=== PATIENT | female | born 1950 | race Caucasian/White ===

== ENCOUNTER 2017-09-17 12:07 | Inpatient (IN) | payer MEDICARE, SELFPAY ==
[2017-09-17 12:10] VITALS: BP 160/91; PULSE 78; PULSE 80; RESP 17; RESP 18; TEMP 36.9; O2SAT 97; O2SAT 98; BMI 29.1
--- NOTE | 2017-09-17 12:27 | ED.DCSUM_ITS ---
- ER Visit Summary Date of Service: 09/17/17 Chief Complaint: Abdominal pain with nausea vomiting History of Present Illness: The patient is a 67 F history of pancreatitis and hypertension. States the last 4-5 days she has had nausea vomiting decreased oral intake. With epigastric abdominal pain. Mild dysuria. No fever. No diarrhea constipation. No melena. She denies any prior abdominal surgeries. Physical Examination: Older female no acute distress. Vital signs are stable afebrile. Pulse ox 90% on room air no signs of hypoxia. HEENT exam shows dry mucous members. Neck nontender no lymphadenopathy. Lungs clear to auscultation bilaterally. Heart regular rate and rhythm no murmur. Abdomen is soft and nondistended. Normal bowel sounds no peritoneal signs. Mild epigastric tenderness. No pulsatile mass. No hernias or masses. No signs of obstruction. Positive bowel sounds. Extremities moves all 4. Neurovascular intact. Back exam nontender. Neurologically she is awake alert without focal motor deficits. Test Results: CBC normal. BMP normal. Liver enzymes are slightly elevated lipase elevated at 3306 consistent with acute pancreatitis. Urine shows 25-50 white cells 1+ bacteria culture was sent. Here ultrasound is a fatty liver but no gallstones or sludge no signs of dilatation. Emergency Department Course and Treatment: Patient will screening labs obtained. She has had multiple CAT scans in the past I do not think that is necessary at this time. She will be treated with IV fluids for dehydration. Zofran for nausea and morphine for pain. Treatment Plan: Patient doing well repeat exam 1525. She will be given additional dose of morphine and be admitted for acute pancreatitis. I spoke to the hospitalist will be evaluated for admission. Disposition: Admission Impression: `Acute abdominal pain with nausea and vomiting urinary to acute and recurrent pancreatitis Dehydration This note was generated with [employer] dictation software. It may contain incorrect words, spelling, and punctuation that were not noted in review of the chart prior to signing ED Disposition - Plan for ED Patient: Chief Complaint: Abd Pain Referrals: Moreno Johnson MD [STAFF PHYSICIAN] -
[2017-09-17] MEDS: Morphine 4 MG/ML Syringe IV (12:50)
[2017-09-17] MEDS: 0.9% Normal Saline 1,000 ML 1000 ML IV (12:50)
[2017-09-17] MEDS: Ondansetron 4 MG/2 ML Vial IV (12:51)
[2017-09-17 13:04] LABS: Absolute Lymphocyte Count 0.42 X10^3/ul (0.83-4.51); Absolute Neutrophil Count 6.8 X10^3/uL (2.0-7.7); Basophil# 0.01 X10^3/uL; Basophil% 0.1 % (0-1); Differential Indicated SCAN CRITERIA MET; Eosinophil# 0.06 X10^3/uL; Eosinophils% 0.8 % (0-5); Hemoglobin 15.7 g/dl (12.0-15.0); Lymphocyte # 0.42 X10^3/ul (4.0); Lymphocyte % 5.4 % (19-41); Mean Corp Hgb Conc 33.4 g/gl (32-36); Mean Corpuscular Hgb 32.8 pg (27.0-32.0); Mean Corpuscular Volume 98.1 fL (81-99); Mean Platelet Vol. 8.8 fl (6.2-12.0); Monocyte# 0.56 X10^3/uL; Monocyte% 7.1 % (0-10); Neutrophil # 6.76 X10^3/uL (2.7-7.7); Neutrophil % 86.2 % (47-70); POSITIVE COUNT NO; POSITIVE DIFFERENTIAL YES; POSITIVE MORPHOLOGY NO; Platelet Count 217 K/mm3 (150-450); RBC Distribution Width CV 14.8 % (11.6-14.6); RBC Distribution Width SD 53.5 fl (35.1-43.9); Red Blood Count 4.79 M/mm3 (4.2-5.4); White Blood Count 7.8 K/mm3 (4.4-11.0)
[2017-09-17 13:22] LABS: AST(SGOT) 129 U/L (15-37); Alanine Aminotransfer ALT/SGPT 87 U/L (13-56); Albumin, Serum 3.5 g/dL (3.2-5.0); Alkaline Phosphatase 248 U/L (45-117); Anion Gap 15 (5-15); BUN 10 mg/dL (7-18); BUN/Creat Ratio 18.6 RATIO (10-20); Calcium,Total 8.9 mg/dL (8.5-10.1); Chloride 100 mmol/L (98-107); Creatinine, Serum 0.54 mg/dL (0.55-1.02); EST Glomerular Filtration Rate 120 mL/min (>60); Est Glom Filt Rate - Afr Amer 145 mL/min (>60); Estimated Creatinine Clearance 47.78 ml/min; Globulin 4.1 g/dL (2.2-4.2); Glucose 90 mg/dL (74-106); Lipase 3306 U/L (73-393); Potassium 4.6 mmol/L (3.5-5.1); Protein, Total 7.6 g/dL (6.4-8.2); Sodium Level 136 mmol/L (136-145)
[2017-09-17 13:35] VITALS: BP 140/72; PULSE 71; RESP 16; O2SAT 95
--- NOTE | 2017-09-17 13:37 | CASEMGMT ---
Social Work Note In to complete initial assessment as pt is an anticipated admission. Introduced self and role at [facility]. Pt known to SW from past admissions. Pt reports to live alone in a two-story home with 22 steps to second floor. States that she mainly lives off of the second floor and slides down the steps due to her back pain. DME consists of a cane which she uses at baseline. Pt states that she has had severe back pain for 4-5 days. Pt has been to [facility] in the past and admits that it helped her to regain strength and she would consider returning if needed. Pt mentions little income and inquire if she has applied for Medicaid. Pt states that she has not, but only makes $323/month through social security. Pt agreeable to submit a Medicaid application and inform that if she completes prior to discharge staff could fax in to [facility] for her. Pt expresses understanding. Denies substance use, although since pt is known to SW from past admissions there is a hx of ETOH abuse. Pt does report symptoms of depression, but denies any diagnoses. Educate to behavioral health through [facility] and pt is agreeable to consult and meeting with them on this admission. Pt claims that she does not have a PCP as her last two had left the [facility]. She has made two appointments with Dr. Watson, but has cancelled them as she has been too painful to transport herself there. Provide the pt with a Medicaid application and list of accepting area PCPs. Pt thanks SW and SW on accepting unit to follow for psychosocial needs. Donna Pardo, SACK LIFTER, RED HAT ENGINEER
[2017-09-17 13:54] LABS: Mucous, Urine 0 SEEN /hpf (<or=2+)
[2017-09-17 13:58] LABS: Color, Urine Yellow (Yellow); Glucose, Dipstick Normal (Normal); Leukocyte Esterase-Dipstick 500 /ul (Negative); Nitrite-Dipstick Negative (Negative); Occult Blood-Urine 10 /ul (Negative); Protein-Dipstick 30 mg/dl (Negative); Specific Gravity, Urine 1.025 (1.002-1.030); Urine Bilirubin Dipstick 1 mg/dL (Negative); Urine Clarity Sl. Cloudy (Clear); Urine Urobilinogen 1 mg/dl (Normal)
[2017-09-17 13:59] LABS: Ketone-Dipstick 150 mg/dl (Negative)
[2017-09-17 14:04] LABS: Bacteria 1+ /hpf (None Seen); Red Blood Cells-Urine 0-5 SEEN /hpf (0-5); Squamous Epithelial Cells - UA 0-5 SEEN /hpf (5-10); White Blood Cells 25-50 SEEN /hpf (0-5)
--- NOTE | 2017-09-17 15:43 | US_ITS ---
STUDY: ABDOMINAL ULTRASOUND - RIGHT UPPER QUADRANT REASON FOR VISIT: Female, 67 years old. Pain. Elevated liver function tests. Abdominal pain. Elevated liver function tests. TECHNIQUE: Ultrasound evaluation of the right upper quadrant was performed with real-time and static worthy-scale imaging. TECHNICAL QUALITY: Adequate. COMPARISON: Ultrasound May 21, 2017. CT May 24, 2017. FINDINGS: Liver: The liver measures 18.7 cm. There is increased echogenicity consistent with fatty infiltration. The bile ducts are within normal limits. There is hepatic color flow. The direction of portal flow is hepatopetal. There is a 1.1 cm cyst in the right lobe. Gallbladder: Normal distended gallbladder. The gallbladder wall measures 2 mm. There is a negative sonographic Anaya's sign. There is no pericholecystic fluid. There are no gallstones. Common Bile Duct (C.B.D.): The common bile duct measures 4 mm. Pancreas: Normal size of the head, body and tail of the pancreas. There is normal echogenicity of the pancreas. There is no demonstrated pancreatic mass or cyst. Right Kidney: Normal size of the right kidney. The right kidney measures 10.3 cm. Normal renal cortex. The right cortex measures 1.3 cm. There is no demonstrated renal mass or cyst. There is no right hydronephrosis. US/Gallbladder IMPRESSION: Fatty infiltration of the liver. No gallstones or biliary dilatation. Electronically Signed: Anil Villatoro MD at 16:58 EDT , Service support ,
[2017-09-17 16:23] VITALS: BP 135/69; PULSE 57; RESP 16; O2SAT 95
[2017-09-17 16:37] VITALS: BP 137/71; PULSE 80; RESP 16; O2SAT 96
[2017-09-17] MEDS: morphine 8 MG/ML Syringe 6 MG IV (16:50)
[2017-09-17 16:56] VITALS: BMI 29.1
--- NOTE | 2017-09-17 17:23 | PCM.HP.STD ---
Problem List (1) Rheumatoid arthritis Status: Chronic (2) Psoriasis Status: Chronic (3) Chronic back pain Status: Chronic Comment: osteoarthritis (4) Magnesium deficiency Status: Chronic (5) Acute pancreatitis Status: Acute (6) Bipolar disorder Status: Chronic (7) Hypothyroidism Status: Chronic History of Present Illness Date of Admission: 09/17/17 Chief Complaint: abdominal pain The patient is a 67 year old F presents with a several day history of abdominal pain. Was not getting better and so presented to the emergency room. Patient had a lipase greater than 3000. Patient said that her symptoms are similar to her previous bouts of pancreatitis. Patient denies any alcohol use and says that her last drink of alcohol was 2 or 3 years ago. It was recommended the patient follow up with gastroenterology in regards to her pancreatitis. This is recommended when I see the patient back in March, patient states that she does not know if she seen a doughnut machine operator helper but thinks that she probably has not. Patient wants to know why she has pancreatitis but does not know if she seen a doughnut machine operator helper or not. [] Past Medical History Past Medical History (Chronic Problems): Chronic Problems Rheumatoid arthritis (Chronic) Psoriasis (Chronic) Chronic back pain (Chronic) osteoarthritis Magnesium deficiency (Chronic) Alcohol intoxication (Chronic) Drug overdose (Chronic) Delusional disorder (Chronic) Bipolar disorder (Chronic) Hypothyroidism (Chronic) Chronic alcohol use (Chronic) Depression with H/o suicidal attempt (Chronic) Allergies nickel [Nickel] Allergy (Verified 09/17/17 12:09) Rash Neuromuscular Blockers, Steroidal [Steroidal Neuromuscular Blockers] Adverse Reaction (Verified 09/17/17 17:07) ACTED WEIRD prochlorperazine edisylate [From Compazine] Adverse Reaction (Verified 09/17/17 12:09) disoriented prochlorperazine maleate [From Compazine] Adverse Reaction (Verified 09/17/17 17:07) DISORIENTED Home Medications: Ambulatory Orders Medication Instructions Recorded Levothyroxine [Synthroid] 75 mcg PO DAILY 01/31/17 Atenolol [Tenormin (beta rené)] 100 mg PO DAILY 05/20/17 Chlordiazepoxide [Librium] 25 mg PO TID PRN PRN #20 cap 05/27/17 Surgical History: no surgical history Psychiatric History: No pertinent psych hx MOTION PICTURE CAMERA OPERATOR History: No pertinent MOTION PICTURE CAMERA OPERATOR history Smoking Status: Current every day smoker Tobacco Use: Cigarettes - *Family History Maternal History Items: Unknown, No pertinent history Paternal History Items: Unknown Review of Systems Constitutional: Reports: Anorexia, Fever. Denies: Night Sweats Eyes: Denies: Blurred vision, Double vision HEENT: Reports: - - tinnitus. Denies: Difficulty Hearing Cardiovascular: Denies: Chest Pain, Chest Pressure Respiratory: Denies: Cough, Shortness of Breath, Shortness of breath at rest Gastrointestinal: Reports: Abdominal Pain, Nausea, Vomiting - with eating solid food. Genitourinary: Denies: Dysuria Musculoskeletal: Denies: Joint Pain, Joint Tenderness Skin: Denies: Rash, Wounds Neurological: Denies: Numbness, Tingling, Focal weakness Psychiatric: Denies: Anxiety, Depression Hematologic/ Lymphatic: Denies: Easy Bruising, Easy Bleeding, Hx of blood clot VTE Information - Inpt Only VTE Present on Admission: No VTE Pharm Prophylaxis ordered?: Yes - Physical Exam General: Alert, Cooperative, No apparent distress HEENT: Atraumatic, Normocephalic Neck: No Nodes, Thyroid Normal Size and Texture Lungs: Clear to auscultation, Normal air movement, No rhonchi, No wheeze Cardiovascular: Regular rate, Regular Rhythm, Normal S1, Normal S2, No murmurs Abdomen: Bowel Sounds Present, Soft, Non-Distended, Tender - But not much abdominal pain with distraction., Pain seems to be more diffuse and really epigastric. Extremities: No edema, No Calf Tenderness Skin: No rashes, No breakdown Psych/Mental Status: Normal Affect, Appropriate Vital Signs Temp Pulse Resp BP Pulse Ox 36.9 C 80 16 137/71 H 96 09/17/17 12:10 09/17/17 16:37 09/17/17 16:37 09/17/17 16:37 09/17/17 16:37 Oxygen Delivery Method Room Air Weight: 79.379 kg Body Mass Index (BMI) 29.1 Finger Stick Blood Glucose 103 Laboratory Tests Past 24 Hrs 09/17/17 09/17/17 09/17/17 12:52 12:52 13:50 WBC 7.8 RBC 4.79 Hgb 15.7 H Hct 47.0 MCV 98.1 MCH 32.8 H MCHC 33.4 RDW 14.8 H RDW Differential 53.5 H Plt Count 217 MPV 8.8 Immature Gran % (Auto) 0.400 Neut % (Auto) 86.2 H Lymph % (Auto) 5.4 L [place] % (Auto) 7.1 Eos % (Auto) 0.8 Baso % (Auto) 0.1 Absolute Neuts (auto) 6.8 Absolute Lymphs (auto) 0.42 L Total Counted Not Reportable Sodium 136 Potassium 4.6 Chloride 100 Carbon Dioxide 21.0 Anion Gap 15 BUN 10 Creatinine 0.54 L Estim Creat Clear Calc 47.78 Est GFR (MDRD) Af Amer 145 Est GFR (MDRD) Non-Af 120 BUN/Creatinine Ratio 18.6 Glucose 90 Calcium 8.9 Total Bilirubin 1.10 H Direct Bilirubin 0.40 H AST 129 H ALT 87 H Alkaline Phosphatase 248 H Total Protein 7.6 Albumin 3.5 Globulin 4.1 Lipase 3306 H Urine Color Yellow Urine Clarity Sl. Cloudy Urine pH 6.0 Ur Specific [place] 1.025 Urine Protein 30 H Urine Glucose (UA) Normal Urine Ketones 150 H Urine Occult Blood 10 H Urine Nitrite Negative Urine Bilirubin 1 H Urine Urobilinogen 1 H Ur Leukocyte Esterase 500 H Urine RBC 0-5 SEEN Urine WBC 25-50 SEEN Ur Squamous Epith Cells 0-5 SEEN Urine Bacteria 1+ Urine Mucus 0 SEEN Assessment/Plan 1. Acute pancreatitis Ultrasound was negative for any gallstones. Patient denies any alcohol the past 2 or 3 years and patient's last documented positive alcohol level was in 2014. Patient has a reported diagnosis of multiple autoimmune diseases, such as rheumatoid arthritis and psoriasis. The patient has had a positive NAIN but it did not specify the titer but negative anti-CCP and RF Patient was recommended to follow-up with gastroenterology when I had seen her in March 2017. Seems the patient has not actually seen gastroenterology stating that it is difficult her for her to go to doctors even though that was 6 months ago. If still continue to recommend that she follow gastroenterology for further evaluation and see if she has some anatomic derangements causing this pancreatitis or even possibly an autoimmune process. 2. Dysphagia She underwent upper endoscopy back in January 2017 that showed showed some gastritis. No other abnormality was noted and patient was negative for H. pylori. Patient endorsing that she still having issues regards to solid food. 3. Rheumatoid arthritis, psoriasis. Recommend patient follow-up with rheumatology as outpatient. 4. DVT proph: LMWH. Code Visit Inpatient E&M: 80365 Init Hosp L2
--- NOTE | 2017-09-17 17:34 | HP.PCM_ITS ---
Problem List (1) Rheumatoid arthritis Status: Chronic (2) Psoriasis Status: Chronic (3) Chronic back pain Status: Chronic Comment: osteoarthritis (4) Magnesium deficiency Status: Chronic (5) Acute pancreatitis Status: Acute (6) Bipolar disorder Status: Chronic (7) Hypothyroidism Status: Chronic History of Present Illness Date of Admission: 09/17/17 Chief Complaint: abdominal pain The patient is a 67 year old F presents with a several day history of abdominal pain. Was not getting better and so presented to the emergency room. Patient had a lipase greater than 3000. Patient said that her symptoms are similar to her previous bouts of pancreatitis. Patient denies any alcohol use and says that her last drink of alcohol was 2 or 3 years ago. It was recommended the patient follow up with gastroenterology in regards to her pancreatitis. This is recommended when I see the patient back in March, patient states that she does not know if she seen a protective signal repairer helper but thinks that she probably has not. Patient wants to know why she has pancreatitis but does not know if she seen a protective signal repairer helper or not. [] Past Medical History Past Medical History (Chronic Problems): Chronic Problems Rheumatoid arthritis (Chronic) Psoriasis (Chronic) Chronic back pain (Chronic) osteoarthritis Magnesium deficiency (Chronic) Alcohol intoxication (Chronic) Drug overdose (Chronic) Delusional disorder (Chronic) Bipolar disorder (Chronic) Hypothyroidism (Chronic) Chronic alcohol use (Chronic) Depression with H/o suicidal attempt (Chronic) Allergies nickel [Nickel] Allergy (Verified 09/17/17 12:09) Rash Neuromuscular Blockers, Steroidal [Steroidal Neuromuscular Blockers] Adverse Reaction (Verified 09/17/17 17:07) ACTED WEIRD prochlorperazine edisylate [From Compazine] Adverse Reaction (Verified 09/17/17 12:09) disoriented prochlorperazine maleate [From Compazine] Adverse Reaction (Verified 09/17/17 17 :07) DISORIENTED Home Medications: Ambulatory Orders Medication Instructions Recorded Levothyroxine [Synthroid] 75 mcg PO DAILY 01/31/17 Atenolol [Tenormin (beta rené)] 100 mg PO DAILY 05/20/17 Chlordiazepoxide [Librium] 25 mg PO TID PRN PRN #20 cap 05/27/17 Surgical History: no surgical history Psychiatric History: No pertinent psych hx RESIDENTIAL TREATMENT STAFF History: No pertinent RESIDENTIAL TREATMENT STAFF history Smoking Status: Current every day smoker Tobacco Use: Cigarettes - *Family History Maternal History Items: Unknown, No pertinent history Paternal History Items: Unknown Review of Systems Constitutional: Reports: Anorexia, Fever. Denies: Night Sweats Eyes: Denies: Blurred vision, Double vision HEENT: Reports: - - tinnitus. Denies: Difficulty Hearing Cardiovascular: Denies: Chest Pain, Chest Pressure Respiratory: Denies: Cough, Shortness of Breath, Shortness of breath at rest Gastrointestinal: Reports: Abdominal Pain, Nausea, Vomiting - with eating solid food. Genitourinary: Denies: Dysuria Musculoskeletal: Denies: Joint Pain, Joint Tenderness Skin: Denies: Rash, Wounds Neurological: Denies: Numbness, Tingling, Focal weakness Psychiatric: Denies: Anxiety, Depression Hematologic/ Lymphatic: Denies: Easy Bruising, Easy Bleeding, Hx of blood clot VTE Information - Inpt Only VTE Present on Admission: No VTE Pharm Prophylaxis ordered?: Yes - Physical Exam General: Alert, Cooperative, No apparent distress HEENT: Atraumatic, Normocephalic Neck: No Nodes, Thyroid Normal Size and Texture Lungs: Clear to auscultation, Normal air movement, No rhonchi, No wheeze Cardiovascular: Regular rate, Regular Rhythm, Normal S1, Normal S2, No murmurs Abdomen: Bowel Sounds Present, Soft, Non-Distended, Tender - But not much abdominal pain with distraction., Pain seems to be more diffuse and really epigastric. Extremities: No edema, No Calf Tenderness Skin: No rashes, No breakdown Psych/Mental Status: Normal Affect, Appropriate Vital Signs Temp Pulse Resp BP Pulse Ox 36.9 C 80 16 137/71 H 96 09/17/17 12:10 09/17/17 16:37 09/17/17 16:37 09/17/17 16:37 09/17/17 16:37 Oxygen Delivery Method Room Air Weight: 79.379 kg Body Mass Index (BMI) 29.1 Finger Stick Blood Glucose 103 Laboratory Tests Past 24 Hrs 09/17/17 09/17/17 09/17/17 12:52 12:52 13:50 WBC 7.8 RBC 4.79 Hgb 15.7 H Hct 47.0 MCV 98.1 MCH 32.8 H MCHC 33.4 RDW 14.8 H RDW Differential 53.5 H Plt Count 217 MPV 8.8 Immature Gran % (Auto) 0.400 Neut % (Auto) 86.2 H Lymph % (Auto) 5.4 L [place] % (Auto) 7.1 Eos % (Auto) 0.8 Baso % (Auto) 0.1 Absolute Neuts (auto) 6.8 Absolute Lymphs (auto) 0.42 L Total Counted Not Reportable Sodium 136 Potassium 4.6 Chloride 100 Carbon Dioxide 21.0 Anion Gap 15 BUN 10 Creatinine 0.54 L Estim Creat Clear Calc 47.78 Est GFR (MDRD) Af Amer 145 Est GFR (MDRD) Non-Af 120 BUN/Creatinine Ratio 18.6 Glucose 90 Calcium 8.9 Total Bilirubin 1.10 H Direct Bilirubin 0.40 H AST 129 H ALT 87 H Alkaline Phosphatase 248 H Total Protein 7.6 Albumin 3.5 Globulin 4.1 Lipase 3306 H Urine Color Yellow Urine Clarity Sl. Cloudy Urine pH 6.0 Ur Specific [place] 1.025 Urine Protein 30 H Urine Glucose (UA) Normal Urine Ketones 150 H Urine Occult Blood 10 H Urine Nitrite Negative Urine Bilirubin 1 H Urine Urobilinogen 1 H Ur Leukocyte Esterase 500 H Urine RBC 0-5 SEEN Urine WBC 25-50 SEEN Ur Squamous Epith Cells 0-5 SEEN Urine Bacteria 1+ Urine Mucus 0 SEEN Assessment/Plan 1. Acute pancreatitis * Ultrasound was negative for any gallstones. * Patient denies any alcohol the past 2 or 3 years and patient's last documented positive alcohol level was in 2014. * Patient has a reported diagnosis of multiple autoimmune diseases, such as rheumatoid arthritis and psoriasis. The patient has had a positive NAIN but it did not specify the titer but negative anti-CCP and RF * Patient was recommended to follow-up with gastroenterology when I had seen her in March 2017. Seems the patient has not actually seen gastroenterology stating that it is difficult her for her to go to doctors even though that was 6 months ago. If still continue to recommend that she follow gastroenterology for further evaluation and see if she has some anatomic derangements causing this pancreatitis or even possibly an autoimmune process. 2. Dysphagia * She underwent upper endoscopy back in January 2017 that showed showed some gastritis. No other abnormality was noted and patient was negative for H. pylori. * Patient endorsing that she still having issues regards to solid food. 3. Rheumatoid arthritis, psoriasis. * Recommend patient follow-up with rheumatology as outpatient. 4. DVT proph: LMWH. Code Visit Inpatient E&M: 44250 Init Hosp L2
[2017-09-17 18:41] VITALS: BMI 25.5
[2017-09-17 18:42] VITALS: BP 125/59; PULSE 72; RESP 16; TEMP 36.8; O2SAT 98
[2017-09-17] MEDS: 0.9% Normal Saline 1,000 ML 150 ML IV (20:35)
[2017-09-17] MEDS: chlordiazePOXIDE 25 MG Capsule PO (23:01)
[2017-09-17] MEDS: HYDROcodone Bitartrate/Apap 5/325 Tablet PO (23:19)
[2017-09-17 23:29] VITALS: BP 123/71; PULSE 70; RESP 17; TEMP 36.5; O2SAT 97
[2017-09-18] MEDS: 0.9% Normal Saline 1,000 ML 150 ML IV ×4 (01:38→21:57)
[2017-09-18 03:06] VITALS: BP 140/74; PULSE 71; RESP 17; TEMP 36.1; O2SAT 96
[2017-09-18] MEDS: Morphine 2 MG/ML Syringe IV ×4 (03:13→21:59)
[2017-09-18] MEDS: Levothyroxine 75 MCG Tablet PO (05:25)
[2017-09-18] MEDS: HYDROcodone Bitartrate/Apap 5/325 Tablet PO ×3 (06:10→19:44)
[2017-09-18] MEDS: chlordiazePOXIDE 25 MG Capsule PO ×2 (06:12→15:16)
[2017-09-18 06:32] LABS: ALB/GLOB Ratio 0.8 RATIO (0.9-2.4); AST(SGOT) 72 U/L (15-37); Alanine Aminotransfer ALT/SGPT 61 U/L (13-56); Albumin, Serum 2.7 g/dL (3.2-5.0); Alkaline Phosphatase 180 U/L (45-117); Anion Gap 12 (5-15); BUN 8 mg/dL (7-18); BUN/Creat Ratio 16.4 RATIO (10-20); Calcium,Total 7.7 mg/dL (8.5-10.1); Chloride 105 mmol/L (98-107); Creatinine, Serum 0.49 mg/dL (0.55-1.02); EST Glomerular Filtration Rate 134 mL/min (>60); Est Glom Filt Rate - Afr Amer 162 mL/min (>60); Estimated Creatinine Clearance 47.78 ml/min; Globulin 3.6 g/dL (2.2-4.2); Glucose 88 mg/dL (74-106); Lipase 1275 U/L (73-393); Protein, Total 6.3 g/dL (6.4-8.2); Sodium Level 139 mmol/L (136-145)
[2017-09-18 08:00] VITALS: BP 135/85; PULSE 70; RESP 16; TEMP 36.5; O2SAT 96
[2017-09-18] MEDS: Atenolol 100 MG Tablet PO (08:09)
[2017-09-18] MEDS: Enoxaparin 40 MG/0.4 ML Syringe SC (08:09)
--- NOTE | 2017-09-18 09:46 | CASEMGMT ---
Social Work Note SW met with pt to follow up with discharge planning. Health Tech Kirsten Pardo, PROFESSIONAL SKATEBOARDER, SNUFF PACKING MACHINE OPERATOR saw pt in ED for initial assessment. SW confirmed with pt that she is agreeable for behavior health referral and pt is. SW asked pt if she had completed the medicaid application that was provided to her and pt states she hasn't yet. SW states that if she would like this worker to assist her with completing it to let staff know and if she does complete it to let staff know and this worker will fax in the application to [facility]. Pt was receptive to this and states understanding. Pt denied needing assistance to complete application at this time. SAM placed call to [facility] Behavior[facility] and gave referral to Pantera who states that he will see pt today. Pt's plan is to return home at discharge. Plan: Behavioral Health to see pt today. Pt return home at discharge Jeanette Wright PROFESSIONAL SKATEBOARDER, SNUFF PACKING MACHINE OPERATOR
[2017-09-18] MEDS: 0.9% NaCl Peripheral Flush Adult/Peds IV ×2 (11:09→15:17)
--- NOTE | 2017-09-18 13:23 | PCM.PROGNOTE ---
Subjective: Patient seen and examined. Tolerating clear liquid diet. Denies nausea, emesis. States abdominal pain is improved. Denies other complaints. - Physical Exam General: Alert, Oriented x3, Cooperative, No apparent distress HEENT: Atraumatic, PERRLA, EOMI, Normocephalic Neck: Supple, No JVD, Negative Carotid Bruits Lungs: Clear to auscultation, Normal air movement Cardiovascular: Regular rate, Regular Rhythm, Normal S1, Normal S2, No murmurs Abdomen: Bowel Sounds Present, Soft, Non-Distended, Tender Extremities: No clubbing, No cyanosis, No edema, Capillary Refill Less than 3 Seconds Skin: No rashes, No breakdown Musculoskeletal: No Tenderness to Palpation of Joints or Extremities Neurological: Cranial nerves II-XII grossly intact, Neuro grossly intact Psych/Mental Status: Normal Affect, Appropriate Vital Signs Temp Pulse Resp BP Pulse Ox 97.7 F L 70 16 135/85 H 96 09/18/17 08:00 09/18/17 08:00 09/18/17 08:00 09/18/17 08:00 09/18/17 08:00 Oxygen Delivery Method Room Air Weight: 69.717 kg Body Mass Index (BMI) 25.5 Intake and Output for Last 24 Hours 09/16/17 09/17/17 09/18/17 23:59 23:59 23:59 Intake Total 1105 / 1105 1958 / 1958 Output Total 400 / 400 Balance 1105 / 1105 1558 / 1558 Laboratory Tests Past 24 Hrs 09/18/17 05:05 Sodium 139 Potassium 4.0 Chloride 105 Carbon Dioxide 22.0 Anion Gap 12 BUN 8 Creatinine 0.49 L Estim Creat Clear Calc 47.78 Est GFR (MDRD) Af Amer 162 Est GFR (MDRD) Non-Af 134 BUN/Creatinine Ratio 16.4 Glucose 88 Calcium 7.7 L Total Bilirubin 0.70 AST 72 H ALT 61 H Alkaline Phosphatase 180 H Total Protein 6.3 L Albumin 2.7 L Globulin 3.6 Albumin/Globulin Ratio 0.8 L Lipase 1275 H Medical Necessity - Tobacco Use Smoking Status: Current every day smoker Tobacco Use: Cigarettes Assessment/Plan 1. 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 Gallbladder ultrasound on admission showed fatty infiltration of liver. No gallstones or biliary dilatation. CT of abdomen previously May 2017 showed acute pancreatitis, no other abnormality. Patient denies recent alcohol use and states she has not drank alcohol since she was a kid. However, she was admitted May 2017 for alcohol withdrawal, alcoholic encephalopathy and acute recurrent pancreatitis. No alcohol level was drawn on admission. Patient was recommended to follow-up with gastroenterology at previous discharge and has failed to follow-up. She states it is difficult for her to get to appointments. Check IgG subclass 4. Discussed with patient importance of outpatient follow-up with gastroenterology to establish the etiology of recurrent pancreatitis. Continue clear liquid diet. IV fluids. Lipase reduced to 1275 from 3306 on admission. Trend lipase. AST/ALT trending down. Alkaline phosphatase trending down. Continue to monitor. Continue as needed morphine for pain and Zofran as needed for nausea. 2. Dysphasia, chronic-patient states this has been ongoing. Upper endoscopy in January 2017 showed gastritis. No other abnormality. Negative for H. pylori. Patient states she continues to feel like food is getting stuck. Consult speech therapy. 3. History of chronic alcohol use-denies recent use. Behavioral health to assess patient today. No alcohol level drawn on admission. 4. Tobacco dependence-encourage smoking cessation. 5. Hypertension-stable, continue home atenolol regimen. 6. Hypothyroidism-continue Synthroid. 7. Rheumatoid arthritis/psoriasis-previously on prednisone/methotrexate regimen. Fails to follow-up with timber management technician. Recommend continued outpatient follow-up. 8. Depression/bipolar disorder-history of suicidal attempt. Not on home regimen. Behavioral health to assess patient today. DVT prophylaxis-Lovenox subcu. Discharge planning: Patient wishes to be discharged to shelter facility. CM involved. This patient was seen by CLAUDIA Roblero under the supervision of Dr. Ruggiero.
--- NOTE | 2017-09-18 13:44 | PN_ITS ---
Subjective: Patient seen and examined. Tolerating clear liquid diet. Denies nausea, emesis. States abdominal pain is improved. Denies other complaints. - Physical Exam General: Alert, Oriented x3, Cooperative, No apparent distress HEENT: Atraumatic, PERRLA, EOMI, Normocephalic Neck: Supple, No JVD, Negative Carotid Bruits Lungs: Clear to auscultation, Normal air movement Cardiovascular: Regular rate, Regular Rhythm, Normal S1, Normal S2, No murmurs Abdomen: Bowel Sounds Present, Soft, Non-Distended, Tender Extremities: No clubbing, No cyanosis, No edema, Capillary Refill Less than 3 Seconds Skin: No rashes, No breakdown Musculoskeletal: No Tenderness to Palpation of Joints or Extremities Neurological: Cranial nerves II-XII grossly intact, Neuro grossly intact Psych/Mental Status: Normal Affect, Appropriate Vital Signs Temp Pulse Resp BP Pulse Ox 97.7 F L 70 16 135/85 H 96 09/18/17 08:00 09/18/17 08:00 09/18/17 08:00 09/18/17 08:00 09/18/17 08:00 Oxygen Delivery Method Room Air Weight: 69.717 kg Body Mass Index (BMI) 25.5 Intake and Output for Last 24 Hours 09/16/17 09/17/17 09/18/17 23:59 23:59 23:59 Intake Total 1105 / 1105 1958 / 1958 Output Total 400 / 400 Balance 1105 / 1105 1558 / 1558 Laboratory Tests Past 24 Hrs 09/18/17 05:05 Sodium 139 Potassium 4.0 Chloride 105 Carbon Dioxide 22.0 Anion Gap 12 BUN 8 Creatinine 0.49 L Estim Creat Clear Calc 47.78 Est GFR (MDRD) Af Amer 162 Est GFR (MDRD) Non-Af 134 BUN/Creatinine Ratio 16.4 Glucose 88 Calcium 7.7 L Total Bilirubin 0.70 AST 72 H ALT 61 H Alkaline Phosphatase 180 H Total Protein 6.3 L Albumin 2.7 L Globulin 3.6 Albumin/Globulin Ratio 0.8 L Lipase 1275 H Medical Necessity - Tobacco Use Smoking Status: Current every day smoker Tobacco Use: Cigarettes Assessment/Plan 1. 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 Gallbladder ultrasound on admission showed fatty infiltration of liver. No gallstones or biliary dilatation. CT of abdomen previously May 2017 showed acute pancreatitis, no other abnormality. Patient denies recent alcohol use and states she has not drank alcohol since she was a kid. However, she was admitted May 2017 for alcohol withdrawal , alcoholic encephalopathy and acute recurrent pancreatitis. No alcohol level was drawn on admission. Patient was recommended to follow-up with gastroenterology at previous discharge and has failed to follow-up. She states it is difficult for her to get to appointments. Check IgG subclass 4. Discussed with patient importance of outpatient follow-up with gastroenterology to establish the etiology of recurrent pancreatitis. Continue clear liquid diet. IV fluids. Lipase reduced to 1275 from 3306 on admission. Trend lipase. AST/ALT trending down. Alkaline phosphatase trending down. Continue to monitor. Continue as needed morphine for pain and Zofran as needed for nausea. 2. Dysphasia, chronic-patient states this has been ongoing. Upper endoscopy in January 2017 showed gastritis. No other abnormality. Negative for H. pylori. Patient states she continues to feel like food is getting stuck. Consult speech therapy. 3. History of chronic alcohol use-denies recent use. Behavioral health to assess patient today. No alcohol level drawn on admission. 4. Tobacco dependence-encourage smoking cessation. 5. Hypertension-stable, continue home atenolol regimen. 6. Hypothyroidism-continue Synthroid. 7. Rheumatoid arthritis/psoriasis-previously on prednisone/methotrexate regimen. 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 Recommend continued outpatient follow-up. 8. Depression/bipolar disorder-history of suicidal attempt. Not on home regimen. Behavioral health to assess patient today. DVT prophylaxis-Lovenox subcu. Discharge planning: Patient wishes to be discharged to [facility] facility. CM involved. This patient was seen by CLAUDIA Roblero under the supervision of Dr. Ruggiero.
--- NOTE | 2017-09-18 14:30 | BH.NOTE ---
BH: Inpatient Note - Notes Behavioral Health Inpatient Note: 09/18/17 14:30 Referral to [facility] due to depressive symptoms. Met with pt in her room. Alert and oriented. Pleasant and cooperative. Denies any suicidal ideations, plan, or intent. Denies any HI or psychosis. Hx of Alcohol abuse however pt denies any recent alcohol use. Not currently linked with providers. Hx of treatment at [facility] with last appointment 4 years ago. 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 She has a folder with educational pamphlets on auto-immune conditions, journal articles on effects of nickel on women, and information on appropriate levels of nickel in the water. She discussed how her father was allergic to nickel and she believes that some of her chronic medical conditions are the result of her nickel allergy (with the belief she has consumed nickel through the water). She has verbalized this to all of her providers. She reports that it is frustrating that her symptoms aren't improving. In her papers she also has information on conversion reactions. We talked about this for several minutes. Admits to isolating at home and dwelling and ruminating on somatic concerns which ultimately increase her depression, anxiety, and make her medical symptoms worse. SHows some insights however is reluctant to follow-up with outpatient appointments. Primary obstacles are reported to be mobility and pain. Reports that she has trouble getting to outpatient appointments on a consistent basis. We discussed outpatient options. Gave her referrals to [facility] and [facility] which are minutes from her house. Gave her [facility] resources which she could periodically attend to decrease isolation. Recommended decreasing isolation which would improve mood and decrease rumination on somatic issues. Will talk with social work as [facility] could be helpful.
[2017-09-18 15:07] VITALS: BP 132/73; PULSE 69; RESP 16; TEMP 37.2; O2SAT 96
[2017-09-18 15:35] LABS: Mucous, Urine 0 SEEN /hpf (<or=2+); Red Blood Cells-Urine 0 SEEN /hpf (0-5); Squamous Epithelial Cells - UA 0 SEEN /hpf (5-10); White Blood Cells 0 SEEN /hpf (0-5)
[2017-09-18 15:39] LABS: Color, Urine Yellow (Yellow); Glucose, Dipstick Normal (Normal); Ketone-Dipstick 50 mg/dl (Negative); Leukocyte Esterase-Dipstick Negative /ul (Negative); Nitrite-Dipstick Positive (Negative); Occult Blood-Urine Negative /ul (Negative); Protein-Dipstick Negative (Negative); Specific Gravity, Urine 1.015 (1.002-1.030); Urine Bilirubin Dipstick Negative (Negative); Urine Clarity Clear (Clear); Urine Urobilinogen 1 mg/dl (Normal)
[2017-09-18 15:52] LABS: Bacteria 2+ /hpf (None Seen)
[2017-09-18 21:48] VITALS: BP 156/82; PULSE 79; RESP 14; TEMP 36.5; O2SAT 100
[2017-09-19] MEDS: chlordiazePOXIDE 25 MG Capsule PO ×3 (00:14→15:23)
[2017-09-19] MEDS: Temazepam 15 MG Capsule PO (00:14)
[2017-09-19] MEDS: 0.9% Normal Saline 1,000 ML 150 ML IV ×2 (04:30→11:22)
[2017-09-19 05:03] VITALS: BP 166/92; PULSE 84; RESP 18; TEMP 36.4; O2SAT 97
[2017-09-19] MEDS: Morphine 2 MG/ML Syringe IV (05:04)
[2017-09-19] MEDS: 0.9% NaCl Peripheral Flush Adult/Peds IV (05:05)
[2017-09-19] MEDS: Levothyroxine 75 MCG Tablet PO (05:10)
[2017-09-19 07:28] LABS: ALB/GLOB Ratio 0.7 RATIO (0.9-2.4); AST(SGOT) 73 U/L (15-37); Alanine Aminotransfer ALT/SGPT 53 U/L (13-56); Albumin, Serum 2.3 g/dL (3.2-5.0); Alkaline Phosphatase 202 U/L (45-117); Anion Gap 8 (5-15); BUN 3 mg/dL (7-18); BUN/Creat Ratio 10.2 RATIO (10-20); Calcium,Total 7.9 mg/dL (8.5-10.1); Chloride 112 mmol/L (98-107); Creatinine, Serum 0.29 mg/dL (0.55-1.02); EST Glomerular Filtration Rate 240 mL/min (>60); Est Glom Filt Rate - Afr Amer 290 mL/min (>60); Estimated Creatinine Clearance 47.78 ml/min; Globulin 3.3 g/dL (2.2-4.2); Glucose 90 mg/dL (74-106); Lipase 814 U/L (73-393); Potassium 3.6 mmol/L (3.5-5.1); Protein, Total 5.6 g/dL (6.4-8.2); Sodium Level 143 mmol/L (136-145)
[2017-09-19 08:00] VITALS: BP 157/83; PULSE 78; RESP 16; TEMP 36.6; O2SAT 95
[2017-09-19] MEDS: HYDROcodone Bitartrate/Apap 5/325 Tablet PO ×3 (08:03→21:20)
[2017-09-19] MEDS: Atenolol 100 MG Tablet PO (08:04)
[2017-09-19] MEDS: Enoxaparin 40 MG/0.4 ML Syringe SC (08:05)
--- NOTE | 2017-09-19 10:30 | CASEMGMT ---
Addendum entered by Jeanette Wrigth 09/19/17 10:53: SW placed call to Tish and per Tish she would have a bed in TCU for tomorrow. SW informed pt that pt will be ready for discharge tomorrow. Tish states that she will have to check pt's information and will get back with this worker. Tish states though that if everything checks out with pt, she will be able to come to TCU tomorrow. SW informed pt of this. Plan: TCU Tomorrow Original Note: Social Work Note SW met with pt to discuss discharge planning. Pt states that she can't go home at this time and is asking about placement. Pt states that she has been at [facility] before but states that she doesn't want to go back there. SW informed pt of other facilities located in [place]. Pt states that she would like to try the TCU in the hospital. SW states that this worker will have to check with bed availability and will let pt know. SW placed call to Cee in TCU and left a message. SW attempted to call Tish but this worker got a busy tone. SW will continue to try to get a hold of either Cee or Tish to ask about bed availability. Careers Adviser will continue to follow to assist with discharge planning. Plan: TCU pending acceptance Jeanette Wright REGIONAL DRIVER, OPEN SOAPER TENDER
--- NOTE | 2017-09-19 11:21 | PCM.PROGNOTE ---
Subjective: Patient seen and examined. Complains of generalized abdominal pain. States oral pain medication does not work for her and that IV morphine as the only thing that helps her pain. She is tolerating diet without nausea, emesis. She is agreeable to TCU at discharge. - Physical Exam General: Alert, Oriented x3, Cooperative, No apparent distress HEENT: Atraumatic, PERRLA, EOMI, Normocephalic Neck: Supple, No JVD, Negative Carotid Bruits Lungs: Clear to auscultation, Normal air movement Cardiovascular: Regular rate, Regular Rhythm, Normal S1, Normal S2, No murmurs Abdomen: Bowel Sounds Present, Soft, Non-Distended, Tender - Generalized TTP. Extremities: No clubbing, No cyanosis, No edema, Capillary Refill Less than 3 Seconds Skin: No rashes, No breakdown Musculoskeletal: No Tenderness to Palpation of Joints or Extremities Neurological: Cranial nerves II-XII grossly intact, Neuro grossly intact Psych/Mental Status: Anxious, Depressed Vital Signs Temp Pulse Resp BP Pulse Ox 97.9 F 78 16 157/83 H 95 09/19/17 08:00 09/19/17 08:00 09/19/17 08:00 09/19/17 08:00 09/19/17 08:00 Oxygen Delivery Method Room Air Weight: 69.717 kg Body Mass Index (BMI) 25.5 Intake and Output for Last 24 Hours 09/17/17 09/18/17 09/19/17 23:59 23:59 23:59 Intake Total 1105 / 1105 2673 / 2673 3250 / 3250 Output Total 630 / 630 300 / 300 Balance 1105 / 1105 2043 / 2043 2950 / 2950 Laboratory Tests Past 24 Hrs 09/18/17 09/19/17 09/19/17 15:25 05:10 05:10 Sodium 143 Potassium 3.6 Chloride 112 H Carbon Dioxide 23.0 Anion Gap 8 BUN 3 L Creatinine 0.29 L Estim Creat Clear Calc 47.78 Est GFR (MDRD) Af Amer 290 Est GFR (MDRD) Non-Af 240 BUN/Creatinine Ratio 10.2 Glucose 90 Calcium 7.9 L Total Bilirubin 0.50 AST 73 H ALT 53 Alkaline Phosphatase 202 H Total Protein 5.6 L Albumin 2.3 L Globulin 3.3 Albumin/Globulin Ratio 0.7 L Lipase 814 H Urine Color Yellow Urine Clarity Clear Urine pH 6.0 Ur Specific [place] 1.015 Urine Protein Negative Urine Glucose (UA) Normal Urine Ketones 50 H Urine Occult Blood Negative Urine Nitrite Positive H Urine Bilirubin Negative Urine Urobilinogen 1 H Ur Leukocyte Esterase Negative Urine RBC 0 SEEN Urine WBC 0 SEEN Ur Squamous Epith Cells 0 SEEN Urine Bacteria 2+ Urine Mucus 0 SEEN IgG Total Pending IgG1 Pending IgG2 Pending IgG3 Pending IgG4 Pending Medical Necessity - Tobacco Use Smoking Status: Current every day smoker Tobacco Use: Cigarettes Assessment/Plan 1. 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 Suspect alcoholic pancreatitis given improvement and liver profile. Gallbladder ultrasound on admission showed fatty infiltration of liver. No gallstones or biliary dilatation. CT of abdomen previously May 2017 showed acute pancreatitis, no other abnormality. Patient denies recent alcohol use and states she has not drank alcohol since she was a kid. However, she was admitted May 2017 for alcohol withdrawal, alcoholic encephalopathy and acute recurrent pancreatitis. No alcohol level was drawn on admission. Patient was recommended to follow-up with gastroenterology at previous discharge and has failed to follow-up. She states it is difficult for her to get to appointments. IgG subclass 4 pending. Discussed with patient importance of outpatient follow-up with gastroenterology to establish the etiology of recurrent pancreatitis. Patient tolerating low-fat diet. Lipase reduced to 814 from 3306 on admission. Continue as needed pain regimen and anti-emetics. Behavioral health assessed patient due to depression. She denied recent alcohol use to them as well. 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 2. Dysphasia, chronic-patient states this has been ongoing. Upper endoscopy in January 2017 showed gastritis. No other abnormality. Negative for H. pylori. Patient states she continues to feel like food is getting stuck. Speech therapy evaluation pending. 3. History of chronic alcohol use/alcoholic hepatitis-denies recent use. AST 129/ALT 87 on admission. ALT now within normal limits. AST 73. Suspect patient is continuing to use alcohol. 4. Tobacco dependence-encourage smoking cessation. 5. Hypertension-stable, continue home atenolol regimen. 6. Hypothyroidism-continue Synthroid. Check TSH. 7. Rheumatoid arthritis/psoriasis-previously on prednisone/methotrexate regimen. 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 Recommend continued outpatient follow-up. 8. Depression/bipolar disorder-history of suicidal attempt. Not on home regimen. Behavioral health assessed patient. She was given referrals for [facility] and [facility] as well as [facility]. Continue outpatient follow-up. DVT prophylaxis-Lovenox subcu. Discharge planning: TCU at discharge pending qualifying stay. DC tomorrow. This patient was seen by CLAUDIA Roblero under the supervision of Dr. Ruggiero.
--- NOTE | 2017-09-19 11:32 | PN_ITS ---
Subjective: Patient seen and examined. Complains of generalized abdominal pain. States oral pain medication does not work for her and that IV morphine as the only thing that helps her pain. She is tolerating diet without nausea, emesis. She is agreeable to TCU at discharge. - Physical Exam General: Alert, Oriented x3, Cooperative, No apparent distress HEENT: Atraumatic, PERRLA, EOMI, Normocephalic Neck: Supple, No JVD, Negative Carotid Bruits Lungs: Clear to auscultation, Normal air movement Cardiovascular: Regular rate, Regular Rhythm, Normal S1, Normal S2, No murmurs Abdomen: Bowel Sounds Present, Soft, Non-Distended, Tender - Generalized TTP. Extremities: No clubbing, No cyanosis, No edema, Capillary Refill Less than 3 Seconds Skin: No rashes, No breakdown Musculoskeletal: No Tenderness to Palpation of Joints or Extremities Neurological: Cranial nerves II-XII grossly intact, Neuro grossly intact Psych/Mental Status: Anxious, Depressed Vital Signs Temp Pulse Resp BP Pulse Ox 97.9 F 78 16 157/83 H 95 09/19/17 08:00 09/19/17 08:00 09/19/17 08:00 09/19/17 08:00 09/19/17 08:00 Oxygen Delivery Method Room Air Weight: 69.717 kg Body Mass Index (BMI) 25.5 Intake and Output for Last 24 Hours 09/17/17 09/18/17 09/19/17 23:59 23:59 23:59 Intake Total 1105 / 1105 2673 / 2673 3250 / 3250 Output Total 630 / 630 300 / 300 Balance 1105 / 1105 2043 / 2043 2950 / 2950 Laboratory Tests Past 24 Hrs 09/18/17 09/19/17 09/19/17 15:25 05:10 05:10 Sodium 143 Potassium 3.6 Chloride 112 H Carbon Dioxide 23.0 Anion Gap 8 BUN 3 L Creatinine 0.29 L Estim Creat Clear Calc 47.78 Est GFR (MDRD) Af Amer 290 Est GFR (MDRD) Non-Af 240 BUN/Creatinine Ratio 10.2 Glucose 90 Calcium 7.9 L Total Bilirubin 0.50 AST 73 H ALT 53 Alkaline Phosphatase 202 H Total Protein 5.6 L Albumin 2.3 L Globulin 3.3 Albumin/Globulin Ratio 0.7 L Lipase 814 H Urine Color Yellow Urine Clarity Clear Urine pH 6.0 Ur Specific [place] 1.015 Urine Protein Negative Urine Glucose (UA) Normal Urine Ketones 50 H Urine Occult Blood Negative Urine Nitrite Positive H Urine Bilirubin Negative Urine Urobilinogen 1 H Ur Leukocyte Esterase Negative Urine RBC 0 SEEN Urine WBC 0 SEEN Ur Squamous Epith Cells 0 SEEN Urine Bacteria 2+ Urine Mucus 0 SEEN IgG Total Pending IgG1 Pending IgG2 Pending IgG3 Pending IgG4 Pending Medical Necessity - Tobacco Use Smoking Status: Current every day smoker Tobacco Use: Cigarettes Assessment/Plan 1. 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 Suspect alcoholic pancreatitis given improvement and liver profile. Gallbladder ultrasound on admission showed fatty infiltration of liver. No gallstones or biliary dilatation. CT of abdomen previously May 2017 showed acute pancreatitis, no other abnormality. Patient denies recent alcohol use and states she has not drank alcohol since she was a kid. However, she was admitted May 2017 for alcohol withdrawal, alcoholic encephalopathy and acute recurrent pancreatitis. No alcohol level was drawn on admission. Patient was recommended to follow-up with gastroenterology at previous discharge and has failed to follow-up. She states it is difficult for her to get to appointments. IgG subclass 4 pending. Discussed with patient importance of outpatient follow-up with gastroenterology to establish the etiology of recurrent pancreatitis. Patient tolerating low-fat diet. Lipase reduced to 814 from 3306 on admission. Continue as needed pain regimen and anti -emetics. Behavioral health assessed patient due to depression. She denied recent alcohol use to them as well. 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 2. Dysphasia, chronic-patient states this has been ongoing. Upper endoscopy in January 2017 showed gastritis. No other abnormality. Negative for H. pylori. Patient states she continues to feel like food is getting stuck. Speech therapy evaluation pending. 3. History of chronic alcohol use/alcoholic hepatitis-denies recent use. AST 129/ALT 87 on admission. ALT now within normal limits. AST 73. Suspect patient is continuing to use alcohol. 4. Tobacco dependence-encourage smoking cessation. 5. Hypertension-stable, continue home atenolol regimen. 6. Hypothyroidism-continue Synthroid. Check TSH. 7. Rheumatoid arthritis/psoriasis-previously on prednisone/methotrexate regimen. 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 Recommend continued outpatient follow-up. 8. Depression/bipolar disorder-history of suicidal attempt. Not on home regimen. Behavioral health assessed patient. She was given referrals for [facility] and [facility] as well as [facility]. Continue outpatient follow- up. DVT prophylaxis-Lovenox subcu. Discharge planning: TCU at discharge pending qualifying stay. DC tomorrow. This patient was seen by CLAUDIA Roblero under the supervision of Dr. Ruggiero.
[2017-09-19 12:13] LABS: Thyroid Stim Hormone (TSH) 4.15 uIU/mL (0.358-3.74)
--- NOTE | 2017-09-19 12:21 | CASEMGMT ---
Addendum entered by Jeanette Wright 09/19/17 12:39: SW asked pt if there was anyone that she wanted this worker to call and notify of discharge plans. Per pt she is unsure at this time if she wants this worker to notify anyone. Pt's brother is listed as next of kin but pt unsure if she wants him notified. SAM put note on green sheet to have staff check with pt before discharges to TCU tomorrow if she wants anybody to be notified of discharge. Plan: TCU tomorrow Jeanette BEAR, FLOOR PLAN ADJUSTER Original Note: Social Work Note Tish with inpatient rehab/TCU called this worker to ask this worker if pt has been at a SNF in the past 30 days. This worker states that this worker is unsure. SAM states that this worker does know that in the past pt was at [facility] but unsure when her last day was at [facility]. SAM informed Tish that this worker will find out and let her know. SAM met with pt to ask when her last day was at [facility]. Per pt she is unsure. SAM asked pt if this worker could call [facility] and get the date that she was last at their facility and pt gave approval. SAM called [facility]. Per [facility] pt's discharge date was June 20, 2017. SAM called Tish back and informed her of this. Per Tish she is able to take pt tomorrow in TCU. Green sheet on pt's chart. Plan: TCU tomorrow Jeanette BEAR, FLOOR PLAN ADJUSTER
[2017-09-19 15:54] VITALS: BP 156/91; PULSE 75; RESP 16; TEMP 36.4; O2SAT 93
[2017-09-19 21:14] VITALS: BP 150/83; PULSE 79; RESP 20; TEMP 36.6; O2SAT 97
[2017-09-19] MEDS: Ondansetron 4 MG/2 ML Vial IV (21:19)
[2017-09-20] MEDS: chlordiazePOXIDE 25 MG Capsule PO ×2 (00:19→10:03)
[2017-09-20] MEDS: 0.9% Normal Saline 1,000 ML 75 ML IV (00:20)
[2017-09-20 03:31] VITALS: BP 156/82; PULSE 78; RESP 16; TEMP 36.6; O2SAT 92
[2017-09-20] MEDS: HYDROcodone Bitartrate/Apap 5/325 Tablet PO ×2 (03:47→10:03)
[2017-09-20] MEDS: Levothyroxine 75 MCG Tablet PO (06:27)
[2017-09-20] MEDS: Ondansetron 4 MG/2 ML Vial IV ×2 (06:27→10:03)
[2017-09-20 07:44] LABS: ALB/GLOB Ratio 0.7 RATIO (0.9-2.4); AST(SGOT) 110 U/L (15-37); Alanine Aminotransfer ALT/SGPT 71 U/L (13-56); Albumin, Serum 2.3 g/dL (3.2-5.0); Alkaline Phosphatase 208 U/L (45-117); Anion Gap 7 (5-15); BUN 4 mg/dL (7-18); BUN/Creat Ratio 10.9 RATIO (10-20); Calcium,Total 8.3 mg/dL (8.5-10.1); Chloride 113 mmol/L (98-107); Creatinine, Serum 0.37 mg/dL (0.55-1.02); EST Glomerular Filtration Rate 186 mL/min (>60); Est Glom Filt Rate - Afr Amer 225 mL/min (>60); Estimated Creatinine Clearance 47.78 ml/min; Globulin 3.1 g/dL (2.2-4.2); Glucose 130 mg/dL (74-106); Lipase 507 U/L (73-393); Potassium 3.3 mmol/L (3.5-5.1); Protein, Total 5.4 g/dL (6.4-8.2); Sodium Level 144 mmol/L (136-145)
[2017-09-20 07:54] VITALS: BP 153/91; PULSE 70; RESP 18; TEMP 36.5; O2SAT 95
--- NOTE | 2017-09-20 08:56 | TREXTCA.CO_ITS ---
- Diet 09/19/17 08:05 Diet: Cardiac/Low Cholesterol Food consistency:: Soft Liquid Consistency:: Regular/Thin Is pt able to select menu?: Yes - Routine Orders/Code Status Suppository Type: Dulcolax 10mg Suppository Frequency: Daily PRN Routine Lab Work: BMP, - - In 3 days and then Q week Code Status: Full Code - Therapies Weight Bearing: Full weight bearing Physical Therapy: Eval and Treat Occupational Therapy: Eval and Treat Speech Therapy: Eval and Treat - Allergies/Procedures Done in Hospital Allergies/Adverse Reactions: Allergies nickel [Nickel] Allergy (Verified 09/17/17 12:09) Rash Neuromuscular Blockers, Steroidal [Steroidal Neuromuscular Blockers] Adverse Reaction (Verified 09/17/17 17:07) ACTED WEIRD prochlorperazine edisylate [From Compazine] Adverse Reaction (Verified 09/17/17 12:09) disoriented prochlorperazine maleate [From Compazine] Adverse Reaction (Verified 09/17/17 17 :07) DISORIENTED Procedures: None - Type of Care/Length of Stay Estimated LOS: Convalescent Care Less Than 30 days Type of Care Needed: Skilled Rehab Potential: Good Prognosis: Good - Additional Orders/Day of Discharge H&P will serve as current which was dated: 09/17/17 Day of Discharge: 09/20/17 - Dietary and Speech Recommendations Dietitian Recommendations/Changes: Rec adv diet as tolerated to low fat, no gastric stimulant. Will provide Ensure Clear w/ medpass. - Follow Up Care Primary Care Physician: Moreno Johnson MD [STAFF PHYSICIAN] - Please follow up with your Primary Care Physician in: 1-2 Weeks Please Follow Up With: Joe Mendieta MD - Gastroenterology When: 1-2 Weeks Please Follow Up With: Bottom Presser When: 2-4 Weeks
--- NOTE | 2017-09-20 08:58 | PCM.DC.SUM ---
<Donna Carrington - Last Filed: 09/20/17 09:07> Discharge Date and Diagnosis Date of Admission: 09/17/17 Date of Discharge: 09/20/17 - Primary Discharge Diagnosis 1. Acute recurrent pancreatitis-suspected alcoholic pancreatitis. - Secondary Discharge Diagnosis Chronic Problems Rheumatoid arthritis (Chronic) Psoriasis (Chronic) Chronic back pain (Chronic) osteoarthritis Magnesium deficiency (Chronic) Alcohol intoxication (Chronic) Drug overdose (Chronic) Delusional disorder (Chronic) Bipolar disorder (Chronic) Hypothyroidism (Chronic) Chronic alcohol use (Chronic) Depression with H/o suicidal attempt (Chronic) Hospital Course and Treatment Imaging Results: Diagnostic Data Gallbladder Ultrasound 09/17/17 15:43 IMPRESSION: Fatty infiltration of the liver. No gallstones or biliary dilatation. Electronically Signed: Anil Villatoro MD at 16:58 EDT , Service support , Operations: None Procedures: None Summary of Care Provided: Patient is a 67-year-old female admitted 09/17/17 due to abdominal pain. She has a past medical history of chronic alcohol use, rheumatoid arthritis, psoriasis, depression, bipolar, hypertension, hypothyroidism, tobacco dependence. 1. 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 Suspect alcoholic pancreatitis given improvement and liver profile. Gallbladder ultrasound on admission showed fatty infiltration of liver. No gallstones or biliary dilatation. CT of abdomen previously May 2017 showed acute pancreatitis, no other abnormality. Patient denies recent alcohol use and states she has not drank alcohol since she was a kid. However, she was admitted May 2017 for alcohol withdrawal, alcoholic encephalopathy and acute recurrent pancreatitis. No alcohol level was drawn on admission. Patient was recommended to follow-up with gastroenterology at previous discharge and has failed to follow-up. She states it is difficult for her to get to appointments. IgG subclass 4 pending to assess for autoimmune pancreatitis. Discussed with patient importance of outpatient follow-up with gastroenterology to establish the etiology of recurrent pancreatitis. Patient tolerating low-fat diet. Lipase reduced to 507 from 3306 on admission. Behavioral health assessed patient due to depression. She denied recent alcohol use to them as well. She told behavioral health that she has conversion reactions and a severe allergy to nickel which she believes is the cause of some of her chronic medical conditions. Recommend patient follow-up with gastroenterology in 1-2 weeks. 2. Dysphasia, chronic-patient states this has been ongoing. Upper endoscopy in January 2017 showed gastritis. No other abnormality. Negative for H. pylori. Patient states she continues to feel like food is getting stuck. Speech therapy evaluated patient and did not recommend any further testing. Patient was noted to do well on regular textures and thin liquids. She can continue working with speech therapy at [facility]. 3. History of chronic alcohol use/alcoholic hepatitis-denies recent use. AST 129/ALT 87 on admission. AST/ALT significantly improved. Suspect patient is continuing to use alcohol. 4. Tobacco dependence-encourage smoking cessation. 5. Hypertension-stable, continue home atenolol regimen. 6. Hypothyroidism-continue Synthroid. TSH 4.15. Free T4 pending at discharge. Further monitoring and adjustment by primary care physician. 7. Rheumatoid arthritis/psoriasis-previously on prednisone/methotrexate regimen. Fails to follow-up with power station operator. Recommend continued outpatient follow-up. 8. Depression/bipolar disorder-history of suicidal attempt. Not on home regimen. Behavioral health assessed patient. She was [email or web address] well as [facility]. Continue outpatient follow-up. General: Alert, Oriented x3, Cooperative, No apparent distress HEENT: Atraumatic, PERRLA, EOMI, Normocephalic Neck: Supple, No JVD, Negative Carotid Bruits Lungs: Clear to auscultation, Normal air movement Cardiovascular: Regular rate, Regular Rhythm, Normal S1, Normal S2, No murmurs Abdomen: Bowel Sounds Present, Soft, Non-Distended, Tender - Generalized TTP. Extremities: No clubbing, No cyanosis, No edema, Capillary Refill Less than 3 Seconds Skin: No rashes, No breakdown Musculoskeletal: No Tenderness to Palpation of Joints or Extremities Neurological: Cranial nerves II-XII grossly intact, Neuro grossly intact Psych/Mental Status: Anxious, Depressed Patient seen and examined prior to discharge. Physical assessment as noted above. Patient is stable for discharge to transitional care unit. This patient was seen by CLAUDIA Roblero under the supervision of Dr. Paul. Home Medications: Medications to take at Discharge Levothyroxine [Synthroid] 75 mcg PO DAILY 01/31/17 Atenolol [Tenormin (beta rené)] 100 mg PO DAILY 05/20/17 Chlordiazepoxide [Librium] 25 mg PO TID PRN PRN #20 cap 05/27/17 Hydrocodone Bitart/Apap 5-325 [[place] 5/325] 1 - 2 tablet PO Q6H PRN PRN 5 Days tablet 09/20/17 Ondansetron HCl [Zofran] 4 mg PO Q6H PRN PRN #10 tab 09/20/17 Following Prescrptions Were Given to Patient: Ondansetron HCl [Zofran] 4 mg PO Q6H PRN PRN #10 tab PRN Reason: Nausea Primary Care Physician: Moreno Johnson MD [STAFF PHYSICIAN] - Please follow up with your Primary Care Physician in: 1-2 Weeks Please Follow Up With: Joe Mendieta MD - Gastroenterology When: 1-2 Weeks Please Follow Up With: Senior Java J2Ee Developer When: 2-4 Weeks Disposition: Alf facility Minutes spent on discharge:: 35 Patient Condition:: Stable Medical Necessity - Tobacco Use Smoking Status: Current every day smoker Tobacco Use: Cigarettes Meaningful Use Info Meaningful Use Diagnoses (Choose all that apply): None applicable <Moreno Paul - Last Filed: 09/20/17 09:23> Discharge Date and Diagnosis - Secondary Discharge Diagnosis Chronic Problems Rheumatoid arthritis (Chronic) Psoriasis (Chronic) Chronic back pain (Chronic) osteoarthritis Magnesium deficiency (Chronic) Alcohol intoxication (Chronic) Drug overdose (Chronic) Delusional disorder (Chronic) Bipolar disorder (Chronic) Hypothyroidism (Chronic) Chronic alcohol use (Chronic) Depression with H/o suicidal attempt (Chronic) Hospital Course and Treatment Summary of Care Provided: The patient is a 67 year old F comorbidities including hypothyroidism, rheumatoid arthritis, psoriasis with history of recurrent pancreatitis presented with acute exacerbation. Patient was placed on a monitored bed treated per protocol condition did improve. Patient was also found to be profoundly deconditioned requested for PT OT as well as geriatric social worker to assist with discharge planning [facility] approval was obtained Hospital course as detailed above by Donna Carrington Patient was seen and examined on the day of admission she was stable at the time of discharge Total time spent on discharge process 35 minutes. Code Visit Inpatient E&M: [id number] Disch Hosp
[2017-09-20] MEDS: Enoxaparin 40 MG/0.4 ML Syringe SC (09:02)
[2017-09-20] MEDS: Atenolol 100 MG Tablet PO (09:02)
--- NOTE | 2017-09-20 09:07 | DS.PCM_ITS ---
<Donna Carrington - Last Filed: 09/20/17 09:07> Discharge Date and Diagnosis Date of Admission: 09/17/17 Date of Discharge: 09/20/17 - Primary Discharge Diagnosis 1. Acute recurrent pancreatitis-suspected alcoholic pancreatitis. - Secondary Discharge Diagnosis Chronic Problems Rheumatoid arthritis (Chronic) Psoriasis (Chronic) Chronic back pain (Chronic) osteoarthritis Magnesium deficiency (Chronic) Alcohol intoxication (Chronic) Drug overdose (Chronic) Delusional disorder (Chronic) Bipolar disorder (Chronic) Hypothyroidism (Chronic) Chronic alcohol use (Chronic) Depression with H/o suicidal attempt (Chronic) Hospital Course and Treatment Imaging Results: Diagnostic Data Gallbladder Ultrasound 09/17/17 15:43 IMPRESSION: Fatty infiltration of the liver. No gallstones or biliary dilatation. Electronically Signed: Anil Villatoro MD at 16:58 EDT , Service support , Operations: None Procedures: None Summary of Care Provided: Patient is a 67-year-old female admitted 09/17/17 due to abdominal pain. She has a past medical history of chronic alcohol use, rheumatoid arthritis, psoriasis, depression, bipolar, hypertension, hypothyroidism, tobacco dependence. 1. 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 Suspect alcoholic pancreatitis given improvement and liver profile. Gallbladder ultrasound on admission showed fatty infiltration of liver. No gallstones or biliary dilatation. CT of abdomen previously May 2017 showed acute pancreatitis, no other abnormality. Patient denies recent alcohol use and states she has not drank alcohol since she was a kid. However, she was admitted May 2017 for alcohol withdrawal, alcoholic encephalopathy and acute recurrent pancreatitis. No alcohol level was drawn on admission. Patient was recommended to follow-up with gastroenterology at previous discharge and has failed to follow-up. She states it is difficult for her to get to appointments. IgG subclass 4 pending to assess for autoimmune pancreatitis. Discussed with patient importance of outpatient follow-up with gastroenterology to establish the etiology of recurrent pancreatitis. Patient tolerating low-fat diet. Lipase reduced to 507 from 3306 on admission. Behavioral health assessed patient due to depression. She denied recent alcohol use to them as well. She told behavioral health that she has conversion reactions and a severe allergy to nickel which she believes is the cause of some of her chronic medical conditions. Recommend patient follow-up with gastroenterology in 1-2 weeks. 2. Dysphasia, chronic-patient states this has been ongoing. Upper endoscopy in January 2017 showed gastritis. No other abnormality. Negative for H. pylori. Patient states she continues to feel like food is getting stuck. Speech therapy evaluated patient and did not recommend any further testing. Patient was noted to do well on regular textures and thin liquids. She can continue working with speech therapy at [facility]. 3. History of chronic alcohol use/alcoholic hepatitis-denies recent use. AST 129/ALT 87 on admission. AST/ALT significantly improved. Suspect patient is continuing to use alcohol. 4. Tobacco dependence-encourage smoking cessation. 5. Hypertension-stable, continue home atenolol regimen. 6. Hypothyroidism-continue Synthroid. TSH 4.15. Free T4 pending at discharge. Further monitoring and adjustment by primary care physician. 7. Rheumatoid arthritis/psoriasis-previously on prednisone/methotrexate regimen. Fails to follow-up with grounds and nursery specialist. Recommend continued outpatient follow-up. 8. Depression/bipolar disorder-history of suicidal attempt. Not on home regimen. Behavioral health assessed patient. [facility] was [facility] well [facility]. Continue outpatient follow- up. General: Alert, Oriented x3, Cooperative, No apparent distress HEENT: Atraumatic, PERRLA, EOMI, Normocephalic Neck: Supple, No JVD, Negative Carotid Bruits Lungs: Clear to auscultation, Normal air movement Cardiovascular: Regular rate, Regular Rhythm, Normal S1, Normal S2, No murmurs Abdomen: Bowel Sounds Present, Soft, Non-Distended, Tender - Generalized TTP. Extremities: No clubbing, No cyanosis, No edema, Capillary Refill Less than 3 Seconds Skin: No rashes, No breakdown Musculoskeletal: No Tenderness to Palpation of Joints or Extremities Neurological: Cranial nerves II-XII grossly intact, Neuro grossly intact Psych/Mental Status: Anxious, Depressed Patient seen and examined prior to discharge. Physical assessment as noted above. Patient is stable for discharge to transitional care unit. This patient was seen by CLAUDIA Roblero under the supervision of Dr. Paul. Home Medications: Medications to take at Discharge Levothyroxine [Synthroid] 75 mcg PO DAILY 01/31/17 Atenolol [Tenormin (beta rené)] 100 mg PO DAILY 05/20/17 Chlordiazepoxide [Librium] 25 mg PO TID PRN PRN #20 cap 05/27/17 Hydrocodone Bitart/Apap 5-325 [[place] 5/325] 1 - 2 tablet PO Q6H PRN PRN 5 Days tablet 09/20/17 Ondansetron HCl [Zofran] 4 mg PO Q6H PRN PRN #10 tab 09/20/17 Following Prescrptions Were Given to Patient: Ondansetron HCl [Zofran] 4 mg PO Q6H PRN PRN #10 tab PRN Reason: Nausea Primary Care Physician: Moreno Johnson MD [STAFF PHYSICIAN] - Please follow up with your Primary Care Physician in: 1-2 Weeks Please Follow Up With: Joe Mendieta MD - Gastroenterology When: 1-2 Weeks Please Follow Up With: Silk Screen Painter When: 2-4 Weeks Disposition: Half-Way facility Minutes spent on discharge:: 35 Patient Condition:: Stable Medical Necessity - Tobacco Use Smoking Status: Current every day smoker Tobacco Use: Cigarettes Meaningful Use Info Meaningful Use Diagnoses (Choose all that apply): None applicable <Moreno Paul - Last Filed: 09/20/17 09:23> Discharge Date and Diagnosis - Secondary Discharge Diagnosis Chronic Problems Rheumatoid arthritis (Chronic) Psoriasis (Chronic) Chronic back pain (Chronic) osteoarthritis Magnesium deficiency (Chronic) Alcohol intoxication (Chronic) Drug overdose (Chronic) Delusional disorder (Chronic) Bipolar disorder (Chronic) Hypothyroidism (Chronic) Chronic alcohol use (Chronic) Depression with H/o suicidal attempt (Chronic) Hospital Course and Treatment Summary of Care Provided: The patient is a 67 year old F comorbidities including hypothyroidism, rheumatoid arthritis, psoriasis with history of recurrent pancreatitis presented with acute exacerbation. Patient was placed on a monitored bed treated per protocol condition did improve. Patient was also found to be profoundly deconditioned requested for PT OT as well as 7th grade social studies teacher to assist with discharge planning patient was discharged to half-way facility once insurance approval was obtained Hospital course as detailed above by Donna Carrington Patient was seen and examined on the day of admission she was stable at the time of discharge Total time spent on discharge process 35 minutes. Code Visit Inpatient E&M: [id number] Disch Hosp
--- NOTE | 2017-09-20 11:13 | NURSING ---
Call placed to [facility] in TCU to give report, Nurse stated she would call this nurse back shortly to obtain report
--- NOTE | 2017-09-20 12:00 | CASEMGMT ---
Addendum entered and electronically signed by Perlita Rhodes 09/23/17 14:07: Have tried to reach the patient's brother, but no answer, only a generic answering machine. Handoff to oncology social work on TCU today, patient can be updated. -EM Dia, FLASK CARRIER Original Note: Social Work Unit - [facility]3 Patient to discharged to [facility] TCU today. Met with patient prior to discharge, following up whether patient wanted to have brother Chidi Law called. Patient took some time to think about this, then verbalized that would be okay to tell her brother of the discharge to TCU, but that does not really want the brother to come and visit. Will attempt to reach the brother. Plan: Discharge to [facility] TCU for skilled level of care. -EM Dia, FLASK CARRIER
[2017-09-20 14:44] LABS: T4 Free Direct 1.03 ng/dL (0.76-1.46)
[2017-09-22 12:07] LABS: IgG, Quant 567 mg/dL (700-1600); Immunoglobulin G, Subclass 1 291 mg/dL (248-810); Immunoglobulin G, Subclass 2 276 mg/dL (130-555); Immunoglobulin G, Subclass 3 61 mg/dL (15-102)
[2017-09-22 15:15] LABS: Immunoglobulin G, Subclass 4 85 mg/dL (2-96)
== END 2017-09-20 12:00 | disposition skilled nursing facility (03) | DRG 440 ==
LOC: ED 17:24 → MS3 17:35
PROVIDERS: Nurse Practitioner Family; Emergency Provider Emergency Medicine; Visit Provider Internal Medicine
DX: K85.20 Alcohol induced acute pancreatitis without necrosis or infection (principal); E83.42 Hypomagnesemia; K86.0 Alcohol-induced chronic pancreatitis; E86.0 Dehydration; F10.10 Alcohol abuse, uncomplicated; Y90.9 Presence of alcohol in blood, level not specified; F17.210 Nicotine dependence, cigarettes, uncomplicated; F31.9 Bipolar disorder, unspecified; F22 Delusional disorders; E03.9 Hypothyroidism, unspecified; I10 Essential (primary) hypertension; M06.9 Rheumatoid arthritis, unspecified; L40.9 Psoriasis, unspecified; R47.02 Dysphasia; K76.0 Fatty (change of) liver, not elsewhere classified; M19.90 Unspecified osteoarthritis, unspecified site; M54.9 Dorsalgia, unspecified; G89.29 Other chronic pain; Z87.19 Personal history of other diseases of the digestive system; Z91.5 Personal history of self-harm; Z86.59 Personal history of other mental and behavioral disorders; Z79.899 Other long term (current) drug therapy
CPT/HCPCS: 36415; 76705; 80048; 80053; 80076; 81001; 82784; 82787; 83690; 84439; 84443; 85025; 92526; 97110; 97116; 97161; 97166; 97530; 97802; 99284; J7030; A4216; J2405

== ENCOUNTER 2017-09-20 12:12 | Inpatient (IN) | payer MEDICARE, SELFPAY ==
[2017-09-20 13:00] VITALS: BP 143/84; PULSE 68; RESP 16; TEMP 31.8; O2SAT 94
--- NOTE | 2017-09-20 13:00 | NURSING ---
PT admitted to room 10 from [place] via wheelchair, oriented to room and call light system explained.
[2017-09-20 13:36] VITALS: BMI 26.7
[2017-09-20 13:44] VITALS: BMI 26.8
[2017-09-20] MEDS: HYDROcodone Bitartrate/Apap 5/325 Tablet PO ×2 (14:51→22:38)
[2017-09-20 15:38] VITALS: BP 159/84; PULSE 72; RESP 16; TEMP 36.9; O2SAT 96
--- NOTE | 2017-09-20 21:45 | PCM.HP.STD ---
Problem List (1) Abdominal pain Status: Acute (2) Nausea & vomiting Status: Acute (3) Alcohol abuse Status: Chronic (4) Hypertension Status: Chronic (5) Hypomagnesemia Status: Chronic (6) Hypothyroidism Status: Chronic (7) Anxiety Status: Chronic (8) Rheumatoid arthritis Status: Chronic (9) Psoriasis Status: Chronic (10) Acute pancreatitis Status: Acute (11) Drug overdose Status: Chronic (12) Delusional disorder Status: Chronic (13) Bipolar disorder Status: Chronic History of Present Illness Date of Admission: 09/20/17 Chief Complaint: Here for rehabilitation, strengthening, prior to discharge home alone. The patient is a 67 year old Female with below past medical history presented to [facility] Emergency Department 09/17/2017 with abdominal pain, nausea & vomiting. Nausea & vomiting, decreased oral intake x 4-5 days. Epigastric pain. CBCD okay, BMP okay, Lipase enzymes normal. Lipase 3306, UA 25 - 50 WBC, 1+ bacteria, urine cultured. Ultrasound showed fatty liver, no gallstones, no sludge. IV fluids, Zofran, Morphine. 09/17/2017 Admit to Hospital, pain control, IV fluids. Last positive alcohol level 2014. Positive NAIN, Negative Anti-CCP, Negative RF. EGD 01/2017 showed gastritis. 09/18/2017 Morphine PRN pain. Consulted speech therapy for dysphagia. Behavioral Health for alcohol abuse. Prednisone, MTX for rheumatoid arthritis in the past, not compliant with Rheumatology follow up. 09/19/2017 Pancreatitis secondary to alcohol versus autoimmune pancreatitis. Behavioral health suspects depression. Speech Therapy for dysphagia. Encourage smoking cessation. 09/20/2017 Speech Therapy recommends no additional testing. Recommend Behavioral Health for mental health issues. 09/20/2017 Admit to TCU for rehabilitation, strengthening, prior to discharge home alone. Past Medical History Past Medical History (Chronic Problems): Chronic Problems Alcohol abuse (Chronic) Hypertension (Chronic) Hypomagnesemia (Chronic) Hypothyroidism (Chronic) Anxiety (Chronic) Rheumatoid arthritis (Chronic) Psoriasis (Chronic) Chronic back pain (Chronic) osteoarthritis Magnesium deficiency (Chronic) Alcohol intoxication (Chronic) Drug overdose (Chronic) Delusional disorder (Chronic) Bipolar disorder (Chronic) Hypothyroidism (Chronic) Chronic alcohol use (Chronic) Depression with H/o suicidal attempt (Chronic) Allergies nickel [Nickel] Allergy (Verified 09/17/17 12:09) Rash Neuromuscular Blockers, Steroidal [Steroidal Neuromuscular Blockers] Adverse Reaction (Verified 09/17/17 17:07) ACTED WEIRD prochlorperazine edisylate [From Compazine] Adverse Reaction (Verified 09/17/17 12:09) disoriented prochlorperazine maleate [From Compazine] Adverse Reaction (Verified 09/17/17 17:07) DISORIENTED Home Medications: Ambulatory Orders Medication Instructions Recorded Levothyroxine [Synthroid] 75 mcg PO DAILY 01/31/17 Atenolol [Tenormin (beta rené)] 100 mg PO DAILY 05/20/17 Chlordiazepoxide [Librium] 25 mg PO TID PRN PRN #20 cap 05/27/17 Hydrocodone Bitart/Apap 5-325 1 - 2 tablet PO Q6H PRN PRN 5 Days 09/20/17 [[place] 5/325] tablet Ondansetron HCl [Zofran] 4 mg PO Q6H PRN PRN #10 tablet 09/20/17 Surgical History: no surgical history Psychiatric History: Anxiety, Bipolar, Depression, - - Alcohol Abuse. REHABILITATION COUNSELLOR History: No pertinent REHABILITATION COUNSELLOR history Lives: Alone Smoking Status: Current every day smoker Tobacco Use: Cigarettes Alcohol: Heavy - Suspected. Drugs: None - *Family History Maternal History Items: Unknown, No pertinent history Paternal History Items: Unknown Review of Systems Constitutional: Denies: Chills, Fever, Weight Change HEENT: Denies: Head Aches, Sinus Congestion, Sinus Drainage Cardiovascular: Denies: Chest Pain, Palpitations Respiratory: Denies: Cough, Shortness of breath at rest, Sputum production Gastrointestinal: Denies: Abdominal Pain, Nausea, Vomiting Genitourinary: Denies: Dysuria Musculoskeletal: Denies: Joint Pain, Joint Tenderness Skin: Denies: Rash, Wounds Neurological: Denies: Numbness, Tingling, Focal weakness Psychiatric: Denies: Anxiety, Depression, Homicidal Ideations, Suicidal Ideations Hematologic/ Lymphatic: Denies: Easy Bruising, Easy Bleeding VTE Information - Inpt Only VTE Present on Admission: No VTE Mechan Device Prophylaxis: Knee High NGUYEN Hose VTE Pharm Prophylaxis ordered?: Yes Patient Problems: Active and Suspected Problems Abdominal pain (Acute) Nausea & vomiting (Acute) - Physical Exam General: Alert, Oriented x3, Cooperative HEENT: Atraumatic, PERRLA, EOMI, Normocephalic Neck: Supple, No JVD, Negative Carotid Bruits Lungs: Clear to auscultation, Normal air movement Cardiovascular: Regular rate, No murmurs Abdomen: Bowel Sounds Present, Soft, Non Tender Extremities: No edema, Capillary Refill Less than 3 Seconds Skin: No rashes, No breakdown Musculoskeletal: No Tenderness to Palpation of Joints or Extremities Neurological: Cranial nerves II-XII grossly intact Psych/Mental Status: Normal Affect, Appropriate Vital Signs Temp Pulse Resp BP Pulse Ox 98.4 F 72 16 159/84 H 96 09/20/17 15:38 09/20/17 15:38 09/20/17 15:38 09/20/17 15:38 09/20/17 15:38 Oxygen Delivery Method Room Air Weight: 73 kg Body Mass Index (BMI) 26.7 Finger Stick Blood Glucose 103 Intake and Output for Last 24 Hours 09/18/17 09/19/17 09/20/17 23:59 23:59 23:59 Intake Total 180 / 180 Balance 180 / 180 Assessment/Plan Active and Suspected Problems Abdominal pain (Acute) Nausea & vomiting (Acute) 67 year old female with below past medical history significant for bipolar disorder, alcohol abuse, hospitalized for abdominal pain secondary to acute pancreatitis, alcohol abuse suspected, admitted to TCU with debility, here for rehabilitation, strengthening, prior to discharge home alone. Debility - PT/OT. Dysphagia - ST. Pain - Bigelow 5/325MG 1-2 tablets Q6 PRN moderate to severe pain. Bowel - Miralax 17GM daily, Senna/colace 2 tablets BID, Dulcolax 10MG PO daily PRN. Pneumonia vaccination - Administer Prevnar 13 and/or Pneumovax 23. DVT prophylaxis - Lovenox 40MG SC daily. Hypertension - Atenolol 100MG daily. Anxiety - Librium 25MG TID PRN. Hypothyroidism - Levothyroxine 75MCG daily. Nausea - Zofran ODT 4MG Q6H PRN. Bipolar disorder/Depression/Delusional disorder/Alcohol Abuse - Behavioral Health, consider psychiatry referral or close follow up with family doctor.
--- NOTE | 2017-09-20 21:57 | HP.PCM_ITS ---
Problem List (1) Abdominal pain Status: Acute (2) Nausea & vomiting Status: Acute (3) Alcohol abuse Status: Chronic (4) Hypertension Status: Chronic (5) Hypomagnesemia Status: Chronic (6) Hypothyroidism Status: Chronic (7) Anxiety Status: Chronic (8) Rheumatoid arthritis Status: Chronic (9) Psoriasis Status: Chronic (10) Acute pancreatitis Status: Acute (11) Drug overdose Status: Chronic (12) Delusional disorder Status: Chronic (13) Bipolar disorder Status: Chronic History of Present Illness Date of Admission: 09/20/17 Chief Complaint: Here for rehabilitation, strengthening, prior to discharge home alone. The patient is a 67 year old Female with below past medical history presented to [facility] Emergency Department 09/17/2017 with abdominal pain, nausea & vomiting. Nausea & vomiting, decreased oral intake x 4-5 days. Epigastric pain. CBCD okay, BMP okay, Lipase enzymes normal. Lipase 3306, UA 25 - 50 WBC, 1+ bacteria, urine cultured. Ultrasound showed fatty liver, no gallstones, no sludge. IV fluids, Zofran, Morphine. 09/17/2017 Admit to Hospital, pain control, IV fluids. Last positive alcohol level 2014. Positive NAIN, Negative Anti-CCP, Negative RF. EGD 01/2017 showed gastritis. 09/18/2017 Morphine PRN pain. Consulted speech therapy for dysphagia. Behavioral Health for alcohol abuse. Prednisone, MTX for rheumatoid arthritis in the past, not compliant with Rheumatology follow up. 09/19/2017 Pancreatitis secondary to alcohol versus autoimmune pancreatitis. Behavioral health suspects depression. Speech Therapy for dysphagia. Encourage smoking cessation. 09/20/2017 Speech Therapy recommends no additional testing. Recommend Behavioral Health for mental health issues. 09/20/2017 Admit to TCU for rehabilitation, strengthening, prior to discharge home alone. Past Medical History Past Medical History (Chronic Problems): Chronic Problems Alcohol abuse (Chronic) Hypertension (Chronic) Hypomagnesemia (Chronic) Hypothyroidism (Chronic) Anxiety (Chronic) Rheumatoid arthritis (Chronic) Psoriasis (Chronic) Chronic back pain (Chronic) osteoarthritis Magnesium deficiency (Chronic) Alcohol intoxication (Chronic) Drug overdose (Chronic) Delusional disorder (Chronic) Bipolar disorder (Chronic) Hypothyroidism (Chronic) Chronic alcohol use (Chronic) Depression with H/o suicidal attempt (Chronic) Allergies nickel [Nickel] Allergy (Verified 09/17/17 12:09) Rash Neuromuscular Blockers, Steroidal [Steroidal Neuromuscular Blockers] Adverse Reaction (Verified 09/17/17 17:07) ACTED WEIRD prochlorperazine edisylate [From Compazine] Adverse Reaction (Verified 09/17/17 12:09) disoriented prochlorperazine maleate [From Compazine] Adverse Reaction (Verified 09/17/17 17 :07) DISORIENTED Home Medications: Ambulatory Orders Medication Instructions Recorded Levothyroxine [Synthroid] 75 mcg PO DAILY 01/31/17 Atenolol [Tenormin (beta rené)] 100 mg PO DAILY 05/20/17 Chlordiazepoxide [Librium] 25 mg PO TID PRN PRN #20 cap 05/27/17 Hydrocodone Bitart/Apap 5-325 1 - 2 tablet PO Q6H PRN PRN 5 Days 09/20/17 [[place] 5/325] tablet Ondansetron HCl [Zofran] 4 mg PO Q6H PRN PRN #10 tablet 09/20/17 Surgical History: no surgical history Psychiatric History: Anxiety, Bipolar, Depression, - - Alcohol Abuse. 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 Drugs: None - *Family History Maternal History Items: Unknown, No pertinent history Paternal History Items: Unknown Review of Systems Constitutional: Denies: Chills, Fever, Weight Change HEENT: Denies: Head Aches, Sinus Congestion, Sinus Drainage Cardiovascular: Denies: Chest Pain, Palpitations Respiratory: Denies: Cough, Shortness of breath at rest, Sputum production Gastrointestinal: Denies: Abdominal Pain, Nausea, Vomiting Genitourinary: Denies: Dysuria Musculoskeletal: Denies: Joint Pain, Joint Tenderness Skin: Denies: Rash, Wounds Neurological: Denies: Numbness, Tingling, Focal weakness Psychiatric: Denies: Anxiety, Depression, Homicidal Ideations, Suicidal Ideations Hematologic/ Lymphatic: Denies: Easy Bruising, Easy Bleeding VTE Information - Inpt Only VTE Present on Admission: No VTE Mechan Device Prophylaxis: Knee High NGUYEN Hose VTE Pharm Prophylaxis ordered?: Yes Patient Problems: Active and Suspected Problems Abdominal pain (Acute) Nausea & vomiting (Acute) - Physical Exam General: Alert, Oriented x3, Cooperative HEENT: Atraumatic, PERRLA, EOMI, Normocephalic Neck: Supple, No JVD, Negative Carotid Bruits Lungs: Clear to auscultation, Normal air movement Cardiovascular: Regular rate, No murmurs Abdomen: Bowel Sounds Present, Soft, Non Tender Extremities: No edema, Capillary Refill Less than 3 Seconds Skin: No rashes, No breakdown Musculoskeletal: No Tenderness to Palpation of Joints or Extremities Neurological: Cranial nerves II-XII grossly intact Psych/Mental Status: Normal Affect, Appropriate Vital Signs Temp Pulse Resp BP Pulse Ox 98.4 F 72 16 159/84 H 96 09/20/17 15:38 09/20/17 15:38 09/20/17 15:38 09/20/17 15:38 09/20/17 15:38 Oxygen Delivery Method Room Air Weight: 73 kg Body Mass Index (BMI) 26.7 Finger Stick Blood Glucose 103 Intake and Output for Last 24 Hours 09/18/17 09/19/17 09/20/17 23:59 23:59 23:59 Intake Total 180 / 180 Balance 180 / 180 Assessment/Plan Active and Suspected Problems Abdominal pain (Acute) Nausea & vomiting (Acute) 67 year old female with below past medical history significant for bipolar disorder, alcohol abuse, hospitalized for abdominal pain secondary to acute pancreatitis, alcohol abuse suspected, admitted to TCU with debility, here for rehabilitation, strengthening, prior to discharge home alone. * Debility - PT/OT. * Dysphagia - ST. * Pain - [place] 5/325MG 1-2 tablets Q6 PRN moderate to severe pain. * Bowel - Miralax 17GM daily, Senna/colace 2 tablets BID, Dulcolax 10MG PO daily PRN. * Pneumonia vaccination - Administer Prevnar 13 and/or Pneumovax 23. * DVT prophylaxis - Lovenox 40MG SC daily. * Hypertension - Atenolol 100MG daily. * Anxiety - Librium 25MG TID PRN. * Hypothyroidism - Levothyroxine 75MCG daily. * Nausea - Zofran ODT 4MG Q6H PRN. * Bipolar disorder/Depression/Delusional disorder/Alcohol Abuse - Behavioral Health, consider psychiatry referral or close follow up with family doctor.
[2017-09-21] MEDS: Enoxaparin 40 MG/0.4 ML Syringe SC (06:01)
[2017-09-21] MEDS: Levothyroxine 75 MCG Tablet PO (06:01)
[2017-09-21] MEDS: Atenolol 100 MG Tablet PO (06:01)
[2017-09-21] MEDS: Senna/Docusate Sodium 1 Tablet 2 TABLET PO (06:02)
[2017-09-21] MEDS: Polyethylene Glycol 3350 17 GM PACKET PO (06:04)
[2017-09-21] MEDS: HYDROcodone Bitartrate/Apap 5/325 Tablet PO ×2 (06:32→15:57)
[2017-09-21] MEDS: Ondansetron ODT 4 MG Tablet PO ×2 (06:34→15:57)
[2017-09-21 07:30] LABS: Absolute Lymphocyte Count 0.73 X10^3/ul (0.83-4.51); Absolute Neutrophil Count 3.7 X10^3/uL (2.0-7.7); Eosinophil# 0.13 X10^3/uL; Eosinophils% 2.6 % (0-5); Hematocrit 40.5 % (37-47); Hemoglobin 13.2 g/dl (12.0-15.0); Lymphocyte # 0.73 X10^3/ul (4.0); Lymphocyte % 14.7 % (19-41); Mean Corp Hgb Conc 32.6 g/gl (32-36); Mean Corpuscular Hgb 32.4 pg (27.0-32.0); Mean Corpuscular Volume 99.3 fL (81-99); Monocyte# 0.44 X10^3/uL; Monocyte% 8.9 % (0-10); Neutrophil # 3.66 X10^3/uL (2.7-7.7); Neutrophil % 73.6 % (47-70); Platelet Count 184 K/mm3 (150-450); RBC Distribution Width CV 14.7 % (11.6-14.6); RBC Distribution Width SD 53.5 fl (35.1-43.9); Red Blood Count 4.08 M/mm3 (4.2-5.4)
[2017-09-21 07:32] LABS: POSITIVE COUNT NO; POSITIVE DIFFERENTIAL NO; POSITIVE MORPHOLOGY NO
[2017-09-21 07:44] LABS: Anion Gap 7 (5-15); BUN 5 mg/dL (7-18); BUN/Creat Ratio 9.9 RATIO (10-20); Chloride 108 mmol/L (98-107); EST Glomerular Filtration Rate 128 mL/min (>60); Est Glom Filt Rate - Afr Amer 155 mL/min (>60); Estimated Creatinine Clearance 47.78 ml/min; Glucose 185 mg/dL (74-106); Potassium 3.6 mmol/L (3.5-5.1); Sodium Level 141 mmol/L (136-145)
[2017-09-21 10:00] VITALS: O2SAT 94
[2017-09-21] MEDS: Tuberculin,Purif.prot.deriv. 50 TU/ML Vial 5 ML ID (11:14)
--- NOTE | 2017-09-21 11:45 | PCM.PN.RX ---
<Hal Galvez - Last Filed: 09/21/17 11:45> Progress Note - Pharmacy Subjective: TCU Admission Objective: Allergies nickel [Nickel] Allergy (Verified 09/17/17 12:09) Rash Neuromuscular Blockers, Steroidal [Steroidal Neuromuscular Blockers] Adverse Reaction (Verified 09/17/17 17:07) ACTED WEIRD prochlorperazine edisylate [From Compazine] Adverse Reaction (Verified 09/17/17 12:09) disoriented prochlorperazine maleate [From Compazine] Adverse Reaction (Verified 09/17/17 17:07) DISORIENTED Home Medications Medication Instructions Recorded Levothyroxine [Synthroid] 75 mcg PO DAILY 01/31/17 Atenolol [Tenormin (beta terry)] 100 mg PO DAILY 05/20/17 Chlordiazepoxide [Librium] 25 mg PO TID PRN PRN #20 cap 05/27/17 Hydrocodone Bitart/Apap 5-325 1 - 2 tablet PO Q6H PRN PRN 5 Days 09/20/17 [[place] 5/325] tablet Ondansetron HCl [Zofran] 4 mg PO Q6H PRN PRN #10 tablet 09/20/17 Current Medications Generic Name Dose Route Start Last Admin Trade Name Freq PRN Reason Stop Dose Admin Hydrocodone Bitart/Acetaminophen 1 - 2 tablet 09/20/17 13:13 09/21/17 06:32 [place] 5mg-325mg PO 2 tablet Q6H PRN PRN Administration Moderate-severe pain Atenolol 100 mg 09/21/17 06:00 09/21/17 06:01 Tenormin (Beta Terry) PO 100 mg DAILY [facility] Administration Bisacodyl 10 mg 09/20/17 22:03 Dulcolax PO DAILY PRN Constipation Chlordiazepoxide 25 mg 09/20/17 13:13 Librium PO TID PRN PRN ANXIETY Enoxaparin Sodium 40 mg 09/21/17 06:00 09/21/17 06:01 Lovenox SC 40 mg DAILY@0600 JAYLON Administration Levothyroxine Sodium 75 mcg 09/21/17 06:00 09/21/17 06:01 Synthroid PO 75 mcg DAILY JAYLON Administration Nutritional Formula (Lactose Free) 120 ml 09/20/17 17:00 09/21/17 06:00 Ensure Enlive PO 120 ml 4X/DAY JAYLON Administration Ondansetron HCl 4 mg 09/20/17 13:16 09/21/17 06:34 Zofran Odt PO 4 mg Q6H PRN Administration Nausea Polyethylene Glycol 17 gm 09/21/17 06:00 09/21/17 06:04 Miralax PO 17 gm DAILY JAYLON Administration Senna/Docusate Sodium 2 tablet 09/21/17 06:00 09/21/17 06:02 Senokot-S, Emely-Colace PO 2 tablet BID JAYLON Administration Tuberculin PPD 5 tu 09/28/17 10:00 Tubersol, Aplisol, Ppd ID 09/28/17 10:01 X1 ONE Problem List Abdominal pain (Acute) Nausea & vomiting (Acute) Alcohol abuse (Chronic) Hypertension (Chronic) Hypomagnesemia (Chronic) Hypothyroidism (Chronic) Anxiety (Chronic) Vital Signs Temp Pulse Resp BP Pulse Ox 98.4 F 72 16 159/84 H 96 09/20/17 15:38 09/20/17 15:38 09/20/17 15:38 09/20/17 15:38 09/20/17 15:38 Oxygen Delivery Method Room Air Weight: 73 kg Body Mass Index (BMI) 26.7 Finger Stick Blood Glucose 103 Sodium 141 mmol/L (136-145) 09/21/17 06:57 Potassium 3.6 mmol/L (3.5-5.1) 09/21/17 06:57 Chloride 108 mmol/L (98-107) H 09/21/17 06:57 Carbon Dioxide 26.0 mmol/L (21.0-32.0) 09/21/17 06:57 Anion Gap 7 (5-15) 09/21/17 06:57 BUN 5 mg/dL (7-18) L 09/21/17 06:57 Creatinine 0.50 mg/dL (0.55-1.02) L 09/21/17 06:57 Est GFR (MDRD) Af Amer 155 mL/min (>60) 09/21/17 06:57 Est GFR (MDRD) Non-Af 128 mL/min (>60) 09/21/17 06:57 BUN/Creatinine Ratio 9.9 RATIO (10-20) L 09/21/17 06:57 Glucose 185 mg/dL (74-106) H 09/21/17 06:57 Assessment/Plan: 1) Pain Hydrocodone/APAP for moderate-severe pain. Continue to monitor daily pain scores, prn medication use. 2) HTN Atenolol daily. BP/HR within goal ranges. Continue to monitor BP/HR. 3) DVT PPx Enoxaparin daily. Continue to monitor s/s bleeding/clot. 4) GI Ondansetron prn. Continue to monitor prn medication use, for s/s GI distress. 5) Hypothyroidism Levothyroxine daily. Continue to monitor s/s hyper/hypothyroidism. Psychotropic Medications: 6) Anxiety Chlordiazepoxide for anxiety. Continue to monitor prn medication use, for s/s anxiety. Unnecessary Medications: None Bowel Regimen: 7) Senna/s, PEG, prn bisacodyl. Continue to monitor prn medication use, for constipation/diarrhea. Date of Note:: 09/21/17 - Provider Comments Provider responsibility: Provider responsible to enter orders to implement recommendations <Brant Howard Chi - Last Filed: 09/21/17 13:31> Progress Note - Pharmacy Subjective: [] Objective: Allergies nickel [Nickel] Allergy (Verified 09/17/17 12:09) Rash Neuromuscular Blockers, Steroidal [Steroidal Neuromuscular Blockers] Adverse Reaction (Verified 09/17/17 17:07) ACTED WEIRD prochlorperazine edisylate [From Compazine] Adverse Reaction (Verified 09/17/17 12:09) disoriented prochlorperazine maleate [From Compazine] Adverse Reaction (Verified 09/17/17 17:07) DISORIENTED Home Medications Medication Instructions Recorded Levothyroxine [Synthroid] 75 mcg PO DAILY 01/31/17 Atenolol [Tenormin (beta terry)] 100 mg PO DAILY 05/20/17 Chlordiazepoxide [Librium] 25 mg PO TID PRN PRN #20 cap 05/27/17 Hydrocodone Bitart/Apap 5-325 1 - 2 tablet PO Q6H PRN PRN 5 Days 09/20/17 [[place] 5/325] tablet Ondansetron HCl [Zofran] 4 mg PO Q6H PRN PRN #10 tablet 09/20/17 Current Medications Generic Name Dose Route Start Last Admin Trade Name Freq PRN Reason Stop Dose Admin Hydrocodone Bitart/Acetaminophen 1 - 2 tablet 09/20/17 13:13 09/21/17 06:32 [place] 5mg-325mg PO 2 tablet Q6H PRN PRN Administration Moderate-severe pain Atenolol 100 mg 09/21/17 06:00 09/21/17 06:01 Tenormin (Beta Terry) PO 100 mg DAILY JAYLON Administration Bisacodyl 10 mg 09/20/17 22:03 Dulcolax PO DAILY PRN Constipation Chlordiazepoxide 25 mg 09/20/17 13:13 Librium PO TID PRN PRN ANXIETY Enoxaparin Sodium 40 mg 09/21/17 06:00 09/21/17 06:01 Lovenox SC 40 mg DAILY@0600 [facility] Administration Levothyroxine Sodium 75 mcg 09/21/17 06:00 09/21/17 06:01 Synthroid PO 75 mcg DAILY JAYLON Administration Nutritional Formula (Lactose Free) 120 ml 09/20/17 17:00 09/21/17 11:52 Ensure Enlive PO 120 ml 4X/DAY JAYLON Administration Ondansetron HCl 4 mg 09/20/17 13:16 09/21/17 06:34 Zofran Odt PO 4 mg Q6H PRN Administration Nausea Polyethylene Glycol 17 gm 09/21/17 06:00 09/21/17 06:04 Miralax PO 17 gm DAILY JAYLON Administration Senna/Docusate Sodium 2 tablet 09/21/17 06:00 09/21/17 06:02 Senokot-S, Emely-Colace PO 2 tablet BID JAYLON Administration Tuberculin PPD 5 tu 09/28/17 10:00 Tubersol, Aplisol, Ppd ID 09/28/17 10:01 X1 ONE Problem List Abdominal pain (Acute) Nausea & vomiting (Acute) Alcohol abuse (Chronic) Hypertension (Chronic) Hypomagnesemia (Chronic) Hypothyroidism (Chronic) Anxiety (Chronic) Vital Signs Temp Pulse Resp BP Pulse Ox 98.4 F 72 16 159/84 H 96 09/20/17 15:38 09/20/17 15:38 09/20/17 15:38 09/20/17 15:38 09/20/17 15:38 Oxygen Delivery Method Room Air Weight: 73 kg Body Mass Index (BMI) 26.7 Finger Stick Blood Glucose 103 Sodium 141 mmol/L (136-145) 09/21/17 06:57 Potassium 3.6 mmol/L (3.5-5.1) 09/21/17 06:57 Chloride 108 mmol/L (98-107) H 09/21/17 06:57 Carbon Dioxide 26.0 mmol/L (21.0-32.0) 09/21/17 06:57 Anion Gap 7 (5-15) 09/21/17 06:57 BUN 5 mg/dL (7-18) L 09/21/17 06:57 Creatinine 0.50 mg/dL (0.55-1.02) L 09/21/17 06:57 Est GFR (MDRD) Af Amer 155 mL/min (>60) 09/21/17 06:57 Est GFR (MDRD) Non-Af 128 mL/min (>60) 09/21/17 06:57 BUN/Creatinine Ratio 9.9 RATIO (10-20) L 09/21/17 06:57 Glucose 185 mg/dL (74-106) H 09/21/17 06:57 Assessment/Plan: Psychotropic Medications: Unnecessary Medications: Bowel Regimen: - Provider Comments Provider responsibility: Provider responsible to enter orders to implement recommendations Provider Comments to Recommendations by Pharmacy: Agree
--- NOTE | 2017-09-21 11:49 | PHA.CONS_ITS ---
<Hal Galvez - Last Filed: 09/21/17 11:45> Progress Note - Pharmacy Subjective: TCU Admission Objective: Allergies nickel [Nickel] Allergy (Verified 09/17/17 12:09) Rash Neuromuscular Blockers, Steroidal [Steroidal Neuromuscular Blockers] Adverse Reaction (Verified 09/17/17 17:07) ACTED WEIRD prochlorperazine edisylate [From Compazine] Adverse Reaction (Verified 09/17/17 12:09) disoriented prochlorperazine maleate [From Compazine] Adverse Reaction (Verified 09/17/17 17 :07) DISORIENTED Home Medications Medication Instructions Recorded Levothyroxine [Synthroid] 75 mcg PO DAILY 01/31/17 Atenolol [Tenormin (beta terry)] 100 mg PO DAILY 05/20/17 Chlordiazepoxide [Librium] 25 mg PO TID PRN PRN #20 cap 05/27/17 Hydrocodone Bitart/Apap 5-325 1 - 2 tablet PO Q6H PRN PRN 5 Days 09/20/17 [[place] 5/325] tablet Ondansetron HCl [Zofran] 4 mg PO Q6H PRN PRN #10 tablet 09/20/17 Current Medications Generic Name Dose Route Start Last Admin Trade Name Freq PRN Reason Stop Dose Admin Hydrocodone Bitart/Acetaminophen 1 - 2 tablet 09/20/17 13:13 09/21/17 06:32 [place] 5mg-325mg PO 2 tablet Q6H PRN PRN Administration Moderate-severe pain Atenolol 100 mg 09/21/17 06:00 09/21/17 06:01 Tenormin (Beta Terry) PO 100 mg DAILY [facility] Administration Bisacodyl 10 mg 09/20/17 22:03 Dulcolax PO DAILY PRN Constipation Chlordiazepoxide 25 mg 09/20/17 13:13 Librium PO TID PRN PRN ANXIETY Enoxaparin Sodium 40 mg 09/21/17 06:00 09/21/17 06:01 Lovenox SC 40 mg DAILY@0600 JAYLON Administration Levothyroxine Sodium 75 mcg 09/21/17 06:00 09/21/17 06:01 Synthroid PO 75 mcg DAILY JAYLON Administration Nutritional Formula (Lactose Free) 120 ml 09/20/17 17:00 09/21/17 06:00 Ensure Enlive PO 120 ml 4X/DAY JAYLON Administration Ondansetron HCl 4 mg 09/20/17 13:16 09/21/17 06:34 Zofran Odt PO 4 mg Q6H PRN Administration Nausea Polyethylene Glycol 17 gm 09/21/17 06:00 09/21/17 06:04 Miralax PO 17 gm DAILY JAYLON Administration Senna/Docusate Sodium 2 tablet 09/21/17 06:00 09/21/17 06:02 Senokot-S, Emely-Colace PO 2 tablet BID JAYLON Administration Tuberculin PPD 5 tu 09/28/17 10:00 Tubersol, Aplisol, Ppd ID 09/28/17 10:01 X1 ONE Problem List Abdominal pain (Acute) Nausea & vomiting (Acute) Alcohol abuse (Chronic) Hypertension (Chronic) Hypomagnesemia (Chronic) Hypothyroidism (Chronic) Anxiety (Chronic) Vital Signs Temp Pulse Resp BP Pulse Ox 98.4 F 72 16 159/84 H 96 09/20/17 15:38 09/20/17 15:38 09/20/17 15:38 09/20/17 15:38 09/20/17 15:38 Oxygen Delivery Method Room Air Weight: 73 kg Body Mass Index (BMI) 26.7 Finger Stick Blood Glucose 103 Sodium 141 mmol/L (136-145) 09/21/17 06:57 Potassium 3.6 mmol/L (3.5-5.1) 09/21/17 06:57 Chloride 108 mmol/L (98-107) H 09/21/17 06:57 Carbon Dioxide 26.0 mmol/L (21.0-32.0) 09/21/17 06:57 Anion Gap 7 (5-15) 09/21/17 06:57 BUN 5 mg/dL (7-18) L 09/21/17 06:57 Creatinine 0.50 mg/dL (0.55-1.02) L 09/21/17 06:57 Est GFR (MDRD) Af Amer 155 mL/min (>60) 09/21/17 06:57 Est GFR (MDRD) Non-Af 128 mL/min (>60) 09/21/17 06:57 BUN/Creatinine Ratio 9.9 RATIO (10-20) L 09/21/17 06:57 Glucose 185 mg/dL (74-106) H 09/21/17 06:57 Assessment/Plan: 1) Pain Hydrocodone/APAP for moderate-severe pain. Continue to monitor daily pain scores, prn medication use. 2) HTN Atenolol daily. BP/HR within goal ranges. Continue to monitor BP/HR. 3) DVT PPx Enoxaparin daily. Continue to monitor s/s bleeding/clot. 4) GI Ondansetron prn. Continue to monitor prn medication use, for s/s GI distress. 5) Hypothyroidism Levothyroxine daily. Continue to monitor s/s hyper/hypothyroidism. Psychotropic Medications: 6) Anxiety Chlordiazepoxide for anxiety. Continue to monitor prn medication use, for s/ s anxiety. Unnecessary Medications: None Bowel Regimen: 7) Senna/s, PEG, prn bisacodyl. Continue to monitor prn medication use, for constipation/diarrhea. Date of Note:: 09/21/17 - Provider Comments Provider responsibility: Provider responsible to enter orders to implement recommendations <Brant Howard Chi - Last Filed: 09/21/17 13:31> Progress Note - Pharmacy Subjective: [] Objective: Allergies nickel [Nickel] Allergy (Verified 09/17/17 12:09) Rash Neuromuscular Blockers, Steroidal [Steroidal Neuromuscular Blockers] Adverse Reaction (Verified 09/17/17 17:07) ACTED WEIRD prochlorperazine edisylate [From Compazine] Adverse Reaction (Verified 09/17/17 12:09) disoriented prochlorperazine maleate [From Compazine] Adverse Reaction (Verified 09/17/17 17 :07) DISORIENTED Home Medications Medication Instructions Recorded Levothyroxine [Synthroid] 75 mcg PO DAILY 01/31/17 Atenolol [Tenormin (beta terry)] 100 mg PO DAILY 05/20/17 Chlordiazepoxide [Librium] 25 mg PO TID PRN PRN #20 cap 05/27/17 Hydrocodone Bitart/Apap 5-325 1 - 2 tablet PO Q6H PRN PRN 5 Days 09/20/17 [[place] 5/325] tablet Ondansetron HCl [Zofran] 4 mg PO Q6H PRN PRN #10 tablet 09/20/17 Current Medications Generic Name Dose Route Start Last Admin Trade Name Freq PRN Reason Stop Dose Admin Hydrocodone Bitart/Acetaminophen 1 - 2 tablet 09/20/17 13:13 09/21/17 06:32 [place] 5mg-325mg PO 2 tablet Q6H PRN PRN Administration Moderate-severe pain Atenolol 100 mg 09/21/17 06:00 09/21/17 06:01 Tenormin (Beta Terry) PO 100 mg DAILY JAYLON Administration Bisacodyl 10 mg 09/20/17 22:03 Dulcolax PO DAILY PRN Constipation Chlordiazepoxide 25 mg 09/20/17 13:13 Librium PO TID PRN PRN ANXIETY Enoxaparin Sodium 40 mg 09/21/17 06:00 09/21/17 06:01 Lovenox SC 40 mg DAILY@0600 [facility] Administration Levothyroxine Sodium 75 mcg 09/21/17 06:00 09/21/17 06:01 Synthroid PO 75 mcg DAILY JAYLON Administration Nutritional Formula (Lactose Free) 120 ml 09/20/17 17:00 09/21/17 11:52 Ensure Enlive PO 120 ml 4X/DAY JAYLON Administration Ondansetron HCl 4 mg 09/20/17 13:16 09/21/17 06:34 Zofran Odt PO 4 mg Q6H PRN Administration Nausea Polyethylene Glycol 17 gm 09/21/17 06:00 09/21/17 06:04 Miralax PO 17 gm DAILY JAYLON Administration Senna/Docusate Sodium 2 tablet 09/21/17 06:00 09/21/17 06:02 Senokot-S, Emely-Colace PO 2 tablet BID JAYLON Administration Tuberculin PPD 5 tu 09/28/17 10:00 Tubersol, Aplisol, Ppd ID 09/28/17 10:01 X1 ONE Problem List Abdominal pain (Acute) Nausea & vomiting (Acute) Alcohol abuse (Chronic) Hypertension (Chronic) Hypomagnesemia (Chronic) Hypothyroidism (Chronic) Anxiety (Chronic) Vital Signs Temp Pulse Resp BP Pulse Ox 98.4 F 72 16 159/84 H 96 09/20/17 15:38 09/20/17 15:38 09/20/17 15:38 09/20/17 15:38 09/20/17 15:38 Oxygen Delivery Method Room Air Weight: 73 kg Body Mass Index (BMI) 26.7 Finger Stick Blood Glucose 103 Sodium 141 mmol/L (136-145) 09/21/17 06:57 Potassium 3.6 mmol/L (3.5-5.1) 09/21/17 06:57 Chloride 108 mmol/L (98-107) H 09/21/17 06:57 Carbon Dioxide 26.0 mmol/L (21.0-32.0) 09/21/17 06:57 Anion Gap 7 (5-15) 09/21/17 06:57 BUN 5 mg/dL (7-18) L 09/21/17 06:57 Creatinine 0.50 mg/dL (0.55-1.02) L 09/21/17 06:57 Est GFR (MDRD) Af Amer 155 mL/min (>60) 09/21/17 06:57 Est GFR (MDRD) Non-Af 128 mL/min (>60) 09/21/17 06:57 BUN/Creatinine Ratio 9.9 RATIO (10-20) L 09/21/17 06:57 Glucose 185 mg/dL (74-106) H 09/21/17 06:57 Assessment/Plan: Psychotropic Medications: Unnecessary Medications: Bowel Regimen: - Provider Comments Provider responsibility: Provider responsible to enter orders to implement recommendations Provider Comments to Recommendations by Pharmacy: Agree
--- NOTE | 2017-09-21 13:30 | NURSING ---
Dr. Howard reviewed AM labs, NNO
[2017-09-21 16:00] VITALS: BP 159/89; PULSE 87; RESP 20; TEMP 37.1; O2SAT 93
[2017-09-22] MEDS: HYDROcodone Bitartrate/Apap 5/325 Tablet PO ×4 (00:16→21:11)
[2017-09-22] MEDS: Ondansetron ODT 4 MG Tablet PO ×4 (00:17→19:50)
[2017-09-22] MEDS: Enoxaparin 40 MG/0.4 ML Syringe SC (06:12)
[2017-09-22] MEDS: Atenolol 100 MG Tablet PO (06:13)
[2017-09-22] MEDS: Levothyroxine 75 MCG Tablet PO (06:13)
[2017-09-22 15:36] VITALS: BP 136/80; PULSE 72; RESP 18; TEMP 36.9; O2SAT 97
[2017-09-22] MEDS: Mag Hydrox/Al Hydrox/Simeth 30 ML UDC 15 ML PO (19:52)
[2017-09-23] MEDS: Atenolol 100 MG Tablet PO (04:42)
[2017-09-23] MEDS: Levothyroxine 75 MCG Tablet PO (04:42)
[2017-09-23] MEDS: Enoxaparin 40 MG/0.4 ML Syringe SC (04:42)
[2017-09-23] MEDS: Ondansetron ODT 4 MG Tablet PO ×3 (04:45→23:04)
[2017-09-23] MEDS: HYDROcodone Bitartrate/Apap 5/325 Tablet PO ×3 (06:51→23:14)
[2017-09-23 16:00] VITALS: BP 156/76; PULSE 69; RESP 20; TEMP 36.9; O2SAT 96
[2017-09-24] MEDS: HYDROcodone Bitartrate/Apap 5/325 Tablet PO ×3 (05:35→23:14)
[2017-09-24] MEDS: Ondansetron ODT 4 MG Tablet PO (05:36)
[2017-09-24] MEDS: Levothyroxine 75 MCG Tablet PO (05:36)
[2017-09-24] MEDS: Atenolol 100 MG Tablet PO (05:37)
[2017-09-24] MEDS: Enoxaparin 40 MG/0.4 ML Syringe SC (05:37)
--- NOTE | 2017-09-24 08:35 | NURSING ---
DR QUESADA NOTIFIED OF PT C/O LEG PAIN REQUESTING ARUN SKINNER. ORDER OBTAINED.
--- NOTE | 2017-09-24 09:50 | CASEMGMT ---
Plan of care meeting held. Resident present, no support person present at this time. No discharge date set at this time. Resident to continue with further care and treatment on the Transitional Care Unit. Resident plans to discharge home alone at time of discharge. Support given. Will continue to follow. Deborah ELLIS, [employer] SALES ASSOCIATE
[2017-09-24 15:49] VITALS: BP 135/66; PULSE 70; RESP 16; TEMP 36.7; O2SAT 97
--- NOTE | 2017-09-24 16:06 | CASEMGMT ---
Brief interview for mental status (BIMS) and resident mood interview (PHQ-9) completed on this day. BIMS score 15/15. PHQ-9 score 12/03
[2017-09-25] MEDS: Levothyroxine 75 MCG Tablet PO (06:27)
[2017-09-25] MEDS: Enoxaparin 40 MG/0.4 ML Syringe SC (06:27)
[2017-09-25] MEDS: Atenolol 100 MG Tablet PO (06:27)
[2017-09-25] MEDS: HYDROcodone Bitartrate/Apap 5/325 Tablet PO ×3 (06:50→21:32)
[2017-09-25 09:37] VITALS: PULSE 63; RESP 18; O2SAT 96
[2017-09-25] MEDS: Ondansetron ODT 4 MG Tablet PO ×2 (11:46→23:21)
[2017-09-25 16:00] VITALS: BP 124/81; PULSE 70; RESP 20; TEMP 36.8; O2SAT 97
--- NOTE | 2017-09-25 23:00 | NURSING ---
Pt found up and transferring in room without calling for assistance. Pt educated on the importance of calling out for assistance for pt safety. This nurse informed pt an alarm will be applied if pt is seen self transferring again. Pt AOx3 and verbalized understanding. Will continue to monitor.
[2017-09-25] MEDS: Mag Hydrox/Al Hydrox/Simeth 30 ML UDC 15 ML PO (23:54)
[2017-09-26] MEDS: HYDROcodone Bitartrate/Apap 5/325 Tablet PO ×4 (03:32→22:57)
[2017-09-26] MEDS: Atenolol 100 MG Tablet PO (04:02)
[2017-09-26] MEDS: Levothyroxine 75 MCG Tablet PO (04:02)
[2017-09-26] MEDS: Enoxaparin 40 MG/0.4 ML Syringe SC (04:03)
--- NOTE | 2017-09-26 06:54 | NURSING ---
This nurse walked by pt room to see pt standing, call light not activated. Pt informed this nurse she has to go to the bathroom. This nurse assisted pt to restroom and reminded pt she needs to call out for assistance. Pt stated, Well, I have called out before and people just leave me sitting back here and I almost pee my pants. This nurse informed pt for her safety, an alarm will be applied in order to allow staff to know when pt transfers without calling for assistance. Pt very angrily state, I am reporting you. This nurse asked pt if she would like to speech with unit coordinator, pt declined at this time. Will continue to monitor and asses.
[2017-09-26 10:00] VITALS: PULSE 67; RESP 18; O2SAT 95
[2017-09-26 15:04] VITALS: BP 109/66; PULSE 68; RESP 16; TEMP 36.2; O2SAT 95
[2017-09-26] MEDS: Ondansetron ODT 4 MG Tablet PO ×2 (16:16→23:36)
[2017-09-27] MEDS: Enoxaparin 40 MG/0.4 ML Syringe SC (05:19)
[2017-09-27] MEDS: Levothyroxine 75 MCG Tablet PO (05:19)
[2017-09-27] MEDS: Atenolol 100 MG Tablet PO (05:24)
[2017-09-27 05:25] VITALS: BP 137/84; PULSE 72; RESP 15; O2SAT 95
[2017-09-27] MEDS: HYDROcodone Bitartrate/Apap 5/325 Tablet PO ×3 (05:29→18:20)
[2017-09-27] MEDS: Ondansetron ODT 4 MG Tablet PO ×3 (05:36→20:52)
[2017-09-27 10:00] VITALS: PULSE 74; RESP 18; O2SAT 94
[2017-09-27 13:42] VITALS: BP 137/78; PULSE 67; RESP 18; TEMP 36.6; O2SAT 97
[2017-09-27] MEDS: chlordiazePOXIDE 25 MG Capsule PO (20:08)
[2017-09-28] MEDS: chlordiazePOXIDE 25 MG Capsule PO ×3 (00:27→20:57)
[2017-09-28] MEDS: HYDROcodone Bitartrate/Apap 5/325 Tablet PO ×4 (00:27→18:43)
[2017-09-28 06:14] LABS: Absolute Lymphocyte Count 0.86 X10^3/ul (0.83-4.51); Absolute Neutrophil Count 4.2 X10^3/uL (2.0-7.7); Basophil# 0.04 X10^3/uL; Basophil% 0.7 % (0-1); Eosinophil# 0.26 X10^3/uL; Eosinophils% 4.3 % (0-5); Hematocrit 40.4 % (37-47); Hemoglobin 13.1 g/dl (12.0-15.0); Lymphocyte # 0.86 X10^3/ul (4.0); Lymphocyte % 14.3 % (19-41); Mean Corp Hgb Conc 32.4 g/gl (32-36); Mean Corpuscular Volume 101.8 fL (81-99); Mean Platelet Vol. 9.2 fl (6.2-12.0); Neutrophil # 4.23 X10^3/uL (2.7-7.7); Platelet Count 330 K/mm3 (150-450); RBC Distribution Width CV 14.4 % (11.6-14.6); RBC Distribution Width SD 53.1 fl (35.1-43.9); Red Blood Count 3.97 M/mm3 (4.2-5.4)
[2017-09-28 06:15] LABS: POSITIVE COUNT NO; POSITIVE DIFFERENTIAL NO; POSITIVE MORPHOLOGY NO
[2017-09-28 06:20] LABS: Anion Gap 7 (5-15); BUN 9 mg/dL (7-18); BUN/Creat Ratio 17.6 RATIO (10-20); Calcium,Total 8.9 mg/dL (8.5-10.1); Chloride 106 mmol/L (98-107); Creatinine, Serum 0.51 mg/dL (0.55-1.02); EST Glomerular Filtration Rate 126 mL/min (>60); Est Glom Filt Rate - Afr Amer 153 mL/min (>60); Estimated Creatinine Clearance 47.78 ml/min; Glucose 118 mg/dL (74-106); Potassium 3.9 mmol/L (3.5-5.1); Sodium Level 141 mmol/L (136-145)
[2017-09-28] MEDS: Enoxaparin 40 MG/0.4 ML Syringe SC (06:30)
[2017-09-28] MEDS: Ondansetron ODT 4 MG Tablet PO ×2 (06:30→18:44)
[2017-09-28] MEDS: Levothyroxine 75 MCG Tablet PO (06:31)
[2017-09-28] MEDS: Atenolol 100 MG Tablet PO (06:31)
[2017-09-28] MEDS: Tuberculin,Purif.prot.deriv. 50 TU/ML Vial 5 ML ID (10:22)
--- NOTE | 2017-09-28 12:26 | MDS.RN ---
Pain interview for magali 09/27/17 was completed on 09/25/17
[2017-09-28 14:01] VITALS: BP 133/63; PULSE 57; RESP 18; TEMP 36.7; O2SAT 95
[2017-09-28 20:04] VITALS: PULSE 81; RESP 17; O2SAT 97
--- NOTE | 2017-09-28 21:00 | NURSING ---
This nurse into pts room d/t pt requesting a tranquilizer. Pt was resting in bed watching TV. This nurse explained to pts we do not give those. Pt explained she was given a medication last HS 09/27 that she needs now to keep her sane. This nurse asked pt if she was anxious, SOB or having pain. Pt denied all but stated I am just pissed because the nurse told me I could have it all along and nobody gave it to me! Pt was unsure the name of the medication but states she was given it a couple times last HS. This nurse asked pt if it was Libirum. Pt stated Yes that is what I need! This nurse explained to pt it was for anxiety and that she had previously denied being anxious. Pt was demanding medication and becoming very rude with this nurse. Medication was administered per pts request. This nurse left the room and pt was resting in bed with call light in reach.
[2017-09-29] MEDS: Levothyroxine 75 MCG Tablet PO (06:20)
[2017-09-29] MEDS: Enoxaparin 40 MG/0.4 ML Syringe SC (06:20)
[2017-09-29] MEDS: Atenolol 100 MG Tablet PO (06:20)
[2017-09-29] MEDS: HYDROcodone Bitartrate/Apap 5/325 Tablet PO ×3 (06:23→23:07)
[2017-09-29 15:56] VITALS: BP 135/67; PULSE 59; RESP 18; TEMP 36.9
[2017-09-29 19:36] VITALS: PULSE 78; RESP 18; O2SAT 96
[2017-09-30] MEDS: HYDROcodone Bitartrate/Apap 5/325 Tablet PO ×3 (06:59→20:00)
[2017-09-30] MEDS: Levothyroxine 75 MCG Tablet PO (07:00)
[2017-09-30] MEDS: Enoxaparin 40 MG/0.4 ML Syringe SC (07:01)
[2017-09-30] MEDS: Atenolol 100 MG Tablet PO (07:01)
--- NOTE | 2017-09-30 12:17 | CASEMGMT ---
Social Work Spoke with resident in room. This social services manager communicating to resident that discharge date has been set for 10/03/17. Resident is agreeable to discharge date and plans to discharge home alone. This social services manager communicating that no further services are being recommended by therapy. Resident reporting to have no transportation home and is agreeable to this social services manager contacting [facility] Transportation services as the services is free for resident and resident is currently no using any assistive device. Resident reporting no further needs or any concerns on returning home. Support given. Telephone call to [facility] Transportation, [place], Transportation set up for 10/03/17 @ 11:30am. Notified resident and nursing staff. Nursing staff to have resident to main entrance at 11:30am on 10/03/17. Proposed discharge date: 10/03/17 PLAN: Discharge home alone. Deborah ELLIS, SYSTEMS ARCHITECT
--- NOTE | 2017-09-30 14:45 | MDS.RN ---
Information for the mds was obtained from review of the clinical record, interview of resident, staff, and direct observation of resident's care.
[2017-09-30 16:00] VITALS: BP 134/72; PULSE 70; RESP 20; TEMP 37.4; O2SAT 96
--- NOTE | 2017-09-30 21:14 | DCINST_ITS ---
- Discharge Diagnoses Current Active Problems: Current Active and Chronic Problems Abdominal pain (Acute) Nausea & vomiting (Acute) Alcohol abuse (Chronic) Hypertension (Chronic) Hypomagnesemia (Chronic) Hypothyroidism (Chronic) Anxiety (Chronic) You will use the following diet at home:: No restrictions, Regular Your food should be the consistency of: Regular Your liquids should be the consistency of: Regular/Thin Discharge Activity: Return to Normal Activity, May Shower, Use Walker Weight Bearing Status: Weight bearing as tolerated Call your doctor if you observe: Fever of 101 or Higher, Inability to urinate, Inability to have a bowel movement, Shortness of breath, Chest pain, Uncontrolled pain Allergies/Adverse Reactions: Allergies nickel [Nickel] Allergy (Verified 09/17/17 12:09) Rash Neuromuscular Blockers, Steroidal [Steroidal Neuromuscular Blockers] Adverse Reaction (Verified 09/17/17 17:07) ACTED WEIRD prochlorperazine edisylate [From Compazine] Adverse Reaction (Verified 09/17/17 12:09) disoriented prochlorperazine maleate [From Compazine] Adverse Reaction (Verified 09/17/17 17 :07) DISORIENTED Medications to take at Discharge Levothyroxine [Synthroid] 75 mcg PO DAILY 01/31/17 Atenolol [Tenormin (beta rené)] 100 mg PO DAILY 05/20/17 Chlordiazepoxide [Librium] 25 mg PO TID PRN PRN #20 cap 05/27/17 Hydrocodone Bitart/Apap 5-325 [[place] 5/325] 1 tablet PO Q6H PRN PRN 5 Days #20 tablet 09/30/17 The following prescriptions were given: Hydrocodone Bitart/Apap 5-325 [[place] 5/325] 1 tablet PO Q6H PRN PRN 5 Days #20 tablet PRN Reason: Moderate-severe pain Primary Care Physician: Brant Howard Chi, MD [COURTESY STAFF PHYSICIAN] - Please follow up with your Primary Care Physician in: 1 week. Proposed Discharge Date: 10/03/17
--- NOTE | 2017-09-30 21:14 | PCM.DC.SUM ---
Discharge Date and Diagnosis - Problem List Patient Problems: Active and Suspected Problems Abdominal pain (Acute) Nausea & vomiting (Acute) Date of Admission: 09/20/17 Date of Discharge: 10/03/17 - Primary Discharge Diagnosis Active and Suspected Problems Abdominal pain (Acute) Nausea & vomiting (Acute) - Secondary Discharge Diagnosis Chronic Problems Alcohol abuse (Chronic) Hypertension (Chronic) Hypomagnesemia (Chronic) Hypothyroidism (Chronic) Anxiety (Chronic) Rheumatoid arthritis (Chronic) Psoriasis (Chronic) Chronic back pain (Chronic) osteoarthritis Magnesium deficiency (Chronic) Alcohol intoxication (Chronic) Drug overdose (Chronic) Delusional disorder (Chronic) Bipolar disorder (Chronic) Hypothyroidism (Chronic) Chronic alcohol use (Chronic) Depression with H/o suicidal attempt (Chronic) Hospital Course and Treatment Imaging Results: 09/20/17 13:05 Diet: Cardiac/Low Cholesterol Food consistency:: Soft Liquid Consistency:: Regular/Thin Diet Comments: no gastric stimulant Operations: None Procedures: None Summary of Care Provided: The patient is a 67 year old Female with below past medical history significant for bipolar disorder, alcohol abuse, hospitalized for abdominal pain secondary to acute pancreatitis, alcohol abuse suspected, admitted to TCU with debility, here for rehabilitation, strengthening, prior to discharge home alone. [] Discharge home alone. Discharge Diet: No Restrictions Discharge Activity: Return to Normal Activity, May Shower, Use Walker Weight Bearing Status: Weight bearing as tolerated Call your doctor if you observe: Fever of 101 or Higher, Inability to urinate, Inability to have a bowel movement, Shortness of breath, Chest pain, Uncontrolled pain Home Medications: Medications to take at Discharge Levothyroxine [Synthroid] 75 mcg PO DAILY 01/31/17 Atenolol [Tenormin (beta rené)] 100 mg PO DAILY 05/20/17 Chlordiazepoxide [Librium] 25 mg PO TID PRN PRN #20 cap 05/27/17 Hydrocodone Bitart/Apap 5-325 [[place] 5/325] 1 tablet PO Q6H PRN PRN 5 Days #20 tablet 09/30/17 Following Prescrptions Were Given to Patient: Hydrocodone Bitart/Apap 5-325 [[place] 5/325] 1 tablet PO Q6H PRN PRN 5 Days #20 tablet PRN Reason: Moderate-severe pain Primary Care Physician: Brant Howard Chi, MD [COURTESY STAFF PHYSICIAN] - Please follow up with your Primary Care Physician in: 1 week. Disposition: Home Minutes spent on discharge:: 30 Patient Condition:: Good Medical Necessity - Tobacco Use Smoking Status: Current every day smoker Tobacco Use: Cigarettes Meaningful Use Info Meaningful Use Diagnoses (Choose all that apply): None applicable
[2017-09-30 22:54] VITALS: PULSE 67; O2SAT 97
[2017-10-01] MEDS: Enoxaparin 40 MG/0.4 ML Syringe SC (06:14)
[2017-10-01] MEDS: Atenolol 100 MG Tablet PO (06:14)
[2017-10-01] MEDS: Levothyroxine 75 MCG Tablet PO (06:14)
[2017-10-01] MEDS: HYDROcodone Bitartrate/Apap 5/325 Tablet PO ×3 (06:17→19:30)
[2017-10-01 06:19] VITALS: BP 137/77; PULSE 76
[2017-10-01 16:00] VITALS: BP 127/64; PULSE 67; RESP 20; TEMP 36.6; O2SAT 95
[2017-10-01 19:35] VITALS: PULSE 78; O2SAT 97
[2017-10-02 05:45] VITALS: BP 148/67; PULSE 71
[2017-10-02] MEDS: Atenolol 100 MG Tablet PO (05:45)
[2017-10-02] MEDS: Enoxaparin 40 MG/0.4 ML Syringe SC (05:45)
[2017-10-02] MEDS: Levothyroxine 75 MCG Tablet PO (05:45)
[2017-10-02] MEDS: HYDROcodone Bitartrate/Apap 5/325 Tablet PO ×2 (05:51→16:27)
[2017-10-02] MEDS: Triamcinolone Acetonide 40 MG/ML Vial 80 MG IM (09:32)
[2017-10-02 16:00] VITALS: BP 141/62; PULSE 68; RESP 16; TEMP 36; O2SAT 95
[2017-10-03] MEDS: HYDROcodone Bitartrate/Apap 5/325 Tablet PO (02:28)
[2017-10-03] MEDS: Enoxaparin 40 MG/0.4 ML Syringe SC (06:14)
[2017-10-03] MEDS: Atenolol 100 MG Tablet PO (06:14)
[2017-10-03] MEDS: Levothyroxine 75 MCG Tablet PO (06:14)
[2017-10-03 09:42] VITALS: BP 141/58; PULSE 65; RESP 20; TEMP 36.7; O2SAT 95
--- NOTE | 2017-10-03 12:15 | CASEMGMT ---
Social Work Nursing reporting to this certified social workers in health care that resident is now not wanting to discharge home on this day. This certified social workers in health care meeting with resident and nursing in room. Nursing has checked with Dr. Howard and Dr. Howard is reporting that there is no medical reason for resident to continue with stay. Resident is reporting to have limited support within the community and to have no way to picking up prescriptions. This certified social workers in health care asking resident if it would be okay if prescriptions are sent to the retail pharmacy at [facility] so resident can case picker the prescriptions when discharged as the pharmacy is within the same facility. Resident agreeable. Resident voicing to be concerned about discharging home and if resident would become sick or . This certified social workers in health care educating resident that resident is able to then contact 911 or go to the emergency room or contact primary physician. Resident voicing understanding and stating concern that the emergency room would not admit resident then. This certified social workers in health care explaining that if there is a reason for a medical admission then the emergency room will admit, but if there is no medical reason for admission then resident would need to follow up with primary physician. Resident voicing frustration but is agreeable to discharge home on this day. Resident transportation changed to 12:30. Resident walking around the room and reporting to be able to move around without help. This certified social workers in health care also completing a suicide assessment with resident, resident reporting to not be suicidal and to have no suicidal ideations. Support given. Resident planning to still discharge on this day. Proposed discharge date: 10/03/17 PLAN: Discharge home to home alone. Note: Also spoke with resident about pursuing counseling or possibly the behavioral health program, resident declining both at this time. Deborah ELLIS, RESTORATIVE AIDE
== END 2017-10-03 11:45 | disposition home or self-care (01) | DRG 947 ==
PROVIDERS: Admitting Provider Family Medicine Geriatric Medicine; Visit Provider Family Medicine Geriatric Medicine
DX: R53.81 Other malaise (principal); K85.90 Acute pancreatitis without necrosis or infection, unspecified; F31.9 Bipolar disorder, unspecified; I10 Essential (primary) hypertension; E03.9 Hypothyroidism, unspecified; M06.9 Rheumatoid arthritis, unspecified; F41.9 Anxiety disorder, unspecified; L40.8 Other psoriasis; F22 Delusional disorders; F10.10 Alcohol abuse, uncomplicated; Z79.899 Other long term (current) drug therapy; Z23 Encounter for immunization; F17.210 Nicotine dependence, cigarettes, uncomplicated; M19.90 Unspecified osteoarthritis, unspecified site
CPT/HCPCS: 36415; 80048; 85025; 97110; 97116; 97161; 97166; 97530; 97535; 90670

== ENCOUNTER → 2017-10-08 12:32 | Outpatient (CLI) | payer MEDICARE, SELFPAY ==
--- NOTE | 2017-10-08 12:49 | RAD_ITS ---
STUDY: X-RAY - LEFT KNEE REASON FOR EXAM: Pain. TECHNIQUE: 4 view(s) of the knee. COMPARISON: None. FINDINGS: Normal visualized distal femur. Normal visualized proximal tibia and fibula. Normal proximal tibiofibular articulation. Normal medial femorotibial compartment. Normal lateral femorotibial compartment. Normal patellofemoral articulation. The soft tissue structures are unremarkable. RAD/Knee 4 or More Views IMPRESSION: Normal x-ray examination of the left knee. Electronically Signed: Babar Bellamy MD at 13:29 EDT Tel , Service support ,
--- NOTE | 2017-10-08 12:50 | RAD_ITS ---
STUDY: X-RAY - RIGHT KNEE REASON FOR EXAM: Pain. TECHNIQUE: 4 view(s) of the knee. COMPARISON: None. FINDINGS: Normal visualized distal femur. Normal visualized proximal tibia and fibula. Normal proximal tibiofibular articulation. There is a subchondral cyst of the medial tibial plateau measuring 1.2 cm in length without substantial joint space narrowing of the medial femorotibial compartment. Normal lateral femorotibial compartment. Normal patellofemoral articulation. The soft tissue structures are unremarkable. RAD/Knee 4 or More Views IMPRESSION: Subchondral cyst of the right tibial plateau. Otherwise, unremarkable x-ray examination of the right knee. Electronically Signed: Baabr Bellamy MD at 13:30 EDT Tel , Service support ,
--- NOTE | 2017-10-08 13:00 | RAD_ITS ---
STUDY: X-RAY - LUMBAR SPINE REASON FOR EXAM: Female, 67 years old. Pain. TECHNIQUE: 3 view(s) of the lumbar spine were obtained. COMPARISON: CT abdomen and pelvis May 24, 2017. FINDINGS: Normal lumbar lordosis. There is a 6.5 degree levoscoliosis of the lumbar spine centered at L3. There is a normal alignment of the vertebrae. There is stable minor multilevel endplate spondylosis of the lumbar vertebrae. Normal disc space heights. There is no demonstrated osseous destructive lesion or fracture. There are degenerative changes of the bilateral facet articulations. The soft tissue structures are unremarkable. RAD/Lumbar Spine 2 or 3 Views IMPRESSION: Stable degenerative changes of the lumbar spine, primarily involving the facet articulations. Electronically Signed: Ilia Guzmán MD at 19:45 EDT , Service support ,
== END ==
PROVIDERS: Visit Provider Family Medicine Geriatric Medicine
DX: M47.896 Other spondylosis, lumbar region (principal); M41.86 Other forms of scoliosis, lumbar region; M25.861 Other specified joint disorders, right knee; M25.562 Pain in left knee; E55.9 Vitamin D deficiency, unspecified; I10 Essential (primary) hypertension; Z13.89 Encounter for screening for other disorder
CPT/HCPCS: 72100; 73564

== ENCOUNTER → 2017-10-15 15:32 | Outpatient (CLI) | payer SELFPAY ==
--- NOTE | 2017-10-15 15:34 | CT_ITS ---
STUDY: LOW DOSE CT LUNG CANCER SCREENING REASON FOR EXAM: Female, 67 years old. History of tobacco abuse. RADIATION DOSAGE (If Supplied By Facility): CTDIvol = ( 2.01 ) mGy, DLP = ( 67.96 ) mGycm TECHNIQUE: No contrast was administered. Low dose technique was utilized (average mAS-38 and kVp 120). 1.25 mm axial source images with a slice interval of 1.25-mm were reconstructed in lung windows. 2.5 mm axial source images with a slice interval of 2.5-mm were reconstructed in lung windows. 5.0 mm axial source images with a slice interval of 5.0-mm were reconstructed in soft tissue windows. Nodule measured using lung windows on PACS and/or independent workstation with automated measurement of minimum and maximum diameter. Nodule measurement reported as average diameter rounded to the nearest whole number. Growth is defined as an increase ins size of greater than 1.5 mm. COMPARISON: None. NODULES: No suspicious nodules are seen. Aorta: Atherosclerotic plaque formation of the aortic arch. Coronary arteries: Unremarkable Other chest and abdominal findings: Mild degree of increased markings at the lung apices suggestive of mild scarring. CT/Low Dose CT Lung Screening IMPRESSION: Lung-RADS category 2 - Continue annual screening with LDCT in 12 months. IMPORTANT NOTES FOR USE: ACR Lung-RADS Version 1.0 Assessment Categories Release Date: October 04, 2013 Category: Coded 0-4 bases on nodule(s) with highest degree of suspicion. Negative screen is defined as categories 1 and 2; a positive screen is defined as categories 3 and 4. Category 3 and 4A nodules that are unchanged on interval CT should be coded as category 2, and individuals returned to screening in 12 months. Category 4X: Category 3 or 4 nodules with additional imaging findings that increase the suspicion of lung cancer, such as spiculation, GGN that doubles in size in 1 year, enlarged lymph notes, etc. Category Modifiers: S (significant finding unrelated to lung cancer) and C (prior history of treated lung cancer) may be added to the 0-4 Lung-RADS Electronically Signed: Edison Varela MD at 15:30 EDT Tel [phone], Service support ,
== END ==
PROVIDERS: Family Provider Family Medicine Geriatric Medicine; PCP Family Medicine Geriatric Medicine; Visit Provider Family Medicine Geriatric Medicine
DX: Z12.2 Encounter for screening for malignant neoplasm of respiratory organs (principal); Z87.891 Personal history of nicotine dependence
CPT/HCPCS: G0297

== ENCOUNTER 2017-10-21 16:37 | Inpatient (IN) | payer MEDICARE, SELFPAY ==
[2017-10-21 16:38] VITALS: BP 138/85; PULSE 89; RESP 16; TEMP 36.5; O2SAT 96; BMI 29.9
--- NOTE | 2017-10-21 17:30 | ED.VISSUMM ---
- ER Visit Summary Date of Service: 10/21/17 Chief Complaint: Nausea History of Present Illness: The patient is a 67 F with nausea, vomiting, and abdominal pain for 4 years. She is also requesting a refill of her Synthroid. She reports pain all over and is out of her pain medication. It is hard for her to get around her house. She has a history of alcohol abuse, bipolar disorder, anxiety, suicidality, hypothyroidism, hypertension, rheumatoid arthritis, and pancreatitis among other chronic medical conditions. Physical Examination: Afebrile and vital signs unremarkable. Patient is alert and oriented and in no acute distress. HEENT exam unremarkable. Skin normal in color without jaundice. No rashes. Heart regular. Lungs clear. Abdomen soft and nontender. Good range of motion for all joints. Good strength and sensation grossly. Test Results: Labs pending Emergency Department Course and Treatment: Patient has chronic pain and chronic nausea and vomiting. She is requesting refills of her pain medication and thyroid medication. Her symptoms have been going on for years. I did treat her with Zofran and IV fluids. She received 1 dose of [place]. Patient has a history of mental health disease, but she is not suicidal, homicidal. She is able to take care of herself and does not meet criteria for involuntary admission. CBC unremarkable. CMP shows a sodium of 133, chloride 97, CO2 20, anion gap 16, BUN 20, alk phos 118, ALT 67, AST 53. Lipase 2966. Patient presents with pancreatitis. She has similar symptoms to prior episodes. Hospitalist was contacted for admission. Treatment Plan: As above Disposition: Admission Impression: 1. Pancreatitis This note was generated with [employer] dictation software. It may contain incorrect words, spelling, and punctuation that were not noted in review of the chart prior to signing ED Disposition - Plan for ED Patient: Chief Complaint: Weakness Referrals: Brant Howard Chi, MD [Primary Care Provider] -
--- NOTE | 2017-10-21 17:33 | ED.DCSUM_ITS ---
- ER Visit Summary Date of Service: 10/21/17 Chief Complaint: Nausea History of Present Illness: The patient is a 67 F with nausea, vomiting, and abdominal pain for 4 years. She is also requesting a refill of her Synthroid. She reports pain all over and is out of her pain medication. It is hard for her to get around her house. She has a history of alcohol abuse, bipolar disorder, anxiety, suicidality, hypothyroidism, hypertension, rheumatoid arthritis, and pancreatitis among other chronic medical conditions. Physical Examination: Afebrile and vital signs unremarkable. Patient is alert and oriented and in no acute distress. HEENT exam unremarkable. Skin normal in color without jaundice. No rashes. Heart regular. Lungs clear. Abdomen soft and nontender. Good range of motion for all joints. Good strength and sensation grossly. Test Results: Labs pending Emergency Department Course and Treatment: Patient has chronic pain and chronic nausea and vomiting. She is requesting refills of her pain medication and thyroid medication. Her symptoms have been going on for years. I did treat her with Zofran and IV fluids. She received 1 dose of [place]. Patient has a history of mental health disease, but she is not suicidal, homicidal. She is able to take care of herself and does not meet criteria for involuntary admission. CBC unremarkable. CMP shows a sodium of 133, chloride 97, CO2 20, anion gap 16 , BUN 20, alk phos 118, ALT 67, AST 53. Lipase 2966. Patient presents with pancreatitis. She has similar symptoms to prior episodes. Hospitalist was contacted for admission. Treatment Plan: As above Disposition: Admission Impression: 1. Pancreatitis This note was generated with [employer] dictation software. It may contain incorrect words, spelling, and punctuation that were not noted in review of the chart prior to signing ED Disposition - Plan for ED Patient: Chief Complaint: Weakness Referrals: Brant Howard Chi, MD [Primary Care Provider] -
[2017-10-21] MEDS: Ondansetron ODT 4 MG Tablet PO (17:55)
[2017-10-21] MEDS: HYDROcodone Bitartrate/Apap 5/325 Tablet PO (17:55)
[2017-10-21] MEDS: 0.9% Normal Saline 1,000 ML 1000 ML IV (17:55)
[2017-10-21 17:57] LABS: Absolute Lymphocyte Count 0.85 X10^3/ul (0.83-4.51); Absolute Neutrophil Count 8.3 X10^3/uL (2.0-7.7); Basophil# 0.01 X10^3/uL; Basophil% 0.1 % (0-1); Eosinophil# 0.04 X10^3/uL; Eosinophils% 0.4 % (0-5); Hematocrit 44.4 % (37-47); Hemoglobin 14.7 g/dl (12.0-15.0); Lymphocyte # 0.85 X10^3/ul (4.0); Lymphocyte % 8.6 % (19-41); Mean Corp Hgb Conc 33.1 g/gl (32-36); Mean Corpuscular Hgb 32.6 pg (27.0-32.0); Mean Corpuscular Volume 98.4 fL (81-99); Mean Platelet Vol. 8.7 fl (6.2-12.0); Monocyte# 0.61 X10^3/uL; Monocyte% 6.1 % (0-10); Neutrophil # 8.33 X10^3/uL (2.7-7.7); Platelet Count 210 K/mm3 (150-450); RBC Distribution Width CV 14.1 % (11.6-14.6); RBC Distribution Width SD 50.2 fl (35.1-43.9); Red Blood Count 4.51 M/mm3 (4.2-5.4); White Blood Count 9.9 K/mm3 (4.4-11.0)
[2017-10-21 18:01] LABS: POSITIVE COUNT NO; POSITIVE DIFFERENTIAL NO; POSITIVE MORPHOLOGY NO
[2017-10-21 18:19] LABS: AST(SGOT) 53 U/L (15-37); Alanine Aminotransfer ALT/SGPT 67 U/L (13-56); Alkaline Phosphatase 118 U/L (45-117); Anion Gap 16 (5-15); BUN 20 mg/dL (7-18); BUN/Creat Ratio 25.2 RATIO (10-20); Calcium,Total 9.1 mg/dL (8.5-10.1); Chloride 97 mmol/L (98-107); EST Glomerular Filtration Rate 76 mL/min (>60); Est Glom Filt Rate - Afr Amer 92 mL/min (>60); Estimated Creatinine Clearance 59.72 ml/min; Globulin 4.2 g/dL (2.2-4.2); Glucose 196 mg/dL (74-106); Lipase 2966 U/L (73-393); Potassium 4.4 mmol/L (3.5-5.1); Protein, Total 8.2 g/dL (6.4-8.2); Sodium Level 133 mmol/L (136-145)
[2017-10-21 18:47] VITALS: BP 142/72; PULSE 77; RESP 18; O2SAT 96
--- NOTE | 2017-10-21 19:38 | PCM.HP.STD ---
Problem List (1) Pancreatitis Status: Acute (2) Fibromyalgia Status: Chronic (3) Dysphagia Status: Chronic (4) Hypertension Status: Chronic (5) Anxiety Status: Chronic (6) Rheumatoid arthritis Status: Chronic (7) Psoriasis Status: Chronic (8) Bipolar disorder Status: Chronic (9) Hypothyroidism Status: Chronic History of Present Illness Date of Admission: 10/21/17 Chief Complaint: pain The patient is a 67 year old F resents to the emergency room with chronic pain. Patient complains of pain in her joints and muscles and just weakness and trouble getting around. Patient complains of trouble swallowing and states that it a nightmare when she drinks liquids. Patient just came with a battery of complaints and in the workup they did do a lipase that was over 1999. Patient incidentally does complain of some abdominal pain when asked but it was not her primary complaint presenting to the hospital. Patient is being admitted for pancreatitis. Patient denies any alcohol use but is not forthcoming as the last time that she drink alcohol. [] Past Medical History Past Medical History (Chronic Problems): Chronic Problems Alcohol abuse (Chronic) Hypertension (Chronic) Hypomagnesemia (Chronic) Hypothyroidism (Chronic) Anxiety (Chronic) Fibromyalgia (Chronic) Dysphagia (Chronic) Rheumatoid arthritis (Chronic) Psoriasis (Chronic) Chronic back pain (Chronic) osteoarthritis Magnesium deficiency (Chronic) Alcohol intoxication (Chronic) Drug overdose (Chronic) Delusional disorder (Chronic) Bipolar disorder (Chronic) Hypothyroidism (Chronic) Chronic alcohol use (Chronic) Depression with H/o suicidal attempt (Chronic) Allergies nickel [Nickel] Allergy (Verified 10/21/17 16:42) Rash Neuromuscular Blockers, Steroidal [Steroidal Neuromuscular Blockers] Adverse Reaction (Verified 10/21/17 16:42) ACTED WEIRD prochlorperazine edisylate [From Compazine] Adverse Reaction (Verified 10/21/17 16:42) disoriented prochlorperazine maleate [From Compazine] Adverse Reaction (Verified 10/21/17 16:42) DISORIENTED Home Medications: Ambulatory Orders Medication Instructions Recorded Levothyroxine [Synthroid] 75 mcg PO DAILY 01/31/17 Atenolol [Tenormin (beta rené)] 100 mg PO DAILY 05/20/17 Surgical History: no surgical history Psychiatric History: Anxiety, Bipolar, Depression, - - Alcohol Abuse. MOLD TECHNICIAN History: No pertinent MOLD TECHNICIAN history Smoking Status: Light Smoker (<10/day) Tobacco Use: Cigarettes Alcohol: None Drugs: None - *Family History Maternal History Items: Unknown, No pertinent history Paternal History Items: Unknown Review of Systems Constitutional: Reports: Anorexia. Denies: Chills, Fever Eyes: Denies: Blurred vision, Double vision HEENT: Denies: Head Aches, Sinus Congestion, Sinus Drainage Cardiovascular: Denies: Chest Pain, Palpitations Respiratory: Reports: Cough, Shortness of Breath Gastrointestinal: Reports: Abdominal Pain, Diarrhea, Nausea. Denies: Vomiting Genitourinary: Denies: Dysuria, Incontinence Musculoskeletal: Reports: Joint Pain, Joint Tenderness, Leg Pain, Muscle pain, Neck Pain, Shoulder Pain. Denies: Arm Pain Skin: Reports: Dryness, Lesions Neurological: Reports: Numbness - Is complaining of paresthesias on the plantar aspect of her feet as well as the palmar aspect of her left hand.. Denies: Focal weakness, Tingling Psychiatric: Denies: Anxiety, Depression Endocrine: Reports: Heat/ Cold Intolerance. Denies: Change in Body Habitus Hematologic/ Lymphatic: Denies: Easy Bruising, Easy Bleeding, Hx of blood clot VTE Information - Inpt Only VTE Present on Admission: No VTE Pharm Prophylaxis ordered?: Yes Patient Problems: Active and Suspected Problems Pancreatitis (Acute) - Physical Exam General: Alert, Cooperative, No apparent distress HEENT: Atraumatic, Normocephalic Oral: Moist Mucosa, No Gingival or Mucosal Lesions/ Ulcerations Neck: No Nodes, Thyroid Normal Size and Texture Lungs: Clear to auscultation, Normal air movement, No rhonchi, No wheeze, - - Poor inspiratory effort Cardiovascular: Regular rate, Regular Rhythm, Normal S1, Normal S2 Abdomen: Bowel Sounds Present, Soft, Non-Distended, Tender - Most prominent in the right upper quadrant. Extremities: No edema, No Calf Tenderness Skin: No rashes, - - Some superficial excoriations on her arms. Musculoskeletal: No Muscle Wasting, - - Diffuse generalized mild myalgias Neurological: Facial Droop, Sensory exam intact to light touch and pain Vital Signs Temp Pulse Resp BP Pulse Ox 36.5 C L 77 18 142/72 H 96 10/21/17 16:38 10/21/17 18:47 10/21/17 18:47 10/21/17 18:47 10/21/17 18:47 Oxygen Delivery Method Room Air Weight: 81.647 kg Body Mass Index (BMI) 29.9 Finger Stick Blood Glucose 103 Laboratory Tests Past 24 Hrs 10/21/17 10/21/17 17:45 17:45 WBC 9.9 RBC 4.51 Hgb 14.7 Hct 44.4 MCV 98.4 MCH 32.6 H MCHC 33.1 RDW 14.1 RDW Differential 50.2 H Plt Count 210 MPV 8.7 Immature Gran % (Auto) 0.800 Neut % (Auto) 84.0 H Lymph % (Auto) 8.6 L [place] % (Auto) 6.1 Eos % (Auto) 0.4 Baso % (Auto) 0.1 Absolute Neuts (auto) 8.3 H Absolute Lymphs (auto) 0.85 Total Counted Not Reportable Sodium 133 L Potassium 4.4 Chloride 97 L Carbon Dioxide 20.0 L Anion Gap 16 H BUN 20 H Creatinine 0.80 Estim Creat Clear Calc 59.72 Est GFR (MDRD) Af Amer 92 Est GFR (MDRD) Non-Af 76 BUN/Creatinine Ratio 25.2 H Glucose 196 H Calcium 9.1 Total Bilirubin 0.80 AST 53 H ALT 67 H Alkaline Phosphatase 118 H Total Protein 8.2 Albumin 4.0 Globulin 4.2 Albumin/Globulin Ratio 1.0 Lipase 2966 H Assessment/Plan Active and Suspected Problems Pancreatitis (Acute) 1. Acute pancreatitis Patient has had an extensive workup here with ultrasounds, CAT scans, IgG4 levels, which have all been unremarkable. I do not feel it necessary to recheck those at this time given the fact that they have been continuously negative on several occasions. However, I would reconsider that if patient's condition does get worse. I have recommended the patient on several occasions when I seen her in the past to follow-up with a manager radio for further evaluation of her recurrent pancreatitis. Patient has repeatedly said that she will but each time which comes back she said that she is not able to get out and see a gastro-enterologist. This is been at least since March 2017. While patient is here, she will receive IV fluids and pain medication. Reevaluate lipase in the morning. Patient will be on a clear liquid diet for now. Patient's primary complaints are coming to the hospital actually did not focus on her abdomen but resistant for generalized myalgias. 2. Dysphagia Patient states that she has trouble swallowing but denies vomiting fever water back up when she eats or drinks. Patient has had cookie swallows, upper GIs which have been normal. Patient is okay with allowing speech therapy to evaluate her. Thus far, there is been no organic etiology identified for her dysphagia. 3. Rheumatoid arthritis I question this diagnosis as patient's previously had negative rheumatoid factor and negative anti-CCP levels. Patient had been seeing garment supervisor in town but states that she did not show up for an appointment and has not been able to get reestablished. I recommend the patient to get established with a garment supervisor for further evaluation. Patient states she has autoimmune diseases by reading a book on them. 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 She also states that her alopecia is an autoimmune process. I asked the patient if she had alopecia universalis, and she looked at me as though she never heard that word before. And on evaluation patient still does have her eyebrows and eyelashes. I told patient that she likely does not have alopecia universalis, but rather just alopecia. Back in 2014 patient did have an abnormal NAIN level. I did not see any additional follow-up studies for that but patient to follow-up with rheumatology to see if that would warrant further evaluation. I am unclear as to what the titer was for it, as it just gave a positive test. 4. Diabetes mellitus type 2 Patient is on no medications for this We will check micro-blood sugars and put her on a moderate dose sliding scale Check an A1c level 5. DVT prophylaxis with Lovenox 6. Bipolar disorder and underlying psychiatric issues, comp getting care. Patient is very perseverating on having an autoimmune disease but a question if there is such a disease process that may be going on. Would recommend patient following up with psychiatry as outpatient. Code Visit Inpatient E&M: 96291 Init Hosp L3
--- NOTE | 2017-10-21 19:50 | HP.PCM_ITS ---
Problem List (1) Pancreatitis Status: Acute (2) Fibromyalgia Status: Chronic (3) Dysphagia Status: Chronic (4) Hypertension Status: Chronic (5) Anxiety Status: Chronic (6) Rheumatoid arthritis Status: Chronic (7) Psoriasis Status: Chronic (8) Bipolar disorder Status: Chronic (9) Hypothyroidism Status: Chronic History of Present Illness Date of Admission: 10/21/17 Chief Complaint: pain The patient is a 67 year old F resents to the emergency room with chronic pain. Patient complains of pain in her joints and muscles and just weakness and trouble getting around. Patient complains of trouble swallowing and states that it a nightmare when she drinks liquids. Patient just came with a battery of complaints and in the workup they did do a lipase that was over 1999. Patient incidentally does complain of some abdominal pain when asked but it was not her primary complaint presenting to the hospital. Patient is being admitted for pancreatitis. Patient denies any alcohol use but is not forthcoming as the last time that she drink alcohol. [] Past Medical History Past Medical History (Chronic Problems): Chronic Problems Alcohol abuse (Chronic) Hypertension (Chronic) Hypomagnesemia (Chronic) Hypothyroidism (Chronic) Anxiety (Chronic) Fibromyalgia (Chronic) Dysphagia (Chronic) Rheumatoid arthritis (Chronic) Psoriasis (Chronic) Chronic back pain (Chronic) osteoarthritis Magnesium deficiency (Chronic) Alcohol intoxication (Chronic) Drug overdose (Chronic) Delusional disorder (Chronic) Bipolar disorder (Chronic) Hypothyroidism (Chronic) Chronic alcohol use (Chronic) Depression with H/o suicidal attempt (Chronic) Allergies nickel [Nickel] Allergy (Verified 10/21/17 16:42) Rash Neuromuscular Blockers, Steroidal [Steroidal Neuromuscular Blockers] Adverse Reaction (Verified 10/21/17 16:42) ACTED WEIRD prochlorperazine edisylate [From Compazine] Adverse Reaction (Verified 10/21/17 16:42) disoriented prochlorperazine maleate [From Compazine] Adverse Reaction (Verified 10/21/17 16 :42) DISORIENTED Home Medications: Ambulatory Orders Medication Instructions Recorded Levothyroxine [Synthroid] 75 mcg PO DAILY 01/31/17 Atenolol [Tenormin (beta rené)] 100 mg PO DAILY 05/20/17 Surgical History: no surgical history Psychiatric History: Anxiety, Bipolar, Depression, - - Alcohol Abuse. SUPERVISOR GRINDING History: No pertinent SUPERVISOR GRINDING history Smoking Status: Light Smoker (<10/day) Tobacco Use: Cigarettes Alcohol: None Drugs: None - *Family History Maternal History Items: Unknown, No pertinent history Paternal History Items: Unknown Review of Systems Constitutional: Reports: Anorexia. Denies: Chills, Fever Eyes: Denies: Blurred vision, Double vision HEENT: Denies: Head Aches, Sinus Congestion, Sinus Drainage Cardiovascular: Denies: Chest Pain, Palpitations Respiratory: Reports: Cough, Shortness of Breath Gastrointestinal: Reports: Abdominal Pain, Diarrhea, Nausea. Denies: Vomiting Genitourinary: Denies: Dysuria, Incontinence Musculoskeletal: Reports: Joint Pain, Joint Tenderness, Leg Pain, Muscle pain, Neck Pain, Shoulder Pain. Denies: Arm Pain Skin: Reports: Dryness, Lesions Neurological: Reports: Numbness - Is complaining of paresthesias on the plantar aspect of her feet as well as the palmar aspect of her left hand.. Denies: Focal weakness, Tingling Psychiatric: Denies: Anxiety, Depression Endocrine: Reports: Heat/ Cold Intolerance. Denies: Change in Body Habitus Hematologic/ Lymphatic: Denies: Easy Bruising, Easy Bleeding, Hx of blood clot VTE Information - Inpt Only VTE Present on Admission: No VTE Pharm Prophylaxis ordered?: Yes Patient Problems: Active and Suspected Problems Pancreatitis (Acute) - Physical Exam General: Alert, Cooperative, No apparent distress HEENT: Atraumatic, Normocephalic Oral: Moist Mucosa, No Gingival or Mucosal Lesions/ Ulcerations Neck: No Nodes, Thyroid Normal Size and Texture Lungs: Clear to auscultation, Normal air movement, No rhonchi, No wheeze, - - Poor inspiratory effort Cardiovascular: Regular rate, Regular Rhythm, Normal S1, Normal S2 Abdomen: Bowel Sounds Present, Soft, Non-Distended, Tender - Most prominent in the right upper quadrant. Extremities: No edema, No Calf Tenderness Skin: No rashes, - - Some superficial excoriations on her arms. Musculoskeletal: No Muscle Wasting, - - Diffuse generalized mild myalgias Neurological: Facial Droop, Sensory exam intact to light touch and pain Vital Signs Temp Pulse Resp BP Pulse Ox 36.5 C L 77 18 142/72 H 96 10/21/17 16:38 10/21/17 18:47 10/21/17 18:47 10/21/17 18:47 10/21/17 18:47 Oxygen Delivery Method Room Air Weight: 81.647 kg Body Mass Index (BMI) 29.9 Finger Stick Blood Glucose 103 Laboratory Tests Past 24 Hrs 10/21/17 10/21/17 17:45 17:45 WBC 9.9 RBC 4.51 Hgb 14.7 Hct 44.4 MCV 98.4 MCH 32.6 H MCHC 33.1 RDW 14.1 RDW Differential 50.2 H Plt Count 210 MPV 8.7 Immature Gran % (Auto) 0.800 Neut % (Auto) 84.0 H Lymph % (Auto) 8.6 L [place] % (Auto) 6.1 Eos % (Auto) 0.4 Baso % (Auto) 0.1 Absolute Neuts (auto) 8.3 H Absolute Lymphs (auto) 0.85 Total Counted Not Reportable Sodium 133 L Potassium 4.4 Chloride 97 L Carbon Dioxide 20.0 L Anion Gap 16 H BUN 20 H Creatinine 0.80 Estim Creat Clear Calc 59.72 Est GFR (MDRD) Af Amer 92 Est GFR (MDRD) Non-Af 76 BUN/Creatinine Ratio 25.2 H Glucose 196 H Calcium 9.1 Total Bilirubin 0.80 AST 53 H ALT 67 H Alkaline Phosphatase 118 H Total Protein 8.2 Albumin 4.0 Globulin 4.2 Albumin/Globulin Ratio 1.0 Lipase 2966 H Assessment/Plan Active and Suspected Problems Pancreatitis (Acute) 1. Acute pancreatitis * Patient has had an extensive workup here with ultrasounds, CAT scans, IgG4 levels, which have all been unremarkable. * I do not feel it necessary to recheck those at this time given the fact that they have been continuously negative on several occasions. However, I would reconsider that if patient's condition does get worse. * I have recommended the patient on several occasions when I seen her in the past to follow-up with a sales assistants and salespersons for further evaluation of her recurrent pancreatitis. Patient has repeatedly said that she will but each time which comes back she said that she is not able to get out and see a gastro- enterologist. This is been at least since March 2017. * While patient is here, she will receive IV fluids and pain medication. * Reevaluate lipase in the morning. * Patient will be on a clear liquid diet for now. * Patient's primary complaints are coming to the hospital actually did not focus on her abdomen but resistant for generalized myalgias. 2. Dysphagia * Patient states that she has trouble swallowing but denies vomiting fever water back up when she eats or drinks. * Patient has had cookie swallows, upper GIs which have been normal. * Patient is okay with allowing speech therapy to evaluate her. * Thus far, there is been no organic etiology identified for her dysphagia. 3. Rheumatoid arthritis * I question this diagnosis as patient's previously had negative rheumatoid factor and negative anti-CCP levels. * Patient had been seeing audit spec in town but states that she did not show up for an appointment and has not been able to get reestablished. I recommend the patient to get established with a audit spec for further evaluation. * Patient states she has autoimmune diseases by reading a book on them. 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 She also states that her alopecia is an autoimmune process. I asked the patient if she had alopecia universalis, and she looked at me as though she never heard that word before. And on evaluation patient still does have her eyebrows and eyelashes. I told patient that she likely does not have alopecia universalis, but rather just alopecia. * Back in 2014 patient did have an abnormal NAIN level. I did not see any additional follow-up studies for that but patient to follow-up with rheumatology to see if that would warrant further evaluation. I am unclear as to what the titer was for it, as it just gave a positive test. 4. Diabetes mellitus type 2 * Patient is on no medications for this * We will check micro-blood sugars and put her on a moderate dose sliding scale * Check an A1c level 5. DVT prophylaxis with Lovenox 6. Bipolar disorder and underlying psychiatric issues, comp getting care. Patient is very perseverating on having an autoimmune disease but a question if there is such a disease process that may be going on. Would recommend patient following up with psychiatry as outpatient. Code Visit Inpatient E&M: [id number] Init Hosp L3
[2017-10-21 20:05] VITALS: BMI 24.6
[2017-10-21 20:09] VITALS: BMI 24.7
[2017-10-21 20:28] VITALS: BP 132/87; PULSE 76; RESP 18; TEMP 37; O2SAT 97
[2017-10-21 20:29] VITALS: RESP 18; O2SAT 97
[2017-10-21] MEDS: 0.9% Normal Saline 1,000 ML 150 ML IV (21:17)
[2017-10-21] MEDS: Famotidine 20 MG Tablet PO (21:20)
[2017-10-21 21:26] LABS: Bedside Glucose 144 mg/dL (70-110)
[2017-10-21] MEDS: Ondansetron 4 MG/2 ML Vial IV (21:57)
[2017-10-21] MEDS: Morphine 4 MG/ML Syringe IV (23:53)
[2017-10-22 02:48] VITALS: BP 148/74; PULSE 84; RESP 18; TEMP 36.4; O2SAT 96
[2017-10-22] MEDS: Ondansetron 4 MG/2 ML Vial IV ×2 (04:02→23:37)
[2017-10-22] MEDS: 0.9% Normal Saline 1,000 ML 150 ML IV ×2 (04:02→10:12)
[2017-10-22] MEDS: Levothyroxine 75 MCG Tablet PO (05:05)
--- NOTE | 2017-10-22 06:01 | NURSING ---
Pt wiped and had some blood on tissue Say I started to have vaginal bleeding. Melody RN is aware.
[2017-10-22] MEDS: Morphine 4 MG/ML Syringe IV ×3 (06:08→21:09)
[2017-10-22 06:40] LABS: Bedside Glucose 132 mg/dL (70-110)
[2017-10-22 06:47] LABS: Absolute Lymphocyte Count 0.56 X10^3/ul (0.83-4.51); Absolute Neutrophil Count 5.8 X10^3/uL (2.0-7.7); Basophil# 0.02 X10^3/uL; Basophil% 0.3 % (0-1); Eosinophil# 0.07 X10^3/uL; Hematocrit 38.1 % (37-47); Hemoglobin 12.4 g/dl (12.0-15.0); Lymphocyte # 0.56 X10^3/ul (4.0); Lymphocyte % 8.1 % (19-41); Mean Corp Hgb Conc 32.5 g/gl (32-36); Mean Corpuscular Hgb 32.5 pg (27.0-32.0); Mean Platelet Vol. 8.5 fl (6.2-12.0); Monocyte# 0.42 X10^3/uL; Monocyte% 6.1 % (0-10); Neutrophil # 5.78 X10^3/uL (2.7-7.7); Neutrophil % 83.8 % (47-70); Platelet Count 176 K/mm3 (150-450); RBC Distribution Width CV 13.9 % (11.6-14.6); RBC Distribution Width SD 49.3 fl (35.1-43.9); Red Blood Count 3.81 M/mm3 (4.2-5.4); White Blood Count 6.9 K/mm3 (4.4-11.0)
[2017-10-22 06:50] LABS: International Normalized Ratio 1.1
[2017-10-22 06:51] LABS: Differential Indicated SCAN CRITERIA MET; POSITIVE COUNT NO; POSITIVE DIFFERENTIAL YES; POSITIVE MORPHOLOGY NO
[2017-10-22 06:56] LABS: Differential Comment SCANNED
[2017-10-22 07:39] LABS: ALB/GLOB Ratio 1.1 RATIO (0.9-2.4); AST(SGOT) 33 U/L (15-37); Alanine Aminotransfer ALT/SGPT 44 U/L (13-56); Albumin, Serum 3.1 g/dL (3.2-5.0); Alkaline Phosphatase 90 U/L (45-117); Anion Gap 10 (5-15); BUN 10 mg/dL (7-18); BUN/Creat Ratio 23.8 RATIO (10-20); Calcium,Total 7.8 mg/dL (8.5-10.1); Chloride 106 mmol/L (98-107); Cholesterol 154 mg/dL (200); Creatinine, Serum 0.42 mg/dL (0.55-1.02); EST Glomerular Filtration Rate 159 mL/min (>60); Est Glom Filt Rate - Afr Amer 192 mL/min (>60); Estimated Creatinine Clearance 47.78 ml/min; Globulin 2.8 g/dL (2.2-4.2); Glucose 117 mg/dL (74-106); High Density Lipoprotein 62 mg/dL; Lipase 1656 U/L (73-393); Magnesium 1.7 mg/dL (1.6-2.6); Phosphorus 1.3 mg/dL (2.5-4.9); Potassium 3.6 mmol/L (3.5-5.1); Protein, Total 5.9 g/dL (6.4-8.2); Sodium Level 138 mmol/L (136-145); Triglycerides 118 mg/dL; Very Low Density Lipoprotein 24 mg/dL (5-40)
[2017-10-22 08:37] VITALS: BP 138/81; PULSE 78; RESP 16; TEMP 36.6; O2SAT 97
[2017-10-22] MEDS: Enoxaparin 40 MG/0.4 ML Syringe SC (08:43)
[2017-10-22] MEDS: Atenolol 100 MG Tablet PO (08:43)
[2017-10-22] MEDS: Famotidine 20 MG Tablet PO ×2 (08:43→21:09)
[2017-10-22 09:38] LABS: Hemoglobin A1c 6.1 % (4.2-6.3)
--- NOTE | 2017-10-22 09:51 | CASEMGMT ---
Social Work Note SW in to see pt briefly as pt states that she is feeling sick and doesn't want to talk much at this time. Pt states that she has to go home at discharge to mow the lawn. It should be noted that pt recently discharged from TCU on 09/30/2017. SW will continue to follow along to assist with discharge planning. Plan: BHUMI Wright [employer], CURRICULUM MANAGER
[2017-10-22 11:14] LABS: Color, Urine Yellow (Yellow); Glucose, Dipstick Normal (Normal); Ketone-Dipstick 50 mg/dl (Negative); Leukocyte Esterase-Dipstick 25 /ul (Negative); Nitrite-Dipstick Negative (Negative); Occult Blood-Urine 250 /ul (Negative); Protein-Dipstick Negative (Negative); Urine Bilirubin Dipstick Negative (Negative); Urine Clarity Clear (Clear); Urine Urobilinogen Normal (Normal)
--- NOTE | 2017-10-22 11:49 | NURSING ---
DURING MORNING ROUNDS/HANDOFF WITH NIGHTSHIFT PT ROLLING EYES AND MAKING FACES WHEN FIRE MANAGEMENT TECHNICIAN NURSE STATES THAT PT IS DOING WELL. PT W/MULTIPLE COMPLAINTS WHEN ASKED WHY SHE'S MAKING FACES. PT STATES I'M SO WEAK FROM NOT BEING ABLE TO EAT FOR MONTHS CAUSE OF MY SWALLOWING DIFFICULTIES. DID THEY TELL YOU I'M BLEEDING. I'M BLEEDING VAGINALLY. WHAT'S THIS ON MY LEG? I ITCH EVERYWHERE FROM MY PSORIASIS. ECT, ECT.. PT INFORMED SPEECH THERAPY IS FOLLOWING FOR SWALLOWING DIFF, PT/OT FOR STRENGTH, DR GALINDO NOTIFIED OF BLEEDING- URINE SAMPLE COLLECTED. NO WOUND NOTED ON LEG, SMALL MOLE? PRESENT. DISCUSSED PT MULTIPLE COMPLAINTS W/DR GALINDO-HE STATES HE CANNOT ADDRESS ANYTHING BUT THE PANCREATIS AT THIS TIME, ENCOURAGED PT TO FOLLOW UP WITH PCP AT D/C.
[2017-10-22 11:53] LABS: Vitamin B12 322 pg/mL (211-911)
[2017-10-22] MEDS: traMADol 50 MG Tablet PO (12:14)
[2017-10-22 12:25] LABS: Bedside Glucose 159 mg/dL (70-110)
--- NOTE | 2017-10-22 13:28 | PCM.PROGNOTE ---
Subjective: Chief complaint: Follow-up after admission for acute on chronic pancreatitis and hypophosphatemia. Patient seen and examined. No acute events overnight. She is still complaining of abdominal pain/discomfort with distention. No more nausea vomiting. She has lots of complaints regarding joint pains and body aches that has been going on for long time. Denied chest pain or shortness of breath. Her vital signs are stable. - Physical Exam General: Alert, Oriented x3, Cooperative, No apparent distress HEENT: Atraumatic, PERRLA, EOMI Oral: Moist Mucosa, No Gingival or Mucosal Lesions/ Ulcerations Neck: Supple, No JVD, Negative Carotid Bruits, Trachea Midline, Thyroid Normal Size and Texture Lungs: Clear to auscultation, No rhonchi, No wheeze, No rales, Diminished Cardiovascular: Regular rate, Regular Rhythm, Normal S1, Normal S2, PMI Normal Abdomen: Bowel Sounds Present, Soft, No Hepato-splenomegaly, Distended, Tender - Minimal superficial tenderness. Extremities: No clubbing, No cyanosis, No edema Skin: No rashes, No breakdown Lymphatic: No Cervical, Supraclavicular, or Inguinal Adenopathy Neurological: Cranial nerves II-XII grossly intact, Motor Exam 5/5 strength throughout Psych/Mental Status: Normal Affect, Appropriate, Alert and oriented to time, place, person, mood and affect Vital Signs Temp Pulse Resp BP Pulse Ox 97.8 F 78 16 138/81 H 97 10/22/17 08:37 10/22/17 08:37 10/22/17 08:37 10/22/17 08:37 10/22/17 08:37 Oxygen Delivery Method Room Air Weight: 150 lb 8.012 oz Body Mass Index (BMI) 24.6 Intake and Output for Last 24 Hours 10/20/17 10/21/17 10/22/17 23:59 23:59 23:59 Intake Total 354 / 354 2779 / 2779 Output Total 300 / 300 200 / 200 Balance 54 / 54 2579 / 2579 Laboratory Tests Past 24 Hrs 10/22/17 10/22/17 10/22/17 06:20 06:20 06:20 WBC 6.9 RBC 3.81 L Hgb 12.4 Hct 38.1 MCV 100.0 H MCH 32.5 H MCHC 32.5 RDW 13.9 RDW Differential 49.3 H Plt Count 176 MPV 8.5 Immature Gran % (Auto) 0.700 Neut % (Auto) 83.8 H Lymph % (Auto) 8.1 L [place] % (Auto) 6.1 Eos % (Auto) 1.0 Baso % (Auto) 0.3 Absolute Neuts (auto) 5.8 Absolute Lymphs (auto) 0.56 L Total Counted Not Reportable Differential Comment SCANNED PT INR Sodium 138 Potassium 3.6 Chloride 106 Carbon Dioxide 22.0 Anion Gap 10 BUN 10 Creatinine 0.42 L Estim Creat Clear Calc 47.78 Est GFR (MDRD) Af Amer 192 Est GFR (MDRD) Non-Af 159 BUN/Creatinine Ratio 23.8 H Glucose 117 H Hemoglobin A1c 6.1 Calcium 7.8 L Phosphorus 1.3 L Magnesium 1.7 Total Bilirubin 0.70 AST 33 ALT 44 Alkaline Phosphatase 90 Total Protein 5.9 L Albumin 3.1 L Globulin 2.8 Albumin/Globulin Ratio 1.1 Triglycerides 118 Cholesterol 154 LDL Cholesterol 68 VLDL Cholesterol 24 HDL Cholesterol 62 Lipase 1656 H Vitamin B12 RBC Folate Hemolysate RBC Folate Hematocrit Urine Color Urine Clarity Urine pH Ur Specific [place] Urine Protein Urine Glucose (UA) Urine Ketones Urine Occult Blood Urine Nitrite Urine Bilirubin Urine Urobilinogen Ur Leukocyte Esterase 10/22/17 10/22/17 10/22/17 06:20 06:20 06:20 WBC RBC Hgb Hct MCV MCH MCHC RDW RDW Differential Plt Count MPV Immature Gran % (Auto) Neut % (Auto) Lymph % (Auto) [place] % (Auto) Eos % (Auto) Baso % (Auto) Absolute Neuts (auto) Absolute Lymphs (auto) Total Counted Differential Comment PT 14.0 INR 1.1 Sodium Potassium Chloride Carbon Dioxide Anion Gap BUN Creatinine Estim Creat Clear Calc Est GFR (MDRD) Af Amer Est GFR (MDRD) Non-Af BUN/Creatinine Ratio Glucose Hemoglobin A1c Calcium Phosphorus Magnesium Total Bilirubin AST ALT Alkaline Phosphatase Total Protein Albumin Globulin Albumin/Globulin Ratio Triglycerides Cholesterol LDL Cholesterol VLDL Cholesterol HDL Cholesterol Lipase Vitamin B12 322 RBC Folate Hemolysate Pending RBC Folate Pending Hematocrit Pending Urine Color Urine Clarity Urine pH Ur Specific [place] Urine Protein Urine Glucose (UA) Urine Ketones Urine Occult Blood Urine Nitrite Urine Bilirubin Urine Urobilinogen Ur Leukocyte Esterase 10/22/17 10:25 WBC RBC Hgb Hct MCV MCH MCHC RDW RDW Differential Plt Count MPV Immature Gran % (Auto) Neut % (Auto) Lymph % (Auto) [place] % (Auto) Eos % (Auto) Baso % (Auto) Absolute Neuts (auto) Absolute Lymphs (auto) Total Counted Differential Comment PT INR Sodium Potassium Chloride Carbon Dioxide Anion Gap BUN Creatinine Estim Creat Clear Calc Est GFR (MDRD) Af Amer Est GFR (MDRD) Non-Af BUN/Creatinine Ratio Glucose Hemoglobin A1c Calcium Phosphorus Magnesium Total Bilirubin AST ALT Alkaline Phosphatase Total Protein Albumin Globulin Albumin/Globulin Ratio Triglycerides Cholesterol LDL Cholesterol VLDL Cholesterol HDL Cholesterol Lipase Vitamin B12 RBC Folate Hemolysate RBC Folate Hematocrit Urine Color Yellow Urine Clarity Clear Urine pH 6.0 Ur Specific [place] 1.010 Urine Protein Negative Urine Glucose (UA) Normal Urine Ketones 50 H Urine Occult Blood 250 H Urine Nitrite Negative Urine Bilirubin Negative Urine Urobilinogen Normal Ur Leukocyte Esterase 25 H POC Glucose 10/22/17 10/22/17 10/21/17 12:00 06:37 21:11 POC Glucose 159 H 132 H 144 H Medical Necessity - Tobacco Use Smoking Status: Light Smoker (<10/day) Tobacco Use: Cigarettes Assessment/Plan This is a 67 years old female patient presented to the emergency room because of abdominal pain, nausea and vomiting that has been going on for long time as well as pain all over her body and she was found to have elevated pancreatic lipase in context of history of recurrent pancreatitis and she was admitted for acute on chronic pancreatitis. 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 Her lipase is chronically elevated, most recently was 507 on September,, admission lipase was 2966, came down to 1656 today. Her liver transaminases and alkaline phosphatase were very minimally elevated and they are back to normal today. She had an ultrasound abdomen that was done on September 17, 2017 for elevated LFT and that revealed no evidence of gallstones or biliary dilatation, normal CBD diameter, revealed fatty liver. Her vital signs are stable. She is on clear liquids. She reported minimal improvement of her symptoms, still having some abdominal pain and distention. Plan: Continue same treatment, advance diet to full liquid diet if tolerated, repeat lipase tomorrow morning. #2 dysphagia: Again, this is chronic complaint. She had videofluoroscopic swallowing study as well as modified barium swallow that on August, and both were normal. She had upper EGD on January, that revealed mild antral gastritis and irregular gastroesophageal junction, no other findings. Speech therapy consulted, she is on clear liquids, plan to advance diet as tolerated. #3 hyperglycemia: Without history of diabetes. Hemoglobin A1c is 6.1. Sugar has been around 130s-150s. She is on sliding scale. #4 hypophosphatemia: Replace phosphorus with IV sodium phosphate, repeat phosphorus tomorrow morning. #5 questionable diagnosis of rheumatoid arthritis: She has been following up with rheumatology as outpatient, informed that she does have rheumatoid arthritis although his workup was negative. Recommended to follow-up with rheumatology. #6 hypertension: Blood pressure stable, continue current medications. #7 hypothyroidism: Continue levothyroxine. #8 anxiety/depression: She is not on any medications. Denied suicidal thoughts or ideations. #9 DVT prophylaxis: Subcu Lovenox. This note was generated with [employer] dictation software. It may contain incorrect words, spelling, and punctuation that were not noted in checking the note before signing. Code Visit Inpatient E&M: 85734 Subs Hosp L2
[2017-10-22 13:53] VITALS: BP 125/79; PULSE 82; RESP 16; TEMP 36.7; O2SAT 95
[2017-10-22 17:35] LABS: Bedside Glucose 151 mg/dL (70-110)
[2017-10-22] MEDS: 0.9% Normal Saline 1,000 ML 100 ML IV (18:56)
[2017-10-22 21:06] VITALS: BP 153/88; PULSE 77; RESP 16; TEMP 36.8; O2SAT 96
[2017-10-22] MEDS: 0.9% NaCl Peripheral Flush Adult/Peds IV ×2 (21:11→23:37)
[2017-10-22 23:35] LABS: Bedside Glucose 141 mg/dL (70-110)
[2017-10-23] MEDS: traMADol 50 MG Tablet PO ×2 (01:03→09:11)
[2017-10-23 03:27] VITALS: BP 158/94; PULSE 78; RESP 18; TEMP 36.6; O2SAT 96
[2017-10-23] MEDS: Morphine 4 MG/ML Syringe IV (03:43)
[2017-10-23] MEDS: 0.9% NaCl Peripheral Flush Adult/Peds IV (03:43)
[2017-10-23] MEDS: Levothyroxine 75 MCG Tablet PO (05:21)
[2017-10-23] MEDS: 0.9% Normal Saline 1,000 ML 100 ML IV (05:21)
[2017-10-23 06:13] LABS: Lipase 709 U/L (73-393)
[2017-10-23 06:26] LABS: Phosphorus 1.9 mg/dL (2.5-4.9)
[2017-10-23 06:35] LABS: Bedside Glucose 138 mg/dL (70-110)
[2017-10-23] MEDS: Enoxaparin 40 MG/0.4 ML Syringe SC (09:18)
[2017-10-23] MEDS: Famotidine 20 MG Tablet PO (09:18)
[2017-10-23] MEDS: Atenolol 100 MG Tablet PO (09:18)
--- NOTE | 2017-10-23 09:21 | NURSING ---
attempted to call Dr. Webber's office as requested by Dr. Newby- office closed 10-22,, Dr. Newby informed.
--- NOTE | 2017-10-23 09:29 | NURSING ---
message left for ST requesting their recommendations as asked by Dr. Newby
[2017-10-23 09:30] VITALS: BP 159/92; PULSE 78; RESP 18; TEMP 36.1; O2SAT 98
--- NOTE | 2017-10-23 11:15 | PCM.PROGNOTE ---
Subjective: Chief complaint: Follow-up after admission for acute on chronic pancreatitis and hypophosphatemia. Patient seen and examined. No acute events overnight. She has multiple complaints. She complains of generalized body aches and pains. She complains of skin rash and she thinks that she does have psoriasis. Still complaining of abdominal pain although she has been reportedly eating and drinking. She complains of difficulty swallowing and this has been going on for some time. She had swallowing studies and upper EGD last year and was unremarkable. Her vital signs are stable - Physical Exam General: Alert, Oriented x3, Cooperative, No apparent distress HEENT: Atraumatic, PERRLA, EOMI Oral: Moist Mucosa, No Gingival or Mucosal Lesions/ Ulcerations Neck: Supple, No JVD, Negative Carotid Bruits, Trachea Midline, Thyroid Normal Size and Texture Lungs: Clear to auscultation, Normal air movement, No rhonchi, No wheeze, No rales Cardiovascular: Regular rate, Regular Rhythm, Normal S1, Normal S2 Abdomen: Bowel Sounds Present, Soft, Non Tender, Non-Distended, No Hepato-splenomegaly Extremities: No clubbing, No cyanosis, No edema Skin: No rashes, No breakdown Lymphatic: No Cervical, Supraclavicular, or Inguinal Adenopathy Neurological: Cranial nerves II-XII grossly intact, Motor Exam 5/5 strength throughout Psych/Mental Status: Flat Affect Vital Signs Temp Pulse Resp BP Pulse Ox 97.8 F 78 18 158/94 H 96 10/23/17 03:27 10/23/17 03:27 10/23/17 03:27 10/23/17 03:27 10/23/17 03:27 Oxygen Delivery Method Room Air Weight: 150 lb 8.012 oz Body Mass Index (BMI) 24.6 Intake and Output for Last 24 Hours 10/21/17 10/22/17 10/23/17 23:59 23:59 23:59 Intake Total 354 / 354 3942 / 3942 1506 / 1506 Output Total 300 / 300 300 / 300 575 / 575 Balance 54 / 54 3642 / 3642 931 / 931 Laboratory Tests Past 24 Hrs 10/22/17 10/22/17 10/23/17 06:20 10:25 05:28 Phosphorus Lipase 709 H Vitamin B12 322 Urine Color Yellow Urine Clarity Clear Urine pH 6.0 Ur Specific [place] 1.010 Urine Protein Negative Urine Glucose (UA) Normal Urine Ketones 50 H Urine Occult Blood 250 H Urine Nitrite Negative Urine Bilirubin Negative Urine Urobilinogen Normal Ur Leukocyte Esterase 25 H 10/23/17 05:28 Phosphorus 1.9 L Lipase Vitamin B12 Urine Color Urine Clarity Urine pH Ur Specific [place] Urine Protein Urine Glucose (UA) Urine Ketones Urine Occult Blood Urine Nitrite Urine Bilirubin Urine Urobilinogen Ur Leukocyte Esterase POC Glucose 10/23/17 10/22/17 10/22/17 06:31 23:29 17:08 POC Glucose 138 H 141 H 151 H 10/22/17 12:00 POC Glucose 159 H Medical Necessity - Tobacco Use Smoking Status: Light Smoker (<10/day) Tobacco Use: Cigarettes Assessment/Plan This is a 67 years old female patient presented to the emergency room because of abdominal pain, nausea and vomiting that has been going on for long time as well as pain all over her body and she was found to have elevated pancreatic lipase in context of history of recurrent pancreatitis and she was admitted for acute on chronic pancreatitis. #1 acute on chronic pancreatitis: She is on IV fluids, IV morphine as needed for pain and IV antiemetics. Her lipase came down to around 700. She has been tolerating clear liquids. Vital signs are stable. 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 She had an ultrasound abdomen that was done on September 17, 2017 for elevated LFT and that revealed no evidence of gallstones or biliary dilatation, normal CBD diameter, revealed fatty liver. Plan: Advance diet as tolerated,, possible DC home today. #2 dysphagia: Again, this is chronic complaint. She had videofluoroscopic swallowing study as well as modified barium swallow that on August, and both were normal. She had upper EGD on January, that revealed mild antral gastritis and irregular gastroesophageal junction, no other findings. Speech therapy consulted, she is on clear liquids, plan to advance diet as tolerated. #3 hyperglycemia: Without history of diabetes. Hemoglobin A1c is 6.1. Sugar has been around 130s-150s. She is on sliding scale. #4 hypophosphatemia: Replace phosphorus with IV sodium phosphate, today's phosphorus is 1.9. Plan to give him another dose of IV sodium phosphate. #5 questionable diagnosis of rheumatoid arthritis: She has been following up with rheumatology as outpatient, informed that she does have rheumatoid arthritis although his workup was negative. Recommended to follow-up with rheumatology. #6 hypertension: Blood pressure stable, continue current medications. #7 hypothyroidism: Continue levothyroxine. #8 anxiety/depression: She is not on any medications. Denied suicidal thoughts or ideations. #9 DVT prophylaxis: Subcu Lovenox. This note was generated with [employer] dictation software. It may contain incorrect words, spelling, and punctuation that were not noted in checking the note before signing.
[2017-10-23 12:10] LABS: Bedside Glucose 150 mg/dL (70-110)
--- NOTE | 2017-10-23 12:38 | CASEMGMT ---
Social Work Note Dr. Ren had mentioned to this worker earlier that pt needed a new psychiatrist.SW in to see pt to confirm discharge plans. Pt confirms that her plan is to return home at discharge. SW asked pt if she would be interested in additional counseling resources or resources about psychiatrist. It should be noted that pt was admitted into hospital last month and per [facility] notes, he provided pt with counseling resources including [facility] and [facility]. SW asked pt if she had followed up with counseling and pt states no, I wish people would stop throwing that stuff in my face. SW offered support to pt and offered to provide pt with additional counseling resources and list of local psychiatrist. Pt denied. SW explained [facility] to pt and asked if she would be interested in referral. Pt denied [facility] referral. Pt denied additional needs or concerns. SW provided pt with business cards and to let this worker know if she has additional issues or concerns. Pt states understanding. Plan: Discharge home Jeanette Wright [employer], [employer]
[2017-10-23] MEDS: Ondansetron 8 MG Tablet PO (13:05)
--- NOTE | 2017-10-23 14:25 | DCINST_ITS ---
- Discharge Diagnoses Current Active Problems: Current Active and Chronic Problems Fibromyalgia (Chronic) Dysphagia (Chronic) You will use the following diet at home:: Regular Your food should be the consistency of: Regular Discharge Activity: Return to Normal Activity Weight Bearing Status: Weight bearing as tolerated Allergies/Adverse Reactions: Allergies nickel [Nickel] Allergy (Verified 10/21/17 16:42) Rash Neuromuscular Blockers, Steroidal [Steroidal Neuromuscular Blockers] Adverse Reaction (Verified 10/21/17 16:42) ACTED WEIRD prochlorperazine edisylate [From Compazine] Adverse Reaction (Verified 10/21/17 16:42) disoriented prochlorperazine maleate [From Compazine] Adverse Reaction (Verified 10/21/17 16 :42) DISORIENTED Medications to take at Discharge Atenolol [Tenormin (beta rené)] 100 mg PO DAILY 05/20/17 Calcium (Elemental) [Os-Herb 500] 500 mg PO DAILY 10/21/17 Pantoprazole Sodium [Protonix] 40 mg PO DAILY 10/21/17 Levothyroxine [Synthroid] 75 mcg PO DAILY #30 tab 10/23/17 traMADol [Ultram] 50 mg PO TID PRN PRN #20 tab 10/23/17 The following prescriptions were given: Levothyroxine [Synthroid] 75 mcg PO DAILY #30 tab traMADol [Ultram] 50 mg PO TID PRN PRN #20 tab PRN Reason: Moderate Pain (4-5/10) Primary Care Physician: Brant Howard Chi, MD [Primary Care Provider] - Please follow up with your Primary Care Physician in: 1 week. Please Follow Up With: Shea Garcia MD When: please call the office. Please Follow Up With: Karin Mcintosh MD When: tomorrow.
[2017-10-23] MEDS: Na Biphos/Potassium Phosphate PACKET 1 PACKET PO (15:02)
[2017-10-23 15:14] VITALS: BP 139/70; PULSE 74; RESP 18; TEMP 37.1; O2SAT 98
--- NOTE | 2017-10-23 15:28 | DS.PCM_ITS ---
Discharge Date and Diagnosis Date of Admission: 10/21/17 Date of Discharge: 10/23/17 - Primary Discharge Diagnosis #1 acute on chronic pancreatitis. #2 dysphagia, no organic disease identified, patient had swallowing studies and upper EGD that was unremarkable. She was seen by speech therapy and she passed swallow evaluation and recommended regular diet. #3 questionable diagnosis of rheumatoid arthritis. - Secondary Discharge Diagnosis Chronic Problems Alcohol abuse (Chronic) Hypertension (Chronic) Hypothyroidism (Chronic) Anxiety (Chronic) Fibromyalgia (Chronic) Dysphagia (Chronic) Rheumatoid arthritis (Chronic) Psoriasis (Chronic) Chronic back pain (Chronic) osteoarthritis Delusional disorder (Chronic) Bipolar disorder (Chronic) Chronic alcohol use (Chronic) Depression with H/o suicidal attempt (Chronic) Hospital Course and Treatment Operations: None Summary of Care Provided: The patient is a 67 year old F admitted because of multiple complaints including abdominal pain, nausea vomiting, joint pains, arm pains, leg pains, dysphagia and she was found to have elevated pancreatic lipase in context of history of recurrent chronic pancreatitis. Lipase on admission was 2966. She has history of chronic alcoholic versus autoimmune pancreatitis with frequent admissions. She was treated with IV fluids, kept on clear liquids for 1 day and her lipase came down 709 on the day of discharge. LFT on admission showed revealed minimally elevated liver transaminases and alkaline phosphatase which came down to normal next day on repeat LFTs. She had recent ultrasound abdomen last month that revealed normal gallbladder without gallstones. Other routine blood work was unremarkable. Vital signs remained stable throughout admission. In spite of clinical and laboratory improvement, patient continued to complain of multiple complaints. She mentioned that she cannot swallow. She was seen by speech therapy and she passed swallowing evaluation and recommended regular diet with precautions. She complains that she cannot walk but she has been ambulating with nursing staff. She was seen by PT OT and she did ambulate very well. She continued to complain of multiple pains and achiness all over her body that has been going on for many years. She thinks that she has some form of autoimmune disease that was not diagnosed. She has been seeing rheumatology as outpatient and was diagnosed with rheumatoid arthritis according to the patient, no documents available. She is not on any treatment for rheumatoid arthritis. She thinks that she have psoriasis of the I did not see any psoriatic plaques on her skin. She was making many excuses to stay in the hospital and I tried to explain to her that she needs to follow up with her automobile body repairer helper regarding her complaints. According to her and apparently, she did not go for her appointments with her automobile body repairer helper. We tried to contact her automobile body repairer helper office to take an appointment for her but they were unavailable for that next 3-4 days. She was started on regular diet and she tolerated it. Patient was discharged home in a stable medical condition, discharged on tramadol as needed for pain, continued on her chronic home medications without any changes, nursing staff took an appointment for the patient with Dr. Mcintosh for pain management tomorrow, also appointment with her PCP taking and information given to the patient. Recommended follow-up with PCP in 1 week. Discharge Activity: Return to Normal Activity Weight Bearing Status: Weight bearing as tolerated Home Medications: Medications to take at Discharge Atenolol [Tenormin (beta rené)] 100 mg PO DAILY 05/20/17 Calcium (Elemental) [Os-Herb 500] 500 mg PO DAILY 10/21/17 Pantoprazole Sodium [Protonix] 40 mg PO DAILY 10/21/17 Levothyroxine [Synthroid] 75 mcg PO DAILY #30 tab 10/23/17 traMADol [Ultram] 50 mg PO TID PRN PRN #20 tab 10/23/17 Following Prescrptions Were Given to Patient: Levothyroxine [Synthroid] 75 mcg PO DAILY #30 tab traMADol [Ultram] 50 mg PO TID PRN PRN #20 tab PRN Reason: Moderate Pain (4-5/10) Primary Care Physician: Brant Howard Chi, MD [Primary Care Provider] - Please follow up with your Primary Care Physician in: 1 week. Please Follow Up With: Brant Howard Chi, MD When: please call the office. Please Follow Up With: Karin Mcintosh MD When: tomorrow. Please Follow Up With: Shea Garcia MD Disposition: Home Minutes spent on discharge:: 32 Patient Condition:: Stable Medical Necessity - Tobacco Use Smoking Status: Light Smoker (<10/day) Tobacco Use: Cigarettes Meaningful Use Info Meaningful Use Diagnoses (Choose all that apply): None applicable Code Visit Inpatient E&M: 36897 Disch Hosp
[2017-10-23 20:07] LABS: Folate, Hemolysate Test 444.1 ng/mL (Not Estab.); Folate, RBC (Hct) Test 36.8 % (34.0-46.6)
[2017-10-24 09:20] LABS: Folates, RBC Test 1207 ng/mL (>498)
--- NOTE | 2017-10-24 15:34 | CASEMGMT ---
RN CM Discharge Follow-up Phone Call: YINAKate: 10 Strata: 3 Call Date: 10/24/17 Discharge Date: 10/23/17 Time of Call: 1534 Duration: 1 min Admitting Diagnosis: Pancreatitis RN CM attempted to complete follow-up phone call after recent hospitalization. No answer and unable to leave message at this time. Patient had follow-up appts scheduled prior to discharge with Dr. Howard on 10/[address] Mcintosh 10/24. RN CM will attempt another call at later time.
== END 2017-10-23 15:07 | disposition home or self-care (01) | DRG 440 ==
LOC: ED 18:46 → MS3 19:40
PROVIDERS: Emergency Provider Emergency Medicine; Family Provider Family Medicine Geriatric Medicine; PCP Family Medicine Geriatric Medicine; Visit Provider Hospitalist
DX: K85.90 Acute pancreatitis without necrosis or infection, unspecified (principal); K86.1 Other chronic pancreatitis; R13.10 Dysphagia, unspecified; M06.9 Rheumatoid arthritis, unspecified; R73.9 Hyperglycemia, unspecified; E83.42 Hypomagnesemia; Y90.9 Presence of alcohol in blood, level not specified; E87.6 Hypokalemia; E83.39 Other disorders of phosphorus metabolism; F17.210 Nicotine dependence, cigarettes, uncomplicated; E03.9 Hypothyroidism, unspecified; F41.9 Anxiety disorder, unspecified; I10 Essential (primary) hypertension; F10.10 Alcohol abuse, uncomplicated; M79.7 Fibromyalgia; F31.9 Bipolar disorder, unspecified; F22 Delusional disorders; L40.9 Psoriasis, unspecified; M47.9 Spondylosis, unspecified; G89.29 Other chronic pain; Z79.899 Other long term (current) drug therapy
CPT/HCPCS: 36415; 80053; 80061; 81002; 82607; 82747; 82962; 83036; 83690; 83735; 84100; 85014; 85025; 85610; 92526; 97162; 97165; 97530; 97802; 99282; 99406; J7030; J7040; J7050; A4216; J2405

== ENCOUNTER → 2017-11-04 13:58 | Outpatient (CLI) | payer MEDICARE, SELFPAY ==
--- NOTE | 2017-11-04 14:01 | BD_ITS ---
STUDY: DUAL ENERGY X-RAY ABSORPTIOMETRY / DXA REASON FOR EXAM: Female, 67 years old. The patient is postmenopausal. Loss of height. TECHNIQUE: Bone Mineral Density (BMD) measurements of lumbar spine and bilateral hips were obtained. COMPARISON: Comparison is made with prior study dated June 14, 1999. FINDINGS: Lumbar Spine (L1-L4): g/cm2 (0.972) / T-score (-1.7) / Z-score (-0.1) Findings are suggestive of osteopenia with a moderate fracture risk. Left Femur Total: g/cm2 (0.722) / T-score (-2.3) / Z-score (-0.8) Left Femoral Neck: g/cm2 (0.661) / T-score (-2.7) / Z-score (-1.0) Right Femur Total: g/cm2 (0.748) / T-score (-2.1) / Z-score (-0.6) Right Femoral Neck: g/cm2 (0.657) / T-score (-2.7) / Z-score (-1.1) The T-Scores on the most recent prior examination were: Lumbar Spine (L1-L4): There has been improvement of bone density since the previous examination. Left Femur Total: . Right Femur Total: which represents a worsening of 4.6%. BD/Dexa Bone Density Study IMPRESSION: The patient is considered osteoporotic as outlined below according to World Job Organization (WHO) criteria with a high fracture risk. There has been worsening of bone density since the previous examination. Reference Information: The T-score is the number of standard deviations above or below the standard which is normal for young adults at their peak bone mineral density. The World Health Organization (WHO) interprets the T-scores as follows: Above -1 Normal bone density Between -1 and -2.5 Osteopenia Equal to / or below -2.5 Osteoporosis As a practical clinical guideline, osteopenia may be graded as follows: Mild -1 through -1.5 Moderate -1.6 through -2.0 Severe -2.1 through -2.4 The Z-score is the number of standard deviations above or below age-matched controls. A Z-score of less than -1.5 would be considered abnormal. References: 1. NIH Osteoporosis and Related Bone Diseases http://www.osteo.org 2. International Society for Clinical Densitometry http://www.iscd.org 3. National Osteoporosis Foundation http://www.nof.org Electronically Signed: Edison Varela MD at 15:19 EDT Tel [phone], Service support ,
--- NOTE | 2017-11-04 14:01 | BI_ITS ---
MAMMOGRAPHY - BILATERAL SCREENING REASON FOR EXAM: Female, 67 years old. Routine annual screening examination. PERTINENT HISTORY: Non-contributory. TECHNIQUE: Digital bilateral breast guy (3D mammographic acquisition) in the CC and MLO projections. 2-D mediolateral oblique (MLO) and craniocaudad (CC) views of both breasts were obtained. CAD: Full Field Digital Mammography with Computer Added Detection was performed. COMPARISON: Comparison is made with prior outside examination dated September 15, 2015. FINDINGS: Breast Composition: The breasts are heterogeneously dense, which may obscure small masses. There are no dominant masses or suspicious calcifications. No other significant abnormalities are identified. There has been no significant change since the prior study. BI/SCREENING MAMM (CAD), BILAT IMPRESSION: Stable bilateral screening mammogram. Yearly follow-up mammogram recommended. (A) ASSESSMENT CATEGORY: BIRADS Category 1: Negative. A letter regarding these results will be sent to the patient by the facility within 30 days. Approximately 10% of breast cancers are not detected by mammography. A normal mammogram should not delay biopsy of a clinically suspicious abnormality. [id number] Electronically Signed: Edison Varela MD at 15:53 EDT Tel [phone], Service support ,
== END ==
PROVIDERS: Family Provider Family Medicine Geriatric Medicine; PCP Family Medicine Geriatric Medicine; Visit Provider Family Medicine Geriatric Medicine
DX: M81.0 Age-related osteoporosis without current pathological fracture (principal); Z78.0 Asymptomatic menopausal state; Z12.31 Encounter for screening mammogram for malignant neoplasm of breast
CPT/HCPCS: 77063; 77067; 77080

== ENCOUNTER → 2017-12-03 14:01 | Outpatient (CLI) | payer SELFPAY ==
--- NOTE | 2017-12-03 15:00 | RAD_ITS ---
STUDY: X-RAY - PELVIS REASON FOR EXAM: Female, 67 years old. Inflammatory polyarthropathy. TECHNIQUE: One view of the pelvis was obtained. COMPARISON: Acute abdominal series, December 04, 2013. FINDINGS: There is a non-specific bowel gas pattern. Normal visualized soft tissue structures. Normal bilateral iliac wings, sacroiliac joints and visualized sacrum. Normal visualized bilateral superior and inferior pubic rami. Normal pubic symphysis. Normal ischial tuberosities. Normal visualized right femoral head. Normal right acetabulum. Normal right hip joint. Normal visualized left femoral head. Normal left acetabulum. Normal left hip joint. RAD/Pelvis 1 or 2 Views IMPRESSION: Normal x-ray examination of the pelvis. Electronically Signed: Cesario Sauer DO at 15:14 EDT Tel [phone], Service support ,
[2017-12-03 15:54] LABS: Absolute Lymphocyte Count 0.69 X10^3/ul (0.83-4.51); Basophil# 0.02 X10^3/uL; Basophil% 0.3 % (0-1); Eosinophil# 0.12 X10^3/uL; Eosinophils% 1.9 % (0-5); Hematocrit 44.4 % (37-47); Hemoglobin 14.4 g/dl (12.0-15.0); Lymphocyte # 0.69 X10^3/ul (4.0); Lymphocyte % 10.9 % (19-41); Mean Corp Hgb Conc 32.4 g/gl (32-36); Mean Corpuscular Hgb 33.8 pg (27.0-32.0); Mean Corpuscular Volume 104.2 fL (81-99); Monocyte# 0.46 X10^3/uL; Monocyte% 7.3 % (0-10); Neutrophil # 4.99 X10^3/uL (2.7-7.7); Neutrophil % 79.1 % (47-70); Platelet Count 208 K/mm3 (150-450); RBC Distribution Width CV 15.2 % (11.6-14.6); RBC Distribution Width SD 58.2 fl (35.1-43.9); Red Blood Count 4.26 M/mm3 (4.2-5.4); White Blood Count 6.3 K/mm3 (4.4-11.0)
[2017-12-03 15:59] LABS: POSITIVE COUNT NO; POSITIVE DIFFERENTIAL NO; POSITIVE MORPHOLOGY NO
[2017-12-03 16:06] LABS: ALB/GLOB Ratio 0.9 RATIO (0.9-2.4); AST(SGOT) 120 U/L (15-37); Alanine Aminotransfer ALT/SGPT 127 U/L (13-56); Albumin, Serum 3.4 g/dL (3.2-5.0); Alkaline Phosphatase 152 U/L (45-117); Anion Gap 8 (5-15); BUN 7 mg/dL (7-18); BUN/Creat Ratio 11.5 RATIO (10-20); CRP 8.74 mg/L (0.0-3.0); Calcium,Total 8.9 mg/dL (8.5-10.1); Chloride 102 mmol/L (98-107); Creatinine, Serum 0.61 mg/dL (0.55-1.02); EST Glomerular Filtration Rate 104 mL/min (>60); Est Glom Filt Rate - Afr Amer 125 mL/min (>60); Globulin 3.9 g/dL (2.2-4.2); Glucose 115 mg/dL (74-106); Potassium 3.6 mmol/L (3.5-5.1); Protein, Total 7.3 g/dL (6.4-8.2); Rheumatoid Factor < 10.0 IU/mL (<15); Sodium Level 141 mmol/L (136-145)
[2017-12-03 16:07] LABS: Erythrocyte Sedimentation Rate 13 mm/hr (0-30)
[2017-12-05 14:51] LABS: ANTINUCLEAR ANTIBODIES DIRECT Positive (Negative)
[2017-12-11 15:56] LABS: HEPATITIS B SURFACE AG Negative (Negative); HLA B27 Negative (.); Hep B Surface Antibodies Non Reactive (.); Hep C Antibodies 0.4 s/co ratio (0.0-0.9)
[2017-12-11 15:57] LABS: CCP IgG Antibodies 14 units (0-19)
== END ==
PROVIDERS: Family Provider Family Medicine Geriatric Medicine; PCP Family Medicine Geriatric Medicine; Visit Provider Internal Medicine Rheumatology
DX: M06.4 Inflammatory polyarthropathy (principal); M79.7 Fibromyalgia; M21.40 Flat foot [pes planus] (acquired), unspecified foot; I10 Essential (primary) hypertension; E03.9 Hypothyroidism, unspecified; F41.9 Anxiety disorder, unspecified; S22.000A Wedge compression fracture of unspecified thoracic vertebra, initial encounter for closed fracture; S32.000A Wedge compression fracture of unspecified lumbar vertebra, initial encounter for closed fracture; E78.01 Familial hypercholesterolemia; F32.89 Other specified depressive episodes; Z87.19 Personal history of other diseases of the digestive system
CPT/HCPCS: 36415; 72170; 80053; 81374; 85025; 85652; 86038; 86140; 86200; 86431; 86706; 86803; 87340

== ENCOUNTER 2018-01-30 19:31 | Inpatient (IN) | payer MEDICARE, SELFPAY ==
[2018-01-30 19:32] VITALS: BP 156/93; PULSE 91; RESP 16; TEMP 36.5; O2SAT 96; BMI 24.2
[2018-01-30] MEDS: 0.9% Normal Saline 1,000 ML 1000 ML IV (20:08)
[2018-01-30] MEDS: Ondansetron 4 MG/2 ML Vial IV ×2 (20:08→22:36)
[2018-01-30] MEDS: Morphine 4 MG/ML Syringe IV (20:08)
[2018-01-30 20:12] LABS: Mucous, Urine 0 SEEN /hpf (<or=2+); Red Blood Cells-Urine 0 SEEN /hpf (0-5); Squamous Epithelial Cells - UA 0 SEEN /hpf (5-10)
[2018-01-30 20:12] LABS: Absolute Lymphocyte Count 0.69 X10^3/ul (0.83-4.51); Absolute Neutrophil Count 8.3 X10^3/uL (2.0-7.7); Basophil# 0.02 X10^3/uL; Basophil% 0.2 % (0-1); Eosinophil# 0.08 X10^3/uL; Eosinophils% 0.8 % (0-5); Hematocrit 49.9 % (37-47); Hemoglobin 17.3 g/dl (12.0-15.0); Lymphocyte # 0.69 X10^3/ul (4.0); Mean Corp Hgb Conc 34.7 g/gl (32-36); Mean Corpuscular Hgb 33.7 pg (27.0-32.0); Mean Corpuscular Volume 97.1 fL (81-99); Mean Platelet Vol. 8.7 fl (6.2-12.0); Monocyte# 0.58 X10^3/uL; Monocyte% 5.9 % (0-10); Neutrophil % 84.9 % (47-70); Platelet Count 230 K/mm3 (150-450); RBC Distribution Width CV 12.7 % (11.6-14.6); Red Blood Count 5.14 M/mm3 (4.2-5.4); White Blood Count 9.8 K/mm3 (4.4-11.0)
[2018-01-30 20:22] LABS: POSITIVE COUNT NO; POSITIVE DIFFERENTIAL NO; POSITIVE MORPHOLOGY NO
--- NOTE | 2018-01-30 20:23 | ED.VISSUMM ---
- ER Visit Summary Date of Service: 01/30/18 Chief Complaint: Abdominal pain and back History of Present Illness: The patient is a 67 F with history of recurrent pancreatitis who presents with multiple complaints. The patient does have a history of alcohol abuse. She has a questionable history of rheumatoid arthritis. She admits to increasing diffuse joint pain. She states when this happens, she tries to drink to help the pain. She states after drinking, she began to have midepigastric pain into her back. She was nauseated without vomiting. She denies any fevers or chills. She cannot control her symptoms at home. The patient has had multiple admissions for pancreatitis. Physical Examination: Vital signs reviewed General: Well-nourished, well-developed Head: Normocephalic, atraumatic Eyes: Pupils equal and reactive, extraocular muscles intact Neck, supple, no lymphadenopathy Heart: Regular rate and rhythm Respiratory: No distress, clear bilaterally Abdomen: Soft, tender in the midepigastric area without rebound or guarding, nondistended, no peritoneal signs Back: Nontender Extremities: Nontender, no edema, no cords Skin: Normal color no rash Neuro: Alert and oriented, no focal or lateralizing deficits Test Results: [] Emergency Department Course and Treatment: The patient has a history of recurrent pancreatitis. She describes the pain as being similar. She is also had some mild dysuria. IV was established. Patient's pain was treated and she was feeling improved. Screening labs do show some contraction of the blood lines. There was no significant leukocytosis. Patient's lipase is almost 4000. Her urine also shows evidence of acute cystitis. I do feel the patient likely has acute pancreatitis likely from recurrent alcohol abuse. She has no evidence of DTs at this time. Her urine was cultured. She is started on Rocephin. At this time, I do for the patient is can require admission. Patient was discussed with the hospitalist. Treatment Plan: [] Disposition: Admission Impression: 1. Acute pancreatitis 2. Acute cystitis This note was generated with [employer] software. It may contain incorrect words, spelling, and punctuation that were not noted in review of the chart prior to signing ED Disposition - Plan for ED Patient: Chief Complaint: General Illness
[2018-01-30 20:27] LABS: Color, Urine Amber (Yellow); Glucose, Dipstick Normal (Normal); Leukocyte Esterase-Dipstick 500 /ul (Negative); Nitrite-Dipstick Negative (Negative); Occult Blood-Urine 25 /ul (Negative); Protein-Dipstick 30 mg/dl (Negative); Urine Clarity Cloudy (Clear); Urine Urobilinogen Normal (Normal)
[2018-01-30 20:30] LABS: Urine Bilirubin Dipstick 1 mg/dL (Negative)
[2018-01-30 20:31] LABS: Ketone-Dipstick 150 mg/dl (Negative)
[2018-01-30 20:46] LABS: ALB/GLOB Ratio 0.8 RATIO (0.9-2.4); AST(SGOT) 85 U/L (15-37); Alanine Aminotransfer ALT/SGPT 83 U/L (13-56); Albumin, Serum 3.5 g/dL (3.2-5.0); Alkaline Phosphatase 172 U/L (45-117); Anion Gap 18 (5-15); BUN 9 mg/dL (7-18); BUN/Creat Ratio 15.9 RATIO (10-20); Calcium,Total 10.9 mg/dL (8.5-10.1); Chloride 92 mmol/L (98-107); Creatinine, Serum 0.57 mg/dL (0.55-1.02); EST Glomerular Filtration Rate 112 mL/min (>60); Est Glom Filt Rate - Afr Amer 136 mL/min (>60); Estimated Creatinine Clearance 47.78 ml/min; Globulin 4.2 g/dL (2.2-4.2); Glucose 97 mg/dL (74-106); Lipase 3896 U/L (73-393); Potassium 3.6 mmol/L (3.5-5.1); Protein, Total 7.7 g/dL (6.4-8.2); Sodium Level 136 mmol/L (136-145)
[2018-01-30 20:50] LABS: Bacteria 3+ /hpf (None Seen); Transitional Epithelial - Ur 0-5 SEEN /hpf (0-5); White Blood Cells 10-25 SEEN /hpf (0-5)
[2018-01-30] MEDS: Ceftriaxone 1 GM/50 ML BAG IV (21:27)
[2018-01-30 21:29] VITALS: BP 166/80; PULSE 74; RESP 16; O2SAT 96
[2018-01-30 22:20] VITALS: BMI 24.1
--- NOTE | 2018-01-30 22:20 | PCM.HP.STD ---
Problem List (1) Acute recurrent pancreatitis Status: Acute (2) Alcohol abuse Status: Chronic (3) Hypertension Status: Chronic (4) Hypothyroidism Status: Chronic (5) Anxiety Status: Chronic (6) Fibromyalgia Status: Chronic (7) Dysphagia Status: Chronic (8) Rheumatoid arthritis Status: Chronic (9) Psoriasis Status: Chronic (10) Chronic back pain Status: Chronic Comment: osteoarthritis (11) Acute pancreatitis Status: Acute (12) Delusional disorder Status: Chronic (13) Bipolar disorder Status: Chronic (14) Chronic alcohol use Status: Chronic (15) Depression with H/o suicidal attempt Status: Chronic History of Present Illness Date of Admission: 01/30/18 Chief Complaint: Abdominal pain for about 2 days The patient is a 67 year old F with history of recurrent alcoholic pancreatitis and multiple admissions, rheumatoid arthritis was brought into ER by EMS for severe abdominal pain. Patient has history of alcohol use and dependence and she still drinks. She did not tell exactly when was the last drink and was hesitant in admitting heavy alcohol use. Complaining of severe epigastric pain rated with radiation to back along with nausea and vomiting. She had vomiting, clear content about 2 times today. Denies fever or chills. She has chronic pain in lower extremities, lumbosacral spine secondary to osteopenia and rheumatoid arthritis [] Past Medical History Past Medical History (Chronic Problems): Chronic Problems Alcohol abuse (Chronic) Hypertension (Chronic) Hypothyroidism (Chronic) Anxiety (Chronic) Fibromyalgia (Chronic) Dysphagia (Chronic) Rheumatoid arthritis (Chronic) Psoriasis (Chronic) Chronic back pain (Chronic) osteoarthritis Delusional disorder (Chronic) Bipolar disorder (Chronic) Chronic alcohol use (Chronic) Depression with H/o suicidal attempt (Chronic) Allergies nickel [Nickel] Allergy (Verified 01/30/18 19:38) Rash prochlorperazine edisylate [From Compazine] Adverse Reaction (Verified 01/30/18 19:38) disoriented prochlorperazine maleate [From Compazine] Adverse Reaction (Verified 01/30/18 19:38) DISORIENTED Home Medications: Ambulatory Orders Medication Instructions Recorded Atenolol [Tenormin (beta rené)] 100 mg PO DAILY 05/20/17 Levothyroxine [Synthroid] 75 mcg PO DAILY #30 tab 10/23/17 traMADol [Ultram] 50 mg PO TID PRN PRN #20 tab 10/23/17 Surgical History: no surgical history Psychiatric History: Anxiety, Bipolar, Depression, - - Alcohol Abuse. [employer] History: No pertinent [employer] history Smoking Status: Current every day smoker - *Family History Maternal History Items: Unknown, No pertinent history Paternal History Items: Unknown Review of Systems Constitutional: Reports: Anorexia, Weakness, Fatigue. Denies: Chills, Fever, Weight Change HEENT: Denies: Head Aches, Sinus Congestion, Sinus Drainage Cardiovascular: Denies: Chest Pain, Palpitations Respiratory: Denies: Cough, Shortness of breath at rest, Sputum production Gastrointestinal: Reports: Abdominal Pain, Nausea, Vomiting. Denies: Hematemesis, Hematochezia, Melena Genitourinary: Reports: Frequency, Urgency. Denies: Dysuria Musculoskeletal: Reports: Back Pain, Joint Pain, Joint Tenderness, Muscle pain Skin: Denies: Rash, Wounds Neurological: Denies: Numbness, Tingling, Focal weakness Psychiatric: Denies: Anxiety, Depression, Homicidal Ideations, Suicidal Ideations Hematologic/ Lymphatic: Denies: Easy Bruising, Easy Bleeding VTE Information - Inpt Only VTE Present on Admission: No VTE Mechan Device Prophylaxis: None VTE Pharm Prophylaxis ordered?: Yes Patient Problems: Active and Suspected Problems Acute recurrent pancreatitis (Acute) - Physical Exam General: Alert, Oriented x3, Cooperative HEENT: Atraumatic, PERRLA, EOMI, Normocephalic Oral: Dry Mucosa Neck: Supple, No JVD, Negative Carotid Bruits Lungs: Clear to auscultation, Normal air movement Cardiovascular: Regular rate, Regular Rhythm, Normal S1, Normal S2, No murmurs Abdomen: Bowel Sounds Present, Soft, Non-Distended, Tender - Tenderness present over upper abdomen predominantly in epigastrium. No tenderness over lumbar spine. Extremities: No edema, Capillary Refill Less than 3 Seconds Skin: No rashes, No breakdown Musculoskeletal: Muscle Wasting, Tenderness Neurological: Cranial nerves II-XII grossly intact Psych/Mental Status: Normal Affect, Appropriate Vital Signs Temp Pulse Resp BP Pulse Ox 97.7 F L 74 16 166/80 H 96 01/30/18 19:32 01/30/18 21:29 01/30/18 21:29 01/30/18 21:29 01/30/18 21:29 Oxygen Delivery Method Room Air Assessment/Plan All Active Problems Acute recurrent pancreatitis (Acute) Acute pancreatitis (Acute) The patient is a 67 year old F with history of recurrent alcoholic pancreatitis and multiple admissions, rheumatoid arthritis was brought into ER by EMS for severe abdominal pain. Patient has history of alcohol use and dependence and she still drinks. She did not tell exactly when was the last drink and was hesitant in admitting heavy alcohol use. Complaining of severe epigastric pain rated with radiation to back along with nausea and vomiting. She had vomiting, clear content about 2 times today. Denies fever or chills. She has chronic pain in lower extremities, lumbosacral spine secondary to osteopenia and rheumatoid arthritis 1. Acute on recurrent alcoholic pancreatitis: Patient thinks that she has autoimmune disease and has autoimmune book near her. She claims that she did not drink heavy amounts of alcohol. Lipase is very high, 3896. Anion gap 18. K3.6. On IV fluid normal saline 250 mL/h after patient received 1 L of normal saline bolus. Monitor intake and output. Monitor electrolytes. Repeat lipase tomorrow a.m. IgG subclass ordered. GGT ordered. Alcohol level is normal. 2. Dysphagia most probably psychogenic: Patient had swallowing studies and upper EGD that was unremarkable during previous admission in October 2017 for pancreatitis. She still thinks she is having difficulty in swallowing throat level. 3. Recent history of UTI: Patient said she was recently had Funk catheterization and complained of increased frequency and urgency, dark urine with redness: UA suggestive of WBC 10-25 cells, RBC 0, LV positive, nitrite negative. Urine culture ordered. 4. 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 Transaminases are elevated. Follow LFT. Vitamin B12, folic acid and thiamine ordered. On thiamine and multivitamin. 5 Rheumatological/musculoskeletal disorder: She has rheumatoid arthritis, psoriasis, chronic back pain secondary to degenerative changes of lumbar spine/osteoarthritis, and osteopenia: PT and OT ordered. Pain control. Patient follows binding cutter. Other chronic disorder include hypertension, hypothyroidism, anxiety and depression, fibromyalgia, bipolar disorder and chronic alcohol use: Multiple comorbidities complicates the present care and expect difficult and delay recovery. Home medication reconciliation done. Patient was counseled for cessation of alcohol. Last blood work in October 22, 2017 shows vitamin B12 322, free T4 and TSH within normal limit in September 2017. Laboratory Results 01/30/18 19:52: Urine Color Lola, Urine Clarity Cloudy, Urine pH 6.0, Ur Specific Hooper 1.020, Urine Protein 30 H, Urine Glucose (UA) Normal, Urine Ketones 150 H, Urine Occult Blood 25 H, Urine Nitrite Negative, Urine Bilirubin 1 H, Urine Urobilinogen Normal, Ur Leukocyte Esterase 500 H, Urine RBC 0 SEEN, Urine WBC 10-25 SEEN, Ur Squamous Epith Cells 0 SEEN, Ur Transition Epith Cell 0-5 SEEN, Urine Bacteria 3+, Urine Mucus 0 SEEN 01/30/18 20:00: WBC 9.8, RBC 5.14, Hgb 17.3 H, Hct 49.9 H, MCV 97.1, MCH 33.7 H, MCHC 34.7, RDW 12.7, RDW Differential 45.0 H, Plt Count 230, MPV 8.7, Immature Gran % (Auto) 1.200 H, Neut % (Auto) 84.9 H, Lymph % (Auto) 7.0 L, [place] % (Auto) 5.9, Eos % (Auto) 0.8, Baso % (Auto) 0.2, Absolute Neuts (auto) 8.3 H, Absolute Lymphs (auto) 0.69 L, Total Counted Not Reportable 01/30/18 20:00: Sodium 136, Potassium 3.6, Chloride 92 L, Carbon Dioxide 26.0, Anion Gap 18 H, BUN 9, Creatinine 0.57, Estim Creat Clear Calc 47.78, Est GFR (MDRD) Af Amer 136, Est GFR (MDRD) Non-Af 112, BUN/Creatinine Ratio 15.9, Glucose 97, Calcium 10.9 H, Total Bilirubin 0.70, AST 85 H, ALT 83 H, Alkaline Phosphatase 172 H, Total Protein 7.7, Albumin 3.5, Globulin 4.2, Albumin/Globulin Ratio 0.8 L, Lipase 3896 H 01/30/18 20:00: Ethyl Alcohol 3.0 Code Visit Inpatient E&M: 99504 Init Hosp L3
[2018-01-30 22:21] VITALS: BP 160/94; PULSE 74; RESP 18; TEMP 36.7; O2SAT 99
[2018-01-30 22:28] VITALS: BMI 24.1
[2018-01-30] MEDS: Morphine 2 MG/ML Syringe IV (22:36)
[2018-01-30] MEDS: 0.9% Normal Saline 1,000 ML 250 ML IV (22:36)
[2018-01-30] MEDS: Cyanocobalamin (B12) 1,000 MCG/ML Vial 1000 MCG IM (22:47)
[2018-01-30] MEDS: Enoxaparin 40 MG/0.4 ML Syringe SC (22:48)
[2018-01-30 22:54] LABS: AST(SGOT) 84 U/L (15-37); Alanine Aminotransfer ALT/SGPT 81 U/L (13-56); Albumin, Serum 3.5 g/dL (3.2-5.0); Alkaline Phosphatase 166 U/L (45-117); Bilirubin, Direct 0.26 mg/dL (0.00-0.30); Globulin 4.3 g/dL (2.2-4.2); Protein, Total 7.8 g/dL (6.4-8.2)
[2018-01-31] VITALS (9 sets, daily range): BP systolic 137–156; BP diastolic 75–92; PULSE 70–76; RESP 12–16; TEMP 36.6–37.3; O2SAT 96–98
[2018-01-31] MEDS: 0.9% Normal Saline 1,000 ML 250 ML IV (03:09)
[2018-01-31] MEDS: Morphine 2 MG/ML Syringe IV ×5 (04:00→20:42)
[2018-01-31] MEDS: Ondansetron 4 MG/2 ML Vial IV ×3 (06:38→20:45)
[2018-01-31 07:21] LABS: Absolute Lymphocyte Count 0.74 X10^3/ul (0.83-4.51); Absolute Neutrophil Count 5.1 X10^3/uL (2.0-7.7); Basophil# 0.01 X10^3/uL; Basophil% 0.2 % (0-1); Eosinophils% 1.5 % (0-5); Hematocrit 43.6 % (37-47); Hemoglobin 14.4 g/dl (12.0-15.0); Lymphocyte # 0.74 X10^3/ul (4.0); Lymphocyte % 11.2 % (19-41); Mean Corpuscular Hgb 33.4 pg (27.0-32.0); Mean Corpuscular Volume 101.2 fL (81-99); Mean Platelet Vol. 8.8 fl (6.2-12.0); Monocyte# 0.57 X10^3/uL; Monocyte% 8.6 % (0-10); Neutrophil # 5.12 X10^3/uL (2.7-7.7); Neutrophil % 77.6 % (47-70); Platelet Count 199 K/mm3 (150-450); RBC Distribution Width CV 12.7 % (11.6-14.6); RBC Distribution Width SD 46.2 fl (35.1-43.9); Red Blood Count 4.31 M/mm3 (4.2-5.4); White Blood Count 6.6 K/mm3 (4.4-11.0)
[2018-01-31 07:29] LABS: POSITIVE COUNT NO; POSITIVE DIFFERENTIAL NO; POSITIVE MORPHOLOGY NO
[2018-01-31 08:10] LABS: Anion Gap 13 (5-15); BUN 9 mg/dL (7-18); BUN/Creat Ratio 20.2 RATIO (10-20); Calcium,Total 8.6 mg/dL (8.5-10.1); Chloride 101 mmol/L (98-107); Creatinine, Serum 0.44 mg/dL (0.55-1.02); EST Glomerular Filtration Rate 148 mL/min (>60); Est Glom Filt Rate - Afr Amer 180 mL/min (>60); Estimated Creatinine Clearance 47.78 ml/min; GGTP 347 U/L (5-55); Glucose 72 mg/dL (74-106); Lipase 1388 U/L (73-393); Potassium 3.6 mmol/L (3.5-5.1); Sodium Level 141 mmol/L (136-145); T4 Free Direct 0.98 ng/dL (0.76-1.46)
--- NOTE | 2018-01-31 09:39 | CASEMGMT ---
Social Work Assessment Referral Date: 01/31 Date of Assessment: 01/31 Reason for Consult: Hx of ETOH Abuse Informant: Self-Referral Personal Status: Pt reports to live alone in a two-story home with primary living in the upstairs. Pt denies issues with the flight of stairs to the second level and states that she has a handrail. Denies falls. Reports to have a walker and cane and primarily uses a cane to ambulate. Pt reports that she is able to manage her care well. Claims to have two brothers that live locally, but that she does not see very often. Pt reports to make approximately $323/month. Claims she has been working with [facility] to apply for Medicaid. Offer to assist with application or provide with phone number to call to do application via phone and pt declines. States that she has applied and just need to provide paperwork to [facility]. Claims she recently got a cell phone through [facility]. She also is established with [employer] and [employer]. Denies further needs at this time and anticipates discharge home. Substance Use Hx: Alcohol: Yes Tobacco: Yes Pt reports smoking 1 ppd. States that she used to have a drinking problem, but denies now. Pt is presently receiving CIWA scoring however. Does report drinking 1 glass of vodka mixed with water yesterday to help with this pain in my stomach. Denies drinking daily. Mental Health Hx: Pt denies mental health diagnoses and begins to become agitated with discussion regarding physicians putting anything in her chart. States that she is not depressed or anxious. She has gone to a counselor at the [facility] and reports a poor experience with the counselor after her first visit. Educate to other counseling services and [facility] that may be closer to where she lives. Pt declines to have SW setup an appointment, but is receptive to receiving information. Pt denies symptoms of depression or anxiety. Denies SI or HI. Resources: JF: Medicaid (pending completion), Cell[employer]Phone Other: [email or web address] Intervention: Initial assessment complete. Education and information provided on counseling resources. Will await PT/OT evaluations to determine discharge needs. Plan: Anticipate home with no needs. Donna Pardo, ORAL HYGIENIST, LSWj
[2018-01-31] MEDS: Enoxaparin 40 MG/0.4 ML Syringe SC (10:30)
--- NOTE | 2018-01-31 13:24 | PCM.PROGNOTE ---
<Fernie Lyles - Last Filed: 01/31/18 13:24> Patient Problems: Active and Suspected Problems Acute recurrent pancreatitis (Acute) Subjective: Pt complains that she has been wrongly labelled an alcoholic and that the pancreatitis is autoimmune, however she does admit yesterday she drank vodka to try to help her stomach pain. She continues to have pain across the whole upper abdominal region, with pain radiating into her back. She is NPO. She has nausea but no further vomiting. No fever or chills. No BM activity. Has not eaten much in the last few days. Thinks her pancreatitis is from nickel in her drinking water. She states she has difficulty swallowing and wants a speech eval. - Physical Exam General: Alert, Oriented x3, Cooperative HEENT: Atraumatic, PERRLA, EOMI, Normocephalic Neck: Supple, No JVD, Negative Carotid Bruits Lungs: Clear to auscultation, Normal air movement Cardiovascular: Regular rate, No murmurs Abdomen: Bowel Sounds Present, Soft, Tender - diffuse, no guarding Extremities: No edema, Capillary Refill Less than 3 Seconds Skin: No rashes, No breakdown Musculoskeletal: No Tenderness to Palpation of Joints or Extremities Neurological: Cranial nerves II-XII grossly intact Psych/Mental Status: Normal Affect, Appropriate, Alert and oriented to time, place, person, mood and affect Vital Signs Temp Pulse Resp BP Pulse Ox 98.1 F 75 16 137/76 H 98 01/31/18 11:15 01/31/18 11:15 01/31/18 11:15 01/31/18 11:15 01/31/18 11:15 Oxygen Delivery Method Room Air Weight: 145 lb 1.027 oz Body Mass Index (BMI) 24.1 Intake and Output for Last 24 Hours 01/29/18 01/30/18 01/31/18 23:59 23:59 23:59 Intake Total 2644 / 2644 Output Total 300 / 300 Balance 2344 / 2344 Laboratory Tests Past 24 Hrs 01/31/18 01/31/18 01/31/18 06:35 06:35 06:35 WBC 6.6 RBC 4.31 Hgb 14.4 Hct 43.6 MCV 101.2 H MCH 33.4 H MCHC 33.0 RDW 12.7 RDW Differential 46.2 H Plt Count 199 MPV 8.8 Immature Gran % (Auto) 0.900 Neut % (Auto) 77.6 H Lymph % (Auto) 11.2 L [place] % (Auto) 8.6 Eos % (Auto) 1.5 Baso % (Auto) 0.2 Absolute Neuts (auto) 5.1 Absolute Lymphs (auto) 0.74 L Total Counted Not Reportable Sodium 141 Potassium 3.6 Chloride 101 Carbon Dioxide 27.0 Anion Gap 13 BUN 9 Creatinine 0.44 L Estim Creat Clear Calc 47.78 Est GFR (MDRD) Af Amer 180 Est GFR (MDRD) Non-Af 148 BUN/Creatinine Ratio 20.2 H Glucose 72 L Calcium 8.6 GGT 347 H Lipase 1388 H Whole Bld Vitamin B1 Vitamin B12 Folate 18.90 TSH 2.80 Free T4 0.98 IgG Total Pending IgG1 Pending IgG2 Pending IgG3 Pending IgG4 Pending 01/31/18 01/31/18 06:35 06:35 WBC RBC Hgb Hct MCV MCH MCHC RDW RDW Differential Plt Count MPV Immature Gran % (Auto) Neut % (Auto) Lymph % (Auto) [place] % (Auto) Eos % (Auto) Baso % (Auto) Absolute Neuts (auto) Absolute Lymphs (auto) Total Counted Sodium Potassium Chloride Carbon Dioxide Anion Gap BUN Creatinine Estim Creat Clear Calc Est GFR (MDRD) Af Amer Est GFR (MDRD) Non-Af BUN/Creatinine Ratio Glucose Calcium GGT Lipase Whole Bld Vitamin B1 Pending Vitamin B12 Pending Folate TSH Free T4 IgG Total IgG1 IgG2 IgG3 IgG4 Medical Necessity - Tobacco Use Smoking Status: Current every day smoker Assessment/Plan All Active Problems Acute recurrent pancreatitis (Acute) Acute pancreatitis (Acute) 1. Acute recurrent alcoholic pancreatitis - continue NPO, IV fluids, supportive care. Lipase down. GGT, ALT, AST up, chronic. Tbili normal. TSH, folate, t4 normal. IgG panel pending. Protonix drip. MVI, thiamine continued. b12 pending. She has previously been treated for DT's during acute pancreatitis episodes. Will monitor for withdrawal. 2. Asymptomatic bacteriuria noted. No fever or leukocytosis. 3. RA - only on tramadol. no longer on methotrexate or prednisone. States Dr. Tam kicked her out of practice. 4. HTN - atenolol, mildly elevated possibly 2/2 pain 5. Hypothyroidism - continue synthroid. 6. Nicotine abuse - does not want patch currently 7. Depression/Bipolar - not on home meds still, referred at last discharge for behavioral health services. 8. Dysphagia - speech eval when diet advanced. DVT ppx: lovenox DC planning: required SNF in past, will monitor for improvement and development of withdrawal symptoms This patient was seen by Fernie Lyles PA-C under the supervision of Doctor Keyonna. <Alejandra Newby E - Last Filed: 01/31/18 14:19> - Physical Exam Vital Signs Temp Pulse Resp BP Pulse Ox 98.1 F 75 16 137/76 H 98 01/31/18 11:15 01/31/18 11:15 01/31/18 11:15 01/31/18 11:15 01/31/18 11:15 Oxygen Delivery Method Room Air Weight: 145 lb 1.027 oz Body Mass Index (BMI) 24.1 Intake and Output for Last 24 Hours 01/29/18 01/30/18 01/31/18 23:59 23:59 23:59 Intake Total 2644 / 2644 Output Total 300 / 300 Balance 2344 / 2344 Laboratory Tests Past 24 Hrs 01/31/18 01/31/18 01/31/18 06:35 06:35 06:35 WBC 6.6 RBC 4.31 Hgb 14.4 Hct 43.6 MCV 101.2 H MCH 33.4 H MCHC 33.0 RDW 12.7 RDW Differential 46.2 H Plt Count 199 MPV 8.8 Immature Gran % (Auto) 0.900 Neut % (Auto) 77.6 H Lymph % (Auto) 11.2 L [place] % (Auto) 8.6 Eos % (Auto) 1.5 Baso % (Auto) 0.2 Absolute Neuts (auto) 5.1 Absolute Lymphs (auto) 0.74 L Total Counted Not Reportable Sodium 141 Potassium 3.6 Chloride 101 Carbon Dioxide 27.0 Anion Gap 13 BUN 9 Creatinine 0.44 L Estim Creat Clear Calc 47.78 Est GFR (MDRD) Af Amer 180 Est GFR (MDRD) Non-Af 148 BUN/Creatinine Ratio 20.2 H Glucose 72 L Calcium 8.6 GGT 347 H Lipase 1388 H Whole Bld Vitamin B1 Vitamin B12 Folate 18.90 TSH 2.80 Free T4 0.98 IgG Total Pending IgG1 Pending IgG2 Pending IgG3 Pending IgG4 Pending 01/31/18 01/31/18 06:35 06:35 WBC RBC Hgb Hct MCV MCH MCHC RDW RDW Differential Plt Count MPV Immature Gran % (Auto) Neut % (Auto) Lymph % (Auto) [place] % (Auto) Eos % (Auto) Baso % (Auto) Absolute Neuts (auto) Absolute Lymphs (auto) Total Counted Sodium Potassium Chloride Carbon Dioxide Anion Gap BUN Creatinine Estim Creat Clear Calc Est GFR (MDRD) Af Amer Est GFR (MDRD) Non-Af BUN/Creatinine Ratio Glucose Calcium GGT Lipase Whole Bld Vitamin B1 Pending Vitamin B12 Pending Folate TSH Free T4 IgG Total IgG1 IgG2 IgG3 IgG4 Assessment/Plan Hospitalist note: I am seeing this patient in conjunction with Fernie Lyles. I independently seen and examined the patient. Progress note above and laboratory data and and I agree with the above treatment plan. Patient was admitted because of abdominal and back pain. She was found to have elevated pancreatic lipase consistent with acute on chronic pancreatitis. She does have a history of chronic pancreatitis. This patient is known to me from the previous admissions. She complains of difficulty swallowing and this complaint has been going on for at least 5 years. She had extensive workup for this dysphagia including barium swallow, video fluoroscopic swallowing evaluation and upper EGD that were unremarkable. She still complaining of abdominal pain. Her vital signs are stable. - Physical Exam General: Alert, Oriented x3, Cooperative, No apparent distress. HEENT: Atraumatic, PERRLA, EOMI. Neck: Supple, No JVD, Negative Carotid Bruits, Trachea Midline, Thyroid Normal. Lungs: Clear to auscultation, Normal air movement, No rhonchi, No wheeze, No rales. Cardiovascular: Regular rate, Regular Rhythm, Normal S1, Normal S2, PMI Normal. Abdomen: Bowel Sounds Present, Soft, Tender, no guarding or rigidity, Non-Distended, No Hepato-splenomegaly. Extremities: No clubbing, No cyanosis, No edema Skin: No rashes, No breakdown Neurological: Neuro grossly intact Vital Signs are stable. Assessment and plan: #1 acute on chronic pancreatitis: Patient thinks that she has also been pancreatitis but admitted that she drank vodka yesterday. Her admission lipase was 3896. Her LFT revealed chronically elevated liver transaminases as well as alkaline phosphatase and are at her baseline. Today, lipase came down to 1388. Other routine blood work was unremarkable. She is noted fluids and IV pain medications. Plan to keep same treatment, keep on n.p.o., repeat lipase tomorrow morning. #2 asymptomatic bacteriuria: Urine culture revealed E. coli. She is a symptomatic. Her previous urine cultures showed the same. She is afebrile, no leukocytosis. At this time, no indication for treatment. #3 chronic dysphagia: This could be psychogenic. Patient had extensive workup for this dysphagia with swallowing, videofluoroscopic swallowing evaluation as well as upper EGD and all of them came back unremarkable. She mentioned that she has not been eating for 5 years which is obviously untrue. Plan to have speech therapy see her. #4 other chronic medical problems: Stable, continue current medications as above. This note was generated with [employer] dictation software. It may contain incorrect words, spelling, and punctuation that were not noted in checking the note before signing. Code Visit Inpatient E&M: 14903 Subs Hosp L2
[2018-01-31] MEDS: 0.9% NaCl Peripheral Flush Adult/Peds IV ×2 (20:46→23:11)
[2018-01-31] MEDS: proMETHazine 25 MG/ML Syringe 12.5 MG IV (23:00)
[2018-02-01] MEDS: 0.9% NaCl Peripheral Flush Adult/Peds IV ×3 (02:16→07:23)
[2018-02-01] MEDS: Morphine 2 MG/ML Syringe IV ×3 (02:16→16:59)
[2018-02-01] MEDS: Ondansetron 4 MG/2 ML Vial IV ×2 (04:54→18:52)
[2018-02-01 06:39] LABS: Lipase 475 U/L (73-393)
[2018-02-01 07:20] VITALS: BP 143/67; PULSE 79; RESP 16; TEMP 37.2; O2SAT 99
[2018-02-01 08:10] VITALS: O2SAT 98
[2018-02-01] MEDS: Enoxaparin 40 MG/0.4 ML Syringe SC (09:20)
[2018-02-01] MEDS: Levothyroxine 75 MCG Tablet PO (09:27)
[2018-02-01] MEDS: Atenolol 100 MG Tablet PO (09:27)
[2018-02-01] MEDS: 0.9% NaCl IVPB Med Flush (250 mL) 15 ML IV (09:30)
[2018-02-01] MEDS: Pantoprazole Sodium 40 MG Tablet PO ×2 (10:19→20:59)
[2018-02-01] MEDS: oxyCODONE 5 MG Tablet PO ×3 (10:19→20:50)
[2018-02-01] MEDS: 0.9% Normal Saline 1,000 ML 100 ML IV ×2 (10:21→20:53)
[2018-02-01 11:43] VITALS: BP 157/94; PULSE 66; RESP 16; TEMP 36.5; O2SAT 97
--- NOTE | 2018-02-01 12:29 | PCM.PROGNOTE ---
<Fernie Lyles - Last Filed: 02/01/18 12:29> Patient Problems: Active and Suspected Problems Acute recurrent pancreatitis (Acute) Subjective: Pt states abdominal pain unchanged. Mild nausea, no vomiting. Tolerating clears. No BM. No fever or chills. No abd distention. - Physical Exam General: Alert, Oriented x3, Cooperative HEENT: Atraumatic, PERRLA, EOMI, Normocephalic Neck: Supple, No JVD, Negative Carotid Bruits Lungs: Clear to auscultation, Normal air movement Cardiovascular: Regular rate, No murmurs Abdomen: Bowel Sounds Present, Soft, Non Tender, Tender - diffusely Extremities: No edema, Capillary Refill Less than 3 Seconds Skin: No rashes, No breakdown Musculoskeletal: No Tenderness to Palpation of Joints or Extremities Neurological: Cranial nerves II-XII grossly intact Psych/Mental Status: Normal Affect, Appropriate, Alert and oriented to time, place, person, mood and affect Vital Signs Temp Pulse Resp BP Pulse Ox 97.7 F L 66 16 157/94 H 97 02/01/18 11:43 02/01/18 11:43 02/01/18 11:43 02/01/18 11:43 02/01/18 11:43 Oxygen Delivery Method Room Air Weight: 145 lb 1.027 oz Body Mass Index (BMI) 24.1 Intake and Output for Last 24 Hours 01/30/18 01/31/18 02/01/18 23:59 23:59 23:59 Intake Total 3307 / 3307 1478 / 1478 Output Total 300 / 300 200 / 200 Balance 3007 / 3007 1278 / 1278 Laboratory Tests Past 24 Hrs 02/01/18 05:03 Lipase 475 H Medical Necessity - Tobacco Use Smoking Status: Current every day smoker Assessment/Plan All Active Problems Acute recurrent pancreatitis (Acute) Acute pancreatitis (Acute) 1. Acute recurrent alcoholic pancreatitis - improved. Clears started. Protonix to PO. Plan to further advance in AM. 2. Asymptomatic bacteriuria noted. No fever or leukocytosis. 3. RA - only on tramadol. no longer on methotrexate or prednisone. States Dr. Tam kicked her out of practice. 4. HTN - atenolol, mildly elevated possibly 2/2 pain 5. Hypothyroidism - continue synthroid. 6. Nicotine abuse - does not want patch currently 7. Depression/Bipolar - not on home meds still, referred at last discharge for behavioral health services. 8. Dysphagia - unchanged from prior admissions. Speech thearpy. DVT ppx: lovenox DC planning: required SNF in past, will monitor for improvement and development of withdrawal symptoms This patient was seen by Fernie Lyles PA-C under the supervision of Doctor Keyonna. <Alejandra Newby E - Last Filed: 02/01/18 14:42> - Physical Exam Vital Signs Temp Pulse Resp BP Pulse Ox 98.3 F 66 16 152/87 H 98 02/01/18 14:13 02/01/18 14:13 02/01/18 14:13 02/01/18 14:13 02/01/18 14:13 Oxygen Delivery Method Room Air Weight: 145 lb 1.027 oz Body Mass Index (BMI) 24.1 Intake and Output for Last 24 Hours 01/30/18 01/31/18 02/01/18 23:59 23:59 23:59 Intake Total 3307 / 3307 1478 / 1478 Output Total 300 / 300 200 / 200 Balance 3007 / 3007 1278 / 1278 Laboratory Tests Past 24 Hrs 02/01/18 05:03 Lipase 475 H Assessment/Plan Hospitalist note: I am seeing this patient in conjunction with Fernie Lyles. I independently seen and examined the patient. Progress note above and laboratory data and and I agree with the above treatment plan. Patient states that abdominal pain is unchanged although she is comfortable, not tachycardic. Her lipase is trending down. She has mild nausea, no vomiting,. Denies fever chills. Her vital signs are stable. - Physical Exam General: Alert, Oriented x3, Cooperative, No apparent distress. HEENT: Atraumatic, PERRLA, EOMI. Neck: Supple, No JVD, Negative Carotid Bruits, Trachea Midline, Thyroid Normal. Lungs: Clear to auscultation, Normal air movement, No rhonchi, No wheeze, No rales. Cardiovascular: Regular rate, Regular Rhythm, Normal S1, Normal S2, PMI Normal. Abdomen: Bowel Sounds Present, Soft, Tender, no guarding or rigidity, Non-Distended, No Hepato-splenomegaly. Extremities: No clubbing, No cyanosis, No edema Skin: No rashes, No breakdown Neurological: Neuro grossly intact Vital Signs are stable. Assessment and plan: #1 acute on chronic pancreatitis: This is attributed to acute on chronic alcoholic pancreatitis. Lipase is trending down, today it is down to 475. Patient still symptomatic, started on clear liquids. Her LFT revealed chronically elevated liver transaminases as well as alkaline phosphatase and are at her baseline. Plan to continue clear liquids, advance diet as tolerated, possible DC home tomorrow morning. #2 asymptomatic bacteriuria: Urine culture revealed E. coli. She is a symptomatic. Her previous urine cultures showed the same. She is afebrile, no leukocytosis. At this time, no indication for treatment. #3 chronic dysphagia: This could be psychogenic. Patient had extensive workup for this dysphagia with swallowing, videofluoroscopic swallowing evaluation as well as upper EGD and all of them came back unremarkable. She mentioned that she has not been eating for 5 years which is obviously untrue. Speech therapy eval and treatment. #4 other chronic medical problems: Stable, continue current medications as above. This note was generated with [employer] dictation software. It may contain incorrect words, spelling, and punctuation that were not noted in checking the note before signing. Code Visit Inpatient E&M: 51363 Subs Hosp L2
[2018-02-01 14:13] VITALS: BP 152/87; PULSE 66; RESP 16; TEMP 36.8; O2SAT 98
[2018-02-01] MEDS: Acetaminophen 325 MG Tablet 650 MG PO (18:55)
[2018-02-01] MEDS: proMETHazine 25 MG/ML Syringe 12.5 MG IV (20:51)
[2018-02-01 21:01] VITALS: BP 189/86; PULSE 66; RESP 16; TEMP 36.8; O2SAT 99
[2018-02-01 21:06] VITALS: BP 189/86; PULSE 66; RESP 16; TEMP 36.8; O2SAT 99
[2018-02-02] VITALS (8 sets, daily range): BP systolic 151–170; BP diastolic 80–89; PULSE 63–74; RESP 18; TEMP 36.7–36.9; O2SAT 96–99
[2018-02-02] MEDS: 0.9% NaCl Peripheral Flush Adult/Peds IV ×2 (00:51→11:49)
[2018-02-02] MEDS: Morphine 2 MG/ML Syringe IV (00:51)
[2018-02-02] MEDS: oxyCODONE 5 MG Tablet PO ×5 (03:33→20:21)
[2018-02-02] MEDS: Levothyroxine 75 MCG Tablet PO (05:39)
[2018-02-02] MEDS: Ondansetron 4 MG/2 ML Vial IV ×3 (05:46→23:06)
[2018-02-02] MEDS: 0.9% Normal Saline 1,000 ML 100 ML IV ×2 (05:46→23:41)
[2018-02-02] MEDS: Enoxaparin 40 MG/0.4 ML Syringe SC (08:57)
[2018-02-02] MEDS: Thiamine Hydrochloride 100 MG Tablet PO (08:57)
[2018-02-02] MEDS: Folic Acid 1 MG Tablet PO (08:57)
[2018-02-02] MEDS: Pantoprazole Sodium 40 MG Tablet PO ×2 (08:58→20:22)
[2018-02-02] MEDS: Atenolol 100 MG Tablet PO (08:58)
[2018-02-02 09:30] LABS: Vitamin B12 > 2000 pg/mL (211-911)
[2018-02-02] MEDS: Morphine 4 MG/ML Syringe IV ×2 (09:52→22:35)
--- NOTE | 2018-02-02 10:01 | PCM.PN.HOSP ---
Patient Problems: Active and Suspected Problems Acute recurrent pancreatitis (Acute) Subjective: Patient seen and examined. She has been admitted and managed for acute pancreatitis thought to be alcohol induced. However patient tells me that she does not drink any alcohol and thinks that this may be due to autoimmune diseases. Patient still complains of abdominal pain and generalized pain this morning. She also complains of problems with her swallowing and states that the she thinks food gets stuck in her throat. This has been going on for a long time and she has had a modified barium swallow done previously which showed normal swallowing. She denies any nausea vomiting was able to tolerate fluids yesterday though she states she felt like it got stuck in her throat. She denies having any history of gallbladder issues but states that she recently had a gallbladder scan done when she last was admitted for acute pancreatitis in September. 12 point Review of systems is otherwise negative today. Labs and vitals reviewed. Vitals/I&O's: Vital Signs Temp Pulse Resp BP Pulse Ox 98.3 F 66 18 169/89 H 97 02/02/18 04:00 02/02/18 04:00 02/02/18 04:00 02/02/18 04:00 02/02/18 07:21 Oxygen Delivery Method Room Air Weight: 145 lb 1.027 oz Body Mass Index (BMI) 24.1 Intake and Output for Last 24 Hours 01/31/18 02/01/18 02/02/18 23:59 23:59 23:59 Intake Total 3307 / 3307 2309 / 2309 1854 / 1854 Output Total 300 / 300 200 / 200 300 / 300 Balance 3007 / 3007 2109 / 2109 1554 / 1554 General: Alert, Oriented x3, Cooperative, - - anxious HEENT: Atraumatic, PERRLA, EOMI, Normocephalic Oral: Moist Mucosa Neck: Supple, No JVD, Negative Carotid Bruits Lungs: Clear to auscultation, Normal air movement, No rhonchi, No wheeze Cardiovascular: Regular rate, Regular Rhythm, Normal S1, Normal S2, No murmurs Abdomen: Bowel Sounds Present, Soft, - - marked RUQ tenderness, with positive Anaya's sign. Mild generalised tenderness, with no guarding or rebound tenderness Extremities: No clubbing, No cyanosis, No edema, Capillary Refill Less than 3 Seconds Skin: No rashes, No breakdown Musculoskeletal: No Tenderness to Palpation of Joints or Extremities Lymphatic: No Cervical, Supraclavicular, or Inguinal Adenopathy Neurological: Cranial nerves II-XII grossly intact, Motor Exam 5/5 strength throughout Psych/Mental Status: Normal Affect, Appropriate, Alert and oriented to time, place, person, mood and affect Laboratory Results 01/31/18 06:35: Vitamin B12 > 2000 H Current Medications Acetaminophen (Tylenol) 650 mg PO Q6H PRN PRN PRN Reason: Mild Pain (scale 0-3)/T>100.7 Last Admin: 02/01/18 18:55 Dose: 650 mg Al Hydroxide/Mg Hydroxide (Mylanta Ii) 30 ml PO Q6H PRN PRN PRN Reason: Gastric burning Atenolol (Tenormin (Beta Terry)) 100 mg PO DAILY [facility] Last Admin: 02/02/18 08:58 Dose: 100 mg Bisacodyl (Dulcolax) 10 mg RECTAL DAILY PRN PRN PRN Reason: Constipation Enoxaparin Sodium (Lovenox) 40 mg SC DAILY@1000 [facility] Last Admin: 02/02/18 08:57 Dose: 40 mg Folic Acid (Folic Acid) 1 mg PO DAILY@0800 [facility] Last Admin: 02/02/18 08:57 Dose: 1 mg Sodium Chloride () 250 mls @ 15 mls/hr IV .[id number] PRN PRN Reason: SALINE FLUSH Last Admin: 02/01/18 09:30 Dose: 15 mls/hr Multivitamins 10 ml/ Sodium (Chloride) 1,010 mls @ 100 mls/hr IV DAILY [facility] Last Admin: 02/02/18 09:01 Dose: 100 mls/hr Sodium Chloride () 1,000 mls @ 100 mls/hr IV .Q10H [facility] Last Admin: 02/02/18 05:46 Dose: 100 mls/hr Levothyroxine Sodium (Synthroid) 75 mcg PO DAILY@0600 [facility] Last Admin: 02/02/18 05:39 Dose: 75 mcg Magnesium Hydroxide (Milk Of Magnesia) 30 ml PO DAILY PRN PRN PRN Reason: Constipation Morphine Sulfate () 1 - 2 mg IV Q4H PRN PRN PRN Reason: SEVERE PAIN (6-10/10) Last Admin: 02/02/18 09:52 Dose: 2 mg Ondansetron HCl (Zofran) 4 mg IV Q6H PRN PRN PRN Reason: NAUSEA Last Admin: 02/02/18 05:46 Dose: 4 mg Oxycodone HCl (Oxyir) 5 mg PO Q4H PRN PRN PRN Reason: Moderate Pain (pain scale 4-5) Last Admin: 02/02/18 07:31 Dose: 5 mg Pantoprazole Sodium (Protonix) 40 mg PO BID JAYLON Last Admin: 02/02/18 08:58 Dose: 40 mg Promethazine HCl (Phenergan) 12.5 mg IV Q6H PRN PRN PRN Reason: NAUSEA/VOMITING Last Admin: 02/01/18 20:51 Dose: 12.5 mg Sodium Chloride () 5 - 30 ml IV UD PRN PRN Reason: SALINE FLUSH Last Admin: 02/02/18 00:51 Dose: 10 ml Thiamine HCl (Vitamin B1) 100 mg PO DAILYCM JAYLON Last Admin: 02/02/18 08:57 Dose: 100 mg Zolpidem Tartrate (Ambien (Generic)) 5 mg PO QHS PRN PRN PRN Reason: INSOMNIA Medical Necessity - Tobacco Use Smoking Status: Current every day smoker Assessment/Plan All Active Problems Acute recurrent pancreatitis (Acute) Acute pancreatitis (Acute) 1. Acute pancreatitis, aetiology is unclear at this time Pancreatitis was thought to be due to alcohol and patient has a history of recurrent admissions for this. Patient however denies that she is taking any alcohol though I really doubt this. She claims that it may be due to autoimmune disease that she has rheumatoid arthritis. It is documented that she has a history of alcohol dependence but was unable to tell exactly when her last drink was on admission and was systems and admitting heavy alcohol use. lipase was 3896 on admission. ALcohol level was WNL on admission calcium was slightly elevated on admission at 10.9; came down to 8.6 triglycerides checked in October when she last had acute pancreatitis; was not elevated Still has right upper quadrant pain and Anaya sign was positive. Had a right upper quadrant ultrasound in September 2017 which was negative for any cholelithiasis or cholecystitis. Tolerated clear liquids states she has problems with swallowing. Abdominal pain does not get worse with fluid intake in light of positive Anaya's sign, will order Gallbladder USG to assess. IgG ordered to assess for autoimmune pancreatitis. Is pending. 2. Oropharyngeal dysphagia She has a feeling of something getting stuck in her throat when she swallows. She had modified barium swallow and EGD in October 2017 and this was negative. Will continue monitoring. To follow-up with gastroenterology upon discharge. speech therapy on board 3. Chronic alcoholic liver disease: Is chronically elevated liver transaminases as well as alkaline phosphatase is and restart her baseline. Has right upper quadrant tenderness. Getting right upper quadrant ultrasound to assess. 4. Asymptomatic bacteriuria: stable. Urine culture grew E. coli, but this is chronic. No antibiotics as she is stable 5. Hypertension: poorly controlled. on atenolol 100mg daily. will add on PO amlodipine 5mg daily and adjust as necessary 6. Hypothyroidism: on synthroid 7. Rheumatoid arthritis: On tramadol. No longer on methotrexate or prednisone. She told me that she follows up with Dr. Garcia but according to previous notes, she was kicked out of Dr. Garcia's practice. She likely has some element of fibromyalgia as well as complains of generalized pain and is very tender on touching her anywhere on her body. 8. Depression and bipolar disorder: Was referred to behavioral health service but it is to follow-up. Encouraged to follow-up upon discharge. 8. DVT prophylaxis: Lovenox 9. GI prophylaxis: PPI This note was generated with [employer] dictation software. It may contain incorrect words, spelling, and punctuation that were not noted in checking the note before signing. Code Visit Inpatient E&M: 31211 [facility] Hosp L3
[2018-02-02] MEDS: amLODIPine 5 MG Tablet PO (11:49)
--- NOTE | 2018-02-02 14:42 | CHAPLAIN ---
Type of Pastoral Visit _x__ Initial Visit ___ Follow-up Visit ___ On-call Visit ___ General Patient Visit ___ Spiritual Assessment ___ Family Conference ___ Bereavement ___ Rapid Response ___ Code Blue ___ Other (describe below) Pastoral Care Referral From _x__ Patient ___ Family ___ Nurse ___ Physician ___ Court Manager ___ Community Health Specialist ___ Other (describe below) Sacrament/Intervention _x__ Active listening ___ Anointing ___ Taoist ___ Bereavement ___ Communion ___ Litzy exploration ___ ___ Life review ___ Prayer ___ Reconciliation ___ Sacrament of Sick _x__ Supportive presence ___ Wedding ___ Other (describe below) Pastoral Comments
[2018-02-02] MEDS: Acetaminophen 325 MG Tablet 650 MG PO (15:06)
[2018-02-03 02:20] VITALS: BP 169/103; PULSE 79; RESP 18; TEMP 36.3; O2SAT 100
[2018-02-03 02:30] VITALS: BP 169/103; PULSE 79; RESP 18; TEMP 36.3; O2SAT 100
[2018-02-03] MEDS: Morphine 4 MG/ML Syringe IV (02:33)
[2018-02-03] MEDS: Levothyroxine 75 MCG Tablet PO (04:30)
[2018-02-03] MEDS: proMETHazine 25 MG/ML Syringe 12.5 MG IV (04:31)
[2018-02-03 05:07] LABS: IgG, Quant 605 mg/dL (700-1600); Immunoglobulin G, Subclass 1 263 mg/dL (248-810); Immunoglobulin G, Subclass 2 276 mg/dL (130-555); Immunoglobulin G, Subclass 3 76 mg/dL (15-102)
[2018-02-03 06:23] LABS: Absolute Lymphocyte Count 0.44 X10^3/ul (0.83-4.51); Absolute Neutrophil Count 4.2 X10^3/uL (2.0-7.7); Basophil# 0.01 X10^3/uL; Basophil% 0.2 % (0-1); Eosinophil# 0.13 X10^3/uL; Eosinophils% 2.4 % (0-5); Hematocrit 44.1 % (37-47); Hemoglobin 14.5 g/dl (12.0-15.0); Lymphocyte # 0.44 X10^3/ul (4.0); Lymphocyte % 8.1 % (19-41); Mean Corp Hgb Conc 32.9 g/gl (32-36); Mean Corpuscular Hgb 32.9 pg (27.0-32.0); Neutrophil # 4.24 X10^3/uL (2.7-7.7); Neutrophil % 77.7 % (47-70); Platelet Count 161 K/mm3 (150-450); RBC Distribution Width CV 12.8 % (11.6-14.6); RBC Distribution Width SD 46.7 fl (35.1-43.9); Red Blood Count 4.41 M/mm3 (4.2-5.4); White Blood Count 5.5 K/mm3 (4.4-11.0)
[2018-02-03 06:28] LABS: Differential Indicated SCAN CRITERIA MET; POSITIVE COUNT NO; POSITIVE DIFFERENTIAL YES; POSITIVE MORPHOLOGY NO
[2018-02-03 06:35] LABS: ALB/GLOB Ratio 0.7 RATIO (0.9-2.4); AST(SGOT) 43 U/L (15-37); Alanine Aminotransfer ALT/SGPT 48 U/L (13-56); Albumin, Serum 2.6 g/dL (3.2-5.0); Alkaline Phosphatase 144 U/L (45-117); Anion Gap 11 (5-15); BUN 3 mg/dL (7-18); BUN/Creat Ratio 5.4 RATIO (10-20); Calcium,Total 7.6 mg/dL (8.5-10.1); Chloride 105 mmol/L (98-107); Creatinine, Serum 0.56 mg/dL (0.55-1.02); EST Glomerular Filtration Rate 115 mL/min (>60); Est Glom Filt Rate - Afr Amer 139 mL/min (>60); Estimated Creatinine Clearance 47.78 ml/min; Globulin 3.7 g/dL (2.2-4.2); Glucose 162 mg/dL (74-106); Potassium 2.9 mmol/L (3.5-5.1); Protein, Total 6.3 g/dL (6.4-8.2); Sodium Level 144 mmol/L (136-145)
[2018-02-03] MEDS: Acetaminophen 325 MG Tablet 650 MG PO ×2 (07:57→13:59)
[2018-02-03] MEDS: Ondansetron 4 MG/2 ML Vial IV ×2 (07:58→18:44)
[2018-02-03] MEDS: oxyCODONE 5 MG Tablet PO ×4 (07:58→22:46)
[2018-02-03] MEDS: Thiamine Hydrochloride 100 MG Tablet PO (07:59)
[2018-02-03] MEDS: Folic Acid 1 MG Tablet PO (07:59)
[2018-02-03] MEDS: Multivitamins,Therapeutic Tablet 1 TABLET PO (07:59)
[2018-02-03] MEDS: Atenolol 100 MG Tablet PO (08:08)
[2018-02-03] MEDS: Pantoprazole Sodium 40 MG Tablet PO ×2 (08:08→20:24)
[2018-02-03] MEDS: Enoxaparin 40 MG/0.4 ML Syringe SC (08:09)
[2018-02-03] MEDS: amLODIPine 10 MG Tablet PO (08:12)
[2018-02-03 08:20] VITALS: BP 147/69; PULSE 67; RESP 18; TEMP 36.7; O2SAT 98
[2018-02-03] MEDS: 0.9% Normal Saline 1,000 ML 100 ML IV (09:37)
[2018-02-03 10:09] LABS: Immunoglobulin G, Subclass 4 75 mg/dL (2-96)
--- NOTE | 2018-02-03 11:29 | PCM.PN.HOSP ---
Patient Problems: Active and Suspected Problems Acute recurrent pancreatitis (Acute) Subjective: Patient seen and examined. She was lying comfortably in bed at time of review. However as an assented patient started complaining that she was in so much pain and pain was generalized and was due to oh to she was able to tolerate clear liquids and soft diet yesterday. Patient states she has generalized abdominal pain, back pain, shoulder pain, extremity pain and headache. She was reading a book about autoimmune conditions as she said she was sure that her pancreatitis was caused by autoimmune problems. Patient denied any fever or chills, any cough, any shortness of breath, any diarrhea vomiting. 12 point Review of systems is otherwise negative. Vitals/I&O's: Vital Signs Temp Pulse Resp BP Pulse Ox 98.0 F 67 18 147/69 H 98 02/03/18 08:20 02/03/18 08:20 02/03/18 08:20 02/03/18 08:20 02/03/18 08:20 Oxygen Delivery Method Room Air Weight: 145 lb 1.027 oz Body Mass Index (BMI) 24.1 Intake and Output for Last 24 Hours 02/01/18 02/02/18 02/03/18 23:59 23:59 23:59 Intake Total 2309 / 2309 1854 / 1854 2592 / 2592 Output Total 200 / 200 300 / 300 1250 / 1250 Balance 2109 / 2109 1554 / 1554 1342 / 1342 General: Alert, Oriented x3, Cooperative, No apparent distress HEENT: Atraumatic, PERRLA, EOMI, Normocephalic Oral: Moist Mucosa Neck: Supple, No JVD, Negative Carotid Bruits Lungs: Clear to auscultation, Normal air movement, No rhonchi, No wheeze, No rales Cardiovascular: Regular rate, Regular Rhythm, Normal S1, Normal S2, No murmurs Abdomen: Bowel Sounds Present, Soft, Non Tender, Non-Distended, No Hepato-splenomegaly Extremities: No clubbing, No cyanosis, No edema, Capillary Refill Less than 3 Seconds Skin: No rashes, No breakdown Musculoskeletal: No Tenderness to Palpation of Joints or Extremities Lymphatic: No Cervical, Supraclavicular, or Inguinal Adenopathy Neurological: Cranial nerves II-XII grossly intact, Motor Exam 5/5 strength throughout Psych/Mental Status: Normal Affect, Appropriate, Alert and oriented to time, place, person, mood and affect Laboratory Results 01/31/18 06:35: IgG Total 605 L, IgG1 263, IgG2 276, IgG3 76, IgG4 75 02/03/18 05:28: WBC 5.5, RBC 4.41, Hgb 14.5, Hct 44.1, MCV 100.0 H, MCH 32.9 H, MCHC 32.9, RDW 12.8, RDW Differential 46.7 H, Plt Count 161, MPV 9.0, Immature Gran % (Auto) 0.600, Neut % (Auto) 77.7 H, Lymph % (Auto) 8.1 L, Terry % (Auto) 11.0 H, Eos % (Auto) 2.4, Baso % (Auto) 0.2, Absolute Neuts (auto) 4.2, Absolute Lymphs (auto) 0.44 L, Total Counted Not Reportable 02/03/18 05:28: Sodium 144, Potassium 2.9 L, Chloride 105, Carbon Dioxide 28.0, Anion Gap 11, BUN 3 L, Creatinine 0.56, Estim Creat Clear Calc 47.78, Est GFR (MDRD) Af Amer 139, Est GFR (MDRD) Non-Af 115, BUN/Creatinine Ratio 5.4 L, Glucose 162 H, Calcium 7.6 L, Total Bilirubin 0.60, AST 43 H, ALT 48, Alkaline Phosphatase 144 H, Total Protein 6.3 L, Albumin 2.6 L, Globulin 3.7, Albumin/Globulin Ratio 0.7 L Current Medications Acetaminophen (Tylenol) 650 mg PO Q6H PRN PRN PRN Reason: Mild Pain (scale 0-3)/T>100.7 Last Admin: 02/03/18 07:57 Dose: 650 mg Al Hydroxide/Mg Hydroxide (Mylanta Ii) 30 ml PO Q6H PRN PRN PRN Reason: Gastric burning Amlodipine Besylate (Norvasc) 10 mg PO DAILY [facility] Last Admin: 02/03/18 08:12 Dose: 10 mg Atenolol (Tenormin (Beta Terry)) 100 mg PO DAILY [facility] Last Admin: 02/03/18 08:08 Dose: 100 mg Bisacodyl (Dulcolax) 10 mg RECTAL DAILY PRN PRN PRN Reason: Constipation Enoxaparin Sodium (Lovenox) 40 mg SC DAILY@1000 [facility] Last Admin: 02/03/18 08:09 Dose: 40 mg Folic Acid (Folic Acid) 1 mg PO DAILY@0800 [facility] Last Admin: 02/03/18 07:59 Dose: 1 mg Sodium Chloride () 250 mls @ 15 mls/hr IV .[id number] PRN PRN Reason: SALINE FLUSH Last Admin: 02/01/18 09:30 Dose: 15 mls/hr Levothyroxine Sodium (Synthroid) 75 mcg PO DAILY@0600 [facility] Last Admin: 02/03/18 04:30 Dose: 75 mcg Magnesium Hydroxide (Milk Of Magnesia) 30 ml PO DAILY PRN PRN PRN Reason: Constipation Morphine Sulfate () 1 - 2 mg IV Q4H PRN PRN PRN Reason: SEVERE PAIN (6-10/10) Last Admin: 02/03/18 02:33 Dose: 2 mg [facility]ivitamins ([facility]ivitamin) [facility] Last Admin: 02/03/18 07:59 Dose: 1 tablet Ondansetron HCl (Zofran) 4 mg IV Q6H PRN PRN PRN Reason: NAUSEA Last Admin: 02/03/18 07:58 Dose: 4 mg Oxycodone HCl (Oxyir) 5 mg PO Q4H PRN PRN PRN Reason: Moderate Pain (pain scale 4-5) Last Admin: 02/03/18 07:58 Dose: 5 mg Pantoprazole Sodium (Protonix) 40 mg PO BID [facility] Last Admin: 02/03/18 08:08 Dose: 40 mg Promethazine HCl (Phenergan) 12.5 mg IV Q6H PRN PRN PRN Reason: NAUSEA/VOMITING Last Admin: 02/03/18 04:31 Dose: 12.5 mg Sodium Chloride () 5 - 30 ml IV UD PRN PRN Reason: SALINE FLUSH Last Admin: 02/02/18 11:49 Dose: 20 ml Thiamine HCl (Vitamin B1) [facility] Last Admin: 02/03/18 07:59 Dose: 100 mg Zolpidem Tartrate (Ambien (Generic)) 5 mg PO QHS PRN PRN PRN Reason: INSOMNIA Medical Necessity - Tobacco Use Smoking Status: Current every day smoker Assessment/Plan All Active Problems Acute recurrent pancreatitis (Acute) Acute pancreatitis (Acute) 1. Acute pancreatitis, aetiology is unclear at this time Patient still denies she drinks alcohol though it has been documented numerous times that she does drink. Right upper quadrant ultrasound done was negative for any gallstones. IgG checked was low and therefore another cause of her pancreatitis. Tolerated clear liquids and soft diet. Patient ready for discharge. However patient refuses to go home today and states she wants to stay 1 more day because she thinks her autoimmune condition that is causing her pancreatitis. Patient counseled extensively that there is nothing else has been done for her in the hospital. Per discussion with nurse, it turns out that patient is a very frequent flyer she always malingers and does not want to go home. Patient states is uncomfortable about going home because she is scared that something will happen to her today if she goes home 2. Oropharyngeal dysphagia She says she has a feeling of something getting stuck in her throat when she swallows. She had modified barium swallow and EGD in October 2017 and this was negative. Will continue monitoring. To follow-up with gastroenterology upon discharge. speech therapy on board 3. Chronic alcoholic liver disease: Stable. RUQ USG showed fatty infiltration of the liver. Is chronically elevated liver transaminases as well as alkaline phosphatase is and is at her baseline. 4. Asymptomatic bacteriuria: stable. Urine culture grew E. coli, but this is chronic. No antibiotics as she is stable 5. Hypertension: poorly controlled. on atenolol 100mg daily. Amlodipine 10 mg daily added. 6. Hypothyroidism: on synthroid 7. Rheumatoid arthritis: On tramadol. No longer on methotrexate or prednisone. She told me that she follows up with Dr. Garcia but according to previous notes, she was kicked out of Dr. Garcia's practice. 8. Depression and bipolar disorder: Was referred to behavioral health service but is yet to follow-up. Encouraged to follow-up upon discharge. 9. DVT prophylaxis: Lovenox 10. GI prophylaxis: PPI Disposition: Patient refuses to go home today. Will discharge home tomorrow. This note was generated with [employer] dictation software. It may contain incorrect words, spelling, and punctuation that were not noted in checking the note before signing. Code Visit Inpatient E&M: 48048 Subs Hosp L2
--- NOTE | 2018-02-03 11:37 | PN_ITS ---
Patient Problems: Active and Suspected Problems Acute recurrent pancreatitis (Acute) Subjective: Patient seen and examined. She was lying comfortably in bed at time of review. However as an assented patient started complaining that she was in so much pain and pain was generalized and was due to oh to she was able to tolerate clear liquids and soft diet yesterday. Patient states she has generalized abdominal pain, back pain, shoulder pain, extremity pain and headache. She was reading a book about autoimmune conditions as she said she was sure that her pancreatitis was caused by autoimmune problems. Patient denied any fever or chills, any cough, any shortness of breath, any diarrhea vomiting. 12 point Review of systems is otherwise negative. Vitals/I&O's: Vital Signs Temp Pulse Resp BP Pulse Ox 98.0 F 67 18 147/69 H 98 02/03/18 08:20 02/03/18 08:20 02/03/18 08:20 02/03/18 08:20 02/03/18 08:20 Oxygen Delivery Method Room Air Weight: 145 lb 1.027 oz Body Mass Index (BMI) 24.1 Intake and Output for Last 24 Hours 02/01/18 02/02/18 02/03/18 23:59 23:59 23:59 Intake Total 2309 / 2309 1854 / 1854 2592 / 2592 Output Total 200 / 200 300 / 300 1250 / 1250 Balance 2109 / 2109 1554 / 1554 1342 / 1342 General: Alert, Oriented x3, Cooperative, No apparent distress HEENT: Atraumatic, PERRLA, EOMI, Normocephalic Oral: Moist Mucosa Neck: Supple, No JVD, Negative Carotid Bruits Lungs: Clear to auscultation, Normal air movement, No rhonchi, No wheeze, No rales Cardiovascular: Regular rate, Regular Rhythm, Normal S1, Normal S2, No murmurs Abdomen: Bowel Sounds Present, Soft, Non Tender, Non-Distended, No Hepato- splenomegaly Extremities: No clubbing, No cyanosis, No edema, Capillary Refill Less than 3 Seconds Skin: No rashes, No breakdown Musculoskeletal: No Tenderness to Palpation of Joints or Extremities Lymphatic: No Cervical, Supraclavicular, or Inguinal Adenopathy Neurological: Cranial nerves II-XII grossly intact, Motor Exam 5/5 strength throughout Psych/Mental Status: Normal Affect, Appropriate, Alert and oriented to time, place, person, mood and affect Laboratory Results 01/31/18 06:35: IgG Total 605 L, IgG1 263, IgG2 276, IgG3 76, IgG4 75 02/03/18 05:28: WBC 5.5, RBC 4.41, Hgb 14.5, Hct 44.1, MCV 100.0 H, MCH 32.9 H, MCHC 32.9, RDW 12.8, RDW Differential 46.7 H, Plt Count 161, MPV 9.0, Immature Gran % (Auto) 0.600, Neut % (Auto) 77.7 H, Lymph % (Auto) 8.1 L, Door % (Auto) 11.0 H, Eos % (Auto) 2.4, Baso % (Auto) 0.2, Absolute Neuts (auto) 4.2, Absolute Lymphs (auto) 0.44 L, Total Counted Not Reportable 02/03/18 05:28: Sodium 144, Potassium 2.9 L, Chloride 105, Carbon Dioxide 28.0, Anion Gap 11, BUN 3 L, Creatinine 0.56, Estim Creat Clear Calc 47.78, Est GFR ( MDRD) Af Amer 139, Est GFR (MDRD) Non-Af 115, BUN/Creatinine Ratio 5.4 L, Glucose 162 H, Calcium 7.6 L, Total Bilirubin 0.60, AST 43 H, ALT 48, Alkaline Phosphatase 144 H, Total Protein 6.3 L, Albumin 2.6 L, Globulin 3.7, Albumin/ Globulin Ratio 0.7 L Current Medications Acetaminophen (Tylenol) 650 mg PO Q6H PRN PRN PRN Reason: Mild Pain (scale 0-3)/T>100.7 Last Admin: 02/03/18 07:57 Dose: 650 mg Al Hydroxide/Mg Hydroxide (Mylanta Ii) 30 ml PO Q6H PRN PRN PRN Reason: Gastric burning Amlodipine Besylate (Norvasc) 10 mg PO DAILY [facility] Last Admin: 02/03/18 08:12 Dose: 10 mg Atenolol (Tenormin (Beta Terry)) 100 mg PO DAILY [facility] Last Admin: 02/03/18 08:08 Dose: 100 mg Bisacodyl (Dulcolax) 10 mg RECTAL DAILY PRN PRN PRN Reason: Constipation Enoxaparin Sodium (Lovenox) 40 mg SC DAILY@1000 [facility] Last Admin: 02/03/18 08:09 Dose: 40 mg Folic Acid (Folic Acid) 1 mg PO DAILY@0800 [facility] Last Admin: 02/03/18 07:59 Dose: 1 mg Sodium Chloride () 250 mls @ 15 mls/hr IV .[id number] PRN PRN Reason: SALINE FLUSH Last Admin: 02/01/18 09:30 Dose: 15 mls/hr Levothyroxine Sodium (Synthroid) 75 mcg PO DAILY@0600 [facility] Last Admin: 02/03/18 04:30 Dose: 75 mcg Magnesium Hydroxide (Milk Of Magnesia) 30 ml PO DAILY PRN PRN PRN Reason: Constipation Morphine Sulfate () 1 - 2 mg IV Q4H PRN PRN PRN Reason: SEVERE PAIN (6-10/10) Last Admin: 02/03/18 02:33 Dose: 2 mg [facility]it[facility]amin) [facility] Last Admin: 02/03/18 07:59 Dose: 1 tablet Ondansetron HCl (Zofran) 4 mg IV Q6H PRN PRN PRN Reason: NAUSEA Last Admin: 02/03/18 07:58 Dose: 4 mg Oxycodone HCl (Oxyir) 5 mg PO Q4H PRN PRN PRN Reason: Moderate Pain (pain scale 4-5) Last Admin: 02/03/18 07:58 Dose: 5 mg Pantoprazole Sodium (Protonix) 40 mg PO BID [facility] Last Admin: 02/03/18 08:08 Dose: 40 mg Promethazine HCl (Phenergan) 12.5 mg IV Q6H PRN PRN PRN Reason: NAUSEA/VOMITING Last Admin: 02/03/18 04:31 Dose: 12.5 mg Sodium Chloride () 5 - 30 ml IV UD PRN PRN Reason: SALINE FLUSH Last Admin: 02/02/18 11:49 Dose: 20 ml Thiamine HCl (Vitamin B1) [facility] Last Admin: 02/03/18 07:59 Dose: 100 mg Zolpidem Tartrate (Ambien (Generic)) 5 mg PO QHS PRN PRN PRN Reason: INSOMNIA Medical Necessity - Tobacco Use Smoking Status: Current every day smoker Assessment/Plan All Active Problems Acute recurrent pancreatitis (Acute) Acute pancreatitis (Acute) 1. Acute pancreatitis, aetiology is unclear at this time * Patient still denies she drinks alcohol though it has been documented numerous times that she does drink. * Right upper quadrant ultrasound done was negative for any gallstones. IgG checked was low and therefore another cause of her pancreatitis. Tolerated clear liquids and soft diet. * Patient ready for discharge. However patient refuses to go home today and states she wants to stay 1 more day because she thinks her autoimmune condition that is causing her pancreatitis. * Patient counseled extensively that there is nothing else has been done for her in the hospital. Per discussion with nurse, it turns out that patient is a very frequent flyer she always malingers and does not want to go home. Patient states is uncomfortable about going home because she is scared that something will happen to her today if she goes home * * 2. Oropharyngeal dysphagia * She says she has a feeling of something getting stuck in her throat when she swallows. She had modified barium swallow and EGD in October 2017 and this was negative. * Will continue monitoring. To follow-up with gastroenterology upon discharge. * speech therapy on board * 3. Chronic alcoholic liver disease: * Stable. RUQ USG showed fatty infiltration of the liver. * Is chronically elevated liver transaminases as well as alkaline phosphatase is and is at her baseline. * 4. Asymptomatic bacteriuria: stable. Urine culture grew E. coli, but this is chronic. No antibiotics as she is stable 5. Hypertension: poorly controlled. on atenolol 100mg daily. Amlodipine 10 mg daily added. 6. Hypothyroidism: on synthroid 7. Rheumatoid arthritis: * On tramadol. No longer on methotrexate or prednisone. She told me that she follows up with Dr. Garcia but according to previous notes, she was kicked out of Dr. Garcia's practice. * 8. Depression and bipolar disorder: Was referred to behavioral health service but is yet to follow-up. Encouraged to follow-up upon discharge. 9. DVT prophylaxis: Lovenox 10. GI prophylaxis: PPI Disposition: Patient refuses to go home today. Will discharge home tomorrow. This note was generated with [employer] software. It may contain incorrect words, spelling, and punctuation that were not noted in checking the note before signing. * Code Visit Inpatient E&M: 04212 Subs Hosp L2
--- NOTE | 2018-02-03 13:53 | CHAPLAIN ---
Type of Pastoral Visit ___ Initial Visit _x__ Follow-up Visit ___ On-call Visit ___ General Patient Visit ___ Spiritual Assessment ___ Family Conference ___ Bereavement ___ Rapid Response ___ Code Blue ___ Other (describe below) Pastoral Care Referral From _x__ Patient ___ Family ___ Nurse ___ Physician ___ Water Vessel Captain ___ Veneer Gluer ___ Other (describe below) Sacrament/Intervention _x__ Active listening ___ Anointing ___ Restorationist ___ Bereavement ___ Communion _x__ Litzy exploration ___ _x__ Life review _x__ Prayer ___ Reconciliation ___ Sacrament of Sick _x__ Supportive presence ___ Wedding ___ Other (describe below) Pastoral Comments follow up with patient; pt said that she was so glad that she had someone to talk to and indicates that she does not have people in her life that do that; pt indicates that people don't believe her when she talks about her illness or needs; pt said that she feels bad about her mother dying years ago and wishes she could tell her now about how she feels; pt said she would like to go to a advent but talks herself out of it; pt welcomed prayer
[2018-02-03 14:20] VITALS: BP 114/76; PULSE 70; RESP 18; TEMP 36.7; O2SAT 97
[2018-02-03 17:14] LABS: Vitamin B1, Thiamine 233.4 nmol/L (66.5-200.0)
[2018-02-03] MEDS: 0.9% NaCl Peripheral Flush Adult/Peds IV (18:44)
[2018-02-03 20:20] VITALS: BP 132/78; PULSE 74; RESP 18; TEMP 36.8; O2SAT 97
[2018-02-04 02:19] VITALS: BP 151/94; PULSE 72; RESP 18; TEMP 37.2; O2SAT 99
[2018-02-04] MEDS: Levothyroxine 75 MCG Tablet PO (06:02)
[2018-02-04 08:13] VITALS: BP 127/55; PULSE 66; RESP 16; TEMP 36.8; O2SAT 99
[2018-02-04 08:24] LABS: Anion Gap 8 (5-15); BUN 5 mg/dL (7-18); Calcium,Total 7.9 mg/dL (8.5-10.1); Chloride 109 mmol/L (98-107); Creatinine, Serum 0.62 mg/dL (0.55-1.02); EST Glomerular Filtration Rate 101 mL/min (>60); Est Glom Filt Rate - Afr Amer 122 mL/min (>60); Glucose 151 mg/dL (74-106); Potassium 3.7 mmol/L (3.5-5.1); Sodium Level 143 mmol/L (136-145)
[2018-02-04] MEDS: oxyCODONE 5 MG Tablet PO (08:29)
[2018-02-04] MEDS: Thiamine Hydrochloride 100 MG Tablet PO (08:29)
[2018-02-04] MEDS: Multivitamins,Therapeutic Tablet 1 TABLET PO (08:29)
[2018-02-04] MEDS: Folic Acid 1 MG Tablet PO (08:29)
--- NOTE | 2018-02-04 09:34 | PCM.DC ---
- Discharge Diagnoses Current Active Problems: Current Active and Chronic Problems Acute recurrent pancreatitis (Acute) You will use the following diet at home:: Cardiac Your food should be the consistency of: Regular Your liquids should be the consistency of: Regular/Thin Discharge Activity: Return to Normal Activity Weight Bearing Status: Weight bearing as tolerated Call your doctor if you observe: Shortness of breath, Dizziness, - - abdominal pain Instructions: Discharge Instructions for Acute Pancreatitis Allergies/Adverse Reactions: Allergies nickel [Nickel] Allergy (Verified 01/30/18 19:38) Rash prochlorperazine edisylate [From Compazine] Adverse Reaction (Verified 01/30/18 19:38) disoriented prochlorperazine maleate [From Compazine] Adverse Reaction (Verified 01/30/18 19:38) DISORIENTED Medications to take at Discharge Atenolol [Tenormin (beta rené)] 100 mg PO DAILY 05/20/17 Levothyroxine [Synthroid] 75 mcg PO DAILY #30 tab 10/23/17 traMADol [Ultram] 50 mg PO TID PRN PRN #20 tab 10/23/17 Primary Care Physician: Brant Howard Chi, MD [Primary Care Provider] - Please follow up with your Primary Care Physician in: one week Test Results: Test results from this visit will be discussed in further detail at your follow-up appointment, if applicable. Proposed Discharge Date: 02/04/18
--- NOTE | 2018-02-04 09:38 | PCM.DC.SUM ---
Discharge Date and Diagnosis - Problem List Patient Problems: Active and Suspected Problems Acute recurrent pancreatitis (Acute) Date of Admission: 01/30/18 Date of Discharge: 02/04/18 - Primary Discharge Diagnosis Active and Suspected Problems Acute recurrent pancreatitis (Acute) - Secondary Discharge Diagnosis Chronic Problems Alcohol abuse (Chronic) Hypertension (Chronic) Hypothyroidism (Chronic) Anxiety (Chronic) Fibromyalgia (Chronic) Dysphagia (Chronic) Rheumatoid arthritis (Chronic) Psoriasis (Chronic) Chronic back pain (Chronic) osteoarthritis Delusional disorder (Chronic) Bipolar disorder (Chronic) Chronic alcohol use (Chronic) Depression with H/o suicidal attempt (Chronic) Hospital Course and Treatment Imaging Results: Laboratory Tests 01/30/18 01/30/18 01/30/18 19:52 20:00 20:00 WBC 9.8 RBC 5.14 Hgb 17.3 H Hct 49.9 H MCV 97.1 MCH 33.7 H MCHC 34.7 RDW 12.7 RDW Differential 45.0 H Plt Count 230 MPV 8.7 Immature Gran % (Auto) 1.200 H Neut % (Auto) 84.9 H Lymph % (Auto) 7.0 L [place] % (Auto) 5.9 Eos % (Auto) 0.8 Baso % (Auto) 0.2 Absolute Neuts (auto) 8.3 H Absolute Lymphs (auto) 0.69 L Total Counted Not Reportable Sodium 136 Potassium 3.6 Chloride 92 L Carbon Dioxide 26.0 Anion Gap 18 H BUN 9 Creatinine 0.57 Estim Creat Clear Calc 47.78 Est GFR (MDRD) Af Amer 136 Est GFR (MDRD) Non-Af 112 BUN/Creatinine Ratio 15.9 Glucose 97 Calcium 10.9 H Total Bilirubin 0.70 Direct Bilirubin GGT AST 85 H ALT 83 H Alkaline Phosphatase 172 H Total Protein 7.7 Albumin 3.5 Globulin 4.2 Albumin/Globulin Ratio 0.8 L Lipase 3896 H Whole Bld Vitamin B1 Vitamin B12 Folate TSH Free T4 Urine Color [place] Urine Clarity Cloudy Urine pH 6.0 Ur Specific [place] 1.020 Urine Protein 30 H Urine Glucose (UA) Normal Urine Ketones 150 H Urine Occult Blood 25 H Urine Nitrite Negative Urine Bilirubin 1 H Urine Urobilinogen Normal Ur Leukocyte Esterase 500 H Urine RBC 0 SEEN Urine WBC 10-25 SEEN Ur Squamous Epith Cells 0 SEEN Ur Transition Epith Cell 0-5 SEEN Urine Bacteria 3+ Urine Mucus 0 SEEN Ethyl Alcohol IgG Total IgG1 IgG2 IgG3 IgG4 08/24/18 08/24/18 08/25/18 20:00 20:00 06:35 WBC RBC Hgb Hct MCV MCH MCHC RDW RDW Differential Plt Count MPV Immature Gran % (Auto) Neut % (Auto) Lymph % (Auto) [place] % (Auto) Eos % (Auto) Baso % (Auto) Absolute Neuts (auto) Absolute Lymphs (auto) Total Counted Sodium Potassium Chloride Carbon Dioxide Anion Gap BUN Creatinine Estim Creat Clear Calc Est GFR (MDRD) Af Amer Est GFR (MDRD) Non-Af BUN/Creatinine Ratio Glucose Calcium Total Bilirubin 0.70 Direct Bilirubin 0.26 GGT AST 84 H ALT 81 H Alkaline Phosphatase 166 H Total Protein 7.8 Albumin 3.5 Globulin 4.3 H Albumin/Globulin Ratio Lipase Whole Bld Vitamin B1 Vitamin B12 Folate TSH Free T4 Urine Color Urine Clarity Urine pH Ur Specific [place] Urine Protein Urine Glucose (UA) Urine Ketones Urine Occult Blood Urine Nitrite Urine Bilirubin Urine Urobilinogen Ur Leukocyte Esterase Urine RBC Urine WBC Ur Squamous Epith Cells Ur Transition Epith Cell Urine Bacteria Urine Mucus Ethyl Alcohol 3.0 IgG Total 605 L IgG1 263 IgG2 276 IgG3 76 IgG4 75 01/31/18 01/31/18 01/31/18 06:35 06:35 06:35 WBC 6.6 RBC 4.31 Hgb 14.4 Hct 43.6 MCV 101.2 H MCH 33.4 H MCHC 33.0 RDW 12.7 RDW Differential 46.2 H Plt Count 199 MPV 8.8 Immature Gran % (Auto) 0.900 Neut % (Auto) 77.6 H Lymph % (Auto) 11.2 L [place] % (Auto) 8.6 Eos % (Auto) 1.5 Baso % (Auto) 0.2 Absolute Neuts (auto) 5.1 Absolute Lymphs (auto) 0.74 L Total Counted Not Reportable Sodium 141 Potassium 3.6 Chloride 101 Carbon Dioxide 27.0 Anion Gap 13 BUN 9 Creatinine 0.44 L Estim Creat Clear Calc 47.78 Est GFR (MDRD) Af Amer 180 Est GFR (MDRD) Non-Af 148 BUN/Creatinine Ratio 20.2 H Glucose 72 L Calcium 8.6 Total Bilirubin Direct Bilirubin GGT 347 H AST ALT Alkaline Phosphatase Total Protein Albumin Globulin Albumin/Globulin Ratio Lipase 1388 H Whole Bld Vitamin B1 Vitamin B12 > 2000 H Folate 18.90 TSH 2.80 Free T4 0.98 Urine Color Urine Clarity Urine pH Ur Specific [place] Urine Protein Urine Glucose (UA) Urine Ketones Urine Occult Blood Urine Nitrite Urine Bilirubin Urine Urobilinogen Ur Leukocyte Esterase Urine RBC Urine WBC Ur Squamous Epith Cells Ur Transition Epith Cell Urine Bacteria Urine Mucus Ethyl Alcohol IgG Total IgG1 IgG2 IgG3 IgG4 01/31/18 02/01/18 02/03/18 06:35 05:03 05:28 WBC 5.5 RBC 4.41 Hgb 14.5 Hct 44.1 MCV 100.0 H MCH 32.9 H MCHC 32.9 RDW 12.8 RDW Differential 46.7 H Plt Count 161 MPV 9.0 Immature Gran % (Auto) 0.600 Neut % (Auto) 77.7 H Lymph % (Auto) 8.1 L [place] % (Auto) 11.0 H Eos % (Auto) 2.4 Baso % (Auto) 0.2 Absolute Neuts (auto) 4.2 Absolute Lymphs (auto) 0.44 L Total Counted Not Reportable Sodium Potassium Chloride Carbon Dioxide Anion Gap BUN Creatinine Estim Creat Clear Calc Est GFR (MDRD) Af Amer Est GFR (MDRD) Non-Af BUN/Creatinine Ratio Glucose Calcium Total Bilirubin Direct Bilirubin GGT AST ALT Alkaline Phosphatase Total Protein Albumin Globulin Albumin/Globulin Ratio Lipase 475 H Whole Bld Vitamin B1 233.4 H Vitamin B12 Folate TSH Free T4 Urine Color Urine Clarity Urine pH Ur Specific [place] Urine Protein Urine Glucose (UA) Urine Ketones Urine Occult Blood Urine Nitrite Urine Bilirubin Urine Urobilinogen Ur Leukocyte Esterase Urine RBC Urine WBC Ur Squamous Epith Cells Ur Transition Epith Cell Urine Bacteria Urine Mucus Ethyl Alcohol IgG Total IgG1 IgG2 IgG3 IgG4 02/03/18 02/04/18 05:28 07:30 WBC RBC Hgb Hct MCV MCH MCHC RDW RDW Differential Plt Count MPV Immature Gran % (Auto) Neut % (Auto) Lymph % (Auto) [place] % (Auto) Eos % (Auto) Baso % (Auto) Absolute Neuts (auto) Absolute Lymphs (auto) Total Counted Sodium 144 143 Potassium 2.9 L 3.7 Chloride 105 109 H Carbon Dioxide 28.0 26.0 Anion Gap 11 8 BUN 3 L 5 L Creatinine 0.56 0.62 Estim Creat Clear Calc 47.78 47.10 Est GFR (MDRD) Af Amer 139 122 Est GFR (MDRD) Non-Af 115 101 BUN/Creatinine Ratio 5.4 L 8.0 L Glucose 162 H 151 H Calcium 7.6 L 7.9 L Total Bilirubin 0.60 Direct Bilirubin GGT AST 43 H ALT 48 Alkaline Phosphatase 144 H Total Protein 6.3 L Albumin 2.6 L Globulin 3.7 Albumin/Globulin Ratio 0.7 L Lipase Whole Bld Vitamin B1 Vitamin B12 Folate TSH Free T4 Urine Color Urine Clarity Urine pH Ur Specific [place] Urine Protein Urine Glucose (UA) Urine Ketones Urine Occult Blood Urine Nitrite Urine Bilirubin Urine Urobilinogen Ur Leukocyte Esterase Urine RBC Urine WBC Ur Squamous Epith Cells Ur Transition Epith Cell Urine Bacteria Urine Mucus Ethyl Alcohol IgG Total IgG1 IgG2 IgG3 IgG4 Diagnostic Data Gallbladder Ultrasound 02/02/18 09:36 IMPRESSION: Mild hepatomegaly. Diffuse fatty infiltration of the liver. Electronically Signed: Edison Varela MD at 11:24 EDT Tel [phone], Service support , Operations: None Procedures: None Summary of Care Provided: The patient is a 67 year old F with history of recurrent alcoholic pancreatitis with multiple admissions, rheumatoid arthritis, hypertension and hypothyroidism. She was admitted via the ED on 01/30/18 with a complaint of severe abdominal pain. She couldnt tell when her last drink was, and actually denied alcohol use. Lipase was severely elevated at 3896. She was admitted and managed for acute pancreatitis, likely alcohol induced. Alchohol level was <3. She was started on IV fluids and pain meds. Lipase trended down to 475. Patient however Complain of Generalized Pain Especially Abdominal Pain and Had Right Upper Quadrant Tenderness with Positive Anaya Sign. Right Upper Quadrant Ultrasound Done Was Negative for Gallstones or Cholecystitis. She Had Had Previous Gallbladder Ultrasound Done in September for Similar Presentation Which Was Also Negative. Patient Insisted That She Thought Her Autoimmune Conditions Was Was Causing Her Pancreatitis. Serum IgG Was Therefore Checked to Assess for Autoimmune Pancreatitis but It Was Negative and not elevated. Patient had hypokalemia during admission which resolved with potassium supplementation. Patient remained stable and was discharged home on 02/04/2018. Patient requested for community territory development manager as she said she lives alone and want someone to be calling if she needs help. She did not want to go to a senior living and also refused home health. Discussed with sample case porter and she was set up a community territory development manager for patient. Patient seen and examined prior to discharge. She had no complaints and felt better. She however says that she was worried about going home because she did not have anyone to call. As stated above, community territory development manager with [facility] been set up for patient by sample case porter. She denies any fever chills, any cough or chest pain, shortness of breath, abdominal pain, any diarrhea vomiting. Review of systems otherwise negative. Labs and vitals reviewed. Home medications reviewed and reconciled. o/e: vitals: Vital Signs Height 5 ft 5 in Weight: 145 lb 1.027 oz Weight in Pounds 145.1 lbs Pulse Ox 99 Temperature 98.2 F Pulse Rate 66 Respiratory Rate 16 Blood Pressure [BP] 149/76 Blood Pressure 127/55 Blood Pressure Position [BP] Semi-Fowlers Blood Pressure Position Left Lateral General: Alert, Oriented x3, Cooperative, No apparent distress HEENT: Atraumatic, PERRLA, EOMI, Normocephalic Oral: Moist Mucosa Neck: Supple, No JVD, Negative Carotid Bruits Lungs: Clear to auscultation, Normal air movement, No rhonchi, No wheeze, No rales Cardiovascular: Regular rate, Regular Rhythm, Normal S1, Normal S2, No murmurs Abdomen: Bowel Sounds Present, Soft, Non Tender, Non-Distended, No Hepato-splenomegaly Extremities: No clubbing, No cyanosis, No edema, Capillary Refill Less than 3 Seconds Skin: No rashes, No breakdown Musculoskeletal: No Tenderness to Palpation of Joints or Extremities Lymphatic: No Cervical, Supraclavicular, or Inguinal Adenopathy Neurological: Cranial nerves II-XII grossly intact, Motor Exam 5/5 strength throughout Psych/Mental Status: Normal Affect, Appropriate, Alert and oriented to time, place, person, mood and affect Plan as stated above. She is to follow up with her PCP in one week. [] Discharge Diet: 2000 mg Sodium Diet Discharge Activity: Return to Normal Activity Weight Bearing Status: Weight bearing as tolerated Call your doctor if you observe: Shortness of breath, Dizziness, - - abdominal pain Home Medications: Medications to take at Discharge Atenolol [Tenormin (beta rené)] 100 mg PO DAILY 05/20/17 Levothyroxine [Synthroid] 75 mcg PO DAILY #30 tab 10/23/17 traMADol [Ultram] 50 mg PO TID PRN PRN #20 tab 10/23/17 Primary Care Physician: Brant Howard Chi, MD [Primary Care Provider] - Please follow up with your Primary Care Physician in: one week Patient Instructions: Discharge Instructions for Acute Pancreatitis Disposition: Home Minutes spent on discharge:: 35 Patient Condition:: Stable Medical Necessity - Tobacco Use Smoking Status: Current every day smoker Meaningful Use Info Meaningful Use Diagnoses (Choose all that apply): None applicable Code Visit Inpatient E&M: 73430 Disch Hosp
[2018-02-04] MEDS: amLODIPine 10 MG Tablet PO (10:17)
[2018-02-04] MEDS: Atenolol 100 MG Tablet PO (10:18)
[2018-02-04] MEDS: Pantoprazole Sodium 40 MG Tablet PO (10:18)
--- NOTE | 2018-02-06 14:23 | CASEMGMT ---
LEYDA KAY Discharge F/U Phone Call LACE: 14 Strata: 4 Discharge date: 02/04/18 Call date: 02/06/18 Call time: 1423 Attempted to reach pt without success at this time, unable to leave a message at this time. SStaten LEYDA CM Admission dx: Pancreatitis
== END 2018-02-04 10:33 | disposition home or self-care (01) | DRG 439 ==
LOC: ED 20:13 → MS3 21:33
PROVIDERS: Hospitalist; Admitting Provider Internal Medicine; Emergency Provider Emergency Medicine; Family Provider Family Medicine Geriatric Medicine; PCP Family Medicine Geriatric Medicine; Visit Provider Student in an Organized Health Care Education/Training Program
DX: K85.90 Acute pancreatitis without necrosis or infection, unspecified (principal); N30.00 Acute cystitis without hematuria; E03.9 Hypothyroidism, unspecified; I10 Essential (primary) hypertension; F31.9 Bipolar disorder, unspecified; M79.7 Fibromyalgia; F17.200 Nicotine dependence, unspecified, uncomplicated; F10.10 Alcohol abuse, uncomplicated; L40.9 Psoriasis, unspecified; G89.29 Other chronic pain; M54.9 Dorsalgia, unspecified; M19.90 Unspecified osteoarthritis, unspecified site; F22 Delusional disorders; Z87.440 Personal history of urinary (tract) infections; F41.9 Anxiety disorder, unspecified; M06.9 Rheumatoid arthritis, unspecified
CPT/HCPCS: 36415; 76705; 80048; 80053; 80076; 80320; 81001; 82607; 82746; 82784; 82787; 82977; 83690; 84425; 84439; 84443; 85025; 87086; 87088; 87186; 92526; 97110; 97116; 97162; 97165; 97530; 99285; 99406; J7030; J7050; A4216; G0480; J2405; J3420; J3490

== ENCOUNTER 2018-09-03 07:13 | Inpatient (IN) | payer MEDICARE, SELFPAY ==
[2018-09-03] VITALS (23 sets, daily range): BP systolic 137–201; BP diastolic 63–116; PULSE 89–121; RESP 15–25; TEMP 36.8–37.2; O2SAT 97–100; BMI 23.8; BMI 23.3; BMI 23.4
--- NOTE | 2018-09-03 07:22 | EKG12_ITS ---
Test Reason : NAUSEA/VOMITING Blood Pressure : / mmHG Vent. Rate : 113 BPM Atrial Rate : 113 BPM P-R Int : 146 ms QRS Dur : 068 ms QT Int : 378 ms P-R-T Axes : 056 017 035 degrees QTc Int : 518 ms Sinus tachycardia Possible Left atrial enlargement Nonspecific ST and T wave abnormality Abnormal ECG Confirmed by ANETTE LORENZ, ROBIN ([id number]), newspaper copy editor LACIE DOUGLASS ([id number]) on 09/07/2018 2:11:34 PM Referred By: UG Confirmed By:ROBIN CHEEMA MD
[2018-09-03] MEDS: 0.9% Normal Saline 1,000 ML 1000 ML IV (07:38)
[2018-09-03] MEDS: Ondansetron 4 MG/2 ML Vial IV (07:38)
--- NOTE | 2018-09-03 07:48 | RAD_ITS ---
STUDY: X-RAY CHEST REASON FOR EXAM: Female, 68 years old. Dyspnea. TECHNIQUE: AP and lateral views of the chest. COMPARISON: Comparison is made with prior examination dated May 20, 2017. FINDINGS: EKG electrodes are seen. There is elevation of the right hemidiaphragm. Scattered calcified granulomas. The lungs are clear. There is no demonstrated pleural abnormality. Normal size heart. Normal mediastinum and miguel angel. Normal visualized pulmonary arteries. There is atherosclerotic tortuosity of the aortic arch and descending thoracic aorta. There is demineralization of the osseous structures. Normal visualized ribs, clavicles, and shoulders. There is no demonstrated abnormality of the visualized soft tissue structures of the upper abdomen. RAD/Chest PA and Lateral IMPRESSION: Normal x-ray examination of the chest. Electronically Signed: Edison Varela, at 8:28 EDT , Service support ,
[2018-09-03 07:55] LABS: Absolute Lymphocyte Count 1.69 X10^3/ul (0.83-4.51); Absolute Neutrophil Count 10.3 X10^3/uL (2.0-7.7); Basophil# 0.03 X10^3/uL; Basophil% 0.2 % (0-1); Eosinophil# 0.01 X10^3/uL; Eosinophils% 0.1 % (0-5); Hematocrit 52.9 % (37-47); Hemoglobin 17.3 g/dl (12.0-15.0); Lymphocyte # 1.69 X10^3/ul (4.0); Lymphocyte % 13.4 % (19-41); Mean Corp Hgb Conc 32.7 g/gl (32-36); Mean Corpuscular Volume 107.1 fL (81-99); Mean Platelet Vol. 9.4 fl (6.2-12.0); Monocyte# 0.53 X10^3/uL; Monocyte% 4.2 % (0-10); Neutrophil # 10.25 X10^3/uL (2.7-7.7); Neutrophil % 81.1 % (47-70); Platelet Count 213 K/mm3 (150-450); RBC Distribution Width CV 13.6 % (11.6-14.6); RBC Distribution Width SD 52.9 fl (35.1-43.9); Red Blood Count 4.94 M/mm3 (4.2-5.4); White Blood Count 12.6 K/mm3 (4.4-11.0)
[2018-09-03 07:57] LABS: Differential Indicated SCAN CRITERIA MET; POSITIVE COUNT NO; POSITIVE DIFFERENTIAL NO; POSITIVE MORPHOLOGY YES
--- NOTE | 2018-09-03 08:13 | ED.DCSUM_ITS ---
History of Present Illness Chief Complaint: Nausea/Vomiting/Diarrhea Informant: Patient Onset: Days Context: - - Onset 2 days ago. She denies diarrhea. She does not always answer question asked and answers are not related to what was asked or even prior question. She Timing: - - Uncertain Quality: Patient not able to qualitate or quantitate Location: Hurts all over Current Severity: Severe Maximum Severity: Severe Worsened by: Uncertain Relieved by: Nothing Associated Symptoms: Nausea and vomiting Narrative: Patient is an elderly woman who states the main reason she is here is hurting all over. Triage documents nausea, vomiting and diarrhea. She denies diarrhea. 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 Review of old records indicates patient attributes wearing a metal anchor call bracelet as the cause of her heavy metal toxicity. Patient not forthcoming with her drinking history. She minimizes. She denies recent alcohol use; however, I believe I smell alcohol on her breath. Patient is not a good informant. What she will admit to is body aches, nausea and vomiting and discoloration of her skin. Prior similar symptoms: Yes Recent Illness/Hospitalization: No - Past Medical History (1) Acute recurrent pancreatitis Status: Chronic (2) Alcohol abuse Status: Chronic (3) Anxiety Status: Chronic (4) Bipolar disorder Status: Chronic (5) Chronic back pain Status: Chronic Comment: osteoarthritis (6) Delusional disorder Status: Chronic (7) Fibromyalgia Status: Chronic (8) Hypertension Status: Chronic (9) Hypothyroidism Status: Chronic (10) Psoriasis Status: Chronic (11) Rheumatoid arthritis Status: Chronic Past Medical History - Allergies and Home Meds Allergies/Adverse Reactions: Allergies nickel [Nickel] Allergy (Verified 09/03/18 07:23) Rash prochlorperazine edisylate [From Compazine] Adverse Reaction (Verified 09/03/18 07:23) disoriented prochlorperazine maleate [From Compazine] Adverse Reaction (Verified 09/03/18 07:23) DISORIENTED Primary Care Physician: Care Physician,No Primary [Primary Care Provider] - Prior records reviewed: Yes - Because of her heavy metal toxicity Surgical History: no surgical history Lives: Alone Smoking Status: Current every day smoker Alcohol: Heavy - Family History Maternal Family History: Reports: Unknown, No pertinent history Paternal Family History: Reports: Unknown Review of Systems ROS: Unable to Obtain Gastrointestinal: Reports: Nausea, Vomiting Musculoskeletal: Reports: Myalgias, Arthralgias Skin: Reports: Rash Physical Exam Vital Signs/Narrative: Vital Signs Temp Pulse Resp BP Pulse Ox 09/03/18 07:14 98.2 F 114 H 25 H 158/70 H 100 Inital Vital Signs reviewed: Yes General: Well nourished, Well developed, Unkempt Head: Normocephalic, Atraumatic Eyes: Perrl, EOMI. Negative for: Pale conjunctiva, Scleral icterus ENT: No rhinorrhea, TM's clear, Dry mucous membranes Neck: Supple, Nontender Cardiovascular: Regular rhythm, Normal S1, Normal S2, Tachycardia Respiratory: CTA bilaterally, - - Patient is tachypneic and appears short of breath. Abdomen: No masses, Tender - Tenderness left upper quadrant., Guarding, Hypoactive bowel sounds. Negative for: Rebound tenderness, Hepatomegaly, Splenomegaly, Mass, Pulsatile mass Back: Nontender, Normal Inspection Extremities: Nontender, No edema Skin: Cyanosis - Acrocyanosis, No Trauma, -. Negative for: Jaundice, Pallor Neurological: Cranial nerves II-XII grossly intact, Normal Strength, Normal Sensation, Normal DTR - 3+ upper and lower extremity and symmetric with no clonus or Babinski sign., Confused - Patient thought content is not normal., Disoriented - Time only. Negative for: Alert, Oriented x3 Psychological: - - Affect is restricted Diagnostic/Tx/Re-eval Impressions Chest X-Ray 09/03/18 07:48 IMPRESSION: Normal x-ray examination of the chest. Electronically Signed: Edison Varela, at 8:28 EDT , Service support , 09/03/18 07:48 Chest PA and Lateral [RAD] Stat 09/03/18 09:30 Abdomen/Pelvis W IV Cont ONLY [CT] Stat Laboratory Results 09/03/18 09/03/18 09/03/18 07:40 07:40 07:40 WBC 12.6 H RBC 4.94 Hgb 17.3 H Hct 52.9 H MCV 107.1 H MCH 35.0 H MCHC 32.7 RDW 13.6 RDW Differential 52.9 H Plt Count 213 MPV 9.4 Immature Gran % (Auto) 1.000 H Neut % (Auto) 81.1 H Lymph % (Auto) 13.4 L [place] % (Auto) 4.2 Eos % (Auto) 0.1 Baso % (Auto) 0.2 Absolute Neuts (auto) 10.3 H Absolute Lymphs (auto) 1.69 Total Counted Not Reportable Specimen Type Sample Site pH Bicarbonate Actual POC Total CO2 Base Excess O2 Saturation ABG pCO2 ABG pO2 Gm Test O2 Delivery Device Blood Gas Notified Whom Blood Gas Notified Time Sodium 135 L Potassium 4.3 Chloride 99 Carbon Dioxide 9.0 L* Anion Gap 27 H BUN 17 Creatinine 0.88 Estim Creat Clear Calc 53.53 Est GFR (MDRD) Af Amer 82 Est GFR (MDRD) Non-Af 67 BUN/Creatinine Ratio 19.3 Glucose 129 H Lactic Acid Calcium 8.7 Total Bilirubin 0.60 AST 225 H ALT 135 H Alkaline Phosphatase 201 H Total Protein 8.3 H Albumin 4.1 Globulin 4.2 Albumin/Globulin Ratio 1.0 Lipase 3452 H Urine Color Urine Clarity Urine pH Ur Specific [place] Urine Protein Urine Glucose (UA) Urine Ketones Urine Occult Blood Urine Nitrite Urine Bilirubin Urine Urobilinogen Ur Leukocyte Esterase Urine RBC Urine WBC Ur Squamous Epith Cells Ur Transition Epith Cell Amorphous Sediment Urine Bacteria Hyaline Casts Urine Mucus Ethyl Alcohol 111.0 Acetone Level 09/03/18 09/03/18 09/03/18 07:40 08:10 08:45 WBC RBC Hgb Hct MCV MCH MCHC RDW RDW Differential Plt Count MPV Immature Gran % (Auto) Neut % (Auto) Lymph % (Auto) [place] % (Auto) Eos % (Auto) Baso % (Auto) Absolute Neuts (auto) Absolute Lymphs (auto) Total Counted Specimen Type Sample Site pH Bicarbonate Actual POC Total CO2 Base Excess O2 Saturation ABG pCO2 ABG pO2 Gm Test O2 Delivery Device Blood Gas Notified Whom Blood Gas Notified Time Sodium Potassium Chloride Carbon Dioxide Anion Gap BUN Creatinine Estim Creat Clear Calc Est GFR (MDRD) Af Amer Est GFR (MDRD) Non-Af BUN/Creatinine Ratio Glucose Lactic Acid 6.4 H* Calcium Total Bilirubin AST ALT Alkaline Phosphatase Total Protein Albumin Globulin Albumin/Globulin Ratio Lipase Urine Color Yellow Urine Clarity Clear Urine pH 5.0 Ur Specific [place] 1.025 Urine Protein 30 H Urine Glucose (UA) Normal Urine Ketones 150 H Urine Occult Blood 10 H Urine Nitrite Negative Urine Bilirubin Negative Urine Urobilinogen Normal Ur Leukocyte Esterase Negative Urine RBC 0 SEEN Urine WBC 0-5 SEEN Ur Squamous Epith Cells 0-5 SEEN Ur Transition Epith Cell 0-5 SEEN Amorphous Sediment 1+ Urine Bacteria 1+ Hyaline Casts 0-5 SEEN Urine Mucus 1+ Ethyl Alcohol Acetone Level SMALL H 09/03/18 09:05 WBC RBC Hgb Hct MCV MCH MCHC RDW RDW Differential Plt Count MPV Immature Gran % (Auto) Neut % (Auto) Lymph % (Auto) [place] % (Auto) Eos % (Auto) Baso % (Auto) Absolute Neuts (auto) Absolute Lymphs (auto) Total Counted Specimen Type ART Sample Site R Radial pH 7.05 L* Bicarbonate Actual 4.7 L POC Total CO2 5 Base Excess -26 L O2 Saturation 95 ABG pCO2 17.0 L* ABG pO2 106 H Gm Test POS O2 Delivery Device Room Air Blood Gas Notified Whom ED Blood Gas Notified Time 900 Sodium Potassium Chloride Carbon Dioxide Anion Gap BUN Creatinine Estim Creat Clear Calc Est GFR (MDRD) Af Amer Est GFR (MDRD) Non-Af BUN/Creatinine Ratio Glucose Lactic Acid Calcium Total Bilirubin AST ALT Alkaline Phosphatase Total Protein Albumin Globulin Albumin/Globulin Ratio Lipase Urine Color Urine Clarity Urine pH Ur Specific [place] Urine Protein Urine Glucose (UA) Urine Ketones Urine Occult Blood Urine Nitrite Urine Bilirubin Urine Urobilinogen Ur Leukocyte Esterase Urine RBC Urine WBC Ur Squamous Epith Cells Ur Transition Epith Cell Amorphous Sediment Urine Bacteria Hyaline Casts Urine Mucus Ethyl Alcohol Acetone Level - Medical Decision Making Patient presents with complaint of body aches. Clinically she appears ill. She has mottling, acrocyanosis and delayed capillary refill.. Concern patient has shock. Patient is not a good informant. There is concern for pancreatitis and she has left upper quadrant pain with nausea and vomiting. Will obtain appropriate blood work to look for metabolic cause of her change in mental status, infectious. Chest x-ray was normal. UA reveals bacteria without evidence of pyuria. Culture was sent. This was secondary to a cath specimen. Funk was placed for accurate I's and O's. Patient initially ordered 2 L of normal saline. Once blood gas and electric panel returned IV fluid changed to lactated Ringer's per Dr. Kong Silva suggestion. He was informed the patient's history physical. Agrees with admission ICU. Spoke with hospitalist, Dr. Sandhya Ruggiero who requested CT of the abdomen prior to transport to ICU. Discussed administration of antibiotics. Since the cause of her illness is unknown at this time antibiotics were held. - Critical Care Time Critical care time (excluding procedures): 30-74 minutes - 42 minutes, Discussing w/Patient &/or Family/Book Coverer, Discussing w/Consultants, Arranging Admission or Transfer, Performing Direct Patient Care at Bedside ED Disposition - Plan for ED Patient: Disposition: Acute Care [facility] Diagnosis: Shock, unspecified, Acute pancreatitis, Bacteria in urine, Lactic acidosis, Leukocytosis, Alcohol intoxication in active alcoholic with complication, Bipolar disorder, Hypertension, Delusional disorder Referrals: Care Physician,No Primary [Primary Care Provider] -
[2018-09-03 08:17] LABS: Red Blood Cells-Urine 0 SEEN /hpf (0-5)
--- NOTE | 2018-09-03 08:17 | ED.RN ---
PT WITH ODOR OF ALCOHOL, DENIES DRINKING TODAY. STATES LAST DRINK YESTERDAY, VERY SMALL AMOUNT TO GET MY PAIN UNDER CONTROL.
[2018-09-03 08:21] LABS: Color, Urine Yellow (Yellow); Glucose, Dipstick Normal (Normal); Leukocyte Esterase-Dipstick Negative /ul (Negative); Nitrite-Dipstick Negative (Negative); Occult Blood-Urine 10 /ul (Negative); Protein-Dipstick 30 mg/dl (Negative); Specific Gravity, Urine 1.025 (1.002-1.030); Urine Bilirubin Dipstick Negative (Negative); Urine Clarity Clear (Clear); Urine Urobilinogen Normal (Normal)
[2018-09-03 08:23] LABS: AST(SGOT) 225 U/L (15-37); Alanine Aminotransfer ALT/SGPT 135 U/L (13-56); Albumin, Serum 4.1 g/dL (3.2-5.0); Alkaline Phosphatase 201 U/L (45-117); Anion Gap 27 (5-15); BUN 17 mg/dL (7-18); BUN/Creat Ratio 19.3 RATIO (10-20); Calcium,Total 8.7 mg/dL (8.5-10.1); Chloride 99 mmol/L (98-107); Creatinine, Serum 0.88 mg/dL (0.55-1.02); EST Glomerular Filtration Rate 67 mL/min (>60); Est Glom Filt Rate - Afr Amer 82 mL/min (>60); Estimated Creatinine Clearance 53.53 ml/min; Globulin 4.2 g/dL (2.2-4.2); Glucose 129 mg/dL (74-106); Lipase 3452 U/L (73-393); Potassium 4.3 mmol/L (3.5-5.1); Protein, Total 8.3 g/dL (6.4-8.2); Sodium Level 135 mmol/L (136-145)
[2018-09-03 08:24] LABS: Lactic Acid 6.4 mmol/L (0.4-2.0)
--- NOTE | 2018-09-03 08:26 | ED.RN ---
LACTIC 6.4 CALLED FROM THE LAB. CO2 9 DR SINCLAIR AWARE
[2018-09-03 08:31] LABS: Ketone-Dipstick 150 mg/dl (Negative)
[2018-09-03 08:35] LABS: Amorphous Sediment 1+; Bacteria 1+ /hpf (None Seen); Hyaline Cast 0-5 SEEN /lpf (0-5); Mucous, Urine 1+ /hpf (<or=2+); Squamous Epithelial Cells - UA 0-5 SEEN /hpf (5-10); Transitional Epithelial - Ur 0-5 SEEN /hpf (0-5); White Blood Cells 0-5 SEEN /hpf (0-5)
[2018-09-03] MEDS: 0.9% Normal Saline 1,000 ML 999 ML IV (09:09)
[2018-09-03] MEDS: LORazepam 2 MG/ML Syringe 1 MG IV (09:13)
[2018-09-03 09:16] LABS: Allen Test POS; Base Excess -26 mmol/L (-2 to +2); Bicarbonate 4.7 mmol/L (22-26); Blood Gas Specimen Type ART; O2 Delivery Device Room Air; PO2 106 mmHG (75-100); SITE R Radial; SO2 95 % (95-99); Time Given 900; Total Carbon Dioxide 5 mmol/L; pH 7.05 (7.35-7.45)
--- NOTE | 2018-09-03 09:25 | NURSING ---
DR JUAN SINCLAIR
--- NOTE | 2018-09-03 09:30 | CT_ITS ---
We are attempting to reach Gerry Lowe MD to discuss findings. An addendum with communication details will be sent when the communication is complete. STUDY: CT ABDOMEN AND PELVIS WITH CONTRAST REASON FOR EXAM: Female, 68 years old. Abdominal pain. Cirrhosis. Elevated white blood count. RADIATION DOSAGE (If Supplied By Facility): CTDIvol = ( 15.79 ) mGy, DLP = ( 472.14 ) mGycm TECHNIQUE: Transaxial images were obtained from the dome of the diaphragm to the symphysis pubis without oral contrast. 100mL IV Isovue 300 was administered. Sagittal and coronal images were reconstructed. Individualized dose optimization techniques were used for this CT. COMPARISON: May 24, 2017. FINDINGS: The visualized lung bases are unremarkable. The visualized portions of the heart are within normal limits. There is wall thickening of the distal esophagus with esophagitis versus varices. There is hepatomegaly with diffuse hepatic enlargement. Normal gallbladder and extrahepatic biliary system. Normal spleen. There is focal calcification in the pancreatic head consistent with stone in the distal common duct versus chronic pancreatitis. Normal bilateral adrenal glands. Normal right kidney. Normal left kidney. Normal visualized stomach. Normal small intestine. Normal colon. There is non-visualization of the appendix. There is atherosclerotic calcification of the abdominal aorta, without a demonstrated aneurysm. Normal inferior vena cava. Normal retroperitoneum. Normal urinary bladder. Normal visualized uterus. There is no free fluid in the abdomen or pelvis. Normal abdominal wall. Normal osseous structures. CT/Abdomen/Pelvis W IV Cont ONLY IMPRESSION: Distal common bile duct stone versus chronic pancreatitis. There is no biliary dilatation. Consider ultrasound and/or MRCP for further imaging evaluation. Wall thickening of the distal esophagus with esophagitis versus varices. Hepatomegaly. Electronically Signed: Anil Villatoro MD at 10:54 EDT , Service support ,
--- NOTE | 2018-09-03 09:45 | NURSING ---
ICU 3 LACTIC ACIDOSIS, PANCREATITIS, ALCOHOLISM SEMENTI
--- NOTE | 2018-09-03 09:53 | CPS ---
Critical blood gas results gave to at 0910. Sandra
--- NOTE | 2018-09-03 10:11 | CON.PCM_ITS ---
Reason for Consult Date of Consultation: 09/03/18 Reason for Consultation: Pancreatitis/severe metabolic acidosis/lactic acidemia History of Present Illness: The patient is a 68-year-old female, with a history as outlined below, who presented to the emergency department on September 03 with complaints of abdominal pain, nausea and vomiting. The patient reports a myriad of comorbid conditions including multiple sclerosis, psoriatic arthritis, rheumatoid arthritis, hypothyroidism and fibromyalgia. She is an active smoker 1 pack of cigarettes daily. In addition, she does currently consume alcohol on what I presume to be a daily basis. She reports that her last alcoholic beverage was this morning and consisted of vodka and water. She states that she was using the alcohol in an attempt to alleviate her abdominal pain. The patient states that she follows with Dr. Garcia of rheumatology for her aforementioned autoimmune disorders. On presentation to the emergency department, the patient was noted to be tachycardic but hemodynamically stable. She was maintaining appropriate oxygen saturations on room air. Laboratory evaluation revealed a mildly elevated white blood cell count to 13,000. She did have macrocytic blood indices and appeared to be significantly hemoconcentrated. Chemistry profile revealed a sodium of 135, bicarbonate of 9.0 and an elevated anion gap to 27. Serum lactate was increased to 6.4. AST was increased to 225, ALT was increased to 135 and alkaline phosphatase was increased to 201. Lipase was elevated to 3452. TSH was within normal limits. Alcohol level was elevated to 111. The patient did have a small acetone level. Plain film chest x-ray revealed no acute cardiopulmonary process. CT abdomen/pelvis with contrast revealed a distal common bile duct stone versus chronic pancreatitis. There was no biliary dilation. There was wall thickening of the distal esophagus with esophagitis versus varices. The patient received supplemental IV fluid hydration and was subsequently admitted to the medical intensive care unit for ongoing management. Past Medical History Past Medical History (Chronic Problems): Chronic Problems Alcohol abuse (Chronic) pt denies but, ETOH is 111 at admission Hypertension (Chronic) Hypothyroidism (Chronic) Anxiety (Chronic) Fibromyalgia (Chronic) Dysphagia (Chronic) Rheumatoid arthritis (Chronic) never confirmed.....RA is negative.....tells me that she has psoriatic arthritis Psoriasis (Chronic) Chronic back pain (Chronic) osteoarthritis Delusional disorder (Chronic) Bipolar disorder (Chronic) Depression with H/o suicidal attempt (Chronic) Allergies nickel [Nickel] Allergy (Verified 09/03/18 07:23) Rash prochlorperazine edisylate [From Compazine] Adverse Reaction (Verified 09/03/18 07:23) disoriented prochlorperazine maleate [From Compazine] Adverse Reaction (Verified 09/03/18 07:23) DISORIENTED Home Medications: Ambulatory Orders Medication Instructions Recorded Atenolol [Tenormin (beta rené)] 100 mg PO DAILY 05/20/17 Levothyroxine [Synthroid] 75 mcg PO DAILY #30 tab 10/23/17 traMADol [Ultram] 50 mg PO TID PRN PRN #20 tab 10/23/17 Surgical History: no surgical history Lives: Alone Smoking Status: Current every day smoker Alcohol: Heavy - *Family History Maternal History Items: Unknown, No pertinent history Paternal History Items: Unknown Review of Systems Constitutional: Reports: Malaise, Weakness, Fatigue Eyes: Denies: Blurred vision, Double vision HEENT: Denies: Head Aches, Sinus Congestion, Sinus Drainage Cardiovascular: Denies: Chest Pain, Palpitations Respiratory: Denies: Cough, Shortness of breath at rest, Sputum production Gastrointestinal: Reports: Abdominal Pain, Nausea, Vomiting Genitourinary: Denies: Dysuria Musculoskeletal: Denies: Joint Pain, Joint Tenderness Skin: Denies: Rash, Wounds Neurological: Denies: Numbness, Tingling, Focal weakness Psychiatric: Denies: Anxiety, Depression, Homicidal Ideations, Suicidal Ideations Hematologic/ Lymphatic: Reports: Anemia Patient Problems: Active and Suspected Problems Shock, unspecified (Acute) Lactic acidosis (Acute) Alcohol intoxication in active alcoholic with complication (Acute) Alcoholic ketosis (Acute) Metabolic acidosis (Acute) Dehydration (Acute) Abnormal LFTs (Acute) Objective: The patient's most recent lab work, culture data and imaging studies have all been personally reviewed. Blood and urine cultures are currently pending. - Physical Exam General: Alert, Cooperative, No apparent distress HEENT: Atraumatic, PERRLA, Normocephalic Oral: No Gingival or Mucosal Lesions/ Ulcerations, Dry Mucosa Neck: Supple, No Nodes, Trachea Midline Lungs: No rhonchi, No wheeze, No rales, Diminished Cardiovascular: Normal S1, Normal S2, No murmurs, Tachycardic Abdomen: Bowel Sounds Present, Soft, Non-Distended, - - Diffuse tenderness to palpation without rebound, guarding or rigidity. Extremities: No clubbing, No cyanosis, No edema Skin: No breakdown Musculoskeletal: No Muscle Wasting Lymphatic: No Cervical, Supraclavicular, or Inguinal Adenopathy Neurological: Cranial nerves II-XII grossly intact, Neuro grossly intact Psych/Mental Status: Anxious Vital Signs Temp Pulse Resp BP Pulse Ox 36.8 C 117 H 24 H 161/68 H 99 09/03/18 07:14 09/03/18 09:13 09/03/18 09:13 09/03/18 09:13 09/03/18 09:13 Oxygen Delivery Method Room Air Weight: 143 lb 1.28 oz Body Mass Index (BMI) 23.8 Finger Stick Blood Glucose 103 Laboratory Tests Past 24 Hrs 09/03/18 09/03/18 09/03/18 07:40 07:40 07:40 WBC 12.6 H RBC 4.94 Hgb 17.3 H Hct 52.9 H MCV 107.1 H MCH 35.0 H MCHC 32.7 RDW 13.6 RDW Differential 52.9 H Plt Count 213 MPV 9.4 Immature Gran % (Auto) 1.000 H Neut % (Auto) 81.1 H Lymph % (Auto) 13.4 L [place] % (Auto) 4.2 Eos % (Auto) 0.1 Baso % (Auto) 0.2 Absolute Neuts (auto) 10.3 H Absolute Lymphs (auto) 1.69 Total Counted Not Reportable Specimen Type Sample Site pH Bicarbonate Actual POC Total CO2 Base Excess O2 Saturation ABG pCO2 ABG pO2 Gm Test O2 Delivery Device Blood Gas Notified Whom Blood Gas Notified Time Sodium 135 L Potassium 4.3 Chloride 99 Carbon Dioxide 9.0 L* Anion Gap 27 H BUN 17 Creatinine 0.88 Estim Creat Clear Calc 53.53 Est GFR (MDRD) Af Amer 82 Est GFR (MDRD) Non-Af 67 BUN/Creatinine Ratio 19.3 Glucose 129 H Lactic Acid Calcium 8.7 Total Bilirubin 0.60 AST 225 H ALT 135 H Alkaline Phosphatase 201 H Total Protein 8.3 H Albumin 4.1 Globulin 4.2 Albumin/Globulin Ratio 1.0 Lipase 3452 H Urine Color Urine Clarity Urine pH Ur Specific [place] Urine Protein Urine Glucose (UA) Urine Ketones Urine Occult Blood Urine Nitrite Urine Bilirubin Urine Urobilinogen Ur Leukocyte Esterase Urine RBC Urine WBC Ur Squamous Epith Cells Ur Transition Epith Cell Amorphous Sediment Urine Bacteria Hyaline Casts Urine Mucus Ethyl Alcohol 111.0 Acetone Level 09/03/18 09/03/18 09/03/18 07:40 08:10 08:45 WBC RBC Hgb Hct MCV MCH MCHC RDW RDW Differential Plt Count MPV Immature Gran % (Auto) Neut % (Auto) Lymph % (Auto) [place] % (Auto) Eos % (Auto) Baso % (Auto) Absolute Neuts (auto) Absolute Lymphs (auto) Total Counted Specimen Type Sample Site pH Bicarbonate Actual POC Total CO2 Base Excess O2 Saturation ABG pCO2 ABG pO2 Gm Test O2 Delivery Device Blood Gas Notified Whom Blood Gas Notified Time Sodium Potassium Chloride Carbon Dioxide Anion Gap BUN Creatinine Estim Creat Clear Calc Est GFR (MDRD) Af Amer Est GFR (MDRD) Non-Af BUN/Creatinine Ratio Glucose Lactic Acid 6.4 H* Calcium Total Bilirubin AST ALT Alkaline Phosphatase Total Protein Albumin Globulin Albumin/Globulin Ratio Lipase Urine Color Yellow Urine Clarity Clear Urine pH 5.0 Ur Specific [place] 1.025 Urine Protein 30 H Urine Glucose (UA) Normal Urine Ketones 150 H Urine Occult Blood 10 H Urine Nitrite Negative Urine Bilirubin Negative Urine Urobilinogen Normal Ur Leukocyte Esterase Negative Urine RBC 0 SEEN Urine WBC 0-5 SEEN Ur Squamous Epith Cells 0-5 SEEN Ur Transition Epith Cell 0-5 SEEN Amorphous Sediment 1+ Urine Bacteria 1+ Hyaline Casts 0-5 SEEN Urine Mucus 1+ Ethyl Alcohol Acetone Level SMALL H 09/03/18 09:05 WBC RBC Hgb Hct MCV MCH MCHC RDW RDW Differential Plt Count MPV Immature Gran % (Auto) Neut % (Auto) Lymph % (Auto) [place] % (Auto) Eos % (Auto) Baso % (Auto) Absolute Neuts (auto) Absolute Lymphs (auto) Total Counted Specimen Type ART Sample Site R Radial pH 7.05 L* Bicarbonate Actual 4.7 L POC Total CO2 5 Base Excess -26 L O2 Saturation 95 ABG pCO2 17.0 L* ABG pO2 106 H Gm Test POS O2 Delivery Device Room Air Blood Gas Notified Whom ED Blood Gas Notified Time 900 Sodium Potassium Chloride Carbon Dioxide Anion Gap BUN Creatinine Estim Creat Clear Calc Est GFR (MDRD) Af Amer Est GFR (MDRD) Non-Af BUN/Creatinine Ratio Glucose Lactic Acid Calcium Total Bilirubin AST ALT Alkaline Phosphatase Total Protein Albumin Globulin Albumin/Globulin Ratio Lipase Urine Color Urine Clarity Urine pH Ur Specific [place] Urine Protein Urine Glucose (UA) Urine Ketones Urine Occult Blood Urine Nitrite Urine Bilirubin Urine Urobilinogen Ur Leukocyte Esterase Urine RBC Urine WBC Ur Squamous Epith Cells Ur Transition Epith Cell Amorphous Sediment Urine Bacteria Hyaline Casts Urine Mucus Ethyl Alcohol Acetone Level Clinical Impression(s) from Imaging Studies Chest X-Ray 09/03/18 07:48 IMPRESSION: Normal x-ray examination of the chest. Electronically Signed: Edison Nichole, at 8:28 EDT , Service support , Clinical Impression(s) from Imaging Studies Chest X-Ray 09/03/18 07:48 IMPRESSION: Normal x-ray examination of the chest. Electronically Signed: Edison Nichole, at 8:28 EDT , Service support , Abdomen/Pelvis CT 09/03/18 09:30 IMPRESSION: Distal common bile duct stone versus chronic pancreatitis. There is no biliary dilatation. Consider ultrasound and/or MRCP for further imaging evaluation. Wall thickening of the distal esophagus with esophagitis versus varices. Hepatomegaly. Electronically Signed: Anil Villatoro MD at 10:54 EDT , Service support , ADDENDUM: 09/03/18 1121 IMPRESSION: Distal common bile duct stone versus chronic pancreatitis. There is no biliary dilatation. Consider ultrasound and/or MRCP for further imaging evaluation. Wall thickening of the distal esophagus with esophagitis versus varices. Hepatomegaly. N.B. : The above information has been verbally conveyed by Anil Villatoro MD to Kristal [id number], on 09/03/2018 11:14:43 (ET). Electronically Signed: Anil Villatoro MD at 10:54 EDT , Service support , Assessment/Plan Active and Suspected Problems Shock, unspecified (Acute) Lactic acidosis (Acute) Alcohol intoxication in active alcoholic with complication (Acute) Alcoholic ketosis (Acute) Metabolic acidosis (Acute) Dehydration (Acute) Abnormal LFTs (Acute) RECOMMENDATIONS: 1. Continue supplemental IV fluid hydration and n.p.o. status. 2. Await MRCP results. 3. Monitor for any signs of alcohol withdrawal. 4. Initiate thiamine and folate repletion. 5. Continue PPI therapy as ordered. IMPRESSIONS: 1. Acute pancreatitis/elevated transaminase levels Potentially related to impacted common bile duct stone versus alcoholic pancreatitis. MRCP is currently pending. Surgery has been consulted. Continue to monitor lipase and hepatic function profile. Continue IV fluid hydration. Patient to remain n.p.o. for now. 2. Anion gap metabolic acidosis Likely multifactorial in etiology with lactic acidemia and alcoholic/starvation ketosis contributing. Continue supplemental IV fluid hydration as noted above. Recheck serum lactate level. 3. Acute alcohol intoxication/suspected alcohol dependency/chronic tobacco dependency The patient has a suspected long-standing history of alcohol dependency. She will need to be monitored closely for signs of alcohol withdrawal. Continue CIWA protocol. Start thiamine and folate repletion. Nicotine replacement therapy can be offered to the patient while admitted to the hospital. 4. Acute kidney injury Most likely prerenal in etiology. Anticipate improvement with volume expansion. Continue to monitor urine output. No current indication for renal replacement therapy. 5. Bipolar disorder/hypothyroidism/self-reported rheumatoid and psoriatic arthritis Complicates care, management, recovery and prognosis. Check TSH and continue home Synthroid regimen. This note was generated with [employer] software. It may contain incorrect words, spelling, and punctuation that were not noted in checking the note before signing. Code Visit Inpatient E&M: 19242 Init Hosp L3
[2018-09-03 10:58] LABS: Thyroid Stim Hormone (TSH) 1.09 uIU/mL (0.358-3.74)
--- NOTE | 2018-09-03 11:35 | EKG12_ITS ---
Test Reason : Blood Pressure : / mmHG Vent. Rate : 101 BPM Atrial Rate : 101 BPM P-R Int : 158 ms QRS Dur : 080 ms QT Int : 384 ms P-R-T Axes : 057 021 036 degrees QTc Int : 497 ms Sinus tachycardia Otherwise normal ECG When compared with ECG of 03-SEP-2018 07:46, MANUAL COMPARISON REQUIRED, DATA IS UNCONFIRMED Confirmed by LISSETT LORENZ, XIAO ([id number]), sound editor LACIE DOUGLASS ([id number]) on 09/14/2018 1:30:36 PM Referred By: JUAN Confirmed By:XIAO GALEANA MD
[2018-09-03 11:44] LABS: Reflex Lactate? Y
[2018-09-03] MEDS: Lactated Ringers 1,000 ML 250 ML IV ×3 (12:07→21:18)
--- NOTE | 2018-09-03 12:12 | PCM.HP.STD ---
Problem List (1) Alcohol intoxication in active alcoholic with complication Status: Acute (2) Lactic acidosis Status: Acute (3) Shock, unspecified Status: Acute (4) Bipolar disorder Status: Chronic (5) Delusional disorder Status: Chronic (6) Hypertension Status: Chronic (7) Acute recurrent pancreatitis Status: Acute (8) Alcohol abuse Status: Chronic Comment: pt denies but, ETOH is 111 at admission (9) Anxiety Status: Chronic (10) Chronic back pain Status: Chronic Comment: osteoarthritis (11) Depression with H/o suicidal attempt Status: Chronic (12) Dysphagia Status: Chronic (13) Fibromyalgia Status: Chronic (14) Hypothyroidism Status: Chronic (15) Psoriasis Status: Chronic (16) Rheumatoid arthritis Status: Chronic Comment: never confirmed.....RA is negative.....tells me that she has psoriatic arthritis (17) Alcoholic ketosis Status: Acute (18) Metabolic acidosis Status: Acute (19) Dehydration Status: Acute (20) Abnormal LFTs Status: Acute History of Present Illness Date of Admission: 09/03/18 Chief Complaint: N/V x 1 week with total body pain The patient is a 68 year old F with a history of bipolar disorder, psoriatic arthritis, recurrent pancreatitis, hypertension, hypothyroidism, fibromyalgia, dysphagia, psoriasis, delusional disorder, depression and alcohol abuse who0 presented to the ED at [facility] on 09/03/2018 complaining of nausea/vomiting/total body pain for 1 week. She is a poor historian. She tells me she vomits usually twice a day and she has not been able to eat. She denied diarrhea to me. He lives by herself and she denies alcohol abuse. She tells me she has 1 vodka diluted with water once a week. Despite having nausea/vomiting/abdominal pain she has an alcohol level of 111. No signs of presentation to the emergency department were temp 98.2, pulse rate 114, blood pressure 158/70, respiratory rate 25 and she was 100% saturated on room air. Labs showed an elevated white blood cell count at 12.6 with 81% neutrophils. Hemoglobin was 17.3 and the MCV was 107.1. Platelets were within normal limits. An ABG done on room air shows a pH of 7.05, PCO2 of 17 and a PO2 of 106. CMP showed a low sodium at 135 and a very low serum bicarb at 9.0 with an anion gap of 27. BUN was 17 and creatinine was 0.88. Creatinine in January 2018 was 0.56. Lactic acid is 6.4. AST and ALT were elevated at 225 and 135 respectively. Total bili was within normal limits and the alkaline [place] is mildly elevated at 201. Amylase is 3452 and the TSH is within normal limits. A UA showed 0-5 WBCs per high-power field with positive ketones and 0-5 hyaline casts. X-ray showed no infiltrates, pleural effusions or pulmonary vascular congestion. CT scan of the abdomen and pelvis showed possible distal common bile duct stone versus chronic pancreatitis. There was no biliary dilatation however she does have elevated transaminases. There is wall thickening of the distal esophagus either secondary to esophagitis versus varices. There was also hepatomegaly noted. 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 She has had an IgG4 in the past and it was negative. An NAIN was positive but she has not had a double-stranded DNA. Rheumatoid factor was negative. Anti-CCP was within normal limits. She has never had antithyroid antibodies at this institution. She is being admitted to the intensive care unit with severe metabolic acidosis secondary to dehydration and alcoholic ketosis. No indication for antibiotics at this time. Past Medical History Past Medical History (Chronic Problems): Chronic Problems Alcohol abuse (Chronic) pt denies but, ETOH is 111 at admission Hypertension (Chronic) Hypothyroidism (Chronic) Anxiety (Chronic) Fibromyalgia (Chronic) Dysphagia (Chronic) Rheumatoid arthritis (Chronic) never confirmed.....RA is negative.....tells me that she has psoriatic arthritis Psoriasis (Chronic) Chronic back pain (Chronic) osteoarthritis Delusional disorder (Chronic) Bipolar disorder (Chronic) Depression with H/o suicidal attempt (Chronic) Allergies nickel [Nickel] Allergy (Verified 09/03/18 07:23) Rash prochlorperazine edisylate [From Compazine] Adverse Reaction (Verified 09/03/18 07:23) disoriented prochlorperazine maleate [From Compazine] Adverse Reaction (Verified 09/03/18 07:23) DISORIENTED Home Medications: Ambulatory Orders Medication Instructions Recorded Atenolol [Tenormin (beta rené)] 100 mg PO DAILY 05/20/17 Levothyroxine [Synthroid] 75 mcg PO DAILY #30 tab 10/23/17 traMADol [Ultram] 50 mg PO TID PRN PRN #20 tab 10/23/17 Surgical History: no surgical history Psychiatric History: Bipolar, Depression Lives: Alone Smoking Status: Current every day smoker Tobacco Use: Cigarettes Alcohol: Heavy - pt denies Drugs: - - *Family History Maternal History Items: Unknown, No pertinent history Paternal History Items: Unknown, No pertinent history Review of Systems Constitutional: Reports: Anorexia, Malaise, Weakness. Denies: Chills, Fever, Weight Change HEENT: Denies: Head Aches, Sinus Congestion, Sinus Drainage Cardiovascular: Reports: Light Headedness. Denies: Chest Pain, Palpitations Respiratory: Denies: Cough, Shortness of breath at rest, Sputum production Gastrointestinal: Reports: Abdominal Pain, Nausea, Vomiting Genitourinary: Denies: Dysuria Gynecological: Denies: Breast symptoms, Vaginal discharge Musculoskeletal: Reports: Arm Pain, Back Pain, Joint Tenderness, Leg Pain, Neck Pain. Denies: Joint Pain Skin: Reports: - - mild psoriasis. Denies: Rash, Wounds Neurological: Denies: Focal weakness, Numbness, Tingling, Seizures Psychiatric: Reports: Anxiety, Depression. Denies: Homicidal Ideations, Suicidal Ideations Endocrine: Reports: Change in Body Habitus - denies weight loss Hematologic/ Lymphatic: Denies: Easy Bruising, Easy Bleeding VTE Information - Inpt Only VTE Present on Admission: No VTE Mechan Device Prophylaxis: SCD's, Knee High NGUYEN Hose VTE Pharm Prophylaxis ordered?: Yes Patient Problems: Active and Suspected Problems Shock, unspecified (Acute) Lactic acidosis (Acute) Alcohol intoxication in active alcoholic with complication (Acute) Alcoholic ketosis (Acute) Metabolic acidosis (Acute) Dehydration (Acute) Abnormal LFTs (Acute) - Physical Exam General: Alert, Oriented x3, Cooperative, - - she is moaning and c/o total body pain HEENT: Atraumatic, PERRLA, Normocephalic Oral: No Gingival or Mucosal Lesions/ Ulcerations, Dry Mucosa Neck: Supple, No JVD, No Nodes, Trachea Midline Lungs: Clear to auscultation, Diminished Cardiovascular: Regular Rhythm, Normal S1, Normal S2, No murmurs, No rub noted, No Gallop, Tachycardic Abdomen: Soft, Non-Distended, Hypoactive Bowel Sounds, Tender - diffusely....she moans but she does not guard when I palpate the abdomen, even with deep palpation Extremities: No clubbing, No cyanosis, No edema, Peripheral Pulses Normal Skin: No breakdown, - - mild psoriasis on the extremities Musculoskeletal: Arthritic Changes Neurological: Cranial nerves II-XII grossly intact, Neuro grossly intact Psych/Mental Status: Restless Vital Signs Temp Pulse Resp BP Pulse Ox 98.2 F 117 H 24 H 161/68 H 99 09/03/18 07:14 09/03/18 09:13 09/03/18 09:13 09/03/18 09:13 09/03/18 09:13 Oxygen Delivery Method Room Air Weight: 140 lb 10.479 oz Body Mass Index (BMI) 23.3 Finger Stick Blood Glucose 103 Laboratory Tests Past 24 Hrs 09/03/18 09/03/18 09/03/18 07:40 07:40 07:40 WBC 12.6 H RBC 4.94 Hgb 17.3 H Hct 52.9 H MCV 107.1 H MCH 35.0 H MCHC 32.7 RDW 13.6 RDW Differential 52.9 H Plt Count 213 MPV 9.4 Immature Gran % (Auto) 1.000 H Neut % (Auto) 81.1 H Lymph % (Auto) 13.4 L [place] % (Auto) 4.2 Eos % (Auto) 0.1 Baso % (Auto) 0.2 Absolute Neuts (auto) 10.3 H Absolute Lymphs (auto) 1.69 Total Counted Not Reportable Specimen Type Sample Site pH Bicarbonate Actual POC Total CO2 Base Excess O2 Saturation ABG pCO2 ABG pO2 Gm Test O2 Delivery Device Blood Gas Notified Whom Blood Gas Notified Time Sodium 135 L Potassium 4.3 Chloride 99 Carbon Dioxide 9.0 L* Anion Gap 27 H BUN 17 Creatinine 0.88 Estim Creat Clear Calc 53.53 Est GFR (MDRD) Af Amer 82 Est GFR (MDRD) Non-Af 67 BUN/Creatinine Ratio 19.3 Glucose 129 H Lactic Acid Calcium 8.7 Total Bilirubin 0.60 AST 225 H ALT 135 H Alkaline Phosphatase 201 H Total Protein 8.3 H Albumin 4.1 Globulin 4.2 Albumin/Globulin Ratio 1.0 Lipase 3452 H TSH Urine Color Urine Clarity Urine pH Ur Specific [place] Urine Protein Urine Glucose (UA) Urine Ketones Urine Occult Blood Urine Nitrite Urine Bilirubin Urine Urobilinogen Ur Leukocyte Esterase Urine RBC Urine WBC Ur Squamous Epith Cells Ur Transition Epith Cell Amorphous Sediment Urine Bacteria Hyaline Casts Urine Mucus Ethyl Alcohol 111.0 Acetone Level MRSA (PCR) 09/03/18 09/03/18 09/03/18 07:40 07:40 08:10 WBC RBC Hgb Hct MCV MCH MCHC RDW RDW Differential Plt Count MPV Immature Gran % (Auto) Neut % (Auto) Lymph % (Auto) [place] % (Auto) Eos % (Auto) Baso % (Auto) Absolute Neuts (auto) Absolute Lymphs (auto) Total Counted Specimen Type Sample Site pH Bicarbonate Actual POC Total CO2 Base Excess O2 Saturation ABG pCO2 ABG pO2 Gm Test O2 Delivery Device Blood Gas Notified Whom Blood Gas Notified Time Sodium Potassium Chloride Carbon Dioxide Anion Gap BUN Creatinine Estim Creat Clear Calc Est GFR (MDRD) Af Amer Est GFR (MDRD) Non-Af BUN/Creatinine Ratio Glucose Lactic Acid 6.4 H* Calcium Total Bilirubin AST ALT Alkaline Phosphatase Total Protein Albumin Globulin Albumin/Globulin Ratio Lipase TSH 1.09 Urine Color Yellow Urine Clarity Clear Urine pH 5.0 Ur Specific [place] 1.025 Urine Protein 30 H Urine Glucose (UA) Normal Urine Ketones 150 H Urine Occult Blood 10 H Urine Nitrite Negative Urine Bilirubin Negative Urine Urobilinogen Normal Ur Leukocyte Esterase Negative Urine RBC 0 SEEN Urine WBC 0-5 SEEN Ur Squamous Epith Cells 0-5 SEEN Ur Transition Epith Cell 0-5 SEEN Amorphous Sediment 1+ Urine Bacteria 1+ Hyaline Casts 0-5 SEEN Urine Mucus 1+ Ethyl Alcohol Acetone Level MRSA (PCR) 09/03/18 09/03/18 09/03/18 08:45 09:05 11:50 WBC RBC Hgb Hct MCV MCH MCHC RDW RDW Differential Plt Count MPV Immature Gran % (Auto) Neut % (Auto) Lymph % (Auto) [place] % (Auto) Eos % (Auto) Baso % (Auto) Absolute Neuts (auto) Absolute Lymphs (auto) Total Counted Specimen Type ART Sample Site R Radial pH 7.05 L* Bicarbonate Actual 4.7 L POC Total CO2 5 Base Excess -26 L O2 Saturation 95 ABG pCO2 17.0 L* ABG pO2 106 H Gm Test POS O2 Delivery Device Room Air Blood Gas Notified Whom ED Blood Gas Notified Time 900 Sodium Potassium Chloride Carbon Dioxide Anion Gap BUN Creatinine Estim Creat Clear Calc Est GFR (MDRD) Af Amer Est GFR (MDRD) Non-Af BUN/Creatinine Ratio Glucose Lactic Acid Calcium Total Bilirubin AST ALT Alkaline Phosphatase Total Protein Albumin Globulin Albumin/Globulin Ratio Lipase TSH Urine Color Urine Clarity Urine pH Ur Specific [place] Urine Protein Urine Glucose (UA) Urine Ketones Urine Occult Blood Urine Nitrite Urine Bilirubin Urine Urobilinogen Ur Leukocyte Esterase Urine RBC Urine WBC Ur Squamous Epith Cells Ur Transition Epith Cell Amorphous Sediment Urine Bacteria Hyaline Casts Urine Mucus Ethyl Alcohol Acetone Level SMALL H MRSA (PCR) Pending Assessment/Plan All Active Problems Acute recurrent pancreatitis (Acute) Shock, unspecified (Acute) Lactic acidosis (Acute) Alcohol intoxication in active alcoholic with complication (Acute) Alcoholic ketosis (Acute) Metabolic acidosis (Acute) Dehydration (Acute) Abnormal LFTs (Acute) Impressions 1. acute recurrent pancreatitis with N/V/ abdominal pain 2. Alcoholic ketosis 3. Severe metabolic acidosis 4. Possible common bile duct stone 5. Abnormal LFTs - primarily transaminitis 6. History of psoriatic arthritis 7. Hypothyroidism 8. Reported history of rheumatoid arthritis however rheumatoid factor and CCP are both negative 9. Bipolar disorder 10. History of delusional disorder 11. History of alcoholism-patient denies 12. Acute renal failure secondary to severe dehydration 13. Hyponatremia Admit to ICU Hydrate with LR at 250 cc/h Consult Dr. Alba regarding possible common bile duct stone Consult Dr. Silva to participate in management [facility] MRCP Repeat lab at 1600 Check [id number] DNA because she had a positive NAIN in the past Antithyroid antibodies Obtain Dr. Garcia's progress notes Recheck lab in the a.m. Protonix for GI prophylaxis N.p.o.
[2018-09-03] MEDS: Morphine 2 MG/ML Syringe IV ×3 (12:26→21:34)
[2018-09-03] MEDS: Metoprolol Tartrate 5 MG/5 ML Vial IV ×2 (12:27→17:13)
[2018-09-03] MEDS: Enoxaparin 40 MG/0.4 ML Syringe SC (12:27)
[2018-09-03 12:39] LABS: International Normalized Ratio 1.2; Partial Thromboplast Time 25.1 Seconds (24.1-36.2); Prothrombin Time (Protime)PT. 14.7 SECONDS (11.7-14.9)
[2018-09-03] MEDS: 0.9% NaCl IVPB Med Flush (250 mL) 15 ML IV (12:40)
[2018-09-03 12:41] LABS: Bedside Glucose 178 mg/dL (70-110)
--- NOTE | 2018-09-03 12:41 | MRI_ITS ---
STUDY: MRI ABDOMEN WITHOUT CONTRAST REASON FOR EXAM: Female, 68 years old. Evaluate for common bile duct stones. TECHNIQUE: Standardized fat and water weighted pulse sequences were obtained in all 3 orthogonal planes. Several images are limited by patient motion. COMPARISON: CT of the abdomen and pelvis dated May 24, 2017 and September 03, 2017. FINDINGS: The visualized lung bases are unremarkable. The visualized portions of the heart are within normal limits. There are well circumscribed areas of abnormal T2 hyperintensity in the liver probably representing small cysts. The largest measures approximately 7.5 mm in greatest dimension. Normal gallbladder and extrahepatic biliary system. Cystic duct: Cystic duct was not well visualized. Intrahepatic ducts: Intrahepatic ducts were not well visualized. Common hepatic duct: Normal with no demonstrated fixed filling defect, dilation or stricture. Common bile duct: Normal with no demonstrated fixed filling defect, dilation or stricture. Pancreatic duct: Pancreatic duct was not well visualized. Normal spleen. Normal pancreas. Normal bilateral adrenal glands. Normal right kidney. Normal left kidney. Normal visualized stomach. There is no obvious dilated bowel. The colon is not distended There is non-visualization of the appendix. Normal abdominal aorta. Normal inferior vena cava. Normal retroperitoneum. Normal abdominal wall. Normal osseous structures. MRI/MRCP Abdomen without Contrast IMPRESSION: No MR evidence for choledocholithiasis. Electronically Signed: Viky Marie MD at 9:47 EDT , Service support ,
[2018-09-03 12:53] LABS: Amylase 93 U/L (25-115); Magnesium 1.9 mg/dL (1.6-2.6); Phosphorus 3.5 mg/dL (2.5-4.9); Triglycerides 276 mg/dL
--- NOTE | 2018-09-03 12:55 | CASEMGMT ---
LEYDA CM Assessment Presentation: NV x 1 week, ETOH abuse. ETHO level 111, acetone small Pt unable to participate in assessment @ this time. PCP: No PCP- will need to clarify and if pt does not have PCP-will need list of providers prior to dc. 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 Graham. 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 Referral made. SAM RuelasN RN ACM
[2018-09-03 12:58] LABS: Lactic Acid 2.1 mmol/L (0.4-2.0)
[2018-09-03] MEDS: LORazepam 2 MG/ML Syringe IV (13:34)
[2018-09-03 13:46] LABS: M R Staph aureus DNA By PCR Negative (Negative); Probe Check PASS; Specimen Processing Control PASS
[2018-09-03] MEDS: 0.9% NaCl Peripheral Flush Adult/Peds IV ×2 (13:58→17:14)
--- NOTE | 2018-09-03 14:01 | NURSING ---
Pt to MRI via [facility]
--- NOTE | 2018-09-03 15:27 | PCM.CONS.GEN ---
Problem List (1) Acute recurrent pancreatitis Status: Acute Reason for Consult Date of Consultation: 09/03/18 Reason for Consultation: Pancreatitis History of Present Illness: The patient is a 68 year old F here with recurrent pancreatitis. Patient does have alcoholism and history of pancreatitis. Patient is complaining of diffuse abdominal pain but she says it is better than when she first came to the hospital. She was having some nausea and vomiting. She denies any fevers or chills. Past Medical History Past Medical History (Chronic Problems): Chronic Problems Alcohol abuse (Chronic) pt denies but, ETOH is 111 at admission Hypertension (Chronic) Hypothyroidism (Chronic) Anxiety (Chronic) Fibromyalgia (Chronic) Dysphagia (Chronic) Rheumatoid arthritis (Chronic) never confirmed.....RA is negative.....tells me that she has psoriatic arthritis Psoriasis (Chronic) Chronic back pain (Chronic) osteoarthritis Delusional disorder (Chronic) Bipolar disorder (Chronic) Depression with H/o suicidal attempt (Chronic) Allergies nickel [Nickel] Allergy (Verified 09/03/18 07:23) Rash prochlorperazine edisylate [From Compazine] Adverse Reaction (Verified 09/03/18 07:23) disoriented prochlorperazine maleate [From Compazine] Adverse Reaction (Verified 09/03/18 07:23) DISORIENTED Home Medications: Ambulatory Orders Medication Instructions Recorded Atenolol [Tenormin (beta rené)] 100 mg PO DAILY 05/20/17 Levothyroxine [Synthroid] 75 mcg PO DAILY #30 tab 10/23/17 traMADol [Ultram] 50 mg PO TID PRN PRN #20 tab 10/23/17 Surgical History: no surgical history Lives: Alone Smoking Status: Current every day smoker Tobacco Use: Cigarettes Alcohol: Heavy Drugs: - - *Family History Maternal History Items: Unknown, No pertinent history Paternal History Items: Unknown Review of Systems Constitutional: Denies: Chills, Fever HEENT: Denies: Difficulty Swallowing Cardiovascular: Denies: Chest Pain Respiratory: Denies: Cough Gastrointestinal: Reports: Abdominal Pain, Nausea, Vomiting. Denies: Hematemesis, Hematochezia Genitourinary: Denies: Dysuria Skin: Denies: Jaundice Hematologic/ Lymphatic: Denies: Anemia Patient Problems: Active and Suspected Problems Shock, unspecified (Acute) Lactic acidosis (Acute) Alcohol intoxication in active alcoholic with complication (Acute) Alcoholic ketosis (Acute) Metabolic acidosis (Acute) Dehydration (Acute) Abnormal LFTs (Acute) - Physical Exam General: Alert, Oriented x3 HEENT: Atraumatic Neck: Supple Lungs: Normal air movement Cardiovascular: Regular Rhythm, Tachycardic Abdomen: Soft, Non-Distended, Tender - Mild diffuse tenderness with no guarding or rebound Extremities: No clubbing Skin: No rashes Neurological: Cranial nerves II-XII grossly intact Psych/Mental Status: Normal Affect Vital Signs Temp Pulse Resp BP Pulse Ox 98.8 F 102 H 22 H 140/77 H 100 09/03/18 14:00 09/03/18 15:07 09/03/18 15:00 09/03/18 15:00 09/03/18 15:00 Oxygen Delivery Method Room Air Weight: 140 lb 10.479 oz Body Mass Index (BMI) 23.3 Finger Stick Blood Glucose 103 Intake and Output for Last 24 Hours 09/01/18 09/02/18 09/03/18 23:59 23:59 23:59 Output Total 400 / 400 Balance -400 / -400 Laboratory Tests Past 24 Hrs 09/03/18 09/03/18 09/03/18 07:40 07:40 07:40 WBC 12.6 H RBC 4.94 Hgb 17.3 H Hct 52.9 H MCV 107.1 H MCH 35.0 H MCHC 32.7 RDW 13.6 RDW Differential 52.9 H Plt Count 213 MPV 9.4 Immature Gran % (Auto) 1.000 H Neut % (Auto) 81.1 H Lymph % (Auto) 13.4 L [place] % (Auto) 4.2 Eos % (Auto) 0.1 Baso % (Auto) 0.2 Absolute Neuts (auto) 10.3 H Absolute Lymphs (auto) 1.69 Total Counted Not Reportable PT INR APTT Specimen Type Sample Site pH Bicarbonate Actual POC Total CO2 Base Excess O2 Saturation ABG pCO2 ABG pO2 Gm Test O2 Delivery Device Blood Gas Notified Whom Blood Gas Notified Time Sodium 135 L Potassium 4.3 Chloride 99 Carbon Dioxide 9.0 L* Anion Gap 27 H BUN 17 Creatinine 0.88 Estim Creat Clear Calc 53.53 Est GFR (MDRD) Af Amer 82 Est GFR (MDRD) Non-Af 67 BUN/Creatinine Ratio 19.3 Glucose 129 H Lactic Acid Calcium 8.7 Phosphorus Magnesium Total Bilirubin 0.60 AST 225 H ALT 135 H Alkaline Phosphatase 201 H Total Protein 8.3 H Albumin 4.1 Globulin 4.2 Albumin/Globulin Ratio 1.0 Triglycerides Amylase Lipase 3452 H Folate TSH Urine Color Urine Clarity Urine pH Ur Specific [place] Urine Protein Urine Glucose (UA) Urine Ketones Urine Occult Blood Urine Nitrite Urine Bilirubin Urine Urobilinogen Ur Leukocyte Esterase Urine RBC Urine WBC Ur Squamous Epith Cells Ur Transition Epith Cell Amorphous Sediment Urine Bacteria Hyaline Casts Urine Mucus Ethyl Alcohol 111.0 Acetone Level Double Strand DNA Ab Thyroglobulin Antibody Thyroid Peroxidase Ab MRSA (PCR) 09/03/18 09/03/18 09/03/18 07:40 07:40 08:10 WBC RBC Hgb Hct MCV MCH MCHC RDW RDW Differential Plt Count MPV Immature Gran % (Auto) Neut % (Auto) Lymph % (Auto) [place] % (Auto) Eos % (Auto) Baso % (Auto) Absolute Neuts (auto) Absolute Lymphs (auto) Total Counted PT INR APTT Specimen Type Sample Site pH Bicarbonate Actual POC Total CO2 Base Excess O2 Saturation ABG pCO2 ABG pO2 Gm Test O2 Delivery Device Blood Gas Notified Whom Blood Gas Notified Time Sodium Potassium Chloride Carbon Dioxide Anion Gap BUN Creatinine Estim Creat Clear Calc Est GFR (MDRD) Af Amer Est GFR (MDRD) Non-Af BUN/Creatinine Ratio Glucose Lactic Acid 6.4 H* Calcium Phosphorus Magnesium Total Bilirubin AST ALT Alkaline Phosphatase Total Protein Albumin Globulin Albumin/Globulin Ratio Triglycerides Amylase Lipase Folate TSH 1.09 Urine Color Yellow Urine Clarity Clear Urine pH 5.0 Ur Specific [place] 1.025 Urine Protein 30 H Urine Glucose (UA) Normal Urine Ketones 150 H Urine Occult Blood 10 H Urine Nitrite Negative Urine Bilirubin Negative Urine Urobilinogen Normal Ur Leukocyte Esterase Negative Urine RBC 0 SEEN Urine WBC 0-5 SEEN Ur Squamous Epith Cells 0-5 SEEN Ur Transition Epith Cell 0-5 SEEN Amorphous Sediment 1+ Urine Bacteria 1+ Hyaline Casts 0-5 SEEN Urine Mucus 1+ Ethyl Alcohol Acetone Level Double Strand DNA Ab Thyroglobulin Antibody Thyroid Peroxidase Ab MRSA (PCR) 09/03/18 09/03/18 09/03/18 08:45 09:05 11:50 WBC RBC Hgb Hct MCV MCH MCHC RDW RDW Differential Plt Count MPV Immature Gran % (Auto) Neut % (Auto) Lymph % (Auto) [place] % (Auto) Eos % (Auto) Baso % (Auto) Absolute Neuts (auto) Absolute Lymphs (auto) Total Counted PT INR APTT Specimen Type ART Sample Site R Radial pH 7.05 L* Bicarbonate Actual 4.7 L POC Total CO2 5 Base Excess -26 L O2 Saturation 95 ABG pCO2 17.0 L* ABG pO2 106 H Gm Test POS O2 Delivery Device Room Air Blood Gas Notified Whom ED Blood Gas Notified Time 900 Sodium Potassium Chloride Carbon Dioxide Anion Gap BUN Creatinine Estim Creat Clear Calc Est GFR (MDRD) Af Amer Est GFR (MDRD) Non-Af BUN/Creatinine Ratio Glucose Lactic Acid Calcium Phosphorus Magnesium Total Bilirubin AST ALT Alkaline Phosphatase Total Protein Albumin Globulin Albumin/Globulin Ratio Triglycerides Amylase Lipase Folate TSH Urine Color Urine Clarity Urine pH Ur Specific [place] Urine Protein Urine Glucose (UA) Urine Ketones Urine Occult Blood Urine Nitrite Urine Bilirubin Urine Urobilinogen Ur Leukocyte Esterase Urine RBC Urine WBC Ur Squamous Epith Cells Ur Transition Epith Cell Amorphous Sediment Urine Bacteria Hyaline Casts Urine Mucus Ethyl Alcohol Acetone Level SMALL H Double Strand DNA Ab Thyroglobulin Antibody Thyroid Peroxidase Ab MRSA (PCR) Negative 09/03/18 09/03/18 09/03/18 12:15 12:15 12:15 WBC RBC Hgb Hct MCV MCH MCHC RDW RDW Differential Plt Count MPV Immature Gran % (Auto) Neut % (Auto) Lymph % (Auto) [place] % (Auto) Eos % (Auto) Baso % (Auto) Absolute Neuts (auto) Absolute Lymphs (auto) Total Counted PT 14.7 INR 1.2 APTT 25.1 Specimen Type Sample Site pH Bicarbonate Actual POC Total CO2 Base Excess O2 Saturation ABG pCO2 ABG pO2 Gm Test O2 Delivery Device Blood Gas Notified Whom Blood Gas Notified Time Sodium Potassium Chloride Carbon Dioxide Anion Gap BUN Creatinine Estim Creat Clear Calc Est GFR (MDRD) Af Amer Est GFR (MDRD) Non-Af BUN/Creatinine Ratio Glucose Lactic Acid 2.1 H Calcium Phosphorus 3.5 Magnesium 1.9 Total Bilirubin AST ALT Alkaline Phosphatase Total Protein Albumin Globulin Albumin/Globulin Ratio Triglycerides 276 H Amylase 93 Lipase Folate 18.10 TSH Urine Color Urine Clarity Urine pH Ur Specific [place] Urine Protein Urine Glucose (UA) Urine Ketones Urine Occult Blood Urine Nitrite Urine Bilirubin Urine Urobilinogen Ur Leukocyte Esterase Urine RBC Urine WBC Ur Squamous Epith Cells Ur Transition Epith Cell Amorphous Sediment Urine Bacteria Hyaline Casts Urine Mucus Ethyl Alcohol Acetone Level Double Strand DNA Ab Thyroglobulin Antibody Thyroid Peroxidase Ab MRSA (PCR) 09/03/18 09/03/18 12:55 12:55 WBC RBC Hgb Hct MCV MCH MCHC RDW RDW Differential Plt Count MPV Immature Gran % (Auto) Neut % (Auto) Lymph % (Auto) [place] % (Auto) Eos % (Auto) Baso % (Auto) Absolute Neuts (auto) Absolute Lymphs (auto) Total Counted PT INR APTT Specimen Type Sample Site pH Bicarbonate Actual POC Total CO2 Base Excess O2 Saturation ABG pCO2 ABG pO2 Gm Test O2 Delivery Device Blood Gas Notified Whom Blood Gas Notified Time Sodium Potassium Chloride Carbon Dioxide Anion Gap BUN Creatinine Estim Creat Clear Calc Est GFR (MDRD) Af Amer Est GFR (MDRD) Non-Af BUN/Creatinine Ratio Glucose Lactic Acid Calcium Phosphorus Magnesium Total Bilirubin AST ALT Alkaline Phosphatase Total Protein Albumin Globulin Albumin/Globulin Ratio Triglycerides Amylase Lipase Folate TSH Urine Color Urine Clarity Urine pH Ur Specific [place] Urine Protein Urine Glucose (UA) Urine Ketones Urine Occult Blood Urine Nitrite Urine Bilirubin Urine Urobilinogen Ur Leukocyte Esterase Urine RBC Urine WBC Ur Squamous Epith Cells Ur Transition Epith Cell Amorphous Sediment Urine Bacteria Hyaline Casts Urine Mucus Ethyl Alcohol Acetone Level Double Strand DNA Ab Pending Thyroglobulin Antibody Pending Thyroid Peroxidase Ab Pending MRSA (PCR) POC Glucose 09/03/18 12:39 POC Glucose 178 H Clinical Impression(s) from Imaging Studies Chest X-Ray 09/03/18 07:48 IMPRESSION: Normal x-ray examination of the chest. Electronically Signed: Edison Varela, at 8:28 EDT , Service support , Abdomen/Pelvis CT 09/03/18 09:30 IMPRESSION: Distal common bile duct stone versus chronic pancreatitis. There is no biliary dilatation. Consider ultrasound and/or MRCP for further imaging evaluation. Wall thickening of the distal esophagus with esophagitis versus varices. Hepatomegaly. Electronically Signed: Anil Villatoro MD at 10:54 EDT , Service support , Assessment/Plan All Active Problems Acute recurrent pancreatitis (Acute) Shock, unspecified (Acute) Lactic acidosis (Acute) Alcohol intoxication in active alcoholic with complication (Acute) Alcoholic ketosis (Acute) Metabolic acidosis (Acute) Dehydration (Acute) Abnormal LFTs (Acute) 68-year-old female with pancreatitis 1. Patient likely has alcoholic pancreatitis. Patient has no gallstones on an ultrasound that was done this past January. She had a CT scan which showed no common bile duct dilation but there was a possible stone in the distal common bile duct versus calcification from chronic pancreatitis. Patient is getting an MRCP currently. Given the fact that she has no gallstones in her gallbladder I believe that it is on she has gallstone pancreatitis. I will recheck LFTs in the morning and check MRCP results. Continue n.p.o. until patient's abdominal pain resolves. IV hydration and resuscitation. Telly Alba MD Pager: [facility] [address] [place] [address], [address] [place] [address] Office:
--- NOTE | 2018-09-03 15:31 | CON.PCM_ITS ---
Problem List (1) Acute recurrent pancreatitis Status: Acute Reason for Consult Date of Consultation: 09/03/18 Reason for Consultation: Pancreatitis History of Present Illness: The patient is a 68 year old F here with recurrent pancreatitis. Patient does have alcoholism and history of pancreatitis. Patient is complaining of diffuse abdominal pain but she says it is better than when she first came to the hospital. She was having some nausea and vomiting. She denies any fevers or chills. Past Medical History Past Medical History (Chronic Problems): Chronic Problems Alcohol abuse (Chronic) pt denies but, ETOH is 111 at admission Hypertension (Chronic) Hypothyroidism (Chronic) Anxiety (Chronic) Fibromyalgia (Chronic) Dysphagia (Chronic) Rheumatoid arthritis (Chronic) never confirmed.....RA is negative.....tells me that she has psoriatic arthritis Psoriasis (Chronic) Chronic back pain (Chronic) osteoarthritis Delusional disorder (Chronic) Bipolar disorder (Chronic) Depression with H/o suicidal attempt (Chronic) Allergies nickel [Nickel] Allergy (Verified 09/03/18 07:23) Rash prochlorperazine edisylate [From Compazine] Adverse Reaction (Verified 09/03/18 07:23) disoriented prochlorperazine maleate [From Compazine] Adverse Reaction (Verified 09/03/18 07:23) DISORIENTED Home Medications: Ambulatory Orders Medication Instructions Recorded Atenolol [Tenormin (beta rené)] 100 mg PO DAILY 05/20/17 Levothyroxine [Synthroid] 75 mcg PO DAILY #30 tab 10/23/17 traMADol [Ultram] 50 mg PO TID PRN PRN #20 tab 10/23/17 Surgical History: no surgical history Lives: Alone Smoking Status: Current every day smoker Tobacco Use: Cigarettes Alcohol: Heavy Drugs: - - *Family History Maternal History Items: Unknown, No pertinent history Paternal History Items: Unknown Review of Systems Constitutional: Denies: Chills, Fever HEENT: Denies: Difficulty Swallowing Cardiovascular: Denies: Chest Pain Respiratory: Denies: Cough Gastrointestinal: Reports: Abdominal Pain, Nausea, Vomiting. Denies: Hematemesis, Hematochezia Genitourinary: Denies: Dysuria Skin: Denies: Jaundice Hematologic/ Lymphatic: Denies: Anemia Patient Problems: Active and Suspected Problems Shock, unspecified (Acute) Lactic acidosis (Acute) Alcohol intoxication in active alcoholic with complication (Acute) Alcoholic ketosis (Acute) Metabolic acidosis (Acute) Dehydration (Acute) Abnormal LFTs (Acute) - Physical Exam General: Alert, Oriented x3 HEENT: Atraumatic Neck: Supple Lungs: Normal air movement Cardiovascular: Regular Rhythm, Tachycardic Abdomen: Soft, Non-Distended, Tender - Mild diffuse tenderness with no guarding or rebound Extremities: No clubbing Skin: No rashes Neurological: Cranial nerves II-XII grossly intact Psych/Mental Status: Normal Affect Vital Signs Temp Pulse Resp BP Pulse Ox 98.8 F 102 H 22 H 140/77 H 100 09/03/18 14:00 09/03/18 15:07 09/03/18 15:00 09/03/18 15:00 09/03/18 15:00 Oxygen Delivery Method Room Air Weight: 140 lb 10.479 oz Body Mass Index (BMI) 23.3 Finger Stick Blood Glucose 103 Intake and Output for Last 24 Hours 09/01/18 09/02/18 09/03/18 23:59 23:59 23:59 Output Total 400 / 400 Balance -400 / -400 Laboratory Tests Past 24 Hrs 09/03/18 09/03/18 09/03/18 07:40 07:40 07:40 WBC 12.6 H RBC 4.94 Hgb 17.3 H Hct 52.9 H MCV 107.1 H MCH 35.0 H MCHC 32.7 RDW 13.6 RDW Differential 52.9 H Plt Count 213 MPV 9.4 Immature Gran % (Auto) 1.000 H Neut % (Auto) 81.1 H Lymph % (Auto) 13.4 L [place] % (Auto) 4.2 Eos % (Auto) 0.1 Baso % (Auto) 0.2 Absolute Neuts (auto) 10.3 H Absolute Lymphs (auto) 1.69 Total Counted Not Reportable PT INR APTT Specimen Type Sample Site pH Bicarbonate Actual POC Total CO2 Base Excess O2 Saturation ABG pCO2 ABG pO2 Gm Test O2 Delivery Device Blood Gas Notified Whom Blood Gas Notified Time Sodium 135 L Potassium 4.3 Chloride 99 Carbon Dioxide 9.0 L* Anion Gap 27 H BUN 17 Creatinine 0.88 Estim Creat Clear Calc 53.53 Est GFR (MDRD) Af Amer 82 Est GFR (MDRD) Non-Af 67 BUN/Creatinine Ratio 19.3 Glucose 129 H Lactic Acid Calcium 8.7 Phosphorus Magnesium Total Bilirubin 0.60 AST 225 H ALT 135 H Alkaline Phosphatase 201 H Total Protein 8.3 H Albumin 4.1 Globulin 4.2 Albumin/Globulin Ratio 1.0 Triglycerides Amylase Lipase 3452 H Folate TSH Urine Color Urine Clarity Urine pH Ur Specific [place] Urine Protein Urine Glucose (UA) Urine Ketones Urine Occult Blood Urine Nitrite Urine Bilirubin Urine Urobilinogen Ur Leukocyte Esterase Urine RBC Urine WBC Ur Squamous Epith Cells Ur Transition Epith Cell Amorphous Sediment Urine Bacteria Hyaline Casts Urine Mucus Ethyl Alcohol 111.0 Acetone Level Double Strand DNA Ab Thyroglobulin Antibody Thyroid Peroxidase Ab MRSA (PCR) 09/03/18 09/03/18 09/03/18 07:40 07:40 08:10 WBC RBC Hgb Hct MCV MCH MCHC RDW RDW Differential Plt Count MPV Immature Gran % (Auto) Neut % (Auto) Lymph % (Auto) [place] % (Auto) Eos % (Auto) Baso % (Auto) Absolute Neuts (auto) Absolute Lymphs (auto) Total Counted PT INR APTT Specimen Type Sample Site pH Bicarbonate Actual POC Total CO2 Base Excess O2 Saturation ABG pCO2 ABG pO2 Gm Test O2 Delivery Device Blood Gas Notified Whom Blood Gas Notified Time Sodium Potassium Chloride Carbon Dioxide Anion Gap BUN Creatinine Estim Creat Clear Calc Est GFR (MDRD) Af Amer Est GFR (MDRD) Non-Af BUN/Creatinine Ratio Glucose Lactic Acid 6.4 H* Calcium Phosphorus Magnesium Total Bilirubin AST ALT Alkaline Phosphatase Total Protein Albumin Globulin Albumin/Globulin Ratio Triglycerides Amylase Lipase Folate TSH 1.09 Urine Color Yellow Urine Clarity Clear Urine pH 5.0 Ur Specific [place] 1.025 Urine Protein 30 H Urine Glucose (UA) Normal Urine Ketones 150 H Urine Occult Blood 10 H Urine Nitrite Negative Urine Bilirubin Negative Urine Urobilinogen Normal Ur Leukocyte Esterase Negative Urine RBC 0 SEEN Urine WBC 0-5 SEEN Ur Squamous Epith Cells 0-5 SEEN Ur Transition Epith Cell 0-5 SEEN Amorphous Sediment 1+ Urine Bacteria 1+ Hyaline Casts 0-5 SEEN Urine Mucus 1+ Ethyl Alcohol Acetone Level Double Strand DNA Ab Thyroglobulin Antibody Thyroid Peroxidase Ab MRSA (PCR) 09/03/18 09/03/18 09/03/18 08:45 09:05 11:50 WBC RBC Hgb Hct MCV MCH MCHC RDW RDW Differential Plt Count MPV Immature Gran % (Auto) Neut % (Auto) Lymph % (Auto) [place] % (Auto) Eos % (Auto) Baso % (Auto) Absolute Neuts (auto) Absolute Lymphs (auto) Total Counted PT INR APTT Specimen Type ART Sample Site R Radial pH 7.05 L* Bicarbonate Actual 4.7 L POC Total CO2 5 Base Excess -26 L O2 Saturation 95 ABG pCO2 17.0 L* ABG pO2 106 H Gm Test POS O2 Delivery Device Room Air Blood Gas Notified Whom ED Blood Gas Notified Time 900 Sodium Potassium Chloride Carbon Dioxide Anion Gap BUN Creatinine Estim Creat Clear Calc Est GFR (MDRD) Af Amer Est GFR (MDRD) Non-Af BUN/Creatinine Ratio Glucose Lactic Acid Calcium Phosphorus Magnesium Total Bilirubin AST ALT Alkaline Phosphatase Total Protein Albumin Globulin Albumin/Globulin Ratio Triglycerides Amylase Lipase Folate TSH Urine Color Urine Clarity Urine pH Ur Specific [place] Urine Protein Urine Glucose (UA) Urine Ketones Urine Occult Blood Urine Nitrite Urine Bilirubin Urine Urobilinogen Ur Leukocyte Esterase Urine RBC Urine WBC Ur Squamous Epith Cells Ur Transition Epith Cell Amorphous Sediment Urine Bacteria Hyaline Casts Urine Mucus Ethyl Alcohol Acetone Level SMALL H Double Strand DNA Ab Thyroglobulin Antibody Thyroid Peroxidase Ab MRSA (PCR) Negative 09/03/18 09/03/18 09/03/18 12:15 12:15 12:15 WBC RBC Hgb Hct MCV MCH MCHC RDW RDW Differential Plt Count MPV Immature Gran % (Auto) Neut % (Auto) Lymph % (Auto) [place] % (Auto) Eos % (Auto) Baso % (Auto) Absolute Neuts (auto) Absolute Lymphs (auto) Total Counted PT 14.7 INR 1.2 APTT 25.1 Specimen Type Sample Site pH Bicarbonate Actual POC Total CO2 Base Excess O2 Saturation ABG pCO2 ABG pO2 Gm Test O2 Delivery Device Blood Gas Notified Whom Blood Gas Notified Time Sodium Potassium Chloride Carbon Dioxide Anion Gap BUN Creatinine Estim Creat Clear Calc Est GFR (MDRD) Af Amer Est GFR (MDRD) Non-Af BUN/Creatinine Ratio Glucose Lactic Acid 2.1 H Calcium Phosphorus 3.5 Magnesium 1.9 Total Bilirubin AST ALT Alkaline Phosphatase Total Protein Albumin Globulin Albumin/Globulin Ratio Triglycerides 276 H Amylase 93 Lipase Folate 18.10 TSH Urine Color Urine Clarity Urine pH Ur Specific [place] Urine Protein Urine Glucose (UA) Urine Ketones Urine Occult Blood Urine Nitrite Urine Bilirubin Urine Urobilinogen Ur Leukocyte Esterase Urine RBC Urine WBC Ur Squamous Epith Cells Ur Transition Epith Cell Amorphous Sediment Urine Bacteria Hyaline Casts Urine Mucus Ethyl Alcohol Acetone Level Double Strand DNA Ab Thyroglobulin Antibody Thyroid Peroxidase Ab MRSA (PCR) 09/03/18 09/03/18 12:55 12:55 WBC RBC Hgb Hct MCV MCH MCHC RDW RDW Differential Plt Count MPV Immature Gran % (Auto) Neut % (Auto) Lymph % (Auto) [place] % (Auto) Eos % (Auto) Baso % (Auto) Absolute Neuts (auto) Absolute Lymphs (auto) Total Counted PT INR APTT Specimen Type Sample Site pH Bicarbonate Actual POC Total CO2 Base Excess O2 Saturation ABG pCO2 ABG pO2 Gm Test O2 Delivery Device Blood Gas Notified Whom Blood Gas Notified Time Sodium Potassium Chloride Carbon Dioxide Anion Gap BUN Creatinine Estim Creat Clear Calc Est GFR (MDRD) Af Amer Est GFR (MDRD) Non-Af BUN/Creatinine Ratio Glucose Lactic Acid Calcium Phosphorus Magnesium Total Bilirubin AST ALT Alkaline Phosphatase Total Protein Albumin Globulin Albumin/Globulin Ratio Triglycerides Amylase Lipase Folate TSH Urine Color Urine Clarity Urine pH Ur Specific [place] Urine Protein Urine Glucose (UA) Urine Ketones Urine Occult Blood Urine Nitrite Urine Bilirubin Urine Urobilinogen Ur Leukocyte Esterase Urine RBC Urine WBC Ur Squamous Epith Cells Ur Transition Epith Cell Amorphous Sediment Urine Bacteria Hyaline Casts Urine Mucus Ethyl Alcohol Acetone Level Double Strand DNA Ab Pending Thyroglobulin Antibody Pending Thyroid Peroxidase Ab Pending MRSA (PCR) POC Glucose 09/03/18 12:39 POC Glucose 178 H Clinical Impression(s) from Imaging Studies Chest X-Ray 09/03/18 07:48 IMPRESSION: Normal x-ray examination of the chest. Electronically Signed: Edison Varela, at 8:28 EDT , Service support , Abdomen/Pelvis CT 09/03/18 09:30 IMPRESSION: Distal common bile duct stone versus chronic pancreatitis. There is no biliary dilatation. Consider ultrasound and/or MRCP for further imaging evaluation. Wall thickening of the distal esophagus with esophagitis versus varices. Hepatomegaly. Electronically Signed: Anil Villatoro MD at 10:54 EDT , Service support , Assessment/Plan All Active Problems Acute recurrent pancreatitis (Acute) Shock, unspecified (Acute) Lactic acidosis (Acute) Alcohol intoxication in active alcoholic with complication (Acute) Alcoholic ketosis (Acute) Metabolic acidosis (Acute) Dehydration (Acute) Abnormal LFTs (Acute) 68-year-old female with pancreatitis 1. Patient likely has alcoholic pancreatitis. Patient has no gallstones on an ultrasound that was done this past January. She had a CT scan which showed no common bile duct dilation but there was a possible stone in the distal common bile duct versus calcification from chronic pancreatitis. Patient is getting an MRCP currently. Given the fact that she has no gallstones in her gallbladder I believe that it is on she has gallstone pancreatitis. I will recheck LFTs in the morning and check MRCP results. Continue n.p.o. until patient's abdominal pain resolves. IV hydration and resuscitation. Telly Alba MD Pager: [facility] [address] [place] [address], [address] [place] [address] Office:
[2018-09-03 15:54] LABS: Amphetamine Urine VISTA NEGATIVE (<1000 ng/mL); Barbiturate Urine VISTA NEGATIVE (< 200 ng/mL); Benzodiazepine Urine VISTA NEGATIVE (< 200 ng/mL); Cocaine Urine VISTA NEGATIVE (< 300 ng/mL); Ecstacy Urine VISTA NEGATIVE (< 500 ng/mL); Methadone Urine VISTA NEGATIVE (< 300 ng/mL); PCP Urine VISTA NEGATIVE (< 25 ng/mL); THC Urine VISTA NEGATIVE (< 50 ng/mL); Vista UDS pH Range 5
[2018-09-03 16:25] LABS: Hematocrit 45.1 % (37-47); Hemoglobin 14.6 g/dl (12.0-15.0); Mean Corp Hgb Conc 32.4 g/gl (32-36); Mean Corpuscular Hgb 34.3 pg (27.0-32.0); Mean Corpuscular Volume 105.9 fL (81-99); Mean Platelet Vol. 9.3 fl (6.2-12.0); Platelet Count 160 K/mm3 (150-450); RBC Distribution Width CV 13.6 % (11.6-14.6); RBC Distribution Width SD 52.3 fl (35.1-43.9); Red Blood Count 4.26 M/mm3 (4.2-5.4); Scan Indicated on CBC? Y/N NO; White Blood Count 10.3 K/mm3 (4.4-11.0)
[2018-09-03 16:53] LABS: Anion Gap 18 (5-15); BUN 13 mg/dL (7-18); BUN/Creat Ratio 16.9 RATIO (10-20); Calcium,Total 7.8 mg/dL (8.5-10.1); Chloride 109 mmol/L (98-107); Creatinine, Serum 0.77 mg/dL (0.55-1.02); EST Glomerular Filtration Rate 79 mL/min (>60); Est Glom Filt Rate - Afr Amer 95 mL/min (>60); Glucose 215 mg/dL (74-106); Potassium 5.3 mmol/L (3.5-5.1); Sodium Level 137 mmol/L (136-145)
[2018-09-03 17:30] LABS: Bedside Glucose 215 mg/dL (70-110)
[2018-09-04] VITALS (29 sets, daily range): BP systolic 124–195; BP diastolic 53–135; PULSE 75–96; RESP 15–21; TEMP 36.6–36.9; O2SAT 95–100
[2018-09-04] MEDS: 0.9% NaCl Peripheral Flush Adult/Peds IV ×2 (00:07→05:40)
[2018-09-04] MEDS: Metoprolol Tartrate 5 MG/5 ML Vial IV ×5 (00:07→23:02)
[2018-09-04 00:21] LABS: Bedside Glucose 218 mg/dL (70-110)
[2018-09-04] MEDS: Morphine 2 MG/ML Syringe IV ×5 (00:39→23:28)
[2018-09-04] MEDS: Lactated Ringers 1,000 ML 250 ML IV ×5 (03:04→20:22)
[2018-09-04] MEDS: LORazepam 2 MG/ML Syringe IV (03:08)
[2018-09-04 04:53] LABS: Absolute Lymphocyte Count 0.41 X10^3/ul (0.83-4.51); Basophil# 0.01 X10^3/uL; Basophil% 0.2 % (0-1); Eosinophil# 0.01 X10^3/uL; Eosinophils% 0.2 % (0-5); Hematocrit 39.2 % (37-47); Hemoglobin 12.7 g/dl (12.0-15.0); Lymphocyte # 0.41 X10^3/ul (4.0); Lymphocyte % 6.8 % (19-41); Mean Corp Hgb Conc 32.4 g/gl (32-36); Mean Corpuscular Volume 104.8 fL (81-99); Mean Platelet Vol. 8.8 fl (6.2-12.0); Monocyte# 0.59 X10^3/uL; Monocyte% 9.7 % (0-10); Neutrophil # 5.02 X10^3/uL (2.7-7.7); Neutrophil % 82.6 % (47-70); Platelet Count 133 K/mm3 (150-450); RBC Distribution Width CV 12.9 % (11.6-14.6); Red Blood Count 3.74 M/mm3 (4.2-5.4); White Blood Count 6.1 K/mm3 (4.4-11.0)
[2018-09-04 04:59] LABS: International Normalized Ratio 1.1
[2018-09-04 05:03] LABS: Differential Indicated SCAN CRITERIA MET; POSITIVE COUNT NO; POSITIVE DIFFERENTIAL YES; POSITIVE MORPHOLOGY NO
[2018-09-04 05:35] LABS: AST(SGOT) 67 U/L (15-37); Alanine Aminotransfer ALT/SGPT 65 U/L (13-56); Alkaline Phosphatase 119 U/L (45-117); Anion Gap 11 (5-15); BUN 9 mg/dL (7-18); BUN/Creat Ratio 14.2 RATIO (10-20); Calcium,Total 8.5 mg/dL (8.5-10.1); Chloride 109 mmol/L (98-107); Cholesterol 161 mg/dL (200); Creatinine, Serum 0.64 mg/dL (0.55-1.02); EST Glomerular Filtration Rate 98 mL/min (>60); Est Glom Filt Rate - Afr Amer 119 mL/min (>60); Glucose 167 mg/dL (74-106); High Density Lipoprotein 64 mg/dL; Lipase 1352 U/L (73-393); Magnesium 1.5 mg/dL (1.6-2.6); Potassium 3.8 mmol/L (3.5-5.1); Sodium Level 141 mmol/L (136-145); Triglycerides 211 mg/dL; Very Low Density Lipoprotein 42 mg/dL (5-40)
[2018-09-04 05:51] LABS: Bedside Glucose 170 mg/dL (70-110)
--- NOTE | 2018-09-04 06:25 | PCM.PN.INT ---
Subjective: The patient was seen and examined at the bedside this morning. Events from the last 24 hours have been reviewed. The patient is currently afebrile, hemodynamically stable and maintaining appropriate oxygen saturations on room air. Chemistry profile has improved this morning. Magnesium is low at 1.5. AST and ALT are improving. Lipase is downtrending. The patient continues to report the presence of abdominal pain. MRCP was completed yesterday. Objective: The patient's most recent lab work, culture data and imaging studies have all been personally reviewed. Blood and urine cultures are pending. CT abdomen revealed a possible distal common bile duct stone versus chronic pancreatitis. There was wall thickening in the distal esophagus concerning for esophagitis versus varices. General: Alert, Cooperative, No apparent distress HEENT: Atraumatic, PERRLA, Normocephalic Oral: No Gingival or Mucosal Lesions/ Ulcerations Neck: Supple, No Nodes, Trachea Midline Lungs: No rhonchi, No wheeze, No rales, Diminished Cardiovascular: Regular rate, Regular Rhythm, Normal S1, Normal S2, No murmurs Abdomen: Bowel Sounds Present, Soft, Non Tender Extremities: No clubbing, No cyanosis, No edema Skin: No breakdown Musculoskeletal: No Tenderness to Palpation of Joints or Extremities Lymphatic: No Cervical, Supraclavicular, or Inguinal Adenopathy Neurological: Neuro grossly intact Psych/Mental Status: Restless Vital Signs Temp Pulse Resp BP Pulse Ox 36.9 C 84 17 144/63 H 99 09/04/18 04:00 09/04/18 06:00 09/04/18 06:00 09/04/18 06:00 09/04/18 06:00 Oxygen Delivery Method Room Air Weight: 142 lb 13.753 oz Body Mass Index (BMI) 23.3 Finger Stick Blood Glucose 103 Intake and Output for Last 24 Hours 09/02/18 09/03/18 09/04/18 23:59 23:59 23:59 Intake Total 2563.8 / 2563.8 1272 / 1272 Output Total 1600 / 1600 650 / 650 Balance 963.8 / 963.8 622 / 622 Labs (Last 48 Hours) 09/03/18 09/03/18 09/03/18 07:40 07:40 07:40 WBC 12.6 H RBC 4.94 Hgb 17.3 H Hct 52.9 H MCV 107.1 H MCH 35.0 H MCHC 32.7 RDW 13.6 RDW Differential 52.9 H Plt Count 213 MPV 9.4 Immature Gran % (Auto) 1.000 H Neut % (Auto) 81.1 H Lymph % (Auto) 13.4 L [place] % (Auto) 4.2 Eos % (Auto) 0.1 Baso % (Auto) 0.2 Absolute Neuts (auto) 10.3 H Absolute Lymphs (auto) 1.69 Total Counted Not Reportable PT INR APTT Specimen Type Sample Site pH Bicarbonate Actual POC Total CO2 Base Excess O2 Saturation ABG pCO2 ABG pO2 Gm Test O2 Delivery Device Blood Gas Notified Whom Blood Gas Notified Time Sodium 135 L Potassium 4.3 Chloride 99 Carbon Dioxide 9.0 L* Anion Gap 27 H BUN 17 Creatinine 0.88 Estim Creat Clear Calc 53.53 Est GFR (MDRD) Af Amer 82 Est GFR (MDRD) Non-Af 67 BUN/Creatinine Ratio 19.3 Glucose 129 H Lactic Acid Calcium 8.7 Phosphorus Magnesium Total Bilirubin 0.60 AST 225 H ALT 135 H Alkaline Phosphatase 201 H Total Protein 8.3 H Albumin 4.1 Globulin 4.2 Albumin/Globulin Ratio 1.0 Triglycerides Cholesterol LDL Cholesterol VLDL Cholesterol HDL Cholesterol Amylase Lipase 3452 H Folate TSH Urine Color Urine Clarity Urine pH Ur Specific [place] Urine Protein Urine Glucose (UA) Urine Ketones Urine Occult Blood Urine Nitrite Urine Bilirubin Urine Urobilinogen Ur Leukocyte Esterase Urine RBC Urine WBC Ur Squamous Epith Cells Ur Transition Epith Cell Amorphous Sediment Urine Bacteria Hyaline Casts Urine Mucus Urine Opiates Screen Urine Methadone Screen Ur Barbiturates Screen Ur Phencyclidine Scrn Ur Amphetamines Screen U Methamphetamin-MDMA U Benzodiazepines Scrn Urine Cocaine Screen U Cannabinoids Screen Ur Drug Screen Comment Ethyl Alcohol 111.0 Acetone Level Double Strand DNA Ab Thyroglobulin Antibody Thyroid Peroxidase Ab MRSA (PCR) POC Glucose 09/03/18 09/03/18 09/03/18 07:40 07:40 08:10 WBC RBC Hgb Hct MCV MCH MCHC RDW RDW Differential Plt Count MPV Immature Gran % (Auto) Neut % (Auto) Lymph % (Auto) [place] % (Auto) Eos % (Auto) Baso % (Auto) Absolute Neuts (auto) Absolute Lymphs (auto) Total Counted PT INR APTT Specimen Type Sample Site pH Bicarbonate Actual POC Total CO2 Base Excess O2 Saturation ABG pCO2 ABG pO2 Gm Test O2 Delivery Device Blood Gas Notified Whom Blood Gas Notified Time Sodium Potassium Chloride Carbon Dioxide Anion Gap BUN Creatinine Estim Creat Clear Calc Est GFR (MDRD) Af Amer Est GFR (MDRD) Non-Af BUN/Creatinine Ratio Glucose Lactic Acid 6.4 H* Calcium Phosphorus Magnesium Total Bilirubin AST ALT Alkaline Phosphatase Total Protein Albumin Globulin Albumin/Globulin Ratio Triglycerides Cholesterol LDL Cholesterol VLDL Cholesterol HDL Cholesterol Amylase Lipase Folate TSH 1.09 Urine Color Yellow Urine Clarity Clear Urine pH 5.0 Ur Specific [place] 1.025 Urine Protein 30 H Urine Glucose (UA) Normal Urine Ketones 150 H Urine Occult Blood 10 H Urine Nitrite Negative Urine Bilirubin Negative Urine Urobilinogen Normal Ur Leukocyte Esterase Negative Urine RBC 0 SEEN Urine WBC 0-5 SEEN Ur Squamous Epith Cells 0-5 SEEN Ur Transition Epith Cell 0-5 SEEN Amorphous Sediment 1+ Urine Bacteria 1+ Hyaline Casts 0-5 SEEN Urine Mucus 1+ Urine Opiates Screen Urine Methadone Screen Ur Barbiturates Screen Ur Phencyclidine Scrn Ur Amphetamines Screen U Methamphetamin-MDMA U Benzodiazepines Scrn Urine Cocaine Screen U Cannabinoids Screen Ur Drug Screen Comment Ethyl Alcohol Acetone Level Double Strand DNA Ab Thyroglobulin Antibody Thyroid Peroxidase Ab MRSA (PCR) POC Glucose 09/03/18 09/03/18 09/03/18 08:45 09:05 11:50 WBC RBC Hgb Hct MCV MCH MCHC RDW RDW Differential Plt Count MPV Immature Gran % (Auto) Neut % (Auto) Lymph % (Auto) [place] % (Auto) Eos % (Auto) Baso % (Auto) Absolute Neuts (auto) Absolute Lymphs (auto) Total Counted PT INR APTT Specimen Type ART Sample Site R Radial pH 7.05 L* Bicarbonate Actual 4.7 L POC Total CO2 5 Base Excess -26 L O2 Saturation 95 ABG pCO2 17.0 L* ABG pO2 106 H Gm Test POS O2 Delivery Device Room Air Blood Gas Notified Whom ED Blood Gas Notified Time 900 Sodium Potassium Chloride Carbon Dioxide Anion Gap BUN Creatinine Estim Creat Clear Calc Est GFR (MDRD) Af Amer Est GFR (MDRD) Non-Af BUN/Creatinine Ratio Glucose Lactic Acid Calcium Phosphorus Magnesium Total Bilirubin AST ALT Alkaline Phosphatase Total Protein Albumin Globulin Albumin/Globulin Ratio Triglycerides Cholesterol LDL Cholesterol VLDL Cholesterol HDL Cholesterol Amylase Lipase Folate TSH Urine Color Urine Clarity Urine pH Ur Specific [place] Urine Protein Urine Glucose (UA) Urine Ketones Urine Occult Blood Urine Nitrite Urine Bilirubin Urine Urobilinogen Ur Leukocyte Esterase Urine RBC Urine WBC Ur Squamous Epith Cells Ur Transition Epith Cell Amorphous Sediment Urine Bacteria Hyaline Casts Urine Mucus Urine Opiates Screen Urine Methadone Screen Ur Barbiturates Screen Ur Phencyclidine Scrn Ur Amphetamines Screen U Methamphetamin-MDMA U Benzodiazepines Scrn Urine Cocaine Screen U Cannabinoids Screen Ur Drug Screen Comment Ethyl Alcohol Acetone Level SMALL H Double Strand DNA Ab Thyroglobulin Antibody Thyroid Peroxidase Ab MRSA (PCR) Negative POC Glucose 09/03/18 09/03/18 09/03/18 12:15 12:15 12:15 WBC RBC Hgb Hct MCV MCH MCHC RDW RDW Differential Plt Count MPV Immature Gran % (Auto) Neut % (Auto) Lymph % (Auto) [place] % (Auto) Eos % (Auto) Baso % (Auto) Absolute Neuts (auto) Absolute Lymphs (auto) Total Counted PT 14.7 INR 1.2 APTT 25.1 Specimen Type Sample Site pH Bicarbonate Actual POC Total CO2 Base Excess O2 Saturation ABG pCO2 ABG pO2 Gm Test O2 Delivery Device Blood Gas Notified Whom Blood Gas Notified Time Sodium Potassium Chloride Carbon Dioxide Anion Gap BUN Creatinine Estim Creat Clear Calc Est GFR (MDRD) Af Amer Est GFR (MDRD) Non-Af BUN/Creatinine Ratio Glucose Lactic Acid 2.1 H Calcium Phosphorus 3.5 Magnesium 1.9 Total Bilirubin AST ALT Alkaline Phosphatase Total Protein Albumin Globulin Albumin/Globulin Ratio Triglycerides 276 H Cholesterol LDL Cholesterol VLDL Cholesterol HDL Cholesterol Amylase 93 Lipase Folate 18.10 TSH Urine Color Urine Clarity Urine pH Ur Specific [place] Urine Protein Urine Glucose (UA) Urine Ketones Urine Occult Blood Urine Nitrite Urine Bilirubin Urine Urobilinogen Ur Leukocyte Esterase Urine RBC Urine WBC Ur Squamous Epith Cells Ur Transition Epith Cell Amorphous Sediment Urine Bacteria Hyaline Casts Urine Mucus Urine Opiates Screen Urine Methadone Screen Ur Barbiturates Screen Ur Phencyclidine Scrn Ur Amphetamines Screen U Methamphetamin-MDMA U Benzodiazepines Scrn Urine Cocaine Screen U Cannabinoids Screen Ur Drug Screen Comment Ethyl Alcohol Acetone Level Double Strand DNA Ab Thyroglobulin Antibody Thyroid Peroxidase Ab MRSA (PCR) POC Glucose 09/03/18 09/03/18 09/03/18 12:39 12:55 12:55 WBC RBC Hgb Hct MCV MCH MCHC RDW RDW Differential Plt Count MPV Immature Gran % (Auto) Neut % (Auto) Lymph % (Auto) [place] % (Auto) Eos % (Auto) Baso % (Auto) Absolute Neuts (auto) Absolute Lymphs (auto) Total Counted PT INR APTT Specimen Type Sample Site pH Bicarbonate Actual POC Total CO2 Base Excess O2 Saturation ABG pCO2 ABG pO2 Gm Test O2 Delivery Device Blood Gas Notified Whom Blood Gas Notified Time Sodium Potassium Chloride Carbon Dioxide Anion Gap BUN Creatinine Estim Creat Clear Calc Est GFR (MDRD) Af Amer Est GFR (MDRD) Non-Af BUN/Creatinine Ratio Glucose Lactic Acid Calcium Phosphorus Magnesium Total Bilirubin AST ALT Alkaline Phosphatase Total Protein Albumin Globulin Albumin/Globulin Ratio Triglycerides Cholesterol LDL Cholesterol VLDL Cholesterol HDL Cholesterol Amylase Lipase Folate TSH Urine Color Urine Clarity Urine pH Ur Specific [place] Urine Protein Urine Glucose (UA) Urine Ketones Urine Occult Blood Urine Nitrite Urine Bilirubin Urine Urobilinogen Ur Leukocyte Esterase Urine RBC Urine WBC Ur Squamous Epith Cells Ur Transition Epith Cell Amorphous Sediment Urine Bacteria Hyaline Casts Urine Mucus Urine Opiates Screen Urine Methadone Screen Ur Barbiturates Screen Ur Phencyclidine Scrn Ur Amphetamines Screen U Methamphetamin-MDMA U Benzodiazepines Scrn Urine Cocaine Screen U Cannabinoids Screen Ur Drug Screen Comment Ethyl Alcohol Acetone Level Double Strand DNA Ab Pending Thyroglobulin Antibody Pending Thyroid Peroxidase Ab Pending MRSA (PCR) POC Glucose 178 H 09/03/18 09/03/18 09/03/18 15:25 16:10 16:10 WBC 10.3 RBC 4.26 Hgb 14.6 Hct 45.1 MCV 105.9 H MCH 34.3 H MCHC 32.4 RDW 13.6 RDW Differential 52.3 H Plt Count 160 MPV 9.3 Immature Gran % (Auto) Neut % (Auto) Lymph % (Auto) [place] % (Auto) Eos % (Auto) Baso % (Auto) Absolute Neuts (auto) Absolute Lymphs (auto) Total Counted PT INR APTT Specimen Type Sample Site pH Bicarbonate Actual POC Total CO2 Base Excess O2 Saturation ABG pCO2 ABG pO2 Gm Test O2 Delivery Device Blood Gas Notified Whom Blood Gas Notified Time Sodium 137 Potassium 5.3 H Chloride 109 H Carbon Dioxide 10.0 L Anion Gap 18 H BUN 13 Creatinine 0.77 Estim Creat Clear Calc 47.10 Est GFR (MDRD) Af Amer 95 Est GFR (MDRD) Non-Af 79 BUN/Creatinine Ratio 16.9 Glucose 215 H Lactic Acid Calcium 7.8 L Phosphorus Magnesium Total Bilirubin AST ALT Alkaline Phosphatase Total Protein Albumin Globulin Albumin/Globulin Ratio Triglycerides Cholesterol LDL Cholesterol VLDL Cholesterol HDL Cholesterol Amylase Lipase Folate TSH Urine Color Urine Clarity Urine pH Ur Specific [place] Urine Protein Urine Glucose (UA) Urine Ketones Urine Occult Blood Urine Nitrite Urine Bilirubin Urine Urobilinogen Ur Leukocyte Esterase Urine RBC Urine WBC Ur Squamous Epith Cells Ur Transition Epith Cell Amorphous Sediment Urine Bacteria Hyaline Casts Urine Mucus Urine Opiates Screen POSITIVE H Urine Methadone Screen NEGATIVE Ur [place] Screen NEGATIVE Ur Phencyclidine Scrn NEGATIVE Ur Amphetamines Screen NEGATIVE U Methamphetamin-MDMA NEGATIVE U Benzodiazepines Scrn NEGATIVE Urine Cocaine Screen NEGATIVE U Cannabinoids Screen NEGATIVE Ur Drug Screen Comment Ethyl Alcohol Acetone Level Double Strand DNA Ab Thyroglobulin Antibody Thyroid Peroxidase Ab MRSA (PCR) POC Glucose 09/03/18 09/04/18 09/04/18 17:25 00:05 04:25 WBC 6.1 RBC 3.74 L Hgb 12.7 Hct 39.2 MCV 104.8 H MCH 34.0 H MCHC 32.4 RDW 12.9 RDW Differential 48.0 H Plt Count 133 L MPV 8.8 Immature Gran % (Auto) 0.500 Neut % (Auto) 82.6 H Lymph % (Auto) 6.8 L [place] % (Auto) 9.7 Eos % (Auto) 0.2 Baso % (Auto) 0.2 Absolute Neuts (auto) 5.0 Absolute Lymphs (auto) 0.41 L Total Counted Not Reportable PT INR APTT Specimen Type Sample Site pH Bicarbonate Actual POC Total CO2 Base Excess O2 Saturation ABG pCO2 ABG pO2 Gm Test O2 Delivery Device Blood Gas Notified Whom Blood Gas Notified Time Sodium Potassium Chloride Carbon Dioxide Anion Gap BUN Creatinine Estim Creat Clear Calc Est GFR (MDRD) Af Amer Est GFR (MDRD) Non-Af BUN/Creatinine Ratio Glucose Lactic Acid Calcium Phosphorus Magnesium Total Bilirubin AST ALT Alkaline Phosphatase Total Protein Albumin Globulin Albumin/Globulin Ratio Triglycerides Cholesterol LDL Cholesterol VLDL Cholesterol HDL Cholesterol Amylase Lipase Folate TSH Urine Color Urine Clarity Urine pH Ur Specific [place] Urine Protein Urine Glucose (UA) Urine Ketones Urine Occult Blood Urine Nitrite Urine Bilirubin Urine Urobilinogen Ur Leukocyte Esterase Urine RBC Urine WBC Ur Squamous Epith Cells Ur Transition Epith Cell Amorphous Sediment Urine Bacteria Hyaline Casts Urine Mucus Urine Opiates Screen Urine Methadone Screen Ur [place] Screen Ur Phencyclidine Scrn Ur Amphetamines Screen U Methamphetamin-MDMA U Benzodiazepines Scrn Urine Cocaine Screen U Cannabinoids Screen Ur Drug Screen Comment Ethyl Alcohol Acetone Level Double Strand DNA Ab Thyroglobulin Antibody Thyroid Peroxidase Ab MRSA (PCR) POC Glucose 215 H 218 H 09/04/18 09/04/18 09/04/18 04:25 04:25 05:45 WBC RBC Hgb Hct MCV MCH MCHC RDW RDW Differential Plt Count MPV Immature Gran % (Auto) Neut % (Auto) Lymph % (Auto) [place] % (Auto) Eos % (Auto) Baso % (Auto) Absolute Neuts (auto) Absolute Lymphs (auto) Total Counted PT 14.0 INR 1.1 APTT Specimen Type Sample Site pH Bicarbonate Actual POC Total CO2 Base Excess O2 Saturation ABG pCO2 ABG pO2 Gm Test O2 Delivery Device Blood Gas Notified Whom Blood Gas Notified Time Sodium 141 Potassium 3.8 Chloride 109 H Carbon Dioxide 21.0 Anion Gap 11 BUN 9 Creatinine 0.64 Estim Creat Clear Calc 47.10 Est GFR (MDRD) Af Amer 119 Est GFR (MDRD) Non-Af 98 BUN/Creatinine Ratio 14.2 Glucose 167 H Lactic Acid Calcium 8.5 Phosphorus Magnesium 1.5 L Total Bilirubin 0.80 AST 67 H ALT 65 H Alkaline Phosphatase 119 H Total Protein 6.0 L Albumin 3.0 L Globulin 3.0 Albumin/Globulin Ratio 1.0 Triglycerides 211 H Cholesterol 161 LDL Cholesterol 55 VLDL Cholesterol 42 H HDL Cholesterol 64 Amylase Lipase 1352 H Folate TSH Urine Color Urine Clarity Urine pH Ur Specific [place] Urine Protein Urine Glucose (UA) Urine Ketones Urine Occult Blood Urine Nitrite Urine Bilirubin Urine Urobilinogen Ur Leukocyte Esterase Urine RBC Urine WBC Ur Squamous Epith Cells Ur Transition Epith Cell Amorphous Sediment Urine Bacteria Hyaline Casts Urine Mucus Urine Opiates Screen Urine Methadone Screen Ur [place]bit[place] Screen Ur Phencyclidine Scrn Ur Amphetamines Screen U Methamphetamin-MDMA U Benzodiazepines Scrn Urine Cocaine Screen U Cannabinoids Screen Ur Drug Screen Comment Ethyl Alcohol Acetone Level Double Strand DNA Ab Thyroglobulin Antibody Thyroid Peroxidase Ab MRSA (PCR) POC Glucose 170 H Clinical Impression(s) from Imaging Studies Chest X-Ray 09/03/18 07:48 IMPRESSION: Normal x-ray examination of the chest. Electronically Signed: Edison Varela, at 8:28 EDT , Service support , Abdomen/Pelvis CT 09/03/18 09:30 IMPRESSION: Distal common bile duct stone versus chronic pancreatitis. There is no biliary dilatation. Consider ultrasound and/or MRCP for further imaging evaluation. Wall thickening of the distal esophagus with esophagitis versus varices. Hepatomegaly. Electronically Signed: Anil Villatoro MD at 10:54 EDT , Service support , ADDENDUM: 09/03/18 1121 IMPRESSION: Distal common bile duct stone versus chronic pancreatitis. There is no biliary dilatation. Consider ultrasound and/or MRCP for further imaging evaluation. Wall thickening of the distal esophagus with esophagitis versus varices. Hepatomegaly. N.B. : The above information has been verbally conveyed by Anil Villatoro MD to Kristal Comer302LEYDA Santos, on 09/03/2018 11:14:43 (ET). Electronically Signed: Anil Villatoro MD at 10:54 EDT , Service support , ADDENDUM: 09/03/18 1525 IMPRESSION: Distal common bile duct stone versus chronic pancreatitis. There is no biliary dilatation. Consider ultrasound and/or MRCP for further imaging evaluation. Wall thickening of the distal esophagus with esophagitis versus varices. Hepatomegaly. N.B. : The above information has been verbally conveyed by Anil Villatoro MD to Kristal Comer302LEYDA Santos, on 09/03/2018 11:14:43 (ET). Electronically Signed: Anil Villatoro MD at 10:54 EDT , Service support , Medical Necessity - Tobacco Use Smoking Status: Current every day smoker Tobacco Use: Cigarettes Assessment/Plan All Active Problems Acute recurrent pancreatitis (Acute) Shock, unspecified (Acute) Lactic acidosis (Acute) Alcohol intoxication in active alcoholic with complication (Acute) Alcoholic ketosis (Acute) Metabolic acidosis (Acute) Dehydration (Acute) Abnormal LFTs (Acute) RECOMMENDATIONS: 1. Okay to advance diet from my perspective. 2. Discontinue supplemental IV fluids. 3. Monitor for any signs of alcohol withdrawal. 4. Continue thiamine and folate. 5. Continue PPI therapy as ordered. 6. The patient is medically stable for transfer out of the intensive care unit. IMPRESSIONS: 1. Acute pancreatitis/elevated transaminase levels Most likely secondary to alcoholic pancreatitis. MRCP revealed no evidence of a stone. Liver function and lipase levels are improving. We will plan to advance the patient's diet today and discontinue her supplemental IV fluids. Alcohol cessation is strongly recommended. 2. Anion gap metabolic acidosis Resolved. Likely multifactorial in etiology with lactic acidemia and alcoholic/starvation ketosis contributing. Monitor electrolytes closely over concerns for potential refeeding syndrome. 3. Acute alcohol intoxication/suspected alcohol dependency/chronic tobacco dependency The patient has a suspected long-standing history of alcohol dependency. She will need to be monitored closely for signs of alcohol withdrawal. Continue CIWA protocol. Continue thiamine and folate repletion. Nicotine replacement therapy can be offered to the patient while admitted to the hospital. 4. Acute kidney injury Resolved. Most likely prerenal in etiology. Continue to monitor urine output. No current indication for renal replacement therapy. 5. Bipolar disorder/hypothyroidism/self-reported rheumatoid and psoriatic arthritis Complicates care, management, recovery and prognosis. Okay to continue home medications. This note was generated with [employer] dictation software. It may contain incorrect words, spelling, and punctuation that were not noted in checking the note before signing. DISPOSITION: Given the patient's lack of ongoing ICU or pulmonary needs, will sign off. Please call with any additional questions. Code Visit Inpatient E&M: 64175 Subs Hosp L3
--- NOTE | 2018-09-04 06:28 | PN_ITS ---
Subjective: The patient was seen and examined at the bedside this morning. Events from the last 24 hours have been reviewed. The patient is currently afebrile, hemodynamically stable and maintaining appropriate oxygen saturations on room air. Chemistry profile has improved this morning. Magnesium is low at 1.5. AST and ALT are improving. Lipase is downtrending. The patient continues to report the presence of abdominal pain. MRCP was completed yesterday. Objective: The patient's most recent lab work, culture data and imaging studies have all been personally reviewed. Blood and urine cultures are pending. CT abdomen revealed a possible distal common bile duct stone versus chronic pancreatitis. There was wall thickening in the distal esophagus concerning for esophagitis versus varices. General: Alert, Cooperative, No apparent distress HEENT: Atraumatic, PERRLA, Normocephalic Oral: No Gingival or Mucosal Lesions/ Ulcerations Neck: Supple, No Nodes, Trachea Midline Lungs: No rhonchi, No wheeze, No rales, Diminished Cardiovascular: Regular rate, Regular Rhythm, Normal S1, Normal S2, No murmurs Abdomen: Bowel Sounds Present, Soft, Non Tender Extremities: No clubbing, No cyanosis, No edema Skin: No breakdown Musculoskeletal: No Tenderness to Palpation of Joints or Extremities Lymphatic: No Cervical, Supraclavicular, or Inguinal Adenopathy Neurological: Neuro grossly intact Psych/Mental Status: Restless Vital Signs Temp Pulse Resp BP Pulse Ox 36.9 C 84 17 144/63 H 99 09/04/18 04:00 09/04/18 06:00 09/04/18 06:00 09/04/18 06:00 09/04/18 06:00 Oxygen Delivery Method Room Air Weight: 142 lb 13.753 oz Body Mass Index (BMI) 23.3 Finger Stick Blood Glucose 103 Intake and Output for Last 24 Hours 09/02/18 09/03/18 09/04/18 23:59 23:59 23:59 Intake Total 2563.8 / 2563.8 1272 / 1272 Output Total 1600 / 1600 650 / 650 Balance 963.8 / 963.8 622 / 622 Labs (Last 48 Hours) 09/03/18 09/03/18 09/03/18 07:40 07:40 07:40 WBC 12.6 H RBC 4.94 Hgb 17.3 H Hct 52.9 H MCV 107.1 H MCH 35.0 H MCHC 32.7 RDW 13.6 RDW Differential 52.9 H Plt Count 213 MPV 9.4 Immature Gran % (Auto) 1.000 H Neut % (Auto) 81.1 H Lymph % (Auto) 13.4 L [place] % (Auto) 4.2 Eos % (Auto) 0.1 Baso % (Auto) 0.2 Absolute Neuts (auto) 10.3 H Absolute Lymphs (auto) 1.69 Total Counted Not Reportable PT INR APTT Specimen Type Sample Site pH Bicarbonate Actual POC Total CO2 Base Excess O2 Saturation ABG pCO2 ABG pO2 Gm Test O2 Delivery Device Blood Gas Notified Whom Blood Gas Notified Time Sodium 135 L Potassium 4.3 Chloride 99 Carbon Dioxide 9.0 L* Anion Gap 27 H BUN 17 Creatinine 0.88 Estim Creat Clear Calc 53.53 Est GFR (MDRD) Af Amer 82 Est GFR (MDRD) Non-Af 67 BUN/Creatinine Ratio 19.3 Glucose 129 H Lactic Acid Calcium 8.7 Phosphorus Magnesium Total Bilirubin 0.60 AST 225 H ALT 135 H Alkaline Phosphatase 201 H Total Protein 8.3 H Albumin 4.1 Globulin 4.2 Albumin/Globulin Ratio 1.0 Triglycerides Cholesterol LDL Cholesterol VLDL Cholesterol HDL Cholesterol Amylase Lipase 3452 H Folate TSH Urine Color Urine Clarity Urine pH Ur Specific [place] Urine Protein Urine Glucose (UA) Urine Ketones Urine Occult Blood Urine Nitrite Urine Bilirubin Urine Urobilinogen Ur Leukocyte Esterase Urine RBC Urine WBC Ur Squamous Epith Cells Ur Transition Epith Cell Amorphous Sediment Urine Bacteria Hyaline Casts Urine Mucus Urine Opiates Screen Urine Methadone Screen Ur Barbiturates Screen Ur Phencyclidine Scrn Ur Amphetamines Screen U Methamphetamin-MDMA U Benzodiazepines Scrn Urine Cocaine Screen U Cannabinoids Screen Ur Drug Screen Comment Ethyl Alcohol 111.0 Acetone Level Double Strand DNA Ab Thyroglobulin Antibody Thyroid Peroxidase Ab MRSA (PCR) POC Glucose 09/03/18 09/03/18 09/03/18 07:40 07:40 08:10 WBC RBC Hgb Hct MCV MCH MCHC RDW RDW Differential Plt Count MPV Immature Gran % (Auto) Neut % (Auto) Lymph % (Auto) [place] % (Auto) Eos % (Auto) Baso % (Auto) Absolute Neuts (auto) Absolute Lymphs (auto) Total Counted PT INR APTT Specimen Type Sample Site pH Bicarbonate Actual POC Total CO2 Base Excess O2 Saturation ABG pCO2 ABG pO2 Gm Test O2 Delivery Device Blood Gas Notified Whom Blood Gas Notified Time Sodium Potassium Chloride Carbon Dioxide Anion Gap BUN Creatinine Estim Creat Clear Calc Est GFR (MDRD) Af Amer Est GFR (MDRD) Non-Af BUN/Creatinine Ratio Glucose Lactic Acid 6.4 H* Calcium Phosphorus Magnesium Total Bilirubin AST ALT Alkaline Phosphatase Total Protein Albumin Globulin Albumin/Globulin Ratio Triglycerides Cholesterol LDL Cholesterol VLDL Cholesterol HDL Cholesterol Amylase Lipase Folate TSH 1.09 Urine Color Yellow Urine Clarity Clear Urine pH 5.0 Ur Specific [place] 1.025 Urine Protein 30 H Urine Glucose (UA) Normal Urine Ketones 150 H Urine Occult Blood 10 H Urine Nitrite Negative Urine Bilirubin Negative Urine Urobilinogen Normal Ur Leukocyte Esterase Negative Urine RBC 0 SEEN Urine WBC 0-5 SEEN Ur Squamous Epith Cells 0-5 SEEN Ur Transition Epith Cell 0-5 SEEN Amorphous Sediment 1+ Urine Bacteria 1+ Hyaline Casts 0-5 SEEN Urine Mucus 1+ Urine Opiates Screen Urine Methadone Screen Ur Barbiturates Screen Ur Phencyclidine Scrn Ur Amphetamines Screen U Methamphetamin-MDMA U Benzodiazepines Scrn Urine Cocaine Screen U Cannabinoids Screen Ur Drug Screen Comment Ethyl Alcohol Acetone Level Double Strand DNA Ab Thyroglobulin Antibody Thyroid Peroxidase Ab MRSA (PCR) POC Glucose 09/03/18 09/03/18 09/03/18 08:45 09:05 11:50 WBC RBC Hgb Hct MCV MCH MCHC RDW RDW Differential Plt Count MPV Immature Gran % (Auto) Neut % (Auto) Lymph % (Auto) [place] % (Auto) Eos % (Auto) Baso % (Auto) Absolute Neuts (auto) Absolute Lymphs (auto) Total Counted PT INR APTT Specimen Type ART Sample Site R Radial pH 7.05 L* Bicarbonate Actual 4.7 L POC Total CO2 5 Base Excess -26 L O2 Saturation 95 ABG pCO2 17.0 L* ABG pO2 106 H Gm Test POS O2 Delivery Device Room Air Blood Gas Notified Whom ED Blood Gas Notified Time 900 Sodium Potassium Chloride Carbon Dioxide Anion Gap BUN Creatinine Estim Creat Clear Calc Est GFR (MDRD) Af Amer Est GFR (MDRD) Non-Af BUN/Creatinine Ratio Glucose Lactic Acid Calcium Phosphorus Magnesium Total Bilirubin AST ALT Alkaline Phosphatase Total Protein Albumin Globulin Albumin/Globulin Ratio Triglycerides Cholesterol LDL Cholesterol VLDL Cholesterol HDL Cholesterol Amylase Lipase Folate TSH Urine Color Urine Clarity Urine pH Ur Specific [place] Urine Protein Urine Glucose (UA) Urine Ketones Urine Occult Blood Urine Nitrite Urine Bilirubin Urine Urobilinogen Ur Leukocyte Esterase Urine RBC Urine WBC Ur Squamous Epith Cells Ur Transition Epith Cell Amorphous Sediment Urine Bacteria Hyaline Casts Urine Mucus Urine Opiates Screen Urine Methadone Screen Ur Barbiturates Screen Ur Phencyclidine Scrn Ur Amphetamines Screen U Methamphetamin-MDMA U Benzodiazepines Scrn Urine Cocaine Screen U Cannabinoids Screen Ur Drug Screen Comment Ethyl Alcohol Acetone Level SMALL H Double Strand DNA Ab Thyroglobulin Antibody Thyroid Peroxidase Ab MRSA (PCR) Negative POC Glucose 09/03/18 09/03/18 09/03/18 12:15 12:15 12:15 WBC RBC Hgb Hct MCV MCH MCHC RDW RDW Differential Plt Count MPV Immature Gran % (Auto) Neut % (Auto) Lymph % (Auto) [place] % (Auto) Eos % (Auto) Baso % (Auto) Absolute Neuts (auto) Absolute Lymphs (auto) Total Counted PT 14.7 INR 1.2 APTT 25.1 Specimen Type Sample Site pH Bicarbonate Actual POC Total CO2 Base Excess O2 Saturation ABG pCO2 ABG pO2 Gm Test O2 Delivery Device Blood Gas Notified Whom Blood Gas Notified Time Sodium Potassium Chloride Carbon Dioxide Anion Gap BUN Creatinine Estim Creat Clear Calc Est GFR (MDRD) Af Amer Est GFR (MDRD) Non-Af BUN/Creatinine Ratio Glucose Lactic Acid 2.1 H Calcium Phosphorus 3.5 Magnesium 1.9 Total Bilirubin AST ALT Alkaline Phosphatase Total Protein Albumin Globulin Albumin/Globulin Ratio Triglycerides 276 H Cholesterol LDL Cholesterol VLDL Cholesterol HDL Cholesterol Amylase 93 Lipase Folate 18.10 TSH Urine Color Urine Clarity Urine pH Ur Specific [place] Urine Protein Urine Glucose (UA) Urine Ketones Urine Occult Blood Urine Nitrite Urine Bilirubin Urine Urobilinogen Ur Leukocyte Esterase Urine RBC Urine WBC Ur Squamous Epith Cells Ur Transition Epith Cell Amorphous Sediment Urine Bacteria Hyaline Casts Urine Mucus Urine Opiates Screen Urine Methadone Screen Ur Barbiturates Screen Ur Phencyclidine Scrn Ur Amphetamines Screen U Methamphetamin-MDMA U Benzodiazepines Scrn Urine Cocaine Screen U Cannabinoids Screen Ur Drug Screen Comment Ethyl Alcohol Acetone Level Double Strand DNA Ab Thyroglobulin Antibody Thyroid Peroxidase Ab MRSA (PCR) POC Glucose 09/03/18 09/03/18 09/03/18 12:39 12:55 12:55 WBC RBC Hgb Hct MCV MCH MCHC RDW RDW Differential Plt Count MPV Immature Gran % (Auto) Neut % (Auto) Lymph % (Auto) [place] % (Auto) Eos % (Auto) Baso % (Auto) Absolute Neuts (auto) Absolute Lymphs (auto) Total Counted PT INR APTT Specimen Type Sample Site pH Bicarbonate Actual POC Total CO2 Base Excess O2 Saturation ABG pCO2 ABG pO2 Gm Test O2 Delivery Device Blood Gas Notified Whom Blood Gas Notified Time Sodium Potassium Chloride Carbon Dioxide Anion Gap BUN Creatinine Estim Creat Clear Calc Est GFR (MDRD) Af Amer Est GFR (MDRD) Non-Af BUN/Creatinine Ratio Glucose Lactic Acid Calcium Phosphorus Magnesium Total Bilirubin AST ALT Alkaline Phosphatase Total Protein Albumin Globulin Albumin/Globulin Ratio Triglycerides Cholesterol LDL Cholesterol VLDL Cholesterol HDL Cholesterol Amylase Lipase Folate TSH Urine Color Urine Clarity Urine pH Ur Specific [place] Urine Protein Urine Glucose (UA) Urine Ketones Urine Occult Blood Urine Nitrite Urine Bilirubin Urine Urobilinogen Ur Leukocyte Esterase Urine RBC Urine WBC Ur Squamous Epith Cells Ur Transition Epith Cell Amorphous Sediment Urine Bacteria Hyaline Casts Urine Mucus Urine Opiates Screen Urine Methadone Screen Ur Barbiturates Screen Ur Phencyclidine Scrn Ur Amphetamines Screen U Methamphetamin-MDMA U Benzodiazepines Scrn Urine Cocaine Screen U Cannabinoids Screen Ur Drug Screen Comment Ethyl Alcohol Acetone Level Double Strand DNA Ab Pending Thyroglobulin Antibody Pending Thyroid Peroxidase Ab Pending MRSA (PCR) POC Glucose 178 H 09/03/18 09/03/18 09/03/18 15:25 16:10 16:10 WBC 10.3 RBC 4.26 Hgb 14.6 Hct 45.1 MCV 105.9 H MCH 34.3 H MCHC 32.4 RDW 13.6 RDW Differential 52.3 H Plt Count 160 MPV 9.3 Immature Gran % (Auto) Neut % (Auto) Lymph % (Auto) [place] % (Auto) Eos % (Auto) Baso % (Auto) Absolute Neuts (auto) Absolute Lymphs (auto) Total Counted PT INR APTT Specimen Type Sample Site pH Bicarbonate Actual POC Total CO2 Base Excess O2 Saturation ABG pCO2 ABG pO2 Gm Test O2 Delivery Device Blood Gas Notified Whom Blood Gas Notified Time Sodium 137 Potassium 5.3 H Chloride 109 H Carbon Dioxide 10.0 L Anion Gap 18 H BUN 13 Creatinine 0.77 Estim Creat Clear Calc 47.10 Est GFR (MDRD) Af Amer 95 Est GFR (MDRD) Non-Af 79 BUN/Creatinine Ratio 16.9 Glucose 215 H Lactic Acid Calcium 7.8 L Phosphorus Magnesium Total Bilirubin AST ALT Alkaline Phosphatase Total Protein Albumin Globulin Albumin/Globulin Ratio Triglycerides Cholesterol LDL Cholesterol VLDL Cholesterol HDL Cholesterol Amylase Lipase Folate TSH Urine Color Urine Clarity Urine pH Ur Specific [place] Urine Protein Urine Glucose (UA) Urine Ketones Urine Occult Blood Urine Nitrite Urine Bilirubin Urine Urobilinogen Ur Leukocyte Esterase Urine RBC Urine WBC Ur Squamous Epith Cells Ur Transition Epith Cell Amorphous Sediment Urine Bacteria Hyaline Casts Urine Mucus Urine Opiates Screen POSITIVE H Urine Methadone Screen NEGATIVE Ur Barbiturates Screen NEGATIVE Ur Phencyclidine Scrn NEGATIVE Ur Amphetamines Screen NEGATIVE U Methamphetamin-MDMA NEGATIVE U Benzodiazepines Scrn NEGATIVE Urine Cocaine Screen NEGATIVE U Cannabinoids Screen NEGATIVE Ur Drug Screen Comment Ethyl Alcohol Acetone Level Double Strand DNA Ab Thyroglobulin Antibody Thyroid Peroxidase Ab MRSA (PCR) POC Glucose 09/03/18 09/04/18 09/04/18 17:25 00:05 04:25 WBC 6.1 RBC 3.74 L Hgb 12.7 Hct 39.2 MCV 104.8 H MCH 34.0 H MCHC 32.4 RDW 12.9 RDW Differential 48.0 H Plt Count 133 L MPV 8.8 Immature Gran % (Auto) 0.500 Neut % (Auto) 82.6 H Lymph % (Auto) 6.8 L [place] % (Auto) 9.7 Eos % (Auto) 0.2 Baso % (Auto) 0.2 Absolute Neuts (auto) 5.0 Absolute Lymphs (auto) 0.41 L Total Counted Not Reportable PT INR APTT Specimen Type Sample Site pH Bicarbonate Actual POC Total CO2 Base Excess O2 Saturation ABG pCO2 ABG pO2 Gm Test O2 Delivery Device Blood Gas Notified Whom Blood Gas Notified Time Sodium Potassium Chloride Carbon Dioxide Anion Gap BUN Creatinine Estim Creat Clear Calc Est GFR (MDRD) Af Amer Est GFR (MDRD) Non-Af BUN/Creatinine Ratio Glucose Lactic Acid Calcium Phosphorus Magnesium Total Bilirubin AST ALT Alkaline Phosphatase Total Protein Albumin Globulin Albumin/Globulin Ratio Triglycerides Cholesterol LDL Cholesterol VLDL Cholesterol HDL Cholesterol Amylase Lipase Folate TSH Urine Color Urine Clarity Urine pH Ur Specific [place] Urine Protein Urine Glucose (UA) Urine Ketones Urine Occult Blood Urine Nitrite Urine Bilirubin Urine Urobilinogen Ur Leukocyte Esterase Urine RBC Urine WBC Ur Squamous Epith Cells Ur Transition Epith Cell Amorphous Sediment Urine Bacteria Hyaline Casts Urine Mucus Urine Opiates Screen Urine Methadone Screen Ur Barbiturates Screen Ur Phencyclidine Scrn Ur Amphetamines Screen U Methamphetamin-MDMA U Benzodiazepines Scrn Urine Cocaine Screen U Cannabinoids Screen Ur Drug Screen Comment Ethyl Alcohol Acetone Level Double Strand DNA Ab Thyroglobulin Antibody Thyroid Peroxidase Ab MRSA (PCR) POC Glucose 215 H 218 H 09/04/18 09/04/18 09/04/18 04:25 04:25 05:45 WBC RBC Hgb Hct MCV MCH MCHC RDW RDW Differential Plt Count MPV Immature Gran % (Auto) Neut % (Auto) Lymph % (Auto) [place] % (Auto) Eos % (Auto) Baso % (Auto) Absolute Neuts (auto) Absolute Lymphs (auto) Total Counted PT 14.0 INR 1.1 APTT Specimen Type Sample Site pH Bicarbonate Actual POC Total CO2 Base Excess O2 Saturation ABG pCO2 ABG pO2 Gm Test O2 Delivery Device Blood Gas Notified Whom Blood Gas Notified Time Sodium 141 Potassium 3.8 Chloride 109 H Carbon Dioxide 21.0 Anion Gap 11 BUN 9 Creatinine 0.64 Estim Creat Clear Calc 47.10 Est GFR (MDRD) Af Amer 119 Est GFR (MDRD) Non-Af 98 BUN/Creatinine Ratio 14.2 Glucose 167 H Lactic Acid Calcium 8.5 Phosphorus Magnesium 1.5 L Total Bilirubin 0.80 AST 67 H ALT 65 H Alkaline Phosphatase 119 H Total Protein 6.0 L Albumin 3.0 L Globulin 3.0 Albumin/Globulin Ratio 1.0 Triglycerides 211 H Cholesterol 161 LDL Cholesterol 55 VLDL Cholesterol 42 H HDL Cholesterol 64 Amylase Lipase 1352 H Folate TSH Urine Color Urine Clarity Urine pH Ur Specific [place] Urine Protein Urine Glucose (UA) Urine Ketones Urine Occult Blood Urine Nitrite Urine Bilirubin Urine Urobilinogen Ur Leukocyte Esterase Urine RBC Urine WBC Ur Squamous Epith Cells Ur Transition Epith Cell Amorphous Sediment Urine Bacteria Hyaline Casts Urine Mucus Urine Opiates Screen Urine Methadone Screen Ur Barbiturates Screen Ur Phencyclidine Scrn Ur Amphetamines Screen U Methamphetamin-MDMA U Benzodiazepines Scrn Urine Cocaine Screen U Cannabinoids Screen Ur Drug Screen Comment Ethyl Alcohol Acetone Level Double Strand DNA Ab Thyroglobulin Antibody Thyroid Peroxidase Ab MRSA (PCR) POC Glucose 170 H Clinical Impression(s) from Imaging Studies Chest X-Ray 09/03/18 07:48 IMPRESSION: Normal x-ray examination of the chest. Electronically Signed: Edison Varela, at 8:28 EDT , Service support , Abdomen/Pelvis CT 09/03/18 09:30 IMPRESSION: Distal common bile duct stone versus chronic pancreatitis. There is no biliary dilatation. Consider ultrasound and/or MRCP for further imaging evaluation. Wall thickening of the distal esophagus with esophagitis versus varices. Hepatomegaly. Electronically Signed: Anil Villatoro MD at 10:54 EDT , Service support , ADDENDUM: 09/03/18 1121 IMPRESSION: Distal common bile duct stone versus chronic pancreatitis. There is no biliary dilatation. Consider ultrasound and/or MRCP for further imaging evaluation. Wall thickening of the distal esophagus with esophagitis versus varices. Hepatomegaly. N.B. : The above information has been verbally conveyed by Anil Villatoro MD to Kristal Comer302LEYDA Santos, on 09/03/2018 11:14:43 (ET). Electronically Signed: Anil Villatoro MD at 10:54 EDT , Service support , ADDENDUM: 09/03/18 1525 IMPRESSION: Distal common bile duct stone versus chronic pancreatitis. There is no biliary dilatation. Consider ultrasound and/or MRCP for further imaging evaluation. Wall thickening of the distal esophagus with esophagitis versus varices. Hepatomegaly. N.B. : The above information has been verbally conveyed by Anil Villatoro MD to Kristal Comer302LEYDA Santos, on 09/03/2018 11:14:43 (ET). Electronically Signed: Anil Villatoro MD at 10:54 EDT , Service support , Medical Necessity - Tobacco Use Smoking Status: Current every day smoker Tobacco Use: Cigarettes Assessment/Plan All Active Problems Acute recurrent pancreatitis (Acute) Shock, unspecified (Acute) Lactic acidosis (Acute) Alcohol intoxication in active alcoholic with complication (Acute) Alcoholic ketosis (Acute) Metabolic acidosis (Acute) Dehydration (Acute) Abnormal LFTs (Acute) RECOMMENDATIONS: 1. Okay to advance diet from my perspective. 2. Discontinue supplemental IV fluids. 3. Monitor for any signs of alcohol withdrawal. 4. Continue thiamine and folate. 5. Continue PPI therapy as ordered. 6. The patient is medically stable for transfer out of the intensive care unit. IMPRESSIONS: 1. Acute pancreatitis/elevated transaminase levels Most likely secondary to alcoholic pancreatitis. MRCP revealed no evidence of a stone. Liver function and lipase levels are improving. We will plan to advance the patient's diet today and discontinue her supplemental IV fluids. Alcohol cessation is strongly recommended. 2. Anion gap metabolic acidosis Resolved. Likely multifactorial in etiology with lactic acidemia and alcoholic/starvation ketosis contributing. Monitor electrolytes closely over concerns for potential refeeding syndrome. 3. Acute alcohol intoxication/suspected alcohol dependency/chronic tobacco d ependency The patient has a suspected long-standing history of alcohol dependency. She will need to be monitored closely for signs of alcohol withdrawal. Continue CIWA protocol. Continue thiamine and folate repletion. Nicotine replacement therapy can be offered to the patient while admitted to the hospital. 4. Acute kidney injury Resolved. Most likely prerenal in etiology. Continue to monitor urine output. No current indication for renal replacement therapy. 5. Bipolar disorder/hypothyroidism/self-reported rheumatoid and psoriatic a rthritis Complicates care, management, recovery and prognosis. Okay to continue home medications. This note was generated with [employer] dictation software. It may contain incorrect words, spelling, and punctuation that were not noted in checking the note before signing. DISPOSITION: Given the patient's lack of ongoing ICU or pulmonary needs, will sign off. Please call with any additional questions. Code Visit Inpatient E&M: [id number] [facility] L3
--- NOTE | 2018-09-04 07:38 | PN.SURG_ITS ---
Patient Problems: Active and Suspected Problems Shock, unspecified (Acute) Lactic acidosis (Acute) Alcohol intoxication in active alcoholic with complication (Acute) Alcoholic ketosis (Acute) Metabolic acidosis (Acute) Dehydration (Acute) Abnormal LFTs (Acute) Subjective: Patient had no nausea or vomiting overnight. She is not complaining of any abdominal pain this morning. - Physical Exam General: Alert, Cooperative Neck: No JVD Lungs: Normal air movement Abdomen: Soft, Non Tender, Non-Distended Vital Signs Temp Pulse Resp BP Pulse Ox 98.5 F 84 17 144/63 H 99 09/04/18 04:00 09/04/18 06:00 09/04/18 06:00 09/04/18 06:00 09/04/18 06:00 Oxygen Delivery Method Room Air Weight: 142 lb 13.753 oz Body Mass Index (BMI) 23.3 Finger Stick Blood Glucose 103 Intake and Output for Last 24 Hours 09/02/18 09/03/18 09/04/18 23:59 23:59 23:59 Intake Total 2563.8 / 2563.8 1272 / 1272 Output Total 1600 / 1600 650 / 650 Balance 963.8 / 963.8 622 / 622 Laboratory Tests Past 24 Hrs 09/03/18 09/03/18 09/03/18 07:40 07:40 07:40 WBC 12.6 H RBC 4.94 Hgb 17.3 H Hct 52.9 H MCV 107.1 H MCH 35.0 H MCHC 32.7 RDW 13.6 RDW Differential 52.9 H Plt Count 213 MPV 9.4 Immature Gran % (Auto) 1.000 H Neut % (Auto) 81.1 H Lymph % (Auto) 13.4 L [place] % (Auto) 4.2 Eos % (Auto) 0.1 Baso % (Auto) 0.2 Absolute Neuts (auto) 10.3 H Absolute Lymphs (auto) 1.69 Total Counted Not Reportable PT INR APTT Specimen Type Sample Site pH Bicarbonate Actual POC Total CO2 Base Excess O2 Saturation ABG pCO2 ABG pO2 Gm Test O2 Delivery Device Blood Gas Notified Whom Blood Gas Notified Time Sodium 135 L Potassium 4.3 Chloride 99 Carbon Dioxide 9.0 L* Anion Gap 27 H BUN 17 Creatinine 0.88 Estim Creat Clear Calc 53.53 Est GFR (MDRD) Af Amer 82 Est GFR (MDRD) Non-Af 67 BUN/Creatinine Ratio 19.3 Glucose 129 H Lactic Acid Calcium 8.7 Phosphorus Magnesium Total Bilirubin 0.60 AST 225 H ALT 135 H Alkaline Phosphatase 201 H Total Protein 8.3 H Albumin 4.1 Globulin 4.2 Albumin/Globulin Ratio 1.0 Triglycerides Cholesterol LDL Cholesterol VLDL Cholesterol HDL Cholesterol Amylase Lipase 3452 H Folate TSH Urine Color Urine Clarity Urine pH Ur Specific [place] Urine Protein Urine Glucose (UA) Urine Ketones Urine Occult Blood Urine Nitrite Urine Bilirubin Urine Urobilinogen Ur Leukocyte Esterase Urine RBC Urine WBC Ur Squamous Epith Cells Ur Transition Epith Cell Amorphous Sediment Urine Bacteria Hyaline Casts Urine Mucus Urine Opiates Screen Urine Methadone Screen Ur Barbiturates Screen Ur Phencyclidine Scrn Ur Amphetamines Screen U Methamphetamin-MDMA U Benzodiazepines Scrn Urine Cocaine Screen U Cannabinoids Screen Ur Drug Screen Comment Ethyl Alcohol 111.0 Acetone Level Double Strand DNA Ab Thyroglobulin Antibody Thyroid Peroxidase Ab MRSA (PCR) 09/03/18 09/03/18 09/03/18 07:40 07:40 08:10 WBC RBC Hgb Hct MCV MCH MCHC RDW RDW Differential Plt Count MPV Immature Gran % (Auto) Neut % (Auto) Lymph % (Auto) [place] % (Auto) Eos % (Auto) Baso % (Auto) Absolute Neuts (auto) Absolute Lymphs (auto) Total Counted PT INR APTT Specimen Type Sample Site pH Bicarbonate Actual POC Total CO2 Base Excess O2 Saturation ABG pCO2 ABG pO2 Gm Test O2 Delivery Device Blood Gas Notified Whom Blood Gas Notified Time Sodium Potassium Chloride Carbon Dioxide Anion Gap BUN Creatinine Estim Creat Clear Calc Est GFR (MDRD) Af Amer Est GFR (MDRD) Non-Af BUN/Creatinine Ratio Glucose Lactic Acid 6.4 H* Calcium Phosphorus Magnesium Total Bilirubin AST ALT Alkaline Phosphatase Total Protein Albumin Globulin Albumin/Globulin Ratio Triglycerides Cholesterol LDL Cholesterol VLDL Cholesterol HDL Cholesterol Amylase Lipase Folate TSH 1.09 Urine Color Yellow Urine Clarity Clear Urine pH 5.0 Ur Specific [place]es 1.025 Urine Protein 30 H Urine Glucose (UA) Normal Urine Ketones 150 H Urine Occult Blood 10 H Urine Nitrite Negative Urine Bilirubin Negative Urine Urobilinogen Normal Ur Leukocyte Esterase Negative Urine RBC 0 SEEN Urine WBC 0-5 SEEN Ur Squamous Epith Cells 0-5 SEEN Ur Transition Epith Cell 0-5 SEEN Amorphous Sediment 1+ Urine Bacteria 1+ Hyaline Casts 0-5 SEEN Urine Mucus 1+ Urine Opiates Screen Urine Methadone Screen Ur Barbiturates Screen Ur Phencyclidine Scrn Ur Amphetamines Screen U Methamphetamin-MDMA U Benzodiazepines Scrn Urine Cocaine Screen U Cannabinoids Screen Ur Drug Screen Comment Ethyl Alcohol Acetone Level Double Strand DNA Ab Thyroglobulin Antibody Thyroid Peroxidase Ab MRSA (PCR) 09/03/18 09/03/18 09/03/18 08:45 09:05 11:50 WBC RBC Hgb Hct MCV MCH MCHC RDW RDW Differential Plt Count MPV Immature Gran % (Auto) Neut % (Auto) Lymph % (Auto) [place] % (Auto) Eos % (Auto) Baso % (Auto) Absolute Neuts (auto) Absolute Lymphs (auto) Total Counted PT INR APTT Specimen Type ART Sample Site R Radial pH 7.05 L* Bicarbonate Actual 4.7 L POC Total CO2 5 Base Excess -26 L O2 Saturation 95 ABG pCO2 17.0 L* ABG pO2 106 H Gm Test POS O2 Delivery Device Room Air Blood Gas Notified Whom ED Blood Gas Notified Time 900 Sodium Potassium Chloride Carbon Dioxide Anion Gap BUN Creatinine Estim Creat Clear Calc Est GFR (MDRD) Af Amer Est GFR (MDRD) Non-Af BUN/Creatinine Ratio Glucose Lactic Acid Calcium Phosphorus Magnesium Total Bilirubin AST ALT Alkaline Phosphatase Total Protein Albumin Globulin Albumin/Globulin Ratio Triglycerides Cholesterol LDL Cholesterol VLDL Cholesterol HDL Cholesterol Amylase Lipase Folate TSH Urine Color Urine Clarity Urine pH Ur Specific Orestes Urine Protein Urine Glucose (UA) Urine Ketones Urine Occult Blood Urine Nitrite Urine Bilirubin Urine Urobilinogen Ur Leukocyte Esterase Urine RBC Urine WBC Ur Squamous Epith Cells Ur Transition Epith Cell Amorphous Sediment Urine Bacteria Hyaline Casts Urine Mucus Urine Opiates Screen Urine Methadone Screen Ur Barbiturates Screen Ur Phencyclidine Scrn Ur Amphetamines Screen U Methamphetamin-MDMA U Benzodiazepines Scrn Urine Cocaine Screen U Cannabinoids Screen Ur Drug Screen Comment Ethyl Alcohol Acetone Level SMALL H Double Strand DNA Ab Thyroglobulin Antibody Thyroid Peroxidase Ab MRSA (PCR) Negative 09/03/18 09/03/18 09/03/18 12:15 12:15 12:15 WBC RBC Hgb Hct MCV MCH MCHC RDW RDW Differential Plt Count MPV Immature Gran % (Auto) Neut % (Auto) Lymph % (Auto) [place] % (Auto) Eos % (Auto) Baso % (Auto) Absolute Neuts (auto) Absolute Lymphs (auto) Total Counted PT 14.7 INR 1.2 APTT 25.1 Specimen Type Sample Site pH Bicarbonate Actual POC Total CO2 Base Excess O2 Saturation ABG pCO2 ABG pO2 Gm Test O2 Delivery Device Blood Gas Notified Whom Blood Gas Notified Time Sodium Potassium Chloride Carbon Dioxide Anion Gap BUN Creatinine Estim Creat Clear Calc Est GFR (MDRD) Af Amer Est GFR (MDRD) Non-Af BUN/Creatinine Ratio Glucose Lactic Acid 2.1 H Calcium Phosphorus 3.5 Magnesium 1.9 Total Bilirubin AST ALT Alkaline Phosphatase Total Protein Albumin Globulin Albumin/Globulin Ratio Triglycerides 276 H Cholesterol LDL Cholesterol VLDL Cholesterol HDL Cholesterol Amylase 93 Lipase Folate 18.10 TSH Urine Color Urine Clarity Urine pH Ur Specific [place] Urine Protein Urine Glucose (UA) Urine Ketones Urine Occult Blood Urine Nitrite Urine Bilirubin Urine Urobilinogen Ur Leukocyte Esterase Urine RBC Urine WBC Ur Squamous Epith Cells Ur Transition Epith Cell Amorphous Sediment Urine Bacteria Hyaline Casts Urine Mucus Urine Opiates Screen Urine Methadone Screen Ur Barbiturates Screen Ur Phencyclidine Scrn Ur Amphetamines Screen U Methamphetamin-MDMA U Benzodiazepines Scrn Urine Cocaine Screen U Cannabinoids Screen Ur Drug Screen Comment Ethyl Alcohol Acetone Level Double Strand DNA Ab Thyroglobulin Antibody Thyroid Peroxidase Ab MRSA (PCR) 09/03/18 09/03/18 09/03/18 12:55 12:55 15:25 WBC RBC Hgb Hct MCV MCH MCHC RDW RDW Differential Plt Count MPV Immature Gran % (Auto) Neut % (Auto) Lymph % (Auto) [place] % (Auto) Eos % (Auto) Baso % (Auto) Absolute Neuts (auto) Absolute Lymphs (auto) Total Counted PT INR APTT Specimen Type Sample Site pH Bicarbonate Actual POC Total CO2 Base Excess O2 Saturation ABG pCO2 ABG pO2 Gm Test O2 Delivery Device Blood Gas Notified Whom Blood Gas Notified Time Sodium Potassium Chloride Carbon Dioxide Anion Gap BUN Creatinine Estim Creat Clear Calc Est GFR (MDRD) Af Amer Est GFR (MDRD) Non-Af BUN/Creatinine Ratio Glucose Lactic Acid Calcium Phosphorus Magnesium Total Bilirubin AST ALT Alkaline Phosphatase Total Protein Albumin Globulin Albumin/Globulin Ratio Triglycerides Cholesterol LDL Cholesterol VLDL Cholesterol HDL Cholesterol Amylase Lipase Folate TSH Urine Color Urine Clarity Urine pH Ur Specific [place]restes Urine Protein Urine Glucose (UA) Urine Ketones Urine Occult Blood Urine Nitrite Urine Bilirubin Urine Urobilinogen Ur Leukocyte Esterase Urine RBC Urine WBC Ur Squamous Epith Cells Ur Transition Epith Cell Amorphous Sediment Urine Bacteria Hyaline Casts Urine Mucus Urine Opiates Screen POSITIVE H Urine Methadone Screen NEGATIVE Ur Barbiturates Screen NEGATIVE Ur Phencyclidine Scrn NEGATIVE Ur Amphetamines Screen NEGATIVE U Methamphetamin-MDMA NEGATIVE U Benzodiazepines Scrn NEGATIVE Urine Cocaine Screen NEGATIVE U Cannabinoids Screen NEGATIVE Ur Drug Screen Comment Ethyl Alcohol Acetone Level Double Strand DNA Ab Pending Thyroglobulin Antibody Pending Thyroid Peroxidase Ab Pending MRSA (PCR) 09/03/18 09/03/18 09/04/18 16:10 16:10 04:25 WBC 10.3 6.1 RBC 4.26 3.74 L Hgb 14.6 12.7 Hct 45.1 39.2 MCV 105.9 H 104.8 H MCH 34.3 H 34.0 H MCHC 32.4 32.4 RDW 13.6 12.9 RDW Differential 52.3 H 48.0 H Plt Count 160 133 L MPV 9.3 8.8 Immature Gran % (Auto) 0.500 Neut % (Auto) 82.6 H Lymph % (Auto) 6.8 L [place] % (Auto) 9.7 Eos % (Auto) 0.2 Baso % (Auto) 0.2 Absolute Neuts (auto) 5.0 Absolute Lymphs (auto) 0.41 L Total Counted Not Reportable PT INR APTT Specimen Type Sample Site pH Bicarbonate Actual POC Total CO2 Base Excess O2 Saturation ABG pCO2 ABG pO2 Gm Test O2 Delivery Device Blood Gas Notified Whom Blood Gas Notified Time Sodium 137 Potassium 5.3 H Chloride 109 H Carbon Dioxide 10.0 L Anion Gap 18 H BUN 13 Creatinine 0.77 Estim Creat Clear Calc 47.10 Est GFR (MDRD) Af Amer 95 Est GFR (MDRD) Non-Af 79 BUN/Creatinine Ratio 16.9 Glucose 215 H Lactic Acid Calcium 7.8 L Phosphorus Magnesium Total Bilirubin AST ALT Alkaline Phosphatase Total Protein Albumin Globulin Albumin/Globulin Ratio Triglycerides Cholesterol LDL Cholesterol VLDL Cholesterol HDL Cholesterol Amylase Lipase Folate TSH Urine Color Urine Clarity Urine pH Ur Specific [place] Urine Protein Urine Glucose (UA) Urine Ketones Urine Occult Blood Urine Nitrite Urine Bilirubin Urine Urobilinogen Ur Leukocyte Esterase Urine RBC Urine WBC Ur Squamous Epith Cells Ur Transition Epith Cell Amorphous Sediment Urine Bacteria Hyaline Casts Urine Mucus Urine Opiates Screen Urine Methadone Screen Ur Barbiturates Screen Ur Phencyclidine Scrn Ur Amphetamines Screen U Methamphetamin-MDMA U Benzodiazepines Scrn Urine Cocaine Screen U Cannabinoids Screen Ur Drug Screen Comment Ethyl Alcohol Acetone Level Double Strand DNA Ab Thyroglobulin Antibody Thyroid Peroxidase Ab MRSA (PCR) 09/04/18 09/04/18 04:25 04:25 WBC RBC Hgb Hct MCV MCH MCHC RDW RDW Differential Plt Count MPV Immature Gran % (Auto) Neut % (Auto) Lymph % (Auto) [place] % (Auto) Eos % (Auto) Baso % (Auto) Absolute Neuts (auto) Absolute Lymphs (auto) Total Counted PT 14.0 INR 1.1 APTT Specimen Type Sample Site pH Bicarbonate Actual POC Total CO2 Base Excess O2 Saturation ABG pCO2 ABG pO2 Gm Test O2 Delivery Device Blood Gas Notified Whom Blood Gas Notified Time Sodium 141 Potassium 3.8 Chloride 109 H Carbon Dioxide 21.0 Anion Gap 11 BUN 9 Creatinine 0.64 Estim Creat Clear Calc 47.10 Est GFR (MDRD) Af Amer 119 Est GFR (MDRD) Non-Af 98 BUN/Creatinine Ratio 14.2 Glucose 167 H Lactic Acid Calcium 8.5 Phosphorus Magnesium 1.5 L Total Bilirubin 0.80 AST 67 H ALT 65 H Alkaline Phosphatase 119 H Total Protein 6.0 L Albumin 3.0 L Globulin 3.0 Albumin/Globulin Ratio 1.0 Triglycerides 211 H Cholesterol 161 LDL Cholesterol 55 VLDL Cholesterol 42 H HDL Cholesterol 64 Amylase Lipase 1352 H Folate TSH Urine Color Urine Clarity Urine pH Ur Specific [place] Urine Protein Urine Glucose (UA) Urine Ketones Urine Occult Blood Urine Nitrite Urine Bilirubin Urine Urobilinogen Ur Leukocyte Esterase Urine RBC Urine WBC Ur Squamous Epith Cells Ur Transition Epith Cell Amorphous Sediment Urine Bacteria Hyaline Casts Urine Mucus Urine Opiates Screen Urine Methadone Screen Ur Barbiturates Screen Ur Phencyclidine Scrn Ur Amphetamines Screen U Methamphetamin-MDMA U Benzodiazepines Scrn Urine Cocaine Screen U Cannabinoids Screen Ur Drug Screen Comment Ethyl Alcohol Acetone Level Double Strand DNA Ab Thyroglobulin Antibody Thyroid Peroxidase Ab MRSA (PCR) POC Glucose 09/04/18 09/04/18 09/03/18 05:45 00:05 17:25 POC Glucose 170 H 218 H 215 H 09/03/18 12:39 POC Glucose 178 H Medical Necessity - Tobacco Use Smoking Status: Current every day smoker Tobacco Use: Cigarettes Assessment/Plan All Active Problems Acute recurrent pancreatitis (Acute) Shock, unspecified (Acute) Lactic acidosis (Acute) Alcohol intoxication in active alcoholic with complication (Acute) Alcoholic ketosis (Acute) Metabolic acidosis (Acute) Dehydration (Acute) Abnormal LFTs (Acute) 68-year-old female with pancreatitis 1. Patient's labs have improved this morning. Her LFTs are better and her lipase is decreased. When I palpated her abdomen she did not complain of any sharp pain. I think at this time she is okay to start a diet and see how that goes. I do not believe she has any indication for ERCP at this point. MRCP read is pending. No indication for cholecystectomy as she has no gallstones in her gallbladder. Telly Alba MD Pager: [facility] [address] [place] [address], [address] [place] [address] Office:
[2018-09-04] MEDS: Enoxaparin 40 MG/0.4 ML Syringe SC (07:43)
--- NOTE | 2018-09-04 09:34 | CASEMGMT ---
SW received a referral for ETOH and mental health. SAM reviewed patient's chart and noted SW has been involved with patient during past visits to [facility]. It appears she has continuously denied mental health issues or ETOH abuse despite what doctors tell her. SAM met with patient. Introduced self and role at [facility]. SAM asked patient about being self pay. She said she went to Social Security and it turns out she will have to pay back pay since she didn't sign up when she was 63. SAM asked her if she has applied for Medicaid. She said she has been too sick. SAM asked if she would like to complete a Medicaid application while at [facility]. She said she would. SAM told her that someone would be able to help her with application. SAM asked her how she is doing with her Depression/Anxiety. She said she doesn't have either Depression or Anxiety. She just said she has fear about caring for herself at home and getting up her many steps. SAM asked if she thought she would need a senior living at discharge. She said she thinks she will be fine going home, she just needs to get stronger. SAM/LEYDA CM will follow for d/c planning SAM also asked her how she is doing with her drinking alcohol. She said she doesn't drink much. SAM asked her how often? She wasn't specific so SW asked her how many days a week she drinks. She said 2 days a week. SAM asked her what and how much. She drinks cut Vodka'. She said 2 ounces of Vodka and 2 ounces of water. She said she had to do something for the pain. SAM told her alcohol is not going to help the pain, and per physicians alcohol is the reason she is having this stomach pain. She said she doesn't understand why they say that. She said she has been reading about Autoimmune Disorders. She thinks that is what is causing all of her problems. She said her mom had Pancreatitis and she never drank. SAM told her someone will follow up with her for Medicaid application. Zoe ALVAREZ MSW
[2018-09-04 16:08] LABS: Thyroid Peroxidase AB 7 IU/mL (0-34)
[2018-09-04 16:16] LABS: Anti-dsDNA Ab 15 IU/mL (0-9)
--- NOTE | 2018-09-04 18:13 | PCM.PROGNOTE ---
Patient Problems: Active and Suspected Problems Shock, unspecified (Acute) Lactic acidosis (Acute) Alcohol intoxication in active alcoholic with complication (Acute) Alcoholic ketosis (Acute) Metabolic acidosis (Acute) Dehydration (Acute) Abnormal LFTs (Acute) Subjective: All events of the past 24 H have been reviewed. She is afebrile and vital signs are stable Alll lab was reviewed. The lipase is decreasing. WBC is normal today but with a left shift. Mag is low and has been supplemented. MRCP with no evidence od choledocholithiasis......reviewed Dr. Alba's note.......no indication for ERCP at this time and no indication for cholecystectomy since there are no stones in the GB. She received Ativan this AM at about 3 AM. She is on a CIWA protocol. She denies nausea and abdominal pain today. Tells me that she does not drink....I pointed out that she was legally drunk when the blood alcohol was drawn in the ED and she tells me it must be a mistake. She denies any hx of BPD or other psychiatric diagnoses. - Physical Exam General: Alert, Cooperative, No apparent distress HEENT: Atraumatic, PERRLA, EOMI, Normocephalic Oral: Moist Mucosa, No Gingival or Mucosal Lesions/ Ulcerations Neck: Supple, No JVD, No Nodes Lungs: Clear to auscultation, Diminished Cardiovascular: Regular rate, Regular Rhythm, Normal S1, Normal S2, No rub noted, No Gallop Abdomen: Bowel Sounds Present, Soft, Non Tender, Non-Distended, - - no guarding with palpation Extremities: No cyanosis, No edema, No Calf Tenderness Skin: No rashes, No breakdown Neurological: Cranial nerves II-XII grossly intact, Neuro grossly intact Psych/Mental Status: Delusions Vital Signs Temp Pulse Resp BP Pulse Ox 97.9 F 82 19 H 152/71 H 98 09/04/18 15:00 09/04/18 17:18 09/04/18 17:00 09/04/18 17:18 09/04/18 17:00 Oxygen Delivery Method Room Air Weight: 142 lb 13.753 oz Body Mass Index (BMI) 23.3 Finger Stick Blood Glucose 103 Intake and Output for Last 24 Hours 09/02/18 09/03/18 09/04/18 23:59 23:59 23:59 Intake Total 2563.8 / 2563.8 2795 / 2795 Output Total 1600 / 1600 1350 / 1350 Balance 963.8 / 963.8 1445 / 1445 Microbiology Past 72 Hours 09/03/18 08:10 Urine Culture - Preliminary Urine, Clean Catch Culture exhibits no growth. Laboratory Tests Past 24 Hrs 09/03/18 09/04/18 09/04/18 12:55 04:25 04:25 WBC 6.1 RBC 3.74 L Hgb 12.7 Hct 39.2 MCV 104.8 H MCH 34.0 H MCHC 32.4 RDW 12.9 RDW Differential 48.0 H Plt Count 133 L MPV 8.8 Immature Gran % (Auto) 0.500 Neut % (Auto) 82.6 H Lymph % (Auto) 6.8 L [place] % (Auto) 9.7 Eos % (Auto) 0.2 Baso % (Auto) 0.2 Absolute Neuts (auto) 5.0 Absolute Lymphs (auto) 0.41 L Total Counted Not Reportable PT 14.0 INR 1.1 Sodium Potassium Chloride Carbon Dioxide Anion Gap BUN Creatinine Estim Creat Clear Calc Est GFR (MDRD) Af Amer Est GFR (MDRD) Non-Af BUN/Creatinine Ratio Glucose Calcium Magnesium Total Bilirubin AST ALT Alkaline Phosphatase Total Protein Albumin Globulin Albumin/Globulin Ratio Triglycerides Cholesterol LDL Cholesterol VLDL Cholesterol HDL Cholesterol Lipase Double Strand DNA Ab 15 H 09/04/18 04:25 WBC RBC Hgb Hct MCV MCH MCHC RDW RDW Differential Plt Count MPV Immature Gran % (Auto) Neut % (Auto) Lymph % (Auto) [place] % (Auto) Eos % (Auto) Baso % (Auto) Absolute Neuts (auto) Absolute Lymphs (auto) Total Counted PT INR Sodium 141 Potassium 3.8 Chloride 109 H Carbon Dioxide 21.0 Anion Gap 11 BUN 9 Creatinine 0.64 Estim Creat Clear Calc 47.10 Est GFR (MDRD) Af Amer 119 Est GFR (MDRD) Non-Af 98 BUN/Creatinine Ratio 14.2 Glucose 167 H Calcium 8.5 Magnesium 1.5 L Total Bilirubin 0.80 AST 67 H ALT 65 H Alkaline Phosphatase 119 H Total Protein 6.0 L Albumin 3.0 L Globulin 3.0 Albumin/Globulin Ratio 1.0 Triglycerides 211 H Cholesterol 161 LDL Cholesterol 55 VLDL Cholesterol 42 H HDL Cholesterol 64 Lipase 1352 H Double Strand DNA Ab POC Glucose 09/04/18 09/04/18 05:45 00:05 POC Glucose 170 H 218 H Medical Necessity - Tobacco Use Smoking Status: Current every day smoker Tobacco Use: Cigarettes Assessment/Plan All Active Problems Acute recurrent pancreatitis (Acute) Shock, unspecified (Acute) Lactic acidosis (Acute) Alcohol intoxication in active alcoholic with complication (Acute) Alcoholic ketosis (Acute) Metabolic acidosis (Acute) Dehydration (Acute) Abnormal LFTs (Acute) Impressions 1. acute recurrent pancreatitis with N/V/ abdominal pain - due to alcohol abuse. Do evidence choledocholithiasis on MRCP 2. Alcoholic ketosis 3. Severe metabolic acidosis - resolved 4. Possible common bile duct stone - ruled out on the MRCP 5. Abnormal LFTs - primarily transaminitis 6. History of psoriatic arthritis? 7. Hypothyroidism 8. Reported history of rheumatoid arthritis however rheumatoid factor and CCP are both negative 9. Bipolar disorder 10. History of delusional disorder 11. History of alcoholism-patient denies 12. Acute renal failure secondary to severe dehydration 13. Hyponatremia 14. + NAIN with a + anti double stranded DNA - suspect she may have lupus Started on clears by Dr. Wasserman recheck the lab in the AM continue the SSI Start Seroquel 25 BID Get records from the counselling center Check a HGBA1C Decrease the IV fluids Continue CIWA Code Visit Inpatient E&M: 33180 Subs Hosp L3
[2018-09-04 19:20] LABS: Bedside Glucose 133 mg/dL (70-110)
[2018-09-04] MEDS: QUEtiapine 25 MG Tablet PO (23:02)
[2018-09-05] VITALS (18 sets, daily range): BP systolic 145–175; BP diastolic 58–96; PULSE 69–105; RESP 14–21; TEMP 36.6–37.4; O2SAT 93–98
[2018-09-05] MEDS: LORazepam 2 MG/ML Syringe IV ×2 (00:03→03:39)
[2018-09-05 00:16] LABS: Bedside Glucose 138 mg/dL (70-110)
[2018-09-05 05:30] LABS: Anion Gap 8 (5-15); BUN 3 mg/dL (7-18); BUN/Creat Ratio 8.3 RATIO (10-20); Calcium,Total 8.6 mg/dL (8.5-10.1); Chloride 104 mmol/L (98-107); Creatinine, Serum 0.36 mg/dL (0.55-1.02); EST Glomerular Filtration Rate 188 mL/min (>60); Est Glom Filt Rate - Afr Amer 227 mL/min (>60); Glucose 132 mg/dL (74-106); Lipase 633 U/L (73-393); Magnesium 1.5 mg/dL (1.6-2.6); Phosphorus 0.5 mg/dL (2.5-4.9); Potassium 2.8 mmol/L (3.5-5.1); Sodium Level 142 mmol/L (136-145)
[2018-09-05] MEDS: Lactated Ringers 1,000 ML 100 ML IV (05:42)
[2018-09-05] MEDS: Metoprolol Tartrate 5 MG/5 ML Vial IV ×2 (06:20→12:10)
[2018-09-05] MEDS: 0.9% NaCl Peripheral Flush Adult/Peds IV ×4 (06:21→23:21)
[2018-09-05 07:06] LABS: Hemoglobin A1c 5.8 % (4.2-6.3)
[2018-09-05 07:11] LABS: Bedside Glucose 143 mg/dL (70-110)
--- NOTE | 2018-09-05 07:56 | PCM.PN.SRG ---
Patient Problems: Active and Suspected Problems Shock, unspecified (Acute) Lactic acidosis (Acute) Alcohol intoxication in active alcoholic with complication (Acute) Alcoholic ketosis (Acute) Metabolic acidosis (Acute) Dehydration (Acute) Abnormal LFTs (Acute) Subjective: Patient does report she has some nausea yesterday. She did not advance beyond clear liquids. She is complaining of some epigastric pain but she is also complaining of back pain and chest pain today. - Physical Exam General: Non-Cooperative HEENT: Atraumatic Lungs: Normal air movement Abdomen: Soft, Non-Distended, Tender - Mild abdominal tenderness, diffuse Vital Signs Temp Pulse Resp BP Pulse Ox 99.3 F H 79 18 154/77 H 97 09/05/18 06:52 09/05/18 06:52 09/05/18 06:52 09/05/18 06:52 09/05/18 06:52 Oxygen Delivery Method Room Air Weight: 142 lb 3.17 oz Body Mass Index (BMI) 23.3 Finger Stick Blood Glucose 103 Intake and Output for Last 24 Hours 09/03/18 09/04/18 09/05/18 23:59 23:59 23:59 Intake Total 2563.8 / 2563.8 4337 / 4337 1963 / 1963 Output Total 1600 / 1600 2150 / 2150 1200 / 1200 Balance 963.8 / 963.8 2187 / 2187 763 / 763 Microbiology Past 72 Hours 09/03/18 08:10 Urine Culture - Preliminary Urine, Clean Catch Culture exhibits no growth. Laboratory Tests Past 24 Hrs 09/03/18 09/05/18 09/05/18 12:55 04:35 04:35 Sodium 142 Potassium 2.8 L Chloride 104 Carbon Dioxide 30.0 Anion Gap 8 BUN 3 L Creatinine 0.36 L Estim Creat Clear Calc 47.10 Est GFR (MDRD) Af Amer 227 Est GFR (MDRD) Non-Af 188 BUN/Creatinine Ratio 8.3 L Glucose 132 H Hemoglobin A1c 5.8 Calcium 8.6 Phosphorus 0.5 L* Magnesium 1.5 L Lipase 633 H Double Strand DNA Ab 15 H POC Glucose 09/05/18 09/05/18 09/04/18 06:58 00:13 19:15 POC Glucose 143 H 138 H 133 H Medical Necessity - Tobacco Use Smoking Status: Current every day smoker Tobacco Use: Cigarettes Assessment/Plan All Active Problems Acute recurrent pancreatitis (Acute) Shock, unspecified (Acute) Lactic acidosis (Acute) Alcohol intoxication in active alcoholic with complication (Acute) Alcoholic ketosis (Acute) Metabolic acidosis (Acute) Dehydration (Acute) Abnormal LFTs (Acute) 68-year-old female with acute on chronic pancreatitis, likely alcoholic 1. Patient's lipase continues to down trend. She has several electrolyte abnormalities which the primary team will correct. Advance diet as tolerated once her abdominal pain improves. No indication for surgery at this time. Telly Alba MD Pager: [facility] [address] [place] [address], [address] [place] [address] Office:
[2018-09-05] MEDS: Morphine 2 MG/ML Syringe IV ×2 (09:37→13:25)
[2018-09-05] MEDS: Enoxaparin 40 MG/0.4 ML Syringe SC (09:44)
[2018-09-05] MEDS: QUEtiapine 25 MG Tablet PO ×2 (10:25→21:14)
[2018-09-05 12:20] LABS: Bedside Glucose 135 mg/dL (70-110)
--- NOTE | 2018-09-05 12:51 | NURSING ---
Student nurse charting reviewed.
[2018-09-05] MEDS: Magnesium Sulfate 4gm/100mL 4 GM/100 ML IV.SOLN. IV (16:15)
--- NOTE | 2018-09-05 16:24 | PCM.PROGNOTE ---
Patient Problems: Active and Suspected Problems Shock, unspecified (Acute) Lactic acidosis (Acute) Alcohol intoxication in active alcoholic with complication (Acute) Alcoholic ketosis (Acute) Metabolic acidosis (Acute) Dehydration (Acute) Abnormal LFTs (Acute) Subjective: All events of the past 24 hours of been reviewed. Afebrile since admission Blood pressures are stable however the systolic blood pressure is consistently elevated. Telemetry-normal sinus rhythm with brief periods of sinus tachycardia on the monitor, no significant ventricular ectopy, no atrial fibrillation Pulse ox is 97% on room air. Poor fluid intake. All lab was personally reviewed. Potassium is low at 2.8, magnesium is low at 1.5 and the phosphorus is very low at 0.5. Lipase continues to decrease and this a.m. was 633. Blood sugars are well controlled. she is c/o back pain and abdominal pain. Mild nausea but no emesis. Denies CP, SOB, palpitations. Continues to deny that she drinks Alcohol and also denies any hx of psychiatric illness. Spoke with the SW and she thinks she will be going home. She was seen by physical therapy but did not ambulate because she said she was tired. She required minimal assistance to stay seated at the edge of the bed and maintain erect posture. Additional therapy was recommended. She last received intravenous Ativan at 3:39 AM today. She was given morphine sulfate for pain at 1:25 PM. Objective: - Physical Exam General: Alert, Cooperative, No apparent distress HEENT: Atraumatic, PERRLA, EOMI, Normocephalic Oral: Moist Mucosa, No Gingival or Mucosal Lesions/ Ulcerations Neck: Supple, No JVD, No Nodes Lungs: Clear to auscultation, Diminished, lying almost flat in bed without SOB Cardiovascular: Regular rate, Regular Rhythm, Normal S1, Normal S2, No rub noted, No Gallop, no murmur Abdomen: Bowel Sounds Present, Soft, c/o diffuse tenderness but, no guarding with palpation, Non-Distended, Extremities: No cyanosis, No edema, No Calf Tenderness Skin: No rashes, No breakdown Neurological: Cranial nerves II-XII grossly intact, Neuro grossly intact Psych/Mental Status: Delusions When I told her the test for autoimmune pancreatitis was negative she said I don't believe that. - Physical Exam Vital Signs Temp Pulse Resp BP Pulse Ox 98.7 F 69 18 152/89 H 97 09/05/18 12:05 09/05/18 15:19 09/05/18 12:05 09/05/18 12:05 09/05/18 12:05 Oxygen Delivery Method Room Air Weight: 142 lb 3.17 oz Body Mass Index (BMI) 23.3 Finger Stick Blood Glucose 103 Intake and Output for Last 24 Hours 09/03/18 09/04/18 09/05/18 23:59 23:59 23:59 Intake Total 2563.8 / 2563.8 4337 / 4337 3070 / 3070 Output Total 1600 / 1600 2150 / 2150 1200 / 1200 Balance 963.8 / 963.8 2187 / 2187 1870 / 1870 Microbiology Past 72 Hours 09/03/18 08:40 Blood Culture - Preliminary Blood Culture (Wb) - Anticubital Right No growth in 48 hours. 09/03/18 08:35 Blood Culture - Preliminary Blood Culture (Wb) - Anticubital Left No growth in 48 hours. 09/03/18 08:10 Urine Culture - Final Urine, Clean Catch Culture exhibits no growth. Laboratory Tests Past 24 Hrs 09/05/18 09/05/18 04:35 04:35 Sodium 142 Potassium 2.8 L Chloride 104 Carbon Dioxide 30.0 Anion Gap 8 BUN 3 L Creatinine 0.36 L Estim Creat Clear Calc 47.10 Est GFR (MDRD) Af Amer 227 Est GFR (MDRD) Non-Af 188 BUN/Creatinine Ratio 8.3 L Glucose 132 H Hemoglobin A1c 5.8 Calcium 8.6 Phosphorus 0.5 L* Magnesium 1.5 L Lipase 633 H POC Glucose 09/05/18 09/05/18 09/05/18 12:09 06:58 00:13 POC Glucose 135 H 143 H 138 H 09/04/18 19:15 POC Glucose 133 H Medical Necessity - Tobacco Use Smoking Status: Current every day smoker Tobacco Use: Cigarettes Assessment/Plan All Active Problems Acute recurrent pancreatitis (Acute) Shock, unspecified (Acute) Lactic acidosis (Acute) Alcohol intoxication in active alcoholic with complication (Acute) Alcoholic ketosis (Acute) Metabolic acidosis (Acute) Dehydration (Acute) Abnormal LFTs (Acute) Impressions 1. acute recurrent pancreatitis with N/V/ abdominal pain - due to alcohol abuse. Do evidence choledocholithiasis on MRCP 2. Alcoholic ketosis 3. Severe metabolic acidosis - resolved 4. Possible common bile duct stone - ruled out on the MRCP 5. Abnormal LFTs - primarily transaminitis 6. History of psoriatic arthritis? 7. Hypothyroidism 8. Reported history of rheumatoid arthritis however rheumatoid factor and CCP are both negative...Dr. 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 Bipolar disorder 10. History of delusional disorder 11. History of alcoholism-patient denies 12. Acute renal failure secondary to severe dehydration 13. Hyponatremia 14. + NAIN with a + anti double stranded DNA - suspect she may have lupus 15. Multiple electrolyte abnormalities including hyponatremia, hypokalemia, hypomagnesemia and hypophosphatemia Continue Seroquel 25 mg p.o. twice daily Discontinue morphine sulfate Toradol 15 mg IV every 6 hours as needed pain-do not exceed 8 doses Supplement potassium, phosphorus and magnesium Recheck lab in the a.m. Advance the diet to full liquids and if she tolerates will transition her to all oral medications Continue intravenous fluids and supplementation of thiamine and folic acid May need SNF at discharge for strengthening Reviewed Dr. Garcia's records......Last visit was in January. she inconsistently follows up. Was give a RX for Prdnisone 10 mg #30 with 1 RF and instructed to take 10 mg every day for 3-5 days for flares. Code Visit Inpatient E&M: 87053 Subs Hosp L2
[2018-09-05] MEDS: Ketorolac 15 MG/ML Vial IV ×2 (17:15→23:21)
[2018-09-05 17:26] LABS: Bedside Glucose 162 mg/dL (70-110)
[2018-09-05] MEDS: Atenolol 50 MG Tablet PO (21:14)
[2018-09-05] MEDS: Insulin Lispro 100 UNIT/ML INSULN.PEN SC (21:14)
[2018-09-05 21:56] LABS: Bedside Glucose 170 mg/dL (70-110)
[2018-09-06] VITALS (14 sets, daily range): BP systolic 152–187; BP diastolic 76–110; PULSE 64–85; RESP 16–18; TEMP 36.4–36.9; O2SAT 97–98
[2018-09-06] MEDS: traMADol 50 MG Tablet PO ×2 (00:59→20:09)
[2018-09-06] MEDS: Levothyroxine 75 MCG Tablet PO (03:37)
[2018-09-06] MEDS: 0.9% NaCl Peripheral Flush Adult/Peds IV ×3 (05:14→18:57)
[2018-09-06] MEDS: Ketorolac 15 MG/ML Vial IV ×3 (05:14→18:55)
[2018-09-06 06:22] LABS: ALB/GLOB Ratio 0.9 RATIO (0.9-2.4); AST(SGOT) 103 U/L (15-37); Alanine Aminotransfer ALT/SGPT 64 U/L (13-56); Albumin, Serum 2.7 g/dL (3.2-5.0); Alkaline Phosphatase 147 U/L (45-117); Anion Gap 6 (5-15); BUN 4 mg/dL (7-18); BUN/Creat Ratio 11.5 RATIO (10-20); Chloride 105 mmol/L (98-107); Creatinine, Serum 0.35 mg/dL (0.55-1.02); EST Glomerular Filtration Rate 197 mL/min (>60); Est Glom Filt Rate - Afr Amer 239 mL/min (>60); Globulin 3.1 g/dL (2.2-4.2); Glucose 132 mg/dL (74-106); Lipase 635 U/L (73-393); Magnesium 2.2 mg/dL (1.6-2.6); Phosphorus 2.8 mg/dL (2.5-4.9); Potassium 3.7 mmol/L (3.5-5.1); Protein, Total 5.8 g/dL (6.4-8.2); Sodium Level 139 mmol/L (136-145)
[2018-09-06 07:05] LABS: Bedside Glucose 138 mg/dL (70-110)
[2018-09-06] MEDS: Enoxaparin 40 MG/0.4 ML Syringe SC (10:26)
[2018-09-06] MEDS: QUEtiapine 25 MG Tablet PO ×2 (10:27→21:42)
[2018-09-06] MEDS: Atenolol 50 MG Tablet PO ×2 (10:27→20:10)
[2018-09-06] MEDS: Insulin Lispro 100 UNIT/ML INSULN.PEN SC ×3 (11:03→21:42)
[2018-09-06 11:25] LABS: Bedside Glucose 193 mg/dL (70-110)
--- NOTE | 2018-09-06 14:23 | PN_ITS ---
Patient Problems: Active and Suspected Problems Shock, unspecified (Acute) Lactic acidosis (Acute) Alcohol intoxication in active alcoholic with complication (Acute) Alcoholic ketosis (Acute) Metabolic acidosis (Acute) Dehydration (Acute) Abnormal LFTs (Acute) Subjective: KEESHA is a 68-year-old female who was admitted to the hospital with acute pancreatitis secondary to alcohol. CT scan of the abdomen and pelvis reported a possible common bile duct but MRCP did not reveal evidence of choledocholithiasis. She had does have a history of bipolar disorder and alcoholism but denies both. She lives by herself. She has had an IgG subclass for in the past which was negative. Has been diagnosed with inflammatory polyarthropathy by Dr. Avery.. RA and CCP are negative but the NAIN and the [id number] DNA are positive. She has been on a nonsteroidal anti- inflammatory drug and was given a prescription in January for prednisone 10 mg and instructed to take 1 p.o. daily for 3-5 days for flares. She had 1 refill. She was placed on Seroquel 25 mg twice daily since admission which has limited the amount of Ativan we have had give her. She was mildly tremulous on 09/05/2018. All events of the past 24 hours of been reviewed. Afebrile since admission Blood pressures are stable but systolic is consistently elevated........ occasional sinus tachycardia but primarily in normal sinus rhythm with a normal rate Pulse ox on room air is 90%. Diet was advanced on 09/05/2018 and her intake is improved. She took 625 on 09/05/2018 and has had 680 so far today. All lab was personally reviewed. BMP is unremarkable. Fasting glucose is 132. Bilirubin is within normal limits but the AST and ALT are mildly elevated at 103 and 64 respectively. The alkaline phosphatase is 147. Lipase today is 635. Phosphorus and magnesium are normal today following supplementation. Potassium is 3.7. Blood sugars have been elevated but the hemoglobin A1c is 5.8. She denies nausea today and denies abdominal pain. She has had no emesis. Denies hallucinations. Her only complaint is that she feels weak and tired. Gerri velasco needs a lot of encouragement to participate in physical therapy. She refused to ambulate. Objective: - Physical Exam General: Alert, Cooperative, No apparent distress HEENT: Atraumatic, PERRLA, EOMI, Normocephalic Oral: Moist Mucosa, No Gingival or Mucosal Lesions/ Ulcerations Neck: Supple, No JVD, No Nodes Lungs: Clear to auscultation, Diminished, lying almost flat in bed without SOB Cardiovascular: Regular rate, Regular Rhythm, Normal S1, Normal S2, No rub noted, No Gallop, no murmur Abdomen: Bowel Sounds Present, Soft, nontender to palpation today, no guarding with palpation, Non-Distended, Extremities: No cyanosis, No edema, No Calf Tenderness Skin: No rashes, No breakdown Neurological: Cranial nerves II-XII grossly intact, Neuro grossly intact Psych/Mental Status: She is pleasant but continues to deny that she drinks vodka daily and also continues to deny that she has any mental health issues. She continues to insist that the pancreatitis is autoimmune - Physical Exam Vital Signs Temp Pulse Resp BP Pulse Ox 98.0 F 64 16 172/77 H 98 09/06/18 09:49 09/06/18 10:59 09/06/18 09:49 09/06/18 11:54 09/06/18 09:49 Oxygen Delivery Method Room Air Weight: 143 lb 15.39 oz Body Mass Index (BMI) 23.3 Finger Stick Blood Glucose 103 Intake and Output for Last 24 Hours 09/04/18 09/05/18 09/06/18 23:59 23:59 23:59 Intake Total 4337 / 4337 5355 / 5355 2004 Output Total 2150 / 2150 1200 / 1200 Balance 2187 / 2187 4155 / 4155 2004 Microbiology Past 72 Hours 09/03/18 08:40 Blood Culture - Preliminary Blood Culture (Wb) - Anticubital Right No growth in 48 hours. 09/03/18 08:35 Blood Culture - Preliminary Blood Culture (Wb) - Anticubital Left No growth in 48 hours. 09/03/18 08:10 Urine Culture - Final Urine, Clean Catch Culture exhibits no growth. Laboratory Tests Past 24 Hrs 09/06/18 05:42 Sodium 139 Potassium 3.7 Chloride 105 Carbon Dioxide 28.0 Anion Gap 6 BUN 4 L Creatinine 0.35 L Estim Creat Clear Calc 47.10 Est GFR (MDRD) Af Amer 239 Est GFR (MDRD) Non-Af 197 BUN/Creatinine Ratio 11.5 Glucose 132 H Calcium 8.0 L Phosphorus 2.8 Magnesium 2.2 Total Bilirubin 0.90 AST 103 H ALT 64 H Alkaline Phosphatase 147 H Total Protein 5.8 L Albumin 2.7 L Globulin 3.1 Albumin/Globulin Ratio 0.9 Lipase 635 H POC Glucose 09/06/18 09/06/18 09/05/18 11:02 06:52 21:07 POC Glucose 193 H 138 H 170 H 09/05/18 17:20 POC Glucose 162 H Medical Necessity - Tobacco Use Smoking Status: Current every day smoker Tobacco Use: Cigarettes Assessment/Plan All Active Problems Acute recurrent pancreatitis (Acute) Shock, unspecified (Acute) Lactic acidosis (Acute) Alcohol intoxication in active alcoholic with complication (Acute) Alcoholic ketosis (Acute) Metabolic acidosis (Acute) Dehydration (Acute) Abnormal LFTs (Acute) Impressions 1. acute recurrent pancreatitis with N/V/ abdominal pain - due to alcohol abuse. Do evidence choledocholithiasis on MRCP 2. Alcoholic ketosis 3. Severe metabolic acidosis - resolved 4. Possible common bile duct stone - ruled out on the MRCP 5. Abnormal LFTs - primarily transaminitis 6. History of psoriatic arthritis? 7. Hypothyroidism 8. Reported history of rheumatoid arthritis however rheumatoid factor and CCP are both negative...Dr. 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 Bipolar disorder 10. History of delusional disorder 11. History of alcoholism-patient denies 12. Acute renal failure secondary to severe dehydration 13. Hyponatremia 14. + NAIN with a + anti double stranded DNA - suspect she may have lupus 15. Multiple electrolyte abnormalities including hyponatremia, hypokalemia, hypomagnesemia and hypophosphatemia Continue Seroquel 25 mg p.o. twice daily - would continue this at DC Continue Toradol and with and 8 IV doses are completed if the hemoglobin is stable and she continues to deny abdominal pain will transition to Mobic Will need SNF at discharge Continue to try and encourage her to do PT/OT Advance diet to low-fat in the a.m. Code Visit Inpatient E&M: 35514 Subs Hosp L2
[2018-09-06 18:20] LABS: Bedside Glucose 206 mg/dL (70-110)
[2018-09-06 22:31] LABS: Bedside Glucose 164 mg/dL (70-110)
[2018-09-07] VITALS (15 sets, daily range): BP systolic 147–188; BP diastolic 83–99; PULSE 61–79; RESP 14–18; TEMP 36.6–37.1; O2SAT 94–99
[2018-09-07] MEDS: Levothyroxine 75 MCG Tablet PO (04:38)
[2018-09-07 06:51] LABS: Bedside Glucose 167 mg/dL (70-110)
[2018-09-07] MEDS: Ketorolac 15 MG/ML Vial IV ×3 (08:26→21:32)
[2018-09-07] MEDS: 0.9% NaCl Peripheral Flush Adult/Peds IV ×6 (08:28→22:17)
[2018-09-07] MEDS: Atenolol 50 MG Tablet PO ×2 (09:22→21:31)
[2018-09-07] MEDS: QUEtiapine 25 MG Tablet PO ×2 (09:22→21:31)
[2018-09-07] MEDS: Enoxaparin 40 MG/0.4 ML Syringe SC (09:24)
[2018-09-07] MEDS: Insulin Lispro 100 UNIT/ML INSULN.PEN SC ×3 (09:31→16:27)
[2018-09-07] MEDS: Pantoprazole Sodium 40 MG Tablet PO (09:51)
[2018-09-07] MEDS: traMADol 50 MG Tablet PO (10:47)
[2018-09-07 11:25] LABS: Bedside Glucose 153 mg/dL (70-110)
[2018-09-07] MEDS: Thiamine Hydrochloride 100 MG Tablet PO (11:47)
[2018-09-07 12:13] LABS: Thyroglobulin Antibody < 1.0 IU/mL (0.0-0.9)
--- NOTE | 2018-09-07 12:16 | CASEMGMT ---
Per physician patient said she can't go to a retirement or have home health because she cannot afford it. SW spoke with patient and let her know that her Medicare will pay 100% for 20 days in a SNF and it will also pay 100% for home health. She said she is not sure what she wants to do. SW told her SW will check back with her. Zoe ALVAREZ MSW
--- NOTE | 2018-09-07 14:37 | PN_ITS ---
Patient Problems: Active and Suspected Problems Shock, unspecified (Acute) Lactic acidosis (Acute) Alcohol intoxication in active alcoholic with complication (Acute) Alcoholic ketosis (Acute) Metabolic acidosis (Acute) Dehydration (Acute) Abnormal LFTs (Acute) Subjective: Patient seen and examined. She complains of feeling weak this morning. Nausea and vomiting have resolved. Abdominal pain has also resolved. She complains of decreased appetite but states this is the norm for her. Review of systems otherwise negative. Patient states she does not want to go to a long-term facility or get home health care because she cannot afford it. Vitals/I&O's: Vital Signs Temp Pulse Resp BP Pulse Ox 98.6 F 76 14 147/86 H 95 09/07/18 12:43 09/07/18 12:43 09/07/18 12:43 09/07/18 12:43 09/07/18 12:43 Oxygen Delivery Method Room Air Weight: 143 lb 8.335 oz Body Mass Index (BMI) 23.3 Finger Stick Blood Glucose 103 Intake and Output for Last 24 Hours 09/05/18 09/06/18 09/07/18 23:59 23:59 23:59 Intake Total 5355 / 5355 3404 / 3404 1420 / 1420 Output Total 1200 / 1200 Balance 4155 / 4155 3404 / 3404 1420 / 1420 General: Alert, Oriented x3, Cooperative, No apparent distress HEENT: Atraumatic, PERRLA, EOMI, Normocephalic Oral: Moist Mucosa Neck: Supple, No JVD, Negative Carotid Bruits Lungs: Clear to auscultation, Normal air movement, No rhonchi, No wheeze, No rales Cardiovascular: Regular rate, Regular Rhythm, Normal S1, Normal S2, No murmurs Abdomen: Bowel Sounds Present, Soft, Non Tender, Non-Distended, No Hepato- splenomegaly Extremities: No clubbing, No cyanosis, No edema, Capillary Refill Less than 3 Seconds Skin: No rashes, No breakdown Musculoskeletal: No Tenderness to Palpation of Joints or Extremities Lymphatic: No Cervical, Supraclavicular, or Inguinal Adenopathy Neurological: Cranial nerves II-XII grossly intact, Neuro grossly intact, Motor Exam 5/5 strength throughout Psych/Mental Status: Normal Affect, Appropriate, Alert and oriented to time, place, person, mood and affect Microbiology Past 72 Hours 09/03/18 08:40 Blood Culture (Wb) - Anticubital Right Blood Culture - Preliminary No growth in 48 hours. 09/03/18 08:35 Blood Culture (Wb) - Anticubital Left Blood Culture - Preliminary No growth in 48 hours. 09/03/18 08:10 Urine, Clean Catch Urine Culture - Final Culture exhibits no growth. Laboratory Results 09/03/18 12:55: Thyroglobulin Antibody < 1.0, Thyroid Peroxidase Ab 7 09/06/18 17:44: POC Glucose 206 H 09/06/18 21:39: POC Glucose 164 H 09/07/18 06:46: POC Glucose 167 H 09/07/18 11:15: POC Glucose 153 H Current Medications Atenolol (Tenormin (Beta Terry)) 50 mg PO BID [facility] Last Admin: 09/07/18 09:22 Dose: 50 mg Enoxaparin Sodium (Lovenox) 40 mg SC DAILY@1000 [facility] Last Admin: 09/07/18 09:24 Dose: 40 mg Folic Acid (Folic Acid) 1 mg PO DAILY@0800 [facility] Sodium Chloride () 250 mls @ 15 mls/hr IV .[id number] PRN PRN Reason: SALINE FLUSH Last Admin: 09/03/18 12:40 Dose: 15 mls/hr Potassium Chloride 20 meq/ (Lactated Ringer's) 1,010 mls @ 100 mls/hr IV .[id number] [facility] Last Admin: 09/07/18 08:09 Dose: 100 mls/hr Insulin Human Lispro (Humalog Kwikpen (Bkc)) 0 unit SC ACHS [facility]; Protocol Last Admin: 09/07/18 11:16 Dose: 1 u Ketorolac Tromethamine (Toradol) 15 mg IV Q6H PRN PRN PRN Reason: pain >4 Last Admin: 09/07/18 08:26 Dose: 15 mg Labetalol HCl (Trandate) 20 mg IV Q4H PRN PRN PRN Reason: BLOOD PRESSURE ELEVATION Last Admin: 09/07/18 11:16 Dose: 20 mg Levothyroxine Sodium (Synthroid) 75 mcg PO DAILY@0600 [facility] Last Admin: 09/07/18 04:38 Dose: 75 mcg Lorazepam (Ativan) 2 mg PO Q2H PRN PRN; Protocol PRN Reason: CIWA score > 8 but <15 Lorazepam (Ativan) 2 mg PO UD PRN; Protocol PRN Reason: CIWA score >/=15. Magnesium Hydroxide (Milk Of Magnesia) 30 ml PO DAILY PRN PRN PRN Reason: Constipation Pantoprazole Sodium (Protonix) 40 mg PO DAILY [facility] Last Admin: 09/07/18 09:51 Dose: 40 mg [facility]assium [facility] ([facility] Last Admin: 09/07/18 08:07 Dose: 20 meq Quetiapine Fumarate (Seroquel) 25 mg PO BID [facility] Last Admin: 09/07/18 09:22 Dose: 25 mg Sodium Chloride () 5 - 15 ml IV UD PRN PRN Reason: SALINE FLUSH Last Admin: 09/07/18 11:16 Dose: 10 ml Thiamine HCl (Vitamin B1) 100 mg PO DAILY@0800 [facility] Last Admin: 09/07/18 11:47 Dose: 100 mg Tramadol HCl (Ultram) 50 mg PO TID PRN PRN PRN Reason: MODERATE PAIN (4-5/10) Last Admin: 09/07/18 10:47 Dose: 50 mg Medical Necessity - Tobacco Use Smoking Status: Current every day smoker Tobacco Use: Cigarettes Assessment/Plan All Active Problems Acute recurrent pancreatitis (Acute) Shock, unspecified (Acute) Lactic acidosis (Acute) Alcohol intoxication in active alcoholic with complication (Acute) Alcoholic ketosis (Acute) Metabolic acidosis (Acute) Dehydration (Acute) Abnormal LFTs (Acute) 1. Acute recurrent pancreatitis * resolved. Feels much better now * MRCP which showed no evidence of choledocholithiasis. * still has decreased appetite, but this is chronic * stable. Encourage oral intake. * 2. 3 metabolic acidosis: Resolved. Bicarb up to 28 now. 3. Inflammatory polyarthropathy: Follows up with Dr. Garcia. Continue current medications. 4. AK I due to dehydration: Resolved. Creatinine down to 0.35. 5. Hyponatremia: Resolved. 6. Hypothyroidism: On Synthroid. 7. Hypertension: On atenolol. 8. History of bipolar disorder and delusional disorder: Stable. 9. History of alcohol abuse: On thiamine and Multivite. DVT prophylaxis: SCDs. Disposition: Patient recommended for SNF. However she says she cannot afford and also cannot afford home health aide. Was to be discharged home when she is ready. Plan is to discharge home tomorrow. Code Visit Inpatient E&M: 74881 Subs Hosp L2
[2018-09-07 17:30] LABS: Bedside Glucose 161 mg/dL (70-110)
[2018-09-07 22:41] LABS: Bedside Glucose 145 mg/dL (70-110)
[2018-09-08] VITALS (7 sets, daily range): BP systolic 148–158; BP diastolic 72–79; PULSE 58–80; RESP 16; TEMP 36.7–37; O2SAT 98–99
[2018-09-08] MEDS: Levothyroxine 75 MCG Tablet PO (04:02)
[2018-09-08] MEDS: traMADol 50 MG Tablet PO ×2 (04:02→13:52)
[2018-09-08 06:44] LABS: Absolute Lymphocyte Count 0.71 X10^3/ul (0.83-4.51); Absolute Neutrophil Count 3.6 X10^3/uL (2.0-7.7); Basophil# 0.02 X10^3/uL; Basophil% 0.4 % (0-1); Eosinophil# 0.11 X10^3/uL; Eosinophils% 2.2 % (0-5); Hematocrit 41.3 % (37-47); Hemoglobin 13.5 g/dl (12.0-15.0); Lymphocyte # 0.71 X10^3/ul (4.0); Lymphocyte % 14.3 % (19-41); Mean Corp Hgb Conc 32.7 g/gl (32-36); Mean Corpuscular Hgb 33.7 pg (27.0-32.0); Mean Platelet Vol. 9.5 fl (6.2-12.0); Monocyte# 0.49 X10^3/uL; Monocyte% 9.9 % (0-10); Neutrophil # 3.59 X10^3/uL (2.7-7.7); Neutrophil % 72.4 % (47-70); Platelet Count 162 K/mm3 (150-450); RBC Distribution Width CV 13.1 % (11.6-14.6); RBC Distribution Width SD 49.7 fl (35.1-43.9); Red Blood Count 4.01 M/mm3 (4.2-5.4)
[2018-09-08 06:47] LABS: POSITIVE COUNT NO; POSITIVE DIFFERENTIAL NO; POSITIVE MORPHOLOGY NO
[2018-09-08 06:58] LABS: Anion Gap 8 (5-15); BUN 6 mg/dL (7-18); BUN/Creat Ratio 12.8 RATIO (10-20); Calcium,Total 9.1 mg/dL (8.5-10.1); Chloride 106 mmol/L (98-107); Creatinine, Serum 0.47 mg/dL (0.55-1.02); EST Glomerular Filtration Rate 140 mL/min (>60); Est Glom Filt Rate - Afr Amer 169 mL/min (>60); Glucose 159 mg/dL (74-106); Potassium 4.7 mmol/L (3.5-5.1); Sodium Level 141 mmol/L (136-145)
[2018-09-08 07:01] LABS: Bedside Glucose 149 mg/dL (70-110)
[2018-09-08] MEDS: Folic Acid 1 MG Tablet PO (08:30)
[2018-09-08] MEDS: Thiamine Hydrochloride 100 MG Tablet PO (08:30)
[2018-09-08] MEDS: Enoxaparin 40 MG/0.4 ML Syringe SC (08:31)
[2018-09-08] MEDS: Pantoprazole Sodium 40 MG Tablet PO (08:31)
[2018-09-08] MEDS: QUEtiapine 25 MG Tablet PO (08:31)
[2018-09-08] MEDS: Atenolol 50 MG Tablet PO (08:31)
--- NOTE | 2018-09-08 11:01 | PCM.TXEXTCAR ---
- Diet 09/06/18 20:46 Diet: Cardiac/Low Cholesterol Food consistency:: Mechanical Soft/Ground Liquid Consistency:: Regular/Thin Is pt able to select menu?: Yes Diet Comments: no caffeine - Routine Orders/Code Status Enema Type: Fleetz Enema Frequency: Daily PRN Suppository Type: Dulcolax 10mg Suppository Frequency: Daily PRN O2 Frequency: PRN Keep PO Greater than or Equal to (%): 92 Code Status: Full Code - Therapies Weight Bearing: Weight bearing as tolerated Physical Therapy: Eval and Treat Occupational Therapy: Eval and Treat - Allergies/Procedures Done in Hospital Allergies/Adverse Reactions: Allergies nickel [Nickel] Allergy (Verified 09/03/18 07:23) Rash prochlorperazine edisylate [From Compazine] Adverse Reaction (Verified 09/03/18 07:23) disoriented prochlorperazine maleate [From Compazine] Adverse Reaction (Verified 09/03/18 07:23) DISORIENTED Procedures: None - Type of Care/Length of Stay Estimated LOS: Convalescent Care Less Than 30 days Type of Care Needed: Skilled Rehab Potential: Fair Prognosis: Fair - Additional Orders/Day of Discharge Day of Discharge: 09/08/18 - Dietary and Speech Recommendations Dietitian Recommendations/Changes: Rec adv diet as tolerated to Cardiac with po supplements as needed - Follow Up Care Primary Care Physician: Care Physician,No Primary [Primary Care Provider] - Please Follow Up With: Johan Ponce MD - [phone] When: pls follow up to establish PCP relationship Please Follow Up With: Shea Garcia MD When: 1-2 weeks
--- NOTE | 2018-09-08 11:08 | CASEMGMT ---
Patient is reluctant to go home. She feels too weak. RN RAHUL gave her a list of SNF's. She asked if she could go to TCU. SAM spoke with Cee and she would have a bed for patient. SAM let physician, RN, and patient know this information. Plan: [facility] TCU under skilled level of care. Zoe ALVAREZ MSW
[2018-09-08] MEDS: Insulin Lispro 100 UNIT/ML INSULN.PEN SC (11:32)
--- NOTE | 2018-09-08 11:47 | PHA.DC.MR ---
Pharmacy Service has performed discharge medication reconciliation for this patient upon transfer to [facility]. The patient's discharge medication list was reviewed for discrepancies and discrepancies were resolved. Home Medications Atenolol [Tenormin (beta rené)] 100 mg PO DAILY 05/20/17 Levothyroxine [Synthroid] 75 mcg PO DAILY #30 tab 10/23/17 traMADol [Ultram] 50 mg PO TID PRN PRN #20 tab 10/23/17
[2018-09-08 11:50] LABS: Bedside Glucose 199 mg/dL (70-110)
--- NOTE | 2018-09-08 14:39 | PCM.DC.SUM ---
Discharge Date and Diagnosis Date of Admission: 09/03/18 Date of Discharge: 09/08/18 - Primary Discharge Diagnosis acute recurrent pancreatitis alcoholic ketosis and severe anion metabolic acidosis abnormal LFTs hyponatremia - Secondary Discharge Diagnosis Chronic Problems Alcohol abuse (Chronic) pt denies but, ETOH is 111 at admission Hypertension (Chronic) Hypothyroidism (Chronic) Anxiety (Chronic) Fibromyalgia (Chronic) Dysphagia (Chronic) Rheumatoid arthritis (Chronic) never confirmed.....RA is negative.....tells me that she has psoriatic arthritis Psoriasis (Chronic) Chronic back pain (Chronic) osteoarthritis Delusional disorder (Chronic) Bipolar disorder (Chronic) Depression with H/o suicidal attempt (Chronic) Hospital Course and Treatment Imaging Results: Diagnostic Data Chest X-Ray 09/03/18 07:48 IMPRESSION: Normal x-ray examination of the chest. Electronically Signed: Edison Varela, at 8:28 EDT , Service support , Abdomen/Pelvis CT 09/03/18 09:30 IMPRESSION: Distal common bile duct stone versus chronic pancreatitis. There is no biliary dilatation. Consider ultrasound and/or MRCP for further imaging evaluation. Wall thickening of the distal esophagus with esophagitis versus varices. Hepatomegaly. Electronically Signed: Anil Villatoro MD at 10:54 EDT , Service support , ADDENDUM: 09/03/18 1121 IMPRESSION: Distal common bile duct stone versus chronic pancreatitis. There is no biliary dilatation. Consider ultrasound and/or MRCP for further imaging evaluation. Wall thickening of the distal esophagus with esophagitis versus varices. Hepatomegaly. N.B. : The above information has been verbally conveyed by Anil Villatoro MD to Kristal [id number], on 09/03/2018 11:14:43 (ET). Electronically Signed: Anil Villatoro MD at 10:54 EDT , Service support , ADDENDUM: 09/03/18 1525 IMPRESSION: Distal common bile duct stone versus chronic pancreatitis. There is no biliary dilatation. Consider ultrasound and/or MRCP for further imaging evaluation. Wall thickening of the distal esophagus with esophagitis versus varices. Hepatomegaly. N.B. : The above information has been verbally conveyed by Anil Villatoro MD to Kristal [id number], RN, on 09/03/2018 11:14:43 (ET). Electronically Signed: Anil Villatoro MD at 10:54 EDT , Service support , MRCP 09/03/18 12:41 IMPRESSION: No MR evidence for choledocholithiasis. Electronically Signed: Vkiy Marie MD at 9:47 EDT , Service support , Operations: None Procedures: None Summary of Care Provided: The patient is a 68 year old F with a past medical history as listed. She was admitted through the ED on September 03, 2018 with a complaint of abdominal pain, nausea and vomiting. She had also been drinking alcohol on a daily basis and her last drink was the morning of admission. She stated that she drank alcohol to relieve her abdominal pain and had been following up with Dr. Garcia of rheumatology for her numerous rheumatologic and autoimmune disorders. In the ED, she was tachycardic but otherwise hemodynamically stable. White cell count was elevated at 13,000 and chemistry showed sodium of 135 with bicarb of 9 and anion gap of 27. Lactic acid was also 6.4 and AST was elevated to 25 and ALT to 135 with ALP of 201. Lipase was 3452 and alcohol level is 111. CT of the abdomen and pelvis showed a distal common bile duct stone versus chronic pancreatitis with wall thickening of the distal esophagus and esophagitis versus varices. She was admitted and managed for acute pancreatitis likely due to alcohol and also possibly due to common bile duct stone. She was also managed for DARREL likely pre-renal and severe metabolic acidosis due to alcoholic ketosis as well as dehydration. She was started on IVF for hydration. General surgery was consulted o/a of suspicion for choledocholithiasis, but MRCP done was negative for choledocholithiasis. Lipase trended down and patient was started on a diet which she tolerated. Patient was also started on seroquel for agitation. Hospital stay was further complicated by hypokalemia, hypomagnesemia and low phosphorus which were corrected and resolved. Bicarb trended up to 28 and elevated anion gap resolved. AK also resolving creatinine trended down to 0.35. Patient remained stable and was initially refusing detention facility. However she later consented to detention discharge to the TCU on 09/08/2018. Seroquel was discontinued on account of her corrected QT being 518. 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 Patient seen and examined prior to discharge. She had no complaints but says she did not think she would take care of herself at home and was now willing to go to a intermediate. Review of systems otherwise negative. Labs and vitals reviewed. Home medication reviewed and reconciled. o/e: Vital Signs Height 5 ft 5 in Weight: 142 lb 10.225 oz Weight in Pounds 142.6 lbs Pulse Ox 99 Temperature 98.6 F Pulse Rate 74 Respiratory Rate 16 Blood Pressure [BP] 158/72 Blood Pressure 155/79 Blood Pressure Position [BP] Semi-Fowlers Blood Pressure Position Supine [] General: Alert, Oriented x3, Cooperative, No apparent distress HEENT: Atraumatic, PERRLA, EOMI, Normocephalic Oral: Moist Mucosa Neck: Supple, No JVD, Negative Carotid Bruits Lungs: Clear to auscultation, Normal air movement, No rhonchi, No wheeze, No rales Cardiovascular: Regular rate, Regular Rhythm, Normal S1, Normal S2, No murmurs Abdomen: Bowel Sounds Present, Soft, Non Tender, Non-Distended, No Hepato-splenomegaly Extremities: No clubbing, No cyanosis, No edema, Capillary Refill Less than 3 Seconds Skin: No rashes, No breakdown Musculoskeletal: No Tenderness to Palpation of Joints or Extremities Lymphatic: No Cervical, Supraclavicular, or Inguinal Adenopathy Neurological: Cranial nerves II-XII grossly intact, Neuro grossly intact, Motor Exam 5/5 strength throughout Psych/Mental Status: Normal Affect, Appropriate, Alert and oriented to time, place, person, mood and affect Plan as described above. - Physical Exam Vital Signs Temp Pulse Resp BP Pulse Ox 98.6 F 74 16 155/79 H 99 09/08/18 08:20 09/08/18 11:00 09/08/18 08:20 09/08/18 08:20 09/08/18 08:20 Oxygen Delivery Method Room Air Weight: 142 lb 10.225 oz Body Mass Index (BMI) 23.3 Finger Stick Blood Glucose 103 Intake and Output for Last 24 Hours 09/06/18 09/07/18 09/08/18 23:59 23:59 23:59 Intake Total 3404 / 3404 2884 / 2884 615 / 615 Balance 3404 / 3404 2884 / 2884 615 / 615 Microbiology Past 72 Hours 09/03/18 08:40 Blood Culture - Final Blood Culture (Wb) - Anticubital Right No growth in 5 days. 09/03/18 08:35 Blood Culture - Final Blood Culture (Wb) - Anticubital Left No growth in 5 days. Laboratory Tests Past 24 Hrs 09/08/18 09/08/18 05:30 05:30 WBC 5.0 RBC 4.01 L Hgb 13.5 Hct 41.3 MCV 103.0 H MCH 33.7 H MCHC 32.7 RDW 13.1 RDW Differential 49.7 H Plt Count 162 MPV 9.5 Immature Gran % (Auto) 0.800 Neut % (Auto) 72.4 H Lymph % (Auto) 14.3 L Brule % (Auto) 9.9 Eos % (Auto) 2.2 Baso % (Auto) 0.4 Absolute Neuts (auto) 3.6 Absolute Lymphs (auto) 0.71 L Total Counted Not Reportable Sodium 141 Potassium 4.7 Chloride 106 Carbon Dioxide 27.0 Anion Gap 8 BUN 6 L Creatinine 0.47 L Estim Creat Clear Calc 47.10 Est GFR (MDRD) Af Amer 169 Est GFR (MDRD) Non-Af 140 BUN/Creatinine Ratio 12.8 Glucose 159 H Calcium 9.1 POC Glucose 09/08/18 09/08/18 09/07/18 11:28 06:53 21:28 POC Glucose 199 H 149 H 145 H 09/07/18 16:26 POC Glucose 161 H Discharge Diet: Low fat/ Low Cholesterol Discharge Activity: Return to Normal Activity Weight Bearing Status: Weight bearing as tolerated Call your doctor if you observe: Fever of 101 or Higher, Swelling in the ankles Home Medications: Medications to take at Discharge Atenolol [Tenormin (beta rené)] 100 mg PO DAILY 05/20/17 Levothyroxine [Synthroid] 75 mcg PO DAILY #30 tab 10/23/17 traMADol [Ultram] 50 mg PO TID PRN PRN #20 tab 10/23/17 Primary Care Physician: Care Physician,No Primary [Primary Care Provider] - Please Follow Up With: Johan Ponce MD - [phone] When: pls follow up to establish PCP relationship Please Follow Up With: Shea Garcia MD When: 1-2 weeks Disposition: [facility] facility Minutes spent on discharge:: 40 Patient Condition:: Stable Medical Necessity - Tobacco Use Smoking Status: Current every day smoker Tobacco Use: Cigarettes Meaningful Use Info Meaningful Use Diagnoses (Choose all that apply): None applicable Code Visit Inpatient E&M: 48176 Disch Hosp
--- NOTE | 2018-09-08 14:43 | DS.PCM_ITS ---
Discharge Date and Diagnosis Date of Admission: 09/03/18 Date of Discharge: 09/08/18 - Primary Discharge Diagnosis acute recurrent pancreatitis alcoholic ketosis and severe anion metabolic acidosis abnormal LFTs hyponatremia - Secondary Discharge Diagnosis Chronic Problems Alcohol abuse (Chronic) pt denies but, ETOH is 111 at admission Hypertension (Chronic) Hypothyroidism (Chronic) Anxiety (Chronic) Fibromyalgia (Chronic) Dysphagia (Chronic) Rheumatoid arthritis (Chronic) never confirmed.....RA is negative.....tells me that she has psoriatic arthritis Psoriasis (Chronic) Chronic back pain (Chronic) osteoarthritis Delusional disorder (Chronic) Bipolar disorder (Chronic) Depression with H/o suicidal attempt (Chronic) Hospital Course and Treatment Imaging Results: Diagnostic Data Chest X-Ray 09/03/18 07:48 IMPRESSION: Normal x-ray examination of the chest. Electronically Signed: Edison Varela, at 8:28 EDT , Service support , Abdomen/Pelvis CT 09/03/18 09:30 IMPRESSION: Distal common bile duct stone versus chronic pancreatitis. There is no biliary dilatation. Consider ultrasound and/or MRCP for further imaging evaluation. Wall thickening of the distal esophagus with esophagitis versus varices. Hepatomegaly. Electronically Signed: Anil Villatoro MD at 10:54 EDT , Service support , ADDENDUM: 09/03/18 1121 IMPRESSION: Distal common bile duct stone versus chronic pancreatitis. There is no biliary dilatation. Consider ultrasound and/or MRCP for further imaging evaluation. Wall thickening of the distal esophagus with esophagitis versus varices. Hepatomegaly. N.B. : The above information has been verbally conveyed by Anil Villatoro MD to Kristal [id number], on 09/03/2018 11:14:43 (ET). Electronically Signed: Anil Villatoro MD at 10:54 EDT , Service support , ADDENDUM: 09/03/18 1525 IMPRESSION: Distal common bile duct stone versus chronic pancreatitis. There is no biliary dilatation. Consider ultrasound and/or MRCP for further imaging evaluation. Wall thickening of the distal esophagus with esophagitis versus varices. Hepatomegaly. N.B. : The above information has been verbally conveyed by Anil Villatoro MD to Kristal [id number], RN, on 09/03/2018 11:14:43 (ET). Electronically Signed: Anil Villatoro MD at 10:54 EDT , Service support , MRCP 09/03/18 12:41 IMPRESSION: No MR evidence for choledocholithiasis. Electronically Signed: Viky Marie MD at 9:47 EDT , Service support , Operations: None Procedures: None Summary of Care Provided: The patient is a 68 year old F with a past medical history as listed. She was admitted through the ED on September 03, 2018 with a complaint of abdominal pain, nausea and vomiting. She had also been drinking alcohol on a daily basis and her last drink was the morning of admission. She stated that she drank alcohol to relieve her abdominal pain and had been following up with Dr. Garcia of heumatology for her numerous rheumatologic and autoimmune disorders. In the ED, she was tachycardic but otherwise hemodynamically stable. White cell count was elevated at 13,000 and chemistry showed sodium of 135 with bicarb of 9 and anion gap of 27. Lactic acid was also 6.4 and AST was elevated to 25 and ALT to 135 with ALP of 201. Lipase was 3452 and alcohol level is 111. CT of the abdomen and pelvis showed a distal common bile duct stone versus chronic pancreatitis with wall thickening of the distal esophagus and esophagitis versus varices. She was admitted and managed for acute pancreatitis likely due to alcohol and also possibly due to common bile duct stone. She was also managed for DARREL likely pre-renal and severe metabolic acidosis due to alcoholic ketosis as well as dehydration. She was started on IVF for hydration. General surgery was consulted o/a of suspicion for choledocholithiasis, but MRCP done was negative for choledocholithiasis. Lipase trended down and patient was started on a diet which she tolerated. Patient was also started on seroquel for agitation. Hospital stay was further complicated by hypokalemia, hypomagnesemia and low phosphorus which were corrected and resolved. Bicarb trended up to 28 and elevated anion gap resolved. AK also resolving creatinine trended down to 0.35. Patient remained stable and was initially refusing senior care facility. However she later consented to senior care discharge to the TCU on 09/08/2018. Seroquel was discontinued on account of her corrected QT being 518. She is follow-up with her primary care doctor and [employer]iz[employer] administrator. Patient seen and examined prior to discharge. She had no complaints but says she did not think she would take care of herself at home and was now willing to go to a shelter. Review of systems otherwise negative. Labs and vitals reviewed. Home medication reviewed and reconciled. o/e: Vital Signs Height 5 ft 5 in Weight: 142 lb 10.225 oz Weight in Pounds 142.6 lbs Pulse Ox 99 Temperature 98.6 F Pulse Rate 74 Respiratory Rate 16 Blood Pressure [BP] 158/72 Blood Pressure 155/79 Blood Pressure Position [BP] Semi-Fowlers Blood Pressure Position Supine [] General: Alert, Oriented x3, Cooperative, No apparent distress HEENT: Atraumatic, PERRLA, EOMI, Normocephalic Oral: Moist Mucosa Neck: Supple, No JVD, Negative Carotid Bruits Lungs: Clear to auscultation, Normal air movement, No rhonchi, No wheeze, No rales Cardiovascular: Regular rate, Regular Rhythm, Normal S1, Normal S2, No murmurs Abdomen: Bowel Sounds Present, Soft, Non Tender, Non-Distended, No Hepato-sple nomegaly Extremities: No clubbing, No cyanosis, No edema, Capillary Refill Less than 3 Seconds Skin: No rashes, No breakdown Musculoskeletal: No Tenderness to Palpation of Joints or Extremities Lymphatic: No Cervical, Supraclavicular, or Inguinal Adenopathy Neurological: Cranial nerves II-XII grossly intact, Neuro grossly intact, Motor Exam 5/5 strength throughout Psych/Mental Status: Normal Affect, Appropriate, Alert and oriented to time, place, person, mood and affect Plan as described above. - Physical Exam Vital Signs Temp Pulse Resp BP Pulse Ox 98.6 F 74 16 155/79 H 99 09/08/18 08:20 09/08/18 11:00 09/08/18 08:20 09/08/18 08:20 09/08/18 08:20 Oxygen Delivery Method Room Air Weight: 142 lb 10.225 oz Body Mass Index (BMI) 23.3 Finger Stick Blood Glucose 103 Intake and Output for Last 24 Hours 09/06/18 09/07/18 09/08/18 23:59 23:59 23:59 Intake Total 3404 / 3404 2884 / 2884 615 / 615 Balance 3404 / 3404 2884 / 2884 615 / 615 Microbiology Past 72 Hours 09/03/18 08:40 Blood Culture - Final Blood Culture (Wb) - Anticubital Right No growth in 5 days. 09/03/18 08:35 Blood Culture - Final Blood Culture (Wb) - Anticubital Left No growth in 5 days. Laboratory Tests Past 24 Hrs 09/08/18 09/08/18 05:30 05:30 WBC 5.0 RBC 4.01 L Hgb 13.5 Hct 41.3 MCV 103.0 H MCH 33.7 H MCHC 32.7 RDW 13.1 RDW Differential 49.7 H Plt Count 162 MPV 9.5 Immature Gran % (Auto) 0.800 Neut % (Auto) 72.4 H Lymph % (Auto) 14.3 L [place] % (Auto) 9.9 Eos % (Auto) 2.2 Baso % (Auto) 0.4 Absolute Neuts (auto) 3.6 Absolute Lymphs (auto) 0.71 L Total Counted Not Reportable Sodium 141 Potassium 4.7 Chloride 106 Carbon Dioxide 27.0 Anion Gap 8 BUN 6 L Creatinine 0.47 L Estim Creat Clear Calc 47.10 Est GFR (MDRD) Af Amer 169 Est GFR (MDRD) Non-Af 140 BUN/Creatinine Ratio 12.8 Glucose 159 H Calcium 9.1 POC Glucose 09/08/18 09/08/18 09/07/18 11:28 06:53 21:28 POC Glucose 199 H 149 H 145 H 09/07/18 16:26 POC Glucose 161 H Discharge Diet: Low fat/ Low Cholesterol Discharge Activity: Return to Normal Activity Weight Bearing Status: Weight bearing as tolerated Call your doctor if you observe: Fever of 101 or Higher, Swelling in the ankles Home Medications: Medications to take at Discharge Atenolol [Tenormin (beta rené)] 100 mg PO DAILY 05/20/17 Levothyroxine [Synthroid] 75 mcg PO DAILY #30 tab 10/23/17 traMADol [Ultram] 50 mg PO TID PRN PRN #20 tab 10/23/17 Primary Care Physician: Care Physician,No Primary [Primary Care Provider] - Please Follow Up With: Johan Ponce MD - [phone] When: pls follow up to establish PCP relationship Please Follow Up With: Shea Garcia MD When: 1-2 weeks Disposition: Assisted facility Minutes spent on discharge:: 40 Patient Condition:: Stable Medical Necessity - Tobacco Use Smoking Status: Current every day smoker Tobacco Use: Cigarettes Meaningful Use Info Meaningful Use Diagnoses (Choose all that apply): None applicable Code Visit Inpatient E&M: 61381 Disch Hosp
== END 2018-09-08 14:02 | disposition skilled nursing facility (03) | DRG 439 ==
LOC: ED 09:50 → ICU 15:43 → PCU 09-05 06:43
PROVIDERS: Internal Medicine Critical Care Medicine; Admitting Provider Internal Medicine; Emergency Provider Emergency Medicine; Visit Provider Student in an Organized Health Care Education/Training Program
DX: K85.90 Acute pancreatitis without necrosis or infection, unspecified (principal); E87.1 Hypo-osmolality and hyponatremia; E87.2 Acidosis; N17.9 Acute kidney failure, unspecified; E03.9 Hypothyroidism, unspecified; E86.0 Dehydration; F10.129 Alcohol abuse with intoxication, unspecified; Y90.5 Blood alcohol level of 100-119 mg/100 ml; M06.4 Inflammatory polyarthropathy; F31.9 Bipolar disorder, unspecified; F22 Delusional disorders; E88.89 Other specified metabolic disorders; R94.5 Abnormal results of liver function studies; G89.29 Other chronic pain; M54.9 Dorsalgia, unspecified; I10 Essential (primary) hypertension; F17.210 Nicotine dependence, cigarettes, uncomplicated
CPT/HCPCS: 36415; 36600; 71046; 74177; 74181; 80048; 80053; 80061; 80307; 80320; 81001; 82009; 82150; 82746; 82803; 82962; 83036; 83605; 83690; 83735; 84100; 84443; 84478; 85025; 85027; 85610; 85730; 86225; 86376; 86800; 87040; 87086; 87641; 93005; 97110; 97162; 97166; 97530; 99285; 99406; J7030; J7040; J7050; J7120; P9612; Q9967; A4216; G0480; J2405; J3490

== ENCOUNTER 2018-09-08 14:05 | Inpatient (IN) | payer MEDICARE, SELFPAY ==
[2018-09-03 11:39] VITALS: BMI 23.3
--- NOTE | 2018-09-08 14:51 | NURSING ---
Pt admitted to room 10 from PCU via wheelchair, oriented to room and call light system explained.
[2018-09-08 15:00] VITALS: BP 135/75; PULSE 76; RESP 20; TEMP 36.8; O2SAT 95
[2018-09-08 15:04] VITALS: BP 135/75; PULSE 76; RESP 20; TEMP 36.8; O2SAT 95
[2018-09-08 15:06] VITALS: BMI 23.4
[2018-09-08 15:12] VITALS: PULSE 76; RESP 18; O2SAT 95
--- NOTE | 2018-09-08 20:03 | PCM.HP.STD ---
Problem List (1) Alcoholic pancreatitis Status: Acute (2) Shock, unspecified Status: Acute (3) Lactic acidosis Status: Acute (4) Alcohol abuse Status: Chronic Comment: pt denies but, ETOH is 111 at admission (5) Hypertension Status: Chronic (6) Hypothyroidism Status: Chronic (7) Anxiety Status: Chronic (8) Fibromyalgia Status: Chronic (9) Psoriasis Status: Chronic (10) Delusional disorder Status: Chronic (11) Bipolar disorder Status: Chronic History of Present Illness Date of Admission: 09/08/18 Chief Complaint: Here for rehabilitation, strengthening, prior to discharge home alone. The patient is a 68 year old Female with below past medical history presented to [facility] Emergency Department 09/03/2018 with nausea, vomiting, diarrhea, body aches. 09/03/2018 EKG sinus tachycardia, possible left atrial enlargement, nonspecific ST&T wave abnormality. 09/03/2018 Chest X-ray normal. 09/03/2018 CT abdomen/pelvis showed common bile duct stone versus chronic pancreatitis, esophagitis versus varices, hepatomegaly. Symptoms x 2 days, Hurts all over, Poor historian. Alcohol breath, body aches. Alcohol level high, lactic acid high, Lipase high, LFT 's high. Urine culture sent. Lactated Ringer's 2 Liters IV bolus. Admit to ICU. 09/03/2018 Admit to ICU. LR for hydration. CIWA for alcohol withdrawal. Dr. Alba consulted for possible common bile duct stone. 09/03/2018 MRCP NEGATIVE for choledocholithiasis. 09/03/2018 Dr. Alba recommended IV fluid resuscitation. Lipase improved from admission. Patient tolerated diet. Seroquel given for agitation, later discontinued for prolonged QT. Hypokalemia, Hypomagnesemia, Hypophosphatemia corrected in hospital. Patient at first refused long term facility placement, but later agreed. 09/08/2018 Admit to TCU with debility, here for rehabilitation, strengthening, prior to discharge home. This is her second admission to TCU. Past Medical History Past Medical History (Chronic Problems): Chronic Problems Alcohol abuse (Chronic) pt denies but, ETOH is 111 at admission Hypertension (Chronic) Hypothyroidism (Chronic) Anxiety (Chronic) Fibromyalgia (Chronic) Dysphagia (Chronic) Rheumatoid arthritis (Chronic) never confirmed.....RA is negative.....tells me that she has psoriatic arthritis Psoriasis (Chronic) Chronic back pain (Chronic) osteoarthritis Delusional disorder (Chronic) Bipolar disorder (Chronic) Depression with H/o suicidal attempt (Chronic) Allergies nickel [Nickel] Allergy (Verified 09/03/18 07:23) Rash prochlorperazine edisylate [From Compazine] Adverse Reaction (Verified 09/03/18 07:23) disoriented prochlorperazine maleate [From Compazine] Adverse Reaction (Verified 09/03/18 07:23) DISORIENTED Home Medications: Ambulatory Orders Medication Instructions Recorded Atenolol [Tenormin (beta rené)] 100 mg PO DAILY 05/20/17 Levothyroxine [Synthroid] 75 mcg PO DAILY #30 tab 10/23/17 traMADol [Ultram] 50 mg PO TID PRN PRN #20 tab 10/23/17 Surgical History: no surgical history Psychiatric History: Anxiety, Bipolar, Depression 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 Lives: Alone Smoking Status: Current every day smoker Tobacco Use: Cigarettes Alcohol: Heavy Drugs: None - *Family History Maternal History Items: Unknown, No pertinent history Paternal History Items: Unknown Review of Systems Constitutional: Denies: Chills, Fever, Weight Change HEENT: Denies: Head Aches, Sinus Congestion, Sinus Drainage Cardiovascular: Denies: Chest Pain, Palpitations Respiratory: Denies: Cough, Shortness of breath at rest, Sputum production Gastrointestinal: Denies: Abdominal Pain, Nausea, Vomiting Genitourinary: Denies: Dysuria Musculoskeletal: Denies: Joint Pain, Joint Tenderness Skin: Denies: Rash, Wounds Neurological: Denies: Numbness, Tingling, Focal weakness Psychiatric: Denies: Anxiety, Depression, Homicidal Ideations, Suicidal Ideations Hematologic/ Lymphatic: Denies: Easy Bruising, Easy Bleeding VTE Information - Inpt Only VTE Present on Admission: No VTE Mechan Device Prophylaxis: Knee High NGUYEN Hose VTE Pharm Prophylaxis ordered?: Yes Patient Problems: Active and Suspected Problems Alcoholic pancreatitis (Acute) - Physical Exam General: Alert, Oriented x3, Cooperative HEENT: Atraumatic, PERRLA, EOMI, Normocephalic Neck: Supple, No JVD, Negative Carotid Bruits Lungs: Clear to auscultation, Normal air movement Cardiovascular: Regular rate, No murmurs Abdomen: Bowel Sounds Present, Soft, Non Tender Extremities: No edema, Capillary Refill Less than 3 Seconds Skin: No rashes, No breakdown Musculoskeletal: No Tenderness to Palpation of Joints or Extremities Neurological: Cranial nerves II-XII grossly intact Psych/Mental Status: Normal Affect, Appropriate Vital Signs Temp Pulse Resp BP Pulse Ox 98.2 F 76 18 135/75 H 95 09/08/18 15:04 09/08/18 15:12 09/08/18 15:12 09/08/18 15:04 09/08/18 15:12 Oxygen Delivery Method Room Air Weight: 64 kg Body Mass Index (BMI) 23.4 Finger Stick Blood Glucose 103 Assessment/Plan All Active Problems Acute recurrent pancreatitis (Acute) Shock, unspecified (Acute) Lactic acidosis (Acute) Alcohol intoxication in active alcoholic with complication (Acute) Alcoholic ketosis (Acute) Metabolic acidosis (Acute) Dehydration (Acute) Abnormal LFTs (Acute) Alcoholic pancreatitis (Acute) 68 year old female with below past medical history hospitalized for acute pancreatitis secondary to alcohol, choledocholithiasis ruled out, admitted to TCU with debility, here for rehabilitation, strengthening, prior to discharge home alone. Debility - PT/OT. Dysphagia - ST. Pain - Tylenol 1000MG Q8H PRN mild pain, Tramadol 50MG TID PRN moderate pain. Bowel - Miralax 17GM daily, Senna/colace 1 tablet BID, Dulcolax 10MG daily PRN. Pneumonia vaccination - Administer Prevnar 13 and/or Pneumovax 23 as necessary. DVT prophylaxis - Lovenox 40MG SC daily. Hypertension - Atenolol 100MG daily. Hypothyroidism - Levothyroxine 75MCG daily. Skin irritation - Calmoseptine TID bilateral buttocks. Alcohol use disorder - recommend 180 for alcohol cessation. Delusional disorder - Resident as delusion about having rheumatologic disorder and/or autoimmune disorder. She would benefit from cognitive behavioral therapy. Bipolar disorder/Depression/Anxiety - She would benefit from intense psychiatric care, but she would likely refuse, and psychiatric care in [facility] is often challenging to find.
--- NOTE | 2018-09-08 20:10 | HP.PCM_ITS ---
Problem List (1) Alcoholic pancreatitis Status: Acute (2) Shock, unspecified Status: Acute (3) Lactic acidosis Status: Acute (4) Alcohol abuse Status: Chronic Comment: pt denies but, ETOH is 111 at admission (5) Hypertension Status: Chronic (6) Hypothyroidism Status: Chronic (7) Anxiety Status: Chronic (8) Fibromyalgia Status: Chronic (9) Psoriasis Status: Chronic (10) Delusional disorder Status: Chronic (11) Bipolar disorder Status: Chronic History of Present Illness Date of Admission: 09/08/18 Chief Complaint: Here for rehabilitation, strengthening, prior to discharge home alone. The patient is a 68 year old Female with below past medical history presented to [facility] Emergency Department 09/03/2018 with nausea, vomiting, diarrhea, body aches. 09/03/2018 EKG sinus tachycardia, possible left atrial enlargement, nonspecific ST&T wave abnormality. 09/03/2018 Chest X-ray normal. 09/03/2018 CT abdomen/pelvis showed common bile duct stone versus chronic pancreatitis, esophagitis versus varices, hepatomegaly. Symptoms x 2 days, Hurts all over, Poor historian. Alcohol breath, body aches. Alcohol level high, lactic acid high, Lipase high, LFT 's high. Urine culture sent. Lactated Ringer's 2 Liters IV bolus. Admit to ICU. 09/03/2018 Admit to ICU. LR for hydration. CIWA for alcohol withdrawal. Dr. Alba consulted for possible common bile duct stone. 09/03/2018 MRCP NEGATIVE for choledocholithiasis. 09/03/2018 Dr. Alba recommended IV fluid resuscitation. Lipase improved from admission. Patient tolerated diet. Seroquel given for agitation, later discontinued for prolonged QT. Hypokalemia, Hypomagnesemia, Hypophosphatemia corrected in hospital. Patient at first refused senior living facility placement, but later agreed. 09/08/2018 Admit to TCU with debility, here for rehabilitation, strengthening, prior to discharge home. This is her second admission to TCU. Past Medical History Past Medical History (Chronic Problems): Chronic Problems Alcohol abuse (Chronic) pt denies but, ETOH is 111 at admission Hypertension (Chronic) Hypothyroidism (Chronic) Anxiety (Chronic) Fibromyalgia (Chronic) Dysphagia (Chronic) Rheumatoid arthritis (Chronic) never confirmed.....RA is negative.....tells me that she has psoriatic arthritis Psoriasis (Chronic) Chronic back pain (Chronic) osteoarthritis Delusional disorder (Chronic) Bipolar disorder (Chronic) Depression with H/o suicidal attempt (Chronic) Allergies nickel [Nickel] Allergy (Verified 09/03/18 07:23) Rash prochlorperazine edisylate [From Compazine] Adverse Reaction (Verified 09/03/18 07:23) disoriented prochlorperazine maleate [From Compazine] Adverse Reaction (Verified 09/03/18 07:23) DISORIENTED Home Medications: Ambulatory Orders Medication Instructions Recorded Atenolol [Tenormin (beta rené)] 100 mg PO DAILY 05/20/17 Levothyroxine [Synthroid] 75 mcg PO DAILY #30 tab 10/23/17 traMADol [Ultram] 50 mg PO TID PRN PRN #20 tab 10/23/17 Surgical History: no surgical history Psychiatric History: Anxiety, Bipolar, Depression CAT SCAN TECH History: No pertinent CAT SCAN TECH history Lives: Alone Smoking Status: Current every day smoker Tobacco Use: Cigarettes Alcohol: Heavy Drugs: None - *Family History Maternal History Items: Unknown, No pertinent history Paternal History Items: Unknown Review of Systems Constitutional: Denies: Chills, Fever, Weight Change HEENT: Denies: Head Aches, Sinus Congestion, Sinus Drainage Cardiovascular: Denies: Chest Pain, Palpitations Respiratory: Denies: Cough, Shortness of breath at rest, Sputum production Gastrointestinal: Denies: Abdominal Pain, Nausea, Vomiting Genitourinary: Denies: Dysuria Musculoskeletal: Denies: Joint Pain, Joint Tenderness Skin: Denies: Rash, Wounds Neurological: Denies: Numbness, Tingling, Focal weakness Psychiatric: Denies: Anxiety, Depression, Homicidal Ideations, Suicidal Ideations Hematologic/ Lymphatic: Denies: Easy Bruising, Easy Bleeding VTE Information - Inpt Only VTE Present on Admission: No VTE Mechan Device Prophylaxis: Knee High NGUYEN Hose VTE Pharm Prophylaxis ordered?: Yes Patient Problems: Active and Suspected Problems Alcoholic pancreatitis (Acute) - Physical Exam General: Alert, Oriented x3, Cooperative HEENT: Atraumatic, PERRLA, EOMI, Normocephalic Neck: Supple, No JVD, Negative Carotid Bruits Lungs: Clear to auscultation, Normal air movement Cardiovascular: Regular rate, No murmurs Abdomen: Bowel Sounds Present, Soft, Non Tender Extremities: No edema, Capillary Refill Less than 3 Seconds Skin: No rashes, No breakdown Musculoskeletal: No Tenderness to Palpation of Joints or Extremities Neurological: Cranial nerves II-XII grossly intact Psych/Mental Status: Normal Affect, Appropriate Vital Signs Temp Pulse Resp BP Pulse Ox 98.2 F 76 18 135/75 H 95 09/08/18 15:04 09/08/18 15:12 09/08/18 15:12 09/08/18 15:04 09/08/18 15:12 Oxygen Delivery Method Room Air Weight: 64 kg Body Mass Index (BMI) 23.4 Finger Stick Blood Glucose 103 Assessment/Plan All Active Problems Acute recurrent pancreatitis (Acute) Shock, unspecified (Acute) Lactic acidosis (Acute) Alcohol intoxication in active alcoholic with complication (Acute) Alcoholic ketosis (Acute) Metabolic acidosis (Acute) Dehydration (Acute) Abnormal LFTs (Acute) Alcoholic pancreatitis (Acute) 68 year old female with below past medical history hospitalized for acute pancreatitis secondary to alcohol, choledocholithiasis ruled out, admitted to TCU with debility, here for rehabilitation, strengthening, prior to discharge home alone. * Debility - PT/OT. * Dysphagia - ST. * Pain - Tylenol 1000MG Q8H PRN mild pain, Tramadol 50MG TID PRN moderate pain. * Bowel - Miralax 17GM daily, Senna/colace 1 tablet BID, Dulcolax 10MG daily PRN. * Pneumonia vaccination - Administer Prevnar 13 and/or Pneumovax 23 as necessary. * DVT prophylaxis - Lovenox 40MG SC daily. * Hypertension - Atenolol 100MG daily. * Hypothyroidism - Levothyroxine 75MCG daily. * Skin irritation - Calmoseptine TID bilateral buttocks. * Alcohol use disorder - recommend 180 for alcohol cessation. * Delusional disorder - Resident as delusion about having rheumatologic disorder and/or autoimmune disorder. She would benefit from cognitive behavioral therapy. * Bipolar disorder/Depression/Anxiety - She would benefit from intense psychiatric care, but she would likely refuse, and psychiatric care in [facility] is often challenging to find.
[2018-09-08] MEDS: traMADol 50 MG Tablet PO (21:13)
[2018-09-08] MEDS: Menthol/Lanolin/Calamine/Znox 113 GM Tube 1 APPLIC TOPICAL (21:14)
--- NOTE | 2018-09-08 23:43 | NURSING ---
Addendum entered by Sarah Ceja 09/09/18 00:06: Per BLOCK TESTER pt found self-transferring in room, personal alarm applied. Original Note: BLOCK TESTER informed RN at 2100 pt walked out to nurses station without calling for assistance, self transferring. Pt's only wearing hospital gown with buttocks exposed refusing to return to room with BLOCK TESTER until pt spoke with RN. RN directly to address pt's concerns. Pt requesting pain medication. Pt provided medication and assisted back to room. RN educated pt on importance of calling for assistance with transfer pt yelled at RN, This thing doesn't work, holding up the call light. When pt pushed the red, nurse button on the call light, the yellow light on the display for the call system was activated. RN informed pt the light was activated on the wall showing a call has been placed. As pt held the call light up to ear, she disagreed with RN saying, NO! It does not work. No one is answering. Meanwhile, BLOCK TESTER entered room and asked if help was needed. RN informed pt the call for help was placed, as the aide walked by the room, the light was seen and help arrived. Pt continued to disagree. BLOCK TESTER went to the nurses' station and answered the call, via telecom to provide pt with the satisfaction the call light is working properly. Pt continued to complain about the call system and informed RN is was not working before. RN informed pt it is working now, the call system was test by pt, BLOCK TESTER and RN. RN reminded pt, pt needs to call for assistance with transfers, or further safety interventions will be implemented, personal alarm. Will continue to monitor and asses.
[2018-09-09] MEDS: Senna/Docusate Sodium 1 Tablet PO (05:45)
[2018-09-09] MEDS: Atenolol 100 MG Tablet PO (05:45)
[2018-09-09] MEDS: Menthol/Lanolin/Calamine/Znox 113 GM Tube 1 APPLIC TOPICAL ×3 (05:45→19:58)
[2018-09-09] MEDS: Enoxaparin 40 MG/0.4 ML Syringe SC (05:45)
[2018-09-09] MEDS: Levothyroxine 75 MCG Tablet PO (05:45)
[2018-09-09] MEDS: traMADol 50 MG Tablet PO ×3 (05:45→16:05)
[2018-09-09 06:27] LABS: Absolute Lymphocyte Count 0.69 X10^3/ul (0.83-4.51); Absolute Neutrophil Count 5.2 X10^3/uL (2.0-7.7); Basophil# 0.02 X10^3/uL; Basophil% 0.3 % (0-1); Eosinophil# 0.13 X10^3/uL; Eosinophils% 1.9 % (0-5); Hematocrit 40.3 % (37-47); Hemoglobin 13.2 g/dl (12.0-15.0); Lymphocyte # 0.69 X10^3/ul (4.0); Lymphocyte % 10.1 % (19-41); Mean Corp Hgb Conc 32.8 g/gl (32-36); Mean Corpuscular Hgb 33.5 pg (27.0-32.0); Mean Corpuscular Volume 102.3 fL (81-99); Mean Platelet Vol. 9.4 fl (6.2-12.0); Monocyte# 0.71 X10^3/uL; Monocyte% 10.3 % (0-10); Neutrophil # 5.24 X10^3/uL (2.7-7.7); Neutrophil % 76.4 % (47-70); Platelet Count 224 K/mm3 (150-450); RBC Distribution Width CV 12.8 % (11.6-14.6); RBC Distribution Width SD 47.2 fl (35.1-43.9); Red Blood Count 3.94 M/mm3 (4.2-5.4); White Blood Count 6.9 K/mm3 (4.4-11.0)
[2018-09-09 06:31] LABS: Anion Gap 6 (5-15); BUN 10 mg/dL (7-18); Calcium,Total 8.9 mg/dL (8.5-10.1); Chloride 103 mmol/L (98-107); Creatinine, Serum 0.48 mg/dL (0.55-1.02); EST Glomerular Filtration Rate 137 mL/min (>60); Est Glom Filt Rate - Afr Amer 166 mL/min (>60); Glucose 147 mg/dL (74-106); Potassium 3.9 mmol/L (3.5-5.1); Sodium Level 136 mmol/L (136-145)
[2018-09-09 06:35] LABS: POSITIVE COUNT NO; POSITIVE DIFFERENTIAL NO; POSITIVE MORPHOLOGY NO
[2018-09-09 10:59] VITALS: PULSE 85; RESP 18; O2SAT 97
[2018-09-09] MEDS: Tuberculin,Purif.prot.deriv. 50 TU/ML Vial 5 ML ID (13:24)
[2018-09-09 15:08] VITALS: BP 119/69; PULSE 75; RESP 24; TEMP 36.2; O2SAT 98
--- NOTE | 2018-09-09 18:35 | NURSING ---
pt requesting antihistamine for runny nose and watering eyes. new order for claritin daily, ok to give dose now.
[2018-09-09] MEDS: Loratadine 10 MG Tablet PO (19:57)
[2018-09-10] MEDS: Loratadine 10 MG Tablet PO (06:22)
[2018-09-10] MEDS: Enoxaparin 40 MG/0.4 ML Syringe SC (06:22)
[2018-09-10] MEDS: Menthol/Lanolin/Calamine/Znox 113 GM Tube 1 APPLIC TOPICAL ×3 (06:22→20:40)
[2018-09-10] MEDS: Atenolol 100 MG Tablet PO (06:23)
[2018-09-10] MEDS: Levothyroxine 75 MCG Tablet PO (06:23)
[2018-09-10 06:24] VITALS: BP 140/62; PULSE 63
[2018-09-10] MEDS: traMADol 50 MG Tablet PO ×3 (06:29→20:59)
--- NOTE | 2018-09-10 10:25 | PCM.PN.RX ---
<Hal Galvez D - Last Filed: 09/10/18 10:25> Progress Note - Pharmacy Subjective: TCU Admission Objective: Allergies nickel [Nickel] Allergy (Verified 09/03/18 07:23) Rash prochlorperazine edisylate [From Compazine] Adverse Reaction (Verified 09/03/18 07:23) disoriented prochlorperazine maleate [From Compazine] Adverse Reaction (Verified 09/03/18 07:23) DISORIENTED Current Medications Generic Name Dose Route Start Last Admin Trade Name Freq PRN Reason Stop Dose Admin Acetaminophen 1,000 mg 09/08/18 20:19 Tylenol PO Q8H PRN PRN MILD PAIN (1-3/10) Atenolol 100 mg 09/09/18 06:00 09/10/18 06:23 Tenormin (Beta Terry) PO 100 mg DAILY JAYLON Administration Bisacodyl 10 mg 09/08/18 15:00 Dulcolax PO DAILY PRN constipation Calamine/Phenol 1 applic 09/08/18 22:00 09/10/18 06:22 Calmoseptine Ointment TOPICAL 1 applicatio TID JAYLON Administration Protocol Enoxaparin Sodium 40 mg 09/09/18 06:00 09/10/18 06:22 Lovenox SC 40 mg DAILY@0600 [facility] Administration Levothyroxine Sodium 75 mcg 09/09/18 06:00 09/10/18 06:23 Synthroid PO 75 mcg DAILY JAYLON Administration Loratadine 10 mg 09/09/18 19:00 09/10/18 06:22 Claritin PO 10 mg DAILY JAYLON Administration Nutritional Formula (Lactose Free) 120 ml 09/09/18 17:00 09/10/18 06:22 Ensure Enlive PO 120 ml 4X/DAY [facility] Administration Polyethylene Glycol 17 gm 09/09/18 06:00 09/10/18 06:23 Miralax PO Not Given DAILY [facility] Senna/Docusate Sodium 1 tablet 09/09/18 06:00 09/10/18 06:23 Senokot-S, Emely-Colace PO Not Given BID [facility] Tramadol HCl 50 mg 09/08/18 14:53 09/10/18 06:29 Ultram PO 50 mg TID PRN PRN Administration MODERATE PAIN (4-5/10) Tuberculin PPD 5 tu 09/16/18 10:00 Tubersol, Aplisol, Ppd ID 09/16/18 10:01 X1 ONE Problem List Alcoholic pancreatitis (Acute) Vital Signs Temp Pulse Resp BP Pulse Ox 97.1 F L 63 24 H 140/62 H 98 09/09/18 15:08 09/10/18 06:24 09/09/18 15:08 09/10/18 06:24 09/09/18 15:08 Oxygen Delivery Method Room Air Weight: 64 kg Body Mass Index (BMI) 23.4 Finger Stick Blood Glucose 103 Sodium 136 mmol/L (136-145) 09/09/18 05:30 Potassium 3.9 mmol/L (3.5-5.1) 09/09/18 05:30 Chloride 103 mmol/L (98-107) 09/09/18 05:30 Carbon Dioxide 27.0 mmol/L (21.0-32.0) 09/09/18 05:30 Anion Gap 6 (5-15) 09/09/18 05:30 BUN 10 mg/dL (7-18) 09/09/18 05:30 Creatinine 0.48 mg/dL (0.55-1.02) L 09/09/18 05:30 Est GFR (MDRD) Af Amer 166 mL/min (>60) 09/09/18 05:30 Est GFR (MDRD) Non-Af 137 mL/min (>60) 09/09/18 05:30 BUN/Creatinine Ratio 21.0 RATIO (10-20) H 09/09/18 05:30 Glucose 147 mg/dL (74-106) H 09/09/18 05:30 Assessment/Plan: 1) Pain APAP for mild pain, tramadol for moderate pain. Continue to monitor daily pain scores, prn medication use. 2) HTN Atenolol. Continue to monitor BP/HR. 3) Hypothyroidism Levothyroxine. Continue to monitor s/s hyper/hypothyroidism. 4) DVT PPx Enoxaparin. Continue to monitor for bleeding/clot. Psychotropic Medications: None Unnecessary Medications: None Bowel Regimen: 5) Senna/s, PEG, prn bisacodyl. Continue to monitor prn medication use, for constipation/diarrhea. Date of Note:: 09/10/18 - Provider Comments Provider responsibility: Provider responsible to enter orders to implement recommendations <Brant Howard Chi - Last Filed: 09/10/18 20:08> Progress Note - Pharmacy Subjective: [] Objective: Allergies nickel [Nickel] Allergy (Verified 09/03/18 07:23) Rash prochlorperazine edisylate [From Compazine] Adverse Reaction (Verified 09/03/18 07:23) disoriented prochlorperazine maleate [From Compazine] Adverse Reaction (Verified 09/03/18 07:23) DISORIENTED Current Medications Generic Name Dose Route Start Last Admin Trade Name Freq PRN Reason Stop Dose Admin Acetaminophen 1,000 mg 09/08/18 20:19 09/10/18 11:31 Tylenol PO 1,000 mg Q8H PRN PRN Administration MILD PAIN (1-3/10) Atenolol 100 mg 09/09/18 06:00 09/10/18 06:23 Tenormin (Beta Terry) PO 100 mg DAILY JAYLON Administration Bisacodyl 10 mg 09/08/18 15:00 Dulcolax PO DAILY PRN constipation Calamine/Phenol 1 applic 09/08/18 22:00 09/10/18 11:32 Calmoseptine Ointment TOPICAL 1 applicatio TID JAYLON Administration Protocol Enoxaparin Sodium 40 mg 09/09/18 06:00 09/10/18 06:22 Lovenox SC 40 mg DAILY@0600 JAYLON Administration Levothyroxine Sodium 75 mcg 09/09/18 06:00 09/10/18 06:23 Synthroid PO 75 mcg DAILY JAYLON Administration Loratadine 10 mg 09/09/18 19:00 09/10/18 06:22 Claritin PO 10 mg DAILY JAYLON Administration Nutritional Formula (Lactose Free) 120 ml 09/09/18 17:00 09/10/18 17:05 Ensure Enlive PO Not Given 4X/DAY [facility] Polyethylene Glycol 17 gm 09/09/18 06:00 09/10/18 06:23 Miralax PO Not Given DAILY [facility] Senna/Docusate Sodium 1 tablet 09/09/18 06:00 09/10/18 17:06 Senokot-S, Emely-Colace PO Not Given BID [facility] Tramadol HCl 50 mg 09/08/18 14:53 09/10/18 12:43 Ultram PO 50 mg TID PRN PRN Administration MODERATE PAIN (4-5/10) Tuberculin PPD 5 tu 09/16/18 10:00 Tubersol, Aplisol, Ppd ID 09/16/18 10:01 X1 ONE Problem List Alcoholic pancreatitis (Acute) Vital Signs Temp Pulse Resp BP Pulse Ox 97.5 F L 59 L 18 127/64 H 97 09/10/18 15:45 09/10/18 15:45 09/10/18 15:45 09/10/18 15:45 09/10/18 15:45 Oxygen Delivery Method Room Air Weight: 64 kg Body Mass Index (BMI) 23.4 Finger Stick Blood Glucose 103 Sodium 136 mmol/L (136-145) 09/09/18 05:30 Potassium 3.9 mmol/L (3.5-5.1) 09/09/18 05:30 Chloride 103 mmol/L (98-107) 09/09/18 05:30 Carbon Dioxide 27.0 mmol/L (21.0-32.0) 09/09/18 05:30 Anion Gap 6 (5-15) 09/09/18 05:30 BUN 10 mg/dL (7-18) 09/09/18 05:30 Creatinine 0.48 mg/dL (0.55-1.02) L 09/09/18 05:30 Est GFR (MDRD) Af Amer 166 mL/min (>60) 09/09/18 05:30 Est GFR (MDRD) Non-Af 137 mL/min (>60) 09/09/18 05:30 BUN/Creatinine Ratio 21.0 RATIO (10-20) H 09/09/18 05:30 Glucose 147 mg/dL (74-106) H 09/09/18 05:30 Assessment/Plan: Psychotropic Medications: Unnecessary Medications: Bowel Regimen: - Provider Comments Provider responsibility: Provider responsible to enter orders to implement recommendations Provider Comments to Recommendations by Pharmacy: Agree
--- NOTE | 2018-09-10 10:29 | PHA.CONS_ITS ---
<Hal Galvez D - Last Filed: 09/10/18 10:25> Progress Note - Pharmacy Subjective: TCU Admission Objective: Allergies nickel [Nickel] Allergy (Verified 09/03/18 07:23) Rash prochlorperazine edisylate [From Compazine] Adverse Reaction (Verified 09/03/18 07:23) disoriented prochlorperazine maleate [From Compazine] Adverse Reaction (Verified 09/03/18 07:23) DISORIENTED Current Medications Generic Name Dose Route Start Last Admin Trade Name Freq PRN Reason Stop Dose Admin Acetaminophen 1,000 mg 09/08/18 20:19 Tylenol PO Q8H PRN PRN MILD PAIN (1-3/10) Atenolol 100 mg 09/09/18 06:00 09/10/18 06:23 Tenormin (Beta Terry) PO 100 mg DAILY JAYLON Administration Bisacodyl 10 mg 09/08/18 15:00 Dulcolax PO DAILY PRN constipation Calamine/Phenol 1 applic 09/08/18 22:00 09/10/18 06:22 Calmoseptine Ointment TOPICAL 1 applicatio TID JAYLON Administration Protocol Enoxaparin Sodium 40 mg 09/09/18 06:00 09/10/18 06:22 Lovenox SC 40 mg DAILY@0600 [facility] Administration Levothyroxine Sodium 75 mcg 09/09/18 06:00 09/10/18 06:23 Synthroid PO 75 mcg DAILY JAYLON Administration Loratadine 10 mg 09/09/18 19:00 09/10/18 06:22 Claritin PO 10 mg DAILY JAYLON Administration Nutritional Formula (Lactose Free) 120 ml 09/09/18 17:00 09/10/18 06:22 Ensure Enlive PO 120 ml 4X/DAY [facility] Administration Polyethylene Glycol 17 gm 09/09/18 06:00 09/10/18 06:23 Miralax PO Not Given DAILY [facility] Senna/Docusate Sodium 1 tablet 09/09/18 06:00 09/10/18 06:23 Senokot-S, Emely-Colace PO Not Given BID [facility] Tramadol HCl 50 mg 09/08/18 14:53 09/10/18 06:29 Ultram PO 50 mg TID PRN PRN Administration MODERATE PAIN (4-5/10) Tuberculin PPD 5 tu 09/16/18 10:00 Tubersol, Aplisol, Ppd ID 09/16/18 10:01 X1 ONE Problem List Alcoholic pancreatitis (Acute) Vital Signs Temp Pulse Resp BP Pulse Ox 97.1 F L 63 24 H 140/62 H 98 09/09/18 15:08 09/10/18 06:24 09/09/18 15:08 09/10/18 06:24 09/09/18 15:08 Oxygen Delivery Method Room Air Weight: 64 kg Body Mass Index (BMI) 23.4 Finger Stick Blood Glucose 103 Sodium 136 mmol/L (136-145) 09/09/18 05:30 Potassium 3.9 mmol/L (3.5-5.1) 09/09/18 05:30 Chloride 103 mmol/L (98-107) 09/09/18 05:30 Carbon Dioxide 27.0 mmol/L (21.0-32.0) 09/09/18 05:30 Anion Gap 6 (5-15) 09/09/18 05:30 BUN 10 mg/dL (7-18) 09/09/18 05:30 Creatinine 0.48 mg/dL (0.55-1.02) L 09/09/18 05:30 Est GFR (MDRD) Af Amer 166 mL/min (>60) 09/09/18 05:30 Est GFR (MDRD) Non-Af 137 mL/min (>60) 09/09/18 05:30 BUN/Creatinine Ratio 21.0 RATIO (10-20) H 09/09/18 05:30 Glucose 147 mg/dL (74-106) H 09/09/18 05:30 Assessment/Plan: 1) Pain APAP for mild pain, tramadol for moderate pain. Continue to monitor daily pain scores, prn medication use. 2) HTN Atenolol. Continue to monitor BP/HR. 3) Hypothyroidism Levothyroxine. Continue to monitor s/s hyper/hypothyroidism. 4) DVT PPx Enoxaparin. Continue to monitor for bleeding/clot. Psychotropic Medications: None Unnecessary Medications: None Bowel Regimen: 5) Senna/s, PEG, prn bisacodyl. Continue to monitor prn medication use, for constipation/diarrhea. Date of Note:: 09/10/18 - Provider Comments Provider responsibility: Provider responsible to enter orders to implement recommendations <Brant Howard Chi - Last Filed: 09/10/18 20:08> Progress Note - Pharmacy Subjective: [] Objective: Allergies nickel [Nickel] Allergy (Verified 09/03/18 07:23) Rash prochlorperazine edisylate [From Compazine] Adverse Reaction (Verified 09/03/18 07:23) disoriented prochlorperazine maleate [From Compazine] Adverse Reaction (Verified 09/03/18 07:23) DISORIENTED Current Medications Generic Name Dose Route Start Last Admin Trade Name Freq PRN Reason Stop Dose Admin Acetaminophen 1,000 mg 09/08/18 20:19 09/10/18 11:31 Tylenol PO 1,000 mg Q8H PRN PRN Administration MILD PAIN (1-3/10) Atenolol 100 mg 09/09/18 06:00 09/10/18 06:23 Tenormin (Beta Terry) PO 100 mg DAILY JAYLON Administration Bisacodyl 10 mg 09/08/18 15:00 Dulcolax PO DAILY PRN constipation Calamine/Phenol 1 applic 09/08/18 22:00 09/10/18 11:32 Calmoseptine Ointment TOPICAL 1 applicatio TID JAYLON Administration Protocol Enoxaparin Sodium 40 mg 09/09/18 06:00 09/10/18 06:22 Lovenox SC 40 mg DAILY@0600 JAYLON Administration Levothyroxine Sodium 75 mcg 09/09/18 06:00 09/10/18 06:23 Synthroid PO 75 mcg DAILY JAYLON Administration Loratadine 10 mg 09/09/18 19:00 09/10/18 06:22 Claritin PO 10 mg DAILY JAYLON Administration Nutritional Formula (Lactose Free) 120 ml 09/09/18 17:00 09/10/18 17:05 Ensure Enlive PO Not Given 4X/DAY [facility] Polyethylene Glycol 17 gm 09/09/18 06:00 09/10/18 06:23 Miralax PO Not Given DAILY [facility] Senna/Docusate Sodium 1 tablet 09/09/18 06:00 09/10/18 17:06 Senokot-S, Emely-Colace PO Not Given BID [facility] Tramadol HCl 50 mg 09/08/18 14:53 09/10/18 12:43 Ultram PO 50 mg TID PRN PRN Administration MODERATE PAIN (4-5/10) Tuberculin PPD 5 tu 09/16/18 10:00 Tubersol, Aplisol, Ppd ID 09/16/18 10:01 X1 ONE Problem List Alcoholic pancreatitis (Acute) Vital Signs Temp Pulse Resp BP Pulse Ox 97.5 F L 59 L 18 127/64 H 97 09/10/18 15:45 09/10/18 15:45 09/10/18 15:45 09/10/18 15:45 09/10/18 15:45 Oxygen Delivery Method Room Air Weight: 64 kg Body Mass Index (BMI) 23.4 Finger Stick Blood Glucose 103 Sodium 136 mmol/L (136-145) 09/09/18 05:30 Potassium 3.9 mmol/L (3.5-5.1) 09/09/18 05:30 Chloride 103 mmol/L (98-107) 09/09/18 05:30 Carbon Dioxide 27.0 mmol/L (21.0-32.0) 09/09/18 05:30 Anion Gap 6 (5-15) 09/09/18 05:30 BUN 10 mg/dL (7-18) 09/09/18 05:30 Creatinine 0.48 mg/dL (0.55-1.02) L 09/09/18 05:30 Est GFR (MDRD) Af Amer 166 mL/min (>60) 09/09/18 05:30 Est GFR (MDRD) Non-Af 137 mL/min (>60) 09/09/18 05:30 BUN/Creatinine Ratio 21.0 RATIO (10-20) H 09/09/18 05:30 Glucose 147 mg/dL (74-106) H 09/09/18 05:30 Assessment/Plan: Psychotropic Medications: Unnecessary Medications: Bowel Regimen: - Provider Comments Provider responsibility: Provider responsible to enter orders to implement recommendations Provider Comments to Recommendations by Pharmacy: Agree
[2018-09-10] MEDS: Acetaminophen 500 MG Tablet 1000 MG PO (11:31)
--- NOTE | 2018-09-10 15:39 | CHAPLAIN ---
Type of Pastoral Visit _x__ Initial Visit ___ Follow-up Visit ___ On-call Visit ___ General Patient Visit ___ Spiritual Assessment ___ Family Conference ___ Bereavement ___ Rapid Response ___ Code Blue ___ Other (describe below) Pastoral Care Referral From _x__ Patient ___ Family ___ Nurse ___ Physician ___ Materials And Processes Manager ___ Field Service Representative ___ Other (describe below) Sacrament/Intervention _x__ Active listening ___ Anointing ___ Shinto ___ Bereavement ___ Communion _x__ Litzy exploration ___ _x__ Life review _x__ Prayer ___ Reconciliation ___ Sacrament of Sick _x__ Supportive presence ___ Wedding ___ Other (describe below) Pastoral Comments
[2018-09-10 15:45] VITALS: BP 127/64; PULSE 59; RESP 18; TEMP 36.4; O2SAT 97
[2018-09-11] MEDS: Senna/Docusate Sodium 1 Tablet PO (04:39)
[2018-09-11] MEDS: Menthol/Lanolin/Calamine/Znox 113 GM Tube 1 APPLIC TOPICAL ×3 (04:39→21:23)
[2018-09-11] MEDS: Loratadine 10 MG Tablet PO (04:39)
[2018-09-11] MEDS: Levothyroxine 75 MCG Tablet PO (04:39)
[2018-09-11] MEDS: Atenolol 100 MG Tablet PO (04:39)
[2018-09-11] MEDS: Enoxaparin 40 MG/0.4 ML Syringe SC (04:39)
[2018-09-11] MEDS: traMADol 50 MG Tablet PO ×3 (04:42→18:15)
--- NOTE | 2018-09-11 08:15 | PCA ---
Patient applied Peggy to arms and face, explained to pt that the peggy ointment was for her bottom area pt stated that she knew she wanted to see if it would help with her psoriasis
--- NOTE | 2018-09-11 11:39 | NURSING ---
PT COMPLAINED OF NAUSEA. REPORTED TO LEYDA CHOWDHURY
[2018-09-11 16:00] VITALS: BP 130/65; PULSE 60; RESP 16; TEMP 36.6; O2SAT 97
[2018-09-11] MEDS: Ondansetron ODT 4 MG Tablet PO (16:42)
[2018-09-12] MEDS: Senna/Docusate Sodium 1 Tablet PO (06:08)
[2018-09-12] MEDS: Atenolol 100 MG Tablet PO (06:08)
[2018-09-12] MEDS: Loratadine 10 MG Tablet PO (06:09)
[2018-09-12] MEDS: Enoxaparin 40 MG/0.4 ML Syringe SC (06:09)
[2018-09-12] MEDS: Menthol/Lanolin/Calamine/Znox 113 GM Tube 1 APPLIC TOPICAL ×3 (06:09→20:09)
[2018-09-12] MEDS: Levothyroxine 75 MCG Tablet PO (06:12)
[2018-09-12] MEDS: traMADol 50 MG Tablet PO ×3 (06:54→20:07)
[2018-09-12 14:51] VITALS: BP 112/70; PULSE 68; RESP 16; TEMP 36.4; O2SAT 100
[2018-09-13 05:30] VITALS: BP 127/74; PULSE 64
[2018-09-13] MEDS: Menthol/Lanolin/Calamine/Znox 113 GM Tube 1 APPLIC TOPICAL ×3 (05:33→19:58)
[2018-09-13] MEDS: Atenolol 100 MG Tablet PO (05:34)
[2018-09-13] MEDS: Levothyroxine 75 MCG Tablet PO (05:34)
[2018-09-13] MEDS: Senna/Docusate Sodium 1 Tablet PO (05:34)
[2018-09-13] MEDS: Enoxaparin 40 MG/0.4 ML Syringe SC (05:34)
[2018-09-13] MEDS: Loratadine 10 MG Tablet PO (05:34)
[2018-09-13] MEDS: traMADol 50 MG Tablet PO ×3 (05:38→18:50)
[2018-09-13 14:42] VITALS: BP 152/76; PULSE 63; RESP 16; TEMP 36.5; O2SAT 97
[2018-09-13 20:00] VITALS: PULSE 79; O2SAT 97
[2018-09-13] MEDS: Acetaminophen 500 MG Tablet 1000 MG PO (20:04)
[2018-09-14 04:56] VITALS: BP 119/71; PULSE 64
[2018-09-14] MEDS: Menthol/Lanolin/Calamine/Znox 113 GM Tube 1 APPLIC TOPICAL ×3 (04:57→20:45)
[2018-09-14] MEDS: Loratadine 10 MG Tablet PO (04:58)
[2018-09-14] MEDS: Enoxaparin 40 MG/0.4 ML Syringe SC (04:58)
[2018-09-14] MEDS: Levothyroxine 75 MCG Tablet PO (04:58)
[2018-09-14] MEDS: Atenolol 100 MG Tablet PO (04:59)
[2018-09-14] MEDS: traMADol 50 MG Tablet PO ×3 (08:14→20:53)
[2018-09-14 15:54] VITALS: BP 132/72; PULSE 67; RESP 18; TEMP 36.8; O2SAT 97
[2018-09-15] MEDS: Loratadine 10 MG Tablet PO (05:01)
[2018-09-15] MEDS: Menthol/Lanolin/Calamine/Znox 113 GM Tube 1 APPLIC TOPICAL ×3 (05:02→20:18)
[2018-09-15] MEDS: Atenolol 100 MG Tablet PO (05:02)
[2018-09-15] MEDS: Levothyroxine 75 MCG Tablet PO (05:02)
[2018-09-15] MEDS: Enoxaparin 40 MG/0.4 ML Syringe SC (05:02)
[2018-09-15 05:04] VITALS: BP 151/85; PULSE 72; RESP 18
[2018-09-15] MEDS: traMADol 50 MG Tablet PO ×3 (05:07→21:36)
[2018-09-15 10:03] VITALS: PULSE 65; RESP 18; O2SAT 98
--- NOTE | 2018-09-15 12:05 | CASEMGMT ---
BIMS and PHQ9 INTERVIEWS COMPLETED TODAY FOR MDS ASSESSMENT. RHONDA Salazar
[2018-09-15 15:26] VITALS: BP 125/64; PULSE 51; RESP 18; TEMP 36.8; O2SAT 97
[2018-09-16] MEDS: Loratadine 10 MG Tablet PO (06:10)
[2018-09-16] MEDS: Levothyroxine 75 MCG Tablet PO (06:10)
[2018-09-16] MEDS: traMADol 50 MG Tablet PO ×3 (06:10→21:23)
[2018-09-16] MEDS: Enoxaparin 40 MG/0.4 ML Syringe SC (06:10)
[2018-09-16] MEDS: Menthol/Lanolin/Calamine/Znox 113 GM Tube 1 APPLIC TOPICAL ×3 (06:10→20:27)
[2018-09-16] MEDS: Atenolol 100 MG Tablet PO (06:10)
[2018-09-16 06:28] LABS: Absolute Lymphocyte Count 0.66 X10^3/ul (0.83-4.51); Absolute Neutrophil Count 5.9 X10^3/uL (2.0-7.7); Basophil# 0.04 X10^3/uL; Basophil% 0.5 % (0-1); Eosinophil# 0.12 X10^3/uL; Eosinophils% 1.6 % (0-5); Hematocrit 42.5 % (37-47); Hemoglobin 13.8 g/dl (12.0-15.0); Lymphocyte # 0.66 X10^3/ul (4.0); Lymphocyte % 8.9 % (19-41); Mean Corp Hgb Conc 32.5 g/gl (32-36); Mean Corpuscular Hgb 33.7 pg (27.0-32.0); Mean Corpuscular Volume 103.7 fL (81-99); Mean Platelet Vol. 10.2 fl (6.2-12.0); Monocyte# 0.58 X10^3/uL; Monocyte% 7.8 % (0-10); Neutrophil # 5.89 X10^3/uL (2.7-7.7); Neutrophil % 79.2 % (47-70); Platelet Count 352 K/mm3 (150-450); RBC Distribution Width CV 12.3 % (11.6-14.6); RBC Distribution Width SD 45.4 fl (35.1-43.9); White Blood Count 7.4 K/mm3 (4.4-11.0)
[2018-09-16 06:31] LABS: POSITIVE COUNT YES; POSITIVE DIFFERENTIAL NO; POSITIVE MORPHOLOGY YES
[2018-09-16 06:34] LABS: Anion Gap 7 (5-15); BUN 16 mg/dL (7-18); BUN/Creat Ratio 25.6 RATIO (10-20); Calcium,Total 9.3 mg/dL (8.5-10.1); Chloride 105 mmol/L (98-107); Creatinine, Serum 0.63 mg/dL (0.55-1.02); EST Glomerular Filtration Rate 100 mL/min (>60); Est Glom Filt Rate - Afr Amer 121 mL/min (>60); Glucose 142 mg/dL (74-106); Potassium 4.6 mmol/L (3.5-5.1); Sodium Level 139 mmol/L (136-145)
--- NOTE | 2018-09-16 09:51 | CASEMGMT ---
Social Work Plan of care meeting held with pt present. Pt is receiving PT/OT and progressing well. D/C date has been established for this weekend. Pt will need transportation home and would like to use hospital van. D/C date will be dependent on this. Pt has no other d/c needs. SW will inquired with transportation and meet with pt to set d/c date. RHONDA Salazar
[2018-09-16] MEDS: Tuberculin,Purif.prot.deriv. 50 TU/ML Vial 5 ML ID (11:25)
[2018-09-16 12:18] LABS: Pathologist Review Reviewed
--- NOTE | 2018-09-16 13:28 | CASEMGMT ---
Social Work Spoke with pt about discharge. D/C set for Wednesday 09/20. Pt stating that she does not have transportation home. SW provided option to pt that hospital van can take pt home but they do not run on Friday or Friday. Pt can return home on Friday with pt van if she chooses. If pt would like to d/c on Friday, she may and staff could contact a taxi for transportation. Pt choosing to be d/c on Monday 09/18 with transportation arranged with the hospital van. Phone call to transportation and Van to pick pt up at the front entrance at 2:30 on 09/18 and take to her residence. Therapy is no recommending continued therapy at this time. Plan: Return home alone 09/18/18 RHONDA Salazar
[2018-09-16 15:48] VITALS: BP 138/78; PULSE 71; RESP 18; TEMP 36.4; O2SAT 98
[2018-09-16] MEDS: Senna/Docusate Sodium 1 Tablet PO (17:09)
[2018-09-16 20:29] VITALS: PULSE 61; O2SAT 98
--- NOTE | 2018-09-16 20:44 | DCINST_ITS ---
- Discharge Diagnoses Current Active Problems: Current Active and Chronic Problems Alcoholic pancreatitis (Acute) You will use the following diet at home:: No restrictions, Regular Your food should be the consistency of: Regular Your liquids should be the consistency of: Regular/Thin Discharge Activity: Return to Normal Activity, May Shower, Use Walker Weight Bearing Status: Weight bearing as tolerated Call your doctor if you observe: Fever of 101 or Higher, Inability to urinate, Inability to have a bowel movement, Shortness of breath, Chest pain, Uncontrolled pain Allergies/Adverse Reactions: Allergies nickel [Nickel] Allergy (Verified 09/03/18 07:23) Rash prochlorperazine edisylate [From Compazine] Adverse Reaction (Verified 09/03/18 07:23) disoriented prochlorperazine maleate [From Compazine] Adverse Reaction (Verified 09/03/18 07:23) DISORIENTED Medications to take at Discharge Atenolol [Tenormin (beta rené)] 100 mg PO DAILY 05/20/17 Levothyroxine [Synthroid] 75 mcg PO DAILY #30 tab 10/23/17 Acetaminophen [Tylenol] 1,000 mg PO Q8H PRN PRN tablet 09/16/18 Loratadine [Claritin] 10 mg PO DAILY tablet 09/16/18 Menthol/Lanolin/Calamine/Znox [Calmoseptine Ointment] 1 applic TOPICAL TID tube 09/16/18 traMADol [Ultram] 50 mg PO TID PRN PRN #20 tab 09/16/18 The following prescriptions were given: traMADol [Ultram] 50 mg PO TID PRN PRN #20 tab PRN Reason: Moderate Pain (4-5/10) Primary Care Physician: Johan Ponce MD [STAFF PHYSICIAN] - Please follow up with your Primary Care Physician in: 1 week. Test Results: Test results from this visit will be discussed in further detail at your follow- up appointment, if applicable. Please Follow Up With: Dr. Garcia When: 1-2 weeks Please Follow Up With: /Dr Mcintosh When: after discharge Proposed Discharge Date: 09/18/18
--- NOTE | 2018-09-16 20:47 | DS.PCM_ITS ---
Discharge Date and Diagnosis - Problem List Patient Problems: Active and Suspected Problems Alcoholic pancreatitis (Acute) Date of Admission: 09/08/18 Date of Discharge: 09/18/18 - Primary Discharge Diagnosis Active and Suspected Problems Alcoholic pancreatitis (Acute) - Secondary Discharge Diagnosis Chronic Problems Alcohol abuse (Chronic) pt denies but, ETOH is 111 at admission Hypertension (Chronic) Hypothyroidism (Chronic) Anxiety (Chronic) Fibromyalgia (Chronic) Dysphagia (Chronic) Rheumatoid arthritis (Chronic) never confirmed.....RA is negative.....tells me that she has psoriatic arthritis Psoriasis (Chronic) Chronic back pain (Chronic) osteoarthritis Delusional disorder (Chronic) Bipolar disorder (Chronic) Depression with H/o suicidal attempt (Chronic) Hospital Course and Treatment Imaging Results: 09/08/18 14:56 Diet: Cardiac/Low Cholesterol Food consistency:: Mechanical Soft/Ground Liquid Consistency:: Regular/Thin Type of Dietary Supplement:: Ensure Complete Is pt able to select menu?: Yes Labs (Last 48 Hours) 09/16/18 09/16/18 05:14 05:14 WBC 7.4 RBC 4.10 L Hgb 13.8 Hct 42.5 MCV 103.7 H MCH 33.7 H MCHC 32.5 RDW 12.3 RDW Differential 45.4 H Plt Count 352 MPV 10.2 Immature Gran % (Auto) 2.000 H Neut % (Auto) 79.2 H Lymph % (Auto) 8.9 L Greenlee % (Auto) 7.8 Eos % (Auto) 1.6 Baso % (Auto) 0.5 Absolute Neuts (auto) 5.9 Absolute Lymphs (auto) 0.66 L Total Counted Not Reportable Diff Path Review Reviewed Sodium 139 Potassium 4.6 Chloride 105 Carbon Dioxide 27.0 Anion Gap 7 BUN 16 Creatinine 0.63 Estim Creat Clear Calc 47.10 Est GFR (MDRD) Af Amer 121 Est GFR (MDRD) Non-Af 100 BUN/Creatinine Ratio 25.6 H Glucose 142 H Calcium 9.3 Consultations 09/08/18 19:36 Consult: Onc/Wound/substation engineer Routine Comment: Reason for Consult:: nonblanchable redness to right gluteal fold on admission Operations: None Procedures: None Summary of Care Provided: The patient is a 68 year old Female with below past medical history hospitalized for acute pancreatitis secondary to alcohol, choledocholithiasis ruled out, admitted to TCU with debility, here for rehabilitation, strengthening, prior to discharge home alone. Resident suffers from alcohol use disorder, post traumatic stress disorder, hypochondriasis, somatization disorder, and borderline personality disorder, cannot rule out late onset schizophrenia. Discharge home alone. Patient Problems: Active and Suspected Problems Alcoholic pancreatitis (Acute) - Physical Exam Vital Signs Temp Pulse Resp BP Pulse Ox 97.6 F L 71 18 138/78 H 98 09/16/18 15:48 09/16/18 15:48 09/16/18 15:48 09/16/18 15:48 09/16/18 15:48 Oxygen Delivery Method Room Air Weight: 64.609 kg Body Mass Index (BMI) 23.4 Finger Stick Blood Glucose 103 Intake and Output for Last 24 Hours 09/14/18 09/15/18 09/16/18 23:59 23:59 23:59 Intake Total 600 / 600 1400 / 1400 720 / 720 Balance 600 / 600 1400 / 1400 720 / 720 Laboratory Tests Past 24 Hrs 09/16/18 09/16/18 05:14 05:14 WBC 7.4 RBC 4.10 L Hgb 13.8 Hct 42.5 MCV 103.7 H MCH 33.7 H MCHC 32.5 RDW 12.3 RDW Differential 45.4 H Plt Count 352 MPV 10.2 Immature Gran % (Auto) 2.000 H Neut % (Auto) 79.2 H Lymph % (Auto) 8.9 L Greenlee % (Auto) 7.8 Eos % (Auto) 1.6 Baso % (Auto) 0.5 Absolute Neuts (auto) 5.9 Absolute Lymphs (auto) 0.66 L Total Counted Not Reportable Diff Path Review Reviewed Sodium 139 Potassium 4.6 Chloride 105 Carbon Dioxide 27.0 Anion Gap 7 BUN 16 Creatinine 0.63 Estim Creat Clear Calc 47.10 Est GFR (MDRD) Af Amer 121 Est GFR (MDRD) Non-Af 100 BUN/Creatinine Ratio 25.6 H Glucose 142 H Calcium 9.3 Discharge Diet: No Restrictions Discharge Activity: Return to Normal Activity, May Shower, Use Walker Weight Bearing Status: Weight bearing as tolerated Call your doctor if you observe: Fever of 101 or Higher, Inability to urinate, Inability to have a bowel movement, Shortness of breath, Chest pain, Uncontrol led pain Home Medications: Medications to take at Discharge Atenolol [Tenormin (beta rené)] 100 mg PO DAILY 05/20/17 Levothyroxine [Synthroid] 75 mcg PO DAILY #30 tab 10/23/17 Acetaminophen [Tylenol] 1,000 mg PO Q8H PRN PRN tablet 09/16/18 Loratadine [Claritin] 10 mg PO DAILY tablet 09/16/18 Menthol/Lanolin/Calamine/Znox [Calmoseptine Ointment] 1 applic TOPICAL TID tube 09/16/18 traMADol [Ultram] 50 mg PO TID PRN PRN #20 tab 09/16/18 Following Prescrptions Were Given to Patient: traMADol [Ultram] 50 mg PO TID PRN PRN #20 tab PRN Reason: Moderate Pain (4-5/10) Primary Care Physician: Johan Ponce MD [STAFF PHYSICIAN] - Please follow up with your Primary Care Physician in: 1 week. Please Follow Up With: Dr. Garcia When: 1-2 weeks Please Follow Up With: /Dr Mcintosh When: after discharge Disposition: Home Minutes spent on discharge:: 30 Patient Condition:: Stable Medical Necessity - Tobacco Use Smoking Status: Current every day smoker Tobacco Use: Cigarettes Meaningful Use Info Meaningful Use Diagnoses (Choose all that apply): None applicable
[2018-09-17] MEDS: Enoxaparin 40 MG/0.4 ML Syringe SC (05:39)
[2018-09-17] MEDS: Loratadine 10 MG Tablet PO (05:39)
[2018-09-17] MEDS: Senna/Docusate Sodium 1 Tablet PO (05:39)
[2018-09-17] MEDS: Levothyroxine 75 MCG Tablet PO (05:39)
[2018-09-17] MEDS: Atenolol 100 MG Tablet PO (05:39)
[2018-09-17] MEDS: Menthol/Lanolin/Calamine/Znox 113 GM Tube 1 APPLIC TOPICAL ×3 (05:39→19:46)
[2018-09-17 05:41] VITALS: BP 137/69; PULSE 58
[2018-09-17] MEDS: Polyethylene Glycol 3350 17 GM PACKET PO (05:41)
[2018-09-17] MEDS: Acetaminophen 500 MG Tablet 1000 MG PO (05:48)
[2018-09-17] MEDS: traMADol 50 MG Tablet PO ×3 (06:09→19:45)
--- NOTE | 2018-09-17 09:38 | MDS.RN ---
Information for the mds was obtained from review of the clinical record, interview of resident, staff, and direct observation of resident's care.
--- NOTE | 2018-09-17 14:15 | CASEMGMT ---
Social Work SW met with pt and confirmed d/c home tomorrow 09/18/18. [facility] at front entrance at 2:30 and transport home. Pt expressing understanding. Nursing informed of d/c time and to have pt at front entrance at 2:30. No further SW needs. RHONDA Salazar
[2018-09-17 15:18] VITALS: BP 124/69; PULSE 68; RESP 18; TEMP 36.3; O2SAT 98
[2018-09-18] MEDS: Senna/Docusate Sodium 1 Tablet PO (05:02)
[2018-09-18] MEDS: Polyethylene Glycol 3350 17 GM PACKET PO (05:03)
[2018-09-18] MEDS: Enoxaparin 40 MG/0.4 ML Syringe SC (05:03)
[2018-09-18] MEDS: Atenolol 100 MG Tablet PO (05:03)
[2018-09-18] MEDS: Loratadine 10 MG Tablet PO (05:03)
[2018-09-18] MEDS: Levothyroxine 75 MCG Tablet PO (05:03)
[2018-09-18] MEDS: Menthol/Lanolin/Calamine/Znox 113 GM Tube 1 APPLIC TOPICAL (05:05)
[2018-09-18 05:10] VITALS: BP 136/83; PULSE 70; RESP 18
[2018-09-18] MEDS: traMADol 50 MG Tablet PO ×2 (05:12→11:42)
--- NOTE | 2018-09-18 14:23 | PCM.TCUNOT ---
Subjective: Resident complaining of bilateral knee pain, right worse than left. She is concerned that with right knee pain, she will be unable to climb 38 steps into her apartment. She does have antalgic gait. After informed consent, right knee prepped and draped in sterile manner, anesthesia with vapocoolant, right knee injected with Kenalog 40MG, Lidocaine 1% 1ML using suprapatellar approach, no immediate complications. Vitals/I&O's: Vital Signs Temp Pulse Resp BP Pulse Ox 97.4 F L 70 18 136/83 H 98 09/17/18 15:18 09/18/18 05:10 09/18/18 05:10 09/18/18 05:10 09/17/18 15:18 Oxygen Delivery Method Room Air Weight: 64.609 kg Body Mass Index (BMI) 23.4 Finger Stick Blood Glucose 103 Intake and Output for Last 24 Hours 09/16/18 09/17/18 09/18/18 23:59 23:59 23:59 Intake Total 960 / 960 960 / 960 280 / 280 Balance 960 / 960 960 / 960 280 / 280 Past Medical History Past Medical History (Chronic Problems): Chronic Problems Alcohol abuse (Chronic) pt denies but, ETOH is 111 at admission Hypertension (Chronic) Hypothyroidism (Chronic) Anxiety (Chronic) Fibromyalgia (Chronic) Dysphagia (Chronic) Rheumatoid arthritis (Chronic) never confirmed.....RA is negative.....tells me that she has psoriatic arthritis Psoriasis (Chronic) Chronic back pain (Chronic) osteoarthritis Delusional disorder (Chronic) Bipolar disorder (Chronic) Depression with H/o suicidal attempt (Chronic) Allergies nickel [Nickel] Allergy (Verified 09/03/18 07:23) Rash prochlorperazine edisylate [From Compazine] Adverse Reaction (Verified 09/03/18 07:23) disoriented prochlorperazine maleate [From Compazine] Adverse Reaction (Verified 09/03/18 07:23) DISORIENTED Home Medications: Ambulatory Orders Medication Instructions Recorded Atenolol [Tenormin (beta rené)] 100 mg PO DAILY 05/20/17 Levothyroxine [Synthroid] 75 mcg PO DAILY #30 tab 10/23/17 Acetaminophen [Tylenol] 1,000 mg PO Q8H PRN PRN tablet 09/16/18 Loratadine [Claritin] 10 mg PO DAILY tablet 09/16/18 Menthol/Lanolin/Calamine/Znox 1 applic TOPICAL TID tube 09/16/18 [Calmoseptine Ointment] traMADol [Ultram] 50 mg PO TID PRN PRN #20 tab 09/16/18 Surgical History: no surgical history Psychiatric History: Anxiety, Bipolar, Depression BLAST SETTER History: No pertinent BLAST SETTER history Lives: Alone Smoking Status: Current every day smoker Tobacco Use: Cigarettes Alcohol: Heavy Drugs: None - *Family History Maternal History Items: Unknown, No pertinent history Paternal History Items: Unknown Capacity - Capacity Assessment Tool Can the patient make a choice & communicate that choice?: Yes Can the patient understand benefits, risks and alternatives?: Yes Can the patient make a logical, rational choice?: Yes Is the choice the patient makes consistent w/ their values?: Yes Is there an impending, emergent risk to the patient?: No Does the patient have an Advance Directive?: No Is there a Surrogate Available?: No i.e. HCPOA: No i.e. close relative (spouse, child, parent, sibling)?: No Review of Systems Constitutional: Denies: Chills, Fever, Weight Change HEENT: Denies: Head Aches, Sinus Congestion, Sinus Drainage Cardiovascular: Denies: Chest Pain, Palpitations Respiratory: Denies: Cough, Shortness of breath at rest, Sputum production Gastrointestinal: Denies: Abdominal Pain, Nausea, Vomiting Genitourinary: Denies: Dysuria Musculoskeletal: Reports: Joint Pain - Right knee pain., Joint Tenderness - Right knee pain. Skin: Denies: Rash, Wounds Neurological: Denies: Numbness, Tingling, Focal weakness Psychiatric: Denies: Anxiety, Depression, Homicidal Ideations, Suicidal Ideations Hematologic/ Lymphatic: Denies: Easy Bruising, Easy Bleeding Patient Problems: Active and Suspected Problems Alcoholic pancreatitis (Acute) - Physical Exam General: Alert, Oriented x3, Cooperative HEENT: Atraumatic, PERRLA, EOMI, Normocephalic Neck: Supple, No JVD, Negative Carotid Bruits Lungs: Clear to auscultation, Normal air movement Cardiovascular: Regular rate, No murmurs Abdomen: Bowel Sounds Present, Soft, Non Tender Extremities: No edema, Capillary Refill Less than 3 Seconds Skin: No rashes, No breakdown Musculoskeletal: - - Right knee pain. Neurological: Cranial nerves II-XII grossly intact Psych/Mental Status: Normal Affect, Appropriate Vital Signs Temp Pulse Resp BP Pulse Ox 97.4 F L 70 18 136/83 H 98 09/17/18 15:18 09/18/18 05:10 09/18/18 05:10 09/18/18 05:10 09/17/18 15:18 Oxygen Delivery Method Room Air Weight: 64.609 kg Body Mass Index (BMI) 23.4 Finger Stick Blood Glucose 103 Intake and Output for Last 24 Hours 09/16/18 09/17/18 09/18/18 23:59 23:59 23:59 Intake Total 960 / 960 960 / 960 280 / 280 Balance 960 / 960 960 / 960 280 / 280 Assessment/Plan All Active Problems Acute recurrent pancreatitis (Acute) Shock, unspecified (Acute) Lactic acidosis (Acute) Alcohol intoxication in active alcoholic with complication (Acute) Alcoholic ketosis (Acute) Metabolic acidosis (Acute) Dehydration (Acute) Abnormal LFTs (Acute) Alcoholic pancreatitis (Acute) 68 year old female with below past medical history hospitalized for acute pancreatitis secondary to alcohol, choledocholithiasis ruled out, admitted to TCU with debility, here for rehabilitation, strengthening, prior to discharge home alone. Osteoarthritis right knee - Steroid injection as documented above, patient tolerated procedure, no immediate complications.
--- NOTE | 2018-09-18 14:26 | PN_ITS ---
Subjective: Resident complaining of bilateral knee pain, right worse than left. She is concerned that with right knee pain, she will be unable to climb 38 steps into her apartment. She does have antalgic gait. After informed consent, right knee prepped and draped in sterile manner, anesthesia with vapocoolant, right knee injected with Kenalog 40MG, Lidocaine 1% 1ML using suprapatellar approach, no immediate complications. Vitals/I&O's: Vital Signs Temp Pulse Resp BP Pulse Ox 97.4 F L 70 18 136/83 H 98 09/17/18 15:18 09/18/18 05:10 09/18/18 05:10 09/18/18 05:10 09/17/18 15:18 Oxygen Delivery Method Room Air Weight: 64.609 kg Body Mass Index (BMI) 23.4 Finger Stick Blood Glucose 103 Intake and Output for Last 24 Hours 09/16/18 09/17/18 09/18/18 23:59 23:59 23:59 Intake Total 960 / 960 960 / 960 280 / 280 Balance 960 / 960 960 / 960 280 / 280 Past Medical History Past Medical History (Chronic Problems): Chronic Problems Alcohol abuse (Chronic) pt denies but, ETOH is 111 at admission Hypertension (Chronic) Hypothyroidism (Chronic) Anxiety (Chronic) Fibromyalgia (Chronic) Dysphagia (Chronic) Rheumatoid arthritis (Chronic) never confirmed.....RA is negative.....tells me that she has psoriatic ar thritis Psoriasis (Chronic) Chronic back pain (Chronic) osteoarthritis Delusional disorder (Chronic) Bipolar disorder (Chronic) Depression with H/o suicidal attempt (Chronic) Allergies nickel [Nickel] Allergy (Verified 09/03/18 07:23) Rash prochlorperazine edisylate [From Compazine] Adverse Reaction (Verified 09/03/18 07:23) disoriented prochlorperazine maleate [From Compazine] Adverse Reaction (Verified 09/03/18 07:23) DISORIENTED Home Medications: Ambulatory Orders Medication Instructions Recorded Atenolol [Tenormin (beta rené)] 100 mg PO DAILY 05/20/17 Levothyroxine [Synthroid] 75 mcg PO DAILY #30 tab 10/23/17 Acetaminophen [Tylenol] 1,000 mg PO Q8H PRN PRN tablet 09/16/18 Loratadine [Claritin] 10 mg PO DAILY tablet 09/16/18 Menthol/Lanolin/Calamine/Znox 1 applic TOPICAL TID tube 09/16/18 [Calmoseptine Ointment] traMADol [Ultram] 50 mg PO TID PRN PRN #20 tab 09/16/18 Surgical History: no surgical history Psychiatric History: Anxiety, Bipolar, Depression 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: No pertinent HAND SIGN WRITER history Lives: Alone Smoking Status: Current every day smoker Tobacco Use: Cigarettes Alcohol: Heavy Drugs: None - *Family History Maternal History Items: Unknown, No pertinent history Paternal History Items: Unknown Capacity - Capacity Assessment Tool Can the patient make a choice & communicate that choice?: Yes Can the patient understand benefits, risks and alternatives?: Yes Can the patient make a logical, rational choice?: Yes Is the choice the patient makes consistent w/ their values?: Yes Is there an impending, emergent risk to the patient?: No Does the patient have an Advance Directive?: No Is there a Surrogate Available?: No i.e. HCPOA: No i.e. close relative (spouse, child, parent, sibling)?: No Review of Systems Constitutional: Denies: Chills, Fever, Weight Change HEENT: Denies: Head Aches, Sinus Congestion, Sinus Drainage Cardiovascular: Denies: Chest Pain, Palpitations Respiratory: Denies: Cough, Shortness of breath at rest, Sputum production Gastrointestinal: Denies: Abdominal Pain, Nausea, Vomiting Genitourinary: Denies: Dysuria Musculoskeletal: Reports: Joint Pain - Right knee pain., Joint Tenderness - Right knee pain. Skin: Denies: Rash, Wounds Neurological: Denies: Numbness, Tingling, Focal weakness Psychiatric: Denies: Anxiety, Depression, Homicidal Ideations, Suicidal Ideations Hematologic/ Lymphatic: Denies: Easy Bruising, Easy Bleeding Patient Problems: Active and Suspected Problems Alcoholic pancreatitis (Acute) - Physical Exam General: Alert, Oriented x3, Cooperative HEENT: Atraumatic, PERRLA, EOMI, Normocephalic Neck: Supple, No JVD, Negative Carotid Bruits Lungs: Clear to auscultation, Normal air movement Cardiovascular: Regular rate, No murmurs Abdomen: Bowel Sounds Present, Soft, Non Tender Extremities: No edema, Capillary Refill Less than 3 Seconds Skin: No rashes, No breakdown Musculoskeletal: - - Right knee pain. Neurological: Cranial nerves II-XII grossly intact Psych/Mental Status: Normal Affect, Appropriate Vital Signs Temp Pulse Resp BP Pulse Ox 97.4 F L 70 18 136/83 H 98 09/17/18 15:18 09/18/18 05:10 09/18/18 05:10 09/18/18 05:10 09/17/18 15:18 Oxygen Delivery Method Room Air Weight: 64.609 kg Body Mass Index (BMI) 23.4 Finger Stick Blood Glucose 103 Intake and Output for Last 24 Hours 09/16/18 09/17/18 09/18/18 23:59 23:59 23:59 Intake Total 960 / 960 960 / 960 280 / 280 Balance 960 / 960 960 / 960 280 / 280 Assessment/Plan All Active Problems Acute recurrent pancreatitis (Acute) Shock, unspecified (Acute) Lactic acidosis (Acute) Alcohol intoxication in active alcoholic with complication (Acute) Alcoholic ketosis (Acute) Metabolic acidosis (Acute) Dehydration (Acute) Abnormal LFTs (Acute) Alcoholic pancreatitis (Acute) 68 year old female with below past medical history hospitalized for acute pancreatitis secondary to alcohol, choledocholithiasis ruled out, admitted to TCU with debility, here for rehabilitation, strengthening, prior to discharge home alone. * Osteoarthritis right knee - Steroid injection as documented above, patient tolerated procedure, no immediate complications.
[2018-09-18 14:54] VITALS: BP 148/74; PULSE 74; RESP 18; TEMP 36.8; O2SAT 95
== END 2018-09-18 14:25 | disposition home or self-care (01) | DRG 947 ==
PROVIDERS: Admitting Provider Family Medicine Geriatric Medicine; Referring Provider Family Medicine Geriatric Medicine; Visit Provider Family Medicine Geriatric Medicine
DX: R53.81 Other malaise (principal); K85.20 Alcohol induced acute pancreatitis without necrosis or infection; E03.9 Hypothyroidism, unspecified; F31.9 Bipolar disorder, unspecified; F41.9 Anxiety disorder, unspecified; F22 Delusional disorders; I10 Essential (primary) hypertension; M79.7 Fibromyalgia; L40.9 Psoriasis, unspecified; M19.90 Unspecified osteoarthritis, unspecified site; G89.29 Other chronic pain; F17.210 Nicotine dependence, cigarettes, uncomplicated; F10.20 Alcohol dependence, uncomplicated
CPT/HCPCS: 36415; 80048; 85025; 97110; 97116; 97163; 97166; 97530; 97535; 97802

== ENCOUNTER → 2018-11-03 17:13 | Outpatient (CLI) | payer SELFPAY ==
[2018-09-08 15:06] VITALS: BMI 23.4
[2018-11-03 20:19] LABS: Amphetamine Urine VISTA NEGATIVE (<1000 ng/mL); Barbiturate Urine VISTA NEGATIVE (< 200 ng/mL); Benzodiazepine Urine VISTA NEGATIVE (< 200 ng/mL); Cocaine Urine VISTA NEGATIVE (< 300 ng/mL); Ecstacy Urine VISTA NEGATIVE (< 500 ng/mL); Methadone Urine VISTA NEGATIVE (< 300 ng/mL); PCP Urine VISTA NEGATIVE (< 25 ng/mL); THC Urine VISTA NEGATIVE (< 50 ng/mL); Vista UDS pH Range 5
== END ==
PROVIDERS: Referring Provider Anesthesiology Pain Medicine; Visit Provider Anesthesiology Pain Medicine
DX: F11.20 Opioid dependence, uncomplicated (principal)
CPT/HCPCS: 80307

== ENCOUNTER 2018-12-30 22:19 | Emergency (ER) | payer MEDICARE, SELFPAY ==
[2018-09-08 15:06] VITALS: BMI 23.4
[2018-12-30 22:20] VITALS: BP 136/85; PULSE 115; RESP 16; TEMP 36.7; O2SAT 99; BMI 22.4
[2018-12-30 22:25] VITALS: BP 136/85; PULSE 116; RESP 16; O2SAT 99
--- NOTE | 2018-12-30 22:41 | ED.DCSUM_ITS ---
History of Present Illness Chief Complaint: Other, Pain/Inj Informant: Patient Narrative: Stated she has chronic pain takes tramadol for this. Is been worse over the last few days. No specific injury. She takes tramadol. She sees pain management. She states she has intermittent nausea. She has not drank alcohol today but does do this intermittently. History of frequent chronic pancreatitis and alcohol usage. Patient stated the main reason she came in was because of her chronic pain in all of her joints. She stated that she has chronic difficulty swallowing foods and has not been eating much lately. She has been drinking her calories though. She is out of food shakes however. Requesting a food shake. Denies any other symptoms - Past Medical History (1) Abnormal LFTs Status: Acute (2) Acute recurrent pancreatitis Status: Acute (3) Alcohol intoxication in active alcoholic with complication Status: Acute (4) Alcoholic ketosis Status: Acute (5) Alcoholic pancreatitis Status: Acute (6) Dehydration Status: Acute (7) Lactic acidosis Status: Acute (8) Metabolic acidosis Status: Acute (9) Shock, unspecified Status: Acute (10) Alcohol abuse Status: Chronic Comment: pt denies but, ETOH is 111 at admission (11) Anxiety Status: Chronic (12) Bipolar disorder Status: Chronic (13) Chronic back pain Status: Chronic Comment: osteoarthritis (14) Delusional disorder Status: Chronic (15) Depression with H/o suicidal attempt Status: Chronic (16) Dysphagia Status: Chronic (17) Fibromyalgia Status: Chronic (18) Hypertension Status: Chronic (19) Hypothyroidism Status: Chronic (20) Psoriasis Status: Chronic (21) Rheumatoid arthritis Status: Chronic Comment: never confirmed.....RA is negative.....tells me that she has psoriatic arthritis Past Medical History - Allergies and Home Meds Allergies/Adverse Reactions: Allergies nickel [Nickel] Allergy (Verified 12/30/18 22:25) Rash prochlorperazine edisylate [From Compazine] Adverse Reaction (Verified 12/30/18 22:25) disoriented prochlorperazine maleate [From Compazine] Adverse Reaction (Verified 12/30/18 22:25) DISORIENTED Primary Care Physician: Care Physician,No Primary [Primary Care Provider] - Prior records reviewed: Yes Past Medical History: - - See problem list Surgical History: no surgical history Smoking Status: Current every day smoker Alcohol: Occasional Drugs: None - Family History Maternal Family History: Reports: Unknown, No pertinent history Paternal Family History: Reports: Unknown Review of Systems General: Denies: Chills, Fever, Sweats Eyes: Denies: Visual changes - bilaterally, Diplopia ENT: Denies: Rhinorrhea, Sore throat Cardiovascular: Denies: Chest pain, Palpitations Respiratory: Denies: Dyspnea, Cough, Dyspnea on exertion Gastrointestinal: Reports: Nausea. Denies: Abdominal pain, Vomiting, Diarrhea, Melena, Hematochezia Genitourinary: Denies: Dysuria, Hematuria, Frequency Musculoskeletal: Reports: Arthralgias. Denies: Back pain, Extremity Pain Skin: Denies: Rash, Wounds Neurological: Denies: Headache, Weakness, Numbness Physical Exam Vital Signs/Narrative: Vital Signs Temp Pulse Resp BP Pulse Ox 12/30/18 22:25 116 H 16 136/85 H 99 12/30/18 22:20 98.1 F 115 H 16 136/85 H 99 General: Well nourished, Well developed, No Acute Distress Head: Normocephalic, Atraumatic Eyes: Perrl, EOMI ENT: Moist mucous membranes, No rhinorrhea Neck: Supple, Nontender Cardiovascular: Regular rhythm, No murmurs, Tachycardia. Negative for: Regular rate Respiratory: No distress, CTA bilaterally, Chest nontender Abdomen: Soft, Nontender, Nondistended, Normal bowel sounds Back: Nontender, Normal Inspection Extremities: Nontender, No edema Skin: Normal color, No rash Neurological: Alert, Oriented x3, Cranial nerves II-XII grossly intact, Normal Strength, Normal Sensation Psychological: Normal affect, Normal Mood Diagnostic/Tx/Re-eval - Medical Decision Making She given injection of Toradol for her chronic pain. She has tramadol at home. Given oral dissolving Zofran and a prescription for this for home. Passed an oral challenge with yogurt at her request. At this time I do not feel she needs lab work or imaging. These are chronic issues for the patient. She does not appear dehydrated. She has a slight tachycardia. She will continue drinking fl uids at home. ED Disposition - Plan for ED Patient: Disposition: Home or Assisted Living Diagnosis: Arthralgia, Nausea Instructions: ED Chronic Pain Prescriptions: Ondansetron [Zofran Odt] 4 mg PO Q8H PRN PRN #10 tab PRN Reason: Nausea Prescription Printed Referrals: Doctor,Your [STAFF PHYSICIAN] -
[2018-12-30] MEDS: Ondansetron ODT 4 MG Tablet 8 MG PO (22:53)
[2018-12-30] MEDS: Ketorolac 15 MG/ML Vial IM (22:53)
[2018-12-30 22:55] VITALS: BP 128/68; PULSE 107; RESP 18; O2SAT 100
[2018-12-31 00:03] VITALS: BP 124/82
--- NOTE | 2018-12-31 00:04 | ED.RN ---
PT wheelchair to lobby with DENTAL ASSISTANT TEACHER to await cab ride home. Pt encouraged to make appts with PCP and pain mgmt .
== END 2018-12-31 00:04 | disposition home or self-care (01) ==
PROVIDERS: Emergency Provider Emergency Medicine
DX: M25.50 Pain in unspecified joint (principal); G89.29 Other chronic pain; R11.0 Nausea; R13.10 Dysphagia, unspecified; I10 Essential (primary) hypertension; E03.9 Hypothyroidism, unspecified; M06.9 Rheumatoid arthritis, unspecified; L40.9 Psoriasis, unspecified; M79.7 Fibromyalgia; F17.200 Nicotine dependence, unspecified, uncomplicated; Z79.899 Other long term (current) drug therapy
CPT/HCPCS: 96372; 99284

== ENCOUNTER 2019-02-04 07:42 | Emergency (ER) | payer SELFPAY ==
[2019-02-04 07:44] VITALS: BP 147/80; PULSE 85; RESP 14; TEMP 37.3; O2SAT 98; BMI 21.3
--- NOTE | 2019-02-04 07:54 | CT_ITS ---
STUDY: CT ABDOMEN AND PELVIS WITHOUT CONTRAST REASON FOR EXAM: Female, 69 years old. Abdominal pain. History of ethanol abuse and cirrhosis. RADIATION DOSAGE (If Supplied By Facility): CTDIvol = ( 6.05 ) mGy, DLP = ( 318.85 ) mGycm TECHNIQUE: Transaxial images were obtained from the dome of the diaphragm to the symphysis pubis without oral contrast, and without intravenous contrast. Sagittal and coronal images were reconstructed. Individualized dose optimization techniques were used for this CT. COMPARISON: Comparison is made with prior study dated September 03, 2018. FINDINGS: The visualized lung bases are unremarkable. Coronary artery calcification. There is decreased attenuation of the liver consistent with steatosis. Hepatomegaly. Normal gallbladder and extrahepatic biliary system. Normal spleen. Stable punctate calcification in the head of the pancreas. This may represent either focal pancreatic calcification versus a calculus in the distal portion of the common bile duct. Normal pancreas. Normal bilateral adrenal glands. Normal right kidney. Normal left kidney. Normal visualized stomach. Normal small intestine. Normal colon. The appendix is visualized and appears normal. There is diffuse atherosclerotic calcification of the abdominal aorta, without a demonstrated aneurysm. Normal inferior vena cava. Normal retroperitoneum. Normal urinary bladder. Normal abdominal wall. Normal osseous structures. CT/Abdomen/Pelvis without Cont IMPRESSION: Hepatomegaly. Diffuse fatty infiltration of the liver. Stable punctate calcification in the region of the head of the pancreas. Electronically Signed: Edison Varlea, at 8:54 EDT , Service support ,
--- NOTE | 2019-02-04 08:04 | ED.DCSUM_ITS ---
History of Present Illness Chief Complaint: Abd Pain Informant: Patient Onset: Month(s), - Current Severity: Mild Narrative: Patient presents complaining of lower abdominal pain that she is had intermittent for years she is had an extensive prior outpatient evaluation she recalls having EGDs other studies that were all unremarkable she also has lumbar back pain diffuse musculoskeletal pain, she is seen by [place] [facility] is usually on Ultram she is been out of her Ultram for about a month. Indicates the abdominal pain recurred to its usual nature typical and always she is having some diarrhea she is able to eat no fever no cough and again normal bowel bladder habits except for diarrhea no antibiotics no tainted food or exposure to sick individuals Past Medical History - Allergies and Home Meds Allergies/Adverse Reactions: Allergies nickel [Nickel] Allergy (Verified 12/30/18 22:25) Rash prochlorperazine edisylate [From Compazine] Adverse Reaction (Verified 12/30/18 22:25) disoriented prochlorperazine maleate [From Compazine] Adverse Reaction (Verified 12/30/18 22:25) DISORIENTED Primary Care Physician: Care Physician,No Primary [Primary Care Provider] - Past Medical History: - - Chronic abdominal pain lumbar back pain related to fall with lumbar spine fracture diffuse muscular skeletal pain Surgical History: no surgical history Smoking Status: Current every day smoker - Family History Maternal Family History: Reports: Unknown, No pertinent history Paternal Family History: Reports: Unknown Review of Systems General: Denies: Chills, Fever, Sweats Eyes: Denies: Visual changes - bilaterally, Diplopia ENT: Denies: Rhinorrhea, Sore throat Cardiovascular: Denies: Chest pain, Palpitations Respiratory: Denies: Dyspnea, Cough, Dyspnea on exertion Gastrointestinal: Denies: Abdominal pain, Nausea, Vomiting, Diarrhea, Melena, Hematochezia Genitourinary: Denies: Dysuria, Hematuria, Frequency Musculoskeletal: Denies: Back pain, Extremity Pain Skin: Denies: Rash, Wounds Neurological: Denies: Headache, Weakness, Numbness Physical Exam Vital Signs/Narrative: Vital Signs Temp Pulse Resp BP Pulse Ox 02/04/19 07:44 99.1 F 85 14 147/80 H 98 General: Well nourished, Well developed, No Acute Distress Head: Normocephalic, Atraumatic Eyes: Perrl, EOMI ENT: Moist mucous membranes, No rhinorrhea Neck: Supple, Nontender Cardiovascular: Regular rate, Regular rhythm, No murmurs Respiratory: No distress, CTA bilaterally, Chest nontender Abdomen: Soft, Nontender, Nondistended, Normal bowel sounds, - - Is soft and nontender no rebound guarding organomegaly she complains of pain primarily suprapubic area Back: Nontender, Normal Inspection Extremities: Nontender, No edema Skin: Normal color, No rash Neurological: Alert, Oriented x3, Cranial nerves II-XII grossly intact, Normal Strength, Normal Sensation Psychological: Normal affect, Normal Mood Diagnostic/Tx/Re-eval - Medical Decision Making Given her age and her complaints and all the above screening labs IV fluids UA CT Patient screening labs are generally unremarkable see those reports except her liver enzymes are slightly elevated to an AST of 107, she is had elevation of liver enzymes in the past, UA does show signs of UTI urine culture sent she was given first dose of Keflex in addition her abdominal CT today shows nothing acute see that report, she has had prior scans prior ultrasounds it also showed nothing acute given all the above she is improved with fluids this is a chronic recurring process for her I explained her the exact etiology remains unclear she is follow with her outpatient providers she needs to obtain her pain management from her pain management physicians stay in a bland diet use [id number] medications to control her symptoms and follow-up by following all of the instructions she is been given by her outpatient providers and calling to make appointments with the outpatient providers as soon as possible but she also recognize need to complete her antibiotic course for the UTI and have her outpatient providers check results of urine culture return for change in symptoms, she agrees and understands Home stable Final impression Urinary tract infection Acute recurrent abdominal pain, abnormal liver enzymes, history of chronic pain ED Disposition - Plan for ED Patient: Diagnosis: Abdominal pain, Abnormal LFTs, UTI (urinary tract infection) Instructions: ABDOMINAL PAIN, Unknown Cause, (Female), Bladder Infection, Female (Adult) Prescriptions: Cephalexin [Keflex] 500 mg PO Q6 #40 cap Prescription Printed Referrals: Care Physician,No Primary [Primary Care Provider] - Additional Instructions: Follow-up with all of your outpatient providers for further management and to obtain further pain management
[2019-02-04] MEDS: Ondansetron 4 MG/2 ML Vial IV (08:13)
[2019-02-04] MEDS: morphine 8 MG/ML Syringe IV (08:13)
[2019-02-04 08:14] LABS: Absolute Lymphocyte Count 0.66 X10^3/uL (0.83-4.51); Absolute Neutrophil Count 5.9 X10^3/uL (2.0-7.7); Basophil# 0.04 X10^3/uL; Basophil% 0.6 % (0-1); Eosinophil# 0.02 X10^3/uL; Eosinophils% 0.3 % (0-5); Hematocrit 44.7 % (37-47); Hemoglobin 15.4 g/dL (12.0-15.0); Lymphocyte # 0.66 X10^3/ul (4.0); Lymphocyte % 9.1 % (19-41); Mean Corp Hgb Conc 34.5 g/dL (32-36); Mean Corpuscular Hgb 34.2 pg (27.0-32.0); Mean Corpuscular Volume 99.3 fL (81-99); Mean Platelet Vol. 8.7 fl (6.2-12.0); Monocyte# 0.56 X10^3/uL; Monocyte% 7.7 % (0-10); NRBC Flagged by Analyzer 0 % (0-5); Neutrophil # 5.94 X10^3/uL (2.7-7.7); Neutrophil % 81.6 % (47-70); Platelet Count 301 K/mm3 (150-450); RBC Distribution Width CV 12.8 % (11.6-14.6); RBC Distribution Width SD 46.5 fl (35.1-43.9); White Blood Count 7.3 K/mm3 (4.4-11.0)
[2019-02-04] MEDS: 0.9% Normal Saline 1,000 ML 125 ML IV (08:14)
[2019-02-04 08:29] LABS: AST(SGOT) 176 U/L (15-37); Alanine Aminotransfer ALT/SGPT 72 U/L (13-56); Albumin, Serum 2.7 g/dL (3.2-5.0); Alkaline Phosphatase 260 U/L (45-117); Anion Gap 14 (5-15); BUN 2 mg/dL (7-18); BUN/Creat Ratio 2.9 RATIO (10-20); Calcium,Total 7.6 mg/dL (8.5-10.1); Chloride 92 mmol/L (98-107); Creatinine, Serum 0.69 mg/dL (0.55-1.02); EST Glomerular Filtration Rate 90 mL/min (>60); Est Glom Filt Rate - Afr Amer 108 mL/min (>60); Globulin 3.7 g/dL (2.2-4.2); Glucose 140 mg/dL (74-106); Lipase 66 U/L (73-393); Protein, Total 6.4 g/dL (6.4-8.2); Sodium Level 139 mmol/L (136-145)
--- NOTE | 2019-02-04 09:18 | PCA ---
pt unable to give urine sample at this time.
[2019-02-04 09:55] VITALS: BP 145/70; PULSE 77; O2SAT 95
[2019-02-04 12:10] VITALS: BP 117/66; PULSE 80; RESP 16; O2SAT 97
[2019-02-04 12:10] LABS: Mucous, Urine 0 SEEN /hpf (<or=2+); Red Blood Cells-Urine 0 SEEN /hpf (0-5)
[2019-02-04 12:12] LABS: Color, Urine Yellow (Yellow); Glucose, Dipstick Normal (Normal); Ketone-Dipstick 5 mg/dl (Negative); Leukocyte Esterase-Dipstick 500 /ul (Negative); Nitrite-Dipstick Positive (Negative); Occult Blood-Urine 10 /ul (Negative); Protein-Dipstick Negative (Negative); Specific Gravity, Urine 1.005 (1.002-1.030); Urine Bilirubin Dipstick Negative (Negative); Urine Clarity Sl. Cloudy (Clear); Urine Urobilinogen 1 mg/dl (Normal)
[2019-02-04 12:20] LABS: Bacteria 3+ /hpf (None Seen); Squamous Epithelial Cells - UA 0-5 SEEN /hpf (5-10); White Blood Cells 10-25 SEEN /hpf (0-5)
--- NOTE | 2019-02-04 12:23 | ED.RN ---
pt steady gait to bathroom in room. no assistance needed. Unable to urinate at this time, straight cath inserted and results sent to lab.
[2019-02-04] MEDS: 0.9% Normal Saline 1,000 ML 999 ML IV (12:27)
[2019-02-04] MEDS: Cephalexin 250 MG Capsule 500 MG PO (13:42)
[2019-02-04 13:43] VITALS: BP 120/82; PULSE 70; RESP 16; O2SAT 97
== END 2019-02-04 14:25 | disposition home or self-care (01) ==
PROVIDERS: Emergency Provider Emergency Medicine
DX: N39.0 Urinary tract infection, site not specified (principal); R10.30 Lower abdominal pain, unspecified; R74.8 Abnormal levels of other serum enzymes; G89.29 Other chronic pain; F17.200 Nicotine dependence, unspecified, uncomplicated
CPT/HCPCS: 74176; 80048; 80076; 81001; 83690; 85025; 87086; 87088; 87186; 96361; 96374; 96375; 99285; J7030; P9612; A4216; J2405

== ENCOUNTER 2019-02-12 17:18 | Inpatient (IN) | payer MEDICARE, SELFPAY ==
[2019-02-12] VITALS (7 sets, daily range): BP systolic 121–148; BP diastolic 64–98; PULSE 102–117; RESP 14–18; TEMP 36.6–37.2; O2SAT 97–99; BMI 21.8; BMI 21.7
--- NOTE | 2019-02-12 17:23 | EKG12_ITS ---
Test Reason : ABD PAIN Blood Pressure : / mmHG Vent. Rate : 106 BPM Atrial Rate : 106 BPM P-R Int : 154 ms QRS Dur : 070 ms QT Int : 382 ms P-R-T Axes : 049 019 029 degrees QTc Int : 507 ms Sinus tachycardia with Premature atrial complexes Low voltage QRS Borderline ECG Confirmed by SEEMA PARKS ([id number]), development editor SARITHA COLON ([id number]) on 02/15/2019 2:21:41 PM Referred By: Joe Fernandez Confirmed By:SEEMA PARKS
--- NOTE | 2019-02-12 17:25 | ED.DCSUM_ITS ---
History of Present Illness Chief Complaint: Abd Pain Informant: Patient Onset: Weeks Context: Gradual Onset Timing: Continuous Current Severity: Moderate Maximum Severity: Moderate Narrative: The patient presents to the emergency department with nausea, vomiting, diffuse pain so and myalgias. The patient was actually seen here about a week ago. At that point, she had a CT of abdomen pelvis which was unremarkable. Lab work was unremarkable. Her pain was addressed. There was question of urinary tract infection. She was discharged home. The patient is in pain management, but states that she has not been able to go because of her chronic pain. She states she is been treating her pain with alcohol. She states over the past few days, her pain is worsened. She describes it as diffuse and in all joints. She states that she is been nauseated and has had decreased oral intake. She denies any fevers or chills. She denies any other systemic complaints. Prior similar symptoms: Yes Recent Illness/Hospitalization: Yes Past Medical History - Allergies and Home Meds Allergies/Adverse Reactions: Allergies nickel [Nickel] Allergy (Verified 02/12/19 17:24) Rash prochlorperazine edisylate [From Compazine] Adverse Reaction (Verified 02/12/19 17:24) disoriented prochlorperazine maleate [From Compazine] Adverse Reaction (Verified 02/12/19 17:24) DISORIENTED Primary Care Physician: Care Physician,No Primary [Primary Care Provider] - Prior records reviewed: Yes Surgical History: no surgical history Smoking Status: Current every day smoker - Family History Maternal Family History: Reports: Unknown, No pertinent history Paternal Family History: Reports: Unknown Review of Systems General: Reports: Chills. Denies: Fever, Sweats Eyes: Denies: Visual changes - bilaterally, Diplopia ENT: Denies: Rhinorrhea, Sore throat Cardiovascular: Denies: Chest pain, Palpitations Respiratory: Denies: Dyspnea, Cough, Dyspnea on exertion Gastrointestinal: Reports: Abdominal pain, Nausea, Vomiting. Denies: Diarrhea, Melena, Hematochezia Genitourinary: Denies: Dysuria, Hematuria, Frequency Musculoskeletal: Reports: Myalgias, Arthralgias. Denies: Back pain, Extremity Pain Skin: Denies: Rash, Wounds Neurological: Denies: Headache, Weakness, Numbness Physical Exam Vital Signs/Narrative: Vital Signs Temp Pulse Resp BP Pulse Ox 09/06/19 17:18 98.0 F 117 H 14 148/98 H 98 Inital Vital Signs reviewed: Yes General: Well nourished, Well developed, No Acute Distress Head: Normocephalic, Atraumatic Eyes: Perrl, EOMI ENT: Moist mucous membranes, No rhinorrhea Neck: Supple, Nontender Cardiovascular: Regular rate, Regular rhythm, No murmurs Respiratory: No distress, CTA bilaterally, Chest nontender Abdomen: Soft, Nontender, Nondistended, Normal bowel sounds Back: Nontender, Normal Inspection Extremities: Nontender, No edema Skin: Normal color, No rash Neurological: Alert, Oriented x3, Cranial nerves II-XII grossly intact, Normal Strength, Normal Sensation Psychological: Normal affect, Normal Mood Diagnostic/Tx/Re-eval Clinical Impression(s) from Imaging Studies Abdomen/Pelvis CT 02/12/19 18:21 IMPRESSION: 1. Prominent liver with diffuse fatty infiltration. 2. No acute intra-abdominal process or major interval change. Electronically Signed: Cesario Sauer DO at 19:09 EDT Tel [phone], Service support , Abnormal Lab Results 02/12/19 02/12/19 02/12/19 17:46 17:46 17:46 WBC 7.9 RBC 4.51 Hgb 15.3 H Hct 44.4 MCV 98.4 MCH 33.9 H MCHC 34.5 RDW Std Deviation 47.8 H RDW Coeff of Jonathan 13.3 Plt Count 178 MPV 8.4 Immature Gran % (Auto) 1.000 H Neut % (Auto) 77.6 H Lymph % (Auto) 10.5 L [place] % (Auto) 10.1 H Eos % (Auto) 0.3 Baso % (Auto) 0.5 Absolute Neuts (auto) 6.2 Absolute Lymphs (auto) 0.83 Nucleated RBC % 0 Sodium 139 Potassium 3.2 L Chloride 101 Carbon Dioxide 25.0 Anion Gap 13 BUN 3 L Creatinine 0.54 L Estim Creat Clear Calc 48.30 Est GFR (MDRD) Af Amer 143 Est GFR (MDRD) Non-Af 118 BUN/Creatinine Ratio 5.6 L Glucose 159 H Calcium 8.5 Total Bilirubin 1.40 H AST 450 H ALT 147 H Alkaline Phosphatase 287 H Total Protein 6.7 Albumin 2.8 L Globulin 3.9 Albumin/Globulin Ratio 0.7 L Lipase 747 H Ethyl Alcohol 7.0 - Rhythm Strip Rhythm Strip: Sinus Tach Rate: 105 Ectopy: None - EKG Initial EKG Interpretation: No Acute Injury Pattern, Sinus Tachycardia Prior: Unchanged - Medical Decision Making The patient presents with abdominal pain, nausea, and vomiting. She does have a history of alcohol abuse, fatty liver, and recurrent pancreatitis. She does admit to drinking alcohol over the past 2 days to help deal with her chronic pain. Patient was tachycardic on arrival. EKG was obtained. It demonstrated sinus tachycardia without any acute ischemic change. It was unchanged from prior. Patient was given fluids and analgesics. She was also given antiemetics. She did have some improvement of her pain. Labs do show evidence of pancreatitis and elevation of her liver functions. I did want to rule out an obstructive process. The patient underwent CT imaging which showed no dilation of her biliary tree. My suspicion is that this is likely alcoholic hepatitis and pancreatitis from her history of alcohol abuse. Given her persistent nausea and pain, I do feel that she would benefit from hospital admission. The patient was discussed with the hospitalist. Impression 1. Acute pancreatitis 2. Nausea and vomiting ED Disposition - Plan for ED Patient: Referrals: Care Physician,No Primary [Primary Care Provider] -
[2019-02-12] MEDS: Morphine 4 MG/ML Syringe IV ×2 (17:49→19:44)
[2019-02-12] MEDS: 0.9% Normal Saline 1,000 ML 1000 ML IV (17:49)
[2019-02-12] MEDS: Ondansetron 4 MG/2 ML Vial IV ×3 (17:49→21:51)
[2019-02-12 18:00] LABS: Absolute Lymphocyte Count 0.83 X10^3/uL (0.83-4.51); Absolute Neutrophil Count 6.2 X10^3/uL (2.0-7.7); Basophil# 0.04 X10^3/uL; Basophil% 0.5 % (0-1); Eosinophil# 0.02 X10^3/uL; Eosinophils% 0.3 % (0-5); Hematocrit 44.4 % (37-47); Hemoglobin 15.3 g/dL (12.0-15.0); Lymphocyte # 0.83 X10^3/ul (4.0); Lymphocyte % 10.5 % (19-41); Mean Corp Hgb Conc 34.5 g/dL (32-36); Mean Corpuscular Hgb 33.9 pg (27.0-32.0); Mean Corpuscular Volume 98.4 fL (81-99); Mean Platelet Vol. 8.4 fl (6.2-12.0); Monocyte% 10.1 % (0-10); NRBC Flagged by Analyzer 0 % (0-5); Neutrophil # 6.15 X10^3/uL (2.7-7.7); Neutrophil % 77.6 % (47-70); Platelet Count 178 K/mm3 (150-450); RBC Distribution Width CV 13.3 % (11.6-14.6); RBC Distribution Width SD 47.8 fl (35.1-43.9); Red Blood Count 4.51 M/mm3 (4.2-5.4); White Blood Count 7.9 K/mm3 (4.4-11.0)
[2019-02-12 18:18] LABS: ALB/GLOB Ratio 0.7 RATIO (0.9-2.4); AST(SGOT) 450 U/L (15-37); Alanine Aminotransfer ALT/SGPT 147 U/L (13-56); Albumin, Serum 2.8 g/dL (3.2-5.0); Alkaline Phosphatase 287 U/L (45-117); Anion Gap 13 (5-15); BUN 3 mg/dL (7-18); BUN/Creat Ratio 5.6 RATIO (10-20); Calcium,Total 8.5 mg/dL (8.5-10.1); Chloride 101 mmol/L (98-107); Creatinine, Serum 0.54 mg/dL (0.55-1.02); EST Glomerular Filtration Rate 118 mL/min (>60); Est Glom Filt Rate - Afr Amer 143 mL/min (>60); Globulin 3.9 g/dL (2.2-4.2); Glucose 159 mg/dL (74-106); Lipase 747 U/L (73-393); Potassium 3.2 mmol/L (3.5-5.1); Protein, Total 6.7 g/dL (6.4-8.2); Sodium Level 139 mmol/L (136-145)
--- NOTE | 2019-02-12 18:21 | CT_ITS ---
STUDY: CT ABDOMEN AND PELVIS WITH CONTRAST REASON FOR EXAM: Female, 69 years old. Generalized pain. Lower back pain. RADIATION DOSAGE (If Supplied By Facility): CTDIvol = ( 8.79 ) mGy, DLP = ( 395.46 ) mGycm TECHNIQUE: Transaxial images were obtained from the dome of the diaphragm to the symphysis pubis without oral contrast. 100 IV Isovue 300 was administered. Sagittal and coronal images were reconstructed. Individualized dose optimization techniques were used for this CT. COMPARISON: February 04, 2019. FINDINGS: The visualized lung bases are unremarkable. The visualized portions of the heart are within normal limits. Diffuse fatty infiltration mildly enlarged liver with elevation of the right hemidiaphragm. No enhancing mass. Normal gallbladder and extrahepatic biliary system. Normal spleen. Normal pancreas. Small calcification within the uncinate process. Normal bilateral adrenal glands. Normal right kidney. Normal left kidney. Abnormal bilateral ureters. Normal visualized stomach. Normal small intestine. Normal colon. The appendix is visualized and appears normal. There is diffuse atherosclerotic calcification of the abdominal aorta, without a demonstrated aneurysm. Normal inferior vena cava. Normal retroperitoneum. Urinary bladder is incompletely distended. There is uniform wall thickening without mass or filling defect. The uterus and ovaries. There is no pelvic lymphadenopathy. No free air or free fluid is seen within the peritoneal cavity. Normal abdominal wall. Normal osseous structures. CT/Abdomen/Pelvis W IV Cont ONLY IMPRESSION: 1. Prominent liver with diffuse fatty infiltration. 2. No acute intra-abdominal process or major interval change. Electronically Signed: Cesario Sauer DO at 19:09 EDT Tel [phone], Service support ,
[2019-02-12] MEDS: 0.9% Normal Saline 1,000 ML 999 ML IV (19:42)
--- NOTE | 2019-02-12 19:48 | HP.PCM_ITS ---
Problem List (1) Alcoholic pancreatitis Status: Acute History of Present Illness Date of Admission: 02/12/19 Chief Complaint: abdominal pain The patient is a 69 year old F with a significant history of a previous alcoholic pancreatitis; alcoholism; and chronic pain who presented to emergency department with 2-day history of progressively worsening abdominal pain. He describes the pain as her abdomen going to explode. She states that her pain is dull. She denies any ameliorating or aggravating factors to her pain while at home. She was given morphine at the emergency department. She reported that the morphine at the emergency department helped her pain.Associated with her symptoms is nausea and vomiting. The patient is on Ultram for chronic pain. She sees pain management, Dr. Mcintosh for chronic pain. Because patient ran out of her pain medication she was ordered to alcohol. Reportedly she drank vodka. She reported that Vodka is not the strong type. Also, she reports generalized pain and pain with swallowing. She reported that her pain with swallowing has been going on for about 3 to 4 years. Past Medical History Past Medical History (Chronic Problems): Chronic Problems Alcohol abuse (Chronic) pt denies but, ETOH is 111 at admission Hypertension (Chronic) Hypothyroidism (Chronic) Anxiety (Chronic) Fibromyalgia (Chronic) Dysphagia (Chronic) Rheumatoid arthritis (Chronic) never confirmed.....RA is negative.....tells me that she has psoriatic arthritis Psoriasis (Chronic) Chronic back pain (Chronic) osteoarthritis Delusional disorder (Chronic) Bipolar disorder (Chronic) Depression with H/o suicidal attempt (Chronic) Allergies nickel [Nickel] Allergy (Verified 02/12/19 17:24) Rash prochlorperazine edisylate [From Compazine] Adverse Reaction (Verified 02/12/19 17:24) disoriented prochlorperazine maleate [From Compazine] Adverse Reaction (Verified 02/12/19 17:24) DISORIENTED Home Medications: Ambulatory Orders Medication Instructions Recorded Atenolol [Tenormin (beta rené)] 100 mg PO DAILY 05/20/17 Levothyroxine [Synthroid] 75 mcg PO DAILY #30 tab 10/23/17 Surgical History: tonsillectomy Psychiatric History: Anxiety, Bipolar, Depression RESPIRATORY CARE SPECIALIST History: No pertinent RESPIRATORY CARE SPECIALIST history Lives: Alone Smoking Status: Current every day smoker Tobacco Use: Cigarettes Alcohol: Heavy - *Family History Maternal History Items: - - Reports autoimmune disease. Paternal History Items: - - Reports that her father from aspiration pneumonia at age 92. And her grandfather from pneumonia at age 32. Review of Systems Constitutional: Denies: Chills, Fever, Weight Change HEENT: Denies: Head Aches, Sinus Congestion, Sinus Drainage Cardiovascular: Denies: Chest Pain, Palpitations Respiratory: Denies: Cough, Shortness of breath at rest, Sputum production Gastrointestinal: Reports: Abdominal Pain, Nausea, Vomiting Genitourinary: Denies: Dysuria Musculoskeletal: Reports: Back Pain, Joint Pain Skin: Denies: Rash, Wounds Neurological: Denies: Numbness, Tingling, Focal weakness Psychiatric: Denies: Anxiety, Depression, Homicidal Ideations, Suicidal Ideations Hematologic/ Lymphatic: Denies: Easy Bruising, Easy Bleeding VTE Information - Inpt Only VTE Present on Admission: No VTE Mechan Device Prophylaxis: None VTE Pharm Prophylaxis ordered?: Yes - Physical Exam General: Alert, Oriented x3, Cooperative HEENT: Atraumatic, PERRLA, EOMI, Normocephalic Neck: Supple, No JVD, Negative Carotid Bruits Lungs: Clear to auscultation, Normal air movement Cardiovascular: No murmurs, Tachycardic Abdomen: Bowel Sounds Present, Soft, Non Tender Extremities: Capillary Refill Less than 3 Seconds, Edema - 3+ bilateral feet Skin: No rashes, No breakdown Musculoskeletal: No Tenderness to Palpation of Joints or Extremities Neurological: Cranial nerves II-XII grossly intact Psych/Mental Status: Normal Affect, - - Excessive talkativeness with tangential answers Vital Signs Temp Pulse Resp BP Pulse Ox 98.0 F 102 H 17 121/64 H 99 02/12/19 17:18 02/12/19 19:45 02/12/19 19:45 02/12/19 19:45 02/12/19 19:45 Oxygen Delivery Method Room Air Weight: 61.4 kg Body Mass Index (BMI) 21.8 Finger Stick Blood Glucose 103 Intake and Output for Last 24 Hours 02/10/19 02/11/19 02/12/19 23:59 23:59 23:59 Intake Total 1000 / 1000 Balance 1000 / 1000 Laboratory Tests Past 24 Hrs 02/12/19 02/12/19 02/12/19 17:46 17:46 17:46 WBC 7.9 RBC 4.51 Hgb 15.3 H Hct 44.4 MCV 98.4 MCH 33.9 H MCHC 34.5 RDW Std Deviation 47.8 H RDW Coeff of Jonathan 13.3 Plt Count 178 MPV 8.4 Immature Gran % (Auto) 1.000 H Neut % (Auto) 77.6 H Lymph % (Auto) 10.5 L [place] % (Auto) 10.1 H Eos % (Auto) 0.3 Baso % (Auto) 0.5 Absolute Neuts (auto) 6.2 Absolute Lymphs (auto) 0.83 Nucleated RBC % 0 Sodium 139 Potassium 3.2 L Chloride 101 Carbon Dioxide 25.0 Anion Gap 13 BUN 3 L Creatinine 0.54 L Estim Creat Clear Calc 48.30 Est GFR (MDRD) Af Amer 143 Est GFR (MDRD) Non-Af 118 BUN/Creatinine Ratio 5.6 L Glucose 159 H Calcium 8.5 Total Bilirubin 1.40 H AST 450 H ALT 147 H Alkaline Phosphatase 287 H Total Protein 6.7 Albumin 2.8 L Globulin 3.9 Albumin/Globulin Ratio 0.7 L Lipase 747 H Ethyl Alcohol 7.0 Assessment/Plan All Active Problems Acute recurrent pancreatitis (Acute) Abnormal LFTs (Acute) Alcoholic pancreatitis (Acute) The patient is a 69 year old F with a significant history of a previous alcoholic pancreatitis; alcoholism; and chronic pain who presented to emergency department with 2-day history of progressively worsening abdominal pain and found to have elevated liver enzymes and lipase consistent with pancreatitis likely secondary to alcoholism. Acute recurrent pancreatitis Etiology likely from alcoholism. Patient has had MRCP and right upper quadrant ultrasound in the past none of which was remarkable for stone. Review of past records shows ultrasound gallbladder was remarkable for fatty infiltration of the liver. 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 Patient received normal saline bolus in the emergency department. We will continue patient on lactated Ringer's. Lactated Ringer's at a rate of only 100 mL's per hour since patient has bilateral feet edema. We will start patient on clear liquid diet. Hypokalemia On presentation potassium was 3.2. Discussed emergency department to give patient some potassium supplement. We will check magnesium level Etiology could be from vomiting or from alcoholism. Alcohol dependence Will put patient on CIWA protocol with Ativan as needed; thiamine; multivitamins and folic acid. Counselled Hypothyroidism Synthroid continued Hypertension On presentation her blood pressure was not within goal Atenolol continued Trend blood pressure and adjust blood pressure medication Tobacco abuse Counseled Declined nicotine patch Odynophagia Since patient stated her symptoms have been going for 3 to 4 years; recommend on discharge patient follows up with GI. DVT prophylaxis Subcutaneous Lovenox. Code Visit Inpatient E&M: 48113 Init Hosp L3
[2019-02-12 21:26] LABS: Magnesium 1.1 mg/dL (1.6-2.6)
[2019-02-12] MEDS: Lactated Ringers 1,000 ML 100 ML IV (21:48)
[2019-02-12] MEDS: MELATONIN 3 MG TABLET PO (22:32)
[2019-02-12] MEDS: Morphine 2 MG/ML Syringe IV (23:56)
[2019-02-13] VITALS (7 sets, daily range): BP systolic 82–125; BP diastolic 59–69; PULSE 73–94; RESP 18; TEMP 36.8–36.9; O2SAT 95–99
[2019-02-13] MEDS: Magnesium Sulfate 4gm/100mL 4 GM/100 ML IV.SOLN. IV (04:35)
[2019-02-13] MEDS: Morphine 2 MG/ML Syringe IV ×5 (04:41→22:16)
[2019-02-13] MEDS: Levothyroxine 75 MCG Tablet PO (06:31)
[2019-02-13 06:39] LABS: Anion Gap 8 (5-15); BUN 2 mg/dL (7-18); BUN/Creat Ratio 4.4 RATIO (10-20); Calcium,Total 7.6 mg/dL (8.5-10.1); Chloride 108 mmol/L (98-107); Creatinine, Serum 0.45 mg/dL (0.55-1.02); EST Glomerular Filtration Rate 146 mL/min (>60); Est Glom Filt Rate - Afr Amer 176 mL/min (>60); Estimated Creatinine Clearance 46.43 ml/min; Glucose 137 mg/dL (74-106); Potassium 3.7 mmol/L (3.5-5.1); Sodium Level 143 mmol/L (136-145)
[2019-02-13] MEDS: Lactated Ringers 1,000 ML 100 ML IV (07:27)
[2019-02-13] MEDS: Ondansetron 4 MG/2 ML Vial IV ×2 (07:36→18:35)
[2019-02-13] MEDS: 0.9% NaCl Peripheral Flush Adult/Peds IV ×5 (07:36→22:16)
[2019-02-13] MEDS: Folic Acid 1 MG Tablet PO (08:48)
[2019-02-13] MEDS: Multivitamins,Ther W-Minerals Tablet 1 TABLET PO (08:49)
[2019-02-13] MEDS: Thiamine Hydrochloride 100 MG Tablet PO ×2 (08:49→17:53)
[2019-02-13] MEDS: Enoxaparin 40 MG/0.4 ML Syringe SC (08:49)
[2019-02-13] MEDS: Atenolol 100 MG Tablet PO (08:51)
[2019-02-13 13:26] LABS: Lipase 250 U/L (73-393)
[2019-02-13] MEDS: 0.9% Normal Saline 1,000 ML 175 ML IV ×2 (15:07→20:31)
--- NOTE | 2019-02-13 16:57 | NURSING ---
PT RESTING QUIETLY W/EYES CLOSED
--- NOTE | 2019-02-13 17:17 | PCM.PROGNOTE ---
Subjective: Patient was seen and examined today, she still is complaining of generalized abdominal pain, repeat lipase today was normal. Over the years, patient has been at this hospital multiple times for acute recurrent pancreatitis felt to be secondary to her drinking. Patient admits to vodka use-she states she had one drink due to the fact she had no pain medication. - Physical Exam General: Alert, Oriented x3, Cooperative, No apparent distress, Well developed HEENT: Atraumatic, PERRLA, EOMI, Normocephalic Oral: Moist Mucosa Neck: Supple, Trachea Midline, Thyroid Normal Size and Texture Lungs: Clear to auscultation, Normal air movement, No rhonchi, No wheeze, No rales Cardiovascular: Regular rate, Regular Rhythm, Normal S1, Normal S2, No murmurs Abdomen: Bowel Sounds Present, Soft, Non-Distended, Tender - There is mild generalized tenderness to palpation of the abdomen Extremities: No edema, Capillary Refill Less than 3 Seconds Skin: No rashes, No breakdown Neurological: Cranial nerves II-XII grossly intact, Neuro grossly intact, Sensory exam intact to light touch and pain Psych/Mental Status: Normal Affect, Appropriate, Alert and oriented to time, place, person, mood and affect Vital Signs Temp Pulse Resp BP Pulse Ox 98.4 F 73 18 109/67 99 02/13/19 15:00 02/13/19 15:00 02/13/19 15:00 02/13/19 15:00 02/13/19 15:00 Oxygen Delivery Method Room Air Weight: 60 kg Body Mass Index (BMI) 21.7 Finger Stick Blood Glucose 103 Intake and Output for Last 24 Hours 02/11/19 02/12/19 02/13/19 23:59 23:59 23:59 Intake Total 1999 2601.67 / 2601.67 Balance 1999 2601.67 / 2601.67 Laboratory Tests Past 24 Hrs 02/12/19 02/12/19 02/12/19 17:46 17:46 17:46 WBC 7.9 RBC 4.51 Hgb 15.3 H Hct 44.4 MCV 98.4 MCH 33.9 H MCHC 34.5 RDW Std Deviation 47.8 H RDW Coeff of Jonathan 13.3 Plt Count 178 MPV 8.4 Immature Gran % (Auto) 1.000 H Neut % (Auto) 77.6 H Lymph % (Auto) 10.5 L [place] % (Auto) 10.1 H Eos % (Auto) 0.3 Baso % (Auto) 0.5 Absolute Neuts (auto) 6.2 Absolute Lymphs (auto) 0.83 Nucleated RBC % 0 Sodium 139 Potassium 3.2 L Chloride 101 Carbon Dioxide 25.0 Anion Gap 13 BUN 3 L Creatinine 0.54 L Estim Creat Clear Calc 48.30 Est GFR (MDRD) Af Amer 143 Est GFR (MDRD) Non-Af 118 BUN/Creatinine Ratio 5.6 L Glucose 159 H Calcium 8.5 Magnesium Total Bilirubin 1.40 H AST 450 H ALT 147 H Alkaline Phosphatase 287 H Total Protein 6.7 Albumin 2.8 L Globulin 3.9 Albumin/Globulin Ratio 0.7 L Lipase 747 H Ethyl Alcohol 7.0 02/12/19 02/13/19 02/13/19 17:46 06:10 06:10 WBC RBC Hgb Hct MCV MCH MCHC RDW Std Deviation RDW Coeff of Jonathan Plt Count MPV Immature Gran % (Auto) Neut % (Auto) Lymph % (Auto) [place] % (Auto) Eos % (Auto) Baso % (Auto) Absolute Neuts (auto) Absolute Lymphs (auto) Nucleated RBC % Sodium 143 Potassium 3.7 Chloride 108 H Carbon Dioxide 27.0 Anion Gap 8 BUN 2 L Creatinine 0.45 L Estim Creat Clear Calc 46.43 Est GFR (MDRD) Af Amer 176 Est GFR (MDRD) Non-Af 146 BUN/Creatinine Ratio 4.4 L Glucose 137 H Calcium 7.6 L Magnesium 1.1 L Total Bilirubin AST ALT Alkaline Phosphatase Total Protein Albumin Globulin Albumin/Globulin Ratio Lipase 250 Ethyl Alcohol Medical Necessity - Tobacco Use Smoking Status: Current every day smoker Tobacco Use: Cigarettes Assessment/Plan All Active Problems Acute recurrent pancreatitis (Acute) Abnormal LFTs (Acute) Alcoholic pancreatitis (Acute) #1 acute recurrent pancreatitis-secondary to alcohol use, patient again was cautioned not to intake any alcohol, she will remain on a clear liquid diet and vigorous IV fluid administration. #2 chronic alcoholism #3 chronic pain syndrome #4 osteoarthritis #5 bipolar disorder #6 hypertension #7 hypokalemia-corrected at this time #8 elevated liver enzymes-possibly secondary to alcohol intake-recheck [facility] tomorrow Code Visit Inpatient E&M: 69660 Subs Hosp L2
--- NOTE | 2019-02-13 17:25 | CASEMGMT ---
Addendum entered by Deborah Rosas 02/13/19 20:48: Was able to broach topic of patient concern about being weak. Patient stating to be able to move around the room on own and later stating to have no physical concerns with returning to home but to be concerned with pain. Encouraged patient to set up appointment with Dr. Mcintosh as Dr. Mcintosh is to assist patient in managing pain. Original Note: Social Work Consult: Patient states no help at home, no PCP, ran out of home meds, ETOH abuse. Informant: Dr. Nelson Chief Complaint: I am not ready to go home. I am weak. Marital/Social History: Single Living Situation: Lives alone in a 2 story home with 18 steps between floors and 3 steps to enter the home. Support/Resources: Dr. Mcintosh as pain management. Patient stating to have missed an appointment in December and needs to set up another one. Patient stating intention to call to set up another Dr. Mcintosh appointment. Patient denies having any support in the community. Patient stating decline home health services due to 'my house is a mess I would be embarrassed. Patient with history of SNF stay on the Transitional Care Unit. Patient stating to have needed food within the home and to have no concerns with obtaining medications. Education and Employment: Retired and voicing no concerns with comprehension or understanding. Mental Health Treatment/History: Patient denies any mental health history. Patient stating I might be pissed off, but not depressed or anxious. Patient later stating to have some anxiety when patient has pain. Patient denies any SI or HI currently or history of. DME: Walker and railing on steps. Patient does not utilize walker at home and reports to be independent with all ADL's prior to hospital stay. Transportation: Patient has vehicle and is able to drive self when I feel well. Patient stating to have limited transportation options when patient is not feeling well. Abuse Issues: Patient denies. Substance Abuse: Patient denies any substance abuse history. I only had a shot of Vodka for the pain. Patient denies alcohol consumption on a daily or weekly basis. Assessment: Met with patient in room. Introduced self as well as social science analyst role, patient agreeable to meeting with this social science analyst. This social science analyst broaching transportation options for patient when patient is not feeling well. Patient interested in information about vouchers through [employer]. This social science analyst providing patient with information on how to apply for transportation assistance through [employer]. Patient thanking this social science analyst for information. When this social science analyst broached topic of medications, help at home, PCP, and alcohol abuse patient denies needing any assistance or having an issue with any. Patient only interested in transportation information. Did attempt to speak with patient multiple times on referral topics, patient denies any issues. Support provided. PLAN: Discharge to home. KIM Fuentes
[2019-02-13] MEDS: Calcium Carbonate 500 MG Tablet 1000 MG PO (18:35)
[2019-02-13] MEDS: MELATONIN 3 MG TABLET PO (22:21)
[2019-02-14] MEDS: 0.9% Normal Saline 1,000 ML 175 ML IV ×2 (02:15→07:55)
[2019-02-14 02:20] VITALS: BP 133/74; PULSE 75; RESP 20; TEMP 36.6; O2SAT 94
[2019-02-14] MEDS: DiphenhydrAMINE 25 MG Capsule PO ×2 (02:20→20:48)
[2019-02-14] MEDS: Morphine 2 MG/ML Syringe IV (02:28)
[2019-02-14] MEDS: 0.9% NaCl Peripheral Flush Adult/Peds IV (02:28)
[2019-02-14] MEDS: Ondansetron 4 MG/2 ML Vial IV (02:28)
[2019-02-14 06:20] LABS: ALB/GLOB Ratio 0.6 RATIO (0.9-2.4); AST(SGOT) 156 U/L (15-37); Alanine Aminotransfer ALT/SGPT 76 U/L (13-56); Albumin, Serum 1.8 g/dL (3.2-5.0); Alkaline Phosphatase 163 U/L (45-117); Anion Gap 7 (5-15); BUN 1 mg/dL (7-18); BUN/Creat Ratio 2.6 RATIO (10-20); Calcium,Total 7.3 mg/dL (8.5-10.1); Chloride 114 mmol/L (98-107); Creatinine, Serum 0.38 mg/dL (0.55-1.02); EST Glomerular Filtration Rate 179 mL/min (>60); Est Glom Filt Rate - Afr Amer 216 mL/min (>60); Estimated Creatinine Clearance 46.43 ml/min; Globulin 2.8 g/dL (2.2-4.2); Glucose 101 mg/dL (74-106); Magnesium 1.6 mg/dL (1.6-2.6); Potassium 3.5 mmol/L (3.5-5.1); Protein, Total 4.6 g/dL (6.4-8.2); Sodium Level 145 mmol/L (136-145)
[2019-02-14] MEDS: Levothyroxine 75 MCG Tablet PO (06:21)
[2019-02-14 07:15] VITALS: O2SAT 94
[2019-02-14] MEDS: Folic Acid 1 MG Tablet PO (08:14)
[2019-02-14] MEDS: Multivitamins,Ther W-Minerals Tablet 1 TABLET PO (08:14)
[2019-02-14] MEDS: Thiamine Hydrochloride 100 MG Tablet PO ×2 (08:14→17:04)
[2019-02-14 08:20] VITALS: BP 134/73; PULSE 79; RESP 18; TEMP 36.6; O2SAT 95
[2019-02-14] MEDS: traMADol 50 MG Tablet 100 MG PO ×3 (10:18→23:57)
[2019-02-14] MEDS: Atenolol 100 MG Tablet PO (10:20)
[2019-02-14] MEDS: Enoxaparin 40 MG/0.4 ML Syringe SC (10:20)
[2019-02-14] MEDS: 0.9% Normal Saline 1,000 ML 120 ML IV ×2 (12:38→17:30)
--- NOTE | 2019-02-14 16:10 | PN_ITS ---
Subjective: Patient was seen and examined today, she states she still has some generalized abdominal pain but she states she is too weak to go home, she states she cannot walk up her stairs at home. Patient's liver enzymes are improved today, I did not repeat her lipase. I placed the patient on Ultram for pain today-she requested to take this medication for pain rather than request other narcotics. Currently has some IV morphine ordered for severe pain. Objective: General: Alert, Oriented x3, Cooperative, No apparent distress, Well developed HEENT: Atraumatic, PERRLA, EOMI, Normocephalic Oral: Moist Mucosa Neck: Supple, Trachea Midline, Thyroid Normal Size and Texture Lungs: Clear to auscultation, Normal air movement, No rhonchi, No wheeze, No rales Cardiovascular: Regular rate, Regular Rhythm, Normal S1, Normal S2, No murmurs Abdomen: Bowel Sounds Present, Soft, Non-Distended, Tender - There is mild generalized tenderness to palpation of the abdomen Extremities: No edema, Capillary Refill Less than 3 Seconds Skin: No rashes, No breakdown Neurological: Cranial nerves II-XII grossly intact, Neuro grossly intact, Sensory exam intact to light touch and pain Psych/Mental Status: Patient has flat affect, she does not appear anxious - Physical Exam Vital Signs Temp Pulse Resp BP Pulse Ox 97.9 F 79 18 134/73 H 95 02/14/19 08:20 02/14/19 08:20 02/14/19 08:20 02/14/19 08:20 02/14/19 08:20 Oxygen Delivery Method Room Air Weight: 60 kg Body Mass Index (BMI) 21.7 Finger Stick Blood Glucose 103 Intake and Output for Last 24 Hours 02/12/19 02/13/19 02/14/19 23:59 23:59 23:59 Intake Total 1999 3886.67 / 4186.67 4311.67 / 4311.67 Output Total 250 / 250 Balance 1999 3886.67 / 3936.67 4061.67 / 4061.67 Laboratory Tests Past 24 Hrs 02/14/19 05:33 Sodium 145 Potassium 3.5 Chloride 114 H Carbon Dioxide 24.0 Anion Gap 7 BUN 1 L Creatinine 0.38 L Estim Creat Clear Calc 46.43 Est GFR (MDRD) Af Amer 216 Est GFR (MDRD) Non-Af 179 BUN/Creatinine Ratio 2.6 L Glucose 101 Calcium 7.3 L Magnesium 1.6 Total Bilirubin 0.90 AST 156 H ALT 76 H Alkaline Phosphatase 163 H Total Protein 4.6 L Albumin 1.8 L Globulin 2.8 Albumin/Globulin Ratio 0.6 L Medical Necessity - Tobacco Use Smoking Status: Current every day smoker Tobacco Use: Cigarettes Assessment/Plan All Active Problems Acute recurrent pancreatitis (Acute) Abnormal LFTs (Acute) Alcoholic pancreatitis (Acute) #1 acute recurrent pancreatitis-secondary to alcohol use, her diet will be advanced as tolerated #2 chronic alcoholism #3 chronic pain syndrome #4 osteoarthritis #5 bipolar disorder-I am not sure that this is not causing some of the patient's problems with her ADLs. #6 hypertension #7 hypokalemia-corrected at this time #8 elevated liver enzymes-possibly secondary to alcohol intake #9 generalized debility-patient will is being seen by PT and OT, she may need placement in a nursing home facility for short-term rehab Code Visit Inpatient E&M: 75680 Subs Hosp L2
[2019-02-14] MEDS: Calcium Carbonate 500 MG Tablet 1000 MG PO (17:03)
[2019-02-14 17:04] VITALS: BP 128/70; PULSE 70; RESP 18; TEMP 36.9; O2SAT 96
[2019-02-14 20:20] VITALS: BP 140/74; PULSE 75; RESP 18; TEMP 36.3; O2SAT 96
[2019-02-14] MEDS: MELATONIN 3 MG TABLET PO (23:57)
[2019-02-15] VITALS: BP 158/88; PULSE 82; RESP 18; TEMP 36.7; O2SAT 94
[2019-02-15] MEDS: 0.9% Normal Saline 1,000 ML 120 ML IV ×2 (01:53→10:22)
[2019-02-15 02:05] VITALS: BP 147/93; PULSE 78; RESP 20; TEMP 36.8; O2SAT 92
[2019-02-15] MEDS: Levothyroxine 75 MCG Tablet PO (06:42)
[2019-02-15] MEDS: Ondansetron 4 MG/2 ML Vial IV (06:42)
[2019-02-15] MEDS: traMADol 50 MG Tablet 100 MG PO (06:43)
[2019-02-15 07:30] VITALS: BP 125/95; PULSE 81; RESP 18; TEMP 37.1; O2SAT 92
[2019-02-15 07:33] VITALS: BP 125/95; PULSE 81; RESP 18; TEMP 37.1; O2SAT 92
[2019-02-15] MEDS: Thiamine Hydrochloride 100 MG Tablet PO (08:08)
[2019-02-15] MEDS: Folic Acid 1 MG Tablet PO (08:08)
[2019-02-15] MEDS: Atenolol 100 MG Tablet PO (08:09)
[2019-02-15] MEDS: Ensure Clear 120 ML Liquid PO (08:10)
[2019-02-15] MEDS: Enoxaparin 40 MG/0.4 ML Syringe SC (10:19)
--- NOTE | 2019-02-15 10:19 | PCM.PROGNOTE ---
Subjective: The patient is a 69-year-old female with a history of alcohol dependence, alcoholic pancreatitis, chronic pain in pain management, hypertension, hypothyroidism, fibromyalgia, dysphagia, rheumatoid arthritis-never confirmed, RA is negative, psoriasis, Polar disorder and depression with history of suicide attempt who presented to the emergency on 02/12/2019 complaining of severe abdominal pain. She had been seen 1 week prior in the emergency room with the same complaint. She had been out of [facility]. She was diagnosed with a urinary tract infection and was discharged from the ER with a prescription for Keflex for 10 days. Urine culture grew a pansensitive E. coli. At presentation to the emergency department on 02/12/2019 the vital signs were temperature 98 ?F, pulse rate 117, blood pressure 148/98, respiratory rate 14 and she was 98% saturated on room air. White blood cell count was normal at 7.9 and hemoglobin and platelets were also normal. Potassium was mildly decreased at 3.2 and the BUN was 3 with a creatinine of 0.54. Magnesium was low at 1.1 and the total bilirubin was 1.4. AST was 450 with an ALT of 147 and this is indicative of alcoholic hepatitis. the AST on 02/04 was 176 with an ALT of 72. Alkaline phosphatase was 287. Lipase was 747 and a repeat less than 24 hours later was normal at 250. PT in August 2018 was 14.0. A noncontrasted CT of the abdomen and pelvis showed hepatomegaly and diffuse fatty infiltration of the liver. There were stable punctate calcifications in the region of the head of the pancreas likely secondary to history of alcoholic pancreatitis. She was admitted to the hospital with a diagnosis of acute recurrent pancreatitis, hypokalemia and hypomagnesemia. All events of the past 24 hours of been reviewed. She has been afebrile since admission. Blood pressure is well controlled and the heart rate is within normal limits. She is 92% saturated on room air. Oral intake on 02/14/2019 was 1320. All lab was personally reviewed. She had no labs drawn on the but the CMP on 02/14/2019 showed a potassium of 3.5 and the LFTs have trended down with an AST of 156 and an ALT of 76. Alkaline phosphatase is 163 and the bilirubin is within normal limits. She was seen by physical therapy today and ambulated 400 FWW Has been taking Tramadol 100 mg about every 6 hours. the last dose of MS was > 24 hours ago - Physical Exam Vital Signs Temp Pulse Resp BP Pulse Ox 98.7 F 81 18 125/95 H 92 02/15/19 07:33 02/15/19 07:33 02/15/19 07:33 02/15/19 07:33 02/15/19 07:33 Oxygen Delivery Method Room Air Weight: 132 lb 4.438 oz Body Mass Index (BMI) 21.7 Finger Stick Blood Glucose 103 Intake and Output for Last 24 Hours 02/13/19 02/14/19 02/15/19 23:59 23:59 23:59 Intake Total 3886.67 / 4186.67 5995.67 / 6232.67 1685 / 1685 Output Total 250 / 250 Balance 3886.67 / 3936.67 5745.67 / 5982.67 1685 / 1685 Medical Necessity - Tobacco Use Smoking Status: Current every day smoker Tobacco Use: Cigarettes Assessment/Plan All Active Problems Acute recurrent pancreatitis (Acute) Abnormal LFTs (Acute) Alcoholic pancreatitis (Acute)
[2019-02-15 10:24] VITALS: PULSE 72
--- NOTE | 2019-02-15 11:12 | PCM.DC ---
You will use the following diet at home:: Other - low fat. No alcohol. Your food should be the consistency of: Regular Your liquids should be the consistency of: Regular/Thin Discharge Activity: Return to Normal Activity Call your doctor if you observe: Fever of 101 or Higher, Fainting spells, Chest pain, Calf discomfort Additional Instructions: 1. No alcohol. 2. You signed a contract with Dr. Mcintosh that states you will NOT get pain medications from ANY other physician. I am not giving you any pain medication. You will have to follow up with Dr. Mcintosh for pain medication. 3. You will need to follow up with Dr. Garcia to manage the autoimmune disorder you have. 4. Follow up at the [facility] for your routine medical care OR find a PCP to follow up with. 5. You have a hx of bipolar disorder and you are not on any medication at the present time. I think it would be a good idea to follow up with the counselling center. Allergies/Adverse Reactions: Allergies nickel [Nickel] Allergy (Verified 02/12/19 17:24) Rash prochlorperazine edisylate [From Compazine] Adverse Reaction (Verified 02/12/19 17:24) disoriented prochlorperazine maleate [From Compazine] Adverse Reaction (Verified 02/12/19 17:24) DISORIENTED Medications to take at Discharge Atenolol [Tenormin (beta rené)] 100 mg PO DAILY 05/20/17 Levothyroxine [Synthroid] 75 mcg PO DAILY #30 tab 10/23/17 traMADol [Ultram] 1 tab PO TID 02/14/19 Primary Care Physician: Care Physician,No Primary [Primary Care Provider] - Test Results: Test results from this visit will be discussed in further detail at your follow-up appointment, if applicable. Please Follow Up With: [facility] When: in 1 week Please Follow Up With: Karin Mcintosh MD When: EMILIE for a prescription for pain medications Please Follow Up With: Shea Garcia MD When: EMILIE for autoimmune disorder Proposed Discharge Date: 02/15/19
--- NOTE | 2019-02-15 11:23 | PCM.DC.SUM ---
Discharge Date and Diagnosis - Problem List Patient Problems: Active and Suspected Problems Alcoholic hepatitis (Acute) Date of Admission: 02/12/19 Date of Discharge: 02/15/19 - Primary Discharge Diagnosis Active and Suspected Problems Alcoholic hepatitis (Acute) Acute pancreatitis-ruled out Hypomagnesemia-resolved with supplementation Hypokalemia-resolved with supplementation Recent UTI due to E. Coli - resolved - Secondary Discharge Diagnosis Chronic Problems Hepatic steatosis (Chronic)- due to alcohol abuse with chronic elevation of LFT's but a normal PT Alcohol abuse (Chronic) - pt denies but alcohol levels elevated in the past Hypertension (Chronic) Hypothyroidism (Chronic) Anxiety (Chronic) Fibromyalgia (Chronic) Dysphagia (Chronic) Rheumatoid arthritis (Chronic) never confirmed.....RA is negative.Has seen Dr. Garcia in the past Psoriasis (Chronic) Chronic back pain (Chronic) osteoarthritis Delusional disorder (Chronic) Bipolar disorder (Chronic) Depression with H/o suicidal attempt (Chronic) Tobacco dependence Hospital Course and Treatment Imaging Results: Clinical Impression(s) from Imaging Studies Abdomen/Pelvis CT 02/12/19 18:21 IMPRESSION: 1. Prominent liver with diffuse fatty infiltration. 2. No acute intra-abdominal process or major interval change. Electronically Signed: Cesario Sauer DO at 19:09 EDT Tel [phone], Service support , none Operations: None Procedures: None Summary of Care Provided: The patient is a 69-year-old female with a history of alcohol dependence, alcoholic pancreatitis, chronic pain (has seen pain management, hypertension, hypothyroidism, fibromyalgia, dysphagia, rheumatoid arthritis-never confirmed, RA is negative, psoriasis, Polar disorder and depression with history of suicide attempt who presented to the emergency on 02/12/2019 complaining of severe abdominal pain. She had been seen 1 week prior in the emergency room with the same complaint. She had been out of [facility]. She was diagnosed with a urinary tract infection and was discharged from the ER with a prescription for Keflex for 10 days. Urine culture grew a pansensitive E. coli. At presentation to the emergency department on 02/12/2019 the vital signs were temperature 98 ?F, pulse rate 117, blood pressure 148/98, respiratory rate 14 and she was 98% saturated on room air. White blood cell count was normal at 7.9 and hemoglobin and platelets were also normal. Potassium was mildly decreased at 3.2 and the BUN was 3 with a creatinine of 0.54. Magnesium was low at 1.1 and the total bilirubin was 1.4. AST was 450 with an ALT of 147 and this is indicative of alcoholic hepatitis. the AST on 02/04 was 176 with an ALT of 72. Alkaline phosphatase was 287. Lipase was 747 and a repeat less than 24 hours later was normal at 250. PT in August 2018 was 14.0. A noncontrasted CT of the abdomen and pelvis showed hepatomegaly and diffuse fatty infiltration of the liver. There were stable punctate calcifications in the region of the head of the pancreas likely secondary to history of alcoholic pancreatitis. She was admitted to the hospital with a diagnosis of acute recurrent pancreatitis, hypokalemia and hypomagnesemia. Potassium and magnesium were supplemented and on recheck were within normal limits. She has been afebrile and she has good oral intake. LFT's have been improved ....not drinking in the hospital. CT of the abd shows severe hepatic steatosis. I know this pt from previous admissions and she always denies alcohol consumption but has had elevated ETOH levels on Tox screens in the past. This did fall off after 2014 but, the ETOH in August was 111. she has a known hx of BPD but does not follow up with the counselling center and she is on no psychiatric medications. She has seen Dr. Mcintosh for pain but, has not seen him in several months....she tells me she is in too much pain to go to his office. She comes to the ED expecting to get pain medication. She tells me that she has an autoimmune disorder and has seen Dr. Garcia in the past but, she is not currently seeing a temperature regulator and is on no medication for a connective tissue disease. She was discharged on 02/15/19 and was told if she needs pain medications she will have to follow up with Dr. Mcintosh as she signed a contract with Dr. Mcintosh stating she would only get pain medication from him. She was instructed to discontinue any alcohol consumption. I also suggested she follow up with Dr. Garcia and with the counselling ctr. She has no PCP and she follows at the [facility]. the SW in the ED was contacted and will work on a plan of care for the pt when she comes back to the ED c/o abd pain. PHYSICAL EXAM: GENERAL: alert, oriented X 3, Cooperative, NAD ORAL: moist mucosa, no mucosal lesions NECK: No JVD, supple, trachea midline LUNGS: CTA, symmetric chest expansion HEART: RRR, Normal S1 and S2, no rub, no gallop ABDOMEN: soft, mild generalized complaint of tenderness with palpation of the abdomen but no guarding, ND, BS present EXTREMITIES: no edema, no cyanosis, no calf tenderness SKIN: No rashes, no breakdown NEUROLOGIC: no focal neurologic deficits PSYCH: Flat affect, does not appear anxious, she does not appear depressed and she is at baseline This note was generated with [employer] dictation software. It may contain incorrect words, spelling, and punctuation that were not noted in checking the note before signing. Patient Problems: Active and Suspected Problems Alcoholic hepatitis (Acute) - Physical Exam Vital Signs Temp Pulse Resp BP Pulse Ox 98.7 F 72 18 125/95 H 92 02/15/19 07:33 02/15/19 10:24 02/15/19 07:33 02/15/19 07:33 02/15/19 07:33 Oxygen Delivery Method Room Air Weight: 132 lb 4.438 oz Body Mass Index (BMI) 21.7 Finger Stick Blood Glucose 103 Intake and Output for Last 24 Hours 02/13/19 02/14/19 02/15/19 23:59 23:59 23:59 Intake Total 3886.67 / 4186.67 5995.67 / 6232.67 2236 / 2236 Output Total 250 / 250 Balance 3886.67 / 3936.67 5745.67 / 5982.67 2236 Discharge Activity: Return to Normal Activity Call your doctor if you observe: Fever of 101 or Higher, Fainting spells, Chest pain, Calf discomfort Home Medications: Medications to take at Discharge Atenolol [Tenormin (beta rené)] 100 mg PO DAILY 05/20/17 Levothyroxine [Synthroid] 75 mcg PO DAILY #30 tab 10/23/17 traMADol [Ultram] 1 tab PO TID 02/14/19 Primary Care Physician: Care Physician,No Primary [Primary Care Provider] - [facility] When: in 1 week Please Follow Up With: Karin Mcintosh MD When: EMILIE for a prescription for pain medications Please Follow Up With: Shea Garcia MD When: EMILIE for autoimmune disorder Disposition: Home Minutes spent on discharge:: 30 Patient Condition:: Stable Medical Necessity - Tobacco Use Smoking Status: Current every day smoker Tobacco Use: Cigarettes Meaningful Use Info Meaningful Use Diagnoses (Choose all that apply): None applicable Code Visit Inpatient E&M: 17988 Disch Hosp
--- NOTE | 2019-02-15 12:41 | NURSING ---
Pt given d/c information but states that she will not be following up because she has no way to get to appointments and that she cannot get up stairs on transit. Pt notified that Dr. Mcintosh is here in hospital and she could possibly call to schedule ride with hospital van. Also, pt given information from previous shift/ s.w. on other transportation options that are in [place] and affordable.
--- NOTE | 2019-02-15 14:22 | NURSING ---
Addendum entered by Dilcia Choe 02/15/19 14:25: Pt easily agitated and verbally aggressive at times. She told MENTAL HEALTH THERAPIST that was in room assisting her prepare for d/c, to go fuck yourself. (Pt had also been educated on need for appointment at counseling center per Dr. darling/c instructions. Pt nodded head.) Original Note: Pt bed alarm sounded and pt was in bathroom. She states that she must have her walker to get back to bed- however, has been ambulating independently around unit. Pt verbally agitated that she cannot receive prescription for ultram- as she has signed contract with Dr. Mcintosh that no prescriptions are to be given by any other physician. Notified pt that she must go to appointments that have been set up for her during this stay- which includes Dr. Mcintosh's office tomorrow. Understanding verbalized by pt. Information given on transportation- pt placed in bag to take home. hospital van to transport pt back home at 1430
--- NOTE | 2019-02-16 13:38 | CASEMGMT ---
LEYDA DC PHONE CALL DC DATE: 02/15/19 DC Disposition: Home Diagnosis on Discharge: Alcoholic hepatitis LACE/STRATA: 14 Attempted call to phone. No answer and no message machine with name identifier. Tyree KING RN ACM
== END 2019-02-15 14:25 | disposition home or self-care (01) | DRG 433 ==
LOC: ED 18:04 → MS3 21:25
PROVIDERS: Internal Medicine; Admitting Provider Hospitalist; Emergency Provider Emergency Medicine; Referring Provider Hospitalist; Visit Provider Internal Medicine
DX: K70.10 Alcoholic hepatitis without ascites (principal); K86.0 Alcohol-induced chronic pancreatitis; F10.20 Alcohol dependence, uncomplicated; Y90.9 Presence of alcohol in blood, level not specified; E83.42 Hypomagnesemia; E87.6 Hypokalemia; K76.0 Fatty (change of) liver, not elsewhere classified; I10 Essential (primary) hypertension; E03.9 Hypothyroidism, unspecified; M79.7 Fibromyalgia; F41.9 Anxiety disorder, unspecified; M06.9 Rheumatoid arthritis, unspecified; L40.50 Arthropathic psoriasis, unspecified; M19.90 Unspecified osteoarthritis, unspecified site; F22 Delusional disorders; F31.9 Bipolar disorder, unspecified; R13.10 Dysphagia, unspecified; G89.4 Chronic pain syndrome; F17.210 Nicotine dependence, cigarettes, uncomplicated; Z91.5 Personal history of self-harm; Z79.890 Hormone replacement therapy; Z79.899 Other long term (current) drug therapy
CPT/HCPCS: 36415; 74160; 74177; 80048; 80053; 80320; 83690; 83735; 85025; 92526; 92610; 93005; 97110; 97116; 97162; 97165; 97530; 97802; 99285; 99406; J7030; J7120; A4216; G0480; J2405

== ENCOUNTER 2019-02-21 12:58 | Emergency (ER) | payer SELFPAY ==
[2019-02-12 20:52] VITALS: BMI 21.7
[2019-02-21 12:59] VITALS: BP 138/78; PULSE 105; RESP 16; TEMP 36.9; O2SAT 98; BMI 21.3
[2019-02-21] MEDS: traMADol 50 MG Tablet PO (14:07)
[2019-02-21 14:10] VITALS: BP 142/68; PULSE 103; RESP 16; O2SAT 96
[2019-02-21 14:15] LABS: Hematocrit 37.4 % (37-47); Hemoglobin 12.4 g/dL (12.0-15.0); Mean Corp Hgb Conc 33.2 g/dL (32-36); Mean Corpuscular Hgb 33.9 pg (27.0-32.0); Mean Corpuscular Volume 102.2 fL (81-99); Mean Platelet Vol. 8.7 fl (6.2-12.0); Platelet Count 318 K/mm3 (150-450); RBC Distribution Width CV 14.7 % (11.6-14.6); RBC Distribution Width SD 54.9 fl (35.1-43.9); Red Blood Count 3.66 M/mm3 (4.2-5.4)
[2019-02-21 14:28] LABS: Anion Gap 7 (5-15); BUN 3 mg/dL (7-18); BUN/Creat Ratio 4.8 RATIO (10-20); Calcium,Total 8.2 mg/dL (8.5-10.1); Chloride 103 mmol/L (98-107); Creatinine, Serum 0.63 mg/dL (0.55-1.02); EST Glomerular Filtration Rate 99 mL/min (>60); Est Glom Filt Rate - Afr Amer 120 mL/min (>60); Glucose 222 mg/dL (74-106); Potassium 3.2 mmol/L (3.5-5.1); Sodium Level 142 mmol/L (136-145)
[2019-02-21] MEDS: Ondansetron 4 MG/2 ML Vial IV (14:52)
--- NOTE | 2019-02-21 15:11 | ED.VISSUMM ---
- ER Visit Summary Date of Service: 02/21/19 Chief Complaint: Possible blood with stool History of Present Illness: The patient is a 69 F history of chronic pain and compression fractures of her spine. Patient states that she has had rectal bleeding intermittently mild since yesterday. She is on no blood thinners. She denies being lightheaded or dizzy. Physical Examination: Older female no acute distress vital signs are stable afebrile. Initial blood pressure 130/78. H EENT exam unremarkable. Moist week's membranes. Lungs clear to auscultation. Heart regular rhythm rate about 100 no murmur. Abdomen soft nontender normal bowel sounds no peritoneal signs. Remedies moves all 4. Neurologically awake alert. Test Results: CBC shows a white count of 9. Hemoglobin 12.4 which is her baseline. Electrolytes unremarkable potassium 3.2. We will go to 22. Normal gap and creatinine. Emergency Department Course and Treatment: She was given 1 Ultram for chronic pain. She and I discussed her test results along with her son in the room. There is nothing that she needs to be admitted for. She has had prior colonoscopy and upper endoscopy. She is able to swallow at this time. She will be given a referral to a local primary care physician for outpatient follow-up and possible colonoscopy. Treatment Plan: Discharge with outpatient follow-up Disposition: Discharge Impression: Rectal bleeding This note was generated with [employer] dictation software. It may contain incorrect words, spelling, and punctuation that were not noted in review of the chart prior to signing ED Disposition - Plan for ED Patient: Referrals: Moreno Johnson MD [Primary Care Provider] -
--- NOTE | 2019-02-21 15:13 | ED.DEP ---
ED Disposition - Plan for ED Patient: Disposition: Home or Assisted Living Instructions: RECTAL BLEED, Stable Referrals: Nguyễn Prakash MD [STAFF PHYSICIAN] - As soon as possible Additional Instructions: Outpatient follow-up and will need referral for possible colonoscopy for rectal bleeding.
[2019-02-21 15:35] VITALS: BP 147/83; PULSE 84; RESP 16; O2SAT 99
--- NOTE | 2019-02-21 15:35 | ED.RN ---
upon entering room with discharge instructions pt refusing to leave. Dr. Serrano called back into the room. Dr Serrano educated the patient on why she is being discharged and to follow up with pain management and new PCP. Pt stating she is just going to go back home and call 911 when pain medication wears off. Pt assisted into wheelchair and family member is driving her home.
== END 2019-02-21 15:37 | disposition home or self-care (01) ==
PROVIDERS: Emergency Provider Emergency Medicine; Family Provider Internal Medicine; PCP Internal Medicine
DX: K62.5 Hemorrhage of anus and rectum (principal); G89.29 Other chronic pain; Z72.0 Tobacco use
CPT/HCPCS: 80048; 85027; 96374; 99285; A4216; J2405

== ENCOUNTER 2019-04-13 14:32 | Inpatient (IN) | payer MEDICARE, SELFPAY ==
[2019-04-13] VITALS (10 sets, daily range): BP systolic 124–136; BP diastolic 71–82; PULSE 81–118; RESP 16–18; TEMP 36.6–37.1; O2SAT 98–100; BMI 21.3
--- NOTE | 2019-04-13 14:53 | ED.DCSUM_ITS ---
History of Present Illness Chief Complaint: Nausea/Vomiting Informant: Patient Onset: Yesterday Context: Onset with activity, Gradual Onset Timing: Intermittent Current Severity: Moderate Maximum Severity: Moderate Narrative: Patient presents with multiple symptoms. She has a history of autoimmune pancreatitis. However, she still does drink alcohol. She states over the past 2 days, she is had diffuse myalgias, nausea, vomiting, and midepigastric pain. She denies any hematemesis. She denies any fevers or chills. She states she is been under to keep her pain medication down. She states that she has not been drinking. She does get bouts of this from time to time. She denies any other systemic symptoms. Prior similar symptoms: No Recent Illness/Hospitalization: No Past Medical History - Allergies and Home Meds Allergies/Adverse Reactions: Allergies nickel [Nickel] Allergy (Verified 04/13/19 14:33) Rash prochlorperazine edisylate [From Compazine] Adverse Reaction (Verified 04/13/19 14:33) disoriented prochlorperazine maleate [From Compazine] Adverse Reaction (Verified 04/13/19 14:33) DISORIENTED Primary Care Physician: Brant Howard Chi, MD [Primary Care Provider] - Prior records reviewed: Yes Past Medical History: - Surgical History: tonsillectomy Smoking Status: Current every day smoker - Family History Maternal Family History: Reports: - - Reports autoimmune disease. Paternal Family History: Reports: - - Reports that her father from aspiration pneumonia at age 92. And her grandfather from pneumonia at age 32. Review of Systems General: Denies: Chills, Fever, Sweats Eyes: Denies: Visual changes - bilaterally, Diplopia ENT: Denies: Rhinorrhea, Sore throat Cardiovascular: Denies: Chest pain, Palpitations Respiratory: Reports: -. Denies: Dyspnea, Cough, Dyspnea on exertion Gastrointestinal: Reports: Abdominal pain, Nausea, Vomiting. Denies: Diarrhea, Melena, Hematochezia Genitourinary: Denies: Dysuria, Hematuria, Frequency Musculoskeletal: Reports: Myalgias, Arthralgias. Denies: Back pain, Extremity Pain Skin: Denies: Rash, Wounds Neurological: Denies: Headache, Weakness, Numbness Physical Exam Vital Signs/Narrative: Vital Signs Temp Pulse Resp BP Pulse Ox 04/13/19 14:34 98.7 F 118 H 16 124/78 H 100 Inital Vital Signs reviewed: Yes General: Well nourished, Well developed, No Acute Distress Head: Normocephalic, Atraumatic Eyes: Perrl, EOMI ENT: Moist mucous membranes, No rhinorrhea Neck: Supple, Nontender Cardiovascular: Regular rate, Regular rhythm, No murmurs Respiratory: No distress, CTA bilaterally, Chest nontender Abdomen: Soft, Nondistended, Normal bowel sounds, Tender. Negative for: Guarding, Rebound tenderness Back: Nontender, Normal Inspection Extremities: Nontender, No edema Skin: Normal color, No rash Neurological: Alert, Oriented x3, Cranial nerves II-XII grossly intact, Normal Strength, Normal Sensation Psychological: Normal affect, Normal Mood Diagnostic/Tx/Re-eval Abnormal Lab Results 04/13/19 04/13/19 15:00 15:00 WBC 7.3 RBC 3.92 L Hgb 13.5 Hct 39.7 MCV 101.3 H MCH 34.4 H MCHC 34.0 RDW Std Deviation 47.4 H RDW Coeff of Jonathan 12.5 Plt Count 197 MPV 8.9 Immature Gran % (Auto) 0.300 Neut % (Auto) 81.3 H Lymph % (Auto) 8.7 L [place] % (Auto) 8.6 Eos % (Auto) 0.7 Baso % (Auto) 0.4 Absolute Neuts (auto) 5.9 Absolute Lymphs (auto) 0.63 L Nucleated RBC % 0 Sodium 137 Potassium 2.6 L* Chloride 97 L Carbon Dioxide 28.0 Anion Gap 12 BUN 5 L Creatinine 0.72 Estim Creat Clear Calc 46.43 Est GFR (MDRD) Af Amer 104 Est GFR (MDRD) Non-Af 86 BUN/Creatinine Ratio 7.0 L Glucose 178 H Calcium 8.3 L Total Bilirubin 1.10 H AST 161 H ALT 53 Alkaline Phosphatase 187 H Total Protein 7.0 Albumin 3.0 L Globulin 4.0 Albumin/Globulin Ratio 0.8 L Lipase 41 L - Rhythm Strip Rhythm Strip: Sinus Rhythm Rate: 90 Ectopy: None - EKG Initial EKG Interpretation: Sinus Rhythm, No Acute Injury Pattern, - - Prolonged QT with QTC 530. Sinus rhythm at 80. No acute ischemia. - Medical Decision Making The patient presents with nausea and vomiting. IV was established. She was given nausea medication and fluids. Screening labs do show rather significant hypokalemia. EKG was obtained which shows a prolonged QT. The patient is still nauseated and unable to tolerate oral potassium. She is given IV replacement. Given her prolonged QT and hypokalemia, I do feel that she is going to benefit from observation. The patient was discussed with the hospitalist. Impression 1. Nausea and vomiting 2. Hypokalemia 3. Prolonged QT ED Disposition - Plan for ED Patient: Referrals: Brant Howard Chi, MD [Primary Care Provider] -
[2019-04-13] MEDS: 0.9% Normal Saline 1,000 ML 1000 ML IV (14:56)
[2019-04-13] MEDS: Ondansetron 4 MG/2 ML Vial IV ×2 (14:56→22:22)
[2019-04-13] MEDS: Morphine 4 MG/ML Syringe IV (14:56)
[2019-04-13 15:06] LABS: Absolute Lymphocyte Count 0.63 X10^3/uL (0.83-4.51); Absolute Neutrophil Count 5.9 X10^3/uL (2.0-7.7); Basophil# 0.03 X10^3/uL; Basophil% 0.4 % (0-1); Eosinophil# 0.05 X10^3/uL; Eosinophils% 0.7 % (0-5); Hematocrit 39.7 % (37-47); Hemoglobin 13.5 g/dL (12.0-15.0); Lymphocyte # 0.63 X10^3/ul (4.0); Lymphocyte % 8.7 % (19-41); Mean Corpuscular Hgb 34.4 pg (27.0-32.0); Mean Corpuscular Volume 101.3 fL (81-99); Mean Platelet Vol. 8.9 fl (6.2-12.0); Monocyte# 0.62 X10^3/uL; Monocyte% 8.6 % (0-10); NRBC Flagged by Analyzer 0 % (0-5); Neutrophil % 81.3 % (47-70); Platelet Count 197 K/mm3 (150-450); RBC Distribution Width CV 12.5 % (11.6-14.6); RBC Distribution Width SD 47.4 fl (35.1-43.9); Red Blood Count 3.92 M/mm3 (4.2-5.4); White Blood Count 7.3 K/mm3 (4.4-11.0)
--- NOTE | 2019-04-13 15:25 | EKG12_ITS ---
Test Reason : NAUSEA/VOMITING Blood Pressure : / mmHG Vent. Rate : 080 BPM Atrial Rate : 080 BPM P-R Int : 162 ms QRS Dur : 076 ms QT Int : 460 ms P-R-T Axes : 051 039 027 degrees QTc Int : 530 ms Normal sinus rhythm Abnormal ECG Confirmed by LISSETT LORENZ, XIAO ([id number]), metropolitan editor SARITHA COLON ([id number]) on 04/20/2019 2:07:58 PM Referred By: JENNIFER Confirmed By:XIAO GALEANA MD
--- NOTE | 2019-04-13 15:25 | ED.RN ---
potassium 2.6 called from the lab. dr burch aware
[2019-04-13 15:26] LABS: ALB/GLOB Ratio 0.8 RATIO (0.9-2.4); AST(SGOT) 161 U/L (15-37); Alanine Aminotransfer ALT/SGPT 53 U/L (13-56); Alkaline Phosphatase 187 U/L (45-117); Anion Gap 12 (5-15); BUN 5 mg/dL (7-18); Calcium,Total 8.3 mg/dL (8.5-10.1); Chloride 97 mmol/L (98-107); Creatinine, Serum 0.72 mg/dL (0.55-1.02); EST Glomerular Filtration Rate 86 mL/min (>60); Est Glom Filt Rate - Afr Amer 104 mL/min (>60); Estimated Creatinine Clearance 46.43 ml/min; Glucose 178 mg/dL (74-106); Lipase 41 U/L (73-393); Potassium 2.6 mmol/L (3.5-5.1); Sodium Level 137 mmol/L (136-145)
--- NOTE | 2019-04-13 15:53 | PCM.HP.STD ---
Problem List (1) Gastroenteritis Status: Acute (2) Hypokalemia Status: Acute (3) Alcohol abuse Status: Chronic (4) Hypertension Status: Chronic Qualifiers: Hypertension type: essential hypertension Qualified Code(s): I10 - Essential (primary) hypertension (5) Hypothyroidism Status: Chronic Qualifiers: Hypothyroidism type: unspecified Qualified Code(s): E03.9 - Hypothyroidism, unspecified (6) Anxiety Status: Chronic (7) Fibromyalgia Status: Chronic (8) Chronic back pain Status: Chronic Qualifiers: Back pain location: back pain in unspecified location Back pain laterality: unspecified Qualified Code(s): M54.9 - Dorsalgia, unspecified; G89.29 - Other chronic pain Comment: osteoarthritis (9) Bipolar disorder Status: Chronic Qualifiers: Active/Remission status: remission status unspecified Qualified Code(s): F31.9 - Bipolar disorder, unspecified (10) Depression with H/o suicidal attempt Status: Chronic History of Present Illness Date of Admission: 04/13/19 Chief Complaint: Malaise, N/V The patient is a 69 y/o F w/ PMHx: Chronic Pain Syndrome (Back pain) following w/ Dr. Mcintosh, Fibromyalgia, HTN, HLD, Hypothyroidism, EtOH Abuse (Denies), Hx Pancreatitis, Anxiety and Depression w/ Prior Suicide Attempt who presents to the [facility] ED on 04/13/19 with history of ongoing nausea with occasional emesis with inability to made appropriate oral intake over the last 24 to 48 hours with mild generalized abdominal cramping discomfort rated 3-5 out of 10 with no related diarrhea or loose stools. Patient denies any recent ill contacts with similar symptoms. She denies any fevers or chills. Patient is known as an alcoholic and currently denying any alcohol intake despite known history therefore unclear last intake but ED physician did note shot of liquor on day of ED presentation. Work-up in the ED included T 98.7, heart rate initially 118 with improvement 83, BP 124/70, respiratory rate 16, 100% on room air, CBC with WBC 7.3, hemoglobin 13.5, platelet 197 with mild left shift, CMP with potassium 2.6, chloride 97, BUN/creatinine 5/0.72, glucose 178, total bilirubin 1.16, AST/ALT 161/53, alk phos 187, lipase 41, ethyl alcohol less than 3, EKG with sinus rhythm with prolonged QT with QTC 530 with no evidence of acute ischemia. In the ED patient ministered morphine, oral potassium as well as IV potassium supplementation, Phenergan, normal saline and Zofran. Past Medical History Past Medical History (Chronic Problems): Chronic Problems Hepatic steatosis (Chronic) Alcohol abuse (Chronic) Hypertension (Chronic) Hypothyroidism (Chronic) Anxiety (Chronic) Fibromyalgia (Chronic) Dysphagia (Chronic) Rheumatoid arthritis (Chronic) never confirmed.....RA is negative.....tells me that she has psoriatic arthritis Psoriasis (Chronic) Chronic back pain (Chronic) osteoarthritis Delusional disorder (Chronic) Bipolar disorder (Chronic) Depression with H/o suicidal attempt (Chronic) Allergies nickel [Nickel] Allergy (Verified 04/13/19 14:33) Rash prochlorperazine edisylate [From Compazine] Adverse Reaction (Verified 04/13/19 14:33) disoriented prochlorperazine maleate [From Compazine] Adverse Reaction (Verified 04/13/19 14:33) DISORIENTED Home Medications: Ambulatory Orders Medication Instructions Recorded Atenolol [Tenormin (beta rené)] 100 mg PO DAILY 05/20/17 Levothyroxine [Synthroid] 75 mcg PO DAILY #30 tab 10/23/17 Surgical History: tonsillectomy Psychiatric History: Anxiety, Bipolar, Depression 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 Tobacco Use: Cigarettes Alcohol: Heavy Drugs: None - *Family History Maternal History Items: - - Reports autoimmune disease. Paternal History Items: - - Reports that her father from aspiration pneumonia at age 92. And her grandfather from pneumonia at age 32. She also notes that her father had exposure to nickel and had some diseases related but cannot give this information. Denied any history of heart disease, diabetes or cancer. Review of Systems Constitutional: Reports: Anorexia, Malaise, Weakness, Fatigue. Denies: Chills, Fever, Weight Change HEENT: Denies: Head Aches, Sinus Congestion, Sinus Drainage Cardiovascular: Denies: Chest Pain, Palpitations Respiratory: Denies: Cough, Shortness of breath at rest, Sputum production Gastrointestinal: Reports: Abdominal Pain, Nausea, Vomiting Genitourinary: Denies: Dysuria Musculoskeletal: Reports: Back Pain, Joint Pain. Denies: Joint Tenderness Skin: Denies: Rash, Wounds Neurological: Denies: Numbness, Tingling, Focal weakness Psychiatric: Reports: Anxiety, Depression. Denies: Homicidal Ideations, Suicidal Ideations Hematologic/ Lymphatic: Reports: Easy Bruising, Easy Bleeding VTE Information - Inpt Only VTE Present on Admission: No VTE Mechan Device Prophylaxis: SCD's VTE Pharm Prophylaxis ordered?: Yes Patient Problems: Active and Suspected Problems Gastroenteritis (Acute) Subjective: Patient seated upright in ED bed, no acute distress apparent but does states she has still has some generalized abdominal discomfort and nausea. Objective: Physical Examination: General: awake, alert, oriented x 3 and cooperative, seated upright in the ED bed, no obvious distress but states she still has some nausea. Skin: normal color, turgor, no icterus, cyanosis. HEENT: AT/NC, EOMI, PERRLA, mildly dry MM, no carotid bruits or JVD noted. Lungs: CTA bilaterally, moderate effort, mild decrease BL bases, no rales, ronchi or wheezing. Heart: Improved, currently regular rate and rhythm; no gallop, rub audible. Abdomen: soft, with distraction nontender to palpation diffusely however when focused notes generalized discomfort with no rebound or guarding, ND, normal BS, + HM. Extremities: no cyanosis, clubbing, or edema. Neurological: patient awake, alert, oriented x 3; cognitive function intact; pupils equally reactive to light and accomodation; cranial nerves II-XII grossly normal, moving all 4 extremities, no focal deficits, strength moderately global decrease secondary to acute complaints. Psychiatric: affect appears mildly flat, no acute evidence of depressive or anxiety feelings. - Physical Exam Vitals/I&O's: Vital Signs Temp Pulse Resp BP Pulse Ox 98.7 F 118 H 16 124/78 H 100 04/13/19 14:34 04/13/19 14:34 04/13/19 14:34 04/13/19 14:34 04/13/19 14:34 Oxygen Delivery Method Room Air Weight: 128 lb 1.417 oz Body Mass Index (BMI) 21.3 Finger Stick Blood Glucose 103 Laboratory Results 04/13/19 15:00: WBC 7.3, RBC 3.92 L, Hgb 13.5, Hct 39.7, MCV 101.3 H, MCH 34.4 H, MCHC 34.0, RDW Std Deviation 47.4 H, RDW Coeff of Jonathan 12.5, Plt Count 197, MPV 8.9, Immature Gran % (Auto) 0.300, Neut % (Auto) 81.3 H, Lymph % (Auto) 8.7 L, [place] % (Auto) 8.6, Eos % (Auto) 0.7, Baso % (Auto) 0.4, Absolute Neuts (auto) 5.9, Absolute Lymphs (auto) 0.63 L, Nucleated RBC % 0 04/13/19 15:00: Sodium 137, Potassium 2.6 L*, Chloride 97 L, Carbon Dioxide 28.0, Anion Gap 12, BUN 5 L, Creatinine 0.72, Estim Creat Clear Calc 46.43, Est GFR (MDRD) Af Amer 104, Est GFR (MDRD) Non-Af 86, BUN/Creatinine Ratio 7.0 L, Glucose 178 H, Calcium 8.3 L, Total Bilirubin 1.10 H, AST 161 H, ALT 53, Alkaline Phosphatase 187 H, Total Protein 7.0, Albumin 3.0 L, Globulin 4.0, Albumin/Globulin Ratio 0.8 L, Lipase 41 L Current Medications Potassium Chloride () 10 meq in 100 mls @ 100 mls/hr IV BOLUS Q1H JAYLON Stop: 04/13/19 17:29 Assessment/Plan All Active Problems Gastroenteritis (Acute) Hypomagnesemia (Resolved) Alcoholic hepatitis (Acute) Hypokalemia (Acute) Acute recurrent pancreatitis (Ruled-out) Abnormal LFTs (Acute) Alcoholic pancreatitis (Ruled-out) The patient is a 69 y/o F w/ PMHx: Chronic Pain Syndrome following w/ Dr. Mcintosh, Fibromyalgia, HTN, HLD, Hypothyroidism, EtOH Abuse (Denies), Hx Pancreatitis, Anxiety and Depression w/ Prior Suicide Attempt who presents to the [facility] ED on 04/13/19 with history of ongoing nausea with occasional emesis with inability to made appropriate oral intake over the last 24 to 48 hours with mild generalized abdominal cramping discomfort rated 3-5 out of 10 with no related diarrhea or loose stools. Patient denies any recent ill contacts with similar symptoms. (1) N/V, ? Gastroenteritis: Unclear specific etiology, will continue aggressive hydration, repeat AM CBC. Will not start antibiotics at this time given unclear source pending stool studies as may be viral gastroenteritis. Anti-emetics, pain regimen PRN. (2) Prolonged QTC: Admission EKG with prolonged QTC of 530, no acute evidence of ischemia, suspect likely secondary to acute electrolyte disturbances however patient does have history of hypothyroidism with pending TSH and free T4, will maintain on telemetry, repeat EKG in a.m. Given nausea and emesis presentation will cautiously use antiemetics. (3) Hypokalemia: Admission K+ 2.6, supplementation given, repeat level in AM. Magnesium level and phosphorus levels pending given alcohol abuse history. (4) Hyperglycemia: Admission glucose 178, likely stress response and underlying history of alcohol abuse contributing, will obtain hemoglobin A1c to be cautious, continue to trend. (5) EtOH Abuse with chronically elevated liver enzymes: Per prior admissions patient is a known alcoholic but currently denying and frequently does deny. Alcohol level upon ED presentation negative. Will maintain on CIWA protocol, MVI, thiamine and folic acid. CM consulted for substance abuse. Admission AST/ALT 151/53, similar to prior, trend. Pending magnesium and phosphorus levels. Lipase 41 of note as hx of pancreatitis. (6) Hypothyroidism: Continue home synthroid regimen, TSH and FT4 pending given prolonged QTC. (7) Tobacco Abuse: Encouraged cessation, inpatient consultation per RT, NR if desired. (8) Severe protein calorie malnutrition: Evidenced per habitus with muscle and fat loss obvious, nutrition consulted. (9) Chronic pain syndrome (back pain), fibromyalgia: Following with Dr. Rizo, encourage continued outpatient follow-up. (10) Hypertension: We will continue home atenolol therapy, PRN IV hydralazine. (11) Hyperlipidemia: Not on regimen, defer given presentation and chronically elevated LFTs. (12) GERD: PPI. (13) DVT prophylaxis: SCDs, Lovenox. Code Visit Inpatient E&M: 29369 Init Hosp L3
[2019-04-13] MEDS: Potassium Chloride 10mEq/100mL 10 MEQ/100 ML IV.SOLN. 100 MEQ IV BOLUS ×2 (15:54→17:06)
--- NOTE | 2019-04-13 15:57 | CM.ED ---
Social Work Consult: No transportation, not able to get prescriptions Informant: Guido Crawford RN Chief Complaint: My care broke down. I am not able to get my medications. I am not able to get to the doctors. Living Situation: Alone in a 2-story home with 3 steps to enter and 18 steps to negotiate between floors. Patient primarily lives on second floor. Patient stating it is a duplex. Marital/Social History: Single PCP: Dr. Howard Specialist: Was following Dr. Mcintosh for pain management but stating that last appointment was in December and patient missed that appointment due to no transportation. Support/Resources: Patient denies any active support. Patient stating to use the [employer] for meals and to have a friend that brings patient groceries sometimes. ADL's: Patient stating to be independent for all ADL's and to ambulate independently. DME: Walker, patient stating It is too big. Education/Employment: Retired. Voicing no concerns with comprehension or understanding. Mental Health Treatment/History: Patient initially denies any mental health diagnosis. Patient later stating to be diagnosed with Bi-polar and to be anxious at times. Patient denies any history of counseling. Patient stating to have been pink slipped once and transferred to an inpatient psychiatric facility that per patient stated that patient does not have any mental illness. Patient denies any medication management for mental health. Patient denies any SI or HI thoughts or history of. Abuse Issues: Patient denies. Substance Abuse: Patient denies any substance abuse history. When asked if patient consumes alcohol. Patient stating I only drink when I am in pain. It helps. Patient stating to drink one or two when in pain. Patient not specific on how much alcohol patient consumes. Assessment: Met with patient in room. Patient familiar to this social media intern. Patient with similar concerns when this social media intern saw patient last in 2018. At the visit in Feb. this social media intern provided patient with information on [employer] and taxi voucher program along with transportation options in [place]. Patient stating to have not had a chance to go to [employer]. This social media intern providing patient with application for transportation assistance through [employer]. Patient thanking this social media intern and stating I will fill this out. Patient stating to be able to ask the friend that brings patient groceries for a ride to [employer] to drop off application. Patient provided with information on needed supportive documentation for application as well. Patient stating that transportation is why patient has not been able to get prescriptions or get to doctors appointments. Patient stating in Feb. that car was working. Patient now stating that car is broke down and that most days patient does not feel like going out. Patient declining in home services due to my house being a mess. Patient stating to have had to move in a hurry and to still have boxes and stuff everywhere. Patient stating someone would think I am a hoarder. Patient educated on the [employer] and possible support for patient. Patient voicing understanding and open to this social media intern making referral to [facility] as this could assist patient in setting up community programs/supports that patient needs. This social media intern educating patient that the first steps is allowing others to help and then maybe patient will be able to work towards setting up the home how patient would like to have the home. Patient thanking this social media intern and aware that social work services will continue to be available to patient throughout patient stay at [facility]. Referral made to the [employer]. Juliano BEAR, KIM
[2019-04-13] MEDS: proMETHazine 25 MG/ML Syringe 6.25 MG IV (16:01)
--- NOTE | 2019-04-13 16:21 | ED.RN ---
pt was unable to swallow kdur. aware.
[2019-04-13 16:38] LABS: Magnesium 1.3 mg/dL (1.6-2.6)
[2019-04-13 16:56] LABS: Alcohol, Blood (Medical)-Serum < 3.0 mg/dL
[2019-04-13 18:15] LABS: Phosphorus 1.5 mg/dL (2.5-4.9); T4 Free Direct 1.09 ng/dL (0.76-1.46); Thyroid Stim Hormone (TSH) 6.35 uIU/mL (0.358-3.74)
[2019-04-13 18:21] LABS: Hemoglobin A1c 5.3 % (4.2-6.3)
[2019-04-13] MEDS: Folic Acid 1 MG Tablet PO (18:24)
[2019-04-13] MEDS: Magnesium Sulfate 4gm/100mL 4 GM/100 ML IV.SOLN. IV (18:24)
[2019-04-13] MEDS: Thiamine Hydrochloride 100 MG Tablet PO (18:24)
[2019-04-13] MEDS: 0.9% Saline Lock 10 ML Syringe IV (22:25)
[2019-04-13] MEDS: 0.9% Normal Saline 1,000 ML 125 ML IV (22:29)
[2019-04-14] VITALS (12 sets, daily range): BP systolic 109–142; BP diastolic 61–76; PULSE 69–82; RESP 12–18; TEMP 36.6–36.7; O2SAT 96–100
[2019-04-14 00:05] LABS: Mucous, Urine 0 SEEN /hpf (<or=2+)
[2019-04-14 00:07] LABS: Color, Urine Yellow (Yellow); Glucose, Dipstick Normal (Normal); Ketone-Dipstick Negative (Negative); Leukocyte Esterase-Dipstick 500 /ul (Negative); Nitrite-Dipstick Positive (Negative); Occult Blood-Urine 10 /ul (Negative); Protein-Dipstick 15 mg/dl (Negative); Urine Bilirubin Dipstick Negative (Negative); Urine Clarity Cloudy (Clear); Urine Urobilinogen 4 mg/dl (Normal); Urine pH 6.5 (5.0 - 8.0)
[2019-04-14 00:17] LABS: Bacteria 3+ /hpf (None Seen); Red Blood Cells-Urine 0-5 SEEN /hpf (0-5); Squamous Epithelial Cells - UA 0-5 SEEN /hpf (5-10); White Blood Cells 25-50 SEEN /hpf (0-5)
[2019-04-14 00:28] LABS: Amphetamine Urine VISTA NEGATIVE (<1000 ng/mL); Barbiturate Urine VISTA NEGATIVE (< 200 ng/mL); Benzodiazepine Urine VISTA NEGATIVE (< 200 ng/mL); Cocaine Urine VISTA NEGATIVE (< 300 ng/mL); Ecstacy Urine VISTA NEGATIVE (< 500 ng/mL); Methadone Urine VISTA NEGATIVE (< 300 ng/mL); PCP Urine VISTA NEGATIVE (< 25 ng/mL); THC Urine VISTA NEGATIVE (< 50 ng/mL); Vista UDS pH Range 7
[2019-04-14] MEDS: Acetaminophen 325 MG Tablet 650 MG PO ×3 (02:16→17:01)
[2019-04-14 05:46] LABS: Absolute Lymphocyte Count 0.94 X10^3/uL (0.83-4.51); Absolute Neutrophil Count 4.2 X10^3/uL (2.0-7.7); Basophil# 0.03 X10^3/uL; Basophil% 0.5 % (0-1); Eosinophil# 0.14 X10^3/uL; Eosinophils% 2.5 % (0-5); Hemoglobin 11.2 g/dL (12.0-15.0); Lymphocyte # 0.94 X10^3/ul (4.0); Lymphocyte % 16.7 % (19-41); Mean Corp Hgb Conc 32.9 g/dL (32-36); Mean Corpuscular Hgb 34.8 pg (27.0-32.0); Mean Corpuscular Volume 105.6 fL (81-99); Mean Platelet Vol. 9.3 fl (6.2-12.0); Monocyte# 0.26 X10^3/uL; Monocyte% 4.6 % (0-10); NRBC Flagged by Analyzer 0 % (0-5); Neutrophil # 4.21 X10^3/uL (2.7-7.7); Platelet Count 151 K/mm3 (150-450); RBC Distribution Width CV 12.3 % (11.6-14.6); RBC Distribution Width SD 48.4 fl (35.1-43.9); Red Blood Count 3.22 M/mm3 (4.2-5.4); White Blood Count 5.6 K/mm3 (4.4-11.0)
--- NOTE | 2019-04-14 05:55 | EKG12_ITS ---
Test Reason : AM EKG Blood Pressure : / mmHG Vent. Rate : 076 BPM Atrial Rate : 076 BPM P-R Int : 162 ms QRS Dur : 082 ms QT Int : 452 ms P-R-T Axes : 059 035 029 degrees QTc Int : 508 ms Normal sinus rhythm Prolonged QT Abnormal ECG When compared with ECG of 13-APR-2019 15:44, MANUAL COMPARISON REQUIRED, DATA IS UNCONFIRMED Confirmed by LISSETT LORENZ, XIAO ([id number]), editor map SARITHA COLON ([id number]) on 04/20/2019 3:19:47 PM Referred By: KINA Confirmed By:XIAO GALEANA MD
[2019-04-14] MEDS: 0.9% Normal Saline 1,000 ML 125 ML IV ×3 (06:14→22:03)
[2019-04-14] MEDS: Levothyroxine 75 MCG Tablet PO (06:14)
[2019-04-14 06:21] LABS: ALB/GLOB Ratio 0.8 RATIO (0.9-2.4); AST(SGOT) 145 U/L (15-37); Alanine Aminotransfer ALT/SGPT 41 U/L (13-56); Albumin, Serum 2.2 g/dL (3.2-5.0); Alkaline Phosphatase 139 U/L (45-117); Anion Gap 9 (5-15); BUN 3 mg/dL (7-18); BUN/Creat Ratio 6.6 RATIO (10-20); Calcium,Total 6.9 mg/dL (8.5-10.1); Chloride 107 mmol/L (98-107); Creatinine, Serum 0.45 mg/dL (0.55-1.02); EST Glomerular Filtration Rate 144 mL/min (>60); Est Glom Filt Rate - Afr Amer 175 mL/min (>60); Estimated Creatinine Clearance 46.43 ml/min; Globulin 2.9 g/dL (2.2-4.2); Glucose 120 mg/dL (74-106); Magnesium 2.5 mg/dL (1.6-2.6); Potassium 2.9 mmol/L (3.5-5.1); Protein, Total 5.1 g/dL (6.4-8.2); Sodium Level 143 mmol/L (136-145)
[2019-04-14] MEDS: 0.9% Saline Lock 10 ML Syringe IV ×2 (06:21→11:34)
[2019-04-14] MEDS: Ondansetron 4 MG/2 ML Vial IV (06:22)
[2019-04-14 07:44] LABS: Phosphorus 1.3 mg/dL (2.5-4.9)
[2019-04-14] MEDS: Multivitamins,Ther W-Minerals Tablet 1 TABLET PO (08:14)
[2019-04-14] MEDS: Thiamine Hydrochloride 100 MG Tablet PO ×2 (08:14→17:02)
[2019-04-14] MEDS: Folic Acid 1 MG Tablet PO (08:14)
[2019-04-14] MEDS: Atenolol 100 MG Tablet PO (08:14)
[2019-04-14] MEDS: Enoxaparin 40 MG/0.4 ML Syringe SC (08:18)
[2019-04-14] MEDS: Potassium Chloride 10mEq/100mL 10 MEQ/100 ML IV.SOLN. 100 MEQ IV BOLUS ×3 (08:50→10:33)
--- NOTE | 2019-04-14 10:58 | PCM.PN.HOSP ---
Patient Problems: Active and Suspected Problems Gastroenteritis (Acute) Subjective: Patient seen and examined. She was admitted with a complaint of nausea and vomiting. On admission she was found to be severely hypokalemic with potassium of 2.6 and prolonged QTC of 530. Potassium was replaced. She feels much better today. She still has mild nausea but vomiting has resolved and she is able to keep fluids down. Review of symptoms otherwise negative. Labs and vitals reviewed. Potassium is up to 2.9 this morning. Phosphorus still low at 1.3 magnesium is up to 2.5. Vitals/I&O's: Vital Signs Temp Pulse Resp BP Pulse Ox 98.0 F 75 16 142/74 H 96 04/14/19 09:15 04/14/19 09:15 04/14/19 09:15 04/14/19 09:15 04/14/19 09:15 Oxygen Delivery Method Room Air Weight: 130 lb 3.2 oz Body Mass Index (BMI) 21.3 Finger Stick Blood Glucose 103 Intake and Output for Last 24 Hours 04/12/19 04/13/19 04/14/19 23:59 23:59 23:59 Intake Total 1400 / 1460 1440.42 / 1440.42 Balance 1400 / 1460 1440.42 / 1440.42 General: Alert, Oriented x3, Cooperative, No apparent distress HEENT: Atraumatic, PERRLA, EOMI, Normocephalic Oral: Moist Mucosa Neck: Supple, No JVD, Negative Carotid Bruits Lungs: Clear to auscultation, Normal air movement, No rhonchi, No wheeze, No rales Cardiovascular: Regular rate, Regular Rhythm, Normal S1, Normal S2, No murmurs Abdomen: Bowel Sounds Present, Soft, Non Tender, Non-Distended, No Hepato-splenomegaly Extremities: No clubbing, No cyanosis, No edema, Capillary Refill Less than 3 Seconds Skin: No rashes, No breakdown Musculoskeletal: No Tenderness to Palpation of Joints or Extremities Lymphatic: No Cervical, Supraclavicular, or Inguinal Adenopathy Neurological: Cranial nerves II-XII grossly intact, Neuro grossly intact, Motor Exam 5/5 strength throughout Psych/Mental Status: Normal Affect, Appropriate, Alert and oriented to time, place, person, mood and affect Laboratory Results 04/13/19 15:00: WBC 7.3, RBC 3.92 L, Hgb 13.5, Hct 39.7, MCV 101.3 H, MCH 34.4 H, MCHC 34.0, RDW Std Deviation 47.4 H, RDW Coeff of Jonathan 12.5, Plt Count 197, MPV 8.9, Immature Gran % (Auto) 0.300, Neut % (Auto) 81.3 H, Lymph % (Auto) 8.7 L, [place] % (Auto) 8.6, Eos % (Auto) 0.7, Baso % (Auto) 0.4, Absolute Neuts (auto) 5.9, Absolute Lymphs (auto) 0.63 L, Nucleated RBC % 0 04/13/19 15:00: Sodium 137, Potassium 2.6 L*, Chloride 97 L, Carbon Dioxide 28.0, Anion Gap 12, BUN 5 L, Creatinine 0.72, Estim Creat Clear Calc 46.43, Est GFR (MDRD) Af Amer 104, Est GFR (MDRD) Non-Af 86, BUN/Creatinine Ratio 7.0 L, Glucose 178 H, Calcium 8.3 L, Total Bilirubin 1.10 H, AST 161 H, ALT 53, Alkaline Phosphatase 187 H, Total Protein 7.0, Albumin 3.0 L, Globulin 4.0, Albumin/Globulin Ratio 0.8 L, Lipase 41 L 04/13/19 15:00: Magnesium 1.3 L 04/13/19 15:00: Phosphorus 1.5 L, TSH 6.35 H, Free T4 1.09 04/13/19 15:00: Hemoglobin A1c 5.3 04/13/19 16:09: Ethyl Alcohol < 3.0 04/13/19 23:55: Urine Color Yellow, Urine Clarity Cloudy, Urine pH 6.5, Ur Specific [place] 1.010, Urine Protein 15 H, Urine Glucose (UA) Normal, Urine Ketones Negative, Urine Occult Blood 10 H, Urine Nitrite Positive H, Urine Bilirubin Negative, Urine Urobilinogen 4 H, Ur Leukocyte Esterase 500 H, Urine RBC 0-5 SEEN, Urine WBC 25-50 SEEN, Ur Squamous Epith Cells 0-5 SEEN, Urine Bacteria 3+, Urine Mucus 0 SEEN 04/13/19 23:55: Urine Opiates Screen POSITIVE H, Urine Methadone Screen NEGATIVE, Ur Barbiturates Screen NEGATIVE, Ur Phencyclidine Scrn NEGATIVE, Ur Amphetamines Screen NEGATIVE, U Methamphetamin-MDMA NEGATIVE, U Benzodiazepines Scrn NEGATIVE, Urine Cocaine Screen NEGATIVE, U Cannabinoids Screen NEGATIVE, Ur Drug Screen Comment 04/14/19 05:19: WBC 5.6, RBC 3.22 L, Hgb 11.2 L, Hct 34.0 L, MCV 105.6 H, MCH 34.8 H, MCHC 32.9, RDW Std Deviation 48.4 H, RDW Coeff of Jonathan 12.3, Plt Count 151, MPV 9.3, Immature Gran % (Auto) 0.700, Neut % (Auto) 75.0 H, Lymph % (Auto) 16.7 L, [place] % (Auto) 4.6, Eos % (Auto) 2.5, Baso % (Auto) 0.5, Absolute Neuts (auto) 4.2, Absolute Lymphs (auto) 0.94, Nucleated RBC % 0 04/14/19 05:19: Sodium 143, Potassium 2.9 L, Chloride 107, Carbon Dioxide 27.0, Anion Gap 9, BUN 3 L, Creatinine 0.45 L, Estim Creat Clear Calc 46.43, Est GFR (MDRD) Af Amer 175, Est GFR (MDRD) Non-Af 144, BUN/Creatinine Ratio 6.6 L, Glucose 120 H, Calcium 6.9 L, Magnesium 2.5, Total Bilirubin 0.70, AST 145 H, ALT 41, Alkaline Phosphatase 139 H, Total Protein 5.1 L, Albumin 2.2 L, Globulin 2.9, Albumin/Globulin Ratio 0.8 L 04/14/19 05:19: Phosphorus 1.3 L Current Medications Acetaminophen (Tylenol) 650 mg PO Q6H PRN PRN PRN Reason: Non-cardiac pain (mod-severe) Last Admin: 04/14/19 08:49 Dose: 650 mg Documented by: Al Hydroxide/Mg Hydroxide (Mylanta Ii) 15 - 30 ml PO Q4H PRN PRN PRN Reason: INDIGESTION Albuterol Sulfate (Ventolin Aerosols) 2.5 mg INHALATION Q2H PRN PRN PRN Reason: dyspnea, wheezing Atenolol (Tenormin (Beta Terry)) 100 mg PO DAILY [facility] Last Admin: 04/14/19 08:14 Dose: 100 mg Documented by: Dextrose (D50w Syringe) 0 gm IV X1 PRN; Protocol PRN Reason: Hypoglycemia Enoxaparin Sodium (Lovenox) 40 mg SC DAILY@1000 [facility] Last Admin: 04/14/19 08:18 Dose: 40 mg Documented by: Folic Acid (Folic Acid) 1 mg PO DAILY@0800 [facility] Stop: 04/15/19 08:01 Last Admin: 04/14/19 08:14 Dose: 1 mg Documented by: Glucagon () 1 mg IM .X1 PRN PRN Reason: Hypoglycemia Hydralazine HCl (Apresoline Iv) 10 mg IV Q4H PRN PRN PRN Reason: SBP > 160 Sodium Chloride () 1,000 mls @ 125 mls/hr IV .Q8H [facility] Last Admin: 04/14/19 06:14 Dose: 125 mls/hr Documented by: Levothyroxine Sodium (Synthroid) 75 mcg PO DAILY@0600 [facility] Last Admin: 04/14/19 06:14 Dose: 75 mcg Documented by: Lorazepam (Ativan) 2 mg PO Q2H PRN PRN; Protocol PRN Reason: CIWA score > 8 but <15 Lorazepam (Ativan) 2 mg PO UD PRN; Protocol PRN Reason: CIWA score >/=15. Lorazepam (Ativan) 2 mg IV Q2H PRN PRN; Protocol PRN Reason: CIWA score > 8 but <15 Lorazepam (Ativan) 2 mg IV UD PRN; Protocol PRN Reason: CIWA score >/=15. Magnesium Hydroxide (Milk Of Magnesia) 30 ml PO DAILY PRN PRN Reason: Constipation Melatonin (Melatonin) 3 mg PO QHS PRN PRN PRN Reason: INSOMNIA Multivitamins/Minerals (Multivitamin With Minerals) 1 tablet PO DAILYCM [facility] Last Admin: 04/14/19 08:14 Dose: 1 tablet Documented by: Ondansetron HCl (Zofran) 4 mg IV Q8H PRN PRN PRN Reason: NAUSEA/VOMITING Last Admin: 04/14/19 06:22 Dose: 4 mg Documented by: Prochlorperazine Edisylate (Compazine Iv) 5 mg IV Q4H PRN PRN PRN Reason: Breakthrough Nausea/Vomiting Sodium Chloride () 10 - 40 ml IV UD PRN PRN Reason: SALINE FLUSH Last Admin: 04/14/19 06:21 Dose: 10 ml Documented by: Thiamine HCl (Vitamin B1) 100 mg PO BIDCM [facility] Stop: 04/16/19 08:01 Last Admin: 04/14/19 08:14 Dose: 100 mg Documented by: STROKE Vital Signs/Narrative: Vital Signs Temp Pulse Resp BP Pulse Ox 04/14/19 09:15 98.0 F 75 16 142/74 H 96 04/14/19 07:45 98 04/14/19 07:00 73 Medical Necessity - Tobacco Use Smoking Status: Current every day smoker Tobacco Use: Cigarettes Assessment/Plan All Active Problems Gastroenteritis (Acute) Hypomagnesemia (Resolved) Alcoholic hepatitis (Acute) Hypokalemia (Acute) Acute recurrent pancreatitis (Ruled-out) Abnormal LFTs (Acute) Alcoholic pancreatitis (Ruled-out) 1. Hypokalemia, likely due to nausea and vomiting potassiumw as 2.6 on admission, now 2.9 nausea and vomiting have improved will replace and monitor. hypomagnesemia has resolved. 2. gastroenteritis: resolved. Nausea and vomiting has improved significantly. Continue hydration wiht IVf and monitor 3. Prolonged QTC: admitting EKG showed QTc of 530. likely due to electrolyte abnormalities. WIll recheck after electrolytes are all corrected 4. Hypophosphatemia: phosphorous is still low at 1.3 today. Will replace. 5. chronic alcohol abuse: liver enzymes mildly elevated. On thiamine, folic acid and multivites. On alcohol withdrawal protocol 6. Hypothyroidism: TSH is 6.35 and free T4 is 1.09. This is more indicated for subclinical hypothyroidism picture. Patient counseled to be compliant with her medication. 7. Chronic pain syndrome and fibromyalgia: Follow-up with Dr. Sawyer on outpatient basis 8. GERD: PPI 9. Hypertension: Fairly controlled. On atenolol. IV hydralazine PRN. DVT prophylaxis: lovenox Code Visit Inpatient E&M: 48209 Subs Hosp L2
[2019-04-14] MEDS: proCHLORPERazine 10 MG/2 ML Vial 5 MG IV (11:34)
[2019-04-14 12:08] LABS: Potassium 4.4 mmol/L (3.5-5.1)
--- NOTE | 2019-04-14 12:39 | CHAPLAIN ---
Type of Pastoral Visit _x__ Initial Visit ___ Follow-up Visit ___ On-call Visit ___ General Patient Visit ___ Spiritual Assessment ___ Family Conference ___ Bereavement ___ Rapid Response ___ Code Blue ___ Other (describe below) Pastoral Care Referral From _x__ Patient ___ Family ___ Nurse ___ Physician ___ Rn Traveling ___ Engine Repair Supervisor ___ Other (describe below) Sacrament/Intervention _x__ Active listening ___ Anointing ___ Yarsanism ___ Bereavement ___ Communion ___ Litzy exploration ___ ___ Life review _x__ Prayer ___ Reconciliation ___ Sacrament of Sick ___ Supportive presence ___ Wedding ___ Other (describe below) Pastoral Comments patient states at opening of visit that I am really not feeling well and soon after stated I'm not going to be much for conversation; pt has been seen before on prior admissions; pt in the past has been fairly talkative and asks questions about litzy and life; pt welcomed a prayer and would accept future visits; pt states I hope they keep me here
[2019-04-14] MEDS: Na Biphos/Potassium Phosphate PACKET 1 PACKET PO (14:12)
[2019-04-15] VITALS (11 sets, daily range): BP systolic 113–139; BP diastolic 68–79; PULSE 73–88; RESP 16–19; TEMP 36.6–36.9; O2SAT 96–100
[2019-04-15] MEDS: Acetaminophen 325 MG Tablet 650 MG PO ×3 (02:18→16:36)
[2019-04-15] MEDS: 0.9% Normal Saline 1,000 ML 125 ML IV ×3 (05:58→21:39)
[2019-04-15] MEDS: Na Biphos/Potassium Phosphate PACKET 1 PACKET PO ×3 (05:59→21:35)
[2019-04-15] MEDS: Levothyroxine 75 MCG Tablet PO (05:59)
[2019-04-15 07:03] LABS: Absolute Lymphocyte Count 0.71 X10^3/uL (0.83-4.51); Absolute Neutrophil Count 4.6 X10^3/uL (2.0-7.7); Basophil# 0.04 X10^3/uL; Basophil% 0.7 % (0-1); Eosinophil# 0.15 X10^3/uL; Eosinophils% 2.4 % (0-5); Hematocrit 34.6 % (37-47); Hemoglobin 11.2 g/dL (12.0-15.0); Lymphocyte # 0.71 X10^3/ul (4.0); Lymphocyte % 11.6 % (19-41); Mean Corp Hgb Conc 32.4 g/dL (32-36); Mean Corpuscular Hgb 34.7 pg (27.0-32.0); Mean Corpuscular Volume 107.1 fL (81-99); Mean Platelet Vol. 9.7 fl (6.2-12.0); Monocyte# 0.54 X10^3/uL; Monocyte% 8.8 % (0-10); NRBC Flagged by Analyzer 0 % (0-5); Neutrophil # 4.64 X10^3/uL (2.7-7.7); Neutrophil % 75.5 % (47-70); Platelet Count 158 K/mm3 (150-450); RBC Distribution Width CV 12.4 % (11.6-14.6); RBC Distribution Width SD 48.9 fl (35.1-43.9); Red Blood Count 3.23 M/mm3 (4.2-5.4); White Blood Count 6.1 K/mm3 (4.4-11.0)
[2019-04-15 07:44] LABS: Anion Gap 10 (5-15); BUN 1 mg/dL (7-18); Calcium,Total 6.2 mg/dL (8.5-10.1); Chloride 111 mmol/L (98-107); Creatinine, Serum 0.51 mg/dL (0.55-1.02); EST Glomerular Filtration Rate 126 mL/min (>60); Est Glom Filt Rate - Afr Amer 153 mL/min (>60); Estimated Creatinine Clearance 46.43 ml/min; Glucose 181 mg/dL (74-106); Potassium 3.6 mmol/L (3.5-5.1); Sodium Level 143 mmol/L (136-145)
[2019-04-15] MEDS: Thiamine Hydrochloride 100 MG Tablet PO ×2 (08:57→16:36)
[2019-04-15] MEDS: Multivitamins,Ther W-Minerals Tablet 1 TABLET PO (08:58)
[2019-04-15] MEDS: Folic Acid 1 MG Tablet PO (08:58)
[2019-04-15] MEDS: Enoxaparin 40 MG/0.4 ML Syringe SC (08:58)
[2019-04-15] MEDS: Atenolol 100 MG Tablet PO (08:58)
[2019-04-15] MEDS: Ondansetron 4 MG/2 ML Vial IV ×2 (08:59→23:59)
[2019-04-15] MEDS: 0.9% Saline Lock 10 ML Syringe IV (09:00)
--- NOTE | 2019-04-15 09:27 | CASEMGMT ---
SAM met with patient, introduced self and role at [facility]. SAM spoke with patient about resources ED SAM Deborah gave her in February and the other day. She said she could not possibly go home right now. She said she is too weak from not being able to feed herself for days. She would not be able to make it up her steps. She said she has been to TCU before and wants to go there. SAM told her SW can check to see if they have any beds available. SAM asked if she has applied for Medicaid. She said she has not as she has felt so terrible. She said she would have not a way of getting it turned into [facility]. SAM reminded her of the transportation resources that were given to her recently. SAM assisted her in completing a Medicaid application and faxed it to [facility]. SAM called Cee and she would have a bed for patient in TCU. SAM notified patient. Plan: [facility] TCU Zoe BEAR
--- NOTE | 2019-04-15 11:02 | CASEMGMT ---
Aquiles from [facility] aware that pt now to go to TCU at discharge, voices understanding. Jeanie RN CM
--- NOTE | 2019-04-15 12:16 | PCM.PROGNOTE ---
<Donna Carrington - Last Filed: 04/15/19 12:43> Patient Problems: Active and Suspected Problems Gastroenteritis (Acute) Subjective: Patient seen and examined. Requesting to go to transitional care unit at discharge as she reports feeling generally weak. Continues to complain of difficulty swallowing and intermittent vomiting following meals. Patient also talks about having too many metals in her system and she feels this is the cause of her many medical problems. - Physical Exam Vitals/I&O's: Vital Signs Temp Pulse Resp BP Pulse Ox 97.8 F 77 18 139/79 H 100 04/15/19 08:50 04/15/19 08:50 04/15/19 08:50 04/15/19 08:50 04/15/19 08:50 Oxygen Flow Rate (L/min) 2 Oxygen Delivery Method Room Air Weight: 130 lb 3.21 oz Body Mass Index (BMI) 21.3 Finger Stick Blood Glucose 103 Intake and Output for Last 24 Hours 04/13/19 04/14/19 04/15/19 23:59 23:59 23:59 Intake Total 1400 / 1460 4817.09 / 4817.09 987.92 / 987.92 Balance 1400 / 1460 4817.09 / 4817.09 987.92 / 987.92 General: Alert, Oriented x3, Cooperative HEENT: Atraumatic, PERRLA, EOMI, Normocephalic Neck: Supple, No JVD, Negative Carotid Bruits Lungs: Clear to auscultation, Normal air movement Cardiovascular: Regular rate, Regular Rhythm, Normal S1, Normal S2, No murmurs Abdomen: Bowel Sounds Present, Soft, Non Tender, Non-Distended Extremities: No clubbing, No cyanosis, No edema, Capillary Refill Less than 3 Seconds Skin: No rashes, No breakdown Musculoskeletal: No Tenderness to Palpation of Joints or Extremities Neurological: Cranial nerves II-XII grossly intact, Neuro grossly intact Psych/Mental Status: Normal Affect, Appropriate Laboratory Results 04/15/19 06:40: WBC 6.1, RBC 3.23 L, Hgb 11.2 L, Hct 34.6 L, MCV 107.1 H, MCH 34.7 H, MCHC 32.4, RDW Std Deviation 48.9 H, RDW Coeff of Jonathan 12.4, Plt Count 158, MPV 9.7, Immature Gran % (Auto) 1.000 H, Neut % (Auto) 75.5 H, Lymph % (Auto) 11.6 L, [place] % (Auto) 8.8, Eos % (Auto) 2.4, Baso % (Auto) 0.7, Absolute Neuts (auto) 4.6, Absolute Lymphs (auto) 0.71 L, Nucleated RBC % 0 04/15/19 06:40: Sodium 143, Potassium 3.6, Chloride 111 H, Carbon Dioxide 22.0, Anion Gap 10, BUN 1 L, Creatinine 0.51 L, Estim Creat Clear Calc 46.43, Est GFR (MDRD) Af Amer 153, Est GFR (MDRD) Non-Af 126, BUN/Creatinine Ratio 2.0 L, Glucose 181 H, Calcium 6.2 L* Current Medications Acetaminophen (Tylenol) 650 mg PO Q6H PRN PRN PRN Reason: Non-cardiac pain (mod-severe) Last Admin: 04/15/19 08:57 Dose: 650 mg Documented by: Al Hydroxide/Mg Hydroxide (Mylanta Ii) 15 - 30 ml PO Q4H PRN PRN PRN Reason: INDIGESTION Albuterol Sulfate (Ventolin Aerosols) 2.5 mg INHALATION Q2H PRN PRN PRN Reason: dyspnea, wheezing Atenolol (Tenormin (Beta Terry)) 100 mg PO DAILY [facility] Last Admin: 04/15/19 08:58 Dose: 100 mg Documented by: Dextrose (D50w Syringe) 0 gm IV X1 PRN; Protocol PRN Reason: Hypoglycemia Enoxaparin Sodium (Lovenox) 40 mg SC DAILY@1000 [facility] Last Admin: 04/15/19 08:58 Dose: 40 mg Documented by: Glucagon () 1 mg IM .X1 PRN PRN Reason: Hypoglycemia Hydralazine HCl (Apresoline Iv) 10 mg IV Q4H PRN PRN PRN Reason: SBP > 160 Sodium Chloride () 1,000 mls @ 125 mls/hr IV .Q8H [facility] Last Admin: 04/15/19 05:58 Dose: 125 mls/hr Documented by: Levothyroxine Sodium (Synthroid) 75 mcg PO DAILY@0600 [facility] Last Admin: 04/15/19 05:59 Dose: 75 mcg Documented by: Lorazepam (Ativan) 2 mg PO Q2H PRN PRN; Protocol PRN Reason: CIWA score > 8 but <15 Lorazepam (Ativan) 2 mg PO UD PRN; Protocol PRN Reason: CIWA score >/=15. Lorazepam (Ativan) 2 mg IV Q2H PRN PRN; Protocol PRN Reason: CIWA score > 8 but <15 Lorazepam (Ativan) 2 mg IV UD PRN; Protocol PRN Reason: CIWA score >/=15. Magnesium Hydroxide (Milk Of Magnesia) 30 ml PO DAILY PRN PRN Reason: Constipation Melatonin (Melatonin) 3 mg PO QHS PRN PRN PRN Reason: INSOMNIA [facility]ivitamins/Minerals ([facility]) [facility] Last Admin: 04/15/19 08:58 Dose: 1 tablet Documented by: Ondansetron HCl (Zofran) 4 mg IV Q8H PRN PRN PRN Reason: NAUSEA/VOMITING Last Admin: 04/15/19 08:59 Dose: 4 mg Documented by: Potassium Phos/Sodium Phos (Neutra-Phos Packet) 1 packet PO TID [facility] Stop: 04/16/19 06:01 Last Admin: 04/15/19 05:59 Dose: 1 packet Documented by: Prochlorperazine Edisylate (Compazine Iv) 5 mg IV Q4H PRN PRN PRN Reason: Breakthrough Nausea/Vomiting Last Admin: 04/14/19 11:34 Dose: 5 mg Documented by: Sodium Chloride () 10 - 40 ml IV UD PRN PRN Reason: SALINE FLUSH Last Admin: 04/15/19 09:00 Dose: 10 ml Documented by: Thiamine HCl ([facility]itamin B1) [facility] Stop: 04/16/19 08:01 Last Admin: 04/15/19 08:57 Dose: 100 mg Documented by: Medical Necessity - Tobacco Use Smoking Status: Current every day smoker Tobacco Use: Cigarettes Assessment/Plan All Active Problems Gastroenteritis (Acute) Hypomagnesemia (Resolved) Alcoholic hepatitis (Acute) Hypokalemia (Acute) Acute recurrent pancreatitis (Ruled-out) Abnormal LFTs (Acute) Alcoholic pancreatitis (Ruled-out) 1. Acute gastroenteritis, suspected viral- resolved. PRN antiemetic regimen. 2. Hypokalemia, secondary to #1-resolved. 3. Prolonged QTC-secondary to electrolyte disturbances. Improved. 4. History of recurrent alcoholic pancreatitis, chronically elevated liver enzymes-currently stable. 5. Dysphagia- unchanged from prior admissions. Speech therapy following. Patient has had prior MBS and endoscopy in the past without evidence of aspiration or dysphagia etiology. Continue recommendations per speech therapy. 6. Chronic pain syndrome/fibromyalgia-not on regimen. Follows with Dr. Mcintosh, pain management. Previously followed with Dr. Tam, patient reports she was kicked out of her practice. 7. HTN -continue home atenolol regimen. 8. Hypothyroidism- continue Synthroid. 9. Nicotine abuse-declines replacement patch. Encourage cessation. 10. Depression/Bipolar- not on home meds still, referred for behavioral health services at prior discharges. 11. Severe protein calorie malnutrition-nutrition consult. 12. GERD- continue PPI. DVT prophylaxis- Lovenox sc Discharge planning: Plan for TCU tomorrow. This patient was seen by CLAUDIA Roblero under the supervision of Dr. Humphrey. <Caridad Humphrey - Last Filed: 04/15/19 15:16> - Physical Exam Vitals/I&O's: Vital Signs Temp Pulse Resp BP Pulse Ox 97.8 F 77 18 139/79 H 99 04/15/19 08:50 04/15/19 12:18 04/15/19 12:18 04/15/19 08:50 04/15/19 12:18 Oxygen Flow Rate (L/min) 2 Oxygen Delivery Method Room Air Weight: 130 lb 3.21 oz Body Mass Index (BMI) 21.3 Finger Stick Blood Glucose 103 Intake and Output for Last 24 Hours 04/13/19 04/14/19 04/15/19 23:59 23:59 23:59 Intake Total 1400 / 1460 4817.09 / 4817.09 2928.75 / 2928.75 Balance 1400 / 1460 4817.09 / 4817.09 2928.75 / 2928.75 Laboratory Results 04/15/19 06:40: WBC 6.1, RBC 3.23 L, Hgb 11.2 L, Hct 34.6 L, MCV 107.1 H, MCH 34.7 H, MCHC 32.4, RDW Std Deviation 48.9 H, RDW Coeff of Jonathan 12.4, Plt Count 158, MPV 9.7, Immature Gran % (Auto) 1.000 H, Neut % (Auto) 75.5 H, Lymph % (Auto) 11.6 L, [place] % (Auto) 8.8, Eos % (Auto) 2.4, Baso % (Auto) 0.7, Absolute Neuts (auto) 4.6, Absolute Lymphs (auto) 0.71 L, Nucleated RBC % 0 04/15/19 06:40: Sodium 143, Potassium 3.6, Chloride 111 H, Carbon Dioxide 22.0, Anion Gap 10, BUN 1 L, Creatinine 0.51 L, Estim Creat Clear Calc 46.43, Est GFR (MDRD) Af Amer 153, Est GFR (MDRD) Non-Af 126, BUN/Creatinine Ratio 2.0 L, Glucose 181 H, Calcium 6.2 L* Current Medications Acetaminophen (Tylenol) 650 mg PO Q6H PRN PRN PRN Reason: Non-cardiac pain (mod-severe) Last Admin: 04/15/19 08:57 Dose: 650 mg Documented by: Al Hydroxide/Mg Hydroxide (Mylanta Ii) 15 - 30 ml PO Q4H PRN PRN PRN Reason: INDIGESTION Albuterol Sulfate (Ventolin Aerosols) 2.5 mg INHALATION Q2H PRN PRN PRN Reason: dyspnea, wheezing Atenolol (Tenormin (Beta Terry)) 100 mg PO DAILY [facility] Last Admin: 04/15/19 08:58 Dose: 100 mg Documented by: Dextrose (D50w Syringe) 0 gm IV X1 PRN; Protocol PRN Reason: Hypoglycemia Enoxaparin Sodium (Lovenox) 40 mg SC DAILY@1000 [facility] Last Admin: 04/15/19 08:58 Dose: 40 mg Documented by: Glucagon () 1 mg IM .X1 PRN PRN Reason: Hypoglycemia Hydralazine HCl (Apresoline Iv) 10 mg IV Q4H PRN PRN PRN Reason: SBP > 160 Sodium Chloride () 1,000 mls @ 125 mls/hr IV .Q8H [facility] Last Admin: 04/15/19 13:56 Dose: 125 mls/hr Documented by: Levothyroxine Sodium (Synthroid) 75 mcg PO DAILY@0600 [facility] Last Admin: 04/15/19 05:59 Dose: 75 mcg Documented by: Lorazepam (Ativan) 2 mg PO Q2H PRN PRN; Protocol PRN Reason: CIWA score > 8 but <15 Lorazepam (Ativan) 2 mg PO UD PRN; Protocol PRN Reason: CIWA score >/=15. Lorazepam (Ativan) 2 mg IV Q2H PRN PRN; Protocol PRN Reason: CIWA score > 8 but <15 Lorazepam (Ativan) 2 mg IV UD PRN; Protocol PRN Reason: CIWA score >/=15. Magnesium Hydroxide (Milk Of Magnesia) 30 ml PO DAILY PRN PRN Reason: Constipation Melatonin (Melatonin) 3 mg PO QHS PRN PRN PRN Reason: INSOMNIA Multivitamins/Minerals ([facility]) [facility] Last Admin: 04/15/19 08:58 Dose: 1 tablet Documented by: Ondansetron HCl (Zofran) 4 mg IV Q8H PRN PRN PRN Reason: NAUSEA/VOMITING Last Admin: 04/15/19 08:59 Dose: 4 mg Documented by: Potassium Phos/Sodium Phos (Neutra-Phos Packet) 1 packet PO TID [facility] Stop: 04/16/19 06:01 Last Admin: 04/15/19 13:54 Dose: 1 packet Documented by: Prochlorperazine Edisylate (Compazine Iv) 5 mg IV Q4H PRN PRN PRN Reason: Breakthrough Nausea/Vomiting Last Admin: 04/14/19 11:34 Dose: 5 mg Documented by: Sodium Chloride () 10 - 40 ml IV UD PRN PRN Reason: SALINE FLUSH Last Admin: 04/15/19 09:00 Dose: 10 ml Documented by: Thiamine HCl (Vitamin B1) [facility] Stop: 04/16/19 08:01 Last Admin: 04/15/19 08:57 Dose: 100 mg Documented by: Assessment/Plan Patient seen by Donna TAYLOR under my supervision Patient seen and examined. She complains of throat pain, and later said pain actually is down in her esophagus, at the junction of her esophagus going into her stomach, and she thinks she needs to see an ENT doctor. Patient said due to the pain she has difficulty swallowing; she has been followed by speech therapy. She also complains of diarrhea and states is due to the IV potassium because she feels that she loses control of her bowels as soon as she receives IV potassium. Review of systems otherwise negative. Patient states she feels very tired and thinks she has to go to TCU for some rehab before she goes on. o/e: Vital Signs Height 5 ft 5.5 in Weight: 130 lb 3.21 oz Weight in Pounds 130.2 lbs Pulse Ox 99 Temperature 97.8 F Pulse Rate 77 Respiratory Rate 18 Blood Pressure 139/79 Blood Pressure Position Semi-Fowlers General: Alert, Oriented x3, Cooperative, No apparent distress HEENT: Atraumatic, PERRLA, EOMI, Normocephalic Oral: Moist Mucosa Neck: Supple, No JVD, Negative Carotid Bruits Lungs: Clear to auscultation, Normal air movement, No rhonchi, No wheeze, No rales Cardiovascular: Regular rate, Regular Rhythm, Normal S1, Normal S2, No murmurs Abdomen: Bowel Sounds Present, Soft, Non Tender, Non-Distended, No Hepato-splenomegaly Extremities: No clubbing, No cyanosis, No edema, Capillary Refill Less than 3 Seconds Skin: No rashes, No breakdown Musculoskeletal: No Tenderness to Palpation of Joints or Extremities Lymphatic: No Cervical, Supraclavicular, or Inguinal Adenopathy Neurological: Cranial nerves II-XII grossly intact, Neuro grossly intact, Motor Exam 5/5 strength throughout Psych/Mental Status: Normal Affect, Appropriate, Alert and oriented to time, place, person, mood and affect Plan is to replace calcium with IV calcium gluconate, as her calcium level was 6.2 today; corrected for albumin, it was 7.6mg/dl. Speech therapy following; she has had modified barium swallow in the past, which was negative. She has also had endoscopies, which were negative. Hypokalemia has resolved. Gastroenteritis is also resolving. Will likely discharge to TCU tomorrow. Rest of management is as per Donna Carrington NP-Oralia's which I have reviewed and endorsed. Code Visit Inpatient E&M: 45045 Subs Hosp L2
[2019-04-15 15:39] LABS: Magnesium 1.7 mg/dL (1.6-2.6); Phosphorus 1.5 mg/dL (2.5-4.9)
[2019-04-15] MEDS: traMADol 50 MG Tablet PO (18:10)
[2019-04-16] VITALS (7 sets, daily range): BP systolic 139–145; BP diastolic 66–86; PULSE 68–98; RESP 18; TEMP 36.7–37.3; O2SAT 95–100
[2019-04-16] MEDS: traMADol 50 MG Tablet PO ×2 (02:56→11:18)
[2019-04-16] MEDS: 0.9% Normal Saline 1,000 ML 125 ML IV (05:45)
[2019-04-16] MEDS: Na Biphos/Potassium Phosphate PACKET 1 PACKET PO (05:46)
[2019-04-16] MEDS: Levothyroxine 75 MCG Tablet PO (05:46)
[2019-04-16 07:25] LABS: Anion Gap 8 (5-15); BUN < 1 mg/dL (7-18); Calcium,Total 6.6 mg/dL (8.5-10.1); Chloride 110 mmol/L (98-107); Creatinine, Serum 0.36 mg/dL (0.55-1.02); EST Glomerular Filtration Rate 192 mL/min (>60); Est Glom Filt Rate - Afr Amer 232 mL/min (>60); Estimated Creatinine Clearance 46.43 ml/min; Glucose 100 mg/dL (74-106); Magnesium 1.9 mg/dL (1.6-2.6); Potassium 3.4 mmol/L (3.5-5.1); Sodium Level 141 mmol/L (136-145)
[2019-04-16 07:37] LABS: Phosphorus 1.8 mg/dL (2.5-4.9)
[2019-04-16] MEDS: Atenolol 100 MG Tablet PO (09:15)
[2019-04-16] MEDS: Thiamine Hydrochloride 100 MG Tablet PO (09:15)
[2019-04-16] MEDS: Multivitamins,Ther W-Minerals Tablet 1 TABLET PO (09:15)
[2019-04-16] MEDS: Acetaminophen 325 MG Tablet 650 MG PO (09:15)
[2019-04-16] MEDS: Enoxaparin 40 MG/0.4 ML Syringe SC (09:17)
--- NOTE | 2019-04-16 11:07 | PCM.EXTCARCO ---
- Diet 04/16/19 08:45 Diet: Regular Diet Food consistency:: Mechanical Soft/Ground Liquid Consistency:: Regular/Thin Type of Dietary Supplement:: Ensure Complete Is pt able to select menu?: Yes - Routine Orders/Code Status Enema Type: Fleetz Enema Frequency: Daily PRN Suppository Type: Dulcolax 10mg Suppository Frequency: Daily PRN Routine Lab Work: - - BMP in 3 days then weekly - Suggestions for Active Care Change Position every (hours): 2 Times a day to sit in chair: 3 - Therapies Physical Therapy: Eval and Treat Occupational Therapy: Eval and Treat Speech Therapy: Eval and Treat - Problem/Diagnosis (1) Gastroenteritis Status: Acute Current Visit: Yes (2) Hypokalemia Status: Acute Current Visit: Yes (3) Alcohol abuse Status: Chronic Current Visit: No (4) Anxiety Status: Chronic Current Visit: No (5) Bipolar disorder Status: Chronic Current Visit: No (6) Dysphagia Status: Chronic Current Visit: No (7) Hypertension Status: Chronic Current Visit: No (8) Hypothyroidism Status: Chronic Current Visit: No (9) Alcoholic pancreatitis Status: Chronic Current Visit: No - Allergies/Procedures Done in Hospital Allergies/Adverse Reactions: Allergies nickel [Nickel] Allergy (Verified 04/13/19 17:28) Rash/autoimmune reactions prochlorperazine edisylate [From Compazine] Adverse Reaction (Verified 04/13/19 14:33) disoriented prochlorperazine maleate [From Compazine] Adverse Reaction (Verified 04/13/19 14:33) DISORIENTED Procedures: None - Type of Care/Length of Stay Estimated LOS: Convalescent Care Less Than 30 days Type of Care Needed: Skilled Rehab Potential: Fair Prognosis: Fair - Additional Orders/Day of Discharge H&P will serve as current which was dated: 04/13/19 Day of Discharge: 04/16/19 - Dietary and Speech Recommendations Dietitian Recommendations/Changes: Suggest Regular diet w/ modifications per ST as pt medically able. Will continue to provide ONS Ensure Clear at meals. - Follow Up Care Primary Care Physician: Brant Howard Chi, MD [Primary Care Provider] - Please follow up with your Primary Care Physician in: 1 Week
--- NOTE | 2019-04-16 11:11 | PCM.DC.SUM ---
<Donna Carrington - Last Filed: 04/16/19 11:20> Discharge Date and Diagnosis Date of Admission: 04/13/19 Date of Discharge: 04/16/19 - Primary Discharge Diagnosis Active and Suspected Problems 1. Acute gastroenteritis, suspected viral 2. Hypokalemia, secondary to #1 3. Prolonged QTC-secondary to electrolyte disturbances. 4. History of recurrent alcoholic pancreatitis, chronically elevated liver enzymes 5. Dysphagia 6. Chronic pain syndrome/fibromyalgia 7. HTN 8. Hypothyroidism 9. Nicotine abuse 10. Depression/Bipolar 11. Severe protein calorie malnutrition 12. GERD 13. Hypocalcemia 14. Asymptomatic bacteriuria, suspected contaminant - Secondary Discharge Diagnosis Chronic Problems Hepatic steatosis (Chronic) Alcoholic pancreatitis (Chronic) Alcohol abuse (Chronic) Hypertension (Chronic) Hypothyroidism (Chronic) Anxiety (Chronic) Fibromyalgia (Chronic) Dysphagia (Chronic) Rheumatoid arthritis (Chronic) never confirmed.....RA is negative.....tells me that she has psoriatic arthritis Psoriasis (Chronic) Chronic back pain (Chronic) osteoarthritis Delusional disorder (Chronic) Bipolar disorder (Chronic) Depression with H/o suicidal attempt (Chronic) Hospital Course and Treatment Operations: None Procedures: None Summary of Care Provided: The patient is a 69 year old F admitted 04/13/2019 due to nausea, vomiting and malaise. 1. Acute gastroenteritis, suspected viral-enteric bacteriology and C. difficile negative. Diarrhea resolved. As needed Imodium. 2. Hypokalemia, secondary to #1-resolved. 3. Prolonged QTC-secondary to electrolyte disturbances. Improved. 4. History of recurrent alcoholic pancreatitis, chronically elevated liver enzymes-currently stable. 5. Dysphagia- unchanged from prior admissions. Speech therapy following. Patient has had prior MBS and endoscopy in the past without evidence of aspiration or dysphagia etiology. Continue recommendations per speech therapy. 6. Chronic pain syndrome/fibromyalgia-not on regimen. Follows with Dr. Mcintosh, pain management. Previously followed with Dr. Tam, patient reports she was kicked out of her practice. 7. HTN -continue home atenolol regimen. 8. Hypothyroidism- continue Synthroid. 9. Nicotine abuse-declines replacement patch. Encourage cessation. 10. Depression/Bipolar- not on home meds still, referred for behavioral health services at prior discharges. 11. Severe protein calorie malnutrition-nutrition consult. 12. GERD- continue PPI. 13. Hypocalcemia-IV calcium gluconate x2. Discharge on calcium carbonate twice daily. Repeat BMP in 3 days. 14. Asymptomatic yldjdahv-lpeuf-hibwv urine on admission demonstrated bacteria however patient asymptomatic, afebrile and no leukocytosis. General: Alert, Oriented x3, Cooperative HEENT: Atraumatic, PERRLA, EOMI, Normocephalic Neck: Supple, No JVD, Negative Carotid Bruits Lungs: Clear to auscultation, Normal air movement Cardiovascular: Regular rate, Regular Rhythm, Normal S1, Normal S2, No murmurs Abdomen: Bowel Sounds Present, Soft, Non Tender, Non-Distended Extremities: No clubbing, No cyanosis, No edema, Capillary Refill Less than 3 Seconds Skin: No rashes, No breakdown Musculoskeletal: No Tenderness to Palpation of Joints or Extremities Neurological: Cranial nerves II-XII grossly intact, Neuro grossly intact Psych/Mental Status: Normal Affect, Appropriate Patient seen and examined prior to discharge. Physical assessment as noted above. Patient is stable for discharge with follow up recommendations as noted above. This patient was seen by CLAUDIA Roblero under the supervision of Dr. Humphrey. - Physical Exam Vitals/I&O's: Vital Signs Temp Pulse Resp BP Pulse Ox 98.0 F 98 18 139/66 H 98 04/16/19 09:00 04/16/19 09:00 04/16/19 09:00 04/16/19 09:00 04/16/19 09:00 Oxygen Flow Rate (L/min) 2 Oxygen Delivery Method Room Air Weight: 130 lb 3.21 oz Body Mass Index (BMI) 21.3 Finger Stick Blood Glucose 103 Intake and Output for Last 24 Hours 04/14/19 04/15/19 04/16/19 23:59 23:59 23:59 Intake Total 4817.09 / 4817.09 5227.33 / 5227.33 1100 / 1100 Balance 4817. / 4817.09 5227.33 / 5227.33 1100 / 1100 Microbiology Past 72 Hours 04/15/19 20:15 Stool Enteric Bacteriology - Final 04/15/19 14:05 Stool C. difficile DNA Amplification - Final Laboratory Results 04/15/19 06:40: Phosphorus 1.5 L, Magnesium 1.7 04/16/19 05:56: Sodium 141, Potassium 3.4 L, Chloride 110 H, Carbon Dioxide 23.0, Anion Gap 8, BUN < 1 L, Creatinine 0.36 L, Estim Creat Clear Calc 46.43, Est GFR (MDRD) Af Amer 232, Est GFR (MDRD) Non-Af 192, BUN/Creatinine Ratio TNP, Glucose 100, Calcium 6.6 L, Magnesium 1.9 04/16/19 05:56: Phosphorus 1.8 L Current Medications Acetaminophen (Tylenol) 650 mg PO Q6H PRN PRN PRN Reason: Non-cardiac pain (mod-severe) Last Admin: 04/16/19 09:15 Dose: 325 mg Documented by: Al Hydroxide/Mg Hydroxide (Mylanta Ii) 15 - 30 ml PO Q4H PRN PRN PRN Reason: INDIGESTION Albuterol Sulfate (Ventolin Aerosols) 2.5 mg INHALATION Q2H PRN PRN PRN Reason: dyspnea, wheezing Atenolol (Tenormin (Beta Terry)) 100 mg PO DAILY [facility] Last Admin: 04/16/19 09:15 Dose: 100 mg Documented by: Dextrose (D50w Syringe) 0 gm IV X1 PRN; Protocol PRN Reason: Hypoglycemia Enoxaparin Sodium (Lovenox) 40 mg SC DAILY@1000 [facility] Last Admin: 04/16/19 09:17 Dose: 40 mg Documented by: Glucagon () 1 mg IM .X1 PRN PRN Reason: Hypoglycemia Hydralazine HCl (Apresoline Iv) 10 mg IV Q4H PRN PRN PRN Reason: SBP > 160 Sodium Chloride () 1,000 mls @ 125 mls/hr IV .Q8H [facility] Last Admin: 04/16/19 05:45 Dose: 125 mls/hr Documented by: Calcium Gluconate 2 gm/ (Dextrose) 120 mls @ 60 mls/hr IV X1 ONE Stop: 04/16/19 11:29 Levothyroxine Sodium (Synthroid) 75 mcg PO DAILY@0600 [facility] Last Admin: 04/16/19 05:46 Dose: 75 mcg Documented by: Loperamide HCl (Imodium) 2 mg PO Q4H PRN PRN PRN Reason: Diarrhea Lorazepam (Ativan) 2 mg PO Q2H PRN PRN; Protocol PRN Reason: CIWA score > 8 but <15 Lorazepam (Ativan) 2 mg PO UD PRN; Protocol PRN Reason: CIWA score >/=15. Lorazepam (Ativan) 2 mg IV Q2H PRN PRN; Protocol PRN Reason: CIWA score > 8 but <15 Lorazepam (Ativan) 2 mg IV UD PRN; Protocol PRN Reason: CIWA score >/=15. Magnesium Hydroxide (Milk Of Magnesia) 30 ml PO DAILY PRN PRN Reason: Constipation Melatonin (Melatonin) 3 mg PO QHS PRN PRN PRN Reason: INSOMNIA Multivitamins/Minerals (Multivitamin With Minerals) 1 tablet PO DAILYCM JAYLON Last Admin: 04/16/19 09:15 Dose: 1 tablet Documented by: Ondansetron HCl (Zofran) 4 mg IV Q8H PRN PRN PRN Reason: NAUSEA/VOMITING Last Admin: 04/15/19 23:59 Dose: 4 mg Documented by: Prochlorperazine Edisylate (Compazine Iv) 5 mg IV Q4H PRN PRN PRN Reason: Breakthrough Nausea/Vomiting Last Admin: 04/14/19 11:34 Dose: 5 mg Documented by: Sodium Chloride () 10 - 40 ml IV UD PRN PRN Reason: SALINE FLUSH Last Admin: 04/15/19 09:00 Dose: 10 ml Documented by: Tramadol HCl (Ultram) 50 mg PO TID PRN PRN PRN Reason: Pain Score 6-10/10 Last Admin: 04/16/19 02:56 Dose: 50 mg Documented by: Home Medications: Medications to take at Discharge Atenolol [Tenormin (beta terry)] 100 mg PO DAILY 05/20/17 Levothyroxine [Synthroid] 75 mcg PO DAILY #30 tab 10/23/17 Calcium Carbonate [Tums] 500 mg PO BIDCM tab 04/16/19 Loperamide [Imodium] 2 mg PO Q4H PRN PRN cap 04/16/19 Primary Care Physician: Brant Howard Chi, MD [Primary Care Provider] - Please follow up with your Primary Care Physician in: 1 Week Disposition: Intermediate facility Minutes spent on discharge:: 35 Patient Condition:: Stable Medical Necessity - Tobacco Use Smoking Status: Current every day smoker Tobacco Use: Cigarettes Meaningful Use Info Meaningful Use Diagnoses (Choose all that apply): None applicable <Caridad Humphrey - Last Filed: 04/16/19 15:32> Discharge Date and Diagnosis - Secondary Discharge Diagnosis Chronic Problems Hepatic steatosis (Chronic) Alcoholic pancreatitis (Chronic) Alcohol abuse (Chronic) Hypertension (Chronic) Hypothyroidism (Chronic) Anxiety (Chronic) Fibromyalgia (Chronic) Dysphagia (Chronic) Rheumatoid arthritis (Chronic) never confirmed.....RA is negative.....tells me that she has psoriatic arthritis Psoriasis (Chronic) Chronic back pain (Chronic) osteoarthritis Delusional disorder (Chronic) Bipolar disorder (Chronic) Depression with H/o suicidal attempt (Chronic) Hospital Course and Treatment Summary of Care Provided: Patient seen by Donna TAYLOR under my supervision The patient is a 69 year old F with an extensive past medical history as listed who was admitted through the ED on 04/13/2019 with a complaint of ongoing nausea and vomiting with poor oral intake as well as generalized abdominal cramping. She had no assisted fever or chills and denied any contacts with similar symptoms. On admission she was found to be hypokalemic with potassium of 2.6, phosphorus was also low and magnesium was also low. She was admitted and managed for acute gastroenteritis and hypokalemia with hypophosphatemia and hypomagnesemia. Electrolytes was successfully replaced and she was hydrated with IV fluids. CT was checked and was negative. EKG also showed prolonged corrected QT of 4 on 513 admission. Patient remained stable and symptoms resolved. She was evaluated by physical therapy and was thought to be too weak to go home so was sent to the TCU at discharge. Of note, patient also had hypocalcemia during admission and this was successfully replaced. She is follow-up with her primary care doctor within 1 week. She is seen and examined prior to discharge. She felt better today and had no complaints. Review of systems otherwise negative. Labs and vitals reviewed. Home medication reviewed and reconciled. o/e: Vital Signs Height 5 ft 5.5 in Weight: 130 lb 3.21 oz Weight in Pounds 130.2 lbs Pulse Ox 95 Temperature 99.2 F Pulse Rate 68 Respiratory Rate 18 Blood Pressure 144/86 Blood Pressure Position Semi-Fowlers [] General: Alert, Oriented x3, Cooperative HEENT: Atraumatic, PERRLA, EOMI, Normocephalic Neck: Supple, No JVD, Negative Carotid Bruits Lungs: Clear to auscultation, Normal air movement Cardiovascular: Regular rate, Regular Rhythm, Normal S1, Normal S2, No murmurs Abdomen: Bowel Sounds Present, Soft, Non Tender, Non-Distended Extremities: No clubbing, No cyanosis, No edema, Capillary Refill Less than 3 Seconds Skin: No rashes, No breakdown Musculoskeletal: No Tenderness to Palpation of Joints or Extremities Neurological: Cranial nerves II-XII grossly intact, Neuro grossly intact Psych/Mental Status: Normal Affect, Appropriate Plan as above Rest as per Donna Carrington BUILDING PERFORMANCE CONSULTANT-c's note, which I have reviewed and endorsed - Physical Exam Vitals/I&O's: Vital Signs Temp Pulse Resp BP Pulse Ox 99.2 F H 68 18 144/86 H 95 04/16/19 13:43 04/16/19 13:43 04/16/19 13:43 04/16/19 13:43 04/16/19 13:43 Oxygen Flow Rate (L/min) 2 Oxygen Delivery Method Room Air Weight: 130 lb 3.21 oz Body Mass Index (BMI) 21.3 Finger Stick Blood Glucose 103 Intake and Output for Last 24 Hours 04/14/19 04/15/19 04/16/19 23:59 23:59 23:59 Intake Total 4817.09 / 4817.09 5227.33 / 5227.33 1932.5 / 1932.5 Balance 4817.09 / 4817.09 5227.33 / 5227.33 1932.5 / 1932.5 Microbiology Past 72 Hours 04/15/19 20:15 Stool Enteric Bacteriology - Final 04/15/19 14:05 Stool C. difficile DNA Amplification - Final Laboratory Results 04/15/19 06:40: Phosphorus 1.5 L, Magnesium 1.7 04/16/19 05:56: Sodium 141, Potassium 3.4 L, Chloride 110 H, Carbon Dioxide 23.0, Anion Gap 8, BUN < 1 L, Creatinine 0.36 L, Estim Creat Clear Calc 46.43, Est GFR (MDRD) Af Amer 232, Est GFR (MDRD) Non-Af 192, BUN/Creatinine Ratio TNP, Glucose 100, Calcium 6.6 L, Magnesium 1.9 04/16/19 05:56: Phosphorus 1.8 L Code Visit Inpatient E&M: 42763 Disch Hosp
--- NOTE | 2019-04-16 13:45 | NURSING ---
This nurse gave report to Seven CRABTREE in TCU. This nurse asked Seven if he wanted to have IV site left in, Seven Rn said yes to keep it in.
--- NOTE | 2019-04-19 09:14 | CCN.REFER ---
LM with TCU SW to contact [facility] when patient is being dc'd from TCU.
--- NOTE | 2019-05-13 10:57 | CCN.REFER ---
Patient continues to decline CCN visit. Requesting this RN to call back after 05/18/19.
--- NOTE | 2019-05-21 11:33 | CCN.REFER ---
Patient declines CCN after a couple of talks on the phone. Declines anyone coming in to home.
== END 2019-04-16 14:44 | disposition skilled nursing facility (03) | DRG 391 ==
LOC: ED 16:02 → PCU 16:15
PROVIDERS: Hospitalist; Nurse Practitioner Family; Admitting Provider Family Medicine; Emergency Provider Emergency Medicine; Family Provider Family Medicine Geriatric Medicine; PCP Family Medicine Geriatric Medicine; Visit Provider Student in an Organized Health Care Education/Training Program
DX: A08.4 Viral intestinal infection, unspecified (principal); E43 Unspecified severe protein-calorie malnutrition; E87.6 Hypokalemia; F10.10 Alcohol abuse, uncomplicated; E03.9 Hypothyroidism, unspecified; R94.31 Abnormal electrocardiogram [ECG] [EKG]; G89.4 Chronic pain syndrome; Z23 Encounter for immunization; M79.7 Fibromyalgia; I10 Essential (primary) hypertension; F17.210 Nicotine dependence, cigarettes, uncomplicated; E83.39 Other disorders of phosphorus metabolism; R13.10 Dysphagia, unspecified; E83.51 Hypocalcemia; K21.9 Gastro-esophageal reflux disease without esophagitis; R82.71 Bacteriuria; F41.9 Anxiety disorder, unspecified; M19.90 Unspecified osteoarthritis, unspecified site; F31.9 Bipolar disorder, unspecified; M54.9 Dorsalgia, unspecified; F22 Delusional disorders; Z68.21 Body mass index [BMI] 21.0-21.9, adult; K76.0 Fatty (change of) liver, not elsewhere classified
CPT/HCPCS: 36415; 80048; 80053; 80307; 80320; 81001; 83036; 83690; 83735; 84100; 84132; 84439; 84443; 85025; 87493; 87506; 92507; 92526; 92610; 93005; 97116; 97162; 97166; 97530; 97802; 99283; 99406; G0008; J7030; 90686; A4216; G0480; J0610; J2405

== ENCOUNTER 2019-04-16 14:58 | Inpatient (IN) | payer MEDICARE, SELFPAY ==
[2019-04-13 17:23] VITALS: BMI 21.3
[2019-04-16 15:16] VITALS: BP 148/80; PULSE 72; RESP 18; TEMP 37.2; O2SAT 99
--- NOTE | 2019-04-16 15:53 | PCM.HP.STD ---
Problem List (1) Debility Status: Acute (2) Nausea & vomiting Status: Acute (3) Autoimmune pancreatitis Status: Chronic (4) Alcohol dependence Status: Chronic (5) Prolonged QT interval Status: Acute (6) Psoriatic arthritis Status: Chronic (7) Gastroenteritis Status: Acute (8) Hepatic steatosis Status: Chronic (9) Hypokalemia Status: Acute (10) Hypertension Status: Chronic Qualifiers: (11) Hypothyroidism Status: Chronic Qualifiers: (12) Fibromyalgia Status: Chronic (13) Chronic back pain Status: Chronic Qualifiers: Comment: osteoarthritis History of Present Illness Date of Admission: 04/16/19 Chief Complaint: Here for rehabilitation, strengthening, prior to discharge home alone. The patient is a 69 year old Female with below past medical history presented to [facility] 04/13/2019 with nausea, vomiting. Nausea, vomiting x 2 days, intermittent, drinks alcohol, but denies. Myalgia, nausea/vomiting, mid epigastric pain. Unable to keep medications down. IV fluids, nausea medication, severe hypokalemia. EKG showed prolonged QT. IV potassium given. 04/13/2019 Admit to Hospital. IV fluids for viral gastroenteritis. Monitor for prolonged QT. [facility] protocol for Alcohol withdrawal. 04/14/2019 Potassium improved to 2.9. Nausea/vomiting improved. IV fluid hydration. Replace phosphorous. 04/15/2019 Replace calcium, calcium improved. 04/16/2019 Admit to TCU with debility, here for rehabilitation, strengthening, prior to discharge home alone. Past Medical History Past Medical History (Chronic Problems): Chronic Problems Autoimmune pancreatitis (Chronic) Alcohol dependence (Chronic) Psoriatic arthritis (Chronic) Hepatic steatosis (Chronic) Alcoholic pancreatitis (Chronic) Alcohol abuse (Chronic) Hypertension (Chronic) Hypothyroidism (Chronic) Anxiety (Chronic) Fibromyalgia (Chronic) Dysphagia (Chronic) Rheumatoid arthritis (Chronic) never confirmed.....RA is negative.....tells me that she has psoriatic arthritis Psoriasis (Chronic) Chronic back pain (Chronic) osteoarthritis Delusional disorder (Chronic) Bipolar disorder (Chronic) Depression with H/o suicidal attempt (Chronic) Allergies nickel [Nickel] Allergy (Verified 04/13/19 17:28) Rash/autoimmune reactions prochlorperazine edisylate [From Compazine] Adverse Reaction (Verified 04/13/19 14:33) disoriented prochlorperazine maleate [From Compazine] Adverse Reaction (Verified 04/13/19 14:33) DISORIENTED Home Medications: Ambulatory Orders Medication Instructions Recorded Atenolol [Tenormin (beta terry)] 100 mg PO DAILY 05/20/17 Levothyroxine [Synthroid] 75 mcg PO DAILY #30 tab 10/23/17 Acetaminophen [Tylenol] 650 mg PO Q4H PRN PRN 04/16/19 Calcium Carbonate [Tums] 500 mg PO BIDCM 04/16/19 Loperamide [Imodium] 2 mg PO Q4H PRN PRN cap 04/16/19 Surgical History: tonsillectomy Psychiatric History: Anxiety, Bipolar, Depression, - - Delusional disorder. BAGMAN/WOMAN History: No pertinent BAGMAN/WOMAN history Lives: Alone Smoking Status: Current every day smoker Tobacco Use: Cigarettes Alcohol: Heavy Drugs: None - *Family History Maternal History Items: - - Reports autoimmune disease. Paternal History Items: - - Reports that her father from aspiration pneumonia at age 92. And her grandfather from pneumonia at age 32. She also notes that her father had exposure to nickel and had some diseases related but cannot give this information. Denied any history of heart disease, diabetes or cancer. Review of Systems Constitutional: Denies: Chills, Fever, Weight Change HEENT: Denies: Head Aches, Sinus Congestion, Sinus Drainage Cardiovascular: Denies: Chest Pain, Palpitations Respiratory: Denies: Cough, Shortness of breath at rest, Sputum production Gastrointestinal: Denies: Abdominal Pain, Nausea, Vomiting Genitourinary: Denies: Dysuria Musculoskeletal: Denies: Joint Pain, Joint Tenderness Skin: Denies: Rash, Wounds Neurological: Denies: Numbness, Tingling, Focal weakness Psychiatric: Denies: Anxiety, Depression, Homicidal Ideations, Suicidal Ideations Hematologic/ Lymphatic: Denies: Easy Bruising, Easy Bleeding VTE Information - Inpt Only VTE Present on Admission: No VTE Mechan Device Prophylaxis: Knee High NGUYEN Hose VTE Pharm Prophylaxis ordered?: No Reason prophylaxis not ordered:: Treatment Not Indicated Patient Problems: Active and Suspected Problems Debility (Acute) Nausea & vomiting (Acute) Prolonged QT interval (Acute) - Physical Exam Vitals/I&O's: Body Mass Index (BMI) 21.3 Finger Stick Blood Glucose 103 General: Alert, Oriented x3, Cooperative HEENT: Atraumatic, PERRLA, EOMI, Normocephalic Neck: Supple, No JVD, Negative Carotid Bruits Lungs: Clear to auscultation, Normal air movement Cardiovascular: Regular rate, No murmurs Abdomen: Bowel Sounds Present, Soft, Non Tender Extremities: No edema, Capillary Refill Less than 3 Seconds Skin: No rashes, No breakdown Musculoskeletal: No Tenderness to Palpation of Joints or Extremities Neurological: Cranial nerves II-XII grossly intact Psych/Mental Status: Normal Affect, Appropriate Current Medications Acetaminophen (Tylenol) 650 mg PO Q4H PRN PRN PRN Reason: Pain Score 1-10/10 Atenolol (Tenormin (Beta Terry)) 100 mg PO DAILY JAYLON Calcium Carbonate (Tums) 500 mg PO BIDCM JAYLON Levothyroxine Sodium (Synthroid) 75 mcg PO DAILY JAYLON Loperamide HCl (Imodium) 2 mg PO Q4H PRN PRN PRN Reason: Diarrhea Tuberculin PPD (Tubersol, Aplisol, Ppd) 5 tu ID X1 ONE Stop: 04/17/19 10:01 Tuberculin PPD (Tubersol, Aplisol, Ppd) 5 tu ID X1 ONE Stop: 04/24/19 10:01 Assessment/Plan All Active Problems Debility (Acute) Nausea & vomiting (Acute) Prolonged QT interval (Acute) Gastroenteritis (Acute) Hypomagnesemia (Resolved) Alcoholic hepatitis (Acute) Hypokalemia (Acute) Acute recurrent pancreatitis (Ruled-out) Abnormal LFTs (Acute) 69 year old female with below past medical history hospitalized for nausea, vomiting, dehydration, complicated by prolonged QT, Hypokalemia, Hypophosphatemia, Hypocalcemia, admitted to TCU with debility, here for rehabilitation, strengthening, prior to discharge home alone. Debility - PT/OT. Pain - Tylenol 650MG Q4H PRN pain (1-3), Tramadol 50MG q6H PRN pain (4-10) Bowel - Hold, resident having diarrhea. Adult immunization - Administer Prevnar 13, Pneumovax 23, Fluzone as necessary. DVT prophylaxis - Not necessary. Hypertension - Atenolol 100MG daily. Hypocalcemia - Calcium 500MG BID. Hypothyroidism Levothyroxine 75MCG daily. Diarrhea - Imodium 2MG Q4H PRN.
--- NOTE | 2019-04-16 16:06 | NURSING ---
Pt admit to room 10 via w/c from PCU , vitals and assessment complete, consent paper signed, no c/o of pain only indigestion, Tums given, denies further needs
[2019-04-16] MEDS: Calcium Carbonate 500 MG Tablet PO (16:36)
[2019-04-16 17:00] VITALS: BP 148/80; PULSE 72; RESP 18; TEMP 37.2; O2SAT 99; BMI 23.4
[2019-04-16 18:00] VITALS: BMI 23.4
[2019-04-16 18:45] VITALS: PULSE 72; RESP 16
--- NOTE | 2019-04-16 20:54 | PCA ---
Patient continues to remove personal alarm and self transferring. Patient told this PUTAWAY DRIVER and Tere PUTAWAY DRIVER to leave the room. Patient up in room dressing in personal clothing. Refuses any assistance. RN's notified
[2019-04-17] MEDS: traMADol 50 MG Tablet PO ×4 (00:09→21:37)
--- NOTE | 2019-04-17 00:12 | NURSING ---
Addendum entered by Monae Odell 04/17/19 05:15: Pt self transferring numerous times throughout the night. Educated on importance to call staff for assistance. Pt stating I can do it just fine, I do not need your help. Pt refusing to have PA reapplied. This nurse tried to educate pt on asking for assistance at least until therapy says its ok for pt to transfer by herself. Pt still refusing. resting in recliner with call light in reach. Original Note: Pt bed alarm sounding. This nurse promptly into room. This nurse observed pt turn alarm off and throw it on the floor. This nurse asked pt if there was anything she needed assistance with. Pt questioning why she was on the unit and who the doctor was running this [facility] establishment. This nurse explained she was here for therapy before returning home. This nurse explained Dr. Howard would be the physician why she was here. Pt getting irritated and stating Jorgito shelley ninfa that [facility] because I did not want to come here! Pt going on and rambling about different things and not staying on one subject. Pt complaint of pain to her back. This nurse explained that she could have some pain medications if she would like. Pt requesting Ultram and stating pain was a 10/10. Pt questioning this nurse if it was really Ultram she was receiving. This nurse showed the packaging to pt and that it said Ultram on it. Pt thanked this nurse several times and denied any further needs. Pt refused to have alarm reapplied. Resting in bed with call light in reach.
[2019-04-17] MEDS: Atenolol 100 MG Tablet PO (05:08)
[2019-04-17] MEDS: Levothyroxine 75 MCG Tablet PO (05:08)
[2019-04-17] MEDS: Menthol/Lanolin/Calamine/Znox 113 GM Tube 1 APPLIC TOPICAL ×2 (05:14→20:06)
[2019-04-17 06:48] LABS: Absolute Lymphocyte Count 0.66 X10^3/uL (0.83-4.51); Absolute Neutrophil Count 5.7 X10^3/uL (2.0-7.7); Basophil# 0.07 X10^3/uL; Basophil% 0.9 % (0-1); Eosinophil# 0.14 X10^3/uL; Eosinophils% 1.9 % (0-5); Hematocrit 35.1 % (37-47); Hemoglobin 11.5 g/dL (12.0-15.0); Lymphocyte # 0.66 X10^3/ul (4.0); Lymphocyte % 8.9 % (19-41); Mean Corp Hgb Conc 32.8 g/dL (32-36); Mean Corpuscular Volume 106.7 fL (81-99); Mean Platelet Vol. 8.9 fl (6.2-12.0); Monocyte# 0.79 X10^3/uL; Monocyte% 10.6 % (0-10); NRBC Flagged by Analyzer 0 % (0-5); Neutrophil # 5.67 X10^3/uL (2.7-7.7); Neutrophil % 76.1 % (47-70); Platelet Count 251 K/mm3 (150-450); RBC Distribution Width CV 12.5 % (11.6-14.6); RBC Distribution Width SD 48.8 fl (35.1-43.9); Red Blood Count 3.29 M/mm3 (4.2-5.4); White Blood Count 7.5 K/mm3 (4.4-11.0)
[2019-04-17 07:13] LABS: Anion Gap 7 (5-15); BUN 2 mg/dL (7-18); BUN/Creat Ratio 4.9 RATIO (10-20); Calcium,Total 7.6 mg/dL (8.5-10.1); Chloride 107 mmol/L (98-107); Creatinine, Serum 0.41 mg/dL (0.55-1.02); EST Glomerular Filtration Rate 162 mL/min (>60); Est Glom Filt Rate - Afr Amer 197 mL/min (>60); Estimated Creatinine Clearance 46.43 ml/min; Glucose 122 mg/dL (74-106); Potassium 3.9 mmol/L (3.5-5.1); Sodium Level 140 mmol/L (136-145)
--- NOTE | 2019-04-17 07:50 | PHA.CONS_ITS ---
<Hal Galvez D - Last Filed: 04/17/19 07:50> Progress Note - Pharmacy Subjective: TCU Admission Objective: Allergies nickel [Nickel] Allergy (Verified 04/13/19 17:28) Rash/autoimmune reactions prochlorperazine edisylate [From Compazine] Adverse Reaction (Verified 04/13/19 14:33) disoriented prochlorperazine maleate [From Compazine] Adverse Reaction (Verified 04/13/19 14:33) DISORIENTED Current Medications Generic Name Dose Route Start Last Admin Trade Name Freq PRN Reason Stop Dose Admin Acetaminophen 650 mg 04/16/19 15:38 Tylenol PO Q4H PRN PRN Pain Score 1-3/10 Atenolol 100 mg 04/17/19 06:00 04/17/19 05:08 Tenormin (Beta Terry) PO 100 mg DAILY JAYLON Administration Calamine/Phenol 1 applic 04/17/19 06:00 04/17/19 05:14 Calmoseptine Ointment TOPICAL 1 applicatio BID [facility] Administration Protocol Calcium Carbonate 500 mg 04/16/19 17:00 04/16/19 16:36 Tums PO 500 mg BIDCM JAYLON Administration Levothyroxine Sodium 75 mcg 04/17/19 06:00 04/17/19 05:08 Synthroid PO 75 mcg DAILY JAYLON Administration Loperamide HCl 2 mg 04/16/19 15:38 Imodium PO Q4H PRN PRN Diarrhea Tramadol HCl 50 mg 04/16/19 16:17 04/17/19 00:09 Ultram PO 50 mg Q6H PRN PRN Administration Pain Score 4-10/10 Tuberculin PPD 5 04/17/19 10:00 Tubersol, Aplisol, Ppd ID 04/17/19 10:01 X1 ONE Tuberculin PPD 5 04/24/19 10:00 Tubersol, Aplisol, Ppd ID 04/24/19 10:01 X1 ONE Problem List Debility (Acute) Nausea & vomiting (Acute) Autoimmune pancreatitis (Chronic) Alcohol dependence (Chronic) Prolonged QT interval (Acute) Psoriatic arthritis (Chronic) Vital Signs Temp Pulse Resp BP Pulse Ox 99 F 72 16 148/80 H 99 04/16/19 17:00 04/16/19 18:45 04/16/19 18:45 04/16/19 17:00 04/16/19 17:00 Oxygen Delivery Method Room Air Weight: 64.818 kg Body Mass Index (BMI) 23.4 Finger Stick Blood Glucose 103 Sodium 140 mmol/L (136-145) 04/17/19 06:40 Potassium 3.9 mmol/L (3.5-5.1) 04/17/19 06:40 Chloride 107 mmol/L (98-107) 04/17/19 06:40 Carbon Dioxide 26.0 mmol/L (21.0-32.0) 04/17/19 06:40 Anion Gap 7 (5-15) 04/17/19 06:40 BUN 2 mg/dL (7-18) L 04/17/19 06:40 Creatinine 0.41 mg/dL (0.55-1.02) L 04/17/19 06:40 Est GFR (MDRD) Af Amer 197 mL/min (>60) 04/17/19 06:40 Est GFR (MDRD) Non-Af 162 mL/min (>60) 04/17/19 06:40 BUN/Creatinine Ratio 4.9 RATIO (10-20) L 04/17/19 06:40 Glucose 122 mg/dL (74-106) H 04/17/19 06:40 Assessment/Plan: 1) Pain APAP for pain score 1-3, tramadol for pain score 4-10. Continue to monitor daily pain scores, prn medication use. 2) Hypothyroidism Levothyroxine. Continue to monitor for s/s hyper/hypothyroidism. 3) HTN Atenolol. Continue to monitor BP/HR. 4) Hypocalcemia Tums. Continue to monitor calcium levels. Psychotropic Medications: None Unnecessary Medications: None Bowel Regimen: 5) Loperamide prn for diarrhea. Continue to monitor prn medication use, for constipation/diarrhea. Date of Note:: 04/17/19 - Provider Comments Provider responsibility: Provider responsible to enter orders to implement recommendations <Brant Howard Chi - Last Filed: 04/17/19 10:17> Progress Note - Pharmacy Subjective: [] Objective: Allergies nickel [Nickel] Allergy (Verified 04/13/19 17:28) Rash/autoimmune reactions prochlorperazine edisylate [From Compazine] Adverse Reaction (Verified 04/13/19 14:33) disoriented prochlorperazine maleate [From Compazine] Adverse Reaction (Verified 04/13/19 14:33) DISORIENTED Current Medications Generic Name Dose Route Start Last Admin Trade Name Freq PRN Reason Stop Dose Admin Acetaminophen 650 mg 04/16/19 15:38 Tylenol PO Q4H PRN PRN Pain Score 1-3/10 Atenolol 100 mg 04/17/19 06:00 04/17/19 05:08 Tenormin (Beta Terry) PO 100 mg DAILY [facility] Administration Calamine/Phenol 1 applic 04/17/19 06:00 04/17/19 05:14 Calmoseptine Ointment TOPICAL 1 applicatio BID [facility] Administration Protocol Calcium Carbonate 500 mg 04/16/19 17:00 04/17/19 08:16 Tums PO 500 mg BIDCM [facility] Administration Levothyroxine Sodium 75 mcg 04/17/19 06:00 04/17/19 05:08 Synthroid PO 75 mcg DAILY JAYLON Administration Loperamide HCl 2 mg 04/16/19 15:38 Imodium PO Q4H PRN PRN Diarrhea Tramadol HCl 50 mg 04/16/19 16:17 04/17/19 08:53 Ultram PO 50 mg Q6H PRN PRN Administration Pain Score 4-10/10 Tuberculin PPD 5 tu 04/24/19 10:00 Tubersol, Aplisol, Ppd ID 04/24/19 10:01 X1 ONE Problem List Debility (Acute) Nausea & vomiting (Acute) Autoimmune pancreatitis (Chronic) Alcohol dependence (Chronic) Prolonged QT interval (Acute) Psoriatic arthritis (Chronic) Vital Signs Temp Pulse Resp BP Pulse Ox 99 F 72 16 148/80 H 99 04/16/19 17:00 04/16/19 18:45 04/16/19 18:45 04/16/19 17:00 04/16/19 17:00 Oxygen Delivery Method Room Air Weight: 64.818 kg Body Mass Index (BMI) 23.4 Finger Stick Blood Glucose 103 Sodium 140 mmol/L (136-145) 04/17/19 06:40 Potassium 3.9 mmol/L (3.5-5.1) 04/17/19 06:40 Chloride 107 mmol/L (98-107) 04/17/19 06:40 Carbon Dioxide 26.0 mmol/L (21.0-32.0) 04/17/19 06:40 Anion Gap 7 (5-15) 04/17/19 06:40 BUN 2 mg/dL (7-18) L 04/17/19 06:40 Creatinine 0.41 mg/dL (0.55-1.02) L 04/17/19 06:40 Est GFR (MDRD) Af Amer 197 mL/min (>60) 04/17/19 06:40 Est GFR (MDRD) Non-Af 162 mL/min (>60) 04/17/19 06:40 BUN/Creatinine Ratio 4.9 RATIO (10-20) L 04/17/19 06:40 Glucose 122 mg/dL (74-106) H 04/17/19 06:40 Assessment/Plan: Psychotropic Medications: Unnecessary Medications: Bowel Regimen: - Provider Comments Provider responsibility: Provider responsible to enter orders to implement recommendations Provider Comments to Recommendations by Pharmacy: Agree
[2019-04-17] MEDS: Calcium Carbonate 500 MG Tablet PO ×2 (08:16→17:37)
[2019-04-17] MEDS: Tuberculin,Purif.prot.deriv. 50 TU/ML Vial 5 ML ID (10:43)
--- NOTE | 2019-04-17 11:13 | NURSING ---
Addendum entered by Sushila Ma 04/17/19 15:00: Pt up ambulating in halls with steady gait and wheeled walker. Original Note: Patient up in room with all alarms off. Patient removed pad alarms from chair and bed. Patient removed fall risk wristband and through it in the trash can.
[2019-04-17] MEDS: Loratadine 10 MG Tablet PO (12:42)
[2019-04-17] MEDS: Ondansetron ODT 4 MG Tablet 8 MG PO ×2 (14:58→23:19)
[2019-04-17 15:11] VITALS: BP 140/58; PULSE 78; RESP 17; TEMP 36.6; O2SAT 97
[2019-04-18] MEDS: Loratadine 10 MG Tablet PO (05:24)
[2019-04-18] MEDS: Atenolol 100 MG Tablet PO (05:24)
[2019-04-18] MEDS: Levothyroxine 75 MCG Tablet PO (05:24)
[2019-04-18] MEDS: Menthol/Lanolin/Calamine/Znox 113 GM Tube 1 APPLIC TOPICAL ×2 (05:25→19:54)
[2019-04-18] MEDS: traMADol 50 MG Tablet PO ×3 (06:47→19:53)
[2019-04-18] MEDS: Calcium Carbonate 500 MG Tablet PO ×2 (07:54→16:54)
[2019-04-18] MEDS: Ondansetron ODT 4 MG Tablet 8 MG PO ×2 (09:14→19:53)
[2019-04-18 09:58] VITALS: PULSE 66; RESP 18
[2019-04-18 15:19] VITALS: BP 136/66; PULSE 54; RESP 16; TEMP 36.7; O2SAT 96
[2019-04-19] MEDS: traMADol 50 MG Tablet PO ×4 (02:11→22:22)
[2019-04-19] MEDS: Atenolol 100 MG Tablet PO (04:01)
[2019-04-19] MEDS: Loratadine 10 MG Tablet PO (04:01)
[2019-04-19] MEDS: Levothyroxine 75 MCG Tablet PO (04:01)
[2019-04-19] MEDS: Menthol/Lanolin/Calamine/Znox 113 GM Tube 1 APPLIC TOPICAL ×2 (04:03→20:34)
[2019-04-19] MEDS: Ondansetron ODT 4 MG Tablet 8 MG PO ×2 (04:03→12:03)
[2019-04-19] MEDS: Calcium Carbonate 500 MG Tablet PO ×2 (08:14→16:15)
[2019-04-19 15:26] VITALS: BP 121/50; PULSE 51; RESP 18; TEMP 36.9; O2SAT 95
[2019-04-19] MEDS: Acetaminophen 325 MG Tablet 650 MG PO (20:36)
[2019-04-20] MEDS: Menthol/Lanolin/Calamine/Znox 113 GM Tube 1 APPLIC TOPICAL ×2 (05:59→19:54)
[2019-04-20] MEDS: Atenolol 100 MG Tablet PO (06:01)
[2019-04-20] MEDS: Levothyroxine 75 MCG Tablet PO (06:01)
[2019-04-20] MEDS: Loratadine 10 MG Tablet PO (06:01)
[2019-04-20] MEDS: traMADol 50 MG Tablet PO ×3 (06:04→19:57)
[2019-04-20] MEDS: Calcium Carbonate 500 MG Tablet PO ×2 (08:32→16:58)
--- NOTE | 2019-04-20 13:12 | MDS.RN ---
Resident informed of care plan meeting scheduled 04/21/19, resident states she does not want any family notified of meeting.
--- NOTE | 2019-04-20 13:55 | NURSING ---
THIS NURSE FOUND PT WALKING AROUND UNIT. PT NON COMPLAINT WITH CALL BOLANOS. EXPLAINED TO PT ABOUT CALLING FOR HELP BEFORE GETTING UP. PT UNDER STOOD. PT ALSO TAKES ALARM OFF.
[2019-04-20 15:15] VITALS: BP 109/43; PULSE 96; RESP 19; TEMP 37.2; O2SAT 59
--- NOTE | 2019-04-20 15:24 | CASEMGMT ---
Social Work Spoke with Sarah ARTHUR C.M. to follow up on Medicaid application. Received pending #[id number]. Will discuss patient's discharge plans in the care plan meeting tomorrow. Will notify SANDHYA if pt discharges to a SNF. Will continue to follow. CHEMA AdhikariW
[2019-04-20] MEDS: Acetaminophen 325 MG Tablet 650 MG PO (16:58)
--- NOTE | 2019-04-20 18:44 | NURSING ---
AID CAME TO THIS NURSE AND STATED PT WAS PUTTING CALMOSEPTINE ON HER FACE. THIS NURSE WENT TO ROOM AND SEEN PT HAD PUT STAN UNDER EYES. TOOK CALMOSEPTINE AND LOCKED IT UP. HAD PT WASH CALMOSEPTINE OFF FACE. PT STATED SHE WANTED SOME THING PEPPERMINT FOR UNDER HER EYES. REPORTED TO LEYDA AMADOR
[2019-04-21] MEDS: Atenolol 100 MG Tablet PO (06:27)
[2019-04-21] MEDS: Loratadine 10 MG Tablet PO (06:27)
[2019-04-21] MEDS: Levothyroxine 75 MCG Tablet PO (06:27)
[2019-04-21] MEDS: Menthol/Lanolin/Calamine/Znox 113 GM Tube 1 APPLIC TOPICAL (06:28)
[2019-04-21] MEDS: traMADol 50 MG Tablet PO ×3 (06:35→23:35)
--- NOTE | 2019-04-21 07:04 | PCA ---
[facility] asked patient if she would like to shower since today is her shower day, patient stated i sponge bathed 2 days ago, smelled herself and said that she still smells good per patient, refused shower
--- NOTE | 2019-04-21 10:42 | CASEMGMT ---
Social Work IDT met with patient for care plan meeting. Discussed patient's progress in therapy. Pt is supervision to SBA for all ADLs, walking 160ft with FWW and completed 20 smaller steps with two handrails. Patient has 18 steps to enter her home and 18 steps to the bedroom and bathroom with one handrail. Pt concerned with returning home as she gets fatigued while walking and completing steps, only has one handrail and has carpets throughout so cannot use walker. Therapy will continue to work on endurance, trialing full steps and a cane. Explained Medicare insurance and that pt has Medicaid pending number. Offered referrals to [employer] if pt returns home or transfer to SNF under Medicaid. Provided pt with SNF list. Pt expressed some frustrations and became emotional. IDT provided supportive listening. SW offered continued support, but when SW visited pt yesterday she did not want to talk. Pt will notify SW if needs to talk. Will continue to follow. Brenda Eastman, CHEMA ELECTRICAL ENGINEERING MANAGER
[2019-04-21 12:33] VITALS: PULSE 60; RESP 16; O2SAT 95
[2019-04-21 15:20] VITALS: BP 113/59; PULSE 58; RESP 20; TEMP 37; O2SAT 99
[2019-04-21] MEDS: Ondansetron ODT 4 MG Tablet 8 MG PO (16:46)
[2019-04-21] MEDS: Calcium Carbonate 500 MG Tablet PO (17:01)
--- NOTE | 2019-04-21 22:12 | PCA ---
This GRINDER SET UP OPERATOR UNIVERSAL asked patient if she would like to shower tonight. Patient stated no, the shower is scary then smelled under her arms and stated it's not smelly yet. CLIENT PROGRAM MANAGERBiju Nichols was notified. This GRINDER SET UP OPERATOR UNIVERSAL talked to therapy and they stated they would try to work with her in the morning and encourage her to preform hygiene.
[2019-04-22] MEDS: Ondansetron ODT 4 MG Tablet 8 MG PO ×2 (05:41→14:46)
[2019-04-22] MEDS: traMADol 50 MG Tablet PO ×3 (05:41→21:33)
[2019-04-22] MEDS: Levothyroxine 75 MCG Tablet PO (05:41)
[2019-04-22] MEDS: Atenolol 100 MG Tablet PO (05:41)
[2019-04-22] MEDS: Loratadine 10 MG Tablet PO (05:41)
--- NOTE | 2019-04-22 06:02 | NURSING ---
During pt rounds pt noted to be walking in room without any device. Educated pt on importance of using walker and calling for assistance. Pt stating Ill try to remember next time
--- NOTE | 2019-04-22 08:20 | NURSING ---
pt has been up AD JULISA on unit d/t refusal of following safety protocol. Pt is suppose to be using walker per therapy recommendations and at times does not follow instruction or recommendations. Will continue to encourage pt to call for assistance for safety reasons.
[2019-04-22] MEDS: Calcium Carbonate 500 MG Tablet PO ×2 (08:22→17:18)
--- NOTE | 2019-04-22 14:22 | MDS.RN ---
Pain interview for magali 04/23/19 completed.l
[2019-04-22 15:20] VITALS: BP 117/52; PULSE 60; RESP 16; TEMP 36.1; O2SAT 97
--- NOTE | 2019-04-22 19:41 | NURSING ---
Addendum entered by Monae Odell 04/23/19 05:26: Pt walking in room without walker or staff. This nurse gave pt walker to use and educated on importance of using it. Pt assisted back to bed with call light in reach. Addendum entered by Monae Odell 04/22/19 21:34: Pt walking in the halls with walker. Did not call for assistance. Refusing to have staff walk beside her. Original Note: Pt walking in room without device or staff assistance. Pt educated on calling for assistance to get up and the importance of using walker. Pt refusing alarm. Pt assisted back to bed with call light in reach.
[2019-04-23] MEDS: Ondansetron ODT 4 MG Tablet 8 MG PO (05:23)
[2019-04-23] MEDS: traMADol 50 MG Tablet PO ×3 (05:24→21:13)
[2019-04-23] MEDS: Loratadine 10 MG Tablet PO (05:24)
[2019-04-23] MEDS: Levothyroxine 75 MCG Tablet PO (05:24)
[2019-04-23] MEDS: Atenolol 100 MG Tablet PO (05:24)
[2019-04-23] MEDS: Calcium Carbonate 500 MG Tablet PO ×2 (09:57→17:27)
--- NOTE | 2019-04-23 12:21 | CASEMGMT ---
Brief interview for mental status (BIMS) and resident mood assessment (PHQ-9) completed on this day. Juliano BEAR, KMI
[2019-04-23] MEDS: Acetaminophen 325 MG Tablet 650 MG PO (13:51)
[2019-04-23 15:22] VITALS: BP 125/42; PULSE 61; RESP 22; TEMP 36.8; O2SAT 98
--- NOTE | 2019-04-23 18:53 | NURSING ---
pt up many times throughout day without assistance, refuses alarm, does not call for help
[2019-04-24] MEDS: Loratadine 10 MG Tablet PO (05:11)
[2019-04-24] MEDS: Atenolol 100 MG Tablet PO (05:11)
[2019-04-24] MEDS: Levothyroxine 75 MCG Tablet PO (05:11)
--- NOTE | 2019-04-24 06:43 | NURSING ---
Pt continues to self transfer, does not use call light, and refuses alarms. Educated pt on importance of using call light.
[2019-04-24] MEDS: Acetaminophen 325 MG Tablet 650 MG PO ×2 (07:30→21:14)
[2019-04-24 07:36] LABS: Absolute Lymphocyte Count 0.89 X10^3/uL (0.83-4.51); Absolute Neutrophil Count 9.1 X10^3/uL (2.0-7.7); Basophil# 0.09 X10^3/uL; Basophil% 0.8 % (0-1); Eosinophil# 0.21 X10^3/uL; Eosinophils% 1.8 % (0-5); Hematocrit 38.1 % (37-47); Hemoglobin 12.3 g/dL (12.0-15.0); Lymphocyte # 0.89 X10^3/ul (4.0); Lymphocyte % 7.8 % (19-41); Mean Corp Hgb Conc 32.3 g/dL (32-36); Mean Corpuscular Volume 105.2 fL (81-99); Mean Platelet Vol. 9.7 fl (6.2-12.0); Monocyte# 0.87 X10^3/uL; Monocyte% 7.7 % (0-10); NRBC Flagged by Analyzer 0 % (0-5); Neutrophil # 9.14 X10^3/uL (2.7-7.7); Neutrophil % 80.5 % (47-70); Platelet Count 311 K/mm3 (150-450); RBC Distribution Width CV 12.6 % (11.6-14.6); RBC Distribution Width SD 49.3 fl (35.1-43.9); Red Blood Count 3.62 M/mm3 (4.2-5.4); White Blood Count 11.4 K/mm3 (4.4-11.0)
[2019-04-24 07:59] LABS: Anion Gap 6 (5-15); BUN 13 mg/dL (7-18); BUN/Creat Ratio 23.4 RATIO (10-20); Calcium,Total 9.2 mg/dL (8.5-10.1); Chloride 105 mmol/L (98-107); Creatinine, Serum 0.56 mg/dL (0.55-1.02); EST Glomerular Filtration Rate 115 mL/min (>60); Est Glom Filt Rate - Afr Amer 139 mL/min (>60); Estimated Creatinine Clearance 46.43 ml/min; Glucose 111 mg/dL (74-106); Potassium 4.3 mmol/L (3.5-5.1); Sodium Level 139 mmol/L (136-145)
[2019-04-24] MEDS: Calcium Carbonate 500 MG Tablet PO ×2 (08:00→17:00)
[2019-04-24] MEDS: traMADol 50 MG Tablet PO ×3 (08:43→22:39)
--- NOTE | 2019-04-24 08:46 | NURSING ---
Patient requested pain medication Ultram per PT, when arriving to patients room she was sleeping. Patient aroused from sleep by sound of cart and states I have pain all over valued at 10/10.
[2019-04-24 10:00] VITALS: PULSE 60; RESP 16; O2SAT 97
[2019-04-24] MEDS: Tuberculin,Purif.prot.deriv. 50 TU/ML Vial 5 ML ID (10:07)
--- NOTE | 2019-04-24 10:38 | NURSING ---
Patient states she has 10/10 pain all over her body. Patient ambulates without difficulty. Patient was sleeping without difficulty before I entered the room. Patient medicated with Ultram at 0843 but stated that it did not work because she ate before I gave it to her.
[2019-04-24 16:00] VITALS: BP 115/64; PULSE 61; RESP 19; TEMP 36.8; O2SAT 99
--- NOTE | 2019-04-24 18:17 | NURSING ---
Re assessment of pain level completed. Patient states well I haven't really thought about my pain. I replied back Oh, that's great you are not in pain. She replied No, I am in pain it is a 6/10.
[2019-04-24] MEDS: Menthol/Lanolin/Calamine/Znox 113 GM Tube 1 APPLIC TOPICAL (21:16)
--- NOTE | 2019-04-24 21:17 | PCA ---
Patient refused all PM care tonight and help with transferring in room and on the unit. Patient was provided with clean gown and towels tonight.
--- NOTE | 2019-04-25 03:30 | NURSING ---
Pt up walking in riggins w/walker;helps self to jell-o from fridge and denies other needs at this time.
[2019-04-25] MEDS: traMADol 50 MG Tablet PO ×3 (05:52→20:43)
[2019-04-25] MEDS: Menthol/Lanolin/Calamine/Znox 113 GM Tube 1 APPLIC TOPICAL ×2 (05:54→20:39)
[2019-04-25] MEDS: Loratadine 10 MG Tablet PO (05:54)
[2019-04-25] MEDS: Atenolol 100 MG Tablet PO (05:55)
[2019-04-25] MEDS: Levothyroxine 75 MCG Tablet PO (05:55)
[2019-04-25 06:00] VITALS: BP 114/56; PULSE 60; RESP 12; TEMP 37.3; O2SAT 95
[2019-04-25] MEDS: Calcium Carbonate 500 MG Tablet PO ×2 (07:46→17:29)
--- NOTE | 2019-04-25 11:06 | PCA ---
Patient is non compliant with personal alarm, an does not call to ask for assistance on getting in and out of bed, going to the bathroom, and walking the room/halls
[2019-04-25] MEDS: Acetaminophen 325 MG Tablet 650 MG PO (14:20)
[2019-04-25 15:39] VITALS: BP 153/69; PULSE 60; RESP 20; TEMP 37.6; O2SAT 98
--- NOTE | 2019-04-25 22:17 | PCA ---
Patient refused all pm care tonight and is non compliant with calling out for help. Patient has been self transferring on the unit and in room.
[2019-04-26] MEDS: Levothyroxine 75 MCG Tablet PO (05:47)
[2019-04-26] MEDS: Loratadine 10 MG Tablet PO (05:47)
[2019-04-26] MEDS: Atenolol 100 MG Tablet PO (05:47)
[2019-04-26] MEDS: Menthol/Lanolin/Calamine/Znox 113 GM Tube 1 APPLIC TOPICAL (05:47)
[2019-04-26 05:49] VITALS: BP 131/51; PULSE 64; O2SAT 96
[2019-04-26] MEDS: traMADol 50 MG Tablet PO ×3 (05:52→18:47)
[2019-04-26] MEDS: Ondansetron ODT 4 MG Tablet 8 MG PO (05:53)
[2019-04-26] MEDS: Calcium Carbonate 500 MG Tablet PO ×2 (09:37→17:01)
[2019-04-26] MEDS: Acetaminophen 325 MG Tablet 650 MG PO (12:45)
[2019-04-26 16:00] VITALS: BP 135/73; PULSE 81; RESP 16; TEMP 37; O2SAT 95
[2019-04-26 16:38] VITALS: PULSE 57; RESP 18; O2SAT 95
--- NOTE | 2019-04-26 17:06 | CHAPLAIN ---
Type of Pastoral Visit ___ Initial Visit _x__ Follow-up Visit ___ On-call Visit ___ General Patient Visit ___ Spiritual Assessment ___ Family Conference ___ Bereavement ___ Rapid Response ___ Code Blue ___ Other (describe below) Pastoral Care Referral From _x__ Patient ___ Family ___ Nurse ___ Physician ___ Brake Reliner ___ Tank Car Inspector ___ Other (describe below) Sacrament/Intervention _x__ Active listening ___ Anointing ___ Anglican ___ Bereavement ___ Communion ___ Litzy exploration ___ ___ Life review ___ Prayer ___ Reconciliation ___ Sacrament of Sick _x__ Supportive presence ___ Wedding ___ Other (describe below) Pastoral Comments
--- NOTE | 2019-04-26 19:54 | NURSING ---
Pt walking in room without walker or staff assistance. Pt refusing to use the walker stating I am doing just fine without it right now I'll use it when I needed it. Pt educated on importance of walker and having staff assist with transfer. Pt stating numerous times I'll try to remember next time Pt assisted back to bed with call light in reach. Refusing PA.
[2019-04-27] MEDS: traMADol 50 MG Tablet PO ×3 (00:57→19:03)
[2019-04-27] MEDS: Levothyroxine 75 MCG Tablet PO (05:35)
[2019-04-27] MEDS: Loratadine 10 MG Tablet PO (05:36)
[2019-04-27] MEDS: Atenolol 100 MG Tablet PO (05:36)
[2019-04-27] MEDS: Calcium Carbonate 500 MG Tablet PO ×2 (08:27→17:07)
--- NOTE | 2019-04-27 12:17 | NURSING ---
pt up to nurses station, asking if anything was due. I already had my tums This mortgage or loan underwriter asked pt what was she needing, if she was nauseated. Stated No, I am having pain in my joints, I need something to get it started, I just finished eating Pt able to ambulate with walker, no grimacing or any signs of limping
[2019-04-27 15:04] VITALS: BP 107/51; PULSE 69; RESP 18; TEMP 37; O2SAT 97
--- NOTE | 2019-04-27 21:30 | PCA ---
Patient has been non compliant with call ayoub, refused all help with transferring when patient was seen by this BUTTON BREAKER self transferring on the unit and within room. Patient refused all PM care tonight. Patient states I will wash myself when asked if PM care could be provided. Patient was provided with clean linens and gown tonight.
[2019-04-28] MEDS: Loratadine 10 MG Tablet PO (05:32)
[2019-04-28] MEDS: traMADol 50 MG Tablet PO ×3 (05:32→18:25)
[2019-04-28] MEDS: Atenolol 100 MG Tablet PO (05:32)
[2019-04-28] MEDS: Levothyroxine 75 MCG Tablet PO (05:32)
--- NOTE | 2019-04-28 06:52 | MDS.RN ---
Information for the mds was obtained from review of the clinical record, interview of resident, staff, and direct observation of resident's care.
[2019-04-28] MEDS: Calcium Carbonate 500 MG Tablet PO ×2 (08:05→17:10)
--- NOTE | 2019-04-28 08:09 | NURSING ---
Pt started to get up out of bed without assistance. This nurse assisted pt to bathroom and back to bed with assist of wheeled walker.
[2019-04-28] MEDS: Acetaminophen 325 MG Tablet 650 MG PO ×2 (08:12→17:12)
[2019-04-28 15:05] VITALS: BP 125/63; PULSE 62; RESP 18; TEMP 36.7; O2SAT 96
--- NOTE | 2019-04-28 17:42 | NURSING ---
1700-pt walked out with walker to get more tea when asked how was going to use walker and hold tea pt stated, carefully back to room and again remind pt to not be up unassisted per tcu protocols
[2019-04-29] MEDS: traMADol 50 MG Tablet PO ×4 (01:06→23:01)
[2019-04-29] MEDS: Levothyroxine 75 MCG Tablet PO (06:59)
[2019-04-29] MEDS: Loratadine 10 MG Tablet PO (06:59)
[2019-04-29] MEDS: Atenolol 100 MG Tablet PO (06:59)
[2019-04-29] MEDS: Calcium Carbonate 500 MG Tablet PO ×2 (09:08→16:43)
[2019-04-29] MEDS: Ondansetron ODT 4 MG Tablet 8 MG PO (09:11)
[2019-04-29 09:15] VITALS: PULSE 64; RESP 18; O2SAT 97
[2019-04-29] MEDS: Acetaminophen 325 MG Tablet 650 MG PO (13:53)
[2019-04-29 15:10] VITALS: BP 127/63; PULSE 66; RESP 18; TEMP 36.8; O2SAT 98
--- NOTE | 2019-04-29 23:26 | NURSING ---
Pt walking in halls with walker but noncompliant with having staff walking with her. Pt noted numerous times walking in room without walker or staff assistance.
[2019-04-30] MEDS: Levothyroxine 75 MCG Tablet PO (05:29)
[2019-04-30] MEDS: Loratadine 10 MG Tablet PO (05:29)
[2019-04-30] MEDS: traMADol 50 MG Tablet PO ×3 (05:29→19:35)
[2019-04-30] MEDS: Atenolol 100 MG Tablet PO (05:29)
[2019-04-30] MEDS: Calcium Carbonate 500 MG Tablet PO ×2 (09:02→16:57)
[2019-04-30 15:26] VITALS: BP 135/66; PULSE 67; RESP 20; TEMP 36.7; O2SAT 96
--- NOTE | 2019-04-30 22:30 | NURSING ---
2200- pt continues to ambulate independently and refuses/removes bed/chair alarm. pt reminded to call staff. call light within reach.
[2019-05-01] MEDS: traMADol 50 MG Tablet PO ×4 (03:27→23:08)
[2019-05-01] MEDS: Atenolol 100 MG Tablet PO (05:49)
[2019-05-01] MEDS: Loratadine 10 MG Tablet PO (05:49)
[2019-05-01] MEDS: Levothyroxine 75 MCG Tablet PO (05:49)
[2019-05-01 07:27] LABS: Absolute Lymphocyte Count 1.16 X10^3/uL (0.83-4.51); Basophil# 0.09 X10^3/uL; Basophil% 0.8 % (0-1); Eosinophil# 0.38 X10^3/uL; Eosinophils% 3.3 % (0-5); Hematocrit 39.8 % (37-47); Hemoglobin 12.8 g/dL (12.0-15.0); Lymphocyte # 1.16 X10^3/ul (4.0); Lymphocyte % 10.1 % (19-41); Mean Corp Hgb Conc 32.2 g/dL (32-36); Mean Corpuscular Hgb 33.9 pg (27.0-32.0); Mean Corpuscular Volume 105.3 fL (81-99); Monocyte# 0.66 X10^3/uL; Monocyte% 5.7 % (0-10); NRBC Flagged by Analyzer 0 % (0-5); Neutrophil # 9.02 X10^3/uL (2.7-7.7); Neutrophil % 78.1 % (47-70); Platelet Count 349 K/mm3 (150-450); RBC Distribution Width CV 12.3 % (11.6-14.6); RBC Distribution Width SD 48.2 fl (35.1-43.9); Red Blood Count 3.78 M/mm3 (4.2-5.4); White Blood Count 11.5 K/mm3 (4.4-11.0)
[2019-05-01 08:16] LABS: Anion Gap 7 (5-15); BUN 14 mg/dL (7-18); BUN/Creat Ratio 25.5 RATIO (10-20); Calcium,Total 9.3 mg/dL (8.5-10.1); Chloride 104 mmol/L (98-107); Creatinine, Serum 0.55 mg/dL (0.55-1.02); EST Glomerular Filtration Rate 116 mL/min (>60); Est Glom Filt Rate - Afr Amer 140 mL/min (>60); Estimated Creatinine Clearance 46.43 ml/min; Glucose 155 mg/dL (74-106); Potassium 4.3 mmol/L (3.5-5.1); Sodium Level 138 mmol/L (136-145)
[2019-05-01] MEDS: Calcium Carbonate 500 MG Tablet PO ×2 (09:07→17:07)
[2019-05-01 16:00] VITALS: BP 156/63; PULSE 60; RESP 20; TEMP 36.7; O2SAT 96
[2019-05-01] MEDS: Acetaminophen 325 MG Tablet 650 MG PO (19:57)
[2019-05-02] MEDS: Levothyroxine 75 MCG Tablet PO (05:58)
[2019-05-02] MEDS: traMADol 50 MG Tablet PO ×3 (05:58→18:35)
[2019-05-02] MEDS: Loratadine 10 MG Tablet PO (05:58)
[2019-05-02] MEDS: Atenolol 100 MG Tablet PO (05:58)
[2019-05-02] MEDS: Calcium Carbonate 500 MG Tablet PO ×2 (09:43→16:59)
[2019-05-02 15:01] VITALS: BP 134/72; PULSE 72; RESP 18; TEMP 36.7; O2SAT 98
[2019-05-03] MEDS: Ondansetron ODT 4 MG Tablet 8 MG PO (00:36)
[2019-05-03] MEDS: traMADol 50 MG Tablet PO ×4 (00:37→21:36)
[2019-05-03] MEDS: Loratadine 10 MG Tablet PO (05:41)
[2019-05-03] MEDS: Levothyroxine 75 MCG Tablet PO (05:41)
[2019-05-03] MEDS: Atenolol 100 MG Tablet PO (05:41)
[2019-05-03] MEDS: Calcium Carbonate 500 MG Tablet PO ×2 (08:41→17:22)
--- NOTE | 2019-05-03 11:44 | CASEMGMT ---
Social Work Spoke with patient about discharge plans as day 21 is 05/06 and pt has [facility] secondary. Pt would like to transfer to a SNF under [facility]. Provided pt with list of facilities to chose facilities for SW to refer to. Offered assistance with filling out the requested information from [facility] to complete [facility] process - pt denied. Pt will notify SW with facilities. Brenda Eastman, PASTORAL ASSISTANT RING SPINNER
[2019-05-03] MEDS: Acetaminophen 325 MG Tablet 650 MG PO (13:12)
--- NOTE | 2019-05-03 13:14 | NURSING ---
PT UP WALKING TO COFFEE MACHINE AND BACK TO ROOM. NON COMPLIMENT WITH CALL BOLANOS.
[2019-05-03 15:22] VITALS: BP 106/58; PULSE 60; RESP 18; TEMP 35.9; O2SAT 96
[2019-05-04] MEDS: Levothyroxine 75 MCG Tablet PO (05:28)
[2019-05-04] MEDS: Loratadine 10 MG Tablet PO (05:29)
[2019-05-04] MEDS: Atenolol 100 MG Tablet PO (05:29)
[2019-05-04] MEDS: Calcium Carbonate 500 MG Tablet PO ×2 (08:19→16:52)
[2019-05-04] MEDS: traMADol 50 MG Tablet PO ×3 (08:45→21:32)
--- NOTE | 2019-05-04 09:47 | NURSING ---
This nurse entered patients room at 0815 and she was a sleep. Patient awakened for scheduled Tums. Patient then when back to sleep. Shortly after, physical therapy went in to do her morning therapy and reported to me that she was stating she was in too much pain to perform her therapy. The PT told me that she was asking for pain medication. I went into to medicate the patient at 0845 and she was not cooperating with me assessing her pain stating what is the point it doesn't matter anyway. This nurse explained that I needed to properly asses her pain to provide her with her pain medication. She then said well I guess it is a 7/10. This nurse administered Ultram and explained I would be back to reassess her pain. This nurse reassessed her pain at 0930 and the patient was lying in her bed. When asking her pain level she stated I guess it is a 5. Assessment documented.
[2019-05-04] MEDS: Ondansetron ODT 4 MG Tablet 8 MG PO (11:22)
--- NOTE | 2019-05-04 11:45 | CASEMGMT ---
Addendum entered by Brenda Eastman 05/04/19 16:58: Patient changed her mind and decided to DC home alone. Pt denies DME or HHC needs. Notified [facility]. Pt stated her friend can pick her up. PLAN: DC home alone 05/06 with no needs. Original Note: Social Work Spoke with patient about discharge plans. Pt requested [facility] to refer. Referrals made. Will continue to follow. Brenda Eastman, CHEMA HEADW
[2019-05-04 15:44] VITALS: BP 121/56; PULSE 65; RESP 18; TEMP 37.1; O2SAT 96
--- NOTE | 2019-05-04 20:53 | DCINST_ITS ---
- Discharge Diagnoses Current Active Problems: Current Active and Chronic Problems Debility (Acute) Nausea & vomiting (Acute) Autoimmune pancreatitis (Chronic) Alcohol dependence (Chronic) Prolonged QT interval (Acute) Psoriatic arthritis (Chronic) You will use the following diet at home:: No restrictions, Regular Your food should be the consistency of: Regular Your liquids should be the consistency of: Regular/Thin Discharge Activity: Return to Normal Activity, May Shower, Use Walker Weight Bearing Status: Weight bearing as tolerated Call your doctor if you observe: Fever of 101 or Higher, Inability to urinate, Inability to have a bowel movement, Shortness of breath, Chest pain, Uncontrolled pain Allergies/Adverse Reactions: Allergies nickel [Nickel] Allergy (Verified 04/13/19 17:28) Rash/autoimmune reactions prochlorperazine edisylate [From Compazine] Adverse Reaction (Verified 04/13/19 14:33) disoriented prochlorperazine maleate [From Compazine] Adverse Reaction (Verified 04/13/19 14:33) DISORIENTED Medications to take at Discharge Acetaminophen [Tylenol] 650 mg PO Q4H PRN PRN 04/16/19 Atenolol [Tenormin (beta rené)] 100 mg PO DAILY #30 tab 05/04/19 Levothyroxine [Synthroid] 75 mcg PO DAILY #30 tab 05/04/19 Loratadine [Claritin] 10 mg PO DAILY #30 tab 05/04/19 Menthol/Lanolin/Calamine/Znox [Calmoseptine Ointment] 1 applic TOPICAL 0600,2200 PRN tube 05/04/19 Mineral Oil/Petrolatum,White [Eucerin] 1 applic TOPICAL QHS jar 05/04/19 Ondansetron [Zofran Odt] 8 mg PO Q8H PRN PRN #90 tab 05/04/19 traMADol [Ultram] 50 mg PO Q6H PRN PRN #28 tablet 05/04/19 The following prescriptions were given: Loratadine [Claritin] 10 mg PO DAILY #30 tab Transmission Status: Pending to [facility] Levothyroxine [Synthroid] 75 mcg PO DAILY #30 tab Transmission Status: Pending to [facility] Atenolol [Tenormin (beta rené)] 100 mg PO DAILY #30 tab Transmission Status: Pending to [facility] traMADol [Ultram] 50 mg PO Q6H PRN PRN #28 tablet PRN Reason: Pain Score 4-10/10 Transmission Status: Sent to [facility] Ondansetron [Zofran Odt] 8 mg PO Q8H PRN PRN #90 tab PRN Reason: Nausea Transmission Status: Pending to [facility] Primary Care Physician: Brant Howard Chi, MD [Primary Care Provider] - Please follow up with your Primary Care Physician in: 1 week. Test Results: Test results from this visit will be discussed in further detail at your follow- up appointment, if applicable. Proposed Discharge Date: 05/06/19
--- NOTE | 2019-05-04 20:54 | PCM.DC.SUM ---
Discharge Date and Diagnosis - Problem List Patient Problems: Active and Suspected Problems Debility (Acute) Nausea & vomiting (Acute) Prolonged QT interval (Acute) Date of Admission: 04/16/19 Date of Discharge: 05/06/19 - Primary Discharge Diagnosis Active and Suspected Problems Debility (Acute) Nausea & vomiting (Acute) Prolonged QT interval (Acute) - Secondary Discharge Diagnosis Chronic Problems Autoimmune pancreatitis (Chronic) Alcohol dependence (Chronic) Psoriatic arthritis (Chronic) Hepatic steatosis (Chronic) Alcoholic pancreatitis (Chronic) Alcohol abuse (Chronic) Hypertension (Chronic) Hypothyroidism (Chronic) Anxiety (Chronic) Fibromyalgia (Chronic) Dysphagia (Chronic) Rheumatoid arthritis (Chronic) never confirmed.....RA is negative.....tells me that she has psoriatic arthritis Psoriasis (Chronic) Chronic back pain (Chronic) osteoarthritis Delusional disorder (Chronic) Bipolar disorder (Chronic) Depression with H/o suicidal attempt (Chronic) Hospital Course and Treatment Imaging Results: 04/16/19 15:37 Diet: Regular Diet Food consistency:: Mechanical Soft/Ground Liquid Consistency:: Regular/Thin Type of Dietary Supplement:: Ensure Complete Operations: None Procedures: None Summary of Care Provided: The patient is a 69 year old Fmale with below past medical history hospitalized for nausea, vomiting, dehydration, complicated by prolonged QT, Hypokalemia, Hypophosphatemia, Hypocalcemia, admitted to TCU with debility, here for rehabilitation, strengthening, prior to discharge home alone. Discharge home alone. Patient Problems: Active and Suspected Problems Debility (Acute) Nausea & vomiting (Acute) Prolonged QT interval (Acute) - Physical Exam Vitals/I&O's: Vital Signs Temp Pulse Resp BP Pulse Ox 98.7 F 65 18 121/56 H 96 05/04/19 15:44 05/04/19 15:44 05/04/19 15:44 05/04/19 15:44 05/04/19 15:44 Oxygen Delivery Method Room Air Weight: 60.356 kg Body Mass Index (BMI) 23.4 Finger Stick Blood Glucose 103 Intake and Output for Last 24 Hours 05/02/19 05/03/19 05/04/19 23:59 23:59 23:59 Intake Total 840 / 840 600 / 600 480 / 480 Balance 840 / 840 600 / 600 480 / 480 Current Medications Acetaminophen (Tylenol) 650 mg PO Q4H PRN PRN PRN Reason: Pain Score 1-3/10 Last Admin: 05/03/19 13:12 Dose: 650 mg Documented by: Atenolol (Tenormin (Beta Terry)) 100 mg PO DAILY [facility] Last Admin: 05/04/19 05:29 Dose: 100 mg Documented by: Calamine/Phenol (Calmoseptine Ointment) 1 applic TOPICAL 0600,2200 PRN; Protocol PRN Reason: redness Calcium Carbonate (Tums) 500 mg PO BIDCM [facility] Last Admin: 05/04/19 16:52 Dose: 500 mg Documented by: Calcium Carbonate (Tums) 500 - 1,000 mg PO Q4H PRN PRN PRN Reason: INDIGESTION Levothyroxine Sodium (Synthroid) 75 mcg PO DAILY [facility] Last Admin: 05/04/19 05:28 Dose: 75 mcg Documented by: Loperamide HCl (Imodium) 2 mg PO Q4H PRN PRN PRN Reason: Diarrhea Loratadine (Claritin) 10 mg PO DAILY [facility] Last Admin: 05/04/19 05:29 Dose: 10 mg Documented by: Multi-Ingredient Cream (Eucerin) 1 applic TOPICAL QHS [facility]; Protocol Last Admin: 05/03/19 19:38 Dose: 1 applicatio Documented by: Ondansetron HCl (Zofran Odt) 8 mg PO Q8H PRN PRN PRN Reason: NAUSEA Last Admin: 05/04/19 11:22 Dose: 8 mg Documented by: Tramadol HCl (Ultram) 50 mg PO Q6H PRN PRN PRN Reason: Pain Score 4-10/10 Last Admin: 05/04/19 15:04 Dose: 50 mg Documented by: Discharge Diet: No Restrictions Discharge Activity: Return to Normal Activity, May Shower, Use Walker Weight Bearing Status: Weight bearing as tolerated Call your doctor if you observe: Fever of 101 or Higher, Inability to urinate, Inability to have a bowel movement, Shortness of breath, Chest pain, Uncontrolled pain Home Medications: Medications to take at Discharge Acetaminophen [Tylenol] 650 mg PO Q4H PRN PRN 04/16/19 Atenolol [Tenormin (beta terry)] 100 mg PO DAILY #30 tab 05/04/19 Levothyroxine [Synthroid] 75 mcg PO DAILY #30 tab 05/04/19 Loratadine [Claritin] 10 mg PO DAILY #30 tab 05/04/19 Menthol/Lanolin/Calamine/Znox [Calmoseptine Ointment] 1 applic TOPICAL 0600,2200 PRN tube 05/04/19 Mineral Oil/Petrolatum,White [Eucerin] 1 applic TOPICAL QHS jar 05/04/19 Ondansetron [Zofran Odt] 8 mg PO Q8H PRN PRN #90 tab 05/04/19 traMADol [Ultram] 50 mg PO Q6H PRN PRN #28 tablet 05/04/19 Following Prescrptions Were Given to Patient: Loratadine [Claritin] 10 mg PO DAILY #30 tab Transmission Status: Pending to [facility]30 Levothyroxine [Synthroid] 75 mcg PO DAILY #30 tab Transmission Status: Pending to [facility]30 Atenolol [Tenormin (beta terry)] 100 mg PO DAILY #30 tab Transmission Status: Pending to [facility] #30 traMADol [Ultram] 50 mg PO Q6H PRN PRN #28 tablet PRN Reason: Pain Score 4-10/10 Transmission Status: Sent to [facility]30 Ondansetron [Zofran Odt] 8 mg PO Q8H PRN PRN #90 tab PRN Reason: Nausea Transmission Status: Pending to [facility] Primary Care Physician: Brant Howard Chi, MD [Primary Care Provider] - Please follow up with your Primary Care Physician in: 1 week. Disposition: Home Minutes spent on discharge:: 30 Patient Condition:: Stable Medical Necessity - Tobacco Use Smoking Status: Current every day smoker Tobacco Use: Cigarettes Meaningful Use Info Meaningful Use Diagnoses (Choose all that apply): None applicable
[2019-05-05] MEDS: Loratadine 10 MG Tablet PO (04:26)
[2019-05-05] MEDS: Levothyroxine 75 MCG Tablet PO (04:26)
[2019-05-05] MEDS: Atenolol 100 MG Tablet PO (04:26)
[2019-05-05] MEDS: traMADol 50 MG Tablet PO ×3 (04:26→18:07)
--- NOTE | 2019-05-05 07:46 | MDS.RN ---
Pain interview for magali 05/06/19 completed.
[2019-05-05] MEDS: Calcium Carbonate 500 MG Tablet PO ×2 (08:18→16:58)
[2019-05-05 08:45] VITALS: PULSE 78; RESP 16; O2SAT 98
[2019-05-05 15:13] VITALS: BP 126/67; PULSE 63; RESP 20; TEMP 37.1; O2SAT 100
--- NOTE | 2019-05-05 16:59 | CASEMGMT ---
Social Work BIMS and PHQ-9 completed for MDS assessment. Brenda Eastman, CAFE OPERATOR SECTION HAND
[2019-05-06] MEDS: traMADol 50 MG Tablet PO ×2 (00:07→06:27)
[2019-05-06] MEDS: Atenolol 100 MG Tablet PO (06:29)
[2019-05-06] MEDS: Loratadine 10 MG Tablet PO (06:29)
[2019-05-06] MEDS: Levothyroxine 75 MCG Tablet PO (06:29)
[2019-05-06] MEDS: Calcium Carbonate 500 MG Tablet PO (08:43)
[2019-05-06 12:42] VITALS: BP 130/70; PULSE 60; RESP 18; TEMP 36.7; O2SAT 98
--- NOTE | 2019-05-21 11:32 | CCN.REFER ---
Patient asked CCN to call after 05/19 to discuss CCN. T/C to patient today - declining CCN and declines to take phone number. States home is too cluttered for anyone to come into it.
== END 2019-05-06 10:45 | disposition home or self-care (01) | DRG 641 ==
LOC: TCU 15:06
PROVIDERS: Admitting Provider Family Medicine Geriatric Medicine; Family Provider Family Medicine Geriatric Medicine; PCP Family Medicine Geriatric Medicine; Referring Provider Family Medicine Geriatric Medicine; Visit Provider Family Medicine Geriatric Medicine
DX: E87.6 Hypokalemia (principal); K86.1 Other chronic pancreatitis; E83.51 Hypocalcemia; R94.31 Abnormal electrocardiogram [ECG] [EKG]; Z23 Encounter for immunization; E03.9 Hypothyroidism, unspecified; I10 Essential (primary) hypertension; F10.20 Alcohol dependence, uncomplicated; M79.7 Fibromyalgia; M19.90 Unspecified osteoarthritis, unspecified site; L40.9 Psoriasis, unspecified; F17.210 Nicotine dependence, cigarettes, uncomplicated; K70.10 Alcoholic hepatitis without ascites; F31.9 Bipolar disorder, unspecified; R53.81 Other malaise; Z79.899 Other long term (current) drug therapy
CPT/HCPCS: 36415; 80048; 85025; 90732; 92610; 97110; 97116; 97162; 97166; 97530; 97535; 97802; 99406; G0009

== ENCOUNTER → 2019-05-18 14:36 | Outpatient (CLI) | payer MEDICARE, SELFPAY ==
[2019-05-18 17:25] LABS: Absolute Lymphocyte Count 1.31 X10^3/uL (0.83-4.51); Absolute Neutrophil Count 9.1 X10^3/uL (2.0-7.7); Basophil# 0.06 X10^3/uL; Basophil% 0.5 % (0-1); Eosinophil# 0.43 X10^3/uL; Eosinophils% 3.6 % (0-5); Hematocrit 46.2 % (37-47); Hemoglobin 14.5 g/dL (12.0-15.0); Lymphocyte # 1.31 X10^3/ul (4.0); Lymphocyte % 11.1 % (19-41); Mean Corp Hgb Conc 31.4 g/dL (32-36); Mean Corpuscular Hgb 32.8 pg (27.0-32.0); Mean Corpuscular Volume 104.5 fL (81-99); Mean Platelet Vol. 9.7 fl (6.2-12.0); Monocyte# 0.85 X10^3/uL; Monocyte% 7.2 % (0-10); NRBC Flagged by Analyzer 0 % (0-5); Neutrophil # 9.09 X10^3/uL (2.7-7.7); Neutrophil % 76.8 % (47-70); Platelet Count 340 K/mm3 (150-450); RBC Distribution Width CV 12.3 % (11.6-14.6); RBC Distribution Width SD 47.7 fl (35.1-43.9); Red Blood Count 4.42 M/mm3 (4.2-5.4); White Blood Count 11.8 K/mm3 (4.4-11.0)
[2019-05-18 17:37] LABS: ALB/GLOB Ratio 0.8 RATIO (0.9-2.4); AST(SGOT) 48 U/L (15-37); Alanine Aminotransfer ALT/SGPT 47 U/L (13-56); Albumin, Serum 3.7 g/dL (3.2-5.0); Alkaline Phosphatase 118 U/L (45-117); Anion Gap 7 (5-15); BUN 18 mg/dL (7-18); BUN/Creat Ratio 24.6 RATIO (10-20); Calcium,Total 9.4 mg/dL (8.5-10.1); Chloride 99 mmol/L (98-107); Creatinine, Serum 0.73 mg/dL (0.55-1.02); EST Glomerular Filtration Rate 83 mL/min (>60); Est Glom Filt Rate - Afr Amer 101 mL/min (>60); Globulin 4.5 g/dL (2.2-4.2); Glucose 233 mg/dL (74-106); Potassium 4.3 mmol/L (3.5-5.1); Protein, Total 8.2 g/dL (6.4-8.2); Sodium Level 136 mmol/L (136-145); Thyroid Stim Hormone (TSH) 4.19 uIU/mL (0.358-3.74)
[2019-05-19 10:47] LABS: Hepatitis C Antibody Non-Reactive (Nonreactive); Vitamin D,25 Hydroxy 16.6 ng/mL (29.95-100.01)
== END ==
LOC: POLAB3 14:37
PROVIDERS: Family Provider Family Medicine Geriatric Medicine; PCP Family Medicine Geriatric Medicine; Visit Provider Family Medicine Geriatric Medicine
DX: E55.9 Vitamin D deficiency, unspecified (principal); I10 Essential (primary) hypertension; Z13.89 Encounter for screening for other disorder
CPT/HCPCS: 36415; 80053; 82306; 84443; 85025; 86803

== ENCOUNTER 2019-06-08 11:12 | Inpatient (IN) | payer MEDICARE, SELFPAY ==
[2019-06-08 11:15] VITALS: BP 151/81; PULSE 118; RESP 16; TEMP 36.7; O2SAT 99; BMI 22.5
--- NOTE | 2019-06-08 11:26 | EKG12_ITS ---
Test Reason : DYSRHYTHMIA Blood Pressure : / mmHG Vent. Rate : 117 BPM Atrial Rate : 117 BPM P-R Int : 152 ms QRS Dur : 080 ms QT Int : 348 ms P-R-T Axes : 064 044 051 degrees QTc Int : 485 ms Sinus tachycardia Otherwise normal ECG Confirmed by SEEMA PARKS ([id number]), sports editor SARITHA COLON ([id number]) on 06/10/2019 10:57:07 AM Referred By: Moreno Paul Confirmed By:SEEMA PARKS
[2019-06-08] MEDS: Morphine 4 MG/ML Syringe IV ×4 (11:56→21:58)
[2019-06-08] MEDS: 0.9% Normal Saline 1,000 ML 1000 ML IV (11:56)
[2019-06-08] MEDS: Ondansetron 4 MG/2 ML Vial IV ×2 (11:56→15:41)
[2019-06-08 12:00] LABS: Absolute Lymphocyte Count 0.51 X10^3/uL (0.83-4.51); Basophil# 0.04 X10^3/uL; Basophil% 0.4 % (0-1); Eosinophil# 0.04 X10^3/uL; Eosinophils% 0.4 % (0-5); Hematocrit 48.3 % (37-47); Hemoglobin 15.5 g/dL (12.0-15.0); Lymphocyte # 0.51 X10^3/ul (4.0); Lymphocyte % 4.5 % (19-41); Mean Corp Hgb Conc 32.1 g/dL (32-36); Mean Corpuscular Hgb 32.6 pg (27.0-32.0); Mean Corpuscular Volume 101.7 fL (81-99); Mean Platelet Vol. 9.1 fl (6.2-12.0); Monocyte% 6.2 % (0-10); NRBC Flagged by Analyzer 0 % (0-5); Neutrophil # 9.96 X10^3/uL (2.7-7.7); Neutrophil % 87.6 % (47-70); POSITIVE DIFFERENTIAL YES; Platelet Count 149 K/mm3 (150-450); RBC Distribution Width SD 49.7 fl (35.1-43.9); Red Blood Count 4.75 M/mm3 (4.2-5.4); White Blood Count 11.4 K/mm3 (4.4-11.0)
[2019-06-08 12:06] LABS: Differential Indicated SCAN CRITERIA MET
[2019-06-08 12:15] LABS: ALB/GLOB Ratio 1.1 RATIO (0.9-2.4); AST(SGOT) 229 U/L (15-37); Alanine Aminotransfer ALT/SGPT 136 U/L (13-56); Albumin, Serum 4.5 g/dL (3.2-5.0); Alkaline Phosphatase 170 U/L (45-117); Anion Gap 29 (5-15); BUN 11 mg/dL (7-18); BUN/Creat Ratio 11.1 RATIO (10-20); Chloride 97 mmol/L (98-107); EST Glomerular Filtration Rate 58 mL/min (>60); Est Glom Filt Rate - Afr Amer 71 mL/min (>60); Estimated Creatinine Clearance 46.43 ml/min; Globulin 4.2 g/dL (2.2-4.2); Glucose 112 mg/dL (74-106); Lipase 1730 U/L (73-393); Magnesium 2.1 mg/dL (1.6-2.6); Potassium 3.7 mmol/L (3.5-5.1); Protein, Total 8.7 g/dL (6.4-8.2); Sodium Level 137 mmol/L (136-145)
--- NOTE | 2019-06-08 12:29 | ED.VISSUMM ---
- ER Visit Summary Date of Service: 06/08/19 Chief Complaint: [Pain all over as well as nausea and vomiting] History of Present Illness: The patient is a 69 F [presents to the emergency department 2-day history of vomiting frequently. Patient complains of diffuse abdominal discomfort. She describes diffuse body pain and feels like her arthritis is also flared up. Patient denies drinking alcohol recently. She does have a history of autoimmune disorders as well as history of pancreatitis, anxiety, bipolar disorder, hypothyroidism, and hypertension. Patient denies any fevers at home. She denies chest pain or shortness of breath. She denies dysuria.] Physical Examination: [HEENT-PERRLA, EOMI. Cranial nerves II through XII grossly intact. TMs clear. Mucous membranes moist. No adenopathy. Cardiovascular-regular rate and rhythm without murmur or ectopy Lungs-clear to auscultation, chest wall stable without crepitus or subcu emphysema Abdomen-normoactive bowel sounds, soft. Patient has tenderness diffusely over the epigastric region. There is no rebound, rigidity, or peritoneal signs. Extremities-intact ?4, normal range of motion, normal pulses, atraumatic] Test Results: [CBC with differential obtained showed a white count of 7.4, hemoglobin 15, hematocrit 48, plates 149. Chemistries unremarkable patient CO2 was low at 11.. LFTs showed an elevated alk phos of 170, ALT 136, AST 229, and lipase of 1730. Troponin was less than 0.015. EKG obtained on arrival showed a sinus rhythm with a ventricular rate of 117 bpm.] Emergency Department Course and Treatment: [Patient was ordered normal saline was medicated with morphine and Zofran. Treatment Plan: [Admit for symptom management.] Disposition: [Admit] Impression: [Acute pancreatitis Dehydration Generalized weakness and difficulty caring for self.] This note was generated with [employer] dictation software. It may contain incorrect words, spelling, and punctuation that were not noted in review of the chart prior to signing ED Disposition - Plan for ED Patient: Referrals: Brant Howard Chi, MD [Primary Care Provider] -
--- NOTE | 2019-06-08 12:44 | HP.PCM_ITS ---
Problem List (1) Abnormal LFTs Status: Chronic (2) Alcoholic hepatitis Status: Acute Qualifiers: Ascites presence: without ascites Qualified Code(s): K70.10 - Alcoholic hepatitis without ascites (3) Debility Status: Chronic (4) Gastroenteritis Status: Resolved (5) Hypokalemia Status: Resolved (6) Nausea & vomiting Status: Acute (7) Prolonged QT interval Status: Resolved (8) Alcohol abuse Status: Chronic (9) Alcohol dependence Status: Chronic (10) Alcoholic pancreatitis Status: Acute Qualifiers: Chronicity: acute (11) Anxiety Status: Chronic (12) Autoimmune pancreatitis Status: Chronic (13) Bipolar disorder Status: Chronic Qualifiers: Active/Remission status: remission status unspecified Qualified Code(s): F31.9 - Bipolar disorder, unspecified (14) Chronic back pain Status: Chronic Qualifiers: Comment: osteoarthritis (15) Delusional disorder Status: Chronic (16) Depression with H/o suicidal attempt Status: Chronic (17) Dysphagia Status: Chronic (18) Fibromyalgia Status: Chronic (19) Hepatic steatosis Status: Chronic (20) Hypertension Status: Chronic Qualifiers: (21) Hypothyroidism Status: Chronic Qualifiers: (22) Psoriasis Status: Chronic (23) Psoriatic arthritis Status: Chronic (24) Rheumatoid arthritis Status: Chronic Comment: never confirmed.....RA is negative.....tells me that she has psoriatic arthritis (25) Hypomagnesemia Status: Resolved (26) Acute recurrent pancreatitis Status: Chronic (27) Alcohol intoxication in active alcoholic with complication Status: Inactive (28) Alcoholic ketosis Status: Inactive (29) Dehydration Status: Inactive (30) Lactic acidosis Status: Inactive (31) Metabolic acidosis Status: Inactive (32) Shock, unspecified Status: Inactive History of Present Illness Date of Admission: 06/08/19 Chief Complaint: Abdominal pain The patient is a 69 year old F with past medical history significant for recurrent pancreatitis secondary to autoimmune pancreatitis, worsened by chronic alcohol use who presented with abdominal pain.. Patient also did complain of generalized aches she also did experience nausea and some vomiting. On further questioning patient was not forthcoming with that she had recently drank alcohol. Her lipase levels were however noted to be markedly elevated on subsequent evaluation and assessment of acute on chronic recurrent pancreatitis made admitted to regular nursing floor for further management Past Medical History Past Medical History (Chronic Problems): Chronic Problems Debility (Chronic) Autoimmune pancreatitis (Chronic) Alcohol dependence (Chronic) Psoriatic arthritis (Chronic) Hepatic steatosis (Chronic) Acute recurrent pancreatitis (Chronic) Abnormal LFTs (Chronic) Alcohol abuse (Chronic) Hypertension (Chronic) Hypothyroidism (Chronic) Anxiety (Chronic) Fibromyalgia (Chronic) Dysphagia (Chronic) Rheumatoid arthritis (Chronic) never confirmed.....RA is negative.....tells me that she has psoriatic arthritis Psoriasis (Chronic) Chronic back pain (Chronic) osteoarthritis Delusional disorder (Chronic) Bipolar disorder (Chronic) Depression with H/o suicidal attempt (Chronic) Allergies nickel [Nickel] Allergy (Verified 06/08/19 11:18) Rash/autoimmune reactions prochlorperazine edisylate [From Compazine] Adverse Reaction (Verified 06/08/19 11:18) disoriented prochlorperazine maleate [From Compazine] Adverse Reaction (Verified 06/08/19 11:18) DISORIENTED Home Medications: Ambulatory Orders Medication Instructions Recorded Acetaminophen [Tylenol] 650 mg PO Q4H PRN PRN 04/16/19 Atenolol [Tenormin (beta rené)] 100 mg PO DAILY #30 tab 05/04/19 Levothyroxine [Synthroid] 75 mcg PO DAILY #30 tab 05/04/19 Ondansetron [Zofran Odt] 8 mg PO Q8H PRN PRN #90 tab 05/04/19 Loratadine [Claritin] 10 mg PO PRN PRN 06/08/19 Surgical History: tonsillectomy Psychiatric History: Anxiety, Bipolar, Depression, - - Delusional disorder. 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 Paternal History Items: - - Reports that her father from aspiration pneumonia at age 92. And her grandfather from pneumonia at age 32. She also notes that her father had exposure to nickel and had some diseases related but cannot give this information. Denied any history of heart disease, diabetes or cancer. Review of Systems Constitutional: Reports: Malaise, Fatigue. Denies: Anorexia, Chills, Fever, Night Sweats, Weight Change HEENT: Denies: Head Aches, Sinus Congestion, Sinus Drainage Cardiovascular: Denies: Chest Pain, Orthopnea, Palpitations, Paroxysmal Noc. Dyspnea Respiratory: Denies: Cough, Shortness of breath at rest, Shortness of breath upon exertion, Sputum production Gastrointestinal: Reports: Abdominal Pain, Nausea, Vomiting. Denies: Hematemesis, Hematochezia, Melena Genitourinary: Denies: Dysuria, Frequency, Hematuria, Urgency Musculoskeletal: Denies: Joint Pain, Joint Tenderness Skin: Denies: Rash Neurological: Denies: Focal weakness, Numbness, Tingling Psychiatric: Denies: Homicidal Ideations, Suicidal Ideations Hematologic/ Lymphatic: Denies: Easy Bruising, Easy Bleeding VTE Information - Inpt Only VTE Present on Admission: No VTE Mechan Device Prophylaxis: None VTE Pharm Prophylaxis ordered?: Yes - Physical Exam Vitals/I&O's: Vital Signs Temp Pulse Resp BP Pulse Ox 98.1 F 118 H 16 151/81 H 99 06/08/19 11:15 06/08/19 11:15 06/08/19 11:15 06/08/19 11:15 06/08/19 11:15 Oxygen Delivery Method Room Air Weight: 61.4 kg Body Mass Index (BMI) 22.5 Finger Stick Blood Glucose 103 Laboratory Results 06/08/19 11:37: WBC 11.4 H, RBC 4.75, Hgb 15.5 H, Hct 48.3 H, MCV 101.7 H, MCH 32.6 H, MCHC 32.1, RDW Std Deviation 49.7 H, RDW Coeff of Jonathan 13.0, Plt Count 149 L, MPV 9.1, Immature Gran % (Auto) 0.900, Neut % (Auto) 87.6 H, Lymph % (Auto) 4.5 L, [place] % (Auto) 6.2, Eos % (Auto) 0.4, Baso % (Auto) 0.4, Absolute Neuts (auto) 10.0 H, Absolute Lymphs (auto) 0.51 L, Nucleated RBC % 0, Differential Comment COMMENT 06/08/19 11:37: Sodium 137, Potassium 3.7, Chloride 97 L, Carbon Dioxide 11.0 L, Anion Gap 29 H, BUN 11, Creatinine 1.00, Estim Creat Clear Calc 46.43, Est GFR (MDRD) Af Amer 71, Est GFR (MDRD) Non-Af 58 L, BUN/Creatinine Ratio 11.1, Glucose 112 H, Calcium 9.0, Magnesium 2.1, Total Bilirubin 1.10 H, AST 229 H, ALT 136 H, Alkaline Phosphatase 170 H, Troponin I < 0.015, Total Protein 8.7 H, Albumin 4.5, Globulin 4.2, Albumin/Globulin Ratio 1.1, Lipase 1730 H 06/08/19 12:31: Urine Color Pending, Urine Clarity Pending, Urine pH Pending, Ur Specific [place] Pending, Urine Protein Pending, Urine Glucose (UA) Pending, Urine Ketones Pending, Urine Occult Blood Pending, Urine Nitrite Pending, Urine Bilirubin Pending, Urine Urobilinogen Pending, Ur Leukocyte Esterase Pending, Urine RBC Pending, Urine WBC Pending, Ur Squamous Epith Cells Pending, Urine Bacteria Pending, Urine Mucus Pending 06/08/19 12:31: Ethyl Alcohol Pending Assessment/Plan All Active Problems Nausea & vomiting (Acute) Prolonged QT interval (Resolved) Gastroenteritis (Resolved) Hypomagnesemia (Resolved) Alcoholic hepatitis (Acute) Hypokalemia (Resolved) Alcoholic pancreatitis (Acute) Patient is a 69-year-old lady presented with abdominal pain diagnosed with acute pancreatitis 1. Acute recurrent pancreatitis secondary to autoimmune otitis worsened by chronic alcohol use Patient admitted to regular nursing floor managed with bowel rest pain meds antinausea medications as well as PPI 2. Chronic alcohol use ?Patient denies recent use 3. Inflammatory polyarthropathy ~patient is managed by rheumatology as outpatient 4. Hypothyroidism ~patient is on levothyroxine home dose continued 5. Hypertension ~ blood pressure controlled, home medications continued with dose adjustment as needed 6. Tobacco dependence ~counseled on cessation, offered nicotine patch for tobacco cravings 7. DVT prophylaxis ~ on enoxaparin Advance planning; did discuss with the patient regarding advanced directives as well as CODE STATUS. Did explain the various scenarios involved ( FULL CODE, DNR CCA, DNR CCA with no intubation, and DNR CC and what each meant) patient elected a full code with intubation and CPR if warranted. Order was placed. Time spent on discussion 16 minutes. Code Visit Inpatient E&M: 79125 Subs Hosp L3 Procedures: 45615 Advncd Care Plan 30 Min
[2019-06-08 12:45] LABS: Bacteria 0 SEEN /hpf (None Seen); Mucous, Urine 0 SEEN /hpf (<or=2+); Red Blood Cells-Urine 0 SEEN /hpf (0-5); Squamous Epithelial Cells - UA 0 SEEN /hpf (5-10); White Blood Cells 0 SEEN /hpf (0-5)
[2019-06-08 12:47] LABS: Color, Urine Yellow (Yellow); Glucose, Dipstick Normal (Normal); Leukocyte Esterase-Dipstick Negative /ul (Negative); Nitrite-Dipstick Negative (Negative); Occult Blood-Urine Negative /ul (Negative); Protein-Dipstick 30 mg/dl (Negative); Specific Gravity, Urine 1.025 (1.002-1.030); Urine Bilirubin Dipstick Negative (Negative); Urine Clarity Sl. Cloudy (Clear); Urine Urobilinogen Normal (Normal)
[2019-06-08 12:51] LABS: Ketone-Dipstick 150 mg/dl (Negative)
[2019-06-08 12:59] VITALS: BP 141/81; PULSE 94; RESP 14; O2SAT 97
[2019-06-08 13:07] LABS: Alcohol, Blood (Medical)-Serum < 3.0 mg/dL
[2019-06-08 14:26] VITALS: BMI 21.0
[2019-06-08 14:30] VITALS: BP 173/98; PULSE 123; RESP 18; TEMP 37.1; O2SAT 96
[2019-06-08 14:32] VITALS: BMI 21.1
[2019-06-08] MEDS: Dext 5%-0.45% NS 1,000 ML 150 ML IV ×2 (14:32→21:22)
[2019-06-08] MEDS: BENZOCAINE/MENTHOL 1 LOZENGE MUCOUS MEM ×3 (15:41→21:57)
[2019-06-08] MEDS: 0.9% Saline Lock 10 ML Syringe IV ×3 (15:41→21:58)
[2019-06-08 16:05] VITALS: O2SAT 95
[2019-06-08 20:02] VITALS: BP 152/66; PULSE 98; RESP 18; TEMP 37.2; O2SAT 100
[2019-06-09] MEDS: BENZOCAINE/MENTHOL 1 LOZENGE MUCOUS MEM ×3 (02:04→20:21)
[2019-06-09] MEDS: Ondansetron 4 MG/2 ML Vial IV (02:07)
[2019-06-09] MEDS: 0.9% Saline Lock 10 ML Syringe IV ×2 (02:07→04:09)
[2019-06-09 02:10] VITALS: BP 151/67; PULSE 99; RESP 18; TEMP 36.6; O2SAT 100
[2019-06-09] MEDS: Dext 5%-0.45% NS 1,000 ML 150 ML IV ×4 (04:05→23:37)
[2019-06-09] MEDS: Morphine 4 MG/ML Syringe IV ×2 (04:08→10:52)
[2019-06-09 07:02] LABS: Absolute Lymphocyte Count 0.47 X10^3/uL (0.83-4.51); Absolute Neutrophil Count 4.1 X10^3/uL (2.0-7.7); Basophil# 0.02 X10^3/uL; Basophil% 0.4 % (0-1); Eosinophil# 0.06 X10^3/uL; Eosinophils% 1.2 % (0-5); Hematocrit 38.2 % (37-47); Hemoglobin 12.7 g/dL (12.0-15.0); Lymphocyte # 0.47 X10^3/ul (4.0); Lymphocyte % 9.4 % (19-41); Mean Corp Hgb Conc 33.2 g/dL (32-36); Mean Corpuscular Hgb 32.3 pg (27.0-32.0); Mean Corpuscular Volume 97.2 fL (81-99); Mean Platelet Vol. 9.1 fl (6.2-12.0); Monocyte# 0.35 X10^3/uL; NRBC Flagged by Analyzer 0 % (0-5); Neutrophil # 4.05 X10^3/uL (2.7-7.7); Neutrophil % 81.4 % (47-70); POSITIVE DIFFERENTIAL YES; Platelet Count 107 K/mm3 (150-450); RBC Distribution Width CV 12.7 % (11.6-14.6); RBC Distribution Width SD 46.2 fl (35.1-43.9); Red Blood Count 3.93 M/mm3 (4.2-5.4)
[2019-06-09 07:07] LABS: Anion Gap 7 (5-15); BUN 6 mg/dL (7-18); Calcium,Total 8.2 mg/dL (8.5-10.1); Chloride 107 mmol/L (98-107); Creatinine, Serum 0.86 mg/dL (0.55-1.02); EST Glomerular Filtration Rate 69 mL/min (>60); Est Glom Filt Rate - Afr Amer 84 mL/min (>60); Estimated Creatinine Clearance 53.99 ml/min; Glucose 209 mg/dL (74-106); Potassium 3.1 mmol/L (3.5-5.1); Sodium Level 138 mmol/L (136-145)
[2019-06-09 07:14] LABS: Differential Indicated SCAN CRITERIA MET
[2019-06-09 07:58] LABS: Differential Comment SCANNED
[2019-06-09 08:10] VITALS: BP 128/65; PULSE 84; RESP 16; TEMP 36.9; O2SAT 99
--- NOTE | 2019-06-09 08:17 | PN_ITS ---
Reason for Visit: Follow-up acute pancreatitis Subjective: Patient is a 69-year-old lady presented with abdominal pain diagnosed with acute pancreatitis Objective: GENERAL: cooperative HEENT: Atraumatic; EYES; Anicteric, Normal Conjunctiva NECK; supple, normal thyroid, RESPIRATORY: Diminished to auscultation CARDIOVASCULAR: Regular S1 S2, GI: Epigastric tenderness : No Renal angle tenderness; EXTREMITIES: No edema, no clubbing, MUSCULOSKELETAL: no muscle waisting NEURO: Awake; no lateralizing signs. SKIN: No Rash PSYCH; Flat affect Vitals/I&O's: Vital Signs Temp Pulse Resp BP Pulse Ox 97.8 F 99 18 151/67 H 100 06/09/19 02:10 06/09/19 02:10 06/09/19 02:10 06/09/19 02:10 06/09/19 02:10 Oxygen Delivery Method Room Air Weight: 57.425 kg Body Mass Index (BMI) 21.0 Finger Stick Blood Glucose 103 Intake and Output for Last 24 Hours 06/07/19 06/08/19 06/09/19 23:59 23:59 23:59 Intake Total 1999 / 1999 1000.0 / 1000.0 Output Total 360 / 510 400 / 400 Balance 1640 / 1490 600.0 / 600.0 Laboratory Results 06/08/19 11:37: WBC 11.4 H, RBC 4.75, Hgb 15.5 H, Hct 48.3 H, MCV 101.7 H, MCH 32.6 H, MCHC 32.1, RDW Std Deviation 49.7 H, RDW Coeff of Jonathan 13.0, Plt Count 149 L, MPV 9.1, Immature Gran % (Auto) 0.900, Neut % (Auto) 87.6 H, Lymph % (Auto) 4.5 L, [place] % (Auto) 6.2, Eos % (Auto) 0.4, Baso % (Auto) 0.4, Absolute Neuts (auto) 10.0 H, Absolute Lymphs (auto) 0.51 L, Nucleated RBC % 0, Differential Comment COMMENT 06/08/19 11:37: Sodium 137, Potassium 3.7, Chloride 97 L, Carbon Dioxide 11.0 L, Anion Gap 29 H, BUN 11, Creatinine 1.00, Estim Creat Clear Calc 46.43, Est GFR (MDRD) Af Amer 71, Est GFR (MDRD) Non-Af 58 L, BUN/Creatinine Ratio 11.1, Glucose 112 H, Calcium 9.0, Magnesium 2.1, Total Bilirubin 1.10 H, AST 229 H, ALT 136 H, Alkaline Phosphatase 170 H, Troponin I < 0.015, Total Protein 8.7 H, Albumin 4.5, Globulin 4.2, Albumin/Globulin Ratio 1.1, Lipase 1730 H 06/08/19 12:31: Urine Color Yellow, Urine Clarity Sl. Cloudy, Urine pH 5.0, Ur Specific [place] 1.025, Urine Protein 30 H, Urine Glucose (UA) Normal, Urine Ketones 150 H, Urine Occult Blood Negative, Urine Nitrite Negative, Urine Bilirubin Negative, Urine Urobilinogen Normal, Ur Leukocyte Esterase Negative, Urine RBC 0 SEEN, Urine WBC 0 SEEN, Ur Squamous Epith Cells 0 SEEN, Urine Bacteria 0 SEEN, Urine Mucus 0 SEEN 06/08/19 12:31: Ethyl Alcohol < 3.0 06/09/19 06:35: Sodium 138, Potassium 3.1 L, Chloride 107, Carbon Dioxide 24.0, Anion Gap 7, BUN 6 L, Creatinine 0.86, Estim Creat Clear Calc 53.99, Est GFR (MDRD) Af Amer 84, Est GFR (MDRD) Non-Af 69, BUN/Creatinine Ratio 7.0 L, Glucose 209 H, Calcium 8.2 L 06/09/19 06:35: WBC 5.0, RBC 3.93 L, Hgb 12.7, Hct 38.2, MCV 97.2, MCH 32.3 H, MCHC 33.2, RDW Std Deviation 46.2 H, RDW Coeff of Jonathan 12.7, Plt Count 107 L, MPV 9.1, Immature Gran % (Auto) 0.600, Neut % (Auto) 81.4 H, Lymph % (Auto) 9.4 L, [place] % (Auto) 7.0, Eos % (Auto) 1.2, Baso % (Auto) 0.4, Absolute Neuts (auto) 4.1, Absolute Lymphs (auto) 0.47 L, Nucleated RBC % 0, Differential Comment SCANNED Current Medications Acetaminophen (Tylenol) 650 mg PO Q6H PRN PRN PRN Reason: Pain Score 1-3/Temp > 100.7 F Al Hydroxide/Mg Hydroxide (Mylanta Ii) 30 ml PO Q6H PRN PRN PRN Reason: Gastric Burning Albuterol Sulfate (Ventolin Aerosols) 2.5 mg INHALATION Q2H PRN PRN PRN Reason: Shortness of Breath/Wheezing Atenolol (Tenormin (Beta Terry)) 100 mg PO DAILY [facility] Enoxaparin Sodium (Lovenox) 40 mg SC DAILY [facility] Glucagon () 1 mg IM .X1 PRN PRN Reason: Hypoglycemia Dextrose/Sodium Chloride () 1,000 mls @ 150 mls/hr IV .Q6H40M [facility] Last Admin: 06/09/19 04:05 Dose: 150 mls/hr Documented by: Dextrose (Dextrose 10%-Water) 250 mls @ 999 mls/hr IV .Q16M PRN; Protocol PRN Reason: HYPOGLYCEMIA Levothyroxine Sodium (Synthroid) 75 mcg PO DAILY@0600 [facility] Last Admin: 06/09/19 05:04 Dose: Not Given Documented by: Loratadine (Claritin) 10 mg PO DAILY PRN PRN PRN Reason: ALLERGIES Magnesium Hydroxide (Milk Of Magnesia) 30 ml PO DAILY PRN PRN PRN Reason: Constipation Melatonin (Melatonin) 3 mg PO QHS PRN PRN PRN Reason: INSOMNIA Morphine Sulfate () 4 mg IV Q3H PRN PRN PRN Reason: Pain Score 6-10/10 Last Admin: 06/09/19 04:08 Dose: 4 mg Documented by: Nitroglycerin (Nitrostat) 0.4 mg SUBLINGUAL Q5M PRN PRN Reason: CARDIAC/CHEST PAIN Ondansetron HCl (Zofran) 4 mg IV Q8H PRN PRN PRN Reason: NAUSEA/VOMITING Last Admin: 06/09/19 02:07 Dose: 4 mg Documented by: Oxycodone HCl (Oxyir) 10 mg PO Q4H PRN PRN PRN Reason: Pain Score 4-5/10 Sodium Chloride () 10 - 40 ml IV UD PRN PRN Reason: SALINE FLUSH Last Admin: 06/09/19 04:09 Dose: 10 ml Documented by: Throat Lozenges (Cepacol Sore Throat Lozenge) 1 lozenge MUCOUS MEM Q2H PRN PRN PRN Reason: Sore throat or cough Last Admin: 01/01/20 05:03 Dose: 1 lozenge Documented by: Medical Necessity - Tobacco Use Smoking Status: Current every day smoker Tobacco Use: Cigarettes Assessment/Plan All Active Problems Nausea & vomiting (Acute) Prolonged QT interval (Resolved) Gastroenteritis (Resolved) Hypomagnesemia (Resolved) Alcoholic hepatitis (Acute) Hypokalemia (Resolved) Alcoholic pancreatitis (Acute) Patient is a 69-year-old lady presented with abdominal pain diagnosed with acute pancreatitis 1. 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 Started on clear liquid with plans to advance as tolerated 2. Chronic alcohol use ?Patient denies recent use 3. Inflammatory polyarthropathy ~patient is managed by rheumatology as outpatient 4. Hypothyroidism ~patient is on levothyroxine home dose continued 5. Hypertension ~ blood pressure controlled, home medications continued with dose adjustment as needed 6. Tobacco dependence ~counseled on cessation, offered nicotine patch for tobacco cravings 7. DVT prophylaxis ~ on enoxaparin Code Visit Inpatient E&M: 64666 Subs Hosp L2
[2019-06-09] MEDS: Levothyroxine 75 MCG Tablet PO (08:44)
[2019-06-09] MEDS: Atenolol 100 MG Tablet PO (08:47)
[2019-06-09] MEDS: Enoxaparin 40 MG/0.4 ML Syringe SC (08:47)
[2019-06-09] MEDS: Pantoprazole Sodium 40 MG Tablet PO (08:47)
[2019-06-09 11:33] VITALS: O2SAT 100
[2019-06-09 14:10] VITALS: BP 104/57; PULSE 73; RESP 16; TEMP 36.2; O2SAT 99
[2019-06-09] MEDS: oxyCODONE 5 MG Tablet 10 MG PO ×3 (14:39→23:40)
[2019-06-09 20:10] VITALS: BP 120/75; PULSE 75; RESP 18; TEMP 36.8; O2SAT 99
[2019-06-10 03:10] VITALS: BP 120/63; PULSE 75; RESP 18; TEMP 36.6; O2SAT 100
[2019-06-10] MEDS: BENZOCAINE/MENTHOL 1 LOZENGE MUCOUS MEM ×4 (03:18→23:11)
[2019-06-10] MEDS: oxyCODONE 5 MG Tablet 10 MG PO ×4 (05:05→23:08)
[2019-06-10] MEDS: Levothyroxine 75 MCG Tablet PO (05:05)
[2019-06-10 05:50] LABS: Absolute Lymphocyte Count 0.54 X10^3/uL (0.83-4.51); Absolute Neutrophil Count 3.5 X10^3/uL (2.0-7.7); Basophil# 0.01 X10^3/uL; Basophil% 0.2 % (0-1); Eosinophils% 2.2 % (0-5); Hematocrit 36.3 % (37-47); Hemoglobin 11.9 g/dL (12.0-15.0); Lymphocyte # 0.54 X10^3/ul (4.0); Mean Corp Hgb Conc 32.8 g/dL (32-36); Mean Corpuscular Hgb 31.6 pg (27.0-32.0); Mean Corpuscular Volume 96.5 fL (81-99); Mean Platelet Vol. 9.3 fl (6.2-12.0); Monocyte# 0.36 X10^3/uL; NRBC Flagged by Analyzer 0 % (0-5); Neutrophil # 3.45 X10^3/uL (2.7-7.7); Neutrophil % 76.9 % (47-70); POSITIVE COUNT YES; POSITIVE DIFFERENTIAL YES; Platelet Count 89 K/mm3 (150-450); RBC Distribution Width CV 12.9 % (11.6-14.6); Red Blood Count 3.76 M/mm3 (4.2-5.4); White Blood Count 4.5 K/mm3 (4.4-11.0)
[2019-06-10 06:06] LABS: Anion Gap 7 (5-15); BUN 3 mg/dL (7-18); BUN/Creat Ratio 4.9 RATIO (10-20); Calcium,Total 8.1 mg/dL (8.5-10.1); Chloride 108 mmol/L (98-107); Creatinine, Serum 0.62 mg/dL (0.55-1.02); EST Glomerular Filtration Rate 101 mL/min (>60); Est Glom Filt Rate - Afr Amer 123 mL/min (>60); Estimated Creatinine Clearance 46.43 ml/min; Glucose 176 mg/dL (74-106); Potassium 2.8 mmol/L (3.5-5.1); Sodium Level 142 mmol/L (136-145)
[2019-06-10 06:20] LABS: Differential Indicated SCAN CRITERIA MET
[2019-06-10] MEDS: Dext 5%-0.45% NS 1,000 ML 150 ML IV (06:20)
[2019-06-10 08:07] VITALS: O2SAT 99
--- NOTE | 2019-06-10 08:56 | PN_ITS ---
Reason for Visit: Follow-up acute pancreatitis Subjective: Patient seen still complains of abdominal discomfort. Diagnostic data reviewed significant for potassium of 2.9 repletion initiated. Patient also complains of falling all over requested for PT OT eval and social work job titles to assist with discharge planning Objective: GENERAL: cooperative HEENT: Atraumatic; EYES; Anicteric, Normal Conjunctiva NECK; supple, normal thyroid, RESPIRATORY: Diminished to auscultation CARDIOVASCULAR: Regular S1 S2, GI: Epigastric tenderness : No Renal angle tenderness; EXTREMITIES: No edema, no clubbing, MUSCULOSKELETAL: no muscle waisting NEURO: Awake; no lateralizing signs. SKIN: No Rash PSYCH; Flat affect Vitals/I&O's: Vital Signs Temp Pulse Resp BP Pulse Ox 97.9 F 75 18 120/63 99 06/10/19 03:10 06/10/19 03:10 06/10/19 03:10 06/10/19 03:10 06/10/19 08:07 Oxygen Delivery Method Room Air Weight: 57.425 kg Body Mass Index (BMI) 21.0 Finger Stick Blood Glucose 103 Intake and Output for Last 24 Hours 06/08/19 06/09/19 06/10/19 23:59 23:59 23:59 Intake Total 1999 / 1999 4125.0 / 4125.0 1150 / 1150 Output Total 360 / 510 1050 / 1050 500 / 500 Balance 1640 / 1490 3075.0 / 3075.0 650 / 650 Laboratory Results 06/10/19 05:25: Sodium 142, Potassium 2.8 L, Chloride 108 H, Carbon Dioxide 27.0, Anion Gap 7, BUN 3 L, Creatinine 0.62, Estim Creat Clear Calc 46.43, Est GFR (MDRD) Af Amer 123, Est GFR (MDRD) Non-Af 101, BUN/Creatinine Ratio 4.9 L, Glucose 176 H, Calcium 8.1 L 06/10/19 05:25: WBC 4.5, RBC 3.76 L, Hgb 11.9 L, Hct 36.3 L, MCV 96.5, MCH 31.6, MCHC 32.8, RDW Std Deviation 46.0 H, RDW Coeff of Jonathan 12.9, Plt Count 89 L, MPV 9.3, Immature Gran % (Auto) 0.700, Neut % (Auto) 76.9 H, Lymph % (Auto) 12.0 L, [place] % (Auto) 8.0, Eos % (Auto) 2.2, Baso % (Auto) 0.2, Absolute Neuts (auto) 3.5, Absolute Lymphs (auto) 0.54 L, Nucleated RBC % 0 Current Medications Acetaminophen (Tylenol) 650 mg PO Q6H PRN PRN PRN Reason: Pain Score 1-3/Temp > 100.7 F Al Hydroxide/Mg Hydroxide (Mylanta Ii) 30 ml PO Q6H PRN PRN PRN Reason: Gastric Burning Albuterol Sulfate (Ventolin Aerosols) 2.5 mg INHALATION Q2H PRN PRN PRN Reason: Shortness of Breath/Wheezing Atenolol (Tenormin (Beta Terry)) 100 mg PO DAILY [facility] Last Admin: 06/09/19 08:47 Dose: 100 mg Documented by: Enoxaparin Sodium (Lovenox) 40 mg SC DAILY [facility] Last Admin: 06/09/19 08:47 Dose: 40 mg Documented by: Glucagon () 1 mg IM .X1 PRN PRN Reason: Hypoglycemia Potassium Chloride 10 meq/ N/A 100 mls @ 100 mls/hr IV Q1H [facility] Stop: 06/10/19 12:59 Levothyroxine Sodium (Synthroid) 75 mcg PO DAILY@0600 [facility] Last Admin: 06/10/19 05:05 Dose: 75 mcg Documented by: Loratadine (Claritin) 10 mg PO DAILY PRN PRN PRN Reason: ALLERGIES Magnesium Hydroxide (Milk Of Magnesia) 30 ml PO DAILY PRN PRN PRN Reason: Constipation Melatonin (Melatonin) 3 mg PO QHS PRN PRN PRN Reason: INSOMNIA Morphine Sulfate () 4 mg IV Q3H PRN PRN PRN Reason: Pain Score 6-10/10 Last Admin: 06/09/19 10:52 Dose: 4 mg Documented by: Nitroglycerin (Nitrostat) 0.4 mg SUBLINGUAL Q5M PRN PRN Reason: CARDIAC/CHEST PAIN Ondansetron HCl (Zofran) 4 mg IV Q8H PRN PRN PRN Reason: NAUSEA/VOMITING Last Admin: 06/09/19 02:07 Dose: 4 mg Documented by: Oxycodone HCl (Oxyir) 10 mg PO Q4H PRN PRN PRN Reason: Pain Score 4-5/10 Last Admin: 06/10/19 05:05 Dose: 10 mg Documented by: Pantoprazole Sodium (Protonix) 40 mg PO DAILY [facility] Last Admin: 06/09/19 08:47 Dose: 40 mg Documented by: Potassium Chloride (K-Dur) 20 meq PO BIDCM [facility] Sodium Chloride () 10 - 40 ml IV UD PRN PRN Reason: SALINE FLUSH Last Admin: 06/09/19 04:09 Dose: 10 ml Documented by: Throat Lozenges (Cepacol Sore Throat Lozenge) 1 lozenge MUCOUS MEM Q2H PRN PRN PRN Reason: Sore throat or cough Last Admin: 06/10/19 03:18 Dose: 1 lozenge Documented by: STROKE Vital Signs/Narrative: Vital Signs Pulse Ox 06/10/19 08:07 99 Medical Necessity - Tobacco Use Smoking Status: Current every day smoker Tobacco Use: Cigarettes Assessment/Plan All Active Problems Nausea & vomiting (Acute) Prolonged QT interval (Resolved) Gastroenteritis (Resolved) Hypomagnesemia (Resolved) Alcoholic hepatitis (Acute) Hypokalemia (Resolved) Alcoholic pancreatitis (Acute) Patient is a 69-year-old lady presented with abdominal pain diagnosed with acute pancreatitis 1. 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 Started on clear liquid with plans to advance as tolerated ?06/10/2019 patient diet advanced to full liquids 2. Chronic alcohol use ?Patient denies recent use 3. Inflammatory polyarthropathy ~patient is managed by rheumatology as outpatient 4. Hypothyroidism ~patient is on levothyroxine home dose continued 5. Hypertension ~ blood pressure controlled, home medications continued with dose adjustment as needed 6. Tobacco dependence ~counseled on cessation, offered nicotine patch for tobacco cravings 7. DVT prophylaxis ~ on enoxaparin 8. Physical deconditioning ?Requested for PT OT eval and social work job titles to assist with discharge planning 9. Hypokalemia corrected per protocol Code Visit Inpatient E&M: 81150 Subs Hosp L2
[2019-06-10 09:10] VITALS: BP 125/65; PULSE 84; RESP 18; TEMP 36.6; O2SAT 100
[2019-06-10] MEDS: Morphine 4 MG/ML Syringe IV ×2 (09:38→14:31)
[2019-06-10] MEDS: Ondansetron 4 MG/2 ML Vial IV (09:38)
[2019-06-10] MEDS: Pantoprazole Sodium 40 MG Tablet PO (09:43)
[2019-06-10] MEDS: Enoxaparin 40 MG/0.4 ML Syringe SC (09:43)
[2019-06-10] MEDS: Atenolol 100 MG Tablet PO (09:43)
--- NOTE | 2019-06-10 14:02 | CASEMGMT ---
Social Work Note SAM reviewed chart. Pt was in TCU from 04/16/2019/05/06/2019, used all 20 days of Medicare Days. In Feb 2019 pt was provided information on community action and taxi voucher program and transportation options in [place]. On 04/13/2019 pt was provided application for transportation through [employer]. On 04/15/2019 medicaid application was completed and faxed to [facility]. SW met with pt to confirm discharge plans. SW familiar with pt from previous visits to [facility]. SW introduced self and role at [facility]. Pt is alert and orientated x3. Pt states that she will need to go to SNF at discharge and asked about returning to TCU. SW informed pt that if medically cleared she could discharge to SNF tomorrow and at this time, there are no beds available on TCU. Pt states she doesn't feel ready for discharge tomorrow. SW informed pt that it is up to physician when pt is discharged but if a SNF is what the pt wants to do then the SNF needs to be lined up before the weekend. SW informed pt that she used 20 days of Medicare so whichever facility she goes to she will be in her copay days. SW explained that Medicare will pay for 80% and then there is a 20% copay. SW asked pt about medicaid application. Pt states she has been unable to get to [facility] to submit documentation. Pt states that her car is still broken down and she has no close family or friends. Pt did mention that she has two brothers but they are not close. SW mentioned to pt again that multiple times she has been provided transportation resources and she needs to utilize them. Pt states I am to weak to even get in to a taxi. SW asked if pt could reach out to her brothers for assistance with documents and pt states she didn't know and that she didn't really want to. SW informed pt that she may have to reach out for help of she is not able to do things on her own. SW explained that if her medicaid becomes active then her medicaid will pay the copay of being in a SNF. SW asked pt about choices for SNF. SW provided pt with list of SNF that accept pt's insurance and again reiterated that pt will have a copay until medicaid becomes active. Pt states that her first choice is [facility] and second choice is [facility]. SW informed pt that this worker will send referrals and give her an update. Pt states understanding. Pt denied wanting any additional resources for transportation and denied wanting an alcohol use resources. SW placed a call to Bernice at [facility] and faxed referral. Plan: SNF pending acceptance Jeanette Wright MSW, ROLL SHOP SUPERVISOR
--- NOTE | 2019-06-10 15:17 | CHAPLAIN ---
Type of Pastoral Visit _x__ Initial Visit ___ Follow-up Visit ___ On-call Visit ___ General Patient Visit ___ Spiritual Assessment ___ Family Conference ___ Bereavement ___ Rapid Response ___ Code Blue ___ Other (describe below) Pastoral Care Referral From _x__ Patient ___ Family ___ Nurse ___ Physician ___ Staffing Recruiter ___ Fiber Technician ___ Other (describe below) Sacrament/Intervention _x__ Active listening ___ Anointing ___ Zoroastrian ___ Bereavement ___ Communion _x__ Litzy exploration ___ _x__ Life review _x__ Prayer ___ Reconciliation ___ Sacrament of Sick _x__ Supportive presence ___ Wedding ___ Other (describe below) Pastoral Comments repeat patient; pt welcomes visit and prayer support
[2019-06-10 15:45] VITALS: BP 100/59; PULSE 65; RESP 18; TEMP 36.8; O2SAT 99
--- NOTE | 2019-06-10 16:38 | CASEMGMT ---
Social Work Note SAM received message from Bernice at [facility] stating they are able to accept pt tomorrow. Bernice states that as long as pt is aware of the copay costs if she doesn't get approved SNF and also knows that pt will not be able to smoke or drink while at [facility]. Bernice also states pt will not be able to be on Humira. SAM reviewed pt's medication list and no Humira is listed on pt's medication list. SW to update pt tomorrow. Plan: [facility] tomorrow if medically cleared Jeanette Wright JUNIOR SYSTEMS ANALYST, COLLEGE PRESIDENT
[2019-06-10 20:04] VITALS: BP 119/63; PULSE 76; RESP 18; TEMP 37; O2SAT 99
[2019-06-10] MEDS: MELATONIN 3 MG TABLET PO (23:11)
[2019-06-11 02:14] VITALS: BP 118/60; PULSE 64; RESP 18; TEMP 36.9; O2SAT 98
[2019-06-11] MEDS: 0.9% Saline Lock 10 ML Syringe IV ×2 (02:23→06:18)
[2019-06-11] MEDS: Morphine 4 MG/ML Syringe IV (02:23)
--- NOTE | 2019-06-11 05:00 | NURSING ---
Walked into room and it smelled like urine. Pt had removed her attends and had attempted to throw it in the trash can. Pt would not let Shira CALIX assist her nor would she allow Stone CRABTREE to help. Pt insisted on cleaning herself up, placing her attends (which she did incorrectly and did not fasten), and putting on a new gown. She did use the wipes I provided to wipe her bottom, part of her legs & chest. She allowed me to wipe her back. Bed exit back in place.
[2019-06-11] MEDS: Levothyroxine 75 MCG Tablet PO (06:08)
[2019-06-11] MEDS: oxyCODONE 5 MG Tablet 10 MG PO ×2 (06:15→10:18)
[2019-06-11] MEDS: BENZOCAINE/MENTHOL 1 LOZENGE MUCOUS MEM (06:15)
[2019-06-11] MEDS: Ondansetron 4 MG/2 ML Vial IV (06:15)
[2019-06-11 07:03] LABS: Absolute Neutrophil Count 3.2 X10^3/uL (2.0-7.7); Basophil# 0.02 X10^3/uL; Basophil% 0.4 % (0-1); Eosinophil# 0.16 X10^3/uL; Eosinophils% 3.5 % (0-5); Hematocrit 36.7 % (37-47); Lymphocyte % 17.4 % (19-41); Mean Corp Hgb Conc 32.7 g/dL (32-36); Mean Corpuscular Hgb 31.5 pg (27.0-32.0); Mean Corpuscular Volume 96.3 fL (81-99); Mean Platelet Vol. 9.4 fl (6.2-12.0); Monocyte# 0.42 X10^3/uL; Monocyte% 9.2 % (0-10); NRBC Flagged by Analyzer 0 % (0-5); Neutrophil # 3.16 X10^3/uL (2.7-7.7); Neutrophil % 68.8 % (47-70); Platelet Count 103 K/mm3 (150-450); RBC Distribution Width SD 45.4 fl (35.1-43.9); Red Blood Count 3.81 M/mm3 (4.2-5.4); White Blood Count 4.6 K/mm3 (4.4-11.0)
[2019-06-11 07:25] LABS: Anion Gap 4 (5-15); BUN 4 mg/dL (7-18); BUN/Creat Ratio 8.7 RATIO (10-20); Chloride 109 mmol/L (98-107); Creatinine, Serum 0.46 mg/dL (0.55-1.02); EST Glomerular Filtration Rate 142 mL/min (>60); Est Glom Filt Rate - Afr Amer 172 mL/min (>60); Estimated Creatinine Clearance 46.43 ml/min; Glucose 160 mg/dL (74-106); Potassium 3.4 mmol/L (3.5-5.1); Sodium Level 141 mmol/L (136-145)
--- NOTE | 2019-06-11 09:08 | PCM.TXEXTCAR ---
- Diet 06/09/19 08:21 Diet: Full Liquid Type of Dietary Supplement:: Ensure Complete Is pt able to select menu?: Yes - Routine Orders/Code Status Code Status: Full Code - Therapies Physical Therapy: Eval and Treat Occupational Therapy: Eval and Treat - Problem/Diagnosis (1) Abnormal LFTs Status: Chronic Current Visit: No (2) Alcoholic hepatitis Status: Acute Current Visit: No (3) Debility Status: Chronic Current Visit: No (4) Nausea & vomiting Status: Acute Current Visit: No (5) Alcohol abuse Status: Chronic Current Visit: No (6) Alcohol dependence Status: Chronic Current Visit: No (7) Alcoholic pancreatitis Status: Acute Current Visit: No (8) Anxiety Status: Chronic Current Visit: No (9) Autoimmune pancreatitis Status: Chronic Current Visit: No (10) Bipolar disorder Status: Chronic Current Visit: No (11) Chronic back pain Status: Chronic Comment: osteoarthritis Current Visit: No (12) Delusional disorder Status: Chronic Current Visit: No (13) Depression with H/o suicidal attempt Status: Chronic Current Visit: No (14) Dysphagia Status: Chronic Current Visit: No (15) Fibromyalgia Status: Chronic Current Visit: No (16) Hepatic steatosis Status: Chronic Current Visit: No (17) Hypertension Status: Chronic Current Visit: No (18) Hypothyroidism Status: Chronic Current Visit: No (19) Psoriasis Status: Chronic Current Visit: No (20) Psoriatic arthritis Status: Chronic Current Visit: No (21) Rheumatoid arthritis Status: Chronic Comment: never confirmed.....RA is negative.....tells me that she has psoriatic arthritis Current Visit: No (22) Acute recurrent pancreatitis Status: Chronic Current Visit: No - Allergies/Procedures Done in Hospital Allergies/Adverse Reactions: Allergies nickel [Nickel] Allergy (Verified 06/08/19 11:18) Rash/autoimmune reactions prochlorperazine edisylate [From Compazine] Adverse Reaction (Verified 06/08/19 11:18) disoriented prochlorperazine maleate [From Compazine] Adverse Reaction (Verified 06/08/19 11:18) DISORIENTED - Type of Care/Length of Stay Estimated LOS: Convalescent Care Less Than 30 days Type of Care Needed: Skilled Rehab Potential: Fair Prognosis: Fair - Additional Orders/Day of Discharge Day of Discharge: 06/11/19 - Dietary and Speech Recommendations Dietitian Recommendations/Changes: Rec diet advanced as pt medically able to Regular. Will promote PO intake w/ Ensure Enlive 120 ml at meals and Magic Cup at lunch and dinner. - Follow Up Care Primary Care Physician: Brant Howard Chi, MD [Primary Care Provider] - Please follow up with your Primary Care Physician in: in 1-2 weeks
--- NOTE | 2019-06-11 09:11 | DS.PCM_ITS ---
Discharge Date and Diagnosis Date of Admission: 06/08/19 Date of Discharge: 06/11/19 - Primary Discharge Diagnosis Acute recurrent pancreatitis - Secondary Discharge Diagnosis Chronic Problems Debility (Chronic) Autoimmune pancreatitis (Chronic) Alcohol dependence (Chronic) Psoriatic arthritis (Chronic) Hepatic steatosis (Chronic) Acute recurrent pancreatitis (Chronic) Abnormal LFTs (Chronic) Alcohol abuse (Chronic) Hypertension (Chronic) Hypothyroidism (Chronic) Anxiety (Chronic) Fibromyalgia (Chronic) Dysphagia (Chronic) Rheumatoid arthritis (Chronic) never confirmed.....RA is negative.....tells me that she has psoriatic arthritis Psoriasis (Chronic) Chronic back pain (Chronic) osteoarthritis Delusional disorder (Chronic) Bipolar disorder (Chronic) Depression with H/o suicidal attempt (Chronic) Hospital Course and Treatment Operations: None Summary of Care Provided: Patient is a 69-year-old lady presented with abdominal pain diagnosed with acute pancreatitis 1. 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 Started on clear liquid with plans to advance as tolerated ?06/10/2019 patient diet advanced to full liquids ?06/11/2019 patient stable for discharge 2. Chronic alcohol use ?Patient denies recent use 3. Inflammatory polyarthropathy ~patient is managed by rheumatology as outpatient 4. Hypothyroidism ~patient is on levothyroxine home dose continued 5. Hypertension ~ blood pressure controlled, home medications continued with dose adjustment as needed 6. Tobacco dependence ~counseled on cessation, offered nicotine patch for tobacco cravings 7. DVT prophylaxis ~ on enoxaparin 8. Physical deconditioning ?Requested for PT OT eval and social worker assistant to assist with discharge planning ?06/11/2019: Patient was discharged to [facility] facility 9. Hypokalemia corrected per protocol Objective: GENERAL: cooperative HEENT: Atraumatic; EYES; Anicteric, Normal Conjunctiva NECK; supple, normal thyroid, RESPIRATORY: Diminished to auscultation CARDIOVASCULAR: Regular S1 S2, GI: Epigastric tenderness : No Renal angle tenderness; EXTREMITIES: No edema, no clubbing, MUSCULOSKELETAL: no muscle waisting NEURO: Awake; no lateralizing signs. SKIN: No Rash PSYCH; Flat affect - Physical Exam Vitals/I&O's: Vital Signs Temp Pulse Resp BP Pulse Ox 98.5 F 64 18 118/60 98 06/11/19 02:14 06/11/19 02:14 06/11/19 02:14 06/11/19 02:14 06/11/19 02:14 Oxygen Delivery Method Room Air Weight: 57.425 kg Body Mass Index (BMI) 21.0 Finger Stick Blood Glucose 103 Intake and Output for Last 24 Hours 06/09/19 06/10/19 06/11/19 23:59 23:59 23:59 Intake Total 4125.0 / 4125.0 3530 / 3530 300 / 300 Output Total 1050 / 1050 1950 / 1950 Balance 3075.0 / 3075.0 1580 / 1580 300 / 300 Laboratory Results 06/11/19 06:47: WBC 4.6, RBC 3.81 L, Hgb 12.0, Hct 36.7 L, MCV 96.3, MCH 31.5, MCHC 32.7, RDW Std Deviation 45.4 H, RDW Coeff of Jonathan 13.0, Plt Count 103 L, MPV 9.4, Immature Gran % (Auto) 0.700, Neut % (Auto) 68.8, Lymph % (Auto) 17.4 L, [place] % (Auto) 9.2, Eos % (Auto) 3.5, Baso % (Auto) 0.4, Absolute Neuts (auto) 3.2, Absolute Lymphs (auto) 0.80 L, Nucleated RBC % 0 06/11/19 06:47: Sodium 141, Potassium 3.4 L, Chloride 109 H, Carbon Dioxide 28.0, Anion Gap 4 L, BUN 4 L, Creatinine 0.46 L, Estim Creat Clear Calc 46.43, Est GFR (MDRD) Af Amer 172, Est GFR (MDRD) Non-Af 142, BUN/Creatinine Ratio 8.7 L, Glucose 160 H, Calcium 9.0 Current Medications Acetaminophen (Tylenol) 650 mg PO Q6H PRN PRN PRN Reason: Pain Score 1-3/Temp > 100.7 F Al Hydroxide/Mg Hydroxide (Mylanta Ii) 30 ml PO Q6H PRN PRN PRN Reason: Gastric Burning Albuterol Sulfate (Ventolin Aerosols) 2.5 mg INHALATION Q2H PRN PRN PRN Reason: Shortness of Breath/Wheezing Atenolol (Tenormin (Beta Terry)) 100 mg PO DAILY [facility] Last Admin: 06/10/19 09:43 Dose: 100 mg Documented by: Enoxaparin Sodium (Lovenox) 40 mg SC DAILY [facility] Last Admin: 06/10/19 09:43 Dose: 40 mg Documented by: Glucagon () 1 mg IM .X1 PRN PRN Reason: Hypoglycemia Levothyroxine Sodium (Synthroid) 75 mcg PO DAILY@0600 [facility] Last Admin: 06/11/19 06:08 Dose: 75 mcg Documented by: Loratadine (Claritin) 10 mg PO DAILY PRN PRN PRN Reason: ALLERGIES Magnesium Hydroxide (Milk Of Magnesia) 30 ml PO DAILY PRN PRN PRN Reason: Constipation Melatonin (Melatonin) 3 mg PO QHS PRN PRN PRN Reason: INSOMNIA Last Admin: 06/10/19 23:11 Dose: 3 mg Documented by: Morphine Sulfate () 4 mg IV Q3H PRN PRN PRN Reason: Pain Score 6-10/10 Last Admin: 06/11/19 02:23 Dose: 4 mg Documented by: Nitroglycerin (Nitrostat) 0.4 mg SUBLINGUAL Q5M PRN PRN Reason: CARDIAC/CHEST PAIN Ondansetron HCl (Zofran) 4 mg IV Q8H PRN PRN PRN Reason: NAUSEA/VOMITING Last Admin: 06/11/19 06:15 Dose: 4 mg Documented by: Oxycodone HCl (Oxyir) 10 mg PO Q4H PRN PRN PRN Reason: Pain Score 4-5/10 Last Admin: 06/11/19 06:15 Dose: 10 mg Documented by: Pantoprazole Sodium (Protonix) 40 mg PO DAILY [facility] Last Admin: 06/10/19 09:43 Dose: 40 mg Documented by: Potassium Chloride (K-Dur) 20 meq PO BIDCM [facility] Last Admin: 06/10/19 15:48 Dose: 20 meq Documented by: Sodium Chloride () 10 - 40 ml IV UD PRN PRN Reason: SALINE FLUSH Last Admin: 06/11/19 06:18 Dose: 10 ml Documented by: Throat Lozenges (Cepacol Sore Throat Lozenge) 1 lozenge MUCOUS MEM Q2H PRN PRN PRN Reason: Sore throat or cough Last Admin: 06/11/19 06:15 Dose: 1 lozenge Documented by: Discharge Diet: No Restrictions Discharge Activity: Return to Normal Activity, May not drive while taking narcotic pain medications. Home Medications: Medications to take at Discharge Acetaminophen [Tylenol] 650 mg PO Q4H PRN PRN 04/16/19 Atenolol [Tenormin (beta terry)] 100 mg PO DAILY #30 tab 05/04/19 Levothyroxine [Synthroid] 75 mcg PO DAILY #30 tab 05/04/19 Ondansetron [Zofran Odt] 8 mg PO Q8H PRN PRN #90 tab 05/04/19 Loratadine [Claritin] 10 mg PO PRN PRN 06/08/19 Mag Hydrox/Al Hydrox/Simeth [Mylanta II] 30 ml PO Q6H PRN PRN udc 06/11/19 Magnesium Hydroxide [Milk Of Magnesia] 30 ml PO DAILY PRN PRN udc 06/11/19 Melatonin 3 mg PO QHS PRN PRN tab 06/11/19 Pantoprazole Sodium [Protonix] 40 mg PO DAILY tab 06/11/19 Potassium Chloride [K-Dur] 20 meq PO BIDCM tab 06/11/19 Primary Care Physician: Brant Howard Chi, MD [Primary Care Provider] - Please follow up with your Primary Care Physician in: in 1-2 weeks Disposition: Long Term facility Minutes spent on discharge:: 40 Patient Condition:: Stable Medical Necessity - Tobacco Use Smoking Status: Current every day smoker Tobacco Use: Cigarettes Meaningful Use Info Meaningful Use Diagnoses (Choose all that apply): None applicable Code Visit Inpatient E&M: 11636 Disch Hosp
--- NOTE | 2019-06-11 09:49 | CASEMGMT ---
Social Work Pt ready for discharge. SW met with pt in room and introduced self. Pt informed that she has been discharged and [facility] is able to accept. Pt hesitant stating she does not know what she should do. SW spent time with pt discussing d/c plan and options that have been discussed. At end of conversation pt is agreeable to go to [facility] today. Transportation set up with [facility] Wheel[facility] van for 10:30 seed cone picker. Pt was notified and agreeable. Nursing made aware. 7000 form completed in [employer] system and faxed, along with orders, to [facility]. VM left with Bernice at [facility] of time of d/c. Pt had completed [facility] form and asked SW to take care of it. Phone call to Bee in [facility] and form placed in interoffice mail for [facility]. No further d/c needs at this time. RHONDA Salazar
[2019-06-11 10:06] VITALS: BP 136/69; PULSE 81; RESP 16; TEMP 36.6; O2SAT 97
--- NOTE | 2019-06-11 16:56 | CASEMGMT ---
Social Work Received phone call from Bernice at [facility] inquiring about patient and information provided to pt on copay at SNF. Explained information from SW notes and previous interaction with pt from prior stay that yes copay information was provided to py. Explained pt had not followed through with [facility] providing information to get Medicaid. Bernice stated at this present time pt actively walking out of [facility] Brenda Eastman, [employer] HEADW
== END 2019-06-11 10:25 | disposition skilled nursing facility (03) | DRG 439 ==
LOC: ED 11:55 → MS3 13:24
PROVIDERS: Admitting Provider Internal Medicine; Emergency Provider Emergency Medicine; Family Provider Family Medicine Geriatric Medicine; PCP Family Medicine Geriatric Medicine; Referring Provider Internal Medicine; Visit Provider Internal Medicine
DX: K85.90 Acute pancreatitis without necrosis or infection, unspecified (principal); N30.00 Acute cystitis without hematuria; K86.1 Other chronic pancreatitis; B96.20 Unspecified Escherichia coli [E. coli] as the cause of diseases classified elsewhere; K70.10 Alcoholic hepatitis without ascites; F10.20 Alcohol dependence, uncomplicated; Y90.9 Presence of alcohol in blood, level not specified; D89.89 Other specified disorders involving the immune mechanism, not elsewhere classified; M06.4 Inflammatory polyarthropathy; E03.9 Hypothyroidism, unspecified; I10 Essential (primary) hypertension; E87.6 Hypokalemia; R54 Age-related physical debility; L40.50 Arthropathic psoriasis, unspecified; K76.0 Fatty (change of) liver, not elsewhere classified; M79.7 Fibromyalgia; F41.9 Anxiety disorder, unspecified; F22 Delusional disorders; F31.9 Bipolar disorder, unspecified; M19.90 Unspecified osteoarthritis, unspecified site; G89.29 Other chronic pain; R13.10 Dysphagia, unspecified; F17.210 Nicotine dependence, cigarettes, uncomplicated; Z91.5 Personal history of self-harm; Z79.890 Hormone replacement therapy; Z79.899 Other long term (current) drug therapy
CPT/HCPCS: 36415; 80048; 80053; 80320; 81001; 83690; 83735; 84484; 85025; 87086; 87088; 87186; 93005; 97116; 97162; 97166; 97530; 97802; 99251; 99285; 99406; J7040; A4216; G0463; G0480; J2405; J7799

== ENCOUNTER 2019-06-19 01:50 | Emergency (ER) | payer MEDICARE, SELFPAY ==
[2019-06-19 01:51] VITALS: BP 162/91; PULSE 115; RESP 18; TEMP 36.6; O2SAT 99; BMI 21.6
[2019-06-19 02:04] VITALS: RESP 16
--- NOTE | 2019-06-19 02:05 | ED.VIS.GEN ---
History of Present Illness Chief Complaint: Other, Pain/Inj Informant: Patient Narrative: Stated she is having exacerbation of chronic joint pain. She stated over the last 6 years she has had chronic pains in her joints. She has seen rheumatology in the past but she stated no longer sees rheumatology. She was in pain management but has not gone back since December of last year. She was on tramadol which helped with her joint pain. 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 She is denying any symptoms of this currently. She stated she thinks this might be a lupus flareup but has been diagnosed with lupus. She thinks it might be rheumatoid arthritis or psoriatic arthritis or fibromyalgia. She stated she is unsure if she has any of these definitively. Looking at her summary report she does have a diagnosis of fibromyalgia and psoriatic arthritis. She claimed to have rheumatoid in the past but had a negative NAIN study. Patient is nontoxic with no other symptoms. She did states she drank 1 shot of alcohol tonight to try to calm her symptoms - Past Medical History (1) Alcoholic hepatitis Status: Acute (2) Alcoholic pancreatitis Status: Acute (3) Nausea & vomiting Status: Acute (4) Abnormal LFTs Status: Chronic (5) Acute recurrent pancreatitis Status: Chronic (6) Alcohol abuse Status: Chronic (7) Alcohol dependence Status: Chronic (8) Anxiety Status: Chronic (9) Autoimmune pancreatitis Status: Chronic (10) Bipolar disorder Status: Chronic (11) Chronic back pain Status: Chronic Comment: osteoarthritis (12) Debility Status: Chronic (13) Delusional disorder Status: Chronic (14) Depression with H/o suicidal attempt Status: Chronic (15) Dysphagia Status: Chronic (16) Fibromyalgia Status: Chronic (17) Hepatic steatosis Status: Chronic (18) Hypertension Status: Chronic (19) Hypothyroidism Status: Chronic (20) Psoriasis Status: Chronic (21) Psoriatic arthritis Status: Chronic (22) Rheumatoid arthritis Status: Chronic Comment: never confirmed.....RA is negative.....tells me that she has psoriatic arthritis (23) Gastroenteritis Status: Resolved (24) Hypokalemia Status: Resolved (25) Hypomagnesemia Status: Resolved (26) Prolonged QT interval Status: Resolved (27) Alcohol intoxication in active alcoholic with complication Status: Inactive (28) Alcoholic ketosis Status: Inactive (29) Dehydration Status: Inactive (30) Lactic acidosis Status: Inactive (31) Metabolic acidosis Status: Inactive (32) Shock, unspecified Status: Inactive Past Medical History - Allergies and Home Meds Allergies/Adverse Reactions: Allergies nickel [Nickel] Allergy (Verified 06/19/19 01:54) Rash/autoimmune reactions prochlorperazine edisylate [From Compazine] Adverse Reaction (Verified 06/19/19 01:54) disoriented prochlorperazine maleate [From Compazine] Adverse Reaction (Verified 06/19/19 01:54) DISORIENTED Primary Care Physician: Brant Howard Chi, MD [Primary Care Provider] - Prior records reviewed: Yes Past Medical History: - - See problem list Surgical History: tonsillectomy Smoking Status: Current every day smoker Alcohol: Heavy Drugs: None - Family History Maternal Family History: Reports: - - Reports autoimmune disease. Paternal Family History: Reports: - - Reports that her father from aspiration pneumonia at age 92. And her grandfather from pneumonia at age 32. She also notes that her father had exposure to nickel and had some diseases related but cannot give this information. Denied any history of heart disease, diabetes or cancer. Review of Systems General: Denies: Chills, Fever, Sweats Eyes: Denies: Visual changes - bilaterally, Diplopia ENT: Denies: Rhinorrhea, Sore throat Cardiovascular: Denies: Chest pain, Palpitations Respiratory: Denies: Dyspnea, Cough, Dyspnea on exertion Gastrointestinal: Denies: Abdominal pain, Nausea, Vomiting, Diarrhea, Melena, Hematochezia Genitourinary: Denies: Dysuria, Hematuria, Frequency Musculoskeletal: Reports: Arthralgias Skin: Denies: Rash, Wounds Neurological: Denies: Headache, Weakness, Numbness Physical Exam Vital Signs/Narrative: Vital Signs Temp Pulse Resp BP Pulse Ox 06/19/19 01:51 97.9 F 115 H 18 162/91 H 99 General: Well nourished, Well developed, No Acute Distress Head: Normocephalic, Atraumatic Eyes: Perrl, EOMI ENT: Moist mucous membranes, No rhinorrhea Neck: Supple, Nontender Cardiovascular: Regular rate, Regular rhythm, No murmurs Respiratory: No distress, CTA bilaterally, Chest nontender Abdomen: Soft, Nontender, Nondistended, Normal bowel sounds Back: Nontender, Normal Inspection Extremities: Nontender, No edema Skin: - - Psoriasis plaques on her bilateral distal upper arm. Negative for: Normal color, No rash Neurological: Alert, Oriented x3, Cranial nerves II-XII grossly intact, Normal Strength, Normal Sensation Psychological: Normal affect, Normal Mood Diagnostic/Tx/Re-eval - Medical Decision Making Given injection of Toradol for joint pain. I do not think she has an acute emergent cause of her symptoms. This appears to be chronic pain related. She will be given a short course of tramadol and she will follow-up with her doctors ED Disposition - Plan for ED Patient: Disposition: Home or Assisted Living Diagnosis: Arthralgia Instructions: Arthralgia Prescriptions: traMADol [Ultram] 50 mg PO Q4H PRN PRN 3 Days #10 tab PRN Reason: Pain Prescription Printed Referrals: Brant Howard Chi, MD [Primary Care Provider] -
[2019-06-19] MEDS: Ketorolac 15 MG/ML Vial IM (02:12)
--- NOTE | 2019-06-19 03:43 | ED.RN ---
0300 DOCTOR NOTIFIED THAT PATIENT WANTS TO SPEAK TO HIM REGARDING HER PAIN THAT SHE STILL HAS, SHE STATES SHE CANNOT LEAVE BECAUSE SE HAS PAIN ALL OVER, RINGING IN HER EARS AND NAUSEA. PATIENT ASKED WHY SHE DID NOT TELL ANY CAREGIVERS OF THE OTHER SYMPTOMS SHE IS HAVING AND SHE REFUSES TO ANSWER STATING I'M IN PAIN. PRIOR TO THIS RN ENTERING THE ROOM PT WAS SITTING UP INDEPENDENTLY AT THE EDGE OF THE BED THROWING PENNIES AT THE WINDOW ON THE DOOR TO GET NURSES ATTENTION INSTEAD OF USING A CALL LIGHT ATTACHED AND WITHIN REACH ON HER BEDRAIL.
[2019-06-19] MEDS: traMADol 50 MG Tablet PO (03:54)
--- NOTE | 2019-06-19 03:57 | ED.RN ---
PT WAS GIVEN ORAL PAIN MEDICATION SINCE THE IM INJECTION DID NOT WORK FOR HER. PT WAS INFORMED SHE IS ALLOWED TO STAY IN THE ER ROOM UNTIL 0700 OK PER DRILLER OPERATOR SALLY 2 THEN SHE MUST GO OUT TO THE WAITING ROOM TO WAIT FOR HER RIDE. PT RESPONDS BY SAYING SHE NEEDS HELP SITTING UP THOUGH SHE SAT HERSELF UP ON THE END OF THE BED TO THROW PENNIES AT THE WINDOW LESS THAN AN HOUR PRIOR. THIS RN HELPED HER TO A SEATED POSITION
--- NOTE | 2019-06-19 05:41 | ED.RN ---
PT CALLED THIS RN INTO HER ROOM. PT STATES SHE THREW UP 1.5 HOURS AGO IN THE SINK. PT HAD GOTTEN HERSELF OUT OF BED AND STEPPED OVER TO THE SINK TO VOMIT THEN WENT BACK INTO BED. PT STATES SHE IS STILL IN PAIN. PT INFORMED PER MD ORDERS SHE IS NOT GETTING ANYTHING ELSE FOR PAIN AND THAT SHE IS DISCHARGED PER MD INSTRUCTIONS. PT INFORMED THAT PER CHARGE NURSE SHE CAN STAY IN THE ED BED AND CALL FOR A RIDE AT 0700 A COURTESY. PT STATES SHE DOES NOT HAVE A RIDE. PT INFORMED AGAIN SHE WILL BE DISCHARGED TO THE WAITING ROOM AND NEED TO START MAKING ATTEMPTS TO CALL FOR A RIDE SHE HAS NOT YET DONE SO.
--- NOTE | 2019-06-19 07:36 | ED.RN ---
pt refused to leave this morning when told it was time to go to the waiting room. this rn got the graphics intern [email or web address]. both rns discussed with the patient that she was discharged by 0300 and it was a courtesy to let her stay. pt was helped into wheelchair by both rns and wheeled to the waiting room. wheelchair placed in locked position next to phone in waiting room so she could call for a ride. this rn dialed the numbers for her and handed her the ringing phone while pt was seted in the locked chair
== END 2019-06-19 07:38 | disposition home or self-care (01) ==
PROVIDERS: Emergency Provider Emergency Medicine; Family Provider Family Medicine Geriatric Medicine; PCP Family Medicine Geriatric Medicine
DX: M25.50 Pain in unspecified joint (principal); G89.29 Other chronic pain; M79.7 Fibromyalgia; E03.9 Hypothyroidism, unspecified; F10.20 Alcohol dependence, uncomplicated; F17.200 Nicotine dependence, unspecified, uncomplicated
CPT/HCPCS: 96372; 99283

== ENCOUNTER 2019-11-20 10:13 | Emergency (ER) | payer SELFPAY ==
[2019-11-20 10:15] VITALS: BP 151/92; PULSE 101; RESP 18; TEMP 36.6; O2SAT 99; BMI 21.8
--- NOTE | 2019-11-20 10:49 | ED.VIS.GEN ---
History of Present Illness <Candelario Serrano - Last Filed: 11/20/19 12:34> Informant: Patient Onset: Month(s) - 3 months Context: Gradual Onset Timing: Continuous - aching Quality: aching Location: entire body Current Severity: Severe Maximum Severity: Severe Worsened by: movement Relieved by: nothing Associated Symptoms: pain Narrative: 69-year-old female history of alcohol abuse autoimmune pancreatitis bipolar disorder and psoriatic arthritis presents to the emergency department generalized entire body pain for the last several months. Patient has not been going to her physician because of the pandemic from coronavirus and has been off all of her medicines for several months. She has entire body pain she used to be on tramadol but is out of it. No falls injuries or traumas. No fevers chest pain or shortness of breath. No cough or congestion. She is not lightheaded or dizzy. No numbness tingling or weakness. No vomiting or diarrhea. Prior similar symptoms: Yes Recent Illness/Hospitalization: No <Telly Ellis - Last Filed: 11/20/19 12:37> Chief Complaint: Weakness Past Medical History <Candelario Serrano - Last Filed: 11/20/19 12:34> Prior records reviewed: Yes Past Medical History: - - Alcohol abuse, alcoholic hepatitis, autoimmune pancreatitis, bipolar disorder, hypothyroidism Surgical History: tonsillectomy Lives: Alone Smoking Status: Current some day smoker Alcohol: Heavy Drugs: None - Family History Maternal Family History: Reports: - - Reports autoimmune disease. Paternal Family History: Reports: - - Reports that her father from aspiration pneumonia at age 92. And her grandfather from pneumonia at age 32. She also notes that her father had exposure to nickel and had some diseases related but cannot give this information. Denied any history of heart disease, diabetes or cancer. <Telly Ellis - Last Filed: 11/20/19 12:37> - Allergies and Home Meds Allergies/Adverse Reactions: Allergies nickel [Nickel] Allergy (Verified 11/20/19 10:14) Rash/autoimmune reactions prochlorperazine edisylate [From Compazine] Adverse Reaction (Verified 11/20/19 10:14) disoriented prochlorperazine maleate [From Compazine] Adverse Reaction (Verified 11/20/19 10:14) DISORIENTED CADMIUM Allergy (Uncoded 11/20/19 10:20) Rash AUTOIMMUNE RESPONSE Primary Care Physician: Brant Howard Chi, MD [Primary Care Provider] - Review of Systems All systems negative except as indicated General: Denies: Chills, Fever, Sweats Eyes: Denies: Visual changes - bilaterally, Diplopia ENT: Denies: Rhinorrhea, Sore throat Cardiovascular: Denies: Chest pain, Palpitations Respiratory: Denies: Dyspnea, Cough, Dyspnea on exertion Gastrointestinal: Denies: Abdominal pain, Nausea, Vomiting, Diarrhea, Melena, Hematochezia Genitourinary: Denies: Dysuria, Hematuria, Frequency Musculoskeletal: Reports: Myalgias, Arthralgias. Denies: Back pain, Swelling, Extremity Pain Skin: Denies: Rash, Wounds Neurological: Denies: Headache, Weakness, Numbness <Telly Ellis - Last Filed: 11/20/19 12:37> Physical Exam Vital Signs/Narrative: Vital Signs Temp Pulse Resp BP Pulse Ox 11/20/19 12:29 83 18 150/79 H 98 11/20/19 10:15 97.9 F 101 H 18 151/92 H 99 <Candelario Serrano - Last Filed: 11/20/19 12:34> Vital Signs/Narrative: Vital Signs Temp Pulse Resp BP Pulse Ox 11/20/19 10:15 97.9 F 101 H 18 151/92 H 99 Inital Vital Signs reviewed: Yes General: Well nourished, Well developed, No Acute Distress Head: Normocephalic, Atraumatic Eyes: Perrl, EOMI ENT: Moist mucous membranes, No rhinorrhea Neck: Supple, Nontender Cardiovascular: Regular rate, Regular rhythm, No murmurs Respiratory: No distress, CTA bilaterally, Chest nontender Abdomen: Soft, Nontender, Nondistended, Normal bowel sounds Back: Nontender, Normal Inspection Extremities: Nontender, No edema, - - Patient moves all 4 extremities without difficulty. She has no bony tenderness of either feet, ankles, knees or hips. Both shoulders and elbows are nontender on palpation. 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 Skin: Normal color, No rash Neurological: Alert, Oriented x3, Cranial nerves II-XII grossly intact, Normal Strength, Normal Sensation Psychological: Normal affect, Normal Mood <Telly Ellis - Last Filed: 11/20/19 12:37> Diagnostic/Tx/Re-eval - Medical Decision Making Older female complain generalized weakness. She denies nausea, vomiting, diarrhea or fever. Says she just feels weak all over. Physical exam is an older female no acute distress. Vital signs stable afebrile. Resting comfortably in bed. HEENT exam unremarkable. Atraumatic. Moist mucous membranes. Neck nontender. Lungs clear to auscultation bilaterally. Heart regular rate and rhythm no murmur. Abdomen soft nontender. Patient is moving all 4 extremities. Calves are nontender. She has normal range of motion. Back nontender. Neurologically she is awake and alert with no focal motor deficits. Patient has unremarkable exam. Unremarkable labs. Nurses will ambulate her she does well she will be discharged home. Impression: 1. Generalized weakness uncertain etiology 2. History of alcohol excessive use <Candelario Serrano - Last Filed: 11/20/19 12:34> ED Disposition <Candelario Serrano - Last Filed: 11/20/19 12:34> <Telly Ellis - Last Filed: 11/20/19 12:37> - Plan for ED Patient: Disposition: Home or Assisted Living Diagnosis: Generalized weakness, Alcohol abuse, uncomplicated, Chronic pain disorder Instructions: ED Weakness [facility] Referrals: Brant Howard Chi, MD [Primary Care Provider] - As soon as possible
[2019-11-20 11:13] LABS: Anion Gap 14 (5-15); BUN 22 mg/dL (7-18); Calcium,Total 9.9 mg/dL (8.5-10.1); Chloride 99 mmol/L (98-107); Creatinine, Serum 0.79 mg/dL (0.55-1.02); EST Glomerular Filtration Rate 77 mL/min (>60); Est Glom Filt Rate - Afr Amer 93 mL/min (>60); Glucose 170 mg/dL (74-106); Potassium 3.7 mmol/L (3.5-5.1); Sodium Level 134 mmol/L (136-145)
[2019-11-20 11:31] LABS: Absolute Lymphocyte Count 0.47 X10^3/uL (0.83-4.51); Absolute Neutrophil Count 6.8 X10^3/uL (2.0-7.7); Basophil# 0.04 X10^3/uL; Basophil% 0.5 % (0-1); Eosinophil# 0.07 X10^3/uL; Eosinophils% 0.9 % (0-5); Hemoglobin 15.1 g/dL (12.0-15.0); Lymphocyte # 0.47 X10^3/ul (4.0); Lymphocyte % 5.8 % (19-41); Mean Corp Hgb Conc 32.8 g/dL (32-36); Mean Corpuscular Hgb 32.6 pg (27.0-32.0); Mean Corpuscular Volume 99.4 fL (81-99); Mean Platelet Vol. 9.1 fl (6.2-12.0); Monocyte# 0.63 X10^3/uL; Monocyte% 7.8 % (0-10); NRBC Flagged by Analyzer 0 % (0-5); Neutrophil # 6.83 X10^3/uL (2.7-7.7); Neutrophil % 84.4 % (47-70); POSITIVE DIFFERENTIAL YES; Platelet Count 141 K/mm3 (150-450); RBC Distribution Width CV 12.9 % (11.6-14.6); RBC Distribution Width SD 46.6 fl (35.1-43.9); Red Blood Count 4.63 M/mm3 (4.2-5.4); White Blood Count 8.1 K/mm3 (4.4-11.0)
[2019-11-20 11:32] LABS: Differential Indicated SCAN CRITERIA MET
[2019-11-20] MEDS: traMADol 50 MG Tablet PO (12:03)
[2019-11-20 12:29] VITALS: BP 150/79; PULSE 83; RESP 18; O2SAT 98
[2019-11-20 13:57] VITALS: BP 148/81; PULSE 90; RESP 17; O2SAT 96
[2019-11-20 16:28] VITALS: RESP 20
--- NOTE | 2019-11-20 16:29 | ED.RN ---
pt reports not being able to bear weight or walk. dr khan and dmitri ruelas made aware. meghan from social work asked to consult with pt about community resources. pt reports living by herself and is afraid of falling. no bruises are noted on her upper body at this time. pt states that she is to weak to even be able to stand. attempted a test walk with one person assist and walker. pt was able to successfully bare weight on her legs. pt then stated that she was unable to walk forward. when pt needed to use the bedside commode, pt was able to stand and transfer herself under her own strength. social work was able to contact family. pt states she is unable to find anyone to help her at home. pt did state that she has two individuals that come by her place and bring her groceries and help with empting her bedside commode at home. states she doesn't have their phone number and there is no one she can contact. upon d/c from department pt was assisted to wheelchair using her own strenght and then requested to use a phone to contact someone to help her at home.
--- NOTE | 2019-11-20 16:30 | CM.ED ---
Social Work Consult: Resources Informant: LEYDA Smyth Chief Complaint: Patient reports to be weak and unable to care for self at home. Marital/Social History: Single Living Situation: Lives alone in a 2-story home with bathroom on the second floor and 18 steps to enter. Support/Resources: Limited. Patient states to have no one. Patient stating that patient family has disowned me. Education/Employment: Retired. Reports no concerns with comprehension or understanding. Advanced Care Planning: Denies having any advanced directives or wanting information on advanced directives. Mental Health treatment/History: Bi-polar, Anxiety, Depression. Denies any medication for mental health states I don't have mental health. Patient states to only have autoimmune disease and that the mentioned mental health diagnosis's are what they think I have. Patient states I must sound paranoid. Patient denies any history of inpatient psychiatric treatment. Patient states to have seen a psychiatrist when I was young but no active counseling or psychiatric care. Abuse Issues: Denies Triggers/Stressors: not being able to care for self. Substance Abuse/Use: Denies any substance abuse/use. This 7th grade social studies teacher broached topic of alcohol abuse. Patient denies to have any issues. Risk to Self/others: Patient denies any suicidal or homicidal thoughts/intents. Mental Status Exam: A&Ox3 General Appearance: Clean, Calm. Mood: Pleasant. Frustrated with not having any help in the home. Assessment: Met with patient in room introduced self as well as 7th grade social studies teacher role. Patient agreeable to speaking with this 7th grade social studies teacher. Patient states to be weak and to not be able to go home. Patient states that ER doctor has cleared patient to discharge to home but that patient does not feel that patient is able to discharge to home as patient states to be bed bound. This 7th grade social studies teacher inquires as to how long patient has been bed bound. Patient states 4-5 years. This 7th grade social studies teacher inquires as to how patient has been caring for self over the past few years. Patient states I have help. Patient states to not have help at home now, but then states to have someone living at home with patient that helps patient with food. Patient contradicting self multiple times throughout assessment states to have help and then to not and then to have no way home and then to have a way home. Patient states to want to go to a [facility] and then to not want to go to a [facility]. Patient oriented to x3 and is able to demonstrated forward thinking. Patient presents with poor judgement. Patient presents as well kept and states to have a place to live. Patient is agreeable to this 7th grade social studies teacher calling patient brothChidi mercado listed on chart but states He has disowned me. Patient appears to be indecisive on what patient wants at this time. Patient is aware that patient is discharged from the ED at this time. This 7th grade social studies teacher inquires if patient would like this 7th grade social studies teacher to make a referral to [facility] as patient states to have limited support at home. Patient states to be agreeable to referral to [facility] and is aware that it can take time to get set up with help in the home if patient qualifies. Telephone call to patient brothChidi mercado. Chidi confirming to have not spoken to patient for sometime. Chidi states to have been overwhelmed with patient as patient would call multiple times a day and even during the night to tell Chidi that patient is weak and unable to care for self. Chidi stating that patient has said this for years but that patient has been able to care for self from what Chidi new prior to last time Chidi spoke to patient a few months ago. Chidi states that patient has an issue with alcohol and has since patient was 15-16 years old. Chidi stating to believe that the alcohol is the cause for patient behavior. Nursing staff and this 7th grade social studies teacher meeting with patient multiple times. Patient finally states to have a number to call for a ride and for someone to take care of patient. Patient states to be able to go home. Patient escorted out to the waiting room by RN and given phone to call for ride. Patient ride then came to pick patient up. Referral made to [facility] via faxing referral form. Juliano BEAR, KIM
== END 2019-11-20 16:36 | disposition home or self-care (01) ==
PROVIDERS: Emergency Provider Physician Assistant Medical; PCP Family Medicine Geriatric Medicine
DX: R53.1 Weakness (principal); F10.10 Alcohol abuse, uncomplicated; Y90.9 Presence of alcohol in blood, level not specified; G89.29 Other chronic pain; F17.200 Nicotine dependence, unspecified, uncomplicated
CPT/HCPCS: 80048; 85025; 99285

== ENCOUNTER 2019-12-02 13:26 | Emergency (ER) | payer SELFPAY ==
[2019-12-02 13:27] VITALS: BP 105/78; PULSE 105; RESP 16; TEMP 36.8; O2SAT 97; BMI 19.3
--- NOTE | 2019-12-02 14:20 | ED.VIS.GEN ---
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 Howard pain management she has been on Ultram she indicates she is had trouble seeing her physicians through the coronavirus issues so she is does not have any more Ultram she has no one to follow-up with and she came to the emergency department. She is had no fever no cough no exposures to coronavirus no abdominal pain diffuse joint pain she is having is chronic something she has daily Past Medical History - Allergies and Home Meds Allergies/Adverse Reactions: Allergies nickel [Nickel] Allergy (Verified 12/02/19 13:27) Rash/autoimmune reactions prochlorperazine edisylate [From Compazine] Adverse Reaction (Verified 12/02/19 13:27) disoriented prochlorperazine maleate [From Compazine] Adverse Reaction (Verified 12/02/19 13:27) DISORIENTED CADMIUM Allergy (Uncoded 12/02/19 13:27) Rash AUTOIMMUNE RESPONSE Primary Care Physician: Brant Howard Chi, MD [Primary Care Provider] - Past Medical History: - - Diffuse joint pain history of stroke arthritis autoimmune disorder that causes arthritic pain pancreatitis bipolar disorder and prior alcohol abuse Surgical History: tonsillectomy Smoking Status: Current some day smoker - Family History Maternal Family History: Reports: - - Reports autoimmune disease. Paternal Family History: Reports: - - Reports that her father from aspiration pneumonia at age 92. And her grandfather from pneumonia at age 32. She also notes that her father had exposure to nickel and had some diseases related but cannot give this information. Denied any history of heart disease, diabetes or cancer. Review of Systems General: Reports: - - Complaint is generalized whole body pain but she points to her knees her wrists her shoulders and her hips. Denies: Chills, Fever, Sweats Eyes: Denies: Visual changes - bilaterally, Diplopia ENT: Denies: Rhinorrhea, Sore throat Cardiovascular: Denies: Chest pain, Palpitations Respiratory: Denies: Dyspnea, Cough, Dyspnea on exertion Gastrointestinal: Denies: Abdominal pain, Nausea, Vomiting, Diarrhea, Melena, Hematochezia Genitourinary: Denies: Dysuria, Hematuria, Frequency Musculoskeletal: Denies: Back pain, Extremity Pain Skin: Denies: Rash, Wounds Neurological: Denies: Headache, Weakness, Numbness Physical Exam Vital Signs/Narrative: Vital Signs Temp Pulse Resp BP Pulse Ox 12/02/19 13:27 98.3 F 105 H 16 105/78 97 General: Well nourished, Well developed, No Acute Distress Head: Normocephalic, Atraumatic Eyes: Perrl, EOMI ENT: Moist mucous membranes, No rhinorrhea Neck: Supple, Nontender Cardiovascular: Regular rate, Regular rhythm, No murmurs Respiratory: No distress, CTA bilaterally, Chest nontender Abdomen: Soft, Nontender, Nondistended, Normal bowel sounds Back: Nontender, Normal Inspection Extremities: No edema, - - She is able to move all of her major joints but she complains of joint pain here there is no obvious areas of effusion or swelling or trauma she is awake and alert her neurologic status is generally unremarkable she just complained that she feels stiff and painful all over Skin: Normal color, No rash Neurological: Alert, Oriented x3, Cranial nerves II-XII grossly intact, Normal Strength, Normal Sensation Psychological: Normal affect, Normal Mood Diagnostic/Tx/Re-eval - Medical Decision Making I had a long conversation with the patient we discussed her management, she indicates she cannot see her physicians for ongoing Ultram refills she is having trouble even getting to the office because of the coronavirus issues and transportation issues, she has been seen in the emergency room for this process before she is been seen by marriage and family social worker to see if we can assist her with all the above, At this time I have asked social service to see her again to see if we can arrange for her to have transportation services help with arranging appointments keeping appointments medication management will contact her outpatient providers as well and make them aware of the above Her disposition will be pending social service evaluation Social service has seen the patient they have seen her multiple times, I spoke with Dr. Lee guido who reports that he has not seen the patient in some time she generally does not follow-up with him and does not believe that he currently can help with all of her chronic conditions and complaints given that she does not follow-up and believe she should be referred to a provider that she will actually follow-up with ambulatory services representative has seen the patient again they have made referrals to Adult Protective Services, the agency for aging and other community agencies that might be able to provide her help related to her chronic condition transportation, with regards to her pain management that seems to be a major complicating factor is when she is able to obtain the Ultram her symptoms are markedly improved she is able to function, however she has not followed up with either her primary care physicians or her pain management physicians to continue her pain management regimen I have explained to her that the emergency department cannot then be a substitute for pain management by her outpatient providers per regulations [facility] and multiple other regulators that her pain management must be assumed by outpatient providers, she understands she was given 1 Ultram tablet while she is here and marriage and family social worker will again outlined for her the social service plan and then we will arrange for her discharge home Home stable pending social service evaluation Impression final diffuse whole body arthritic pain acute recurrent history of psoriatic arthritis, history of chronic pain syndrome ED Disposition - Plan for ED Patient: Diagnosis: Psoriatic arthritis Instructions: ED Chronic Pain Referrals: Brant Howard Chi, MD [Primary Care Provider] - Additional Instructions: Follow-up with Adult Protective Services, [facility] marriage and family social worker, agency on aging, [facility]
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
[2019-12-02] MEDS: traMADol 50 MG Tablet 100 MG PO (15:20)
[2019-12-02 15:55] VITALS: RESP 16
== END 2019-12-02 15:56 | disposition home or self-care (01) ==
PROVIDERS: Emergency Provider Emergency Medicine; PCP Family Medicine Geriatric Medicine
DX: L40.50 Arthropathic psoriasis, unspecified (principal); G89.4 Chronic pain syndrome; F17.200 Nicotine dependence, unspecified, uncomplicated; Z86.73 Personal history of transient ischemic attack (TIA), and cerebral infarction without residual deficits
CPT/HCPCS: 99284

== ENCOUNTER 2020-02-05 10:29 | Inpatient (IN) | payer MEDICARE, SELFPAY ==
[2020-02-05] VITALS (20 sets, daily range): BP systolic 80–150; BP diastolic 36–91; PULSE 98–140; RESP 14–30; TEMP 36.3–37.4; O2SAT 96–100; BMI 23.3; BMI 21.9; BMI 22.0
--- NOTE | 2020-02-05 10:45 | EKG12_ITS ---
Test Reason : Blood Pressure : / mmHG Vent. Rate : 124 BPM Atrial Rate : 124 BPM P-R Int : 132 ms QRS Dur : 062 ms QT Int : 342 ms P-R-T Axes : 080 056 065 degrees QTc Int : 491 ms Sinus tachycardia Possible Left atrial enlargement Septal infarct , age undetermined , cannot be excluded Abnormal ECG Confirmed by ANETTE LORENZ, RBOIN ([id number]), video news editor LACIE DOUGLASS ([id number]) on 02/07/2020 2:01:14 PM Referred By: HECTOR Confirmed By:ROBIN CHEEMA MD
--- NOTE | 2020-02-05 10:47 | CT_ITS ---
STUDY: CT CERVICAL SPINE WITHOUT CONTRAST REASON FOR EXAM: Female, 70 years old. FELL LAST NIGHT, HX-ALCOHOL ABUSE, HTN RADIATION DOSAGE (If Supplied By Facility): CTDIvol = ( 14.55 ) mGy, DLP = ( 587.04 ) mGycm TECHNIQUE: High resolution transaxial imaging was performed without contrast material. Sagittal and coronal images were reconstructed. Individualized dose optimization techniques were used for this CT. COMPARISON: None FINDINGS: Normal craniovertebral junction. Normal anterior atlantoaxial articulation. Normal odontoid process. Normal cervical lordosis. Normal vertebral bodies and posterior osseous elements. C2-3: Normal endplates. Normal disc height and morphology. Normal central canal and intervertebral neuroforamina. C3-4: Normal endplates. Normal disc height and morphology. Normal central canal and intervertebral neuroforamina. C4-5: Moderate left facet hypertrophy. Mild broad disc osteophyte complex and bilateral vertebral hypertrophy produces mild spinal stenosis and mild left neural foraminal stenosis. C5-6: Normal endplates. Normal disc height and morphology. Normal central canal and intervertebral neuroforamina. C6-7: Normal endplates. Normal disc height and morphology. Normal central canal and intervertebral neuroforamina. C7-T1: Normal endplates. Normal disc height and morphology. Normal central canal and intervertebral neuroforamina. Normal visualized soft tissue structures. CT/Spine Cervical without Contras IMPRESSION: No acute fracture or subluxation. Electronically Signed: Reynaldo Gill MD at 12:11 EDT Tel , Service support ,
--- NOTE | 2020-02-05 10:47 | CT_ITS ---
STUDY: CT BRAIN WITHOUT CONTRAST REASON FOR EXAM: Female, 70 years old. FELL LAST NIGHT, HX-ALCOHOL ABUSE, HTN RADIATION DOSAGE (If Supplied By Facility): CTDIvol = ( 44.99 ) mGy, DLP = ( 779.24 ) mGycm TECHNIQUE: Transaxial CT imaging of the brain was performed without administration of intravenous contrast material. Individualized dose optimization techniques were used for this CT. COMPARISON: 11/19/2013 FINDINGS: Normal soft tissue structures. Normal calvarium. There is moderate cerebral atrophy with widening of the extra-axial spaces and ventricular dilatation. There are areas of decreased attenuation within the white matter tracts of the supratentorial brain, consistent with microvascular disease changes. Normal basal ganglia and thalami. Normal brainstem. Normal cerebellum. There is no intracranial hemorrhage. There are no findings of an acute ischemic infarction. Normal visualized paranasal sinuses. CT/Brain/Head without Contrast IMPRESSION: Chronic involutional changes of the brain. Electronically Signed: Reynaldo Gill MD at 12:13 EDT Tel , Service support ,
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
--- NOTE | 2020-02-05 10:55 | RAD_ITS ---
STUDY: X-RAY - PELVIS AND LEFT HIP REASON FOR EXAM: Female, 70 years old. FALL, PAIN TECHNIQUE: 3 views of the pelvis and hip. COMPARISON: 12/03/2017 FINDINGS: There is a non-specific bowel gas pattern. Normal visualized soft tissue structures. Normal bilateral iliac wings, sacroiliac joints and visualized sacrum. Normal bilateral superior and inferior pubic rami. Normal pubic symphysis. Normal bilateral ischial tuberosities. Acute impacted fracture of the transcervical femoral neck. Normal acetabulum. Normal hip joint. RAD/HIP, UNI W/ Pelvis 2-3 Views IMPRESSION: Acute impacted fracture the transcervical femoral neck. Electronically Signed: Reynaldo Gill MD at 12:01 EDT Tel , Service support ,
[2020-02-05 11:08] LABS: Hematocrit 37.9 % (37-47); Hemoglobin 12.5 g/dL (12.0-15.0); Mean Corpuscular Hgb 33.4 pg (27.0-32.0); Mean Corpuscular Volume 101.3 fL (81-99); Mean Platelet Vol. 8.3 fl (6.2-12.0); Platelet Count 216 K/mm3 (150-450); RBC Distribution Width CV 16.9 % (11.6-14.6); RBC Distribution Width SD 61.6 fl (35.1-43.9); Red Blood Count 3.74 M/mm3 (4.2-5.4); White Blood Count 17.1 K/mm3 (4.4-11.0)
[2020-02-05] MEDS: 0.9% Normal Saline 1,000 ML 1000 ML IV (11:08)
--- NOTE | 2020-02-05 11:17 | RAD_ITS ---
STUDY: X-RAY CHEST REASON FOR EXAM: Female, 70 years old. FALL, PAIN TECHNIQUE: Single AP portable view of the chest. COMPARISON: 09/03/2018 FINDINGS: The lungs are clear and expanded. Elevated right hemidiaphragm which is unchanged. Normal size heart. Normal mediastinum and miguel angel. Normal visualized pulmonary arteries. Normal visualized aortic arch and descending thoracic aorta. Normal visualized thoracic spine. Normal visualized ribs, clavicles, and shoulders. There is no demonstrated abnormality of the visualized soft tissue structures of the upper abdomen. RAD/Chest 1 View (Portable) IMPRESSION: No active disease. Electronically Signed: Reynaldo Gill MD at 12:00 EDT Tel , Service support ,
[2020-02-05 11:18] LABS: International Normalized Ratio 1.2; Prothrombin Time (Protime)PT. 14.2 SECONDS (11.7-14.9)
[2020-02-05 11:33] LABS: ALB/GLOB Ratio 0.6 RATIO (0.9-2.4); AST(SGOT) 70 U/L (15-37); Alanine Aminotransfer ALT/SGPT 27 U/L (13-56); Albumin, Serum 2.8 g/dL (3.2-5.0); Alkaline Phosphatase 273 U/L (45-117); Anion Gap 8 (5-15); BUN 6 mg/dL (7-18); Calcium,Total 8.2 mg/dL (8.5-10.1); Chloride 99 mmol/L (98-107); EST Glomerular Filtration Rate 104 mL/min (>60); Est Glom Filt Rate - Afr Amer 126 mL/min (>60); Globulin 4.4 g/dL (2.2-4.2); Glucose 150 mg/dL (74-106); Lactic Acid 3.9 mmol/L (0.4-1.9); Lipase 262 U/L (73-393); Potassium 4.2 mmol/L (3.5-5.1); Protein, Total 7.2 g/dL (6.4-8.2); Sodium Level 137 mmol/L (136-145)
[2020-02-05 11:34] LABS: CPK Total, Creatine Kinase 168 U/L (26-192)
[2020-02-05] MEDS: Morphine 4 MG/ML Syringe IV ×3 (12:20→20:17)
[2020-02-05 12:26] LABS: Mucous, Urine 0 SEEN /hpf (<or=2+); Red Blood Cells-Urine 0 SEEN /hpf (0-5)
[2020-02-05 12:35] LABS: Color, Urine Yellow (Yellow); Glucose, Dipstick Normal (Normal); Ketone-Dipstick 50 mg/dl (Negative); Leukocyte Esterase-Dipstick 500 /ul (Negative); Nitrite-Dipstick Positive (Negative); Occult Blood-Urine 25 /ul (Negative); Protein-Dipstick 15 mg/dl (Negative); Specific Gravity, Urine 1.005 (1.002-1.030); Urine Clarity Cloudy (Clear); Urine Urobilinogen 8 mg/dl (Normal)
[2020-02-05 12:42] LABS: Urine Bilirubin Dipstick 1 mg/dL (Negative)
[2020-02-05 12:44] LABS: Bacteria 4+ /hpf (None Seen); Squamous Epithelial Cells - UA 0-5 SEEN /hpf (5-10); White Blood Cells 10-25 SEEN /hpf (0-5)
[2020-02-05 12:53] LABS: Amphetamine Urine VISTA NEGATIVE (<1000 ng/mL); Barbiturate Urine VISTA NEGATIVE (< 200 ng/mL); Benzodiazepine Urine VISTA NEGATIVE (< 200 ng/mL); Cocaine Urine VISTA NEGATIVE (< 300 ng/mL); Ecstacy Urine VISTA NEGATIVE (< 500 ng/mL); Methadone Urine VISTA NEGATIVE (< 300 ng/mL); PCP Urine VISTA NEGATIVE (< 25 ng/mL); THC Urine VISTA NEGATIVE (< 50 ng/mL); Vista UDS pH Range 6
--- NOTE | 2020-02-05 12:58 | HP.PCM_ITS ---
History of Present Illness Date of Admission: 02/05/20 Chief Complaint: mechanical fall The patient is a 70 year old F with an extensive past medical history as outlined. She also has a history of alcohol dependence. She was admitted through the ED on 02/05/2020 after being brought in by the emergency squad. Patient states he lives alone and has not been able to take care of herself very well because of pain from her arthritis. She states that she holds things and so is not able to even move around her house very well. She has been drinking alcohol to medicate herself for the pain. The night before admission, patient states she fell on the floor in her bedroom and could not get herself up off the ground. She denied any lightheadedness or dizziness prior to the fall and says she just felt weak and fell. A friend came to check on her in the morning and found her on the floor and so called the squad. She denies losing consciousness when she fell though she thinks she hit her head. She denied any nausea, vomiting, fever or chills, chest pain, diarrhea vomiting. She did admit to frequent urination and thinks that she has a urine infection. On reviewing the ED, vitals showed temperature of 98 Fahrenheit with blood pressure 134/81, pulse rate of 119 and respiratory rate of 30. She was saturating at 100% on room air. Chemistry showed sodium of 137 potassium 4.2, lactic acid of 3.9 and glucose of 150. Total bilirubin was 1.8 and total CPK was 168. Initial troponin was 0.164. CBC showed WBC of 17.1 with hemoglobin of 12.5 and platelets of 216. CT of the brain showed only chronic involutional changes. UA showed 4+ bacteria with 500 leukocyte esterase and 10-[address] showed no evidence of acute fracture or subluxation. Chest x-ray showed no acute cardiopulmonary process. X-ray of the hip and pelvis showed acute impacted fracture of the left transcervical femoral neck. She has been admitted to be managed for severe sepsis due to UTI, non-STEMI and fracture of the left femoral neck due to mechanical fall. [] Past Medical History Past Medical History (Chronic Problems): Chronic Problems Debility (Chronic) Autoimmune pancreatitis (Chronic) Alcohol dependence (Chronic) Psoriatic arthritis (Chronic) Hepatic steatosis (Chronic) Acute recurrent pancreatitis (Chronic) Abnormal LFTs (Chronic) Alcohol abuse (Chronic) Hypertension (Chronic) Hypothyroidism (Chronic) Anxiety (Chronic) Fibromyalgia (Chronic) Dysphagia (Chronic) Rheumatoid arthritis (Chronic) never confirmed.....RA is negative.....tells me that she has psoriatic arthritis Psoriasis (Chronic) Chronic back pain (Chronic) osteoarthritis Delusional disorder (Chronic) Bipolar disorder (Chronic) Depression with H/o suicidal attempt (Chronic) Allergies nickel [Nickel] Allergy (Verified 12/02/19 13:27) Rash/autoimmune reactions prochlorperazine edisylate [From Compazine] Adverse Reaction (Verified 12/02/19 13:27) disoriented prochlorperazine maleate [From Compazine] Adverse Reaction (Verified 12/02/19 13:27) DISORIENTED CADMIUM Allergy (Uncoded 12/02/19 13:27) Rash AUTOIMMUNE RESPONSE Home Medications: Ambulatory Orders Medication Instructions Recorded NK 02/05/20 Surgical History: tonsillectomy Psychiatric History: Anxiety, Bipolar, Depression, - - Delusional disorder. 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 Paternal History Items: - - Reports that her father from aspiration pneumonia at age 92. And her grandfather from pneumonia at age 32. She also notes that her father had exposure to nickel and had some diseases related but cannot give this information. Denied any history of heart disease, diabetes or cancer. Review of Systems Constitutional: Reports: Malaise, Weakness. Denies: Anorexia, Chills, Fever, Fatigue Eyes: Denies: Blurred vision HEENT: Denies: Head Aches, Sinus Congestion, Sinus Drainage Cardiovascular: Denies: Chest Pain, Palpitations Respiratory: Denies: Cough, Shortness of breath at rest, Sputum production Gastrointestinal: Denies: Abdominal Pain, Nausea, Vomiting Genitourinary: Reports: Frequency, Urgency. Denies: Dysuria, Incontinence, Nocturia Musculoskeletal: Reports: Joint Pain, Joint Tenderness Skin: Denies: Rash, Wounds Neurological: Denies: Numbness, Tingling, Focal weakness Psychiatric: Denies: Anxiety, Depression, Homicidal Ideations, Suicidal Ideations Hematologic/ Lymphatic: Denies: Easy Bruising, Easy Bleeding VTE Information - Inpt Only VTE Present on Admission: No VTE Pharm Prophylaxis ordered?: Yes Patient Problems: Active and Suspected Problems Fracture of femoral neck, left, closed (Acute) Severe sepsis (Acute) UTI (urinary tract infection) (Acute) Elevated troponin (Acute) Abnormal cardiac enzyme level (Acute) Preop cardiovascular exam (Acute) - Physical Exam Vitals/I&O's: Vital Signs Temp Pulse Resp BP Pulse Ox 98.0 F 119 H 30 H 134/81 H 100 02/05/20 10:30 02/05/20 12:15 02/05/20 12:15 02/05/20 12:15 02/05/20 12:15 Oxygen Delivery Method Room Air Weight: 144 lb 13.499 oz Body Mass Index (BMI) 23.3 Finger Stick Blood Glucose 103 General: Alert, Oriented x3, Cooperative, - - patient looks very unkempt HEENT: Atraumatic, PERRLA, EOMI, Normocephalic Oral: Dry Mucosa Neck: Supple, No JVD, Negative Carotid Bruits Lungs: Clear to auscultation, Normal air movement, No rhonchi, No wheeze Cardiovascular: Normal S1, Normal S2, No murmurs, Tachycardic Abdomen: Bowel Sounds Present, Soft, Non Tender, Non-Distended, No Hepato- splenomegaly Extremities: No clubbing, No cyanosis, No edema, Capillary Refill Less than 3 Seconds Skin: No rashes, No breakdown Musculoskeletal: - - LLE has bruising over the left hip, and leg is slightly externally rotated but not shortnened, tender to touch. Lymphatic: No Cervical, Supraclavicular, or Inguinal Adenopathy Neurological: Cranial nerves II-XII grossly intact, Neuro grossly intact, Motor Exam 5/5 strength throughout Psych/Mental Status: Normal Affect, Appropriate, Alert and oriented to time, place, person, mood and affect Laboratory Results 02/05/20 10:53: WBC 17.1 H, RBC 3.74 L, Hgb 12.5, Hct 37.9, MCV 101.3 H, MCH 33.4 H, MCHC 33.0, RDW Std Deviation 61.6 H, RDW Coeff of Jonathan 16.9 H, Plt Count 216, MPV 8.3 02/05/20 10:53: PT 14.2, INR 1.2 02/05/20 10:53: Sodium 137, Potassium 4.2, Chloride 99, Carbon Dioxide 30.0, Anion Gap 8, BUN 6 L, Creatinine 0.60, Estim Creat Clear Calc 47.60, Est GFR (MDRD) Af Amer 126, Est GFR (MDRD) Non-Af 104, BUN/Creatinine Ratio 10.0, Glucose 150 H, Calcium 8.2 L, Total Bilirubin 1.80 H, AST 70 H, ALT 27, Alkaline Phosphatase 273 H, Troponin I 0.164 H, Total Protein 7.2, Albumin 2.8 L, Globulin 4.4 H, Albumin/Globulin Ratio 0.6 L, Lipase 262 02/05/20 10:53: Ethyl Alcohol 8.0 02/05/20 10:53: Total Creatine Kinase 168 02/05/20 10:53: Lactic Acid 3.9 H* 02/05/20 12:00: Urine Color Yellow, Urine Clarity Cloudy, Urine pH 7.0, Ur Specific [place] 1.005, Urine Protein 15 H, Urine Glucose (UA) Normal, Urine Ketones 50 H, Urine Occult Blood 25 H, Urine Nitrite Positive H, Urine Bilirubin 1 H, Urine Urobilinogen 8 H, Ur Leukocyte Esterase 500 H, Urine RBC 0 SEEN, Urine WBC 10-25 SEEN, Ur Squamous Epith Cells 0-5 SEEN, Urine Bacteria 4+, Urine Mucus 0 SEEN 02/05/20 12:00: Urine Opiates Screen NEGATIVE, Urine Methadone Screen NEGATIVE, Ur Barbiturates Screen NEGATIVE, Ur Phencyclidine Scrn NEGATIVE, Ur Amphetamines Screen NEGATIVE, U Methamphetamin-MDMA NEGATIVE, U Benzodiazepines Scrn NEGATIVE, Urine Cocaine Screen NEGATIVE, U Cannabinoids Screen NEGATIVE, Ur Drug Screen Comment Diagnostic Data Brain CT 02/05/20 10:47 IMPRESSION: Chronic involutional changes of the brain. Electronically Signed: Reynaldo Gill MD at 12:13 EDT Tel , Service support , Cervical Spine CT 02/05/20 10:47 IMPRESSION: No acute fracture or subluxation. Electronically Signed: Reynaldo Gill MD at 12:11 EDT Tel , Service support , Hip/Pelvis X-Ray 02/05/20 10:55 IMPRESSION: Acute impacted fracture the transcervical femoral neck. Electronically Signed: Reynaldo Gill MD at 12:01 EDT Tel , Service support , Chest X-Ray 02/05/20 11:17 IMPRESSION: No active disease. Electronically Signed: Reynaldo Gill MD at 12:00 EDT Tel , Service support , Current Medications Ceftriaxone Sodium (Rocephin) 1 gm in 50 mls @ 100 mls/hr IV X1 ONE Stop: 02/05/20 13:21 Assessment/Plan All Active Problems Nausea & vomiting (Acute) Prolonged QT interval (Resolved) Fracture of femoral neck, left, closed (Acute) Severe sepsis (Acute) UTI (urinary tract infection) (Acute) Elevated troponin (Acute) Abnormal cardiac enzyme level (Acute) Preop cardiovascular exam (Acute) Gastroenteritis (Resolved) Hypomagnesemia (Resolved) Alcoholic hepatitis (Acute) Hypokalemia (Resolved) Alcoholic pancreatitis (Acute) 70 y/o admitted via the ED with a complaint of mechanical fall # Severe sepsis due to UTI * SIRS criteria is 3/4 (tachycardia, tachypnea, and elevated wbc) as well as lactic acid of 3.9 * UA showed evidence of UTI with 4+ bacteria * blood and urine culture ordered. * given IV ceftriaxone in the ED * will give IV zosyn * Hydrate with IV fluids per sepsis protocol * Consult critical care. * # UTI: As under severe sepsis #Elevated troponins * initial troponin is 0.164. * Will cycle troponin. Sublingual nitroglycerin PRN. P.o. aspirin 81 mg daily. * Consult cardiology. Patient will need preop cardiacevaluation before surgery. * Order 2D echo. * Give high intensity statin. * Case discussed with Dr. Alonso. He reviewed patient and felt his cardiac enzyme level may be elevated in a type II fashion from supply demand mismatch related to her ongoing sepsis. EKG showed no acute ST changes. A quick look hand-held bedside echogram done by cardiology demonstrated overall preserved left ventricular size, wall motion and systolic function. Therefore from a cardiovascular standpoint she will continue to be monitored and to continue on aspirin and low-dose beta-rené. # Acute fracture of the left hip due to mechanical fall * Left hip x-ray showed acute impacted fracture of the transcervical femoral neck * Orthopedic surgery consulted. * Fall precautions. PT OT consults. * IV morphine as needed for pain and p.o. [place]. * NSQIP score for patient showed a 13.4% risk of serious complication, and 15.3% risk of any complication, and a 1.6% risk of cardiac complications. * patient is high risk for surgery, in light of her severe sepsis due to UTI. * discussed with Dr Marie; if patient improves with treatment, ie fluids and IV antibiotics, ortho will plan for surgery at 1pm on 02/06/2020 unless patient deteriorates. Patient will be high risk for surgery due to the severe sepsis; patient counseled about this. #lactic acidosis: Severe sepsis. Will trend with IV fluid hydration. # History of alchol abuse: will put on alcohol withdrawal protocol with ativan. # DVT prophylaxis: Lovenox CODE STATUS: Full code * Patient counseled extensively about different types of CODE STATUS including full code, DNR CCA and DNR CCA. Patient elects to be full code. * Total [id number] time 17 minutes. total critical care time: 50 mins Inpatient E&M: 44657 Init Hosp L3 Procedures: 04459 Advncd Care Plan 30 Min - [id number]
[2020-02-05] MEDS: 0.9% Normal Saline 1,000 ML 999 ML IV ×3 (13:40→22:25)
[2020-02-05] MEDS: Ceftriaxone 1 GM/50 ML BAG IV (13:40)
[2020-02-05 14:34] LABS: Probe Check PASS; Specimen Processing Control PASS
--- NOTE | 2020-02-05 14:51 | ECHOCS_ITS ---
Reason For Study: Elevated Troponins Procedure This was a 2D Doppler, Color Flow transthoracic echocardiogram. Technically difficult study. Patient was scanned leaning to the right due to discomfort from left hip fracture. Patient was unable to lay supine. The study was technically difficult. Contrast injection was performed. Exam performed portable in ICU/CCU. Left Ventricle Normal LV size. Left ventricular systolic function is normal. The estimated ejection fraction is 70 %. No regional wall motion abnormalities noted. Right Ventricle Normal RV size. Normal systolic function. Atria Normal left atrium. Normal right atrium. No doppler evidence for ASD. Mitral Valve There is no mitral annular calcification. Normal mitral valve. Mild (1+) mitral valve insufficiency. Tricuspid Valve Normal tricuspid valve. Trivial tricuspid valve insufficiency. Unable to estimate RV systolic pressure/pulmonary artery pressure due to technically difficult study. Aortic Valve Trisinus/trileaflet aortic valve. Normal aortic valve. Pulmonic Valve The pulmonic valve is not well visualized. Great Vessels Normal sized aortic root. Pericardium/Pleural No pericardial effusion. Medication Diluted definity 2ml given slow IV push to enhance endocardial definition. MMode/2D Measurements & Calculations LVIDd: 4.4 cm IVSd: 1.2 cm Ao root diam: 2.9 cm LVIDs: 2.7 cm LVPWd: 1.0 cm FS: 38.3 % LAV(MOD-bp): 47.7 ml LA A4 area: 16.6 cm2 RA A4 area: 12.3 cm2 LAV(MOD-bp) Indexed: 28.3 ml/m2 LAV(MOD-sp2): 47.4 ml LAV(MOD-sp4): 38.3 ml Time Measurements MV dec time: 0.15 sec Doppler Measurements & Calculations MV E max cade: 130.3 cm/sec MV V2 max: 133.6 cm/sec MV P1/2t max cade: 134.4 cm/sec MV A max cade: 47.5 cm/sec MV max P.1 mmHg MV P1/2t: 48.3 msec MV E/A: 2.7 MV V2 mean: 61.4 cm/sec MV dec slope: 814.2 cm/sec2 MV mean P.0 mmHg MV V2 VTI: 22.2 cm MVA(P1/2t): 4.6 cm2 Ao V2 max: 122.3 cm/sec LV V1 max: 118.8 cm/sec MR max cade: 489.2 cm/sec Ao max P.0 mmHg LV V1 max P.6 mmHg MR max P.7 mmHg PA V2 max: 78.0 cm/sec Interpretation Summary The study was technically difficult. Contrast injection was performed. Left ventricular systolic function is normal. The estimated ejection fraction is 70 %. Mild (1+) mitral valve insufficiency. Trivial tricuspid valve insufficiency. Unable to estimate RV systolic pressure/pulmonary artery pressure due to technically difficult study. Transmitral diastolic flow velocities suggest diastolic dysfunction (pseudonormal pattern). Ordering Physician: Caridad Humphrey Referring Physician: Brant Howard Chi Performed By: Dashawn Gonzáles RCS
--- NOTE | 2020-02-05 15:13 | CON.PCM_ITS ---
Problem List (1) Abnormal cardiac enzyme level Status: Acute (2) UTI (urinary tract infection) Status: Acute (3) Severe sepsis Status: Acute (4) Fracture of femoral neck, left, closed Status: Acute (5) Preop cardiovascular exam Status: Acute Reason for Consult Date of Consultation: 02/05/20 History of Present Illness: The patient is a 70 year old white female who denies any past cardiovascular history who is referred for preoperative evaluation based upon concerns of an indeterminate troponin I level in the setting of alcohol use, a fall, a hip fracture, and a UTI/urosepsis scenario. She states she has been using alcohol at home to treat her underlying arthritic condition and associated pain. She reportedly fell. She was found by her neighbors after being supine for period of time. She was brought to the hospital for further evaluation. She denies any chest discomfort or difficulty breathing. She has not sensed any abnormal heartbeat/rhythm sensations. She states she has not had any near- syncope or syncope. She has denied orthopnea, PND, and peripheral pitting e tamiko. She does admit to alcohol intake. She admits to longstanding tobacco intake. She was noted to have an indeterminate troponin I level. Her ECG demonstrated sinus rhythm/sinus tachycardia with possible left atrial enlargement and septal [place] pattern of indeterminate age which could not be excluded. Her chest x-ray was reported as no acute cardiopulmonary disease process. She was noted to have an abnormal UA, elevated WBC, and an elevated lactic acid level. Her radiologic findings suggested a left hip fracture. She was subsequently placed in the ICU for further evaluation and care. She underwent COVID-19 testing which was reported as nonreactive/negative. [] Past Medical History Allergies/Adverse Reactions: Allergies nickel [Nickel] Allergy (Verified 12/02/19 13:27) Rash/autoimmune reactions prochlorperazine edisylate [From Compazine] Adverse Reaction (Verified 12/02/19 13:27) disoriented prochlorperazine maleate [From Compazine] Adverse Reaction (Verified 12/02/19 13:27) DISORIENTED CADMIUM Allergy (Uncoded 12/02/19 13:27) Rash AUTOIMMUNE RESPONSE Home Medications: Ambulatory Orders Medication Instructions Recorded NK 02/05/20 Past Medical History (Chronic Problems): Chronic Problems Debility (Chronic) Autoimmune pancreatitis (Chronic) Alcohol dependence (Chronic) Psoriatic arthritis (Chronic) Hepatic steatosis (Chronic) Acute recurrent pancreatitis (Chronic) Abnormal LFTs (Chronic) Alcohol abuse (Chronic) Hypertension (Chronic) Hypothyroidism (Chronic) Anxiety (Chronic) Fibromyalgia (Chronic) Dysphagia (Chronic) Rheumatoid arthritis (Chronic) never confirmed.....RA is negative.....tells me that she has psoriatic arthritis Psoriasis (Chronic) Chronic back pain (Chronic) osteoarthritis Delusional disorder (Chronic) Bipolar disorder (Chronic) Depression with H/o suicidal attempt (Chronic) Surgical History: tonsillectomy Psychiatric History: Anxiety, Bipolar, Depression, - - Delusional disorder. 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 Paternal History Items: - - Reports that her father from aspiration pneumonia at age 92. And her grandfather from pneumonia at age 32. She also notes that her father had exposure to nickel and had some diseases related but cannot give this information. Denied any history of heart disease, diabetes or cancer. Lives: Alone Smoking Status: Current some day smoker Alcohol: Heavy Drugs: None Review of Systems - Review of Systems General: Denies: Fever, Night Sweats, Fatigue Cardiovascular: Denies: Chest Discomfort, Shortness of Breath, Orthopnea, PND, Peripheral Edema, Palpitations, Lightheadedness, Dizziness, Near Syncope, Syncope Respiratory: Denies: Cough, Sputum Production, Hemoptysis Gastrointestinal: Denies: Hematemesis, Hematochezia, Melena Genitourinary: Denies: Dysuria, Hematuria Muscoloskeletal: Reports: Joint Pain Skin: Denies: Rash Subjectve: This is a thin 70-year-old white female who appears to be resting comfortably at the moment in no acute distress. Objective: Vital Signs Temp Pulse Resp BP Pulse Ox 99.4 F H 123 H 16 118/87 H 97 02/05/20 12:59 02/05/20 12:59 02/05/20 12:59 02/05/20 12:59 02/05/20 12:59 Oxygen Delivery Method Room Air Weight: 132 lb 3.2 oz Body Mass Index (BMI) 21.9 Finger Stick Blood Glucose 103 Intake and Output for Last 24 Hours 02/03/20 02/04/20 02/05/20 23:59 23:59 23:59 Intake Total 1000 / 1000 Balance 1000 / 1000 General: Awake, Alert, Oriented x 3, Cooperative, No Acute Distress HEENT: Atraumatic, Normocephalic, PERRL, EOMI, Sclera Non Icteric Neck: Supple, Good ROM, No JVD Lungs: Clear to auscultation Cardiovascular: Regular Rhythm, Normal S1, Normal S2 Vascular: No Carotid Bruits Abdomen: Bowel Sounds Present, Soft, Non Tender Extremities: No edema Neurological: No Focal Motor or Sensory Deficit Psych/Mental Status: Appropriate 02/05/20 10:53: WBC 17.1 H, RBC 3.74 L, Hgb 12.5, Hct 37.9, MCV 101.3 H, MCH 33.4 H, MCHC 33.0, Plt Count 216, MPV 8.3 02/05/20 10:53: PT 14.2, INR 1.2 02/05/20 10:53: Sodium 137, Potassium 4.2, Chloride 99, Carbon Dioxide 30.0, Anion Gap 8, BUN 6 L, Creatinine 0.60, Est GFR (MDRD) Af Amer 126, Est GFR (MDRD) Non-Af 104, BUN/Creatinine Ratio 10.0, Glucose 150 H, Calcium 8.2 L, Total Bilirubin 1.80 H, Troponin I 0.164 H 02/05/20 10:53: Lactic Acid 3.9 H* 02/05/20 12:00: Urine Color Yellow, Urine Clarity Cloudy, Urine pH 7.0, Ur Specific [place] 1.005, Urine Protein 15 H, Urine Glucose (UA) Normal, Urine Ketones 50 H, Urine Occult Blood 25 H, Urine Nitrite Positive H, Urine Bilirubin 1 H, Urine Urobilinogen 8 H, Ur Leukocyte Esterase 500 H, Urine RBC 0 SEEN, Urine WBC 10-25 SEEN Rhythm: Sinus rhythm EKG: As noted above ECHO: Hand-held quick look bedside echocardiogram: Formed in the supine position: Based upon the 2D echocardiographic images obtained there appears to be grossly normal left ventricular size, wall motion, and systolic function. CXR: Preliminary evaluation: No acute cardiopulmonary disease process appreciated: Please see official report Assessment/Plan 1. Abnormal cardiac enzyme level The patient does have an abnormal cardiac enzyme level. She does not present with symptoms considered classic for an acute coronary syndrome. Her cardiac enzyme level may be elevated in a type II fashion from a supply demand mismatch versus being related to her other ongoing medical issue which could be her sepsis syndrome. At the moment she appears without any acute cardiovascular symptoms. She will continue to be monitored. Her cardiac enzymes and ECG will be followed. She will be treated medically with agents such as aspirin, nitrates as needed, and beta-blockers. Depending upon her clinical course she may eventually need additional noninvasive and/or invasive evaluation. 2. UTI/sepsis The patient has been diagnosed with a UTI and a sepsis syndrome based upon her clinical scenario and her objective findings. She is undergoing evaluation care per internal medicine. She has been placed on antibiotic therapy. 3. Left hip fracture She does have a left hip fracture. She will continue evaluation care per credit intern al medicine and orthopedic surgery. 4. Preoperative cardiovascular evaluation The present time the patient does not complain of any acute cardiovascular symptoms. She appears to be hemodynamically stable. Her cardiac enzymes are indeterminant and again it is not clear that this is related to an acute coronary syndrome versus related to a type II event being brought out by noncardiovascular issues such as her sepsis syndrome. Her ECG is demonstrated no acute cardiovascular findings. Her quick look hand-held bedside echocardiogram appeared to demonstrate overall preserved left ventricular size, wall motion, and systolic function. From a cardiovascular standpoint she will continue to be monitored as described above. She will continue medical therapy as described above. Depending upon her clinical course she may need additional cardiovascular evaluation in the future. In the interim she is in need of a hip fracture repair. Thus barring an acute change in her cardiovascular status, etc., it does not appear she requires additional cardiovascular diagnostic studies/intervention prior to proceeding with her orthopedic surgery. The timing of her orthopedic surgery may depend up on her noncardiac issues such as her sepsis syndrome. At the time of her surgery she have continued cardiac monitoring with respect to monitoring her heart rate, blood pressure, and cardiac rhythm. An attempt should be made to avoid significant fluctuations in her vital signs. Also an attempt should be made to avoid excess IV volume overload. Her H&H to be followed as if she were to become anemic she may need additional PRBCs. The patient's case has been discussed and reviewed with Dr. Humphrey. This note was generated using a voice recognition system and there may be incorrect words, spelling or punctuation that were not noted when reviewing the office note prior to saving.
[2020-02-05 15:15] LABS: Reflex Lactate? Y
[2020-02-05 16:02] LABS: Lactic Acid 2.2 mmol/L (0.4-1.9)
--- NOTE | 2020-02-05 16:42 | CASEMGMT ---
Social Work Consult: Discharge Planning Informant: Self-Referral PCP: Dr. Howard. Living Arrangements: Patient lives at home alone in an upstairs apartment with 20-25 steps to enter. Marital/Social History: Single. Own person. DME: Walker. Support/Resources: Patient with history of APS referral and PASSPORT referral. Patient denies any involvement with either service or any community services. Patient reports that Valentin picks up patient food from a food pantry. Mental Health Treatment/History: Patient denies any mental health history. Per chart patient with history of Depression, Anxiety, Bi-polar and suicide attempt. Patient denies any suicidal thoughts/plans/intents. Substance Abuse/Use: Patient denies alcohol abuse. Patient does states to have taken a half of a shot when laying on the floor due to the pain. Patient states to have taken a shot of vodka cut vodka, only 42 proof. Patient again denies any history of alcohol abuse/use. Patient noted to have history of alcohol abuse on chart. Met with patient in room. Introduced self and social service liaison role. Patient remembering this social service liaison from prior interactions. Patient reports to have had a fall and to have been on the floor for the past few days until patient friend, Valentin Navas found patient. Patient state to fall often at home. Patient states when patient was on the floor to have been kept company by my mice. Patient state I can't get rid of them when speaking about the mice. Patient states to have be unable to clean home and that stuff is everywhere. Patient state that when patient friend found patient on the floor I didn't want to come to the hospital. Patient state now to be glad that I did. Patient denies having a medical alert system. This social service liaison broached topic of correction placement for patient after medically cleared. Patient putting fingers in ears and states I don't want to think about it. This social service liaison voicing understanding and acknowledging with patient that patient has had a long past few days. Patient is open to continued social service liaison support and aware that social work will continue to follow for discharge planning with probable recommendation for correction placement. Active support and listening provided. Social Work to continue to follow. Juliano BEAR, KIM
[2020-02-05] MEDS: 0.9% Saline Lock 10 ML Syringe IV (16:59)
[2020-02-05] MEDS: LORazepam 1 MG Tablet 0.5 MG PO (18:11)
[2020-02-06] VITALS (33 sets, daily range): BP systolic 100–158; BP diastolic 40–96; PULSE 78–114; RESP 14–24; TEMP 36.1–37.9; O2SAT 91–100; BMI 22.1
[2020-02-06] MEDS: LORazepam 1 MG Tablet 0.5 MG PO ×5 (01:44→22:31)
[2020-02-06 04:42] LABS: Absolute Neutrophil Count 8.9 X10^3/uL (2.0-7.7); Basophil# 0.04 X10^3/uL; Basophil% 0.4 % (0-1); Eosinophil# 0.14 X10^3/uL; Eosinophils% 1.3 % (0-5); Hematocrit 30.4 % (37-47); Hemoglobin 9.7 g/dL (12.0-15.0); Lymphocyte % 6.7 % (19-41); Mean Corp Hgb Conc 31.9 g/dL (32-36); Mean Corpuscular Hgb 33.3 pg (27.0-32.0); Mean Corpuscular Volume 104.5 fL (81-99); Mean Platelet Vol. 8.8 fl (6.2-12.0); Monocyte# 0.56 X10^3/uL; Monocyte% 5.4 % (0-10); NRBC Flagged by Analyzer 0 % (0-5); Neutrophil # 8.88 X10^3/uL (2.7-7.7); Neutrophil % 85.5 % (47-70); POSITIVE MORPHOLOGY YES; Platelet Count 152 K/mm3 (150-450); RBC Distribution Width CV 17.3 % (11.6-14.6); RBC Distribution Width SD 65.4 fl (35.1-43.9); Red Blood Count 2.91 M/mm3 (4.2-5.4); White Blood Count 10.4 K/mm3 (4.4-11.0)
[2020-02-06 04:49] LABS: Differential Indicated SCAN CRITERIA MET
[2020-02-06 05:06] LABS: Anion Gap 3 (5-15); BUN 9 mg/dL (7-18); BUN/Creat Ratio 21.9 RATIO (10-20); Calcium,Total 7.3 mg/dL (8.5-10.1); Chloride 110 mmol/L (98-107); Cholesterol 143 mg/dL (200); Creatinine, Serum 0.41 mg/dL (0.55-1.02); EST Glomerular Filtration Rate 162 mL/min (>60); Est Glom Filt Rate - Afr Amer 196 mL/min (>60); Estimated Creatinine Clearance 45.76 ml/min; Glucose 107 mg/dL (74-106); High Density Lipoprotein 46 mg/dL; Potassium 3.7 mmol/L (3.5-5.1); Sodium Level 142 mmol/L (136-145); Triglycerides 113 mg/dL; Very Low Density Lipoprotein 23 mg/dL (5-40)
[2020-02-06 05:07] LABS: Differential Comment SCANNED
[2020-02-06 05:09] LABS: Anisocytosis 1+; Macrocytosis 1+
[2020-02-06 05:12] LABS: Hypochromasia RARE
--- NOTE | 2020-02-06 05:55 | EKG12_ITS ---
Test Reason : AM EKG Blood Pressure : / mmHG Vent. Rate : 111 BPM Atrial Rate : 111 BPM P-R Int : 148 ms QRS Dur : 058 ms QT Int : 378 ms P-R-T Axes : 064 025 020 degrees QTc Int : 514 ms Sinus tachycardia Low voltage QRS (Limb Leads) Confirmed by ANETTE LORENZ, ROBIN ([id number]), news videotape editor LACIE DOUGLASS ([id number]) on 02/10/2020 11:40:20 AM Referred By: GEMMA Confirmed By:ROBIN CHEEMA MD
--- NOTE | 2020-02-06 06:09 | PCM.CON.CC ---
Reason for Consult Date of Consultation: 02/06/20 Reason for Consultation: Severe sepsis History of Present Illness: The patient is a 70-year-old female, with a history as outlined below, who presented to the emergency department on February 04 after being found on the floor by a family friend. The patient had apparently fell the day prior and was unable to get up. The patient is a relatively poor historian. She has a history of alcoholism and drinks vodka daily. In addition, she reports that she smokes on average 1 pack of cigarettes per day. She denies any hematuria or dysuria. She is currently without complaints of shortness of breath. On presentation to the emergency department, the patient was noted to be afebrile but was hypertensive. She was hemodynamically stable and maintaining appropriate oxygen saturations on room air. Initial laboratory evaluation revealed an elevated white blood cell count to 17,000. Coagulation profile was within normal limits. Chemistry profile was unremarkable. Initial lactate was elevated at 3.9. Total bili was increased to 1.8 with an elevated AST of 70. Troponin was elevated at 0.164. Urinalysis was positive for nitrites and leukocyte esterase. 4+ urine bacteria was noted. Toxicology screen was negative. Alcohol level was only noted to be 8.0. Coronavirus PCR was negative. Head CT revealed chronic involutional changes of the brain. CT C-spine was unremarkable. Hip/pelvis plain film revealed an acute impacted fracture involving the transcervical femoral neck. Both cardiology and orthopedic surgery were consulted. The patient was placed on antimicrobials and admitted to the medical intensive care unit for management of her severe sepsis and femoral neck fracture. Overnight, the patient was volume resuscitated and, as of this morning, remains hemodynamically stable on room air. Cardiology did feel that the patient's troponin leak was secondary to demand ischemia in the setting of severe sepsis. Past Medical History Past Medical History (Chronic Problems): Chronic Problems Debility (Chronic) Autoimmune pancreatitis (Chronic) Alcohol dependence (Chronic) Psoriatic arthritis (Chronic) Hepatic steatosis (Chronic) Acute recurrent pancreatitis (Chronic) Abnormal LFTs (Chronic) Alcohol abuse (Chronic) Hypertension (Chronic) Hypothyroidism (Chronic) Anxiety (Chronic) Fibromyalgia (Chronic) Dysphagia (Chronic) Rheumatoid arthritis (Chronic) never confirmed.....RA is negative.....tells me that she has psoriatic arthritis Psoriasis (Chronic) Chronic back pain (Chronic) osteoarthritis Delusional disorder (Chronic) Bipolar disorder (Chronic) Depression with H/o suicidal attempt (Chronic) Allergies nickel [Nickel] Allergy (Verified 12/02/19 13:27) Rash/autoimmune reactions prochlorperazine edisylate [From Compazine] Adverse Reaction (Verified 12/02/19 13:27) disoriented prochlorperazine maleate [From Compazine] Adverse Reaction (Verified 12/02/19 13:27) DISORIENTED CADMIUM Allergy (Uncoded 12/02/19 13:27) Rash AUTOIMMUNE RESPONSE Home Medications: Ambulatory Orders Medication Instructions Recorded NK 02/05/20 Surgical History: tonsillectomy Psychiatric History: Anxiety, Bipolar, Depression, - - Delusional disorder. 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 Paternal History Items: - - Reports that her father from aspiration pneumonia at age 92. And her grandfather from pneumonia at age 32. She also notes that her father had exposure to nickel and had some diseases related but cannot give this information. Denied any history of heart disease, diabetes or cancer. Review of Systems Constitutional: Denies: Chills, Fever Eyes: Denies: Blurred vision, Double vision HEENT: Denies: Head Aches, Sinus Congestion, Sinus Drainage Cardiovascular: Denies: Chest Pain, Palpitations Respiratory: Denies: Cough, Shortness of breath at rest, Sputum production Gastrointestinal: Denies: Abdominal Pain, Nausea, Vomiting Genitourinary: Denies: Dysuria Musculoskeletal: Reports: Joint Pain Skin: Denies: Rash, Wounds Neurological: Denies: Numbness, Tingling, Focal weakness Psychiatric: Denies: Anxiety, Depression, Homicidal Ideations, Suicidal Ideations Hematologic/ Lymphatic: Reports: Anemia Patient Problems: Active and Suspected Problems Fracture of femoral neck, left, closed (Acute) Severe sepsis (Acute) UTI (urinary tract infection) (Acute) Elevated troponin (Acute) Abnormal cardiac enzyme level (Acute) Preop cardiovascular exam (Acute) Objective: The patient's most recent lab work, culture data and imaging studies have all been personally reviewed. Coronavirus PCR was negative on February 04. Blood and urine cultures are pending. - Physical Exam Vitals/I&O's: Vital Signs Temp Pulse Resp BP Pulse Ox 98.7 F 113 H 15 133/51 H 91 02/06/20 04:00 02/06/20 05:00 02/06/20 05:00 02/06/20 05:00 02/06/20 05:00 Oxygen Delivery Method Room Air Weight: 132 lb 11.492 oz Body Mass Index (BMI) 21.9 Finger Stick Blood Glucose 103 Intake and Output for Last 24 Hours 02/04/20 02/05/20 02/06/20 23:59 23:59 23:59 Intake Total 4674.75 / 4674.75 151.5 / 151.5 Output Total 446 / 446 325 / 325 Balance 4228.75 / 4228.75 -173.5 / -173.5 General: Alert, No apparent distress, - - Somewhat slow to respond to questioning. HEENT: Atraumatic, Normocephalic Oral: Dry Mucosa Neck: Supple, No Nodes, Trachea Midline Lungs: No rhonchi, No wheeze, No rales, Diminished Cardiovascular: Normal S1, Normal S2, Tachycardic Abdomen: Bowel Sounds Present, Soft, Non Tender Extremities: No clubbing, No cyanosis, No edema Skin: No breakdown Musculoskeletal: - - Ecchymoses over left hip Lymphatic: No Cervical, Supraclavicular, or Inguinal Adenopathy Neurological: Cranial nerves II-XII grossly intact, Neuro grossly intact Psych/Mental Status: Flat Affect Labs (Last 48 Hours) 02/05/20 02/05/20 02/05/20 10:53 10:53 10:53 WBC 17.1 H RBC 3.74 L Hgb 12.5 Hct 37.9 MCV 101.3 H MCH 33.4 H MCHC 33.0 RDW Std Deviation 61.6 H RDW Coeff of Jonathan 16.9 H Plt Count 216 MPV 8.3 Immature Gran % (Auto) Neut % (Auto) Lymph % (Auto) [place] % (Auto) Eos % (Auto) Baso % (Auto) Absolute Neuts (auto) Absolute Lymphs (auto) Nucleated RBC % Differential Comment Hypochromasia Anisocytosis Macrocytosis PT 14.2 INR 1.2 Sodium 137 Potassium 4.2 Chloride 99 Carbon Dioxide 30.0 Anion Gap 8 BUN 6 L Creatinine 0.60 Estim Creat Clear Calc 47.60 Est GFR (MDRD) Af Amer 126 Est GFR (MDRD) Non-Af 104 BUN/Creatinine Ratio 10.0 Glucose 150 H Lactic Acid Calcium 8.2 L Total Bilirubin 1.80 H AST 70 H ALT 27 Alkaline Phosphatase 273 H Total Creatine Kinase Troponin I 0.164 H Total Protein 7.2 Albumin 2.8 L Globulin 4.4 H Albumin/Globulin Ratio 0.6 L Triglycerides Cholesterol LDL Cholesterol VLDL Cholesterol HDL Cholesterol Lipase 262 Urine Color Urine Clarity Urine pH Ur Specific [place] Urine Protein Urine Glucose (UA) Urine Ketones Urine Occult Blood Urine Nitrite Urine Bilirubin Urine Urobilinogen Ur Leukocyte Esterase Urine RBC Urine WBC Ur Squamous Epith Cells Urine Bacteria Urine Mucus Urine Opiates Screen Urine Methadone Screen Ur Barbiturates Screen Ur Phencyclidine Scrn Ur Amphetamines Screen U Methamphetamin-MDMA U Benzodiazepines Scrn Urine Cocaine Screen U Cannabinoids Screen Ur Drug Screen Comment Ethyl Alcohol COVID-19 (MELISA) 02/05/20 02/05/20 02/05/20 10:53 10:53 10:53 WBC RBC Hgb Hct MCV MCH MCHC RDW Std Deviation RDW Coeff of Jonathan Plt Count MPV Immature Gran % (Auto) Neut % (Auto) Lymph % (Auto) [place] % (Auto) Eos % (Auto) Baso % (Auto) Absolute Neuts (auto) Absolute Lymphs (auto) Nucleated RBC % Differential Comment Hypochromasia Anisocytosis Macrocytosis PT INR Sodium Potassium Chloride Carbon Dioxide Anion Gap BUN Creatinine Estim Creat Clear Calc Est GFR (MDRD) Af Amer Est GFR (MDRD) Non-Af BUN/Creatinine Ratio Glucose Lactic Acid 3.9 H* Calcium Total Bilirubin AST ALT Alkaline Phosphatase Total Creatine Kinase 168 Troponin I Total Protein Albumin Globulin Albumin/Globulin Ratio Triglycerides Cholesterol LDL Cholesterol VLDL Cholesterol HDL Cholesterol Lipase Urine Color Urine Clarity Urine pH Ur Specific [place] Urine Protein Urine Glucose (UA) Urine Ketones Urine Occult Blood Urine Nitrite Urine Bilirubin Urine Urobilinogen Ur Leukocyte Esterase Urine RBC Urine WBC Ur Squamous Epith Cells Urine Bacteria Urine Mucus Urine Opiates Screen Urine Methadone Screen Ur Barbiturates Screen Ur Phencyclidine Scrn Ur Amphetamines Screen U Methamphetamin-MDMA U Benzodiazepines Scrn Urine Cocaine Screen U Cannabinoids Screen Ur Drug Screen Comment Ethyl Alcohol 8.0 COVID-19 (MELISA) 02/05/20 02/05/20 02/05/20 12:00 12:00 13:29 WBC RBC Hgb Hct MCV MCH MCHC RDW Std Deviation RDW Coeff of Jonathan Plt Count MPV Immature Gran % (Auto) Neut % (Auto) Lymph % (Auto) [place] % (Auto) Eos % (Auto) Baso % (Auto) Absolute Neuts (auto) Absolute Lymphs (auto) Nucleated RBC % Differential Comment Hypochromasia Anisocytosis Macrocytosis PT INR Sodium Potassium Chloride Carbon Dioxide Anion Gap BUN Creatinine Estim Creat Clear Calc Est GFR (MDRD) Af Amer Est GFR (MDRD) Non-Af BUN/Creatinine Ratio Glucose Lactic Acid Calcium Total Bilirubin AST ALT Alkaline Phosphatase Total Creatine Kinase Troponin I Total Protein Albumin Globulin Albumin/Globulin Ratio Triglycerides Cholesterol LDL Cholesterol VLDL Cholesterol HDL Cholesterol Lipase Urine Color Yellow Urine Clarity Cloudy Urine pH 7.0 Ur Specific [place] 1.005 Urine Protein 15 H Urine Glucose (UA) Normal Urine Ketones 50 H Urine Occult Blood 25 H Urine Nitrite Positive H Urine Bilirubin 1 H Urine Urobilinogen 8 H Ur Leukocyte Esterase 500 H Urine RBC 0 SEEN Urine WBC 10-25 SEEN Ur Squamous Epith Cells 0-5 SEEN Urine Bacteria 4+ Urine Mucus 0 SEEN Urine Opiates Screen NEGATIVE Urine Methadone Screen NEGATIVE Ur Barbiturates Screen NEGATIVE Ur Phencyclidine Scrn NEGATIVE Ur Amphetamines Screen NEGATIVE U Methamphetamin-MDMA NEGATIVE U Benzodiazepines Scrn NEGATIVE Urine Cocaine Screen NEGATIVE U Cannabinoids Screen NEGATIVE Ur Drug Screen Comment Ethyl Alcohol COVID-19 (MELISA) Negative 02/05/20 02/05/20 02/05/20 15:20 15:20 17:50 WBC RBC Hgb Hct MCV MCH MCHC RDW Std Deviation RDW Coeff of Jonathan Plt Count MPV Immature Gran % (Auto) Neut % (Auto) Lymph % (Auto) [place] % (Auto) Eos % (Auto) Baso % (Auto) Absolute Neuts (auto) Absolute Lymphs (auto) Nucleated RBC % Differential Comment Hypochromasia Anisocytosis Macrocytosis PT INR Sodium Potassium Chloride Carbon Dioxide Anion Gap BUN Creatinine Estim Creat Clear Calc Est GFR (MDRD) Af Amer Est GFR (MDRD) Non-Af BUN/Creatinine Ratio Glucose Lactic Acid 2.2 H* Calcium Total Bilirubin AST ALT Alkaline Phosphatase Total Creatine Kinase Troponin I 0.155 H 0.138 H Total Protein Albumin Globulin Albumin/Globulin Ratio Triglycerides Cholesterol LDL Cholesterol VLDL Cholesterol HDL Cholesterol Lipase Urine Color Urine Clarity Urine pH Ur Specific [place] Urine Protein Urine Glucose (UA) Urine Ketones Urine Occult Blood Urine Nitrite Urine Bilirubin Urine Urobilinogen Ur Leukocyte Esterase Urine RBC Urine WBC Ur Squamous Epith Cells Urine Bacteria Urine Mucus Urine Opiates Screen Urine Methadone Screen Ur Barbiturates Screen Ur Phencyclidine Scrn Ur Amphetamines Screen U Methamphetamin-MDMA U Benzodiazepines Scrn Urine Cocaine Screen U Cannabinoids Screen Ur Drug Screen Comment Ethyl Alcohol COVID-19 (MELISA) 02/06/20 02/06/20 04:30 04:30 WBC 10.4 RBC 2.91 L Hgb 9.7 L Hct 30.4 L MCV 104.5 H MCH 33.3 H MCHC 31.9 L RDW Std Deviation 65.4 H RDW Coeff of Jonathan 17.3 H Plt Count 152 MPV 8.8 Immature Gran % (Auto) 0.700 Neut % (Auto) 85.5 H Lymph % (Auto) 6.7 L [place] % (Auto) 5.4 Eos % (Auto) 1.3 Baso % (Auto) 0.4 Absolute Neuts (auto) 8.9 H Absolute Lymphs (auto) 0.70 L Nucleated RBC % 0 Differential Comment SCANNED Hypochromasia RARE Anisocytosis 1+ Macrocytosis 1+ PT INR Sodium 142 Potassium 3.7 Chloride 110 H Carbon Dioxide 29.0 Anion Gap 3 L BUN 9 Creatinine 0.41 L Estim Creat Clear Calc 45.76 Est GFR (MDRD) Af Amer 196 Est GFR (MDRD) Non-Af 162 BUN/Creatinine Ratio 21.9 H Glucose 107 H Lactic Acid Calcium 7.3 L Total Bilirubin AST ALT Alkaline Phosphatase Total Creatine Kinase Troponin I Total Protein Albumin Globulin Albumin/Globulin Ratio Triglycerides 113 Cholesterol 143 LDL Cholesterol 74 VLDL Cholesterol 23 HDL Cholesterol 46 Lipase Urine Color Urine Clarity Urine pH Ur Specific [place] Urine Protein Urine Glucose (UA) Urine Ketones Urine Occult Blood Urine Nitrite Urine Bilirubin Urine Urobilinogen Ur Leukocyte Esterase Urine RBC Urine WBC Ur Squamous Epith Cells Urine Bacteria Urine Mucus Urine Opiates Screen Urine Methadone Screen Ur Barbiturates Screen Ur Phencyclidine Scrn Ur Amphetamines Screen U Methamphetamin-MDMA U Benzodiazepines Scrn Urine Cocaine Screen U Cannabinoids Screen Ur Drug Screen Comment Ethyl Alcohol COVID-19 (MELISA) Clinical Impression(s) from Imaging Studies Brain CT 02/05/20 10:47 IMPRESSION: Chronic involutional changes of the brain. Electronically Signed: Reynaldo Gill MD at 12:13 EDT Tel , Service support , Cervical Spine CT 02/05/20 10:47 IMPRESSION: No acute fracture or subluxation. Electronically Signed: Reynaldo Gill MD at 12:11 EDT Tel , Service support , Hip/Pelvis X-Ray 02/05/20 10:55 IMPRESSION: Acute impacted fracture the transcervical femoral neck. Electronically Signed: Reynaldo Gill MD at 12:01 EDT Tel , Service support , Chest X-Ray 02/05/20 11:17 IMPRESSION: No active disease. Electronically Signed: Reynaldo Gill MD at 12:00 EDT Tel , Service support , Current Medications Acetaminophen (Tylenol) 650 mg PO Q6H PRN PRN PRN Reason: Pain Score 1-10/Temp > 100.7 F Aspirin (Ecotrin) 81 mg PO DAILY@0800 [facility] Last Admin: 02/05/20 16:54 Dose: Not Given Documented by: Sodium Chloride 68.4 ml/Ropivacaine 200 mg/Epinephrine HCl 0.6 mg/Morphine Sulfate 5 mg/Ketorolac Tromethamine 30 mg 0 ml OPERA.SITE X1 ONE Stop: 02/06/20 13:01 Dicyclomine HCl (Bentyl) 20 mg PO Q6H PRN PRN PRN Reason: abdominal discomfort Enoxaparin Sodium (Lovenox) 40 mg SC DAILY JAYLON Folic Acid (Folic Acid) 1 mg PO DAILY@0800 [facility] Gabapentin (Neurontin) 300 mg PO Q8H PRN PRN PRN Reason: moderate to severe anxiety Hydroxyzine Pamoate (Vistaril Pamoate Capsule) 50 mg PO Q4H PRN PRN PRN Reason: mild anxiety Cefepime HCl 2 gm/ Sodium (Chloride) 100 mls @ 200 mls/hr IV Q8 JAYLON Last Infusion: 02/06/20 05:53 Dose: Infused Documented by: Sodium Chloride () 250 mls @ 15 mls/hr IV .[id number] PRN PRN Reason: Saline Flush Last Infusion: 02/06/20 02:18 Dose: 15 mls/hr Documented by: Sodium Chloride () 250 mls @ 15 mls/hr IV .[id number] PRN PRN Reason: Additional IVPB Infusion Tranexamic Acid 1,000 mg/ (Sodium Chloride) 110 mls @ 660 mls/hr IV X1 ONE Stop: 02/06/20 13:09 Tranexamic Acid 1,000 mg/ (Sodium Chloride) 110 mls @ 660 mls/hr IV X1 ONE Stop: 02/06/20 13:09 Cefazolin Sodium () 1 gm in 50 mls @ 100 mls/hr IV SEND TO OR W/PATIENT ONE Stop: 02/06/20 13:29 Loperamide HCl (Imodium) 2 mg PO Q4H PRN PRN PRN Reason: LOOSE STOOLS Lorazepam (Ativan) 2 mg PO Q2H PRN PRN; Protocol PRN Reason: CIWA score > 8 but <15 Lorazepam (Ativan) 2 mg PO UD PRN; Protocol PRN Reason: CIWA score >/=15. Lorazepam (Ativan) 2 mg IV Q2H PRN PRN; Protocol PRN Reason: CIWA score > 8 but <15 Lorazepam (Ativan) 2 mg IV UD PRN; Protocol PRN Reason: CIWA score >/=15. Lorazepam (Ativan) 2 mg PO Q4H [facility]; Taper Stop: 02/10/20 00:59 Last Admin: 02/06/20 05:05 Dose: 2 mg Documented by: Metoprolol Tartrate (Lopressor (Beta Terry)) 12.5 mg PO BID [facility] Last Admin: 02/05/20 22:15 Dose: Not Given Documented by: Morphine Sulfate () 4 mg IV Q3H PRN PRN PRN Reason: Pain Score 6-10/10 Last Admin: 02/05/20 20:17 Dose: 4 mg Documented by: Multivitamins/Minerals (Multivitamin With Minerals (Bkc)) [facility] Nitroglycerin (Nitrostat) 0.4 mg SUBLINGUAL Q5M PRN PRN Reason: CARDIAC/CHEST PAIN Ondansetron HCl (Zofran) 4 mg IV Q8H PRN PRN PRN Reason: NAUSEA/VOMITING Ondansetron HCl (Zofran) 8 mg PO Q8H PRN PRN PRN Reason: NAUSEA Oxycodone HCl (Oxyir) 5 mg PO Q4H PRN PRN PRN Reason: Pain Score 4-5/10 Sodium Chloride () 10 - 40 ml IV UD PRN PRN Reason: SALINE FLUSH Last Admin: 02/05/20 16:59 Dose: 10 ml Documented by: Thiamine HCl (Vitamin B1) 100 mg PO DAILYCM JAYLON Trazodone HCl (Desyrel) 100 mg PO QHS PRN PRN Reason: INSOMNIA Assessment/Plan Active and Suspected Problems Fracture of femoral neck, left, closed (Acute) Severe sepsis (Acute) UTI (urinary tract infection) (Acute) Elevated troponin (Acute) Abnormal cardiac enzyme level (Acute) Preop cardiovascular exam (Acute) RECOMMENDATIONS: 1. Continue antimicrobials, pending finalized infectious work-up. 2. Gentle IV fluid hydration, while the patient remains n.p.o. 3. Continue thiamine and folate. 4. Monitor for signs/symptoms of alcohol withdrawal. 5. Start nicotine replacement therapy. 6. Start perioperative bronchodilator therapy. 7. Encourage incentive spirometer use while in bed and mobilize patient as tolerated. IMPRESSIONS: 1. Severe sepsis Most likely secondary to urinary tract source of infection. The patient has been adequately volume resuscitated and remains hemodynamically stable. Agree with continuing empiric antimicrobials, pending infectious work-up. 2. Elevated troponin Likely secondary to demand ischemia in the setting of #1. Cardiology is currently following. Echocardiogram is pending. 3. Acute left hip fracture status post fall Orthopedic surgery is following and plans for surgical intervention. 4. History of bipolar disorder/self-reported rheumatoid and psoriatic arthritis/history of alcohol and tobacco dependency Complicates care, management, recovery and prognosis. Continue thiamine and folate as noted above. Continue to monitor for any signs of alcohol withdrawal. Start nicotine replacement therapy while the patient is admitted to the hospital. The patient is currently maintaining appropriate oxygen saturations on room air. This note was generated with [employer] software. It may contain incorrect words, spelling, and punctuation that were not noted in checking the note before signing. Inpatient E&M: 49180 Init Hosp L3
--- NOTE | 2020-02-06 07:23 | PN_ITS ---
Patient Problems: Active and Suspected Problems Fracture of femoral neck, left, closed (Acute) Severe sepsis (Acute) UTI (urinary tract infection) (Acute) Elevated troponin (Acute) Abnormal cardiac enzyme level (Acute) Preop cardiovascular exam (Acute) Subjective: Patient seen and examined. She pain being poorly controlled. Tachycardia and tachypnea improved overnight but this morning she was tachycardic again with heart rate around 111. This is likely due to her severe pain. Review of systems otherwise negative. White cell count trended down to 10. she had a mild fever which peaked at 100.2 Fahrenheit. Lactic acid is also trended down. Vitals/I&O's: Vital Signs Temp Pulse Resp BP Pulse Ox 98.7 F 100 16 100/56 L 97 02/06/20 04:00 02/06/20 06:00 02/06/20 06:00 02/06/20 06:00 02/06/20 06:00 Oxygen Delivery Method Room Air Weight: 132 lb 11.492 oz Body Mass Index (BMI) 21.9 Finger Stick Blood Glucose 103 Intake and Output for Last 24 Hours 02/04/20 02/05/20 02/06/20 23:59 23:59 23:59 Intake Total 4674.75 / 4674.75 151.5 / 151.5 Output Total 446 / 446 325 / 325 Balance 4228.75 / 4228.75 -173.5 / -173.5 General: Alert, Oriented x3, Cooperative, HEENT: Atraumatic, PERRLA, EOMI, Normocephalic Oral: Dry Mucosa Neck: Supple, No JVD, Negative Carotid Bruits Lungs: Clear to auscultation, Normal air movement, No rhonchi, No wheeze Cardiovascular: Normal S1, Normal S2, No murmurs, Tachycardic Abdomen: Bowel Sounds Present, Soft, Non Tender, Non-Distended, No Hepato- splenomegaly Extremities: No clubbing, No cyanosis, No edema, Capillary Refill Less than 3 Seconds Skin: No rashes, No breakdown Musculoskeletal: - - LLE has bruising over the left hip, and leg is slightly externally rotated but not shortened, tender to touch. Lymphatic: No Cervical, Supraclavicular, or Inguinal Adenopathy Neurological: Cranial nerves II-XII grossly intact, Neuro grossly intact, Motor Exam 5/5 strength throughout Psych/Mental Status: Normal Affect, Appropriate, Alert and oriented to time, place, person, mood and affect Laboratory Results 02/05/20 10:53: WBC 17.1 H, RBC 3.74 L, Hgb 12.5, Hct 37.9, MCV 101.3 H, MCH 33.4 H, MCHC 33.0, RDW Std Deviation 61.6 H, RDW Coeff of Jonathan 16.9 H, Plt Count 216, MPV 8.3 02/05/20 10:53: PT 14.2, INR 1.2 02/05/20 10:53: Sodium 137, Potassium 4.2, Chloride 99, Carbon Dioxide 30.0, Anion Gap 8, BUN 6 L, Creatinine 0.60, Estim Creat Clear Calc 47.60, Est GFR (MDRD) Af Amer 126, Est GFR (MDRD) Non-Af 104, BUN/Creatinine Ratio 10.0, Glucose 150 H, Calcium 8.2 L, Total Bilirubin 1.80 H, AST 70 H, ALT 27, Alkaline Phosphatase 273 H, Troponin I 0.164 H, Total Protein 7.2, Albumin 2.8 L, Globulin 4.4 H, Albumin/Globulin Ratio 0.6 L, Lipase 262 02/05/20 10:53: Ethyl Alcohol 8.0 02/05/20 10:53: Total Creatine Kinase 168 02/05/20 10:53: Lactic Acid 3.9 H* 02/05/20 12:00: Urine Color Yellow, Urine Clarity Cloudy, Urine pH 7.0, Ur Specific [place] 1.005, Urine Protein 15 H, Urine Glucose (UA) Normal, Urine Ketones 50 H, Urine Occult Blood 25 H, Urine Nitrite Positive H, Urine Bilirubin 1 H, Urine Urobilinogen 8 H, Ur Leukocyte Esterase 500 H, Urine RBC 0 SEEN, Urine WBC 10-25 SEEN, Ur Squamous Epith Cells 0-5 SEEN, Urine Bacteria 4+, Urine Mucus 0 SEEN 02/05/20 12:00: Urine Opiates Screen NEGATIVE, Urine Methadone Screen NEGATIVE, Ur Barbiturates Screen NEGATIVE, Ur Phencyclidine Scrn NEGATIVE, Ur Amphetamines Screen NEGATIVE, U Methamphetamin-MDMA NEGATIVE, U Benzodiazepines Scrn NEGATIVE, Urine Cocaine Screen NEGATIVE, U Cannabinoids Screen NEGATIVE, Ur Drug Screen Comment 02/05/20 13:29: COVID-19 (MELISA) Negative 02/05/20 15:20: Troponin I 0.155 H 02/05/20 15:20: Lactic Acid 2.2 H* 02/05/20 17:50: Troponin I 0.138 H 02/06/20 04:30: WBC 10.4, RBC 2.91 L, Hgb 9.7 L, Hct 30.4 L, MCV 104.5 H, MCH 33.3 H, MCHC 31.9 L, RDW Std Deviation 65.4 H, RDW Coeff of Jonathan 17.3 H, Plt Count 152, MPV 8.8, Immature Gran % (Auto) 0.700, Neut % (Auto) 85.5 H, Lymph % (Auto) 6.7 L, [place] % (Auto) 5.4, Eos % (Auto) 1.3, Baso % (Auto) 0.4, Absolute Neuts (auto) 8.9 H, Absolute Lymphs (auto) 0.70 L, Nucleated RBC % 0, Differential Comment SCANNED, Hypochromasia RARE, Anisocytosis 1+, Macrocytosis 1+ 02/06/20 04:30: Sodium 142, Potassium 3.7, Chloride 110 H, Carbon Dioxide 29.0, Anion Gap 3 L, BUN 9, Creatinine 0.41 L, Estim Creat Clear Calc 45.76, Est GFR (MDRD) Af Amer 196, Est GFR (MDRD) Non-Af 162, BUN/Creatinine Ratio 21.9 H, Glucose 107 H, Calcium 7.3 L, Triglycerides 113, Cholesterol 143, LDL Cholesterol 74, VLDL Cholesterol 23, HDL Cholesterol [address] 02/05/20 10:47 IMPRESSION: Chronic involutional changes of the brain. Electronically Signed: Reynaldo Gill MD at 12:13 EDT Tel , Service support , Cervical Spine CT 02/05/20 10:47 IMPRESSION: No acute fracture or subluxation. Electronically Signed: Reynaldo Gill MD at 12:11 EDT Tel , Service support , Hip/Pelvis X-Ray 02/05/20 10:55 IMPRESSION: Acute impacted fracture the transcervical femoral neck. Electronically Signed: Reynaldo Gill MD at 12:01 EDT Tel , Service support , Chest X-Ray 02/05/20 11:17 IMPRESSION: No active disease. Electronically Signed: Reynaldo Gill MD at 12:00 EDT Tel , Service support , Current Medications Acetaminophen (Tylenol) 650 mg PO Q6H PRN PRN PRN Reason: Pain Score 1-10/Temp > 100.7 F Aspirin (Ecotrin) 81 mg PO DAILY@0800 [facility] Last Admin: 02/05/20 16:54 Dose: Not Given Documented by: Sodium Chloride 68.4 ml/Ropivacaine 200 mg/Epinephrine HCl 0.6 mg/Morphine Sulfate 5 mg/Ketorolac Tromethamine 30 mg 0 ml OPERA.SITE X1 ONE Stop: 02/06/20 13:01 Dicyclomine HCl (Bentyl) 20 mg PO Q6H PRN PRN PRN Reason: abdominal discomfort Enoxaparin Sodium (Lovenox) 40 mg SC DAILY [facility] Folic Acid (Folic Acid) 1 mg PO DAILY@0800 [facility] Gabapentin (Neurontin) 300 mg PO Q8H PRN PRN PRN Reason: moderate to severe anxiety Hydroxyzine Pamoate (Vistaril Pamoate Capsule) 50 mg PO Q4H PRN PRN PRN Reason: mild anxiety Cefepime HCl 2 gm/ Sodium (Chloride) 100 mls @ 200 mls/hr IV Q8 JAYLON Last Infusion: 02/06/20 05:53 Dose: Infused Documented by: Sodium Chloride () 250 mls @ 15 mls/hr IV .[id number] PRN PRN Reason: Saline Flush Last Infusion: 02/06/20 02:18 Dose: 15 mls/hr Documented by: Sodium Chloride () 250 mls @ 15 mls/hr IV .[id number] PRN PRN Reason: Additional IVPB Infusion Tranexamic Acid 1,000 mg/ (Sodium Chloride) 110 mls @ 660 mls/hr IV X1 ONE Stop: 02/06/20 13:09 Tranexamic Acid 1,000 mg/ (Sodium Chloride) 110 mls @ 660 mls/hr IV X1 ONE Stop: 02/06/20 13:09 Cefazolin Sodium () 1 gm in 50 mls @ 100 mls/hr IV SEND TO OR W/PATIENT ONE Stop: 02/06/20 13:29 Loperamide HCl (Imodium) 2 mg PO Q4H PRN PRN PRN Reason: LOOSE STOOLS Lorazepam (Ativan) 2 mg PO Q2H PRN PRN; Protocol PRN Reason: CIWA score > 8 but <15 Lorazepam (Ativan) 2 mg PO UD PRN; Protocol PRN Reason: CIWA score >/=15. Lorazepam (Ativan) 2 mg IV Q2H PRN PRN; Protocol PRN Reason: CIWA score > 8 but <15 Lorazepam (Ativan) 2 mg IV UD PRN; Protocol PRN Reason: CIWA score >/=15. Lorazepam (Ativan) 2 mg PO Q4H [facility]; Taper Stop: 02/10/20 00:59 Last Admin: 02/06/20 05:05 Dose: 2 mg Documented by: Metoprolol Tartrate (Lopressor (Beta Terry)) 12.5 mg PO BID [facility] Last Admin: 02/05/20 22:15 Dose: Not Given Documented by: Morphine Sulfate () 4 mg IV Q3H PRN PRN PRN Reason: Pain Score 6-10/10 Last Admin: 02/05/20 20:17 Dose: 4 mg Documented by: Multivitamins/Minerals (Multivitamin With Minerals (Bkc)) [facility] Nitroglycerin (Nitrostat) 0.4 mg SUBLINGUAL Q5M PRN PRN Reason: CARDIAC/CHEST PAIN Ondansetron HCl (Zofran) 4 mg IV Q8H PRN PRN PRN Reason: NAUSEA/VOMITING Ondansetron HCl (Zofran) 8 mg PO Q8H PRN PRN PRN Reason: NAUSEA Oxycodone HCl (Oxyir) 5 mg PO Q4H PRN PRN PRN Reason: Pain Score 4-5/10 Sodium Chloride () 10 - 40 ml IV UD PRN PRN Reason: SALINE FLUSH Last Admin: 02/05/20 16:59 Dose: 10 ml Documented by: Thiamine HCl (Vitamin B1) 100 mg PO DAILYCM JAYLON Trazodone HCl (Desyrel) 100 mg PO QHS PRN PRN Reason: INSOMNIA STROKE Vital Signs/Narrative: Vital Signs Temp Pulse Resp BP Pulse Ox 02/06/20 06:00 100 16 100/56 L 97 02/06/20 05:00 113 H 15 133/51 H 91 02/06/20 04:00 98.7 F 102 H 16 116/56 L 97 Medical Necessity - Tobacco Use Smoking Status: Current some day smoker Assessment/Plan All Active Problems Nausea & vomiting (Acute) Prolonged QT interval (Resolved) Fracture of femoral neck, left, closed (Acute) Severe sepsis (Acute) UTI (urinary tract infection) (Acute) Elevated troponin (Acute) Abnormal cardiac enzyme level (Acute) Preop cardiovascular exam (Acute) Gastroenteritis (Resolved) Hypomagnesemia (Resolved) Alcoholic hepatitis (Acute) Hypokalemia (Resolved) Alcoholic pancreatitis (Acute) 70 y/o admitted via the ED with a complaint of mechanical fall # Severe sepsis due to UTI * WBC has trended down to 10. Lactic acid also trended down. * Blood and urine cultures pending. * On IV cefepime. Was hydrated with IV fluids per sepsis protocol. * Critical care on board. * UA showed 4+ bacteria. * # UTI: As under severe sepsis #Elevated troponins * Initial troponin was 0.164 this trended down slightly to 0.138. * EKG showed no acute ST changes. * On sublingual nitroglycerin and p.o. aspirin 81 mg daily. * Cardiology reviewed patient and felt her cardiac enzyme level may be elevated in a type II fashion from supply demand mismatch related to her ongoing sepsis. EKG showed no acute ST changes. A quick look hand-held bedside echogram done by cardiology demonstrated overall preserved left ventricular size, wall motion and systolic function. Therefore from a cardiovascular standpoint she will continue to be monitored and to continue on aspirin and low-dose beta-terry. # Acute fracture of the left hip due to mechanical fall * Left hip x-ray showed acute impacted fracture of the transcervical femoral neck * Orthopedic surgery consulted. * Fall precautions. PT OT consults. * IV morphine as needed for pain and p.o. [place]. * NSQIP score for patient showed a 13.4% risk of serious complication, and 15.3% risk of any complication, and a 1.6% risk of cardiac complications. * For surgery today at 1 PM. * Patient is high risk for surgery in light of her comorbidities and severe sepsis. Patient counseled about this, and she is willing to go ahead with surgery due to the severe pain she is having. * Preop COVID screen was negative. * I did call Dr Urbina, the anesthesiologist fabrication and layout craftsman, to discuss patient with her, considering her high risk status. I also spoke to Dr Marie this morning about patient's status, and that patient could go for surgery though she was deemed high risk due to her concurrent severe sepsis which appeared to be improving. * #lactic acidosis: Improved with IV fluid administration. # History of alcohol abuse: on withdrawal protocol with Ativan. # DVT prophylaxis: Lovenox CODE STATUS: Full code * Inpatient E&M: 79841 Subs Hosp L3
--- NOTE | 2020-02-06 08:00 | HIP_PTH ---
PATIENT: LYNDSEY DEL RIO LOC: MS3 U#:[id number] AGE/SX: 70/F [place] [facility] [place]: Dr. Antonio Fountain MD : [id number] BED: 1 DIS: 02/09/2020 SPEC #: [id number] RECD: 02/07/20 07:20 STATUS: PENELOPE REMitchell #: [id number] AZUCENA: 02/06/20 08:[address]: Josh Marie DEPT: SURGICAL PATHOLOGY RECD BY: Tony Anderson ENTERED: 02/07/20 09:12 SP TYPE: TOTAL HIP OTHR DR: DO Dr. Caridad Escobedo MD Dr. Nicholas F Kotsonis, MD Dr. Paul Moodispaw, MD Tai Chi Kwok, MD Tissues: Hip, NOS Procedures: Decalcification bone/plaque Surgery Specimen Level IV HEADER OPERATION: Left hip hemiarthroplasty PRE-OP DIAGNOSIS: Left hip fracture TISSUE SUBMITTED: Left femoral head MICROSCOPIC DIAGNOSIS Left hip, fracture: Organizing fracture callus. Trilineage hematopoiesis. AM:ria 02/10/20 MICROSCOPIC DESCRIPTION Slides are reviewed. GROSS DESCRIPTION Received is one container labeled with the patient's name and designated left femoral head. The specimen consists of a femoral head measuring 4 x 4 x 4 cm. A portion of femoral neck measures 2 cm in length. The articular surface is smooth. The resection margin is irregular and hemorrhagic. Also present in the specimen container are multiple detached pieces of bone measuring in aggregate 6 x 5 x 3 cm. No soft tissue is identified. Social Services Assistant sections are submitted in two cassettes as follows: 1??detached pieces of bone after decalcification, 2 - femoral head after decalcification. / SJ:ria 02/07/20 TC:5 CPT: 18062, 59114
[2020-02-06] MEDS: Ipratropium/Albuterol Sulfate 3 ML AMPUL.NEB INHALATION ×2 (08:03→18:36)
[2020-02-06] MEDS: Ondansetron 4 MG/2 ML Vial IV (09:04)
[2020-02-06] MEDS: Morphine 4 MG/ML Syringe IV ×2 (09:05→21:18)
[2020-02-06] MEDS: 0.9% Saline Lock 10 ML Syringe IV (09:06)
[2020-02-06 09:16] LABS: Thyroid Stim Hormone (TSH) 7.88 uIU/mL (0.358-3.74)
--- NOTE | 2020-02-06 09:16 | NURSING ---
Surgical history checklist difficult to complete. Patient drowsy.
--- NOTE | 2020-02-06 10:03 | PCM.PN.CARD ---
Subjectve: The patient appears to be resting comfortably at this time. She denies any acute cardiovascular related symptoms. Objective: Vital Signs Temp Pulse Resp BP Pulse Ox 98.7 F 108 H 20 H 135/68 H 100 02/06/20 04:00 02/06/20 09:00 02/06/20 09:00 02/06/20 09:00 02/06/20 09:00 Oxygen Delivery Method Room Air Weight: 132 lb 11.492 oz Body Mass Index (BMI) 21.9 Finger Stick Blood Glucose 103 Intake and Output for Last 24 Hours 02/04/20 02/05/20 02/06/20 23:59 23:59 23:59 Intake Total 4674.75 / 4674.75 151.5 / 151.5 Output Total 446 / 446 450 / 450 Balance 4228.75 / 4228.75 -298.5 / -298.5 General: Awake, No Acute Distress Lungs: Clear to auscultation Cardiovascular: Regular Rhythm, Normal S1, Normal S2 Abdomen: Bowel Sounds Present, Soft Psych/Mental Status: Appropriate 02/05/20 10:53: WBC 17.1 H, RBC 3.74 L, Hgb 12.5, Hct 37.9, MCV 101.3 H, MCH 33.4 H, MCHC 33.0, Plt Count 216, MPV 8.3 02/05/20 10:53: PT 14.2, INR 1.2 02/05/20 10:53: Sodium 137, Potassium 4.2, Chloride 99, Carbon Dioxide 30.0, Anion Gap 8, BUN 6 L, Creatinine 0.60, Est GFR (MDRD) Af Amer 126, Est GFR (MDRD) Non-Af 104, BUN/Creatinine Ratio 10.0, Glucose 150 H, Calcium 8.2 L, Total Bilirubin 1.80 H, Troponin I 0.164 H 02/05/20 10:53: Lactic Acid 3.9 H* 02/05/20 12:00: Urine Color Yellow, Urine Clarity Cloudy, Urine pH 7.0, Ur Specific [place] 1.005, Urine Protein 15 H, Urine Glucose (UA) Normal, Urine Ketones 50 H, Urine Occult Blood 25 H, Urine Nitrite Positive H, Urine Bilirubin 1 H, Urine Urobilinogen 8 H, Ur Leukocyte Esterase 500 H, Urine RBC 0 SEEN, Urine WBC 10-25 SEEN 02/05/20 15:20: Troponin I 0.155 H 02/05/20 15:20: Lactic Acid 2.2 H* 02/05/20 17:50: Troponin I 0.138 H 02/06/20 04:30: WBC 10.4, RBC 2.91 L, Hgb 9.7 L, Hct 30.4 L, MCV 104.5 H, MCH 33.3 H, MCHC 31.9 L, Plt Count 152, MPV 8.8, Immature Gran % (Auto) 0.700, Neut % (Auto) 85.5 H, Lymph % (Auto) 6.7 L, [place] % (Auto) 5.4, Eos % (Auto) 1.3, Baso % (Auto) 0.4, Absolute Neuts (auto) 8.9 H, Nucleated RBC % 0 02/06/20 04:30: Sodium 142, Potassium 3.7, Chloride 110 H, Carbon Dioxide 29.0, Anion Gap 3 L, BUN 9, Creatinine 0.41 L, Est GFR (MDRD) Af Amer 196, Est GFR (MDRD) Non-Af 162, BUN/Creatinine Ratio 21.9 H, Glucose 107 H, Calcium 7.3 L, Triglycerides 113, Cholesterol 143, LDL Cholesterol 74, VLDL Cholesterol 23, HDL Cholesterol 46 Rhythm: Sinus rhythm/sinus tachycardia EKG: Sinus rhythm Medical Necessity - Tobacco Use Smoking Status: Current some day smoker Assessment/Plan 1. Abnormal cardiac enzyme level The patient does have an abnormal cardiac enzyme level. Her cardiac enzymes have decreased. She does not present with symptoms considered classic for an acute coronary syndrome. Her cardiac enzyme level may be elevated in a type II fashion from a supply demand mismatch being related to her other ongoing medical issue which could be her sepsis syndrome. At the moment she appears without any acute cardiovascular symptoms. She will continue to be monitored. She will be treated medically with agents such as aspirin, nitrates as needed, and beta-blockers. Depending upon her clinical course she may eventually need additional noninvasive and/or invasive evaluation. 2. UTI/sepsis The patient has been diagnosed with a UTI and a sepsis syndrome based upon her clinical scenario and her objective findings. She is undergoing evaluation care per internal medicine and pulmonology/critical care medicine. She has been placed on antibiotic therapy. 3. Left hip fracture She does have a left hip fracture. She will continue evaluation care per internal medicine and orthopedic surgery. 4. Preoperative cardiovascular evaluation The present time the patient does not complain of any acute cardiovascular symptoms. She appears to be hemodynamically stable. Her cardiac enzymes are indeterminant and again it is not clear that this is related to an acute coronary syndrome versus related to a type II event being brought out by noncardiovascular issues such as her sepsis syndrome. Her ECG is demonstrated no acute cardiovascular findings. Her quick look hand-held bedside echocardiogram appeared to demonstrate overall preserved left ventricular size, wall motion, and systolic function. From a cardiovascular standpoint she will continue to be monitored as described above. She will continue medical therapy as described above. Depending upon her clinical course she may need additional cardiovascular evaluation in the future. In the interim she is in need of a hip fracture repair. Thus barring an acute change in her cardiovascular status, etc., it does not appear she requires additional cardiovascular diagnostic studies/intervention prior to proceeding with her orthopedic surgery. The timing of her orthopedic surgery may depend upon her noncardiac issues such as her sepsis syndrome. At the time of her surgery she have continued cardiac monitoring with respect to monitoring her heart rate, blood pressure, and cardiac rhythm. An attempt should be made to avoid significant fluctuations in her vital signs. Also an attempt should be made to avoid excess IV volume overload. Her H&H to be followed as if she were to become anemic she may need additional PRBCs. The patient's case has been discussed and reviewed with Dr. Humphrey and Dr. Silva. This note was generated using a voice recognition system and there may be incorrect words, spelling or punctuation that were not noted when reviewing the office note prior to saving.
--- NOTE | 2020-02-06 13:11 | NURSING ---
Report given to LEYDA Gunter in surgery
--- NOTE | 2020-02-06 13:12 | PCM.CONS.GEN ---
Reason for Consult Date of Consultation: 02/06/20 Reason for Consultation: Left hip fracture History of Present Illness: The patient is a 70 year old F [poor historian seems slightly confused lives alone at home history of alcohol dependence. Extensive past medical history brought to the emergency department by lesa February 05, 2020. Patient fell on the floor in her bedroom and could not get herself off the ground. She felt weak and fell. No head injury or loss of consciousness. A friend came to check on her in the morning and found her on the ground and called the squad. In the emergency department she was found to have a left hip fracture. She states that she may or may not have had pre-existing bilateral hip pain. She has had urinary tract infections in the past. She does admit to urinary frequency and dysuria. Denies any new numbness or tingling into her toes at this time.] Past Medical History Past Medical History (Chronic Problems): Chronic Problems Debility (Chronic) Autoimmune pancreatitis (Chronic) Alcohol dependence (Chronic) Psoriatic arthritis (Chronic) Hepatic steatosis (Chronic) Acute recurrent pancreatitis (Chronic) Abnormal LFTs (Chronic) Alcohol abuse (Chronic) Hypertension (Chronic) Hypothyroidism (Chronic) Anxiety (Chronic) Fibromyalgia (Chronic) Dysphagia (Chronic) Rheumatoid arthritis (Chronic) never confirmed.....RA is negative.....tells me that she has psoriatic arthritis Psoriasis (Chronic) Chronic back pain (Chronic) osteoarthritis Delusional disorder (Chronic) Bipolar disorder (Chronic) Depression with H/o suicidal attempt (Chronic) Allergies nickel [Nickel] Allergy (Verified 12/02/19 13:27) Rash/autoimmune reactions prochlorperazine edisylate [From Compazine] Adverse Reaction (Verified 12/02/19 13:27) disoriented prochlorperazine maleate [From Compazine] Adverse Reaction (Verified 12/02/19 13:27) DISORIENTED CADMIUM Allergy (Uncoded 12/02/19 13:27) Rash AUTOIMMUNE RESPONSE Home Medications: Ambulatory Orders Medication Instructions Recorded NK 02/05/20 Surgical History: tonsillectomy Psychiatric History: Anxiety, Bipolar, Depression, - - Delusional disorder. PRECISION GRINDER History: No pertinent PRECISION GRINDER history Lives: Alone Smoking Status: Current some day smoker Alcohol: Heavy Drugs: None - *Family History Maternal History Items: - - Reports autoimmune disease. Paternal History Items: - - Reports that her father from aspiration pneumonia at age 92. And her grandfather from pneumonia at age 32. She also notes that her father had exposure to nickel and had some diseases related but cannot give this information. Denied any history of heart disease, diabetes or cancer. Review of Systems Unable to obtain accurate/complete ROS d/t: Documented in the electronic medical record and personally reviewed Patient Problems: Active and Suspected Problems Fracture of femoral neck, left, closed (Acute) Severe sepsis (Acute) UTI (urinary tract infection) (Acute) Elevated troponin (Acute) Abnormal cardiac enzyme level (Acute) Preop cardiovascular exam (Acute) Objective: Patient is not aware what day it is but is aware that she is at [facility] knows that the senior vice president is Anton Christianson and that the season is changing from summer to fall. She appears to be in no acute distress at rest breathing easily without respiratory distress she is lying in the supine position on the hospital bed. Left hip is shortened and externally rotated. Left hip range of motion is deferred due to hip fracture. Gentle range of motion right hip is without restriction or increased pain. Logroll of right hip is without pain. There are anterior superficial abrasions over bilateral knees from the fall without active drainage erythema warmth or signs of infection. Fungal changes about multiple toenails of the lower extremity. Sensation intact light touch. Capillary refill less than 3 seconds pedal pulses present and equal bilaterally. Neurovascularly intact. X-rays of left hip and pelvis February 05, 2020 reviewed from [facility] consistent with acute impacted displaced femoral neck fracture on the left - Physical Exam Vitals/I&O's: Vital Signs Temp Pulse Resp BP Pulse Ox 97.6 F L 103 H 15 137/72 H 98 02/06/20 12:00 02/06/20 12:00 02/06/20 12:00 02/06/20 12:02/06/20 12:00 Oxygen Delivery Method Room Air Weight: 60.2 kg Body Mass Index (BMI) 22.1 Finger Stick Blood Glucose 103 Intake and Output for Last 24 Hours 02/04/20 02/05/20 02/06/20 23:59 23:59 23:59 Intake Total 4674.75 / 4674.75 176.5 / 176.5 Output Total 446 / 446 675 / 675 Balance 4228.75 / 4228.75 -498.5 / -498.5 Microbiology Past 72 Hours 02/05/20 12:00 Urine Catheter - Funk Urine Culture - Preliminary Presumptive E. coli Laboratory Results 02/05/20 13:29: COVID-19 (MELISA) Negative 02/05/20 15:20: Troponin I 0.155 H 02/05/20 15:20: Lactic Acid 2.2 H* 02/05/20 17:50: Troponin I 0.138 H 02/06/20 04:30: WBC 10.4, RBC 2.91 L, Hgb 9.7 L, Hct 30.4 L, MCV 104.5 H, MCH 33.3 H, MCHC 31.9 L, RDW Std Deviation 65.4 H, RDW Coeff of Jonathan 17.3 H, Plt Count 152, MPV 8.8, Immature Gran % (Auto) 0.700, Neut % (Auto) 85.5 H, Lymph % (Auto) 6.7 L, Laurel % (Auto) 5.4, Eos % (Auto) 1.3, Baso % (Auto) 0.4, Absolute Neuts (auto) 8.9 H, Absolute Lymphs (auto) 0.70 L, Nucleated RBC % 0, Differential Comment SCANNED, Hypochromasia RARE, Anisocytosis 1+, Macrocytosis 1+ 02/06/20 04:30: Sodium 142, Potassium 3.7, Chloride 110 H, Carbon Dioxide 29.0, Anion Gap 3 L, BUN 9, Creatinine 0.41 L, Estim Creat Clear Calc 45.76, Est GFR (MDRD) Af Amer 196, Est GFR (MDRD) Non-Af 162, BUN/Creatinine Ratio 21.9 H, Glucose 107 H, Calcium 7.3 L, Triglycerides 113, Cholesterol 143, LDL Cholesterol 74, VLDL Cholesterol 23, HDL Cholesterol 46 02/06/20 04:30: TSH 7.88 H Current Medications Acetaminophen (Tylenol) 650 mg PO Q6H PRN PRN PRN Reason: Pain Score 1-10/Temp > 100.7 F Albuterol/Ipratropium (Duoneb) 3 ml INHALATION Q6HWA.RT JAYLON Last Admin: 02/06/20 08:03 Dose: 3 ml Documented by: Aspirin (Ecotrin) 81 mg PO DAILY@0800 [facility] Last Admin: 02/06/20 11:52 Dose: Not Given Documented by: Dicyclomine HCl (Bentyl) 20 mg PO Q6H PRN PRN PRN Reason: abdominal discomfort Enoxaparin Sodium (Lovenox) 40 mg SC DAILY [facility] Last Admin: 02/06/20 11:53 Dose: Not Given Documented by: Folic Acid (Folic Acid) 1 mg PO DAILY@0800 [facility] Last Admin: 02/06/20 11:52 Dose: Not Given Documented by: Gabapentin (Neurontin) 300 mg PO Q8H PRN PRN PRN Reason: moderate to severe anxiety Hydroxyzine Pamoate (Vistaril Pamoate Capsule) 50 mg PO Q4H PRN PRN PRN Reason: mild anxiety Cefepime HCl 2 gm/ Sodium (Chloride) 100 mls @ 200 mls/hr IV Q8 JAYLON Last Infusion: 02/06/20 05:53 Dose: Infused Documented by: Sodium Chloride () 250 mls @ 15 mls/hr IV .[id number] PRN PRN Reason: Saline Flush Last Infusion: 02/06/20 02:18 Dose: 15 mls/hr Documented by: Sodium Chloride () 250 mls @ 15 mls/hr IV .[id number] PRN PRN Reason: Additional IVPB Infusion Cefazolin Sodium () 1 gm in 50 mls @ 100 mls/hr IV SEND TO OR W/PATIENT ONE Stop: 02/06/20 13:29 Loperamide HCl (Imodium) 2 mg PO Q4H PRN PRN PRN Reason: LOOSE STOOLS Lorazepam (Ativan) 2 mg PO Q2H PRN PRN; Protocol PRN Reason: CIWA score > 8 but <15 Lorazepam (Ativan) 2 mg PO UD PRN; Protocol PRN Reason: CIWA score >/=15. Lorazepam (Ativan) 2 mg IV Q2H PRN PRN; Protocol PRN Reason: CIWA score > 8 but <15 Lorazepam (Ativan) 2 mg IV UD PRN; Protocol PRN Reason: CIWA score >/=15. Lorazepam (Ativan) 2 mg PO Q4H [facility]; Taper Stop: 02/10/20 00:59 Last Admin: 02/06/20 11:41 Dose: 2 mg Documented by: Metoprolol Tartrate (Lopressor (Beta Terry)) 12.5 mg PO BID [facility] Last Admin: 02/05/20 22:15 Dose: Not Given Documented by: Morphine Sulfate () 4 mg IV Q3H PRN PRN PRN Reason: Pain Score 6-10/10 Last Admin: 02/06/20 09:05 Dose: 4 mg Documented by: Multivitamins/Minerals ([facility]ivitamin With Minerals (Bkc)) [facility] Last Admin: 02/06/20 11:52 Dose: Not Given Documented by: Nicotine (Nicoderm Cq (Pbkc)) 14 mg TRANSDERM. DAILY [facility] Nitroglycerin (Nitrostat) 0.4 mg SUBLINGUAL Q5M PRN PRN Reason: CARDIAC/CHEST PAIN Ondansetron HCl (Zofran) 4 mg IV Q8H PRN PRN PRN Reason: NAUSEA/VOMITING Last Admin: 02/06/20 09:04 Dose: 4 mg Documented by: Ondansetron HCl (Zofran) 8 mg PO Q8H PRN PRN PRN Reason: NAUSEA Oxycodone HCl (Oxyir) 5 mg PO Q4H PRN PRN PRN Reason: Pain Score 4-5/10 Sodium Chloride () 10 - 40 ml IV UD PRN PRN Reason: SALINE FLUSH Last Admin: 02/06/20 09:06 Dose: 10 ml Documented by: Thiamine HCl (Vitamin B1) [facility] Last Admin: 02/06/20 11:52 Dose: Not Given Documented by: Trazodone HCl (Desyrel) 100 mg PO QHS PRN PRN Reason: INSOMNIA Assessment/Plan All Active Problems Nausea & vomiting (Acute) Prolonged QT interval (Resolved) Fracture of femoral neck, left, closed (Acute) Severe sepsis (Acute) UTI (urinary tract infection) (Acute) Elevated troponin (Acute) Abnormal cardiac enzyme level (Acute) Preop cardiovascular exam (Acute) Gastroenteritis (Resolved) Hypomagnesemia (Resolved) Alcoholic hepatitis (Acute) Hypokalemia (Resolved) Alcoholic pancreatitis (Acute) Assessment/plan Displaced femoral neck fracture on the left and a possibly septic female from underlying urinary tract infection Dr. Josh Marie discussed and reviewed at length with patient treatment options including surgical and nonsurgical. At this time the patient does wish to proceed with a left hip hemiarthroplasty. Potential risk benefits and complications of this procedure were reviewed in detail including but not limited to infection nerve and blood vessel damage persistent pain numbness tingling paresthesias blood clot pulmonary ballismus and the requirement for possible further surgery. Patient expressed full understanding has no further questions for the doctor does agreed to proceed with the above-stated procedure and has signed the appropriate surgery consent form Potential risks of COVID-19 were discussed and reviewed at length with patient as well including exposure while in the hospital. We reviewed the strategies to avoid risk of exposure. Patient voiced understanding.
[2020-02-06] MEDS: Cefazolin 1 GM/50 ML BAG IV ×2 (14:01→21:18)
--- NOTE | 2020-02-06 14:45 | PCM.OP.PRO ---
Procedure Report Date of Procedure: 02/06/20 Preoperative diagnosis: Left hip displaced femoral neck fracture Postoperative diagnosis: Same Operation: Left hip press fit hemiarthroplasty Surgeon: Dr. Josh Marie MD Hair Mixer: Paola Haas PA-C Anesthesia: General Anesthesiologist; Dr. Urbina Special medications: IV [Ancef], IV Tranexamic acid IV x 1 EBL 150 cc Complications: None Indications for surgery : Patient is a 70 -year-old [female] that fell yesterday fracturing Left hip. Appropriate informed consent was obtained and signed. Appropriate medical workup was performed preoperatively and patient was deemed safe for surgery by the anesthesia department. Patient was felt to be adequately optimized for surgical intervention. Case was discussed with hospitalist who agreed to proceed with surgical intervention. Has been afebrile and her white cell count had normalized nicely inventory control assistantTIMOTHY was utilized throughout the entire procedure. They were vital in helping with patient positioning, holding of retractors, exposing the tissues adequately for safe completion of the procedure including cutting of the bone, helping social media executive appropriate alignment and sizing of the components, implantation of the components, as well as wound closure, bandage application, and safe patient transfer. Without contact lens assistant, physician chemistry research assistant, surgical time would have been significantly increased, and surgical outcome would have been less optimal. Operative findings: Patient displaced comminuted left femoral neck fracture. We used a [place] 2 fit size #5. Bipolar 45 mm femoral head with a +0 neck length. This reproduced there anatomy nicely. Clinically good leg lengths were noted. Good hip stability through range of motion with no undue pistoning. Standard wound closure in layers, followed by tobias, followed by Mepilex dressing Details of procedure: Patient was taken to the operating room and transferred to the operating table. Given appropriate anesthetic agent by that department. Patient was then rolled into a lateral decubitus position with the involved painful hip up in the air. Appropriate timeouts had been performed. Hip had been appropriately marked with my initials. Padded anterior and posterior position was utilized. Axillary roll placed. NGUYEN hose and SCDs on the nonoperative limb utilized throughout the procedure. Operative lower extremity was prepped padded and draped in the usual orthopedic sterile fashion for the procedure. I injected the pain relieving solution in the standard sterile technique of the soft tissues of the hip carefully. Incision was made curving over the tip of the greater trochanter posteriorly. Full thickness skin flaps are raised down on the fascia gema. Fascia gema was opened in length with our incision. Charnley self-retaining hip retractor was carefully placed by the surgeon. Leg was appropriately rotated by the chemistry research assistant. Retractor was used to lift the abductors anteriorly to visualize the piriformis tendon and external rotators. Piriformis tendon and external rotators released off the greater trochanter with the Bovie. Tagging suture was placed in each of these separately. We then split the tissue superior to the piriformis tendon through capsule and onto the pelvis. Acetabular labrum was preserved. Retractors were carefully placed around the femoral neck. Displaced unstable femoral neck fracture identified. cutting guide was utilized to map out the proposed cut approximately 1/2 fingerbreadth above the lesser trochanter. This femoral neck cut was carried out with a saw. Fractured femoral head removed and measured and inspected. Femoral head was measured. Appropriate trial was utilized. A proximal femoral elevator utilized. We used a sharp awl entering down inside the bone of the proximal femur. Utilized the skye cutting osteotome the proximal lateral greater trochanteric region. The fragment removed. Broaching was then done from the smallest broach, upto the appropriate size. Good stability was confirmed. We then trialed the construct with a standard neck length and appropriate sized femoral head. We were happy with the construct. Good stability to flexion, rotation. At this point trials removed. The appropriate size stem then hammered into the proximal femur and seated down to a similar position as the trial had. Press-fit stem was solid within the bone. No fracture was noted. Pain relieving solution was injected while this was occurring. We now again trialed and appropriate neck length decided upon. It was then opened. Now impacted the appropriate sized femoral head, neck construct onto the clean dried trunion. Was noted to be stable. Hip was inspected, and joint was reduced for a final time. Good hip stability and leg lengths noted. This was then irrigated with saline and cleaned. Next the remainder of the pain relieving solution was injected carefully throughout the soft tissues of the hip joint. Closure was carried out with a combination of #1 Vicryl repairing the hip capsule as well as piriformis tendon and external rotators to bone, running #2 strata fix in the fascia gema, followed by mid layer #1 Vicryl with #1 strata fix running. Next running 0 strata fix, followed by skin tobias, Xeroform, Mepilex dressing. We placed NGUYEN hose and SCD on the operative leg. Patient awoken from the anesthetic and transferred back to room bed in recovery room in satisfactory condition. Patient will be admitted to the hospital. Hospitalist service will continue to manage the medical issues. Hopeful discharge to home or ECF in 2-3 days. Ancef was used for perioperative antibiotic. Lovenox will be used for postoperative DVT prevention. Also NGUYEN hose and SCDs. This note was generated with [employer] dictation software. It may contain incorrect words, spelling, and punctuation that were not noted in checking the note before signing.
--- NOTE | 2020-02-06 15:16 | RAD_ITS ---
STUDY: X-RAY - PELVIS AND LEFT HIP REASON FOR EXAM: Female, 70 years old. Post op left hip TECHNIQUE: 2 views of the pelvis and hip. COMPARISON: February 05 2020 FINDINGS: There is recently placed left total hip arthroplasty with incision outlined by skin tobias and minimal subcutaneous gas. RAD/Hip Min 2 Views (Portable) IMPRESSION: Expected early postoperative appearance after left total hip arthroplasty. Electronically Signed: Mario Espitia, at 18:57 EDT Tel , Service support ,
[2020-02-06] MEDS: Metoprolol Tartrate 25 MG Tablet 12.5 MG PO (22:32)
[2020-02-06] MEDS: Senna/Docusate Sodium 1 Tablet 2 TABLET PO (22:33)
[2020-02-07] VITALS (22 sets, daily range): BP systolic 93–156; BP diastolic 43–112; PULSE 58–126; RESP 13–20; TEMP 36.3–37.2; O2SAT 18–100
[2020-02-07] MEDS: Cefazolin 1 GM/50 ML BAG IV ×2 (02:32→09:15)
[2020-02-07] MEDS: LORazepam 1 MG Tablet 0.5 MG PO ×6 (02:33→20:52)
[2020-02-07] MEDS: Morphine 4 MG/ML Syringe IV (03:40)
[2020-02-07 05:28] LABS: Absolute Lymphocyte Count 0.57 X10^3/uL (0.83-4.51); Absolute Neutrophil Count 9.8 X10^3/uL (2.0-7.7); Basophil# 0.05 X10^3/uL; Basophil% 0.4 % (0-1); Eosinophil# 0.02 X10^3/uL; Eosinophils% 0.2 % (0-5); Hematocrit 28.9 % (37-47); Hemoglobin 9.4 g/dL (12.0-15.0); Lymphocyte # 0.57 X10^3/ul (4.0); Lymphocyte % 5.1 % (19-41); Mean Corp Hgb Conc 32.5 g/dL (32-36); Mean Corpuscular Hgb 33.8 pg (27.0-32.0); Mean Platelet Vol. 8.8 fl (6.2-12.0); Monocyte# 0.67 X10^3/uL; NRBC Flagged by Analyzer 0 % (0-5); Neutrophil # 9.81 X10^3/uL (2.7-7.7); Neutrophil % 87.3 % (47-70); POSITIVE DIFFERENTIAL YES; Platelet Count 146 K/mm3 (150-450); RBC Distribution Width CV 16.3 % (11.6-14.6); RBC Distribution Width SD 62.7 fl (35.1-43.9); Red Blood Count 2.78 M/mm3 (4.2-5.4); White Blood Count 11.2 K/mm3 (4.4-11.0)
[2020-02-07 05:43] LABS: Anion Gap 5 (5-15); BUN 9 mg/dL (7-18); BUN/Creat Ratio 22.4 RATIO (10-20); Calcium,Total 7.6 mg/dL (8.5-10.1); Chloride 107 mmol/L (98-107); EST Glomerular Filtration Rate 166 mL/min (>60); Est Glom Filt Rate - Afr Amer 201 mL/min (>60); Estimated Creatinine Clearance 45.76 ml/min; Glucose 117 mg/dL (74-106); Potassium 3.7 mmol/L (3.5-5.1); Sodium Level 139 mmol/L (136-145)
[2020-02-07 06:11] LABS: Differential Indicated SCAN CRITERIA MET
[2020-02-07 06:18] LABS: Differential Comment SCANNED
[2020-02-07] MEDS: Ipratropium/Albuterol Sulfate 3 ML AMPUL.NEB INHALATION ×3 (06:30→19:06)
--- NOTE | 2020-02-07 06:48 | PN.ORTHO_ITS ---
Patient Problems: Active and Suspected Problems Fracture of femoral neck, left, closed (Acute) Severe sepsis (Acute) UTI (urinary tract infection) (Acute) Elevated troponin (Acute) Abnormal cardiac enzyme level (Acute) Preop cardiovascular exam (Acute) Subjective: The patient was sitting in bed upon examination. Patient denies chest pain, shortness of breath, dizziness, lightheadedness, nausea, vomiting or calf pain. Pain is controlled on medications. No adverse events overnight. The patient was able to answer questions appropriately. She states the left hip feels much better. The patient stated she was concerned about how she was going to be able to get to her follow-up appointment and physical therapy. She stated she does not have a vehicle. I reassured the patient that this will be taken care of per case management and the public health social worker. Objective: Vital signs stable. Patient is afebrile. Patient is able to plantar flex and dorsiflex actively. Sensation is intact to light touch to saphenous, sural, superficial and deep peroneal and tibial nerve distributions. Dressing is clean, dry and intact. Negative Homans bilaterally. Negative signs and symptoms of DVT. - Physical Exam Vitals/I&O's: Vital Signs Temp Pulse Resp BP Pulse Ox 98.5 F 107 H 20 H 156/72 H 93 02/07/20 05:00 02/07/20 06:30 02/07/20 06:30 02/07/20 06:00 02/07/20 06:30 Oxygen Delivery Method Room Air Weight: 62.2 kg Body Mass Index (BMI) 22.1 Finger Stick Blood Glucose 103 Intake and Output for Last 24 Hours 02/05/20 02/06/20 02/07/20 23:59 23:59 23:59 Intake Total 4674.75 / 4674.75 850.25 / 850.25 220 / 220 Output Total 446 / 446 1575 / 1725 275 / 275 Balance 4228.75 / 4228.75 -724.75 / -874.75 -55 / -55 General: Alert, Cooperative HEENT: PERRLA Oral: Moist Mucosa Lungs: Normal air movement Abdomen: Soft Extremities: No Calf Tenderness Skin: Incision - left hip Neurological: Sensory exam intact to light touch and pain Psych/Mental Status: Normal Affect, Appropriate Microbiology Past 72 Hours 02/05/20 12:00 Urine Catheter - Funk Urine Culture - Preliminary Presumptive E. coli Laboratory Results 02/06/20 04:30: TSH 7.88 H 02/07/20 05:20: WBC 11.2 H, RBC 2.78 L, Hgb 9.4 L, Hct 28.9 L, MCV 104.0 H, MCH 33.8 H, MCHC 32.5, RDW Std Deviation 62.7 H, RDW Coeff of Jonathan 16.3 H, Plt Count 146 L, MPV 8.8, Immature Gran % (Auto) 1.000 H, Neut % (Auto) 87.3 H, Lymph % (Auto) 5.1 L, [place] % (Auto) 6.0, Eos % (Auto) 0.2, Baso % (Auto) 0.4, Absolute Neuts (auto) 9.8 H, Absolute Lymphs (auto) 0.57 L, Nucleated RBC % 0, Differential Comment SCANNED 02/07/20 05:20: Sodium 139, Potassium 3.7, Chloride 107, Carbon Dioxide 27.0, Anion Gap 5, BUN 9, Creatinine 0.40 L, Estim Creat Clear Calc 45.76, Est GFR (MDRD) Af Amer 201, Est GFR (MDRD) Non-Af 166, BUN/Creatinine Ratio 22.4 H, Glucose 117 H, Calcium 7.6 L Current Medications Acetaminophen (Tylenol) 650 mg PO Q6H PRN PRN PRN Reason: Pain Score 1-10/Temp > 100.7 F Albuterol/Ipratropium (Duoneb) 3 ml INHALATION Q6HWA.RT [facility] Last Admin: 02/07/20 06:30 Dose: 3 ml Documented by: Aspirin (Ecotrin) 81 mg PO DAILY@0800 [facility] Last Admin: 02/06/20 11:52 Dose: Not Given Documented by: Dicyclomine HCl (Bentyl) 20 mg PO Q6H PRN PRN PRN Reason: abdominal discomfort Enoxaparin Sodium (Lovenox) 40 mg SC DAILY [facility] Last Admin: 02/06/20 11:53 Dose: Not Given Documented by: Folic Acid (Folic Acid) 1 mg PO DAILY@0800 [facility] Last Admin: 02/06/20 11:52 Dose: Not Given Documented by: Gabapentin (Neurontin) 300 mg PO Q8H PRN PRN PRN Reason: moderate to severe anxiety Hydroxyzine Pamoate (Vistaril Pamoate Capsule) 50 mg PO Q4H PRN PRN PRN Reason: mild anxiety Cefepime HCl 2 gm/ Sodium (Chloride) 100 mls @ 200 mls/hr IV Q8 JAYLON Last Infusion: 02/07/20 06:03 Dose: Infused Documented by: Sodium Chloride () 250 mls @ 15 mls/hr IV .[id number] PRN PRN Reason: Saline Flush Last Infusion: 02/06/20 15:05 Dose: Infused Documented by: Sodium Chloride () 250 mls @ 15 mls/hr IV .[id number] PRN PRN Reason: Additional IVPB Infusion Cefazolin Sodium () 1 gm in 50 mls @ 150 mls/hr IV Q6H [facility] Stop: 02/07/20 09:19 Last Infusion: 02/07/20 02:52 Dose: Infused Documented by: Loperamide HCl (Imodium) 2 mg PO Q4H PRN PRN PRN Reason: LOOSE STOOLS Lorazepam (Ativan) 2 mg PO Q2H PRN PRN; Protocol PRN Reason: CIWA score > 8 but <15 Lorazepam (Ativan) 2 mg PO UD PRN; Protocol PRN Reason: CIWA score >/=15. Lorazepam (Ativan) 2 mg IV Q2H PRN PRN; Protocol PRN Reason: CIWA score > 8 but <15 Lorazepam (Ativan) 2 mg IV UD PRN; Protocol PRN Reason: CIWA score >/=15. Lorazepam (Ativan) 1 mg PO Q4H [facility]; Taper Stop: 02/10/20 00:59 Last Admin: 02/07/20 06:32 Dose: 1 mg Documented by: Metoprolol Tartrate (Lopressor (Beta Terry)) 12.5 mg PO BID [facility] Last Admin: 02/06/20 22:32 Dose: 12.5 mg Documented by: Morphine Sulfate () 4 mg IV Q3H PRN PRN PRN Reason: Pain Score 6-10/10 Last Admin: 02/07/20 03:40 Dose: 4 mg Documented by: Multivitamins/Minerals (Multivitamin With Minerals (Bkc)) 1 tablet PO DAILYCM [facility] Last Admin: 02/06/20 11:52 Dose: Not Given Documented by: Nicotine (Nicoderm Cq (Pbkc)) 14 mg TRANSDERM. DAILY [facility] Last Admin: 02/06/20 15:38 Dose: 14 mg Documented by: Nitroglycerin (Nitrostat) 0.4 mg SUBLINGUAL Q5M PRN PRN Reason: CARDIAC/CHEST PAIN Ondansetron HCl (Zofran) 4 mg IV Q8H PRN PRN PRN Reason: NAUSEA/VOMITING Last Admin: 02/06/20 09:04 Dose: 4 mg Documented by: Ondansetron HCl (Zofran) 8 mg PO Q8H PRN PRN PRN Reason: NAUSEA Oxycodone HCl (Oxyir) 5 mg PO Q4H PRN PRN PRN Reason: Pain Score 4-5/10 Senna/Docusate Sodium (Senokot-S, Emely-Colace) 2 tablet PO BID [facility] Last Admin: 02/06/20 22:33 Dose: 2 tablet Documented by: Sodium Chloride () 10 - 40 ml IV UD PRN PRN Reason: SALINE FLUSH Last Admin: 02/06/20 09:06 Dose: 10 ml Documented by: Thiamine HCl (Vitamin B1) 100 mg PO DAILYCM [facility] Last Admin: 02/06/20 11:52 Dose: Not Given Documented by: Trazodone HCl (Desyrel) 100 mg PO QHS PRN PRN Reason: INSOMNIA Medical Necessity - Tobacco Use Smoking Status: Current some day smoker Assessment/Plan All Active Problems Nausea & vomiting (Acute) Prolonged QT interval (Resolved) Fracture of femoral neck, left, closed (Acute) Severe sepsis (Acute) UTI (urinary tract infection) (Acute) Elevated troponin (Acute) Abnormal cardiac enzyme level (Acute) Preop cardiovascular exam (Acute) Gastroenteritis (Resolved) Hypomagnesemia (Resolved) Alcoholic hepatitis (Acute) Hypokalemia (Resolved) Alcoholic pancreatitis (Acute) 1. Status post left hip hemiarthroplasty post operative day #1. 2. Continue pain medications: Tylenol and oxycodone per medicine 3. DVT prophylaxis: Lovenox for DVT prophylaxis. 4. PT/OT: Weightbearing as tolerated. Set up for physical therapy. Follow posterior hip precautions. 5. H & H: 9.4/28.9, asymptomatic 6. WBCs: 11.2, afebrile. Patient was given Decadron intraoperatively. 7. Encouraged incentive spirometry. 8. Continue postoperative medical management per medicine. 9. Postoperative drainage: Dressing is clean, dry and intact. 10. Disposition: The patient is orthopedically stable. Okay for discharge when medically ready. Orthopedics will be signing off. Please contact us with any questions or concerns. The patient will need to follow-up with Paola Haas PA-C or Dr. Josh Marie in 12-14 days at [facility]. Please contact the office at [phone] to schedule an appointment. She should continue with the Lovenox for DVT prophylaxis. The patient may shower over the dressing as long as it is clean, dry and intact to the skin. The dressing should remain intact and not be removed until she is seen in 12-14 days for her follow-up appointment. The patient is weightbearing as tolerated. She will need to be set up for physical therapy.
--- NOTE | 2020-02-07 06:58 | PCM.PN.INT ---
Subjective: Patient did well overnight. Patient did have surgery yesterday without complications. Patient is reporting minimal pain of the hip. No shortness of breath has been noted. Patient has not had any hemodynamic instability. Nursing reports some PRN Ativan have been required secondary to agitation. General: Alert, No apparent distress, Confused, Disoriented, - - Appears older than stated age HEENT: Atraumatic, PERRLA, EOMI, Normocephalic, - - Slight scleral injection without icterus Oral: Moist Mucosa Neck: Supple, No JVD, No Nodes, Trachea Midline Lungs: Diminished Cardiovascular: Regular rate, Regular Rhythm, Normal S1, Normal S2, No murmurs, No rub noted, No Gallop Abdomen: Bowel Sounds Present, Soft, Non Tender, Non-Distended Extremities: No clubbing, No cyanosis, No edema, - - Dirt noted under nails. Skin: - - Left hip ecchymosis noted. Surgical site is clean, dry and intact Musculoskeletal: Tenderness - Palpation of left hip Lymphatic: No Cervical, Supraclavicular, or Inguinal Adenopathy Neurological: Cranial nerves II-XII grossly intact, Neuro grossly intact, Motor Exam 5/5 strength throughout Psych/Mental Status: Flat Affect Vital Signs Temp Pulse Resp BP Pulse Ox 37.0 C 115 H 15 156/72 H 99 02/07/20 06:54 02/07/20 06:54 02/07/20 06:54 02/07/20 06:54 02/07/20 06:54 Oxygen Delivery Method Room Air Weight: 62.2 kg Body Mass Index (BMI) 22.1 Finger Stick Blood Glucose 103 Intake and Output for Last 24 Hours 02/05/20 02/06/20 02/07/20 23:59 23:59 23:59 Intake Total 4674.75 / 4674.75 850.25 / 850.25 220 / 220 Output Total 446 / 446 1575 / 1725 275 / 275 Balance 4228.75 / 4228.75 -724.75 / -874.75 -55 / -55 Labs (Last 48 Hours) 02/05/20 02/05/20 02/05/20 10:53 10:53 10:53 WBC 17.1 H RBC 3.74 L Hgb 12.5 Hct 37.9 MCV 101.3 H MCH 33.4 H MCHC 33.0 RDW Std Deviation 61.6 H RDW Coeff of Jonathan 16.9 H Plt Count 216 MPV 8.3 Immature Gran % (Auto) Neut % (Auto) Lymph % (Auto) [place] % (Auto) Eos % (Auto) Baso % (Auto) Absolute Neuts (auto) Absolute Lymphs (auto) Nucleated RBC % Differential Comment Hypochromasia Anisocytosis Macrocytosis PT 14.2 INR 1.2 Sodium 137 Potassium 4.2 Chloride 99 Carbon Dioxide 30.0 Anion Gap 8 BUN 6 L Creatinine 0.60 Estim Creat Clear Calc 47.60 Est GFR (MDRD) Af Amer 126 Est GFR (MDRD) Non-Af 104 BUN/Creatinine Ratio 10.0 Glucose 150 H Lactic Acid Calcium 8.2 L Total Bilirubin 1.80 H AST 70 H ALT 27 Alkaline Phosphatase 273 H Total Creatine Kinase Troponin I 0.164 H Total Protein 7.2 Albumin 2.8 L Globulin 4.4 H Albumin/Globulin Ratio 0.6 L Triglycerides Cholesterol LDL Cholesterol VLDL Cholesterol HDL Cholesterol Lipase 262 TSH Urine Color Urine Clarity Urine pH Ur Specific [place] Urine Protein Urine Glucose (UA) Urine Ketones Urine Occult Blood Urine Nitrite Urine Bilirubin Urine Urobilinogen Ur Leukocyte Esterase Urine RBC Urine WBC Ur Squamous Epith Cells Urine Bacteria Urine Mucus Urine Opiates Screen Urine Methadone Screen Ur Barbiturates Screen Ur Phencyclidine Scrn Ur Amphetamines Screen U Methamphetamin-MDMA U Benzodiazepines Scrn Urine Cocaine Screen U Cannabinoids Screen Ur Drug Screen Comment Ethyl Alcohol COVID-19 (MELISA) 02/05/20 02/05/20 02/05/20 10:53 10:53 10:53 WBC RBC Hgb Hct MCV MCH MCHC RDW Std Deviation RDW Coeff of Jonathan Plt Count MPV Immature Gran % (Auto) Neut % (Auto) Lymph % (Auto) [place] % (Auto) Eos % (Auto) Baso % (Auto) Absolute Neuts (auto) Absolute Lymphs (auto) Nucleated RBC % Differential Comment Hypochromasia Anisocytosis Macrocytosis PT INR Sodium Potassium Chloride Carbon Dioxide Anion Gap BUN Creatinine Estim Creat Clear Calc Est GFR (MDRD) Af Amer Est GFR (MDRD) Non-Af BUN/Creatinine Ratio Glucose Lactic Acid 3.9 H* Calcium Total Bilirubin AST ALT Alkaline Phosphatase Total Creatine Kinase 168 Troponin I Total Protein Albumin Globulin Albumin/Globulin Ratio Triglycerides Cholesterol LDL Cholesterol VLDL Cholesterol HDL Cholesterol Lipase TSH Urine Color Urine Clarity Urine pH Ur Specific [place] Urine Protein Urine Glucose (UA) Urine Ketones Urine Occult Blood Urine Nitrite Urine Bilirubin Urine Urobilinogen Ur Leukocyte Esterase Urine RBC Urine WBC Ur Squamous Epith Cells Urine Bacteria Urine Mucus Urine Opiates Screen Urine Methadone Screen Ur Barbiturates Screen Ur Phencyclidine Scrn Ur Amphetamines Screen U Methamphetamin-MDMA U Benzodiazepines Scrn Urine Cocaine Screen U Cannabinoids Screen Ur Drug Screen Comment Ethyl Alcohol 8.0 COVID-19 (MELISA) 02/05/20 02/05/20 02/05/20 12:00 12:00 13:29 WBC RBC Hgb Hct MCV MCH MCHC RDW Std Deviation RDW Coeff of Jonathan Plt Count MPV Immature Gran % (Auto) Neut % (Auto) Lymph % (Auto) [place] % (Auto) Eos % (Auto) Baso % (Auto) Absolute Neuts (auto) Absolute Lymphs (auto) Nucleated RBC % Differential Comment Hypochromasia Anisocytosis Macrocytosis PT INR Sodium Potassium Chloride Carbon Dioxide Anion Gap BUN Creatinine Estim Creat Clear Calc Est GFR (MDRD) Af Amer Est GFR (MDRD) Non-Af BUN/Creatinine Ratio Glucose Lactic Acid Calcium Total Bilirubin AST ALT Alkaline Phosphatase Total Creatine Kinase Troponin I Total Protein Albumin Globulin Albumin/Globulin Ratio Triglycerides Cholesterol LDL Cholesterol VLDL Cholesterol HDL Cholesterol Lipase TSH Urine Color Yellow Urine Clarity Cloudy Urine pH 7.0 Ur Specific [place] 1.005 Urine Protein 15 H Urine Glucose (UA) Normal Urine Ketones 50 H Urine Occult Blood 25 H Urine Nitrite Positive H Urine Bilirubin 1 H Urine Urobilinogen 8 H Ur Leukocyte Esterase 500 H Urine RBC 0 SEEN Urine WBC 10-25 SEEN Ur Squamous Epith Cells 0-5 SEEN Urine Bacteria 4+ Urine Mucus 0 SEEN Urine Opiates Screen NEGATIVE Urine Methadone Screen NEGATIVE Ur Barbiturates Screen NEGATIVE Ur Phencyclidine Scrn NEGATIVE Ur Amphetamines Screen NEGATIVE U Methamphetamin-MDMA NEGATIVE U Benzodiazepines Scrn NEGATIVE Urine Cocaine Screen NEGATIVE U Cannabinoids Screen NEGATIVE Ur Drug Screen Comment Ethyl Alcohol COVID-19 (MELISA) Negative 02/05/20 02/05/20 02/05/20 15:20 15:20 17:50 WBC RBC Hgb Hct MCV MCH MCHC RDW Std Deviation RDW Coeff of Jonathan Plt Count MPV Immature Gran % (Auto) Neut % (Auto) Lymph % (Auto) [place] % (Auto) Eos % (Auto) Baso % (Auto) Absolute Neuts (auto) Absolute Lymphs (auto) Nucleated RBC % Differential Comment Hypochromasia Anisocytosis Macrocytosis PT INR Sodium Potassium Chloride Carbon Dioxide Anion Gap BUN Creatinine Estim Creat Clear Calc Est GFR (MDRD) Af Amer Est GFR (MDRD) Non-Af BUN/Creatinine Ratio Glucose Lactic Acid 2.2 H* Calcium Total Bilirubin AST ALT Alkaline Phosphatase Total Creatine Kinase Troponin I 0.155 H 0.138 H Total Protein Albumin Globulin Albumin/Globulin Ratio Triglycerides Cholesterol LDL Cholesterol VLDL Cholesterol HDL Cholesterol Lipase TSH Urine Color Urine Clarity Urine pH Ur Specific [place] Urine Protein Urine Glucose (UA) Urine Ketones Urine Occult Blood Urine Nitrite Urine Bilirubin Urine Urobilinogen Ur Leukocyte Esterase Urine RBC Urine WBC Ur Squamous Epith Cells Urine Bacteria Urine Mucus Urine Opiates Screen Urine Methadone Screen Ur Barbiturates Screen Ur Phencyclidine Scrn Ur Amphetamines Screen U Methamphetamin-MDMA U Benzodiazepines Scrn Urine Cocaine Screen U Cannabinoids Screen Ur Drug Screen Comment Ethyl Alcohol COVID-19 (MELISA) 02/06/20 02/06/20 02/06/20 04:30 04:30 04:30 WBC 10.4 RBC 2.91 L Hgb 9.7 L Hct 30.4 L MCV 104.5 H MCH 33.3 H MCHC 31.9 L RDW Std Deviation 65.4 H RDW Coeff of Jonathan 17.3 H Plt Count 152 MPV 8.8 Immature Gran % (Auto) 0.700 Neut % (Auto) 85.5 H Lymph % (Auto) 6.7 L [place] % (Auto) 5.4 Eos % (Auto) 1.3 Baso % (Auto) 0.4 Absolute Neuts (auto) 8.9 H Absolute Lymphs (auto) 0.70 L Nucleated RBC % 0 Differential Comment SCANNED Hypochromasia RARE Anisocytosis 1+ Macrocytosis 1+ PT INR Sodium 142 Potassium 3.7 Chloride 110 H Carbon Dioxide 29.0 Anion Gap 3 L BUN 9 Creatinine 0.41 L Estim Creat Clear Calc 45.76 Est GFR (MDRD) Af Amer 196 Est GFR (MDRD) Non-Af 162 BUN/Creatinine Ratio 21.9 H Glucose 107 H Lactic Acid Calcium 7.3 L Total Bilirubin AST ALT Alkaline Phosphatase Total Creatine Kinase Troponin I Total Protein Albumin Globulin Albumin/Globulin Ratio Triglycerides 113 Cholesterol 143 LDL Cholesterol 74 VLDL Cholesterol 23 HDL Cholesterol 46 Lipase TSH 7.88 H Urine Color Urine Clarity Urine pH Ur Specific [place] Urine Protein Urine Glucose (UA) Urine Ketones Urine Occult Blood Urine Nitrite Urine Bilirubin Urine Urobilinogen Ur Leukocyte Esterase Urine RBC Urine WBC Ur Squamous Epith Cells Urine Bacteria Urine Mucus Urine Opiates Screen Urine Methadone Screen Ur Barbiturates Screen Ur Phencyclidine Scrn Ur Amphetamines Screen U Methamphetamin-MDMA U Benzodiazepines Scrn Urine Cocaine Screen U Cannabinoids Screen Ur Drug Screen Comment Ethyl Alcohol COVID-19 (MELISA) 02/07/20 02/07/20 05:20 05:20 WBC 11.2 H RBC 2.78 L Hgb 9.4 L Hct 28.9 L MCV 104.0 H MCH 33.8 H MCHC 32.5 RDW Std Deviation 62.7 H RDW Coeff of Jonathan 16.3 H Plt Count 146 L MPV 8.8 Immature Gran % (Auto) 1.000 H Neut % (Auto) 87.3 H Lymph % (Auto) 5.1 L [place] % (Auto) 6.0 Eos % (Auto) 0.2 Baso % (Auto) 0.4 Absolute Neuts (auto) 9.8 H Absolute Lymphs (auto) 0.57 L Nucleated RBC % 0 Differential Comment SCANNED Hypochromasia Anisocytosis Macrocytosis PT INR Sodium 139 Potassium 3.7 Chloride 107 Carbon Dioxide 27.0 Anion Gap 5 BUN 9 Creatinine 0.40 L Estim Creat Clear Calc 45.76 Est GFR (MDRD) Af Amer 201 Est GFR (MDRD) Non-Af 166 BUN/Creatinine Ratio 22.4 H Glucose 117 H Lactic Acid Calcium 7.6 L Total Bilirubin AST ALT Alkaline Phosphatase Total Creatine Kinase Troponin I Total Protein Albumin Globulin Albumin/Globulin Ratio Triglycerides Cholesterol LDL Cholesterol VLDL Cholesterol HDL Cholesterol Lipase TSH Urine Color Urine Clarity Urine pH Ur Specific [place] Urine Protein Urine Glucose (UA) Urine Ketones Urine Occult Blood Urine Nitrite Urine Bilirubin Urine Urobilinogen Ur Leukocyte Esterase Urine RBC Urine WBC Ur Squamous Epith Cells Urine Bacteria Urine Mucus Urine Opiates Screen Urine Methadone Screen Ur Barbiturates Screen Ur Phencyclidine Scrn Ur Amphetamines Screen U Methamphetamin-MDMA U Benzodiazepines Scrn Urine Cocaine Screen U Cannabinoids Screen Ur Drug Screen Comment Ethyl Alcohol COVID-19 (MELISA) Microbiology 02/05/20 12:00 Urine Catheter - Funk Urine Culture - Preliminary Presumptive E. coli Clinical Impression(s) from Imaging Studies Hip X-Ray 02/06/20 15:16 IMPRESSION: Expected early postoperative appearance after left total hip arthroplasty. Electronically Signed: Mario Espitia, at 18:57 EDT Tel , Service support , Medical Necessity - Tobacco Use Smoking Status: Current some day smoker Assessment/Plan All Active Problems Nausea & vomiting (Acute) Prolonged QT interval (Resolved) Fracture of femoral neck, left, closed (Acute) Severe sepsis (Acute) UTI (urinary tract infection) (Acute) Elevated troponin (Acute) Abnormal cardiac enzyme level (Acute) Preop cardiovascular exam (Acute) Gastroenteritis (Resolved) Hypomagnesemia (Resolved) Alcoholic hepatitis (Acute) Hypokalemia (Resolved) Alcoholic pancreatitis (Acute) RECOMMENDATIONS: 1. Consider narrowing of antibiotic spectrum once sensitivities available 2. Likely okay to discontinue IV fluids 3. Continue thiamine and folate. 4. Monitor for signs/symptoms of alcohol withdrawal. 5. Continue nicotine replacement therapy and empiric bronchodilator therapy. 6. Encourage incentive spirometer use while in bed and mobilize patient as tolerated. 7. Okay to leave the intensive care unit from my perspective IMPRESSIONS: 1. Severe sepsis secondary to E. coli UTI Patient growing greater than 100,000 CFU E. coli in the urine. On cefepime and cefazolin, but likely could be narrowed from an antibiotic spectrum once sensitivities are available. The patient has been adequately volume resuscitated and remains hemodynamically stable. 2. Elevated troponin Likely secondary to demand ischemia in the setting of #1. Cardiology is currently following. Echocardiogram is pending. 3. Acute left hip fracture status post fall Orthopedic surgery is following and plans for surgical intervention. 4. History of bipolar disorder/self-reported rheumatoid and psoriatic arthritis/history of alcohol and tobacco dependency Complicates care, management, recovery and prognosis. Continue thiamine and folate as noted above. Patient showing signs of alcohol withdrawal, but controlled with as needed Ativan. Continue per protocol. Continue nicotine replacement therapy while the patient is admitted to the hospital. The patient is currently maintaining appropriate oxygen saturations on room air. Inpatient E&M: [id number] [facility] Hosp L3
[2020-02-07] MEDS: Enoxaparin 40 MG/0.4 ML Syringe SC (08:22)
[2020-02-07] MEDS: Multivitamins,Ther W-Minerals Tablet 1 TABLET PO (08:23)
[2020-02-07] MEDS: Metoprolol Tartrate 25 MG Tablet 12.5 MG PO ×2 (08:23→20:50)
[2020-02-07] MEDS: Thiamine Hydrochloride 100 MG Tablet PO (08:23)
[2020-02-07] MEDS: Folic Acid 1 MG Tablet PO (08:23)
[2020-02-07] MEDS: Aspirin E.C. 81 MG Tablet PO (08:23)
[2020-02-07] MEDS: Acetaminophen 325 MG Tablet 650 MG PO ×2 (09:28→17:14)
--- NOTE | 2020-02-07 09:58 | CASEMGMT ---
RN CM Note: patient is POD #1 ORIF of femoral neck fracture. PT/OT evaluations today, and anticipate patient will need short term stay @ SNF prior to dc. DC Plan: undetermined. SW consult for possible SNF placement. Tyree KING RN ACM
[2020-02-07] MEDS: Senna/Docusate Sodium 1 Tablet 2 TABLET PO ×2 (10:17→20:50)
--- NOTE | 2020-02-07 11:59 | PN_ITS ---
Patient Problems: Active and Suspected Problems Fracture of femoral neck, left, closed (Acute) Severe sepsis (Acute) UTI (urinary tract infection) (Acute) Elevated troponin (Acute) Abnormal cardiac enzyme level (Acute) Preop cardiovascular exam (Acute) Subjective: Doing well today, pain in her left leg is controlled today. Vitals/I&O's: Vital Signs Temp Pulse Resp BP Pulse Ox 98.8 F 58 L 18 116/61 18 02/07/20 10:00 02/07/20 11:00 02/07/20 11:00 02/07/20 11:00 02/07/20 11:00 Oxygen Delivery Method Room Air Weight: 137 lb 2.04 oz Body Mass Index (BMI) 22.1 Finger Stick Blood Glucose 103 Intake and Output for Last 24 Hours 02/05/20 02/06/20 02/07/20 23:59 23:59 23:59 Intake Total 4674.75 / 4674.75 850.25 / 850.25 270 / 270 Output Total 446 / 446 1575 / 1725 395 / 395 Balance 4228.75 / 4228.75 -724.75 / -874.75 -125 / -125 General: Alert, Oriented x3, Cooperative, No apparent distress HEENT: Atraumatic, PERRLA, EOMI, Normocephalic Oral: Moist Mucosa Neck: Supple, No JVD Lungs: Clear to auscultation, Normal air movement, No rhonchi, No wheeze, No rales, Diminished Cardiovascular: Regular rate, Regular Rhythm, Normal S1, Normal S2, No murmurs Abdomen: Soft, Non Tender, Non-Distended, No Hepato-splenomegaly Extremities: No edema, Capillary Refill Less than 3 Seconds Skin: No rashes, No breakdown, Incision - CDI Neurological: Neuro grossly intact, Sensory exam intact to light touch and pain Psych/Mental Status: Normal Affect, Appropriate Microbiology Past 72 Hours 02/05/20 11:00 Blood Culture (Wb) - Anticubital Right Blood Culture - Preliminary 02/05/20 12:00 Urine Catheter - Funk Urine Culture - Final Presumptive E. coli Laboratory Results 02/07/20 05:20: WBC 11.2 H, RBC 2.78 L, Hgb 9.4 L, Hct 28.9 L, MCV 104.0 H, MCH 33.8 H, MCHC 32.5, RDW Std Deviation 62.7 H, RDW Coeff of Jonathan 16.3 H, Plt Count 146 L, MPV 8.8, Immature Gran % (Auto) 1.000 H, Neut % (Auto) 87.3 H, Lymph % (Auto) 5.1 L, Grainger % (Auto) 6.0, Eos % (Auto) 0.2, Baso % (Auto) 0.4, Absolute Neuts (auto) 9.8 H, Absolute Lymphs (auto) 0.57 L, Nucleated RBC % 0, Differential Comment SCANNED 02/07/20 05:20: Sodium 139, Potassium 3.7, Chloride 107, Carbon Dioxide 27.0, Anion Gap 5, BUN 9, Creatinine 0.40 L, Estim Creat Clear Calc 45.76, Est GFR (MDRD) Af Amer 201, Est GFR (MDRD) Non-Af 166, BUN/Creatinine Ratio 22.4 H, Glucose 117 H, Calcium 7.6 L Current Medications Acetaminophen (Tylenol) 650 mg PO Q6H PRN PRN PRN Reason: Pain Score 1-10/Temp > 100.7 F Last Admin: 02/07/20 09:28 Dose: 650 mg Documented by: Albuterol/Ipratropium (Duoneb) 3 ml INHALATION Q6HWA.RT [facility] Last Admin: 02/07/20 06:30 Dose: 3 ml Documented by: Aspirin (Ecotrin) 81 mg PO DAILY@0800 [facility] Last Admin: 02/07/20 08:23 Dose: 81 mg Documented by: Dicyclomine HCl (Bentyl) 20 mg PO Q6H PRN PRN PRN Reason: abdominal discomfort Enoxaparin Sodium (Lovenox) 40 mg SC DAILY [facility] Last Admin: 02/07/20 08:22 Dose: 40 mg Documented by: Folic Acid (Folic Acid) 1 mg PO DAILY@0800 [facility] Last Admin: 02/07/20 08:23 Dose: 1 mg Documented by: Gabapentin (Neurontin) 300 mg PO Q8H PRN PRN PRN Reason: moderate to severe anxiety Hydroxyzine Pamoate (Vistaril Pamoate Capsule) 50 mg PO Q4H PRN PRN PRN Reason: mild anxiety Cefepime HCl 2 gm/ Sodium (Chloride) 100 mls @ 200 mls/hr IV Q8 [facility] Last Infusion: 02/07/20 06:03 Dose: Infused Documented by: Sodium Chloride () 250 mls @ 15 mls/hr IV .[id number] PRN PRN Reason: Saline Flush Last Infusion: 02/06/20 15:05 Dose: Infused Documented by: Sodium Chloride () 250 mls @ 15 mls/hr IV .[id number] PRN PRN Reason: Additional IVPB Infusion Loperamide HCl (Imodium) 2 mg PO Q4H PRN PRN PRN Reason: LOOSE STOOLS Lorazepam (Ativan) 2 mg PO Q2H PRN PRN; Protocol PRN Reason: CIWA score > 8 but <15 Lorazepam (Ativan) 2 mg PO UD PRN; Protocol PRN Reason: CIWA score >/=15. Lorazepam (Ativan) 2 mg IV Q2H PRN PRN; Protocol PRN Reason: CIWA score > 8 but <15 Lorazepam (Ativan) 2 mg IV UD PRN; Protocol PRN Reason: CIWA score >/=15. Lorazepam (Ativan) 1 mg PO Q4H [facility]; Taper Stop: 02/10/20 00:59 Last Admin: 02/07/20 08:22 Dose: 1 mg Documented by: Metoprolol Tartrate (Lopressor (Beta Terry)) 12.5 mg PO BID [facility] Last Admin: 02/07/20 08:23 Dose: 12.5 mg Documented by: Morphine Sulfate () 4 mg IV Q3H PRN PRN PRN Reason: Pain Score 6-10/10 Last Admin: 02/07/20 03:40 Dose: 4 mg Documented by: Multivitamins/Minerals ([facility]ivitamin With Minerals (Bkc)) [facility] Last Admin: 02/07/20 08:23 Dose: 1 tablet Documented by: Nicotine (Nicoderm Cq (Pbkc)) 14 mg TRANSDERM. DAILY [facility] Last Admin: 02/07/20 08:22 Dose: 14 mg Documented by: Nitroglycerin (Nitrostat) 0.4 mg SUBLINGUAL Q5M PRN PRN Reason: CARDIAC/CHEST PAIN Ondansetron HCl (Zofran) 4 mg IV Q8H PRN PRN PRN Reason: NAUSEA/VOMITING Last Admin: 02/06/20 09:04 Dose: 4 mg Documented by: Ondansetron HCl (Zofran) 8 mg PO Q8H PRN PRN PRN Reason: NAUSEA Oxycodone HCl (Oxyir) 5 mg PO Q4H PRN PRN PRN Reason: Pain Score 4-5/10 Senna/Docusate Sodium (Senokot-S, Emely-Colace) 2 tablet PO BID [facility] Last Admin: 02/07/20 10:17 Dose: 2 tablet Documented by: Sodium Chloride () 10 - 40 ml IV UD PRN PRN Reason: SALINE FLUSH Last Admin: 02/06/20 09:06 Dose: 10 ml Documented by: Thiamine HCl (Vitamin B1) 100 mg PO DAILYCM [facility] Last Admin: 02/07/20 08:23 Dose: 100 mg Documented by: Trazodone HCl (Desyrel) 100 mg PO QHS PRN PRN Reason: INSOMNIA STROKE Vital Signs/Narrative: Vital Signs Temp Pulse Resp BP BP Pulse Ox 02/07/20 11:00 58 L 18 116/61 18 02/07/20 10:00 98.8 F 94 18 93/43 L 94 02/07/20 09:00 117 H 19 H 132/61 H 98 02/07/20 08:23 98 121/64 H 02/07/20 08:00 90 16 96 Medical Necessity - Tobacco Use Smoking Status: Current some day smoker Assessment/Plan All Active Problems Nausea & vomiting (Acute) Prolonged QT interval (Resolved) Fracture of femoral neck, left, closed (Acute) Severe sepsis (Acute) UTI (urinary tract infection) (Acute) Elevated troponin (Acute) Abnormal cardiac enzyme level (Acute) Preop cardiovascular exam (Acute) Gastroenteritis (Resolved) Hypomagnesemia (Resolved) Alcoholic hepatitis (Acute) Hypokalemia (Resolved) Alcoholic pancreatitis (Acute) 1. Severe sepsis secondary to E. coli UTI -Sepsis has resolved -Transition to p.o. Keflex, she was on cefepime -Pansensitive 2. Acute fracture of the left hip secondary to mechanical fall postop 02/06/2020 -Continue with pain management -Dressing is intact -PT/OT 3. Alcohol abuse -Had a long discussion with her and she does not want to quit drinking -Therefore will provide her with some beers with meals to prevent withdrawal 4. Indeterminate troponin -She had a slight elevation in troponin without any ST changes on her EKG, this was felt to be secondary to demand ischemia from her sepsis -Cardiology evaluated the EKG and felt that she was good for surgery, quick bedside echo prior to surgery demonstrated decent wall motion -Full echo pending -Continue with aspirin DVT: Lindyx Inpatient E&M: 64611 Subs Hosp L2
--- NOTE | 2020-02-07 13:57 | CASEMGMT ---
Consult put in for SW to see patient for possible SNF placement. SW already involved see assessment completed by SW on 02-04. At this time SW is waiting on PT/OT evaluations to talk with patient. Zoe ALVAREZ MSW
[2020-02-07] MEDS: Cephalexin 500 MG Capsule PO ×2 (17:12→20:53)
[2020-02-07] MEDS: oxyCODONE 5 MG Tablet PO (17:14)
--- NOTE | 2020-02-07 17:32 | PCM.PN.CARD ---
Subjectve: The patient is status post orthopedic surgery. She has no new acute symptoms/concerns from a cardiovascular standpoint at this time. Objective: Vital Signs Temp Pulse Resp BP Pulse Ox 97.9 F 105 H 18 120/60 100 02/07/20 15:13 02/07/20 15:13 02/07/20 15:13 02/07/20 15:13 02/07/20 15:13 Oxygen Delivery Method Room Air Weight: 137 lb 2.04 oz Body Mass Index (BMI) 22.1 Finger Stick Blood Glucose 103 Intake and Output for Last 24 Hours 02/05/20 02/06/20 02/07/20 23:59 23:59 23:59 Intake Total 4674.75 / 4674.75 850.25 / 850.25 370 / 370 Output Total 446 / 446 1575 / 1725 395 / 395 Balance 4228.75 / 4228.75 -724.75 / -874.75 -25 / -25 General: Awake, Alert, Oriented x 3, Cooperative, No Acute Distress HEENT: Atraumatic, Normocephalic, PERRL, EOMI, Sclera Non Icteric Neck: Supple, Good ROM, No JVD Lungs: Clear to auscultation Cardiovascular: Regular Rhythm, Normal S1, Normal S2 Abdomen: Bowel Sounds Present, Soft Extremities: No edema Psych/Mental Status: Appropriate 02/07/20 05:20: WBC 11.2 H, RBC 2.78 L, Hgb 9.4 L, Hct 28.9 L, MCV 104.0 H, MCH 33.8 H, MCHC 32.5, Plt Count 146 L, MPV 8.8, Immature Gran % (Auto) 1.000 H, Neut % (Auto) 87.3 H, Lymph % (Auto) 5.1 L, Evangeline % (Auto) 6.0, Eos % (Auto) 0.2, Baso % (Auto) 0.4, Absolute Neuts (auto) 9.8 H, Nucleated RBC % 0 02/07/20 05:20: Sodium 139, Potassium 3.7, Chloride 107, Carbon Dioxide 27.0, Anion Gap 5, BUN 9, Creatinine 0.40 L, Est GFR (MDRD) Af Amer 201, Est GFR (MDRD) Non-Af 166, BUN/Creatinine Ratio 22.4 H, Glucose 117 H, Calcium 7.6 L ECHO: Interpretation Summary The study was technically difficult. Contrast injection was performed. Left ventricular systolic function is normal. The estimated ejection fraction is 70 %. Mild (1+) mitral valve insufficiency. Trivial tricuspid valve insufficiency. Unable to estimate RV systolic pressure/pulmonary artery pressure due to technically difficult study. Transmitral diastolic flow velocities suggest diastolic dysfunction (pseudonormal pattern). Medical Necessity - Tobacco Use Smoking Status: Current some day smoker Assessment/Plan 1. Abnormal cardiac enzyme level The patient does have an abnormal cardiac enzyme level. Her cardiac enzymes have decreased. She does not present with symptoms considered classic for an acute coronary syndrome. Her cardiac enzyme level may be elevated in a type II fashion from a supply demand mismatch being related to her other ongoing medical issue which could be her sepsis syndrome. At the moment she appears without any acute cardiovascular symptoms. Her echocardiogram is as noted. She is now status post orthopedic surgery without any obvious adverse cardiovascular events. Present time she will continue medical therapy with adjustment as deemed appropriate. There are no immediate plans for additional cardiac diagnostic studies/therapeutic intervention at this time. 2. UTI/sepsis The patient has been diagnosed with a UTI and a sepsis syndrome based upon her clinical scenario and her objective findings. She is undergoing evaluation care per internal medicine and pulmonology/critical care medicine. She has been placed on antibiotic therapy. 3. Left hip fracture She does have a left hip fracture. He is now status post her orthopedic surgery procedure. She will continue evaluation care per internal medicine and orthopedic surgery. This note was generated using a voice recognition system and there may be incorrect words, spelling or punctuation that were not noted when reviewing the office note prior to saving.
[2020-02-08] VITALS (11 sets, daily range): BP systolic 117–154; BP diastolic 58–90; PULSE 87–111; RESP 14–22; TEMP 36.6–37.1; O2SAT 97–99
[2020-02-08] MEDS: Acetaminophen 325 MG Tablet 650 MG PO ×2 (01:06→19:47)
[2020-02-08] MEDS: LORazepam 1 MG Tablet 0.5 MG PO ×3 (01:06→13:56)
[2020-02-08] MEDS: oxyCODONE 5 MG Tablet PO ×3 (02:58→17:11)
[2020-02-08] MEDS: Cephalexin 500 MG Capsule PO ×4 (05:46→23:55)
[2020-02-08] MEDS: Ipratropium/Albuterol Sulfate 3 ML AMPUL.NEB INHALATION ×2 (07:29→19:30)
[2020-02-08] MEDS: Morphine 4 MG/ML Syringe IV (08:03)
[2020-02-08] MEDS: 0.9% Saline Lock 10 ML Syringe IV ×4 (08:03→21:16)
[2020-02-08] MEDS: Aspirin E.C. 81 MG Tablet PO (08:05)
[2020-02-08] MEDS: Thiamine Hydrochloride 100 MG Tablet PO (08:06)
[2020-02-08] MEDS: Folic Acid 1 MG Tablet PO (08:06)
[2020-02-08] MEDS: Multivitamins,Ther W-Minerals Tablet 1 TABLET PO (08:06)
--- NOTE | 2020-02-08 09:04 | PN_ITS ---
Subjective: Patient transferred out of the intensive care unit yesterday. Patient did well overnight and feels subjectively improved compared to previous. Patient is still reporting some leg pain, but has remained hemodynamically stable on room air. General: Alert, Oriented x3, Cooperative, No apparent distress, - - Speaking in full sentences HEENT: Atraumatic, PERRLA, EOMI, Normocephalic, - - No scleral icterus or injection noted Oral: Moist Mucosa, No Gingival or Mucosal Lesions/ Ulcerations, - - Tolerating pur?ed breakfast on my evaluation Neck: Supple, No JVD, No Nodes, Trachea Midline Lungs: Clear to auscultation, Normal air movement, No rhonchi, No wheeze, No rales Cardiovascular: Regular rate, Regular Rhythm, Normal S1, Normal S2, No murmurs, No rub noted, No Gallop Abdomen: Bowel Sounds Present, Soft, Non Tender, Non-Distended Extremities: No clubbing, No cyanosis, No edema, Capillary Refill Less than 3 Seconds Skin: - - No change compared to previous Musculoskeletal: No Tenderness to Palpation of Joints or Extremities Lymphatic: No Cervical, Supraclavicular, or Inguinal Adenopathy Neurological: Cranial nerves II-XII grossly intact, Neuro grossly intact, Motor Exam 5/5 strength throughout Psych/Mental Status: Anxious Vital Signs Temp Pulse Resp BP Pulse Ox 36.7 C 105 H 18 151/72 H 98 02/08/20 07:58 02/08/20 07:58 02/08/20 07:58 02/08/20 07:58 02/08/20 07:58 Oxygen Delivery Method Room Air Weight: 62.2 kg Body Mass Index (BMI) 22.1 Finger Stick Blood Glucose 103 Intake and Output for Last 24 Hours 02/06/20 02/07/20 02/08/20 23:59 23:59 23:59 Intake Total 850.25 / 850.25 520 / 520 150 / 150 Output Total 1575 / 1725 870 / 870 475 / 475 Balance -724.75 / -874.75 -350 / -350 -325 / -325 Labs (Last 48 Hours) 02/06/20 02/07/20 02/07/20 04:30 05:20 05:20 WBC 11.2 H RBC 2.78 L Hgb 9.4 L Hct 28.9 L MCV 104.0 H MCH 33.8 H MCHC 32.5 RDW Std Deviation 62.7 H RDW Coeff of Jonathan 16.3 H Plt Count 146 L MPV 8.8 Immature Gran % (Auto) 1.000 H Neut % (Auto) 87.3 H Lymph % (Auto) 5.1 L [place] % (Auto) 6.0 Eos % (Auto) 0.2 Baso % (Auto) 0.4 Absolute Neuts (auto) 9.8 H Absolute Lymphs (auto) 0.57 L Nucleated RBC % 0 Differential Comment SCANNED Sodium 139 Potassium 3.7 Chloride 107 Carbon Dioxide 27.0 Anion Gap 5 BUN 9 Creatinine 0.40 L Estim Creat Clear Calc 45.76 Est GFR (MDRD) Af Amer 201 Est GFR (MDRD) Non-Af 166 BUN/Creatinine Ratio 22.4 H Glucose 117 H Calcium 7.6 L TSH 7.88 H Microbiology 02/05/20 11:00 Blood Culture (Wb) - Anticubital Right Bacteria Detection (PCR) - Final Coag Negative Staph 02/05/20 11:00 Blood Culture (Wb) - Anticubital Right Blood Culture - Preliminary Coag Negative Staph 02/05/20 12:00 Urine Catheter - Funk Urine Culture - Final Presumptive E. coli Medical Necessity - Tobacco Use Smoking Status: Current some day smoker Assessment/Plan All Active Problems Nausea & vomiting (Acute) Prolonged QT interval (Resolved) Fracture of femoral neck, left, closed (Acute) Severe sepsis (Acute) UTI (urinary tract infection) (Acute) Elevated troponin (Acute) Abnormal cardiac enzyme level (Acute) Preop cardiovascular exam (Acute) Gastroenteritis (Resolved) Hypomagnesemia (Resolved) Alcoholic hepatitis (Acute) Hypokalemia (Resolved) Alcoholic pancreatitis (Acute) RECOMMENDATIONS: 1. Agree with current antibiotic selection 2. Await blood culture results. Doubt coag negative staph is pathogen 3. Continue thiamine and folate. 4. Monitor for signs/symptoms of alcohol withdrawal. 5. Continue nicotine replacement therapy and empiric bronchodilator therapy. 6. Hemodynamically stable on room air. Will sign off from a critical care perspective IMPRESSIONS: 1. Severe sepsis secondary to E. coli UTI Patient growing greater than 100,000 CFU E. coli in the urine. Patient on appropriate antibiotics at this point. Doubt blood culture represents true pathogen. Patient remains hemodynamically stable on room air. Will sign off from a critical care perspective. The patient has been adequately volume resuscitated and remains hemodynamically stable. 2. Elevated troponin Likely secondary to demand ischemia in the setting of #1. Cardiology is currently following. Echocardiogram is pending. 3. Acute left hip fracture status post fall Orthopedic surgery is following and patient tolerated surgical intervention well. 4. History of bipolar disorder/self-reported rheumatoid and psoriatic arthritis/history of alcohol and tobacco dependency Complicates care, management, recovery and prognosis. Continue thiamine and folate as noted above. Patient showing signs of alcohol withdrawal, but controlled with as needed Ativan. Continue per protocol. Continue nicotine replacement therapy while the patient is admitted to the hospital. The patient is currently maintaining appropriate oxygen saturations on room air. Inpatient E&M: 90100 Subs Hosp L2
--- NOTE | 2020-02-08 09:13 | PN.CARD_ITS ---
Subjectve: The patient is awake and alert. She denied any ongoing chest discomfort or obvious shortness of breath/dyspnea. Her main concern includes her hip di scomfort. Objective: Vital Signs Temp Pulse Resp BP Pulse Ox 98.0 F 105 H 18 151/72 H 98 02/08/20 07:58 02/08/20 07:58 02/08/20 07:58 02/08/20 07:58 02/08/20 07:58 Oxygen Delivery Method Room Air Weight: 137 lb 2.04 oz Body Mass Index (BMI) 22.1 Finger Stick Blood Glucose 103 Intake and Output for Last 24 Hours 02/06/20 02/07/20 02/08/20 23:59 23:59 23:59 Intake Total 850.25 / 850.25 520 / 520 150 / 150 Output Total 1575 / 1725 870 / 870 475 / 475 Balance -724.75 / -874.75 -350 / -350 -325 / -325 General: Awake, Alert, Oriented x 3, Cooperative HEENT: Atraumatic, Normocephalic, PERRL, EOMI, Sclera Non Icteric Neck: Supple, Good ROM, No JVD Lungs: Clear to auscultation Cardiovascular: Regular Rhythm, Normal S1, Normal S2 Abdomen: Bowel Sounds Present, Soft Extremities: No edema Psych/Mental Status: Appropriate Medical Necessity - Tobacco Use Smoking Status: Current some day smoker Assessment/Plan 1. Abnormal cardiac enzyme level The patient does have an abnormal cardiac enzyme level. Her cardiac enzymes have decreased. She does not present with symptoms considered classic for an acute coronary syndrome. Her cardiac enzyme level may be elevated in a type II fashion from a supply demand mismatch being related to her other ongoing medical issue which could be her sepsis syndrome. At the moment she appears without any acute cardiovascular symptoms. Her echocardiogram is as noted. She is now status post orthopedic surgery without any obvious adverse cardiovascular events. She will continue medical therapy. Her medications will be adjusted as needed. There are no immediate plans for additional cardiac diagnostic studies/therapeutic intervention at this time. 2. UTI/sepsis The patient has been diagnosed with a UTI and a sepsis syndrome based upon her clinical scenario and her objective findings. She is undergoing evaluation care per internal medicine and pulmonology/critical care medicine. She has been placed on antibiotic therapy. 3. Left hip fracture She does have a left hip fracture. He is now status post her orthopedic surgery procedure. She will continue evaluation care per internal medicine and orthopedic surgery. This note was generated using a voice recognition system and there may be incorrect words, spelling or punctuation that were not noted when reviewing the office note prior to saving.
[2020-02-08] MEDS: Metoprolol Tartrate 25 MG Tablet PO ×2 (10:43→21:15)
[2020-02-08] MEDS: Enoxaparin 40 MG/0.4 ML Syringe SC (10:46)
[2020-02-08] MEDS: Phenobarbital 32.4 MG Tablet 97.2 MG PO ×4 (10:47→23:55)
[2020-02-08] MEDS: Senna/Docusate Sodium 1 Tablet 2 TABLET PO ×2 (10:47→21:15)
[2020-02-08] MEDS: Ondansetron 4 MG/2 ML Vial IV (10:58)
--- NOTE | 2020-02-08 11:43 | CASEMGMT ---
Social Work Note SW reviewed PT/OT notes, Pt was max assist of 2. SW in to speak with pt. SW updated pt that PT/OT pt is max assist of two and recommendation is SNF. Pt agreeable to SNF. Pt states she has been to [facility] before and is agreeable to referral being sent to [facility]. SW provided pt with list of SNF that accept pt's insurance. Pt states still agreeable to referral being sent to [facility]. SW updated that physician has discontinued pt's beer with meals and pt will be going through alcohol withdrawal while at [facility]. SAM placed a call to Marie at [facility] and updated her on referral. SW faxed referral. Plan: SNF pending acceptance Jeanette Wright [employer], [employer]
--- NOTE | 2020-02-08 12:18 | PN_ITS ---
Patient Problems: Active and Suspected Problems Fracture of femoral neck, left, closed (Acute) Severe sepsis (Acute) UTI (urinary tract infection) (Acute) Elevated troponin (Acute) Abnormal cardiac enzyme level (Acute) Preop cardiovascular exam (Acute) Subjective: Feels better, still with significant left hip pain but denies any chest pain shortness of breath or dizziness Vitals/I&O's: Vital Signs Temp Pulse Resp BP Pulse Ox 98.7 F 111 H 16 121/58 H 97 02/08/20 11:17 02/08/20 11:17 02/08/20 11:17 02/08/20 11:17 02/08/20 11:17 Oxygen Delivery Method Room Air Weight: 137 lb 2.04 oz Body Mass Index (BMI) 22.1 Finger Stick Blood Glucose 103 Intake and Output for Last 24 Hours 02/06/20 02/07/20 02/08/20 23:59 23:59 23:59 Intake Total 850.25 / 850.25 520 / 520 150 / 150 Output Total 1575 / 1725 870 / 870 475 / 475 Balance -724.75 / -874.75 -350 / -350 -325 / -325 General: Alert, Oriented x3, Cooperative, No apparent distress HEENT: Atraumatic, PERRLA, EOMI, Normocephalic Oral: Moist Mucosa Neck: Supple, No JVD Lungs: Clear to auscultation, Normal air movement, No rhonchi, No wheeze, No rales, Diminished Cardiovascular: Regular rate, Regular Rhythm, Normal S1, Normal S2, No murmurs Abdomen: Soft, Non Tender, Non-Distended, No Hepato-splenomegaly Extremities: No edema, Capillary Refill Less than 3 Seconds Skin: No rashes, No breakdown, Incision - CDI Neurological: Neuro grossly intact, Sensory exam intact to light touch and pain Psych/Mental Status: Normal Affect, Appropriate Microbiology Past 72 Hours 02/05/20 11:00 Blood Culture (Wb) - Anticubital Right Bacteria Detection (PCR) - Final Coag Negative Staph 02/05/20 11:00 Blood Culture (Wb) - Anticubital Right Blood Culture - Preliminary Coag Negative Staph 02/05/20 12:00 Urine Catheter - Funk Urine Culture - Final Presumptive E. coli Current Medications Acetaminophen (Tylenol) 650 mg PO Q6H PRN PRN PRN Reason: Pain Score 1-10/Temp > 100.7 F Last Admin: 02/08/20 01:06 Dose: 650 mg Documented by: Albuterol/Ipratropium (Duoneb) 3 ml INHALATION Q6HWA.RT [facility] Last Admin: 02/08/20 07:29 Dose: 3 ml Documented by: Aspirin (Ecotrin) 81 mg PO DAILY@0800 [facility] Last Admin: 02/08/20 08:05 Dose: 81 mg Documented by: Cephalexin (Keflex) 500 mg PO Q6 [facility] Last Admin: 02/08/20 11:00 Dose: 500 mg Documented by: Dicyclomine HCl (Bentyl) 20 mg PO Q6H PRN PRN PRN Reason: abdominal discomfort Enoxaparin Sodium (Lovenox) 40 mg SC DAILY [facility] Last Admin: 02/08/20 10:46 Dose: 40 mg Documented by: Folic Acid (Folic Acid) 1 mg PO DAILY@0800 [facility] Last Admin: 02/08/20 08:06 Dose: 1 mg Documented by: Gabapentin (Neurontin) 300 mg PO Q8H PRN PRN PRN Reason: moderate to severe anxiety Hydroxyzine Pamoate (Vistaril Pamoate Capsule) 50 mg PO Q4H PRN PRN PRN Reason: mild anxiety Sodium Chloride () 250 mls @ 15 mls/hr IV .[id number] PRN PRN Reason: Saline Flush Last Infusion: 02/06/20 15:05 Dose: Infused Documented by: Sodium Chloride () 250 mls @ 15 mls/hr IV .[id number] PRN PRN Reason: Additional IVPB Infusion Loperamide HCl (Imodium) 2 mg PO Q4H PRN PRN PRN Reason: LOOSE STOOLS Lorazepam (Ativan) 2 mg PO Q2H PRN PRN; Protocol PRN Reason: CIWA score > 8 but <15 Lorazepam (Ativan) 2 mg PO UD PRN; Protocol PRN Reason: CIWA score >/=15. Lorazepam (Ativan) 2 mg IV Q2H PRN PRN; Protocol PRN Reason: CIWA score > 8 but <15 Lorazepam (Ativan) 2 mg IV UD PRN; Protocol PRN Reason: CIWA score >/=15. Lorazepam (Ativan) 1 mg PO Q6H [facility]; Taper Stop: 02/10/20 00:59 Last Admin: 02/08/20 05:48 Dose: 1 mg Documented by: Metoprolol Tartrate (Lopressor (Beta Terry)) 25 mg PO BID [facility] Last Admin: 02/08/20 10:43 Dose: 25 mg Documented by: Morphine Sulfate () 4 mg IV Q3H PRN PRN PRN Reason: Pain Score 6-10/10 Last Admin: 02/08/20 08:03 Dose: 4 mg Documented by: Multivitamins/Minerals ([facility])) [facility] Admin: 02/08/20 08:06 Dose: 1 tablet Documented by: Nicotine (Nicoderm Cq (Pbkc)) 14 mg TRANSDERM. DAILY [facility] Last Admin: 02/08/20 10:51 Dose: 14 mg Documented by: Nitroglycerin (Nitrostat) 0.4 mg SUBLINGUAL Q5M PRN PRN Reason: CARDIAC/CHEST PAIN Ondansetron HCl (Zofran) 4 mg IV Q8H PRN PRN PRN Reason: NAUSEA/VOMITING Last Admin: 02/08/20 10:58 Dose: 4 mg Documented by: Ondansetron HCl (Zofran) 8 mg PO Q8H PRN PRN PRN Reason: NAUSEA Oxycodone HCl (Oxyir) 5 mg PO Q4H PRN PRN PRN Reason: Pain Score 4-5/10 Last Admin: 02/08/20 10:57 Dose: 5 mg Documented by: Phenobarbital (Phenobarbital) 97.2 mg PO Q4H [facility]; Taper Stop: 02/12/20 16:14 Last Admin: 02/08/20 10:47 Dose: 97.2 mg Documented by: Senna/Docusate Sodium (Senokot-S, Emely-Colace) 2 tablet PO BID [facility] Last Admin: 02/08/20 10:47 Dose: 2 tablet Documented by: Sodium Chloride () 10 - 40 ml IV UD PRN PRN Reason: SALINE FLUSH Last Admin: 02/08/20 10:58 Dose: 10 ml Documented by: Thiamine HCl ([facility]itamin B1) [facility] Last Admin: 02/08/20 08:06 Dose: 100 mg Documented by: Trazodone HCl (Desyrel) 100 mg PO QHS PRN PRN Reason: INSOMNIA STROKE Vital Signs/Narrative: Vital Signs Temp Pulse Resp BP Pulse Ox 02/08/20 11:17 98.7 F 111 H 16 121/58 H 97 02/08/20 10:43 111 H 121/58 H Medical Necessity - Tobacco Use Smoking Status: Current some day smoker Assessment/Plan All Active Problems Nausea & vomiting (Acute) Prolonged QT interval (Resolved) Fracture of femoral neck, left, closed (Acute) Severe sepsis (Acute) UTI (urinary tract infection) (Acute) Elevated troponin (Acute) Abnormal cardiac enzyme level (Acute) Preop cardiovascular exam (Acute) Gastroenteritis (Resolved) Hypomagnesemia (Resolved) Alcoholic hepatitis (Acute) Hypokalemia (Resolved) Alcoholic pancreatitis (Acute) 1. Severe sepsis secondary to E. coli UTI -Sepsis has resolved, urine is secondary to E. coli however she did have a coag negative staph in 1 out of 4 blood culture bottles. Repeat blood cultures are still pending. We will continue with Keflex however this is highly likely to be a contaminant and therefore we will continue to treat the E. coli, the Keflex will help with a contaminant as well -Transition to p.o. Keflex, she was on cefepime -Pansensitive 2. Acute fracture of the left hip secondary to mechanical fall postop 02/06/2020 -Continue with pain management -Dressing is intact -PT/OT 3. Alcohol abuse -In order to go to a [facility] facility for rehab she will have to go through withdrawal -We will place her on a phenobarbital taper pending placement, she currently does not have any alcohol withdrawal symptoms 4. Indeterminate troponin -She had a slight elevation in troponin without any ST changes on her EKG, this was felt to be secondary to demand ischemia from her sepsis -Cardiology evaluated the EKG and felt that she was good for surgery, quick bedside echo prior to surgery demonstrated decent wall motion -Echo with an EF of 70% with no significant diastolic dysfunction -Continue with aspirin -Appreciate cardiology input DVT: Lovenox Inpatient E&M: 17646 Subs Hosp L2
[2020-02-09] VITALS (7 sets, daily range): BP systolic 122–148; BP diastolic 74–86; PULSE 93–107; RESP 16–20; TEMP 36.6–37; O2SAT 93–99
[2020-02-09] MEDS: oxyCODONE 5 MG Tablet PO ×2 (03:28→07:46)
[2020-02-09] MEDS: Phenobarbital 32.4 MG Tablet 97.2 MG PO ×3 (03:29→12:13)
[2020-02-09 05:18] LABS: Hematocrit 28.9 % (37-47); Hemoglobin 9.5 g/dL (12.0-15.0); Mean Corp Hgb Conc 32.9 g/dL (32-36); Mean Corpuscular Hgb 34.3 pg (27.0-32.0); Mean Corpuscular Volume 104.3 fL (81-99); Mean Platelet Vol. 8.8 fl (6.2-12.0); POSITIVE COUNT YES; POSITIVE MORPHOLOGY YES; Platelet Count 186 K/mm3 (150-450); RBC Distribution Width CV 16.9 % (11.6-14.6); RBC Distribution Width SD 65.1 fl (35.1-43.9); Red Blood Count 2.77 M/mm3 (4.2-5.4); White Blood Count 10.7 K/mm3 (4.4-11.0)
[2020-02-09 05:19] LABS: Differential Indicated MANUAL DIFF
[2020-02-09 05:31] LABS: Anion Gap 4 (5-15); BUN 6 mg/dL (7-18); BUN/Creat Ratio 17.5 RATIO (10-20); Calcium,Total 8.2 mg/dL (8.5-10.1); Chloride 105 mmol/L (98-107); Creatinine, Serum 0.34 mg/dL (0.55-1.02); EST Glomerular Filtration Rate 199 mL/min (>60); Est Glom Filt Rate - Afr Amer 241 mL/min (>60); Estimated Creatinine Clearance 45.76 ml/min; Glucose 117 mg/dL (74-106); Potassium 3.4 mmol/L (3.5-5.1); Sodium Level 139 mmol/L (136-145)
[2020-02-09 05:43] LABS: Myelocyte 1 (0-0); Neutrophil-Band 8 % (0-5); Neutrophil-Segmented 77 % (47-70); Total Cells Counted 100 (MANUAL DIFF)
[2020-02-09] MEDS: Cephalexin 500 MG Capsule PO (05:47)
[2020-02-09 05:48] LABS: Eosinophil 2 % (0-5); Lymphocyte 9 % (19-41); Monocyte 3 % (0-10)
[2020-02-09 05:50] LABS: Anisocytosis 1+; Macrocytosis 1+; Platelet Estimate ADEQUATE (ADEQ)
[2020-02-09 05:51] LABS: Differential Comment SCANNED
[2020-02-09 05:52] LABS: Absolute Neutrophil Count 9.1 X10^3/uL (2.0-7.7)
[2020-02-09 05:53] LABS: Absolute Lymphocyte Count 0.96 X10^3/uL (0.83-4.51); Lymphocyte # 0.96 X10^3/ul (4.0)
[2020-02-09] MEDS: Ipratropium/Albuterol Sulfate 3 ML AMPUL.NEB INHALATION ×2 (06:57→13:46)
[2020-02-09] MEDS: Folic Acid 1 MG Tablet PO (07:45)
[2020-02-09] MEDS: Aspirin E.C. 81 MG Tablet PO (07:45)
[2020-02-09] MEDS: Thiamine Hydrochloride 100 MG Tablet PO (07:45)
[2020-02-09] MEDS: Multivitamins,Ther W-Minerals Tablet 1 TABLET PO (07:45)
--- NOTE | 2020-02-09 09:25 | CASEMGMT ---
Addendum entered by Jeanette Wright 02/09/20 12:07: SAM faxed completed discharge paperwork to [facility] including transfer to extended care facility, signed medication list, any scripts, COVID screening tool. Original in SNF folder and copy on pt's chart. SAM completed convalescent 7000 in [facility]. Original in SNF folder and copy on pt's chart. SAM [facility] to [facility] and arranged transportation via stretcher/cot for 3:30pm as that is the earliest [facility] transport pt today. SAM completed transportation form and placed on SNF folder and copy on pt's chart. SAM placed a call to Marie at [facility] and updated her on transportation time. SW updated RN and pt on discharge and transportation. Pt confirms is still agreeable to [facility]. Plan: [facility] skilled today with [facility] transporting at 3:30pm RHONDA Begum Original Note: Social Work Note SW received call from Marie at [facility] stating they are able to accept pt today. SAM informed Marie that pt should be medically ready for discharge today. Plan: [facility] today RHONDA Begum
[2020-02-09] MEDS: Senna/Docusate Sodium 1 Tablet 2 TABLET PO (10:13)
[2020-02-09] MEDS: Metoprolol Tartrate 25 MG Tablet PO (10:14)
[2020-02-09] MEDS: Enoxaparin 40 MG/0.4 ML Syringe SC (10:14)
--- NOTE | 2020-02-09 10:53 | PCM.TXEXTCAR ---
- Diet 02/07/20 15:34 Diet: Regular - General Type of Dietary Supplement:: Ensure Clear Is pt able to select menu?: No - Routine Orders/Code Status Routine Lab Work: [facility] Code Status: Full Code - Wound(s) toe to right foot Wound Type: blister bilateral knees Wound Type: Abrasion Right hip Wound Type: Abrasion left hip Wound Type: Surgical Incision - Therapies Weight Bearing: Weight bearing as tolerated Physical Therapy: Eval and Treat Occupational Therapy: Eval and Treat - Allergies/Procedures Done in Hospital Allergies/Adverse Reactions: Allergies nickel [Nickel] Allergy (Verified 12/02/19 13:27) Rash/autoimmune reactions prochlorperazine edisylate [From Compazine] Adverse Reaction (Verified 12/02/19 13:27) disoriented prochlorperazine maleate [From Compazine] Adverse Reaction (Verified 12/02/19 13:27) DISORIENTED CADMIUM Allergy (Uncoded 12/02/19 13:27) Rash AUTOIMMUNE RESPONSE Procedures: 2-D Echocardiogram - Type of Care/Length of Stay Estimated LOS: Convalescent Care Less Than 30 days Type of Care Needed: Skilled Rehab Potential: Good Prognosis: Good - Additional Orders/Day of Discharge Day of Discharge: 02/09/20 - Dietary and Speech Recommendations Dietitian Recommendations/Changes: Rec SAWMILL OR [employer]BER [employer]ARD WORKER consult as indicated prior to diet advancement as pt w/ hx dysphagia. Rec MIRANDA Regular as pt medically able. Will provide ONS w/ meals d/t poor po intake - Follow Up Care Primary Care Physician: Brant Howard Chi, MD [Primary Care Provider] - Please follow up with your Primary Care Physician in: 3-5 days
--- NOTE | 2020-02-09 11:16 | PHA.DC.MR ---
Pharmacy Service has performed discharge medication reconciliation for this patient. The patient's discharge medication list was reviewed for discrepancies and discrepancies were resolved. Home Medications Aspirin E.C. [Ecotrin] 81 mg PO DAILY@0800 tab 02/09/20 Cephalexin [Keflex] 500 mg PO Q12 cap 02/09/20 Metoprolol Tartrate [Lopressor (beta rené)] 25 mg PO BID tab 02/09/20 Nicotine [Nicoderm] 14 mg TRANSDERM. DAILY patch 02/09/20 Oxycodone [Oxyir] 5 mg PO Q4H PRN PRN 3 Days #10 tab 02/09/20
--- NOTE | 2020-02-09 12:14 | CASEMGMT ---
Social Work Note SAM reviewed notes, per ER documentation squad mentioned that pt's house was very dirty and that she is a hoarder and she was covered in dirt which is from the floor of her bedroom. Pt also mentioned that while she was laying on the floor of her home, she was kept company by mice. SAM did place a call to Randi at [facility] and left message regarding APS referral. SAM updated Randi that pt will be going to [facility] today for rehabilitation. Jeanette Wright RETAIL TRAINING MANAGER, [employer]
--- NOTE | 2020-02-09 13:55 | PCM.DC.SUM ---
Discharge Date and Diagnosis - Problem List Patient Problems: Active and Suspected Problems Fracture of femoral neck, left, closed (Acute) Severe sepsis (Acute) UTI (urinary tract infection) (Acute) Elevated troponin (Acute) Abnormal cardiac enzyme level (Acute) Preop cardiovascular exam (Acute) Date of Admission: 02/05/20 Date of Discharge: 02/09/20 - Primary Discharge Diagnosis Acute Problems: Active Problems Fracture of femoral neck, left, closed (Acute) Severe sepsis (Acute) UTI (urinary tract infection) (Acute) Elevated troponin (Acute) Abnormal cardiac enzyme level (Acute) Preop cardiovascular exam (Acute) - Secondary Discharge Diagnosis Chronic Problems: Chronic Problems Debility (Chronic) Autoimmune pancreatitis (Chronic) Alcohol dependence (Chronic) Psoriatic arthritis (Chronic) Hepatic steatosis (Chronic) Acute recurrent pancreatitis (Chronic) Abnormal LFTs (Chronic) Alcohol abuse (Chronic) Hypertension (Chronic) Hypothyroidism (Chronic) Anxiety (Chronic) Fibromyalgia (Chronic) Dysphagia (Chronic) Rheumatoid arthritis (Chronic) never confirmed.....RA is negative.....tells me that she has psoriatic arthritis Psoriasis (Chronic) Chronic back pain (Chronic) osteoarthritis Delusional disorder (Chronic) Bipolar disorder (Chronic) Depression with H/o suicidal attempt (Chronic) Hospital Course and Treatment Imaging Results: Clinical Impression(s) from Imaging Studies Brain CT 02/05/20 10:47 IMPRESSION: Chronic involutional changes of the brain. Electronically Signed: Reynaldo Gill MD at 12:13 EDT Tel , Service support , Cervical Spine CT 02/05/20 10:47 IMPRESSION: No acute fracture or subluxation. Electronically Signed: Reynaldo Gill MD at 12:11 EDT Tel , Service support , Hip/Pelvis X-Ray 02/05/20 10:55 IMPRESSION: Acute impacted fracture the transcervical femoral neck. Electronically Signed: Reynaldo Gill MD at 12:01 EDT Tel , Service support , Chest X-Ray 02/05/20 11:17 IMPRESSION: No active disease. Electronically Signed: Reynaldo Gill MD at 12:00 EDT Tel , Service support , Hip X-Ray 02/06/20 15:16 IMPRESSION: Expected early postoperative appearance after left total hip arthroplasty. Electronically Signed: Mario Burnerhussein, at 18:57 EDT Tel , Service support , Echo: Interpretation Summary The study was technically difficult. Contrast injection was performed. Left ventricular systolic function is normal. The estimated ejection fraction is 70 %. Mild (1+) mitral valve insufficiency. Trivial tricuspid valve insufficiency. Unable to estimate RV systolic pressure/pulmonary artery pressure due to technically difficult study. Transmitral diastolic flow velocities suggest diastolic dysfunction (pseudonormal pattern). Procedure Report Date of Procedure: 02/06/20 Preoperative diagnosis: Left hip displaced femoral neck fracture Postoperative diagnosis: Same Operation: Left hip press fit hemiarthroplasty Surgeon: Dr. Josh Marie MD Lead Customer Service Representative: Paola Haas PA-C Anesthesia: General Anesthesiologist; Dr. Urbina Special medications: IV [Ancef], IV Tranexamic acid IV x 1 EBL 150 cc Complications: None Consults: Cardiology ICU Operations: None Procedures: 2-D Echocardiogram Summary of Care Provided: Per HPI: The patient is a 70 year old F with an extensive past medical history as outlined. She also has a history of alcohol dependence. She was admitted through the ED on 02/05/2020 after being brought in by the emergency squad. Patient states he lives alone and has not been able to take care of herself very well because of pain from her arthritis. She states that she holds things and so is not able to even move around her house very well. She has been drinking alcohol to medicate herself for the pain. The night before admission, patient states she fell on the floor in her bedroom and could not get herself up off the ground. She denied any lightheadedness or dizziness prior to the fall and says she just felt weak and fell. A friend came to check on her in the morning and found her on the floor and so called the squad. She denies losing consciousness when she fell though she thinks she hit her head. She denied any nausea, vomiting, fever or chills, chest pain, diarrhea vomiting. She did admit to frequent urination and thinks that she has a urine infection. On reviewing the ED, vitals showed temperature of 98 Fahrenheit with blood pressure 134/81, pulse rate of 119 and respiratory rate of 30. She was saturating at 100% on room air. Chemistry showed sodium of 137 potassium 4.2, lactic acid of 3.9 and glucose of 150. Total bilirubin was 1.8 and total CPK was 168. Initial troponin was 0.164. CBC showed WBC of 17.1 with hemoglobin of 12.5 and platelets of 216. CT of the brain showed only chronic involutional changes. UA showed 4+ bacteria with 500 leukocyte esterase and 10-[address] showed no evidence of acute fracture or subluxation. Chest x-ray showed no acute cardiopulmonary process. X-ray of the hip and pelvis showed acute impacted fracture of the left transcervical femoral neck. She has been admitted to be managed for severe sepsis due to UTI, non-STEMI and fracture of the left femoral neck due to mechanical fall. Hospital Course: 1. Severe sepsis secondary to E. coli UTI -Sepsis has resolved, urine is secondary to E. coli however she did have a coag negative staph in 1 out of 4 blood culture bottles. Repeat blood cultures are no growth. We will continue with Keflex BID for 2 more days at the [facility], however this is highly likely to be a contaminant and therefore we will continue to treat the E. coli, the Keflex will help with a contaminant as well -Between the ancef, cefepime, rocephin and now keflex, she will have completed a 7 day course -Pansensitive 2. Acute fracture of the left hip secondary to mechanical fall postop 02/06/2020 -Continue with pain management -Dressing is intact -PT/OT 3. Alcohol abuse -She has not needed any ativan and has not had any significant withdrawal symptoms since admission 4. Indeterminate troponin -She had a slight elevation in troponin without any ST changes on her EKG, this was felt to be secondary to demand ischemia from her sepsis -Cardiology evaluated the EKG and felt that she was good for surgery, quick bedside echo prior to surgery demonstrated decent wall motion -Echo with an EF of 70% with no significant diastolic dysfunction -Continue with aspirin and metoprolol 25 mg PO BID, can increase if necessary, her blood pressure can handle it -Appreciate cardiology input Patient Problems: Active and Suspected Problems Fracture of femoral neck, left, closed (Acute) Severe sepsis (Acute) UTI (urinary tract infection) (Acute) Elevated troponin (Acute) Abnormal cardiac enzyme level (Acute) Preop cardiovascular exam (Acute) - Physical Exam Vitals/I&O's: Vital Signs Temp Pulse Resp BP Pulse Ox 98.6 F 107 H 20 H 136/78 H 93 02/09/20 08:09 02/09/20 10:14 02/09/20 13:46 02/09/20 08:09 02/09/20 08:09 Oxygen Delivery Method Room Air Weight: 136 lb 14.513 oz Body Mass Index (BMI) 22.1 Finger Stick Blood Glucose 103 Intake and Output for Last 24 Hours 02/07/20 02/08/20 02/09/20 23:59 23:59 23:59 Intake Total 520 / 520 625 / 625 150 / 150 Output Total 870 / 870 825 / 825 250 / 250 Balance -350 / -350 -200 / -200 -100 / -100 General: Alert, Oriented x3, Cooperative, No apparent distress HEENT: Atraumatic, PERRLA, EOMI, Normocephalic Oral: Moist Mucosa Neck: Supple, No JVD Lungs: Clear to auscultation, Normal air movement, No rhonchi, No wheeze, No rales, Diminished Cardiovascular: Regular rate, Regular Rhythm, Normal S1, Normal S2, No murmurs Abdomen: Soft, Non Tender, Non-Distended, No Hepato-splenomegaly Extremities: No edema, Capillary Refill Less than 3 Seconds Skin: No rashes, No breakdown, Incision - CDI Neurological: Neuro grossly intact, Sensory exam intact to light touch and pain Psych/Mental Status: Normal Affect, Appropriate Microbiology Past 72 Hours 02/05/20 11:00 Blood Culture (Wb) - Anticubital Right Bacteria Detection (PCR) - Final Coag Negative Staph 02/05/20 11:00 Blood Culture (Wb) - Anticubital Right Blood Culture - Preliminary Coag Negative Staph 02/05/20 12:00 Urine Catheter - Funk Urine Culture - Final Presumptive E. coli Laboratory Results 02/09/20 04:56: WBC 10.7, RBC 2.77 L, Hgb 9.5 L, Hct 28.9 L, MCV 104.3 H, MCH 34.3 H, MCHC 32.9, RDW Std Deviation 65.1 H, RDW Coeff of Jonathan 16.9 H, Plt Count 186, MPV 8.8, Neut % (Auto) Not Reportable, Absolute Neuts (auto) 9.1 H, Absolute Lymphs (auto) 0.96, Total Counted 100, Neutrophils % (Manual) 77 H, Band Neutrophils % 8 H, Lymphocytes % (Manual) 9 L, Monocytes % (Manual) 3, Eosinophils % (Manual) 2, Myelocytes % 1 H, Differential Comment SCANNED, Diff Path Review October, Platelet Estimate ADEQUATE, Anisocytosis 1+, Macrocytosis 1+ 02/09/20 04:56: Sodium 139, Potassium 3.4 L, Chloride 105, Carbon Dioxide 30.0, Anion Gap 4 L, BUN 6 L, Creatinine 0.34 L, Estim Creat Clear Calc 45.76, Est GFR (MDRD) Af Amer 241, Est GFR (MDRD) Non-Af 199, BUN/Creatinine Ratio 17.5, Glucose 117 H, Calcium 8.2 L Current Medications Acetaminophen (Tylenol) 650 mg PO Q6H PRN PRN PRN Reason: Pain Score 1-10/Temp > 100.7 F Last Admin: 02/08/20 19:47 Dose: 650 mg Documented by: Albuterol/Ipratropium (Duoneb) 3 ml INHALATION Q6HWA.RT [facility] Last Admin: 02/09/20 13:46 Dose: 3 ml Documented by: Aspirin (Ecotrin) 81 mg PO DAILY@0800 [facility] Last Admin: 02/09/20 07:45 Dose: 81 mg Documented by: Cephalexin (Keflex) 500 mg PO Q12 [facility] Dicyclomine HCl (Bentyl) 20 mg PO Q6H PRN PRN PRN Reason: abdominal discomfort Enoxaparin Sodium (Lovenox) 40 mg SC DAILY [facility] Last Admin: 02/09/20 10:14 Dose: 40 mg Documented by: Folic Acid (Folic Acid) 1 mg PO DAILY@0800 [facility] Last Admin: 02/09/20 07:45 Dose: 1 mg Documented by: Gabapentin (Neurontin) 300 mg PO Q8H PRN PRN PRN Reason: moderate to severe anxiety Hydroxyzine Pamoate (Vistaril Pamoate Capsule) 50 mg PO Q4H PRN PRN PRN Reason: mild anxiety Sodium Chloride () 250 mls @ 15 mls/hr IV .[id number] PRN PRN Reason: Saline Flush Last Infusion: 02/06/20 15:05 Dose: Infused Documented by: Sodium Chloride () 250 mls @ 15 mls/hr IV .[id number] PRN PRN Reason: Additional IVPB Infusion Loperamide HCl (Imodium) 2 mg PO Q4H PRN PRN PRN Reason: LOOSE STOOLS Lorazepam (Ativan) 2 mg PO Q2H PRN PRN; Protocol PRN Reason: CIWA score > 8 but <15 Lorazepam (Ativan) 2 mg PO UD PRN; Protocol PRN Reason: CIWA score >/=15. Lorazepam (Ativan) 2 mg IV Q2H PRN PRN; Protocol PRN Reason: CIWA score > 8 but <15 Lorazepam (Ativan) 2 mg IV UD PRN; Protocol PRN Reason: CIWA score >/=15. Metoprolol Tartrate (Lopressor (Beta Terry)) 25 mg PO BID [facility] Last Admin: 02/09/20 10:14 Dose: 25 mg Documented by: Morphine Sulfate () 4 mg IV Q3H PRN PRN PRN Reason: Pain Score 6-10/10 Last Admin: 02/08/20 08:03 Dose: 4 mg Documented by: Multivitamins/Minerals ([facility]ivitamin With Minerals (B[facility])) [facility] Last Admin: 02/09/20 07:45 Dose: 1 tablet Documented by: Nicotine (Nicoderm Cq (Pbkc)) 14 mg TRANSDERM. DAILY [facility] Last Admin: 02/09/20 10:14 Dose: 14 mg Documented by: Nitroglycerin (Nitrostat) 0.4 mg SUBLINGUAL Q5M PRN PRN Reason: CARDIAC/CHEST PAIN Ondansetron HCl (Zofran) 4 mg IV Q8H PRN PRN PRN Reason: NAUSEA/VOMITING Last Admin: 02/08/20 10:58 Dose: 4 mg Documented by: Ondansetron HCl (Zofran) 8 mg PO Q8H PRN PRN PRN Reason: NAUSEA Oxycodone HCl (Oxyir) 5 mg PO Q4H PRN PRN PRN Reason: Pain Score 4-5/10 Last Admin: 02/09/20 07:46 Dose: 5 mg Documented by: Phenobarbital (Phenobarbital) 97.2 mg PO Q4H [facility]; Taper Stop: 02/12/20 16:14 Last Admin: 02/09/20 12:13 Dose: 97.2 mg Documented by: Senna/Docusate Sodium (Senokot-S, Emely-Colace) 2 tablet PO BID [facility] Last Admin: 02/09/20 10:13 Dose: 2 tablet Documented by: Sodium Chloride () 10 - 40 ml IV UD PRN PRN Reason: SALINE FLUSH Last Admin: 02/08/20 21:16 Dose: 10 ml Documented by: Thiamine HCl (Vitamin B1) 100 mg PO DAILYCM [facility] Last Admin: 02/09/20 07:45 Dose: 100 mg Documented by: Trazodone HCl (Desyrel) 100 mg PO QHS PRN PRN Reason: INSOMNIA Home Medications: Medications to take at Discharge Aspirin E.C. [Ecotrin] 81 mg PO DAILY@0800 tab 02/09/20 Cephalexin [Keflex] 500 mg PO Q12 cap 02/09/20 Metoprolol Tartrate [Lopressor (beta terry)] 25 mg PO BID tab 02/09/20 Nicotine [Nicoderm] 14 mg TRANSDERM. DAILY patch 02/09/20 Oxycodone [Oxyir] 5 mg PO Q4H PRN PRN 3 Days #10 tab 02/09/20 Following Prescriptions Were Given to Patient: Oxycodone [Oxyir] 5 mg PO Q4H PRN PRN 3 Days #10 tab PRN Reason: Pain Score 4-10/10 Prescription Printed Primary Care Physician: Brant Howard Chi, MD [Primary Care Provider] - Please follow up with your Primary Care Physician in: 3-5 days Disposition: Residential facility Minutes spent on discharge:: 35 Patient Condition:: Stable Medical Necessity - Tobacco Use Smoking Status: Current some day smoker Meaningful Use Info Meaningful Use Diagnoses (Choose all that apply): None applicable Inpatient E&M: [id number] [facility]
[2020-02-09 14:04] LABS: Pathologist Review Reviewed
== END 2020-02-09 15:45 | disposition skilled nursing facility (03) | DRG 853 ==
LOC: ED 13:06 → ICU 13:12 → MS3 02-07 14:52
PROVIDERS: Orthopaedic Surgery; Admitting Provider Student in an Organized Health Care Education/Training Program; Emergency Provider Physician Assistant Medical; PCP Family Medicine Geriatric Medicine; Visit Provider Family Medicine
PROC: 0SRS01A Replacement of Left Hip Joint, Femoral Surface with Metal Synthetic Substitute, Uncemented, Open Approach (ICD-10-PCS; CPT 27125; principal; 2020-02-06 08:00)
DX: A41.51 Sepsis due to Escherichia coli [E. coli] (principal); S72.032A Displaced midcervical fracture of left femur, initial encounter for closed fracture; K85.90 Acute pancreatitis without necrosis or infection, unspecified; N39.0 Urinary tract infection, site not specified; K86.1 Other chronic pancreatitis; E87.2 Acidosis; I24.8 Other forms of acute ischemic heart disease; W18.30XA Fall on same level, unspecified, initial encounter; Y92.003 Bedroom of unspecified non-institutional (private) residence as the place of occurrence of the external cause; R65.20 Severe sepsis without septic shock; B96.20 Unspecified Escherichia coli [E. coli] as the cause of diseases classified elsewhere; K70.10 Alcoholic hepatitis without ascites; F10.20 Alcohol dependence, uncomplicated; Y90.0 Blood alcohol level of less than 20 mg/100 ml; R79.89 Other specified abnormal findings of blood chemistry; R74.8 Abnormal levels of other serum enzymes; R53.81 Other malaise; L40.50 Arthropathic psoriasis, unspecified; I10 Essential (primary) hypertension; E03.9 Hypothyroidism, unspecified; F41.9 Anxiety disorder, unspecified; M79.7 Fibromyalgia; M06.9 Rheumatoid arthritis, unspecified; F22 Delusional disorders; G89.29 Other chronic pain; F31.9 Bipolar disorder, unspecified; F17.210 Nicotine dependence, cigarettes, uncomplicated; K76.0 Fatty (change of) liver, not elsewhere classified; R13.10 Dysphagia, unspecified; Z91.5 Personal history of self-harm; Z87.440 Personal history of urinary (tract) infections; Z79.82 Long term (current) use of aspirin; Z79.899 Other long term (current) drug therapy
CPT/HCPCS: 36415; 51702; 70450; 71045; 72125; 73502; 80048; 80053; 80061; 80307; 80320; 81001; 82550; 83605; 83690; 84443; 84484; 85025; 85027; 85610; 87040; 87086; 87088; 87149; 87186; 87635; 88305; 88311; 93005; 93306; 94640; 94762; 94799; 97116; 97162; 97166; 97530; 99251; 99285; 99406; C1776; J7030; J7050; Q9957; A4216; C8929; G0463; G0480; J2405; U0003

== ENCOUNTER 2020-05-01 01:48 | Observation (INO) | payer SELFPAY ==
[2020-02-06 11:26] VITALS: BMI 22.1
[2020-05-01] VITALS (12 sets, daily range): BP systolic 132–169; BP diastolic 57–84; PULSE 94–126; RESP 16–96; TEMP 36.1–37.2; O2SAT 13–100; BMI 22.1; BMI 21.1
--- NOTE | 2020-05-01 02:18 | EKG12_ITS ---
Test Reason : DYSRYTHMIA Blood Pressure : / mmHG Vent. Rate : 113 BPM Atrial Rate : 113 BPM P-R Int : 162 ms QRS Dur : 074 ms QT Int : 340 ms P-R-T Axes : 064 036 043 degrees QTc Int : 466 ms Sinus tachycardia Possible Left atrial enlargement Septal infarct , age undetermined Abnormal ECG Confirmed by LISSETT LORENZ, XIAO ([id number]), graphic editor SARITHA COLON ([id number]) on 05/03/2020 10:38:43 AM Referred By: LISSET Confirmed By:XIAO GALEANA MD
[2020-05-01] MEDS: 0.9% Normal Saline 1,000 ML 150 ML IV ×4 (02:42→21:04)
[2020-05-01 02:56] LABS: Bacteria 0 SEEN /hpf (None Seen); Mucous, Urine 0 SEEN /hpf (<or=2+); Red Blood Cells-Urine 0 SEEN /hpf (0-5); Squamous Epithelial Cells - UA 0 SEEN /hpf (5-10); White Blood Cells 0 SEEN /hpf (0-5)
[2020-05-01 02:56] LABS: Absolute Lymphocyte Count 1.93 X10^3/uL (0.83-4.51); Basophil# 0.08 X10^3/uL; Basophil% 0.3 % (0-1); Eosinophil# 0.02 X10^3/uL; Eosinophils% 0.1 % (0-5); Hematocrit 44.6 % (37-47); Hemoglobin 14.8 g/dL (12.0-15.0); Lymphocyte # 1.93 X10^3/ul (4.0); Lymphocyte % 8.3 % (19-41); Mean Corp Hgb Conc 33.2 g/dL (32-36); Mean Corpuscular Hgb 30.5 pg (27.0-32.0); Mean Platelet Vol. 9.2 fl (6.2-12.0); Monocyte% 5.1 % (0-10); NRBC Flagged by Analyzer 0 % (0-5); Neutrophil # 19.98 X10^3/uL (2.7-7.7); Neutrophil % 85.5 % (47-70); Platelet Count 440 K/mm3 (150-450); RBC Distribution Width CV 12.3 % (11.6-14.6); RBC Distribution Width SD 41.3 fl (35.1-43.9); Red Blood Count 4.85 M/mm3 (4.2-5.4); White Blood Count 23.4 K/mm3 (4.4-11.0)
[2020-05-01 02:57] LABS: Color, Urine Yellow (Yellow); Glucose, Dipstick Normal (Normal); Leukocyte Esterase-Dipstick Negative /ul (Negative); Nitrite-Dipstick Negative (Negative); Occult Blood-Urine Negative /ul (Negative); Protein-Dipstick Negative (Negative); Specific Gravity, Urine 1.025 (1.002-1.030); Urine Bilirubin Dipstick Negative (Negative); Urine Clarity Clear (Clear); Urine Urobilinogen Normal (Normal)
[2020-05-01 03:01] LABS: Ketone-Dipstick 150 mg/dl (Negative)
[2020-05-01 03:06] LABS: Amphetamine Urine VISTA NEGATIVE (<1000 ng/mL); Barbiturate Urine VISTA NEGATIVE (< 200 ng/mL); Benzodiazepine Urine VISTA NEGATIVE (< 200 ng/mL); Cocaine Urine VISTA NEGATIVE (< 300 ng/mL); Ecstacy Urine VISTA NEGATIVE (< 500 ng/mL); Methadone Urine VISTA NEGATIVE (< 300 ng/mL); PCP Urine VISTA NEGATIVE (< 25 ng/mL); THC Urine VISTA NEGATIVE (< 50 ng/mL); Vista UDS pH Range 5
--- NOTE | 2020-05-01 03:12 | CT_ITS ---
HISTORY: Diffuse abdominal pain, ETOH, HX HTN, AUTOIMMUNE PANCREATITIS, RA EXAMINATION: CT Abdomen And Pelvis W/O Contrast Injection TECHNIQUE: Helically acquired images were obtained of the abdomen and pelvis without oral or IV contrast as per renal stone protocol. A radiation dose optimization technique was used for this scan. IV Contrast dosage and agent: None Oral contrast: None. COMPARISON: 02/12/2019 FINDINGS: Lower thorax: Small right pleural effusion which is new compared to previous. No pericardial effusion. Nonspecific diffuse mural thickening of the lower esophagus. No radiopaque gallstones and no biliary dilatation. Fatty liver which is upper normal in size. No focal hepatic lesion or biliary dilatation. Normal spleen. Pancreas: Innumerable calcifications greatest at the pancreatic head, neck, and body in keeping with chronic pancreatitis. No suspicious pancreatic enlargement and currently no peripancreatic edema. Both kidneys show normal size and position. No renal or ureteral calculi and no hydronephrosis or hydroureter. The adrenal glands are not enlarged. The abdominal aorta is atherosclerotic and normal in caliber. No ascites or retroperitoneal lymph node enlargement. GI tract: No obstruction. The appendix is upper normal in caliber and with a 6 mm appendicolith. No jon-appendiceal or pericecal inflammatory change identified. Pelvis: Normal uterine size. The urinary bladder is incompletely distended and with mild bladder wall thickening suggested and without significant change. No free fluid or lymph node enlargement. Bones: No acute osseous abnormality. Left total hip prosthesis in place. CT/Abdomen/Pelvis without Cont IMPRESSION: 1. Small right pleural effusion. Nonspecific mural thickening of the lower esophagus. Possible esophagitis. 2. Chronic calcific pancreatitis. Fatty infiltration of the liver. No ascites or splenomegaly. 3. 6 mm appendicolith and without CT findings of appendicitis. 4. Mild diffuse urinary bladder wall thickening, similar to prior, and possible chronic cystitis. Individualized dose optimization techniques were used for this CT. at 0452 Reported and signed by: Greg Spears MD Electronically Signed: Greg Spears, at 4:51 EST Tel , Service support ,
[2020-05-01] MEDS: Ondansetron 4 MG/2 ML Vial IV ×2 (03:15→06:03)
[2020-05-01 03:16] LABS: ALB/GLOB Ratio 0.8 RATIO (0.9-2.4); AST(SGOT) 26 U/L (15-37); Alanine Aminotransfer ALT/SGPT 28 U/L (13-56); Albumin, Serum 3.6 g/dL (3.2-5.0); Alkaline Phosphatase 157 U/L (45-117); Anion Gap 21 (5-15); BUN 15 mg/dL (7-18); BUN/Creat Ratio 22.4 RATIO (10-20); Calcium,Total 8.6 mg/dL (8.5-10.1); Chloride 91 mmol/L (98-107); Creatinine, Serum 0.67 mg/dL (0.55-1.02); EST Glomerular Filtration Rate 92 mL/min (>60); Est Glom Filt Rate - Afr Amer 111 mL/min (>60); Globulin 4.4 g/dL (2.2-4.2); Glucose 144 mg/dL (74-106); Lipase 237 U/L (73-393); Potassium 3.7 mmol/L (3.5-5.1); Sodium Level 130 mmol/L (136-145)
--- NOTE | 2020-05-01 04:13 | RAD_ITS ---
HISTORY: TACHYCARDIA EXAMINATION/TECHNIQUE: XR Chest 1 View: Portable upright COMPARISON: 02/05/2020 FINDINGS: Cardiac telemetry leads in place. No significant change. Mild elevation of the right hemidiaphragm. Normal heart size. No acute infiltrate. No vascular congestion or pleural effusion. Atherosclerotic thoracic aorta. No pneumothorax. Remote fracture of the lower right ribs. RAD/Chest 1 View (Portable) IMPRESSION: No acute cardiopulmonary disease. No significant change. at 0458 Reported and signed by: Greg Spears MD Electronically Signed: Greg Spears, at 4:57 EST Tel , Service support ,
--- NOTE | 2020-05-01 05:23 | PCM.HP.STD ---
Problem List (1) Acute psychosis Status: Acute (2) Hyponatremia Status: Acute (3) Opiate withdrawal Status: Acute (4) Severe protein-calorie malnutrition Status: Chronic (5) HLD (hyperlipidemia) Status: Chronic Qualifiers: Hyperlipidemia type: unspecified Qualified Code(s): E78.5 - Hyperlipidemia, unspecified (6) GERD (gastroesophageal reflux disease) Status: Chronic Qualifiers: Esophagitis presence: esophagitis presence not specified Qualified Code(s): K21.9 - Gastro-esophageal reflux disease without esophagitis (7) Tobacco use Status: Chronic (8) Alcohol dependence Status: Chronic Qualifiers: Substance use status: unspecified alcohol-induced disorder Qualified Code(s): F10.29 - Alcohol dependence with unspecified alcohol-induced disorder (9) Bipolar disorder Status: Chronic Qualifiers: Active/Remission status: remission status unspecified Qualified Code(s): F31.9 - Bipolar disorder, unspecified (10) Chronic back pain Status: Chronic Qualifiers: Back pain location: back pain in unspecified location Back pain laterality: unspecified Qualified Code(s): M54.9 - Dorsalgia, unspecified; G89.29 - Other chronic pain Comment: osteoarthritis (11) Delusional disorder Status: Chronic (12) Hypertension Status: Chronic Qualifiers: Hypertension type: essential hypertension (13) Hypothyroidism Status: Chronic Qualifiers: Hypothyroidism type: unspecified History of Present Illness Date of Admission: 05/01/20 Chief Complaint: Generalized pain The patient is a 70 y/o F w/ PMHx: Chronic Pain Syndrome (Back pain) following w/ Dr. Mcintosh, Fibromyalgia, HTN, HLD, Hypothyroidism, EtOH Abuse (Denies), Hx Pancreatitis, Anxiety and Depression/Bipolar disorder w/ Prior Suicide Attempt who presents to the [facility] ED on 05/01/20 with history of recent discharge from SNF 2 days prior with recent L hip fracture with repair per Dr. Josh Marie re-presenting secondary to increased generalized pain, more so in her L hip, rated severe 10/10 with nausea and emesis, no cough, congestion, dyspnea, fever, chills with poor oral intake but restarted EtOH intake. She notes having pain in every joint in her body as well as her abdomen. She denies substance abuse including alcohol and opiate withdrawal but presentation concerning for opiate withdrawal especially given recent discharge from facility 2 days prior. She continues to deny alcohol abuse. Patient in the emergency room very agitated claiming that her reactions are secondary to recent hip fracture and repair with possible metals in her leg causing allergic reaction. In the emergency room patient states that she is suicidal secondary to her ongoing pain and can give plan. Work-up in the ED included T 97, heart rate 126, BP 155/75, respiratory rate 18, on a percent on room air, CBC with WC 23.4, hemoglobin 14.8, platelet 448 with left shift, CMP with sodium 130, chloride 91, carbon oxide 18, BUN/creatinine 15/0.67, anion gap 21, glucose 144, AST/ALT 26/28, alk phos 157, troponin less than 0.015, lipase 237, urinalysis with ketones 150, specific gravity elevated 1.025 otherwise not marked appearing, urine drug screen negative, initial ethyl alcohol level 116 with follow-up 62, chest x-ray with no acute cardiopulmonary findings, CT abdomen and pelvis with a small right pleural effusion with nonspecific mural thickening of the lower esophagus, chronic calcific pancreatitis, fatty infiltration of the liver, 6 mm appendicolith without any findings consistent with appendicitis, mild diffuse urinary bladder wall thickening similar to prior. In the ED patient ministered Zofran, morphine, normal saline. Past Medical History Past Medical History (Chronic Problems): Chronic Problems Debility (Chronic) Autoimmune pancreatitis (Chronic) Alcohol dependence (Chronic) Psoriatic arthritis (Chronic) Severe protein-calorie malnutrition (Chronic) HLD (hyperlipidemia) (Chronic) GERD (gastroesophageal reflux disease) (Chronic) Tobacco use (Chronic) Hepatic steatosis (Chronic) Acute recurrent pancreatitis (Chronic) Abnormal LFTs (Chronic) Alcohol abuse (Chronic) Hypertension (Chronic) Hypothyroidism (Chronic) Anxiety (Chronic) Fibromyalgia (Chronic) Dysphagia (Chronic) Rheumatoid arthritis (Chronic) never confirmed.....RA is negative.....tells me that she has psoriatic arthritis Psoriasis (Chronic) Chronic back pain (Chronic) osteoarthritis Delusional disorder (Chronic) Bipolar disorder (Chronic) Depression with H/o suicidal attempt (Chronic) Allergies nickel [Nickel] Allergy (Verified 05/01/20 01:58) Rash/autoimmune reactions prochlorperazine edisylate [From Compazine] Adverse Reaction (Verified 05/01/20 01:58) disoriented prochlorperazine maleate [From Compazine] Adverse Reaction (Verified 05/01/20 01:58) DISORIENTED CADMIUM Allergy (Uncoded 05/01/20 01:58) Rash AUTOIMMUNE RESPONSE Home Medications: Ambulatory Orders Medication Instructions Recorded Aspirin E.C. [Ecotrin] 81 mg PO DAILY@0800 tab 02/09/20 Cephalexin [Keflex] 500 mg PO Q12 cap 02/09/20 Metoprolol Tartrate [Lopressor 25 mg PO BID tab 02/09/20 (beta rené)] Nicotine [Nicoderm] 14 mg TRANSDERM. DAILY patch 02/09/20 Surgical History: tonsillectomy, - - Recent left hip fracture with repair. Psychiatric History: Anxiety, Bipolar, Depression, - - Delusional disorder. MANAGER OF EXHIBITIONS AND COLLECTIONS History: No pertinent MANAGER OF EXHIBITIONS AND COLLECTIONS history Lives: Alone - Patient notes cigarette tobacco usage varies from 3 to 4 cigarettes daily to 1 pack/day. Smoking Status: Current every day smoker Tobacco Use: Cigarettes Alcohol: Heavy Drugs: None - *Family History Maternal History Items: - - Reports autoimmune disease. Paternal History Items: - - Reports that her father from aspiration pneumonia at age 92. And her grandfather from pneumonia at age 32. She also notes that her father had exposure to nickel and had some diseases related but cannot give this information. Denied any history of heart disease, diabetes or cancer. Review of Systems Constitutional: Reports: Anorexia, Malaise, Weakness, Fatigue. Denies: Chills, Fever, Weight Change HEENT: Denies: Head Aches, Sinus Congestion, Sinus Drainage Cardiovascular: Denies: Chest Pain, Palpitations Respiratory: Denies: Cough, Shortness of Breath, Shortness of breath at rest, Sputum production Gastrointestinal: Reports: Abdominal Pain, Nausea, Vomiting Genitourinary: Denies: Dysuria Musculoskeletal: Reports: Back Pain, Joint Pain, Joint stiffness, Joint Tenderness, Leg Pain, Muscle pain Skin: Denies: Rash, Wounds Neurological: Denies: Numbness, Tingling, Focal weakness Psychiatric: Reports: Anxiety, Depression, Suicidal Ideations. Denies: Homicidal Ideations Hematologic/ Lymphatic: Reports: Easy Bruising, Easy Bleeding VTE Information - Inpt Only VTE Present on Admission: No VTE Mechan Device Prophylaxis: SCD's VTE Pharm Prophylaxis ordered?: Yes Subjective: Patient seated upright on the ED bed, agitated, anxious, stating she is got pain in all her joints and everywhere, rocking. Objective: Physical Examination: General: awake, alert, oriented to self, place and some recent events, intermittently cooperative, agitated, complaining of diffuse body pain in all joints, abdomen. Skin: normal color, turgor, no icterus, cyanosis, left hip incision well appearing, healed. HEENT: AT/NC, EOMI, PERRLA, dry MM, no carotid bruits or JVD noted. Lungs: Diminished breath sounds, greater bases, decreased effort which she notes is secondary to of her pain ongoing, no rales, ronchi or wheezing. Heart: Tachycardic with regular rhythm; no gallop, rub audible. Abdomen: soft, thin cachectic habitus, generalized discomfort with palpation of the abdomen but no rebound, voluntary guarding, no obvious distention, mildly hyperactive bowel sounds, positive HM. Extremities: no cyanosis, clubbing, or edema. Neurological: patient awake, alert, oriented as noted; cognitive function poor baseline but decreased from her prior baseline during previous admission; pupils equally reactive to light and accomodation; cranial nerves II-XII grossly normal, moving all 4 extremities, no focal deficits, strength severely globally decreased secondary to acute presentation with acute generalized pain complaints. Psychiatric: affect appears agitated, no acute evidence of depressive or anxiety feelings. - Physical Exam Vitals/I&O's: Vital Signs Temp Pulse Resp BP Pulse Ox 97 F L 110 H 21 H 169/82 H 98 05/01/20 01:49 05/01/20 04:00 05/01/20 04:00 05/01/20 04:00 05/01/20 04:00 Oxygen Delivery Method Room Air Weight: 137 lb 9.095 oz Body Mass Index (BMI) 22.1 Finger Stick Blood Glucose 103 Laboratory Results 05/01/20 02:20: Urine Opiates Screen NEGATIVE, Urine Methadone Screen NEGATIVE, Ur Barbiturates Screen NEGATIVE, Ur Phencyclidine Scrn NEGATIVE, Ur Amphetamines Screen NEGATIVE, U Methamphetamin-MDMA NEGATIVE, U Benzodiazepines Scrn NEGATIVE, Urine Cocaine Screen NEGATIVE, U Cannabinoids Screen NEGATIVE, Ur Drug Screen Comment 05/01/20 02:20: Urine Color Yellow, Urine Clarity Clear, Urine pH 5.0, Ur Specific [place] 1.025, Urine Protein Negative, Urine Glucose (UA) Normal, Urine Ketones 150 H, Urine Occult Blood Negative, Urine Nitrite Negative, Urine Bilirubin Negative, Urine Urobilinogen Normal, Ur Leukocyte Esterase Negative, Urine RBC 0 SEEN, Urine WBC 0 SEEN, Ur Squamous Epith Cells 0 SEEN, Urine Bacteria 0 SEEN, Urine Mucus 0 SEEN 05/01/20 02:40: WBC 23.4 H, RBC 4.85, Hgb 14.8, Hct 44.6, MCV 92.0, MCH 30.5, MCHC 33.2, RDW Std Deviation 41.3, RDW Coeff of Jonathan 12.3, Plt Count 440, MPV 9.2, Immature Gran % (Auto) 0.700, Neut % (Auto) 85.5 H, Lymph % (Auto) 8.3 L, [place] % (Auto) 5.1, Eos % (Auto) 0.1, Baso % (Auto) 0.3, Absolute Neuts (auto) 20.0 H, Absolute Lymphs (auto) 1.93, Nucleated RBC % 0 05/01/20 02:40: Sodium 130 L, Potassium 3.7, Chloride 91 L, Carbon Dioxide 18.0 L, Anion Gap 21 H, BUN 15, Creatinine 0.67, Estim Creat Clear Calc 47.60, Est GFR (MDRD) Af Amer 111, Est GFR (MDRD) Non-Af 92, BUN/Creatinine Ratio 22.4 H, Glucose 144 H, Calcium 8.6, Total Bilirubin 0.40, AST 26, ALT 28, Alkaline Phosphatase 157 H, Troponin I < 0.015, Total Protein 8.0, Albumin 3.6, Globulin 4.4 H, Albumin/Globulin Ratio 0.8 L, Lipase 237 05/01/20 02:40: Ethyl Alcohol 116.0 05/01/20 04:30: Ethyl Alcohol 62.0 Current Medications Sodium Chloride () 1,000 mls @ 150 mls/hr IV .Q6H40M [facility] Last Admin: 05/01/20 02:42 Dose: 150 mls/hr Documented by: Assessment/Plan All Active Problems Nausea & vomiting (Acute) Prolonged QT interval (Resolved) Fracture of femoral neck, left, closed (Acute) Severe sepsis (Acute) UTI (urinary tract infection) (Acute) Elevated troponin (Acute) Abnormal cardiac enzyme level (Acute) Preop cardiovascular exam (Acute) Acute psychosis (Acute) Hyponatremia (Acute) Opiate withdrawal (Acute) Gastroenteritis (Resolved) Hypomagnesemia (Resolved) Alcoholic hepatitis (Acute) Hypokalemia (Resolved) Alcoholic pancreatitis (Acute) The patient is a 70 y/o F w/ PMHx: Chronic Pain Syndrome (Back pain) following w/ Dr. Mcintosh, Fibromyalgia, HTN, HLD, Hypothyroidism, EtOH Abuse (Denies), Hx Pancreatitis, Anxiety and Depression/Bipolar disorder w/ Prior Suicide Attempt who presents to the [facility] ED on 05/01/20 with history of recent discharge from SNF 2 days prior with recent L hip fracture with repair per Dr. Josh Marie re-presenting secondary to increased generalized pain, more so in her L hip, rated severe 10/10 with nausea and emesis, no cough, congestion, dyspnea, fever, chills with poor oral intake but restarted EtOH intake. 1. Acute Psychosis, Suicidal Ideations: Patient upon presentation secondary to pain stating suicidal ideations, per discussion with the ED physician he notes concern she is unable to be cleared for transition to psychiatric facility. Will admit to medical surgical floor, will maintain on suicide precautions, will continue treatment as noted #2, #3, #4, #5, #6, maintain on fall precautions, plan consultation with crisis once medically cleared, pink slip per ED physician. 2. Hyponatremia, mild: Admission sodium 130, do suspect dehydration especially given elevated specific gravity, ketones present, will continue to aggressively hydrate, trend BMP. 3. Hyperglycemia: Admission glucose 144, will obtain A1c to be cautious. 4. Leukocytosis, unclear specific etiology: Admission CBC with WC 23.4, hemoglobin 14.8, platelet 440 with notable left shift, chest x-ray without acute findings, CT head final read pending but prelim read unremarkable, urinalysis with no obvious evidence of UTI, will continue to aggressively hydrate and plan repeat CBC. 5. Acute Intractable Pain, Suspicious for Acute Opiate Withdrawal: Patient complaints suspicion for opiate withdrawal, will initiate and continue on protocol with tapering course of Subutex, as needed tylenol, ibuprofen, bowel regimen, gabapentin, Bentyl, Vistaril, methocarbamol, clonidine, PRN nightly trazodone for insomnia, IV fluids, IV antiemetics. Case management consulted. 6. EtOH Abuse with chronically elevated liver enzymes, intoxicated upon presentation: Patient and known alcoholic, continues to deny, initial alcohol level upon presentation 116 with repeat follow-up later in the ED course 62, maintain on CIWA protocol, MVI, thiamine and folic acid. Will initiate on phenobarbital taper however need to be cautious as do suspect patient with possible opiate withdrawal with decision to initiate treatment with tapering course of Subutex. CM consulted for substance abuse. Pending magnesium and phosphorus levels. 7. Remote left hip fracture: Status post repair, transition to snf facility following, recent discharge 2 days prior, continue PT and OT assessments as well as case management evaluation for discharge planning. 8. Hypothyroidism: Continue home synthroid regimen. 9. Tobacco Abuse: Encouraged cessation, inpatient consultation per RT, NR if desired. 10. Severe protein calorie malnutrition: Evidenced per habitus with muscle and fat loss obvious, nutrition consulted. 11. Chronic pain syndrome (back pain), fibromyalgia: Following with Dr. Mcintosh, encourage continued outpatient follow-up. 12. Hypertension: We will continue home metoprolol regimen with hold parameters, as needed IV hydralazine. 13. Hyperlipidemia: Not on regimen, defer given age. 14. GERD: PPI. 15. DVT prophylaxis: SCDs, Lovenox. OBSV E&M: 63386 Initial observation care L3
--- NOTE | 2020-05-01 05:32 | ED.DCSUM_ITS ---
- ER Visit Summary Date of Service: 05/01/20 Chief Complaint: [Pain all over] History of Present Illness: The patient is a 70 F [presents to the emergency department complaining of pain all over that she has had for quite some time. Patient states that she recently was admitted to the hospital and had a hip replacement on the left. Patient was discharged to a longterm and then came home a couple of days ago. Let the longterm she was being treated with Percocet. Patient has been drinking vodka tonight. Patient also states that she has been feeling suicidal because of all the pain but has no plan when she would do to harm herself. She denies any auditory or visual hallucinations. Patient denies recent illness. She has had some intermittent nausea and intermittent vomiting but she states that only water is coming up as she has had no appetite and has not been eating much. Patient denies any diarrhea. She has history of alcohol abuse, chronic pancreatitis, back pain, and bipolar disorder.] Physical Examination: [HEENT-PERRLA, EOMI. Cranial nerves II through XII grossly intact. TMs clear. Mucous membranes moist. No adenopathy. Cardiovascular-regular rate and rhythm without murmur or ectopy Lungs-clear to auscultation, chest wall stable without crepitus or subcu emphysema Abdomen-normoactive bowel sounds, soft. Patient has tenderness diffusely. There is no rebound, rigidity, or peritoneal signs. Extremities-intact ?4, normal range of motion, normal pulses, atraumatic] Test Results: [CBC with differential obtained on arrival showed a white count of 23.4, hemoglobin 14.8, hematocrit 45, platelets 440. Chemistries show sodium 130, potassium 3.7, chloride 91, CO2 18, glucose 144, BUN 15 and creatinine 0.67. LFTs unremarkable. Alkaline phosphatase was 157 and lipase was 237. Troponin was less than 0.015. EKG obtained arrival showed a sinus tachycardia with a ventricular rate of [address] scan of the abdomen and pelvis showed some thickening of the esophagus and an appendicolith without evidence of append icitis. Chest x-ray was unremarkable.] Emergency Department Course and Treatment: [IV line established. Patient was given normal saline. Patient was given morphine and Zofran for pain.] Patient given Protonix 80 mg IV bolus. Treatment Plan: [Admit for IV hydration.] Disposition: [Admit] Impression: [Alcohol intoxication Suicidal ideation Dehydration Leukocytosis-etiology uncertain] This note was generated with [employer] dictation software. It may contain incorrect words, spelling, and punctuation that were not noted in review of the chart prior to signing ED Disposition - Plan for ED Patient: Referrals: Brant Howard Chi, MD [Primary Care Provider] -
[2020-05-01] MEDS: Morphine 4 MG/ML Syringe IV (06:03)
[2020-05-01 07:20] LABS: Magnesium 1.8 mg/dL (1.6-2.6); Phosphorus 2.7 mg/dL (2.5-4.9)
--- NOTE | 2020-05-01 07:34 | PCM.HOSP.N ---
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 She recently had left hip fracture repair, ORIF by Dr. Josh Marie and was on pain medication in SNF from where she was discharged 2 days prior to admission. She did not had opioid therefore she drank alcohol in order to release. This time she did not had suicidal attempt but she has history of suicidal attempt in the past. Crisis management team saw the patient and discussed with crisis social and political studies professor Sherlyn. The patient does not have chronic alcohol use disorder or dependence but she had binge drinking in order to relieve pain. She also does not have history of chronic opioid use prior to left hip fracture. With past history of suicidal attempt and possibility of further drinking alcohol after discharge, but thinks she might be a good candidate for inpatient psychiatric facility rehab. Labs reviewed. She has leukocytosis. Ketones 150 suggestive of starvation or from alcohol use. A1c 6.4, in prediabetes range. Magnesium and phosphorus in normal limit. Serum alcohol 116 repeat 162. Laboratory Results 05/01/20 02:20: Urine Opiates Screen NEGATIVE, Urine Methadone Screen NEGATIVE, Ur Barbiturates Screen NEGATIVE, Ur Phencyclidine Scrn NEGATIVE, Ur Amphetamines Screen NEGATIVE, U Methamphetamin-MDMA NEGATIVE, U Benzodiazepines Scrn NEGATIVE, Urine Cocaine Screen NEGATIVE, U Cannabinoids Screen NEGATIVE, Ur Drug Screen Comment 05/01/20 02:20: Urine Color Yellow, Urine Clarity Clear, Urine pH 5.0, Ur Specific [place] 1.025, Urine Protein Negative, Urine Glucose (UA) Normal, Urine Ketones 150 H, Urine Occult Blood Negative, Urine Nitrite Negative, Urine Bilirubin Negative, Urine Urobilinogen Normal, Ur Leukocyte Esterase Negative, Urine RBC 0 SEEN, Urine WBC 0 SEEN, Ur Squamous Epith Cells 0 SEEN, Urine Bacteria 0 SEEN, Urine Mucus 0 SEEN 05/01/20 02:40: WBC 23.4 H, RBC 4.85, Hgb 14.8, Hct 44.6, MCV 92.0, MCH 30.5, MCHC 33.2, RDW Std Deviation 41.3, RDW Coeff of Jonathan 12.3, Plt Count 440, MPV 9.2, Immature Gran % (Auto) 0.700, Neut % (Auto) 85.5 H, Lymph % (Auto) 8.3 L, [place] % (Auto) 5.1, Eos % (Auto) 0.1, Baso % (Auto) 0.3, Absolute Neuts (auto) 20.0 H, Absolute Lymphs (auto) 1.93, Nucleated RBC % 0 05/01/20 02:40: Sodium 130 L, Potassium 3.7, Chloride 91 L, Carbon Dioxide 18.0 L, Anion Gap 21 H, BUN 15, Creatinine 0.67, Estim Creat Clear Calc 47.60, Est GFR (MDRD) Af Amer 111, Est GFR (MDRD) Non-Af 92, BUN/Creatinine Ratio 22.4 H, Glucose 144 H, Calcium 8.6, Total Bilirubin 0.40, AST 26, ALT 28, Alkaline Phosphatase 157 H, Troponin I < 0.015, Total Protein 8.0, Albumin 3.6, Globulin 4.4 H, Albumin/Globulin Ratio 0.8 L, Lipase 237 05/01/20 02:40: Ethyl Alcohol 116.0 05/01/20 02:40: Phosphorus 2.7, Magnesium 1.8 05/01/20 02:40: Hemoglobin A1c 6.4 H 05/01/20 04:30: Ethyl Alcohol 62.0
[2020-05-01 07:46] LABS: Hemoglobin A1c 6.4 % (3.8-5.6)
[2020-05-01] MEDS: Folic Acid 1 MG Tablet PO (07:59)
[2020-05-01] MEDS: Acetaminophen 325 MG Tablet 650 MG PO ×3 (07:59→22:20)
[2020-05-01] MEDS: Thiamine Hydrochloride 100 MG Tablet PO ×2 (07:59→16:16)
[2020-05-01] MEDS: Multivitamins,Ther W-Minerals Tablet 1 TABLET PO (07:59)
[2020-05-01] MEDS: Pantoprazole Sodium 20 MG Tablet PO ×2 (08:00→21:02)
[2020-05-01] MEDS: Phenobarbital 32.4 MG Tablet 97.2 MG PO (08:00)
[2020-05-01] MEDS: Mag Hydrox/Al Hydrox/Simeth 30 ML UDC PO ×2 (08:01→14:42)
[2020-05-01] MEDS: Enoxaparin 40 MG/0.4 ML Syringe SC (10:45)
[2020-05-01] MEDS: Metoprolol Tartrate 25 MG Tablet PO ×2 (10:45→21:02)
--- NOTE | 2020-05-01 12:18 | NT.THERAPY_ITS ---
Nutrition Therapy Report - History Nutrition Services has been consulted to:: Manage nutrient details of diet order Current diet / nutrition support order:: Cardiac diet - Anthropometric Measurements Height:: 5 ft 6 in Weight:: 59.4 kg Body Mass Index (BMI):: 21.1 - Relevant Labs Relevant Labs:: WBC 23.4 K/mm3 (4.4-11.0) H 05/01/20 02:40 Neut % (Auto) 85.5 % (47-70) H 05/01/20 02:40 Lymph % (Auto) 8.3 % (19-41) L 05/01/20 02:40 Absolute Neuts (auto) 20.0 X10^3/uL (2.0-7.7) H 05/01/20 02:40 Sodium 130 mmol/L (136-145) L 05/01/20 02:40 Chloride 91 mmol/L (98-107) L 05/01/20 02:40 Carbon Dioxide 18.0 mmol/L (21.0-32.0) L 05/01/20 02:40 Anion Gap 21 (5-15) H 05/01/20 02:40 BUN/Creatinine Ratio 22.4 RATIO (10-20) H 05/01/20 02:40 Glucose 144 mg/dL (74-106) H 05/01/20 02:40 Hemoglobin A1c 6.4 % (3.8-5.6) H 05/01/20 02:40 Alkaline Phosphatase 157 U/L (45-117) H 05/01/20 02:40 Globulin 4.4 g/dL (2.2-4.2) H 05/01/20 02:40 Albumin/Globulin Ratio 0.8 RATIO (0.9-2.4) L 05/01/20 02:40 - Assessment Food / Nutrition-Related History:: Pt reports UBW~130 lbs and denies recent wt loss; per EMR review note wt about 3 months ago~135 lbs; calculated ~3-4% wt loss x 2-3 months and 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 Pt appears to have mild to moderate fat/muscle wasting in the face and upper body. 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 Intake to be established w/ meals--will offer ONS as tolerated. 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 Evidence of Malnutrition Exists:: Yes Moderate PCM:: Social & Environmental circumstances - Nutrition Intervention Nutrition Prescription:: Estimated nutrition needs for repletion~2284-1120 kcal and ~70-80 gm protein/day. - Food / Nutrient Delivery Interventions Summary of nutrition intervention:: Will offer ONS w/ meals 240 ml ensure clear (240 calories & 8 gm protein) w/ breakfast and magic cup BID (290 calories & 9 gm protein per serving) w/ lunch and dinner as tolerated. Nutrition support ordered as / adjusted to:: no nutrition support Nutrition education provided?: No - MNT Monitoring Further MNT monitoring and evaluation required?: Yes MNT Follow-up in:: 3-5 days
--- NOTE | 2020-05-01 12:41 | CASEMGMT ---
Social Work Note Pt is medically cleared for Crisis evaluation. RN called crisis. SW faxed referral to Crisis. Jeanette Wright HOT IRON WORKER, RENTAL AGENT
--- NOTE | 2020-05-01 12:44 | NURSING ---
spoke with [facility] regarding pt status as she was there 2 days prior to admission. they report that she was ambulating independently only using a walker or wheelchair for long distances. she was taking 1 percocet q6h for pain and had no alcohol intake. they report that she was anxious about being DC home and wanted to stay at their facility. updated med list based on her discharge instructions from [facility]. pt told this RN that she went home and was supposed to have pain meds but the wires got crossed somewhere and I never got them. she reports that she was painful on Friday but it became unbearable on Friday and she started drinking to help with the pain. asked what she drank and how much and pt was not able to give description. she reported that she only drank a little and then started to vomit. Dr Jacome updated on all of the above and he stated pt medically cleared for crisis consult. he will assess the need for phenobarb or subutex taper. he instructed this RN to hold the 1200 phenobarb as ordered. crisis was called by this RN and SAM Reid faxed over requested information.
[2020-05-01] MEDS: BENZOCAINE/MENTHOL 1 LOZENGE MUCOUS MEM ×3 (14:42→20:28)
[2020-05-01] MEDS: Methocarbamol 750 MG Tablet 1500 MG PO ×2 (16:16→22:20)
[2020-05-02] MEDS: MELATONIN 3 MG TABLET PO (01:37)
[2020-05-02 02:51] VITALS: BP 114/62; PULSE 73; RESP 18; TEMP 37.1; O2SAT 97
[2020-05-02] MEDS: 0.9% Normal Saline 1,000 ML 150 ML IV ×2 (02:53→09:14)
[2020-05-02] MEDS: Methocarbamol 750 MG Tablet 1500 MG PO ×3 (04:43→18:20)
[2020-05-02] MEDS: Acetaminophen 325 MG Tablet 650 MG PO (04:43)
[2020-05-02 06:16] LABS: Absolute Lymphocyte Count 1.41 X10^3/uL (0.83-4.51); Absolute Neutrophil Count 5.9 X10^3/uL (2.0-7.7); Basophil# 0.02 X10^3/uL; Basophil% 0.2 % (0-1); Eosinophil# 0.03 X10^3/uL; Eosinophils% 0.4 % (0-5); Hematocrit 31.7 % (37-47); Hemoglobin 10.2 g/dL (12.0-15.0); Lymphocyte # 1.41 X10^3/ul (4.0); Lymphocyte % 17.2 % (19-41); Mean Corp Hgb Conc 32.2 g/dL (32-36); Mean Corpuscular Hgb 29.6 pg (27.0-32.0); Mean Corpuscular Volume 91.9 fL (81-99); Mean Platelet Vol. 9.3 fl (6.2-12.0); Monocyte# 0.86 X10^3/uL; Monocyte% 10.5 % (0-10); NRBC Flagged by Analyzer 0 % (0-5); Neutrophil # 5.85 X10^3/uL (2.7-7.7); Neutrophil % 71.5 % (47-70); Platelet Count 198 K/mm3 (150-450); RBC Distribution Width CV 12.3 % (11.6-14.6); RBC Distribution Width SD 41.3 fl (35.1-43.9); Red Blood Count 3.45 M/mm3 (4.2-5.4); White Blood Count 8.2 K/mm3 (4.4-11.0)
[2020-05-02 06:56] LABS: ALB/GLOB Ratio 0.8 RATIO (0.9-2.4); AST(SGOT) 13 U/L (15-37); Alanine Aminotransfer ALT/SGPT 15 U/L (13-56); Albumin, Serum 2.6 g/dL (3.2-5.0); Alkaline Phosphatase 96 U/L (45-117); Anion Gap 6 (5-15); BUN 7 mg/dL (7-18); BUN/Creat Ratio 16.9 RATIO (10-20); Calcium,Total 7.5 mg/dL (8.5-10.1); Chloride 108 mmol/L (98-107); Creatinine, Serum 0.42 mg/dL (0.55-1.02); EST Glomerular Filtration Rate 160 mL/min (>60); Est Glom Filt Rate - Afr Amer 193 mL/min (>60); Globulin 3.2 g/dL (2.2-4.2); Glucose 151 mg/dL (74-106); Magnesium 1.9 mg/dL (1.6-2.6); Phosphorus 0.9 mg/dL (2.5-4.9); Potassium 3.2 mmol/L (3.5-5.1); Protein, Total 5.8 g/dL (6.4-8.2); Sodium Level 139 mmol/L (136-145)
[2020-05-02 08:50] VITALS: BP 155/74; PULSE 81; RESP 18; TEMP 36.8; O2SAT 98
[2020-05-02] MEDS: Folic Acid 1 MG Tablet PO (09:11)
[2020-05-02] MEDS: Thiamine Hydrochloride 100 MG Tablet PO ×2 (09:11→15:59)
[2020-05-02] MEDS: Pantoprazole Sodium 20 MG Tablet PO (09:11)
[2020-05-02 09:12] VITALS: BP 155/74; PULSE 81
[2020-05-02] MEDS: Multivitamins,Ther W-Minerals Tablet 1 TABLET PO (09:12)
[2020-05-02] MEDS: Aspirin E.C. 81 MG Tablet PO (09:12)
[2020-05-02] MEDS: Metoprolol Tartrate 25 MG Tablet PO (09:12)
[2020-05-02] MEDS: Enoxaparin 40 MG/0.4 ML Syringe SC (09:13)
[2020-05-02] MEDS: Mag Hydrox/Al Hydrox/Simeth 30 ML UDC PO (09:22)
[2020-05-02] MEDS: Ibuprofen 600 MG Tablet PO (11:42)
--- NOTE | 2020-05-02 12:49 | CASEMGMT ---
LEYDA KAY completed DANIEL form with patient. RN RAHUL explained DANIEL form to patient, patient voiced understanding. Patient states she does not want to sign form. Verbal consent given and witnessed by nurse in room. Patient provided with copy of DANIEL form. Patient had no further questions or concerns at this time.
--- NOTE | 2020-05-02 13:21 | PCM.PN.HOSP ---
Patient Problems: Active and Suspected Problems Acute psychosis (Acute) Hyponatremia (Acute) Opiate withdrawal (Acute) Vitals/I&O's: Vital Signs Temp Pulse Resp BP Pulse Ox 98.3 F 81 18 155/74 H 98 05/02/20 08:50 05/02/20 09:12 05/02/20 08:50 05/02/20 09:12 05/02/20 08:50 Oxygen Delivery Method Room Air Weight: 130 lb 15.273 oz Body Mass Index (BMI) 21.1 Finger Stick Blood Glucose 103 Intake and Output for Last 24 Hours 04/30/20 05/01/20 05/02/20 23:59 23:59 23:59 Intake Total 3437.5 / 3437.5 3005.0 / 3005.0 Balance 3437.5 / 3437.5 3005.0 / 3005.0 Laboratory Results 05/02/20 05:30: WBC 8.2, RBC 3.45 L, Hgb 10.2 L, Hct 31.7 L, MCV 91.9, MCH 29.6, MCHC 32.2, RDW Std Deviation 41.3, RDW Coeff of Jonathan 12.3, Plt Count 198, MPV 9.3, Immature Gran % (Auto) 0.200, Neut % (Auto) 71.5 H, Lymph % (Auto) 17.2 L, Hendricks % (Auto) 10.5 H, Eos % (Auto) 0.4, Baso % (Auto) 0.2, Absolute Neuts (auto) 5.9, Absolute Lymphs (auto) 1.41, Nucleated RBC % 0 05/02/20 05:30: Sodium 139, Potassium 3.2 L, Chloride 108 H, Carbon Dioxide 25.0, Anion Gap 6, BUN 7, Creatinine 0.42 L, Estim Creat Clear Calc 47.60, Est GFR (MDRD) Af Amer 193, Est GFR (MDRD) Non-Af 160, BUN/Creatinine Ratio 16.9, Glucose 151 H, Calcium 7.5 L, Phosphorus 0.9 L*, Magnesium 1.9, Total Bilirubin 0.60, AST 13 L, ALT 15, Alkaline Phosphatase 96, Total Protein 5.8 L, Albumin 2.6 L, Globulin 3.2, Albumin/Globulin Ratio 0.8 L Current Medications Acetaminophen (Acetaminophen 325 Mg Tablet) 650 mg PO Q6H PRN PRN PRN Reason: Pain Score 1-10/Temp > 100.7 F Last Admin: 05/02/20 04:43 Dose: 650 mg Documented by: Al Hydroxide/Mg Hydroxide (Mag Hydrox/Al Hydrox/Simeth 30 Ml Udc) 30 ml PO Q6H PRN PRN PRN Reason: Gastric Burning Last Admin: 05/02/20 09:22 Dose: 30 ml Documented by: Albuterol Sulfate (Albuterol 2.5 Mg/3 Ml Vial.Neb.) 2.5 mg INHALATION Q2H PRN PRN PRN Reason: Dyspnea, wheezing Aspirin (Aspirin E.C. 81 Mg Tablet) 81 mg PO DAILY@0800 [facility] Last Admin: 05/02/20 09:12 Dose: 81 mg Documented by: Bisacodyl (Bisacodyl 10 Mg Suppository) 10 mg RECTAL DAILY PRN PRN Reason: Constipation Buprenorphine HCl (Buprenorphine Hcl 2 Mg Tab.Subl) 0 mg SL Q8H [facility]; Taper Stop: 05/04/20 06:53 Clonidine (Clonidine Hcl 0.1 Mg Tablet) 0.1 mg PO Q8H PRN PRN PRN Reason: RESTLESSNESS Dicyclomine HCl (Dicyclomine 10 Mg Capsule) 20 mg PO Q6H PRN PRN PRN Reason: Abdominal Discomfort Enoxaparin Sodium (Enoxaparin 40 Mg/0.4 Ml Syringe) 40 mg SC DAILY [facility] Last Admin: 05/02/20 09:13 Dose: 40 mg Documented by: Folic Acid (Folic Acid 1 Mg Tablet) 1 mg PO DAILY@0800 [facility] Stop: 05/03/20 08:01 Last Admin: 05/02/20 09:11 Dose: 1 mg Documented by: Gabapentin (Gabapentin 300 Mg Capsule) 300 mg PO Q8H PRN PRN PRN Reason: moderate to severe anxiety Guaifenesin (Guaifenesin 10 Ml Udc (200mg/10ml)) 20 ml PO Q4H PRN PRN PRN Reason: COUGH Hydralazine HCl (Hydralazine 20 Mg/Ml Vial) 10 mg IV Q4H PRN PRN PRN Reason: SBP > 160 Hydroxyzine Pamoate (Hydroxyzine Crystal 25 Mg Capsule) 50 mg PO Q6H PRN PRN PRN Reason: mild anxiety Sodium Chloride () 250 mls @ 15 mls/hr IV .[id number] PRN PRN Reason: Saline Flush Sodium Chloride () 250 mls @ 15 mls/hr IV .[id number] PRN PRN Reason: Additional IVPB Infusion Sodium Chloride () 1,000 mls @ 150 mls/hr IV .[id number] JAYLON Last Admin: 05/02/20 09:14 Dose: 150 mls/hr Documented by: Potassium Phosphate 40 mm/ (Sodium Chloride) 513.3333 mls @ 62.5 mls/hr IV X1 ONE Stop: 05/02/20 16:03 Last Admin: 05/02/20 09:08 Dose: 62.5 mls/hr Documented by: Ibuprofen (Ibuprofen 600 Mg Tablet) 600 mg PO Q8H PRN PRN PRN Reason: Pain Score 1-10 Last Admin: 05/02/20 11:42 Dose: 600 mg Documented by: Lidocaine/Diphenhydr/Alum/Mg/Simeth (Bmx Liquid 180 Ml) 10 ml PO Q3H PRN PRN PRN Reason: GI distress Loperamide HCl (Loperamide 2 Mg Capsule) 2 mg PO Q4H PRN PRN PRN Reason: LOOSE STOOLS Lorazepam (Lorazepam 1 Mg Tablet) 2 mg PO Q2H PRN PRN; Protocol PRN Reason: CIWA score > 8 but <15 Lorazepam (Lorazepam 1 Mg Tablet) 2 mg PO UD PRN; Protocol PRN Reason: CIWA score >/=15. Lorazepam (Lorazepam 2 Mg/Ml Syringe) 2 mg IV Q2H PRN PRN; Protocol PRN Reason: CIWA score > 8 but <15 Lorazepam (Lorazepam 2 Mg/Ml Syringe) 2 mg IV UD PRN; Protocol PRN Reason: CIWA score >/=15. Magnesium Hydroxide (Magnesium Hydroxide 30 Ml Udc) 30 ml PO DAILY PRN PRN PRN Reason: Constipation Melatonin (Melatonin 3 Mg Tablet) 3 mg PO QHS PRN PRN PRN Reason: INSOMNIA Last Admin: 05/02/20 01:37 Dose: 3 mg Documented by: Methocarbamol (Methocarbamol 750 Mg Tablet) 1,500 mg PO Q6H PRN PRN PRN Reason: MUSCLE SPASM Last Admin: 05/02/20 11:42 Dose: 1,500 mg Documented by: Metoprolol Tartrate (Metoprolol Tartrate 25 Mg Tablet) 25 mg PO BID [facility] Last Admin: 05/02/20 09:12 Dose: 25 mg Documented by: Multivitamins/Minerals ([facility]ivitamins,Ther [facility]) [facility] Last Admin: 05/02/20 09:12 Dose: 1 tablet Documented by: Nicotine (Nicotine 14 Mg Patch) 14 mg TRANSDERM. DAILY [facility] Last Admin: 05/02/20 09:11 Dose: 14 mg Documented by: Nitroglycerin (Nitroglycerin (Inpatient Use) 0.4 Mg Tab.Subl) 0.4 mg SUBLINGUAL Q5M PRN PRN Reason: CARDIAC/CHEST PAIN Ondansetron HCl (Ondansetron 4 Mg/2 Ml Vial) 4 mg IV Q8H PRN PRN PRN Reason: NAUSEA/VOMITING Pantoprazole Sodium (Pantoprazole Sodium 20 Mg Tablet) 20 mg PO BID [facility] Last Admin: 05/02/20 09:11 Dose: 20 mg Documented by: Promethazine HCl (Promethazine 25 Mg/Ml Syringe) 6.25 mg IV Q6H PRN PRN PRN Reason: NAUSEA/VOMITING Psyllium Hydrophilic Mucilloid (Psyllium 1 Packet) 1 packet PO DAILY PRN PRN PRN Reason: Constipation Senna (Senna Tablet) 2 tablet PO QHS PRN PRN Reason: Constipation Senna/Docusate Sodium (Senna/Docusate Sodium 1 Tablet) 2 tablet PO BID PRN PRN PRN Reason: Constipation Sodium Chloride (0.9% Saline Lock 10 Ml Syringe) 10 - 40 ml IV UD PRN PRN Reason: SALINE FLUSH Thiamine HCl ([facility] Hydro[facility] 100 Mg [facility]) [facility] Stop: 05/03/20 17:01 Last Admin: 05/02/20 09:11 Dose: 100 mg Documented by: Throat Lozenges (Benzocaine/Menthol 1 Lozenge) 1 lozenge MUCOUS MEM Q2H PRN PRN PRN Reason: SORE THROAT Last Admin: 05/01/20 20:28 Dose: 1 lozenge Documented by: Trazodone HCl (Trazodone 50 Mg Tablet) 50 mg PO QHS PRN PRN PRN Reason: INSOMNIA Medical Necessity - Tobacco Use Smoking Status: Current every day smoker Tobacco Use: Cigarettes Assessment/Plan All Active Problems Nausea & vomiting (Acute) Prolonged QT interval (Resolved) Fracture of femoral neck, left, closed (Acute) Severe sepsis (Acute) UTI (urinary tract infection) (Acute) Elevated troponin (Acute) Abnormal cardiac enzyme level (Acute) Preop cardiovascular exam (Acute) Acute psychosis (Acute) Hyponatremia (Acute) Opiate withdrawal (Acute) Gastroenteritis (Resolved) Hypomagnesemia (Resolved) Alcoholic hepatitis (Acute) Hypokalemia (Resolved) Alcoholic pancreatitis (Acute) The patient is a 70 y/o F WITH multiple comorbidities with history of bipolar disorder and prior suicidal attempt was admitted with acute psychosis with suicidal ideation.She recently had left hip fracture repair, ORIF by Dr. Josh Marie and was on pain medication in SNF from where she was discharged 2 days prior to admission. She did not had opioid dependence but she drank alcohol in order to relieve pain. 1. Acute Psychosis, Suicidal Ideations: This times she denies any suicidal attempt. Patient was seen by crisis management team and LEYDA Plata told me that she drinks alcohol in order to relieve the pain, the same history by me, and the admitting physician. She further said she will talk to the psychiatrist in order to facilitate transfer to inpatient psych hospital 2. Mild hyponatremia mainly hypotonic hypovolemic hyponatremia: Repeat sodium corrected 139. Potassium 3.2 and is getting replaced. Magnesium 1.9. Severe hypophosphatemia, 0.9. IV potassium phosphate getting replaced. 3. Hyperglycemia, prediabetes: A1c 6.4. 4. Leukocytosis, unclear specific etiology: Repeat WBC count 8.2 thousand. 5. Remote left hip fracture status post ORIF. 6. Her comorbidities include hypothyroidism, hypertension, dyslipidemia and GERD: Stable Other comorbidities include hypothyroidism, chronic cigarette smoking/nicotine dependence, moderate protein calorie malnutrition as evidenced by 3 to 4% weight loss in the past 2 to 3 months, poor appetite suboptimal energy intake and mild to moderate subcutaneous fat loss and muscle wasting. DVT prophylaxis: SCDs, Lovenox. Inpatient E&M: [id number] [facility] Hosp L2
[2020-05-02] MEDS: Lisinopril 10 MG Tablet PO (14:44)
[2020-05-02 14:47] VITALS: BP 132/66; PULSE 70; RESP 18; TEMP 36.8; O2SAT 98
[2020-05-02 15:27] VITALS: O2SAT 95
[2020-05-02] MEDS: BMX LIQUID 180 ML 10 ML PO (15:58)
--- NOTE | 2020-05-02 16:59 | NURSING ---
called report to Juanita at [facility] with report. Transport time unknown at this time.
--- NOTE | 2020-05-02 17:08 | PCM.DC.SUM ---
Discharge Date and Diagnosis - Problem List Patient Problems: Active and Suspected Problems Acute psychosis (Acute) Hyponatremia (Acute) Opiate withdrawal (Acute) Date of Admission: 05/01/20 Date of Discharge: 05/02/20 - Primary Discharge Diagnosis Acute Problems: Active Problems Acute psychosis (Acute) Hyponatremia (Acute) Opiate withdrawal (Acute) - Secondary Discharge Diagnosis Chronic Problems: Chronic Problems Debility (Chronic) Autoimmune pancreatitis (Chronic) Alcohol dependence (Chronic) Psoriatic arthritis (Chronic) Severe protein-calorie malnutrition (Chronic) HLD (hyperlipidemia) (Chronic) GERD (gastroesophageal reflux disease) (Chronic) Tobacco use (Chronic) Hepatic steatosis (Chronic) Acute recurrent pancreatitis (Chronic) Abnormal LFTs (Chronic) Alcohol abuse (Chronic) Hypertension (Chronic) Hypothyroidism (Chronic) Anxiety (Chronic) Fibromyalgia (Chronic) Dysphagia (Chronic) Rheumatoid arthritis (Chronic) never confirmed.....RA is negative.....tells me that she has psoriatic arthritis Psoriasis (Chronic) Chronic back pain (Chronic) osteoarthritis Delusional disorder (Chronic) Bipolar disorder (Chronic) Depression with H/o suicidal attempt (Chronic) Hospital Course and Treatment Consultations 05/01/20 12:02 Crisis [Consult: Mental Health/Crisis] Routine Reason for consult?: pink slip with suicide attempt Date Notified:: 05/01/20 Time Notified:: 12:05 Operations: None Summary of Care Provided: The patient is a 70 y/o F WITH multiple comorbidities with history of bipolar disorder and prior suicidal attempt was admitted with acute psychosis with suicidal ideation.She recently had left hip fracture repair, ORIF by Dr. Josh Marie and was on pain medication in SNF from where she was discharged 2 days prior to admission. She did not had opioid dependence but she drank alcohol in order to relieve pain. She was further admitted to [facility] floor with a diagnosis of acute psychosis with suicidal ideation. Patient was seen by crisis management team and agree with transfer to inpatient psych facility for further management. Patient had mild hypotonic, hypovolemic hyponatremia which got normal after IV fluid normal saline. Mild hypokalemia, K3.2 was replaced. Severe hypophosphatemia, 0.9. IV potassium phosphate getting replaced. Patient other comorbidities include hyperglycemia, prediabetes, recent left hip fracture status post ORIF, hypothyroidism, hypertension, dyslipidemia and GERD. Please see H&P and progress note for detail. Total time of the visit including total time spent in counseling or coordination of care, (more than 50% of the total time, spent in obtaining medical information from nurses and other ancillary care providers,explaining to the patient about labs, imaging, diagnosis and management), discussion with the crisis management team, review of labs and imaging is 30 minutes. Patient discharged to inpatient psych facility. Patient Problems: Active and Suspected Problems Acute psychosis (Acute) Hyponatremia (Acute) Opiate withdrawal (Acute) Objective: Patient heart rate and blood pressures, RR and pulse ox are normal. Please see progress note of the same date for physical exam findings. - Physical Exam Vitals/I&O's: Vital Signs Temp Pulse Resp BP Pulse Ox 98.3 F 70 18 132/66 H 95 05/02/20 14:47 05/02/20 14:47 05/02/20 14:47 05/02/20 14:47 05/02/20 15:27 Oxygen Delivery Method Room Air Weight: 130 lb 15.273 oz Body Mass Index (BMI) 21.1 Finger Stick Blood Glucose 103 Intake and Output for Last 24 Hours 04/30/20 05/01/20 05/02/20 23:59 23:59 23:59 Intake Total 3437.5 / 3437.5 4365.0 / 4365.0 Balance 3437.5 / 3437.5 4365.0 / 4365.0 Microbiology Past 72 Hours 05/02/20 12:40 Interface Orders SARS-CoV-2 Antigen (Rapid) - Final Laboratory Results 05/02/20 05:30: WBC 8.2, RBC 3.45 L, Hgb 10.2 L, Hct 31.7 L, MCV 91.9, MCH 29.6, MCHC 32.2, RDW Std Deviation 41.3, RDW Coeff of Jonathan 12.3, Plt Count 198, MPV 9.3, Immature Gran % (Auto) 0.200, Neut % (Auto) 71.5 H, Lymph % (Auto) 17.2 L, Nicholas % (Auto) 10.5 H, Eos % (Auto) 0.4, Baso % (Auto) 0.2, Absolute Neuts (auto) 5.9, Absolute Lymphs (auto) 1.41, Nucleated RBC % 0 05/02/20 05:30: Sodium 139, Potassium 3.2 L, Chloride 108 H, Carbon Dioxide 25.0, Anion Gap 6, BUN 7, Creatinine 0.42 L, Estim Creat Clear Calc 47.60, Est GFR (MDRD) Af Amer 193, Est GFR (MDRD) Non-Af 160, BUN/Creatinine Ratio 16.9, Glucose 151 H, Calcium 7.5 L, Phosphorus 0.9 L*, Magnesium 1.9, Total Bilirubin 0.60, AST 13 L, ALT 15, Alkaline Phosphatase 96, Total Protein 5.8 L, Albumin 2.6 L, Globulin 3.2, Albumin/Globulin Ratio 0.8 L Current Medications Acetaminophen (Acetaminophen 325 Mg Tablet) 650 mg PO Q6H PRN PRN PRN Reason: Pain Score 1-10/Temp > 100.7 F Last Admin: 05/02/20 04:43 Dose: 650 mg Documented by: Al Hydroxide/Mg Hydroxide (Mag Hydrox/Al Hydrox/Simeth 30 Ml Udc) 30 ml PO Q6H PRN PRN PRN Reason: Gastric Burning Last Admin: 05/02/20 09:22 Dose: 30 ml Documented by: Albuterol Sulfate (Albuterol 2.5 Mg/3 Ml Vial.Neb.) 2.5 mg INHALATION Q2H PRN PRN PRN Reason: Dyspnea, wheezing Aspirin (Aspirin E.C. 81 Mg Tablet) 81 mg PO DAILY@0800 [facility] Last Admin: 05/02/20 09:12 Dose: 81 mg Documented by: Bisacodyl (Bisacodyl 10 Mg Suppository) 10 mg RECTAL DAILY PRN PRN Reason: Constipation Buprenorphine HCl (Buprenorphine Hcl 2 Mg Tab.Subl) 0 mg SL Q8H [facility]; Taper Stop: 05/04/20 06:53 Clonidine (Clonidine Hcl 0.1 Mg Tablet) 0.1 mg PO Q8H PRN PRN PRN Reason: RESTLESSNESS Dicyclomine HCl (Dicyclomine 10 Mg Capsule) 20 mg PO Q6H PRN PRN PRN Reason: Abdominal Discomfort Enoxaparin Sodium (Enoxaparin 40 Mg/0.4 Ml Syringe) 40 mg SC DAILY [facility] Last Admin: 05/02/20 09:13 Dose: 40 mg Documented by: Folic Acid (Folic Acid 1 Mg Tablet) 1 mg PO DAILY@0800 [facility] Stop: 05/03/20 08:01 Last Admin: 05/02/20 09:11 Dose: 1 mg Documented by: Gabapentin (Gabapentin 300 Mg Capsule) 300 mg PO Q8H PRN PRN PRN Reason: moderate to severe anxiety Guaifenesin (Guaifenesin 10 Ml Udc (200mg/10ml)) 20 ml PO Q4H PRN PRN PRN Reason: COUGH Hydralazine HCl (Hydralazine 20 Mg/Ml Vial) 10 mg IV Q4H PRN PRN PRN Reason: SBP > 180 Hydroxyzine Pamoate (Hydroxyzine Crystal 25 Mg Capsule) 50 mg PO Q6H PRN PRN PRN Reason: mild anxiety Sodium Chloride () 250 mls @ 15 mls/hr IV .[id number] PRN PRN Reason: Saline Flush Sodium Chloride () 250 mls @ 15 mls/hr IV .[id number] PRN PRN Reason: Additional IVPB Infusion Ibuprofen (Ibuprofen 600 Mg Tablet) 600 mg PO Q8H PRN PRN PRN Reason: Pain Score 1-10 Last Admin: 05/02/20 11:42 Dose: 600 mg Documented by: Lactulose (Lactulose 20 Gm/30 Ml Udc) 10 gm PO BID [facility] Lidocaine/Diphenhydr/Alum/Mg/Simeth (Bmx Liquid 180 Ml) 10 ml PO Q3H PRN PRN PRN Reason: GI distress Last Admin: 05/02/20 15:58 Dose: 10 ml Documented by: Lisinopril (Lisinopril 10 Mg Tablet) 10 mg PO DAILY [facility] Last Admin: 05/02/20 14:44 Dose: 10 mg Documented by: Loperamide HCl (Loperamide 2 Mg Capsule) 2 mg PO Q4H PRN PRN PRN Reason: LOOSE STOOLS Lorazepam (Lorazepam 1 Mg Tablet) 2 mg PO Q2H PRN PRN; Protocol PRN Reason: CIWA score > 8 but <15 Lorazepam (Lorazepam 1 Mg Tablet) 2 mg PO UD PRN; Protocol PRN Reason: CIWA score >/=15. Lorazepam (Lorazepam 2 Mg/Ml Syringe) 2 mg IV Q2H PRN PRN; Protocol PRN Reason: CIWA score > 8 but <15 Lorazepam (Lorazepam 2 Mg/Ml Syringe) 2 mg IV UD PRN; Protocol PRN Reason: CIWA score >/=15. Melatonin (Melatonin 3 Mg Tablet) 3 mg PO QHS PRN PRN PRN Reason: INSOMNIA Last Admin: 05/02/20 01:37 Dose: 3 mg Documented by: Methocarbamol (Methocarbamol 750 Mg Tablet) 1,500 mg PO Q6H PRN PRN PRN Reason: MUSCLE SPASM Last Admin: 05/02/20 11:42 Dose: 1,500 mg Documented by: Metoprolol Tartrate (Metoprolol Tartrate 25 Mg Tablet) 25 mg PO BID [facility] Last Admin: 05/02/20 09:12 Dose: 25 mg Documented by: Multivitamins/Minerals (Multivitamins,Ther W-Minerals Tablet) [facility] Last Admin: 05/02/20 09:12 Dose: 1 tablet Documented by: Nicotine (Nicotine 14 Mg Patch) 14 mg TRANSDERM. DAILY [facility] Last Admin: 05/02/20 09:11 Dose: 14 mg Documented by: Nitroglycerin (Nitroglycerin (Inpatient Use) 0.4 Mg Tab.Subl) 0.4 mg SUBLINGUAL Q5M PRN PRN Reason: CARDIAC/CHEST PAIN Ondansetron HCl (Ondansetron 4 Mg/2 Ml Vial) 4 mg IV Q8H PRN PRN PRN Reason: NAUSEA/VOMITING Pantoprazole Sodium (Pantoprazole Sodium 20 Mg Tablet) 20 mg PO BID [facility] Last Admin: 05/02/20 09:11 Dose: 20 mg Documented by: Promethazine HCl (Promethazine 25 Mg/Ml Syringe) 6.25 mg IV Q6H PRN PRN PRN Reason: NAUSEA/VOMITING Psyllium Hydrophilic Mucilloid (Psyllium 1 Packet) 1 packet PO DAILY PRN PRN PRN Reason: Constipation Senna (Senna Tablet) 2 tablet PO QHS PRN PRN Reason: Constipation Senna/Docusate Sodium (Senna/Docusate Sodium 1 Tablet) 2 tablet PO BID PRN PRN PRN Reason: Constipation Sodium Chloride (0.9% Saline Lock 10 Ml Syringe) 10 - 40 ml IV UD PRN PRN Reason: SALINE FLUSH Thiamine HCl (Thiamine Hydrochloride 100 Mg Tablet) [facility] Stop: 05/03/20 17:01 Last Admin: 05/02/20 15:59 Dose: 100 mg Documented by: Throat Lozenges (Benzocaine/Menthol 1 Lozenge) 1 lozenge MUCOUS MEM Q2H PRN PRN PRN Reason: SORE THROAT Last Admin: 05/01/20 20:28 Dose: 1 lozenge Documented by: Trazodone HCl (Trazodone 50 Mg Tablet) 50 mg PO QHS PRN PRN PRN Reason: INSOMNIA Home Medications: Medications to take at Discharge RX: Aspirin E.C. [Ecotrin] 81 mg PO DAILY@0800 tab 02/09/20 RX: Metoprolol Tartrate [Lopressor (beta rené)] 25 mg PO BID tab 02/09/20 Oxycodone HCl/Acetaminophen [Percocet 5-325] 1 tab PO Q6H PRN 05/01/20 RX: Lactulose 10 gm PO BID 05/01/20 RX: Meloxicam 7.5 mg PO DAILY 05/01/20 Primary Care Physician: Brant Howard Chi, MD [Primary Care Provider] - Medical Necessity - Tobacco Use Smoking Status: Current every day smoker Tobacco Use: Cigarettes Meaningful Use Info Meaningful Use Diagnoses (Choose all that apply): None applicable Please cancel the billing charge of progress note of the same date. Inpatient E&M: [id number] [facility] Hosp
[2020-05-02] MEDS: LORazepam 1 MG Tablet 2 MG PO (18:19)
[2020-05-02 20:06] VITALS: BP 115/49; PULSE 97; RESP 18; TEMP 36.9; O2SAT 96
[2020-05-02] MEDS: 0.9% Saline Lock 10 ML Syringe IV (20:55)
[2020-05-02] MEDS: LORazepam 2 MG/ML Syringe IV (20:55)
== END 2020-05-02 21:05 ==
LOC: ED 05:55 → MS3 06:13
PROVIDERS: Admitting Provider Family Medicine; Emergency Provider Emergency Medicine; PCP Family Medicine Geriatric Medicine; Visit Provider Internal Medicine
DX: F23 Brief psychotic disorder (principal); E87.1 Hypo-osmolality and hyponatremia; F11.23 Opioid dependence with withdrawal; E43 Unspecified severe protein-calorie malnutrition; E78.5 Hyperlipidemia, unspecified; K21.9 Gastro-esophageal reflux disease without esophagitis; F10.29 Alcohol dependence with unspecified alcohol-induced disorder; F31.9 Bipolar disorder, unspecified; I10 Essential (primary) hypertension; M06.9 Rheumatoid arthritis, unspecified; L40.50 Arthropathic psoriasis, unspecified; F41.9 Anxiety disorder, unspecified; F17.210 Nicotine dependence, cigarettes, uncomplicated; R45.851 Suicidal ideations; E03.9 Hypothyroidism, unspecified; G89.4 Chronic pain syndrome; M79.7 Fibromyalgia; E86.0 Dehydration; R73.03 Prediabetes; E86.1 Hypovolemia; E87.6 Hypokalemia; Z79.899 Other long term (current) drug therapy; Z79.82 Long term (current) use of aspirin; Z68.21 Body mass index [BMI] 21.0-21.9, adult; Z87.81 Personal history of (healed) traumatic fracture
CPT/HCPCS: 71045; 74176; 80053; 80307; 80320; 81001; 83036; 83690; 83735; 84100; 84484; 85025; 87426; 93005; 96361; 96365; 96372; 96375; 97110; 97162; 97166; 97535; 97802; 99218; 99251; 99285; 99406; J7030; J7040; A4216; G0378; G0463; G0480; J2405

== ENCOUNTER 2020-05-10 16:27 | Inpatient (IN) | payer MEDICARE, SELFPAY ==
[2020-05-01 12:20] VITALS: BMI 21.1
[2020-05-10 16:37] VITALS: BP 113/79; PULSE 118; RESP 22; TEMP 36.2; O2SAT 99; BMI 22.1
--- NOTE | 2020-05-10 17:07 | EKG12_ITS ---
Test Reason : Blood Pressure : / mmHG Vent. Rate : 115 BPM Atrial Rate : 115 BPM P-R Int : 144 ms QRS Dur : 072 ms QT Int : 354 ms P-R-T Axes : 059 020 047 degrees QTc Int : 489 ms Sinus tachycardia Otherwise normal ECG Confirmed by MAKEDA LORENZ, ARLETH ([id number]), proposal editor DORINA HELLER ([id number]) on 05/12/2020 3:34:18 PM Referred By: Confirmed By:ESTEFANY ASHFORD MD
[2020-05-10 17:11] LABS: Absolute Lymphocyte Count 1.33 X10^3/uL (0.83-4.51); Absolute Neutrophil Count 7.6 X10^3/uL (2.0-7.7); Basophil# 0.02 X10^3/uL; Basophil% 0.2 % (0-1); Eosinophil# 0.02 X10^3/uL; Eosinophils% 0.2 % (0-5); Hematocrit 39.1 % (37-47); Hemoglobin 13.2 g/dL (12.0-15.0); Lymphocyte # 1.33 X10^3/ul (4.0); Lymphocyte % 13.5 % (19-41); Mean Corp Hgb Conc 33.8 g/dL (32-36); Mean Corpuscular Hgb 29.5 pg (27.0-32.0); Mean Corpuscular Volume 87.5 fL (81-99); Mean Platelet Vol. 8.4 fl (6.2-12.0); Monocyte# 0.84 X10^3/uL; Monocyte% 8.5 % (0-10); NRBC Flagged by Analyzer 0 % (0-5); Neutrophil # 7.59 X10^3/uL (2.7-7.7); Neutrophil % 77.1 % (47-70); Platelet Count 315 K/mm3 (150-450); RBC Distribution Width CV 12.9 % (11.6-14.6); Red Blood Count 4.47 M/mm3 (4.2-5.4); White Blood Count 9.9 K/mm3 (4.4-11.0)
[2020-05-10 17:19] LABS: Anion Gap 15 (5-15); BUN 14 mg/dL (7-18); BUN/Creat Ratio 24.4 RATIO (10-20); Calcium,Total 9.1 mg/dL (8.5-10.1); Chloride 98 mmol/L (98-107); Creatinine, Serum 0.57 mg/dL (0.55-1.02); EST Glomerular Filtration Rate 110 mL/min (>60); Est Glom Filt Rate - Afr Amer 133 mL/min (>60); Estimated Creatinine Clearance 43.91 ml/min; Glucose 169 mg/dL (74-106); Potassium 3.1 mmol/L (3.5-5.1); Sodium Level 136 mmol/L (136-145)
--- NOTE | 2020-05-10 17:20 | RAD_ITS ---
STUDY: X-RAY CHEST REASON FOR EXAM: Female, 70 years old. weakness TECHNIQUE: Single frontal view of the chest. COMPARISON: 05/01/2020 FINDINGS: The lungs are clear and expanded. There is no demonstrated pleural abnormality. Normal size heart. Normal mediastinum and miguel angel. Normal visualized pulmonary arteries. Normal visualized aortic arch and descending thoracic aorta. Normal visualized thoracic spine. Normal visualized ribs, clavicles, and shoulders. There is no demonstrated abnormality of the visualized soft tissue structures of the upper abdomen. RAD/Chest 1 View (Portable) IMPRESSION: Normal x-ray examination of the chest. Electronically Signed: Justo Brady MD at 18:02 EST , Service support ,
[2020-05-10 17:49] LABS: CPK Total, Creatine Kinase 789 U/L (26-192)
[2020-05-10 18:10] LABS: Mucous, Urine 0 SEEN /hpf (<or=2+); Red Blood Cells-Urine 0 SEEN /hpf (0-5)
[2020-05-10 18:24] LABS: Color, Urine Yellow (Yellow); Glucose, Dipstick Normal (Normal); Ketone-Dipstick 50 mg/dl (Negative); Leukocyte Esterase-Dipstick 500 /ul (Negative); Nitrite-Dipstick Positive (Negative); Occult Blood-Urine Negative /ul (Negative); Protein-Dipstick Negative (Negative); Urine Bilirubin Dipstick Negative (Negative); Urine Clarity Clear (Clear); Urine Urobilinogen Normal (Normal)
[2020-05-10 18:40] LABS: Amphetamine Urine VISTA NEGATIVE (<1000 ng/mL); Barbiturate Urine VISTA NEGATIVE (< 200 ng/mL); Benzodiazepine Urine VISTA NEGATIVE (< 200 ng/mL); Cocaine Urine VISTA NEGATIVE (< 300 ng/mL); Ecstacy Urine VISTA NEGATIVE (< 500 ng/mL); Methadone Urine VISTA NEGATIVE (< 300 ng/mL); PCP Urine VISTA NEGATIVE (< 25 ng/mL); THC Urine VISTA NEGATIVE (< 50 ng/mL); Vista UDS pH Range 6
[2020-05-10 18:53] LABS: Bacteria 1+ /hpf (None Seen); Renal Epithelial Cells 0-5 SEEN /hpf (0-5); Squamous Epithelial Cells - UA 0-5 SEEN /hpf (5-10); White Blood Cells 0-5 SEEN /hpf (0-5)
[2020-05-10 19:01] VITALS: BP 139/72; PULSE 89; RESP 16; O2SAT 95
--- NOTE | 2020-05-10 19:39 | ED.DCSUM_ITS ---
- ER Visit Summary Date of Service: 05/10/20 Chief Complaint: Chronic pain History of Present Illness: The patient is a 70 F presenting per EMS. She was found laying in covered in urine and stool. She states she has chronic pain and was unable to get up. She recently left a [facility]. Per EMS her living conditions were deplorable. She admits to drinking alcohol today. She denies fever. Denies chest pain or shortness of breath. Physical Examination: Vitals are stable. Patient is afebrile. Alert no acute distress. Pulse ox 99% on room air. HEENT exam dry mucous membranes Neck is supple. Lungs are clear and equal bilaterally. Heart is regular and tachycardic Abdomen is soft nontender nondistended. Extremities are unremarkable. Skin is warm and dry. No focal neurologic deficit. Positive EtOH Remainder of exam is unremarkable. Emergency Department Course and Treatment: EKG is sinus tachycardia rate of 115 with no acute ischemic changes. Chest x-ray shows no acute process. CBC, chemistries unremarkable other than potassium 3.1, glucose 169. Urinalysis shows positive nitrates, positive bacteria. Urine culture was sent. Lactic acid 3.1. She was given IV fluids and Rocephin. Her alcohol was 203, tox negative. Covid negative. CK 789. She was given potassium oral replacement. Discussed with hospitalist for admission. Disposition: Admission Impression: Debility, UTI, inability to care for self, alcohol intoxication, hypokalemia This note was generated with [employer] dictation software. It may contain incorrect words, spelling, and punctuation that were not noted in review of the chart prior to signing ED Disposition - Plan for ED Patient: Referrals: Brant Howard Chi, MD [Primary Care Provider] -
[2020-05-10] MEDS: 0.9% Normal Saline 1,000 ML 999 ML IV (19:52)
[2020-05-10] MEDS: Ceftriaxone 1 GM/50 ML BAG IV (19:55)
[2020-05-10 19:58] VITALS: BP 128/61; PULSE 120; RESP 18; TEMP 36.4; O2SAT 100
--- NOTE | 2020-05-10 20:28 | HP.PCM_ITS ---
Problem List (1) Debility Status: Acute (2) Alcoholism Status: Acute (3) UTI (urinary tract infection) Status: Acute (4) UTI (urinary tract infection) Status: Acute (5) Abnormal LFTs Status: Chronic (6) Alcohol abuse Status: Chronic (7) Alcohol dependence Status: Chronic Qualifiers: Substance use status: unspecified alcohol-induced disorder Qualified Code(s): F10.29 - Alcohol dependence with unspecified alcohol-induced disorder (8) Anxiety Status: Chronic (9) Autoimmune pancreatitis Status: Chronic (10) Bipolar disorder Status: Chronic Qualifiers: Active/Remission status: remission status unspecified Qualified Code(s): F31.9 - Bipolar disorder, unspecified (11) Chronic back pain Status: Chronic Qualifiers: Back pain location: back pain in unspecified location Back pain laterality: unspecified Qualified Code(s): M54.9 - Dorsalgia, unspecified; G89.29 - Other chronic pain Comment: osteoarthritis (12) Debility Status: Chronic (13) Delusional disorder Status: Chronic (14) Depression with H/o suicidal attempt Status: Chronic (15) Dysphagia Status: Chronic (16) Fibromyalgia Status: Chronic (17) GERD (gastroesophageal reflux disease) Status: Chronic Qualifiers: Esophagitis presence: esophagitis presence not specified Qualified Code(s): K21.9 - Gastro-esophageal reflux disease without esophagitis (18) HLD (hyperlipidemia) Status: Chronic Qualifiers: Hyperlipidemia type: unspecified Qualified Code(s): E78.5 - Hyperlipidemia, unspecified (19) Hepatic steatosis Status: Chronic (20) Hypertension Status: Chronic Qualifiers: Hypertension type: essential hypertension Qualified Code(s): I10 - Essential (primary) hypertension (21) Hypothyroidism Status: Chronic Qualifiers: Hypothyroidism type: unspecified Qualified Code(s): E03.9 - Hypothyroidism, unspecified (22) Psoriasis Status: Chronic (23) Psoriatic arthritis Status: Chronic (24) Rheumatoid arthritis Status: Chronic Comment: never confirmed.....RA is negative.....tells me that she has psoriatic arthritis (25) Severe protein-calorie malnutrition Status: Chronic (26) Tobacco use Status: Chronic (27) Gastroenteritis Status: Resolved (28) Hypokalemia Status: Acute History of Present Illness Date of Admission: 05/10/20 Chief Complaint: Inability to care for self. The patient is a 70 year old F with a significant history of fibromyalgia; and alcohol dependency who was brought to emergency department because of inability to take care of herself. Patient was found lying on the floor at home and was covered with stool and urine. Reportedly her home was in a deplorable state. The patient complained of chronic pain and inability to get up from the floor. Reported[facility] and eventually got discharged Past Medical History Past Medical History (Chronic Problems): Chronic Problems Debility (Chronic) Autoimmune pancreatitis (Chronic) Alcohol dependence (Chronic) Psoriatic arthritis (Chronic) Severe protein-calorie malnutrition (Chronic) HLD (hyperlipidemia) (Chronic) GERD (gastroesophageal reflux disease) (Chronic) Tobacco use (Chronic) Hepatic steatosis (Chronic) Abnormal LFTs (Chronic) Alcohol abuse (Chronic) Hypertension (Chronic) Hypothyroidism (Chronic) Anxiety (Chronic) Fibromyalgia (Chronic) Dysphagia (Chronic) Rheumatoid arthritis (Chronic) never confirmed.....RA is negative.....tells me that she has psoriatic arthritis Psoriasis (Chronic) Chronic back pain (Chronic) osteoarthritis Delusional disorder (Chronic) Bipolar disorder (Chronic) Depression with H/o suicidal attempt (Chronic) Allergies nickel [Nickel] Allergy (Verified 05/10/20 16:42) Rash/autoimmune reactions prochlorperazine edisylate [From Compazine] Adverse Reaction (Verified 05/10/20 16:42) disoriented prochlorperazine maleate [From Compazine] Adverse Reaction (Verified 05/10/20 16:42) DISORIENTED CADMIUM Allergy (Uncoded 05/10/20 16:42) Rash AUTOIMMUNE RESPONSE Home Medications: Ambulatory Orders Medication Instructions Recorded NK 05/10/20 Surgical History: tonsillectomy, - - Recent left hip fracture with repair. Psychiatric History: Anxiety, Bipolar, Depression, - - Delusional disorder. DIRECTOR OF EXHIBIT DEVELOPMENT History: No pertinent DIRECTOR OF EXHIBIT DEVELOPMENT history Smoking Status: Current some day smoker Alcohol: Heavy - *Family History Maternal History Items: - - Reports autoimmune disease. Paternal History Items: - - Reports that her father from aspiration pneumonia at age 92. And her grandfather from pneumonia at age 32. She also notes that her father had exposure to nickel and had some diseases related but cannot give this information. Denied any history of heart disease, diabetes or cancer. Review of Systems Constitutional: Denies: Chills, Fever, Weight Change HEENT: Denies: Head Aches, Sinus Congestion, Sinus Drainage Cardiovascular: Denies: Chest Pain, Palpitations Respiratory: Denies: Cough, Shortness of breath at rest, Sputum production Gastrointestinal: Denies: Abdominal Pain, Nausea, Vomiting Genitourinary: Denies: Dysuria Musculoskeletal: Denies: Joint Pain, Joint Tenderness Skin: Denies: Rash, Wounds Neurological: Denies: Numbness, Tingling, Focal weakness Psychiatric: Denies: Anxiety, Depression, Homicidal Ideations, Suicidal Ideations Hematologic/ Lymphatic: Denies: Easy Bruising, Easy Bleeding VTE Information - Inpt Only VTE Present on Admission: No VTE Mechan Device Prophylaxis: None VTE Pharm Prophylaxis ordered?: Yes Patient Problems: Active and Suspected Problems UTI (urinary tract infection) (Acute) Debility (Acute) Alcoholism (Acute) UTI (urinary tract infection) (Acute) Hypokalemia (Acute) - Physical Exam Vitals/I&O's: Vital Signs Temp Pulse Resp BP Pulse Ox 97.6 F L 120 H 18 128/61 H 100 05/10/20 19:58 05/10/20 19:58 05/10/20 19:58 05/10/20 19:58 05/10/20 19:58 Oxygen Delivery Method Room Air Weight: 58.5 kg Body Mass Index (BMI) 22.1 Finger Stick Blood Glucose 103 General: Alert, Oriented x3, Cooperative HEENT: Atraumatic, PERRLA, EOMI, Normocephalic Neck: Supple, No JVD, Negative Carotid Bruits Lungs: Clear to auscultation, Normal air movement Cardiovascular: Regular rate, Normal S1, Normal S2, No murmurs Abdomen: Bowel Sounds Present, Soft, Non Tender Extremities: No edema, Capillary Refill Less than 3 Seconds Skin: No rashes, No breakdown Musculoskeletal: No Tenderness to Palpation of Joints or Extremities Neurological: Cranial nerves II-XII grossly intact Psych/Mental Status: Normal Affect, Appropriate Microbiology Past 72 Hours 05/10/20 17:17 Mucosa - Nose SARS-CoV-2 Antigen (Rapid) - Final Laboratory Results 05/10/20 16:53: WBC 9.9, RBC 4.47, Hgb 13.2, Hct 39.1, MCV 87.5, MCH 29.5, MCHC 33.8, RDW Std Deviation 41.0, RDW Coeff of Jonathan 12.9, Plt Count 315, MPV 8.4, Immature Gran % (Auto) 0.500, Neut % (Auto) 77.1 H, Lymph % (Auto) 13.5 L, [place] % (Auto) 8.5, Eos % (Auto) 0.2, Baso % (Auto) 0.2, Absolute Neuts (auto) 7.6, Absolute Lymphs (auto) 1.33, Nucleated RBC % 0 05/10/20 16:53: Sodium 136, Potassium 3.1 L, Chloride 98, Carbon Dioxide 23.0, Anion Gap 15, BUN 14, Creatinine 0.57, Estim Creat Clear Calc 43.91, Est GFR (MDRD) Af Amer 133, Est GFR (MDRD) Non-Af 110, BUN/Creatinine Ratio 24.4 H, Glucose 169 H, Calcium 9.1 05/10/20 16:53: Ethyl Alcohol 203.0 05/10/20 16:53: Lactic Acid 3.0 H* 05/10/20 17:50: Urine Opiates Screen NEGATIVE, Urine Methadone Screen NEGATIVE, Ur Barbiturates Screen NEGATIVE, Ur Phencyclidine Scrn NEGATIVE, Ur Amphetamines Screen NEGATIVE, U Methamphetamin-MDMA NEGATIVE, U Benzodiazepines Scrn NEGATIVE, Urine Cocaine Screen NEGATIVE, U Cannabinoids Screen NEGATIVE, Ur Drug Screen Comment 05/10/20 17:50: Urine Color Yellow, Urine Clarity Clear, Urine pH 6.0, Ur Specific [place] 1.010, Urine Protein Negative, Urine Glucose (UA) Normal, Urine Ketones 50 H, Urine Occult Blood Negative, Urine Nitrite Positive H, Urine Bilirubin Negative, Urine Urobilinogen Normal, Ur Leukocyte Esterase 500 H, Urine RBC 0 SEEN, Urine WBC 0-5 SEEN, Ur Squamous Epith Cells 0-5 SEEN, Ur Renal Epithelial Cell 0-5 SEEN, Urine Bacteria 1+, Urine Mucus 0 SEEN 05/10/20 : Total Creatine Kinase 789 H Current Medications Sodium Chloride () 1,000 mls @ 999 mls/hr IV .Q1H1M ONE Stop: 05/10/20 20:37 Last Admin: 05/10/20 19:52 Dose: 999 mls/hr Documented by: Potassium Chloride 40 meq/ (Sodium Chloride) 1,020 mls @ 100 mls/hr IV .[id number] JAYLON Assessment/Plan All Active Problems UTI (urinary tract infection) (Acute) Debility (Acute) Alcoholism (Acute) UTI (urinary tract infection) (Acute) Gastroenteritis (Resolved) Hypokalemia (Acute) Debility/failure to thrive Likely secondary to alcoholism. PT and OT to work with patient. Likely may need placement. Alcohol treatment as below. Alcoholism [facility] protocol with Ativan; folic acid; multivitamins and thiamine ordered. Counselled Rhabdomyolysis Mild of CPK of 789 Normal saline with potassium supplementation as potassium is also low. Trend CPK. Trend BMP. Hypokalemia Received potassium supplementation at emergency department. Normal saline potassium ordered. Trend BMP and check magnesium. Lactic acidosis Likely secondary to dehydration. Trend lactic acid. IV fluids as above. Tobacco abuse Patient smokes some days. Counseled UTI. Although patient denies urinary symptoms because of a high alcohol level that could wilman her judgment we will treat as UTI. Received ceftriaxone at the emergency department. Ceftriaxone continued. Follow urine culture. DVT prophylaxis Subcutaneous Lovenox ordered. Inpatient E&M: 43437 Init Hosp L3
[2020-05-10 20:30] VITALS: BP 126/55; PULSE 98; RESP 16; TEMP 36.7; O2SAT 98
[2020-05-10 20:44] VITALS: BMI 19.3
[2020-05-10 20:55] VITALS: BMI 19.3
[2020-05-10 21:00] LABS: Reflex Lactate? Y
[2020-05-10] MEDS: BENZOCAINE/MENTHOL 1 LOZENGE MUCOUS MEM (22:15)
[2020-05-10] MEDS: Acetaminophen 325 MG Tablet 650 MG PO (22:18)
[2020-05-10] MEDS: LORazepam 1 MG Tablet 2 MG PO (22:25)
[2020-05-10] MEDS: Potassium Chloride 40 MEQ in 0.9% Normal Saline 1,000 ML 100 MEQ IV (22:26)
[2020-05-10 23:14] LABS: Magnesium 2.4 mg/dL (1.6-2.6)
[2020-05-11 02:30] VITALS: BP 112/52; PULSE 73; RESP 16; TEMP 37.3; O2SAT 96
[2020-05-11] MEDS: LORazepam 1 MG Tablet 2 MG PO ×3 (03:50→20:45)
[2020-05-11 07:48] VITALS: O2SAT 94
[2020-05-11 07:58] LABS: Absolute Lymphocyte Count 0.93 X10^3/uL (0.83-4.51); Basophil# 0.02 X10^3/uL; Basophil% 0.2 % (0-1); Eosinophil# 0.01 X10^3/uL; Eosinophils% 0.1 % (0-5); Hematocrit 31.3 % (37-47); Hemoglobin 10.2 g/dL (12.0-15.0); Lymphocyte # 0.93 X10^3/ul (4.0); Lymphocyte % 8.6 % (19-41); Mean Corp Hgb Conc 32.6 g/dL (32-36); Mean Corpuscular Hgb 28.8 pg (27.0-32.0); Mean Corpuscular Volume 88.4 fL (81-99); Mean Platelet Vol. 8.8 fl (6.2-12.0); Monocyte# 0.82 X10^3/uL; Monocyte% 7.6 % (0-10); NRBC Flagged by Analyzer 0 % (0-5); Neutrophil # 8.96 X10^3/uL (2.7-7.7); Neutrophil % 83.1 % (47-70); Platelet Count 218 K/mm3 (150-450); RBC Distribution Width CV 12.8 % (11.6-14.6); RBC Distribution Width SD 41.4 fl (35.1-43.9); Red Blood Count 3.54 M/mm3 (4.2-5.4); White Blood Count 10.8 K/mm3 (4.4-11.0)
[2020-05-11 08:14] LABS: Anion Gap 4 (5-15); BUN 11 mg/dL (7-18); BUN/Creat Ratio 21.5 RATIO (10-20); CPK Total, Creatine Kinase 312 U/L (26-192); Calcium,Total 8.1 mg/dL (8.5-10.1); Chloride 107 mmol/L (98-107); Creatinine, Serum 0.51 mg/dL (0.55-1.02); EST Glomerular Filtration Rate 125 mL/min (>60); Est Glom Filt Rate - Afr Amer 152 mL/min (>60); Estimated Creatinine Clearance 43.59 ml/min; Glucose 146 mg/dL (74-106); Potassium 4.5 mmol/L (3.5-5.1); Sodium Level 139 mmol/L (136-145)
[2020-05-11] MEDS: Potassium Chloride 40 MEQ in 0.9% Normal Saline 1,000 ML 100 MEQ IV ×2 (08:24→19:25)
--- NOTE | 2020-05-11 10:06 | CASEMGMT ---
Social Work Note SW reviewed chart. Pt with history of ETOH use. Pt with Mental Health Hx including Anxiety, Bipolar, Delusion Disorder, past suicide attempt. Pt was recently discharged to [facility] 05/02. Pt was found at home covered in stool/urine and home is in deplorable state. SW in to meet with pt to complete discharge planning. SW introduced self and role at [facility]. Pt sleeping when this worker entered the room. Pt woke up but quickly fell back asleep. SW attempted to ask pt questions, pt didn't wake up. SW will try again later today as time allows to complete assessment. Jeanette Wright CONVALESCENT SITTER, HOME ASSESSMENT NURSE
[2020-05-11 10:17] VITALS: BP 133/72; PULSE 102; RESP 14; TEMP 36.9; O2SAT 96
[2020-05-11 10:39] VITALS: BP 133/72; PULSE 102; RESP 14; TEMP 36.9; O2SAT 96
[2020-05-11] MEDS: Enoxaparin 40 MG/0.4 ML Syringe SC (10:44)
[2020-05-11] MEDS: Thiamine Hydrochloride 100 MG Tablet PO ×2 (10:45→18:01)
[2020-05-11] MEDS: Multivitamins,Ther W-Minerals Tablet 1 TABLET PO (10:45)
[2020-05-11] MEDS: Folic Acid 1 MG Tablet PO (10:45)
[2020-05-11] MEDS: Acetaminophen 325 MG Tablet 650 MG PO ×2 (10:53→18:00)
--- NOTE | 2020-05-11 12:09 | CASEMGMT ---
Social Work Assessment Referral Date: 05/11/2020 Date of Assessment: 05/11/2020 Reason for consult: ETOH, Debility Informant: SAM Personal Status: SW met again with pt to complete assessment. Pt now sitting in chair, appears still sleepy, but agreeable to this worker speaking with her. Pt is alert and orientated. Living Arrangements: Pt states that she lives home alone in a two story home with 18 steps to enter. DME: Roel Moya PCP: Dr. Howard Pharmacy: [facility] Pharmacy ALDs: SW asked pt if she was taking care of self at home and pt states not so well. Pt then states though that she was independent with cooking, cleaning, bathing, in regards to walking pt states I guess regarding being able to get around ok. Pt states she is not able to drive as her car broke down. Substance Abuse Hx: Pt states current cigarette use. Pt states she smokes 3-4 cigarettes a day. Pt states she drank alcohol yesterday due to chronic pain. Pt states she drank shots of vodka - the weak kind, 21%. SW asked pt if she would be agreeable to speaking with [employer]. Pt asked what [employer] is. SW explained [employer] program. Pt agreeable to speaking with [employer]. Mental Health Hx: Pt denied. But as previous noted, pt has history of Anxiety, Bipolar, Delusional Disorder, Depression and pt was recently admitted to [facility]. SW reminded pt that she was recently at [facility] due to suicidal thoughts. Pt confirms she remembers going to [facility] but unable to tell this worker how long she was at [facility]. Pt states they didn't help. SW asked pt if [facility] arranged follow up appointments for pt, pt denied. Pt denied any current suicidal thoughts/plans/ideations. HHC: Pt denied SNF: Pt denied. SW reviewed chart and pt has been to [facility] before. SW reminded pt again that she has been to [facility] before. Pt confirms she has been to [facility]. SW spoke with pt regarding discharge plans. SW asked pt if she would be agreeable to SNF if recommended and pt states is agreeable. SW asked pt if she had facility in mind and pt initially denied. SW provided pt with list of SNF and informed pt that this worker would check back in with pt tomorrow. Pt then stated am I going to the retirement today? SAM informed pt that pt is probably not medically ready for discharge at this time and asked pt if she wanted this worker to send referral to SNF and pt now agreeable. Pt agreeable to referral for [facility]. SAM placed a call to Kala at [facility] and updated her on referral. [facility] to speak with pt tomorrow. SW to fax referral to [facility]. Plan: [facility] pending acceptance Jeanette Wright KOSHER SEALER, AUTOMOBILE RENTAL CLERK
--- NOTE | 2020-05-11 13:44 | CASEMGMT ---
Addendum entered by Jeanette Wright 05/11/20 16:42: SAM received call from Tiffany at [facility] that due to financials they are unable to accept pt. Tiffany states pt only has 9 days left under her Medicare. Pt has a $15,000 bill from [facility] that pt hasn't paid and pt has applied for Medicaid but has too much money for Medicaid. Tiffany states due to these reasons they are not able to accept pt. SW in to speak with pt. Pt sleeping. Pt woke up when this worker entered the room. SW asked pt about the unpaid bill to [facility]. Pt states she doesn't owe [facility] any money. SW tried to explain that [facility] won't accept pt due to unpaid bill but pt fell back asleep. SW to speak with pt tomorrow. Original Note: Social Work Note SW updated that pt is agreeable to SNF but not the one she was at before. SW in to speak with pt again. Pt confirms she is agreeable to SNF but now states not the one I was at. SW asked pt to tell this worker which SNF she was at, pt states [facility]. SW asked pt if she meant [facility] and pt confirms. SW went over list of SNF with pt. Pt agreeable to [facility]. SW placed a call to Tiffany at [facility] and left message regarding referral. SW faxed referral. Plan: SNF pending acceptance Jeanette Wright CLINICAL EDITOR, FAST FOOD ASSISTANT RESTAURANT MANAGER
--- NOTE | 2020-05-11 14:57 | PN_ITS ---
Patient Problems: Active and Suspected Problems UTI (urinary tract infection) (Acute) Debility (Acute) Alcoholism (Acute) UTI (urinary tract infection) (Acute) Hypokalemia (Acute) Subjective: Pt states that she feels ok. Was recent d/c from psych facility to home and home is in deplorable condition. Pt was found in her own stool and urine and appears that she is unable to take care of herself. Is agreeable to SNF admission per discussion today. Vitals/I&O's: Vital Signs Temp Pulse Resp BP Pulse Ox 98.5 F 102 H 14 133/72 H 96 05/11/20 10:39 05/11/20 10:39 05/11/20 10:39 05/11/20 10:39 05/11/20 10:39 Oxygen Delivery Method Room Air Weight: 54.3 kg Body Mass Index (BMI) 19.3 Finger Stick Blood Glucose 103 Intake and Output for Last 24 Hours 05/09/20 05/10/20 05/11/20 23:59 23:59 23:59 Intake Total 1050 / 1250 1856.67 / 1856.67 Output Total 150 / 150 Balance 1050 / 1250 1706.67 / 1706.67 General: Alert, Oriented x3, Cooperative, No apparent distress, Well developed, - - WF who appears older than stated age sitting in a chair, discheveled appearance HEENT: Atraumatic, Normocephalic Oral: Moist Mucosa, No Gingival or Mucosal Lesions/ Ulcerations, - - poor den tition Neck: Supple, Trachea Midline, Thyroid Normal Size and Texture Lungs: Clear to auscultation, No rhonchi, No wheeze, No rales, Diminished Cardiovascular: Regular rate, Regular Rhythm, Normal S1, Normal S2, No murmurs, No Ectopic Activity, No rub noted, No Gallop Abdomen: Bowel Sounds Present, Soft, Non Tender, Non-Distended Extremities: No clubbing, No cyanosis, No edema, Capillary Refill Less than 3 Seconds, Peripheral Pulses Normal, - - dirt under all fingernail and unkept Skin: No rashes, No breakdown Musculoskeletal: No Tenderness to Palpation of Joints or Extremities, Cachexia, Muscle Wasting Lymphatic: No Cervical, Supraclavicular, or Inguinal Adenopathy Neurological: Cranial nerves II-XII grossly intact, Neuro grossly intact, - - generalized weakness Psych/Mental Status: Appropriate, Flat Affect Microbiology Past 72 Hours 05/10/20 17:50 Urine, Catheterized Urine Culture - Preliminary Presumptive E. coli 05/10/20 17:17 Mucosa - Nose SARS-CoV-2 Antigen (Rapid) - Final Laboratory Results 05/10/20 16:53: WBC 9.9, RBC 4.47, Hgb 13.2, Hct 39.1, MCV 87.5, MCH 29.5, MCHC 33.8, RDW Std Deviation 41.0, RDW Coeff of Jonathan 12.9, Plt Count 315, MPV 8.4, Immature Gran % (Auto) 0.500, Neut % (Auto) 77.1 H, Lymph % (Auto) 13.5 L, [place] % (Auto) 8.5, Eos % (Auto) 0.2, Baso % (Auto) 0.2, Absolute Neuts (auto) 7.6, Absolute Lymphs (auto) 1.33, Nucleated RBC % 0 05/10/20 16:53: Sodium 136, Potassium 3.1 L, Chloride 98, Carbon Dioxide 23.0, Anion Gap 15, BUN 14, Creatinine 0.57, Estim Creat Clear Calc 43.91, Est GFR (MDRD) Af Amer 133, Est GFR (MDRD) Non-Af 110, BUN/Creatinine Ratio 24.4 H, Glucose 169 H, Calcium 9.1 05/10/20 16:53: Ethyl Alcohol 203.0 05/10/20 16:53: Lactic Acid 3.0 H* 05/10/20 16:53: Total Creatine Kinase 789 H 05/10/20 16:53: Magnesium 2.4 05/10/20 17:50: Urine Opiates Screen NEGATIVE, Urine Methadone Screen NEGATIVE, Ur Barbiturates Screen NEGATIVE, Ur Phencyclidine Scrn NEGATIVE, Ur Amphetamines Screen NEGATIVE, U Methamphetamin-MDMA NEGATIVE, U Benzodiazepines Scrn NEGATIVE, Urine Cocaine Screen NEGATIVE, U Cannabinoids Screen NEGATIVE, Ur Drug Screen Comment 05/10/20 17:50: Urine Color Yellow, Urine Clarity Clear, Urine pH 6.0, Ur Specific [place] 1.010, Urine Protein Negative, Urine Glucose (UA) Normal, Urine Ketones 50 H, Urine Occult Blood Negative, Urine Nitrite Positive H, Urine Bilirubin Negative, Urine Urobilinogen Normal, Ur Leukocyte Esterase 500 H, Urine RBC 0 SEEN, Urine WBC 0-5 SEEN, Ur Squamous Epith Cells 0-5 SEEN, Ur Renal Epithelial Cell 0-5 SEEN, Urine Bacteria 1+, Urine Mucus 0 SEEN 05/10/20 21:27: Lactic Acid 2.0 05/11/20 07:20: WBC 10.8, RBC 3.54 L, Hgb 10.2 L, Hct 31.3 L, MCV 88.4, MCH 28.8, MCHC 32.6, RDW Std Deviation 41.4, RDW Coeff of Jonathan 12.8, Plt Count 218, MPV 8.8, Immature Gran % (Auto) 0.400, Neut % (Auto) 83.1 H, Lymph % (Auto) 8.6 L, [place] % (Auto) 7.6, Eos % (Auto) 0.1, Baso % (Auto) 0.2, Absolute Neuts (auto) 9.0 H, Absolute Lymphs (auto) 0.93, Nucleated RBC % 0 05/11/20 07:20: Sodium 139, Potassium 4.5, Chloride 107, Carbon Dioxide 28.0, Anion Gap 4 L, BUN 11, Creatinine 0.51 L, Estim Creat Clear Calc 43.59, Est GFR (MDRD) Af Amer 152, Est GFR (MDRD) Non-Af 125, BUN/Creatinine Ratio 21.5 H, Glucose 146 H, Calcium 8.1 L, Total Creatine Kinase 312 H Current Medications Acetaminophen (Acetaminophen 325 Mg Tablet) 650 mg PO Q6H PRN PRN PRN Reason: Pain Score 1-10/Temp > 100.7 F Last Admin: 05/11/20 10:53 Dose: 650 mg Documented by: Enoxaparin Sodium (Enoxaparin 40 Mg/0.4 Ml Syringe) 40 mg SC DAILY [facility] Last Admin: 05/11/20 10:44 Dose: 40 mg Documented by: Folic Acid (Folic Acid 1 Mg Tablet) 1 mg PO DAILY@0800 [facility] Stop: 05/13/20 08:01 Last Admin: 05/11/20 10:45 Dose: 1 mg Documented by: Potassium Chloride 40 meq/ (Sodium Chloride) 1,020 mls @ 100 mls/hr IV .[id number] [facility] Last Admin: 05/11/20 08:24 Dose: 100 mls/hr Documented by: Ceftriaxone Sodium (Rocephin) 1 gm in 50 mls @ 100 mls/hr IV Q24H [facility] Lorazepam (Lorazepam 1 Mg Tablet) 2 mg PO Q2H PRN PRN; Protocol PRN Reason: CIWA score > 8 but <15 Last Admin: 05/11/20 10:44 Dose: 2 mg Documented by: Lorazepam (Lorazepam 1 Mg Tablet) 2 mg PO UD PRN; Protocol PRN Reason: CIWA score >/=15. Lorazepam (Lorazepam 2 Mg/Ml Syringe) 2 mg IV Q2H PRN PRN; Protocol PRN Reason: CIWA score > 8 but <15 Lorazepam (Lorazepam 2 Mg/Ml Syringe) 2 mg IV UD PRN; Protocol PRN Reason: CIWA score >/=15. Melatonin (Melatonin 3 Mg Tablet) 3 mg PO QHS PRN PRN PRN Reason: INSOMNIA Multivitamins/Minerals (Multivitamins,Ther W-Minerals Tablet) [facility] Last Admin: 05/11/20 10:45 Dose: 1 tablet Documented by: Nutritional Formula (Lactose Free) (Ensure Clear 120 Ml Liquid) 120 ml PO 4X/DAY [facility] Last Admin: 05/11/20 14:31 Dose: Not Given Documented by: Ondansetron HCl (Ondansetron 4 Mg/2 Ml Vial) 4 mg IV Q8H PRN PRN PRN Reason: NAUSEA/VOMITING Sodium Chloride (0.9% Saline Lock 10 Ml Syringe) 10 - 40 ml IV UD PRN PRN Reason: SALINE FLUSH Thiamine HCl (Thiamine Hydrochloride 100 Mg Tablet) [facility] Stop: 05/13/20 17:01 Last Admin: 05/11/20 10:45 Dose: 100 mg Documented by: Throat Lozenges (Benzocaine/Menthol 1 Lozenge) 1 lozenge MUCOUS MEM Q2H PRN PRN PRN Reason: sore throat/cough Last Admin: 05/10/20 22:15 Dose: 1 lozenge Documented by: Medical Necessity - Tobacco Use Smoking Status: Current some day smoker Assessment/Plan All Active Problems UTI (urinary tract infection) (Acute) Debility (Acute) Alcoholism (Acute) UTI (urinary tract infection) (Acute) Gastroenteritis (Resolved) Hypokalemia (Acute) E. Coli UTI -cont CTX for now -await sensitivities -will need 3-5 days of abx Debility/Failure to Thrive -needs APS referral -PT/OT -Placement at d/c EtOH Abuse -no s/o withdrawal -is agreeable to talk to 180 and they will see tomorrow -thiamine/folate -CIWA and prn ativan -add phenobarb is shows any s/o withdrawal Rhabdomyolysis -CK down to 312 -sCr is WNL -continue hydration today Hypokalemia -resolved Lactic Acidosis -resolved Bipolar d/o -on no meds GERD -take no meds -monitor HTN/HPL -takes no meds -BP stable Hypothyroidism -on no meds -check TSH--> was 7.88 in 01/2020 Severe Malnutrition Johnson diet supplements DVT Prophylaxis -Lovenox Code Status Full Dispo -SNF at D/C -APS referral Inpatient E&M: 10859 Subs Hosp L2
[2020-05-11 16:00] VITALS: BP 133/80; PULSE 97; RESP 14; RESP 16; TEMP 36.7; O2SAT 96
[2020-05-11 20:31] VITALS: BP 123/62; PULSE 110; RESP 16; TEMP 36.9; O2SAT 97
[2020-05-11] MEDS: Ceftriaxone 1 GM/50 ML BAG IV (22:16)
[2020-05-12] MEDS: Acetaminophen 325 MG Tablet 650 MG PO ×3 (00:53→22:11)
[2020-05-12 02:09] VITALS: BP 134/84; PULSE 96; RESP 16; TEMP 36.8; O2SAT 99
[2020-05-12] MEDS: LORazepam 1 MG Tablet 2 MG PO ×3 (02:10→22:11)
[2020-05-12 06:03] LABS: Absolute Lymphocyte Count 1.27 X10^3/uL (0.83-4.51); Absolute Neutrophil Count 4.7 X10^3/uL (2.0-7.7); Basophil# 0.02 X10^3/uL; Basophil% 0.3 % (0-1); Eosinophil# 0.09 X10^3/uL; Eosinophils% 1.4 % (0-5); Hematocrit 32.1 % (37-47); Hemoglobin 10.4 g/dL (12.0-15.0); Lymphocyte # 1.27 X10^3/ul (4.0); Lymphocyte % 19.4 % (19-41); Mean Corp Hgb Conc 32.4 g/dL (32-36); Mean Corpuscular Volume 89.4 fL (81-99); Mean Platelet Vol. 8.7 fl (6.2-12.0); Monocyte# 0.46 X10^3/uL; NRBC Flagged by Analyzer 0 % (0-5); Neutrophil # 4.65 X10^3/uL (2.7-7.7); Neutrophil % 71.3 % (47-70); Platelet Count 184 K/mm3 (150-450); RBC Distribution Width CV 12.7 % (11.6-14.6); RBC Distribution Width SD 41.6 fl (35.1-43.9); Red Blood Count 3.59 M/mm3 (4.2-5.4); White Blood Count 6.5 K/mm3 (4.4-11.0)
[2020-05-12] MEDS: Potassium Chloride 40 MEQ in 0.9% Normal Saline 1,000 ML 100 MEQ IV ×2 (06:35→16:15)
[2020-05-12 06:37] LABS: Anion Gap 4 (5-15); BUN 7 mg/dL (7-18); BUN/Creat Ratio 20.8 RATIO (10-20); Calcium,Total 8.5 mg/dL (8.5-10.1); Chloride 110 mmol/L (98-107); Creatinine, Serum 0.34 mg/dL (0.55-1.02); EST Glomerular Filtration Rate 203 mL/min (>60); Est Glom Filt Rate - Afr Amer 246 mL/min (>60); Estimated Creatinine Clearance 43.59 ml/min; Glucose 134 mg/dL (74-106); Potassium 4.2 mmol/L (3.5-5.1); Sodium Level 141 mmol/L (136-145)
[2020-05-12 07:05] VITALS: O2SAT 95
[2020-05-12 08:00] VITALS: BP 142/79; PULSE 94; RESP 16; TEMP 37.1; O2SAT 97
[2020-05-12] MEDS: Multivitamins,Ther W-Minerals Tablet 1 TABLET PO (08:01)
[2020-05-12] MEDS: Thiamine Hydrochloride 100 MG Tablet PO ×2 (08:02→16:10)
[2020-05-12] MEDS: Folic Acid 1 MG Tablet PO (08:02)
--- NOTE | 2020-05-12 10:36 | CASEMGMT ---
Addendum entered by Jeanette Wright 05/12/20 11:22: SW also placed a call to Corrina at [facility] and left message regarding admissions. SAM placed a call to [facility] and spoke with Rosy. Rosy states she is willing to review referral. [facility] Original Note: Social Work Note SW in to speak with pt. Pt sleeping. SW attempted to wake pt up, pt woke up but drifted in and out of sleep. SW updated pt that [facility] is not able to accept pt due to her unpaid balance at [facility]. SW asked pt if she or someone could pay the bill and pt denied. SW informed pt that this worker is not sure if any SNF will accept pt due to unpaid balance but will make referrals. Pt gave this worker permission to call all SNF to determine if anyone would accept pt. SW informed pt that pt will likely have to go to SNF outside of [place]. SW spoke with Kala at [facility], updated Kala on likely SNF plan. Kala state she briefly spoke with pt and pt told Kala she doesn't have a drinking problem. SAM placed a call to [facility] and spoke with CYNTHIA Walsh not accepting any new referrals at this time. SAM placed a call to [facility] and spoke with Nicol Camarena states agreeable to review referral. SW faxed referral. Places not able to accept pt so far: [address] [facility] Pt doesn't wish to return to [facility]. SW to continue to follow. Jeanette Wright EXPEDITER CLERK, VITICULTURE TEACHER
[2020-05-12] MEDS: Enoxaparin 40 MG/0.4 ML Syringe SC (11:37)
[2020-05-12] MEDS: BENZOCAINE/MENTHOL 1 LOZENGE MUCOUS MEM (11:42)
--- NOTE | 2020-05-12 13:23 | CASEMGMT ---
Addendum entered by Jeanette Wright 05/12/20 15:47: SW received message from Corrina at [facility] stating their DON prefers for pt to stay at [facility] through the weekend and to get updated notes on Friday. SAM placed a call to Annika at [facility] and updated Annika that this worker is trying to fax referral but it is not going through. Annika provided another fax number [phone]. SAM faxed referral to [facility] again. Addendum entered by Jeanette Wright 05/12/20 14:15: SAM also faxed referrals to [facility] and [facility]. Original Note: Social Work Note SW received message from Rosy at [facility] stating will to consider pt but had questions. SW placed a call to Rosy, answered questions. Rosy then called this worker again and states they are not able to accept pt. Rosy states [facility]'s sister facility in [place] may be able to accept pt, phone number [phone]. SAM received message from Corrina at [facility] stating referral could be faxed but she needs this worker to document that pt and pt's family is aware they have COVID cases before sending referral. SW in to speak with pt. SW updated pt that this worker is waiting to hear from one more facility in [place] and that one SNF in [place] is not able to accept pt and the other facility wanted this worker to make sure pt knew they had COVID cases before sending referral. SAM asked pt if she would be agreeable to going to SNF that has COVID cases if that are able to accept pt and pt stated not sure, but gave this worker permission to send referral anyway. SAM explained that pt came to [facility] and [facility] has COVID cases so pt may have to admit to SNF that has COVID cases as this worker is running out of options for pt. Pt states understanding, again agreeable to this worker sending referral to [facility] with the COVID cases. SW informed pt that if no SNF in [place] is able to accept then this worker will send referrals to [facility]. SW informed pt then that the next closest SNFs would likely be [facility]. Pt states understanding. SAM faxed referral to [facility] and wrote on fax cover sheet that pt is aware facility has COVID cases but pt only as brother listed as contact and this worker has not contacted pt's brother at all while pt has been at [facility]. Plan: SNF pending acceptance. Pt is medically ready once SNF has accepted pt. Jeanette Wright VICE PRESIDENT [employer], PASTE UP WORKER
[2020-05-12 13:55] VITALS: BP 141/82; PULSE 106; RESP 16; TEMP 37.1; O2SAT 97
[2020-05-12] MEDS: traMADol 50 MG Tablet PO (13:59)
--- NOTE | 2020-05-12 16:28 | CASEMGMT ---
Social Work Note SW received message from Juanita at [facility] stating at this time, they are not taking admissions. SW has called/faxed multiple referrals to SNFs for pt. [facility]: Not able to accept [facility]: Referral sent, admissions haven't got back to this worker yet. SW did call admissions again and left message for Nicol in admissions regarding referral [facility]: Requesting pt remain at [facility] through the weekend and updated clinicals be faxed Friday: Referral sent, waiting for call back [facility]: Not able to accept [facility]: Not taking admissions at this time [facility]: Not able to accept [facility]: Pt doesn't want to return [facility]: Not taking admissions at this time SW to continue to follow. Plan: SNF pending acceptance Jeanette Wright HOME ECONOMICS EXPERT, SUPERVISOR [employer]
--- NOTE | 2020-05-12 17:02 | PCM.PN.HOSP ---
Patient Problems: Active and Suspected Problems UTI (urinary tract infection) (Acute) Debility (Acute) Alcoholism (Acute) UTI (urinary tract infection) (Acute) Hypokalemia (Acute) Subjective: Pt more interactive today. C/O joint pain. No other issues. Met with 180. Pt is agreeable to SNF placement. Vitals/I&O's: Vital Signs Temp Pulse Resp BP Pulse Ox 98.8 F 106 H 16 141/82 H 97 05/12/20 13:55 05/12/20 13:55 05/12/20 13:55 05/12/20 13:55 05/12/20 13:55 Oxygen Delivery Method Room Air Weight: 54.3 kg Body Mass Index (BMI) 19.3 Finger Stick Blood Glucose 103 Intake and Output for Last 24 Hours 05/10/20 05/11/20 05/12/20 23:59 23:59 23:59 Intake Total 1050 / 1250 3226.67 / 3226.67 2526.67 / 2526.67 Output Total 600 / 600 700 / 700 Balance 1050 / 1250 2626.67 / 2626.67 1826.67 / 1826.67 General: Alert, Oriented x3, Cooperative, No apparent distress, Well developed, Well nourished, - - sitting up in a chair Lungs: No rhonchi, No wheeze, No rales, Diminished Cardiovascular: Regular rate, Regular Rhythm, Normal S1, Normal S2, No murmurs, No Ectopic Activity, No rub noted, No Gallop Abdomen: Bowel Sounds Present, Soft, Non Tender, Non-Distended Extremities: No clubbing, No cyanosis, No edema, Capillary Refill Less than 3 Seconds, Peripheral Pulses Normal Neurological: Cranial nerves II-XII grossly intact, Neuro grossly intact Psych/Mental Status: Appropriate, Flat Affect Microbiology Past 72 Hours 05/10/20 17:50 Urine, Catheterized Urine Culture - Final Presumptive E. coli 05/11/20 23:30 Stool C. difficile DNA Amplification - Final 05/10/20 17:17 Mucosa - Nose SARS-CoV-2 Antigen (Rapid) - Final Laboratory Results 05/12/20 05:23: WBC 6.5, RBC 3.59 L, Hgb 10.4 L, Hct 32.1 L, MCV 89.4, MCH 29.0, MCHC 32.4, RDW Std Deviation 41.6, RDW Coeff of Jonathan 12.7, Plt Count 184, MPV 8.7, Immature Gran % (Auto) 0.600, Neut % (Auto) 71.3 H, Lymph % (Auto) 19.4, [place] % (Auto) 7.0, Eos % (Auto) 1.4, Baso % (Auto) 0.3, Absolute Neuts (auto) 4.7, Absolute Lymphs (auto) 1.27, Nucleated RBC % 0 05/12/20 05:23: Sodium 141, Potassium 4.2, Chloride 110 H, Carbon Dioxide 27.0, Anion Gap 4 L, BUN 7, Creatinine 0.34 L, Estim Creat Clear Calc 43.59, Est GFR (MDRD) Af Amer 246, Est GFR (MDRD) Non-Af 203, BUN/Creatinine Ratio 20.8 H, Glucose 134 H, Calcium 8.5 Current Medications Acetaminophen (Acetaminophen 325 Mg Tablet) 650 mg PO Q6H PRN PRN PRN Reason: Pain Score 1-10/Temp > 100.7 F Last Admin: 05/12/20 08:02 Dose: 650 mg Documented by: Ciprofloxacin HCl (Ciprofloxacin 250 Mg Tablet) 250 mg PO BID [facility] Stop: 05/15/20 22:01 Enoxaparin Sodium (Enoxaparin 40 Mg/0.4 Ml Syringe) 40 mg SC DAILY [facility] Last Admin: 05/12/20 11:37 Dose: 40 mg Documented by: Folic Acid (Folic Acid 1 Mg Tablet) 1 mg PO DAILY@0800 [facility] Stop: 05/13/20 08:01 Last Admin: 05/12/20 08:02 Dose: 1 mg Documented by: Potassium Chloride 40 meq/ (Sodium Chloride) 1,020 mls @ 100 mls/hr IV .[id number] [facility] Last Admin: 05/12/20 16:15 Dose: 100 mls/hr Documented by: Lorazepam (Lorazepam 1 Mg Tablet) 2 mg PO Q2H PRN PRN; Protocol PRN Reason: CIWA score > 8 but <15 Last Admin: 05/12/20 11:42 Dose: 2 mg Documented by: Lorazepam (Lorazepam 1 Mg Tablet) 2 mg PO UD PRN; Protocol PRN Reason: CIWA score >/=15. Lorazepam (Lorazepam 2 Mg/Ml Syringe) 2 mg IV Q2H PRN PRN; Protocol PRN Reason: CIWA score > 8 but <15 Lorazepam (Lorazepam 2 Mg/Ml Syringe) 2 mg IV UD PRN; Protocol PRN Reason: CIWA score >/=15. Melatonin (Melatonin 3 Mg Tablet) 3 mg PO QHS PRN PRN PRN Reason: INSOMNIA Multivitamins/Minerals (Multivitamins,Ther W-Minerals Tablet) [facility] Last Admin: 05/12/20 08:01 Dose: 1 tablet Documented by: Ondansetron HCl (Ondansetron 4 Mg/2 Ml Vial) 4 mg IV Q8H PRN PRN PRN Reason: NAUSEA/VOMITING Sodium Chloride (0.9% Saline Lock 10 Ml Syringe) 10 - 40 ml IV UD PRN PRN Reason: SALINE FLUSH Thiamine HCl (Thiamine Hydrochloride 100 Mg Tablet) [facility] Stop: 05/13/20 17:01 Last Admin: 05/12/20 16:10 Dose: 100 mg Documented by: Throat Lozenges (Benzocaine/Menthol 1 Lozenge) 1 lozenge MUCOUS MEM Q2H PRN PRN PRN Reason: sore throat/cough Last Admin: 05/12/20 11:42 Dose: 1 lozenge Documented by: Tramadol HCl (Tramadol 50 Mg Tablet) 50 mg PO Q6H PRN PRN PRN Reason: Pain Score 1-10 Last Admin: 05/12/20 13:59 Dose: 50 mg Documented by: STROKE Vital Signs/Narrative: Vital Signs Temp Pulse Resp BP Pulse Ox 05/12/20 13:55 98.8 F 106 H 16 141/82 H 97 Medical Necessity - Tobacco Use Smoking Status: Current some day smoker Assessment/Plan All Active Problems UTI (urinary tract infection) (Acute) Debility (Acute) Alcoholism (Acute) UTI (urinary tract infection) (Acute) Gastroenteritis (Resolved) Hypokalemia (Acute) E. Coli UTI -Cipro for 3 days Debility/Failure to Thrive -needs APS referral -PT/OT -Placement at d/c EtOH Abuse -continues with no s/o withdrawal -is agreeable to talk to 180 and they will see tomorrow -thiamine/folate -CIWA and prn ativan Rhabdomyolysis -resolved Hypokalemia -resolved Lactic Acidosis -resolved Bipolar d/o -on no meds GERD -take no meds -monitor HTN/HPL -takes no meds at baseline -BP is consistently elevated -add norvasc 5 mg Hypothyroidism -on no meds -check TSH--> was 7.88 in 01/2020 Severe Malnutrition [place] diet supplements DVT Prophylaxis -Lovenox Code Status Full Dispo -SNF at D/C--> awaiting accepting facility -APS is involved and aware of admission Inpatient E&M: 61139 Subs Hosp L2
[2020-05-12] MEDS: amLODIPine 5 MG Tablet PO (18:09)
[2020-05-12 20:00] VITALS: BP 130/77; PULSE 104; RESP 16; TEMP 37.1; O2SAT 98
[2020-05-12 22:00] VITALS: PULSE 104
[2020-05-12] MEDS: Ciprofloxacin 250 MG Tablet PO (22:11)
[2020-05-13 02:00] VITALS: BP 145/90; PULSE 105; RESP 16; TEMP 37; O2SAT 97
[2020-05-13] MEDS: traMADol 50 MG Tablet PO ×3 (02:59→19:12)
[2020-05-13] MEDS: Potassium Chloride 40 MEQ in 0.9% Normal Saline 1,000 ML 100 MEQ IV ×3 (03:00→22:58)
[2020-05-13 07:20] VITALS: O2SAT 96
[2020-05-13 08:00] VITALS: BP 139/83; PULSE 97; RESP 18; TEMP 37.1; O2SAT 98
[2020-05-13] MEDS: Multivitamins,Ther W-Minerals Tablet 1 TABLET PO (08:17)
[2020-05-13] MEDS: Thiamine Hydrochloride 100 MG Tablet PO ×2 (08:17→17:02)
[2020-05-13] MEDS: Folic Acid 1 MG Tablet PO (08:17)
[2020-05-13] MEDS: Ciprofloxacin 250 MG Tablet PO ×2 (08:18→20:57)
[2020-05-13] MEDS: Enoxaparin 40 MG/0.4 ML Syringe SC (08:18)
[2020-05-13] MEDS: amLODIPine 5 MG Tablet PO (08:18)
[2020-05-13 08:39] LABS: Anion Gap 5 (5-15); BUN 8 mg/dL (7-18); BUN/Creat Ratio 24.8 RATIO (10-20); Chloride 105 mmol/L (98-107); Creatinine, Serum 0.32 mg/dL (0.55-1.02); EST Glomerular Filtration Rate 214 mL/min (>60); Est Glom Filt Rate - Afr Amer 259 mL/min (>60); Estimated Creatinine Clearance 43.59 ml/min; Glucose 147 mg/dL (74-106); Potassium 4.6 mmol/L (3.5-5.1); Sodium Level 135 mmol/L (136-145); Thyroid Stim Hormone (TSH) 3.95 uIU/mL (0.358-3.74)
[2020-05-13] MEDS: Acetaminophen 325 MG Tablet 650 MG PO (09:46)
[2020-05-13] MEDS: LORazepam 1 MG Tablet 2 MG PO ×2 (09:47→19:12)
[2020-05-13 12:05] VITALS: BP 124/68; PULSE 101; RESP 18; TEMP 37.2; O2SAT 98
--- NOTE | 2020-05-13 16:00 | CASEMGMT ---
SOCIAL WORK Received voicemail from Jeanette CRABTREE CM. Annika from [facility] called and did not receive fax due to issues with fax machine yesterday. Annika provided fax number [phone]. Referral faxed. Kinza Madera, ENGINE ROOM HELPER, GASOLINE SERVICE ATTENDANT
--- NOTE | 2020-05-13 16:58 | PCM.PROGNOTE ---
Patient Problems: Active and Suspected Problems UTI (urinary tract infection) (Acute) Debility (Acute) Alcoholism (Acute) UTI (urinary tract infection) (Acute) Hypokalemia (Acute) Subjective: Patient was seen and examined today, she complains of some left hip discomfort, she had had surgery in that hip in the past. Patient also complains of painful swallowing, she does not appear that she is eating very much. We are currently awaiting placement in a residential facility for the patient. - Physical Exam Vitals/I&O's: Vital Signs Temp Pulse Resp BP Pulse Ox 98.7 F 97 18 139/83 H 98 05/13/20 08:00 05/13/20 08:00 05/13/20 08:00 05/13/20 08:00 05/13/20 08:00 Oxygen Delivery Method Room Air Weight: 54.3 kg Body Mass Index (BMI) 19.3 Finger Stick Blood Glucose 103 Intake and Output for Last 24 Hours 05/11/20 05/12/20 05/13/20 23:59 23:59 23:59 Intake Total 3226.67 / 3226.67 2526.67 / 2876.67 2615 / 2615 Output Total 600 / 600 700 / 700 Balance 2626.67 / 2626.67 1826.67 / 2176.67 2615 / 2615 General: Alert, Oriented x3, Cooperative, No apparent distress, - - Patient appears cachectic and frail HEENT: Atraumatic, PERRLA, EOMI, Normocephalic Oral: Moist Mucosa Neck: Supple, No JVD, Negative Carotid Bruits, No Nuchal Rigidity, Trachea Midline, Thyroid Normal Size and Texture Lungs: Clear to auscultation, Normal air movement, No rhonchi, No wheeze, No rales Cardiovascular: Regular rate, Regular Rhythm, Normal S1, Normal S2, No murmurs, PMI Normal, No rub noted, No Gallop Abdomen: Bowel Sounds Present, Soft, Non Tender, Non-Distended Extremities: No clubbing, No cyanosis, No edema, Capillary Refill Less than 3 Seconds Skin: No rashes, No breakdown Musculoskeletal: No Tenderness to Palpation of Joints or Extremities Neurological: Cranial nerves II-XII grossly intact, Neuro grossly intact, Sensory exam intact to light touch and pain Psych/Mental Status: Normal Affect, Appropriate, Alert and oriented to time, place, person, mood and affect Microbiology Past 72 Hours 05/10/20 17:50 Urine, Catheterized Urine Culture - Final Presumptive E. coli 05/11/20 23:30 Stool C. difficile DNA Amplification - Final 05/10/20 17:17 Mucosa - Nose SARS-CoV-2 Antigen (Rapid) - Final Laboratory Results 05/13/20 07:44: Sodium 135 L, Potassium 4.6, Chloride 105, Carbon Dioxide 25.0, Anion Gap 5, BUN 8, Creatinine 0.32 L, Estim Creat Clear Calc 43.59, Est GFR (MDRD) Af Amer 259, Est GFR (MDRD) Non-Af 214, BUN/Creatinine Ratio 24.8 H, Glucose 147 H, Calcium 9.0, TSH 3.95 H Current Medications Acetaminophen (Acetaminophen 325 Mg Tablet) 650 mg PO Q6H PRN PRN PRN Reason: Pain Score 1-10/Temp > 100.7 F Last Admin: 05/13/20 09:46 Dose: 650 mg Documented by: Amlodipine Besylate (Amlodipine 5 Mg Tablet) 5 mg PO DAILY [facility] Last Admin: 05/13/20 08:18 Dose: 5 mg Documented by: Ciprofloxacin HCl (Ciprofloxacin 250 Mg Tablet) 250 mg PO BID [facility] Stop: 05/15/20 22:01 Last Admin: 05/13/20 08:18 Dose: 250 mg Documented by: Enoxaparin Sodium (Enoxaparin 40 Mg/0.4 Ml Syringe) 40 mg SC DAILY [facility] Last Admin: 05/13/20 08:18 Dose: 40 mg Documented by: Potassium Chloride 40 meq/ (Sodium Chloride) 1,020 mls @ 100 mls/hr IV .[id number] [facility] Last Admin: 05/13/20 13:03 Dose: 100 mls/hr Documented by: Lorazepam (Lorazepam 1 Mg Tablet) 2 mg PO Q2H PRN PRN; Protocol PRN Reason: CIWA score > 8 but <15 Last Admin: 05/13/20 09:47 Dose: 2 mg Documented by: Lorazepam (Lorazepam 1 Mg Tablet) 2 mg PO UD PRN; Protocol PRN Reason: CIWA score >/=15. Lorazepam (Lorazepam 2 Mg/Ml Syringe) 2 mg IV Q2H PRN PRN; Protocol PRN Reason: CIWA score > 8 but <15 Lorazepam (Lorazepam 2 Mg/Ml Syringe) 2 mg IV UD PRN; Protocol PRN Reason: CIWA score >/=15. Melatonin (Melatonin 3 Mg Tablet) 3 mg PO QHS PRN PRN PRN Reason: INSOMNIA Multivitamins/Minerals (Multivitamins,Ther W-Minerals Tablet) [facility] Last Admin: 05/13/20 08:17 Dose: 1 tablet Documented by: Ondansetron HCl (Ondansetron 4 Mg/2 Ml Vial) 4 mg IV Q8H PRN PRN PRN Reason: NAUSEA/VOMITING Sodium Chloride (0.9% Saline Lock 10 Ml Syringe) 10 - 40 ml IV UD PRN PRN Reason: SALINE FLUSH Thiamine HCl (Thiamine Hydrochloride 100 Mg Tablet) [facility] mg [facility] Stop: 05/13/20 17:01 Last Admin: 05/13/20 08:17 Dose: 100 mg Documented by: Throat Lozenges (Benzocaine/Menthol 1 Lozenge) 1 lozenge MUCOUS MEM Q2H PRN PRN PRN Reason: sore throat/cough Last Admin: 05/12/20 11:42 Dose: 1 lozenge Documented by: Tramadol HCl (Tramadol 50 Mg Tablet) 50 mg PO Q6H PRN PRN PRN Reason: Pain Score 1-10 Last Admin: 05/13/20 13:11 Dose: 50 mg Documented by: Medical Necessity - Tobacco Use Smoking Status: Current some day smoker Assessment/Plan All Active Problems UTI (urinary tract infection) (Acute) Debility (Acute) Alcoholism (Acute) UTI (urinary tract infection) (Acute) Gastroenteritis (Resolved) Hypokalemia (Acute) #1 cystitis secondary to E. coli-she is currently on Cipro #2 generalized debility-again we are awaiting placement in residential facility #3 ethanol abuse #4 bipolar disorder #5 hypokalemia-resolved #6 essential hypertension #7 osteoarthritis This examiner does not feel the patient had rhabdomyolysis. Inpatient E&M: 17657 Subs Hosp L2
[2020-05-13 17:07] VITALS: BP 120/92; PULSE 103; RESP 18; TEMP 37.4; O2SAT 98
--- NOTE | 2020-05-13 17:24 | NURSING ---
Pt complaining of pain with swallowing. Was unable to swallow pills RN crushed all meds today.
--- NOTE | 2020-05-13 19:00 | NURSING ---
Pt c/o severe L Hip pain. 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 CIWA of twenty.
[2020-05-13 20:50] VITALS: BP 129/66; PULSE 112; RESP 16; TEMP 36.7; O2SAT 96
[2020-05-14] MEDS: traMADol 50 MG Tablet PO ×2 (01:32→08:23)
[2020-05-14 03:18] VITALS: BP 133/62; PULSE 95; RESP 16; TEMP 36.9; O2SAT 96
[2020-05-14] MEDS: Acetaminophen 325 MG Tablet 650 MG PO ×2 (06:16→21:53)
[2020-05-14 06:38] LABS: Anion Gap 3 (5-15); BUN 10 mg/dL (7-18); BUN/Creat Ratio 25.6 RATIO (10-20); Calcium,Total 9.1 mg/dL (8.5-10.1); Chloride 103 mmol/L (98-107); Creatinine, Serum 0.39 mg/dL (0.55-1.02); EST Glomerular Filtration Rate 171 mL/min (>60); Est Glom Filt Rate - Afr Amer 207 mL/min (>60); Estimated Creatinine Clearance 43.59 ml/min; Glucose 162 mg/dL (74-106); Potassium 4.8 mmol/L (3.5-5.1); Sodium Level 135 mmol/L (136-145)
[2020-05-14] MEDS: Multivitamins,Ther W-Minerals Tablet 1 TABLET PO (08:21)
[2020-05-14] MEDS: Enoxaparin 40 MG/0.4 ML Syringe SC (08:22)
[2020-05-14] MEDS: Ciprofloxacin 250 MG Tablet PO ×2 (08:22→21:44)
[2020-05-14] MEDS: Potassium Chloride 40 MEQ in 0.9% Normal Saline 1,000 ML 100 MEQ IV (08:23)
[2020-05-14] MEDS: amLODIPine 5 MG Tablet PO (08:23)
[2020-05-14 08:25] VITALS: BP 125/71; PULSE 83; RESP 18; TEMP 36.8; O2SAT 97
--- NOTE | 2020-05-14 10:54 | PCM.PROGNOTE ---
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 Patient refused to get up with physical therapy today. - Physical Exam Vitals/I&O's: Vital Signs Temp Pulse Resp BP Pulse Ox 98.2 F 83 18 125/71 H 97 05/14/20 08:25 05/14/20 08:25 05/14/20 08:25 05/14/20 08:25 05/14/20 08:25 Oxygen Delivery Method Room Air Weight: 54.3 kg Body Mass Index (BMI) 19.3 Finger Stick Blood Glucose 103 Intake and Output for Last 24 Hours 05/12/20 05/13/20 05/14/20 23:59 23:59 23:59 Intake Total 2526.67 / 2876.67 3606.67 / 3806.67 1526.67 / 1526.67 Output Total 700 / 700 300 / 300 950 / 950 Balance 1826.67 / 2176.67 3306.67 / 3506.67 576.67 / 576.67 General: Alert, Oriented x3, Cooperative, No apparent distress, Well developed HEENT: Atraumatic, PERRLA, EOMI, Normocephalic Oral: Moist Mucosa Neck: Supple, No JVD, Negative Carotid Bruits, No Nuchal Rigidity, Trachea Midline, Thyroid Normal Size and Texture Lungs: Clear to auscultation, Normal air movement, No rhonchi, No wheeze, No rales Cardiovascular: Regular rate, Regular Rhythm, Normal S1, Normal S2, No murmurs Abdomen: Bowel Sounds Present, Soft, Non Tender, Non-Distended Extremities: No clubbing, No cyanosis, No edema, Capillary Refill Less than 3 Seconds Skin: No rashes, No breakdown Musculoskeletal: No Tenderness to Palpation of Joints or Extremities Neurological: Cranial nerves II-XII grossly intact, Neuro grossly intact, Sensory exam intact to light touch and pain Psych/Mental Status: Normal Affect, Appropriate, Alert and oriented to time, place, person, mood and affect Microbiology Past 72 Hours 05/10/20 17:50 Urine, Catheterized Urine Culture - Final Presumptive E. coli 05/11/20 23:30 Stool C. difficile DNA Amplification - Final Laboratory Results 05/14/20 05:45: Sodium 135 L, Potassium 4.8, Chloride 103, Carbon Dioxide 29.0, Anion Gap 3 L, BUN 10, Creatinine 0.39 L, Estim Creat Clear Calc 43.59, Est GFR (MDRD) Af Amer 207, Est GFR (MDRD) Non-Af 171, BUN/Creatinine Ratio 25.6 H, Glucose 162 H, Calcium 9.1 Current Medications Acetaminophen (Acetaminophen 325 Mg Tablet) 650 mg PO Q6H PRN PRN PRN Reason: Pain Score 1-10/Temp > 100.7 F Last Admin: 05/14/20 06:16 Dose: 650 mg Documented by: Amlodipine Besylate (Amlodipine 5 Mg Tablet) 5 mg PO DAILY [facility] Last Admin: 05/14/20 08:23 Dose: 5 mg Documented by: Ciprofloxacin HCl (Ciprofloxacin 250 Mg Tablet) 250 mg PO BID [facility] Stop: 05/15/20 22:01 Last Admin: 05/14/20 08:22 Dose: 250 mg Documented by: Enoxaparin Sodium (Enoxaparin 40 Mg/0.4 Ml Syringe) 40 mg SC DAILY [facility] Last Admin: 05/14/20 08:22 Dose: 40 mg Documented by: Lorazepam (Lorazepam 2 Mg/Ml Syringe) 2 mg IV UD PRN; Protocol PRN Reason: CIWA score >/=15. Melatonin (Melatonin 3 Mg Tablet) 3 mg PO QHS PRN PRN PRN Reason: INSOMNIA Multivitamins/Minerals (Multivitamins,Ther W-Minerals Tablet) [facility] Last Admin: 05/14/20 08:21 Dose: 1 tablet Documented by: Ondansetron HCl (Ondansetron 4 Mg/2 Ml Vial) 4 mg IV Q8H PRN PRN PRN Reason: NAUSEA/VOMITING Sodium Chloride (0.9% Saline Lock 10 Ml Syringe) 10 - 40 ml IV UD PRN PRN Reason: SALINE FLUSH Throat Lozenges (Benzocaine/Menthol 1 Lozenge) 1 lozenge MUCOUS MEM Q2H PRN PRN PRN Reason: sore throat/cough Last Admin: 05/12/20 11:42 Dose: 1 lozenge Documented by: Medical Necessity - Tobacco Use Smoking Status: Current some day smoker Assessment/Plan All Active Problems UTI (urinary tract infection) (Acute) Debility (Acute) Alcoholism (Acute) UTI (urinary tract infection) (Acute) Gastroenteritis (Resolved) Hypokalemia (Acute) #1 cystitis secondary to E. coli-she is currently on Cipro #2 generalized debility-again we are awaiting placement in intermediate facility #3 ethanol abuse/alcoholism #4 bipolar disorder #5 hypokalemia-resolved #6 essential hypertension #7 osteoarthritis This examiner does not feel the patient had rhabdomyolysis. Inpatient E&M: 11486 Subs Hosp L2
[2020-05-14 16:00] VITALS: BP 123/66; PULSE 84; RESP 18; TEMP 37.1; O2SAT 97
[2020-05-14] MEDS: traMADol 50 MG Tablet 100 MG PO ×2 (17:17→23:23)
[2020-05-14 21:45] VITALS: BP 120/65; PULSE 93; RESP 18; TEMP 36.7; O2SAT 96
[2020-05-14] MEDS: MELATONIN 3 MG TABLET PO (21:53)
[2020-05-15 03:30] VITALS: BP 111/61; PULSE 93; RESP 18; TEMP 36.7; O2SAT 95
[2020-05-15] MEDS: traMADol 50 MG Tablet 100 MG PO ×3 (05:59→18:46)
[2020-05-15] MEDS: amLODIPine 5 MG Tablet PO (08:58)
[2020-05-15] MEDS: Ciprofloxacin 250 MG Tablet PO ×2 (08:58→21:18)
[2020-05-15] MEDS: Multivitamins,Ther W-Minerals Tablet 1 TABLET PO (08:58)
[2020-05-15] MEDS: Enoxaparin 40 MG/0.4 ML Syringe SC (08:59)
--- NOTE | 2020-05-15 08:59 | CASEMGMT ---
Addendum entered by Jeanette Wright 05/15/20 14:25: SAM received message from Corrina at [facility] stating DON has questions. SAM placed a call back to Corrina and answered questions. SAM also placed a call to [facility] and asked for Carmen as that is who Annika requested I speak to today. Per staff, Carmen is out today. SAM asked for admissions, was transferred to admissions. SAM left message asking if this worker can complete convalescent 7000 in [place] instead of PAS/RR as pt is in inpatient and pt is planning on short term, less than 30 days at SNF. SAM explained that pt will trip PAS/RR and pt will be at [facility] for unnecessary days. SW waiting for call back from both [facility] and [facility]. Plan: SNF pending acceptance Addendum entered by Jeanette Wright 05/15/20 12:10: SAM placed a call to [facility] and spoke with Corrina in admissions. SAM asked Corrina if they've decided on referral yet. Corrina states their DON is out today did email updates and will call this worker when a decision has been made. Original Note: Social Work Note SW received message from Annika at [facility] stating clinically they are able to accept pt but requests PAS/RR be completed. Pt will trip the PAS/RR as pt had psych hospitalization last week and will need to get approval from Mental Health Board before pt could admit to SNF. Annika states to have this worker call Carmen VARGAS on Friday [phone]. SAM did fax updated clinicals to [facility] as they requested updates be faxed Friday to determine if they are able to accept pt. Plan: SNF pending acceptance Jeanette Wright PUBLIC IMPROVEMENT INSPECTOR, SCIENTIFIC WRITER
[2020-05-15 09:00] VITALS: BP 123/74; PULSE 100; RESP 18; TEMP 36.7; O2SAT 96
--- NOTE | 2020-05-15 14:22 | NT.THERAPY_ITS ---
Nutrition Therapy Report - History Current diet / nutrition support order:: Regular diet w/ magic cup BID lunch and dinner - Anthropometric Measurements Height:: 5 ft 6 in Weight:: 54.3 kg Body Mass Index (BMI):: 19.3 - Relevant Labs Relevant Labs:: RBC 3.59 M/mm3 (4.2-5.4) L 05/12/20 05:23 Hgb 10.4 g/dL (12.0-15.0) L 05/12/20 05:23 Hct 32.1 % (37-47) L 05/12/20 05:23 Neut % (Auto) 71.3 % (47-70) H 05/12/20 05:23 Lymph % (Auto) 8.6 % (19-41) L 05/11/20 07:20 Absolute Neuts (auto) 9.0 X10^3/uL (2.0-7.7) H 05/11/20 07:20 Sodium 135 mmol/L (136-145) L 05/14/20 05:45 Potassium 3.1 mmol/L (3.5-5.1) L 05/10/20 16:53 Chloride 110 mmol/L (98-107) H 05/12/20 05:23 Anion Gap 3 (5-15) L 05/14/20 05:45 Creatinine 0.39 mg/dL (0.55-1.02) L 05/14/20 05:45 BUN/Creatinine Ratio 25.6 RATIO (10-20) H 05/14/20 05:45 Glucose 162 mg/dL (74-106) H 05/14/20 05:45 Lactic Acid 3.0 mmol/L (0.4-1.9) H* 05/10/20 16:53 Calcium 8.1 mg/dL (8.5-10.1) L 05/11/20 07:20 Total Creatine Kinase 312 U/L (26-192) H 05/11/20 07:20 TSH 3.95 uIU/mL (0.358-3.74) H 05/13/20 07:44 - Assessment Food / Nutrition-Related History:: Most recent EMR wt was 131.0# on 05/01/20 and CBW 119.7#- 11.3#/8.6% wt loss x < 2 weeks is significant for malnutrition in addition to overall poor intake less than 50% since admit x 5-7 days meet criteria for malnutrition. No current wt since admit noted. Ensure clear with m edpass was d/c on 05/11 but, continues to receive magic cup with meals as tolerated. - Nutrition Diagnosis Problem / Etiology / Signs & Symptoms (PES):: Severe pro/kam malnutrition related to social circumstance r/t to ETOH and suboptimal oral intake as evidenced by 8.6% wt loss x < 2 weeks and overall poor intake less than 50% since admit x 5-7 days. Evidence of Malnutrition Exists:: Yes Severe PCM:: Social & Environmental circumstances - Nutrition Intervention Nutrition Prescription:: Estimated nutrition needs for repletion~[id number] kcal and ~55-65 gm pro/day. - Food / Nutrient Delivery Interventions Summary of nutrition intervention:: Pt refusing ensure clear w/ medpass so, it was previously d/c. Will continue to provide magic cup BID for additional 580 kcal and 18 gm protein if accepted. Nutrition support ordered as / adjusted to:: no nutrition support Nutrition education provided?: Yes - MNT Monitoring Further MNT monitoring and evaluation required?: Yes MNT Follow-up in:: 3-5 days
[2020-05-15 14:28] VITALS: BMI 19.3
--- NOTE | 2020-05-15 15:00 | CASEMGMT ---
Addendum entered by Jeanette Wright 05/15/20 17:56: SW received message from Corrina at [facility] stating they are able to accept pt tomorrow. SW placed a call back to Corrina in admissions and left message confirming that they will take pt with convalescent [facility] and not the PAS/RR. SW will follow up with pt and [place] tomorrow as pt now wants to call her friend shivani to determine if she is able to return home or to SNF. Original Note: Social Work Note SW received message from Annika at [facility] that due to pt's recent psych hospitalization and psych diagnosis, they will require PAS/RR for pt to admit. SW in to speak with pt. SW updated pt that this worker is still waiting to hear back from [place] and to get final approval for [facility]. Pt states she is not going to a SNF now. SW asked pt how she will manage at home as she has refused to ambulate while at [facility]. Pt states she is not sure as she has 15 steps to enter home. SW informed pt that the recommendation is SNF placement. Pt states she has been to [facility] before and they didn't discharge her home with pain pills and pt had pain at home and that is why she started drinking again. Pt then states she is getting metal poisoning from her recent hip surgery. SW again informed pt that the recommendation is SNF. Pt states she will be calling her friend to see if he can assist. Pt states you all think I am crazy. SW informed pt that this worker is still going to work on SNF placement and pt can call her friend shivani to determine if pt is able to return home. Pt states understanding. SW will follow up with pt, [facility], [facility] tomorrow. Plan: TBD Jeanette Wright SANITATION MANAGER, CAMPAIGN SPECIALIST
--- NOTE | 2020-05-15 15:08 | PCM.PROGNOTE ---
Subjective: Chief complaint: Follow-up after admission for E. coli acute cystitis, hypokalemia, chronic left hip pain, debility. Patient seen and examined. No acute events overnight. Today, she complained of left hip pain but this has been going on since January, and she has been following up with orthopedic surgery and hematology. No other complaints. Her vital signs are stable, afebrile. - Physical Exam Vitals/I&O's: Vital Signs Temp Pulse Resp BP Pulse Ox 98.0 F 100 18 123/74 H 96 05/15/20 09:00 05/15/20 09:00 05/15/20 09:00 05/15/20 09:00 05/15/20 09:00 Oxygen Delivery Method Room Air Weight: 119 lb 11.376 oz Body Mass Index (BMI) 19.3 Finger Stick Blood Glucose 103 Intake and Output for Last 24 Hours 05/13/20 05/14/20 05/15/20 23:59 23:59 23:59 Intake Total 3606.67 / 3806.67 1766.67 / 1766.67 740 / 740 Output Total 300 / 300 3000 / 3000 Balance 3306.67 / 3506.67 -1233.33 / -1233.33 740 / 740 General: Alert, Oriented x3, Cooperative, No apparent distress HEENT: Atraumatic, PERRLA, EOMI, Normocephalic Oral: Moist Mucosa, No Gingival or Mucosal Lesions/ Ulcerations Neck: Supple, No JVD, Negative Carotid Bruits, Trachea Midline, Thyroid Normal Size and Texture Lungs: Clear to auscultation, Normal air movement, No rhonchi, No wheeze, No rales Cardiovascular: Regular rate, Regular Rhythm, Normal S1, Normal S2, PMI Normal Abdomen: Bowel Sounds Present, Soft, Non Tender, Non-Distended, No Hepato-splenomegaly Extremities: No clubbing, No cyanosis, No edema Skin: No rashes, No breakdown Lymphatic: No Cervical, Supraclavicular, or Inguinal Adenopathy Neurological: Cranial nerves II-XII grossly intact, Neuro grossly intact Psych/Mental Status: Normal Affect, Appropriate Microbiology Past 72 Hours 05/10/20 17:50 Urine, Catheterized Urine Culture - Final Presumptive E. coli Current Medications Acetaminophen (Acetaminophen 325 Mg Tablet) 650 mg PO Q6H PRN PRN PRN Reason: Pain Score 1-10/Temp > 100.7 F Last Admin: 05/14/20 21:53 Dose: 650 mg Documented by: Amlodipine Besylate (Amlodipine 5 Mg Tablet) 5 mg PO DAILY [facility] Last Admin: 05/15/20 08:58 Dose: 5 mg Documented by: Ciprofloxacin HCl (Ciprofloxacin 250 Mg Tablet) 250 mg PO BID [facility] Stop: 05/15/20 22:01 Last Admin: 05/15/20 08:58 Dose: 250 mg Documented by: Enoxaparin Sodium (Enoxaparin 40 Mg/0.4 Ml Syringe) 40 mg SC DAILY [facility] Last Admin: 05/15/20 08:59 Dose: 40 mg Documented by: Lorazepam (Lorazepam 2 Mg/Ml Syringe) 2 mg IV UD PRN; Protocol PRN Reason: CIWA score >/=15. Melatonin (Melatonin 3 Mg Tablet) 3 mg PO QHS PRN PRN PRN Reason: INSOMNIA Last Admin: 05/14/20 21:53 Dose: 3 mg Documented by: Multivitamins/Minerals (Multivitamins,Ther W-Minerals Tablet) [facility] Last Admin: 05/15/20 08:58 Dose: 1 tablet Documented by: Ondansetron HCl (Ondansetron 4 Mg/2 Ml Vial) 4 mg IV Q8H PRN PRN PRN Reason: NAUSEA/VOMITING Sodium Chloride (0.9% Saline Lock 10 Ml Syringe) 10 - 40 ml IV UD PRN PRN Reason: SALINE FLUSH Throat Lozenges (Benzocaine/Menthol 1 Lozenge) 1 lozenge MUCOUS MEM Q2H PRN PRN PRN Reason: sore throat/cough Last Admin: 05/12/20 11:42 Dose: 1 lozenge Documented by: Tramadol HCl (Tramadol 50 Mg Tablet) 100 mg PO Q6H PRN PRN PRN Reason: Pain Score 1-10 Last Admin: 05/15/20 12:26 Dose: 100 mg Documented by: Medical Necessity - Tobacco Use Smoking Status: Current some day smoker Assessment/Plan This is a 70 years old female patient presented to the emergency room because of chronic pain mainly on her left hip and difficulty ambulating and she was found to have acute E. coli cystitis and she has been drinking alcohol daily. #1 E. coli acute cystitis: She is on p.o. ciprofloxacin. Urine culture reviewed, revealed E. coli that was pansensitive. She has been afebrile, no leukocytosis. Plan to continue ciprofloxacin, anticipate discharge home with home health versus SNF tomorrow. #2 chronic pain syndrome/chronic left hip pain: Her pain is chronic without acute issues. She does have a history of arthritis according to her and she attributed it to nickel. She will history of left hip replacement and she has been having left hip pain since January,. She followed up with orthopedic surgery and currently, she is following up with rheumatology. Currently, she is on tramadol, pain is manageable. Plan to continue same treatment. #3 physical debility/functional decline: PT OT evaluation and treatment, patient to decide to go home with home health versus placement to group home facility. #4 alcohol intoxication: Without evidence of acute alcohol withdrawal. Admission alcohol level was 203. Urine drug screen was negative. Her vital signs are stable. #5 hypertension: #6 chronic alcoholic hepatitis: Stable. #7 history of chronic pancreatitis: Stable. #8 DVT prophylaxis: Subcu Lovenox. This note was generated with [employer] dictation software. It may contain incorrect words, spelling, and punctuation that were not noted in checking the note before signing. Inpatient E&M: 12538 Subs Hosp L2
[2020-05-15 15:35] VITALS: BP 124/50; PULSE 101; RESP 18; TEMP 36.7; O2SAT 99
[2020-05-15 19:49] VITALS: BP 115/69; PULSE 91; RESP 16; TEMP 36.8; O2SAT 97
[2020-05-15] MEDS: Acetaminophen 325 MG Tablet 650 MG PO (23:36)
[2020-05-15] MEDS: MELATONIN 3 MG TABLET PO (23:36)
[2020-05-16] MEDS: traMADol 50 MG Tablet 100 MG PO ×2 (00:48→08:25)
[2020-05-16 01:56] VITALS: BP 114/53; PULSE 81; RESP 16; TEMP 36.7; O2SAT 95
[2020-05-16] MEDS: Enoxaparin 40 MG/0.4 ML Syringe SC (08:21)
[2020-05-16] MEDS: amLODIPine 5 MG Tablet PO (08:21)
[2020-05-16] MEDS: Multivitamins,Ther W-Minerals Tablet 1 TABLET PO (08:21)
[2020-05-16 08:30] VITALS: BP 126/54; PULSE 98; RESP 16; TEMP 36.5; O2SAT 94
--- NOTE | 2020-05-16 09:17 | CASEMGMT ---
Addendum entered by Jeanette Wright 05/16/20 11:56: SW back in to speak with pt. Pt states she has been unable to get in contact with her friend. SW asked pt what her plan is for discharge then. Pt states well I guess I will go to the custodial. SW informed pt that [facility] in [place] is the closest SNF this worker could find that would accept pt. Pt agreeable to [facility] in [place]. SW updated pt that transportation will be arranged and this worker will let her know transportation time. Pt states understanding. Physician updated. SAM placed a call to Corrina in admissions at [facility] and left message that pt will be discharged to her today and that this worker will complete convalescent [facility] as pt is in inpatient and is planning on being at SNF for less than 30 days. SAM spoke with RN, pt can transport via wheelchair van. Addendum entered by Jeanette Wright 05/16/20 11:01: SW received multiple calls from Annika at [facility]. SAM placed a call to Annika, updated her that pt is now undecided on whether she wants to go to SNF or return home. Annika states if pt goes to SNF she will have a copay on day 1. SW to update SNF once pt has decided on discharge plan. Original Note: Social Work Note SW in to speak with pt. Pt states she has been unable to get a hold of her friend. SW asked pt if her friend will be able to provide 24/7 care. Pt states no, but he helps out a lot. SW informed pt that a SNF in [place], [facility], can accept pt and that is the closest SNF that this worker could find that would accept pt. Pt states I don't want to be stuck in some SNF in [place]. SW informed pt that she is going to SNF for short term therapy, will not be there snf. SW asked pt what she is going to do if she can't get a hold of her friend. Pt states I don't know. SW informed pt that this worker will be back around 12:00pm to get pt's decision as pt is medically ready for discharge today. Pt states understanding. SW informed pt that if she can't get a hold of her friend today then she needs to consider the options of home vs SNF today. SW will follow up with pt around noon to get decision. Plan: TBD Jeanette Wright CUSTOMER SUPPORT ADVISOR, INTERLOCKER
--- NOTE | 2020-05-16 12:17 | TREXTCAR_ITS ---
- Diet 05/10/20 21:59 Diet: Regular - General Food consistency:: Regular Liquid Consistency:: Regular/Thin Type of Dietary Supplement:: magic cup Diet Comments: lunch and dinner - Suggestions for Active Care Change Position every (hours): 3 Hours to sit in a chair: 2 Times a day to sit in chair: 3 - Therapies Weight Bearing: Weight bearing as tolerated Physical Therapy: Eval and Treat Occupational Therapy: Eval and Treat - Allergies/Procedures Done in Hospital Allergies/Adverse Reactions: Allergies nickel [Nickel] Allergy (Verified 05/10/20 16:42) Rash/autoimmune reactions prochlorperazine edisylate [From Compazine] Adverse Reaction (Verified 05/10/20 16:42) disoriented prochlorperazine maleate [From Compazine] Adverse Reaction (Verified 05/10/20 16:42) DISORIENTED CADMIUM Allergy (Uncoded 05/10/20 16:42) Rash AUTOIMMUNE RESPONSE - Type of Care/Length of Stay Estimated LOS: Convalescent Care Less Than 30 days Type of Care Needed: Skilled Rehab Potential: Fair Prognosis: Fair - Additional Orders/Day of Discharge H&P will serve as current which was dated: 05/10/20 Day of Discharge: 05/16/20 - Dietary and Speech Recommendations Dietitian Recommendations/Changes: Continue regular diet with magic cup BID; encourage intake at meals as tolerated. STATISTICAL ASSISTANT evaluation if chewing/swallowing issues evident. - Follow Up Care Primary Care Physician: Brant Howard Chi, MD [Primary Care Provider] - Please follow up with your Primary Care Physician in: 1 week. Please Follow Up With: Shea Garcia MD When: 2 weeks.
[2020-05-16 12:30] VITALS: BP 120/54; PULSE 96; RESP 18; TEMP 36.9; O2SAT 97
--- NOTE | 2020-05-16 12:40 | CASEMGMT ---
Addendum entered by Jeanette Wright 05/16/20 13:19: SW updated Annika at [facility] to disregard referral. Original Note: Social Work Note SAM faxed completed discharge paperwork to [facility] including transfer to extended care facility, signed medication list, any scripts, negative COVID test and COVID screening tool. Original in SNF folder and copy on pt's chart. SAM completed [facility] in [facility]. Original in SNF folder and copy on pt's chart. SAM accessed trip assist and scheduled transportation for 1:00pm via wheelchair van. Transportation form completed and placed on SNF folder and copy on pt's chart. SAM placed a call to Corrina at [facility] and updated her on transportation time. SAM updated RN and Pt on transportation time. Plan: Discharge to [facility] skilled today with physician's ambulance transporting via wheelchair van at 1:00pm Jeanette BEAR, PARALLEL COMPUTING SOFTWARE ENGINEER
--- NOTE | 2020-05-16 13:08 | NURSING ---
[facility]. message left to return call for report. transport here for discharge.
--- NOTE | 2020-05-16 13:38 | DS.PCM_ITS ---
Discharge Date and Diagnosis Date of Admission: 05/10/20 Date of Discharge: 05/16/20 - Primary Discharge Diagnosis Acute Problems: Active Problems #1 E. coli acute cystitis. #2 chronic pain syndrome/chronic left hip pain. #3 physical debility/functional decline. #4 alcohol intoxication. #5 hypertension, started on Norvasc. - Secondary Discharge Diagnosis Chronic Problems: Chronic Problems Debility (Chronic) Autoimmune pancreatitis (Chronic) Alcohol dependence (Chronic) Psoriatic arthritis (Chronic) Severe protein-calorie malnutrition (Chronic) HLD (hyperlipidemia) (Chronic) GERD (gastroesophageal reflux disease) (Chronic) Tobacco use (Chronic) Hepatic steatosis (Chronic) Abnormal LFTs (Chronic) Alcohol abuse (Chronic) Hypertension (Chronic) Hypothyroidism (Chronic) Anxiety (Chronic) Fibromyalgia (Chronic) Dysphagia (Chronic) Rheumatoid arthritis (Chronic) never confirmed.....RA is negative.....tells me that she has psoriatic arthritis Psoriasis (Chronic) Chronic back pain (Chronic) osteoarthritis Delusional disorder (Chronic) Bipolar disorder (Chronic) Depression with H/o suicidal attempt (Chronic) Hospital Course and Treatment Imaging Results: Clinical Impression(s) from Imaging Studies Chest X-Ray 05/10/20 17:20 IMPRESSION: Normal x-ray examination of the chest. Electronically Signed: Justo Brady MD at 18:02 EST , Service support , Operations: None Procedures: None Summary of Care Provided: Patient seen and examined on the day of discharge and appeared to be stable to be discharged to senior living facility. Apart from chronic hip pain, no other complaints. When I went to the room first, patient was deeply sleeping and when she woke up, she complained of left hip pain. Her vital signs were stable, she was afebrile. The patient is a 70 year old F presented to the emergency room because of chronic pain issues including back pain and left hip pain. She does have history of arthritis and she mentioned that she has been having left hip pain since she had left total hip replacement on January,. She was following up with orthopedic surgery as well as rheumatology as outpatient. She was found to have E. coli acute cystitis that was treated with IV Rocephin and then switched to p.o. ciprofloxacin. Her routine blood work was unremarkable apart from chronic anemia. COVID-19 antigen were negative. Urine culture revealed E. coli that was pansensitive. Stool for C. difficile was negative. Patient was treated with tramadol as needed for pain. She was evaluated by PT OT and recommended either home with home health versus senior living facility placement. Patient was hesitant to decide about her disposition. Finally, she decided to go to SNF. Patient discharged to SNF in a stable medical condition, discharged on Norvasc for hypertension, discharged on tramadol as needed for pain, recommended follow-up with PCP in 1 week and follow-up with rheumatology in 2 weeks. - Physical Exam Vitals/I&O's: Vital Signs Temp Pulse Resp BP Pulse Ox 98.4 F 96 18 120/54 L 97 05/16/20 12:30 05/16/20 12:30 05/16/20 12:30 05/16/20 12:30 05/16/20 12:30 Oxygen Delivery Method Room Air Weight: 119 lb 11.376 oz Body Mass Index (BMI) 19.3 Finger Stick Blood Glucose 103 Intake and Output for Last 24 Hours 05/14/20 05/15/20 05/16/20 23:59 23:59 23:59 Intake Total 1766.67 / 1766.67 1140 / 1140 500 / 500 Output Total 3000 / 3000 750 / 750 Balance -1233.33 / -1233.33 390 / 390 500 / 500 General: Alert, Oriented x3, Cooperative, No apparent distress HEENT: Atraumatic, PERRLA, EOMI, Normocephalic Oral: Moist Mucosa, No Gingival or Mucosal Lesions/ Ulcerations Neck: Supple, No JVD, Negative Carotid Bruits, Trachea Midline, Thyroid Normal Size and Texture Lungs: Clear to auscultation, Normal air movement, No rhonchi, No wheeze, No rales Cardiovascular: Regular rate, Regular Rhythm, Normal S1, Normal S2 Abdomen: Bowel Sounds Present, Soft, Non Tender, Non-Distended, No Hepato- splenomegaly Extremities: No clubbing, No cyanosis, No edema Skin: No rashes, No breakdown Lymphatic: No Cervical, Supraclavicular, or Inguinal Adenopathy Neurological: Cranial nerves II-XII grossly intact, Neuro grossly intact Home Medications: Medications to take at Discharge Amlodipine [Norvasc] 5 mg PO DAILY #30 tab 05/16/20 traMADol [Ultram] 50 mg PO Q8H PRN PRN #20 tab 05/16/20 Following Prescriptions Were Given to Patient: Amlodipine [Norvasc] 5 mg PO DAILY #30 tab Prescription Printed traMADol [Ultram] 50 mg PO Q8H PRN PRN #20 tab PRN Reason: Pain Score 1-10 Prescription Printed Primary Care Physician: Brant Howard Chi, MD [Primary Care Provider] - Please follow up with your Primary Care Physician in: 1 week. Please Follow Up With: Shea Garcia MD When: 2 weeks. Disposition: Assisted facility Minutes spent on discharge:: 28 Patient Condition:: Stable Medical Necessity - Tobacco Use Smoking Status: Current some day smoker Meaningful Use Info Meaningful Use Diagnoses (Choose all that apply): None applicable Inpatient E&M: 15458 [facility] Hosp
--- NOTE | 2020-05-17 08:42 | CASEMGMT ---
Social Work Note SAM did call Wenceslao at [facility] and provided [facility] referral. Wenceslao states she will be calling [facility] to see if she can meet with pt while pt is at facility. Jeanette Wright PERSONAL CARE ATTENDANT, CHEMICAL LIBRARIAN
== END 2020-05-16 13:10 | disposition skilled nursing facility (03) | DRG 689 ==
LOC: ED 20:07 → MS3 20:09
PROVIDERS: Internal Medicine; Admitting Provider Hospitalist; Emergency Provider Emergency Medicine; PCP Family Medicine Geriatric Medicine; Visit Provider Hospitalist
DX: N30.00 Acute cystitis without hematuria (principal); E43 Unspecified severe protein-calorie malnutrition; K86.1 Other chronic pancreatitis; E87.2 Acidosis; Z68.1 Body mass index [BMI] 19.9 or less, adult; B96.20 Unspecified Escherichia coli [E. coli] as the cause of diseases classified elsewhere; F10.229 Alcohol dependence with intoxication, unspecified; Y90.7 Blood alcohol level of 200-239 mg/100 ml; D89.89 Other specified disorders involving the immune mechanism, not elsewhere classified; E86.0 Dehydration; M16.12 Unilateral primary osteoarthritis, left hip; G89.4 Chronic pain syndrome; I10 Essential (primary) hypertension; L40.50 Arthropathic psoriasis, unspecified; E78.5 Hyperlipidemia, unspecified; K21.9 Gastro-esophageal reflux disease without esophagitis; K76.0 Fatty (change of) liver, not elsewhere classified; E03.9 Hypothyroidism, unspecified; F31.9 Bipolar disorder, unspecified; F41.9 Anxiety disorder, unspecified; F22 Delusional disorders; M79.7 Fibromyalgia; D64.9 Anemia, unspecified; E87.6 Hypokalemia; K70.10 Alcoholic hepatitis without ascites; R53.81 Other malaise; R13.10 Dysphagia, unspecified; R62.7 Adult failure to thrive; Z96.642 Presence of left artificial hip joint; Z79.899 Other long term (current) drug therapy
CPT/HCPCS: 36415; 71045; 80048; 80307; 80320; 81001; 82550; 83605; 83735; 84443; 85025; 87086; 87088; 87186; 87426; 87493; 93005; 97110; 97162; 97166; 97530; 97535; 99285; 99406; J7030; A4216; G0480

== ENCOUNTER 2020-06-03 22:04 | Emergency (ER) | payer SELFPAY ==
[2020-06-03 22:08] VITALS: BP 138/86; PULSE 93; RESP 14; TEMP 36.6; O2SAT 98; BMI 20.7
--- NOTE | 2020-06-03 22:22 | ED.VIS.GEN ---
History of Present Illness Chief Complaint: Lower Extremity Injury Narrative: This patient is a 70-year-old female who presents with diffuse joint pain. This has been present for about 5 months ever since she had a left hip replacement. She states that she thinks it is a allergy to the metal. Her pain has not suddenly worsen there were no acute changes. She states she just cannot take the pain anymore. She does note that she has had similar joint pains in the past. She saw a water resource specialist at one point but states they had just started but not completed the work-up. She then later stated that they did not think it was related to arthritis. Patient was hospitalized at the beginning of this month and discharged on tramadol but she does not think she has this anymore. No fevers. No fall. No vomiting or diarrhea. No other recent medical illness. Past Medical History - Allergies and Home Meds Allergies/Adverse Reactions: Allergies nickel [Nickel] Allergy (Verified 06/03/20 22:11) Rash/autoimmune reactions prochlorperazine edisylate [From Compazine] Adverse Reaction (Verified 06/03/20 22:11) disoriented prochlorperazine maleate [From Compazine] Adverse Reaction (Verified 06/03/20 22:11) DISORIENTED CADMIUM Allergy (Uncoded 06/03/20 22:11) Rash AUTOIMMUNE RESPONSE Primary Care Physician: Brant Howard Chi, MD [Primary Care Provider] - Past Medical History: - - Hypertension, chronic pain Surgical History: tonsillectomy, - - Recent left hip fracture with repair. Smoking Status: Light Smoker (<10/day) - Family History Maternal Family History: Reports: - - Reports autoimmune disease. Paternal Family History: Reports: - - Reports that her father from aspiration pneumonia at age 92. And her grandfather from pneumonia at age 32. She also notes that her father had exposure to nickel and had some diseases related but cannot give this information. Denied any history of heart disease, diabetes or cancer. Review of Systems All systems negative except as indicated General: Denies: Fever Eyes: Denies: Visual changes - bilaterally Cardiovascular: Denies: Chest pain Respiratory: Denies: Dyspnea Gastrointestinal: Denies: Nausea, Vomiting, Diarrhea Musculoskeletal: Reports: Arthralgias, Extremity Pain. Denies: Myalgias Skin: Denies: Rash Hematologic: Denies: Easy bruising Allergy: Denies: Uticaria Physical Exam Vital Signs/Narrative: Vital Signs Temp Pulse Resp BP Pulse Ox 06/03/20 22:08 97.9 F 93 14 138/86 H 98 Inital Vital Signs reviewed: Yes General: Well nourished Head: Normocephalic Eyes: EOMI ENT: Moist mucous membranes Neck: Supple Cardiovascular: Regular rate, Regular rhythm Respiratory: No distress, CTA bilaterally Abdomen: Soft Extremities: - - Patient has diffuse tenderness of joints but I do not appreciate swelling or erythema. She has active full range of motion. She has palpable distal pulses. Compartments are soft. Neurological: Alert, - - Normal strength and sensation of the extremities Psychological: Normal affect Diagnostic/Tx/Re-eval - Medical Decision Making Patient presents with diffuse chronic joint pain of about 5 months. This has not changed acutely. She does not have any other systemic symptoms such as fever. No recent fall or injury. Her skin is warm and dry with brisk capillary refill. Patient previously prescribed tramadol. She was given a dose here and a prescription for short course of the same. I advised that she contact her primary care physician in regards to follow-up for this chronic pain. Patient discharged. ED Disposition - Plan for ED Patient: Disposition: Home or Assisted Living Diagnosis: Chronic pain, Arthralgia Instructions: ED Chronic Pain Prescriptions: traMADol [Ultram] 50 mg PO Q6H PRN 3 Days #12 tab PRN Reason: Pain Prescription Printed Referrals: Brant Howard Chi, MD [Primary Care Provider] -
[2020-06-03] MEDS: traMADol 50 MG Tablet PO (22:31)
--- NOTE | 2020-06-03 23:10 | RAD_ITS ---
STUDY: X-RAY - PELVIS AND LEFT HIP REASON FOR EXAM: Female, 70 years old. LEFT HIP PAIN. PT HAD TOTAL LEFT HIP SURGERY IN [facility]. NKI TECHNIQUE: 3 views of the pelvis and hip. COMPARISON: None. FINDINGS: There is a non-specific bowel gas pattern. Normal visualized soft tissue structures. Normal bilateral iliac wings, sacroiliac joints and visualized sacrum. Normal bilateral superior and inferior pubic rami. Normal pubic symphysis. Normal bilateral ischial tuberosities. Left total hip arthroplasty is is demonstrated with lucency surrounding the acetabular component which on frog leg view demonstrates rotation of the acetabular component consistent with loosening with the frontal projection demonstrating the edge measuring 2.8 cm to the lateral acetabulum which on frog-leg views measures 1.3 cm. Proximal femoral component demonstrates no evidence of acute fracture with normal alignment. RAD/HIP, UNI W/ Pelvis 2-3 Views IMPRESSION: Findings consistent with a left hip prosthesis acetabular component loosening on frog-leg view demonstrating prosthesis rotation within the acetabular socket, recommend orthopedic consultation for further assessment management. Electronically Signed: Dakota Wilson DO at 23:31 EST , Service support ,
--- NOTE | 2020-06-03 23:50 | ED.DEP ---
ED Disposition - Plan for ED Patient: Disposition: Home or Assisted Living Diagnosis: Chronic pain, Arthralgia Instructions: ED Chronic Pain Prescriptions: traMADol [Ultram] 50 mg PO Q6H PRN 3 Days #12 tab PRN Reason: Pain Prescription Printed Referrals: Brant Howard Chi, MD [Primary Care Provider] - Josh Marie MD [STAFF PHYSICIAN] -
== END 2020-06-04 00:03 | disposition home or self-care (01) ==
LOC: ED 22:42
PROVIDERS: Emergency Provider Emergency Medicine; PCP Family Medicine Geriatric Medicine
DX: T84.031A Mechanical loosening of internal left hip prosthetic joint, initial encounter (principal); G89.29 Other chronic pain; I10 Essential (primary) hypertension; F17.200 Nicotine dependence, unspecified, uncomplicated
CPT/HCPCS: 73502; 99284

== ENCOUNTER 2020-06-09 20:19 | Emergency (ER) | payer SELFPAY ==
[2020-06-09 20:21] VITALS: BP 124/63; PULSE 122; RESP 20; TEMP 36.7; O2SAT 98; BMI 20.6
--- NOTE | 2020-06-09 20:55 | ED.VIS.GEN ---
History of Present Illness Chief Complaint: Other, Pain/Inj Informant: Patient Narrative: 70-year-old female states that she is having allergic reaction to the metal that was put into her body. She will not elaborate any further but begins to curse at me when I ask any type of questions. Apparently this is been an ongoing issue for months. She had a hip replacement and states that that is the metal that is talking about. Asking any probing questions the patient curses at me more and gets more more agitated. - Past Medical History (1) Alcohol abuse Status: Chronic (2) Anxiety Status: Chronic (3) Autoimmune pancreatitis Status: Chronic (4) Bipolar disorder Status: Chronic (5) Chronic back pain Status: Chronic Comment: osteoarthritis (6) Delusional disorder Status: Chronic (7) Fibromyalgia Status: Chronic (8) GERD (gastroesophageal reflux disease) Status: Chronic (9) Hypertension Status: Chronic (10) Hypothyroidism Status: Chronic (11) Psoriasis Status: Chronic (12) Tobacco use Status: Chronic Past Medical History - Allergies and Home Meds Allergies/Adverse Reactions: Allergies nickel [Nickel] Allergy (Verified 06/03/20 22:11) Rash/autoimmune reactions prochlorperazine edisylate [From Compazine] Adverse Reaction (Verified 06/03/20 22:11) disoriented prochlorperazine maleate [From Compazine] Adverse Reaction (Verified 06/03/20 22:11) DISORIENTED CADMIUM Allergy (Uncoded 06/03/20 22:11) Rash AUTOIMMUNE RESPONSE Primary Care Physician: Brant Howard Chi, MD [Primary Care Provider] - As soon as possible Surgical History: tonsillectomy, - - Recent left hip fracture with repair. Smoking Status: Current every day smoker Alcohol: Heavy Drugs: None - Family History Maternal Family History: Reports: - - Reports autoimmune disease. Paternal Family History: Reports: - - Reports that her father from aspiration pneumonia at age 92. And her grandfather from pneumonia at age 32. She also notes that her father had exposure to nickel and had some diseases related but cannot give this information. Denied any history of heart disease, diabetes or cancer. Review of Systems General: Reports: - - Diffuse pain. Denies: Chills, Fever, Sweats Eyes: Denies: Visual changes - bilaterally, Diplopia ENT: Denies: Rhinorrhea, Sore throat Cardiovascular: Denies: Chest pain, Palpitations Respiratory: Denies: Dyspnea, Cough, Dyspnea on exertion Gastrointestinal: Denies: Abdominal pain, Nausea, Vomiting, Diarrhea, Melena, Hematochezia Genitourinary: Denies: Dysuria, Hematuria, Frequency Musculoskeletal: Denies: Back pain, Extremity Pain Skin: Denies: Rash, Wounds Neurological: Denies: Headache, Weakness, Numbness Physical Exam Vital Signs/Narrative: Vital Signs Temp Pulse Resp BP Pulse Ox 06/09/20 20:21 98.1 F 122 H 20 H 124/63 H 98 Inital Vital Signs reviewed: Yes General: Well nourished, Well developed, Unkempt, No Acute Distress Head: Normocephalic, Atraumatic Eyes: Perrl, EOMI ENT: Moist mucous membranes, No rhinorrhea Neck: Supple, Nontender Cardiovascular: Regular rate, Regular rhythm, No murmurs Respiratory: No distress, CTA bilaterally, Chest nontender Abdomen: Soft, Nontender, Nondistended, Normal bowel sounds Back: Nontender, Normal Inspection Extremities: Nontender, No edema Skin: Normal color, No rash Neurological: Alert, Oriented x3, Cranial nerves II-XII grossly intact, Normal Strength, Normal Sensation Psychological: Agitated Diagnostic/Tx/Re-eval - Medical Decision Making Patient continued to curse at me until she states that she is tired of telling the same fucking shit over and over again. I informed her that this appears to be a chronic ongoing issue for her and that the staff here in the emergency department are here to treat emergencies and to care for people. We are not here to be abused and yelled at. The patient apparently urinated the bed then left the emergency department. She pulled the fire alarm on her way out of the emergency department. ED Disposition - Plan for ED Patient: Disposition: Home or Assisted Living Diagnosis: Chronic pain, Alcohol abuse Instructions: ED Chronic Pain Referrals: Brant Howard Chi, MD [Primary Care Provider] - As soon as possible
--- NOTE | 2020-06-09 22:54 | ED.RN ---
patient had taxi at the door waiting to take her home. patient refusing to get into taxi because she states she cant walk or care for her self at home. Patient has been discharged home and refusing to leave. [facility] Police talking to patient because of her destroying property. [facility] police unable to take patient off of property due to patient not able to walk. patient not willing to answer questions or follow directions at this time. decision made with [employer] police to bring patient back into the ER and have mental health see patient at this time due to unwilling to care for self and failure to thrive
--- NOTE | 2020-06-09 23:25 | ED.RN ---
Patient refusing to answer questions to nursing staff and doctors at this time
--- NOTE | 2020-06-10 00:01 | ED.RN ---
Pt continues to refuse to talk at this time. Order to D/c patient, however patient has no place to go at this time and refuses to walk or stand. The patient will stay in ED until social work is able to evaluate her in the AM.
[2020-06-10 07:04] VITALS: PULSE 81; RESP 16
--- NOTE | 2020-06-10 07:39 | ED.RN ---
pt curled up in a position, resting with eyes closed.
--- NOTE | 2020-06-10 09:16 | ED.RN ---
pt laid in bed and urinated all over herself and the bed, then was getting out of bed because she didnt want to lay in the pee. bedding and gown changed, pt placed in an adult diaper.
[2020-06-10 10:12] VITALS: PULSE 66; RESP 14
--- NOTE | 2020-06-10 10:33 | ED.DEP ---
ED Disposition - Plan for ED Patient: Disposition: Home or Assisted Living Diagnosis: Chronic pain, Alcohol abuse Instructions: ED Chronic Pain Referrals: Brant Howard Chi, MD [Primary Care Provider] - As soon as possible
--- NOTE | 2020-06-10 10:37 | ED.RN ---
talked to Henrique from social work. pt would have to be admitted to get shelter placement. Talked to pt and she wanted something for pain. pt was advised that she may get admitted but they may not give her narcotic pain meds for her chronic pain. Pt decided that she did not want to stay to be placed and wanted to go home. Friend is coming to get here at this time
[2020-06-10 10:39] VITALS: PULSE 102; RESP 16; O2SAT 98
== END 2020-06-10 10:40 | disposition home or self-care (01) ==
LOC: ED 21:05
PROVIDERS: Emergency Provider Emergency Medicine; PCP Family Medicine Geriatric Medicine
DX: G89.29 Other chronic pain (principal); F10.10 Alcohol abuse, uncomplicated; Y90.9 Presence of alcohol in blood, level not specified; I10 Essential (primary) hypertension; M79.7 Fibromyalgia; F41.9 Anxiety disorder, unspecified; F17.200 Nicotine dependence, unspecified, uncomplicated; Z96.649 Presence of unspecified artificial hip joint
CPT/HCPCS: 99285

== ENCOUNTER 2020-06-12 17:43 | Inpatient (IN) | payer MEDICARE, SELFPAY ==
[2020-06-12 17:47] VITALS: BP 105/27; PULSE 121; RESP 18; TEMP 36.2; O2SAT 100; BMI 26.2
--- NOTE | 2020-06-12 17:56 | ED.VIS.GEN ---
History of Present Illness Chief Complaint: Weakness Informant: Patient Onset: Month(s) Context: Gradual Onset Timing: Continuous Current Severity: Moderate Maximum Severity: Moderate Narrative: Patient is a 70-year-old female with history of alcohol abuse, arthritis, and chronic pain who presents to the emergency department with exacerbation of her pain. Patient has been seen here 3 times in the past 2 weeks for similar complaints. She states that she had hospitalization for urinary tract infection. She went to a shelter. She has been at home. She was here 2 days ago with exacerbation of her pain. The patient became upset that she was not given IV pain medications. She left the emergency department, broke some equipment, and pulled a fire alarm. Prior similar symptoms: Yes Recent Illness/Hospitalization: Yes Past Medical History - Allergies and Home Meds Allergies/Adverse Reactions: Allergies nickel [Nickel] Allergy (Verified 06/12/20 17:52) Rash/autoimmune reactions prochlorperazine edisylate [From Compazine] Adverse Reaction (Verified 06/12/20 17:52) disoriented prochlorperazine maleate [From Compazine] Adverse Reaction (Verified 06/12/20 17:52) DISORIENTED CADMIUM Allergy (Uncoded 06/12/20 17:52) Rash AUTOIMMUNE RESPONSE Primary Care Physician: Brant Howard Chi, MD [Primary Care Provider] - Prior records reviewed: Yes Past Medical History: - - Alcohol abuse,athritis Surgical History: tonsillectomy, - - Recent left hip fracture with repair. Smoking Status: Current every day smoker - Family History Maternal Family History: Reports: - - Reports autoimmune disease. Paternal Family History: Reports: - - Reports that her father from aspiration pneumonia at age 92. And her grandfather from pneumonia at age 32. She also notes that her father had exposure to nickel and had some diseases related but cannot give this information. Denied any history of heart disease, diabetes or cancer. Review of Systems General: Denies: Chills, Fever, Sweats Eyes: Denies: Visual changes - bilaterally, Diplopia ENT: Denies: Rhinorrhea, Sore throat Cardiovascular: Denies: Chest pain, Palpitations Respiratory: Denies: Dyspnea, Cough, Dyspnea on exertion Gastrointestinal: Reports: Nausea. Denies: Abdominal pain, Vomiting, Diarrhea, Melena, Hematochezia Genitourinary: Denies: Dysuria, Hematuria, Frequency Musculoskeletal: Reports: Myalgias. Denies: Back pain, Extremity Pain Skin: Denies: Rash, Wounds Neurological: Denies: Headache, Weakness, Numbness Physical Exam Vital Signs/Narrative: Vital Signs Temp Pulse Resp BP Pulse Ox 06/12/20 17:47 97.1 F L 121 H 18 105/27 L 100 Inital Vital Signs reviewed: Yes General: Well nourished, Well developed, No Acute Distress Head: Normocephalic, Atraumatic Eyes: Perrl, EOMI ENT: Moist mucous membranes, No rhinorrhea Neck: Supple, Nontender Cardiovascular: Regular rate, Regular rhythm, No murmurs Respiratory: No distress, CTA bilaterally, Chest nontender Abdomen: Soft, Nontender, Nondistended, Normal bowel sounds Back: Nontender, Normal Inspection Extremities: Nontender, No edema Skin: Normal color, No rash Neurological: Alert, Oriented x3, Cranial nerves II-XII grossly intact, Normal Strength, Normal Sensation Psychological: Normal affect, Normal Mood Diagnostic/Tx/Re-eval - Medical Decision Making Patient presents with an exacerbation of her chronic pain. She was offered 1 tramadol which she is on as an outpatient. The patient was recently in a shelter and left. I did have social work evaluate the patient. She did states she does not want go back to her shelter. At this point, I do not have much else to offer her. This is chronic issues and I do not feel that controlling her pain from the emergency department is appropriate. At this point, the patient will be discharged to home after social work consultation. Impression 1. Exacerbation of chronic pain ED Disposition - Plan for ED Patient: Instructions: ED Chronic Pain Referrals: Brant Howard Chi, MD [Primary Care Provider] -
[2020-06-12] MEDS: traMADol 50 MG Tablet PO (17:59)
--- NOTE | 2020-06-12 18:20 | CM.ED ---
SOCIAL WORK ASSESSMENT Informant: Dr. Coulter and nursing Reason for Consult: Discharge Planning Patient with frequent visits to ER due to I have chronic pain from autoimmune disease. Patient requesting pain medication. Upon patient's last visit, prior to leaving patient pulled fire alarm. Met with patient in room. Introduced role and reason for referral. Patient states lives home alone. Patient states follows with Dr. Howard, but has not seen physician recently as he is busy. Encouraged patient to follow up with primary care or pain management. During assessment patient would close eyes, moan and turn head away from this worker. Discussed discharge needs. Patient states, I don't know. Patient reports has been to [facility] in the past. Broached topic of returning, patient states I don't know what to do. Education and support provided. Patient did not wish to make decisions at this time. Updated nursing and Dr. Coulter. Plan: Anticipate discharge home, this worker to remain available for needs. Kinza Madera, COOK 3 PASTRY, RECOVERY ROOM NURSE
[2020-06-12 18:42] VITALS: BP 110/57; PULSE 105; RESP 18; O2SAT 95
--- NOTE | 2020-06-12 18:50 | ED.RN ---
ATTEMPTED TO CALL BROTHER NEFTALI TWO TIMES, NO RESPONSE. ATTEMPTED TO CALL NELI @ [phone], NO RESPONSE
--- NOTE | 2020-06-12 20:10 | CM.ED ---
SOCIAL WORK Met with patient again in room. Patient reporting unable to care for self and wanting to go to [facility]. Call to [facility], left message for admissions updating on referral and follow up tomorrow by SW. This worker to follow up with Adult Protective Services regarding EMS report and patient's status. Patient obtained paper pants from ER visit on Friday and is still dressed in them. Pants are covered in stool and urine. Patient unkempt. Patient reports unable to walk. Plan: Admit Kinza Madera MSW, SCHOOL OCCUPATIONAL THERAPIST
--- NOTE | 2020-06-12 20:18 | ED.RN ---
Patient at this time has been discharged home. Patient has no ride home and not able to make contact with anyone at this time. Spoke with patients brother who refuses to come and pick her up. Patient states she is not able to walk and requires assistance. Spoke with EMS who transported patient and they had to carry her down the stairs and assist her the cot. patient states she can not leave she is not able to care her for herself at home. patient noted to be in same cloths that she was discharged home on friday they are covered in stool and urine. patient hair looks uncleaned and not bathed recently. patient smells like urine. patient still has hospital wrist bands on from previous admissions. patient [facility]. patient states she was at [facility] over the summer.spoke with social services director at this time. will work on determine placement and plan of care for patient at this time.
[2020-06-12 20:53] LABS: Bacteria 0 SEEN /hpf (None Seen); Mucous, Urine 0 SEEN /hpf (<or=2+); Red Blood Cells-Urine 0 SEEN /hpf (0-5)
[2020-06-12 20:57] LABS: Color, Urine Yellow (Yellow); Glucose, Dipstick Normal (Normal); Ketone-Dipstick 50 mg/dl (Negative); Leukocyte Esterase-Dipstick 100 /ul (Negative); Nitrite-Dipstick Negative (Negative); Occult Blood-Urine Negative /ul (Negative); Protein-Dipstick Negative (Negative); Urine Bilirubin Dipstick Negative (Negative); Urine Clarity Sl. Cloudy (Clear); Urine Urobilinogen Normal (Normal)
[2020-06-12 21:00] VITALS: BP 135/68; PULSE 120; RESP 18; O2SAT 99
[2020-06-12 21:23] LABS: Squamous Epithelial Cells - UA 10-25 SEEN /hpf (5-10); Transitional Epithelial - Ur 0-5 SEEN /hpf (0-5); White Blood Cells 0-5 SEEN /hpf (0-5)
[2020-06-12 21:24] LABS: Hyaline Cast 0-5 SEEN /lpf (0-5); Renal Epithelial Cells 0-5 SEEN /hpf (0-5)
[2020-06-12 21:54] LABS: Hematocrit 36.5 % (37-47); Hemoglobin 11.1 g/dL (12.0-15.0); Mean Corp Hgb Conc 30.4 g/dL (32-36); Mean Corpuscular Hgb 28.2 pg (27.0-32.0); Mean Corpuscular Volume 92.6 fL (81-99); Mean Platelet Vol. 8.7 fl (6.2-12.0); POSITIVE COUNT YES; POSITIVE DIFFERENTIAL YES; POSITIVE MORPHOLOGY YES; Platelet Count 237 K/mm3 (150-450); RBC Distribution Width CV 15.5 % (11.6-14.6); RBC Distribution Width SD 51.2 fl (35.1-43.9); Red Blood Count 3.94 M/mm3 (4.2-5.4)
--- NOTE | 2020-06-12 22:34 | PCM.HP.STD ---
Problem List (1) Debility Status: Chronic (2) Severe protein-calorie malnutrition Status: Chronic (3) Tobacco use Status: Chronic (4) Alcoholism Status: Chronic (5) Hepatic steatosis Status: Chronic History of Present Illness Date of Admission: 06/12/20 Chief Complaint: Debility The patient is a 70 year old F with past medical history of chronic alcohol use disorder, chronic pain who has been seen the ED multiple times for similar complaints. She complains of pain in her right hip. Patient was recently discharged from the senior living and has been back home. She however is unable to care for herself at home. She admits to drinking vodka which she has been diluting. Recent x-ray of the left hip prosthesis shows acetabular component loosening on frog-leg view. Patient's left hip pain is chronic, she was recently admitted a month ago with E. coli acute cystitis and chronic pain syndrome. At that time she was discharged to [facility] facility. It is unclear if patient has rheumatoid arthritis or psoriatic arthritis. Health in the ED showed temperature of 97.1F, heart rate 121, blood pressure 105/27, respiratory rate 18, SPO2 is 100% on room air. WBC count is 16.0, Hb 11.1, platelet count 234. Sodium 131, potassium 4.6, chloride 92, bicarbonate 18, anion gap 31, BUN 28, creatinine 1.02, creatinine 0.39, glucose 107, calcium 7.2, total bilirubin is 0.5, AST 122, ALP 170, ALT 73, albumin 2.9. UA slightly cloudy, nitrite negative, leukocyte esterase 100, WBC count 0-5. Alcohol level 200 Past Medical History Past Medical History (Chronic Problems): Chronic Problems Debility (Chronic) Autoimmune pancreatitis (Chronic) Alcohol dependence (Chronic) Psoriatic arthritis (Chronic) Severe protein-calorie malnutrition (Chronic) HLD (hyperlipidemia) (Chronic) GERD (gastroesophageal reflux disease) (Chronic) Tobacco use (Chronic) Alcoholism (Chronic) Hepatic steatosis (Chronic) Alcoholic hepatitis (Chronic) Abnormal LFTs (Chronic) Alcoholic pancreatitis (Chronic) Alcohol abuse (Chronic) Hypertension (Chronic) Hypothyroidism (Chronic) Anxiety (Chronic) Fibromyalgia (Chronic) Dysphagia (Chronic) Rheumatoid arthritis (Chronic) never confirmed.....RA is negative.....tells me that she has psoriatic arthritis Psoriasis (Chronic) Chronic back pain (Chronic) osteoarthritis Delusional disorder (Chronic) Bipolar disorder (Chronic) Depression with H/o suicidal attempt (Chronic) Allergies nickel [Nickel] Allergy (Verified 06/12/20 17:52) Rash/autoimmune reactions prochlorperazine edisylate [From Compazine] Adverse Reaction (Verified 06/12/20 17:52) disoriented prochlorperazine maleate [From Compazine] Adverse Reaction (Verified 06/12/20 17:52) DISORIENTED CADMIUM Allergy (Uncoded 06/12/20 17:52) Rash AUTOIMMUNE RESPONSE Surgical History: tonsillectomy, - - Recent left hip fracture with repair. Psychiatric History: Anxiety, Bipolar, Depression, - - Delusional disorder. QUALITY AND RELIABILITY ENGINEER History: No pertinent QUALITY AND RELIABILITY ENGINEER history Lives: Alone Smoking Status: Current every day smoker Tobacco Use: Cigarettes Alcohol: Heavy Drugs: None - *Family History Maternal History Items: - - Reports autoimmune disease. Paternal History Items: - - Reports that her father from aspiration pneumonia at age 92. And her grandfather from pneumonia at age 32. She also notes that her father had exposure to nickel and had some diseases related but cannot give this information. Denied any history of heart disease, diabetes or cancer. Review of Systems Unable to obtain accurate/complete ROS d/t: Patient appears confused, groggy, unable to complete review of systems VTE Information - Inpt Only VTE Present on Admission: No VTE Pharm Prophylaxis ordered?: Yes - Physical Exam Vitals/I&O's: Vital Signs Temp Pulse Resp BP Pulse Ox 97.1 F L 120 H 18 135/68 H 99 06/12/20 17:47 06/12/20 21:00 06/12/20 21:00 06/12/20 21:00 06/12/20 21:00 Oxygen Delivery Method Room Air Weight: 64.9 kg Body Mass Index (BMI) 26.2 Finger Stick Blood Glucose 103 Intake and Output for Last 24 Hours 06/10/20 06/11/20 06/12/20 23:59 23:59 23:59 Intake Total 500 / 500 Balance 500 / 500 General: Alert, Cooperative, No apparent distress, Lethargic HEENT: Atraumatic, PERRLA, EOMI, Normocephalic Oral: Dry Mucosa Neck: Supple Lungs: Clear to auscultation, Normal air movement Cardiovascular: Regular rate, Regular Rhythm, Normal S1, Normal S2, No murmurs Abdomen: Bowel Sounds Present, Soft, Non Tender, Non-Distended, No Hepato-splenomegaly Extremities: No edema Skin: No rashes Musculoskeletal: No Tenderness to Palpation of Joints or Extremities Lymphatic: No Cervical, Supraclavicular, or Inguinal Adenopathy Neurological: Cranial nerves II-XII grossly intact Psych/Mental Status: Normal Affect, Appropriate Microbiology Past 72 Hours 06/12/20 20:28 Mucosa - Nose SARS-CoV-2 Antigen (Rapid) - Final Laboratory Results 06/12/20 20:10: Ethyl Alcohol 200.0 06/12/20 20:46: Urine Color Yellow, Urine Clarity Sl. Cloudy, Urine pH 5.0, Ur Specific [place] 1.020, Urine Protein Negative, Urine Glucose (UA) Normal, Urine Ketones 50 H, Urine Occult Blood Negative, Urine Nitrite Negative, Urine Bilirubin Negative, Urine Urobilinogen Normal, Ur Leukocyte Esterase 100 H, Urine RBC 0 SEEN, Urine WBC 0-5 SEEN, Ur Squamous Epith Cells 10-25 SEEN, Ur Transition Epith Cell 0-5 SEEN, Ur Renal Epithelial Cell 0-5 SEEN, Urine Bacteria 0 SEEN, Hyaline Casts 0-5 SEEN, Urine Mucus 0 SEEN 06/12/20 21:36: WBC Pending, RBC Pending, Hgb Pending, Hct Pending, MCV Pending, MCH Pending, MCHC Pending, RDW Std Deviation Pending, RDW Coeff of Jonathan Pending, Plt Count Pending, Neut % (Auto) Pending, Absolute Neuts (auto) Pending 06/12/20 21:36: Sodium Pending, Potassium Pending, Chloride Pending, Carbon Dioxide Pending, Anion Gap Pending, BUN Pending, Creatinine Pending, Est GFR (MDRD) Af Amer Pending, Est GFR (MDRD) Non-Af Pending, BUN/Creatinine Ratio Pending, Glucose Pending, Calcium Pending, Total Bilirubin Pending, AST Pending, ALT Pending, Alkaline Phosphatase Pending, Total Protein Pending, Albumin Pending Assessment/Plan 1. Acute alcoholic ketoacidosis, in a known alcoholic Admitting alcohol level is 200, bicarb is 8, anion gap is 31 Patient clinically looks stable We will continue on D5NS, BMP Q4H 2. Left hip pain, possible acute on chronic secondary to loosening of left acetabular component Patient was supposed to follow-up in the outpatient with orthopedics; referred from the ED We will consult orthopedic surgery 3. DARREL, prerenal secondary to dehydration Baseline creatinine of 0.39, admitted creatinine 1.02 We will continue on IV fluids, repeat blood work in a.m. 4. Elevated liver enzymes, likely secondary to alcoholic liver disease with coagulopathy INR is 12.5, APTT is 250, fatty liver seen on CT of the abdomen and pelvis in April 2020 Previous hepatitis profile was negative in 2018 Continue to trend labs 5. Chronic alcohol use disorder, patient recently discharged from senior living and come back to drinking alcohol Would monitor on the withdrawal protocol with Ativan 6. Debility, related to above, social work consulted from the ED, discharge planning for [facility] facility initiated 7. DVT PPx-INR supratherapeutic; repeat INR pending in a.m. OBSV E&M: 55526 Initial observation care L3
[2020-06-12 22:37] LABS: Lymphocyte 8 % (19-41); Monocyte 13 % (0-10); Neutrophil-Segmented 79 % (47-70); Platelet Estimate ADEQUATE (ADEQ); Red Cell Morphology NORM C+C NORMAL (NORM C&C); Total Cells Counted 100 (MANUAL DIFF)
[2020-06-12 22:38] LABS: Differential Indicated MANUAL DIFF
[2020-06-12 22:39] LABS: Absolute Lymphocyte Count 1.28 X10^3/uL (0.83-4.51); Absolute Neutrophil Count 12.6 X10^3/uL (2.0-7.7)
[2020-06-12 22:46] VITALS: BP 125/67; PULSE 115; RESP 18; TEMP 36.6; O2SAT 98
[2020-06-12 23:06] LABS: ALB/GLOB Ratio 0.8 RATIO (0.9-2.4); AST(SGOT) 122 U/L (15-37); Alanine Aminotransfer ALT/SGPT 73 U/L (13-56); Albumin, Serum 2.9 g/dL (3.2-5.0); Alkaline Phosphatase 170 U/L (45-117); Anion Gap 31 (5-15); BUN 28 mg/dL (7-18); BUN/Creat Ratio 27.5 RATIO (10-20); Calcium,Total 7.2 mg/dL (8.5-10.1); Chloride 92 mmol/L (98-107); Creatinine, Serum 1.02 mg/dL (0.55-1.02); EST Glomerular Filtration Rate 57 mL/min (>60); Est Glom Filt Rate - Afr Amer 68 mL/min (>60); Estimated Creatinine Clearance 39.43 ml/min; Globulin 3.6 g/dL (2.2-4.2); Glucose 103 mg/dL (74-106); Potassium 4.6 mmol/L (3.5-5.1); Protein, Total 6.5 g/dL (6.4-8.2); Sodium Level 131 mmol/L (136-145)
[2020-06-12 23:27] VITALS: BMI 20.3
[2020-06-12 23:29] VITALS: BMI 20.4
[2020-06-12 23:35] VITALS: BP 149/64; PULSE 121; RESP 18; TEMP 36.7; O2SAT 96
[2020-06-13] MEDS: Acetaminophen 325 MG Tablet 650 MG PO (00:20)
[2020-06-13] MEDS: oxyCODONE 5 MG Tablet PO (00:20)
[2020-06-13] MEDS: Dextrose 5%/0.9% NaCl 1,000 ML 150 ML IV ×3 (00:26→15:32)
[2020-06-13] MEDS: Ondansetron 4 MG/2 ML Vial IV (00:41)
[2020-06-13] MEDS: LORazepam 1 MG Tablet 2 MG PO ×4 (00:45→12:44)
[2020-06-13 00:53] LABS: Anion Gap 30 (5-15); BUN 25 mg/dL (7-18); BUN/Creat Ratio 33.1 RATIO (10-20); Calcium,Total 7.1 mg/dL (8.5-10.1); Chloride 92 mmol/L (98-107); Creatinine, Serum 0.76 mg/dL (0.55-1.02); EST Glomerular Filtration Rate 80 mL/min (>60); Est Glom Filt Rate - Afr Amer 97 mL/min (>60); Estimated Creatinine Clearance 45.92 ml/min; Glucose 105 mg/dL (74-106); Sodium Level 131 mmol/L (136-145)
[2020-06-13 01:16] LABS: International Normalized Ratio 12.5; Prothrombin Time (Protime)PT. 97.4 SECONDS (11.7-14.9)
[2020-06-13 01:29] LABS: Partial Thromboplast Time > 250.0 Seconds (24.1-36.2)
[2020-06-13] MEDS: Phytonadione (Vit K1) 5 MG TABLET PO (02:57)
[2020-06-13 04:31] VITALS: BP 115/57; PULSE 119; RESP 18; TEMP 37.1; O2SAT 97
--- NOTE | 2020-06-13 04:40 | PCS.PANDOC ---
PANDEMIC DOCUMENTATION INITIATED: Date: 06/12/20 Time: 4344
[2020-06-13 08:34] LABS: Absolute Lymphocyte Count 0.54 X10^3/uL (0.83-4.51); Absolute Neutrophil Count 7.3 X10^3/uL (2.0-7.7); Basophil# 0.01 X10^3/uL; Basophil% 0.1 % (0-1); Hematocrit 30.3 % (37-47); Hemoglobin 9.8 g/dL (12.0-15.0); Lymphocyte # 0.54 X10^3/ul (4.0); Lymphocyte % 6.3 % (19-41); Mean Corp Hgb Conc 32.3 g/dL (32-36); Mean Corpuscular Hgb 27.9 pg (27.0-32.0); Mean Corpuscular Volume 86.3 fL (81-99); Mean Platelet Vol. 8.9 fl (6.2-12.0); Monocyte# 0.66 X10^3/uL; Monocyte% 7.7 % (0-10); NRBC Flagged by Analyzer 0 % (0-5); Neutrophil # 7.27 X10^3/uL (2.7-7.7); Neutrophil % 84.8 % (47-70); POSITIVE DIFFERENTIAL YES; Platelet Count 143 K/mm3 (150-450); RBC Distribution Width SD 46.4 fl (35.1-43.9); Red Blood Count 3.51 M/mm3 (4.2-5.4); White Blood Count 8.6 K/mm3 (4.4-11.0)
[2020-06-13 08:40] VITALS: BP 125/69; PULSE 112; RESP 18; TEMP 37.3; O2SAT 100
[2020-06-13 08:42] LABS: International Normalized Ratio 1.2; Prothrombin Time (Protime)PT. 14.7 SECONDS (11.7-14.9)
[2020-06-13] MEDS: Thiamine Hydrochloride 100 MG Tablet PO (08:45)
[2020-06-13] MEDS: Folic Acid 1 MG Tablet PO (08:45)
[2020-06-13] MEDS: Menthol/Lanolin/Calamine/Znox 113 GM Tube 1 APPLIC TOPICAL ×2 (08:46→15:32)
[2020-06-13 08:47] LABS: Differential Indicated SCAN CRITERIA MET
[2020-06-13 09:00] LABS: ALB/GLOB Ratio 0.9 RATIO (0.9-2.4); AST(SGOT) 75 U/L (15-37); Alanine Aminotransfer ALT/SGPT 53 U/L (13-56); Albumin, Serum 2.6 g/dL (3.2-5.0); Alkaline Phosphatase 143 U/L (45-117); Anion Gap 13 (5-15); BUN 20 mg/dL (7-18); BUN/Creat Ratio 24.3 RATIO (10-20); Calcium,Total 7.1 mg/dL (8.5-10.1); Chloride 99 mmol/L (98-107); Creatinine, Serum 0.82 mg/dL (0.55-1.02); EST Glomerular Filtration Rate 72 mL/min (>60); Est Glom Filt Rate - Afr Amer 88 mL/min (>60); Estimated Creatinine Clearance 55.99 ml/min; Glucose 309 mg/dL (74-106); Potassium 3.4 mmol/L (3.5-5.1); Protein, Total 5.6 g/dL (6.4-8.2); Sodium Level 134 mmol/L (136-145)
[2020-06-13 09:07] LABS: Partial Thromboplast Time 26.7 Seconds (24.1-36.2)
[2020-06-13 11:13] LABS: Pathologist Review Reviewed
--- NOTE | 2020-06-13 11:15 | CASEMGMT ---
SOCIAL WORK Telephone call to Wenceslao with Adult Protective Services ([facility]) [phone]. Wenceslao updated on patients recent visits to ER, behaviors and physical appearance in ER, and current admission to [facility]. Per Wenceslao, met with patient at [facility] prior to discharge on 05/30/2020. Wenceslao reports patient was alert and oriented and understood risks of returning home. Wenceslao reports patient is over resources for Medicaid, and states if patient would start to pay off bills at [facility] she could spend down and re-apply for Medicaid. Informed Wenceslao that patient reported in ER that she wished to go to [facility]. Wenceslao states while patient was at [facility] patient was in agreement with returning home with home health care services, unsure if services were set up. Wenceslao reports able to come in and meet with patient again while admitted if needed. Jeanette VARGAS updated on the above. Kinza Madera MSW, LOCKER OPERATOR
--- NOTE | 2020-06-13 11:55 | CASEMGMT ---
Addendum entered by eJanette Wright 06/13/20 14:33: SW placed a call to Marie at [facility] and left message regarding referral. SW waiting for call back. Addendum entered by Jeanette Wright 06/13/20 12:27: PT/OT available. SW faxed referral to [facility]. Original Note: Social Work Note SW received referral for SNF placement - [facility]. SW reviewed charts, no PT/OT available yet. SW will fax referral to [facility] once PT/OT completed evaluations. Jeanette Wright BOAT CAMP OPERATOR, NOVELTY WORKER
[2020-06-13 12:00] VITALS: BP 123/62; PULSE 109; RESP 18; TEMP 37; O2SAT 97
[2020-06-13 12:45] LABS: Anion Gap 10 (5-15); BUN 16 mg/dL (7-18); BUN/Creat Ratio 18.2 RATIO (10-20); Calcium,Total 7.7 mg/dL (8.5-10.1); Chloride 100 mmol/L (98-107); Creatinine, Serum 0.88 mg/dL (0.55-1.02); EST Glomerular Filtration Rate 67 mL/min (>60); Est Glom Filt Rate - Afr Amer 81 mL/min (>60); Estimated Creatinine Clearance 52.17 ml/min; Glucose 290 mg/dL (74-106); Potassium 3.4 mmol/L (3.5-5.1); Sodium Level 135 mmol/L (136-145)
[2020-06-13 17:05] LABS: Anion Gap 7 (5-15); BUN 12 mg/dL (7-18); BUN/Creat Ratio 17.3 RATIO (10-20); Calcium,Total 7.4 mg/dL (8.5-10.1); Chloride 103 mmol/L (98-107); EST Glomerular Filtration Rate 88 mL/min (>60); Est Glom Filt Rate - Afr Amer 107 mL/min (>60); Estimated Creatinine Clearance 45.92 ml/min; Glucose 278 mg/dL (74-106); Potassium 3.3 mmol/L (3.5-5.1); Sodium Level 137 mmol/L (136-145)
[2020-06-13 17:20] VITALS: BP 117/53; PULSE 114; RESP 16; TEMP 36.9; O2SAT 100
[2020-06-13] MEDS: LORazepam 1 MG Tablet PO ×2 (17:26→23:40)
--- NOTE | 2020-06-13 18:31 | PCM.PROGNOTE ---
Subjective: Patient was seen and examined today, she was lethargic and somnolent, I was unable to carry on any conversation with her and she was unable to talk to me and answer simple questions. I have decided to take her off the tapering schedule of Ativan and place her on Ativan 1 mg 4 times a day with as needed IV Ativan as needed for alcohol withdrawal. - Physical Exam Vitals/I&O's: Vital Signs Temp Pulse Resp BP Pulse Ox 98.5 F 114 H 16 117/53 L 100 06/13/20 17:20 06/13/20 17:20 06/13/20 17:20 06/13/20 17:20 06/13/20 17:20 Oxygen Delivery Method Room Air Weight: 57.2 kg Body Mass Index (BMI) 20.3 Finger Stick Blood Glucose 103 Intake and Output for Last 24 Hours 06/11/20 06/12/20 06/13/20 23:59 23:59 23:59 Intake Total 500 / 500 2651 / 2651 Output Total 1500 / 1500 Balance 500 / 500 1151 / 1151 General: Lethargic, - - Patient was somnolent and unable to answer questions HEENT: Atraumatic, PERRLA, Normocephalic Oral: Moist Mucosa Neck: Supple, No JVD, Trachea Midline, Thyroid Normal Size and Texture Lungs: Clear to auscultation, Normal air movement, No rhonchi, No wheeze, No rales Cardiovascular: Regular rate, Regular Rhythm, Normal S1, Normal S2, No murmurs, PMI Normal, No rub noted, No Gallop Abdomen: Bowel Sounds Present, Soft, Non Tender, Non-Distended, No hernias noted Extremities: No clubbing, No cyanosis, No edema, Capillary Refill Less than 3 Seconds Skin: No rashes, No breakdown Musculoskeletal: No Tenderness to Palpation of Joints or Extremities Neurological: Cranial nerves II-XII grossly intact, Neuro grossly intact Psych/Mental Status: - - She was somnolent and unable to answer questions or carry on a conversation Microbiology Past 72 Hours 06/12/20 20:28 Mucosa - Nose SARS-CoV-2 Antigen (Rapid) - Final Laboratory Results 06/12/20 20:10: Ethyl Alcohol 200.0 06/12/20 20:46: Urine Color Yellow, Urine Clarity Sl. Cloudy, Urine pH 5.0, Ur Specific [place] 1.020, Urine Protein Negative, Urine Glucose (UA) Normal, Urine Ketones 50 H, Urine Occult Blood Negative, Urine Nitrite Negative, Urine Bilirubin Negative, Urine Urobilinogen Normal, Ur Leukocyte Esterase 100 H, Urine RBC 0 SEEN, Urine WBC 0-5 SEEN, Ur Squamous Epith Cells 10-25 SEEN, Ur Transition Epith Cell 0-5 SEEN, Ur Renal Epithelial Cell 0-5 SEEN, Urine Bacteria 0 SEEN, Hyaline Casts 0-5 SEEN, Urine Mucus 0 SEEN 06/12/20 21:36: WBC 16.0 H, RBC 3.94 L, Hgb 11.1 L, Hct 36.5 L, MCV 92.6, MCH 28.2, MCHC 30.4 L, RDW Std Deviation 51.2 H, RDW Coeff of Jonathan 15.5 H, Plt Count 237, MPV 8.7, Neut % (Auto) Not Reportable, Absolute Neuts (auto) 12.6 H, Absolute Lymphs (auto) 1.28, Total Counted 100, Neutrophils % (Manual) 79 H, Lymphocytes % (Manual) 8 L, Monocytes % (Manual) 13 H, Diff Path Review Reviewed, Platelet Estimate ADEQUATE, RBC Morphology NORM C+C 06/12/20 21:36: Sodium 131 L, Potassium 4.6, Chloride 92 L, Carbon Dioxide 8.0 L*, Anion Gap 31 H, BUN 28 H, Creatinine 1.02, Estim Creat Clear Calc 39.43, Est GFR (MDRD) Af Amer 68, Est GFR (MDRD) Non-Af 57 L, BUN/Creatinine Ratio 27.5 H, Glucose 103, Calcium 7.2 L, Total Bilirubin 0.50, AST 122 H, ALT 73 H, Alkaline Phosphatase 170 H, Total Protein 6.5, Albumin 2.9 L, Globulin 3.6, Albumin/Globulin Ratio 0.8 L 06/13/20 00:25: Sodium 131 L, Potassium 4.0, Chloride 92 L, Carbon Dioxide 9.0 L*, Anion Gap 30 H, BUN 25 H, Creatinine 0.76, Estim Creat Clear Calc 45.92, Est GFR (MDRD) Af Amer 97, Est GFR (MDRD) Non-Af 80, BUN/Creatinine Ratio 33.1 H, Glucose 105, Calcium 7.1 L 06/13/20 00:56: PT 97.4 H, INR 12.5 H*, APTT > 250.0 H* 06/13/20 08:20: WBC 8.6, RBC 3.51 L, Hgb 9.8 L, Hct 30.3 L, MCV 86.3 D, MCH 27.9, MCHC 32.3 D, RDW Std Deviation 46.4 H, RDW Coeff of Jonathan 15.0 H, Plt Count 143 L, MPV 8.9, Immature Gran % (Auto) 1.100 H, Neut % (Auto) 84.8 H, Lymph % (Auto) 6.3 L, [place] % (Auto) 7.7, Eos % (Auto) 0.0, Baso % (Auto) 0.1, Absolute Neuts (auto) 7.3, Absolute Lymphs (auto) 0.54 L, Nucleated RBC % 0, Differential Comment Not Reportable 06/13/20 08:20: Sodium 134 L, Potassium 3.4 L, Chloride 99, Carbon Dioxide 22.0, Anion Gap 13, BUN 20 H, Creatinine 0.82, Estim Creat Clear Calc 55.99, Est GFR (MDRD) Af Amer 88, Est GFR (MDRD) Non-Af 72, BUN/Creatinine Ratio 24.3 H, Glucose 309 H, Calcium 7.1 L, Total Bilirubin 0.80, AST 75 H, ALT 53, Alkaline Phosphatase 143 H, Total Protein 5.6 L, Albumin 2.6 L, Globulin 3.0, Albumin/Globulin Ratio 0.9 06/13/20 08:20: PT 14.7, INR 1.2 06/13/20 08:20: APTT 26.7 06/13/20 12:10: Sodium 135 L, Potassium 3.4 L, Chloride 100, Carbon Dioxide 25.0, Anion Gap 10, BUN 16, Creatinine 0.88, Estim Creat Clear Calc 52.17, Est GFR (MDRD) Af Amer 81, Est GFR (MDRD) Non-Af 67, BUN/Creatinine Ratio 18.2, Glucose 290 H, Calcium 7.7 L 06/13/20 16:08: Sodium 137, Potassium 3.3 L, Chloride 103, Carbon Dioxide 27.0, Anion Gap 7, BUN 12, Creatinine 0.70, Estim Creat Clear Calc 45.92, Est GFR (MDRD) Af Amer 107, Est GFR (MDRD) Non-Af 88, BUN/Creatinine Ratio 17.3, Glucose 278 H, Calcium 7.4 L Current Medications Acetaminophen (Acetaminophen 325 Mg Tablet) 650 mg PO Q6H PRN PRN PRN Reason: Pain Score 1-10/Temp > 100.7 F Last Admin: 06/13/20 00:20 Dose: 650 mg Documented by: Dextrose/Sodium Chloride (Dextrose 5%/0.9% Nacl) 1,000 mls @ 150 mls/hr IV .Q6H40M [facility] Last Admin: 06/13/20 15:32 Dose: 150 mls/hr Documented by: Lorazepam (Lorazepam 1 Mg Tablet) 1 mg PO Q6 [facility] Last Admin: 06/13/20 17:26 Dose: 1 mg Documented by: Lorazepam (Lorazepam 1 Mg Tablet) 2 mg PO Q2H PRN PRN; Protocol PRN Reason: CIWA score > 8 but <15 Lorazepam (Lorazepam 1 Mg Tablet) 2 mg PO UD PRN; Protocol PRN Reason: CIWA score >/=15. Lorazepam (Lorazepam 2 Mg/Ml Syringe) 2 mg IV Q2H PRN PRN; Protocol PRN Reason: CIWA score > 8 but <15 Lorazepam (Lorazepam 2 Mg/Ml Syringe) 2 mg IV UD PRN; Protocol PRN Reason: CIWA score >/=15. Thiamine HCl ([facility] Hydrochloride 100 Mg [facility]t) [facility] Last Admin: 06/13/20 08:45 Dose: 100 mg Documented by: Tramadol HCl (Tramadol 50 Mg Tablet) 100 mg PO Q6H PRN PRN PRN Reason: Pain Score 1-10 Medical Necessity - Tobacco Use Smoking Status: Current every day smoker Tobacco Use: Cigarettes Assessment/Plan #1 generalized debility-secondary to multiple medical problems including chronic pain and chronic alcohol abuse, PT and OT will see the patient, she will need at least short-term placement in a long-term facility #2 chronic alcohol abuse #3 alcohol intoxication #4 history of bipolar disorder #5 osteoarthritis #6 chronic pain syndrome #7 hypokalemia- patient was given potassium supplementation #8 elevated INR and PTT-this appears to be falsely elevated as the repeat PTT and INR were normal #9 hyperglycemia-etiology unclear, continue to monitor blood sugars, sliding scale insulin will be given if needed Inpatient E&M: 51832 Subs Hosp L2
[2020-06-13 20:44] VITALS: BP 127/50; PULSE 108; RESP 16; TEMP 37.2; O2SAT 98
[2020-06-13] MEDS: traMADol 50 MG Tablet 100 MG PO (20:56)
[2020-06-13] MEDS: Insulin Lispro 100 UNIT/ML INSULN.PEN SC (21:02)
[2020-06-13 21:06] LABS: Bedside Glucose 329 mg/dL (70-110)
[2020-06-14 03:22] VITALS: BP 127/59; PULSE 103; RESP 18; TEMP 37.2; O2SAT 96
[2020-06-14] MEDS: traMADol 50 MG Tablet 100 MG PO ×2 (03:29→17:49)
[2020-06-14] MEDS: LORazepam 1 MG Tablet PO ×4 (06:28→23:42)
[2020-06-14 06:40] LABS: Bedside Glucose 147 mg/dL (70-110)
[2020-06-14 07:05] LABS: Anion Gap 4 (5-15); BUN 7 mg/dL (7-18); BUN/Creat Ratio 18.8 RATIO (10-20); Calcium,Total 7.5 mg/dL (8.5-10.1); Chloride 105 mmol/L (98-107); Creatinine, Serum 0.37 mg/dL (0.55-1.02); EST Glomerular Filtration Rate 181 mL/min (>60); Est Glom Filt Rate - Afr Amer 219 mL/min (>60); Estimated Creatinine Clearance 45.76 ml/min; Glucose 130 mg/dL (74-106); Potassium 2.7 mmol/L (3.5-5.1); Sodium Level 140 mmol/L (136-145)
--- NOTE | 2020-06-14 07:29 | PCS.PANDOC ---
PANDEMIC DOCUMENTATION INITIATED: Date: 05/16/2020 Time:
[2020-06-14 09:06] VITALS: BP 135/75; PULSE 102; RESP 16; TEMP 36.8; O2SAT 96
[2020-06-14] MEDS: Thiamine Hydrochloride 100 MG Tablet PO (09:14)
[2020-06-14 09:52] VITALS: O2SAT 94
--- NOTE | 2020-06-14 10:03 | CASEMGMT ---
Addendum entered by Jeanette Wright 06/14/20 11:43: SW received message from Marie at [facility] stating pt has a bill that she hasn't paid yet and they are not able to accept pt unless pt pays the bill. SW in to speak with pt. Pt sitting in chair. Pt is alert and orientated. SW updated pt that [facility] is not able to accept unless she pays her bill. Pt states well I can't pay it. SW encouraged pt to at least start making payments on bill. SW informed pt that it was difficult to place pt last time due to her not paying her previous bills. Pt confirms she went to [facility], unable to remember how long she was at [facility]. SW asked pt about ETOH use. Pt didn't answer, states unable to remember if she was drinking when she came to ED. Per chart, pt's ETOH level was 200. Pt still agreeable to SNF. SW provided pt with list of SNF that accept pt's insurance. Pt unable to name a SNF that she would like to go to, gave this worker permission to call any/all SNF to see who is able to accept pt. SW informed pt that pt may have to go outside of [facility]. Pt states understanding. SW will start making referrals to SNF. Original Note: Social Work Note SW placed a call to Marie at [facility] and left message regarding referral. SW waiting for call back. Plan: SNF pending acceptance Jeanette Wright ACADEMIC GUIDANCE SPECIALIST, GRAPHITE GRINDER
[2020-06-14 11:46] LABS: Bedside Glucose 281 mg/dL (70-110)
[2020-06-14] MEDS: Insulin Lispro 100 UNIT/ML INSULN.PEN SC ×2 (11:50→16:16)
--- NOTE | 2020-06-14 13:35 | CASEMGMT ---
Addendum entered by Jeanette Wright 06/14/20 16:24: SW received message from Sarah at [facility] and both facilities also require month up front payment for self-pay pts. Addendum entered by Jeanette Wright 06/14/20 15:46: SAM also placed a call to Norma at [facility], they also require month up front for self-pay pts. Addendum entered by Jeanette Wright 06/14/20 15:35: [facility] requires month up front payment. [facility] is not accepting admissions at this time. SAM received update that [facility] doesn't require up month payment, they will bill pt. SAM faxed referral to both [facility] and [facility] as these are the only two SNF in [facility] that do not require month up front payment. SAM placed a call to Wenceslao with [facility]. As far as she knows, pt handles own finances. SAM updated Wenceslao that pt is not paying bills for SNF, pt has used all of her Medicare days, and pt will have to pay privately for all SNF at this time. Wenceslao states she is able to come talk to pt at [facility] if it is needed. Original Note: Social Work Note Pt has no Medicare days left, pt will be all private pay to go to SNF. A lot of SNF require month up front payment for self-pay pt. SW in to speak with pt. SAM updated pt that she has no Medicare days left, Medicare will not pay for pt to admit to SNF, so going to SNF will be all private pay. SAM informed pt that a lot of places require month up front payment, which can range from $5000 and up that pt would be required to pay on first day of admission. SAM asked pt if she can afford to pay this. Pt states no. SW informed pt that this worker will try and find a SNF that doesn't require up month payment. Pt states understanding. SNF that do require up month payment: [facility] Elizabeth Hernandez (and they have no beds available at this time). [place] [place] [facility] SAM called Sarah with [facility] and left message regarding self-pay pt's. SW also placed a call to [facility] Woodard and left message for Meghna regarding self-pay. SAM placed a call to Jillian at [facility] and left message asking if they require month up front for self-pay. SAM placed a call to Tiffany at [facility] and left message asking if they require month up front for self-pay. SAM placed a call to Carline at [facility], [facility] doesn't require up month payment. SW to continue to call SNFs. Jeanette Wright ASSIGNMENT OFFICER, MEAL COOKER
[2020-06-14 15:00] VITALS: BP 119/64; PULSE 97; RESP 18; TEMP 36.7; O2SAT 96
[2020-06-14 17:05] LABS: Bedside Glucose 210 mg/dL (70-110)
--- NOTE | 2020-06-14 19:12 | PCM.PROGNOTE ---
Subjective: Patient was seen and examined today, she is more alert, she does not complain of any shortness of breath, fever, or chills. She is not complaining of any anxiety. Objective: General: - - Patient was alert, she was in no distress HEENT: Atraumatic, PERRLA, Normocephalic Oral: Moist Mucosa Neck: Supple, No JVD, Trachea Midline, Thyroid Normal Size and Texture Lungs: Clear to auscultation, Normal air movement, No rhonchi, No wheeze, No rales Cardiovascular: Regular rate, Regular Rhythm, Normal S1, Normal S2, No murmurs, PMI Normal, No rub noted, No Gallop Abdomen: Bowel Sounds Present, Soft, Non Tender, Non-Distended, No hernias noted Extremities: No clubbing, No cyanosis, No edema, Capillary Refill Less than 3 Seconds Skin: No rashes, No breakdown Musculoskeletal: No Tenderness to Palpation of Joints or Extremities Neurological: Cranial nerves II-XII grossly intact, Neuro grossly intact Psych/Mental Status: - -Patient was alert and responded appropriately to questions - Physical Exam Vitals/I&O's: Vital Signs Temp Pulse Resp BP Pulse Ox 98.0 F 97 18 119/64 96 06/14/20 15:00 06/14/20 15:00 06/14/20 15:00 06/14/20 15:00 06/14/20 15:00 Oxygen Delivery Method Room Air Weight: 57 kg Body Mass Index (BMI) 20.3 Finger Stick Blood Glucose 103 Intake and Output for Last 24 Hours 06/12/20 06/13/20 06/14/20 23:59 23:59 23:59 Intake Total 500 / 500 3483.5 / 3483.5 450 / 450 Output Total 1900 / 1900 850 / 850 Balance 500 / 500 1583.5 / 1583.5 -400 / -400 Microbiology Past 72 Hours 06/12/20 20:28 Mucosa - Nose SARS-CoV-2 Antigen (Rapid) - Final Laboratory Results 06/13/20 21:00: POC Glucose 329 H 06/14/20 06:18: Sodium 140, Potassium 2.7 L*, Chloride 105, Carbon Dioxide 31.0, Anion Gap 4 L, BUN 7, Creatinine 0.37 L, Estim Creat Clear Calc 45.76, Est GFR (MDRD) Af Amer 219, Est GFR (MDRD) Non-Af 181, BUN/Creatinine Ratio 18.8, Glucose 130 H, Calcium 7.5 L 06/14/20 06:29: POC Glucose 147 H 06/14/20 11:40: POC Glucose 281 H 06/14/20 16:14: POC Glucose 210 H Current Medications Acetaminophen (Acetaminophen 325 Mg Tablet) 650 mg PO Q6H PRN PRN PRN Reason: Pain Score 1-10/Temp > 100.7 F Last Admin: 06/13/20 00:20 Dose: 650 mg Documented by: Insulin Human Lispro (Insulin Lispro 100 Unit/Ml Insuln.Pen) 0 unit [facility]; Protocol Last Admin: 06/14/20 16:16 Dose: 4 u Documented by: Lorazepam (Lorazepam 1 Mg Tablet) 1 mg PO Q6 [facility] Last Admin: 06/14/20 17:49 Dose: 1 mg Documented by: Lorazepam (Lorazepam 1 Mg Tablet) 2 mg PO Q2H PRN PRN; Protocol PRN Reason: CIWA score > 8 but <15 Lorazepam (Lorazepam 1 Mg Tablet) 2 mg PO UD PRN; Protocol PRN Reason: CIWA score >/=15. Lorazepam (Lorazepam 2 Mg/Ml Syringe) 2 mg IV Q2H PRN PRN; Protocol PRN Reason: CIWA score > 8 but <15 Lorazepam (Lorazepam 2 Mg/Ml Syringe) 2 mg IV UD PRN; Protocol PRN Reason: CIWA score >/=15. Thiamine HCl (Thiamine Hydrochloride 100 Mg Tablet) [facility] Last Admin: 06/14/20 09:14 Dose: 100 mg Documented by: Tramadol HCl (Tramadol 50 Mg Tablet) 100 mg PO Q6H PRN PRN PRN Reason: Pain Score 1-10 Last Admin: 06/14/20 17:49 Dose: 100 mg Documented by: Medical Necessity - Tobacco Use Smoking Status: Current every day smoker Tobacco Use: Cigarettes Assessment/Plan #1 generalized debility-secondary to multiple medical problems including chronic pain and chronic alcohol abuse, PT and OT will see the patient, she will need at least short-term placement in a snf facility #2 chronic alcohol abuse #3 alcohol intoxication #4 history of bipolar disorder #5 osteoarthritis #6 chronic pain syndrome #7 hypokalemia- patient was given potassium supplementation, BMP will be rechecked tomorrow #8 elevated INR and PTT-this appears to be falsely elevated as the repeat PTT and INR were normal #9 hyperglycemia-etiology unclear, continue to monitor blood sugars, sliding scale insulin will be given if needed Inpatient E&M: 84968 Subs Hosp L2
[2020-06-14 21:28] VITALS: BP 128/72; PULSE 102; RESP 16; TEMP 37.1; O2SAT 97
[2020-06-14 21:36] LABS: Bedside Glucose 142 mg/dL (70-110)
[2020-06-15 04:00] VITALS: BP 141/87; PULSE 101; RESP 18; TEMP 37.7; O2SAT 96
[2020-06-15] MEDS: LORazepam 1 MG Tablet PO ×2 (05:09→22:56)
[2020-06-15 06:36] LABS: Anion Gap 5 (5-15); BUN 5 mg/dL (7-18); BUN/Creat Ratio 14.9 RATIO (10-20); Calcium,Total 7.8 mg/dL (8.5-10.1); Chloride 104 mmol/L (98-107); Creatinine, Serum 0.34 mg/dL (0.55-1.02); EST Glomerular Filtration Rate 204 mL/min (>60); Est Glom Filt Rate - Afr Amer 247 mL/min (>60); Glucose 136 mg/dL (74-106); Potassium 3.6 mmol/L (3.5-5.1); Sodium Level 139 mmol/L (136-145)
[2020-06-15] MEDS: Insulin Lispro 100 UNIT/ML INSULN.PEN SC ×4 (06:43→22:56)
[2020-06-15 06:51] LABS: Bedside Glucose 155 mg/dL (70-110)
[2020-06-15 08:05] VITALS: PULSE 111; RESP 20; O2SAT 95
[2020-06-15] MEDS: Thiamine Hydrochloride 100 MG Tablet PO (08:08)
[2020-06-15] MEDS: traMADol 50 MG Tablet 100 MG PO ×2 (08:08→18:49)
--- NOTE | 2020-06-15 09:43 | CASEMGMT ---
Addendum entered by Jeanette Wright 06/15/20 10:52: SW in to speak with pt. Pt appears more alert and orientated today. SW updated pt that this worker has tried 17 SNF and only two so far don't require a month up front payment for self-pay. SW informed pt that one of them are not able to accept her and this worker is waiting for a response back from the other SNF. SW asked pt how much she has in finances and pt states I don't know. SW asked pt if she checks her account statements and pt refused to answer. Pt states I need to go home. SW asked pt how she is going to manage at home since it is taking two people to get her up and pt states I will just stand. SW informed pt that she hasn't been able to stand by herself while she has been at [facility] and that going home is not the safest option for pt at this time. Pt again states I need to go home. SW asked pt if she wanted any HHC and pt denied. SW spoke with pt regarding Palliative Care and explained program and explained that they may be able to help manage her chronic pain symptoms. Pt states those type of programs are hard to get out of once you're in them. SW informed pt that she is able to cancel Palliative program at any time and that this worker could make referral to determine if they can assist her and pt denied. SW spoke with pt regarding ETOH use. SW asked pt if she is going to go home and drink and pt denied, stating she wants to stop drinking. SW informed pt that quitting cold turkey drinking can be very difficult and offered to provide pt with counseling resources and pt denied. SW asked pt if she currently has ETOH in the home and pt confirms she does. Pt states she will be able to stop drinking on her own. Pt denied any Mental Health History, denied any history of anxiety or depression. Pt state she has some anxiety right now, unable to tell this worker what she is anxious about. Pt denied any history of depression, denied any current depression. Pt denied any history of suicidal thoughts/plans/ideations. Pt denied any current suicidal thoughts/plans/ideations. Original Note: Social Work Note SW placed a call to Jillian at [facility] and left message regarding referral. SW received message from Carline at [facility] stating they are not able to accept pt. Jeanette Wright RAG INSPECTOR, CASCADE OPERATOR
[2020-06-15 09:57] VITALS: BP 140/79; PULSE 102; RESP 18; TEMP 36.9; O2SAT 96
[2020-06-15 11:41] LABS: Bedside Glucose 244 mg/dL (70-110)
--- NOTE | 2020-06-15 13:11 | CASEMGMT ---
Addendum entered by Jeanette Wright 06/15/20 16:55: SW updated physician that [facility] will be at [facility] tomorrow to speak with pt. RN and charge nurse updated. It should be noted that this worker also mentioned to Wenceslao with [facility] that physician did mention emergency guardianship for pt. Wenceslao with [facility] to come in to speak with pt tomorrow and will provide update to this worker. Addendum entered by Jeanette Wright 06/15/20 14:47: SAM received call from Wenceslao at [facility] and Wenceslao's admitting supervisor Randi on phone call as well. Wenceslao states that for a conservatorship the pt is legally competent and pt herself has to go to Prob[address] Court and ask for a personal financial planner. SAM informed Wenceslao that pt has refused any assistance in the home (HHC, Palliative, ETOH resources). Wenceslao states she is able to come to [facility] tomorrow at 10:00am to meet with pt herself to discuss options. Original Note: Social Work Note SAM placed a call to Wenceslao at [facility] and left message regarding pt. SAM updated Wenceslao that pt is now stating she is returning home because she is not able to afford private pay at [facility]. Per PT/OT, pt is still assist of two. Pt lives alone, unsafe for pt to return home at this time. SAM asked Wenceslao about conservatorship for pt and if that is possible. SAM waiting for call back from Wenceslao at [facility]. Jeanette Wright AIRPORT MANAGER, DAMASCENER
[2020-06-15 15:23] VITALS: BP 132/83; PULSE 118; RESP 18; TEMP 37.8; O2SAT 96
[2020-06-15] MEDS: Acetaminophen 325 MG Tablet 650 MG PO ×2 (15:56→22:55)
[2020-06-15] MEDS: 0.9% Normal Saline 1,000 ML 100 ML IV (15:56)
[2020-06-15 16:51] LABS: Bedside Glucose 148 mg/dL (70-110)
[2020-06-15 18:22] VITALS: BP 136/71; PULSE 100; RESP 18; TEMP 37.1; O2SAT 97
--- NOTE | 2020-06-15 19:09 | PN_ITS ---
Subjective: Patient was seen and examined today, she inquired as to her discharge home, I told her she was not stable at this time to be discharged home. I feel that the patient is at risk if she returns home and resumes drinking, there is no one at her home to help her. Adult protection services is going to come in tomorrow and evaluate the patient. I have decided to reduce the patient's programmed benzodiazepine to see if this will improve her function. Objective: General: - - Patient was alert, she was in no distress, she was slow to respond to questions HEENT: Atraumatic, PERRLA, Normocephalic Oral: Moist Mucosa Neck: Supple, No JVD, Trachea Midline, Thyroid Normal Size and Texture Lungs: Clear to auscultation, Normal air movement, No rhonchi, No wheeze, No rales Cardiovascular: Regular rate, Regular Rhythm, Normal S1, Normal S2, No murmurs, PMI Normal, No rub noted, No Gallop Abdomen: Bowel Sounds Present, Soft, Non Tender, Non-Distended, No hernias noted Extremities: No clubbing, No cyanosis, No edema, Capillary Refill Less than 3 Seconds Skin: No rashes, No breakdown Musculoskeletal: No Tenderness to Palpation of Joints or Extremities Neurological: Cranial nerves II-XII grossly intact, Neuro grossly intact Psych/Mental Status: - -Patient was alert, she was slow to respond to questions, flat affect - Physical Exam Vitals/I&O's: Vital Signs Temp Pulse Resp BP Pulse Ox 98.8 F 100 18 136/71 H 97 06/15/20 18:22 06/15/20 18:22 06/15/20 18:22 06/15/20 18:22 06/15/20 18:22 Oxygen Delivery Method Room Air Weight: 57.8 kg Body Mass Index (BMI) 20.3 Finger Stick Blood Glucose 103 Intake and Output for Last 24 Hours 06/13/20 06/14/20 06/15/20 23:59 23:59 23:59 Intake Total 3483.5 / 3483.5 600 / 600 100 / 100 Output Total 1900 / 1900 850 / 850 900 / 900 Balance 1583.5 / 1583.5 -250 / -250 -800 / -800 Microbiology Past 72 Hours 06/12/20 20:28 Mucosa - Nose SARS-CoV-2 Antigen (Rapid) - Final Laboratory Results 06/14/20 21:30: POC Glucose 142 H 06/15/20 05:10: Sodium 139, Potassium 3.6, Chloride 104, Carbon Dioxide 30.0, Anion Gap 5, BUN 5 L, Creatinine 0.34 L, Estim Creat Clear Calc 46.40, Est GFR (MDRD) Af Amer 247, Est GFR (MDRD) Non-Af 204, BUN/Creatinine Ratio 14.9, Glucose 136 H, Calcium 7.8 L 06/15/20 06:41: POC Glucose 155 H 06/15/20 11:28: POC Glucose 244 H 06/15/20 16:38: POC Glucose 148 H Current Medications Acetaminophen (Acetaminophen 325 Mg Tablet) 650 mg PO Q6H PRN PRN PRN Reason: Pain Score 1-10/Temp > 100.7 F Last Admin: 06/15/20 15:56 Dose: 650 mg Documented by: Sodium Chloride () 1,000 mls @ 100 mls/hr IV .Q10H [facility] Last Admin: 06/15/20 15:56 Dose: 100 mls/hr Documented by: Insulin Human Lispro (Insulin Lispro 100 Unit/Ml Insuln.Pen) 0 unit SC [facility]; Protocol Last Admin: 06/15/20 16:41 Dose: 2 u Documented by: Lorazepam (Lorazepam 1 Mg Tablet) 2 mg PO Q2H PRN PRN; Protocol PRN Reason: CIWA score > 8 but <15 Lorazepam (Lorazepam 1 Mg Tablet) 2 mg PO UD PRN; Protocol PRN Reason: CIWA score >/=15. Lorazepam (Lorazepam 2 Mg/Ml Syringe) 2 mg IV Q2H PRN PRN; Protocol PRN Reason: CIWA score > 8 but <15 Lorazepam (Lorazepam 2 Mg/Ml Syringe) 2 mg IV UD PRN; Protocol PRN Reason: CIWA score >/=15. Lorazepam (Lorazepam 1 Mg Tablet) 1 mg PO Q12 [facility] Sodium Chloride (0.9% Saline Lock 10 Ml Syringe) 10 - 40 ml IV UD PRN PRN Reason: SALINE FLUSH Thiamine HCl (Thiamine Hydrochloride 100 Mg Tablet) 100 mg PO DAILYCM [facility] Last Admin: 06/15/20 08:08 Dose: 100 mg Documented by: Tramadol HCl (Tramadol 50 Mg Tablet) 100 mg PO Q6H PRN PRN PRN Reason: Pain Score 1-10 Last Admin: 06/15/20 18:49 Dose: 100 mg Documented by: Medical Necessity - Tobacco Use Smoking Status: Current every day smoker Tobacco Use: Cigarettes Assessment/Plan #1 generalized debility-secondary to multiple medical problems including chronic pain and chronic alcohol abuse, PT and OT will see the patient, at this time she is declining placement in a fci facility, Adult Protective Services will see the patient tomorrow morning and do an evaluation. #2 chronic alcohol abuse #3 alcohol intoxication #4 history of bipolar disorder #5 osteoarthritis #6 chronic pain syndrome #7 hypokalemia- patient was given potassium supplementation, BMP was normal today #8 elevated INR and PTT-this appears to be falsely elevated as the repeat PTT and INR were normal #9 hyperglycemia-etiology unclear, continue to monitor blood sugars, sliding scale insulin will be given if needed Inpatient E&M: 89308 Subs Hosp L2
[2020-06-15 22:42] VITALS: BP 166/85; PULSE 98; RESP 18; TEMP 36.8; O2SAT 97
[2020-06-15 23:05] LABS: Bedside Glucose 154 mg/dL (70-110)
[2020-06-15 23:06] LABS: Color, Urine Straw (Yellow); Glucose, Dipstick Normal (Normal); Ketone-Dipstick Negative (Negative); Leukocyte Esterase-Dipstick 100 /ul (Negative); Nitrite-Dipstick Negative (Negative); Occult Blood-Urine Negative /ul (Negative); Protein-Dipstick Negative (Negative); Specific Gravity, Urine 1.015 (1.002-1.030); Urine Bilirubin Dipstick Negative (Negative); Urine Clarity Clear (Clear); Urine Urobilinogen Normal (Normal)
[2020-06-16] MEDS: 0.9% Normal Saline 1,000 ML 100 ML IV ×2 (01:38→11:21)
[2020-06-16 03:56] VITALS: BP 135/72; PULSE 97; RESP 18; TEMP 36.6; O2SAT 97
[2020-06-16] MEDS: traMADol 50 MG Tablet 100 MG PO ×2 (03:58→09:50)
[2020-06-16 08:33] LABS: Bedside Glucose 149 mg/dL (70-110)
[2020-06-16 09:40] VITALS: BP 142/74; PULSE 104; RESP 18; TEMP 36.7; O2SAT 95
[2020-06-16] MEDS: LORazepam 1 MG Tablet PO (09:44)
[2020-06-16] MEDS: Thiamine Hydrochloride 100 MG Tablet PO (09:44)
--- NOTE | 2020-06-16 11:04 | CASEMGMT ---
Social Work Note Wenceslao from APS at [facility] and spoke with pt. SAM then spoke with Wenceslao. Wenceslao states she gave pt two options. 1. Pt pays her bill to [facility] and first month payment and goes to [facility]. 2. Pt goes to [address] to assign financial reporting advisor. Wenceslao states pt requested 24 hours to decide what to do. Wenceslao states she also mentioned Guardianship to pt and pt is slightly aware of guardianship. Wenceslao states she also got pt's friend Valentin number [phone]. SAM informed Wenceslao that this worker will check with pt later this afternoon regarding her decision on the two options and let her know. Wenceslao provided her cell phone [phone]. Physician present during conversation with APS, aware of pt's choices. Physician states pt is medically ready for discharge and if pt is able to ambulate with min assist/walker, pt will likely discharge home today. Wenceslao aware. Wenceslao asked to be updated. SAM will speak with pt later today to get pt's decision, then will update Wenceslao with APS. Jeanette Wright PRESS TECHNICIAN, CLOCKMAKER
[2020-06-16] MEDS: Insulin Lispro 100 UNIT/ML INSULN.PEN SC (11:21)
[2020-06-16 11:30] LABS: Bedside Glucose 272 mg/dL (70-110)
--- NOTE | 2020-06-16 14:05 | CASEMGMT ---
Social Work Note SAM in to speak with pt. Pt states she remembers talking to Wenceslao with APS earlier, remembers the options that were presented to her. Pt states I need to go home. SW informed pt that going home is not a safe option and pt should consider paying bill for [facility] and going to SW. Pt states I can't afford it. SW asked pt if she felt safe going home. Pt states No, I may fall, I don't even know how I am going to get up the stairs. SW informed pt that those are the same concerns that staff has and why it is the recommendation for her to go to SNF. Pt states I have no other choices. SW informed pt that she has been presented different choices and that pt does have choices. Pt can admit to SNF but pt will need to pay [facility] bill and a month up front regardless of the SNF she goes to. Pt continues to say she cannot afford to pay privately at SNF. Pt states I need to go home. SAM asked pt if she would be agreeable to [facility] and pt denied. Jeanette Wright ADULT REMEDIAL EDUCATION INSTRUCTOR, PITCH GATHERER
[2020-06-16 15:00] VITALS: BP 163/81; PULSE 100; RESP 16; TEMP 37.1; O2SAT 97
--- NOTE | 2020-06-16 15:26 | DCINST_ITS ---
- Discharge Diagnoses Current Active Problems: Current Active and Chronic Problems Debility (Chronic) Severe protein-calorie malnutrition (Chronic) Tobacco use (Chronic) Alcoholism (Chronic) Hepatic steatosis (Chronic) You will use the following diet at home:: No restrictions Your food should be the consistency of: Regular Your liquids should be the consistency of: Regular/Thin Discharge Activity: Return to Normal Activity Weight Bearing Status: Full weight bearing Instructions: ED Chronic Pain Additional Instructions: NO ALCOHOL INTAKE Allergies/Adverse Reactions: Allergies nickel [Nickel] Allergy (Verified 06/12/20 17:52) Rash/autoimmune reactions prochlorperazine edisylate [From Compazine] Adverse Reaction (Verified 06/12/20 17:52) disoriented prochlorperazine maleate [From Compazine] Adverse Reaction (Verified 06/12/20 17:52) DISORIENTED CADMIUM Allergy (Uncoded 06/12/20 17:52) Rash AUTOIMMUNE RESPONSE Medications to take at Discharge Ciprofloxacin [Cipro] 500 mg PO BID #14 tab 06/16/20 The following prescriptions were given: Ciprofloxacin [Cipro] 500 mg PO BID #14 tab Prescription Printed Primary Care Physician: Brant Howard Chi, MD [Primary Care Provider] - Please follow up with your Primary Care Physician in: [place] 7-10 DAYS Test Results: Test results from this visit will be discussed in further detail at your follow- up appointment, if applicable.
--- NOTE | 2020-06-16 15:30 | CASEMGMT ---
Social Work Note SAM discussed case with Anitha STRICKLAND. SAM back in to speak with pt. SW asked pt what her goals are and where does she see herself. Pt states well I would like to be able to walk and to move my arms without them hurting. SW informed pt that those are good goals to have and informed pt that if she goes to a SNF pt would get therapy daily which would help her to achieve her goals. Pt again states I can't afford it. SW asked pt if she could call her bank right now to get update on her finances and pt didn't want to call her bank. Pt asked when can I go home. Pt states she will need a ride home and gave this worker permission to call Valentin. ([phone]). SW informed pt that this worker can complete medicaid and potentially get [facility] to [facility] under pending medicaid but informed pt that unless she dwindles down her finances, she would just continue to get bills for SNF as she doesn't qualify for Medicaid. Pt again states she is going home. SAM placed a call to Wenceslao at [facility] and updated her. Wenceslao states she will call her customer service supervisor and then call this worker back. SAM received call from Wenceslao stating to discharge pt home as there is nothing they can do. [facility] agrees that pt is own person, able to make own decisions. Wenceslao states physician would do expert evaluation. Wenceslao states she may reach out to Prosecutors Office as well and see if there is anything that can be done in pt's case. SAM updated physician on above information. Physician states pt will discharge home today. SAM placed a call to Valentin. Valentin states he can be at [facility] in 10 minutes to transport pt home. SAM updated physician, RN and pt. Plan: Home. Jeanette Wright MICROBIOLOGY ANALYST, IRON MINER
--- NOTE | 2020-06-18 08:47 | DS.PCM_ITS ---
Discharge Date and Diagnosis Date of Admission: 06/12/20 Date of Discharge: 06/16/20 - Primary Discharge Diagnosis Acute Problems: #1 generalized debility-secondary to multiple medical problems including chronic pain and chronic alcohol abuse as well as bipolar disorder #2 chronic alcohol abuse #3 alcohol intoxication #4 bipolar disorder #5 osteoarthritis #6 chronic pain syndrome #7 hypokalemia #8 Falsely elevated INR and PTT #9 hyperglycemia-etiology unclear - Secondary Discharge Diagnosis Chronic Problems: Chronic Problems Debility (Chronic) Autoimmune pancreatitis (Chronic) Alcohol dependence (Chronic) Psoriatic arthritis (Chronic) Severe protein-calorie malnutrition (Chronic) HLD (hyperlipidemia) (Chronic) GERD (gastroesophageal reflux disease) (Chronic) Tobacco use (Chronic) Alcoholism (Chronic) Hepatic steatosis (Chronic) Alcoholic hepatitis (Chronic) Abnormal LFTs (Chronic) Alcoholic pancreatitis (Chronic) Alcohol abuse (Chronic) Hypertension (Chronic) Hypothyroidism (Chronic) Anxiety (Chronic) Fibromyalgia (Chronic) Dysphagia (Chronic) Rheumatoid arthritis (Chronic) never confirmed.....RA is negative.....tells me that she has psoriatic arthritis Psoriasis (Chronic) Chronic back pain (Chronic) osteoarthritis Delusional disorder (Chronic) Bipolar disorder (Chronic) Depression with H/o suicidal attempt (Chronic) Hospital Course and Treatment Operations: None Procedures: None Summary of Care Provided: The patient is a 70 year old F who was seen in the emergency room at [facility] with a chief complaint of generalized weakness. She also complained of chronic pain. She had been seen multiple times in the last 2 weeks for similar complaints. Patient lives at home alone. When she was not given pain medication in the emergency room, she became angry, left the emergency department, broke some equipment and pulled the fire alarm. Patient returned to the emergency room and spoke with case management social worker, she stated she was unable to take care of her self at home and requested transfer back to a nursing facility. Attempts were made to place the patient from the ER but these were unsuccessful. Labs were obtained which showed an elevated white blood cell count, INR and PTT were also elevated but the reason for this elevation was not well understood. Patient's bicarb was low at 8, liver enzymes were elevated with an AST of 122, ALT of 73, alkaline phosphatase of 170. Ethyl alcohol was elevated at 200, urinalysis was unremarkable for UTI. Patient was admitted to [place] [id number], she was seen in consultation by PT and OT, multiple conversations were carried out with the patient about returning to a custodial facility, due to unpaid bills at several nursing facilities, case management social worker had a difficult time locating a facility that would accept the patient. In the meantime, patient decided that she did not want to go to custodial facility and it was felt that her only choice was to return home. On 06/16/2020, patient was felt to be stable for discharge home:General: - - Patient was alert, she was in no distress, she was slow to respond to questions HEENT: Atraumatic, PERRLA, Normocephalic Oral: Moist Mucosa Neck: Supple, No JVD, Trachea Midline, Thyroid Normal Size and Texture Lungs: Clear to auscultation, Normal air movement, No rhonchi, No wheeze, No rales Cardiovascular: Regular rate, Regular Rhythm, Normal S1, Normal S2, No murmurs, PMI Normal, No rub noted, No Gallop Abdomen: Bowel Sounds Present, Soft, Non Tender, Non-Distended, No hernias noted Extremities: No clubbing, No cyanosis, No edema, Capillary Refill Less than 3 Seconds Skin: No rashes, No breakdown Musculoskeletal: No Tenderness to Palpation of Joints or Extremities Neurological: Cranial nerves II-XII grossly intact, Neuro grossly intact Psych/Mental Status: - -Patient was alert, she was slow to respond to questions, flat affect - Physical Exam Vitals/I&O's: Vital Signs Temp Pulse Resp BP Pulse Ox 98.7 F 100 16 163/81 H 97 06/16/20 15:00 06/16/20 15:00 06/16/20 15:00 06/16/20 15:00 06/16/20 15:00 Oxygen Delivery Method Room Air Weight: 58.196 kg Body Mass Index (BMI) 20.3 Finger Stick Blood Glucose 103 Intake and Output for Last 24 Hours 06/16/20 06/17/20 06/18/20 23:59 23:59 23:59 Intake Total 2906.67 / 2906.67 Output Total 850 / 850 Balance 2056.67 / 2056.67 Microbiology Past 72 Hours 06/15/20 22:43 Urine, Clean Catch Urine Culture - Final Escherichia coli Discharge Activity: Return to Normal Activity Weight Bearing Status: Full weight bearing Home Medications: Medications to take at Discharge Ciprofloxacin [Cipro] 500 mg PO BID #14 tab 06/16/20 Following Prescriptions Were Given to Patient: Ciprofloxacin [Cipro] 500 mg PO BID #14 tab Prescription Printed Primary Care Physician: Brant Howard Chi, MD [Primary Care Provider] - Please follow up with your Primary Care Physician in: [place] 7-10 DAYS Patient Instructions: ED Chronic Pain Disposition: Home Minutes spent on discharge:: 32 Patient Condition:: Stable Medical Necessity - Tobacco Use Smoking Status: Current every day smoker Tobacco Use: Cigarettes Meaningful Use Info Meaningful Use Diagnoses (Choose all that apply): None applicable Inpatient E&M: 68241 Disch Hosp
--- NOTE | 2020-06-19 14:45 | CASEMGMT ---
LEYDA CM DC PHONE CALL DC DATE: 06/16/20 DC DISPOSITION: Home DC DIAGNOSIS: Weakness, ETOH LACE/STRATA: 21/09 Call deferred. SW worked with patient and APS referral made. Tyree UMANZORN RN ACM
== END 2020-06-16 15:48 | disposition home or self-care (01) | DRG 92 ==
LOC: ED 18:47 → MS3 06-13 06:53
PROVIDERS: Admitting Provider Internal Medicine; Emergency Provider Emergency Medicine; PCP Family Medicine Geriatric Medicine; Visit Provider Internal Medicine
DX: G89.4 Chronic pain syndrome (principal); K86.1 Other chronic pancreatitis; E87.2 Acidosis; T84.031A Mechanical loosening of internal left hip prosthetic joint, initial encounter; N17.9 Acute kidney failure, unspecified; F10.239 Alcohol dependence with withdrawal, unspecified; F31.9 Bipolar disorder, unspecified; Y90.7 Blood alcohol level of 200-239 mg/100 ml; M19.90 Unspecified osteoarthritis, unspecified site; M79.7 Fibromyalgia; R73.9 Hyperglycemia, unspecified; E87.6 Hypokalemia; L40.50 Arthropathic psoriasis, unspecified; K21.9 Gastro-esophageal reflux disease without esophagitis; E78.5 Hyperlipidemia, unspecified; K70.10 Alcoholic hepatitis without ascites; K70.0 Alcoholic fatty liver; F10.229 Alcohol dependence with intoxication, unspecified; I10 Essential (primary) hypertension; E03.9 Hypothyroidism, unspecified; F41.9 Anxiety disorder, unspecified; M06.9 Rheumatoid arthritis, unspecified; E86.0 Dehydration; F22 Delusional disorders; F17.210 Nicotine dependence, cigarettes, uncomplicated; Z96.642 Presence of left artificial hip joint; Z91.5 Personal history of self-harm
CPT/HCPCS: 36415; 80048; 80053; 81001; 81002; 82077; 82962; 85025; 85610; 85730; 87077; 87086; 87088; 87186; 87426; 97110; 97116; 97162; 97166; 97530; 97535; 99285; 99406; J7030; A4216; J2405; J3490

== ENCOUNTER 2020-06-23 19:52 | Inpatient (IN) | payer MEDICARE, SELFPAY ==
[2020-06-23 19:57] VITALS: BP 138/99; PULSE 125; RESP 18; TEMP 36; O2SAT 95; BMI 20.1
--- NOTE | 2020-06-23 20:09 | EKG12_ITS ---
Test Reason : FALL Blood Pressure : / mmHG Vent. Rate : 128 BPM Atrial Rate : 128 BPM P-R Int : 132 ms QRS Dur : 072 ms QT Int : 364 ms P-R-T Axes : 069 057 057 degrees QTc Int : 531 ms Sinus tachycardia with Premature atrial complexes Otherwise normal ECG Confirmed by LISSETT LORENZ, XIAO ([id number]), commercial production editor DORINA HELLER ([id number]) on 06/28/2020 6:41:01 AM Referred By: ANETTE Confirmed By:XIAO GALEANA MD
--- NOTE | 2020-06-23 20:13 | CM.ED ---
Social Work Chart review completed. Patient discharged from acute on 06/16/2020 against recommendation for patient to discharge to a SNF. Patient was reporting to not be able to afford intermediate. At the time Wrapper Opener did educated patient on Medicaid application process and offered to assist patient with this, patient declined at that time. APS saw patient while in hospital last admission. Medical team and EMS with multiple concerns for patient being able to care for self. Social Work unable to see patient in person at this time due to medical care. Telephone call to [facility] Wenceslao VALADEZ. No answer due to after hours. Voicemail left. Social Work to continue to follow Juliano BEAR, KIM-S
[2020-06-23 20:57] LABS: Absolute Lymphocyte Count 0.85 X10^3/uL (0.83-4.51); Absolute Neutrophil Count 17.6 X10^3/uL (2.0-7.7); Basophil% 0.5 % (0-1); Eosinophil# 0.54 X10^3/uL; Eosinophils% 2.6 % (0-5); Hematocrit 43.2 % (37-47); Hemoglobin 13.7 g/dL (12.0-15.0); Lymphocyte # 0.85 X10^3/ul (4.0); Lymphocyte % 4.2 % (19-41); Mean Corp Hgb Conc 31.7 g/dL (32-36); Mean Corpuscular Hgb 28.6 pg (27.0-32.0); Mean Corpuscular Volume 90.2 fL (81-99); Mean Platelet Vol. 8.9 fl (6.2-12.0); Monocyte# 1.14 X10^3/uL; Monocyte% 5.6 % (0-10); NRBC Flagged by Analyzer 0 % (0-5); Neutrophil # 17.61 X10^3/uL (2.7-7.7); Neutrophil % 85.9 % (47-70); Platelet Count 343 K/mm3 (150-450); RBC Distribution Width CV 19.9 % (11.6-14.6); RBC Distribution Width SD 62.5 fl (35.1-43.9); Red Blood Count 4.79 M/mm3 (4.2-5.4); White Blood Count 20.5 K/mm3 (4.4-11.0)
--- NOTE | 2020-06-23 20:57 | RAD_ITS ---
STUDY: X-RAY - PELVIS AND RIGHT HIP REASON FOR EXAM: Female, 70 years old. right hip pain after fall. TECHNIQUE: 3 views of the pelvis and hip. COMPARISON: None. FINDINGS: There is a non-specific bowel gas pattern. Normal visualized soft tissue structures. Left total hip arthroplasty is in anatomic alignment. Normal bilateral iliac wings, sacroiliac joints and visualized sacrum. Normal bilateral superior and inferior pubic rami. Normal pubic symphysis. Normal bilateral ischial tuberosities. Normal visualized femoral head. Normal acetabulum. Normal hip joint. RAD/HIP, UNI W/ Pelvis 2-3 Views IMPRESSION: No acute fracture Electronically Signed: Justo Brady MD at 22:00 EST , Service support ,
[2020-06-23] MEDS: Morphine 4 MG/ML Syringe IM (21:02)
[2020-06-23] MEDS: 0.9% Normal Saline 1,000 ML 999 ML IV ×2 (21:02→23:07)
[2020-06-23 21:07] LABS: Partial Thromboplast Time 30.1 Seconds (24.1-36.2)
--- NOTE | 2020-06-23 21:10 | US_ITS ---
STUDY: VENOUS DOPPLER ULTRASOUND - LEFT LOWER EXTREMITY REASON FOR EXAM: Female, 70 years old. PT FELL WITH LT HIP AND LEG PAIN FOOT SWELLING TECHNIQUE: Ultrasound evaluation of the deep vein system to include arias-scale imaging and compression was performed. Arias-scale imaging and Doppler sonographic evaluation, including duplex spectral analysis and qualitative color flow sonography, was performed. COMPARISON: None. FINDINGS: Common Femoral Vein: Normal compression, spontaneity and augmentation. Normal color Doppler. Common Femoral Vein/Greater Saphenous Junction: Normal compression, spontaneity and augmentation. Normal color Doppler. Deep Femoral Vein: Normal compression, spontaneity and augmentation. Normal color Doppler. Femoral Proximal: Normal compression, spontaneity and augmentation. Normal color Doppler. Femoral Middle: Normal compression, spontaneity and augmentation. Normal color Doppler. Femoral Distal: Normal compression, spontaneity and augmentation. Normal color Doppler. Popliteal Vein: Normal compression, spontaneity and augmentation. Normal color Doppler. Posterior Tibial Vein: Normal compression, spontaneity and augmentation. Normal color Doppler. Peroneal Vein: Normal compression, spontaneity and augmentation. Normal color Doppler. US/Venous Duplex Imag/Limited/Uni IMPRESSION: Normal venous Doppler ultrasound of the lower extremity. Electronically Signed: Justo Brady MD at 22:32 EST , Service support ,
[2020-06-23 21:17] LABS: Lipase 867 U/L (73-393)
[2020-06-23 21:22] VITALS: BP 128/71; PULSE 115; RESP 18; TEMP 36.6; O2SAT 100
[2020-06-23 21:26] LABS: Mucous, Urine 0 SEEN /hpf (<or=2+); Red Blood Cells-Urine 0 SEEN /hpf (0-5)
[2020-06-23 21:26] LABS: ALB/GLOB Ratio 0.5 RATIO (0.9-2.4); AST(SGOT) 87 U/L (15-37); Alanine Aminotransfer ALT/SGPT 105 U/L (13-56); Albumin, Serum 2.9 g/dL (3.2-5.0); Alkaline Phosphatase 293 U/L (45-117); Anion Gap 18 (5-15); BUN 20 mg/dL (7-18); BUN/Creat Ratio 22.1 RATIO (10-20); CPK Total, Creatine Kinase 287 U/L (26-192); Calcium,Total 9.2 mg/dL (8.5-10.1); Chloride 112 mmol/L (98-107); EST Glomerular Filtration Rate 65 mL/min (>60); Est Glom Filt Rate - Afr Amer 79 mL/min (>60); Estimated Creatinine Clearance 50.57 ml/min; Globulin 5.4 g/dL (2.2-4.2); Glucose 160 mg/dL (74-106); Potassium 2.7 mmol/L (3.5-5.1); Protein, Total 8.3 g/dL (6.4-8.2); Sodium Level 149 mmol/L (136-145)
[2020-06-23 21:29] LABS: Lactic Acid 3.4 mmol/L (0.4-1.9)
[2020-06-23 21:37] LABS: Color, Urine Yellow (Yellow); Glucose, Dipstick Normal (Normal); Ketone-Dipstick 50 mg/dl (Negative); Leukocyte Esterase-Dipstick 25 /ul (Negative); Nitrite-Dipstick Negative (Negative); Occult Blood-Urine 50 /ul (Negative); Protein-Dipstick 100 mg/dl (Negative); Specific Gravity, Urine 1.015 (1.002-1.030); Urine Clarity Clear (Clear); Urine Urobilinogen 4 mg/dl (Normal)
--- NOTE | 2020-06-23 21:38 | RAD_ITS ---
STUDY: X-RAY CHEST REASON FOR EXAM: Female, 70 years old. right hip pain after fall. TECHNIQUE: Single frontal view of the chest. COMPARISON: 05/10/2020 FINDINGS: The lungs are clear and expanded. There is no demonstrated pleural abnormality. Normal size heart. Normal mediastinum and miguel angel. Normal visualized pulmonary arteries. Normal visualized aortic arch and descending thoracic aorta. Normal visualized thoracic spine. Nondisplaced fracture posterior eighth rib on the right, unchanged. There is no demonstrated abnormality of the visualized soft tissue structures of the upper abdomen. RAD/Chest 1 View (Portable) IMPRESSION: No acute disease Electronically Signed: Justo Brady MD at 22:00 EST , Service support ,
[2020-06-23 21:40] LABS: Urine Bilirubin Dipstick 1 mg/dL (Negative)
[2020-06-23 21:50] LABS: D-Dimer Quantitative (DVT/PE) 2.68 FEU/ug/m (0.27-0.49)
--- NOTE | 2020-06-23 21:51 | CT_ITS ---
STUDY: CTA CHEST REASON FOR EXAM: Female, 70 years old. ?PE RADIATION DOSAGE (If Supplied By Facility): CTDIvol = ( 4.75 ) mGy, DLP = ( 187.05 ) mGycm TECHNIQUE: The examination was performed with the intravenous administration of IV 75mL Isovue-300. Post-processing of the angiographic images was performed, with multiplanar reformation and 3D reconstruction. Individualized dose optimization techniques were used for this CT. COMPARISON: Chest x-ray from today and 10/15/2017 CT chest. FINDINGS: Normal enhancement of the main pulmonary artery and right and left pulmonary arteries. Normal enhancement of the bilateral peripheral pulmonary arteries. There is no demonstrated pulmonary embolism. Normal thoracic aorta and visualized great vessels. There is no demonstrated aortic dissection. Normal heart and pericardium. Normal mediastinum. Normal hilar regions. Normal visualized trachea and bronchi. The lungs are well expanded. Mild patchy right perihilar groundglass opacities. Normal pleura. Normal chest wall structures. Normal osseous structures. Coarse calcifications in the pancreas. CT/CTA Chest W/WO Contrast IMPRESSION: Right perihilar groundglass opacities are nonspecific. Differential considerations include infectious, inflammatory, neoplastic etiologies. Chronic pancreatitis. Electronically Signed: Justo Brady MD at 22:30 EST , Service support ,
--- NOTE | 2020-06-23 21:51 | CT_ITS ---
STUDY: CT BRAIN WITHOUT CONTRAST REASON FOR EXAM: Female, 70 years old. FALL. Repeat scan d/t wires RADIATION DOSAGE (If Supplied By Facility): CTDIvol = ( 44.99 ) mGy, DLP = ( 1625.96 ) mGycm TECHNIQUE: Transaxial CT imaging of the brain was performed without administration of intravenous contrast material. Individualized dose optimization techniques were used for this CT. COMPARISON: CT brain 02/05/2020 FINDINGS: Normal soft tissue structures. Normal calvarium. There is mild cerebral atrophy with widening of the extra-axial spaces and ventricular dilatation. There are areas of decreased attenuation within the white matter tracts of the supratentorial brain, consistent with microvascular disease changes. Normal basal ganglia and thalami. Normal brainstem. Normal cerebellum. There is no intracranial hemorrhage. There are no findings of an acute ischemic infarction. Normal visualized paranasal sinuses. CT/Brain/Head without Contrast IMPRESSION: Chronic involutional changes of the brain. Electronically Signed: Justo Brady MD at 22:22 EST , Service support ,
[2020-06-23 22:00] LABS: Bacteria 1+ /hpf (None Seen); Squamous Epithelial Cells - UA 0-5 SEEN /hpf (5-10); White Blood Cells 5-10 SEEN /hpf (0-5)
[2020-06-23 22:01] LABS: Amorphous Sediment 3+
[2020-06-23 22:28] VITALS: BP 120/76; PULSE 119; RESP 16; TEMP 35.7; O2SAT 100
--- NOTE | 2020-06-23 22:34 | ED.DCSUM_ITS ---
- ER Visit Summary Date of Service: 06/23/20 Chief Complaint: Pain in hips, back, and ribs History of Present Illness: The patient is a [address] Howard. She is a poor informant. She reports that she has had pain in the above areas since February 04January when she fell out of bed on her birthday. She also reports that she been able to walk since that time. She denies any recent fall. Patient reports that she has a mild cough. It is nonproductive. She denies any fever, chills, chest pain, shortness of breath. She does report that she has abdominal pain is nauseated. No vomiting or diarrhea. She complains of generalized weakness. Physical Examination: Vitals: 96.8, 138/99, 125, 18, 95% on room air which is hypoxic. General: Unkempt. Head: Normocephalic atraumatic. Neck: Supple, no lymphadenopathy. No JVD. Nontender. Cardiovascular: Regular tachycardic rhythm with no murmur. Respiratory: No respiratory distress. Clear to auscultation bilaterally. Abdominal: Soft, mild diffuse tenderness to palpation, nondistended, normal bowel sounds. No guarding, rebound, or peritoneal signs. Back: Nontender. Extremities: Severe tenderness to palpation over her greater trochanters bilaterally. There is a large pressure ulcer over her right greater trochanter. This is foul smelling. There is minimal surrounding erythema she has 2+ pitting edema of her left lower extremity.. Skin: Normal color, no rash. Neurologic: Alert and oriented ?3. Cranial nerves II through XII are intact. Normal strength and sensation. Psych: Depressed. Test Results: EKG is sinus tachycardia at 128 with PACs. Is unchanged from last month. Troponin is negative. CPK is 287. Lactic acid is 3.4. D-dimer is 2.68. Left lower extremity Doppler is negative. UA shows 5-10 white blood cells, leukocytes, blood, and ketones. There is 1+ bacteria. LFTs show total protein of 8.3, albumin 2.9, alk phos 293, ALT of 105, AST of 87. Her lipase is a 67. Her coags are normal. Alcohol level is 109. Chem-7 shows a sodium 149, potassium 3.7, chloride 112, CO2 of 19, anion gap of 18, glucose 160, BUN of 20. CBC shows a white count of 20.5 with 86 segmented neutrophils and 4 lymphocytes. She is 1.2% immature granulocytes. Clinical Impression(s) from Imaging Studies Hip/Pelvis X-Ray 06/23/20 20:57 IMPRESSION: No acute fracture Electronically Signed: Justo Brady MD at 22:00 EST , Service support , Venous Duplex 06/23/20 21:10 IMPRESSION: Normal venous Doppler ultrasound of the lower extremity. Electronically Signed: Justo Brady MD at 22:32 EST , Service support , Chest X-Ray 06/23/20 21:38 IMPRESSION: No acute disease Electronically Signed: Justo Brady MD at 22:00 EST , Service support , Brain CT 06/23/20 21:51 IMPRESSION: Chronic involutional changes of the brain. Electronically Signed: Justo Brady MD at 22:22 EST , Service support , Chest CTA 06/23/20 21:51 IMPRESSION: Right perihilar groundglass opacities are nonspecific. Differential considerations include infectious, inflammatory, neoplastic etiologies. Chronic pancreatitis. Electronically Signed: Justo Brday MD at 22:30 EST , Service support , Laboratory Data 06/23/20 06/23/20 06/23/20 20:43 20:45 20:45 WBC 20.5 H RBC 4.79 Hgb 13.7 Hct 43.2 MCV 90.2 MCH 28.6 MCHC 31.7 L RDW Std Deviation 62.5 H RDW Coeff of Jonathan 19.9 H Plt Count 343 MPV 8.9 Immature Gran % (Auto) 1.200 H Neut % (Auto) 85.9 H Lymph % (Auto) 4.2 L [place] % (Auto) 5.6 Eos % (Auto) 2.6 Baso % (Auto) 0.5 Absolute Neuts (auto) 17.6 H Absolute Lymphs (auto) 0.85 Nucleated RBC % 0 PT 13.0 INR 1.0 APTT 30.1 D-Dimer Quant (PE/DVT) 2.68 H* Sodium Potassium Chloride Carbon Dioxide Anion Gap BUN Creatinine Estim Creat Clear Calc Est GFR (MDRD) Af Amer Est GFR (MDRD) Non-Af BUN/Creatinine Ratio Glucose Lactic Acid Calcium Total Bilirubin AST ALT Alkaline Phosphatase Total Creatine Kinase Troponin I Total Protein Albumin Globulin Albumin/Globulin Ratio Lipase Urine Color Urine Clarity Urine pH Ur Specific [place] Urine Protein Urine Glucose (UA) Urine Ketones Urine Occult Blood Urine Nitrite Urine Bilirubin Urine Urobilinogen Ur Leukocyte Esterase Urine RBC Urine WBC Ur Squamous Epith Cells Amorphous Sediment Urine Bacteria Urine Mucus Ethyl Alcohol 06/23/20 06/23/20 06/23/20 20:45 20:45 20:45 WBC RBC Hgb Hct MCV MCH MCHC RDW Std Deviation RDW Coeff of Jonathan Plt Count MPV Immature Gran % (Auto) Neut % (Auto) Lymph % (Auto) [place] % (Auto) Eos % (Auto) Baso % (Auto) Absolute Neuts (auto) Absolute Lymphs (auto) Nucleated RBC % PT INR APTT D-Dimer Quant (PE/DVT) Sodium 149 H Potassium 2.7 L* Chloride 112 H Carbon Dioxide 19.0 L Anion Gap 18 H BUN 20 H Creatinine 0.90 Estim Creat Clear Calc 50.57 Est GFR (MDRD) Af Amer 79 Est GFR (MDRD) Non-Af 65 BUN/Creatinine Ratio 22.1 H Glucose 160 H Lactic Acid 3.4 H* Calcium 9.2 Total Bilirubin 0.70 AST 87 H ALT 105 H Alkaline Phosphatase 293 H Total Creatine Kinase 287 H Troponin I < 0.015 Total Protein 8.3 H Albumin 2.9 L Globulin 5.4 H Albumin/Globulin Ratio 0.5 L Lipase Urine Color Urine Clarity Urine pH Ur Specific [place] Urine Protein Urine Glucose (UA) Urine Ketones Urine Occult Blood Urine Nitrite Urine Bilirubin Urine Urobilinogen Ur Leukocyte Esterase Urine RBC Urine WBC Ur Squamous Epith Cells Amorphous Sediment Urine Bacteria Urine Mucus Ethyl Alcohol 109.0 06/23/20 06/23/20 20:45 21:15 WBC RBC Hgb Hct MCV MCH MCHC RDW Std Deviation RDW Coeff of Jonathan Plt Count MPV Immature Gran % (Auto) Neut % (Auto) Lymph % (Auto) [place] % (Auto) Eos % (Auto) Baso % (Auto) Absolute Neuts (auto) Absolute Lymphs (auto) Nucleated RBC % PT INR APTT D-Dimer Quant (PE/DVT) Sodium Potassium Chloride Carbon Dioxide Anion Gap BUN Creatinine Estim Creat Clear Calc Est GFR (MDRD) Af Amer Est GFR (MDRD) Non-Af BUN/Creatinine Ratio Glucose Lactic Acid Calcium Total Bilirubin AST ALT Alkaline Phosphatase Total Creatine Kinase Troponin I Total Protein Albumin Globulin Albumin/Globulin Ratio Lipase 867 H Urine Color Yellow Urine Clarity Clear Urine pH 5.0 Ur Specific [place] 1.015 Urine Protein 100 H Urine Glucose (UA) Normal Urine Ketones 50 H Urine Occult Blood 50 H Urine Nitrite Negative Urine Bilirubin 1 H Urine Urobilinogen 4 H Ur Leukocyte Esterase 25 H Urine RBC 0 SEEN Urine WBC 5-10 SEEN Ur Squamous Epith Cells 0-5 SEEN Amorphous Sediment 3+ Urine Bacteria 1+ Urine Mucus 0 SEEN Ethyl Alcohol Clinical Impression(s) from Imaging Studies Hip/Pelvis X-Ray 06/23/20 20:57 IMPRESSION: No acute fracture Electronically Signed: Justo Brady MD at 22:00 EST , Service support , Venous Duplex 06/23/20 21:10 IMPRESSION: Normal venous Doppler ultrasound of the lower extremity. Electronically Signed: Justo Brady MD at 22:32 EST , Service support , Chest X-Ray 06/23/20 21:38 IMPRESSION: No acute disease Electronically Signed: Justo Brady MD at 22:00 EST , Service support , Brain CT 06/23/20 21:51 IMPRESSION: Chronic involutional changes of the brain. Electronically Signed: Justo Brady MD at 22:22 EST , Service support , Chest CTA 06/23/20 21:51 IMPRESSION: Right perihilar groundglass opacities are nonspecific. Differential considerations include infectious, inflammatory, neoplastic etiologies. Chronic pancreatitis. Electronically Signed: Justo Brady MD at 22:30 EST , Service support , Emergency Department Course and Treatment: Patient had an IV placed. She was given a liter normal saline. She was given Zosyn, vancomycin, morphine, and Zofran IV. She was given potassium p.o. Treatment Plan: EMS reports the patient's house is unlivable. She came to the emergency department covered with stool. Case management saw the patient upon her arrival and they are familiar with her. They have attempted to place her in [facility] facilities without success. Patient has an acute illness in addition to her chronic debility and will be discussed with Dr. Fernandez and admitted for further evaluation and treatment. Disposition: Admitted in serious condition. Impression: 1. Pressure ulcer right greater trochanter. 2. Sepsis. 3. UTI. 4. Hyperkalemia. 5. Generalized debility. 6. Critical care time 33 minutes. This note was generated with [employer] dictation software. It may contain incorrect words, spelling, and punctuation that were not noted in review of the chart prior to signing ED Disposition - Plan for ED Patient: Referrals: Brant Howard Chi, MD [Primary Care Provider] -
--- NOTE | 2020-06-23 22:58 | HP.PCM_ITS ---
Problem List (1) Severe sepsis Status: Acute (2) Debility Status: Chronic (3) Autoimmune pancreatitis Status: Chronic (4) Alcohol dependence Status: Chronic Qualifiers: Substance use status: unspecified alcohol-induced disorder Qualified Code(s): F10.29 - Alcohol dependence with unspecified alcohol-induced disorder (5) Psoriatic arthritis Status: Chronic (6) Severe protein-calorie malnutrition Status: Chronic (7) HLD (hyperlipidemia) Status: Chronic Qualifiers: Hyperlipidemia type: unspecified Qualified Code(s): E78.5 - Hyperlipidemia, unspecified (8) GERD (gastroesophageal reflux disease) Status: Chronic Qualifiers: Esophagitis presence: esophagitis presence not specified Qualified Code(s): K21.9 - Gastro-esophageal reflux disease without esophagitis (9) Tobacco use Status: Chronic (10) Alcoholism Status: Chronic (11) Hepatic steatosis Status: Chronic (12) Alcoholic hepatitis Status: Chronic Qualifiers: Ascites presence: without ascites Qualified Code(s): K70.10 - Alcoholic hepatitis without ascites (13) Abnormal LFTs Status: Chronic (14) Alcoholic pancreatitis Status: Chronic Qualifiers: Chronicity: acute (15) Alcohol abuse Status: Chronic (16) Hypertension Status: Chronic Qualifiers: Hypertension type: essential hypertension Qualified Code(s): I10 - Essential (primary) hypertension (17) Hypothyroidism Status: Chronic Qualifiers: Hypothyroidism type: unspecified Qualified Code(s): E03.9 - Hypothyroidism, unspecified (18) Anxiety Status: Chronic (19) Fibromyalgia Status: Chronic (20) Dysphagia Status: Chronic (21) Rheumatoid arthritis Status: Chronic Comment: never confirmed.....RA is negative.....tells me that she has psoriatic arthritis (22) Psoriasis Status: Chronic (23) Chronic back pain Status: Chronic Qualifiers: Back pain location: back pain in unspecified location Back pain laterality: unspecified Qualified Code(s): M54.9 - Dorsalgia, unspecified; G89.29 - Other chronic pain Comment: osteoarthritis (24) Delusional disorder Status: Chronic (25) Bipolar disorder Status: Chronic Qualifiers: Active/Remission status: remission status unspecified Qualified Code(s): F31.9 - Bipolar disorder, unspecified (26) Depression with H/o suicidal attempt Status: Chronic History of Present Illness Date of Admission: 06/23/20 Chief Complaint: Lying on the floor The patient is a 70 year old F with a significant history of fibromyalgia and chronic alcoholism who presents to the emergency department because she was found lying on the floor. Per patient she has been lying on the floor for 2 days. Her friend who has keys to her abode came in and called the paramedics. Reportedly when paramedics came there were faeces all over the floor of her abode She complains of generalized body pain. About half hour prior to presentation to the emergency department she drank some vodka. Her alcohol level was elevated at emergency department. Reportedly she has diffuse pain and she drinks diluted vodka to numb her pain. Patient was tachycardic and had elevated white count at emergency department. Her lactic acid was elevated. Past Medical History Past Medical History (Chronic Problems): Chronic Problems Debility (Chronic) Autoimmune pancreatitis (Chronic) Alcohol dependence (Chronic) Psoriatic arthritis (Chronic) Severe protein-calorie malnutrition (Chronic) HLD (hyperlipidemia) (Chronic) GERD (gastroesophageal reflux disease) (Chronic) Tobacco use (Chronic) Alcoholism (Chronic) Hepatic steatosis (Chronic) Alcoholic hepatitis (Chronic) Abnormal LFTs (Chronic) Alcoholic pancreatitis (Chronic) Alcohol abuse (Chronic) Hypertension (Chronic) Hypothyroidism (Chronic) Anxiety (Chronic) Fibromyalgia (Chronic) Dysphagia (Chronic) Rheumatoid arthritis (Chronic) never confirmed.....RA is negative.....tells me that she has psoriatic arthritis Psoriasis (Chronic) Chronic back pain (Chronic) osteoarthritis Delusional disorder (Chronic) Bipolar disorder (Chronic) Depression with H/o suicidal attempt (Chronic) Allergies nickel [Nickel] Allergy (Verified 06/23/20 19:56) Rash/autoimmune reactions prochlorperazine edisylate [From Compazine] Adverse Reaction (Verified 06/23/20 19:56) disoriented prochlorperazine maleate [From Compazine] Adverse Reaction (Verified 06/23/20 19:56) DISORIENTED CADMIUM Allergy (Uncoded 06/23/20 19:56) Rash AUTOIMMUNE RESPONSE Home Medications: Ambulatory Orders Medication Instructions Recorded NK 06/23/20 Surgical History: tonsillectomy, - - Recent left hip fracture with repair. Psychiatric History: Anxiety, Bipolar, Depression, - - Delusional disorder. 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 Paternal History Items: - - Reports that her father from aspiration pneumonia at age 92. And her grandfather from pneumonia at age 32. She also notes that her father had exposure to nickel and had some diseases related but cannot give this information. Denied any history of heart disease, diabetes or cancer. Review of Systems Constitutional: Denies: Chills, Fever, Weight Change HEENT: Denies: Head Aches, Sinus Congestion, Sinus Drainage Cardiovascular: Reports: Edema. Denies: Chest Pain, Palpitations Respiratory: Denies: Cough, Shortness of breath at rest, Sputum production Gastrointestinal: Denies: Abdominal Pain, Nausea, Vomiting Genitourinary: Denies: Dysuria Musculoskeletal: Reports: Joint Pain - Diffuse joint pain of multiple areas.. Denies: Joint Tenderness Skin: Reports: Wounds. Denies: Rash Neurological: Denies: Numbness, Tingling, Focal weakness Psychiatric: Denies: Anxiety, Depression, Homicidal Ideations, Suicidal Ideations Hematologic/ Lymphatic: Denies: Easy Bruising, Easy Bleeding VTE Information - Inpt Only VTE Present on Admission: No VTE Mechan Device Prophylaxis: None VTE Pharm Prophylaxis ordered?: Yes Patient Problems: Active and Suspected Problems Severe sepsis (Acute) - Physical Exam Vitals/I&O's: Vital Signs Temp Pulse Resp BP Pulse Ox 96.3 F L 119 H 16 120/76 100 06/23/20 22:28 06/23/20 22:28 06/23/20 22:28 06/23/20 22:28 06/23/20 22:28 Oxygen Delivery Method Room Air Weight: 56.699 kg Body Mass Index (BMI) 20.1 Finger Stick Blood Glucose 103 Intake and Output for Last 24 Hours 06/21/20 06/22/20 06/23/20 23:59 23:59 23:59 Intake Total 100 / 100 Balance 100 / 100 General: Alert, Oriented x3, Cooperative HEENT: Atraumatic, PERRLA, EOMI, Normocephalic Neck: Supple, No JVD, Negative Carotid Bruits Lungs: Clear to auscultation, Normal air movement Cardiovascular: Normal S1, Normal S2, No murmurs, Tachycardic Abdomen: Bowel Sounds Present, Soft, Non Tender Extremities: Capillary Refill Less than 3 Seconds, Edema - Bilateral feet Skin: Ulcer/ Wound - Right hip with necrotic areas and surrounding erythema. Ulcer of right foot., - Musculoskeletal: No Tenderness to Palpation of Joints or Extremities Neurological: Cranial nerves II-XII grossly intact Psych/Mental Status: Normal Affect, Appropriate Microbiology Past 72 Hours 06/23/20 21:15 Mucosa - Nose SARS-CoV-2 Antigen (Rapid) - Final Laboratory Results 06/23/20 20:43: D-Dimer Quant (PE/DVT) 2.68 H* 06/23/20 20:45: WBC 20.5 H, RBC 4.79, Hgb 13.7, Hct 43.2, MCV 90.2, MCH 28.6, MCHC 31.7 L, RDW Std Deviation 62.5 H, RDW Coeff of Jonathan 19.9 H, Plt Count 343, MPV 8.9, Immature Gran % (Auto) 1.200 H, Neut % (Auto) 85.9 H, Lymph % (Auto) 4.2 L, [place] % (Auto) 5.6, Eos % (Auto) 2.6, Baso % (Auto) 0.5, Absolute Neuts (auto) 17.6 H, Absolute Lymphs (auto) 0.85, Nucleated RBC % 0 06/23/20 20:45: PT 13.0, INR 1.0, APTT 30.1 06/23/20 20:45: Sodium 149 H, Potassium 2.7 L*, Chloride 112 H, Carbon Dioxide 19.0 L, Anion Gap 18 H, BUN 20 H, Creatinine 0.90, Estim Creat Clear Calc 50.57, Est GFR (MDRD) Af Amer 79, Est GFR (MDRD) Non-Af 65, BUN/Creatinine Ratio 22.1 H , Glucose 160 H, Calcium 9.2, Total Bilirubin 0.70, AST 87 H, ALT 105 H, Alkaline Phosphatase 293 H, Total Creatine Kinase 287 H, Troponin I < 0.015, Total Protein 8.3 H, Albumin 2.9 L, Globulin 5.4 H, Albumin/Globulin Ratio 0.5 L 06/23/20 20:45: Lactic Acid 3.4 H* 06/23/20 20:45: Ethyl Alcohol 109.0 06/23/20 20:45: Lipase 867 H 06/23/20 21:15: Urine Color Yellow, Urine Clarity Clear, Urine pH 5.0, Ur Specific [place] 1.015, Urine Protein 100 H, Urine Glucose (UA) Normal, Urine Ketones 50 H, Urine Occult Blood 50 H, Urine Nitrite Negative, Urine Bilirubin 1 H, Urine Urobilinogen 4 H, Ur Leukocyte Esterase 25 H, Urine RBC 0 SEEN, Urine WBC 5-10 SEEN, Ur Squamous Epith Cells 0-5 SEEN, Amorphous Sediment 3+, Urine Bacteria 1+, Urine Mucus 0 SEEN Current Medications Sodium Chloride () 1,000 mls @ 999 mls/hr IV .Q1H1M ONE Stop: 06/23/20 23:52 Assessment/Plan All Active Problems Severe sepsis (Acute) The patient is a 70 year old F with a significant history of fibromyalgia and chronic alcoholism who presents emergency department because she was found lying on the floor; and with erythematous right hip wound that looks necrotic; and with abnormal urinalysis: Hypokalemia; hyponatremia; elevated D-dimer and Elevated lipase. Severe sepsis Likely from right hip wound infection and cystitis. Started on vancomycin and Zosyn at emergency department and continued Lactic acid on presentation was 3.4. Trend Received IV bolus at emergency department. We will continue patient on normal saline with potassium supplementation since patient has concomitant hypokalemia. Urine and blood cultures ordered emergency department; follow. Right hip wound infection Vancomycin and Zosyn as above Wound care consult. Wet-to-dry dressing to right hip for now. Acute cystitis Antibiotics as above Follow urine and blood culture. Hypokalemia: Replaced. Trend BMP Alcohol dependency. We will put patient on phenobarbital taper and add adjunctive medications. CIWA protocol ordered. Debility: PT and OT work with patient. Case management consult for disposition. Elevated D-dimer CTA chest unremarkable. Left lower extremity Doppler unremarkable. Will get Doppler of right lower extremity. Elevated lipase: Likely secondary to chronic pancreatitis. Moderate protein calorie malnutrition: BMI of 20.3. With low albumin; muscle wasting; bilateral leg edema. Ensure Enlive ordered. Tobacco abuse: Nicotine patch ordered. Counseled. DVT Prophylaxis: Subcutaneous Lovenox ordered. Inpatient E&M: 34216 Init Hosp L3
[2020-06-23 23:08] VITALS: BP 120/76; PULSE 119; RESP 16; TEMP 35.7; O2SAT 100
[2020-06-24] VITALS (16 sets, daily range): BP systolic 103–154; BP diastolic 64–99; PULSE 93–130; RESP 16–18; TEMP 36.6–37.7; O2SAT 94–100; BMI 20.2; BMI 20.3
[2020-06-24 00:52] LABS: Reflex Lactate? Y
--- NOTE | 2020-06-24 01:07 | PCM.RX.CS ---
Consult Pharmacy has been consulted to manage selected antiobiotic: Vancomycin Type of Consult: New start Suspected Infection: Sepsis Labs: Sodium 149 mmol/L (136-145) H 06/23/20 20:45 Potassium 2.7 mmol/L (3.5-5.1) L* 06/23/20 20:45 Chloride 112 mmol/L (98-107) H 06/23/20 20:45 Carbon Dioxide 19.0 mmol/L (21.0-32.0) L 06/23/20 20:45 Anion Gap 18 (5-15) H 06/23/20 20:45 BUN 20 mg/dL (7-18) H 06/23/20 20:45 Creatinine 0.90 mg/dL (0.55-1.02) 06/23/20 20:45 Est GFR (MDRD) Af Amer 79 mL/min (>60) 06/23/20 20:45 Est GFR (MDRD) Non-Af 65 mL/min (>60) 06/23/20 20:45 BUN/Creatinine Ratio 22.1 RATIO (10-20) H 06/23/20 20:45 Glucose 160 mg/dL (74-106) H 06/23/20 20:45 Microbiology: Microbiology 06/23/20 21:15 Mucosa - Nose SARS-CoV-2 Antigen (Rapid) - Final Goal Trough: 15-20 mcg/mL Pharmacy Plan for Drug Dosing: Pharmacy Service will continue to monitor and adjust dosing as required. Medications Vancomycin HCl () 500 mg in 100 mls @ 100 mls/hr IV Q12H JAYLON Discontinued Medications Vancomycin HCl 750 mg/ Sodium (Chloride) 265 mls @ 250 mls/hr IV X1 ONE Stop: 06/23/20 22:08 Last Admin: 06/23/20 23:34 Dose: Infused Documented by: Follow-Up Labs: Trough Vancomycin Labs to be done on [date and time ordered]: 06/25 @ 1000
--- NOTE | 2020-06-24 01:15 | VDLE_ITS ---
Reason For Study: elevated D Dimer Procedure LEFT This is a venous duplex using B-mode, color GSV is normal. flow and spectral Doppler. CFV is compressible, spontaneous, phasic, Exam performed portable in patient room. competent, and demonstrates normal The exam was abbreviated due to the COVID 19 augmentation. protocol. FV is compressible, spontaneous, phasic, The study was technically difficult. competent and demonstrates normal PT had difficulty tolerating probe pressure augmentation. and legs are sensitive to touch. POP V is compressible, spontaneous, phasic, A preliminary report was called and/or faxed competent and demonstrates normal to PCU. augmentation. T/P Trunk is compressible. PTV is compressible. LT PerV is compressible. Interpretation Summary Deep veins of the left lower extremity are patent and compressible segmentally. There is no evidence of left lower extremity deep vein thrombosis. Valvular competence appears intact within the proximal deep venous system on the left . The left great saphenous vein appears patent and compressible segmentally. Ordering Physician: Joe Fernandez Referring Physician: Brant Howard chi Performed By: Kinjal Fall, KESHIA, RVT
[2020-06-24] MEDS: Phenobarbital 32.4 MG Tablet PO ×6 (01:26→21:02)
[2020-06-24] MEDS: Potassium Chloride 40 MEQ in 0.9% Normal Saline 1,000 ML 100 MEQ IV ×3 (01:26→23:29)
[2020-06-24 01:47] LABS: Lactic Acid 1.6 mmol/L (0.4-1.9)
--- NOTE | 2020-06-24 03:08 | EKG12_ITS ---
Test Reason : TACHYCARDIA Blood Pressure : / mmHG Vent. Rate : 128 BPM Atrial Rate : 128 BPM P-R Int : 136 ms QRS Dur : 066 ms QT Int : 338 ms P-R-T Axes : 059 024 046 degrees QTc Int : 493 ms Sinus tachycardia Otherwise normal ECG When compared with ECG of 10-MAY-2020 17:58, No significant change was found Confirmed by LISSETT LORENZ, XIAO ([id number]), assistant editor SARITHA COLON ([id number]) on 06/29/2020 2:34:59 PM Referred By: DR MOSES Confirmed By:XIAO GALEANA MD
[2020-06-24] MEDS: oxyCODONE 5 MG Tablet PO ×2 (04:28→18:34)
[2020-06-24] MEDS: Morphine 2 MG/ML Syringe IV (05:34)
[2020-06-24 07:46] LABS: Absolute Lymphocyte Count 0.55 X10^3/uL (0.83-4.51); Absolute Neutrophil Count 14.3 X10^3/uL (2.0-7.7); Basophil# 0.05 X10^3/uL; Basophil% 0.3 % (0-1); Eosinophil# 0.03 X10^3/uL; Eosinophils% 0.2 % (0-5); Hematocrit 32.6 % (37-47); Hemoglobin 10.3 g/dL (12.0-15.0); Lymphocyte # 0.55 X10^3/ul (4.0); Lymphocyte % 3.5 % (19-41); Mean Corp Hgb Conc 31.6 g/dL (32-36); Mean Corpuscular Hgb 28.4 pg (27.0-32.0); Mean Corpuscular Volume 89.8 fL (81-99); Mean Platelet Vol. 8.8 fl (6.2-12.0); Monocyte# 0.87 X10^3/uL; Monocyte% 5.5 % (0-10); NRBC Flagged by Analyzer 0 % (0-5); Neutrophil # 14.26 X10^3/uL (2.7-7.7); Neutrophil % 89.7 % (47-70); POSITIVE DIFFERENTIAL YES; Platelet Count 220 K/mm3 (150-450); RBC Distribution Width CV 19.8 % (11.6-14.6); RBC Distribution Width SD 62.9 fl (35.1-43.9); Red Blood Count 3.63 M/mm3 (4.2-5.4); White Blood Count 15.9 K/mm3 (4.4-11.0)
[2020-06-24 07:48] LABS: Differential Indicated SCAN CRITERIA MET
[2020-06-24 08:07] LABS: Anion Gap 8 (5-15); BUN 14 mg/dL (7-18); Calcium,Total 7.6 mg/dL (8.5-10.1); Chloride 117 mmol/L (98-107); Creatinine, Serum 0.82 mg/dL (0.55-1.02); EST Glomerular Filtration Rate 73 mL/min (>60); Est Glom Filt Rate - Afr Amer 88 mL/min (>60); Glucose 241 mg/dL (74-106); Potassium 4.2 mmol/L (3.5-5.1); Sodium Level 148 mmol/L (136-145)
--- NOTE | 2020-06-24 08:43 | PCS.PANDOC ---
PANDEMIC DOCUMENTATION INITIATED: Date: 06/24/20 Time: 0002
[2020-06-24] MEDS: Folic Acid 1 MG Tablet PO (09:06)
[2020-06-24] MEDS: Thiamine Hydrochloride 100 MG Tablet PO (09:06)
[2020-06-24] MEDS: Enoxaparin 40 MG/0.4 ML Syringe SC (09:22)
[2020-06-24] MEDS: Vancomycin IV 500 MG/100 ML BAG 100 MG IV ×2 (10:53→22:10)
--- NOTE | 2020-06-24 12:00 | CASEMGMT ---
SOCIAL WORK Informant: Mei KAY Reason for Consult: Discharge Planning Patient known to [employer] from previous visits. Reviewed chart. Met with patient in room. Upon entering room, patient sleeping with meal tray in front of her. Patient easily arousable. Introduced role and reason for referral. Discussed patient's previous visits and discharge planning. Patient states, I don't know what to do. Support and education provided. Discussed concerns for patient's safety in her home. Patient nodding in agreement with concerns. Patient then stated, I want to go home. Voicemail has been left with Adult Protective Services (APS). Die Setter to follow up on Friday. Plan: TBD, Patient voiced wishes to return home. Will continue to update [facility]PS with concerns for patient's safety in the home. Kinza [place], DOCUMENTATION SPEC, AUDIO VISUAL COORDINATOR
--- NOTE | 2020-06-24 14:19 | PN_ITS ---
<ZebDonna BERRY PICKER MACHINE OPERATOR - Last Filed: 06/24/20 16:07> Patient Problems: Active and Suspected Problems Severe sepsis (Acute) Subjective: Patient seen and examined. Complains of left hip pain. Denies fever, chills. Confused during assessment. - Physical Exam Vitals/I&O's: Vital Signs Temp Pulse Resp BP Pulse Ox 99.8 F H 117 H 18 103/64 100 06/24/20 09:20 06/24/20 09:20 06/24/20 09:20 06/24/20 09:20 06/24/20 09:20 Oxygen Delivery Method Room Air Weight: 125 lb 10.616 oz Body Mass Index (BMI) 20.2 Finger Stick Blood Glucose 103 Intake and Output for Last 24 Hours 06/22/20 06/23/20 06/24/20 23:59 23:59 23:59 Intake Total 1365 / 1365 3310 / 3310 Output Total 550 / 550 Balance 1365 / 1365 2760 / 2760 General: Alert, Cooperative, No apparent distress HEENT: Atraumatic, PERRLA, EOMI, Normocephalic Neck: Supple, No JVD, Negative Carotid Bruits Lungs: Clear to auscultation, Normal air movement Cardiovascular: Regular rate, No murmurs Abdomen: Bowel Sounds Present, Soft, Non Tender Extremities: No clubbing, No cyanosis, No edema, Capillary Refill Less than 3 Seconds Skin: No rashes, No breakdown, - - Right hip wound, dressing intact Musculoskeletal: No Tenderness to Palpation of Joints or Extremities, Cachexia Neurological: Cranial nerves II-XII grossly intact Psych/Mental Status: Flat Affect Microbiology Past 72 Hours 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 - Preliminary 06/23/20 20:45 Blood Culture (Wb) - Anticubital Left Blood Culture - Preliminary 06/23/20 21:15 Urine Catheter - Funk Urine Culture - Preliminary Presumptive E. coli 06/23/20 21:15 Mucosa - Nose SARS-CoV-2 Antigen (Rapid) - Final Laboratory Results 06/23/20 20:43: D-Dimer Quant (PE/DVT) 2.68 H* 06/23/20 20:45: WBC 20.5 H, RBC 4.79, Hgb 13.7, Hct 43.2, MCV 90.2, MCH 28.6, MCHC 31.7 L, RDW Std Deviation 62.5 H, RDW Coeff of Jonathan 19.9 H, Plt Count 343, MPV 8.9, Immature Gran % (Auto) 1.200 H, Neut % (Auto) 85.9 H, Lymph % (Auto) 4.2 L, [place] % (Auto) 5.6, Eos % (Auto) 2.6, Baso % (Auto) 0.5, Absolute Neuts (auto) 17.6 H, Absolute Lymphs (auto) 0.85, Nucleated RBC % 0 06/23/20 20:45: PT 13.0, INR 1.0, APTT 30.1 06/23/20 20:45: Sodium 149 H, Potassium 2.7 L*, Chloride 112 H, Carbon Dioxide 19.0 L, Anion Gap 18 H, BUN 20 H, Creatinine 0.90, Estim Creat Clear Calc 50.57, Est GFR (MDRD) Af Amer 79, Est GFR (MDRD) Non-Af 65, BUN/Creatinine Ratio 22.1 H , Glucose 160 H, Calcium 9.2, Total Bilirubin 0.70, AST 87 H, ALT 105 H, Alkaline Phosphatase 293 H, Total Creatine Kinase 287 H, Troponin I < 0.015, Total Protein 8.3 H, Albumin 2.9 L, Globulin 5.4 H, Albumin/Globulin Ratio 0.5 L 06/23/20 20:45: Lactic Acid 3.4 H* 06/23/20 20:45: Ethyl Alcohol 109.0 06/23/20 20:45: Lipase 867 H 06/23/20 21:15: Urine Color Yellow, Urine Clarity Clear, Urine pH 5.0, Ur Specific [place] 1.015, Urine Protein 100 H, Urine Glucose (UA) Normal, Urine Ketones 50 H, Urine Occult Blood 50 H, Urine Nitrite Negative, Urine Bilirubin 1 H, Urine Urobilinogen 4 H, Ur Leukocyte Esterase 25 H, Urine RBC 0 SEEN, Urine WBC 5-10 SEEN, Ur Squamous Epith Cells 0-5 SEEN, Amorphous Sediment 3+, Urine Bacteria 1+, Urine Mucus 0 SEEN 06/24/20 01:13: Lactic Acid 1.6 06/24/20 07:29: WBC 15.9 H, RBC 3.63 L, Hgb 10.3 L, Hct 32.6 L, MCV 89.8, MCH 28.4, MCHC 31.6 L, RDW Std Deviation 62.9 H, RDW Coeff of Jonathan 19.8 H, Plt Count 220, MPV 8.8, Immature Gran % (Auto) 0.800, Neut % (Auto) 89.7 H, Lymph % (Auto) 3.5 L, [place] % (Auto) 5.5, Eos % (Auto) 0.2, Baso % (Auto) 0.3, Absolute Neuts (auto) 14.3 H, Absolute Lymphs (auto) 0.55 L, Nucleated RBC % 0 06/24/20 07:29: Sodium 148 H, Potassium 4.2, Chloride 117 H, Carbon Dioxide 23.0, Anion Gap 8, BUN 14, Creatinine 0.82, Estim Creat Clear Calc 55.80, Est GFR (MDRD) Af Amer 88, Est GFR (MDRD) Non-Af 73, BUN/Creatinine Ratio 17.0, Glucose 241 H, Calcium 7.6 L Current Medications Dicyclomine HCl (Dicyclomine 10 Mg Capsule) 20 mg PO Q6H PRN PRN PRN Reason: abdominal discomfort Enoxaparin Sodium (Enoxaparin 40 Mg/0.4 Ml Syringe) 40 mg SC DAILY [facility] Last Admin: 06/24/20 09:22 Dose: 40 mg Documented by: Folic Acid (Folic Acid 1 Mg Tablet) 1 mg PO DAILY@0800 [facility] Last Admin: 06/24/20 09:06 Dose: 1 mg Documented by: Gabapentin (Gabapentin 300 Mg Capsule) 300 mg PO Q8H PRN PRN PRN Reason: moderate to severe anxiety Hydroxyzine Pamoate (Hydroxyzine Crystal 25 Mg Capsule) 50 mg PO Q4H PRN PRN PRN Reason: mild anxiety Potassium Chloride 40 meq/ (Sodium Chloride) 1,020 mls @ 100 mls/hr IV .[id number] [facility] Last Admin: 06/24/20 12:58 Dose: 100 mls/hr Documented by: Vancomycin IV Pharmacy to Dose (1 ea/ Sodium Chloride) 500 mls @ 250 mls/hr IV X1 PRN; Protocol PRN Reason: Rx to Dose Piperacillin Sod/Tazobactam (Sod 3.375 gm/ Sodium Chloride) 50 mls @ 12.5 mls/hr IV Q8 [facility] Last Admin: 06/24/20 14:15 Dose: 12.5 mls/hr Documented by: Vancomycin HCl () 500 mg in 100 mls @ 100 mls/hr IV Q12H [facility] Last Infusion: 06/24/20 11:53 Dose: Infused Documented by: Loperamide HCl (Loperamide 2 Mg Capsule) 2 mg PO Q4H PRN PRN PRN Reason: LOOSE STOOLS Morphine Sulfate (Morphine 2 Mg/Ml Syringe) 2 mg IV Q3H PRN PRN PRN Reason: Pain Score 6-10 Last Admin: 06/24/20 05:34 Dose: 1 mg Documented by: Nicotine (Nicotine 14 Mg Patch) 14 mg TD DAILY [facility] Last Admin: 06/24/20 09:22 Dose: Not Given Documented by: Nutritional Formula (Lactose Free) (Ensure Enlive 120 Ml Liquid) 120 ml PO 4X/DAY [facility] Last Admin: 06/24/20 14:15 Dose: 120 ml Documented by: Ondansetron HCl (Ondansetron 4 Mg/2 Ml Vial) 4 mg IV Q8H PRN PRN PRN Reason: NAUSEA/VOMITING Ondansetron HCl (Ondansetron 8 Mg Tablet) 8 mg PO Q8H PRN PRN PRN Reason: NAUSEA Oxycodone HCl (Oxycodone 5 Mg Tablet) 5 mg PO Q8H PRN PRN PRN Reason: Pain Score 6-10 Last Admin: 06/24/20 04:28 Dose: 5 mg Documented by: Phenobarbital (Phenobarbital 32.4 Mg Tablet) 97.2 mg PO Q4H [facility]; Taper Stop: 06/28/20 08:29 Last Admin: 06/24/20 13:06 Dose: 97.2 mg Documented by: Senna/Docusate Sodium (Senna/Docusate Sodium 1 Tablet) 2 tablet PO BID PRN PRN PRN Reason: Constipation Sodium Chloride (0.9% Saline Lock 10 Ml Syringe) 10 - 40 ml IV UD PRN PRN Reason: SALINE FLUSH Thiamine HCl (Thiamine Hydrochloride 100 Mg Tablet) [facility] Last Admin: 06/24/20 09:06 Dose: 100 mg Documented by: Trazodone HCl (Trazodone 100 Mg Tablet) 100 mg PO QHS PRN PRN Reason: INSOMNIA Medical Necessity - Tobacco Use Smoking Status: Current some day smoker Assessment/Plan All Active Problems Severe sepsis (Acute) 1. Severe sepsis secondary to right hip infected wound and acute cystitis-urine culture growing E. coli. Blood cultures pending. Obtain wound culture. Orthopedic medicine consulted for right hip wound, status post right hemiarthroplasty January 2020. Continue IV Zosyn and IV vancomycin. Wound RN consult. 2. Chronic alcohol dependence-medical stabilization per protocol. CIWA. Thiamine, multivitamin, folic acid. 3. History of recurrent alcoholic pancreatitis, chronically elevated lipase and liver enzymes-at baseline. 4. Hypertension-previously on atenolol. Patient no longer on medication. Will initiate low-dose metoprolol given tachycardia. 5. Debility with recurrent falls-PT/OT. Fall precautions. 6. Depression/bipolar-previously referred to behavioral health. Not on home medication regimen. Recommend outpatient follow-up. 7. Hypothyroidism-has not been taking Synthroid. Check TSH. 8. Tobacco dependence-encouraged cessation. 9. Moderate protein calorie malnutrition- finishing and shipping supervisor consult. DVT prophylaxis-Lovenox subcu This patient was seen by CLAUDIA Roblero under the supervision of Dr. Jacome. <Salbador Jacome - Last Filed: 06/24/20 16:26> Subjective: Seen and examined. No fever or chills. Patient complain of left hip pain. It seems patient has dementia and history is not consistent and unreliable. She initially complains of pain on walking and then states sometimes pain wakes her up from sleep. This has been going for 5 to 6 months. And had left hip arthroplasty by Dr. Josh Marie in January 2020 and since then she has pain. General: Confused, disoriented to time. HEENT: Atraumatic, PERRLA, EOMI, Normocephalic Oral: No Gingival or Mucosal Lesions/ Ulcerations Neck: Supple, No JVD, Negative Carotid Bruits Lungs: Air entry diminished in bilateral lung bases. No crepitation/rhonchi Cardiovascular: Regular rate, Regular Rhythm, Normal S1, Normal S2, No murmurs Abdomen: Bowel Sounds Present, Soft, Non Tender, Non-Distended : No renal angle tenderness. No suprapubic tenderness. Extremities: No edema, Capillary Refill Less than 3 Seconds Skin: Right hip large necrotic wound with surrounding erythema. Dressing is intact. There is also superficial wound in the left leg and foot.. Musculoskeletal: Mild tenderness at the left hip groin joint. No Tenderness to Palpation of Joints or Extremities Neurological: Cranial nerves II-XII grossly intact, Deep Tendon Reflexes 2+/4 and Symmetrical, Neuro grossly intact Psych/Mental Status: Normal Affect, Appropriate. - Physical Exam Vitals/I&O's: Vital Signs Temp Pulse Resp BP Pulse Ox 99.8 F H 108 H 18 103/64 100 06/24/20 09:20 06/24/20 14:21 06/24/20 09:20 06/24/20 09:20 06/24/20 09:20 Oxygen Delivery Method Room Air Weight: 125 lb 10.616 oz Body Mass Index (BMI) 20.2 Finger Stick Blood Glucose 103 Intake and Output for Last 24 Hours 06/22/20 06/23/20 06/24/20 23:59 23:59 23:59 Intake Total 1365 / 1365 3310 / 3310 Output Total 550 / 550 Balance 1365 / 1365 2760 / 2760 Microbiology Past 72 Hours 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 - Preliminary 06/23/20 20:45 Blood Culture (Wb) - Anticubital Left Blood Culture - Preliminary 06/23/20 21:15 Urine Catheter - Funk Urine Culture - Preliminary Presumptive E. coli 06/23/20 21:15 Mucosa - Nose SARS-CoV-2 Antigen (Rapid) - Final Laboratory Results 06/23/20 20:43: D-Dimer Quant (PE/DVT) 2.68 H* 06/23/20 20:45: WBC 20.5 H, RBC 4.79, Hgb 13.7, Hct 43.2, MCV 90.2, MCH 28.6, MCHC 31.7 L, RDW Std Deviation 62.5 H, RDW Coeff of Jonathan 19.9 H, Plt Count 343, MPV 8.9, Immature Gran % (Auto) 1.200 H, Neut % (Auto) 85.9 H, Lymph % (Auto) 4.2 L, [place] % (Auto) 5.6, Eos % (Auto) 2.6, Baso % (Auto) 0.5, Absolute Neuts (auto) 17.6 H, Absolute Lymphs (auto) 0.85, Nucleated RBC % 0 06/23/20 20:45: PT 13.0, INR 1.0, APTT 30.1 06/23/20 20:45: Sodium 149 H, Potassium 2.7 L*, Chloride 112 H, Carbon Dioxide 19.0 L, Anion Gap 18 H, BUN 20 H, Creatinine 0.90, Estim Creat Clear Calc 50.57, Est GFR (MDRD) Af Amer 79, Est GFR (MDRD) Non-Af 65, BUN/Creatinine Ratio 22.1 H , Glucose 160 H, Calcium 9.2, Total Bilirubin 0.70, AST 87 H, ALT 105 H, Alkaline Phosphatase 293 H, Total Creatine Kinase 287 H, Troponin I < 0.015, Total Protein 8.3 H, Albumin 2.9 L, Globulin 5.4 H, Albumin/Globulin Ratio 0.5 L 06/23/20 20:45: Lactic Acid 3.4 H* 06/23/20 20:45: Ethyl Alcohol 109.0 06/23/20 20:45: Lipase 867 H 06/23/20 21:15: Urine Color Yellow, Urine Clarity Clear, Urine pH 5.0, Ur Specific [place] 1.015, Urine Protein 100 H, Urine Glucose (UA) Normal, Urine Ketones 50 H, Urine Occult Blood 50 H, Urine Nitrite Negative, Urine Bilirubin 1 H, Urine Urobilinogen 4 H, Ur Leukocyte Esterase 25 H, Urine RBC 0 SEEN, Urine WBC 5-10 SEEN, Ur Squamous Epith Cells 0-5 SEEN, Amorphous Sediment 3+, Urine Bacteria 1+, Urine Mucus 0 SEEN 06/24/20 01:13: Lactic Acid 1.6 06/24/20 07:29: WBC 15.9 H, RBC 3.63 L, Hgb 10.3 L, Hct 32.6 L, MCV 89.8, MCH 28.4, MCHC 31.6 L, RDW Std Deviation 62.9 H, RDW Coeff of Jonathan 19.8 H, Plt Count 220, MPV 8.8, Immature Gran % (Auto) 0.800, Neut % (Auto) 89.7 H, Lymph % (Auto) 3.5 L, [place] % (Auto) 5.5, Eos % (Auto) 0.2, Baso % (Auto) 0.3, Absolute Neuts (auto) 14.3 H, Absolute Lymphs (auto) 0.55 L, Nucleated RBC % 0 06/24/20 07:29: Sodium 148 H, Potassium 4.2, Chloride 117 H, Carbon Dioxide 23.0, Anion Gap 8, BUN 14, Creatinine 0.82, Estim Creat Clear Calc 55.80, Est GFR (MDRD) Af Amer 88, Est GFR (MDRD) Non-Af 73, BUN/Creatinine Ratio 17.0, Glucose 241 H, Calcium 7.6 L 06/24/20 07:29: TSH 2.67 Current Medications Dicyclomine HCl (Dicyclomine 10 Mg Capsule) 20 mg PO Q6H PRN PRN PRN Reason: abdominal discomfort Enoxaparin Sodium (Enoxaparin 40 Mg/0.4 Ml Syringe) 40 mg SC DAILY [facility] Last Admin: 06/24/20 09:22 Dose: 40 mg Documented by: Folic Acid (Folic Acid 1 Mg Tablet) 1 mg PO DAILY@0800 [facility] Last Admin: 06/24/20 09:06 Dose: 1 mg Documented by: Gabapentin (Gabapentin 300 Mg Capsule) 300 mg PO Q8H PRN PRN PRN Reason: moderate to severe anxiety Hydroxyzine Pamoate (Hydroxyzine Crystal 25 Mg Capsule) 50 mg PO Q4H PRN PRN PRN Reason: mild anxiety Potassium Chloride 40 meq/ (Sodium Chloride) 1,020 mls @ 100 mls/hr IV .[id number] [facility] Last Admin: 06/24/20 12:58 Dose: 100 mls/hr Documented by: Vancomycin IV Pharmacy to Dose (1 ea/ Sodium Chloride) 500 mls @ 250 mls/hr IV X1 PRN; Protocol PRN Reason: Rx to Dose Piperacillin Sod/Tazobactam (Sod 3.375 gm/ Sodium Chloride) 50 mls @ 12.5 mls/hr IV Q8 [facility] Last Admin: 06/24/20 14:15 Dose: 12.5 mls/hr Documented by: Vancomycin HCl () 500 mg in 100 mls @ 100 mls/hr IV Q12H [facility] Last Infusion: 06/24/20 11:53 Dose: Infused Documented by: L-Arginine/L-Glutamine/Calcium HMB (Timothy (Unflavored) Packet) 1 packet PO BIDCM [facility] Loperamide HCl (Loperamide 2 Mg Capsule) 2 mg PO Q4H PRN PRN PRN Reason: LOOSE STOOLS Metoprolol Tartrate (Metoprolol Tartrate 25 Mg Tablet) 12.5 mg PO BID [facility] Morphine Sulfate (Morphine 2 Mg/Ml Syringe) 2 mg IV Q3H PRN PRN PRN Reason: Pain Score 6-10 Last Admin: 06/24/20 05:34 Dose: 1 mg Documented by: Nicotine (Nicotine 14 Mg Patch) 14 mg TD DAILY [facility] Last Admin: 06/24/20 09:22 Dose: Not Given Documented by: Nutritional Formula (Lactose Free) (Glucerna Shake 120 Ml Liquid) 120 ml PO 4X/DAY [facility] Ondansetron HCl (Ondansetron 4 Mg/2 Ml Vial) 4 mg IV Q8H PRN PRN PRN Reason: NAUSEA/VOMITING Ondansetron HCl (Ondansetron 8 Mg Tablet) 8 mg PO Q8H PRN PRN PRN Reason: NAUSEA Oxycodone HCl (Oxycodone 5 Mg Tablet) 5 mg PO Q8H PRN PRN PRN Reason: Pain Score 6-10 Last Admin: 06/24/20 04:28 Dose: 5 mg Documented by: Phenobarbital (Phenobarbital 32.4 Mg Tablet) 97.2 mg PO Q4H [facility]; Taper Stop: 06/28/20 08:29 Last Admin: 06/24/20 13:06 Dose: 97.2 mg Documented by: Senna/Docusate Sodium (Senna/Docusate Sodium 1 Tablet) 2 tablet PO BID PRN PRN PRN Reason: Constipation Sodium Chloride (0.9% Saline Lock 10 Ml Syringe) 10 - 40 ml IV UD PRN PRN Reason: SALINE FLUSH Thiamine HCl (Thiamine Hydrochloride 100 Mg Tablet) [facility] Last Admin: 06/24/20 09:06 Dose: 100 mg Documented by: Trazodone HCl (Trazodone 100 Mg Tablet) 100 mg PO QHS PRN PRN Reason: INSOMNIA Assessment/Plan This patient was seen in conjunction with BERRY PICKER MACHINE OPERATORDonna. I have independently interviewed and examined the patient and reviewed pertinent history, examination findings, laboratory and plan of management. I have reviewed the note and agree with the documented findings with the few additional points. In brief, patient is admitted for severe sepsis secondary to infected and necrotic right hip wound and acute cystitis. Urine culture shows E. coli. Orthopedic surgery is consulted. Patient had left hip arthroplasty in January 2020. On IV vancomycin and Zosyn. She is also history of chronic alcohol use and dependence. History is not reliable. Rest of the comorbidities including recurrent alcoholic pancreatitis, hypertension, anxiety and depression, bipolar disorder, hypothyroidism, chronic cigarette smoking and moderate protein calorie malnutrition: As mentioned above. I have discussed my assessment with BERRY PICKER MACHINE OPERATORDonna and orders have been reviewed. Inpatient E&M: 70301 Subs Hosp L2
[2020-06-24 15:50] LABS: Thyroid Stim Hormone (TSH) 2.67 uIU/mL (0.358-3.74)
--- NOTE | 2020-06-24 15:56 | PCM.NTREPORT ---
Nutrition Therapy Report - History Nutrition Services has been consulted to:: Manage nutrient details of diet order Current diet / nutrition support order:: Regular diet with 120 ml ensure enlive 4 times per day on medpass - Anthropometric Measurements Height:: 5 ft 6 in Weight:: 57 kg Body Mass Index (BMI):: 20.2 - Relevant Labs Relevant Labs:: WBC 15.9 K/mm3 (4.4-11.0) H 06/24/20 07:29 RBC 3.63 M/mm3 (4.2-5.4) L 06/24/20 07:29 Hgb 10.3 g/dL (12.0-15.0) L 06/24/20 07:29 Hct 32.6 % (37-47) L 06/24/20 07:29 MCHC 31.6 g/dL (32-36) L 06/24/20 07:29 RDW Std Deviation 62.9 fl (35.1-43.9) H 06/24/20 07:29 RDW Coeff of Jonathan 19.8 % (11.6-14.6) H 06/24/20 07:29 Immature Gran % (Auto) 1.200 % (0.0-0.9) H 06/23/20 20:45 Neut % (Auto) 89.7 % (47-70) H 06/24/20 07:29 Lymph % (Auto) 3.5 % (19-41) L 06/24/20 07:29 Absolute Neuts (auto) 14.3 X10^3/uL (2.0-7.7) H 06/24/20 07:29 Absolute Lymphs (auto) 0.55 X10^3/uL (0.83-4.51) L 06/24/20 07:29 D-Dimer Quant (PE/DVT) 2.68 FEU/ug/m (0.27-0.49) H* 06/23/20 20:43 Sodium 148 mmol/L (136-145) H 06/24/20 07:29 Potassium 2.7 mmol/L (3.5-5.1) L* 06/23/20 20:45 Chloride 117 mmol/L (98-107) H 06/24/20 07:29 Carbon Dioxide 19.0 mmol/L (21.0-32.0) L 06/23/20 20:45 Anion Gap 18 (5-15) H 06/23/20 20:45 BUN 20 mg/dL (7-18) H 06/23/20 20:45 BUN/Creatinine Ratio 22.1 RATIO (10-20) H 06/23/20 20:45 Glucose 241 mg/dL (74-106) H 06/24/20 07:29 Lactic Acid 3.4 mmol/L (0.4-1.9) H* 06/23/20 20:45 Calcium 7.6 mg/dL (8.5-10.1) L 06/24/20 07:29 AST 87 U/L (15-37) H 06/23/20 20:45 ALT 105 U/L (13-56) H 06/23/20 20:45 Alkaline Phosphatase 293 U/L (45-117) H 06/23/20 20:45 Total Creatine Kinase 287 U/L (26-192) H 06/23/20 20:45 Total Protein 8.3 g/dL (6.4-8.2) H 06/23/20 20:45 Albumin 2.9 g/dL (3.2-5.0) L 06/23/20 20:45 Globulin 5.4 g/dL (2.2-4.2) H 06/23/20 20:45 Albumin/Globulin Ratio 0.5 RATIO (0.9-2.4) L 06/23/20 20:45 Lipase 867 U/L (73-393) H 06/23/20 20:45 - Assessment Food / Nutrition-Related History:: Blood glucose levels high 241, 272 and warrant carb-controlled diet if they remain elevated despite HgbA1C in april 2020 6.4%. Pt reports not much wt loss UBW~130 lbs; calculated~3-4% wt loss x past 1-2 months. As per EMR review wt ~1 year ago was 130 lbs; so wt does appear overall stable but, intake is compromised less than 50% of breakfast tray noted this day and pt does have physical signs of moderate fat/muscle wasting in the face and clavicle +NFPA. Pt with pressure injuries to R hip and BL heels that warrant Timothy for wound healing. LLE 2+ pitting edema and RLE 1+ pitting edema. - Nutrition Diagnosis Problem / Etiology / Signs & Symptoms (PES):: Moderate pro/kam malnutrition in the context of social circumstance r/t to ETOH abuse as evidenced by less than 50% of meals/est. nutrition needs x past 5-7 days and moderate muscle/fat wasting in the face and clavicle; +NFPA. Evidence of Malnutrition Exists:: Yes Moderate PCM:: Social & Environmental circumstances - Nutrition Intervention Nutrition Prescription:: Estimated Nutrition Needs~[id number] kcal and ~60-70 gm protein - Food / Nutrient Delivery Interventions Summary of nutrition intervention:: Timothy 1 packet BID ordered. Changed ensure enlive w/ medpass to glucerna shake 120 ml 4 times per day. Ensure Pudding BID w/ meals. Monitor need to restrict carbohydrates as intake improves at meals. Nutrition support ordered as / adjusted to:: No nutrition support. Nutrition education provided?: Yes - MNT Monitoring Further MNT monitoring and evaluation required?: Yes MNT Follow-up in:: 3-5 days
[2020-06-24] MEDS: Metoprolol Tartrate 25 MG Tablet 12.5 MG PO ×2 (17:24→21:03)
[2020-06-24] MEDS: Juven (unflavored) Packet 1 PACKET PO (18:34)
[2020-06-24] MEDS: Glucerna Shake 120 ML LIQUID PO (21:04)
[2020-06-24] MEDS: Loperamide 2 MG Capsule PO (22:10)
[2020-06-24] MEDS: Menthol/Lanolin/Calamine/Znox 113 GM Tube 1 APPLIC TOPICAL (22:12)
[2020-06-25] VITALS (13 sets, daily range): BP systolic 113–138; BP diastolic 64–81; PULSE 91–122; RESP 14–18; TEMP 36.8–37.7; O2SAT 97–100
[2020-06-25] MEDS: Phenobarbital 32.4 MG Tablet PO ×6 (00:27→21:10)
[2020-06-25] MEDS: Menthol/Lanolin/Calamine/Znox 113 GM Tube 1 APPLIC TOPICAL ×3 (05:18→21:11)
[2020-06-25] MEDS: Folic Acid 1 MG Tablet PO (08:25)
[2020-06-25] MEDS: Thiamine Hydrochloride 100 MG Tablet PO (08:25)
[2020-06-25] MEDS: Juven (unflavored) Packet 1 PACKET PO ×2 (08:25→16:30)
[2020-06-25] MEDS: Enoxaparin 40 MG/0.4 ML Syringe SC (10:01)
[2020-06-25] MEDS: Metoprolol Tartrate 25 MG Tablet PO ×2 (10:01→21:10)
[2020-06-25 10:15] LABS: Hematocrit 29.7 % (37-47); Hemoglobin 9.6 g/dL (12.0-15.0); Mean Corp Hgb Conc 32.3 g/dL (32-36); Mean Corpuscular Volume 89.7 fL (81-99); Mean Platelet Vol. 9.3 fl (6.2-12.0); Platelet Count 175 K/mm3 (150-450); RBC Distribution Width CV 19.7 % (11.6-14.6); RBC Distribution Width SD 61.9 fl (35.1-43.9); Red Blood Count 3.31 M/mm3 (4.2-5.4); White Blood Count 7.4 K/mm3 (4.4-11.0)
[2020-06-25 10:29] LABS: Anion Gap 4 (5-15); BUN 11 mg/dL (7-18); BUN/Creat Ratio 20.1 RATIO (10-20); Calcium,Total 7.7 mg/dL (8.5-10.1); Chloride 119 mmol/L (98-107); Creatinine, Serum 0.55 mg/dL (0.55-1.02); EST Glomerular Filtration Rate 116 mL/min (>60); Est Glom Filt Rate - Afr Amer 141 mL/min (>60); Estimated Creatinine Clearance 45.76 ml/min; Glucose 245 mg/dL (74-106); Potassium 4.3 mmol/L (3.5-5.1); Sodium Level 147 mmol/L (136-145)
[2020-06-25 10:36] LABS: Vancomycin, Trough Level 7.3 ug/mL (5.0-15.0)
[2020-06-25] MEDS: Glucerna Shake 120 ML LIQUID PO ×3 (11:22→21:10)
[2020-06-25] MEDS: Vancomycin IV 500 MG/100 ML BAG 100 MG IV (11:25)
--- NOTE | 2020-06-25 12:51 | PCM.RX.CS ---
Consult Pharmacy has been consulted to manage selected antiobiotic: Vancomycin Type of Consult: Follow-up Suspected Infection: Sepsis Prior Doses of Antibiotics Received/Current Regimen: On 500mg iv q12h. Labs: Sodium 147 mmol/L (136-145) H 06/25/20 10:00 Potassium 4.3 mmol/L (3.5-5.1) 06/25/20 10:00 Chloride 119 mmol/L (98-107) H 06/25/20 10:00 Carbon Dioxide 24.0 mmol/L (21.0-32.0) 06/25/20 10:00 Anion Gap 4 (5-15) L 06/25/20 10:00 BUN 11 mg/dL (7-18) 06/25/20 10:00 Creatinine 0.55 mg/dL (0.55-1.02) 06/25/20 10:00 Est GFR (MDRD) Af Amer 141 mL/min (>60) 06/25/20 10:00 Est GFR (MDRD) Non-Af 116 mL/min (>60) 06/25/20 10:00 BUN/Creatinine Ratio 20.1 RATIO (10-20) H 06/25/20 10:00 Glucose 245 mg/dL (74-106) H 06/25/20 10:00 Vancomycin Trough 7.3 ug/mL (5.0-15.0) 06/25/20 10:00 Microbiology: Microbiology 06/23/20 21:15 Urine Catheter - Funk Urine Culture - Final Presumptive E. coli 06/24/20 16:30 Stool C. difficile DNA Amplification - Final 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 - Preliminary 06/23/20 20:45 Blood Culture (Wb) - Anticubital Left Blood Culture - Preliminary 06/23/20 21:15 Mucosa - Nose SARS-CoV-2 Antigen (Rapid) - Final Weight used for dosin kg Estimated Creatinine Clearance: 83 ml/min Goal Trough: 15-20 mcg/mL Pharmacy Plan for Drug Dosing: Trough level today was 7.3 (goal range 15-20mcg/ml). Renal CrCl improved from 51ml/min to 83ml/min. Will increase dose to 1gm iv q12h. Another trough level has been ordered for 06.27.20 before 4th dose of this new regimen. Pharmacy Service will continue to monitor and adjust dosing as required. Follow-Up Labs: Trough Vancomycin - 1.. 0930 before 1000 dose
--- NOTE | 2020-06-25 13:40 | PCM.PROGNOTE ---
<ZebDonna [employer] - Last Filed: 06/25/20 13:50> Patient Problems: Active and Suspected Problems Severe sepsis (Acute) Subjective: Patient seen and examined. Intermittently drowsy this morning. Denies current symptoms or complaints. - Physical Exam Vitals/I&O's: Vital Signs Temp Pulse Resp BP Pulse Ox 98.7 F 97 16 129/75 H 97 06/25/20 12:46 06/25/20 12:46 06/25/20 12:46 06/25/20 12:46 06/25/20 12:46 Oxygen Delivery Method Room Air Weight: 125 lb 10.616 oz Body Mass Index (BMI) 20.2 Finger Stick Blood Glucose 103 Intake and Output for Last 24 Hours 06/23/20 06/24/20 06/25/20 23:59 23:59 23:59 Intake Total 1365 / 1365 5563.33 / 5563.33 1890 / 1890 Output Total 1150 / 1150 1250 / 1250 Balance 1365 / 1365 4413.33 / 4413.33 640 / 640 General: Alert, Cooperative, No apparent distress HEENT: Atraumatic, PERRLA, EOMI, Normocephalic Oral: Dry Mucosa Neck: Supple, No JVD, Negative Carotid Bruits Lungs: Clear to auscultation, Normal air movement Cardiovascular: Regular rate, No murmurs Abdomen: Bowel Sounds Present, Soft, Non Tender, Non-Distended Extremities: No clubbing, No cyanosis, No edema, Capillary Refill Less than 3 Seconds Skin: No rashes, No breakdown, - - Right hip wound, dressing intact Musculoskeletal: No Tenderness to Palpation of Joints or Extremities Neurological: Cranial nerves II-XII grossly intact, Neuro grossly intact Psych/Mental Status: Flat Affect Microbiology Past 72 Hours 06/23/20 21:15 Urine Catheter - Funk Urine Culture - Final Presumptive E. coli 06/24/20 16:30 Stool C. difficile DNA Amplification - Final 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 - Preliminary 06/23/20 20:45 Blood Culture (Wb) - Anticubital Left Blood Culture - Preliminary 06/23/20 21:15 Mucosa - Nose SARS-CoV-2 Antigen (Rapid) - Final Laboratory Results 06/24/20 07:29: TSH 2.67 06/25/20 10:00: Vancomycin Trough 7.3 06/25/20 10:00: WBC 7.4, RBC 3.31 L, Hgb 9.6 L, Hct 29.7 L, MCV 89.7, MCH 29.0, MCHC 32.3, RDW Std Deviation 61.9 H, RDW Coeff of Jonathan 19.7 H, Plt Count 175, MPV 9.3 06/25/20 10:00: Sodium 147 H, Potassium 4.3, Chloride 119 H, Carbon Dioxide 24.0, Anion Gap 4 L, BUN 11, Creatinine 0.55, Estim Creat Clear Calc 45.76, Est GFR (MDRD) Af Amer 141, Est GFR (MDRD) Non-Af 116, BUN/Creatinine Ratio 20.1 H, Glucose 245 H, Calcium 7.7 L Current Medications Calamine/Phenol (Menthol/Lanolin/Calamine/Znox 113 Gm Tube) 1 applic TOPICAL TID [facility]; Protocol Last Admin: 06/25/20 05:18 Dose: 1 applicatio Documented by: Dicyclomine HCl (Dicyclomine 10 Mg Capsule) 20 mg PO Q6H PRN PRN PRN Reason: abdominal discomfort Enoxaparin Sodium (Enoxaparin 40 Mg/0.4 Ml Syringe) 40 mg SC DAILY [facility] Last Admin: 06/25/20 10:01 Dose: 40 mg Documented by: Folic Acid (Folic Acid 1 Mg Tablet) 1 mg PO DAILY@0800 [facility] Last Admin: 06/25/20 08:25 Dose: 1 mg Documented by: Gabapentin (Gabapentin 300 Mg Capsule) 300 mg PO Q8H PRN PRN PRN Reason: moderate to severe anxiety Hydroxyzine Pamoate (Hydroxyzine Crystal 25 Mg Capsule) 50 mg PO Q4H PRN PRN PRN Reason: mild anxiety Vancomycin IV Pharmacy to Dose (1 ea/ Sodium Chloride) 500 mls @ 250 mls/hr IV X1 PRN; Protocol PRN Reason: Rx to Dose Piperacillin Sod/Tazobactam (Sod 3.375 gm/ Sodium Chloride) 50 mls @ 12.5 mls/hr IV Q8 [facility] Last Infusion: 06/25/20 09:17 Dose: Infused Documented by: Vancomycin HCl (Vancomycin) 1,000 mg in 200 mls @ 200 mls/hr IV Q12H [facility] L-Arginine/L-Glutamine/Calcium HMB ([facility] (Unflavored) Packet) [facility] Last Admin: 06/25/20 08:25 Dose: 1 packet Documented by: Loperamide HCl (Loperamide 2 Mg Capsule) 2 mg PO Q4H PRN PRN PRN Reason: LOOSE STOOLS Last Admin: 06/24/20 22:10 Dose: 2 mg Documented by: Metoprolol Tartrate (Metoprolol Tartrate 25 Mg Tablet) 25 mg PO BID [facility] Last Admin: 06/25/20 10:01 Dose: 25 mg Documented by: Morphine Sulfate (Morphine 2 Mg/Ml Syringe) 2 mg IV Q3H PRN PRN PRN Reason: Pain Score 6-10 Last Admin: 06/24/20 05:34 Dose: 1 mg Documented by: Nicotine (Nicotine 14 Mg Patch) 14 mg TD DAILY [facility] Last Admin: 06/25/20 10:02 Dose: Not Given Documented by: Nutritional Formula (Lactose Free) (Glucerna Shake 120 Ml Liquid) 120 ml PO 4X/DAY [facility] Last Admin: 06/25/20 11:22 Dose: 120 ml Documented by: Ondansetron HCl (Ondansetron 4 Mg/2 Ml Vial) 4 mg IV Q8H PRN PRN PRN Reason: NAUSEA/VOMITING Ondansetron HCl (Ondansetron 8 Mg Tablet) 8 mg PO Q8H PRN PRN PRN Reason: NAUSEA Oxycodone HCl (Oxycodone 5 Mg Tablet) 5 mg PO Q8H PRN PRN PRN Reason: Pain Score 6-10 Last Admin: 06/24/20 18:34 Dose: 5 mg Documented by: Phenobarbital (Phenobarbital 32.4 Mg Tablet) 64.8 mg PO Q4H [facility]; Taper Stop: 06/28/20 08:29 Last Admin: 06/25/20 12:48 Dose: 64.8 mg Documented by: Senna/Docusate Sodium (Senna/Docusate Sodium 1 Tablet) 2 tablet PO BID PRN PRN PRN Reason: Constipation Sodium Chloride (0.9% Saline Lock 10 Ml Syringe) 10 - 40 ml IV UD PRN PRN Reason: SALINE FLUSH Thiamine HCl (Thiamine Hydrochloride 100 Mg Tablet) [facility] Last Admin: 06/25/20 08:25 Dose: 100 mg Documented by: Trazodone HCl (Trazodone 100 Mg Tablet) 100 mg PO QHS PRN PRN Reason: INSOMNIA Medical Necessity - Tobacco Use Smoking Status: Current some day smoker Assessment/Plan All Active Problems Severe sepsis (Acute) 1. Severe sepsis secondary acute E. coli cystitis with associated GNR bacteremia-urine culture growing E. coli. Blood cultures preliminary growing E. coli. Continue IV Zosyn and IV vancomycin pending wound cultures. Consult ID. 2. Right hip necrotic wound-possibly contributing to #1. Dr. Saeed consulted. Keep covered with dry dressing, change daily and PRN. Wound RN consult. Obtain wound culture if any drainage or following I&D. 3. Chronic alcohol dependence-medical stabilization per protocol. CIWA. Thiamine, multivitamin, folic acid. 4. History of recurrent alcoholic pancreatitis, chronically elevated lipase and liver enzymes-at baseline. 5. Hypertension-previously on atenolol. Patient no longer on medication. Will initiate low-dose metoprolol given tachycardia. 6. Debility with recurrent falls-PT/OT. Fall precautions. 7. Depression/bipolar-previously referred to behavioral health. Not on home medication regimen. Recommend outpatient follow-up. 8. Hypothyroidism-has not been taking Synthroid. TSH 2.6. 9. Tobacco dependence-encouraged cessation. 10. Moderate protein calorie malnutrition- client services administrator consult. DVT prophylaxis-Lovenox subcu This patient was seen by CLAUDIA Roblero under the supervision of Dr. Jacome. <Salbador Jacome - Last Filed: 06/25/20 15:57> Subjective: Patient has mild drowsiness in the morning but she woke up late. She responded appropriately to my questions. Mild pain over the right hip and left hip on movement. Physical exam General: Confused, disoriented to time. HEENT: Atraumatic, PERRLA, EOMI, Normocephalic Oral: No Gingival or Mucosal Lesions/ Ulcerations Neck: Supple, No JVD, Negative Carotid Bruits Lungs: Air entry diminished in bilateral lung bases. No crepitation/rhonchi Cardiovascular: Regular rate, Regular Rhythm, Normal S1, Normal S2, No murmurs Abdomen: Bowel Sounds Present, Soft, Non Tender, Non-Distended : No renal angle tenderness. No suprapubic tenderness. Extremities: No edema, Capillary Refill Less than 3 Seconds Skin: Right hip large necrotic wound with surrounding erythema. Dressing is wet with a soakage. There is also superficial wound in the left leg and foot. Musculoskeletal: Mild tenderness at the left hip groin joint. No Tenderness to Palpation of Joints or Extremities Neurological: Cranial nerves II-XII grossly intact, Deep Tendon Reflexes 2+/4 and Symmetrical, Neuro grossly intact Psych/Mental Status: Normal Affect, Appropriate. - Physical Exam Vitals/I&O's: Vital Signs Temp Pulse Resp BP Pulse Ox 98.7 F 97 16 129/75 H 97 06/25/20 12:46 06/25/20 12:46 06/25/20 12:46 06/25/20 12:46 06/25/20 12:46 Oxygen Delivery Method Room Air Weight: 125 lb 10.616 oz Body Mass Index (BMI) 20.2 Finger Stick Blood Glucose 103 Intake and Output for Last 24 Hours 06/23/20 06/24/20 06/25/20 23:59 23:59 23:59 Intake Total 1365 / 1365 5563.33 / 5563.33 1890 / 1890 Output Total 1150 / 1150 1250 / 1250 Balance 1365 / 1365 4413.33 / 4413.33 640 / 640 Microbiology Past 72 Hours 06/23/20 21:15 Urine Catheter - Funk Urine Culture - Final Presumptive E. coli 06/24/20 16:30 Stool C. difficile DNA Amplification - Final 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 - Preliminary 06/23/20 20:45 Blood Culture (Wb) - Anticubital Left Blood Culture - Preliminary 06/23/20 21:15 Mucosa - Nose SARS-CoV-2 Antigen (Rapid) - Final Laboratory Results 06/25/20 10:00: Vancomycin Trough 7.3 06/25/20 10:00: WBC 7.4, RBC 3.31 L, Hgb 9.6 L, Hct 29.7 L, MCV 89.7, MCH 29.0, MCHC 32.3, RDW Std Deviation 61.9 H, RDW Coeff of Jonathan 19.7 H, Plt Count 175, MPV 9.3 06/25/20 10:00: Sodium 147 H, Potassium 4.3, Chloride 119 H, Carbon Dioxide 24.0, Anion Gap 4 L, BUN 11, Creatinine 0.55, Estim Creat Clear Calc 45.76, Est GFR (MDRD) Af Amer 141, Est GFR (MDRD) Non-Af 116, BUN/Creatinine Ratio 20.1 H, Glucose 245 H, Calcium 7.7 L Current Medications Calamine/Phenol (Menthol/Lanolin/Calamine/Znox 113 Gm Tube) 1 applic TOPICAL TID [facility]; Protocol Last Admin: 06/25/20 15:02 Dose: 1 applicatio Documented by: Dicyclomine HCl (Dicyclomine 10 Mg Capsule) 20 mg PO Q6H PRN PRN PRN Reason: abdominal discomfort Enoxaparin Sodium (Enoxaparin 40 Mg/0.4 Ml Syringe) 40 mg SC DAILY [facility] Last Admin: 06/25/20 10:01 Dose: 40 mg Documented by: Folic Acid (Folic Acid 1 Mg Tablet) 1 mg PO DAILY@0800 [facility] Last Admin: 06/25/20 08:25 Dose: 1 mg Documented by: Gabapentin (Gabapentin 300 Mg Capsule) 300 mg PO Q8H PRN PRN PRN Reason: moderate to severe anxiety Hydroxyzine Pamoate (Hydroxyzine Crystal 25 Mg Capsule) 50 mg PO Q4H PRN PRN PRN Reason: mild anxiety Vancomycin IV Pharmacy to Dose (1 ea/ Sodium Chloride) 500 mls @ 250 mls/hr IV X1 PRN; Protocol PRN Reason: Rx to Dose Piperacillin Sod/Tazobactam (Sod 3.375 gm/ Sodium Chloride) 50 mls @ 12.5 mls/hr IV Q8 [facility] Last Admin: 06/25/20 14:59 Dose: 12.5 mls/hr Documented by: Vancomycin HCl (Vancomycin) 1,000 mg in 200 mls @ 200 mls/hr IV Q12H [facility] L-Arginine/L-Glutamine/Calcium HMB (Timothy (Unflavored) Packet) 1 packet PO BIDCM [facility] Last Admin: 06/25/20 08:25 Dose: 1 packet Documented by: Loperamide HCl (Loperamide 2 Mg Capsule) 2 mg PO Q4H PRN PRN PRN Reason: LOOSE STOOLS Last Admin: 06/24/20 22:10 Dose: 2 mg Documented by: Metoprolol Tartrate (Metoprolol Tartrate 25 Mg Tablet) 25 mg PO BID [facility] Last Admin: 06/25/20 10:01 Dose: 25 mg Documented by: Morphine Sulfate (Morphine 2 Mg/Ml Syringe) 2 mg IV Q3H PRN PRN PRN Reason: Pain Score 6-10 Last Admin: 06/24/20 05:34 Dose: 1 mg Documented by: Nicotine (Nicotine 14 Mg Patch) 14 mg TD DAILY [facility] Last Admin: 06/25/20 10:02 Dose: Not Given Documented by: Nutritional Formula (Lactose Free) (Glucerna Shake 120 Ml Liquid) 120 ml PO 4X/DAY [facility] Last Admin: 06/25/20 15:19 Dose: Not Given Documented by: Ondansetron HCl (Ondansetron 4 Mg/2 Ml Vial) 4 mg IV Q8H PRN PRN PRN Reason: NAUSEA/VOMITING Ondansetron HCl (Ondansetron 8 Mg Tablet) 8 mg PO Q8H PRN PRN PRN Reason: NAUSEA Oxycodone HCl (Oxycodone 5 Mg Tablet) 5 mg PO Q8H PRN PRN PRN Reason: Pain Score 6-10 Last Admin: 06/24/20 18:34 Dose: 5 mg Documented by: Phenobarbital (Phenobarbital 32.4 Mg Tablet) 64.8 mg PO Q4H [facility]; Taper Stop: 06/28/20 08:29 Last Admin: 06/25/20 12:48 Dose: 64.8 mg Documented by: Senna/Docusate Sodium (Senna/Docusate Sodium 1 Tablet) 2 tablet PO BID PRN PRN PRN Reason: Constipation Sodium Chloride (0.9% Saline Lock 10 Ml Syringe) 10 - 40 ml IV UD PRN PRN Reason: SALINE FLUSH Thiamine HCl (Thiamine Hydrochloride 100 Mg Tablet) [facility] Last Admin: 06/25/20 08:25 Dose: 100 mg Documented by: Trazodone HCl (Trazodone 100 Mg Tablet) 100 mg PO QHS PRN PRN Reason: INSOMNIA Assessment/Plan This patient was seen in conjunction with [employer] AGENTDonna. I have independently interviewed and examined the patient and reviewed pertinent history, examination findings, laboratory and plan of management. I have reviewed the note and agree with the documented findings with the few additional points. In brief, patient is admitted for severe sepsis secondary to infected and necrotic right hip wound and acute cystitis. Urine culture presumptive E. coli [id number]. Orthopedic surgery is consulted. Patient had left hip arthroplasty in January 2020. On IV vancomycin and Zosyn to cover necrotic right hip wound and UTI. Both blood culture bottles aerobic and anaerobic growing gram-negative rods. ID and plastic surgery is consulted. She is also history of chronic alcohol use and dependence. History is not reliable. Intermittent drowsy and lethargy but patient wakes up. Rest of the comorbidities including recurrent alcoholic pancreatitis, hypertension, anxiety and depression, bipolar disorder, hypothyroidism, chronic cigarette smoking and moderate protein calorie malnutrition: As mentioned above. I have discussed my assessment with [employer] AGENTDonna and orders have been reviewed. Inpatient E&M: 94519 Subs Hosp L2
[2020-06-25] MEDS: Vancomycin IV 1,000 MG/200 ML BAG 200 MG IV (21:04)
--- NOTE | 2020-06-25 22:57 | PCM.CONS.GEN ---
Reason for Consult Date of Consultation: 06/25/20 Reason for Consultation: Necrotic pressure sore injury right hip/trochanteric area. REFERRING PHYSICIAN: Dr. Jacome. MANNEQUIN MAKER: Dr. Saeed. History of Present Illness: The patient is a 70 year old F with a significant history of fibromyalgia and chronic alcoholism who presents to the emergency department because she was found lying on the floor. Per patient she has been lying on the floor for 2 days. Her friend who has keys to her abode came in and called the paramedics. Reportedly when paramedics came there were faeces all over the floor of her abode. In the ED, her WBC was 20.5. Her Lactate was 3.4. Urinalysis was positive. She was started on Vancomycin and Zosyn. Her Alcohol level was 109 which is in the severe poisoning range. I was asked to evaluate this patient for surgical options for treatment. Past Medical History Past Medical History (Chronic Problems): Chronic Problems Debility (Chronic) Autoimmune pancreatitis (Chronic) Alcohol dependence (Chronic) Psoriatic arthritis (Chronic) Severe protein-calorie malnutrition (Chronic) HLD (hyperlipidemia) (Chronic) GERD (gastroesophageal reflux disease) (Chronic) Tobacco use (Chronic) Alcoholism (Chronic) Hepatic steatosis (Chronic) Alcoholic hepatitis (Chronic) Abnormal LFTs (Chronic) Alcoholic pancreatitis (Chronic) Alcohol abuse (Chronic) Hypertension (Chronic) Hypothyroidism (Chronic) Anxiety (Chronic) Fibromyalgia (Chronic) Dysphagia (Chronic) Rheumatoid arthritis (Chronic) never confirmed.....RA is negative.....tells me that she has psoriatic arthritis Psoriasis (Chronic) Chronic back pain (Chronic) osteoarthritis Delusional disorder (Chronic) Bipolar disorder (Chronic) Depression with H/o suicidal attempt (Chronic) Allergies nickel [Nickel] Allergy (Verified 06/23/20 19:56) Rash/autoimmune reactions prochlorperazine edisylate [From Compazine] Adverse Reaction (Verified 06/23/20 19:56) disoriented prochlorperazine maleate [From Compazine] Adverse Reaction (Verified 06/23/20 19:56) DISORIENTED CADMIUM Allergy (Uncoded 06/23/20 19:56) Rash AUTOIMMUNE RESPONSE Home Medications: Ambulatory Orders Medication Instructions Recorded NK 06/23/20 Surgical History: tonsillectomy, - - Recent left hip fracture with repair. Psychiatric History: Anxiety, Bipolar, Depression, - - Delusional disorder. SENIOR PORTFOLIO MANAGER History: No pertinent SENIOR PORTFOLIO MANAGER history Smoking Status: Current some day smoker - *Family History Maternal History Items: - - Reports autoimmune disease. Paternal History Items: - - Reports that her father from aspiration pneumonia at age 92. And her grandfather from pneumonia at age 32. She also notes that her father had exposure to nickel and had some diseases related but cannot give this information. Denied any history of heart disease, diabetes or cancer. Review of Systems Comment: Constitutional: Denies: Chills, Fever, Weight Change. HEENT: Denies: Head Aches, Sinus Congestion, Sinus Drainage. Cardiovascular: Reports: Edema. Denies: Chest Pain, Palpitations. Respiratory: Denies: Cough, Shortness of breath at rest, Sputum production. Gastrointestinal: Denies: Abdominal Pain, Nausea, Vomiting. Genitourinary: Denies: Dysuria. Musculoskeletal: Reports: Joint Pain - Diffuse joint pain of multiple areas.. Denies: Joint Tenderness. Skin: Reports: Wounds. Denies: Rash. Neurological: Denies: Numbness, Tingling, Focal weakness. Psychiatric: Denies: Anxiety, Depression, Homicidal Ideations, Suicidal Ideations. Hematologic/ Lymphatic: Denies: Easy Bruising, Easy Bleeding Patient Problems: Active and Suspected Problems Severe sepsis (Acute) - Physical Exam Vitals/I&O's: General: Alert, Uncooperative. HEENT: PERRLA, EOMI. Neck: Supple, Nontender. No cervical adenopathy. Lungs: Clear to auscultation. Cardiovascular: Tachycardic Abdomen: Soft, Nondistended. Extremities: Capillary Refill Less than 3 Seconds, Edema - Bilateral feet. Skin: Ulcer/ Wound - On the right hip/trochanteric area, is a necrotic pressure sore injury that is unstageable at this time. I suspect a Stage IV with extension to the underlying bone with associated muscle necrosis. The area of skin necrosis measures 9 x 11 cm. No fluctuance. No purulent drainage. There is surrounding eyrthema. Neurological: Cranial nerves II-XII grossly intact Psych/Mental Status: Normal Affect. Vital Signs Temp Pulse Resp BP Pulse Ox 99.9 F H 100 18 135/78 H 99 06/25/20 21:10 06/25/20 21:10 06/25/20 21:10 06/25/20 21:10 06/25/20 21:10 Oxygen Delivery Method Room Air Weight: 125 lb 10.616 oz Body Mass Index (BMI) 20.2 Finger Stick Blood Glucose 103 Intake and Output for Last 24 Hours 06/23/20 06/24/20 06/25/20 23:59 23:59 23:59 Intake Total 1365 / 1365 5563.33 / 5563.33 3460 / 3460 Output Total 1150 / 1150 1700 / 1700 Balance 1365 / 1365 4413.33 / 4413.33 1760 / 1760 Microbiology Past 72 Hours 06/23/20 21:15 Urine Catheter - Funk Urine Culture - Final Presumptive E. coli 06/24/20 16:30 Stool C. difficile DNA Amplification - Final 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 - Preliminary 06/23/20 20:45 Blood Culture (Wb) - Anticubital Left Blood Culture - Preliminary 06/23/20 21:15 Mucosa - Nose SARS-CoV-2 Antigen (Rapid) - Final Laboratory Results 06/25/20 10:00: Vancomycin Trough 7.3 06/25/20 10:00: WBC 7.4, RBC 3.31 L, Hgb 9.6 L, Hct 29.7 L, MCV 89.7, MCH 29.0, MCHC 32.3, RDW Std Deviation 61.9 H, RDW Coeff of Jonathan 19.7 H, Plt Count 175, MPV 9.3 06/25/20 10:00: Sodium 147 H, Potassium 4.3, Chloride 119 H, Carbon Dioxide 24.0, Anion Gap 4 L, BUN 11, Creatinine 0.55, Estim Creat Clear Calc 45.76, Est GFR (MDRD) Af Amer 141, Est GFR (MDRD) Non-Af 116, BUN/Creatinine Ratio 20.1 H, Glucose 245 H, Calcium 7.7 L Current Medications Calamine/Phenol (Menthol/Lanolin/Calamine/Znox 113 Gm Tube) 1 applic TOPICAL TID [facility]; Protocol Last Admin: 06/25/20 21:11 Dose: 1 applicatio Documented by: Dicyclomine HCl (Dicyclomine 10 Mg Capsule) 20 mg PO Q6H PRN PRN PRN Reason: abdominal discomfort Enoxaparin Sodium (Enoxaparin 40 Mg/0.4 Ml Syringe) 40 mg SC DAILY [facility] Last Admin: 06/25/20 10:01 Dose: 40 mg Documented by: Folic Acid (Folic Acid 1 Mg Tablet) 1 mg PO DAILY@0800 [facility] Last Admin: 06/25/20 08:25 Dose: 1 mg Documented by: Gabapentin (Gabapentin 300 Mg Capsule) 300 mg PO Q8H PRN PRN PRN Reason: moderate to severe anxiety Hydroxyzine Pamoate (Hydroxyzine Crystal 25 Mg Capsule) 50 mg PO Q4H PRN PRN PRN Reason: mild anxiety Vancomycin IV Pharmacy to Dose (1 ea/ Sodium Chloride) 500 mls @ 250 mls/hr IV X1 PRN; Protocol PRN Reason: Rx to Dose Piperacillin Sod/Tazobactam (Sod 3.375 gm/ Sodium Chloride) 50 mls @ 12.5 mls/hr IV Q8 [facility] Last Admin: 06/25/20 22:16 Dose: 12.5 mls/hr Documented by: Vancomycin HCl (Vancomycin) 1,000 mg in 200 mls @ 200 mls/hr IV Q12H [facility] Last Infusion: 06/25/20 22:18 Dose: Infused Documented by: L-Arginine/L-Glutamine/Calcium HMB (Timothy (Unflavored) Packet) 1 packet PO BIDCM [facility] Last Admin: 06/25/20 16:30 Dose: 1 packet Documented by: Loperamide HCl (Loperamide 2 Mg Capsule) 2 mg PO Q4H PRN PRN PRN Reason: LOOSE STOOLS Last Admin: 06/24/20 22:10 Dose: 2 mg Documented by: Metoprolol Tartrate (Metoprolol Tartrate 25 Mg Tablet) 25 mg PO BID [facility] Last Admin: 06/25/20 21:10 Dose: 25 mg Documented by: Morphine Sulfate (Morphine 2 Mg/Ml Syringe) 2 mg IV Q3H PRN PRN PRN Reason: Pain Score 6-10 Last Admin: 06/24/20 05:34 Dose: 1 mg Documented by: Nicotine (Nicotine 14 Mg Patch) 14 mg TD DAILY [facility] Last Admin: 06/25/20 10:02 Dose: Not Given Documented by: Nutritional Formula (Lactose Free) (Glucerna Shake 120 Ml Liquid) 120 ml PO 4X/DAY [facility] Last Admin: 06/25/20 21:10 Dose: 120 ml Documented by: Ondansetron HCl (Ondansetron 4 Mg/2 Ml Vial) 4 mg IV Q8H PRN PRN PRN Reason: NAUSEA/VOMITING Ondansetron HCl (Ondansetron 8 Mg Tablet) 8 mg PO Q8H PRN PRN PRN Reason: NAUSEA Oxycodone HCl (Oxycodone 5 Mg Tablet) 5 mg PO Q8H PRN PRN PRN Reason: Pain Score 6-10 Last Admin: 06/24/20 18:34 Dose: 5 mg Documented by: Phenobarbital (Phenobarbital 32.4 Mg Tablet) 64.8 mg PO Q4H [facility]; Taper Stop: 06/28/20 08:29 Last Admin: 06/25/20 21:10 Dose: 64.8 mg Documented by: Senna/Docusate Sodium (Senna/Docusate Sodium 1 Tablet) 2 tablet PO BID PRN PRN PRN Reason: Constipation Sodium Chloride (0.9% Saline Lock 10 Ml Syringe) 10 - 40 ml IV UD PRN PRN Reason: SALINE FLUSH Thiamine HCl (Thiamine Hydrochloride 100 Mg Tablet) 100 mg PO DAILYCM JAYLON Last Admin: 06/25/20 08:25 Dose: 100 mg Documented by: Trazodone HCl (Trazodone 100 Mg Tablet) 100 mg PO QHS PRN PRN Reason: INSOMNIA Assessment/Plan All Active Problems Pressure injury of trochanteric region of right hip, unstageable (Acute) Skin necrosis (Acute) Cystitis (Acute) Severe sepsis (Acute) 1. Necrotic pressure sore injury right hip/trochanteric area. 2. Sepsis. 3. Cystitis. 4. Alcohol abuse. 5. Smoker. Patient has a necrotic pressure sore injury right hip/trochanteric area that developed when she passed out for a couple of days. She has a history of alcohol abuse. In ED her WBC was 20.5. Her Lactate was 3.4. She was started on Vancomycin and Zosyn. Her WBC has improved to 7.4. Her Lactate has improved to 1.6. She also has an associated cystitis. It is unclear how deep the necrosis is from the pressure of being passed out for a couple of days. With her abnormal labs, I suspect extension to the bone with necrosis involving muscle. Will order a CT Right hip to look at the degree of injury. Recommend operative intervention with excision of the necrotic pressure sore injury right hip/trochanteric area. With suspicion of extension to the bone, a partial ostectomy for osteomyelitis will be done. There is the risk of underlying necrotic muscle that can lead to a life threatening necrotizing process. Postoperatively will begin wound care with the VAC. Soft tissue and bone will be sent to Pathology for analysis to evaluate for osteomyelitis and to Microbiology for culture. A positive culture will necessitate antibiotic therapy. May need moth exterminator IV antibiotics through a PICC line. If a PICC line is needed, she should be evaluated for a short stay at an [facility]. It would not be safe for IV access at home in a patient with alcohol abuse history. With the degree of sepsis, I anticipate increased metabolic demands. Will check a Prealbumin and encourage nutritional supplementation with protein to help the healing process. Will plan on operative intervention tomorrow under general anesthesia. After discharge, can followup at [facility]. If there is a plateau in the healing process, can proceed with delayed closure with skin graft or a muscle flap or a fasciocutaneous flap reconstruction. Patient was informed of the risks and complications of the procedure including alternatives to surgery. These were discussed with the patient personally. Patient did not look at me during this discussion and was not interested in surgery. Will discuss with her again tomorrow. I was told that sometimes she acts coherent and other times she acts confused probably secondary to the alcohol history. Encouraged patient to stop smoking as it may have deleterious effects on wound healing. Procedure Criteria Procedure Type: Elective COVID Risk Discussion: The surgeon/proceduralist and patient have discussed in detail the risk of exposure to and/or potential harm posed by the COVID-19 virus with having a surgery/procedure at this time versus the risk of delaying the surgery/procedure. It is not possible to know either the risk of delaying the surgery or procedure or chance of getting an infection with perfect accuracy, but a joint decision was made between the patient and the surgeon/proceduralist to proceed at this time with the scheduled surgery/procedure as indicated on the consent form. Inpatient E&M: 57451 Init Hosp L2 - ICD-10 - L89.210, I96, A41.9, N30.90, F10.10, F17.200
[2020-06-26] VITALS (14 sets, daily range): BP systolic 121–154; BP diastolic 54–102; PULSE 80–126; RESP 18; TEMP 36.6–37.9; O2SAT 95–99; BMI 20.2
[2020-06-26] MEDS: Phenobarbital 32.4 MG Tablet PO ×5 (00:08→20:24)
[2020-06-26] MEDS: Menthol/Lanolin/Calamine/Znox 113 GM Tube 1 APPLIC TOPICAL ×3 (05:58→22:18)
[2020-06-26 06:39] LABS: Hematocrit 31.9 % (37-47); Hemoglobin 10.2 g/dL (12.0-15.0); Mean Corpuscular Hgb 28.7 pg (27.0-32.0); Mean Corpuscular Volume 89.9 fL (81-99); Mean Platelet Vol. 9.3 fl (6.2-12.0); Platelet Count 186 K/mm3 (150-450); RBC Distribution Width CV 18.9 % (11.6-14.6); RBC Distribution Width SD 59.7 fl (35.1-43.9); Red Blood Count 3.55 M/mm3 (4.2-5.4); White Blood Count 9.5 K/mm3 (4.4-11.0)
[2020-06-26 07:03] LABS: Anion Gap 4 (5-15); BUN 12 mg/dL (7-18); BUN/Creat Ratio 24.9 RATIO (10-20); Calcium,Total 8.3 mg/dL (8.5-10.1); Chloride 111 mmol/L (98-107); Creatinine, Serum 0.48 mg/dL (0.55-1.02); EST Glomerular Filtration Rate 134 mL/min (>60); Est Glom Filt Rate - Afr Amer 163 mL/min (>60); Estimated Creatinine Clearance 45.76 ml/min; Glucose 128 mg/dL (74-106); Potassium 3.6 mmol/L (3.5-5.1); Sodium Level 143 mmol/L (136-145)
--- NOTE | 2020-06-26 07:54 | PCM.PN.HOSP ---
Patient Problems: Active and Suspected Problems Severe sepsis (Acute) Reason for Visit: Follow-up for right hip/trochanteric area infection with necrotic patch. Objective: Low-grade temperature 99.8. Heart rate in 100s. Blood pressure in normal range. Physical exam General: Intermittent confusion and disorientation. HEENT: Atraumatic, PERRLA, EOMI, Normocephalic Oral: No Gingival or Mucosal Lesions/ Ulcerations Neck: Supple, No JVD, Negative Carotid Bruits Lungs: Air entry diminished in bilateral lung bases. No crepitation/rhonchi Cardiovascular: Regular rate, Regular Rhythm, Normal S1, Normal S2, No murmurs Abdomen: Bowel Sounds Present, Soft, Non Tender, Non-Distended : No renal angle tenderness. No suprapubic tenderness. Extremities: No edema, Capillary Refill Less than 3 Seconds Skin: Right hip large necrotic wound with surrounding erythema. superficial wound in the left leg and foot. Musculoskeletal: Mild tenderness at the left hip groin joint. No Tenderness to Palpation of Joints or Extremities Neurological: Cranial nerves II-XII grossly intact, Deep Tendon Reflexes 2+/4 and Symmetrical, Neuro grossly intact Psych/Mental Status: Normal Affect, Appropriate. Vitals/I&O's: Vital Signs Temp Pulse Resp BP Pulse Ox 99.8 F H 109 H 18 154/76 H 99 06/26/20 03:05 06/26/20 03:05 06/26/20 03:05 06/26/20 03:05 06/26/20 07:28 Oxygen Delivery Method Room Air Weight: 125 lb 10.616 oz Body Mass Index (BMI) 20.2 Finger Stick Blood Glucose 103 Intake and Output for Last 24 Hours 06/24/20 06/25/20 06/26/20 23:59 23:59 23:59 Intake Total 5563.33 / 5563.33 3860 / 3860 50 / 50 Output Total 1150 / 1150 2150 / 2150 1225 / 1225 Balance 4413.33 / 4413.33 1710 / 1710 -1175 / -1175 Microbiology Past 72 Hours 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 - Preliminary 06/23/20 20:45 Blood Culture (Wb) - Anticubital Left Blood Culture - Final Escherichia coli 06/23/20 21:15 Urine Catheter - Funk Urine Culture - Final Presumptive E. coli 06/24/20 16:30 Stool C. difficile DNA Amplification - Final 06/23/20 21:15 Mucosa - Nose SARS-CoV-2 Antigen (Rapid) - Final Laboratory Results 06/25/20 10:00: Vancomycin Trough 7.3 06/25/20 10:00: WBC 7.4, RBC 3.31 L, Hgb 9.6 L, Hct 29.7 L, MCV 89.7, MCH 29.0, MCHC 32.3, RDW Std Deviation 61.9 H, RDW Coeff of Jonathan 19.7 H, Plt Count 175, MPV 9.3 06/25/20 10:00: Sodium 147 H, Potassium 4.3, Chloride 119 H, Carbon Dioxide 24.0, Anion Gap 4 L, BUN 11, Creatinine 0.55, Estim Creat Clear Calc 45.76, Est GFR (MDRD) Af Amer 141, Est GFR (MDRD) Non-Af 116, BUN/Creatinine Ratio 20.1 H, Glucose 245 H, Calcium 7.7 L 06/26/20 06:00: WBC 9.5, RBC 3.55 L, Hgb 10.2 L, Hct 31.9 L, MCV 89.9, MCH 28.7, MCHC 32.0, RDW Std Deviation 59.7 H, RDW Coeff of Jonathan 18.9 H, Plt Count 186, MPV 9.3 06/26/20 06:00: Sodium 143, Potassium 3.6, Chloride 111 H, Carbon Dioxide 28.0, Anion Gap 4 L, BUN 12, Creatinine 0.48 L, Estim Creat Clear Calc 45.76, Est GFR (MDRD) Af Amer 163, Est GFR (MDRD) Non-Af 134, BUN/Creatinine Ratio 24.9 H, Glucose 128 H, Calcium 8.3 L Current Medications Calamine/Phenol (Menthol/Lanolin/Calamine/Znox 113 Gm Tube) 1 applic TOPICAL TID [facility]; Protocol Last Admin: 06/26/20 05:58 Dose: 1 applicatio Documented by: Dicyclomine HCl (Dicyclomine 10 Mg Capsule) 20 mg PO Q6H PRN PRN PRN Reason: abdominal discomfort Folic Acid (Folic Acid 1 Mg Tablet) 1 mg PO DAILY@0800 [facility] Last Admin: 06/25/20 08:25 Dose: 1 mg Documented by: Gabapentin (Gabapentin 300 Mg Capsule) 300 mg PO Q8H PRN PRN PRN Reason: moderate to severe anxiety Hydroxyzine Pamoate (Hydroxyzine Crystal 25 Mg Capsule) 50 mg PO Q4H PRN PRN PRN Reason: mild anxiety Vancomycin IV Pharmacy to Dose (1 ea/ Sodium Chloride) 500 mls @ 250 mls/hr IV X1 PRN; Protocol PRN Reason: Rx to Dose Piperacillin Sod/Tazobactam (Sod 3.375 gm/ Sodium Chloride) 50 mls @ 12.5 mls/hr IV Q8 [facility] Last Admin: 06/26/20 05:58 Dose: 12.5 mls/hr Documented by: Vancomycin HCl (Vancomycin) 1,000 mg in 200 mls @ 200 mls/hr IV Q12H [facility] Last Infusion: 06/25/20 22:18 Dose: Infused Documented by: L-Arginine/L-Glutamine/Calcium HMB (Tim[facility] ([facility]flavored) [facility]) [facility] Last Admin: 06/25/20 16:30 Dose: 1 packet Documented by: Loperamide HCl (Loperamide 2 Mg Capsule) 2 mg PO Q4H PRN PRN PRN Reason: LOOSE STOOLS Last Admin: 06/24/20 22:10 Dose: 2 mg Documented by: Metoprolol Tartrate (Metoprolol Tartrate 25 Mg Tablet) 25 mg PO BID [facility] Last Admin: 06/25/20 21:10 Dose: 25 mg Documented by: Morphine Sulfate (Morphine 2 Mg/Ml Syringe) 2 mg IV Q3H PRN PRN PRN Reason: Pain Score 6-10 Last Admin: 06/24/20 05:34 Dose: 1 mg Documented by: Nicotine (Nicotine 14 Mg Patch) 14 mg TD DAILY [facility] Last Admin: 06/25/20 10:02 Dose: Not Given Documented by: Nutritional Formula (Lactose Free) (Glucerna Shake 120 Ml Liquid) 120 ml PO 4X/DAY [facility] Last Admin: 06/25/20 21:10 Dose: 120 ml Documented by: Ondansetron HCl (Ondansetron 4 Mg/2 Ml Vial) 4 mg IV Q8H PRN PRN PRN Reason: NAUSEA/VOMITING Ondansetron HCl (Ondansetron 8 Mg Tablet) 8 mg PO Q8H PRN PRN PRN Reason: NAUSEA Oxycodone HCl (Oxycodone 5 Mg Tablet) 5 mg PO Q8H PRN PRN PRN Reason: Pain Score 6-10 Last Admin: 06/24/20 18:34 Dose: 5 mg Documented by: Phenobarbital (Phenobarbital 32.4 Mg Tablet) 64.8 mg PO Q4H [facility]; Taper Stop: 06/28/20 08:29 Last Admin: 06/26/20 04:35 Dose: 64.8 mg Documented by: Senna/Docusate Sodium (Senna/Docusate Sodium 1 Tablet) 2 tablet PO BID PRN PRN PRN Reason: Constipation Sodium Chloride (0.9% Saline Lock 10 Ml Syringe) 10 - 40 ml IV UD PRN PRN Reason: SALINE FLUSH Thiamine HCl (Thiamine Hydrochloride 100 Mg Tablet) 100 mg PO DAILYCM JAYLON Last Admin: 06/25/20 08:25 Dose: 100 mg Documented by: Trazodone HCl (Trazodone 100 Mg Tablet) 100 mg PO QHS PRN PRN Reason: INSOMNIA STROKE Vital Signs/Narrative: Vital Signs Pulse Ox 06/26/20 07:28 99 Medical Necessity - Tobacco Use Smoking Status: Current some day smoker Assessment/Plan All Active Problems Severe sepsis (Acute) patient is 70-year-old female admitted for severe sepsis secondary to infected and necrotic right hip wound and acute cystitis. Urine culture E. coli [id number]. ID and orthopedic surgery is consulted. Patient had left hip arthroplasty in January 2020. On IV vancomycin and Zosyn to cover necrotic right hip wound and UTI. Both blood culture bottles aerobic and anaerobic growing gram-negative rods. 1. Severe sepsis secondary acute E. coli cystitis with associated GNR bacteremia and right hip necrotic wound/ulcer-Continue IV Zosyn and IV vancomycin. Patient being seen by ID. 2. Right hip necrotic ulcer Dr. Saeed consulted. Patient's brother Mr. Chidi Law was called by nurse. As per nursing staff, Kirt, he does not want to take responsibility and sign consent for the surgery. Later on I also called him, phone #[phone] and left a voice message to call back. Initially after the discussion with Dr. Saeed, it was decided consent to be signed back 2 physicians, him and myself and patient to be taken to the OR as it is urgent surgery. Initially was agitated in surgery and she is not has good decision-making capacity because of altered mental status from possible sepsis chronic alcohol use therefore surgery was canceled after anesthesiologist recommendation. Risk management was called. There is urgent need of surgery as there is high risk of worsening of necrotic infection in the right hip area, progressing to septic shock, limb loss, amputation and . Surgical dressing. Dressing was done by wound nurse. 3. Chronic alcohol dependence-medical stabilization per protocol. CIWA. Thiamine, multivitamin, folic acid. Patient used to drink probably about half to 1 pint of vodka daily 4. History of recurrent alcoholic pancreatitis, chronically elevated lipase and liver enzymes-at baseline. 5. Hypertension-previously on atenolol. Patient no longer on medication. low-dose metoprolol given tachycardia. 6. Debility with recurrent falls-PT/OT. Fall precautions. 7. Depression/bipolar-previously referred to behavioral health. Not on home medication regimen. Patient follow-up recommended 8. Hypothyroidism-has not been taking Synthroid. TSH 2.6. 9. Tobacco dependence-encouraged cessation. 10. Moderate protein calorie malnutrition- residential sales executive consult. DVT prophylaxis-Lovenox subcu Inpatient E&M: 09367 Subs Hosp L2
--- NOTE | 2020-06-26 08:00 | CT_ITS ---
STUDY: CT SCAN HIP RIGHT REASON FOR EXAM: Female, 70 years old. RT HIP INJURY, FOUND ON FLOOR, RT HIP WOUND INFECTION, HTN, CHRONIC ALCOHOLISM, HTN, FIBROMYALGIA RADIATION DOSAGE (If Supplied By Facility): CTDIvol = ( 12.86 ) mGy, DLP = ( 414.14 ) mGycm. Individualized dose optimization techniques were used for this CT.? TECHNIQUE: Multiple axial tomographic images of the right hip joint were obtained without intravenous contrast administration. Sagittal and coronal images were obtained as well. COMPARISON: None. FINDINGS: No bony abnormality is seen. There is evidence of the increased markings in the subcutaneous tissues overlying the right hemipelvis and right buttock region suggestive of subcutaneous edema most likely secondary to the history of trauma. No focal abscess or fluid collection is seen. CT/Extremity Lower without Contra IMPRESSION: No bony abnormality is seen. Soft tissue changes as described. No focal abscess or fluid collection is present. Electronically Signed: Edison Varela MD at 9:05 EST , Service support ,
[2020-06-26 09:06] LABS: AST(SGOT) 54 U/L (15-37); Alanine Aminotransfer ALT/SGPT 44 U/L (13-56); Albumin, Serum 1.9 g/dL (3.2-5.0); Alkaline Phosphatase 173 U/L (45-117); Bilirubin, Direct 0.22 mg/dL (0.00-0.30); Globulin 3.8 g/dL (2.2-4.2); Protein, Total 5.7 g/dL (6.4-8.2)
[2020-06-26] MEDS: Metoprolol Tartrate 25 MG Tablet PO ×2 (09:21→22:09)
[2020-06-26] MEDS: Folic Acid 1 MG Tablet PO (09:21)
[2020-06-26] MEDS: Thiamine Hydrochloride 100 MG Tablet PO (09:21)
--- NOTE | 2020-06-26 11:28 | NURSING ---
wound photo: right hip
--- NOTE | 2020-06-26 11:29 | NURSING ---
wound photo: right lateral ankle
--- NOTE | 2020-06-26 12:16 | PCM.PN.BLA ---
Progress Note Patient has a new onset necrotic pressure sore injury right hip/trochanteric area. She needs urgent surgery today because of the risk of underlying necrotic muscle that can lead to a life threatening necrotizing process. Patient is currently confused that is multifactorial. She has underlying alcohol issues that can cause confusion and also this necrotic pressure sore injury with underlying necrotic muscle can be a source of confusion. She is unable to sign her consent today. A family member was contacted today and was not interested in signing the consent. Surgery needs to be done today urgently because a delay in the surgery in order to wait for a signed consent can lead to increased risk of worsening necrotic infection, amputation, and . STROKE Vital Signs/Narrative: Vital Signs Temp Pulse Resp BP Pulse Ox 06/26/20 09:21 109 H 121/57 H 06/26/20 09:05 100.3 F H 109 H 18 121/57 H 95
[2020-06-26] MEDS: Vancomycin IV 1,000 MG/200 ML BAG 200 MG IV ×2 (12:18→22:10)
[2020-06-26] MEDS: 0.9% Saline Lock 10 ML Syringe IV (12:39)
--- NOTE | 2020-06-26 14:10 | SUR.PREOP ---
surgery cancelled. pt returning to the floor.
[2020-06-26] MEDS: oxyCODONE 5 MG Tablet PO ×2 (14:56→23:20)
[2020-06-26] MEDS: Glucerna Shake 120 ML LIQUID PO ×2 (15:10→17:14)
--- NOTE | 2020-06-26 16:01 | CASEMGMT ---
Readmission chart review: Pt was initially admitted 06/13-06/16/20 for Debility and stated is unable to care for self at home and SW sent referral for pt to [facility] per request and APS referral made at that time d/t pt still in paper pants from ED visit 2 days prior and they were covered in stool/urine, pt unkempt, states unable to walk. Per SW note, APS had met with pt prior to discharge from [facility] on 05/30/20 and pt understood risks or returning home. Per APS, pt is over resources for [facility] and pt owes [facility] money and they will not take her back d/t same. Per APS, if pt would pay off SNF bills, she could re-apply for [facility]. See SW notes from 06/14-06/16/20. Pt also has hx of ETOH abuse. Pt was not able to afford private pay at SNF or pay up front and APS did visit pt in hospital on 06/16/20 as pt insists on returning home at this time and she was still assist of two at that time. Pt also declined [facility] at that time and discharged home with friend. Pt returned to [facility] ED for lying on floor for 2 days on right hip in poor conditions, c/o pain all over and states drank vodka 1/2 hour prior to arrival. Pt has new pressure injury to right hip which was not there on previous visit and area is 9x11cm, see wound notes/photos. Pt also has small reddened area to right lateral ankle. Pt is confused at this time with a CIWA of 6. APS already notified of pt readmission by ED SW's. CM to follow for any further discharge planning/needs. Jeanie CRABTREE CM
--- NOTE | 2020-06-26 16:29 | PCM.HP.ID ---
Problem List (1) Severe sepsis Status: Acute Reason for Consult: wound infection Consulted by: Dr. Jacome History of Present Illness: The patient is a 70 year old F with h/o etoh abuse, fell and was on floor at home for 2 days. Found, soaked in stool and urine, large wound on R hip. Taken to ED by EMS, started vanc/michael, Dr. Saeed consulted with plastic surgery. C/o pain, no fever, no abd pain, no cough or SOB. Full ROS performed and neg except as noted above. - Medical History Past Medical History (Chronic Problems): Chronic Problems Debility (Chronic) Autoimmune pancreatitis (Chronic) Alcohol dependence (Chronic) Psoriatic arthritis (Chronic) Severe protein-calorie malnutrition (Chronic) HLD (hyperlipidemia) (Chronic) GERD (gastroesophageal reflux disease) (Chronic) Tobacco use (Chronic) Alcoholism (Chronic) Hepatic steatosis (Chronic) Alcoholic hepatitis (Chronic) Abnormal LFTs (Chronic) Alcoholic pancreatitis (Chronic) Alcohol abuse (Chronic) Hypertension (Chronic) Hypothyroidism (Chronic) Anxiety (Chronic) Fibromyalgia (Chronic) Dysphagia (Chronic) Rheumatoid arthritis (Chronic) never confirmed.....RA is negative.....tells me that she has psoriatic arthritis Psoriasis (Chronic) Chronic back pain (Chronic) osteoarthritis Delusional disorder (Chronic) Bipolar disorder (Chronic) Depression with H/o suicidal attempt (Chronic) Allergies/Adverse Reactions: Allergies nickel [Nickel] Allergy (Verified 06/23/20 19:56) Rash/autoimmune reactions prochlorperazine edisylate [From Compazine] Adverse Reaction (Verified 06/23/20 19:56) disoriented prochlorperazine maleate [From Compazine] Adverse Reaction (Verified 06/23/20 19:56) DISORIENTED CADMIUM Allergy (Uncoded 06/23/20 19:56) Rash AUTOIMMUNE RESPONSE Home Medications: Ambulatory Orders Medication Instructions Recorded NK 06/23/20 - Social History Tobacco Use: cigarettes Vital Signs Temp Pulse Resp BP Pulse Ox 97.8 F 95 18 121/56 H 99 06/26/20 14:30 06/26/20 15:00 06/26/20 14:30 06/26/20 14:30 06/26/20 14:30 Oxygen Delivery Method Room Air Weight: 57 kg Body Mass Index (BMI) 20.2 Finger Stick Blood Glucose 103 Microbiology Past 72 Hours 06/23/20 20:30 Blood Culture - Preliminary Blood Culture (Wb) - Right Hand 06/23/20 20:45 Blood Culture - Final Blood Culture (Wb) - Anticubital Left Escherichia coli 06/23/20 21:15 Urine Culture - Final Urine Catheter - Funk Presumptive E. coli 06/24/20 16:30 C. difficile DNA Amplification - Final Stool 06/23/20 21:15 SARS-CoV-2 Antigen (Rapid) - Final Mucosa - Nose Laboratory Tests Past 24 Hrs 06/26/20 06/26/20 06/26/20 06:00 06:00 06:00 WBC 9.5 RBC 3.55 L Hgb 10.2 L Hct 31.9 L MCV 89.9 MCH 28.7 MCHC 32.0 RDW Std Deviation 59.7 H RDW Coeff of Jonathan 18.9 H Plt Count 186 MPV 9.3 Sodium 143 Potassium 3.6 Chloride 111 H Carbon Dioxide 28.0 Anion Gap 4 L BUN 12 Creatinine 0.48 L Estim Creat Clear Calc 45.76 Est GFR (MDRD) Af Amer 163 Est GFR (MDRD) Non-Af 134 BUN/Creatinine Ratio 24.9 H Glucose 128 H Calcium 8.3 L Total Bilirubin 0.40 Direct Bilirubin 0.22 AST 54 H ALT 44 Alkaline Phosphatase 173 H Total Protein 5.7 L Albumin 1.9 L Globulin 3.8 - Other Studies Radiology: [] reviewed Other Studies: [] Route of nutrition/ use of supplements: [] Nutritional Intake: [] IV Site: [] Funk Catheter: [] - Physical Exam General: Alert, Oriented x3, Cooperative HEENT: Atraumatic, PERRLA, EOMI Neck: Supple, No Nodes Lungs: Clear to auscultation, Normal air movement Cardiovascular: Regular rate, Regular Rhythm Abdomen: Soft, Non Tender, Non-Distended Extremities: No edema Skin: Ulcer/ Wound - reviewed photos IV Site: Peripheral, without redness Neurological: Cranial nerves II-XII grossly intact - Assessment/Plan Antibiotics: [] Assessment/Plan: [] Active and Suspected Problems Severe sepsis (Acute) Infected R hip wound after being down on floor for several days with incontinence - unable to get debridement due to inability to obtain consent. Wbc much improved. Bcx with ecoli, covid Ag neg, cdiff neg. Cont vanc/zosyn. Will follow, thank you
[2020-06-26] MEDS: Juven (unflavored) Packet 1 PACKET PO (17:14)
[2020-06-27] VITALS (12 sets, daily range): BP systolic 118–133; BP diastolic 58–76; PULSE 77–93; RESP 16–18; TEMP 36.7–37.3; O2SAT 97–100
[2020-06-27] MEDS: Phenobarbital 32.4 MG Tablet PO ×4 (02:36→21:25)
[2020-06-27] MEDS: Morphine 2 MG/ML Syringe IV ×4 (03:30→21:28)
[2020-06-27] MEDS: Enoxaparin 40 MG/0.4 ML Syringe SC (05:38)
[2020-06-27] MEDS: Menthol/Lanolin/Calamine/Znox 113 GM Tube 1 APPLIC TOPICAL ×3 (05:39→21:25)
[2020-06-27 06:37] LABS: Hematocrit 31.5 % (37-47); Hemoglobin 10.1 g/dL (12.0-15.0); Mean Corp Hgb Conc 32.1 g/dL (32-36); Mean Corpuscular Hgb 28.8 pg (27.0-32.0); Mean Corpuscular Volume 89.7 fL (81-99); POSITIVE COUNT YES; POSITIVE MORPHOLOGY YES; Platelet Count 170 K/mm3 (150-450); RBC Distribution Width CV 18.7 % (11.6-14.6); RBC Distribution Width SD 59.7 fl (35.1-43.9); Red Blood Count 3.51 M/mm3 (4.2-5.4); White Blood Count 7.3 K/mm3 (4.4-11.0)
[2020-06-27 06:40] LABS: Differential Indicated MANUAL DIFF
[2020-06-27 07:06] LABS: Lymphocyte 21 % (19-41); Metamyelocyte 2 % (0-1); Monocyte 8 % (0-10); Neutrophil-Band 2 % (0-5); Neutrophil-Segmented 67 % (47-70); Total Cells Counted 100 (MANUAL DIFF)
[2020-06-27 07:07] LABS: Platelet Estimate ADEQUATE (ADEQ); Red Cell Morphology NORM C+C NORMAL (NORM C&C)
[2020-06-27 07:13] LABS: Anion Gap 3 (5-15); BUN 10 mg/dL (7-18); BUN/Creat Ratio 20.2 RATIO (10-20); Chloride 110 mmol/L (98-107); EST Glomerular Filtration Rate 130 mL/min (>60); Est Glom Filt Rate - Afr Amer 158 mL/min (>60); Estimated Creatinine Clearance 45.76 ml/min; Glucose 98 mg/dL (74-106); Potassium 3.3 mmol/L (3.5-5.1); Prealbumin 7.2 mg/dL (20.0-40.0); Sodium Level 143 mmol/L (136-145)
[2020-06-27] MEDS: Folic Acid 1 MG Tablet PO (08:21)
[2020-06-27] MEDS: Metoprolol Tartrate 25 MG Tablet PO ×2 (08:21→21:25)
[2020-06-27] MEDS: Thiamine Hydrochloride 100 MG Tablet PO (08:21)
[2020-06-27] MEDS: Juven (unflavored) Packet 1 PACKET PO ×2 (08:22→16:51)
[2020-06-27] MEDS: Glucerna Shake 120 ML LIQUID PO ×3 (08:30→21:25)
[2020-06-27 08:40] LABS: Vitamin B12 530 pg/mL (211-911)
[2020-06-27 10:18] LABS: Vancomycin, Trough Level 20.2 ug/mL (5.0-15.0)
--- NOTE | 2020-06-27 10:24 | CASEMGMT ---
SAM called Wenceslao at [facility]. SAM let her know about patient's admission etc. She said even if they would go for guardianship there is nowhere to send her unless she agrees to pay up front. She owes [facility] $15,000. She asked that SAM keep her updated. SAM met with patient, introduced self and role at [facility]. SAM asked her what her plan is for discharge. She shrugged her shoulders. She then said, I can't take care of myself. SAM is aware from her previous admission that patient is out of her Medicare days and does not qualify for Medicaid. Therefore patient has money to pay, but was unwilling to do so last time. SAM went over this with patient and when SAM asked her if she can pay this time she said she could. SAM asked if her friend would be able to bring in her check book she said no. She then closed her eyes and asked for her pain medicine. Zoe ALVAREZ MSW
[2020-06-27] MEDS: oxyCODONE 5 MG Tablet PO ×2 (10:49→18:46)
[2020-06-27] MEDS: Vancomycin IV 1,000 MG/200 ML BAG 200 MG IV (10:50)
--- NOTE | 2020-06-27 11:30 | PN.SURG_ITS ---
Patient Problems: Active and Suspected Problems Severe sepsis (Acute) Subjective: Patient resting comfortably in bed. - Physical Exam Vitals/I&O's: Vital Signs Temp Pulse Resp BP Pulse Ox 98.8 F 90 16 118/61 98 06/27/20 21:15 06/27/20 21:25 06/27/20 21:15 06/27/20 21:15 06/27/20 21:15 Oxygen Delivery Method Room Air Weight: 125 lb 10.616 oz Body Mass Index (BMI) 20.2 Finger Stick Blood Glucose 103 Intake and Output for Last 24 Hours 06/25/20 06/26/20 06/27/20 23:59 23:59 23:59 Intake Total 3860 / 3860 890 / 1130 743.33 / 743.33 Output Total 2150 / 2150 2475 / 2775 1500 / 1500 Balance 1710 / 1710 -1585 / -1645 -756.67 / -756.67 General: Alert, Disoriented HEENT: Atraumatic Oral: Moist Mucosa Lungs: Normal air movement Cardiovascular: Regular rate Abdomen: Soft Extremities: Capillary Refill Less than 3 Seconds Skin: Ulcer/ Wound - Right hip/trochanteric area ulcer soft with reid and necrotic tissue. It has minimal drainage. Musculoskeletal: No Tenderness to Palpation of Joints or Extremities Neurological: Cranial nerves II-XII grossly intact Psych/Mental Status: Irrational Behavior Microbiology Past 72 Hours 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 - Preliminary 06/23/20 20:45 Blood Culture (Wb) - Anticubital Left Blood Culture - Final Escherichia coli 06/23/20 21:15 Urine Catheter - Funk Urine Culture - Final Presumptive E. coli 06/24/20 16:30 Stool C. difficile DNA Amplification - Final Laboratory Results 06/27/20 06:15: WBC 7.3, RBC 3.51 L, Hgb 10.1 L, Hct 31.5 L, MCV 89.7, MCH 28.8, MCHC 32.1, RDW Std Deviation 59.7 H, RDW Coeff of Jonathan 18.7 H, Plt Count 170, MPV 9.0, Neut % (Auto) Not Reportable, Absolute Neuts (auto) 5.0, Absolute Lymphs (auto) 1.50, Total Counted 100, Neutrophils % (Manual) 67, Band Neutrophils % 2, Lymphocytes % (Manual) 21, Monocytes % (Manual) 8, Metamyelocytes % 2 H, Diff Path Review Reviewed, Platelet Estimate ADEQUATE, RBC Morphology NORM C+C 06/27/20 06:15: Sodium 143, Potassium 3.3 L, Chloride 110 H, Carbon Dioxide 30.0, Anion Gap 3 L, BUN 10, Creatinine 0.50 L, Estim Creat Clear Calc 45.76, Est GFR (MDRD) Af Amer 158, Est GFR (MDRD) Non-Af 130, BUN/Creatinine Ratio 20.2 H, Glucose 98, Calcium 8.0 L, Prealbumin 7.2 L, Folate 16.70 06/27/20 06:15: Vitamin B12 530 06/27/20 09:20: Vancomycin Trough 20.2 H Current Medications Calamine/Phenol (Menthol/Lanolin/Calamine/Znox 113 Gm Tube) 1 applic TOPICAL TID [facility]; Protocol Last Admin: 06/27/20 21:25 Dose: 1 applicatio Documented by: Dicyclomine HCl (Dicyclomine 10 Mg Capsule) 20 mg PO Q6H PRN PRN PRN Reason: abdominal discomfort Enoxaparin Sodium (Enoxaparin 40 Mg/0.4 Ml Syringe) 40 mg SC DAILY@0600 [facility] Last Admin: 06/27/20 05:38 Dose: 40 mg Documented by: Folic Acid (Folic Acid 1 Mg Tablet) 1 mg PO DAILY@0800 [facility] Last Admin: 06/27/20 08:21 Dose: 1 mg Documented by: Gabapentin (Gabapentin 300 Mg Capsule) 300 mg PO Q8H PRN PRN PRN Reason: moderate to severe anxiety Hydroxyzine Pamoate (Hydroxyzine Crystal 25 Mg Capsule) 50 mg PO Q4H PRN PRN PRN Reason: mild anxiety Vancomycin IV Pharmacy to Dose (1 ea/ Sodium Chloride) 500 mls @ 250 mls/hr IV X1 PRN; Protocol PRN Reason: Rx to Dose Piperacillin Sod/Tazobactam (Sod 3.375 gm/ Sodium Chloride) 50 mls @ 12.5 mls/hr IV Q8 [facility] Last Admin: 06/27/20 21:26 Dose: 12.5 mls/hr Documented by: L-Arginine/L-Glutamine/Calcium HMB (Timothy (Unflavored) Packet) 1 packet PO BIDCM JAYLON Last Admin: 06/27/20 16:51 Dose: 1 packet Documented by: Loperamide HCl (Loperamide 2 Mg Capsule) 2 mg PO Q4H PRN PRN PRN Reason: LOOSE STOOLS Last Admin: 06/24/20 22:10 Dose: 2 mg Documented by: Metoprolol Tartrate (Metoprolol Tartrate 25 Mg Tablet) 25 mg PO BID [facility] Last Admin: 06/27/20 21:25 Dose: 25 mg Documented by: Morphine Sulfate (Morphine 2 Mg/Ml Syringe) 2 mg IV Q3H PRN PRN PRN Reason: Pain Score 6-10 Last Admin: 06/27/20 21:28 Dose: 2 mg Documented by: Nicotine (Nicotine 14 Mg Patch) 14 mg TD DAILY [facility] Last Admin: 06/27/20 08:22 Dose: Not Given Documented by: Nutritional Formula (Lactose Free) (Glucerna Shake 120 Ml Liquid) 120 ml PO 4X/DAY [facility] Last Admin: 06/27/20 21:25 Dose: 120 ml Documented by: Ondansetron HCl (Ondansetron 4 Mg/2 Ml Vial) 4 mg IV Q8H PRN PRN PRN Reason: NAUSEA/VOMITING Ondansetron HCl (Ondansetron 8 Mg Tablet) 8 mg PO Q8H PRN PRN PRN Reason: NAUSEA Oxycodone HCl (Oxycodone 5 Mg Tablet) 5 mg PO Q8H PRN PRN PRN Reason: Pain Score 6-10 Last Admin: 06/27/20 18:46 Dose: 5 mg Documented by: Phenobarbital (Phenobarbital 32.4 Mg Tablet) 32.4 mg PO Q6H [facility]; Taper Stop: 06/28/20 08:29 Last Admin: 06/27/20 21:25 Dose: 32.4 mg Documented by: Senna/Docusate Sodium (Senna/Docusate Sodium 1 Tablet) 2 tablet PO BID PRN PRN PRN Reason: Constipation Sodium Chloride (0.9% Saline Lock 10 Ml Syringe) 10 - 40 ml IV UD PRN PRN Reason: SALINE FLUSH Last Admin: 06/26/20 12:39 Dose: 10 ml Documented by: Thiamine HCl (Thiamine Hydrochloride 100 Mg Tablet) [facility] Last Admin: 06/27/20 08:21 Dose: 100 mg Documented by: Trazodone HCl (Trazodone 100 Mg Tablet) 100 mg PO QHS PRN PRN Reason: INSOMNIA Medical Necessity - Tobacco Use Smoking Status: Current some day smoker Assessment/Plan All Active Problems Pressure injury of trochanteric region of right hip, unstageable (Acute) Skin necrosis (Acute) Cystitis (Acute) Severe sepsis (Acute) 1. Necrotic pressure sore injury right hip/trochanteric area. 2. Sepsis. 3. Cystitis. 4. Alcohol abuse. 5. Smoker. Patient has a necrotic pressure sore injury right hip/trochanteric area that developed when she passed out for a couple of days. She has a history of alcohol abuse. In ED her WBC was 20.5. Her Lactate was 3.4. She was started on Vancomycin and Zosyn. Her WBC has improved to 7.3. Her Lactate has improved to 1.6. She also has an associated cystitis. It is unclear how deep the necrosis is from the pressure of being passed out for a couple of days. With her abnormal labs, I suspect extension to the bone with necrosis involving muscle. CT from 06/26/20 showed No bony abnormality is seen. There is evidence of the increased markings in the subcutaneous tissues overlying the right hemipelvis and right buttock region suggestive of subcutaneous edema most likely secondary to the history of trauma. No focal abscess or fluid collection is seen. Prealbumin 7.3 today, encourage nutritional supplementation with protein to help the healing process. An operative intervention was recommended with excision of the necrotic pressure sore injury right hip/trochanteric area. Patient refused to have the procedure done yesterday. Dr. Saeed will plan on operative intervention tomorrow under general anesthesia. After discharge, can followup [facility]. If there is a plateau in the healing process, can proceed with delayed closure with skin graft or a muscle flap or a fasciocutaneous flap reconstruction. Encouraged patient to stop smoking as it may have deleterious effects on wound healing. Inpatient E&M: [id number] [facility] L1
--- NOTE | 2020-06-27 13:23 | PCM.RX.CS ---
Consult Pharmacy has been consulted to manage selected antiobiotic: Vancomycin Type of Consult: Follow-up Labs: Sodium 143 mmol/L (136-145) 06/27/20 06:15 Potassium 3.3 mmol/L (3.5-5.1) L 06/27/20 06:15 Chloride 110 mmol/L (98-107) H 06/27/20 06:15 Carbon Dioxide 30.0 mmol/L (21.0-32.0) 06/27/20 06:15 Anion Gap 3 (5-15) L 06/27/20 06:15 BUN 10 mg/dL (7-18) 06/27/20 06:15 Creatinine 0.50 mg/dL (0.55-1.02) L 06/27/20 06:15 Est GFR (MDRD) Af Amer 158 mL/min (>60) 06/27/20 06:15 Est GFR (MDRD) Non-Af 130 mL/min (>60) 06/27/20 06:15 BUN/Creatinine Ratio 20.2 RATIO (10-20) H 06/27/20 06:15 Glucose 98 mg/dL (74-106) 06/27/20 06:15 Vancomycin Trough 20.2 ug/mL (5.0-15.0) H 06/27/20 09:20 Microbiology: Microbiology 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 - Preliminary 06/23/20 20:45 Blood Culture (Wb) - Anticubital Left Blood Culture - Final Escherichia coli 06/23/20 21:15 Urine Catheter - Funk Urine Culture - Final Presumptive E. coli 06/24/20 16:30 Stool C. difficile DNA Amplification - Final 06/23/20 21:15 Mucosa - Nose SARS-CoV-2 Antigen (Rapid) - Final Goal Trough: 15-20 mcg/mL Pharmacy Plan for Drug Dosing: VANCOMYCIN LEVEL RECEIVED Current Vancomycin Dose: 1000mg IV Q12hr Number of Doses Received: 3 Vancomycin Level: 20.2 Hours Since Last Dose: 11hrs Renal Function: 0.5 Renal Function Trend:stable Vancomycin Plan/Comments:Patient had level drawn ~11hrs from last administered dose which resulted in a value of 20.2 (drawn correctly). Spoke with pt's RN Boyd regarding elevated trough. He hung the dose @1050 on 06/27/20, but was stopped d/t elevated trough. Per Boyd, patient only had ~10mL of a 200mL bag prior to being discontinued. Will HOLD further doses and get a trough tomorrow morning with AM labs to assess dosing at that time. Pending Level: 06/28/20 w/ AM LABS Pharmacy Service will continue to monitor and adjust dosing as required.
[2020-06-27 14:21] LABS: Pathologist Review Reviewed
--- NOTE | 2020-06-27 16:24 | PCM.PN.HOSP ---
Patient Problems: Active and Suspected Problems Severe sepsis (Acute) Reason for Visit: sepsis Subjective: Does not want any surgery on her leg. She said she is being told lies. She said someone said she had surgery, to which she didn't. I asked her what other lies, she couldn't tell me. Vitals/I&O's: Vital Signs Temp Pulse Resp BP Pulse Ox 36.9 C 86 16 128/72 H 97 06/27/20 15:17 06/27/20 15:17 06/27/20 15:17 06/27/20 15:17 06/27/20 15:17 Oxygen Delivery Method Room Air Weight: 57 kg Body Mass Index (BMI) 20.2 Finger Stick Blood Glucose 103 Intake and Output for Last 24 Hours 06/25/20 06/26/20 06/27/20 23:59 23:59 23:59 Intake Total 3860 / 3860 890 / 1130 693.33 / 693.33 Output Total 2150 / 2150 2475 / 2775 1200 / 1200 Balance 1710 / 1710 -1585 / -1645 -506.67 / -506.67 General: Alert, No apparent distress HEENT: Atraumatic, Normocephalic Oral: Moist Mucosa, No Gingival or Mucosal Lesions/ Ulcerations Neck: No Nodes, Thyroid Normal Size and Texture Lungs: Clear to auscultation, Normal air movement, No rhonchi, No wheeze Cardiovascular: Regular rate, Regular Rhythm, Normal S1, Normal S2, No murmurs Abdomen: Bowel Sounds Present, Soft, Non Tender, Non-Distended, No Hepato-splenomegaly Extremities: No edema, No Calf Tenderness Psych/Mental Status: Normal Affect, Appropriate Microbiology Past 72 Hours 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 - Preliminary 06/23/20 20:45 Blood Culture (Wb) - Anticubital Left Blood Culture - Final Escherichia coli 06/23/20 21:15 Urine Catheter - Funk Urine Culture - Final Presumptive E. coli 06/24/20 16:30 Stool C. difficile DNA Amplification - Final Laboratory Results 06/27/20 06:15: WBC 7.3, RBC 3.51 L, Hgb 10.1 L, Hct 31.5 L, MCV 89.7, MCH 28.8, MCHC 32.1, RDW Std Deviation 59.7 H, RDW Coeff of Jonathan 18.7 H, Plt Count 170, MPV 9.0, Neut % (Auto) Not Reportable, Absolute Neuts (auto) 5.0, Absolute Lymphs (auto) 1.50, Total Counted 100, Neutrophils % (Manual) 67, Band Neutrophils % 2, Lymphocytes % (Manual) 21, Monocytes % (Manual) 8, Metamyelocytes % 2 H, Diff Path Review Reviewed, Platelet Estimate ADEQUATE, RBC Morphology NORM C+C 06/27/20 06:15: Sodium 143, Potassium 3.3 L, Chloride 110 H, Carbon Dioxide 30.0, Anion Gap 3 L, BUN 10, Creatinine 0.50 L, Estim Creat Clear Calc 45.76, Est GFR (MDRD) Af Amer 158, Est GFR (MDRD) Non-Af 130, BUN/Creatinine Ratio 20.2 H, Glucose 98, Calcium 8.0 L, Prealbumin 7.2 L, Folate 16.70 06/27/20 06:15: Vitamin B12 530 06/27/20 09:20: Vancomycin Trough 20.2 H Current Medications Calamine/Phenol (Menthol/Lanolin/Calamine/Znox 113 Gm Tube) 1 applic TOPICAL TID [facility]; Protocol Last Admin: 06/27/20 15:20 Dose: 1 applicatio Documented by: Dicyclomine HCl (Dicyclomine 10 Mg Capsule) 20 mg PO Q6H PRN PRN PRN Reason: abdominal discomfort Enoxaparin Sodium (Enoxaparin 40 Mg/0.4 Ml Syringe) 40 mg SC DAILY@0600 [facility] Last Admin: 06/27/20 05:38 Dose: 40 mg Documented by: Folic Acid (Folic Acid 1 Mg Tablet) 1 mg PO DAILY@0800 [facility] Last Admin: 06/27/20 08:21 Dose: 1 mg Documented by: Gabapentin (Gabapentin 300 Mg Capsule) 300 mg PO Q8H PRN PRN PRN Reason: moderate to severe anxiety Hydroxyzine Pamoate (Hydroxyzine Crystal 25 Mg Capsule) 50 mg PO Q4H PRN PRN PRN Reason: mild anxiety Vancomycin IV Pharmacy to Dose (1 ea/ Sodium Chloride) 500 mls @ 250 mls/hr IV X1 PRN; Protocol PRN Reason: Rx to Dose Piperacillin Sod/Tazobactam (Sod 3.375 gm/ Sodium Chloride) 50 mls @ 12.5 mls/hr IV Q8 [facility] Last Admin: 06/27/20 15:20 Dose: 12.5 mls/hr Documented by: L-Arginine/L-Glutamine/Calcium HMB (Timothy (Unflavored) Packet) [facility] Last Admin: 06/27/20 08:22 Dose: 1 packet Documented by: Loperamide HCl (Loperamide 2 Mg Capsule) 2 mg PO Q4H PRN PRN PRN Reason: LOOSE STOOLS Last Admin: 06/24/20 22:10 Dose: 2 mg Documented by: Metoprolol Tartrate (Metoprolol Tartrate 25 Mg Tablet) 25 mg PO BID [facility] Last Admin: 06/27/20 08:21 Dose: 25 mg Documented by: Morphine Sulfate (Morphine 2 Mg/Ml Syringe) 2 mg IV Q3H PRN PRN PRN Reason: Pain Score 6-10 Last Admin: 06/27/20 11:43 Dose: 2 mg Documented by: Nicotine (Nicotine 14 Mg Patch) 14 mg TD DAILY [facility] Last Admin: 06/27/20 08:22 Dose: Not Given Documented by: Nutritional Formula (Lactose Free) (Glucerna Shake 120 Ml Liquid) 120 ml PO 4X/DAY [facility] Last Admin: 06/27/20 15:20 Dose: Not Given Documented by: Ondansetron HCl (Ondansetron 4 Mg/2 Ml Vial) 4 mg IV Q8H PRN PRN PRN Reason: NAUSEA/VOMITING Ondansetron HCl (Ondansetron 8 Mg Tablet) 8 mg PO Q8H PRN PRN PRN Reason: NAUSEA Oxycodone HCl (Oxycodone 5 Mg Tablet) 5 mg PO Q8H PRN PRN PRN Reason: Pain Score 6-10 Last Admin: 06/27/20 10:49 Dose: 5 mg Documented by: Phenobarbital (Phenobarbital 32.4 Mg Tablet) 32.4 mg PO Q6H [facility]; Taper Stop: 06/28/20 08:29 Last Admin: 06/27/20 15:19 Dose: 32.4 mg Documented by: Senna/Docusate Sodium (Senna/Docusate Sodium 1 Tablet) 2 tablet PO BID PRN PRN PRN Reason: Constipation Sodium Chloride (0.9% Saline Lock 10 Ml Syringe) 10 - 40 ml IV UD PRN PRN Reason: SALINE FLUSH Last Admin: 06/26/20 12:39 Dose: 10 ml Documented by: Thiamine HCl (Thiamine Hydrochloride 100 Mg Tablet) 100 mg PO DAILYCM JAYLON Last Admin: 06/27/20 08:21 Dose: 100 mg Documented by: Trazodone HCl (Trazodone 100 Mg Tablet) 100 mg PO QHS PRN PRN Reason: INSOMNIA STROKE Vital Signs/Narrative: Vital Signs Temp Pulse Resp BP Pulse Ox 06/27/20 15:17 36.9 C 86 16 128/72 H 97 Medical Necessity - Tobacco Use Smoking Status: Current some day smoker Assessment/Plan All Active Problems Pressure injury of trochanteric region of right hip, unstageable (Acute) Skin necrosis (Acute) Cystitis (Acute) Severe sepsis (Acute) 1. Severe sepsis 2/2 Right leg cellulitis resolved 2. RLE cellulitis 2/2 pressure ulcer on LLE on pip/tazo and vanc no abscess or bony infection on CT pt does not want surgery at this time. 3. alcohol abuse on phenobarbital, thiamine and folate 4. Debility SNF upon discharge 5. VTE prophylaxis: LMWH Inpatient E&M: 44408 Subs Hosp L2
--- NOTE | 2020-06-27 21:20 | PCM.PN.BLA ---
Progress Note I saw the patient today with her nurse, Boyd Singh. She had a discussion with the Hospitalist earlier in the day and stated she did not want any surgery. I came to see the patient to further discuss her decision earlier in the day. I wanted to make sure the patient was fully informed of the risks and complications of not proceeding with ther surgery. These risks included but were not inclusive of worsening infection, amputation, and . She voiced understanding of the risks of not proceeding with the surgery. During my discussion with the patient today, I then showed her a picture of her right hip so she could see the extent of her necrotic pressure injury right hip. Patient then decided to proceed with the surgery. All her preop questions were answered personally and to her satisfaction. She appeared alert and oriented during this discussion. She signed her operative consent and will proceed with the surgery tomorrow morning. STROKE Vital Signs/Narrative: Vital Signs Pulse 06/27/20 19:00 93
[2020-06-28] VITALS (15 sets, daily range): BP systolic 101–139; BP diastolic 51–79; PULSE 76–103; RESP 14–18; TEMP 36.4–37.1; O2SAT 93–97
[2020-06-28] MEDS: Morphine 2 MG/ML Syringe IV (01:28)
[2020-06-28] MEDS: 0.9% Saline Lock 10 ML Syringe IV (01:31)
[2020-06-28] MEDS: Menthol/Lanolin/Calamine/Znox 113 GM Tube 1 APPLIC TOPICAL ×3 (05:09→21:10)
[2020-06-28 06:03] LABS: Hematocrit 29.8 % (37-47); Hemoglobin 9.6 g/dL (12.0-15.0); Mean Corp Hgb Conc 32.2 g/dL (32-36); Mean Corpuscular Hgb 28.7 pg (27.0-32.0); Mean Corpuscular Volume 89.2 fL (81-99); Mean Platelet Vol. 8.9 fl (6.2-12.0); POSITIVE COUNT YES; POSITIVE MORPHOLOGY YES; Platelet Count 242 K/mm3 (150-450); RBC Distribution Width CV 18.5 % (11.6-14.6); RBC Distribution Width SD 59.5 fl (35.1-43.9); Red Blood Count 3.34 M/mm3 (4.2-5.4); White Blood Count 7.1 K/mm3 (4.4-11.0)
[2020-06-28 06:10] LABS: Differential Indicated MANUAL DIFF
[2020-06-28 06:30] LABS: Anion Gap 3 (5-15); BUN 14 mg/dL (7-18); BUN/Creat Ratio 27.1 RATIO (10-20); Chloride 107 mmol/L (98-107); Creatinine, Serum 0.52 mg/dL (0.55-1.02); EST Glomerular Filtration Rate 124 mL/min (>60); Est Glom Filt Rate - Afr Amer 150 mL/min (>60); Estimated Creatinine Clearance 45.76 ml/min; Glucose 122 mg/dL (74-106); Potassium 3.5 mmol/L (3.5-5.1); Sodium Level 141 mmol/L (136-145)
[2020-06-28 06:32] LABS: Vancomycin, Random Level 8.7 ug/mL (0.0-15.0)
[2020-06-28 06:48] LABS: Total Cells Counted 100 (MANUAL DIFF)
[2020-06-28 06:54] LABS: Lymphocyte 21 % (19-41); Metamyelocyte 2 % (0-1); Monocyte 4 % (0-10); Myelocyte 1 (0-0); Neutrophil-Band 2 % (0-5)
[2020-06-28 06:55] LABS: Absolute Lymphocyte Count 1.49 X10^3/uL (0.83-4.51); Absolute Neutrophil Count 4.9 X10^3/uL (2.0-7.7); Atypical Lymphocyte 1+ %; Eosinophil 3 % (0-5); Lymphocyte # 1.49 X10^3/ul (4.0); Neutrophil # 4.91 X10^3/uL (2.7-7.7); Neutrophil-Segmented 67 % (47-70)
[2020-06-28 06:56] LABS: Anisocytosis RARE; Macrocytosis RARE; Platelet Estimate ADEQUATE (ADEQ)
--- NOTE | 2020-06-28 07:30 | PRES_PTH ---
PATIENT: LYNDSEY DEL RIO LOC: [facility] U#:[id number] AGE/SX: 70/F ROOM: [facility] RE06/23/[address]: Dr. Caridad Humphrey MD : [id number] BED: 1 DIS: 07/07/2020 SPEC #: [id number] RECD: 06/28/20 10:47 STATUS: PENELOPE REMitchell #: [id number] AZUCENA: 06/28/20 07:[address]: Calvin Saeed DEPT: SURGICAL PATHOLOGY RECD BY: Rafaela Solis ENTERED: 06/28/20 13:02 SP TYPE: PRESS SORE OTHR DR: DO Dr. Joe Lazo MD Dr. James A Slaby, MD Dr. Robert Leininger, MD Tai Chi Kwok, MD Tissues: Ischium, NOS Procedures: Surgery Specimen Level IV Comments: @ Ordering doctor for SUIV edited from to @ by HEATHER at 06/28/20 1554 @ Submitting doctor edited from to @ by RGOOD at 06/28/20 1554 HEADER OPERATION: Excision pressure sore, right hip PRE-OP DIAGNOSIS: Necrotic pressure sore injury right hip/trochanteric area TISSUE SUBMITTED: Soft tissue of right hip MICROSCOPIC DIAGNOSIS Skin and soft tissue of right hip, excision: Ulceration with associated acute and chronic inflammation and necrosis. Abundant bacterial colonies. AM:ria 06/29/2020 MICROSCOPIC DESCRIPTION Slides are reviewed. GROSS DESCRIPTION Received in fixative is one container labeled with the patient's name and designated soft tissue of right hip. The specimen consists of a piece of skin with underlying tissue measuring 10 x 8 x 2 cm. Also present in the container is a piece of soft tissue measuring 4.5 x 4 x 1 cm. The skin surface shows an extensive area of brownish-black ulceration. Tire As[employer]er sections are submitted in four cassettes. / SJ:ria 06/28/20 TC:2 CPT: 73501
[2020-06-28] MEDS: Lidocaine 1%/Epi 1:200 (30ml) 30 ML AMPUL (08:40)
--- NOTE | 2020-06-28 08:50 | PCM.OPRPT ---
Report of Operation Date of Procedure: 06/28/20 Pre-Operative Diagnosis: 1. Necrotic pressure sore injury right hip/trochanteric area. 2. Sepsis. 3. Cystitis. 4. Alcohol abuse. 5. Smoker. Post-Operative Diagnosis: 1. 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 2. Sepsis. 3. Cystitis. 4. Alcohol abuse. 5. Smoker. Surgery/Procedure Performed:: Excision necrotic pressure sore injury right hip/trochanteric area including necrotic muscle, Stage IV. Description of Surgical Findings:: The patient is a 70 year old F with a significant history of fibromyalgia and chronic alcoholism who presents to the emergency department because she was found lying on the floor. Per patient she has been lying on the floor for 2 days. Her friend who has keys to her abode came in and called the paramedics. Reportedly when paramedics came there were faeces all over the floor of her abode. In the ED, her WBC was 20.5. Her Lactate was 3.4. Urinalysis was positive. She was started on Vancomycin and Zosyn. Her Alcohol level was 109 which is in the severe poisoning range. I was asked to evaluate this patient for surgical options for treatment. Patient was informed of the risks and complications of the procedure including alternatives to surgery. These were discussed with the patient personally. Patient voices understanding and wishes to proceed. Some of the risks that were discussed included but were not inclusive of worsening infection, amputation, and . Encouraged patient to stop smoking as it may have deleterious effects on wound healing. Size of defect right hip/trochanteric area - 11 x 13 x 2 cm. general car yard supervisor: None Type of Anesthesia:: General Specimen's removed: Necrotic pressure sore injury right hip/trochanteric area including necrotic muscle, Stage IV, to Pathology and Microbiology. Drains: None. Estimated Blood Loss (mL): 50 ml. Description of Procedure: Patient was taken to OR in supine position and was placed under general anesthesia. She was then placed in the lateral position. The right hip area was prepped and draped in the usual fashion. SCD's were placed for DVT prophylaxis. Perioperative antibiotics were given intravenously. For the procedure, I wore an N95 mask and wore proper eyewear protection. Using xylocaine with epinephrine, the necrotic pressure sore injury right hip/trochanteric area was infiltrated. After waiting 5 minutes for the anesthetic to take effect, I proceeded with excision of this necrotic pressure sore injury around the area of skin necrosis down into the subcutaneous tissue. A lot of fat necrosis was present. No pus was seen. Dissection was carried down to the muscle. Necrotic muscle was present which was excised and debrided. There was remaining muscle that was viable. The necrotic muscle did not extend down to the bone. Therefore no bone was excised today. The soft tissue was sent to Pathology for analysis to rule out carcinoma and some of the soft tissue was sent to Microbiology for culture. A positive culture will necessitate antibiotic therapy. The size of the defect right hip/trochanteric area was 11 x 13 x 2 cm or 143 cm2. The wound was irrigated with saline. Hemostasis was obtained with electrocautery. Since the pressure sore injury extended into the muscle and included necrotic muscle, this is a Stage IV pressure sore injury. The wound was then closed with Mepitel nonadherent dressing followed by Kerlix gauze and Betadine and dry Kerlix gauze and ABD pads compression dressing. Patient tolerated the procedure well and was sent to PACU in satisfactory condition. Patient will be sent upstairs for continued postop care. The VAC will be applied tomorrow. Grafts/Implants Used: None. - Complications None. - Admit VTE Documentation VTE Present on Admission: No VTE Mechan Device Prophylaxis: SCD's VTE Pharm Prophylaxis ordered?: Yes Surgery Charges CPT - 22587 ICD-10 - L89.214, I96, A41.9, N30.90, F10.10, F17.200
[2020-06-28] MEDS: Thiamine Hydrochloride 100 MG Tablet PO (09:55)
[2020-06-28] MEDS: Metoprolol Tartrate 25 MG Tablet PO ×2 (09:55→21:11)
[2020-06-28] MEDS: Glucerna Shake 120 ML LIQUID PO ×4 (09:58→21:11)
[2020-06-28] MEDS: Folic Acid 1 MG Tablet PO (09:58)
[2020-06-28] MEDS: Juven (unflavored) Packet 1 PACKET PO ×2 (09:58→18:29)
--- NOTE | 2020-06-28 12:18 | PCM.RX.CS ---
Consult Pharmacy has been consulted to manage selected antiobiotic: Vancomycin Type of Consult: Follow-up Prior Doses of Antibiotics Received/Current Regimen: previous dose was 1000mg q12h but that was held yesterday due to a high trough of 20.2 Labs: Sodium 141 mmol/L (136-145) 06/28/20 05:35 Potassium 3.5 mmol/L (3.5-5.1) 06/28/20 05:35 Chloride 107 mmol/L (98-107) 06/28/20 05:35 Carbon Dioxide 31.0 mmol/L (21.0-32.0) 06/28/20 05:35 Anion Gap 3 (5-15) L 06/28/20 05:35 BUN 14 mg/dL (7-18) 06/28/20 05:35 Creatinine 0.52 mg/dL (0.55-1.02) L 06/28/20 05:35 Est GFR (MDRD) Af Amer 150 mL/min (>60) 06/28/20 05:35 Est GFR (MDRD) Non-Af 124 mL/min (>60) 06/28/20 05:35 BUN/Creatinine Ratio 27.1 RATIO (10-20) H 06/28/20 05:35 Glucose 122 mg/dL (74-106) H 06/28/20 05:35 Vancomycin Trough 20.2 ug/mL (5.0-15.0) H 06/27/20 09:20 Random Vancomycin 8.7 ug/mL (0.0-15.0) 06/28/20 05:35 Microbiology: Microbiology 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 - Preliminary 06/23/20 20:45 Blood Culture (Wb) - Anticubital Left Blood Culture - Final Escherichia coli 06/23/20 21:15 Urine Catheter - Funk Urine Culture - Final Presumptive E. coli 06/24/20 16:30 Stool C. difficile DNA Amplification - Final 06/23/20 21:15 Mucosa - Nose SARS-CoV-2 Antigen (Rapid) - Final Weight used for dosin kg Goal Trough: 15-20 mcg/mL Pharmacy Plan for Drug Dosing: The vanc random level drawn this morning at 05:35 was 8.7. This is well below 20 so dosing can be restarted today. Will resume at 750mg IV q12h and repeat a trough level again before the 4th dose. Dosing was delayed a few hours due to the patient being in surgery. Pharmacy Service will continue to monitor and adjust dosing as required. Follow-Up Labs: Trough Vancomycin Labs to be done on [date and time ordered]: 06/29/20 22:30
[2020-06-28] MEDS: oxyCODONE 5 MG Tablet PO ×2 (13:32→22:02)
--- NOTE | 2020-06-28 15:01 | CASEMGMT ---
SAM met with patient. SW re-introduced self in case patient did not remember. SAM explained to patient that SW is trying to help her get to a senior living for rehab and recovery for her wound. SW reminded her that she does not have Medicare days so going to a senior living will be private pay. SW asked her if she would be able to pay for this. She said she doesn't think she has enough to pay for all of it. SW asked her if she knows how much money she has in the bank. She was not sure. SW asked if it was more than $3,000 and she said it is probably less than this. SW asked if she knows what bank she uses and she was not sure. At first she thought it was [facility] then she was not sure. SW asked if her friend, Valentin would be able to go to her house and get her checkbook and bring it in to her. She said she was not sure if he would. SAM asked if SW could call him and ask if he could do this. She was okay with SW calling him. SAM asked if she has anyone else that may be willing to help her. She said she has brothers, but they don't get along. (Her brother refused to consent for surgery the other day when patient was confused as he is afraid of being sued by patient.) SW asked if she has any children and she said she does not. SW also brought up conservatorship. SAM explained this would be someone assigned by the court to help her manage her finances. SW asked if she would be willing to do this. She said she would not as she has heard horror stories about that kind of stuff. SAM called Valentin and explained we are trying to help patient get to a senior living when she is discharged. However, she will have to pay for it or at least as much as she can. SAM explained she needs her check book so we can figure out which bank she uses so she can find out how much money she has. He said he doesn't know why she doesn't have Medicaid already. SAM explained to him that she applied when she was at [facility] and at that time she was over the income limit. He said he thinks she told him she only gets $300 per month. SAM again asked if he would be willing to go to her home, get her check book, and bring it in to her. He said he talked with APS when she was at [facility] last time and they asked all of the same questions. He said he doesn't know about her income. Then in the next sentence he said he isn't comfortable giving this information to SW. SAM told him SW is not asking him to give SW patient's income, but SW is asking if he would be willing to go to her home get her checkbook and bring it to patient at [facility]. He said patient needs to call him and ask this before he would do it. SW went to patient's room and let her know that Valentin may be willing to bring in her checkbook, but she needs to call him and ask. SAM explained to her that SAM is trying to help her, but SW needs her to help SW as well. SAM told her that we need to know what bank she uses so she can call and find out how much money she has. Then we can at least let the SNF know how much she can afford and we can help her apply for Medicaid. Having Medicaid would help her tremendously as it would help pay for her medical care so she wouldn't have those bills hanging out there stressing her out. She said she understands. SAM reiterated to her that SW needs her to call Valentin and ask if he can bring her checkbook into [facility] so SW can help her get to a senior living and apply for Medicaid. SAM will check back tomorrow and if patient has not called Valentin VARGAS will see if SAM can assist her in doing so. Zoe EBAR
[2020-06-28 15:02] LABS: Pathologist Review Reviewed
--- NOTE | 2020-06-28 15:50 | PN_ITS ---
Patient Problems: Active and Suspected Problems Severe sepsis (Acute) Reason for Visit: severe sepsis Subjective: Pt did eventually agree to debridement and underwent excision today by Dr. Saeed. Vitals/I&O's: Vital Signs Temp Pulse Resp BP Pulse Ox 36.5 C L 103 H 18 123/58 H 95 06/28/20 10:00 06/28/20 10:00 06/28/20 10:00 06/28/20 10:00 06/28/20 10:00 Oxygen Delivery Method Room Air Weight: 57 kg Body Mass Index (BMI) 20.2 Finger Stick Blood Glucose 103 Intake and Output for Last 24 Hours 06/26/20 06/27/20 06/28/20 23:59 23:59 23:59 Intake Total 890 / 1130 743.33 / 793.33 655 / 655 Output Total 2475 / 2775 1500 / 1900 2450 / 2450 Balance -1585 / -1645 -756.67 / -1106.67 -1795 / -1795 General: Alert, No apparent distress HEENT: Atraumatic, Normocephalic Oral: Moist Mucosa, No Gingival or Mucosal Lesions/ Ulcerations Neck: No Nodes, Thyroid Normal Size and Texture Lungs: Clear to auscultation, Normal air movement, No rhonchi, No wheeze, No rales Cardiovascular: Regular rate, Regular Rhythm, Normal S1, Normal S2, No murmurs Abdomen: Bowel Sounds Present, Soft, Non Tender, Non-Distended, No Hepato- splenomegaly Extremities: No edema, No Calf Tenderness Skin: No rashes, No breakdown Microbiology Past 72 Hours 06/28/20 09:09 Tissue - Hip Gram Stain - Final 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 - Preliminary 06/23/20 20:45 Blood Culture (Wb) - Anticubital Left Blood Culture - Final Escherichia coli 06/23/20 21:15 Urine Catheter - Funk Urine Culture - Final Presumptive E. coli Laboratory Results 06/28/20 05:35: WBC 7.1, RBC 3.34 L, Hgb 9.6 L, Hct 29.8 L, MCV 89.2, MCH 28.7, MCHC 32.2, RDW Std Deviation 59.5 H, RDW Coeff of Jonathan 18.5 H, Plt Count 242, MPV 8.9, Neut % (Auto) Not Reportable, Absolute Neuts (auto) 4.9, Absolute Lymphs (auto) 1.49, Total Counted 100, Neutrophils % (Manual) 67, Band Neutrophils % 2, Lymphocytes % (Manual) 21, Monocytes % (Manual) 4, Eosinophils % (Manual) 3, Metamyelocytes % 2 H, Myelocytes % 1 H, Diff Path Review Reviewed, Atypical Lymphocytes 1+, Platelet Estimate ADEQUATE, Anisocytosis RARE, Macrocytosis RARE 06/28/20 05:35: Sodium 141, Potassium 3.5, Chloride 107, Carbon Dioxide 31.0, Anion Gap 3 L, BUN 14, Creatinine 0.52 L, Estim Creat Clear Calc 45.76, Est GFR (MDRD) Af Amer 150, Est GFR (MDRD) Non-Af 124, BUN/Creatinine Ratio 27.1 H, Glucose 122 H, Calcium 8.0 L 06/28/20 05:35: Random Vancomycin 8.7 Current Medications Calamine/Phenol (Menthol/Lanolin/Calamine/Znox 113 Gm Tube) 1 applic TOPICAL TID [facility]; Protocol Last Admin: 06/28/20 13:36 Dose: 1 applicatio Documented by: Dicyclomine HCl (Dicyclomine 10 Mg Capsule) 20 mg PO Q6H PRN PRN PRN Reason: abdominal discomfort Enoxaparin Sodium (Enoxaparin 40 Mg/0.4 Ml Syringe) 40 mg SC DAILY@0600 [facility] Last Admin: 06/28/20 06:47 Dose: Not Given Documented by: Folic Acid (Folic Acid 1 Mg Tablet) 1 mg PO DAILY@0800 [facility] Last Admin: 06/28/20 09:58 Dose: 1 mg Documented by: Gabapentin (Gabapentin 300 Mg Capsule) 300 mg PO Q8H PRN PRN PRN Reason: moderate to severe anxiety Hydroxyzine Pamoate (Hydroxyzine Crystal 25 Mg Capsule) 50 mg PO Q4H PRN PRN PRN Reason: mild anxiety Vancomycin IV Pharmacy to Dose (1 ea/ Sodium Chloride) 500 mls @ 250 mls/hr IV X1 PRN; Protocol PRN Reason: Rx to Dose Piperacillin Sod/Tazobactam (Sod 3.375 gm/ Sodium Chloride) 50 mls @ 12.5 mls/hr IV Q8 [facility] Last Admin: 06/28/20 13:32 Dose: 12.5 mls/hr Documented by: Vancomycin HCl 750 mg/ Sodium (Chloride) 265 mls @ 250 mls/hr IV Q12H [facility] Last Infusion: 06/28/20 12:35 Dose: Infused Documented by: L-Arginine/L-Glutamine/Calcium HMB ([facility] (Unflavored) Packet) [facility] Last Admin: 06/28/20 09:58 Dose: 1 packet Documented by: Loperamide HCl (Loperamide 2 Mg Capsule) 2 mg PO Q4H PRN PRN PRN Reason: LOOSE STOOLS Last Admin: 06/24/20 22:10 Dose: 2 mg Documented by: Metoprolol Tartrate (Metoprolol Tartrate 25 Mg Tablet) 25 mg PO BID [facility] Last Admin: 06/28/20 09:55 Dose: 25 mg Documented by: Morphine Sulfate (Morphine 2 Mg/Ml Syringe) 2 mg IV Q3H PRN PRN PRN Reason: Pain Score 6-10 Last Admin: 06/28/20 01:28 Dose: 2 mg Documented by: Nutritional Formula (Lactose Free) (Glucerna Shake 120 Ml Liquid) 120 ml PO 4X/DAY [facility] Last Admin: 06/28/20 13:36 Dose: 120 ml Documented by: Ondansetron HCl (Ondansetron 4 Mg/2 Ml Vial) 4 mg IV Q8H PRN PRN PRN Reason: NAUSEA/VOMITING Ondansetron HCl (Ondansetron 8 Mg Tablet) 8 mg PO Q8H PRN PRN PRN Reason: NAUSEA Oxycodone HCl (Oxycodone 5 Mg Tablet) 5 mg PO Q8H PRN PRN PRN Reason: Pain Score 6-10 Last Admin: 06/28/20 13:32 Dose: 5 mg Documented by: Senna/Docusate Sodium (Senna/Docusate Sodium 1 Tablet) 2 tablet PO BID PRN PRN PRN Reason: Constipation Sodium Chloride (0.9% Saline Lock 10 Ml Syringe) 10 - 40 ml IV UD PRN PRN Reason: SALINE FLUSH Last Admin: 06/28/20 01:31 Dose: 10 ml Documented by: Thiamine HCl (Thiamine Hydrochloride 100 Mg Tablet) [facility] Last Admin: 06/28/20 09:55 Dose: 100 mg Documented by: Trazodone HCl (Trazodone 100 Mg Tablet) 100 mg PO QHS PRN PRN Reason: INSOMNIA Medical Necessity - Tobacco Use Smoking Status: Current some day smoker Assessment/Plan All Active Problems Pressure injury of trochanteric region of right hip, unstageable (Acute) Skin necrosis (Acute) Cystitis (Acute) Severe sepsis (Acute) 1. Severe sepsis * 2/2 Right leg cellulitis * resolved 2. RLE cellulitis * 2/2 pressure ulcer on LLE * on pip/tazo and vanc * no abscess or bony infection on CT * 06/28: excision necrotic pressure sore right hip/trochanteric area including necrotic muscles 3. bactermia * E. coli * on pip/tazo * UCx + E. coli, so UTI maybe the source 4. alcohol abuse * stable * on phenobarbital, thiamine and folate 5. Debility * SNF upon discharge 6. VTE prophylaxis: LMWH Inpatient E&M: 50077 Subs Hosp L2
--- NOTE | 2020-06-28 17:38 | PN.ID_ITS ---
Patient Problems: Active and Suspected Problems Severe sepsis (Acute) Subjective: Sleeping this afternoon sp OR. No fever. - Physical Exam Vitals/I&O's: Vital Signs Temp Pulse Resp BP Pulse Ox 97.7 F L 103 H 18 123/58 H 95 06/28/20 10:00 06/28/20 10:00 06/28/20 10:00 06/28/20 10:00 06/28/20 16:00 Oxygen Delivery Method Room Air Weight: 57 kg Body Mass Index (BMI) 20.2 Finger Stick Blood Glucose 103 Intake and Output for Last 24 Hours 06/26/20 06/27/20 06/28/20 23:59 23:59 23:59 Intake Total 890 / 1130 743.33 / 793.33 655 / 655 Output Total 2475 / 2775 1500 / 1900 2450 / 2450 Balance -1585 / -1645 -756.67 / -1106.67 -1795 / -1795 General: No apparent distress Lungs: Clear to auscultation, Normal air movement Cardiovascular: Regular rate, Regular Rhythm Abdomen: Soft, Non Tender, Non-Distended Skin: Ulcer/ Wound Microbiology Past 72 Hours 06/28/20 09:09 Tissue - Hip Gram Stain - Final 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 - Preliminary 06/23/20 20:45 Blood Culture (Wb) - Anticubital Left Blood Culture - Final Escherichia coli 06/23/20 21:15 Urine Catheter - Funk Urine Culture - Final Presumptive E. coli Laboratory Results 06/28/20 05:35: WBC 7.1, RBC 3.34 L, Hgb 9.6 L, Hct 29.8 L, MCV 89.2, MCH 28.7, MCHC 32.2, RDW Std Deviation 59.5 H, RDW Coeff of Jonathan 18.5 H, Plt Count 242, MPV 8.9, Neut % (Auto) Not Reportable, Absolute Neuts (auto) 4.9, Absolute Lymphs (auto) 1.49, Total Counted 100, Neutrophils % (Manual) 67, Band Neutrophils % 2, Lymphocytes % (Manual) 21, Monocytes % (Manual) 4, Eosinophils % (Manual) 3, Metamyelocytes % 2 H, Myelocytes % 1 H, Diff Path Review Reviewed, Atypical Lymphocytes 1+, Platelet Estimate ADEQUATE, Anisocytosis RARE, Macrocytosis RARE 06/28/20 05:35: Sodium 141, Potassium 3.5, Chloride 107, Carbon Dioxide 31.0, Anion Gap 3 L, BUN 14, Creatinine 0.52 L, Estim Creat Clear Calc 45.76, Est GFR (MDRD) Af Amer 150, Est GFR (MDRD) Non-Af 124, BUN/Creatinine Ratio 27.1 H, Glucose 122 H, Calcium 8.0 L 06/28/20 05:35: Random Vancomycin 8.7 Current Medications Calamine/Phenol (Menthol/Lanolin/Calamine/Znox 113 Gm Tube) 1 applic TOPICAL TID [facility]; Protocol Last Admin: 06/28/20 13:36 Dose: 1 applicatio Documented by: Dicyclomine HCl (Dicyclomine 10 Mg Capsule) 20 mg PO Q6H PRN PRN PRN Reason: abdominal discomfort Enoxaparin Sodium (Enoxaparin 40 Mg/0.4 Ml Syringe) 40 mg SC DAILY@0600 [facility] Last Admin: 06/28/20 06:47 Dose: Not Given Documented by: Folic Acid (Folic Acid 1 Mg Tablet) 1 mg PO DAILY@0800 [facility] Last Admin: 06/28/20 09:58 Dose: 1 mg Documented by: Gabapentin (Gabapentin 300 Mg Capsule) 300 mg PO Q8H PRN PRN PRN Reason: moderate to severe anxiety Hydroxyzine Pamoate (Hydroxyzine Crystal 25 Mg Capsule) 50 mg PO Q4H PRN PRN PRN Reason: mild anxiety Vancomycin IV Pharmacy to Dose (1 ea/ Sodium Chloride) 500 mls @ 250 mls/hr IV X1 PRN; Protocol PRN Reason: Rx to Dose Piperacillin Sod/Tazobactam (Sod 3.375 gm/ Sodium Chloride) 50 mls @ 12.5 mls/hr IV Q8 [facility] Last Admin: 06/28/20 13:32 Dose: 12.5 mls/hr Documented by: Vancomycin HCl 750 mg/ Sodium (Chloride) 265 mls @ 250 mls/hr IV Q12H [facility] Last Infusion: 06/28/20 12:35 Dose: Infused Documented by: L-Arginine/L-Glutamine/Calcium HMB (Timothy (Unflavored) Packet) 1 packet PO BIDCM [facility] Last Admin: 06/28/20 09:58 Dose: 1 packet Documented by: Loperamide HCl (Loperamide 2 Mg Capsule) 2 mg PO Q4H PRN PRN PRN Reason: LOOSE STOOLS Last Admin: 06/24/20 22:10 Dose: 2 mg Documented by: Metoprolol Tartrate (Metoprolol Tartrate 25 Mg Tablet) 25 mg PO BID [facility] Last Admin: 06/28/20 09:55 Dose: 25 mg Documented by: Morphine Sulfate (Morphine 2 Mg/Ml Syringe) 2 mg IV Q3H PRN PRN PRN Reason: Pain Score 6-10 Last Admin: 06/28/20 01:28 Dose: 2 mg Documented by: Nutritional Formula (Lactose Free) (Glucerna Shake 120 Ml Liquid) 120 ml PO 4X/DAY [facility] Last Admin: 06/28/20 13:36 Dose: 120 ml Documented by: Ondansetron HCl (Ondansetron 4 Mg/2 Ml Vial) 4 mg IV Q8H PRN PRN PRN Reason: NAUSEA/VOMITING Ondansetron HCl (Ondansetron 8 Mg Tablet) 8 mg PO Q8H PRN PRN PRN Reason: NAUSEA Oxycodone HCl (Oxycodone 5 Mg Tablet) 5 mg PO Q8H PRN PRN PRN Reason: Pain Score 6-10 Last Admin: 06/28/20 13:32 Dose: 5 mg Documented by: Senna/Docusate Sodium (Senna/Docusate Sodium 1 Tablet) 2 tablet PO BID PRN PRN PRN Reason: Constipation Sodium Chloride (0.9% Saline Lock 10 Ml Syringe) 10 - 40 ml IV UD PRN PRN Reason: SALINE FLUSH Last Admin: 06/28/20 01:31 Dose: 10 ml Documented by: Thiamine HCl (Thiamine Hydrochloride 100 Mg Tablet) [facility] Last Admin: 06/28/20 09:55 Dose: 100 mg Documented by: Trazodone HCl (Trazodone 100 Mg Tablet) 100 mg PO QHS PRN PRN Reason: INSOMNIA Medical Necessity - Tobacco Use Smoking Status: Current some day smoker Route of nutrition/ use of supplements: [] Nutritional Intake: [] IV Site: [] Funk Catheter: [] - Assessment/Plan Antibiotics: [] Assessment/Plan: [] Active and Suspected Problems Severe sepsis (Acute) Infected R hip wound after being down on floor for several days with incontinence - now s/p OR 06/[address] Saeed, surg cx pending. Bcx with ecoli, covid Ag neg, cdiff neg. Cont vanc/zosyn. Will follow
[2020-06-29] VITALS (11 sets, daily range): BP systolic 104–137; BP diastolic 48–74; PULSE 91–101; RESP 17–18; TEMP 36.7–37.2; O2SAT 96–99
[2020-06-29] MEDS: Morphine 2 MG/ML Syringe IV ×3 (00:45→12:41)
[2020-06-29] MEDS: Enoxaparin 40 MG/0.4 ML Syringe SC (05:11)
[2020-06-29] MEDS: Menthol/Lanolin/Calamine/Znox 113 GM Tube 1 APPLIC TOPICAL ×3 (05:11→21:54)
[2020-06-29 06:10] LABS: Hematocrit 27.9 % (37-47); Hemoglobin 8.7 g/dL (12.0-15.0); Mean Corp Hgb Conc 31.2 g/dL (32-36); Mean Corpuscular Hgb 28.3 pg (27.0-32.0); Mean Corpuscular Volume 90.9 fL (81-99); Platelet Count 316 K/mm3 (150-450); RBC Distribution Width CV 18.6 % (11.6-14.6); Red Blood Count 3.07 M/mm3 (4.2-5.4); White Blood Count 7.2 K/mm3 (4.4-11.0)
[2020-06-29 06:38] LABS: Anion Gap 7 (5-15); BUN 13 mg/dL (7-18); BUN/Creat Ratio 19.3 RATIO (10-20); Calcium,Total 7.4 mg/dL (8.5-10.1); Chloride 105 mmol/L (98-107); Creatinine, Serum 0.67 mg/dL (0.55-1.02); EST Glomerular Filtration Rate 91 mL/min (>60); Est Glom Filt Rate - Afr Amer 111 mL/min (>60); Estimated Creatinine Clearance 45.76 ml/min; Glucose 281 mg/dL (74-106); Potassium 3.7 mmol/L (3.5-5.1); Sodium Level 137 mmol/L (136-145)
[2020-06-29] MEDS: oxyCODONE 5 MG Tablet PO ×2 (08:36→16:52)
[2020-06-29] MEDS: Juven (unflavored) Packet 1 PACKET PO ×2 (08:40→16:52)
[2020-06-29] MEDS: Thiamine Hydrochloride 100 MG Tablet PO (08:40)
[2020-06-29] MEDS: Folic Acid 1 MG Tablet PO (08:40)
[2020-06-29] MEDS: Metoprolol Tartrate 25 MG Tablet PO ×2 (08:41→21:57)
[2020-06-29] MEDS: Glucerna Shake 120 ML LIQUID PO ×4 (08:41→22:04)
--- NOTE | 2020-06-29 11:04 | NURSING ---
wound photo: right hip
--- NOTE | 2020-06-29 12:23 | CASEMGMT ---
Addendum entered by Zoe Egan 06/29/20 14:16: SAM called Wenceslao with Adult Protective Services to update her on situation and see if there is anything else they can offer. Zoe ALVAREZ TILE DECORATOR Original Note: SAM spoke with patient this am. SW asked if she had a chance to call Valentin about helping her get her check book. She said she did not. SAM asked if SW could help her call him while SW is in the room. She said he mooches off of her and he probably won't do anything. SAM called Valentin and told him it was SW and SW is in the room with patient. He would not talk with SW and asked if he could talk to patient. SAM gave patient the phone. SW could hear everything Valentin was saying. He told patient that they meaning SW called him yesterday asking how much money she makes and he said, I didn't tell them anything. Patient then responded, Good for you. He went on to say They are just after your money and I'm not sure what games they are playing with you. He continued to tell patient things related to the previous statements about people trying to get her money. Patient continued to agree with him and play along. SW then asked if SW could talk with him again. SAM told Valentin that no one is after patient's money. SAM explained we are trying to help patient as she needs to go to a assisted. She cannot walk and she had surgery on a wound she has from lying on the floor for days in her own bodily waste. SAM explained that patient has used all of her Medicare days that pay for assisted care which is 100 days. SAM told him the only way she can go to a assisted is to private pay or apply for Medicaid which is why SAM is trying to get her income information. Nursing homes want money up front. SAM explained that when she applied for Medicaid in the past she did not qualify as she had too much money. SAM told him if SW could find out her current income and see that she may qualify for Medicaid SAM plans on helping her apply. SW cannot help her apply for Medicaid without her income. He said she told him that she only gets $300 a month. SW told him that is fine, but we cannot go off of hearsay and [employer] will need proof of income. Patient has not told SW that she gets $300 a month. She has only told SW she does not remember her bank or even how much money she has in the bank. She would only say less than $3,000 when SW asked. He told SW she knows what bank she uses she just isn't telling you. He said the system wants her money just so she can lay in a assisted. SAM told him SW is sorry he feels that way, but she will get wound care and therapy while at the facility. SW asked what he thinks her discharge plan should be and he did not have a response. He said patient wants to talk with him without SW being present in the room. SW then gave patient the phone and told her SW will leave the room so she can talk with him. Unfortunately this is a set back in patient's discharge planning process. It is obvious that we are not getting anywhere with patient's friend. At the moment it is not known if patient truly does not know about her income or if she is just not sharing this with SW. SAM will continue to work on a discharge plan. Zoe ALVAREZ MSW
--- NOTE | 2020-06-29 13:52 | PCM.PN.SRG ---
Patient Problems: Active and Suspected Problems Severe sepsis (Acute) Subjective: Post op day #1 Patient sleeping in bed. - Physical Exam Vitals/I&O's: Vital Signs Temp Pulse Resp BP Pulse Ox 98.1 F 99 18 104/51 L 97 06/29/20 08:33 06/29/20 08:41 06/29/20 08:33 06/29/20 08:41 06/29/20 08:33 Oxygen Delivery Method Room Air Weight: 125 lb 10.616 oz Body Mass Index (BMI) 20.2 Finger Stick Blood Glucose 103 Intake and Output for Last 24 Hours 06/27/20 06/28/20 06/29/20 23:59 23:59 23:59 Intake Total 743.33 / 793.33 970 / 970 365 / 365 Output Total 1500 / 1900 2450 / 2450 775 / 775 Balance -756.67 / -1106.67 -1480 / -1480 -410 / -410 General: Confused, Non-Cooperative HEENT: Atraumatic Oral: Moist Mucosa Lungs: Normal air movement Cardiovascular: Regular rate Extremities: Capillary Refill Less than 3 Seconds Skin: Ulcer/ Wound - Right hip wound is stable, no active bleeding. Wound VAC placed earlier today. Wound photo reviewed. Musculoskeletal: Tenderness Neurological: Cranial nerves II-XII grossly intact Psych/Mental Status: Irrational Behavior Microbiology Past 72 Hours 06/28/20 09:09 Tissue - Hip Gram Stain - Final 06/28/20 09:09 Tissue - Hip Wound Culture - Preliminary Gram negative roland Mixed Gram Positive Organisms Laboratory Results 06/28/20 05:35: Diff Path Review Reviewed 06/29/20 05:58: WBC 7.2, RBC 3.07 L, Hgb 8.7 L, Hct 27.9 L, MCV 90.9, MCH 28.3, MCHC 31.2 L, RDW Std Deviation 61.0 H, RDW Coeff of Jonathan 18.6 H, Plt Count 316, MPV 9.0 06/29/20 05:58: Sodium 137, Potassium 3.7, Chloride 105, Carbon Dioxide 25.0, Anion Gap 7, BUN 13, Creatinine 0.67, Estim Creat Clear Calc 45.76, Est GFR (MDRD) Af Amer 111, Est GFR (MDRD) Non-Af 91, BUN/Creatinine Ratio 19.3, Glucose 281 H, Calcium 7.4 L Current Medications Calamine/Phenol (Menthol/Lanolin/Calamine/Znox 113 Gm Tube) 1 applic TOPICAL TID [facility]; Protocol Last Admin: 06/29/20 13:42 Dose: 1 applicatio Documented by: Dicyclomine HCl (Dicyclomine 10 Mg Capsule) 20 mg PO Q6H PRN PRN PRN Reason: abdominal discomfort Enoxaparin Sodium (Enoxaparin 40 Mg/0.4 Ml Syringe) 40 mg SC DAILY@0600 [facility] Last Admin: 06/29/20 05:11 Dose: 40 mg Documented by: Folic Acid (Folic Acid 1 Mg Tablet) 1 mg PO DAILY@0800 [facility] Last Admin: 06/29/20 08:40 Dose: 1 mg Documented by: Gabapentin (Gabapentin 300 Mg Capsule) 300 mg PO Q8H PRN PRN PRN Reason: moderate to severe anxiety Hydroxyzine Pamoate (Hydroxyzine Crystal 25 Mg Capsule) 50 mg PO Q4H PRN PRN PRN Reason: mild anxiety Vancomycin IV Pharmacy to Dose (1 ea/ Sodium Chloride) 500 mls @ 250 mls/hr IV X1 PRN; Protocol PRN Reason: Rx to Dose Piperacillin Sod/Tazobactam (Sod 3.375 gm/ Sodium Chloride) 50 mls @ 12.5 mls/hr IV Q8 [facility] Last Admin: 06/29/20 13:42 Dose: 12.5 mls/hr Documented by: Vancomycin HCl 750 mg/ Sodium (Chloride) 265 mls @ 250 mls/hr IV Q12H [facility] Last Infusion: 06/29/20 12:20 Dose: Infused Documented by: L-Arginine/L-Glutamine/Calcium HMB ([facility] (Unflavored) Packet) [facility] Admin: 06/29/20 08:40 Dose: 1 packet Documented by: Loperamide HCl (Loperamide 2 Mg Capsule) 2 mg PO Q4H PRN PRN PRN Reason: LOOSE STOOLS Last Admin: 06/24/20 22:10 Dose: 2 mg Documented by: Metoprolol Tartrate (Metoprolol Tartrate 25 Mg Tablet) 25 mg PO BID [facility] Last Admin: 06/29/20 08:41 Dose: 25 mg Documented by: Morphine Sulfate (Morphine 2 Mg/Ml Syringe) 2 mg IV Q3H PRN PRN PRN Reason: Pain Score 6-10 Last Admin: 06/29/20 12:41 Dose: 2 mg Documented by: Nutritional Formula (Lactose Free) (Glucerna Shake 120 Ml Liquid) 120 ml PO 4X/DAY [facility] Last Admin: 06/29/20 13:43 Dose: 120 ml Documented by: Ondansetron HCl (Ondansetron 4 Mg/2 Ml Vial) 4 mg IV Q8H PRN PRN PRN Reason: NAUSEA/VOMITING Ondansetron HCl (Ondansetron 8 Mg Tablet) 8 mg PO Q8H PRN PRN PRN Reason: NAUSEA Oxycodone HCl (Oxycodone 5 Mg Tablet) 5 mg PO Q8H PRN PRN PRN Reason: Pain Score 6-10 Last Admin: 06/29/20 08:36 Dose: 5 mg Documented by: Senna/Docusate Sodium (Senna/Docusate Sodium 1 Tablet) 2 tablet PO BID PRN PRN PRN Reason: Constipation Sodium Chloride (0.9% Saline Lock 10 Ml Syringe) 10 - 40 ml IV UD PRN PRN Reason: SALINE FLUSH Last Admin: 06/28/20 01:31 Dose: 10 ml Documented by: Thiamine HCl (Thiamine Hydrochloride 100 Mg Tablet) [facility] Last Admin: 06/29/20 08:40 Dose: 100 mg Documented by: Trazodone HCl (Trazodone 100 Mg Tablet) 100 mg PO QHS PRN PRN Reason: INSOMNIA Medical Necessity - Tobacco Use Smoking Status: Current some day smoker Assessment/Plan All Active Problems Pressure injury of trochanteric region of right hip, unstageable (Acute) Skin necrosis (Acute) Cystitis (Acute) Severe sepsis (Acute) 1. Necrotic pressure sore injury right hip/trochanteric area. 2. Sepsis. 3. Cystitis. 4. Alcohol abuse. 5. Smoker. Patient has a necrotic pressure sore injury right hip/trochanteric area that developed when she passed out for a couple of days. She has a history of alcohol abuse. In ED her WBC was 20.5. Her Lactate was 3.4. She was started on Vancomycin and Zosyn. Her WBC today is 7.2. She also has an associated cystitis. She is one day post op from a debridement of her necrotic pressure injury to her right hip. Wound is stable. No active bleeding. Wound VAC placed earlier today at 150 mmHg. Preliminary operative cultures positive for Gram negative roland and Mixed gram positive organisms. She is currently on Vancomycin and Zosyn. ID is also consulted. CT from 06/26/20 showed No bony abnormality is seen. There is evidence of the increased markings in the subcutaneous tissues overlying the right hemipelvis and right buttock region suggestive of subcutaneous edema most likely secondary to the history of trauma. No focal abscess or fluid collection is seen. Prealbumin 7.3 from 06/27/19, encourage nutritional supplementation with protein to help the healing process. Hgb 8.7 today, down from 9.6 yesterday before her surgery. EBL 50 ml from surgery, plus IV dilution. After discharge, [facility]. If there is a plateau in the healing process, can proceed with delayed closure with skin graft or a muscle flap or a fasciocutaneous flap reconstruction. Social work is involved with trying to have patient go to a facility after discharge to help with wound care and her physical debility. Encouraged patient to stop smoking as it may have deleterious effects on wound healing.
--- NOTE | 2020-06-29 13:54 | PCM.PN.HOSP ---
Patient Problems: Active and Suspected Problems Severe sepsis (Acute) Reason for Visit: severe sepsis Subjective: Hurts all over. Vitals/I&O's: Vital Signs Temp Pulse Resp BP Pulse Ox 36.7 C 99 18 104/51 L 97 06/29/20 08:33 06/29/20 08:41 06/29/20 08:33 06/29/20 08:41 06/29/20 08:33 Oxygen Delivery Method Room Air Weight: 57 kg Body Mass Index (BMI) 20.2 Finger Stick Blood Glucose 103 Intake and Output for Last 24 Hours 06/27/20 06/28/20 06/29/20 23:59 23:59 23:59 Intake Total 743.33 / 793.33 970 / 970 365 / 365 Output Total 1500 / 1900 2450 / 2450 775 / 775 Balance -756.67 / -1106.67 -1480 / -1480 -410 / -410 General: Alert, No apparent distress HEENT: Atraumatic, Normocephalic Oral: Moist Mucosa, No Gingival or Mucosal Lesions/ Ulcerations Neck: No Nodes, Thyroid Normal Size and Texture Lungs: Clear to auscultation, Normal air movement, No rhonchi, No wheeze, No rales Cardiovascular: Regular rate, Regular Rhythm, Normal S1, Normal S2, No murmurs Abdomen: Bowel Sounds Present, Soft, Non Tender, Non-Distended, No Hepato-splenomegaly Extremities: No edema, No Calf Tenderness Psych/Mental Status: Normal Affect, Appropriate Microbiology Past 72 Hours 06/28/20 09:09 Tissue - Hip Gram Stain - Final 06/28/20 09:09 Tissue - Hip Wound Culture - Preliminary Gram negative roland Mixed Gram Positive Organisms Laboratory Results 06/28/20 05:35: Diff Path Review Reviewed 06/29/20 05:58: WBC 7.2, RBC 3.07 L, Hgb 8.7 L, Hct 27.9 L, MCV 90.9, MCH 28.3, MCHC 31.2 L, RDW Std Deviation 61.0 H, RDW Coeff of Jonathan 18.6 H, Plt Count 316, MPV 9.0 06/29/20 05:58: Sodium 137, Potassium 3.7, Chloride 105, Carbon Dioxide 25.0, Anion Gap 7, BUN 13, Creatinine 0.67, Estim Creat Clear Calc 45.76, Est GFR (MDRD) Af Amer 111, Est GFR (MDRD) Non-Af 91, BUN/Creatinine Ratio 19.3, Glucose 281 H, Calcium 7.4 L Current Medications Calamine/Phenol (Menthol/Lanolin/Calamine/Znox 113 Gm Tube) 1 applic TOPICAL TID [facility]; Protocol Last Admin: 06/29/20 13:42 Dose: 1 applicatio Documented by: Dicyclomine HCl (Dicyclomine 10 Mg Capsule) 20 mg PO Q6H PRN PRN PRN Reason: abdominal discomfort Enoxaparin Sodium (Enoxaparin 40 Mg/0.4 Ml Syringe) 40 mg SC DAILY@0600 [facility] Last Admin: 06/29/20 05:11 Dose: 40 mg Documented by: Folic Acid (Folic Acid 1 Mg Tablet) 1 mg PO DAILY@0800 [facility] Last Admin: 06/29/20 08:40 Dose: 1 mg Documented by: Gabapentin (Gabapentin 300 Mg Capsule) 300 mg PO Q8H PRN PRN PRN Reason: moderate to severe anxiety Hydroxyzine Pamoate (Hydroxyzine Crystal 25 Mg Capsule) 50 mg PO Q4H PRN PRN PRN Reason: mild anxiety Vancomycin IV Pharmacy to Dose (1 ea/ Sodium Chloride) 500 mls @ 250 mls/hr IV X1 PRN; Protocol PRN Reason: Rx to Dose Piperacillin Sod/Tazobactam (Sod 3.375 gm/ Sodium Chloride) 50 mls @ 12.5 mls/hr IV Q8 [facility] Last Admin: 06/29/20 13:42 Dose: 12.5 mls/hr Documented by: Vancomycin HCl 750 mg/ Sodium (Chloride) 265 mls @ 250 mls/hr IV Q12H [facility] Last Infusion: 06/29/20 12:20 Dose: Infused Documented by: L-Arginine/L-Glutamine/Calcium HMB (Timothy (Unflavored) Packet) 1 packet PO BIDCM [facility] Last Admin: 06/29/20 08:40 Dose: 1 packet Documented by: Loperamide HCl (Loperamide 2 Mg Capsule) 2 mg PO Q4H PRN PRN PRN Reason: LOOSE STOOLS Last Admin: 06/24/20 22:10 Dose: 2 mg Documented by: Metoprolol Tartrate (Metoprolol Tartrate 25 Mg Tablet) 25 mg PO BID [facility] Last Admin: 06/29/20 08:41 Dose: 25 mg Documented by: Morphine Sulfate (Morphine 2 Mg/Ml Syringe) 2 mg IV Q3H PRN PRN PRN Reason: Pain Score 6-10 Last Admin: 06/29/20 12:41 Dose: 2 mg Documented by: Nutritional Formula (Lactose Free) (Glucerna Shake 120 Ml Liquid) 120 ml PO 4X/DAY [facility] Last Admin: 06/29/20 13:43 Dose: 120 ml Documented by: Ondansetron HCl (Ondansetron 4 Mg/2 Ml Vial) 4 mg IV Q8H PRN PRN PRN Reason: NAUSEA/VOMITING Ondansetron HCl (Ondansetron 8 Mg Tablet) 8 mg PO Q8H PRN PRN PRN Reason: NAUSEA Oxycodone HCl (Oxycodone 5 Mg Tablet) 5 mg PO Q8H PRN PRN PRN Reason: Pain Score 6-10 Last Admin: 06/29/20 08:36 Dose: 5 mg Documented by: Senna/Docusate Sodium (Senna/Docusate Sodium 1 Tablet) 2 tablet PO BID PRN PRN PRN Reason: Constipation Sodium Chloride (0.9% Saline Lock 10 Ml Syringe) 10 - 40 ml IV UD PRN PRN Reason: SALINE FLUSH Last Admin: 06/28/20 01:31 Dose: 10 ml Documented by: Thiamine HCl (Thiamine Hydrochloride 100 Mg Tablet) [facility] Last Admin: 06/29/20 08:40 Dose: 100 mg Documented by: Trazodone HCl (Trazodone 100 Mg Tablet) 100 mg PO QHS PRN PRN Reason: INSOMNIA Medical Necessity - Tobacco Use Smoking Status: Current some day smoker Assessment/Plan All Active Problems Pressure injury of trochanteric region of right hip, unstageable (Acute) Skin necrosis (Acute) Cystitis (Acute) Severe sepsis (Acute) 1. Severe sepsis 2/2 Right leg cellulitis resolved 2. RLE cellulitis 2/2 pressure ulcer on LLE on pip/tazo and vanc no abscess or bony infection on CT 06/28: excision necrotic pressure sore right hip/trochanteric area including necrotic muscles 3. bactermia E. coli on pip/tazo UCx + E. coli, so UTI maybe the source 4. alcohol abuse stable on phenobarbital, thiamine and folate 5. Debility SNF upon discharge 6. VTE prophylaxis: LMWH Inpatient E&M: 38492 Subs Hosp L2
[2020-06-29 22:57] LABS: Vancomycin, Trough Level 10.9 ug/mL (5.0-15.0)
[2020-06-29] MEDS: 0.9% Saline Lock 10 ML Syringe IV (23:18)
[2020-06-30] VITALS (11 sets, daily range): BP systolic 107–128; BP diastolic 53–63; PULSE 85–97; RESP 16–18; TEMP 36.8–36.9; O2SAT 94–98
--- NOTE | 2020-06-30 00:55 | PHA.PHARE_ITS ---
Consult Pharmacy has been consulted to manage selected antiobiotic: Vancomycin Type of Consult: Follow-up Suspected Infection: Sepsis Prior Doses of Antibiotics Received/Current Regimen: Medications Vancomycin HCl (Vancomycin) 1,000 mg in 200 mls @ 200 mls/hr IV Q12H [facility] Discontinued Medications Vancomycin HCl 750 mg/ Sodium (Chloride) 265 mls @ 250 mls/hr IV Q12H [facility] Last Admin: 06/30/20 00:51 Dose: Infused Labs: Sodium 137 mmol/L (136-145) 06/29/20 05:58 Potassium 3.7 mmol/L (3.5-5.1) 06/29/20 05:58 Chloride 105 mmol/L (98-107) 06/29/20 05:58 Carbon Dioxide 25.0 mmol/L (21.0-32.0) 06/29/20 05:58 Anion Gap 7 (5-15) 06/29/20 05:58 BUN 13 mg/dL (7-18) 06/29/20 05:58 Creatinine 0.67 mg/dL (0.55-1.02) 06/29/20 05:58 Est GFR (MDRD) Af Amer 111 mL/min (>60) 06/29/20 05:58 Est GFR (MDRD) Non-Af 91 mL/min (>60) 06/29/20 05:58 BUN/Creatinine Ratio 19.3 RATIO (10-20) 06/29/20 05:58 Glucose 281 mg/dL (74-106) H 06/29/20 05:58 Vancomycin Trough 10.9 ug/mL (5.0-15.0) 06/29/20 22:22 Random Vancomycin 8.7 ug/mL (0.0-15.0) 06/28/20 05:35 Microbiology: Microbiology 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 - Final GNR lactose mechanical service technician 06/28/20 09:09 Tissue - Hip Gram Stain - Final 06/28/20 09:09 Tissue - Hip Wound Culture - Preliminary Gram negative roland Mixed Gram Positive Organisms 06/23/20 20:45 Blood Culture (Wb) - Anticubital Left Blood Culture - Final Escherichia coli 06/23/20 21:15 Urine Catheter - Funk Urine Culture - Final Presumptive E. coli 06/24/20 16:30 Stool C. difficile DNA Amplification - Final 06/23/20 21:15 Mucosa - Nose SARS-CoV-2 Antigen (Rapid) - Final Weight used for dosin kg Estimated Creatinine Clearance: 45.8 Goal Trough: 15-20 mcg/mL Pharmacy Plan for Drug Dosing: Measured vancomycin trough level of 10.9 was below the target range of 15-20. Will increase dosing back to 1000mg q12h, and re-draw trough prior to 4th dose of new regimen. Pharmacy Service will continue to monitor and adjust dosing as required. Follow-Up Labs: Trough Vancomycin Labs to be done on [date and time ordered]: 07/01/20 @1883
[2020-06-30] MEDS: oxyCODONE 5 MG Tablet PO ×3 (01:15→21:58)
[2020-06-30] MEDS: Menthol/Lanolin/Calamine/Znox 113 GM Tube 1 APPLIC TOPICAL ×3 (05:06→20:44)
[2020-06-30] MEDS: Enoxaparin 40 MG/0.4 ML Syringe SC (05:07)
--- NOTE | 2020-06-30 08:12 | NURSING ---
In to assess wound VAC dressing. dressing is intact with a good seal noted at 150mmHg low continuous suction. pt is resting comfortably in bed with eyes closed. wound VAC dressing will need changed tomorrow (Friday07/01/20) and then next week can get pt on a -- schedule. No sign of discomfort noted.
[2020-06-30] MEDS: Glucerna Shake 120 ML LIQUID PO ×4 (08:39→20:44)
[2020-06-30] MEDS: Juven (unflavored) Packet 1 PACKET PO ×2 (08:40→17:09)
[2020-06-30] MEDS: Metoprolol Tartrate 25 MG Tablet PO ×2 (08:40→20:44)
[2020-06-30] MEDS: Folic Acid 1 MG Tablet PO (08:40)
[2020-06-30] MEDS: Thiamine Hydrochloride 100 MG Tablet PO (08:40)
--- NOTE | 2020-06-30 09:46 | CASEMGMT ---
SAM went to patient's room to attempt to discuss d/c plan more. SW asked patient if she knows which bank she uses. She again states she does not remember. SAM explained to patient that she is getting closer to being ready for discharge if not ready now. SAM told her the only way we can get her out of here an on to the next level of care is by getting her income information. SAM re-explained that Medicare is not going to pay for her assisted as she has gone through all 100 days. Therefore, the only way for her to go to a assisted is private pay and/or Medicaid. SW cannot proceed with referrals to nursing homes until her income is known. Nursing homes want money up front. SAM explained if she can afford some of the money up front that would help her spend down her money so she can qualify for Medicaid which would help her with her medical bills. SAM asked her what she wants SW to do. She said Valentin told her she should get a schedule hanger. She said she did not know. She said she is paralyzed, can't even walk, and is in pain. SAM discussed case with lead SAM Bhat. It was decided that an LTACH may be appropriate. LTACHs are billed like a hospital stay so her lack of assisted days won't effect this. SAM will work with RN RAHUL BEAR
[2020-06-30] MEDS: Morphine 2 MG/ML Syringe IV ×2 (10:34→20:49)
[2020-06-30] MEDS: Vancomycin IV 1,000 MG/200 ML BAG 200 MG IV ×2 (11:09→22:33)
--- NOTE | 2020-06-30 14:05 | CASEMGMT ---
Addendum entered by Jeanette Guaman 06/30/20 15:39: Scripts for iv meds and therapy notes faxed to [facility]. Message left for Tiffany to let her know that pt is ready whenever they can take her. Call back from Tiffany and she states pt definitely qualifies for LTACH at this time and they may have some discharges over the weekend. Tiffany states she will notify PCU, if bed becomes available over the weekend and pt can be discharged at that time. Dr. Sherman and Yumiko, PCU charge, updated at this time, voice understanding. Green sheet left on chart. Jeanie CRABTREE CM Original Note: Referral faxed to [facility] at this time and Tiffany from [facility] notified of referral at this time. Awaiting Dr. Bains's recommendation for antibx at this time. Per Dr. Sherman, pt can go whenever bed available. Jeanie CRABTREE CM
[2020-06-30] MEDS: metroNIDAZOLE 500 MG Tablet PO ×2 (15:06→20:48)
--- NOTE | 2020-06-30 15:50 | CASEMGMT ---
SW spoke with patient about d/c plan again. SW explained to patient that another option would be an LTACH. SW explained an LTACH that it is more care than a skilled nursing and less care than a hospital. SW told her that it is billed like a hospital stay so she doesn't need to worry about not having skilled nursing days left. She asked if they were around here. SW told her [facility]. She sighed at first. SW told her that these would be our only options unless she is able to tell SW her income. Since she would have to private pay at a SNF. She agreed to go if they can take her. RN RAHUL is working on this. Zoe ALVAREZ SOFTWARE DEPLOYMENT ENGINEER
--- NOTE | 2020-06-30 15:55 | CASEMGMT ---
SW let patient know that the LTACH can accept her possibly over the weekend. She voiced understanding. Plan: d/c to LTACH when a bed opens. Zoe ALVAREZ FLAT EXAMINER
--- NOTE | 2020-06-30 16:35 | PN_ITS ---
Patient Problems: Active and Suspected Problems Severe sepsis (Acute) Subjective: Does wish to interact with me today. Vitals/I&O's: Vital Signs Temp Pulse Resp BP Pulse Ox 36.8 C 87 18 111/55 L 98 06/30/20 14:08 06/30/20 15:00 06/30/20 14:08 06/30/20 14:08 06/30/20 14:08 Oxygen Delivery Method Room Air Weight: 57 kg Body Mass Index (BMI) 20.2 Finger Stick Blood Glucose 103 Intake and Output for Last 24 Hours 06/28/20 06/29/20 06/30/20 23:59 23:59 23:59 Intake Total 970 / 970 1974 / 1974 1914 / 1914 Output Total 2450 / 2450 4075 / 4075 2250 / 2250 Balance -1480 / -1480 -2100 / -2100 -335 / -335 General: - - awakes easily. establishes eye contact then quickly dozes off. Neck: No Nodes, Thyroid Normal Size and Texture Lungs: Clear to auscultation, Normal air movement, No rhonchi, No wheeze, No rales Cardiovascular: Regular rate, Regular Rhythm, Normal S1, Normal S2, No murmurs Abdomen: Bowel Sounds Present, Soft, Non Tender, Non-Distended, No Hepato- splenomegaly Extremities: - - defect right hip with wound vac. Skin: No rashes, No breakdown Psych/Mental Status: Normal Affect, Appropriate Microbiology Past 72 Hours 06/28/20 09:09 Tissue - Hip Gram Stain - Final 06/28/20 09:09 Tissue - Hip Wound Culture - Preliminary Mixed Gram Pos & Gram Neg Org 06/28/20 09:09 Tissue - Hip Anaerobic Culture - Preliminary Checking for anaerobes, further studies to follow. 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 Laboratory Results 06/29/20 22:22: Vancomycin Trough 10.9 Current Medications Calamine/Phenol (Menthol/Lanolin/Calamine/Znox 113 Gm Tube) 1 applic TOPICAL TID [facility]; Protocol Last Admin: 06/30/20 14:11 Dose: 1 applicatio Documented by: Dicyclomine HCl (Dicyclomine 10 Mg Capsule) 20 mg PO Q6H PRN PRN PRN Reason: abdominal discomfort Enoxaparin Sodium (Enoxaparin 40 Mg/0.4 Ml Syringe) 40 mg SC DAILY@0600 [facility] Last Admin: 06/30/20 05:07 Dose: 40 mg Documented by: Folic Acid (Folic Acid 1 Mg Tablet) 1 mg PO DAILY@0800 [facility] Last Admin: 06/30/20 08:40 Dose: 1 mg Documented by: Gabapentin (Gabapentin 300 Mg Capsule) 300 mg PO Q8H PRN PRN PRN Reason: moderate to severe anxiety Hydroxyzine Pamoate (Hydroxyzine Crystal 25 Mg Capsule) 50 mg PO Q4H PRN PRN PRN Reason: mild anxiety Vancomycin IV Pharmacy to Dose (1 ea/ Sodium Chloride) 500 mls @ 250 mls/hr IV X1 PRN; Protocol PRN Reason: Rx to Dose Vancomycin HCl (Vancomycin) 1,000 mg in 200 mls @ 200 mls/hr IV Q12H [facility] Last Infusion: 06/30/20 12:19 Dose: Infused Documented by: Ceftriaxone Sodium 2 gm/ (Sodium Chloride) 50 mls @ 100 mls/hr IV Q24 [facility] Last Infusion: 06/30/20 14:55 Dose: Infused Documented by: L-Arginine/L-Glutamine/Calcium HMB (Timothy (Unflavored) Packet) 1 packet PO BIDCM [facility] Last Admin: 06/30/20 08:40 Dose: 1 packet Documented by: Loperamide HCl (Loperamide 2 Mg Capsule) 2 mg PO Q4H PRN PRN PRN Reason: LOOSE STOOLS Last Admin: 06/24/20 22:10 Dose: 2 mg Documented by: Metoprolol Tartrate (Metoprolol Tartrate 25 Mg Tablet) 25 mg PO BID [facility] Last Admin: 06/30/20 08:40 Dose: 25 mg Documented by: Metronidazole (Metronidazole 500 Mg Tablet) 500 mg PO TID [facility] Last Admin: 06/30/20 15:06 Dose: 500 mg Documented by: Morphine Sulfate (Morphine 2 Mg/Ml Syringe) 2 mg IV Q3H PRN PRN PRN Reason: Pain Score 6-10 Last Admin: 06/30/20 10:34 Dose: 2 mg Documented by: Nutritional Formula (Lactose Free) (Glucerna Shake 120 Ml Liquid) 120 ml PO 4X/DAY [facility] Last Admin: 06/30/20 14:09 Dose: 120 ml Documented by: Ondansetron HCl (Ondansetron 4 Mg/2 Ml Vial) 4 mg IV Q8H PRN PRN PRN Reason: NAUSEA/VOMITING Ondansetron HCl (Ondansetron 8 Mg Tablet) 8 mg PO Q8H PRN PRN PRN Reason: NAUSEA Oxycodone HCl (Oxycodone 5 Mg Tablet) 5 mg PO Q8H PRN PRN PRN Reason: Pain Score 6-10 Last Admin: 06/30/20 14:09 Dose: 5 mg Documented by: Senna/Docusate Sodium (Senna/Docusate Sodium 1 Tablet) 2 tablet PO BID PRN PRN PRN Reason: Constipation Sodium Chloride (0.9% Saline Lock 10 Ml Syringe) 10 - 40 ml IV UD PRN PRN Reason: SALINE FLUSH Last Admin: 06/29/20 23:18 Dose: 10 ml Documented by: Thiamine HCl (Thiamine Hydrochloride 100 Mg Tablet) 100 mg PO DAILYCM [facility] Last Admin: 06/30/20 08:40 Dose: 100 mg Documented by: Trazodone HCl (Trazodone 100 Mg Tablet) 100 mg PO QHS PRN PRN Reason: INSOMNIA STROKE Vital Signs/Narrative: Vital Signs Temp Pulse Resp BP Pulse Ox 06/30/20 15:00 87 06/30/20 14:08 36.8 C 90 18 111/55 L 98 Medical Necessity - Tobacco Use Smoking Status: Current some day smoker Assessment/Plan All Active Problems 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 Severe sepsis * 2/2 Right leg cellulitis * resolved 2. RLE cellulitis * 2/2 pressure ulcer on LLE * on pip/tazo and vanc * no abscess or bony infection on CT * 06/28: excision necrotic pressure sore right hip/trochanteric area including necrotic muscles 3. bactermia * E. coli * on CTX * UCx + E. coli, so UTI maybe the source 4. alcohol abuse * stable * on phenobarbital, thiamine and folate 5. Debility * LTAC on discharge, possibly this weekend. 6. VTE prophylaxis: LMWH Inpatient E&M: [id number] [facility] Hosp L2
[2020-06-30] MEDS: 0.9% Saline Lock 10 ML Syringe IV ×2 (20:49→21:59)
--- NOTE | 2020-06-30 21:19 | PN.SURG_ITS ---
Patient Problems: Active and Suspected Problems Severe sepsis (Acute) Subjective: Postop #2 Patient is resting comfortably. - Physical Exam Vitals/I&O's: Vital Signs Temp Pulse Resp BP Pulse Ox 98.3 F 95 18 123/63 H 96 06/30/20 20:43 06/30/20 20:44 06/30/20 20:43 06/30/20 20:44 06/30/20 20:43 Oxygen Delivery Method Room Air Weight: 125 lb 10.616 oz Body Mass Index (BMI) 20.2 Finger Stick Blood Glucose 103 Intake and Output for Last 24 Hours 06/28/20 06/29/20 06/30/20 23:59 23:59 23:59 Intake Total 970 / 970 1974 / 1974 2155 / 2155 Output Total 2450 / 2450 4075 / 4075 3075 / 3075 Balance -1480 / -1480 -2100 / -2100 -920 / -920 General: Alert, Oriented x3 HEENT: PERRLA, EOMI Oral: Moist Mucosa Neck: Supple Abdomen: Soft, Non-Distended Skin: Ulcer/ Wound - right hip wound is stable. VAC in place. Minimal drainage in the canister. Neurological: Cranial nerves II-XII grossly intact Psych/Mental Status: Normal Affect, Appropriate Microbiology Past 72 Hours 06/28/20 09:09 Tissue - Hip Gram Stain - Final 06/28/20 09:09 Tissue - Hip Wound Culture - Preliminary Mixed Gram Pos & Gram Neg Org 06/28/20 09:09 Tissue - Hip Anaerobic Culture - Preliminary Checking for anaerobes, further studies to follow. 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 Laboratory Results 06/29/20 22:22: Vancomycin Trough 10.9 Current Medications Calamine/Phenol (Menthol/Lanolin/Calamine/Znox 113 Gm Tube) 1 applic TOPICAL TID [facility]; Protocol Last Admin: 06/30/20 20:44 Dose: 1 applicatio Documented by: Dicyclomine HCl (Dicyclomine 10 Mg Capsule) 20 mg PO Q6H PRN PRN PRN Reason: abdominal discomfort Enoxaparin Sodium (Enoxaparin 40 Mg/0.4 Ml Syringe) 40 mg SC DAILY@0600 [facility] Last Admin: 06/30/20 05:07 Dose: 40 mg Documented by: Folic Acid (Folic Acid 1 Mg Tablet) 1 mg PO DAILY@0800 [facility] Last Admin: 06/30/20 08:40 Dose: 1 mg Documented by: Gabapentin (Gabapentin 300 Mg Capsule) 300 mg PO Q8H PRN PRN PRN Reason: moderate to severe anxiety Hydroxyzine Pamoate (Hydroxyzine Crystal 25 Mg Capsule) 50 mg PO Q4H PRN PRN PRN Reason: mild anxiety Vancomycin IV Pharmacy to Dose (1 ea/ Sodium Chloride) 500 mls @ 250 mls/hr IV X1 PRN; Protocol PRN Reason: Rx to Dose Vancomycin HCl (Vancomycin) 1,000 mg in 200 mls @ 200 mls/hr IV Q12H [facility] Last Infusion: 06/30/20 12:19 Dose: Infused Documented by: Ceftriaxone Sodium 2 gm/ (Sodium Chloride) 50 mls @ 100 mls/hr IV Q24 [facility] Last Infusion: 06/30/20 14:55 Dose: Infused Documented by: L-Arginine/L-Glutamine/Calcium HMB ([facility] ([facility]flavored) [facility]) [facility] Last Admin: 06/30/20 17:09 Dose: 1 packet Documented by: Loperamide HCl (Loperamide 2 Mg Capsule) 2 mg PO Q4H PRN PRN PRN Reason: LOOSE STOOLS Last Admin: 06/24/20 22:10 Dose: 2 mg Documented by: Metoprolol Tartrate (Metoprolol Tartrate 25 Mg Tablet) 25 mg PO BID [facility] Last Admin: 06/30/20 20:44 Dose: 25 mg Documented by: Metronidazole (Metronidazole 500 Mg Tablet) 500 mg PO TID [facility] Last Admin: 06/30/20 20:48 Dose: 500 mg Documented by: Morphine Sulfate (Morphine 2 Mg/Ml Syringe) 2 mg IV Q3H PRN PRN PRN Reason: Pain Score 6-10 Last Admin: 06/30/20 20:49 Dose: 2 mg Documented by: Nutritional Formula (Lactose Free) (Glucerna Shake 120 Ml Liquid) 120 ml PO 4X/DAY [facility] Last Admin: 06/30/20 20:44 Dose: 120 ml Documented by: Ondansetron HCl (Ondansetron 4 Mg/2 Ml Vial) 4 mg IV Q8H PRN PRN PRN Reason: NAUSEA/VOMITING Ondansetron HCl (Ondansetron 8 Mg Tablet) 8 mg PO Q8H PRN PRN PRN Reason: NAUSEA Oxycodone HCl (Oxycodone 5 Mg Tablet) 5 mg PO Q8H PRN PRN PRN Reason: Pain Score 6-10 Last Admin: 06/30/20 14:09 Dose: 5 mg Documented by: Senna/Docusate Sodium (Senna/Docusate Sodium 1 Tablet) 2 tablet PO BID PRN PRN PRN Reason: Constipation Sodium Chloride (0.9% Saline Lock 10 Ml Syringe) 10 - 40 ml IV UD PRN PRN Reason: SALINE FLUSH Last Admin: 06/30/20 20:49 Dose: 10 ml Documented by: Thiamine HCl (Thiamine Hydrochloride 100 Mg Tablet) 100 mg PO DAILYCM [facility] Last Admin: 06/30/20 08:40 Dose: 100 mg Documented by: Trazodone HCl (Trazodone 100 Mg Tablet) 100 mg PO QHS PRN PRN Reason: INSOMNIA Medical Necessity - Tobacco Use Smoking Status: Current some day smoker Assessment/Plan All Active Problems 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 2. Sepsis. 3. Cystitis. 4. Alcohol abuse. 5. Smoker. 6. s/p excision necrotic pressure sore injury right hip/trochanteric area including necrotic muscle, Stage IV. VAC in place. Minimal drainage in the canister. Operative culture shows Mixed Gram Positive and Gram Negative organisms. Continue Vancomycin, Ceftriaxone, and Flagyl. Prealbumin was 7.2. Encourage nutritional supplementation with protein to help the healing process. After discharge, followup [facility]. If there is a plateau in the healing process, can proceed with delayed closure with skin grafting. Encouraged patient to stop smoking as it may have deleterious effects on wound healing.
[2020-07-01] VITALS (11 sets, daily range): BP systolic 113–136; BP diastolic 56–65; PULSE 57–91; RESP 15–18; TEMP 36.7–37.2; O2SAT 95–100
[2020-07-01] MEDS: Morphine 2 MG/ML Syringe IV ×2 (00:16→03:23)
[2020-07-01] MEDS: 0.9% Saline Lock 10 ML Syringe IV ×3 (00:16→11:07)
[2020-07-01] MEDS: Menthol/Lanolin/Calamine/Znox 113 GM Tube 1 APPLIC TOPICAL ×3 (05:09→21:51)
[2020-07-01] MEDS: metroNIDAZOLE 500 MG Tablet PO ×3 (05:09→21:53)
[2020-07-01] MEDS: Loperamide 2 MG Capsule PO ×2 (05:09→11:22)
[2020-07-01] MEDS: Enoxaparin 40 MG/0.4 ML Syringe SC (05:09)
[2020-07-01] MEDS: oxyCODONE 5 MG Tablet PO ×3 (06:24→19:03)
--- NOTE | 2020-07-01 08:39 | PCM.TXEXTCAR ---
- Diet 06/26/20 14:43 Diet: Regular - General Food consistency:: Regular Liquid Consistency:: Regular/Thin Type of Dietary Supplement:: Ensure Pudding Is pt able to select menu?: No Diet Comments: chocolate Ensure pudding BID w/ lunch and dinner - Routine Orders/Code Status Routine Lab Work: CBC, BMP Code Status: DNRCC-A - Wound(s) rt hip Wound Type: Surgical Incision Dressing Change: applied KCI wound VAC bilat heels Wound Type: Pressure Injury right lateral ankle Wound Type: Pressure Injury - Suggestions for Active Care Change Position every (hours): 2 - Therapies Weight Bearing: Full weight bearing Physical Therapy: Eval and Treat Occupational Therapy: Eval and Treat - Allergies/Procedures Done in Hospital Allergies/Adverse Reactions: Allergies nickel [Nickel] Allergy (Verified 06/23/20 19:56) Rash/autoimmune reactions prochlorperazine edisylate [From Compazine] Adverse Reaction (Verified 06/23/20 19:56) disoriented prochlorperazine maleate [From Compazine] Adverse Reaction (Verified 06/23/20 19:56) DISORIENTED CADMIUM Allergy (Uncoded 06/23/20 19:56) Rash AUTOIMMUNE RESPONSE Procedures: - - Excision necrotic pressure sore injury right hip/trochanteric area including necrotic muscle, Stage IV. - Type of Care/Length of Stay Estimated LOS: Convalescent Care Less Than 30 days Type of Care Needed: LTAC Rehab Potential: Fair Prognosis: Fair - Additional Orders/Day of Discharge Day of Discharge: 07/01/20 - Dietary and Speech Recommendations Dietitian Recommendations/Changes: Continue regular diet d/t signs/symptoms of malnutrition. Continue glucerna shake w/ medpass, Timothy 1 packet BID for wound healing, and Ensure Pudding BID w/ meals. - Follow Up Care Primary Care Physician: Brant Howard Chi, MD [Primary Care Provider] - Within 2 Weeks (after discharge from LTAC) Please Follow Up With: Calvin Saeed MD When: 1-2 weeks
[2020-07-01] MEDS: Thiamine Hydrochloride 100 MG Tablet PO (08:50)
[2020-07-01] MEDS: Folic Acid 1 MG Tablet PO (08:50)
[2020-07-01] MEDS: Juven (unflavored) Packet 1 PACKET PO ×2 (08:50→17:09)
[2020-07-01] MEDS: Glucerna Shake 120 ML LIQUID PO ×4 (11:05→21:59)
[2020-07-01] MEDS: Metoprolol Tartrate 25 MG Tablet PO ×2 (11:06→21:53)
[2020-07-01] MEDS: Vancomycin IV 1,000 MG/200 ML BAG 200 MG IV ×2 (11:12→22:00)
--- NOTE | 2020-07-01 12:56 | PN_ITS ---
Patient Problems: Active and Suspected Problems Severe sepsis (Acute) Reason for Visit: severe sepsis Subjective: Still complains of pain all over and also in her right hip. 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 She denies any rash. States that she has had this pain for some time and has never been adequately treated. Vitals/I&O's: Vital Signs Temp Pulse Resp BP Pulse Ox 36.7 C 86 15 117/56 L 100 07/01/20 08:33 07/01/20 11:36 07/01/20 08:33 07/01/20 08:33 07/01/20 08:33 Oxygen Delivery Method Room Air Weight: 57 kg Body Mass Index (BMI) 20.2 Finger Stick Blood Glucose 103 Intake and Output for Last 24 Hours 06/29/20 06/30/20 07/01/20 23:59 23:59 23:59 Intake Total 1974 / 1974 2355 / 2795 1979 / 1979 Output Total 4075 / 4075 3075 / 3875 3275 / 3275 Balance -2100 / -2100 -720 / -1080 -1295 / -1295 General: Alert, No apparent distress HEENT: Atraumatic, Normocephalic Oral: Moist Mucosa, No Gingival or Mucosal Lesions/ Ulcerations Neck: No Nodes, Thyroid Normal Size and Texture Lungs: Clear to auscultation, Normal air movement, No rhonchi, No wheeze, No rales Cardiovascular: Regular rate, Regular Rhythm, Normal S1, Normal S2, No murmurs Abdomen: Bowel Sounds Present, Soft, Non Tender, Non-Distended, No Hepato- splenomegaly Extremities: - - Right leg wound with wound VAC in place. Psych/Mental Status: Normal Affect, Appropriate Microbiology Past 72 Hours 06/28/20 09:09 Tissue - Hip Gram Stain - Final 06/28/20 09:09 Tissue - Hip Wound Culture - Preliminary Gram negative roland Gram negative roland#2 Gram Positive Cocci Gram Positive Cocci#2 Gram positive roland 06/28/20 09:09 Tissue - Hip Anaerobic Culture - Final No anaerobic bacteria isolated. 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 Current Medications Acetaminophen (Acetaminophen 500 Mg Tablet) 1,000 mg PO Q8 [facility] Calamine/Phenol (Menthol/Lanolin/Calamine/Znox 113 Gm Tube) 1 applic TOPICAL TID [facility]; Protocol Last Admin: 07/01/20 05:09 Dose: 1 applicatio Documented by: Dicyclomine HCl (Dicyclomine 10 Mg Capsule) 20 mg PO Q6H PRN PRN PRN Reason: abdominal discomfort Enoxaparin Sodium (Enoxaparin 40 Mg/0.4 Ml Syringe) 40 mg SC DAILY@0600 [facility] Last Admin: 07/01/20 05:09 Dose: 40 mg Documented by: Folic Acid (Folic Acid 1 Mg Tablet) 1 mg PO DAILY@0800 [facility] Last Admin: 07/01/20 08:50 Dose: 1 mg Documented by: Gabapentin (Gabapentin 300 Mg Capsule) 300 mg PO Q8H PRN PRN PRN Reason: moderate to severe anxiety Hydroxyzine Pamoate (Hydroxyzine Crystal 25 Mg Capsule) 50 mg PO Q4H PRN PRN PRN Reason: mild anxiety Vancomycin IV Pharmacy to Dose (1 ea/ Sodium Chloride) 500 mls @ 250 mls/hr IV X1 PRN; Protocol PRN Reason: Rx to Dose Vancomycin HCl (Vancomycin) 1,000 mg in 200 mls @ 200 mls/hr IV Q12H [facility] Last Infusion: 07/01/20 12:15 Dose: Infused Documented by: Ceftriaxone Sodium 2 gm/ (Sodium Chloride) 50 mls @ 100 mls/hr IV Q24 [facility] Last Infusion: 07/01/20 11:40 Dose: Infused Documented by: L-Arginine/L-Glutamine/Calcium HMB (Timothy (Unflavored) Packet) 1 packet PO BIDCM [facility] Last Admin: 07/01/20 08:50 Dose: 1 packet Documented by: Loperamide HCl (Loperamide 2 Mg Capsule) 2 mg PO Q4H PRN PRN PRN Reason: LOOSE STOOLS Last Admin: 07/01/20 11:22 Dose: 2 mg Documented by: Metoprolol Tartrate (Metoprolol Tartrate 25 Mg Tablet) 25 mg PO BID [facility] Last Admin: 07/01/20 11:06 Dose: 25 mg Documented by: Metronidazole (Metronidazole 500 Mg Tablet) 500 mg PO TID [facility] Last Admin: 07/01/20 05:09 Dose: 500 mg Documented by: Nutritional Formula (Lactose Free) (Glucerna Shake 120 Ml Liquid) 120 ml PO 4X/DAY [facility] Last Admin: 07/01/20 11:05 Dose: 120 ml Documented by: Ondansetron HCl (Ondansetron 4 Mg/2 Ml Vial) 4 mg IV Q8H PRN PRN PRN Reason: NAUSEA/VOMITING Ondansetron HCl (Ondansetron 8 Mg Tablet) 8 mg PO Q8H PRN PRN PRN Reason: NAUSEA Oxycodone HCl (Oxycodone 5 Mg Tablet) 10 mg PO Q4H PRN PRN PRN Reason: Pain Score 6-10 Oxycodone HCl (Oxycodone 5 Mg Tablet) 5 mg PO Q4H PRN PRN PRN Reason: Pain Score 4-5 Last Admin: 07/01/20 11:05 Dose: 5 mg Documented by: Senna/Docusate Sodium (Senna/Docusate Sodium 1 Tablet) 2 tablet PO BID PRN PRN PRN Reason: Constipation Sodium Chloride (0.9% Saline Lock 10 Ml Syringe) 10 - 40 ml IV UD PRN PRN Reason: SALINE FLUSH Last Admin: 07/01/20 11:07 Dose: 10 ml Documented by: Thiamine HCl (Thiamine Hydrochloride 100 Mg Tablet) 100 mg PO DAILYCM [facility] Last Admin: 07/01/20 08:50 Dose: 100 mg Documented by: Trazodone HCl (Trazodone 100 Mg Tablet) 100 mg PO QHS PRN PRN Reason: INSOMNIA STROKE Vital Signs/Narrative: Vital Signs Pulse 07/01/20 11:36 86 07/01/20 11:06 85 Medical Necessity - Tobacco Use Smoking Status: Current some day smoker Assessment/Plan All Active Problems 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 Severe sepsis * 2/2 Right leg cellulitis * resolved 2. RLE cellulitis * 2/2 pressure ulcer on LLE * on CTX and vanc * no abscess or bony infection on CT * 06/28: excision necrotic pressure sore right hip/trochanteric area including necrotic muscles * Polymicrobial thus far. Follow-up cultures. 3. bactermia * E. coli * on CTX * UCx + E. coli, so UTI maybe the source 4. alcohol abuse * stable * Continue thiamine and folate 5. Debility * LTAC on discharge, possibly this weekend. No bed available at this time. 6. Chronic pain * Discussed with the patient. Told patient I do not have a clear indication what her pain is but will try to treat it with medication. I emphasized the importance of nonnarcotics and utilizing narcotics only as needed. She was in agreement to that. 7. VTE prophylaxis: LMWH Inpatient E&M: [id number] Subs Hosp L2
[2020-07-01] MEDS: Acetaminophen 500 MG Tablet 1000 MG PO ×2 (14:39→21:54)
[2020-07-01] MEDS: oxyCODONE 5 MG Tablet 10 MG PO ×2 (14:39→21:55)
--- NOTE | 2020-07-01 17:00 | NURSING ---
Called and spoke with pharmacy to send Flagyl to [facility].
--- NOTE | 2020-07-01 18:01 | NURSING ---
Patient is refusing turns to right side. RN offered to just slightly turn patient onto her right side and support her with a pillow behind her back. Patient refused same. RN did discuss risk for further skin breakdown and decreased mobility due to lack of motivation to get out of bed and/or turn while in bed. Patient voiced understanding of same. Patient continues to refuse therapy services.
[2020-07-01 23:11] LABS: Vancomycin, Trough Level 34.8 ug/mL (5.0-15.0)
[2020-07-02] VITALS (9 sets, daily range): BP systolic 105–118; BP diastolic 52–57; PULSE 74–96; RESP 16–18; TEMP 36.6–37.2; O2SAT 94–99
[2020-07-02] MEDS: oxyCODONE 5 MG Tablet 10 MG PO ×4 (01:57→20:58)
[2020-07-02 05:18] LABS: Absolute Lymphocyte Count 1.34 X10^3/uL (0.83-4.51); Basophil# 0.08 X10^3/uL; Basophil% 0.7 % (0-1); Eosinophils% 0.8 % (0-5); Hematocrit 28.7 % (37-47); Hemoglobin 9.3 g/dL (12.0-15.0); Lymphocyte # 1.34 X10^3/ul (4.0); Lymphocyte % 11.3 % (19-41); Mean Corp Hgb Conc 32.4 g/dL (32-36); Mean Corpuscular Hgb 29.2 pg (27.0-32.0); Mean Platelet Vol. 8.9 fl (6.2-12.0); Monocyte# 0.87 X10^3/uL; Monocyte% 7.3 % (0-10); NRBC Flagged by Analyzer 0 % (0-5); Neutrophil # 8.99 X10^3/uL (2.7-7.7); Neutrophil % 75.4 % (47-70); Platelet Count 650 K/mm3 (150-450); RBC Distribution Width CV 18.3 % (11.6-14.6); RBC Distribution Width SD 58.9 fl (35.1-43.9); Red Blood Count 3.19 M/mm3 (4.2-5.4); White Blood Count 11.9 K/mm3 (4.4-11.0)
[2020-07-02 05:35] LABS: Anion Gap 5 (5-15); BUN 16 mg/dL (7-18); BUN/Creat Ratio 32.1 RATIO (10-20); Calcium,Total 8.8 mg/dL (8.5-10.1); Chloride 101 mmol/L (98-107); EST Glomerular Filtration Rate 129 mL/min (>60); Est Glom Filt Rate - Afr Amer 156 mL/min (>60); Estimated Creatinine Clearance 45.76 ml/min; Glucose 204 mg/dL (74-106); Potassium 4.3 mmol/L (3.5-5.1); Sodium Level 133 mmol/L (136-145)
[2020-07-02] MEDS: metroNIDAZOLE 500 MG Tablet PO ×3 (05:44→21:08)
[2020-07-02] MEDS: Acetaminophen 500 MG Tablet 1000 MG PO ×3 (05:44→21:07)
[2020-07-02] MEDS: Enoxaparin 40 MG/0.4 ML Syringe SC (05:45)
[2020-07-02] MEDS: Menthol/Lanolin/Calamine/Znox 113 GM Tube 1 APPLIC TOPICAL ×3 (05:45→22:55)
--- NOTE | 2020-07-02 10:57 | PN_ITS ---
Patient Problems: Active and Suspected Problems Severe sepsis (Acute) Subjective: Still with pain all over. Not alleviated by medication. Vitals/I&O's: Vital Signs Temp Pulse Resp BP Pulse Ox 36.7 C 79 16 110/52 L 99 07/02/20 05:53 07/02/20 07:00 07/02/20 05:53 07/02/20 05:53 07/02/20 05:53 Oxygen Delivery Method Room Air Weight: 57 kg Body Mass Index (BMI) 20.2 Finger Stick Blood Glucose 103 Intake and Output for Last 24 Hours 06/30/20 07/01/20 07/02/20 23:59 23:59 23:59 Intake Total 2355 / 2795 2780 / 3020 600 / 600 Output Total 3075 / 3875 4250 / 5400 2500 / 2500 Balance -720 / -1080 -1470 / -2380 -1900 / -1900 General: Alert, No apparent distress HEENT: Atraumatic, Normocephalic Neck: No Nodes, Thyroid Normal Size and Texture Lungs: Clear to auscultation, Normal air movement, No rhonchi, No wheeze, No rales Cardiovascular: Regular rate, Regular Rhythm, Normal S1, Normal S2, No murmurs Abdomen: Bowel Sounds Present, Soft, Non Tender, Non-Distended, No Hepato- splenomegaly Extremities: No edema, No Calf Tenderness Skin: No rashes, No breakdown Psych/Mental Status: Normal Affect, Appropriate Microbiology Past 72 Hours 06/28/20 09:09 Tissue - Hip Gram Stain - Final 06/28/20 09:09 Tissue - Hip Wound Culture - Preliminary Ochrobacterium anthropi Stenotrophomonas maltophilia Staphylococcus haemolyticus Enterococcus faecium Gram positive roland 06/28/20 09:09 Tissue - Hip Anaerobic Culture - Final No anaerobic bacteria isolated. 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 Laboratory Results 07/01/20 22:19: Vancomycin Trough 34.8 H 07/02/20 05:05: WBC 11.9 H, RBC 3.19 L, Hgb 9.3 L, Hct 28.7 L, MCV 90.0, MCH 29.2, MCHC 32.4, RDW Std Deviation 58.9 H, RDW Coeff of Jonathan 18.3 H, Plt Count 650 H, MPV 8.9, Immature Gran % (Auto) 4.500 H, Neut % (Auto) 75.4 H, Lymph % (Auto) 11.3 L, [place] % (Auto) 7.3, Eos % (Auto) 0.8, Baso % (Auto) 0.7, Absolute Neuts (auto) 9.0 H, Absolute Lymphs (auto) 1.34, Nucleated RBC % 0 07/02/20 05:05: Sodium 133 L, Potassium 4.3, Chloride 101, Carbon Dioxide 27.0, Anion Gap 5, BUN 16, Creatinine 0.50 L, Estim Creat Clear Calc 45.76, Est GFR (MDRD) Af Amer 156, Est GFR (MDRD) Non-Af 129, BUN/Creatinine Ratio 32.1 H, Glucose 204 H, Calcium 8.8 07/02/20 10:29: Vancomycin Trough Pending Current Medications Acetaminophen (Acetaminophen 500 Mg Tablet) 1,000 mg PO Q8 [facility] Last Admin: 07/02/20 05:44 Dose: 1,000 mg Documented by: Calamine/Phenol (Menthol/Lanolin/Calamine/Znox 113 Gm Tube) 1 applic TOPICAL TID [facility]; Protocol Last Admin: 07/02/20 05:45 Dose: 1 applicatio Documented by: Dicyclomine HCl (Dicyclomine 10 Mg Capsule) 20 mg PO Q6H PRN PRN PRN Reason: abdominal discomfort Enoxaparin Sodium (Enoxaparin 40 Mg/0.4 Ml Syringe) 40 mg SC DAILY@0600 [facility] Last Admin: 07/02/20 05:45 Dose: 40 mg Documented by: Folic Acid (Folic Acid 1 Mg Tablet) 1 mg PO DAILY@0800 [facility] Last Admin: 07/01/20 08:50 Dose: 1 mg Documented by: Gabapentin (Gabapentin 300 Mg Capsule) 300 mg PO Q8H PRN PRN PRN Reason: moderate to severe anxiety Hydroxyzine Pamoate (Hydroxyzine Crystal 25 Mg Capsule) 50 mg PO Q4H PRN PRN PRN Reason: mild anxiety Vancomycin IV Pharmacy to Dose (1 ea/ Sodium Chloride) 500 mls @ 250 mls/hr IV X1 PRN; Protocol PRN Reason: Rx to Dose Vancomycin HCl (Vancomycin) 1,000 mg in 200 mls @ 200 mls/hr IV Q12H [facility] Last Infusion: 07/01/20 23:45 Dose: Infused Documented by: Ceftriaxone Sodium 2 gm/ (Sodium Chloride) 50 mls @ 100 mls/hr IV Q24 [facility] Last Infusion: 07/01/20 11:40 Dose: Infused Documented by: L-Arginine/L-Glutamine/Calcium HMB (Timothy (Unflavored) Packet) 1 packet PO BIDCM [facility] Last Admin: 07/01/20 17:09 Dose: 1 packet Documented by: Loperamide HCl (Loperamide 2 Mg Capsule) 2 mg PO Q4H PRN PRN PRN Reason: LOOSE STOOLS Last Admin: 07/01/20 11:22 Dose: 2 mg Documented by: Metoprolol Tartrate (Metoprolol Tartrate 25 Mg Tablet) 25 mg PO BID [facility] Last Admin: 07/01/20 21:53 Dose: 25 mg Documented by: Metronidazole (Metronidazole 500 Mg Tablet) 500 mg PO TID [facility] Last Admin: 07/02/20 05:44 Dose: 500 mg Documented by: Nutritional Formula (Lactose Free) (Glucerna Shake 120 Ml Liquid) 120 ml PO 4X/DAY [facility] Last Admin: 07/01/20 21:59 Dose: 120 ml Documented by: Ondansetron HCl (Ondansetron 4 Mg/2 Ml Vial) 4 mg IV Q8H PRN PRN PRN Reason: NAUSEA/VOMITING Ondansetron HCl (Ondansetron 8 Mg Tablet) 8 mg PO Q8H PRN PRN PRN Reason: NAUSEA Oxycodone HCl (Oxycodone 5 Mg Tablet) 10 mg PO Q4H PRN PRN PRN Reason: Pain Score 6-10 Last Admin: 07/02/20 05:57 Dose: 10 mg Documented by: Oxycodone HCl (Oxycodone 5 Mg Tablet) 5 mg PO Q4H PRN PRN PRN Reason: Pain Score 4-5 Last Admin: 07/01/20 19:03 Dose: 5 mg Documented by: Senna/Docusate Sodium (Senna/Docusate Sodium 1 Tablet) 2 tablet PO BID PRN PRN PRN Reason: Constipation Sodium Chloride (0.9% Saline Lock 10 Ml Syringe) 10 - 40 ml IV UD PRN PRN Reason: SALINE FLUSH Last Admin: 07/01/20 11:07 Dose: 10 ml Documented by: Thiamine HCl (Thiamine Hydrochloride 100 Mg Tablet) 100 mg PO DAILYCM [facility] Last Admin: 07/01/20 08:50 Dose: 100 mg Documented by: Trazodone HCl (Trazodone 100 Mg Tablet) 100 mg PO QHS PRN PRN Reason: INSOMNIA STROKE Vital Signs/Narrative: Vital Signs Pulse 07/02/20 07:00 79 Medical Necessity - Tobacco Use Smoking Status: Current some day smoker Assessment/Plan All Active Problems 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 Severe sepsis * 2/2 Right leg cellulitis * resolved 2. RLE cellulitis * 2/2 pressure ulcer on LLE * on CTX and vanc * no abscess or bony infection on CT * 06/28: excision necrotic pressure sore right hip/trochanteric area including necrotic muscles * Polymicrobial thus far. Follow-up cultures. 3. bactermia * E. coli * on CTX * UCx + E. coli, so UTI maybe the source 4. alcohol abuse * stable * Continue thiamine and folate 5. Debility * LTAC on discharge, possibly this weekend. No bed available at this time. 6. Chronic pain * 07/01: Discussed with the patient. Told patient I do not have a clear indication what her pain is but will try to treat it with medication. I emphasized the importance of nonnarcotics and utilizing narcotics only as needed. She was in agreement to that. * 07/02: schedule low dose gabapentin * unclear why she hurts all over. She claims it is due to an allergic reaction to hardware from a hip replacement. This is doubtful given absence of sequelae (urticaria, eosinophilia) 7. Moderate protein malnutrition * albumin 1.9 * Continue supplements (Timothy and Glucerna) 8. VTE prophylaxis: LMWH Inpatient E&M: 79784 [facility] L2
[2020-07-02] MEDS: Juven (unflavored) Packet 1 PACKET PO ×2 (11:02→18:32)
[2020-07-02] MEDS: Thiamine Hydrochloride 100 MG Tablet PO (11:03)
[2020-07-02] MEDS: Folic Acid 1 MG Tablet PO (11:03)
[2020-07-02] MEDS: Metoprolol Tartrate 25 MG Tablet PO ×2 (11:07→21:07)
[2020-07-02 11:11] LABS: Vancomycin, Trough Level 18.3 ug/mL (5.0-15.0)
[2020-07-02] MEDS: Glucerna Shake 120 ML LIQUID PO ×3 (11:14→21:00)
[2020-07-02] MEDS: Vancomycin IV 1,000 MG/200 ML BAG 200 MG IV ×2 (13:15→22:53)
[2020-07-02] MEDS: Gabapentin 100 MG Capsule PO ×2 (13:30→21:07)
--- NOTE | 2020-07-02 16:09 | PHA.PHARE_ITS ---
Consult Pharmacy has been consulted to manage selected antiobiotic: Vancomycin Type of Consult: Follow-up Prior Doses of Antibiotics Received/Current Regimen: Medications Vancomycin HCl (Vancomycin) 1,000 mg in 200 mls @ 200 mls/hr IV Q12H [facility] Last Admin: 07/02/20 14:59 Dose: Infused Documented by: Labs: Sodium 133 mmol/L (136-145) L 07/02/20 05:05 Potassium 4.3 mmol/L (3.5-5.1) 07/02/20 05:05 Chloride 101 mmol/L (98-107) 07/02/20 05:05 Carbon Dioxide 27.0 mmol/L (21.0-32.0) 07/02/20 05:05 Anion Gap 5 (5-15) 07/02/20 05:05 BUN 16 mg/dL (7-18) 07/02/20 05:05 Creatinine 0.50 mg/dL (0.55-1.02) L 07/02/20 05:05 Est GFR (MDRD) Af Amer 156 mL/min (>60) 07/02/20 05:05 Est GFR (MDRD) Non-Af 129 mL/min (>60) 07/02/20 05:05 BUN/Creatinine Ratio 32.1 RATIO (10-20) H 07/02/20 05:05 Glucose 204 mg/dL (74-106) H 07/02/20 05:05 Vancomycin Trough 18.3 ug/mL (5.0-15.0) H 07/02/20 10:29 Random Vancomycin 8.7 ug/mL (0.0-15.0) 06/28/20 05:35 Microbiology: Microbiology 06/28/20 09:09 Tissue - Hip Gram Stain - Final 06/28/20 09:09 Tissue - Hip Wound Culture - Preliminary Ochrobacterium anthropi Stenotrophomonas maltophilia Staphylococcus haemolyticus Enterococcus faecium Gram positive roland 06/28/20 09:09 Tissue - Hip Anaerobic Culture - Final No anaerobic bacteria isolated. 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 coli 06/24/20 16:30 Stool C. difficile DNA Amplification - Final 06/23/20 21:15 Mucosa - Nose SARS-CoV-2 Antigen (Rapid) - Final Weight used for dosin kg Goal Trough: 15-20 mcg/mL Pharmacy Plan for Drug Dosing: Trough in goal range but level has varied widely so recommend to continue dose but recheck again prior to 4th dose. Pharmacy Service will continue to monitor and adjust dosing as required. Follow-Up Labs: Trough Vancomycin - 07/04 @ 1030
[2020-07-02] MEDS: 0.9% Saline Lock 10 ML Syringe IV (22:55)
[2020-07-03] VITALS (7 sets, daily range): BP systolic 111–133; BP diastolic 46–65; PULSE 72–88; RESP 16–18; TEMP 36.6–37.4; O2SAT 96–100
[2020-07-03] MEDS: oxyCODONE 5 MG Tablet 10 MG PO ×5 (00:59→20:16)
[2020-07-03] MEDS: Gabapentin 100 MG Capsule PO ×3 (05:06→20:54)
[2020-07-03] MEDS: Enoxaparin 40 MG/0.4 ML Syringe SC (05:06)
[2020-07-03] MEDS: metroNIDAZOLE 500 MG Tablet PO ×3 (05:06→20:53)
[2020-07-03] MEDS: Menthol/Lanolin/Calamine/Znox 113 GM Tube 1 APPLIC TOPICAL ×3 (05:06→20:53)
[2020-07-03] MEDS: Loperamide 2 MG Capsule PO (05:07)
[2020-07-03] MEDS: Acetaminophen 500 MG Tablet 1000 MG PO ×3 (05:07→20:54)
[2020-07-03 08:38] LABS: Absolute Lymphocyte Count 1.46 X10^3/uL (0.83-4.51); Basophil% 0.8 % (0-1); Eosinophils% 0.8 % (0-5); Hematocrit 29.9 % (37-47); Hemoglobin 9.4 g/dL (12.0-15.0); Lymphocyte # 1.46 X10^3/ul (4.0); Lymphocyte % 11.4 % (19-41); Mean Corp Hgb Conc 31.4 g/dL (32-36); Mean Corpuscular Hgb 28.8 pg (27.0-32.0); Mean Corpuscular Volume 91.7 fL (81-99); Monocyte# 0.82 X10^3/uL; Monocyte% 6.4 % (0-10); NRBC Flagged by Analyzer 0 % (0-5); Neutrophil # 9.97 X10^3/uL (2.7-7.7); Neutrophil % 77.9 % (47-70); Platelet Count 658 K/mm3 (150-450); RBC Distribution Width CV 18.2 % (11.6-14.6); RBC Distribution Width SD 60.8 fl (35.1-43.9); Red Blood Count 3.26 M/mm3 (4.2-5.4); White Blood Count 12.8 K/mm3 (4.4-11.0)
[2020-07-03 08:58] LABS: Anion Gap 6 (5-15); BUN 17 mg/dL (7-18); BUN/Creat Ratio 28.1 RATIO (10-20); Calcium,Total 8.6 mg/dL (8.5-10.1); Chloride 98 mmol/L (98-107); EST Glomerular Filtration Rate 104 mL/min (>60); Est Glom Filt Rate - Afr Amer 125 mL/min (>60); Estimated Creatinine Clearance 45.76 ml/min; Glucose 352 mg/dL (74-106); Sodium Level 132 mmol/L (136-145)
--- NOTE | 2020-07-03 09:40 | CASEMGMT ---
Addendum entered by Jeanette Guaman 07/03/20 11:48: Call from Joel at [facility] and she states her physician is declining pt at this time. Jeanie CRABTREE CM Addendum entered by Jeanette Guaman 07/03/20 10:55: Call back from Vashti at [facility] and she states that none of their facilities have any openings today and that pt is 6th on the waiting list. Advised her that referral faxed to [facility] and this RN CM will notify her if they are able to accept, voices understanding. Jeanie CRABTREE CM Addendum entered by Jeanette Guaman 07/03/20 09:52: Call back from Joel at [facility] and she states they have open beds. Pt states no preference on facility but would like to be closer to [place]. Referral faxed to [facility] at this time. Jeanie CRABTREE CM Original Note: Call to Vashti at [facility] as Tiffany is out of the office this week. Per Vashti, pt is on a wait list and there are five people ahead of her but this was not conveyed on friday to this RN CM. Vashti states that she will check their other facilities and get back with this RN CM varun. Message left with Joel at [facility] to call this RN CM back to check on their bed situation at this time. CM to follow. Jeanie CRABTREE CM
[2020-07-03] MEDS: Glucerna Shake 120 ML LIQUID PO ×2 (09:41→20:53)
[2020-07-03] MEDS: Juven (unflavored) Packet 1 PACKET PO (09:41)
[2020-07-03] MEDS: Folic Acid 1 MG Tablet PO (09:41)
[2020-07-03] MEDS: Thiamine Hydrochloride 100 MG Tablet PO (09:41)
[2020-07-03] MEDS: Metoprolol Tartrate 25 MG Tablet PO ×2 (09:42→20:54)
[2020-07-03] MEDS: Vancomycin IV 1,000 MG/200 ML BAG 200 MG IV ×2 (10:48→22:59)
--- NOTE | 2020-07-03 13:41 | NURSING ---
wound photo: right hip
--- NOTE | 2020-07-03 14:10 | PCM.PN.HOSP ---
Patient Problems: Active and Suspected Problems Severe sepsis (Acute) Subjective: Patient seen and examined. She complains of diarrhea but this has been going on for over a week. Review of systems otherwise negative. She is awaiting placement in LTAC. She has remained hemodynamically stable. Vitals/I&O's: Vital Signs Temp Pulse Resp BP Pulse Ox 97.9 F 84 18 111/46 L 96 07/03/20 09:05 07/03/20 09:42 07/03/20 09:05 07/03/20 09:42 07/03/20 09:05 Oxygen Delivery Method Room Air Weight: 125 lb 10.616 oz Body Mass Index (BMI) 20.2 Finger Stick Blood Glucose 103 Intake and Output for Last 24 Hours 07/01/20 07/02/20 07/03/20 23:59 23:59 23:59 Intake Total 2780 / 3020 2010 / 2250 1800 / 1800 Output Total 4250 / 5400 4475 / 4925 2600 / 2600 Balance -1470 / -2380 -2465 / -2675 -800 / -800 General: Alert, Oriented x3, Cooperative, No apparent distress HEENT: Atraumatic, PERRLA, EOMI, Normocephalic Oral: Dry Mucosa Neck: Supple, No JVD, Negative Carotid Bruits Lungs: Clear to auscultation, Normal air movement, No rhonchi, No wheeze, No rales Cardiovascular: Regular rate, Regular Rhythm, Normal S1, Normal S2, No murmurs Abdomen: Bowel Sounds Present, Soft, Non Tender, Non-Distended, No Hepato-splenomegaly Extremities: No edema, Capillary Refill Less than 3 Seconds Skin: No rashes, No breakdown Musculoskeletal: No Tenderness to Palpation of Joints or Extremities Lymphatic: No Cervical, Supraclavicular, or Inguinal Adenopathy Neurological: Cranial nerves II-XII grossly intact, Neuro grossly intact, Motor Exam 5/5 strength throughout Psych/Mental Status: Normal Affect, Appropriate, Alert and oriented to time, place, person, mood and affect Microbiology Past 72 Hours 06/28/20 09:09 Tissue - Hip Gram Stain - Final 06/28/20 09:09 Tissue - Hip Wound Culture - Final Ochrobacterium anthropi Stenotrophomonas maltophilia Staphylococcus haemolyticus Enterococcus faecium Corynebacterium urealyticum 06/28/20 09:09 Tissue - Hip Anaerobic Culture - Final No anaerobic bacteria isolated. Laboratory Results 07/03/20 08:20: WBC 12.8 H, RBC 3.26 L, Hgb 9.4 L, Hct 29.9 L, MCV 91.7, MCH 28.8, MCHC 31.4 L, RDW Std Deviation 60.8 H, RDW Coeff of Jonathan 18.2 H, Plt Count 658 H, MPV 9.0, Immature Gran % (Auto) 2.700 H, Neut % (Auto) 77.9 H, Lymph % (Auto) 11.4 L, [place] % (Auto) 6.4, Eos % (Auto) 0.8, Baso % (Auto) 0.8, Absolute Neuts (auto) 10.0 H, Absolute Lymphs (auto) 1.46, Nucleated RBC % 0 07/03/20 08:20: Sodium 132 L, Potassium 4.0, Chloride 98, Carbon Dioxide 28.0, Anion Gap 6, BUN 17, Creatinine 0.60, Estim Creat Clear Calc 45.76, Est GFR (MDRD) Af Amer 125, Est GFR (MDRD) Non-Af 104, BUN/Creatinine Ratio 28.1 H, Glucose 352 H, Calcium 8.6 Diagnostic Data Hip/Pelvis X-Ray 06/23/20 20:57 IMPRESSION: No acute fracture Electronically Signed: Justo Brady MD at 22:00 EST , Service support , Venous Duplex 06/23/20 21:10 IMPRESSION: Normal venous Doppler ultrasound of the lower extremity. Electronically Signed: Justo Brady MD at 22:32 EST , Service support , Chest X-Ray 06/23/20 21:38 IMPRESSION: No acute disease Electronically Signed: Justo Brady MD at 22:00 EST , Service support , Brain CT 01/15/21 21:51 IMPRESSION: Chronic involutional changes of the brain. Electronically Signed: Justo Brady MD at 22:22 EST , Service support , Chest CTA 06/23/20 21:51 IMPRESSION: Right perihilar groundglass opacities are nonspecific. Differential considerations include infectious, inflammatory, neoplastic etiologies. Chronic pancreatitis. Electronically Signed: Justo Brady MD at 22:30 EST , Service support , Lower Extremity CT 06/26/20 08:00 IMPRESSION: No bony abnormality is seen. Soft tissue changes as described. No focal abscess or fluid collection is present. Electronically Signed: Edison Varela MD at 9:05 EST , Service support , Current Medications Acetaminophen (Acetaminophen 500 Mg Tablet) 1,000 mg PO Q8 [facility] Last Admin: 07/03/20 05:07 Dose: 1,000 mg Documented by: Calamine/Phenol (Menthol/Lanolin/Calamine/Znox 113 Gm Tube) 1 applic TOPICAL TID [facility]; Protocol Last Admin: 07/03/20 05:06 Dose: 1 applicatio Documented by: Dicyclomine HCl (Dicyclomine 10 Mg Capsule) 20 mg PO Q6H PRN PRN PRN Reason: abdominal discomfort Enoxaparin Sodium (Enoxaparin 40 Mg/0.4 Ml Syringe) 40 mg SC DAILY@0600 [facility] Last Admin: 07/03/20 05:06 Dose: 40 mg Documented by: Folic Acid (Folic Acid 1 Mg Tablet) 1 mg PO DAILY@0800 [facility] Last Admin: 07/03/20 09:41 Dose: 1 mg Documented by: Gabapentin (Gabapentin 100 Mg Capsule) 100 mg PO Q8 [facility] Last Admin: 07/03/20 05:06 Dose: 100 mg Documented by: Hydroxyzine Pamoate (Hydroxyzine Crystal 25 Mg Capsule) 50 mg PO Q4H PRN PRN PRN Reason: mild anxiety Vancomycin IV Pharmacy to Dose (1 ea/ Sodium Chloride) 500 mls @ 250 mls/hr IV X1 PRN; Protocol PRN Reason: Rx to Dose Vancomycin HCl (Vancomycin) 1,000 mg in 200 mls @ 200 mls/hr IV Q12H [facility] Last Infusion: 07/03/20 12:22 Dose: Infused Documented by: Ceftriaxone Sodium 2 gm/ (Sodium Chloride) 50 mls @ 100 mls/hr IV Q24 [facility] Last Infusion: 07/03/20 10:52 Dose: Infused Documented by: L-Arginine/L-Glutamine/Calcium HMB (Timothy (Unflavored) Packet) 1 packet PO BIDCM [facility] Last Admin: 07/03/20 09:41 Dose: 1 packet Documented by: Loperamide HCl (Loperamide 2 Mg Capsule) 2 mg PO Q4H PRN PRN PRN Reason: LOOSE STOOLS Last Admin: 07/03/20 05:07 Dose: 2 mg Documented by: Metoprolol Tartrate (Metoprolol Tartrate 25 Mg Tablet) 25 mg PO BID [facility] Last Admin: 07/03/20 09:42 Dose: 25 mg Documented by: Metronidazole (Metronidazole 500 Mg Tablet) 500 mg PO TID [facility] Last Admin: 07/03/20 05:06 Dose: 500 mg Documented by: Nutritional Formula (Lactose Free) (Glucerna Shake 120 Ml Liquid) 120 ml PO 4X/DAY [facility] Last Admin: 07/03/20 09:41 Dose: 120 ml Documented by: Ondansetron HCl (Ondansetron 4 Mg/2 Ml Vial) 4 mg IV Q8H PRN PRN PRN Reason: NAUSEA/VOMITING Ondansetron HCl (Ondansetron 8 Mg Tablet) 8 mg PO Q8H PRN PRN PRN Reason: NAUSEA Oxycodone HCl (Oxycodone 5 Mg Tablet) 10 mg PO Q4H PRN PRN PRN Reason: Pain Score 6-10 Last Admin: 07/03/20 10:09 Dose: 10 mg Documented by: Oxycodone HCl (Oxycodone 5 Mg Tablet) 5 mg PO Q4H PRN PRN PRN Reason: Pain Score 4-5 Last Admin: 07/01/20 19:03 Dose: 5 mg Documented by: Senna/Docusate Sodium (Senna/Docusate Sodium 1 Tablet) 2 tablet PO BID PRN PRN PRN Reason: Constipation Sodium Chloride (0.9% Saline Lock 10 Ml Syringe) 10 - 40 ml IV UD PRN PRN Reason: SALINE FLUSH Last Admin: 07/02/20 22:55 Dose: 10 ml Documented by: Thiamine HCl (Thiamine Hydrochloride 100 Mg Tablet) 100 mg PO DAILYCM [facility] Last Admin: 07/03/20 09:41 Dose: 100 mg Documented by: Trazodone HCl (Trazodone 100 Mg Tablet) 100 mg PO QHS PRN PRN Reason: INSOMNIA Medical Necessity - Tobacco Use Smoking Status: Current some day smoker Assessment/Plan All Active Problems 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 #RLE cellulitis due to pressure ulcer on left lower extremity wound cultures are polymicrobial on IV vancomycin and ceftriaxone # UTI urine cultured E coli on IV ceftriaxone # Diarrhea: on immodium. C Diff negative. #History of alcohol abuse: on thiamine and folate. Not in withdrawal # Chronic pain: on low dose gabapentin #Moderate protein calorie malnutrition: dietary on board. # Debility: PT/OT on board. Fall precautions. Inpatient E&M: 74931 Subs Hosp L2
--- NOTE | 2020-07-03 14:58 | CASEMGMT ---
SW went to patient's room. SW let her know that the LTACH we were hoping to send her to is full and there is a waiting list. SW told her about Acute Inpatient Rehab as this is also billed like a hospital stay. SW went over the list of the Acute Inpatient Rehab facilities and patient was open to [facility] or [facility]. SW asked her if she had any other ideas on what we can do for her discharge. She had no input. SW asked if she knows her bank and she again had no answer. SW asked her if she understands why she cannot go to a fpc and she said she understands. SW told her SW will update her when SW has more information. Zoe ALVAREZ [employer]
--- NOTE | 2020-07-03 15:13 | PN.ID_ITS ---
Patient Problems: Active and Suspected Problems Severe sepsis (Acute) Subjective: Feeling better, no fever, no abd pain, difficulty walking - Physical Exam Vitals/I&O's: Vital Signs Temp Pulse Resp BP Pulse Ox 97.9 F 84 18 111/46 L 96 07/03/20 09:05 07/03/20 09:42 07/03/20 09:05 07/03/20 09:42 07/03/20 09:05 Oxygen Delivery Method Room Air Weight: 57 kg Body Mass Index (BMI) 20.2 Finger Stick Blood Glucose 103 Intake and Output for Last 24 Hours 07/01/20 07/02/20 07/03/20 23:59 23:59 23:59 Intake Total 2780 / 3020 2010 / 2250 1800 / 1800 Output Total 4250 / 5400 4475 / 4925 2600 / 2600 Balance -1470 / -2380 -2465 / -2675 -800 / -800 General: Alert, Cooperative, No apparent distress Lungs: Clear to auscultation, Normal air movement Cardiovascular: Regular rate, Regular Rhythm Abdomen: Soft, Non Tender, Non-Distended Skin: Ulcer/ Wound Microbiology Past 72 Hours 06/28/20 09:09 Tissue - Hip Gram Stain - Final 06/28/20 09:09 Tissue - Hip Wound Culture - Final Ochrobacterium anthropi Stenotrophomonas maltophilia Staphylococcus haemolyticus Enterococcus faecium Corynebacterium urealyticum 06/28/20 09:09 Tissue - Hip Anaerobic Culture - Final No anaerobic bacteria isolated. Laboratory Results 07/03/20 08:20: WBC 12.8 H, RBC 3.26 L, Hgb 9.4 L, Hct 29.9 L, MCV 91.7, MCH 28.8, MCHC 31.4 L, RDW Std Deviation 60.8 H, RDW Coeff of Jonathan 18.2 H, Plt Count 658 H, MPV 9.0, Immature Gran % (Auto) 2.700 H, Neut % (Auto) 77.9 H, Lymph % (Auto) 11.4 L, Sullivan % (Auto) 6.4, Eos % (Auto) 0.8, Baso % (Auto) 0.8, Absolute Neuts (auto) 10.0 H, Absolute Lymphs (auto) 1.46, Nucleated RBC % 0 07/03/20 08:20: Sodium 132 L, Potassium 4.0, Chloride 98, Carbon Dioxide 28.0, Anion Gap 6, BUN 17, Creatinine 0.60, Estim Creat Clear Calc 45.76, Est GFR (MDRD) Af Amer 125, Est GFR (MDRD) Non-Af 104, BUN/Creatinine Ratio 28.1 H, Glucose 352 H, Calcium 8.6 Current Medications Acetaminophen (Acetaminophen 500 Mg Tablet) 1,000 mg PO Q8 [facility] Last Admin: 07/03/20 05:07 Dose: 1,000 mg Documented by: Calamine/Phenol (Menthol/Lanolin/Calamine/Znox 113 Gm Tube) 1 applic TOPICAL TID [facility]; Protocol Last Admin: 07/03/20 05:06 Dose: 1 applicatio Documented by: Dicyclomine HCl (Dicyclomine 10 Mg Capsule) 20 mg PO Q6H PRN PRN PRN Reason: abdominal discomfort Enoxaparin Sodium (Enoxaparin 40 Mg/0.4 Ml Syringe) 40 mg SC DAILY@0600 [facility] Last Admin: 07/03/20 05:06 Dose: 40 mg Documented by: Folic Acid (Folic Acid 1 Mg Tablet) 1 mg PO DAILY@0800 [facility] Last Admin: 07/03/20 09:41 Dose: 1 mg Documented by: Gabapentin (Gabapentin 100 Mg Capsule) 100 mg PO Q8 [facility] Last Admin: 07/03/20 05:06 Dose: 100 mg Documented by: Hydroxyzine Pamoate (Hydroxyzine Crystal 25 Mg Capsule) 50 mg PO Q4H PRN PRN PRN Reason: mild anxiety Vancomycin IV Pharmacy to Dose (1 ea/ Sodium Chloride) 500 mls @ 250 mls/hr IV X1 PRN; Protocol PRN Reason: Rx to Dose Vancomycin HCl (Vancomycin) 1,000 mg in 200 mls @ 200 mls/hr IV Q12H [facility] Last Infusion: 07/03/20 12:22 Dose: Infused Documented by: Ceftriaxone Sodium 2 gm/ (Sodium Chloride) 50 mls @ 100 mls/hr IV Q24 [facility] Last Infusion: 07/03/20 10:52 Dose: Infused Documented by: L-Arginine/L-Glutamine/Calcium HMB (Timothy (Unflavored) Packet) 1 packet PO BIDCM [facility] Last Admin: 07/03/20 09:41 Dose: 1 packet Documented by: Loperamide HCl (Loperamide 2 Mg Capsule) 2 mg PO Q4H PRN PRN PRN Reason: LOOSE STOOLS Last Admin: 07/03/20 05:07 Dose: 2 mg Documented by: Metoprolol Tartrate (Metoprolol Tartrate 25 Mg Tablet) 25 mg PO BID [facility] Last Admin: 07/03/20 09:42 Dose: 25 mg Documented by: Metronidazole (Metronidazole 500 Mg Tablet) 500 mg PO TID [facility] Last Admin: 07/03/20 05:06 Dose: 500 mg Documented by: Nutritional Formula (Lactose Free) (Glucerna Shake 120 Ml Liquid) 120 ml PO 4X/DAY [facility] Last Admin: 07/03/20 09:41 Dose: 120 ml Documented by: Ondansetron HCl (Ondansetron 4 Mg/2 Ml Vial) 4 mg IV Q8H PRN PRN PRN Reason: NAUSEA/VOMITING Ondansetron HCl (Ondansetron 8 Mg Tablet) 8 mg PO Q8H PRN PRN PRN Reason: NAUSEA Oxycodone HCl (Oxycodone 5 Mg Tablet) 10 mg PO Q4H PRN PRN PRN Reason: Pain Score 6-10 Last Admin: 07/03/20 10:09 Dose: 10 mg Documented by: Oxycodone HCl (Oxycodone 5 Mg Tablet) 5 mg PO Q4H PRN PRN PRN Reason: Pain Score 4-5 Last Admin: 07/01/20 19:03 Dose: 5 mg Documented by: Senna/Docusate Sodium (Senna/Docusate Sodium 1 Tablet) 2 tablet PO BID PRN PRN PRN Reason: Constipation Sodium Chloride (0.9% Saline Lock 10 Ml Syringe) 10 - 40 ml IV UD PRN PRN Reason: SALINE FLUSH Last Admin: 07/02/20 22:55 Dose: 10 ml Documented by: Thiamine HCl ([facility] 100 Mg [facility]t) [facility] Last Admin: 07/03/20 09:41 Dose: 100 mg Documented by: Trazodone HCl (Trazodone 100 Mg Tablet) 100 mg PO QHS PRN PRN Reason: INSOMNIA Medical Necessity - Tobacco Use Smoking Status: Current some day smoker Route of nutrition/ use of supplements: [] Nutritional Intake: [] IV Site: [] Funk Catheter: [] - Assessment/Plan Antibiotics: [] Assessment/Plan: [] Active and Suspected Problems Severe sepsis (Acute) Infected R hip wound after being down on floor for several days with incontinence - now s/p OR 06/[address] Saeed, surg cx reviewed. Bcx with ecoli, covid Ag neg, cdiff neg. Cont vanc/ceftriaxone/flagyl, will add levaquin for growth of steno. Will follow
[2020-07-03] MEDS: levoFLOXacin 500 MG Tablet PO (16:15)
[2020-07-03] MEDS: traZODone 100 MG Tablet PO (23:06)
[2020-07-04 04:55] VITALS: BP 142/66; PULSE 66; RESP 18; TEMP 37.1; O2SAT 96
[2020-07-04] MEDS: Gabapentin 100 MG Capsule PO ×3 (05:00→21:53)
[2020-07-04] MEDS: metroNIDAZOLE 500 MG Tablet PO ×3 (05:00→21:54)
[2020-07-04] MEDS: levoFLOXacin 500 MG Tablet PO (05:00)
[2020-07-04] MEDS: Acetaminophen 500 MG Tablet 1000 MG PO ×3 (05:00→21:53)
[2020-07-04] MEDS: Menthol/Lanolin/Calamine/Znox 113 GM Tube 1 APPLIC TOPICAL ×2 (05:00→21:55)
[2020-07-04] MEDS: Enoxaparin 40 MG/0.4 ML Syringe SC (05:00)
[2020-07-04] MEDS: oxyCODONE 5 MG Tablet 10 MG PO ×5 (05:05→22:00)
--- NOTE | 2020-07-04 09:22 | CASEMGMT ---
SW received phone [facility] from [facility] and [facility]. Both have declined patient. SW will talk with patient. Zoe ALVAREZ MSW
[2020-07-04 09:50] VITALS: BP 120/60; PULSE 86; RESP 18; TEMP 36.7; O2SAT 96
[2020-07-04 09:54] VITALS: BP 120/60; PULSE 86
[2020-07-04] MEDS: Thiamine Hydrochloride 100 MG Tablet PO (09:54)
[2020-07-04] MEDS: Metoprolol Tartrate 25 MG Tablet PO ×2 (09:54→21:55)
[2020-07-04] MEDS: Folic Acid 1 MG Tablet PO (09:54)
[2020-07-04] MEDS: Juven (unflavored) Packet 1 PACKET PO ×2 (09:55→16:05)
[2020-07-04] MEDS: 0.9% Saline Lock 10 ML Syringe IV ×2 (10:24→22:52)
[2020-07-04 11:15] LABS: Vancomycin, Trough Level 17.8 ug/mL (5.0-15.0)
[2020-07-04] MEDS: Vancomycin IV 1,000 MG/200 ML BAG 200 MG IV ×2 (11:24→22:46)
--- NOTE | 2020-07-04 11:28 | CASEMGMT ---
Addendum entered by Jeanette Guaman 07/04/20 15:38: Per Vas[facility], [facility] does not have a bed today but [place] does require a OBINNA radames started at the hospital prior to pt discharge if they only have MCR A and this RN CM advised that pt has been unwilling for SW to assist with this at this time. [facility] states they may not have a bed available until at least at this point. Jessenia VARGAS updated on all, voices understanding. CM to follow. Jeanie CRABTREE CM Original Note: Call from Vashti at [facility] and she states no beds available at [facility] today but she will talk to [facility] at this time. Updated clinicals faxed to Vas[facility] at this time. CM to follow. Jeanie CRABTREE CM
--- NOTE | 2020-07-04 12:16 | PCM.RX.CS ---
Consult Pharmacy has been consulted to manage selected antiobiotic: Vancomycin Type of Consult: Follow-up Prior Doses of Antibiotics Received/Current Regimen: current regimen is 1000mg IV q12h Labs: Sodium 132 mmol/L (136-145) L 07/03/20 08:20 Potassium 4.0 mmol/L (3.5-5.1) 07/03/20 08:20 Chloride 98 mmol/L (98-107) 07/03/20 08:20 Carbon Dioxide 28.0 mmol/L (21.0-32.0) 07/03/20 08:20 Anion Gap 6 (5-15) 07/03/20 08:20 BUN 17 mg/dL (7-18) 07/03/20 08:20 Creatinine 0.60 mg/dL (0.55-1.02) 07/03/20 08:20 Est GFR (MDRD) Af Amer 125 mL/min (>60) 07/03/20 08:20 Est GFR (MDRD) Non-Af 104 mL/min (>60) 07/03/20 08:20 BUN/Creatinine Ratio 28.1 RATIO (10-20) H 07/03/20 08:20 Glucose 352 mg/dL (74-106) H 07/03/20 08:20 Vancomycin Trough 17.8 ug/mL (5.0-15.0) H 07/04/20 10:25 Random Vancomycin 8.7 ug/mL (0.0-15.0) 06/28/20 05:35 Microbiology: Microbiology 06/28/20 09:09 Tissue - Hip Gram Stain - Final 06/28/20 09:09 Tissue - Hip Wound Culture - Final Ochrobacterium anthropi Stenotrophomonas maltophilia Staphylococcus haemolyticus Enterococcus faecium Corynebacterium urealyticum 06/28/20 09:09 Tissue - Hip Anaerobic Culture - Final No anaerobic bacteria isolated. 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 coli 06/24/20 16:30 Stool C. difficile DNA Amplification - Final 06/23/20 21:15 Mucosa - Nose SARS-CoV-2 Antigen (Rapid) - Final Weight used for dosin kg Estimated Creatinine Clearance: 45ml/min Goal Trough: 15-20 mcg/mL Pharmacy Plan for Drug Dosing: The vanc trough drawn before this morning's dose was 17.8 (drawn approx 11.5 hours after the previous dose). This is within goal range. The trough seems to have leveled off in range but will still repeat another trough level in 3 days since it has varied in the past. Pharmacy Service will continue to monitor and adjust dosing as required. Follow-Up Labs: Trough Vancomycin Labs to be done on [date and time ordered]: 07/07/20 10:30
[2020-07-04] MEDS: Glucerna Shake 120 ML LIQUID PO ×3 (14:04→21:51)
--- NOTE | 2020-07-04 14:42 | PN_ITS ---
Patient Problems: Active and Suspected Problems Severe sepsis (Acute) Subjective: Patient seen and examined. She complains of generalised pain all over. Review of systems otherwise negative. She has remained hemodynamically stable. Patient tells me today that she doesnt want to leave [facility] upon dischrge; I reminded patient that she was due to go to select facility antibiotic on account on upon discharge. Patient however states that she will not sleep. And I reminded her that she had not given the social workers and mental health case manager the information we need to help her set up group home care. Patient therefore wishes to speak to dependency case manager and social workers again today about her disposition. Vitals/I&O's: Vital Signs Temp Pulse Resp BP Pulse Ox 98.0 F 86 18 120/60 96 07/04/20 09:50 07/04/20 09:54 07/04/20 09:50 07/04/20 09:54 07/04/20 09:50 Oxygen Delivery Method Room Air Weight: 125 lb 10.616 oz Body Mass Index (BMI) 20.2 Finger Stick Blood Glucose 103 Intake and Output for Last 24 Hours 07/02/20 07/03/20 07/04/20 23:59 23:59 23:59 Intake Total 2009 2600 / 2720 1170 / 1170 Output Total 4475 / 4925 3500 / 4350 2325 / 2325 Balance -2465 / -2675 -900 / -1630 -1155 / -1155 General: Alert, Oriented x3, Cooperative, No apparent distress HEENT: Atraumatic, PERRLA, EOMI, Normocephalic Oral: Dry Mucosa Neck: Supple, No JVD, Negative Carotid Bruits Lungs: Clear to auscultation, Normal air movement, No rhonchi, No wheeze, No rales Cardiovascular: Regular rate, Regular Rhythm, Normal S1, Normal S2, No murmurs Abdomen: Bowel Sounds Present, Soft, Non Tender, Non-Distended, No Hepato- splenomegaly Extremities: No edema, Capillary Refill Less than 3 Seconds Skin: No rashes, No breakdown Musculoskeletal: No Tenderness to Palpation of Joints or Extremities Lymphatic: No Cervical, Supraclavicular, or Inguinal Adenopathy Neurological: Cranial nerves II-XII grossly intact, Neuro grossly intact, Motor Exam 5/5 strength throughout Psych/Mental Status: Normal Affect, Appropriate, Alert and oriented to time, place, person, mood and affect Microbiology Past 72 Hours 06/28/20 09:09 Tissue - Hip Gram Stain - Final 06/28/20 09:09 Tissue - Hip Wound Culture - Final Ochrobacterium anthropi Stenotrophomonas maltophilia Staphylococcus haemolyticus Enterococcus faecium Corynebacterium urealyticum 06/28/20 09:09 Tissue - Hip Anaerobic Culture - Final No anaerobic bacteria isolated. Laboratory Results 07/04/20 10:25: Vancomycin Trough 17.8 H Current Medications Acetaminophen (Acetaminophen 500 Mg Tablet) 1,000 mg PO Q8 [facility] Last Admin: 07/04/20 14:04 Dose: 1,000 mg Documented by: Calamine/Phenol (Menthol/Lanolin/Calamine/Znox 113 Gm Tube) 1 applic TOPICAL TID [facility]; Protocol Last Admin: 07/04/20 05:00 Dose: 1 applicatio Documented by: Dicyclomine HCl (Dicyclomine 10 Mg Capsule) 20 mg PO Q6H PRN PRN PRN Reason: abdominal discomfort Enoxaparin Sodium (Enoxaparin 40 Mg/0.4 Ml Syringe) 40 mg SC DAILY@0600 [facility] Last Admin: 07/04/20 05:00 Dose: 40 mg Documented by: Folic Acid (Folic Acid 1 Mg Tablet) 1 mg PO DAILY@0800 [facility] Last Admin: 07/04/20 09:54 Dose: 1 mg Documented by: Gabapentin (Gabapentin 100 Mg Capsule) 100 mg PO Q8 [facility] Last Admin: 07/04/20 14:04 Dose: 100 mg Documented by: Hydroxyzine Pamoate (Hydroxyzine Crystal 25 Mg Capsule) 50 mg PO Q4H PRN PRN PRN Reason: mild anxiety Vancomycin IV Pharmacy to Dose (1 ea/ Sodium Chloride) 500 mls @ 250 mls/hr IV X1 PRN; Protocol PRN Reason: Rx to Dose Vancomycin HCl (Vancomycin) 1,000 mg in 200 mls @ 200 mls/hr IV Q12H [facility] Last Infusion: 07/04/20 12:30 Dose: Infused Documented by: Ceftriaxone Sodium 2 gm/ (Sodium Chloride) 50 mls @ 100 mls/hr IV Q24 [facility] Last Infusion: 07/04/20 11:10 Dose: Infused Documented by: L-Arginine/L-Glutamine/Calcium HMB (Timothy (Unflavored) Packet) [facility] Last Admin: 07/04/20 09:55 Dose: 1 packet Documented by: Levofloxacin (Levofloxacin 500 Mg Tablet) 500 mg PO DAILY@0600 [facility] Last Admin: 07/04/20 05:00 Dose: 500 mg Documented by: Loperamide HCl (Loperamide 2 Mg Capsule) 2 mg PO Q4H PRN PRN PRN Reason: LOOSE STOOLS Last Admin: 07/03/20 05:07 Dose: 2 mg Documented by: Metoprolol Tartrate (Metoprolol Tartrate 25 Mg Tablet) 25 mg PO BID [facility] Last Admin: 07/04/20 09:54 Dose: 25 mg Documented by: Metronidazole (Metronidazole 500 Mg Tablet) 500 mg PO TID [facility] Last Admin: 07/04/20 14:04 Dose: 500 mg Documented by: Nutritional Formula (Lactose Free) (Glucerna Shake 120 Ml Liquid) 120 ml PO 4X/DAY [facility] Last Admin: 07/04/20 14:04 Dose: 120 ml Documented by: Ondansetron HCl (Ondansetron 4 Mg/2 Ml Vial) 4 mg IV Q8H PRN PRN PRN Reason: NAUSEA/VOMITING Ondansetron HCl (Ondansetron 8 Mg Tablet) 8 mg PO Q8H PRN PRN PRN Reason: NAUSEA Oxycodone HCl (Oxycodone 5 Mg Tablet) 10 mg PO Q4H PRN PRN PRN Reason: Pain Score 6-10 Last Admin: 07/04/20 13:58 Dose: 10 mg Documented by: Oxycodone HCl (Oxycodone 5 Mg Tablet) 5 mg PO Q4H PRN PRN PRN Reason: Pain Score 4-5 Last Admin: 07/01/20 19:03 Dose: 5 mg Documented by: Senna/Docusate Sodium (Senna/Docusate Sodium 1 Tablet) 2 tablet PO BID PRN PRN PRN Reason: Constipation Sodium Chloride (0.9% Saline Lock 10 Ml Syringe) 10 - 40 ml IV UD PRN PRN Reason: SALINE FLUSH Last Admin: 07/04/20 10:24 Dose: 20 ml Documented by: Thiamine HCl (Thiamine Hydrochloride 100 Mg Tablet) [facility] Last Admin: 07/04/20 09:54 Dose: 100 mg Documented by: Trazodone HCl (Trazodone 100 Mg Tablet) 100 mg PO QHS PRN PRN Reason: INSOMNIA Last Admin: 07/03/20 23:06 Dose: 100 mg Documented by: Medical Necessity - Tobacco Use Smoking Status: Current some day smoker Assessment/Plan All Active Problems 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 * #RLE cellulitis * due to pressure ulcer on left lower extremity * wound cultures are polymicrobial * on IV vancomycin and ceftriaxone * ID on board. Per ID, to continue with IV vancomycin, ceftriaxone and metronidazole. To add on levaquin for growth of Stenotrophomonas * # UTI * urine cultured E coli * on IV ceftriaxone. * * # Diarrhea: on immodium. C Diff negative. #History of alcohol abuse: on thiamine and folate. Not in withdrawal # Chronic pain: on low dose gabapentin #Moderate protein calorie malnutrition: dietary on board. # Debility: PT/OT on board. Fall precautions. Disposition: awaiting placement. now says she doesnt want to leave [facility], and so doesnt want to go to LTAC. case management and case workers on board to hep with discharge planning. Inpatient E&M: [id number] Subs Hosp L2
[2020-07-04 15:55] VITALS: BP 112/53; PULSE 81; RESP 18; TEMP 36.9; O2SAT 97
[2020-07-04 21:55] VITALS: BP 102/44; PULSE 85; RESP 16; TEMP 36.8; O2SAT 95
[2020-07-04] MEDS: traZODone 100 MG Tablet PO (22:46)
[2020-07-05 03:45] VITALS: BP 98/50; PULSE 87; RESP 16; TEMP 37; O2SAT 99
[2020-07-05] MEDS: Acetaminophen 500 MG Tablet 1000 MG PO ×3 (05:08→22:30)
[2020-07-05] MEDS: metroNIDAZOLE 500 MG Tablet PO ×3 (05:08→22:18)
[2020-07-05] MEDS: Gabapentin 100 MG Capsule PO ×3 (05:08→22:19)
[2020-07-05] MEDS: levoFLOXacin 500 MG Tablet PO (05:08)
[2020-07-05] MEDS: Enoxaparin 40 MG/0.4 ML Syringe SC (05:09)
[2020-07-05] MEDS: Menthol/Lanolin/Calamine/Znox 113 GM Tube 1 APPLIC TOPICAL ×3 (05:09→22:16)
[2020-07-05 05:42] LABS: Absolute Lymphocyte Count 1.49 X10^3/uL (0.83-4.51); Absolute Neutrophil Count 11.3 X10^3/uL (2.0-7.7); Basophil# 0.09 X10^3/uL; Basophil% 0.7 % (0-1); Eosinophils% 0.7 % (0-5); Hematocrit 29.6 % (37-47); Hemoglobin 9.5 g/dL (12.0-15.0); Lymphocyte # 1.49 X10^3/ul (4.0); Lymphocyte % 10.8 % (19-41); Mean Corp Hgb Conc 32.1 g/dL (32-36); Mean Corpuscular Hgb 29.4 pg (27.0-32.0); Mean Corpuscular Volume 91.6 fL (81-99); Mean Platelet Vol. 8.6 fl (6.2-12.0); Monocyte% 4.4 % (0-10); NRBC Flagged by Analyzer 0 % (0-5); Neutrophil # 11.28 X10^3/uL (2.7-7.7); Neutrophil % 82.1 % (47-70); Platelet Count 593 K/mm3 (150-450); RBC Distribution Width CV 18.3 % (11.6-14.6); RBC Distribution Width SD 60.7 fl (35.1-43.9); Red Blood Count 3.23 M/mm3 (4.2-5.4); White Blood Count 13.7 K/mm3 (4.4-11.0)
[2020-07-05 06:15] LABS: Anion Gap 6 (5-15); BUN 17 mg/dL (7-18); BUN/Creat Ratio 26.2 RATIO (10-20); Calcium,Total 8.7 mg/dL (8.5-10.1); Chloride 99 mmol/L (98-107); Creatinine, Serum 0.65 mg/dL (0.55-1.02); EST Glomerular Filtration Rate 95 mL/min (>60); Est Glom Filt Rate - Afr Amer 115 mL/min (>60); Estimated Creatinine Clearance 45.76 ml/min; Glucose 301 mg/dL (74-106); Potassium 4.3 mmol/L (3.5-5.1); Sodium Level 133 mmol/L (136-145)
[2020-07-05] MEDS: Folic Acid 1 MG Tablet PO (08:46)
[2020-07-05 08:47] VITALS: PULSE 88
[2020-07-05] MEDS: Juven (unflavored) Packet 1 PACKET PO (08:47)
[2020-07-05] MEDS: Metoprolol Tartrate 25 MG Tablet PO ×2 (08:47→22:19)
[2020-07-05] MEDS: Thiamine Hydrochloride 100 MG Tablet PO (08:48)
[2020-07-05] MEDS: oxyCODONE 5 MG Tablet 10 MG PO ×2 (09:41→14:47)
--- NOTE | 2020-07-05 09:43 | CASEMGMT ---
SAM went to patient's room to discuss her discharge plan. SAM told her that Acute Rehab Units have said no. SW explained that the LTACH is full and she will likely be off IV antibiotics by the time a bed opens and then she would not qualify. SAM told her right now retirement is the only option. SW explained to her again that she has no retirement days left with her Medicare. She will have to private pay at the retirement. When a patient is private pay they want the money up front. SAM reminded her she told SW earlier in her stay that she could afford private paying or at least some of it. SAM told her that SW needs her to share her income information so the retirement knows they will get paid. Otherwise no nursing homes will take her. SW told her that she can pay what she can afford and then we can complete a Medicaid application. She asked how to do a Medicaid application. SAM told her SAM is more than happy to help her complete this, but SW needs her help in providing her income information. SAM asked her if she is willing to share her income information and/or bank. She said she can't because she can't even walk to go anywhere. SAM told her that if she knows her bank SW can assist her in calling the bank to find out how much money she has in the bank. That does not involve anything but using the phone. SAM asked her again if she was willing to share her bank information and/or income information. She didn't answer for awhile. SW said her name and she said, I heard you. SW asked if she could answer SW. She said she can't help. SAM asked her again. The nurse then came into the room. SAM said patient's name again and she said, I am unable. SW then left the room. SAM then went into patient's room with the physician. The physician then explained to patient that SW needs her help in getting her to a retirement. She explained SW needs information and she has not been helping SW by giving necessary information. She said she can't. When the physician asked why she can't she didn't answer and closed her eyes. We both said her name a few times and she would briefly open her eyes. One time she said I need pain meds. The last time she closed her eyes and said, Leave me alone. SAM called Wenceslao at [facility] and updated her on the latest situation with patient. She asked if physician would be willing to complete a Statement of Expert Evaluation. SW told her SW can ask, but patient is alert and oriented she knows what she is doing so it is unlikely she will complete document. She said she is going to talk with her boss when she returns to the office and then she will talk with the prosecutor. SW will ask physician if she will complete a Statement of Expert Evaluation. Zoe ALVAREZ MSW
[2020-07-05 09:45] VITALS: BP 104/52; PULSE 81; RESP 16; TEMP 37.1; O2SAT 99
[2020-07-05] MEDS: Vancomycin IV 1,000 MG/200 ML BAG 200 MG IV ×2 (11:06→22:30)
--- NOTE | 2020-07-05 11:58 | CASEMGMT ---
Wound RN Arelis spoke with patient and she told her that [facility] [employer] [facility] It was figured out this is [facility]. She said she would call them. SW wrote down the phone number as well as the 2 questions to ask. 1. How much money she has in the bank. 2. What is her monthly deposit from Social Security. Arleis took this to patient. Arelis then returned stating patient was on the phone with her friend Valentin. She told Arelis she will call the bank when she gets off the phone with him. SAM checked in with patient close to a 1/2hr-1 hr later. Patient was eating lunch. SAM asked her if she had a chance to call yet and she said no. SAM asked her if she understands the question SW needs her to ask and she said she does. SAM told her if she could call right after lunch that would be helpful. SAM told her SW will check back. Zoe ALVAREZ MSW
--- NOTE | 2020-07-05 12:41 | PCM.PN.HOSP ---
Patient Problems: Active and Suspected Problems Severe sepsis (Acute) Subjective: Patient seen and examined. She was lying in bed and complained of generalised pain. Review of systems was otherwise negative. Patient is awaiting placement; this has become a conundrum because she is on the waiting list for LTAC. However, she will likely come off IV antibiotics soon, and so will likely not qualify for LTAC. Patient needs to provide her financial information to the s iron worker to help facilitate her placement in SNF and for medicaid application. Patient has however been reluctant to provide this information, so SW is at an impasse regarding patient's placement. I did go to patient;s room with SW to talk to her about divulging the needed financial information so her placement could be expedited. Patient was not cooperative, and asked for pain medication. She finally told foster care social worker and I to leave her alone. Vitals/I&O's: Vital Signs Temp Pulse Resp BP Pulse Ox 98.8 F 81 16 104/52 L 99 07/05/20 09:45 07/05/20 09:45 07/05/20 09:45 07/05/20 09:45 07/05/20 09:45 Oxygen Delivery Method Room Air Weight: 125 lb 10.616 oz Body Mass Index (BMI) 20.2 Finger Stick Blood Glucose 103 Intake and Output for Last 24 Hours 07/03/20 07/04/20 07/05/20 23:59 23:59 23:59 Intake Total 2600 / 2720 1950 / 1950 930 / 930 Output Total 3500 / 4350 4325 / 4325 700 / 700 Balance -900 / -1630 -2375 / -2375 230 / 230 General: Alert, Oriented x3, Cooperative, No apparent distress HEENT: Atraumatic, PERRLA, EOMI, Normocephalic Oral: Dry Mucosa Neck: Supple, No JVD, Negative Carotid Bruits Lungs: Clear to auscultation, Normal air movement, No rhonchi, No wheeze, No rales Cardiovascular: Regular rate, Regular Rhythm, Normal S1, Normal S2, No murmurs Abdomen: Bowel Sounds Present, Soft, Non Tender, Non-Distended, No Hepato-splenomegaly Extremities: No edema, Capillary Refill Less than 3 Seconds Skin: No rashes, No breakdown Musculoskeletal: No Tenderness to Palpation of Joints or Extremities Lymphatic: No Cervical, Supraclavicular, or Inguinal Adenopathy Neurological: Cranial nerves II-XII grossly intact, Neuro grossly intact, Motor Exam 5/5 strength throughout Psych/Mental Status: flat affect Microbiology Past 72 Hours 06/28/20 09:09 Tissue - Hip Gram Stain - Final 06/28/20 09:09 Tissue - Hip Wound Culture - Final Ochrobacterium anthropi Stenotrophomonas maltophilia Staphylococcus haemolyticus Enterococcus faecium Corynebacterium urealyticum 06/28/20 09:09 Tissue - Hip Anaerobic Culture - Final No anaerobic bacteria isolated. Laboratory Results 07/05/20 05:35: WBC 13.7 H, RBC 3.23 L, Hgb 9.5 L, Hct 29.6 L, MCV 91.6, MCH 29.4, MCHC 32.1, RDW Std Deviation 60.7 H, RDW Coeff of Jonathan 18.3 H, Plt Count 593 H, MPV 8.6, Immature Gran % (Auto) 1.300 H, Neut % (Auto) 82.1 H, Lymph % (Auto) 10.8 L, [place] % (Auto) 4.4, Eos % (Auto) 0.7, Baso % (Auto) 0.7, Absolute Neuts (auto) 11.3 H, Absolute Lymphs (auto) 1.49, Nucleated RBC % 0 07/05/20 05:35: Sodium 133 L, Potassium 4.3, Chloride 99, Carbon Dioxide 28.0, Anion Gap 6, BUN 17, Creatinine 0.65, Estim Creat Clear Calc 45.76, Est GFR (MDRD) Af Amer 115, Est GFR (MDRD) Non-Af 95, BUN/Creatinine Ratio 26.2 H, Glucose 301 H, Calcium 8.7 Current Medications Acetaminophen (Acetaminophen 500 Mg Tablet) 1,000 mg PO Q8 [facility] Last Admin: 07/05/20 08:47 Dose: 1,000 mg Documented by: Calamine/Phenol (Menthol/Lanolin/Calamine/Znox 113 Gm Tube) 1 applic TOPICAL TID [facility]; Protocol Last Admin: 07/05/20 05:09 Dose: 1 applicatio Documented by: Dicyclomine HCl (Dicyclomine 10 Mg Capsule) 20 mg PO Q6H PRN PRN PRN Reason: abdominal discomfort Enoxaparin Sodium (Enoxaparin 40 Mg/0.4 Ml Syringe) 40 mg SC DAILY@0600 [facility] Last Admin: 07/05/20 05:09 Dose: 40 mg Documented by: Folic Acid (Folic Acid 1 Mg Tablet) 1 mg PO DAILY@0800 [facility] Last Admin: 07/05/20 08:46 Dose: 1 mg Documented by: Gabapentin (Gabapentin 100 Mg Capsule) 100 mg PO Q8 [facility] Last Admin: 07/05/20 05:08 Dose: 100 mg Documented by: Hydroxyzine Pamoate (Hydroxyzine Crystal 25 Mg Capsule) 50 mg PO Q4H PRN PRN PRN Reason: mild anxiety Vancomycin IV Pharmacy to Dose (1 ea/ Sodium Chloride) 500 mls @ 250 mls/hr IV X1 PRN; Protocol PRN Reason: Rx to Dose Vancomycin HCl (Vancomycin) 1,000 mg in 200 mls @ 200 mls/hr IV Q12H [facility] Last Admin: 07/05/20 11:06 Dose: 200 mls/hr Documented by: Ceftriaxone Sodium 2 gm/ (Sodium Chloride) 50 mls @ 100 mls/hr IV Q24 [facility] Last Infusion: 07/05/20 11:05 Dose: Infused Documented by: L-Arginine/L-Glutamine/Calcium HMB (Timothy (Unflavored) Packet) 1 packet PO BIDCM [facility] Last Admin: 07/05/20 08:47 Dose: 1 packet Documented by: Levofloxacin (Levofloxacin 500 Mg Tablet) 500 mg PO DAILY@0600 [facility] Last Admin: 07/05/20 05:08 Dose: 500 mg Documented by: Loperamide HCl (Loperamide 2 Mg Capsule) 2 mg PO Q4H PRN PRN PRN Reason: LOOSE STOOLS Last Admin: 07/03/20 05:07 Dose: 2 mg Documented by: Metoprolol Tartrate (Metoprolol Tartrate 25 Mg Tablet) 25 mg PO BID [facility] Last Admin: 07/05/20 08:47 Dose: 25 mg Documented by: Metronidazole (Metronidazole 500 Mg Tablet) 500 mg PO TID [facility] Last Admin: 07/05/20 05:08 Dose: 500 mg Documented by: Nutritional Formula (Lactose Free) (Glucerna Shake 120 Ml Liquid) 120 ml PO 4X/DAY [facility] Last Admin: 07/05/20 08:56 Dose: Not Given Documented by: Ondansetron HCl (Ondansetron 4 Mg/2 Ml Vial) 4 mg IV Q8H PRN PRN PRN Reason: NAUSEA/VOMITING Ondansetron HCl (Ondansetron 8 Mg Tablet) 8 mg PO Q8H PRN PRN PRN Reason: NAUSEA Oxycodone HCl (Oxycodone 5 Mg Tablet) 10 mg PO Q4H PRN PRN PRN Reason: Pain Score 6-10 Last Admin: 07/05/20 09:41 Dose: 10 mg Documented by: Oxycodone HCl (Oxycodone 5 Mg Tablet) 5 mg PO Q4H PRN PRN PRN Reason: Pain Score 4-5 Last Admin: 07/01/20 19:03 Dose: 5 mg Documented by: Senna/Docusate Sodium (Senna/Docusate Sodium 1 Tablet) 2 tablet PO BID PRN PRN PRN Reason: Constipation Sodium Chloride (0.9% Saline Lock 10 Ml Syringe) 10 - 40 ml IV UD PRN PRN Reason: SALINE FLUSH Last Admin: 07/04/20 22:52 Dose: 10 ml Documented by: Thiamine HCl (Thiamine Hydrochloride 100 Mg Tablet) 100 mg PO DAILYCM [facility] Last Admin: 07/05/20 08:48 Dose: 100 mg Documented by: Trazodone HCl (Trazodone 100 Mg Tablet) 100 mg PO QHS PRN PRN Reason: INSOMNIA Last Admin: 07/04/20 22:46 Dose: 100 mg Documented by: STROKE Vital Signs/Narrative: Vital Signs Temp Pulse Resp BP Pulse Ox 07/05/20 09:45 98.8 F 81 16 104/52 L 99 07/05/20 08:47 88 Medical Necessity - Tobacco Use Smoking Status: Current some day smoker Assessment/Plan All Active Problems 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 #RLE cellulitis due to pressure ulcer on left lower extremity wound cultures are polymicrobial on IV vancomycin and ceftriaxone ID on board. Per ID, to continue with IV vancomycin, ceftriaxone, levaquin and metronidazole. # UTI urine cultured E coli on IV ceftriaxone. # Diarrhea: on immodium. C Diff negative. #History of alcohol abuse: on thiamine and folate. Not in withdrawal # Chronic pain: on low dose gabapentin #Moderate protein calorie malnutrition: dietary on board. # Debility: PT/OT on board. Fall precautions. Disposition: awaiting placement. Patient has been reticent about divulging financial information that SW needs to help facilitate her placement in a SNF. Patient is on waiting list for LTAC, and will likely not qualify for LTAC anymore once IV antibiotics are discontinued. Adult protective services was contacted and they asked for a statement of expert evaluation to say that patient was unable to make her own decisions. However I do not know if this is warranted as patient is completely alert and oriented and is able to make her own decisions. Inpatient E&M: 25830 Subs Hosp L2
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
--- NOTE | 2020-07-05 13:41 | PN.SURG_ITS ---
Patient Problems: Active and Suspected Problems Severe sepsis (Acute) Subjective: Post op day #7 Patient is resting in bed. - Physical Exam Vitals/I&O's: Vital Signs Temp Pulse Resp BP Pulse Ox 98.8 F 81 16 104/52 L 99 07/05/20 09:45 07/05/20 09:45 07/05/20 09:45 07/05/20 09:45 07/05/20 09:45 Oxygen Delivery Method Room Air Weight: 125 lb 10.616 oz Body Mass Index (BMI) 20.2 Finger Stick Blood Glucose 103 Intake and Output for Last 24 Hours 07/03/20 07/04/20 07/05/20 23:59 23:59 23:59 Intake Total 2600 / 2720 1950 / 1950 1130 / 1130 Output Total 3500 / 4350 4325 / 4325 700 / 700 Balance -900 / -1630 -2375 / -2375 430 / 430 General: Alert HEENT: Atraumatic Oral: Moist Mucosa Lungs: Normal air movement Cardiovascular: Regular rate Abdomen: Soft Extremities: Capillary Refill Less than 3 Seconds Skin: Ulcer/ Wound - Right hip wound with wound VAC dressing in place. Emely wound is clear and dry. Wound picture reviewed from VAC change and wound has improved with granulation tissue. Musculoskeletal: Tenderness - Right hip area is tender with palpation. Neurological: Cranial nerves II-XII grossly intact Psych/Mental Status: Irrational Behavior Microbiology Past 72 Hours 06/28/20 09:09 Tissue - Hip Gram Stain - Final 06/28/20 09:09 Tissue - Hip Wound Culture - Final Ochrobacterium anthropi Stenotrophomonas maltophilia Staphylococcus haemolyticus Enterococcus faecium Corynebacterium urealyticum 06/28/20 09:09 Tissue - Hip Anaerobic Culture - Final No anaerobic bacteria isolated. Laboratory Results 07/05/20 05:35: WBC 13.7 H, RBC 3.23 L, Hgb 9.5 L, Hct 29.6 L, MCV 91.6, MCH 29.4, MCHC 32.1, RDW Std Deviation 60.7 H, RDW Coeff of Jonathan 18.3 H, Plt Count 593 H, MPV 8.6, Immature Gran % (Auto) 1.300 H, Neut % (Auto) 82.1 H, Lymph % (Auto) 10.8 L, [place] % (Auto) 4.4, Eos % (Auto) 0.7, Baso % (Auto) 0.7, Absolute Neuts (auto) 11.3 H, Absolute Lymphs (auto) 1.49, Nucleated RBC % 0 07/05/20 05:35: Sodium 133 L, Potassium 4.3, Chloride 99, Carbon Dioxide 28.0, Anion Gap 6, BUN 17, Creatinine 0.65, Estim Creat Clear Calc 45.76, Est GFR ( MDRD) Af Amer 115, Est GFR (MDRD) Non-Af 95, BUN/Creatinine Ratio 26.2 H, Glucose 301 H, Calcium 8.7 Current Medications Acetaminophen (Acetaminophen 500 Mg Tablet) 1,000 mg PO Q8 [facility] Last Admin: 07/05/20 08:47 Dose: 1,000 mg Documented by: Calamine/Phenol (Menthol/Lanolin/Calamine/Znox 113 Gm Tube) 1 applic TOPICAL TID [facility]; Protocol Last Admin: 07/05/20 12:55 Dose: 1 applicatio Documented by: Dicyclomine HCl (Dicyclomine 10 Mg Capsule) 20 mg PO Q6H PRN PRN PRN Reason: abdominal discomfort Enoxaparin Sodium (Enoxaparin 40 Mg/0.4 Ml Syringe) 40 mg SC DAILY@0600 [facility] Last Admin: 07/05/20 05:09 Dose: 40 mg Documented by: Folic Acid (Folic Acid 1 Mg Tablet) 1 mg PO DAILY@0800 [facility] Last Admin: 07/05/20 08:46 Dose: 1 mg Documented by: Gabapentin (Gabapentin 100 Mg Capsule) 100 mg PO Q8 [facility] Last Admin: 07/05/20 12:59 Dose: 100 mg Documented by: Hydroxyzine Pamoate (Hydroxyzine Crystal 25 Mg Capsule) 50 mg PO Q4H PRN PRN PRN Reason: mild anxiety Vancomycin IV Pharmacy to Dose (1 ea/ Sodium Chloride) 500 mls @ 250 mls/hr IV X1 PRN; Protocol PRN Reason: Rx to Dose Vancomycin HCl (Vancomycin) 1,000 mg in 200 mls @ 200 mls/hr IV Q12H [facility] Last Infusion: 07/05/20 13:09 Dose: Infused Documented by: Ceftriaxone Sodium 2 gm/ (Sodium Chloride) 50 mls @ 100 mls/hr IV Q24 [facility] Last Infusion: 07/05/20 11:05 Dose: Infused Documented by: L-Arginine/L-Glutamine/Calcium HMB (Timothy (Unflavored) Packet) [facility] Last Admin: 07/05/20 08:47 Dose: 1 packet Documented by: Levofloxacin (Levofloxacin 500 Mg Tablet) 500 mg PO DAILY@0600 [facility] Last Admin: 07/05/20 05:08 Dose: 500 mg Documented by: Loperamide HCl (Loperamide 2 Mg Capsule) 2 mg PO Q4H PRN PRN PRN Reason: LOOSE STOOLS Last Admin: 07/03/20 05:07 Dose: 2 mg Documented by: Metoprolol Tartrate (Metoprolol Tartrate 25 Mg Tablet) 25 mg PO BID [facility] Last Admin: 07/05/20 08:47 Dose: 25 mg Documented by: Metronidazole (Metronidazole 500 Mg Tablet) 500 mg PO TID [facility] Last Admin: 07/05/20 12:59 Dose: 500 mg Documented by: Nutritional Formula (Lactose Free) (Glucerna Shake 120 Ml Liquid) 120 ml PO 4X /DAY [facility] Last Admin: 07/05/20 12:59 Dose: Not Given Documented by: Ondansetron HCl (Ondansetron 4 Mg/2 Ml Vial) 4 mg IV Q8H PRN PRN PRN Reason: NAUSEA/VOMITING Ondansetron HCl (Ondansetron 8 Mg Tablet) 8 mg PO Q8H PRN PRN PRN Reason: NAUSEA Oxycodone HCl (Oxycodone 5 Mg Tablet) 10 mg PO Q4H PRN PRN PRN Reason: Pain Score 6-10 Last Admin: 07/05/20 09:41 Dose: 10 mg Documented by: Oxycodone HCl (Oxycodone 5 Mg Tablet) 5 mg PO Q4H PRN PRN PRN Reason: Pain Score 4-5 Last Admin: 07/01/20 19:03 Dose: 5 mg Documented by: Senna/Docusate Sodium (Senna/Docusate Sodium 1 Tablet) 2 tablet PO BID PRN PRN PRN Reason: Constipation Sodium Chloride (0.9% Saline Lock 10 Ml Syringe) 10 - 40 ml IV UD PRN PRN Reason: SALINE FLUSH Last Admin: 07/04/20 22:52 Dose: 10 ml Documented by: Thiamine HCl (Thiamine Hydrochloride 100 Mg Tablet) [facility] Last Admin: 07/05/20 08:48 Dose: 100 mg Documented by: Trazodone HCl (Trazodone 100 Mg Tablet) 100 mg PO QHS PRN PRN Reason: INSOMNIA Last Admin: 07/04/20 22:46 Dose: 100 mg Documented by: Medical Necessity - Tobacco Use Smoking Status: Current some day smoker Assessment/Plan All Active Problems 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 2. Sepsis. 3. Cystitis. 4. Alcohol abuse. 5. Smoker. 6. s/p excision necrotic pressure sore injury right hip/trochanteric area including necrotic muscle, Stage IV. VAC in place. Minimal drainage in the canister. Operative culture shows Ochrobacterium anthropi, Stenotrophomonas maltophilia, Staphylococcus haemolyticus, Enterococcus faecium, Corynebacterium urealyticum. Continue Vancomycin, Ceftriaxone, Flagyl and Levaquin. Dr. Bains, ID is consulted. Prealbumin was 7.2. Encourage nutritional supplementation with protein to help the healing process. After discharge, followup at the [facility]. If there is a plateau in the healing process, can proceed with delayed closure with skin grafting. Encouraged patient to stop smoking as it may have deleterious effects on wound healing.
--- NOTE | 2020-07-05 14:32 | CASEMGMT ---
SW did go back into patient's room to see if she called the bank. She has not called. She said, It bothers me. It is not all my money. It is my brothers. SW tried to get her to elaborate, but she would not. Zoe ALVAREZ MSW
--- NOTE | 2020-07-05 14:44 | CASEMGMT ---
SW called Adult Protective Services and updated Wenceslao on the current situation. SW did let her know physician is not willing to complete Statement of Expert Evaluation. She feels patient can make decisions she just chooses not to. SW to continue to follow and work with patient. Zoe ALVARZE BUILDING MAINTENANCE TECHNICIAN
[2020-07-05 16:00] VITALS: BP 102/55; PULSE 89; RESP 16; TEMP 36.6; O2SAT 98
[2020-07-05 22:00] VITALS: BP 119/54; PULSE 87; RESP 17; TEMP 36.9; O2SAT 97
[2020-07-05] MEDS: Glucerna Shake 120 ML LIQUID PO (22:16)
[2020-07-05] MEDS: traZODone 100 MG Tablet PO (22:18)
[2020-07-05 22:19] VITALS: PULSE 84
[2020-07-05] MEDS: oxyCODONE 5 MG Tablet PO (22:43)
[2020-07-06] VITALS (8 sets, daily range): BP systolic 114–132; BP diastolic 54–67; PULSE 73–91; RESP 16–18; TEMP 36.3–37; O2SAT 96–99
[2020-07-06] MEDS: oxyCODONE 5 MG Tablet 10 MG PO ×4 (05:48→19:59)
[2020-07-06] MEDS: Enoxaparin 40 MG/0.4 ML Syringe SC (05:49)
[2020-07-06] MEDS: metroNIDAZOLE 500 MG Tablet PO ×3 (05:49→21:50)
[2020-07-06] MEDS: Gabapentin 100 MG Capsule PO ×3 (05:49→22:11)
[2020-07-06] MEDS: Acetaminophen 500 MG Tablet 1000 MG PO ×3 (05:49→21:51)
[2020-07-06] MEDS: levoFLOXacin 500 MG Tablet PO (05:49)
[2020-07-06] MEDS: Menthol/Lanolin/Calamine/Znox 113 GM Tube 1 APPLIC TOPICAL ×3 (05:50→21:52)
[2020-07-06] MEDS: Folic Acid 1 MG Tablet PO (08:45)
[2020-07-06] MEDS: Juven (unflavored) Packet 1 PACKET PO ×2 (08:45→17:57)
[2020-07-06] MEDS: Thiamine Hydrochloride 100 MG Tablet PO (08:45)
[2020-07-06] MEDS: Glucerna Shake 120 ML LIQUID PO ×4 (08:57→21:49)
[2020-07-06] MEDS: Metoprolol Tartrate 25 MG Tablet PO ×2 (08:58→21:50)
--- NOTE | 2020-07-06 09:18 | CASEMGMT ---
Addendum entered by Jeanette Guaman 07/06/20 10:22: Call back from Vashti at [facility] and she states they can accept pt today after 1600. Dr. Humphrey, Tierra CRABTREE, Bradley-U charge, and Win, regional ehs manager, all updated at this time, voice understanding. Pt updated by Jessenia VARGAS at this time, voices understanding. Transport to be set up for 1600 today. Contact info for report and to fax d/c given to Tierra CRABTREE and Win, regional ehs manager, at this time. Jeanie CRABTREE CM Original Note: Call to Vashti at [facility] and she states that there may be a possibility that they will have a bed available today but she will call this LEYDA CM back regarding same. Updated clinicals faxed to [facility] at this time. CM to follow. Jeanie CRABTREE CM
--- NOTE | 2020-07-06 10:26 | CASEMGMT ---
Per RN RAH[facility] can accept patient today. They are going to call patient. SW went to patient's room and let her know this information. She asked if it was in [place]. SAM told her it is in [place]. It is located in [facility]. She was in agreement and will answer the phone. Zoe BEAR
[2020-07-06] MEDS: 0.9% Saline Lock 10 ML Syringe IV (10:32)
[2020-07-06] MEDS: Vancomycin IV 1,000 MG/200 ML BAG 200 MG IV ×2 (11:53→22:12)
--- NOTE | 2020-07-06 12:20 | PCM.TXEXTCAR ---
- Diet 06/26/20 14:43 Diet: Regular - General Food consistency:: Regular Liquid Consistency:: Regular/Thin Type of Dietary Supplement:: Ensure Pudding Is pt able to select menu?: No Diet Comments: chocolate Ensure pudding BID w/ lunch and dinner - Routine Orders/Code Status Enema Type: Fleetz Enema Frequency: Daily PRN Suppository Type: Dulcolax 10mg Suppository Frequency: Daily PRN O2 Frequency: PRN Keep PO Greater than or Equal to (%): 90 Routine Lab Work: CBC, BMP Code Status: DNC-A - Wound(s) rt hip Wound Type: Pressure Injury Dressing Change: Wet to Dry Dressing bilat heels Wound Type: Pressure Injury right lateral ankle Wound Type: Pressure Injury - Suggestions for Active Care Change Position every (hours): 2 - Therapies Weight Bearing: Full weight bearing Physical Therapy: Eval and Treat Occupational Therapy: Eval and Treat - Allergies/Procedures Done in Hospital Allergies/Adverse Reactions: Allergies nickel [Nickel] Allergy (Verified 06/23/20 19:56) Rash/autoimmune reactions prochlorperazine edisylate [From Compazine] Adverse Reaction (Verified 06/23/20 19:56) disoriented prochlorperazine maleate [From Compazine] Adverse Reaction (Verified 06/23/20 19:56) DISORIENTED CADMIUM Allergy (Uncoded 06/23/20 19:56) Rash AUTOIMMUNE RESPONSE Procedures: None, - - Excision necrotic pressure sore injury right hip/trochanteric area including necrotic muscle, Stage IV. - Type of Care/Length of Stay Estimated LOS: Convalescent Care Less Than 30 days Type of Care Needed: LTAC Rehab Potential: Fair Prognosis: Fair - Additional Orders/Day of Discharge Day of Discharge: 07/06/20 - Dietary and Speech Recommendations Dietitian Recommendations/Changes: Will continue regular diet w/ ONS d/t malnutrition. - Follow Up Care Primary Care Physician: Brant Howard Chi, MD [Primary Care Provider] - Within 2 Weeks (after discharge from LTAC) Please follow up with your Primary Care Physician in: 1-2 weeks Please Follow Up With: Calvin Saeed MD When: 1-2 weeks
--- NOTE | 2020-07-06 12:23 | DS.PCM_ITS ---
Discharge Date and Diagnosis - Problem List Patient Problems: Active and Suspected Problems Severe sepsis (Acute) Date of Admission: 06/23/20 - Primary Discharge Diagnosis Acute Problems: Active Problems Severe sepsis (Acute) - Secondary Discharge Diagnosis Chronic Problems: Chronic Problems Debility (Chronic) Autoimmune pancreatitis (Chronic) Alcohol dependence (Chronic) Psoriatic arthritis (Chronic) Severe protein-calorie malnutrition (Chronic) HLD (hyperlipidemia) (Chronic) GERD (gastroesophageal reflux disease) (Chronic) Tobacco use (Chronic) Alcoholism (Chronic) Hepatic steatosis (Chronic) Alcoholic hepatitis (Chronic) Abnormal LFTs (Chronic) Alcoholic pancreatitis (Chronic) Alcohol abuse (Chronic) Hypertension (Chronic) Hypothyroidism (Chronic) Anxiety (Chronic) Fibromyalgia (Chronic) Dysphagia (Chronic) Rheumatoid arthritis (Chronic) never confirmed.....RA is negative.....tells me that she has psoriatic arthritis Psoriasis (Chronic) Chronic back pain (Chronic) osteoarthritis Delusional disorder (Chronic) Bipolar disorder (Chronic) Depression with H/o suicidal attempt (Chronic) Hospital Course and Treatment Consultations 06/24/20 01:03 Consult: Onc/Wound/[facility] Routine Comment: Operations: None Summary of Care Provided: The patient is a 70 year old F [] Patient Problems: Active and Suspected Problems Severe sepsis (Acute) - Physical Exam Vitals/I&O's: Vital Signs Temp Pulse Resp BP Pulse Ox 97.3 F L 91 16 114/54 L 99 07/06/20 09:09 07/06/20 09:09 07/06/20 09:09 07/06/20 09:09 07/06/20 09:09 Oxygen Delivery Method Room Air Weight: 125 lb 10.616 oz Body Mass Index (BMI) 20.2 Finger Stick Blood Glucose 103 Intake and Output for Last 24 Hours 07/04/20 07/05/20 07/06/20 23:59 23:59 23:59 Intake Total 1950 / 1950 1680 / 1680 55.75 / 55.75 Output Total 4325 / 4325 1750 / 1750 1150 / 1150 Balance -2375 / -2375 -70 / -70 -1094.25 / -1094.25 Microbiology Past 72 Hours 06/28/20 09:09 Tissue - Hip Gram Stain - Final 06/28/20 09:09 Tissue - Hip Wound Culture - Final Ochrobacterium anthropi Stenotrophomonas maltophilia Staphylococcus haemolyticus Enterococcus faecium Corynebacterium urealyticum 06/28/20 09:09 Tissue - Hip Anaerobic Culture - Final No anaerobic bacteria isolated. Current Medications Acetaminophen (Acetaminophen 500 Mg Tablet) 1,000 mg PO Q8 [facility] Last Admin: 07/06/20 05:49 Dose: 1,000 mg Documented by: Calamine/Phenol (Menthol/Lanolin/Calamine/Znox 113 Gm Tube) 1 applic TOPICAL TID [facility]; Protocol Last Admin: 07/06/20 05:50 Dose: 1 applicatio Documented by: Dicyclomine HCl (Dicyclomine 10 Mg Capsule) 20 mg PO Q6H PRN PRN PRN Reason: abdominal discomfort Enoxaparin Sodium (Enoxaparin 40 Mg/0.4 Ml Syringe) 40 mg SC DAILY@0600 [facility] Last Admin: 07/06/20 05:49 Dose: 40 mg Documented by: Folic Acid (Folic Acid 1 Mg Tablet) 1 mg PO DAILY@0800 [facility] Last Admin: 07/06/20 08:45 Dose: 1 mg Documented by: Gabapentin (Gabapentin 100 Mg Capsule) 100 mg PO Q8 [facility] Last Admin: 07/06/20 05:49 Dose: 100 mg Documented by: Hydroxyzine Pamoate (Hydroxyzine Crystal 25 Mg Capsule) 50 mg PO Q4H PRN PRN PRN Reason: mild anxiety Vancomycin IV Pharmacy to Dose (1 ea/ Sodium Chloride) 500 mls @ 250 mls/hr IV X1 PRN; Protocol PRN Reason: Rx to Dose Vancomycin HCl (Vancomycin) 1,000 mg in 200 mls @ 200 mls/hr IV Q12H [facility] Last Admin: 07/06/20 11:53 Dose: 200 mls/hr Documented by: Ceftriaxone Sodium 2 gm/ (Sodium Chloride) 50 mls @ 100 mls/hr IV Q24 [facility] Last Infusion: 07/06/20 11:30 Dose: Infused Documented by: Sodium Chloride () 250 mls @ 15 mls/hr IV .[id number] PRN PRN Reason: Saline Flush Last Infusion: 07/06/20 11:53 Dose: 0 mls/hr Documented by: Sodium Chloride () 250 mls @ 15 mls/hr IV .[id number] PRN PRN Reason: Additional IVPB Infusion L-Arginine/L-Glutamine/Calcium HMB ([facility] (Unflavored) Packet) [facility] Admin: 07/06/20 08:45 Dose: 1 packet Documented by: Levofloxacin (Levofloxacin 500 Mg Tablet) 500 mg PO DAILY@0600 [facility] Last Admin: 07/06/20 05:49 Dose: 500 mg Documented by: Loperamide HCl (Loperamide 2 Mg Capsule) 2 mg PO Q4H PRN PRN PRN Reason: LOOSE STOOLS Last Admin: 07/03/20 05:07 Dose: 2 mg Documented by: Metoprolol Tartrate (Metoprolol Tartrate 25 Mg Tablet) 25 mg PO BID [facility] Last Admin: 07/06/20 08:58 Dose: 25 mg Documented by: Metronidazole (Metronidazole 500 Mg Tablet) 500 mg PO TID [facility] Last Admin: 07/06/20 05:49 Dose: 500 mg Documented by: Nutritional Formula (Lactose Free) (Glucerna Shake 120 Ml Liquid) 120 ml PO 4X/DAY [facility] Last Admin: 07/06/20 08:57 Dose: 120 ml Documented by: Ondansetron HCl (Ondansetron 4 Mg/2 Ml Vial) 4 mg IV Q8H PRN PRN PRN Reason: NAUSEA/VOMITING Ondansetron HCl (Ondansetron 8 Mg Tablet) 8 mg PO Q8H PRN PRN PRN Reason: NAUSEA Oxycodone HCl (Oxycodone 5 Mg Tablet) 10 mg PO Q4H PRN PRN PRN Reason: Pain Score 6-10 Last Admin: 07/06/20 10:06 Dose: 10 mg Documented by: Oxycodone HCl (Oxycodone 5 Mg Tablet) 5 mg PO Q4H PRN PRN PRN Reason: Pain Score 4-5 Last Admin: 07/05/20 22:43 Dose: 5 mg Documented by: Senna/Docusate Sodium (Senna/Docusate Sodium 1 Tablet) 2 tablet PO BID PRN PRN PRN Reason: Constipation Sodium Chloride (0.9% Saline Lock 10 Ml Syringe) 10 - 40 ml IV UD PRN PRN Reason: SALINE FLUSH Last Admin: 07/06/20 10:32 Dose: 20 ml Documented by: Thiamine HCl (Thiamine Hydrochloride 100 Mg Tablet) [facility] [place] Last Admin: 07/06/20 08:45 Dose: 100 mg Documented by: Trazodone HCl (Trazodone 100 Mg Tablet) 100 mg PO QHS PRN PRN Reason: INSOMNIA Last Admin: 07/05/20 22:18 Dose: 100 mg Documented by: Home Medications: Medications to take at Discharge Ceftriaxone 2 gm IV Q24 #7 vial 06/30/20 Vancomycin IV [Vancomycin] 1,000 mg IV Q12H #14 bag 06/30/20 metroNIDAZOLE [Flagyl] 500 mg PO TID #21 tab 06/30/20 Acetaminophen [Tylenol] 1,000 mg PO Q8 tab 07/01/20 Dicyclomine HCl [Bentyl] 20 mg PO Q6H PRN PRN cap 07/01/20 Enoxaparin [Lovenox] 40 mg SC DAILY@0600 syringe 07/01/20 Folic Acid 1 mg PO DAILY@0800 tab 07/01/20 Glucerna Shake 120 ml PO 4X/DAY liquid 07/01/20 Timothy (unflavored) [Timothy Packet] 1 packet PO BIDCM packet 07/01/20 Menthol/Lanolin/Calamine/Znox [Calmoseptine Ointment] 1 applic TOPICAL TID tube 07/01/20 Metoprolol Tartrate [Lopressor (beta rené)] 25 mg PO BID tab 07/01/20 Oxycodone [Oxyir] 5 mg PO Q4H PRN 3 Days tab 07/01/20 Oxycodone [Oxyir] 10 mg PO Q4H PRN PRN 3 Days tab 07/01/20 Senna/Docusate Sodium [Senokot-S] 2 tab PO BID PRN PRN tab 07/01/20 Thiamine Hydrochloride [Vitamin B1] 100 mg PO DAILYCM tab 07/01/20 traZODone [Desyrel] 100 mg PO QHS PRN tab 07/01/20 Following Prescriptions Were Given to Patient: Ceftriaxone 2 gm IV Q24 #7 vial Prescription Printed metroNIDAZOLE [Flagyl] 500 mg PO TID #21 tab Prescription Printed Vancomycin IV [Vancomycin] 1,000 mg IV Q12H #14 bag Prescription Printed Primary Care Physician: Brant Howard Chi, MD [Primary Care Provider] - Within 2 Weeks (after discharge from [facility]) Please follow up with your Primary Care Physician in: 1-2 weeks Please Follow Up With: Calvin Saeed MD When: 1-2 weeks Medical Necessity - Tobacco Use Smoking Status: Current some day smoker
--- NOTE | 2020-07-06 14:52 | CASEMGMT ---
This RN RAHUL received a call from Vashti at [facility] and she states that they cannot accept pt now today as their pt who was supposed to be discharged today is not able to be discharged at this time. Transport cancelled at this time and Tierra Sullivan RN, Jerson-PCU charge, and Jessenia SW all updated at this time. Pt was updated by Tierra CRABTREE at this time as well. Per Vashti, pt is first on their list for a bed and will call this RN CM in the am. CM to follow. Jeanie CRABTREE CM
--- NOTE | 2020-07-06 15:42 | PN_ITS ---
Patient Problems: Active and Suspected Problems Severe sepsis (Acute) Subjective: Patient seen and examined. She complained of generalised pain. Plan was to discharge patient to LTAC today; however, discharge was canceled as LTAC didn't have a bed as envisaged today. She has remained hemodynamically stable. Labs and vitals reviewed. Vitals/I&O's: Vital Signs Temp Pulse Resp BP Pulse Ox 97.3 F L 91 16 114/54 L 99 07/06/20 09:09 07/06/20 09:09 07/06/20 09:09 07/06/20 09:09 07/06/20 09:09 Oxygen Delivery Method Room Air Weight: 125 lb 10.616 oz Body Mass Index (BMI) 20.2 Finger Stick Blood Glucose 103 Intake and Output for Last 24 Hours 07/04/20 07/05/20 07/06/20 23:59 23:59 23:59 Intake Total 1950 / 1950 1680 / 1680 270.75 / 270.75 Output Total 4325 / 4325 1750 / 1750 1150 / 1150 Balance -2375 / -2375 -70 / -70 -879.25 / -879.25 General: Alert, Oriented x3, Cooperative, No apparent distress HEENT: Atraumatic, PERRLA, EOMI, Normocephalic Oral: Dry Mucosa Neck: Supple, No JVD, Negative Carotid Bruits Lungs: Clear to auscultation, Normal air movement, No rhonchi, No wheeze, No rales Cardiovascular: Regular rate, Regular Rhythm, Normal S1, Normal S2, No murmurs Abdomen: Bowel Sounds Present, Soft, Non Tender, Non-Distended, No Hepato- splenomegaly Extremities: No edema, Capillary Refill Less than 3 Seconds Skin: No rashes, No breakdown Musculoskeletal: No Tenderness to Palpation of Joints or Extremities Lymphatic: No Cervical, Supraclavicular, or Inguinal Adenopathy Neurological: Cranial nerves II-XII grossly intact, Neuro grossly intact, Motor Exam 5/5 strength throughout Psych/Mental Status: flat affect Current Medications Acetaminophen (Acetaminophen 500 Mg Tablet) 1,000 mg PO Q8 [facility] Last Admin: 07/06/20 13:20 Dose: 1,000 mg Documented by: Calamine/Phenol (Menthol/Lanolin/Calamine/Znox 113 Gm Tube) 1 applic TOPICAL TID [facility]; Protocol Last Admin: 07/06/20 13:20 Dose: 1 applicatio Documented by: Dicyclomine HCl (Dicyclomine 10 Mg Capsule) 20 mg PO Q6H PRN PRN PRN Reason: abdominal discomfort Enoxaparin Sodium (Enoxaparin 40 Mg/0.4 Ml Syringe) 40 mg SC DAILY@0600 [facility] Last Admin: 07/06/20 05:49 Dose: 40 mg Documented by: Folic Acid (Folic Acid 1 Mg Tablet) 1 mg PO DAILY@0800 [facility] Last Admin: 07/06/20 08:45 Dose: 1 mg Documented by: Gabapentin (Gabapentin 100 Mg Capsule) 100 mg PO Q8 [facility] Last Admin: 07/06/20 13:20 Dose: 100 mg Documented by: Hydroxyzine Pamoate (Hydroxyzine Crystal 25 Mg Capsule) 50 mg PO Q4H PRN PRN PRN Reason: mild anxiety Vancomycin IV Pharmacy to Dose (1 ea/ Sodium Chloride) 500 mls @ 250 mls/hr IV X1 PRN; Protocol PRN Reason: Rx to Dose Vancomycin HCl (Vancomycin) 1,000 mg in 200 mls @ 200 mls/hr IV Q12H [facility] Last Infusion: 07/06/20 12:53 Dose: Infused Documented by: Ceftriaxone Sodium 2 gm/ (Sodium Chloride) 50 mls @ 100 mls/hr IV Q24 [facility] Last Infusion: 07/06/20 11:30 Dose: Infused Documented by: Sodium Chloride () 250 mls @ 15 mls/hr IV .[id number] PRN PRN Reason: Saline Flush Last Infusion: 07/06/20 13:15 Dose: Infused Documented by: Sodium Chloride () 250 mls @ 15 mls/hr IV .[id number] PRN PRN Reason: Additional IVPB Infusion L-Arginine/L-Glutamine/Calcium HMB (Timothy (Unflavored) Packet) 1 packet PO BIDCM [facility] Last Admin: 07/06/20 08:45 Dose: 1 packet Documented by: Levofloxacin (Levofloxacin 500 Mg Tablet) 500 mg PO DAILY@0600 [facility] Last Admin: 07/06/20 05:49 Dose: 500 mg Documented by: Loperamide HCl (Loperamide 2 Mg Capsule) 2 mg PO Q4H PRN PRN PRN Reason: LOOSE STOOLS Last Admin: 07/03/20 05:07 Dose: 2 mg Documented by: Metoprolol Tartrate (Metoprolol Tartrate 25 Mg Tablet) 25 mg PO BID [facility] Last Admin: 07/06/20 08:58 Dose: 25 mg Documented by: Metronidazole (Metronidazole 500 Mg Tablet) 500 mg PO TID [facility] Last Admin: 07/06/20 13:20 Dose: 500 mg Documented by: Nutritional Formula (Lactose Free) (Glucerna Shake 120 Ml Liquid) 120 ml PO 4X/DAY [facility] Last Admin: 07/06/20 13:20 Dose: 120 ml Documented by: Ondansetron HCl (Ondansetron 4 Mg/2 Ml Vial) 4 mg IV Q8H PRN PRN PRN Reason: NAUSEA/VOMITING Ondansetron HCl (Ondansetron 8 Mg Tablet) 8 mg PO Q8H PRN PRN PRN Reason: NAUSEA Oxycodone HCl (Oxycodone 5 Mg Tablet) 10 mg PO Q4H PRN PRN PRN Reason: Pain Score 6-10 Last Admin: 07/06/20 14:38 Dose: 10 mg Documented by: Oxycodone HCl (Oxycodone 5 Mg Tablet) 5 mg PO Q4H PRN PRN PRN Reason: Pain Score 4-5 Last Admin: 07/05/20 22:43 Dose: 5 mg Documented by: Senna/Docusate Sodium (Senna/Docusate Sodium 1 Tablet) 2 tablet PO BID PRN PRN PRN Reason: Constipation Sodium Chloride (0.9% Saline Lock 10 Ml Syringe) 10 - 40 ml IV UD PRN PRN Reason: SALINE FLUSH Last Admin: 07/06/20 10:32 Dose: 20 ml Documented by: Thiamine HCl ([facility]amine Hydrochloride 100 Mg Tablet) [facility] Last Admin: 07/06/20 08:45 Dose: 100 mg Documented by: Trazodone HCl (Trazodone 100 Mg Tablet) 100 mg PO QHS PRN PRN Reason: INSOMNIA Last Admin: 07/05/20 22:18 Dose: 100 mg Documented by: Medical Necessity - Tobacco Use Smoking Status: Current some day smoker Assessment/Plan All Active Problems 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 * #RLE cellulitis * due to pressure ulcer on left lower extremity * wound cultures are polymicrobial * on IV vancomycin and ceftriaxone * ID on board. Per ID, to continue with IV vancomycin, ceftriaxone, levaquin and metronidazole. * # UTI * urine cultured E coli * on IV ceftriaxone. * * # Diarrhea: on immodium. C Diff negative. #History of alcohol abuse: on thiamine and folate. Not in withdrawal # Chronic pain: on low dose gabapentin #Moderate protein calorie malnutrition: dietary on board. # Debility: PT/OT on board. Fall precautions. Disposition: awaiting placement. [facility] didnt have bed today as envisaged. For likely discharge tomorrow. Inpatient E&M: 10831 Subs Hosp L2
[2020-07-07] MEDS: oxyCODONE 5 MG Tablet 10 MG PO ×4 (01:20→18:05)
[2020-07-07 03:10] VITALS: BP 109/59; PULSE 76; RESP 16; TEMP 36.7; O2SAT 98
[2020-07-07] MEDS: Enoxaparin 40 MG/0.4 ML Syringe SC (05:26)
[2020-07-07] MEDS: Menthol/Lanolin/Calamine/Znox 113 GM Tube 1 APPLIC TOPICAL ×2 (05:26→13:31)
[2020-07-07] MEDS: Acetaminophen 500 MG Tablet 1000 MG PO ×2 (05:27→13:30)
[2020-07-07] MEDS: levoFLOXacin 500 MG Tablet PO (05:28)
[2020-07-07] MEDS: metroNIDAZOLE 500 MG Tablet PO ×2 (05:28→13:30)
[2020-07-07] MEDS: Gabapentin 100 MG Capsule PO ×2 (05:28→13:30)
[2020-07-07 08:58] VITALS: BP 106/55; PULSE 82
[2020-07-07] MEDS: Thiamine Hydrochloride 100 MG Tablet PO (08:58)
[2020-07-07] MEDS: Metoprolol Tartrate 25 MG Tablet PO (08:58)
[2020-07-07] MEDS: Folic Acid 1 MG Tablet PO (08:58)
[2020-07-07] MEDS: Juven (unflavored) Packet 1 PACKET PO (09:00)
[2020-07-07] MEDS: Glucerna Shake 120 ML LIQUID PO ×3 (09:01→18:06)
[2020-07-07 09:05] VITALS: BP 106/55; PULSE 79; RESP 16; TEMP 36.8; O2SAT 97
--- NOTE | 2020-07-07 10:01 | CASEMGMT ---
Call from Vashti at [facility] and she states they can accept pt today at 1800. Idania, PCU clerical secretary, aware and setting up transport for 1700 at this time. Jerson-PCU charge and Yodit CRABTREE updated at this time, voice understanding. Dr. Humphrey aware, voices understanding. CM to follow. Jeanie CRABTREE CM
[2020-07-07 11:04] LABS: Vancomycin, Trough Level 19.5 ug/mL (5.0-15.0)
[2020-07-07] MEDS: Vancomycin IV 1,000 MG/200 ML BAG 200 MG IV (11:14)
--- NOTE | 2020-07-07 12:43 | PHA.PHARE_ITS ---
Consult Pharmacy has been consulted to manage selected antiobiotic: Vancomycin Type of Consult: Follow-up Prior Doses of Antibiotics Received/Current Regimen: Has been on 1gm iv q12h. Labs: Sodium 133 mmol/L (136-145) L 07/05/20 05:35 Potassium 4.3 mmol/L (3.5-5.1) 07/05/20 05:35 Chloride 99 mmol/L (98-107) 07/05/20 05:35 Carbon Dioxide 28.0 mmol/L (21.0-32.0) 07/05/20 05:35 Anion Gap 6 (5-15) 07/05/20 05:35 BUN 17 mg/dL (7-18) 07/05/20 05:35 Creatinine 0.65 mg/dL (0.55-1.02) 07/05/20 05:35 Est GFR (MDRD) Af Amer 115 mL/min (>60) 07/05/20 05:35 Est GFR (MDRD) Non-Af 95 mL/min (>60) 07/05/20 05:35 BUN/Creatinine Ratio 26.2 RATIO (10-20) H 07/05/20 05:35 Glucose 301 mg/dL (74-106) H 07/05/20 05:35 Vancomycin Trough 19.5 ug/mL (5.0-15.0) H 07/07/20 10:30 Random Vancomycin 8.7 ug/mL (0.0-15.0) 06/28/20 05:35 Microbiology: Microbiology 06/28/20 09:09 Tissue - Hip Gram Stain - Final 06/28/20 09:09 Tissue - Hip Wound Culture - Final Ochrobacterium anthropi Stenotrophomonas maltophilia Staphylococcus haemolyticus Enterococcus faecium Corynebacterium urealyticum 06/28/20 09:09 Tissue - Hip Anaerobic Culture - Final No anaerobic bacteria isolated. 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 coli 06/24/20 16:30 Stool C. difficile DNA Amplification - Final 06/23/20 21:15 Mucosa - Nose SARS-CoV-2 Antigen (Rapid) - Final Weight used for dosin kg Estimated Creatinine Clearance: ~46ml/min Goal Trough: 15-20 mcg/mL Pharmacy Plan for Drug Dosing: Today's trough level was 19.5 (goal range 15-20mcg/ml). Will continue 1gm iv q12h and get another trough level tomorrow 1.30.21 since last level was near upper end of desired range. Pharmacy Service will continue to monitor and adjust dosing as required. Follow-Up Labs: Trough Vancomycin - 1.30.21 @2230 before 2300 dose
[2020-07-07 15:05] VITALS: BP 131/64; PULSE 84; RESP 16; TEMP 37.3; O2SAT 95
--- NOTE | 2020-07-07 16:09 | CASEMGMT ---
Orders were faxed to [facility]. Zoe ALVAREZ MARKETING COMMUNICATION MANAGER
--- NOTE | 2020-07-07 16:21 | PCM.DC.SUM ---
Discharge Date and Diagnosis - Problem List Patient Problems: Active and Suspected Problems Severe sepsis (Acute) Date of Admission: 06/23/20 Date of Discharge: 07/07/20 - Primary Discharge Diagnosis Acute Problems: Active Problems Severe sepsis (Acute) - Secondary Discharge Diagnosis Chronic Problems: Chronic Problems Debility (Chronic) Autoimmune pancreatitis (Chronic) Alcohol dependence (Chronic) Psoriatic arthritis (Chronic) Severe protein-calorie malnutrition (Chronic) HLD (hyperlipidemia) (Chronic) GERD (gastroesophageal reflux disease) (Chronic) Tobacco use (Chronic) Alcoholism (Chronic) Hepatic steatosis (Chronic) Alcoholic hepatitis (Chronic) Abnormal LFTs (Chronic) Alcoholic pancreatitis (Chronic) Alcohol abuse (Chronic) Hypertension (Chronic) Hypothyroidism (Chronic) Anxiety (Chronic) Fibromyalgia (Chronic) Dysphagia (Chronic) Rheumatoid arthritis (Chronic) never confirmed.....RA is negative.....tells me that she has psoriatic arthritis Psoriasis (Chronic) Chronic back pain (Chronic) osteoarthritis Delusional disorder (Chronic) Bipolar disorder (Chronic) Depression with H/o suicidal attempt (Chronic) Hospital Course and Treatment Imaging Results: Diagnostic Data Hip/Pelvis X-Ray 06/23/20 20:57 IMPRESSION: No acute fracture Electronically Signed: Justo Brady MD at 22:00 EST , Service support , Venous Duplex 06/23/20 21:10 IMPRESSION: Normal venous Doppler ultrasound of the lower extremity. Electronically Signed: Justo Brady MD at 22:32 EST , Service support , Chest X-Ray 06/23/20 21:38 IMPRESSION: No acute disease Electronically Signed: Justo Brady MD at 22:00 EST , Service support , Brain CT 06/23/20 21:51 IMPRESSION: Chronic involutional changes of the brain. Electronically Signed: Justo Brady MD at 22:22 EST , Service support , Chest CTA 06/23/20 21:51 IMPRESSION: Right perihilar groundglass opacities are nonspecific. Differential considerations include infectious, inflammatory, neoplastic etiologies. Chronic pancreatitis. Electronically Signed: Justo Brady MD at 22:30 EST , Service support , Lower Extremity CT 06/26/20 08:00 IMPRESSION: No bony abnormality is seen. Soft tissue changes as described. No focal abscess or fluid collection is present. Electronically Signed: Edison Varela MD at 9:05 EST , Service support , Consultations 06/24/20 01:03 Consult: Onc/Wound/splitter tender Routine Comment: Operations: None Procedures: None Summary of Care Provided: Patient is a 70 y/o female with a PMH as outlined who was admitted via the ED after she was on the floor, where she had been lying for 2 days prior to being found. Her friend who had keys to her house went to check on her and found her lying on the floor, and called the paramedics. Patient complaiend of generalised pain for which she had been drinking alcohol to help with the pain. On admission, she was found to be tachycardic, and had leucocytosis, with elevated lactic acid. She was therefore admitted and managed for sepsis due to a right hip infection. She was started on IV vancomycin and IV zosyn. Plastic surgery was consulted, and ID was also consulted. Duplex of the lower extremities were negative for DVT. She had debridement of the right hip wound done by plastic surgery. WOund culture was polymicrobial and urine cultured E coli; blood culture E. coli. She was continued on her IV antibiotics. Patient was skilled is needing shelter care and plan was to discharge to LTAC. She was discharged to the LTAC on 07/07/2020 and was discharged on IV vancomycin, as well as IV Zosyn and IV metronidazole and IV levofloxacin. She is to follow up with her PCP, ID and plastic surgery. Patient has no complaints. Review of systems was otherwise negative. Labs and vitals reviewed. Home medications reviewed and reconciled. O/E: Vital Signs Temp Pulse Resp BP Pulse Ox 99.1 F 84 16 131/64 H 95 07/07/20 15:05 07/07/20 15:05 07/07/20 15:05 07/07/20 15:05 07/07/20 15:05 [] General: Alert, Oriented x3, Cooperative, No apparent distress HEENT: Atraumatic, PERRLA, EOMI, Normocephalic Oral: Dry Mucosa Neck: Supple, No JVD, Negative Carotid Bruits Lungs: Clear to auscultation, Normal air movement, No rhonchi, No wheeze, No rales Cardiovascular: Regular rate, Regular Rhythm, Normal S1, Normal S2, No murmurs Abdomen: Bowel Sounds Present, Soft, Non Tender, Non-Distended, No Hepato-splenomegaly Extremities: No edema, Capillary Refill Less than 3 Seconds Skin: No rashes, No breakdown Musculoskeletal: No Tenderness to Palpation of Joints or Extremities Lymphatic: No Cervical, Supraclavicular, or Inguinal Adenopathy Neurological: Cranial nerves II-XII grossly intact, Neuro grossly intact, Motor Exam 5/5 strength throughout Psych/Mental Status: flat affect Plan is for discharge to LTAC Patient Problems: Active and Suspected Problems Severe sepsis (Acute) - Physical Exam Vitals/I&O's: Vital Signs Temp Pulse Resp BP Pulse Ox 99.1 F 84 16 131/64 H 95 07/07/20 15:05 07/07/20 15:05 07/07/20 15:05 07/07/20 15:05 07/07/20 15:05 Oxygen Delivery Method Room Air Weight: 125 lb 10.616 oz Body Mass Index (BMI) 20.2 Finger Stick Blood Glucose 103 Intake and Output for Last 24 Hours 07/05/20 07/06/20 07/07/20 23:59 23:59 23:59 Intake Total 1680 / 1680 1350.75 / 1350.75 1260 / 1260 Output Total 1750 / 1750 3050 / 3050 1900 / 1900 Balance -70 / -70 -1699.25 / -1699.25 -640 / -640 Laboratory Results 07/07/20 10:30: Vancomycin Trough 19.5 H Current Medications Acetaminophen (Acetaminophen 500 Mg Tablet) 1,000 mg PO Q8 [facility] Last Admin: 07/07/20 13:30 Dose: 1,000 mg Documented by: Calamine/Phenol (Menthol/Lanolin/Calamine/Znox 113 Gm Tube) 1 applic TOPICAL TID [facility]; Protocol Last Admin: 07/07/20 13:31 Dose: 1 applicatio Documented by: Dicyclomine HCl (Dicyclomine 10 Mg Capsule) 20 mg PO Q6H PRN PRN PRN Reason: abdominal discomfort Enoxaparin Sodium (Enoxaparin 40 Mg/0.4 Ml Syringe) 40 mg SC DAILY@0600 [facility] Last Admin: 07/07/20 05:26 Dose: 40 mg Documented by: Folic Acid (Folic Acid 1 Mg Tablet) 1 mg PO DAILY@0800 [facility] Last Admin: 07/07/20 08:58 Dose: 1 mg Documented by: Gabapentin (Gabapentin 100 Mg Capsule) 100 mg PO Q8 [facility] Last Admin: 07/07/20 13:30 Dose: 100 mg Documented by: Hydroxyzine Pamoate (Hydroxyzine Crystal 25 Mg Capsule) 50 mg PO Q4H PRN PRN PRN Reason: mild anxiety Vancomycin IV Pharmacy to Dose (1 ea/ Sodium Chloride) 500 mls @ 250 mls/hr IV X1 PRN; Protocol PRN Reason: Rx to Dose Vancomycin HCl (Vancomycin) 1,000 mg in 200 mls @ 200 mls/hr IV Q12H [facility] Last Infusion: 07/07/20 13:35 Dose: Infused Documented by: Ceftriaxone Sodium 2 gm/ (Sodium Chloride) 50 mls @ 100 mls/hr IV Q24 [facility] Last Infusion: 07/07/20 09:45 Dose: Infused Documented by: Sodium Chloride () 250 mls @ 15 mls/hr IV .[id number] PRN PRN Reason: Saline Flush Last Infusion: 07/06/20 13:15 Dose: Infused Documented by: Sodium Chloride () 250 mls @ 15 mls/hr IV .[id number] PRN PRN Reason: Additional IVPB Infusion L-Arginine/L-Glutamine/Calcium HMB (Timothy (Unflavored) Packet) 1 packet PO BIDCM [facility] Last Admin: 07/07/20 09:00 Dose: 1 packet Documented by: Levofloxacin (Levofloxacin 500 Mg Tablet) 500 mg PO DAILY@0600 [facility] Last Admin: 07/07/20 05:28 Dose: 500 mg Documented by: Loperamide HCl (Loperamide 2 Mg Capsule) 2 mg PO Q4H PRN PRN PRN Reason: LOOSE STOOLS Last Admin: 07/03/20 05:07 Dose: 2 mg Documented by: Metoprolol Tartrate (Metoprolol Tartrate 25 Mg Tablet) 25 mg PO BID [facility] Last Admin: 07/07/20 08:58 Dose: 25 mg Documented by: Metronidazole (Metronidazole 500 Mg Tablet) 500 mg PO TID [facility] Last Admin: 07/07/20 13:30 Dose: 500 mg Documented by: Nutritional Formula (Lactose Free) (Glucerna Shake 120 Ml Liquid) 120 ml PO 4X/DAY [facility] Last Admin: 07/07/20 13:33 Dose: 120 ml Documented by: Ondansetron HCl (Ondansetron 4 Mg/2 Ml Vial) 4 mg IV Q8H PRN PRN PRN Reason: NAUSEA/VOMITING Ondansetron HCl (Ondansetron 8 Mg Tablet) 8 mg PO Q8H PRN PRN PRN Reason: NAUSEA Oxycodone HCl (Oxycodone 5 Mg Tablet) 10 mg PO Q4H PRN PRN PRN Reason: Pain Score 6-10 Last Admin: 07/07/20 11:22 Dose: 10 mg Documented by: Oxycodone HCl (Oxycodone 5 Mg Tablet) 5 mg PO Q4H PRN PRN PRN Reason: Pain Score 4-5 Last Admin: 07/05/20 22:43 Dose: 5 mg Documented by: Senna/Docusate Sodium (Senna/Docusate Sodium 1 Tablet) 2 tablet PO BID PRN PRN PRN Reason: Constipation Sodium Chloride (0.9% Saline Lock 10 Ml Syringe) 10 - 40 ml IV UD PRN PRN Reason: SALINE FLUSH Last Admin: 07/06/20 10:32 Dose: 20 ml Documented by: Thiamine HCl ([facility] Hydrochloride 100 Mg Tablet) [facility] Admin: 07/07/20 08:58 Dose: 100 mg Documented by: Trazodone HCl (Trazodone 100 Mg Tablet) 100 mg PO QHS PRN PRN Reason: INSOMNIA Last Admin: 07/05/20 22:18 Dose: 100 mg Documented by: Home Medications: Medications to take at Discharge Ceftriaxone 2 gm IV Q24 #7 vial 06/30/20 Vancomycin IV [Vancomycin] 1,000 mg IV Q12H #14 bag 06/30/20 metroNIDAZOLE [Flagyl] 500 mg PO TID #21 tab 06/30/20 Acetaminophen [Tylenol] 1,000 mg PO Q8 tab 07/01/20 Dicyclomine HCl [Bentyl] 20 mg PO Q6H PRN PRN cap 07/01/20 Enoxaparin [Lovenox] 40 mg SC DAILY@0600 syringe 07/01/20 Folic Acid 1 mg PO DAILY@0800 tab 07/01/20 Glucerna Shake 120 ml PO 4X/DAY liquid 07/01/20 Timothy (unflavored) [Timothy Packet] 1 packet PO BIDCM packet 07/01/20 Menthol/Lanolin/Calamine/Znox [Calmoseptine Ointment] 1 applic TOPICAL TID tube 07/01/20 Metoprolol Tartrate [Lopressor (beta rené)] 25 mg PO BID tab 07/01/20 Senna/Docusate Sodium [Senokot-S] 2 tab PO BID PRN PRN tab 07/01/20 Thiamine Hydrochloride [Vitamin B1] 100 mg PO DAILYCM tab 07/01/20 traZODone [Desyrel] 100 mg PO QHS PRN tab 07/01/20 levoFLOXacin tablet [Levaquin tablet] 500 mg PO DAILY@0600 #5 tab 07/07/20 Following Prescriptions Were Given to Patient: Ceftriaxone 2 gm IV Q24 #7 vial Prescription Printed metroNIDAZOLE [Flagyl] 500 mg PO TID #21 tab Prescription Printed Vancomycin IV [Vancomycin] 1,000 mg IV Q12H #14 bag Prescription Printed Primary Care Physician: Brant Howard Chi, MD [Primary Care Provider] - Within 2 Weeks (after discharge from LTAC) Please follow up with your Primary Care Physician in: 1-2 weeks Please Follow Up With: Calvin Saeed MD When: 1-2 weeks Disposition: [facility] Minutes spent on discharge:: 50 Patient Condition:: Fair Medical Necessity - Tobacco Use Smoking Status: Current some day smoker Meaningful Use Info Meaningful Use Diagnoses (Choose all that apply): None applicable
== END 2020-07-07 19:00 | DRG 853 ==
LOC: ED 22:49 → PCU 23:10
PROVIDERS: Internal Medicine; Internal Medicine Infectious Disease; Nurse Practitioner Family; Surgery; Admitting Provider Hospitalist; Emergency Provider Emergency Medicine; PCP Family Medicine Geriatric Medicine; Visit Provider Student in an Organized Health Care Education/Training Program
PROC: 0KBN0ZZ Excision of Right Hip Muscle, Open Approach (ICD-10-PCS; CPT 15999; principal; 2020-06-28 07:15)
DX: A41.51 Sepsis due to Escherichia coli [E. coli] (principal); L89.214 Pressure ulcer of right hip, stage 4; K86.1 Other chronic pancreatitis; N30.00 Acute cystitis without hematuria; E44.0 Moderate protein-calorie malnutrition; K86.0 Alcohol-induced chronic pancreatitis; L03.115 Cellulitis of right lower limb; R65.20 Severe sepsis without septic shock; R53.81 Other malaise; D89.89 Other specified disorders involving the immune mechanism, not elsewhere classified; Z68.20 Body mass index [BMI] 20.0-20.9, adult; E87.6 Hypokalemia; F10.20 Alcohol dependence, uncomplicated; R79.1 Abnormal coagulation profile; B96.20 Unspecified Escherichia coli [E. coli] as the cause of diseases classified elsewhere; I10 Essential (primary) hypertension; R29.6 Repeated falls; F31.9 Bipolar disorder, unspecified; E03.9 Hypothyroidism, unspecified; Z96.642 Presence of left artificial hip joint; F03.90 Unspecified dementia, unspecified severity, without behavioral disturbance, psychotic disturbance, mood disturbance, and anxiety; F17.210 Nicotine dependence, cigarettes, uncomplicated; F41.9 Anxiety disorder, unspecified; Y90.5 Blood alcohol level of 100-119 mg/100 ml; G89.29 Other chronic pain; R19.7 Diarrhea, unspecified
CPT/HCPCS: 36415; 70450; 71045; 71275; 73502; 73700; 80048; 80053; 80076; 80202; 81001; 82077; 82550; 82607; 82746; 83605; 83690; 84134; 84443; 84484; 85025; 85027; 85379; 85610; 85730; 87015; 87040; 87070; 87075; 87077; 87086; 87088; 87102; 87116; 87186; 87205; 87206; 87426; 87493; 88305; 93005; 93971; 97110; 97162; 97166; 97530; 97535; 97802; 97803; 99285; 99406; J7030; J7050; Q9967; A4216; J0696; J2405

== ENCOUNTER 2022-11-24 09:04 | Emergency (ER) | payer SELFPAY ==
[2022-11-24] VITALS (8 sets, daily range): BP systolic 81–166; BP diastolic 22–59; PULSE 88–137; RESP 15–20; TEMP 36.1; O2SAT 87–99; BMI 22.4
--- NOTE | 2022-11-24 09:12 | CT_ITS ---
STUDY: CT BRAIN WITHOUT CONTRAST REASON FOR EXAM: Female, 72 years old. poss fall, confusion RADIATION DOSAGE (If Supplied By Facility): CTDIvol = ( 44.99 ) mGy, DLP = ( 796.11 ) mGycm TECHNIQUE: Transaxial CT imaging of the brain was performed without administration of intravenous contrast material. Individualized dose optimization techniques were used for this CT. COMPARISON: 06/23/2020 FINDINGS: Normal soft tissue structures. Normal calvarium. There is moderate cerebral atrophy with widening of the extra-axial spaces and ventricular dilatation. There are areas of decreased attenuation within the white matter tracts of the supratentorial brain, consistent with microvascular disease changes. Normal basal ganglia and thalami. Normal brainstem. Normal cerebellum. There is no intracranial hemorrhage. There are no findings of an acute ischemic infarction. Normal visualized paranasal sinuses. CT/Brain/Head without Contrast IMPRESSION: Chronic involutional changes of the brain. Electronically Signed: Reynaldo Gill MD at 10:19 EDT ,
--- NOTE | 2022-11-24 09:14 | RAD_ITS ---
STUDY: X-RAY - PELVIS REASON FOR EXAM: Female, 72 years old. bilat hip pain, poss fall TECHNIQUE: One view of the pelvis was obtained. COMPARISON: None. FINDINGS: There is a non-specific bowel gas pattern. Normal visualized soft tissue structures. Normal bilateral iliac wings, sacroiliac joints and visualized sacrum. Normal visualized bilateral superior and inferior pubic rami. Normal pubic symphysis. Normal ischial tuberosities. Normal visualized right femoral head. Normal right acetabulum. Normal right hip joint. Status post left hip hemiarthroplasty. The prosthesis appears located.. RAD/Pelvis 1 or 2 Views IMPRESSION: No acute fracture or dislocation. Electronically Signed: Reynaldo Gill MD at 10:43 EDT ,
--- NOTE | 2022-11-24 09:14 | EDS_ITS ---
HPI History of Present Illness Chief Complaint: Fall Narrative Narrative: EMS brought patient from assisted living due to apparent fall although the patient denies falling and/or does not remember a fall. They state that there is alcohol on the floor nearby, the patient admits to only drinking 3 shots. It is 9 AM. She apparently has a history of alcohol abuse/dependence. On review of systems she states she has pain in all of her joints all over, all the time, for years. She has rheumatoid arthritis and fibromyalgia. She states none of this is necessarily new or different than usual. EMS reports that patient can no longer take care of herself. When I asked her about this, she starts talking about her mental health diagnoses. I asked her what diagnosis she was given, and she states I do not know, is not it obvious? I asked her if she was hallucinating, hearing voices, suicidal, and/or bipolar, she states no, they have diagnosed me with everything. PFSH PFSH Home Medications ceftriaxone 2 gram solution for injection 2 gm IV Q24 #7 vials 06/30/20 [Rx Last Taken Unknown] metronidazole 500 mg tablet 500 mg PO TID #21 tabs 06/30/20 [Rx Last Taken Unknown] vancomycin 1 gram/200 mL in dextrose 5 % intravenous piggyback 1,000 mg IV Q12H ##14 06/30/20 [Rx Last Taken Unknown] acetaminophen 500 mg tablet 1,000 mg PO Q8 07/01/20 [Rx Last Taken Unknown] arginine 7 gram-glutam 7 gram-CaHMB 1.5 grfq-sfdsf-ok-min oral pwd pkt 1 packet PO BIDCM 07/01/20 [Rx Last Taken Unknown] dicyclomine 10 mg capsule 20 mg PO Q6H PRN PRN abdominal discomfort 07/01/20 [Rx Last Taken Unknown] enoxaparin 40 mg/0.4 mL subcutaneous syringe 40 mg (0.4 mL) subcut DAILY@0600 07/01/20 [Rx Last Taken Unknown] folic acid 1 mg tablet 1 mg PO DAILY@0800 07/01/20 [Rx Last Taken Unknown] menthol 0.44 %-zinc oxide 20.6 % topical ointment 1 applic topical TID 07/01/20 [Rx Last Taken Unknown] metoprolol tartrate 25 mg tablet 25 mg PO BID 07/01/20 [Rx Last Taken Unknown] nutrition tx glu intol,lac-free,soy-fiber 0.06 gram-1.2 kcal/mL liquid 120 ml PO 4X/DAY 07/01/20 [Rx Last Taken Unknown] sennosides 8.6 mg-docusate sodium 50 mg tablet 2 tab PO BID PRN PRN Constipation 07/01/20 [Rx Last Taken Unknown] thiamine HCl (vitamin B1) 100 mg tablet 100 mg PO DAILYCM 07/01/20 [Rx Last Taken Unknown] trazodone 100 mg tablet 100 mg PO QHS PRN Insomnia 07/01/20 [Rx Last Taken Unknown] levofloxacin 500 mg tablet 500 mg PO DAILY@0600 #5 tabs 07/07/20 [Rx Last Taken Unknown] Allergy/AdvReac Type Severity Reaction Status Date / Time nickel [Nickel] Allergy Rash/autoimmune Verified 11/24/22 09:15 reactions prochlorperazine edisylate AdvReac disoriente Verified 11/24/22 09:15 [From Compazine] d prochlorperazine maleate AdvReac DISORIENTED Verified 11/24/22 09:15 [From Compazine] CADMIUM Allergy Rash Uncoded 06/23/20 19:56 Social History Smoking Status: Current some day smoker tobacco type: cigarettes ROS ROS ED Constitutional Constitutional ED: Denies chills or fever(s) Eyes Eyes: Reports other Details: 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 ; Denies change in vision or diplopia ENT ENT ED: Denies rhinorrhea or sore throat Cardiovascular Cardiovascular: Denies chest pain or palpitations Respiratory/Chest Respiratory/Chest: Denies cough or dyspnea Gastrointestinal Gastrointestinal: Denies abdominal pain, diarrhea, nausea or vomiting Genitourinary Genitourinary ED: Denies dysuria or hematuria Musculoskeletal Musculoskeletal: Reports arthralgias, back pain and extremity pain; Denies neck pain Integumentary Denies abscess or rash Neurologic Neurologic: Denies headache(s), paresthesias or weakness Psychiatric Psychiatric: Denies hallucinations EXAM Physical Exam Const Vital Signs: 11/24/22 09:05 11/24/22 09:16 11/24/22 12:25 Temperature 97 F L Temperature Source Temporal Pulse Rate 88 Respiratory Rate 16 16 Respiratory Effort Normal Non-Labored Respiratory Depth Normal Respiratory Pattern Normal Blood Pressure 134/55 H Blood Pressure Mean 81 Pulse Ox 97 Oxygen Delivery Method Room Air Room Air 11/24/22 14:01 Temperature Temperature Source Pulse Rate 110 H Respiratory Rate 18 Respiratory Effort Respiratory Depth Respiratory Pattern Blood Pressure 107/22 L Blood Pressure Mean 50 Pulse Ox 98 Oxygen Delivery Method Room Air Positive well nourished and well developed General Appearance ED: well developed and NAD HEENT Reports moist mucous membranes HEENT Narrative: Contusion/tenderness right upper cheek, no midfacial instability or crepitance, no other signs of HEENT trauma normocephalic Eyes PERRL and EOMs intact bilaterally Neck full ROM, no lymphadenopathy and supple General: Negative for tenderness Chest Wall Negative for inspection of chest normal or palpation of chest normal Resp normal respiratory effort and clear to auscultation bilaterally Cardio regular rate, regular rhythm and no murmurs GI non-tender and non-distended Auscultation: normoactive bowel sounds Palpation: soft Back/Spine no CVA tenderness General Back: other FROM Extremity normal to inspection Extremity Narrative: Limited range of motion of all 4 extremities but she is able to move all joints. She states it hurts everywhere whenever she moves anything. All 4 extremities are normal-appearing without edema, calf tenderness, signs of infection, or signs of any acute injury. The right hip does not seem to hurt when I passively range it but the left one does. She states this is not new. General Extremety ED: Negative for edema, pulses abnormal or tenderness General Extremity: Negative for edema or pulses abnormal Neuro CN's II-XII intact bilaterally and no sensory deficits noted Neuro Narrative: Limited orientation evaluation since patient often refuses to answer questions appropriately Sensorium / Orientation: awake and alert Motor Exam: strength 5/5 throughout Psych Psych Narrative: Tangential. See HPI. Skin no rashes or lesions noted and no wounds Skin Narrative: Contusion right upper cheek without infraorbital hypoesthesia or laceration MDM MDM MDM Narrative Medical decision making narrative: I performed a CT of the head which also included the right infraorbital area where she appears to have a contusion, that appears negative for any acute fractures or acute intracranial hemorrhage/injury, radiology was in agreement I agree with the report. Chest x-ray 2 views on my interpretation negative for acute pneumonia or other acute pathology, and 1 view pelvis x-ray obtained because of a probable fall and hip pain is negative for acute fracture or dislocation on my interpretation, she has a total hip arthroplasty on the left that is intact. The rest of her labs are noted, she has a mild leukocytosis which is nonspecific no bandemia, the patient went to provide a urine specimen, she comes back to the room walking on her own, little unsteady but refusing assistance and gets back to the bed without any difficulty, carrying an empty specimen cup, I asked her if she urinated okay, she states yes and that she forgot that she had a cup with her and forgot to put any urine in it. She had no problems urinating, so the chances of urine infection are low here and I do not think we need to catheterize her for specimen. Her vital signs are normal. I did note her history of mental health diagnoses including delusional disorder and bipolar disorder as well as depression and anxiety. She denies any suicidal ideation right now. My plan is to have nursing discussed with assisted living, see if there are any other concerns about her coming back. We observed her for a while since her alcohol level came back at 210, and this was a repeat specimen that was drawn after she had been observed for about 4 hours. She is able to walk without difficulty at this time. When we discussed with the assisted living staff, they were okay with her coming back, their main concern was that she had fallen and was not able to walk. I think at the time this was probably because she was intoxicated. Lab Data Attestation: I reviewed the patient's lab results. Labs: Laboratory Results - last 24 hr 11/24/22 11/24/22 11/24/22 09:30 09:30 12:13 WBC 12.4 H RBC 5.01 Hgb 15.1 H Hct 47.0 MCV 93.8 MCH 30.1 MCHC 32.1 RDW Std Deviation 45.0 H RDW Coeff of Jonathan 13.3 Plt Count 334 MPV 9.3 Immature Gran % (Auto) 1.300 H Neut % (Auto) 73.7 H Lymph % (Auto) 15.9 L [place] % (Auto) 6.6 Eos % (Auto) 1.9 Baso % (Auto) 0.6 Absolute Neuts (auto) 9.2 H Absolute Lymphs (auto) 1.98 Nucleated RBC % 0 Sodium 136 Potassium 4.6 Chloride 101 Carbon Dioxide 23.0 Anion Gap 12 BUN 14 Creatinine 0.65 Estim Creat Clear Calc 44.41 Est GFR (MDRD) Af Amer 114 Est GFR (MDRD) Non-Af 94 BUN/Creatinine Ratio 21.4 H Glucose 100 Calcium 9.0 Total Bilirubin 0.20 AST 27 ALT 32 Alkaline Phosphatase 100 Troponin I High Sens 8 Total Protein 7.6 Albumin 3.8 Globulin 3.8 Albumin/Globulin Ratio 1.0 Ethyl Alcohol 210.0 Radiography Diagnostic Testing: Clinical Impression(s) from Imaging Studies Brain CT 11/24/22 09:12 IMPRESSION: Chronic involutional changes of the brain. Electronically Signed: Reynaldo Gill MD at 10:19 EDT Reading Location ID and State: [id number] / [employer] , Service support , Pelvis X-Ray 11/24/22 09:14 IMPRESSION: No acute fracture or dislocation. Electronically Signed: Reynaldo Gill MD at 10:43 EDT Reading Location ID and State: [employer] / [employer] , Service support , Chest X-Ray 11/24/22 09:58 IMPRESSION: Normal x-ray examination of the chest. Electronically Signed: Reynaldo Gill MD at 10:28 EDT Reading Location ID and State: [id number] / [employer] , Service support , My interpretation of the CT agrees with that of the radiologist. Rhythm Strip Rhythm Strip: Sinus Rhythm Rate: 80 Ectopy: None EKG Initial EKG: Attestation: I personally reviewed and interpreted this EKG as follows: Interpretation: Sinus Rhythm and No Acute Injury Pattern Discharge Plan Triage Chief Complaint: Fall ED Provider: Anil Locke Dx/Rx/DC Orders Clinical Impression: Closed head injury without loss of consciousness, Contusion of face, Alcohol intoxication Instructions: ED Alcohol Intoxication, ED Facial Contusion Prescriptions: No Action metronidazole 500 MG tablet 500 mg PO TID Qty: 21 0RF ceftriaxone 2 GM recon soln 2 gm IV Q24 Qty: 7 0RF vancomycin in dextrose 5 % 1,000 MG/200 ML piggyback 1,000 mg IV Q12H Qty: 14 0RF Rx Instructions: stop date 07/07/20 dx: R hip infection weekly bmp, cbc, and vanc trough, fax to [phone] sennosides-docusate sodium 1 TABLET tablet 2 tab PO BID PRN PRN (Reason: Constipation) 0RF thiamine HCl (vitamin B1) 100 MG tablet 100 mg PO DAILYCM 0RF acetaminophen 500 MG tablet 1,000 mg PO Q8 0RF trazodone 100 MG tablet 100 mg PO QHS PRN (Reason: Insomnia) 0RF folic acid 1 MG tablet 1 mg PO DAILY@0800 0RF dicyclomine 10 MG capsule 20 mg PO Q6H PRN PRN (Reason: abdominal discomfort) 0RF enoxaparin 40 MG/0.4 ML syringe 40 mg SC DAILY@0600 0RF metoprolol tartrate 25 MG tablet 25 mg PO BID 0RF nut.tx.gluc intol,lf,soy-fiber 120 ML liquid 120 ml PO 4X/DAY 0RF menthol-zinc oxide 1 APPLIC ointment 1 applic TOPICAL TID 0RF Protocol: *Topical Application Instructions APPLICATION INSTRUCTIONS: To coccyx [id number] 1 PACKET packet 1 packet PO BIDCM 0RF levofloxacin 500 MG tablet 500 mg PO DAILY@0600 Qty: 5 0RF Primary Care Provider: Brant Howard Chi Referrals: Brant Howard Chi, MD [Primary Care Provider] - 1-2 Days if not improving Disposition Disposition: Home, Self Care
[2022-11-24 09:34] LABS: Absolute Lymphocyte Count 1.98 X10^3/uL (0.83-4.51); Absolute Neutrophil Count 9.2 X10^3/uL (2.0-7.7); Basophil# 0.08 X10^3/uL; Basophil% 0.6 % (0-1); Eosinophil# 0.23 X10^3/uL; Eosinophils% 1.9 % (0-5); Hemoglobin 15.1 g/dL (12.0-15.0); Lymphocyte # 1.98 X10^3/ul (0.83-4.51); Lymphocyte % 15.9 % (19-41); Mean Corp Hgb Conc 32.1 g/dL (32-36); Mean Corpuscular Hgb 30.1 pg (27.0-32.0); Mean Corpuscular Volume 93.8 fL (81-99); Mean Platelet Vol. 9.3 fl (6.2-12.0); Monocyte# 0.82 X10^3/uL; Monocyte% 6.6 % (0-10); NRBC Flagged by Analyzer 0 % (0-5); Neutrophil # 9.16 X10^3/uL (2.7-7.7); Neutrophil % 73.7 % (47-70); Platelet Count 334 K/mm3 (150-450); RBC Distribution Width CV 13.3 % (11.6-14.6); Red Blood Count 5.01 M/mm3 (4.2-5.4); White Blood Count 12.4 K/mm3 (4.4-11.0)
[2022-11-24] MEDS: Ondansetron 4 MG/2 ML Vial IV (09:38)
[2022-11-24] MEDS: Morphine 2 MG/ML Syringe IV (09:39)
[2022-11-24 09:52] LABS: AST(SGOT) 27 U/L (15-37); Alanine Aminotransfer ALT/SGPT 32 U/L (13-56); Albumin, Serum 3.8 g/dL (3.2-5.0); Alkaline Phosphatase 100 U/L (45-117); Anion Gap 12 (5-15); BUN 14 mg/dL (7-18); BUN/Creat Ratio 21.4 RATIO (10-20); Chloride 101 mmol/L (98-107); Creatinine, Serum 0.65 mg/dL (0.55-1.02); EST Glomerular Filtration Rate 94 mL/min (>60); Est Glom Filt Rate - Afr Amer 114 mL/min (>60); Estimated Creatinine Clearance 44.41 ml/min; Globulin 3.8 g/dL (2.2-4.2); Glucose 100 mg/dL (74-106); Potassium 4.6 mmol/L (3.5-5.1); Protein, Total 7.6 g/dL (6.4-8.2); Sodium Level 136 mmol/L (136-145); Troponin-I HS 8 pg/mL (3.0-54.0)
--- NOTE | 2022-11-24 09:58 | RAD_ITS ---
STUDY: X-RAY CHEST REASON FOR EXAM: Female, 72 years old. weakness TECHNIQUE: PA and lateral views of the chest. COMPARISON: 06/23/2020 FINDINGS: The lungs are clear and expanded. There is no demonstrated pleural abnormality. Normal size heart. Normal mediastinum and miguel angel. Normal visualized pulmonary arteries. Normal visualized aortic arch and descending thoracic aorta. Normal visualized thoracic spine. Normal visualized ribs, clavicles, and shoulders. There is no demonstrated abnormality of the visualized soft tissue structures of the upper abdomen. RAD/Chest PA and Lateral IMPRESSION: Normal x-ray examination of the chest. Electronically Signed: Reynaldo Gill MD at 10:28 EDT ,
--- NOTE | 2022-11-24 12:24 | ED.RN ---
PER DR SAMUELS, NO NEED TO STRAIGHT CATH AT THIS TIME.
--- NOTE | 2022-11-24 14:50 | ED.RN ---
SPOKE WITH JACK AT [facility]. 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 PT AMBULATED SUCCESSFULLY IN ER WITHOUT ASSISTANCE.
[2022-11-24] MEDS: Morphine 4 MG/ML Syringe IV (17:13)
[2022-11-24] MEDS: 0.9% Normal Saline 1,000 ML 999 ML IV (18:00)
[2022-11-24 18:27] LABS: Mucous, Urine 0 SEEN /hpf (<or=2+); Red Blood Cells-Urine 0 SEEN /hpf (0-5); Squamous Epithelial Cells - UA 0 SEEN /hpf (5-10)
[2022-11-24 18:33] LABS: Color, Urine Yellow (Yellow); Glucose, Dipstick Normal (Normal); Ketone-Dipstick 5 mg/dl (Negative); Leukocyte Esterase-Dipstick Negative /ul (Negative); Nitrite-Dipstick Negative (Negative); Occult Blood-Urine Negative /ul (Negative); Protein-Dipstick Negative (Negative); Specific Gravity, Urine 1.015 (1.002-1.030); Urine Bilirubin Dipstick Negative (Negative); Urine Clarity Clear (Clear); Urine Urobilinogen Normal (Normal)
[2022-11-24 18:45] LABS: Bacteria RARE /hpf (None Seen); White Blood Cells 0-5 SEEN /hpf (0-5)
[2022-11-24] MEDS: MethylPREDNISolone 125 MG/2 ML Vial IV (19:03)
== END 2022-11-24 20:56 | disposition home or self-care (01) ==
PROVIDERS: Emergency Provider Emergency Medicine; PCP Family Medicine Geriatric Medicine; Visit Provider Emergency Medicine
DX: S00.83XA Contusion of other part of head, initial encounter (principal); M06.9 Rheumatoid arthritis, unspecified; F10.229 Alcohol dependence with intoxication, unspecified; Y90.7 Blood alcohol level of 200-239 mg/100 ml; W19.XXXA Unspecified fall, initial encounter; R07.9 Chest pain, unspecified; F17.210 Nicotine dependence, cigarettes, uncomplicated; Z96.642 Presence of left artificial hip joint
CPT/HCPCS: 70450; 71046; 72170; 80053; 81001; 82077; 84484; 85025; 93005; 96361; 96374; 96375; 96376; 99285; A4216; J2405

== ENCOUNTER 2022-11-26 23:26 | Emergency (ER) | payer SELFPAY ==
[2022-11-26 23:27] VITALS: BP 156/89; PULSE 74; RESP 16; TEMP 36.6; O2SAT 99; BMI 20.9
[2022-11-27 00:09] VITALS: O2SAT 98
--- NOTE | 2022-11-27 00:09 | RAD_ITS ---
EXAM: XR Chest 1 View INDICATION: Female, 72 years old. Chest pain TECHNIQUE: Single AP view COMPARISON: 11/24/2022 FINDINGS: DEVICES: None LUNGS: No confluent air space opacity. No concerning pulmonary nodule. No pleural effusion or pneumothorax. MEDIASTINUM: Cardiac and mediastinal silhouettes are within normal limits. No central pulmonary vascular congestion. Calcification of the aortic arch. . SKELETAL STRUCTURES: No acute skeletal abnormality. UPPER ABDOMEN: Unremarkable RAD/Chest 1 View (Portable) IMPRESSION: No acute cardiopulmonary disease Electronically Signed: Efra Shaver MD at 1:24 EDT ,
[2022-11-27] MEDS: predniSONE 20 MG Tablet 40 MG PO (00:33)
[2022-11-27] MEDS: Aspirin 81 MG TAB.CHEW 324 MG PO (00:34)
[2022-11-27 00:37] LABS: Absolute Lymphocyte Count 2.23 X10^3/uL (0.83-4.51); Absolute Neutrophil Count 6.3 X10^3/uL (2.0-7.7); Basophil# 0.02 X10^3/uL; Basophil% 0.2 % (0-1); Eosinophil# 0.07 X10^3/uL; Eosinophils% 0.8 % (0-5); Hematocrit 36.1 % (37-47); Hemoglobin 12.1 g/dL (12.0-15.0); Lymphocyte # 2.23 X10^3/ul (0.83-4.51); Lymphocyte % 24.2 % (19-41); Mean Corp Hgb Conc 33.5 g/dL (32-36); Mean Corpuscular Hgb 30.1 pg (27.0-32.0); Mean Corpuscular Volume 89.8 fL (81-99); Monocyte# 0.59 X10^3/uL; Monocyte% 6.4 % (0-10); NRBC Flagged by Analyzer 0 % (0-5); Neutrophil # 6.27 X10^3/uL (2.7-7.7); Neutrophil % 67.9 % (47-70); Platelet Count 222 K/mm3 (150-450); RBC Distribution Width CV 13.4 % (11.6-14.6); RBC Distribution Width SD 44.3 fl (35.1-43.9); Red Blood Count 4.02 M/mm3 (4.2-5.4); White Blood Count 9.2 K/mm3 (4.4-11.0)
[2022-11-27 00:57] LABS: Anion Gap 7 (5-15); BUN 18 mg/dL (7-18); BUN/Creat Ratio 28.9 RATIO (10-20); Calcium,Total 8.6 mg/dL (8.5-10.1); Chloride 102 mmol/L (98-107); Creatinine, Serum 0.62 mg/dL (0.55-1.02); EST Glomerular Filtration Rate 99 mL/min (>60); Est Glom Filt Rate - Afr Amer 120 mL/min (>60); Estimated Creatinine Clearance 47.37 ml/min; Glucose 110 mg/dL (74-106); Potassium 3.9 mmol/L (3.5-5.1); Sodium Level 136 mmol/L (136-145); Troponin-I HS 10 pg/mL (3.0-54.0)
[2022-11-27 01:33] VITALS: BP 146/80; PULSE 63; RESP 19; O2SAT 98
--- NOTE | 2022-11-27 01:56 | EDS_ITS ---
HPI History of Present Illness Chief Complaint: Other, Pain/Inj Informant: patient Onset/Context/Timing Onset: Today Context: Gradual Onset Timing: Continuous Quality: Pressure Location: Chest Worsened by: Nothing Relieved by: Nothing Narrative Narrative: Patient presents with shortness of breath and chest pressure that began today. Patient states it has been constant since today. Patient states it came on gradually. Patient describes it as a pressure sensation. Patient states it is diffuse across her entire chest. Patient states nothing makes it worse and nothing makes it better. Patient states she was recently diagnosed with psoriatic arthritis and psoriasis. Patient states she was given a dose of prednisone and was ordered a prescription for prednisone. Patient states she has been unable to get her prescription filled for the prednisone. Patient s tates she feels like she needs to be started on prednisone. [facility] Medical History (Updated 11/27/22 @ 02:[address] Colton Barraza, ) Autoimmune disease Home Medications ceftriaxone 2 gram solution for injection 2 gm IV Q24 #7 vials 06/30/20 [Rx Last Taken Unknown] metronidazole 500 mg tablet 500 mg PO TID #21 tabs 06/30/20 [Rx Last Taken Unknown] vancomycin 1 gram/200 mL in dextrose 5 % intravenous piggyback 1,000 mg IV Q12H ##14 06/30/20 [Rx Last Taken Unknown] acetaminophen 500 mg tablet 1,000 mg PO Q8 07/01/20 [Rx Last Taken Unknown] arginine 7 gram-glutam 7 gram-CaHMB 1.5 mchs-rdofy-vs-min oral pwd pkt 1 packet PO BIDCM 07/01/20 [Rx Last Taken Unknown] dicyclomine 10 mg capsule 20 mg PO Q6H PRN PRN abdominal discomfort 07/01/20 [Rx Last Taken Unknown] enoxaparin 40 mg/0.4 mL subcutaneous syringe 40 mg (0.4 mL) subcut DAILY@0600 07/01/20 [Rx Last Taken Unknown] folic acid 1 mg tablet 1 mg PO DAILY@0800 07/01/20 [Rx Last Taken Unknown] menthol 0.44 %-zinc oxide 20.6 % topical ointment 1 applic topical TID 07/01/20 [Rx Last Taken Unknown] metoprolol tartrate 25 mg tablet 25 mg PO BID 07/01/20 [Rx Last Taken Unknown] nutrition tx glu intol,lac-free,soy-fiber 0.06 gram-1.2 kcal/mL liquid 120 ml PO 4X/DAY 07/01/20 [Rx Last Taken Unknown] sennosides 8.6 mg-docusate sodium 50 mg tablet 2 tab PO BID PRN PRN Constipation 07/01/20 [Rx Last Taken Unknown] thiamine HCl (vitamin B1) 100 mg tablet 100 mg PO DAILYCM 07/01/20 [Rx Last Taken Unknown] trazodone 100 mg tablet 100 mg PO QHS PRN Insomnia 07/01/20 [Rx Last Taken Unknown] levofloxacin 500 mg tablet 500 mg PO DAILY@0600 #5 tabs 07/07/20 [Rx Last Taken Unknown] prednisone 20 mg tablet 40 mg PO DAILY #10 TABLETS 11/24/22 [Rx Last Taken Unknown] prednisone 20 mg tablet 40 mg PO DAILY #8 TABLETS 11/27/22 [Rx Last Taken Unknown] Allergy/AdvReac Type Severity Reaction Status Date / Time nickel [Nickel] Allergy Rash/autoimmune Verified 11/26/22 23:32 reactions prochlorperazine edisylate AdvReac disoriente Verified 11/26/22 23:32 [From Compazine] d prochlorperazine maleate AdvReac DISORIENTED Verified 11/26/22 23:32 [From Compazine] CADMIUM Allergy Rash Uncoded 11/26/22 23:32 Surgical History (Updated 11/27/22 @ 01:[address] Colton Barraza DO) History of total left hip replacement Social History Smoking Status: Current some day smoker tobacco type: cigarettes ROS ROS ED Constitutional Constitutional ED: Denies chills or fever(s) Eyes Eyes: Reports change in vision left (1 year ago); Denies blurry vision ENT ENT ED: Denies rhinorrhea or sore throat Cardiovascular Cardiovascular: Reports chest pain; Denies palpitations Respiratory/Chest Respiratory/Chest: Reports dyspnea; Denies cough Gastrointestinal Gastrointestinal: Denies nausea or vomiting Genitourinary Genitourinary ED: Denies dysuria or hematuria Musculoskeletal Musculoskeletal: Reports back pain and neck pain Integumentary Reports rash; Denies abscess Neurologic Neurologic: Denies headache(s) or weakness Allergic/Immunologic Allergic/Immunologic ED: Denies mouth swelling or urticaria EXAM Physical Exam Const Vital Signs: 11/26/22 23:27 11/27/22 00:09 11/27/22 00:41 Temperature 97.9 F Temperature Source Temporal Pulse Rate 74 Respiratory Rate 16 Respiratory Effort Non-Labored Respiratory Pattern Normal Blood Pressure 156/89 H Blood Pressure Mean 111 Pulse Ox 99 98 Oxygen Delivery Method Room Air Room Air 11/27/22 01:33 11/27/22 02:20 Temperature Temperature Source Pulse Rate 63 72 Respiratory Rate 19 H 15 Respiratory Effort Respiratory Pattern Blood Pressure 146/80 H 136/71 H Blood Pressure Mean 102 Pulse Ox 98 97 Oxygen Delivery Method Room Air Positive well nourished and well developed General Appearance ED: well developed and NAD HEENT Reports moist mucous membranes Neck supple and no JVD Chest Wall Chest Narrative: There is mild tenderness with palpation along the chest wall. There is no bony crepitance or step-off. There is no subcutaneous emphysema noted. Resp normal respiratory effort and clear to auscultation bilaterally Cardio regular rate, regular rhythm and no murmurs GI normal to inspection, nondistended, normoactive bowel sounds and non-tender Palpation: soft Extremity normal to inspection General Extremety ED: Negative for edema or tenderness General Extremity: Negative for edema Neuro oriented x3, CN's II-XII intact bilaterally and no sensory deficits noted Sensorium / Orientation: alert Motor Exam: strength 5/5 throughout Psych mental status grossly normal MDM MDM MDM Narrative Medical decision making narrative: Differential diagnosis includes cardiac dysrhythmia, cardiac ischemia, pneumonia, pneumothorax, electrolyte abnormality, musculoskeletal pain, rheumatoid arthritis flare, psoriatic arthritis flare, and anxiety. CBC will be obtained to assess for leukocytosis and anemia. Basic metabolic profile will be obtained to assess for electrolyte abnormality and renal function. High- sensitivity troponin will be obtained to assess for cardiac ischemia. EKG will be obtained to assess for cardiac dysrhythmia and cardiac ischemia. Chest x-ray will be obtained to assess for pneumonia and pneumothorax. Lab Data Attestation: I reviewed the patient's lab results. Lab results narrative: CBC was reviewed and was within normal limits. Basic metabolic profile was reviewed and was within normal limits. High-sensitivity troponin was reviewed and was within normal limits. Labs: Laboratory Results - last 24 hr 11/27/22 11/27/22 00:30 00:30 WBC 9.2 RBC 4.02 L Hgb 12.1 Hct 36.1 L MCV 89.8 MCH 30.1 MCHC 33.5 RDW Std Deviation 44.3 H RDW Coeff of Jonathan 13.4 Plt Count 222 MPV 9.0 Immature Gran % (Auto) 0.500 Neut % (Auto) 67.9 Lymph % (Auto) 24.2 [place] % (Auto) 6.4 Eos % (Auto) 0.8 Baso % (Auto) 0.2 Absolute Neuts (auto) 6.3 Absolute Lymphs (auto) 2.23 Nucleated RBC % 0 Sodium 136 Potassium 3.9 Chloride 102 Carbon Dioxide 27.0 Anion Gap 7 BUN 18 Creatinine 0.62 Estim Creat Clear Calc 47.37 Est GFR (MDRD) Af Amer 120 Est GFR (MDRD) Non-Af 99 BUN/Creatinine Ratio 28.9 H Glucose 110 H Calcium 8.6 Troponin I High Sens 10 Radiography Chest X-Ray - ED: 1 View, Read by ED Physician, Read by Radiologist and No Acute Disease Diagnostic Testing: Clinical Impression(s) from Imaging Studies Chest X-Ray 11/27/22 00:09 IMPRESSION: No acute cardiopulmonary disease Electronically Signed: Efra Shaver MD at 1:24 EDT , EKG Initial EKG: Attestation: I personally reviewed and interpreted this EKG as follows: Interpretation: Sinus Rhythm (73 with frequent PVCs and ventricular bigeminy) and No Acute Injury Pattern Comments: EKG was obtained. On my independent interpretation, it showed a normal sinus rhythm with a rate of 73 with frequent PVCs and ventricular bigeminy. IA interval, QRS interval, and QTc intervals were all normal. [place] was normal. There are no acute ST or T wave changes. Prior EKG tracings: available for review Prior: Unchanged (Other than the frequent PVCs, this is unchanged compared to previous EKG dated 11/24/2022.) Treatment and Re-Evaluation :: Patient was given aspirin here. Patient was given dose of prednisone here. Patient was advised of her findings. Patient has a HEART score of 3. Patient was advised that this is low risk for acute cardiac event. Patient was given a prescription for a short course of prednisone. Patient was instructed to follow-up with her primary care physician in 5 to 7 days. Patient was instructed return if worse in any way. Patient understood and was agreeable with the plan. All questions were answered. Discharge Plan Triage Chief Complaint: Other, Pain/Inj ED Provider: Colton Barraza Dx/Rx/DC Orders Clinical Impression: Chest pain, Psoriasis Instructions: ED Chest Pain, Uncertain Cause Prescriptions: New prednisone 20 mg tablet 40 mg PO DAILY Qty: 8 0RF No Action metronidazole 500 MG tablet 500 mg PO TID Qty: 21 0RF ceftriaxone 2 GM recon soln 2 gm IV Q24 Qty: 7 0RF vancomycin in dextrose 5 % 1,000 MG/200 ML piggyback 1,000 mg IV Q12H Qty: 14 0RF Rx Instructions: stop date 07/07/20 dx: R hip infection weekly bmp, cbc, and vanc trough, fax to [phone] sennosides-docusate sodium 1 TABLET tablet 2 tab PO BID PRN PRN (Reason: Constipation) 0RF thiamine HCl (vitamin B1) 100 MG tablet 100 mg PO DAILYCM 0RF acetaminophen 500 MG tablet 1,000 mg PO Q8 0RF trazodone 100 MG tablet 100 mg PO QHS PRN (Reason: Insomnia) 0RF folic acid 1 MG tablet 1 mg PO DAILY@0800 0RF dicyclomine 10 MG capsule 20 mg PO Q6H PRN PRN (Reason: abdominal discomfort) 0RF enoxaparin 40 MG/0.4 ML syringe 40 mg SC DAILY@0600 0RF metoprolol tartrate 25 MG tablet 25 mg PO BID 0RF nut.tx.gluc intol,lf,soy-fiber 120 ML liquid 120 ml PO 4X/DAY 0RF menthol-zinc oxide 1 APPLIC ointment 1 applic TOPICAL TID 0RF Protocol: *Topical Application Instructions APPLICATION INSTRUCTIONS: To coccyx [id number] 1 PACKET packet 1 packet PO BIDCM 0RF levofloxacin 500 MG tablet 500 mg PO DAILY@0600 Qty: 5 0RF prednisone 20 mg tablet 40 mg PO DAILY Qty: 10 0RF Primary Care Provider: Terri Saldaña METHODS SPECIALIST ENGINEER Referrals: Terri Saldaña METHODS SPECIALIST ENGINEER, METHODS SPECIALIST ENGINEER-C [Primary Care Provider] - 3-5 Days Disposition Disposition: Home, Self Care
[2022-11-27 02:20] VITALS: BP 136/71; PULSE 72; RESP 15; O2SAT 97
[2022-11-27] MEDS: Acetaminophen 325 MG Tablet 650 MG PO (07:25)
--- NOTE | 2022-11-27 07:32 | ED.RN ---
[facility] will be here at [address] home
== END 2022-11-27 08:21 | disposition home or self-care (01) ==
PROVIDERS: Emergency Provider Emergency Medicine; PCP Nurse Practitioner Adult Health; Visit Provider Emergency Medicine
DX: R07.89 Other chest pain (principal); L40.50 Arthropathic psoriasis, unspecified; F17.210 Nicotine dependence, cigarettes, uncomplicated; Z79.52 Long term (current) use of systemic steroids
CPT/HCPCS: 71045; 80048; 84484; 85025; 93005; 99285; A4216

== ENCOUNTER 2022-12-14 14:24 | Emergency (ER) | payer MEDICAID, SELFPAY ==
[2022-12-14 14:26] VITALS: BP 99/47; PULSE 89; RESP 18; TEMP 36; BMI 20.5
--- NOTE | 2022-12-14 14:26 | EKG12_ITS ---
Test Reason : FALL Blood Pressure : / mmHG Vent. Rate : 089 BPM Atrial Rate : 089 BPM P-R Int : 180 ms QRS Dur : 078 ms QT Int : 418 ms P-R-T Axes : 071 019 040 degrees QTc Int : 508 ms Normal sinus rhythm Nonspecific ST and T wave abnormality Abnormal ECG Confirmed by MAKEDA LORENZ, ARLETH ([id number]), clinical editor LACIE DOUGLASS ([id number]) on 12/16/2022 11:08:52 A M Referred By: Confirmed By:ESTEFANY ASHFORD MD
[2022-12-14 14:33] VITALS: BP 108/50; PULSE 87; RESP 17; O2SAT 98
--- NOTE | 2022-12-14 14:41 | EX.ED.DYSGE1 ---
HPI History of Present Illness Chief Complaint: Hypoglycemia Narrative Narrative: Patient presents after a hypoglycemic episode. Patient talks to me. She states she feels terrible today. When I ask her why is because she was forced to come in here. She does admit to nausea but states she has been nauseated my whole life. She states she was not laying on the ground. She was laying on the floor. She was lying on the floor of her apartment because she wanted to. She did not fall or trip. I explained that she had a very low blood sugar and that is why they brought her in here. She denies any acute complaint. She is very terse somewhat aggressive verbally slightly abusive. But she is ANO x3. She knows where she is what happens and her meds. She states she has been here a lot before. She denies any injuries. PFSH PFSH Medical History Autoimmune disease Diabetes ETOH abuse Home Medications ceftriaxone 2 gram solution for injection 2 gm IV Q24 #7 vials 06/30/20 [Rx Last Taken Unknown] metronidazole 500 mg tablet 500 mg PO TID #21 tabs 06/30/20 [Rx Last Taken Unknown] vancomycin 1 gram/200 mL in dextrose 5 % intravenous piggyback 1,000 mg IV Q12H ##14 06/30/20 [Rx Last Taken Unknown] acetaminophen 500 mg tablet 1,000 mg (2 x 500 mg) PO Q8 07/01/20 [Rx Last Taken Unknown] arginine 7 gram-glutam 7 gram-CaHMB 1.5 tmll-kqbsb-dp-min oral pwd pkt 1 packet PO BIDCM 07/01/20 [Rx Last Taken Unknown] dicyclomine 10 mg capsule 20 mg (2 x 10 mg) PO Q6H PRN PRN abdominal discomfort 07/01/20 [Rx Last Taken Unknown] enoxaparin 40 mg/0.4 mL subcutaneous syringe 40 mg (0.4 mL) subcut DAILY@0600 07/01/20 [Rx Last Taken Unknown] folic acid 1 mg tablet 1 mg PO DAILY@0800 07/01/20 [Rx Last Taken Unknown] menthol 0.44 %-zinc oxide 20.6 % topical ointment 1 applic topical TID 07/01/20 [Rx Last Taken Unknown] metoprolol tartrate 25 mg tablet 25 mg PO BID 07/01/20 [Rx Last Taken Unknown] nutrition tx glu intol,lac-free,soy-fiber 0.06 gram-1.2 kcal/mL liquid 120 ml PO 4X/DAY 07/01/20 [Rx Last Taken Unknown] sennosides 8.6 mg-docusate sodium 50 mg tablet 2 tab PO BID PRN PRN Constipation 07/01/20 [Rx Last Taken Unknown] thiamine HCl (vitamin B1) 100 mg tablet 100 mg PO DAILYCM 07/01/20 [Rx Last Taken Unknown] trazodone 100 mg tablet 100 mg PO QHS PRN Insomnia 07/01/20 [Rx Last Taken Unknown] levofloxacin 500 mg tablet 500 mg PO DAILY@0600 #5 tabs 07/07/20 [Rx Last Taken Unknown] prednisone 20 mg tablet 40 mg (2 x 20 mg) PO DAILY #10 TABLETS 11/24/22 [Rx Last Taken Unknown] prednisone 20 mg tablet 40 mg (2 x 20 mg) PO DAILY #8 TABLETS 11/27/22 [Rx Last Taken Unknown] atorvastatin 20 mg tablet 20 mg PO DAILY 12/14/22 [History Last Taken Unknown] ferrous sulfate 325 mg (65 mg iron) tablet (FeroSul) 325 mg PO DAILY 12/14/22 [History Last Taken Unknown] loratadine 10 mg capsule 10 mg PO DAILY 12/14/22 [History Last Taken Unknown] meloxicam 15 mg tablet 15 mg PO DAILY 12/14/22 [History Last Taken Unknown] metformin 1,000 mg tablet 1,000 mg PO DAILY 12/14/22 [History Last Taken Unknown] Allergy/AdvReac Type Severity Reaction Status Date / Time nickel [Nickel] Allergy Rash/autoimmune Verified 11/26/22 23:32 reactions Environmental Allergies: AdvReac Rash Verified 12/03/22 13:11 Uncoded prochlorperazine edisylate AdvReac disoriente Verified 11/26/22 23:32 [From Compazine] d prochlorperazine maleate AdvReac DISORIENTED Verified 11/26/22 23:32 [From Compazine] Surgical History History of total left hip replacement Social History Smoking Status: Current every day smoker tobacco type: cigarettes ROS ROS ED ROS Narrative A complete review of systems was performed and is negative except as documented in the history of present illness. Some specific details below. Constitutional: No recent fevers or chills. She states she feels bad but that is because she was forced to come in here. EYE: Denies visual changes. ENT: No difficulty swallowing. Denies facial injury. CV: No chest pain, pressure or aching. No palpitations or irregular beats. Patient has not been presyncopal or syncopal. He states she chose to lay on the ground. Respiratory: No trouble breathing. No cough. No wheezing. No sputum production. No pain with breathing. GI: No abdominal pain. She states she has chronic nausea but she has no vomiting or diarrhea. No blood in stool. : No frequency dysuria or hematuria. Musculoskeletal: She denies recent trauma. Skin: No rash. Nondiaphoretic. Neuro: No focal weakness or numbness. Endocrine: No polyuria or polydipsia. EXAM Physical Exam Narrative Exam Narrative: Patient is a wake alert laying comfortably on the bed. She looks up when I walk in the room. HEENT does not show any sign of trauma. Mucous membranes are still moist. I see no trauma bruising or tenderness. Neck shows no tenderness Lungs are clear bilaterally. Saturations are 98% on room air showing no hypoxia. Breathing is easy and unlabored. Heart is regular. She does get a rate of about 85-90. I hear no murmur. She has intact normal distal pulses. Abdomen is soft and nontender No posterior spinal tenderness Extremities show a little bit of bruising of 1 toe but no deformity. I see an occasional small contusion but they look older. There is no deformities pain with motion or palpation. Neurologically she is awake. She is alert and oriented x3. But she is very angry upset. I explained that we did not force her to come in but I am trying to help her. After that she refuses to talk to me anymore. I explained that I am still going to do a medical work-up at this time. I am not seeing indication for imaging at this time. Const Vital Signs: 12/14/22 14:26 12/14/22 14:28 12/14/22 14:33 Temperature 96.8 F L Temperature Source Temporal Pulse Rate 89 87 Respiratory Rate 18 17 Respiratory Effort Non-Labored Respiratory Pattern Normal Blood Pressure 99/47 L 108/50 L Blood Pressure Mean 64 69 Pulse Ox 98 Oxygen Delivery Method Room Air 12/14/22 16:37 12/14/22 17:06 12/14/22 18:41 Temperature Temperature Source Pulse Rate 84 75 74 Respiratory Rate 14 14 16 Respiratory Effort Respiratory Pattern Blood Pressure 98/51 L 108/56 L 102/59 L Blood Pressure Mean 66 73 73 Pulse Ox 97 97 98 Oxygen Delivery Method Room Air Room Air 12/14/22 19:51 Temperature Temperature Source Pulse Rate 74 Respiratory Rate 16 Respiratory Effort Respiratory Pattern Blood Pressure 101/68 Blood Pressure Mean Pulse Ox Oxygen Delivery Method MDM MDM MDM Narrative Medical decision making narrative: Patient has been awake alert here. She rests. There have been no issues. Vitals been stable. CBC shows mild elevation of white count which is nonspecific. There is no fever. She denies symptoms of infection. Patient's a electrolytes are normal other than minimally low bicarb. Glucose is slightly up at 179 at this time. Liver function test are normal. Alcohol level was 212. I think her hypoglycemia may be due to not eating. She evidently has a history of chronic alcohol use which decreases glycogen stores and the ability to react to low sugars. We will recheck her sugar here. But at this time she is awake alert appropriate and there is no indication for admission. She has been consistent with both me and the nursing staff that she chose to lay down on the ground and she did not hurt herself. She is also on metformin which is not the most aggressive med it pushing ones blood sugar low. I think a lot of her issues may be related to poor glycogen stores. We were able to contact the facility where she lives. She evidently was started on Lantus recently. We do not know the dose and note neither does she. I think she should hold this until we have further information. I would rather have her run high sugars in the low. She has been rechecked here where she runs 60 but she is awake alert and appropriate and she wants to go. She has been up to the bathroom. She is stable. We did give her food. Lab Data Attestation: I reviewed the patient's lab results. Labs: Laboratory Results - last 24 hr 12/14/22 12/14/22 12/14/22 14:50 18:45 19:27 WBC 15.5 H RBC 4.12 L Hgb 12.6 Hct 40.7 MCV 98.8 MCH 30.6 MCHC 31.0 L RDW Std Deviation 51.9 H RDW Coeff of Jonathan 14.3 Plt Count 274 MPV 8.7 Immature Gran % (Auto) 1.400 H Neut % (Auto) 83.9 H Lymph % (Auto) 10.0 L [place] % (Auto) 3.7 Eos % (Auto) 0.5 Baso % (Auto) 0.5 Absolute Neuts (auto) 13.0 H Absolute Lymphs (auto) 1.55 Nucleated RBC % 0 Sodium 137 Potassium 3.4 L Chloride 105 Carbon Dioxide 17.0 L Anion Gap 15 BUN 12 Creatinine 0.58 Estim Creat Clear Calc 46.36 Est GFR (MDRD) Af Amer 130 Est GFR (MDRD) Non-Af 107 BUN/Creatinine Ratio 20.6 H Glucose 179 H Calcium 8.1 L Total Bilirubin 0.10 L AST 26 ALT 29 Alkaline Phosphatase 88 Total Protein 6.5 Albumin 3.4 Globulin 3.1 Albumin/Globulin Ratio 1.1 Ethyl Alcohol 212.0 POC Glucose 57 L 67 L EKG Initial EKG: Comments: My independent interpretation the patient's EKG shows a normal sinus rhythm rate of 89. There is no ectopy. No acute ST elevation or depression. GA interval, QRS duration are normal. But QTc is a bit long at 508 ms. Discharge Plan Triage Chief Complaint: Hypoglycemia Other Complaint: ETOH Intox ED Provider: Michael Levi Dx/Rx/DC Orders Clinical Impression: Alcohol intoxication, Hypoglycemia Instructions: ED Hypoglycemia Oral Diabetic ... Prescriptions: No Action metronidazole 500 MG tablet 500 mg PO TID Qty: 21 0RF ceftriaxone 2 GM recon soln 2 gm IV Q24 Qty: 7 0RF vancomycin in dextrose 5 % 1,000 MG/200 ML piggyback 1,000 mg IV Q12H Qty: 14 0RF Rx Instructions: stop date 07/07/20 dx: R hip infection weekly bmp, cbc, and vanc trough, fax to [phone] sennosides-docusate sodium 1 TABLET tablet 2 tab PO BID PRN PRN (Reason: Constipation) 0RF thiamine HCl (vitamin B1) 100 MG tablet 100 mg PO DAILYCM 0RF acetaminophen 500 MG tablet 1,000 mg PO Q8 0RF trazodone 100 MG tablet 100 mg PO QHS PRN (Reason: Insomnia) 0RF folic acid 1 MG tablet 1 mg PO DAILY@0800 0RF dicyclomine 10 MG capsule 20 mg PO Q6H PRN PRN (Reason: abdominal discomfort) 0RF enoxaparin 40 MG/0.4 ML syringe 40 mg SC DAILY@0600 0RF metoprolol tartrate 25 MG tablet 25 mg PO BID 0RF nut.tx.gluc intol,lf,soy-fiber 120 ML liquid 120 ml PO 4X/DAY 0RF menthol-zinc oxide 1 APPLIC ointment 1 applic TOPICAL TID 0RF Protocol: *Topical Application Instructions APPLICATION INSTRUCTIONS: To coccyx [id number] 1 PACKET packet 1 packet PO BIDCM 0RF levofloxacin 500 MG tablet 500 mg PO DAILY@0600 Qty: 5 0RF prednisone 20 mg tablet 40 mg PO DAILY Qty: 10 0RF prednisone 20 mg tablet 40 mg PO DAILY Qty: 8 0RF atorvastatin 20 mg tablet 20 mg PO DAILY ferrous sulfate [FeroSul] 325 mg (65 mg iron) tablet 325 mg PO DAILY loratadine 10 mg capsule 10 mg PO DAILY meloxicam 15 mg tablet 15 mg PO DAILY metformin 1,000 mg tablet 1,000 mg PO DAILY Primary Care Provider: Terri Saldaña C PROGRAMMER Referrals: Terri Saldaña C PROGRAMMER, C PROGRAMMER-C [Primary Care Provider] - 3-5 Days Activity Restrictions/Additional Instructions: Hold your Lantus insulin. Check sugars frequently and eat regularly. Contact your physician about further dosing. Disposition Disposition: Home, Self Care Discharge Date/Time: 12/14/22 19:53
[2022-12-14 14:58] LABS: Absolute Lymphocyte Count 1.55 X10^3/uL (0.83-4.51); Basophil# 0.08 X10^3/uL; Basophil% 0.5 % (0-1); Eosinophil# 0.08 X10^3/uL; Eosinophils% 0.5 % (0-5); Hematocrit 40.7 % (37-47); Hemoglobin 12.6 g/dL (12.0-15.0); Lymphocyte # 1.55 X10^3/ul (0.83-4.51); Mean Corpuscular Hgb 30.6 pg (27.0-32.0); Mean Corpuscular Volume 98.8 fL (81-99); Mean Platelet Vol. 8.7 fl (6.2-12.0); Monocyte# 0.58 X10^3/uL; Monocyte% 3.7 % (0-10); NRBC Flagged by Analyzer 0 % (0-5); Neutrophil # 13.01 X10^3/uL (2.7-7.7); Neutrophil % 83.9 % (47-70); Platelet Count 274 K/mm3 (150-450); RBC Distribution Width CV 14.3 % (11.6-14.6); RBC Distribution Width SD 51.9 fl (35.1-43.9); Red Blood Count 4.12 M/mm3 (4.2-5.4); White Blood Count 15.5 K/mm3 (4.4-11.0)
[2022-12-14 15:14] LABS: ALB/GLOB Ratio 1.1 RATIO (0.9-2.4); AST(SGOT) 26 U/L (15-37); Alanine Aminotransfer ALT/SGPT 29 U/L (13-56); Albumin, Serum 3.4 g/dL (3.2-5.0); Alkaline Phosphatase 88 U/L (45-117); Anion Gap 15 (5-15); BUN 12 mg/dL (7-18); BUN/Creat Ratio 20.6 RATIO (10-20); Calcium,Total 8.1 mg/dL (8.5-10.1); Chloride 105 mmol/L (98-107); Creatinine, Serum 0.58 mg/dL (0.55-1.02); EST Glomerular Filtration Rate 107 mL/min (>60); Est Glom Filt Rate - Afr Amer 130 mL/min (>60); Estimated Creatinine Clearance 46.36 ml/min; Globulin 3.1 g/dL (2.2-4.2); Glucose 179 mg/dL (74-106); Potassium 3.4 mmol/L (3.5-5.1); Protein, Total 6.5 g/dL (6.4-8.2); Sodium Level 137 mmol/L (136-145)
[2022-12-14 16:37] VITALS: BP 98/51; PULSE 84; RESP 14; O2SAT 97
--- NOTE | 2022-12-14 17:05 | ED.RN ---
SPOKE WITH STAFF AT [facility]. UPDATED THAT PT TO BE DISCHARGED. CHANGE ATTEMPTING TO ARRANGE TRANSPORT.
[2022-12-14 17:06] VITALS: BP 108/56; PULSE 75; RESP 14; O2SAT 97
--- NOTE | 2022-12-14 17:32 | ED.RN ---
ASSISTED WITH GETTING DRESSED. AWAITING RIDE
[2022-12-14 18:41] VITALS: BP 102/59; PULSE 74; RESP 16; O2SAT 98
--- NOTE | 2022-12-14 18:49 | ED.RN ---
DR PRATT AWARE PT BS 59. PT MORE ALERT, AMBULATORY AND ASYMPTOMATIC AT THIS TIME GIVEN MEAL
[2022-12-14 19:46] LABS: Bedside Glucose 57 mg/dL (74-106)
[2022-12-14 19:46] LABS: Bedside Glucose 67 mg/dL (74-106)
[2022-12-14 19:51] VITALS: BP 101/68; PULSE 74; RESP 16
[2022-12-14 21:25] LABS: Bedside Glucose 66 mg/dL (74-106)
== END 2022-12-14 19:53 | disposition home or self-care (01) ==
PROVIDERS: Emergency Provider Emergency Medicine; PCP Nurse Practitioner Adult Health; Visit Provider Emergency Medicine
DX: E11.649 Type 2 diabetes mellitus with hypoglycemia without coma (principal); F10.129 Alcohol abuse with intoxication, unspecified; Y90.7 Blood alcohol level of 200-239 mg/100 ml; F17.210 Nicotine dependence, cigarettes, uncomplicated; Z79.84 Long term (current) use of oral hypoglycemic drugs
CPT/HCPCS: 80053; 80320; 82962; 85025; 93005; 99285; 82077

== ENCOUNTER 2022-12-17 15:34 | Inpatient (IN) | payer MEDICARE, SELFPAY ==
[2022-12-17 15:35] VITALS: BP 138/80; PULSE 116; RESP 17; TEMP 36.2; O2SAT 95; BMI 23.6
--- NOTE | 2022-12-17 16:22 | EDS_ITS ---
HPI History of Present Illness Chief Complaint: Substance Abuse Narrative Narrative: 72-year-old female presenting with her guardian for alcohol detox. He states that she was previously higher level of care snf where she did not have access to alcohol, however he transitioned her to [facility] where she is now getting out of the assisted living and walking to a nearby bar and going to the gas station for alcohol. He states that she has been drinking heavily recently. He does not know exactly if she will withdraw. Patient is vague about how much she drinks but she states she thinks she drank some today. Patient reporting chronic back pain. She states that she has history of autoimmune problems. PFSH PFSH Medical History Bipolar disorder Delusional disorder Diabetes ETOH abuse Fibromyalgia GERD (gastroesophageal reflux disease) HLD (hyperlipidemia) Psoriatic arthritis Tobacco use Home Medications metronidazole 500 mg tablet 500 mg PO TID pcp #21 tabs 06/30/20 [Rx Last Taken Unknown] vancomycin 1 gram/200 mL in dextrose 5 % intravenous piggyback 1,000 mg IV Q12H pcp #14 BAGS 06/30/20 [Rx Last Taken Unknown] acetaminophen 500 mg tablet 1,000 mg (2 x 500 mg) PO Q8 pcp 07/01/20 [Rx Last Taken Unknown] arginine 7 gram-glutam 7 gram-CaHMB 1.5 thaf-jkatw-vv-min oral pwd pkt 1 packet PO BIDCM pcp 07/01/20 [Rx Last Taken Unknown] dicyclomine 10 mg capsule 20 mg (2 x 10 mg) PO Q6H PRN PRN abdominal discomfort 07/01/20 [Rx Last Taken Unknown] enoxaparin 40 mg/0.4 mL subcutaneous syringe 40 mg (0.4 mL) subcut DAILY@0600 pcp 07/01/20 [Rx Last Taken Unknown] folic acid 1 mg tablet 1 mg PO DAILY@0800 see pcp 07/01/20 [Rx Last Taken Unknown] menthol 0.44 %-zinc oxide 20.6 % topical ointment 1 applic topical TID pcp 07/01/20 [Rx Last Taken Unknown] metoprolol tartrate 25 mg tablet 25 mg PO BID see pcp 07/01/20 [Rx Last Taken Unknown] nutrition tx glu intol,lac-free,soy-fiber 0.06 gram-1.2 kcal/mL liquid 120 ml PO 4X/DAY pcp 07/01/20 [Rx Last Taken Unknown] sennosides 8.6 mg-docusate sodium 50 mg tablet 2 tab PO BID PRN PRN Constipation 07/01/20 [Rx Last Taken Unknown] thiamine HCl (vitamin B1) 100 mg tablet 100 mg PO DAILYCM pcp 07/01/20 [Rx Last Taken Unknown] trazodone 100 mg tablet 100 mg PO QHS PRN Insomnia 07/01/20 [Rx Last Taken Unknown] levofloxacin 500 mg tablet 500 mg PO DAILY@0600 pcp #5 tabs 07/07/20 [Rx Last Taken Unknown] prednisone 20 mg tablet 40 mg (2 x 20 mg) PO DAILY pcp #10 TABLETS 11/24/22 [Rx Last Taken Unknown] prednisone 20 mg tablet 40 mg (2 x 20 mg) PO DAILY pcp #8 TABLETS 11/27/22 [Rx Last Taken Unknown] atorvastatin 20 mg tablet 20 mg PO DAILY pcp 12/14/22 [History Last Taken Unknown] ferrous sulfate 325 mg (65 mg iron) tablet (FeroSul) 325 mg PO DAILY see pcp 12/14/22 [History Last Taken Unknown] loratadine 10 mg capsule 10 mg PO DAILY see pcp 12/14/22 [History Last Taken Unknown] meloxicam 15 mg tablet 15 mg PO DAILY see pcp 12/14/22 [History Last Taken Unknown] metformin 1,000 mg tablet 1,000 mg PO DAILY DM 12/14/22 [History Last Taken Unknown] carboxymethylcellulose sodium 0.5 % eye drops in a dropperette (Refresh Plus) 1 drp EACH EYE BID pcp 12/17/22 [History Last Taken Unknown] ceftriaxone 2 gram solution for injection 2 g IV Q24 pcp 12/17/22 [History Last Taken Unknown] cetirizine 10 mg tablet (24Hour Allergy) 10 mg PO QHS PRN pcp 12/17/22 [History Last Taken Unknown] cholecalciferol (vitamin D3) 125 mcg (5,000 unit) tablet (Vitamin D3) 5,000 unit PO QWEEK pcp 12/17/22 [History Last Taken Unknown] cyanocobalamin (vitamin B-12) 1,000 mcg tablet (Vitamin B-12) 1,000 mcg PO DAILY pcp 12/17/22 [History Last Taken Unknown] fluvoxamine 25 mg tablet 25 mg PO BID pcp 12/17/22 [History Last Taken Unknown] melatonin 3 mg tablet 6 mg PO QHS sleep 12/17/22 [History Last Taken Unknown] omeprazole 20 mg capsule,delayed release 20 mg PO DAILY pcp 12/17/22 [History Last Taken Unknown] Allergy/AdvReac Type Severity Reaction Status Date / Time nickel [Nickel] Allergy Rash/autoimmune Verified 11/26/22 23:32 reactions Environmental Allergies: AdvReac Rash Verified 12/03/22 13:11 Uncoded prochlorperazine edisylate AdvReac disoriente Verified 11/26/22 23:32 [From Compazine] d prochlorperazine maleate AdvReac DISORIENTED Verified 11/26/22 23:32 [From Compazine] Surgical History History of total left hip replacement Social History Smoking Status: Current every day smoker tobacco type: cigarettes ROS ROS ED Constitutional Constitutional ED: Denies chills, fever(s) or sweats Eyes Eyes: Denies blurry vision or change in vision ENT ENT ED: Denies ear pain or sore throat Cardiovascular Cardiovascular: Denies chest pain, palpitations or racing heartbeat Respiratory/Chest Respiratory/Chest: Denies cough, dyspnea or sputum Gastrointestinal Gastrointestinal: Denies abdominal pain, constipation, diarrhea, nausea or vomiting Genitourinary Genitourinary ED: Denies dysuria, hematuria or urinary frequency Musculoskeletal Musculoskeletal: Reports back pain; Denies arthralgias, myalgias or neck pain Integumentary Denies abscess, Abrasions or rash Neurologic Neurologic: Denies headache(s), paresthesias or weakness Psychiatric Psychiatric: Denies anxiety, depression, suicidal ideation or suicidal thoughts Endocrine Endocrinology: Denies polydipsia or polyuria EXAM Physical Exam Const Vital Signs: 12/17/22 15:35 Temperature 97.2 F L Temperature Source Temporal Pulse Rate 116 H Respiratory Rate 17 Blood Pressure 138/80 H Blood Pressure Mean 99 Pulse Ox 95 Oxygen Delivery Method Room Air Positive unkempt General Appearance ED: unkempt and NAD; Negative for pallor HEENT Reports dry mucous membranes atraumatic Mouth ED: Yes dry mucous membranes Mouth: dry mucous membranes Eyes PERRL and EOMs intact bilaterally Lymph Lymphatic: no lymphadenopathy noted Resp normal respiratory effort Cardio regular rate and regular rhythm Neuro oriented x3 and CN's II-XII intact bilaterally Sensorium / Orientation: alert Psych Appearance: unkempt Skin General Skin Exam: Negative for jaundice or pallor MDM MDM MDM Narrative Medical decision making narrative: For detox. She is not sure if she would withdrawal or not but she been heavily drinking. She is here with her guardian who is the one wanted detox. Apparently she has been walking away from her independent living place to get her alcohol from a local bar and from the gas station. He wants her admitted for detox and then to look for another facility where she would have so much free range. Screening lab work was obtained and her CBC shows a leukocytosis of 11.6. Hemoglobin medically stable. Platelets are 339. LFTs are within normal limits. Renal function and electrolytes are also normal. EtOH 247. Urine drug screen pending. Discussed with hospitalist for admission. Impression: 1. EtOH abuse 2. Presentation for EtOH detox Lab Data Attestation: I reviewed the patient's lab results. Labs: Laboratory Results - last 24 hr 12/17/22 16:35 WBC 11.6 H RBC 5.06 Hgb 15.4 H Hct 47.7 H MCV 94.3 MCH 30.4 MCHC 32.3 RDW Std Deviation 50.4 H RDW Coeff of Jonathan 14.6 Plt Count 339 MPV 8.9 Immature Gran % (Auto) 0.800 Neut % (Auto) 67.3 Lymph % (Auto) 24.3 Brooks % (Auto) 5.8 Eos % (Auto) 1.1 Baso % (Auto) 0.7 Absolute Neuts (auto) 7.8 H Absolute Lymphs (auto) 2.83 Nucleated RBC % 0 Sodium 140 Potassium 4.0 Chloride 107 Carbon Dioxide 23.0 Anion Gap 10 BUN 6 L Creatinine 0.64 Estim Creat Clear Calc 44.41 Est GFR (MDRD) Af Amer 117 Est GFR (MDRD) Non-Af 96 BUN/Creatinine Ratio 9.4 L Glucose 100 Calcium 9.5 Total Bilirubin 0.20 AST 37 ALT 32 Alkaline Phosphatase 115 Total Protein 8.5 H Albumin 4.5 Globulin 4.0 Albumin/Globulin Ratio 1.1 Lipase 13 Ethyl Alcohol 247.0 Discharge Plan Disposition Disposition: [facility] Discharge Date/Time: 12/17/22 20:32
--- NOTE | 2022-12-17 16:43 | CM.ED ---
Social Work Physician requested SW to speak with patient/guardian. SW introduced self and role to patient's guardian. Patient has a legal guardian appointed, Juan Johnson [phone] local defense attorney. Guardian reports patient has been sneaking out of assisted living at [facility] to drink at a bar or buy alcohol at the gas station. Pt has been hiding alcohol in her apartment and smoking in the apartment. Pt has mental health and medical concerns that are exacerbated by substance abuse. Guardian reports patient has been at [facility] for one month. Prior to assisted living patient was in a more secure facility where she was unable to obtain alcohol. [facility] is reportedly requesting patient to move. Guardian reports a more secure location is needed due to alcohol abuse. Guardian reports a quotation clerk recommended he speak with Divina with [facility]. Guardian discussed situation with Divina. Pt is here to detox from alcohol per guardian. Pt is against detox but guardian is here to provide consent and act in the best interest of patient. Guardian is requesting help with placement. Guardian does report that funds are available for self-pay if insurance is unable to cover SNF or more secure assisted living location. Guardian unsure of patient's current insurance at this time, as an old insurance was listed. Plan: Patient to be admitted for detox and SW to follow for d/c needs. SNF -vs- assisted living and insurance -vs- self-pay. Patsy Breen JOB ANALYSIS MANAGER, UPSCALE SECURITY OFFICER
[2022-12-17 16:53] LABS: Absolute Lymphocyte Count 2.83 X10^3/uL (0.83-4.51); Absolute Neutrophil Count 7.8 X10^3/uL (2.0-7.7); Basophil# 0.08 X10^3/uL; Basophil% 0.7 % (0-1); Eosinophil# 0.13 X10^3/uL; Eosinophils% 1.1 % (0-5); Hematocrit 47.7 % (37-47); Hemoglobin 15.4 g/dL (12.0-15.0); Lymphocyte # 2.83 X10^3/ul (0.83-4.51); Lymphocyte % 24.3 % (19-41); Mean Corp Hgb Conc 32.3 g/dL (32-36); Mean Corpuscular Hgb 30.4 pg (27.0-32.0); Mean Corpuscular Volume 94.3 fL (81-99); Mean Platelet Vol. 8.9 fl (6.2-12.0); Monocyte# 0.68 X10^3/uL; Monocyte% 5.8 % (0-10); NRBC Flagged by Analyzer 0 % (0-5); Neutrophil # 7.83 X10^3/uL (2.7-7.7); Neutrophil % 67.3 % (47-70); Platelet Count 339 K/mm3 (150-450); RBC Distribution Width CV 14.6 % (11.6-14.6); RBC Distribution Width SD 50.4 fl (35.1-43.9); Red Blood Count 5.06 M/mm3 (4.2-5.4); White Blood Count 11.6 K/mm3 (4.4-11.0)
--- NOTE | 2022-12-17 18:47 | CM.ED ---
Social Work SW introduced self and role to patient. SW provided emotional support. Pt is frustrated and angry about being here and her guardian. Pt has been pressing her call light frequently. Pt is intoxicated and discussed drinking shots of vodka today. Pt wants to leave. SW encouraged patient to stay and be patient. Pt reports she is glad someone listened to her. Patsy Breen SITE DIRECTOR, BUSINESS BANKER
[2022-12-17 18:48] LABS: ALB/GLOB Ratio 1.1 RATIO (0.9-2.4); AST(SGOT) 37 U/L (15-37); Alanine Aminotransfer ALT/SGPT 32 U/L (13-56); Albumin, Serum 4.5 g/dL (3.2-5.0); Alkaline Phosphatase 115 U/L (45-117); Anion Gap 10 (5-15); BUN 6 mg/dL (7-18); BUN/Creat Ratio 9.4 RATIO (10-20); Calcium,Total 9.5 mg/dL (8.5-10.1); Chloride 107 mmol/L (98-107); Creatinine, Serum 0.64 mg/dL (0.55-1.02); EST Glomerular Filtration Rate 96 mL/min (>60); Est Glom Filt Rate - Afr Amer 117 mL/min (>60); Estimated Creatinine Clearance 44.41 ml/min; Glucose 100 mg/dL (74-106); Lipase 13 U/L (13-75); Protein, Total 8.5 g/dL (6.4-8.2); Sodium Level 140 mmol/L (136-145)
[2022-12-17] MEDS: Acetaminophen 500 MG Tablet 1000 MG PO (19:00)
--- NOTE | 2022-12-17 19:15 | PCM.HP.STD ---
HPI - General General Date of Admission: 12/17/22 Date of Service: 12/17/22 Chief Complaint: EtOH impending withdrawal treatment. HPI Narrative The patient is a 72 y/o F w/ PMHx: Tobacco use, Diabetes mellitus type II, HLD, Anxiety and Depression/Bipolar disorder/Delusional disorder, Fibromyalgia, Psoriatic arthritis, Chronic back pain, Hx EtOH pancreatitis who presents to the [facility] ED on 12/17/22 w/ noted recent transition out of assisted living to [facility] which is nearby bar as well as a gas station with recurrent heavy alcohol intake brought in by guardian for concerns with unclear alcohol intake daily and patient is unable to give exact amount however given these concerns prompted ED evaluation. Patient reports that she normally drinks vodka but cannot give exact daily amount. She notes that she drinks because of severe joint pain. She says that supposedly her primary care situation is working on getting her in with rheumatology but she has yet to have a visit but again she is currently intoxicated and not the best historian. Currently she points to her bilateral wrists and hands and states these are the most painful at this moment. She does have very staged ecchymoses on her body and denies falling. Work-up in the ED included T97.2, heart rate 116, BP 138/80, respiratory rate 17, 95% room air, CBC with WBC 11.6, hemoglobin 15.4, platelet 339 with left shift, CMP with no marked findings, lipase 13, ethyl alcohol level 247. In the ED patient ministered Tylenol 1000 mg p.o. x1. Urinalysis and UDS pending upon requested evaluation of patient. PFSH Medical History Bipolar disorder Delusional disorder Diabetes ETOH abuse Fibromyalgia GERD (gastroesophageal reflux disease) HLD (hyperlipidemia) Psoriatic arthritis Tobacco use Home Medications metronidazole 500 mg tablet 500 mg PO TID pcp #21 tabs 06/30/20 [Rx Last Taken Unknown] vancomycin 1 gram/200 mL in dextrose 5 % intravenous piggyback 1,000 mg IV Q12H pcp #14 BAGS 06/30/20 [Rx Last Taken Unknown] acetaminophen 500 mg tablet 1,000 mg (2 x 500 mg) PO Q8 pcp 07/01/20 [Rx Last Taken Unknown] arginine 7 gram-glutam 7 gram-CaHMB 1.5 ssre-ocopz-rk-min oral pwd pkt 1 packet PO BIDCM pcp 07/01/20 [Rx Last Taken Unknown] dicyclomine 10 mg capsule 20 mg (2 x 10 mg) PO Q6H PRN PRN abdominal discomfort 07/01/20 [Rx Last Taken Unknown] enoxaparin 40 mg/0.4 mL subcutaneous syringe 40 mg (0.4 mL) subcut DAILY@0600 pcp 07/01/20 [Rx Last Taken Unknown] folic acid 1 mg tablet 1 mg PO DAILY@0800 see pcp 07/01/20 [Rx Last Taken Unknown] menthol 0.44 %-zinc oxide 20.6 % topical ointment 1 applic topical TID pcp 07/01/20 [Rx Last Taken Unknown] metoprolol tartrate 25 mg tablet 25 mg PO BID see pcp 07/01/20 [Rx Last Taken Unknown] nutrition tx glu intol,lac-free,soy-fiber 0.06 gram-1.2 kcal/mL liquid 120 ml PO 4X/DAY pcp 07/01/20 [Rx Last Taken Unknown] sennosides 8.6 mg-docusate sodium 50 mg tablet 2 tab PO BID PRN PRN Constipation 07/01/20 [Rx Last Taken Unknown] thiamine HCl (vitamin B1) 100 mg tablet 100 mg PO DAILYCM pcp 07/01/20 [Rx Last Taken Unknown] trazodone 100 mg tablet 100 mg PO QHS PRN Insomnia 07/01/20 [Rx Last Taken Unknown] levofloxacin 500 mg tablet 500 mg PO DAILY@0600 pcp #5 tabs 07/07/20 [Rx Last Taken Unknown] prednisone 20 mg tablet 40 mg (2 x 20 mg) PO DAILY pcp #10 TABLETS 11/24/22 [Rx Last Taken Unknown] prednisone 20 mg tablet 40 mg (2 x 20 mg) PO DAILY pcp #8 TABLETS 11/27/22 [Rx Last Taken Unknown] atorvastatin 20 mg tablet 20 mg PO DAILY pcp 12/14/22 [History Last Taken Unknown] ferrous sulfate 325 mg (65 mg iron) tablet (FeroSul) 325 mg PO DAILY see pcp 12/14/22 [History Last Taken Unknown] loratadine 10 mg capsule 10 mg PO DAILY see pcp 12/14/22 [History Last Taken Unknown] meloxicam 15 mg tablet 15 mg PO DAILY see pcp 12/14/22 [History Last Taken Unknown] metformin 1,000 mg tablet 1,000 mg PO BID DM 12/14/22 [History Last Taken Unknown] carboxymethylcellulose sodium 0.5 % eye drops in a dropperette (Refresh Plus) 1 drp EACH EYE BID pcp 12/17/22 [History Last Taken Unknown] ceftriaxone 2 gram solution for injection 2 g IV Q24 pcp 12/17/22 [History Last Taken Unknown] cetirizine 10 mg tablet (24Hour Allergy) 10 mg PO QHS PRN pcp 12/17/22 [History Last Taken Unknown] cholecalciferol (vitamin D3) 125 mcg (5,000 unit) tablet (Vitamin D3) 5,000 unit PO QWEEK pcp 12/17/22 [History Last Taken Unknown] cyanocobalamin (vitamin B-12) 1,000 mcg tablet (Vitamin B-12) 1,000 mcg PO DAILY pcp 12/17/22 [History Last Taken Unknown] fluvoxamine 25 mg tablet 25 mg PO BID pcp 12/17/22 [History Last Taken Unknown] melatonin 3 mg tablet 6 mg PO QHS sleep 12/17/22 [History Last Taken Unknown] omeprazole 20 mg capsule,delayed release 20 mg PO DAILY pcp 12/17/22 [History Last Taken Unknown] Allergy/AdvReac Type Severity Reaction Status Date / Time nickel [Nickel] Allergy Rash/autoimmune Verified 12/17/22 21:14 reactions Environmental Allergies: AdvReac Rash Verified 12/17/22 21:14 Uncoded prochlorperazine edisylate AdvReac disoriente Verified 12/17/22 21:14 [From Compazine] d prochlorperazine maleate AdvReac DISORIENTED Verified 12/17/22 21:14 [From Compazine] Family History (Updated 12/17/22 @ 21:[address] Annita Li MD) Mother Psoriatic arthritis Father Hypertension Surgical History History of total left hip replacement Social History (Updated 12/17/22 @ 21:[address] Annita Li MD) household members: none Smoking Status: Current every day smoker tobacco type: cigarettes Smoking packs per day: 0.5 Smoking cigarettes per day: 10.0 alcohol intake: current alcohol intake frequency: 3 or more drinks per day details: Cannot given exact amount but reports heavy vodka intake daily. substance use type: does not use ROS ROS Narrative Admission Review of Systems: CONSTITUTIONAL: No weight loss, fever, chills, + weakness or fatigue. HEENT: Eyes: No visual loss, blurred vision, double vision or yellow sclerae. Ears, Nose, Throat: No hearing loss, sneezing, congestion, runny nose or sore throat. SKIN: + Very staged ecchymoses to the extremities with suspected falls serially. CARDIOVASCULAR: No chest pain, chest pressure or chest discomfort, palpitations, edema, orthopnea, syncopal events. RESPIRATORY: No shortness of breath, cough or sputum, wheezing, hemoptysis. GASTROINTESTINAL: No anorexia, nausea, vomiting or diarrhea, abdominal pain, melena, BRBPR. GENITOURINARY: No dysuria, frequency, urgency or retention. NEUROLOGICAL: No headache, dizziness, syncope, paralysis, ataxia, numbness or tingling in the extremities, focal weakness, change in bowel or bladder control, seizure. MUSCULOSKELETAL: + muscle, back pain, joint pain or stiffness. HEMATOLOGIC: + Easy bleeding or bruising. LYMPHATICS: No enlarged nodes. No history of splenectomy. PSYCHIATRIC: + history of depression or anxiety. ENDOCRINOLOGIC: No reports of sweating, cold or heat intolerance. No polyuria or polydipsia. ALLERGIES: + history of rhinitis, hives. Vital Signs Vital Signs Vital Signs: 12/17/22 15:35 Temperature 97.2 F L Temperature Source Temporal Pulse Rate 116 H Respiratory Rate 17 Blood Pressure 138/80 H Blood Pressure Mean 99 Pulse Ox 95 Oxygen Delivery Method Room Air Weight Weight: 142 lb Body Mass Index (BMI) 23.6 Physical Exam Narrative Physical Examination: General: Awake, alert, oriented x 3 and cooperative, seated upright in the ED bed, reports pain to joints, not forthcoming about exact alcohol intake, initially reported none on day of presentation but once further discussed admitted to heavy vodka intake. Skin: Normal color, normal turgor, no icterus, no cyanosis except for very staged ecchymoses to the extremities. HEENT: AT/NC, EOMI, PERRLA, dry MM, no carotid bruits or JVD noted. Lungs: Diminished, greater bases, appropriate effort, no rales, ronchi or wheezing. Heart: Mildly tachycardic with regular rhythm; no gallop, rub audible. Abdomen: Soft, NTTP, ND, hyperactive BS, + HM. Extremities: No cyanosis, no clubbing clubbing or marked edema, see skin. Neurological: Patient awake, alert, oriented as noted, cognitive function appears intact although by lab values patient is likely intoxicated at this point but likely her baseline; pupils equally reactive to light and accommodation, cranial nerves grossly normal, moving all 4 extremities, no focal deficits, strength moderately global decreased. Psychiatric: Affect appears flat, suspect uncontrolled depression and does have underlying anxiety and depressive history, admits to alcohol abuse because of her chronic pain. Results Lab / Micro Data 12/17/22 16:35 12/17/22 16:35 Labs: Laboratory Results - last 24 hr 12/17/22 16:35: WBC 11.6 H, RBC 5.06, Hgb 15.4 H, Hct 47.7 H, MCV 94.3, MCH 30.4, MCHC 32.3, RDW Std Deviation 50.4 H, RDW Coeff of Jonathan 14.6, Plt Count 339, MPV 8.9, Immature Gran % (Auto) 0.800, Neut % (Auto) 67.3, Lymph % (Auto) 24.3, Swift % (Auto) 5.8, Eos % (Auto) 1.1, Baso % (Auto) 0.7, Absolute Neuts (auto) 7.8 H, Absolute Lymphs (auto) 2.83, Nucleated RBC % 0, Sodium 140, Potassium 4.0, Chloride 107, Carbon Dioxide 23.0, Anion Gap 10, BUN 6 L, Creatinine 0.64, Estim Creat Clear Calc 44.41, Est GFR (MDRD) Af Amer 117, Est GFR (MDRD) Non-Af 96, BUN/Creatinine Ratio 9.4 L, Glucose 100, Calcium 9.5, Total Bilirubin 0.20, AST 37, ALT 32, Alkaline Phosphatase 115, Total Protein 8.5 H, Albumin 4.5, Globulin 4.0, Albumin/Globulin Ratio 1.1, Lipase 13, Ethyl Alcohol 247.0 Assessment & Plan Assessment/Plan (1) Alcohol abuse: PLAN: Plan The patient is a 72 y/o F w/ PMHx: Tobacco use, Diabetes mellitus type II, HLD, Anxiety and Depression/Bipolar disorder/Delusional disorder, Fibromyalgia, Psoriatic arthritis, Chronic back pain, Hx EtOH pancreatitis who presents to the [facility] ED on 12/17/22 w/ noted recent transition out of assisted living to [facility] which is nearby bar as well as a gas station with recurrent heavy alcohol intake brought in by guardian for concerns with unclear alcohol intake daily and patient is unable to give exact amount however given these concerns prompted ED evaluation. #1. Alcohol abuse with Hx EtOH pancreatitis presenting with Impending Acute EtOH Withdrawal: Will admit to [facility], routine labs obtained in the ED upon presentation with no acute findings. Given interest in sobriety, will initiate and continue on protocol with taper course of Phenobarbital, as needed gabapentin, Catapres, Bentyl, Vistaril, IV fluids, IV antiemetics, Tylenol as needed for pain. Will consult Case management for assistance for transition to next level of rehabilitation care. Mag, phos pending. Maintain on CIWA protocol concurrently. Maintain on thiamine as well as folic acid. #2. Diabetes mellitus type II: Hold oral regimen, will maintain on ADA diet, accu checks w/ ISS. #3. Psoriatic arthritis: Not on any chronic regimen, noted steroids pulse dose however clarifying. Given psoriatic arthritic pain as well as her chronic back pain leading to her significant alcohol intake would benefit greatly from an early evaluation and follow-up with rheumatology and potentially pain management at discharge. #4. Chronic back pain: Maintain on fall precautions, will have as needed agents as needed per the substance abuse order set, given psoriatic arthritic pain as well as her chronic back pain leading to her significant alcohol intake would benefit greatly from an early evaluation and follow-up with rheumatology and potentially pain management at discharge. #5. Anxiety and depression/bipolar disorder/delusional disorder: We will continue patient home fluoxetine home regimen. #6. Tobacco Abuse: Encouraged cessation, inpatient consultation per RT, NR if desired. #7. Hyperlipidemia: We will continue patient on statin therapy. #8. Allergic rhinitis: We will continue patient home loratadine regimen. #9. DVT prophylaxis: Low risk for current presentation plan of care as noted. #10. CODE status: Patient does not have healthcare power of telephone cleaner nor living will in place but notes that her decision-maker if necessary would be her brother. Full Code. Admission Evaluation Time spent evaluating chart, patient history, patient evaluation, care planning and discussion with specialists: 75 minutes. Charges/Coding Visit Charges Inpatient E&M: 68296 Init Hosp L3
[2022-12-17 20:32] VITALS: BP 121/85; PULSE 94; RESP 16; TEMP 36.2; O2SAT 99
[2022-12-17 20:41] LABS: Magnesium 1.7 mg/dL (1.6-2.6); Phosphorus 2.8 mg/dL (2.5-4.9)
[2022-12-17 20:51] VITALS: BMI 19.5
[2022-12-17 21:32] VITALS: BP 147/75; PULSE 107; RESP 16; TEMP 36.9; O2SAT 97
--- NOTE | 2022-12-17 22:00 | NURSING ---
Pt told this nurse she is being forced to quit drinking. Pt said when she leaves she will continue to drink. Pt refusing to remove her pants. Pt said she had a wallet. none in room. Ed called talked to vito romero she will check.
[2022-12-17] MEDS: Lactated Ringers 1,000 ML 125 ML IV (22:05)
[2022-12-17] MEDS: Phenobarbital 32.4 MG Tablet 64.8 MG PO (22:06)
[2022-12-17] MEDS: Gabapentin 300 MG Capsule PO (22:06)
[2022-12-17] MEDS: hydrOXYzine PAM 25 MG Capsule 50 MG PO (22:06)
[2022-12-17] MEDS: Ibuprofen 600 MG Tablet PO (22:11)
[2022-12-17] MEDS: Glucerna Shake 120 ML LIQUID PO (22:11)
[2022-12-17 22:30] LABS: Bedside Glucose 94 mg/dL (74-106)
[2022-12-17] MEDS: Atorvastatin Calcium 20 MG Tablet PO (22:50)
[2022-12-17] MEDS: fluvoxaMINE Maleate 50 MG Tablet 25 MG PO (22:50)
[2022-12-17] MEDS: Pantoprazole Sodium 20 MG Tablet PO (22:50)
[2022-12-17] MEDS: MELATONIN 3 MG TABLET 6 MG PO (22:51)
[2022-12-17] MEDS: Glycerin/Hypromellose/PEG400 15 ml Bottle 1 DRP EACH EYE (22:51)
[2022-12-17] MEDS: traZODone 100 MG Tablet PO (22:51)
[2022-12-18] VITALS (7 sets, daily range): BP systolic 112–153; BP diastolic 69–78; PULSE 76–108; RESP 16–18; TEMP 36.6–37.1; O2SAT 94–98; BMI 19.5
[2022-12-18] MEDS: Phenobarbital 32.4 MG Tablet 64.8 MG PO ×6 (01:55→21:55)
[2022-12-18 06:01] LABS: Mucous, Urine 0 SEEN /hpf (<or=2+); Red Blood Cells-Urine 0 SEEN /hpf (0-5); Squamous Epithelial Cells - UA 0 SEEN /hpf (5-10)
[2022-12-18] MEDS: 0.9% Saline Lock 10 ML Syringe IV (06:04)
[2022-12-18 06:05] LABS: Color, Urine Yellow (Yellow); Glucose, Dipstick Normal (Normal); Ketone-Dipstick 15 mg/dl (Negative); Leukocyte Esterase-Dipstick 500 /ul (Negative); Nitrite-Dipstick Positive (Negative); Occult Blood-Urine 10 /ul (Negative); Protein-Dipstick 15 mg/dl (Negative); Specific Gravity, Urine 1.015 (1.002-1.030); Urine Bilirubin Dipstick Negative (Negative); Urine Clarity Clear (Clear); Urine Urobilinogen Normal (Normal)
[2022-12-18 06:24] LABS: Bedside Glucose 70 mg/dL (74-106)
[2022-12-18 06:30] LABS: Bacteria 3+ /hpf (None Seen); White Blood Cells 10-25 SEEN /hpf (0-5)
[2022-12-18 06:35] LABS: Amphetamine Urine VISTA NEGATIVE (<1000 ng/mL); Barbiturate Urine VISTA POSITIVE (< 200 ng/mL); Benzodiazepine Urine VISTA NEGATIVE (< 200 ng/mL); Cocaine Urine VISTA NEGATIVE (< 300 ng/mL); Ecstacy Urine VISTA NEGATIVE (< 500 ng/mL); Methadone Urine VISTA NEGATIVE (< 300 ng/mL); PCP Urine VISTA NEGATIVE (< 25 ng/mL); THC Urine VISTA NEGATIVE (< 50 ng/mL); Vista UDS pH Range 5
[2022-12-18 06:42] LABS: Bedside Glucose 157 mg/dL (74-106)
[2022-12-18] MEDS: Meloxicam 15 MG Tablet PO (09:54)
[2022-12-18] MEDS: fluvoxaMINE Maleate 50 MG Tablet 25 MG PO ×2 (09:54→21:56)
[2022-12-18] MEDS: Ferrous Sulfate 325 MG Tablet PO (09:54)
[2022-12-18] MEDS: Thiamine Hydrochloride 100 MG Tablet PO (09:54)
[2022-12-18] MEDS: Folic Acid 1 MG Tablet PO (09:54)
[2022-12-18] MEDS: Multivitamins,Ther W-Minerals Tablet 1 TABLET PO (09:54)
[2022-12-18] MEDS: Loratadine 10 MG Tablet PO (09:54)
[2022-12-18] MEDS: Pantoprazole Sodium 20 MG Tablet PO ×2 (09:55→21:57)
--- NOTE | 2022-12-18 10:44 | PN.HOSP_ITS ---
Reason for Visit Reason for Visit: Diagnoses Alcohol abuse, uncomplicated (12/17/22) Subjective Subjective Patient has history of chronic alcohol use and chronic delusional disorder. Objective Data Objective Data Vital Signs: Vital Signs Temp Pulse Resp BP Pulse Ox O2 Del Method 98.4 F 76 18 130/71 H 94 Room Air 12/18/22 09:51 12/18/22 09:51 12/18/22 09:51 12/18/22 09:51 12/18/22 09:51 12/18/22 10:05 Oxygen Delivery Method Room Air Weight: 124 lb 8.979 oz Body Mass Index (BMI) 19.5 Intake & Output: Intake and Output for Last 24 Hours 12/16/22 12/17/22 12/18/22 23:59 23:59 23:59 Intake Total 1000 / 1000 Balance 1000 / 1000 Lab / Micro Data 12/17/22 16:35 12/17/22 16:35 Labs: Laboratory Results - last 24 hr 12/17/22 16:35: WBC 11.6 H, RBC 5.06, Hgb 15.4 H, Hct 47.7 H, MCV 94.3, MCH 30.4, MCHC 32.3, RDW Std Deviation 50.4 H, RDW Coeff of Jonathan 14.6, Plt Count 339, MPV 8.9, Immature Gran % (Auto) 0.800, Neut % (Auto) 67.3, Lymph % (Auto) 24.3, Falls % (Auto) 5.8, Eos % (Auto) 1.1, Baso % (Auto) 0.7, Absolute Neuts (auto) 7.8 H, Absolute Lymphs (auto) 2.83, Nucleated RBC % 0, Sodium 140, Potassium 4.0, Chloride 107, Carbon Dioxide 23.0, Anion Gap 10, BUN 6 L, Creatinine 0.64, Estim Creat Clear Calc 44.41, Est GFR (MDRD) Af Amer 117, Est GFR (MDRD) Non-Af 96, BUN/Creatinine Ratio 9.4 L, Glucose 100, Calcium 9.5, Phosphorus 2.8, Magnesium 1.7, Total Bilirubin 0.20, AST 37, ALT 32, Alkaline Phosphatase 115, Total Protein 8.5 H, Albumin 4.5, Globulin 4.0, Albumin/Globulin Ratio 1.1, Lipase 13, Ethyl Alcohol 247.0 12/17/22 21:53: POC Glucose 94 12/18/22 05:55: Urine Color Yellow, Urine Clarity Clear, Urine pH 5.0, Ur Specific [place] 1.015, Urine Protein 15 H, Urine Glucose (UA) Normal, Urine Ketones 15 H, Urine Occult Blood 10 H, Urine Nitrite Positive H, Urine Bilirubin Negative, Urine Urobilinogen Normal, Ur Leukocyte Esterase 500 H, Urine RBC 0 SEEN, Urine WBC 10-25 SEEN, Ur Squamous Epith Cells 0 SEEN, Urine Bacteria 3+, Urine Mucus 0 SEEN, Urine Opiates Screen NEGATIVE, Urine Methadone Screen NEGATIVE, Ur Barbiturates Screen POSITIVE H, Ur Phencyclidine Scrn NEGATIVE, Ur Amphetamines Screen NEGATIVE, MDMA (Ecstasy) Screen NEGATIVE, U Benzodiazepines Scrn NEGATIVE, Urine Cocaine Screen NEGATIVE, U Cannabinoids Screen NEGATIVE, Ur Drug Screen Comment 12/18/22 06:00: POC Glucose 70 L 12/18/22 06:24: POC Glucose 157 H Physical Exam Narrative Seen and examined. Patient is states she does not drink regularly but once in a while. She drinks about one quarter of vodka once in a while although hard time in getting quantity frequency and drinking pattern. She also has delusional disorder and gets angry when her guardian sold her house. She is living in assisted living center. Complain of pain all over the body. Physical exam General: Alert, Oriented x3, Cooperative. BMI 19.5 kg/m? HEENT: Atraumatic, PERRLA, EOMI, Normocephalic Oral: No Gingival or Mucosal Lesions/ Ulcerations Neck: Supple, No JVD, Negative Carotid Bruits Lungs: Air entry diminished in bilateral lung bases. No crepitation/rhonchi Cardiovascular: Regular rate, Regular Rhythm, Normal S1, Normal S2, No murmurs Abdomen: Bowel Sounds Present, Soft, Non Tender, Non-Distended : No renal angle tenderness. No suprapubic tenderness. Extremities: No edema, Capillary Refill Less than 3 Seconds Skin: No rashes, No breakdown Musculoskeletal: No focal tenderness to Palpation of Joints. Nondescriptive muscle tenderness. Neurological: Cranial nerves II-XII grossly intact, DTR 2+/4 and Symmetrical, chronic mild protein calorie malnutrition. Psych/Mental Status: Flat affect. Has anger. Delusional disorder. Assessment & Plan Assessment/Plan (1) Alcohol abuse: PLAN: Plan The patient is a 72 y/o F was admitted for acute alcohol withdrawal. noted recent transition out of assisted living to [facility] which is nearby bar as well as a gas station with recurrent heavy alcohol intake brought in by guardian for concerns with unclear alcohol intake daily and patient is unable to give exact amount however given these concerns prompted ED evaluation. #1. Acute alcohol withdrawal syndrome with history of chronic alcohol use disorder dependence and tolerance: Patient is being on the MedSurg floor. Patient on phenobarbital based order set along with other adjunctive medications as needed for alcohol withdrawal symptom control. CIWA monitor. Patient states he does not drink regularly but once in a while all the hard time getting the exact amount, frequency and drinking pattern. Does not have tremor. No acute seizure. Maintain on thiamine as well as folic acid. #2. Diabetes mellitus type II: Hold oral regimen, on ADA diet, accu checks w/ ISS. #3. Psoriatic arthritis: Not on any home medication specific or sciatic there arthritis or Biologics. Chronic back pain leading to significant alcohol intak e. #4. Chronic back pain: PT and OT ordered. Follow with PCP/spine surgeon. #5. Anxiety and depression/bipolar disorder/chronic delusional disorder: continue patient home fluoxetine #6. Tobacco Abuse: Encouraged cessation. On nicotine patch #7. dyslipidemia: Continue patient on statin therapy. #8. Allergic rhinitis: continue patient home loratadine regimen. #9. DVT prophylaxis: Low risk for current presentation plan of care as noted. #10. CODE status: Patient does not have healthcare power of workers compensation attorney nor living will in place but notes that her decision-maker if necessary would be her brother. Full Code. Charges/Coding Visit Charges Inpatient E&M: 59017 Subs Hosp L2
[2022-12-18] MEDS: Insulin Lispro 100 UNIT/ML INSULN.PEN SC ×2 (11:51→16:14)
--- NOTE | 2022-12-18 12:00 | ADDICTION ---
This poem writer met with PT to conduct ASAM, MSE, AUDIT, DUDIT assessments and to plan for d/c. PT A+Ox4 and participated actively. All assessments completed and placed in PT's chart. PT does not plan to f/u with treatment services upon d/c and did not plan on coming to detox in the first place. She came due to her guardian, Juan Johnson telling her she had to go. This worker offered resources. PT did indicate a need for transportation post d/c from [facility].
[2022-12-18 12:23] LABS: Bedside Glucose 311 mg/dL (74-106)
[2022-12-18] MEDS: Glucerna Shake 120 ML LIQUID PO (13:53)
--- NOTE | 2022-12-18 16:09 | CASEMGMT ---
Social Work Pt has a legal guardian, Juan Johnson. Documents on pt chart and Gaurdians name and contact info on demo sheet. RHONDA Olmos
--- NOTE | 2022-12-18 16:22 | CASEMGMT ---
Social Work Referral received for alternative placement. Pt is currently a resident at [facility]. Pt does have a Guardian, Juan Johnson who spoke with ED SW and is requesting alternate placement for pt. Phone call to [facility], pt does not have services though . left with Juan Johnson to discuss discharge plan. SW will await return call. RHONDA Salazar
[2022-12-18 17:22] LABS: Bedside Glucose 243 mg/dL (74-106)
[2022-12-18] MEDS: hydrOXYzine PAM 25 MG Capsule 50 MG PO (19:54)
[2022-12-18] MEDS: Acetaminophen 325 MG Tablet 650 MG PO (19:54)
[2022-12-18] MEDS: Glycerin/Hypromellose/PEG400 15 ml Bottle 1 DRP EACH EYE (21:55)
[2022-12-18] MEDS: traZODone 100 MG Tablet PO (21:55)
[2022-12-18] MEDS: Menthol/Lanolin/Calamine/Znox 113 GM Tube 1 APPLIC TOPICAL (21:55)
[2022-12-18] MEDS: Atorvastatin Calcium 20 MG Tablet PO (21:57)
[2022-12-18] MEDS: Metoprolol Tartrate 25 MG Tablet PO (21:57)
[2022-12-18] MEDS: MELATONIN 3 MG TABLET 6 MG PO (21:57)
[2022-12-18 22:19] LABS: Bedside Glucose 102 mg/dL (74-106)
[2022-12-19] MEDS: Ibuprofen 600 MG Tablet PO (01:47)
[2022-12-19] MEDS: Gabapentin 300 MG Capsule PO (01:48)
[2022-12-19] MEDS: Phenobarbital 32.4 MG Tablet 64.8 MG PO ×4 (01:48→21:17)
[2022-12-19] MEDS: hydrOXYzine PAM 25 MG Capsule 50 MG PO (01:48)
[2022-12-19 01:49] VITALS: BP 151/90; PULSE 72; RESP 16; TEMP 36.7; O2SAT 98
[2022-12-19] MEDS: LORazepam 1 MG Tablet 2 MG PO ×3 (01:56→22:22)
[2022-12-19 03:33] VITALS: BMI 19.5
[2022-12-19 06:20] LABS: Bedside Glucose 105 mg/dL (74-106)
[2022-12-19 07:31] VITALS: O2SAT 95
[2022-12-19 10:06] VITALS: BP 121/71; PULSE 75; RESP 18; TEMP 36.9; O2SAT 94
[2022-12-19] MEDS: Meloxicam 15 MG Tablet PO (10:10)
[2022-12-19] MEDS: Thiamine Hydrochloride 100 MG Tablet PO (10:10)
[2022-12-19] MEDS: Multivitamins,Ther W-Minerals Tablet 1 TABLET PO (10:10)
[2022-12-19] MEDS: Folic Acid 1 MG Tablet PO (10:10)
[2022-12-19] MEDS: Pantoprazole Sodium 20 MG Tablet PO ×2 (10:10→21:28)
[2022-12-19] MEDS: Ferrous Sulfate 325 MG Tablet PO (10:10)
[2022-12-19 10:11] VITALS: PULSE 75
[2022-12-19] MEDS: Metoprolol Tartrate 25 MG Tablet PO ×2 (10:11→21:17)
[2022-12-19] MEDS: Loratadine 10 MG Tablet PO (10:11)
[2022-12-19] MEDS: fluvoxaMINE Maleate 50 MG Tablet 25 MG PO ×2 (10:44→21:20)
[2022-12-19 11:52] LABS: Bedside Glucose 113 mg/dL (74-106)
--- NOTE | 2022-12-19 12:22 | CASEMGMT ---
Discharge Planning Referral sent to [facility] via [facility]. Rosy Aguirre, Discharge Planning Asst.
--- NOTE | 2022-12-19 12:43 | CASEMGMT ---
Social Work SW spoke with LEFTY Grossman at [facility]. Pt was previously at [facility] and was admitted to [facility] approximatly 1 month ago. Since this time pt has leaving the AL to get alcohol and pt is drunk much of the time and falling and crawling on the floor. Pt needs assistance with showers but does not allow assistance from staff. Pt is smoking in the room and lighting cigerettes with the stove burner. Ngoc states that pt is a danger to herself in this setting and staff is not able to provide level of supervision pt requires. [facility] made referrals to Mic[facility] and Mary and they declined her. Phone call to pt Guardian Juan Johnson who confirms pt has been at [facility] for the past year and a half and doing well. Pt was transferred to a lower level of care at [facility] but pt was not able to sucessfully live at this level of care. Pt requires more supervision for her safety and well being. Juan reports he has spoke with [facility] and they are willing to accept back. Pt will be going to facility private pay. Referral to be sent to [facility]. SW will await determination of acceptance. Plan: [facility], intermediate level of care Pending acceptance RHONDA Salazar
--- NOTE | 2022-12-19 13:28 | PN.HOSP_ITS ---
Reason for Visit Reason for Visit: Diagnoses Alcohol abuse, uncomplicated (12/17/22) Objective Data Objective Data Vital Signs: Vital Signs Temp Pulse Resp BP Pulse Ox O2 Del Method 98.4 F 75 18 121/71 H 94 Room Air 12/19/22 10:06 12/19/22 10:11 12/19/22 10:06 12/19/22 10:06 12/19/22 10:06 12/19/22 10:21 Oxygen Delivery Method Room Air Weight: 124 lb 8.979 oz Body Mass Index (BMI) 19.5 Intake & Output: Intake and Output for Last 24 Hours 12/17/22 12/18/22 12/19/22 23:59 23:59 23:59 Intake Total 1120 / 1120 120 / 120 Balance 1120 / 1120 120 / 120 Lab / Micro Data 12/17/22 16:35 12/17/22 16:35 Labs: Laboratory Results - last 24 hr 12/18/22 16:11: POC Glucose 243 H 12/18/22 21:54: POC Glucose 102 12/19/22 06:02: POC Glucose 105 12/19/22 11:34: POC Glucose 113 H Physical Exam Narrative Seen and examined. Patient did not sleep yesterday. Currently she is sleeping. She wakes up on verbal, Physical exam General: Sleeping. Cooperative. BMI 19.5 kg/m? HEENT: Atraumatic, PERRLA, EOMI, Normocephalic Oral: No Gingival or Mucosal Lesions/ Ulcerations Neck: Supple, No JVD, Negative Carotid Bruits Lungs: Air entry diminished in bilateral lung bases. No crepitation/rhonchi Cardiovascular: Regular rate, Regular Rhythm, Normal S1, Normal S2, No murmurs Abdomen: Bowel Sounds Present, Soft, Non Tender, Non-Distended : No renal angle tenderness. No suprapubic tenderness. Extremities: No edema, Capillary Refill Less than 3 Seconds Skin: No rashes, No breakdown Musculoskeletal: No focal tenderness to Palpation of Joints. Nondescriptive muscle tenderness. Neurological: Cranial nerves II-XII grossly intact, DTR 2+/4 and Symmetrical, chronic mild protein calorie malnutrition. Psych/Mental Status: Flat affect. Delusional disorder. Assessment & Plan Assessment/Plan (1) Alcohol abuse: PLAN: Plan The patient is a 72 y/o F was admitted for acute alcohol withdrawal. #1. Acute alcohol withdrawal syndrome with history of chronic alcohol use d isorder dependence and tolerance: Patient is being on the MedSurg floor. Patient on phenobarbital based order set along with other adjunctive medications as needed for alcohol withdrawal symptom control. CIWA monitor. Patient states he does not drink regularly but once in a while all the hard time getting the exact amount, frequency and drinking pattern. Does not have tremor. No acute seizure. Maintain on thiamine as well as folic acid. 12/19: Patient had phenobarbital 100 minutes sleeping. CIWA score 11 last night and today 3. No right lower quadrant tenderness. #2. Diabetes mellitus type II: Hold oral regimen, on ADA diet, accu checks w/ ISS. Since last admission glucose 600. #3. Psoriatic arthritis: Not on any home medication specific or sciatic there arthritis or Biologics. Chronic back pain leading to significant alcohol intake. #4. Chronic back pain: PT and OT ordered. Follow with PCP/spine surgeon. #5. Anxiety and depression/bipolar disorder/chronic delusional disorder: continue patient home fluoxetine #6. Tobacco Abuse: Encouraged cessation. On nicotine patch #7. dyslipidemia: Continue patient on statin therapy. #8. Allergic rhinitis: continue patient home loratadine regimen. #9. DVT prophylaxis: Low risk for current presentation plan of care as noted. #10. CODE status: Patient does not have healthcare power of prosecuting attorney nor living will in place but notes that her decision-maker if necessary would be her brother. Full Code. Charges/Coding Visit Charges Inpatient E&M: 46823 Subs Hosp L2
--- NOTE | 2022-12-19 13:45 | CASEMGMT ---
Social Work Pt has been accepted at [facility] and can discharge after detox protocol is complete. Physician updated. left with Guardian updating. Phone call to Ngoc at [facility] notified. Plan: [facility], after detox complete RHONDA Salazar
[2022-12-19 14:00] VITALS: BP 133/85; PULSE 74; RESP 18; TEMP 36.8; O2SAT 98
[2022-12-19 18:17] LABS: Bedside Glucose 121 mg/dL (74-106)
[2022-12-19 21:17] VITALS: BP 142/87; PULSE 63; RESP 16; TEMP 36.6; O2SAT 97
[2022-12-19] MEDS: traZODone 100 MG Tablet PO (21:17)
[2022-12-19] MEDS: Atorvastatin Calcium 20 MG Tablet PO (21:20)
[2022-12-19] MEDS: Glycerin/Hypromellose/PEG400 15 ml Bottle 1 DRP EACH EYE (21:21)
[2022-12-19] MEDS: MELATONIN 3 MG TABLET 6 MG PO (21:21)
[2022-12-19] MEDS: Menthol/Lanolin/Calamine/Znox 113 GM Tube 1 APPLIC TOPICAL (21:21)
[2022-12-19 22:30] LABS: Bedside Glucose 107 mg/dL (74-106)
[2022-12-20 02:12] VITALS: BP 112/61; PULSE 64; RESP 16; TEMP 36.6; O2SAT 100
[2022-12-20 06:00] VITALS: BMI 19.6
[2022-12-20 06:19] LABS: Bedside Glucose 97 mg/dL (74-106)
[2022-12-20 07:56] VITALS: O2SAT 93
--- NOTE | 2022-12-20 10:11 | TREXTCAR_ITS ---
Diet Diet Order/Speech Therapy: 12/17/22 20:46 Diet: Consistent Carb - Calorie Controlled Food consistency:: Regular Liquid Consistency:: Regular/Thin Dietary Modifications:: Cardiac / Heart Healthy Type of Dietary Supplement:: Glucerna Shake Diet Comments: 120mL glucerna shake TID w/ meals How many daily calories?: 1600 calorie Routine Orders/Code Status Suppository Type: Dulcolax 10mg Suppository Frequency: Daily PRN Code Status: Full Code Therapies Weight Bearing: Weight bearing as tolerated Extremity Affected:: Bilateral Lower Physical Therapy: Eval and Treat Occupational Therapy: Eval and Treat Speech Therapy: Eval and Treat Problem/Diagnosis (1) Alcohol abuse: Status: Chronic Code(s): F10.10 - Alcohol abuse, uncomplicated Plan The patient is a 72 y/o F was admitted for acute alcohol withdrawal. #1. Acute alcohol withdrawal syndrome with history of chronic alcohol use disorder dependence and tolerance: Patient is being on the MedSur floor. Patient on phenobarbital based order set along with other adjunctive medications as needed for alcohol withdrawal symptom control. CIWA monitor. Patient states he does not drink regularly but once in a while all the hard time getting the exact amount, frequency and drinking pattern. Does not have tremor. No acute seizure. Maintain on thiamine as well as folic acid. 12/19: Patient had phenobarbital 100 minutes sleeping. CIWA score 11 last night and today 3. No right lower quadrant tenderness. #2. Diabetes mellitus type II: Hold oral regimen, on ADA diet, accu checks w/ ISS. Since last admission glucose 600. #3. Psoriatic arthritis: Not on any home medication specific or sciatic there arthritis or Biologics. Chronic back pain leading to significant alcohol intake. #4. Chronic back pain: PT and OT ordered. Follow with PCP/spine surgeon. #5. Anxiety and depression/bipolar disorder/chronic delusional disorder: continue patient home fluoxetine #6. Tobacco Abuse: Encouraged cessation. On nicotine patch #7. dyslipidemia: Continue patient on statin therapy. #8. Allergic rhinitis: continue patient home loratadine regimen. #9. DVT prophylaxis: Low risk for current presentation plan of care as noted. #10. CODE status: Patient does not have healthcare power of city attorney nor living will in place but notes that her decision-maker if necessary would be her brother. Full Code. Allergies/Procedures Done in Hospital Allergies nickel [Nickel] Allergy (Verified 12/17/22 21:14) Rash/autoimmune reactions Environmental Allergies: Uncoded Adverse Reaction (Verified 12/17/22 21:14) Rash Cadmium prochlorperazine edisylate [From Compazine] Adverse Reaction (Verified 12/17/22 21:14) disoriented prochlorperazine maleate [From Compazine] Adverse Reaction (Verified 12/17/22 21:14) DISORIENTED Type of Care/Length of Stay Estimated LOS: Convalescent Care Less Than 30 days Type of Care Needed: Intermediate Rehab Potential: Good Prognosis: Good Additional Orders/Day of Discharge Day of Discharge: 12/20/22 Dietary and Speech Recommendations Dietitian Recommendations/Changes: Will adjust diet to 1600 calorie/consistent carbohydrate; cardiac. Will d/c glucerna shake 4 times per day with medpass. Will add 120mL glucerna shake TID w/ meals. Discharge Plan Admission Admit Date/Time: 12/17/22 19:40 Primary Reason for Your Visit: acute alcohol withdrawal syndrome, resolved Attending Provider: Salbador Jacome Primary Care Provider: Terri Saldaña ASSISTANT TODDLER TEACHER Consulting Providers: Annita Li Instructions Additional Instructions / Restrictions: Follow-up with customer records division supervisor, Dr. Garcia for psoriatic arthritis in 1 month Discharge Orders/Prescriptions Prescriptions: Continued sennosides-docusate sodium 1 TABLET tablet 2 tab PO BID PRN PRN (Reason: Constipation) 0RF thiamine HCl (vitamin B1) 100 MG tablet 100 mg PO DAILYCM 0RF trazodone 100 MG tablet 100 mg PO QHS PRN (Reason: Insomnia) 0RF folic acid 1 MG tablet 1 mg PO DAILY@0800 0RF dicyclomine 10 MG capsule 20 mg PO Q6H PRN PRN (Reason: abdominal discomfort) 0RF metoprolol tartrate 25 MG tablet 25 mg PO BID 0RF nut.tx.gluc intol,lf,soy-fiber 120 ML liquid 120 ml PO 4X/DAY 0RF menthol-zinc oxide 1 APPLIC ointment 1 applic TOPICAL TID 0RF Protocol: *Topical Application Instructions APPLICATION INSTRUCTIONS: To coccyx atorvastatin 20 mg tablet 20 mg PO DAILY ferrous sulfate [FeroSul] 325 mg (65 mg iron) tablet 325 mg PO DAILY metformin 1,000 mg tablet 1,000 mg PO BID melatonin 3 mg tablet 6 mg PO QHS cetirizine [24Hour Allergy] 10 mg tablet 10 mg PO QHS PRN (Reason: pcp) fluvoxamine 25 mg tablet 25 mg PO BID omeprazole 20 mg capsule,delayed release(DR/EC) 20 mg PO DAILY carboxymethylcellulose sodium [Refresh Plus] 0.5 % dropperette 1 drp EACH EYE BID cyanocobalamin (vitamin B-12) [Vitamin B-12] 1,000 mcg tablet 1,000 mcg PO DAILY cholecalciferol (vitamin D3) [Vitamin D3] 125 mcg (5,000 unit) tablet 5,000 unit PO QWEEK Changed meloxicam 15 mg tablet 7.5 mg PO DAILY PRN (Reason: see pcp) 30 Days Qty: 0 0RF acetaminophen 500 MG tablet 1,000 mg PO Q8 PRN (Reason: pcp) Qty: 0 0RF Rx Instructions: for back pain Discontinued metronidazole 500 MG tablet 500 mg PO TID Qty: 21 0RF vancomycin in dextrose 5 % 1,000 MG/200 ML piggyback 1,000 mg IV Q12H Qty: 14 0RF Rx Instructions: stop date 07/07/20 dx: R hip infection weekly bmp, cbc, and vanc trough, fax to [phone] enoxaparin 40 MG/0.4 ML syringe 40 mg SC DAILY@0600 0RF vilax-avnz-PoKVB-yathoi-za-vvm 1 PACKET packet 1 packet PO BIDCM 0RF levofloxacin 500 MG tablet 500 mg PO DAILY@0600 Qty: 5 0RF prednisone 20 mg tablet 40 mg PO DAILY Qty: 10 0RF prednisone 20 mg tablet 40 mg PO DAILY Qty: 8 0RF loratadine 10 mg capsule 10 mg PO DAILY ceftriaxone 2 GM recon soln 2 g IV Q24 Referrals / Follow Up: Terri Saldaña ASSISTANT TODDLER TEACHER, ASSISTANT TODDLER TEACHER-C [Primary Care Provider] - Disposition Disposition (needs filled in before D/C Order can be placed): Home, Self Care
[2022-12-20 10:26] VITALS: BP 126/71; PULSE 76; RESP 16; TEMP 36.4; O2SAT 97
[2022-12-20] MEDS: Cyanocobalamin 500 MCG Tablet 1000 MCG PO (10:34)
[2022-12-20 10:35] VITALS: PULSE 76
[2022-12-20] MEDS: Metoprolol Tartrate 25 MG Tablet PO (10:35)
[2022-12-20] MEDS: fluvoxaMINE Maleate 50 MG Tablet 25 MG PO (10:35)
[2022-12-20] MEDS: Thiamine Hydrochloride 100 MG Tablet PO (10:36)
[2022-12-20] MEDS: Pantoprazole Sodium 20 MG Tablet PO (10:36)
[2022-12-20] MEDS: Ferrous Sulfate 325 MG Tablet PO (10:36)
[2022-12-20] MEDS: Folic Acid 1 MG Tablet PO (10:36)
[2022-12-20] MEDS: Loratadine 10 MG Tablet PO (10:36)
[2022-12-20] MEDS: Glycerin/Hypromellose/PEG400 15 ml Bottle 1 DRP EACH EYE (10:37)
[2022-12-20] MEDS: Multivitamins,Ther W-Minerals Tablet 1 TABLET PO (10:37)
[2022-12-20] MEDS: Menthol/Lanolin/Calamine/Znox 113 GM Tube 1 APPLIC TOPICAL (10:37)
[2022-12-20] MEDS: Meloxicam 15 MG Tablet PO (10:37)
[2022-12-20 11:16] LABS: Bedside Glucose 111 mg/dL (74-106)
--- NOTE | 2022-12-20 11:26 | CASEMGMT ---
Addendum entered by Linda Fitzgerald 12/20/22 12:06: Social Work SW completed hospital exemption in [facility]. SW sent this along w/all discharge instructions to [facility] via [facility]. SW set up a 2pm ambulance to picker and sorter load and unload pt w/Physicians. SW let [facility] know pickup time via [facility]. SW let bedside RN know. Pt's guardian Juan Johnson called back, let him know that pickup time is set up for 2pm. SW let Juan know that pt would like to be closer to [place], had informed SW that her parents are here in [place], SW inquired w/Juan if parents are still alive, they are not. He states her being in [place] is a catch 22 as she was going out from [facility] to buy alcohol. Juan states they did try [place] and [place], but they both said no. He states she needs a little bit more of a better track record, and then can possibly try someplace closer to [place] again. SW explained pt may speak w/him about this, Juan states understanding. SW let pt know she is set up to leave here at 2pm to [facility]. SW explained did speak w/her guardian about her staying closer to [place], and encouraged her to speak w/him about this. Pt states, I'm never speaking to Juan again. Support given. Pt to [facility] today, private pay, pickup 2pm. EM Bailey Original Note: Social Work Pt to go to [facility] today, private pay. SW spoke w/pt about the plan. SW explained she is going back to [facility], that [facility] will not take her back. Pt states is refusing to go to [facility]. SW explained she cannot return to [facility] as it is this SW's understanding she has been going out and drinking. Pt states that this is not true. She states the guardian is lying. SW offered support to pt, explained that a couple of other nursing homes closer to here were tried and pt was not accepted. Pt states she wants to stay in [place], states her parents still live here. She states they are 100 years old. SW explained can call the guardian to see what he says. SW called the guardian, message left. SW explained to pt that unfortunately, the guardian does make the determination on where she goes, she states he wants to move her so he doesn't have to drive as far. SW offered support. After further conversation, pt agreeable to [facility] today. SW encouraged her to speak w/her guardian about moving her closer to [place] once she is stronger. Pt states understanding. SW explained to pt will call guardian again before she is discharged and leave a message to follow up w/her. Pt states understanding. SW will get pt set up to go to [facility] today. EM Bailey
--- NOTE | 2022-12-20 11:45 | PCM.DC.SUM ---
Providers Date of Admission: 12/17/22 Date of Discharge: 12/20/22 Primary Care Physician: Terri Saldaña, HISTOLOGY AIDE-C Reason For Visit: ETOH ABUSE Diagnosis Discharge Diagnosis (1) Alcohol abuse: Status: Inactive Code(s): F10.10 - Alcohol abuse, uncomplicated Plan The patient is a 72 y/o F was admitted for acute alcohol withdrawal. #1. Acute alcohol withdrawal syndrome with history of chronic alcohol use disorder dependence and tolerance: Patient is being on the MedSurg floor. Patient on phenobarbital based order set along with other adjunctive medications as needed for alcohol withdrawal symptom control. CIWA monitor. Patient states he does not drink regularly but once in a while all the hard time getting the exact amount, frequency and drinking pattern. Does not have tremor. No acute seizure. Maintain on thiamine as well as folic acid. 12/19: Patient had phenobarbital 100 minutes sleeping. CIWA score 11 last night and today 3. No right lower quadrant tenderness. 12/20:Discussed with case manage, SW AND RN. The patient alcohol withdrawal is controlled and CIWA score is low. Pt denies hallucinations or illusions but as per RN, she had yesterday evening. H/o delusional disorder. The patient is discharged to residential. #2. Diabetes mellitus type II: Hold oral regimen, on ADA diet, accu checks w/ ISS. Since last admission glucose 600. #3. Psoriatic arthritis: Not on any home medication specific or sciatic there arthritis or Biologics. Chronic back pain leading to significant alcohol intake. #4. Chronic back pain: PT and OT ordered. Follow with PCP/spine surgeon. #5. Anxiety and depression/bipolar disorder/chronic delusional disorder: continue patient home fluoxetine #6. Tobacco Abuse: Encouraged cessation. On nicotine patch #7. dyslipidemia: Continue patient on statin therapy. #8. Allergic rhinitis: continue patient home loratadine regimen. #9. DVT prophylaxis: Low risk for current presentation plan of care as noted. #10. CODE status: Patient does not have healthcare power of substation operator automatic nor living will in place but notes that her decision-maker if necessary would be her brother. Full Code. Medications at Discharge Home Medications dicyclomine 10 mg capsule 20 mg (2 x 10 mg) PO Q6H PRN PRN abdominal discomfort 07/01/20 folic acid 1 mg tablet 1 mg PO DAILY@0800 see pcp 07/01/20 menthol 0.44 %-zinc oxide 20.6 % topical ointment 1 applic topical TID pcp 07/01/20 metoprolol tartrate 25 mg tablet 25 mg PO BID see pcp 07/01/20 nutrition tx glu intol,lac-free,soy-fiber 0.06 gram-1.2 kcal/mL liquid 120 ml PO 4X/DAY pcp 07/01/20 sennosides 8.6 mg-docusate sodium 50 mg tablet 2 tab PO BID PRN PRN Constipation 07/01/20 thiamine HCl (vitamin B1) 100 mg tablet 100 mg PO DAILYCM pcp 07/01/20 trazodone 100 mg tablet 100 mg PO QHS PRN Insomnia 07/01/20 atorvastatin 20 mg tablet 20 mg PO DAILY pcp 12/14/22 ferrous sulfate 325 mg (65 mg iron) tablet (FeroSul) 325 mg PO DAILY see pcp 12/14/22 metformin 1,000 mg tablet 1,000 mg PO BID DM 12/14/22 carboxymethylcellulose sodium 0.5 % eye drops in a dropperette (Refresh Plus) 1 drp EACH EYE BID pcp 12/17/22 cetirizine 10 mg tablet (24Hour Allergy) 10 mg PO QHS PRN pcp 12/17/22 cholecalciferol (vitamin D3) 125 mcg (5,000 unit) tablet (Vitamin D3) 5,000 unit PO QWEEK pcp 12/17/22 cyanocobalamin (vitamin B-12) 1,000 mcg tablet (Vitamin B-12) 1,000 mcg PO DAILY pcp 12/17/22 fluvoxamine 25 mg tablet 25 mg PO BID pcp 12/17/22 melatonin 3 mg tablet 6 mg PO QHS sleep 12/17/22 omeprazole 20 mg capsule,delayed release 20 mg PO DAILY pcp 12/17/22 acetaminophen 500 mg tablet 1,000 mg (2 x 500 mg) PO Q8 PRN pcp #0 tabs 12/20/22 meloxicam 15 mg tablet 7.5 mg (1/2 x 15 mg) PO DAILY PRN see pcp 30 days #0 tabs 12/20/22 Physical Exam Narrative Seen and examined on the day of discharge. No acute complanit Physical exam General: AAO x3. BMI 19.5 kg/m? HEENT: Atraumatic, PERRLA, EOMI, Normocephalic Oral: No Gingival or Mucosal Lesions/ Ulcerations Neck: Supple, No JVD, Negative Carotid Bruits Lungs: Air entry diminished in bilateral lung bases. No crepitation/rhonchi Cardiovascular: Regular rate, Regular Rhythm, Normal S1, Normal S2, No murmurs Abdomen: Bowel Sounds Present, Soft, Non Tender, Non-Distended : No renal angle tenderness. No suprapubic tenderness. Extremities: No edema, Capillary Refill Less than 3 Seconds Skin: No rashes, No breakdown Musculoskeletal: No focal tenderness to Palpation of Joints. No muscle tenderness. No tremors. Neurological: Cranial nerves II-XII grossly intact, DTR 2+/4 and Symmetrical, chronic mild protein calorie malnutrition. Psych/Mental Status: Flat affect. Delusional disorder. Weight / BMI Weight Weight: 125 lb 1.6 oz Body Mass Index (BMI) 19.6 ABG / Lab / Microbiology Data 12/17/22 16:35 12/17/22 16:35 Meaningful Use Info Meaningful Use Diagnoses (Choose all that apply): None applicable Discharge Plan Admission Admit Date/Time: 12/17/22 19:40 Primary Reason for Your Visit: acute alcohol withdrawal syndrome, resolved Attending Provider: Salbador Jacome Primary Care Provider: Terri Saldaña HISTOLOGY AIDE Consulting Providers: Annita Li Instructions Additional Instructions / Restrictions: Follow-up with racket stringer, Dr. Garcia for psoriatic arthritis in 1 month Discharge Orders/Prescriptions Prescriptions: Continued sennosides-docusate sodium 1 TABLET tablet 2 tab PO BID PRN PRN (Reason: Constipation) 0RF thiamine HCl (vitamin B1) 100 MG tablet 100 mg PO DAILYCM 0RF trazodone 100 MG tablet 100 mg PO QHS PRN (Reason: Insomnia) 0RF folic acid 1 MG tablet 1 mg PO DAILY@0800 0RF dicyclomine 10 MG capsule 20 mg PO Q6H PRN PRN (Reason: abdominal discomfort) 0RF metoprolol tartrate 25 MG tablet 25 mg PO BID 0RF nut.tx.gluc intol,lf,soy-fiber 120 ML liquid 120 ml PO 4X/DAY 0RF menthol-zinc oxide 1 APPLIC ointment 1 applic TOPICAL TID 0RF Protocol: *Topical Application Instructions APPLICATION INSTRUCTIONS: To coccyx atorvastatin 20 mg tablet 20 mg PO DAILY ferrous sulfate [FeroSul] 325 mg (65 mg iron) tablet 325 mg PO DAILY metformin 1,000 mg tablet 1,000 mg PO BID melatonin 3 mg tablet 6 mg PO QHS cetirizine [24Hour Allergy] 10 mg tablet 10 mg PO QHS PRN (Reason: pcp) fluvoxamine 25 mg tablet 25 mg PO BID omeprazole 20 mg capsule,delayed release(DR/EC) 20 mg PO DAILY carboxymethylcellulose sodium [Refresh Plus] 0.5 % dropperette 1 drp EACH EYE BID cyanocobalamin (vitamin B-12) [Vitamin B-12] 1,000 mcg tablet 1,000 mcg PO DAILY cholecalciferol (vitamin D3) [Vitamin D3] 125 mcg (5,000 unit) tablet 5,000 unit PO QWEEK Changed meloxicam 15 mg tablet 7.5 mg PO DAILY PRN (Reason: see pcp) 30 Days Qty: 0 0RF acetaminophen 500 MG tablet 1,000 mg PO Q8 PRN (Reason: pcp) Qty: 0 0RF Rx Instructions: for back pain Discontinued metronidazole 500 MG tablet 500 mg PO TID Qty: 21 0RF vancomycin in dextrose 5 % 1,000 MG/200 ML piggyback 1,000 mg IV Q12H Qty: 14 0RF Rx Instructions: stop date 07/07/20 dx: R hip infection weekly bmp, cbc, and vanc trough, fax to [phone] enoxaparin 40 MG/0.4 ML syringe 40 mg SC DAILY@0600 0RF ghplu-[id number]-[id number]-[id number]-xsm 1 PACKET packet 1 packet PO BIDCM 0RF levofloxacin 500 MG tablet 500 mg PO DAILY@0600 Qty: 5 0RF prednisone 20 mg tablet 40 mg PO DAILY Qty: 10 0RF prednisone 20 mg tablet 40 mg PO DAILY Qty: 8 0RF loratadine 10 mg capsule 10 mg PO DAILY ceftriaxone 2 GM recon soln 2 g IV Q24 Referrals / Follow Up: Terri Saldaña HISTOLOGY AIDE, HISTOLOGY AIDE-C [Primary Care Provider] - Within 2 Weeks Disposition Disposition (needs filled in before D/C Order can be placed): [facility] Facility Charges/Coding Visit Charges Inpatient E&M: 64535 Disch Hosp >30min
--- NOTE | 2022-12-20 12:17 | PHA.DC.MR.R ---
Pharmacy [facility] Med Reconciliation Pharmacy Service has performed discharge medication reconciliation for this patient upon transfer to [facility]. The patient's discharge medication list was reviewed for discrepancies and discrepancies were resolved. Medications at Discharge Home Medications dicyclomine 10 mg capsule 20 mg (2 x 10 mg) PO Q6H PRN PRN abdominal discomfort 07/01/20 folic acid 1 mg tablet 1 mg PO DAILY@0800 see pcp 07/01/20 menthol 0.44 %-zinc oxide 20.6 % topical ointment 1 applic topical TID pcp 07/01/20 metoprolol tartrate 25 mg tablet 25 mg PO BID see pcp 07/01/20 nutrition tx glu intol,lac-free,soy-fiber 0.06 gram-1.2 kcal/mL liquid 120 ml PO 4X/DAY pcp 07/01/20 sennosides 8.6 mg-docusate sodium 50 mg tablet 2 tab PO BID PRN PRN Constipation 07/01/20 thiamine HCl (vitamin B1) 100 mg tablet 100 mg PO DAILYCM pcp 07/01/20 trazodone 100 mg tablet 100 mg PO QHS PRN Insomnia 07/01/20 atorvastatin 20 mg tablet 20 mg PO DAILY pcp 12/14/22 ferrous sulfate 325 mg (65 mg iron) tablet (FeroSul) 325 mg PO DAILY see pcp 12/14/22 metformin 1,000 mg tablet 1,000 mg PO BID DM 12/14/22 carboxymethylcellulose sodium 0.5 % eye drops in a dropperette (Refresh Plus) 1 drp EACH EYE BID pcp 12/17/22 cetirizine 10 mg tablet (24Hour Allergy) 10 mg PO QHS PRN pcp 12/17/22 cholecalciferol (vitamin D3) 125 mcg (5,000 unit) tablet (Vitamin D3) 5,000 unit PO QWEEK pcp 12/17/22 cyanocobalamin (vitamin B-12) 1,000 mcg tablet (Vitamin B-12) 1,000 mcg PO DAILY pcp 12/17/22 fluvoxamine 25 mg tablet 25 mg PO BID pcp 12/17/22 melatonin 3 mg tablet 6 mg PO QHS sleep 12/17/22 omeprazole 20 mg capsule,delayed release 20 mg PO DAILY pcp 12/17/22 acetaminophen 500 mg tablet 1,000 mg (2 x 500 mg) PO Q8 PRN pcp #0 tabs 12/20/22 meloxicam 15 mg tablet 7.5 mg (1/2 x 15 mg) PO DAILY PRN see pcp 30 days #0 tabs 12/20/22
[2022-12-20] MEDS: Phenobarbital 32.4 MG Tablet 64.8 MG PO (12:43)
[2022-12-20] MEDS: Gabapentin 300 MG Capsule PO (12:43)
[2022-12-20 13:44] VITALS: BP 134/78; PULSE 70; RESP 16; TEMP 37.1; O2SAT 98
--- NOTE | 2022-12-20 14:44 | NURSING ---
Report attempted to be given to Nurse at [facility] -[phone]. Was on hold for 12 minutes. Will attempt to call back for report.
== END 2022-12-20 14:20 | DRG 897 ==
LOC: ED 19:30 → MS3 20:03
PROVIDERS: Admitting Provider Family Medicine; Emergency Provider Student in an Organized Health Care Education/Training Program; PCP Nurse Practitioner Adult Health; Visit Provider Internal Medicine
DX: F10.239 Alcohol dependence with withdrawal, unspecified (principal); E11.649 Type 2 diabetes mellitus with hypoglycemia without coma; F22 Delusional disorders; F31.9 Bipolar disorder, unspecified; L40.50 Arthropathic psoriasis, unspecified; F10.229 Alcohol dependence with intoxication, unspecified; F17.210 Nicotine dependence, cigarettes, uncomplicated; E78.5 Hyperlipidemia, unspecified; M54.9 Dorsalgia, unspecified; J30.9 Allergic rhinitis, unspecified; M79.7 Fibromyalgia; I10 Essential (primary) hypertension; Y90.8 Blood alcohol level of 240 mg/100 ml or more; G89.29 Other chronic pain; Z79.01 Long term (current) use of anticoagulants; Z79.84 Long term (current) use of oral hypoglycemic drugs; Z79.899 Other long term (current) drug therapy
CPT/HCPCS: 80053; 80307; 81001; 82077; 82962; 83690; 83735; 84100; 85025; 93005; 99285; 99406; J7120; A4216